=== PATIENT | male | born 1945 | race Caucasian/White ===

== ENCOUNTER 2024-04-25 15:46 | Inpatient (IN) ==
--- NOTE | 2024-04-25 16:31 | Emergency Department Note ---
Impression & Plan Acute dyspnea, Acute hypoxemic respiratory failure, Pulmonary edema, Supratherapeutic INR ED Provider Note HISTORY OF PRESENT ILLNESS: Patient is a 78-year-old male presenting with shortness of breath. Patient reports that he has been having progressively worsening shortness of breath over the last few days. He reports that he is from [place] and has not had any recent sick contact exposures that he is aware of. He does not wear any supplemental oxygen at baseline. Reports that today he was seen by an DIRECTOR OF STATE at [place] [facility] and they recommended he come to the emergency department. Patient reports shortness of breath is worse with exertion. Reports he is only able to take about 10 steps before he has to stop secondary to his shortness of breath. Denies any significant cough. Denies any chest pain. Denies any lightheadedness or dizziness with this shortness of breath. He is on Coumadin for history of A-fib. Denies any history of DVT or PE. Denies any history of cardiac stents. He denies any significant lower extremity edema. Patient reports he recently tested positive for C. difficile. He reports he finishes course of antibiotics 48 hours ago. Patient reports that he was told to hold his Coumadin because his INR levels were high today. ROS: as above PHYSICAL EXAM: Constitutional: Patient appears in no acute distress. HENT: Head: Normocephalic and atraumatic. Eyes: EOMI, PERRL Mouth/Throat: Mucous membranes moist. Neck: Trachea midline. Neck supple. Cardiovascular: Irregular rhythm. No murmurs, rubs or gallops. Intact distal pulses. Pulmonary/Chest: No respiratory distress. Decreased breath sounds throughout lung bean. Patient is conversationally dyspneic. Abdominal: Abdomen soft, no tenderness, rebound or guarding. Musculoskeletal: No edema, tenderness or deformity noted. Skin: Warm and dry. No rash, erythema, pallor or cyanosis Psychiatric: Appropriate mood and affect for situation. Neurological: Alert and keenly responsive. CN II-XII grossly intact, moving all extremities equally and fully. MDM: - Vitals signs showed hypoxic on room air. Patient placed on 6 L nasal cannula. - History obtained via patient. History as above. - Chronic conditions affecting care: HTN; Afib - Differential diagnoses include, but are not limited to: Congestive heart failure; acute coronary syndrome; COPD/asthma exacerbation; pulmonary edema; pulmonary embolism; pneumonia; pneumothorax; viral syndrome - Order placed for continuous cardiac monitoring. At this time, monitor showed rate of 79 bpm with normal sinus rhythm, per my interpretation. - External medical records reviewed. - EKG interpreted by myself showed atrial fibrillation. Rate 85 bpm. QT 460. No acute ischemic changes. - Laboratory workup interpreted by myself showed normal WBC; anemia (Hgb 9.4); elevated INR (9.2); stable electrolytes; normal troponin; elevated BNP (208) - Viral respiratory panel negative - CXR showed moderate pulmonary edema, per my interpretation. Radiology notes small bilateral pleural effusions and left greater than right perihilar airspace opacities. - UA negative for infection - Patient given 40 mg IV lasix for his pulmonary edema and increasing oxygen requirement. - Patient's oxygen requirement increased from 6 L nasal cannula to 9 L. He was attempted to be placed on BiPAP, but the patient did not tolerate. He was transition to high flow nasal cannula and is saturating 95% on room air. - Discussion was had with case assembler about patient's case and need for admission - Hospitalist consulted for admission - [facility]. I have personally spent 61 minutes of critical care time in the direct management of this patient. This includes bedside care, interpretation of diagnostic studies, and testing, discussion with consultants, patient, and family members, and other required patient management activities. This 61 minutes is in excess of all separately billable procedures. ASSESSMENT AND PLAN: Diagnosis: Acute dyspnea; acute hypoxic respiratory failure; pulmonary edema; supratherapeutic INR Plan: Admit Past Med/Surg History Problem List (Updated 04/25/24 @ 19:49 by Jill Brown PA-C) Supratherapeutic INR (Acute) Pulmonary edema (Acute) Acute hypoxemic respiratory failure (Acute) Acute dyspnea (Acute) Medical History (Updated 04/25/24 @ 19:49 by Jill Brown PA-C) Mild intermittent asthma PAF (paroxysmal atrial fibrillation) CAD (coronary artery disease) Squamous cell carcinoma of parotid Chronic CHF HTN (hypertension) HLD (hyperlipidemia) Surgical History (Updated 04/25/24 @ 19:50 by Jill Brown PA-C) Hx of fracture of hip Right s/p fixation Hx of tonsillectomy History of parotidectomy Left wide local excision, left parotidectomy, left neck dissection, submental island flap reconstruction, and STSG to the left ear canal on 04/27/23. - Final pathology [id number]. Tumor board recommendation for adjuvant radiation, compelted July 2023. - Reconstruction of left wound dehiscence with temporalis flap, postauricular cervicofacial advancement flap, and skin grafting on 12/12/23. Concurrent meatoplasty, canalplasty, and skin grafting with Dr. Garcia. Social History Smoking Status: Former smoker Feels Safe at Home: Yes Results & Data (ED) Vital Signs Vital Signs - 24 hr 04/25/24 16:04 04/25/24 16:36 04/25/24 16:48 Temperature 36.0 C L Temperature Source Temporal Artery Scan Pulse Rate 71 72 Pulse Rate [Apical] Pulse Rate from SpO2 Sensor 73 Respiratory Rate 24 35 H Respiratory Effort / Characteristics Non-Labored Spontaneous Respiratory Depth Normal Respiratory Pattern Regular Blood Pressure 120/64 145/73 H Blood Pressure Mean 82 122 Pulse Oximetry 93 84 L Oxygen Delivery Method Nasal Cannula Oxygen Flow Rate 6 Fraction of Inspired Oxygen Sepsis Recent Fever Within 48 Hours No Sepsis New/Unexplained Change in Mental Status No Sepsis Action Taken by Nursing No Action Required Oxygen Flow Rate - Titration Pulse Oximetry Post Tiitration 04/25/24 17:00 04/25/24 17:00 04/25/24 17:00 Temperature Temperature Source Pulse Rate 63 Pulse Rate [Apical] Pulse Rate from SpO2 Sensor 64 Respiratory Rate 24 Respiratory Effort / Characteristics Respiratory Depth Respiratory Pattern Blood Pressure 149/81 H 149/81 H Blood Pressure Mean 123 123 Pulse Oximetry 97 Oxygen Delivery Method Oxymask Oxygen Flow Rate 10 Fraction of Inspired Oxygen Sepsis Recent Fever Within 48 Hours Sepsis New/Unexplained Change in Mental Status Sepsis Action Taken by Nursing Oxygen Flow Rate - Titration Pulse Oximetry Post Tiitration 04/25/24 17:01 04/25/24 17:14 04/25/24 17:27 Temperature Temperature Source Pulse Rate 77 Pulse Rate [Apical] Pulse Rate from SpO2 Sensor 75 Respiratory Rate 22 Respiratory Effort / Characteristics Respiratory Depth Respiratory Pattern Blood Pressure Blood Pressure Mean Pulse Oximetry 76 L 93 92 Oxygen Delivery Method Oxymask Aerosol Mask Oxymask Oxygen Flow Rate 0 10 10 Fraction of Inspired Oxygen Sepsis Recent Fever Within 48 Hours Sepsis New/Unexplained Change in Mental Status Sepsis Action Taken by Nursing Oxygen Flow Rate - Titration 11 Pulse Oximetry Post Tiitration 90 04/25/24 17:31 04/25/24 17:34 04/25/24 17:36 Temperature Temperature Source Pulse Rate 79 Pulse Rate [Apical] 74 Pulse Rate from SpO2 Sensor 76 Respiratory Rate 22 14 Respiratory Effort / Characteristics Spontaneous Respiratory Depth Respiratory Pattern Blood Pressure 113/87 Blood Pressure Mean 89 Pulse Oximetry 95 Oxygen Delivery Method High Flow Nasal Cannula Oxygen Flow Rate 25 Fraction of Inspired Oxygen 70 Sepsis Recent Fever Within 48 Hours Sepsis New/Unexplained Change in Mental Status Sepsis Action Taken by Nursing Oxygen Flow Rate - Titration Pulse Oximetry Post Tiitration 04/25/24 18:00 04/25/24 18:01 04/25/24 18:31 Temperature Temperature Source Pulse Rate 66 Pulse Rate [Apical] Pulse Rate from SpO2 Sensor 65 Respiratory Rate 25 H Respiratory Effort / Characteristics Respiratory Depth Respiratory Pattern Blood Pressure 142/74 H 148/64 H Blood Pressure Mean 105 102 Pulse Oximetry 98 Oxygen Delivery Method Oxygen Flow Rate Fraction of Inspired Oxygen Sepsis Recent Fever Within 48 Hours Sepsis New/Unexplained Change in Mental Status Sepsis Action Taken by Nursing Oxygen Flow Rate - Titration Pulse Oximetry Post Tiitration 04/25/24 18:42 04/25/24 19:09 04/25/24 19:30 Temperature Temperature Source Pulse Rate 76 82 66 Pulse Rate [Apical] Pulse Rate from SpO2 Sensor 76 Respiratory Rate 23 23 Respiratory Effort / Characteristics Respiratory Depth Respiratory Pattern Blood Pressure Blood Pressure Mean Pulse Oximetry 98 97 Oxygen Delivery Method Oxygen Flow Rate Fraction of Inspired Oxygen Sepsis Recent Fever Within 48 Hours Sepsis New/Unexplained Change in Mental Status Sepsis Action Taken by Nursing Oxygen Flow Rate - Titration Pulse Oximetry Post Tiitration Laboratory Data 04/25/24 16:21 04/25/24 16:21 Lab Results 04/25/24 04/25/24 04/25/24 Range/Units 16:21 17:00 17:58 WBC 10.44 (4.8-10.8) K/ul RBC 3.46 L (4.70-6.10) M/uL Hgb 9.4 L (14.0-18.0) g/dl Hct 30.6 L (42.0-52.0) % MCV 88.4 (80.0-100.0) fL MCH 27.2 (25.0-34.0) pg MCHC 30.7 L (32.0-36.0) g/dL RDW Std Deviation 55.8 H (36.4-46.3) fL RDW Coeff of [place] 17.2 H (11.5-14.5) % Plt Count 262 (130-400) K/uL MPV 9.5 (9.4-12.4) fL Immature Gran % (Auto) 0.4 % Neut % (Auto) 76.2 % Lymph % (Auto) 6.2 % [place] % (Auto) 9.8 % Eos % (Auto) 6.8 % Baso % (Auto) 0.6 % Neut # (Auto) 7.96 H (1.40-6.50) K/uL Lymph # (Auto) 0.65 L (1.20-3.40) K/uL [place] # (Auto) 1.02 H (0.11-0.59) K/uL Eos # (Auto) 0.71 H (0.00-0.50) K/uL Baso # (Auto) 0.06 (0.00-0.20) K/uL Immature Gran # (Auto) 0.04 (0.01-0.20) K/uL PT 82.1 H (9.0-12.0) Seconds INR 9.2 H* (0.9-1.1) Sodium 140 (136-145) mmol/L Potassium 4.7 (3.5-5.1) mmol/L Chloride 106 (98-107) mmol/L Carbon Dioxide 25 (21-32) mmol/L Anion Gap 9 (3-11) BUN 32 H (6-23) mg/dl Creatinine 1.36 (0.6-1.4) mg/dl Est Cr Clr Drug Dosing Not Reportable Est GFR ( Amer) 57.8 ml/min Est GFR (Non-Af Amer) 49.8 ml/min BUN/Creatinine Ratio 23.5 H (10-20) Glucose 104 H (70-99(Fasting)) mg/dl Calcium 9.7 (8.6-10.3) mg/dl Magnesium 2.1 (1.7-2.4) mg/dl Total Bilirubin 0.6 (0.2-1.0) mg/dl AST 15 (13-39) U/L ALT 8 (7-52) U/L Alkaline Phosphatase 70 (34-104) U/L Troponin I High Sens 9.4 (0-20) pg/ml B-Natriuretic Peptide 208 H (0-100) pg/ml Total Protein 7.3 (6.0-8.3) gm/dl Albumin 3.8 (3.4-5.0) gm/dl Globulin 3.5 (2.5-4.0) gm/dl Albumin/Globulin Ratio 1.1 (0.9-2) Urine Color Yellow Urine Appearance Clear (Clear) Urine pH 5.0 (4.5-7.5) Ur Specific [place] 1.010 (1.000-1.030) Urine Protein Trace H (Negative) Urine Glucose (UA) Negative (Negative) Urine Ketones Negative (Negative) Urine Blood Negative (Negative) Urine Nitrite Negative (Negative) Urine Bilirubin Negative (Negative) Urine Urobilinogen Negative (Negative) Ur Leukocyte Esterase Negative (Negative) Urine WBC (Auto) 0-5 (0-5) /hpf Urine RBC (Auto) 0-2 (0-2) /hpf U Hyaline Cast (Auto) 0-2 (0-2) /lpf U Epithel Cells (Auto) 0-2 (0-2) /hpf Urine Bacteria (Auto) None Seen (None Seen) Adenovirus (PCR) Not Detected (NotDetected) B. pertussis DNA (PCR) Not Detected (NotDetected) B.parapertussis DNA PCR Not Detected (NotDetected) C. pneumoniae DNA (PCR) Not Detected (NotDetected) Coronavirus OC43 (PCR) Not Detected (NotDetected) Coronavirus HKU1 (PCR) Not Detected (NotDetected) Coronavirus 229E (PCR) Not Detected (NotDetected) SARS-CoV-2 (PCR) Not Detected (NotDetected) Coronavirus NL63 (PCR) Not Detected (NotDetected) Human Metapneumovir PCR Not Detected (NotDetected) Influenza Type A (PCR) Not Detected (NotDetected) Influenza Type B (PCR) Not Detected (NotDetected) M. pneumoniae (PCR) Not Detected (NotDetected) Parainfluenza 1 (PCR) Not Detected (NotDetected) Parainfluenza 2 (PCR) Not Detected (NotDetected) Parainfluenza 3 (PCR) Not Detected (NotDetected) Parainfluenza 4 (PCR) Not Detected (NotDetected) RSV (PCR) Not Detected (NotDetected) Entero/Rhino (PCR) Not Detected (NotDetected) Administered Medications Discontinued Medications Furosemide (Furosemide 40 Mg/4 Ml Vial) 40 mg IV ONE ONE Stop: 04/25/24 16:54 Last Admin: 04/25/24 17:05 Dose: 40 mg Documented By: BRUCE Imaging Data Radiologist's Impression: Chest X-Ray 04/25/24 16:15 XR chest 1V portable HISTORY: Dyspnea COMPARISON: None. FINDINGS: Rotated study. No pneumothorax. The heart is enlarged. There are low lung volumes. There is perihilar interstitial/vascular thickening consistent with pulmonary edema. There are small bilateral pleural effusions. No acute fractures identified. There are calcifications within the aortic knob. Left greater than right perihilar airspace opacities. IMPRESSION: 1. Cardiomegaly with moderate pulmonary edema and small bilateral pleural effusions. 2. Left greater than right perihilar airspace opacities. This likely represents asymmetric pulmonary edema. A superimposed pneumonia would be difficult to exclude. ACT 112: Negative or not required by law. Electronically signed by: Adal Aranda M.D. 04/25/2024 5:31 PM Discharge Plan Visit Data Chief Complaint: Shortness of Breath/Dyspnea Stated Complaint: SOB ED Provider: Ashlee Lau Discharge Problem: Acute dyspnea, Acute hypoxemic respiratory failure, Pulmonary edema, Supratherapeutic INR Forms Stand Alone Forms: [facility] Referrals Referrals: PCP,NO [Physician] -
[2024-04-25 16:47] LABS: Basophils # (auto) 0.06 K/uL (0.00-0.20); Basophils % (auto) 0.6 %; Eosinophils # (auto) 0.71 K/uL (0.00-0.50); Eosinophils % (auto) 6.8 %; Hematocrit (blood only) 30.6 % (42.0-52.0); Hemoglobin 9.4 g/dl (14.0-18.0); Immature Granulocytes # (auto) 0.04 K/uL (0.01-0.20); Immature Granulocytes % (auto) 0.4 %; Lymphocytes # (auto) 0.65 K/uL (1.20-3.40); Lymphocytes % (auto) 6.2 %; Mean Corpuscular Hemoglobin 27.2 pg (25.0-34.0); Mean Corpuscular Hgb Conc 30.7 g/dL (32.0-36.0); Mean Corpuscular Volume 88.4 fL (80.0-100.0); Mean Platelet Volume 9.5 fL (9.4-12.4); Monocytes # (auto) 1.02 K/uL (0.11-0.59); Monocytes % (auto) 9.8 %; Neutrophils # (auto) 7.96 K/uL (1.40-6.50); Neutrophils % (auto) 76.2 %; Platelet Count 262 K/uL (130-400); RDW Coefficient of Variation 17.2 % (11.5-14.5); RDW Standard Deviation 55.8 fL (36.4-46.3); Red Blood Count 3.46 M/uL (4.70-6.10); White Blood Count 10.44 K/ul (4.8-10.8)
[2024-04-25 16:51] LABS: Alanine Aminotransferase 8 U/L (7-52); Albumin Globulin Ratio 1.1 (0.9-2); Albumin Level 3.8 gm/dl (3.4-5.0); Alkaline Phosphatase 70 U/L (34-104); Anion Gap 9 (3-11); Aspartate Aminotransferase 15 U/L (13-39); BUN Creatinine Ratio 23.5 (10-20); Bilirubin,Total 0.6 mg/dl (0.2-1.0); Blood Urea Nitrogen 32 mg/dl (6-23); Calcium 9.7 mg/dl (8.6-10.3); Carbon Dioxide 25 mmol/L (21-32); Chloride 106 mmol/L (98-107); Est GFR (African American) 57.8 ml/min; Est GFR (Non-African American) 49.8 ml/min; Globulin 3.5 gm/dl (2.5-4.0); Glucose 104 mg/dl (70-99(Fasting)); Magnesium 2.1 mg/dl (1.7-2.4); Potassium 4.7 mmol/L (3.5-5.1); Sodium 140 mmol/L (136-145); Total Protein 7.3 gm/dl (6.0-8.3)
[2024-04-25 16:59] LABS: Troponin I High Sensitivity 9.4 pg/ml (0-20)
[2024-04-25 17:00] LABS: Prothrombin Time 82.1 Seconds (9.0-12.0)
[2024-04-25] MEDS: FUROSEMIDE 40 MG/4 ML VIAL IV ONE (17:05)
--- NOTE | 2024-04-25 17:33 | XRay Report ---
XR chest 1V portable HISTORY: Dyspnea COMPARISON: None. FINDINGS: Rotated study. No pneumothorax. The heart is enlarged. There are low lung volumes. There is perihilar interstitial/vascular thickening consistent with pulmonary edema. There are small bilatera l pleural effusions. No acute fractures identified. There are calcifications within the aortic knob. Left greater than right perihilar airspace opacities. IMPRESSION: 1. Cardiomegaly with moderate pulmonary edema and small bilateral pleural effusions. 2. Left greater than right perihilar airspace opacities. This likely represents asymmetric pulmonary edema. A superimposed pneumonia would be difficult to exclude. ACT 112: Negative or not required by law. Electronically signed by: Adal Aranda M.D. 04/25/2024 5:31 PM
[2024-04-25 17:38] LABS: INR 9.2 (0.9-1.1)
[2024-04-25 18:01] LABS: Adenovirus PCR Not Detected (NotDetected); Bordetella parapertussis PCR Not Detected (NotDetected); Bordetella pertussis PCR Not Detected (NotDetected); Chlamydia pneumoniae PCR Not Detected (NotDetected); Coronavirus 229E PCR Not Detected (NotDetected); Coronavirus CoV-2 (COVID19)PCR Not Detected (NotDetected); Coronavirus HKU1 PCR Not Detected (NotDetected); Coronavirus NL63 PCR Not Detected (NotDetected); Coronavirus OC43PCR Not Detected (NotDetected); Human Metapneumovirus PCR Not Detected (NotDetected); Influenza A PCR Not Detected (NotDetected); Influenza B PCR Not Detected (NotDetected); Mycoplasma pneumoniae PCR Not Detected (NotDetected); Parainfluenza Virus 1 PCR Not Detected (NotDetected); Parainfluenza Virus 2 PCR Not Detected (NotDetected); Parainfluenza Virus 3 PCR Not Detected (NotDetected); Parainfluenza Virus 4 PCR Not Detected (NotDetected); Respiratory Syncytial VirusPCR Not Detected (NotDetected); Rhinovirus/Enterovirus PCR Not Detected (NotDetected)
[2024-04-25 18:12] LABS: Appearance Urine Clear (Clear); Bacteria Urine Automated None Seen (None Seen); Bilirubin Urine Negative (Negative); Blood Urine Negative (Negative); Cast Urine Automated 0-2 /lpf (0-2); Color Urine Yellow; Epithelial Cell Urine Auto 0-2 /hpf (0-2); Glucose Urine UA Negative (Negative); Ketones Urine Negative (Negative); Leukocyte Esterase Urine Negative (Negative); Nitrite Urine Negative (Negative); Protein Urine Trace (Negative); RBC Urine Automated 0-2 /hpf (0-2); Urobilinogen Urine Negative (Negative); WBC Urine Automated 0-5 /hpf (0-5)
--- NOTE | 2024-04-25 19:50 | History & Physical Report ---
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 Garcia who presents to ED 2/2 worsening SOB over the last 3-4 days. Acute hypoxic respiratory failure Acute on chronic decompensated diastolic CHF Pulmonary Edema admit to PCU IV Lasix 40mg BID update echo, last in november with preserved EF, mod TR weights from [facility] show an increase in weight from 02/18 105kg --> 115kg, no weight on record here yet; clinically he is overloaded daily weights, I and O Pt refusing bipap, continue highflow for now, monitor vbg, consult cardiology pt previously on lasix 40mg daily; however at some point in the last 2 months this medication got discontinued; also reports 2 quarts of water a day Supratherapeutic INR PAF hold warfarin, give 2.5mg vit K, pt reports some blood in sputum continue metoprolol, tele monitoring HTN: chronic, stable - pt on amlodipine, lisinopril HLD: chronic, stable - continue statin Hx of SCC of L parotid s/p resection, radiation, wound dehiscence and eventual reconstruction, 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 DVT ppx: none in setting of supratherapeutic INR FULL CODE PCP: Mely Dispo: admit to pcu Pt was seen and examined in collaboration with Dr. Pineda, please see addendum A total of 76 min was spent coordinating, documenting, and providing care for this patient excluding time spent in the performance of separately billed services. This included personally viewing all current laboratories and imaging studies, medication reconciliation, outpatient chart review, and discussion with specialists. History of Present Illness Chief Complaint: SOB x 3 days. 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 Garcia who presents to ED 2/2 worsening SOB over the last 3-4 days. Of significance has had a recent course of hospitalizations including he was recently hospitalized at [facility] on 01/23-01/27/24 for wound dehiscence of left auricular wound and Left Mastoid OM. He required PICC Placement and IV antibiotic therapy. He grew multiple organisms including bacteroids fragilis, MRSA. He completed course of IV Vanco. He since had been following with wound care in [place]. He was hospitalized in [place] on 02/14-02/20 for stroke work up. At that time he was transitioned to IV meropenem and dapto per nephro recommendations due to CLAUDY. He was then discharged to [facility]. Since that time he did have an episode of Cdiff. Pt reports worsening SOB over the last few days. He has it with exertion and at rest. He complains of orthopnea. He reports he use to be on lasix 40mg, but at some point he was told to quit taking in over the last month after being in an out of hospital/rehabs. He denies any f/c/s, chest pain, n/v/d, abd pain, change in bowel or urinary habits. He does have a cough and complains of occasional blood tinge sputum over the last 6 days. He reports his INR was high as an outpt and he was told to hold warfarin for the next few days. He recently got out of rehab and moved back to his apartment in personal care. In ED pt was hypoxic on room air in the 70s. CXR concerning for pulmonary edema. Pt refusing bipap and thefore placed on high flow nasal canal with adequate oxygenation. Lab work reveals h/h 9.4 and 30.6, INR 9.2, cr 1.36, BNP 208, negative UA and negative biofire. He was given 40mg IV lasix in ED Home Medications Medication Instructions Recorded Confirmed Type amlodipine 10 mg tablet 10 mg PO DAILY 04/25/24 04/25/24 History atorvastatin 20 mg tablet 20 mg PO DAILY 04/25/24 04/25/24 History ergocalciferol (vitamin D2) 1,250 1,250 mcg PO MO 04/25/24 04/25/24 History mcg (50,000 unit) capsule (Vitamin D2) lisinopril 10 mg tablet 10 mg PO DAILY 04/25/24 04/25/24 History metoprolol succinate 25 mg 25 mg PO DAILY 04/25/24 04/25/24 History tablet,extended release 24 hr omeprazole 20 mg tablet,delayed 20 mg PO DAILY 04/25/24 04/25/24 History release warfarin 5 mg tablet 5 mg PO SUTUTHSA 04/25/24 04/25/24 History warfarin 5 mg tablet 7.5 mg PO MOWEFR 04/25/24 04/25/24 History Past Med/Surg History Problem List (Updated 04/25/24 @ 20:31 by Jill Brown PA-C) Acute on chronic diastolic CHF (congestive heart failure) Supratherapeutic INR (Acute) Pulmonary edema (Acute) Acute hypoxemic respiratory failure (Acute) Acute dyspnea (Acute) Medical History (Updated 04/25/24 @ 20:31 by Jill Brown PA-C) Mild intermittent asthma PAF (paroxysmal atrial fibrillation) CAD (coronary artery disease) Squamous cell carcinoma of parotid Chronic CHF HTN (hypertension) HLD (hyperlipidemia) Surgical History (Updated 04/25/24 @ 19:50 by Jill Brown PA-C) Hx of fracture of hip Right s/p fixation Hx of tonsillectomy History of parotidectomy Left wide local excision, left parotidectomy, left neck dissection, submental island flap reconstruction, and STSG to the left ear canal on 04/27/23. - Final pathology [id number]. Tumor board recommendation for adjuvant radiation, compelted July 2023. - Reconstruction of left wound dehiscence with temporalis flap, postauricular cervicofacial advancement flap, and skin grafting on 12/12/23. Concurrent meatoplasty, canalplasty, and skin grafting with Dr. Garcia. Social History (Updated 04/25/24 @ 20:29 by Jill Brown PA-C) Smoking Status: Former smoker Hx Alcohol Use: No Preferred Language: Malagasy Feels Safe at Home: Yes Review of Systems Review of Systems: All systems reviewed & are unremarkable except as noted in HPI & below Physical Exam Physical Exam: please refer to Dr. Pineda addendum for physical exam findings. Results & Data Results & Data Vital Signs (Past 12 Hours) Vital Signs Temp Pulse Pulse Resp BP Pulse Ox O2 Del Method 04/25/24 17:36 79 14 04/25/24 17:34 74 22 95 High Flow Nasal Cannula 04/25/24 17:31 113/87 04/25/24 17:27 77 22 92 Oxymask 04/25/24 17:14 93 Aerosol Mask 04/25/24 17:01 76 L Oxymask 04/25/24 17:00 63 24 97 Oxymask 04/25/24 17:00 149/81 H 04/25/24 17:00 149/81 H 04/25/24 16:48 145/73 H 04/25/24 16:36 72 35 H 84 L 04/25/24 16:04 36.0 C L 71 24 120/64 93 Nasal Cannula O2 Flow Rate FiO2 04/25/24 17:36 04/25/24 17:34 25 70 04/25/24 17:31 04/25/24 17:27 10 04/25/24 17:14 10 04/25/24 17:01 0 04/25/24 17:00 10 04/25/24 17:00 04/25/24 17:00 04/25/24 16:48 04/25/24 16:36 04/25/24 16:04 6 Laboratory Results I have independently reviewed and interpreted patient's admitting labs including CBC, CMP, BNP, Trop, UA and biofire Diagnostic Findings Chest X-Ray 04/25/24 16:15 XR chest 1V portable HISTORY: Dyspnea COMPARISON: None. FINDINGS: Rotated study. No pneumothorax. The heart is enlarged. There are low lung volumes. There is perihilar interstitial/vascular thickening consistent with pulmonary edema. There are small bilateral pleural effusions. No acute fractures identified. There are calcifications within the aortic knob. Left greater than right perihilar airspace opacities. IMPRESSION: 1. Cardiomegaly with moderate pulmonary edema and small bilateral pleural effusions. 2. Left greater than right perihilar airspace opacities. This likely represents asymmetric pulmonary edema. A superimposed pneumonia would be difficult to exclude. ACT 112: Negative or not required by law. Electronically signed by: Adal Aranda M.D. 04/25/2024 5:31 PM Medications Administered Medication List Discontinued Medications Furosemide (Furosemide 40 Mg/4 Ml Vial) 40 mg IV ONE ONE Stop: 04/25/24 16:54 Last Admin: 04/25/24 17:05 Dose: 40 mg Documented By: BRUCE ECG Additional Comments: I have independently reviewed and interpreted patient's admitting EKG which revealed: 85 atrial fib with pvc qtc 547, RBBB COVID-19 Results Results COVID-19 Adm Lab Results: RBC 3.46 M/uL (4.70-6.10) L 04/25/24 WBC 10.44 K/ul (4.8-10.8) 04/25/24 Hgb 9.4 g/dl (14.0-18.0) L 04/25/24 Hct 30.6 % (42.0-52.0) L 04/25/24 Plt Count 262 K/uL (130-400) 04/25/24 Neutrophils (%) (Auto) 76.2 % 04/25/24 Lymphocytes (%) (Auto) 6.2 % 04/25/24 Monocytes # (Auto) 1.02 K/uL (0.11-0.59) H 04/25/24 Eosinophils # (Auto) 0.71 K/uL (0.00-0.50) H 04/25/24 Immature Granulocyte % (Auto) 0.4 % 04/25/24 Neutrophils # (Auto) 7.96 K/uL (1.40-6.50) H 04/25/24 Lymphocytes # (Auto) 0.65 K/uL (1.20-3.40) L 04/25/24 Monocytes # (Auto) 1.02 K/uL (0.11-0.59) H 04/25/24 Eosinophils # (Auto) 0.71 K/uL (0.00-0.50) H 04/25/24 Basophils # (Auto) 0.06 K/uL (0.00-0.20) 04/25/24 Immature Granulocyte # (Auto) 0.04 K/uL (0.01-0.20) 4 Na 140 mmol/L (136-145) 04/25/24 K 4.7 mmol/L (3.5-5.1) 04/25/24 Cl 106 mmol/L (98-107) 04/25/24 CO2 25 mmol/L (21-32) 04/25/24 Anion Gap 9 (3-11) 04/25/24 BUN 32 mg/dl (6-23) H 04/25/24 Creatinine 1.36 mg/dl (0.6-1.4) 04/25/24 BUN/Creatinine Ratio 23.5 (10-20) H 04/25/24 Glucose Level 104 mg/dl (70-99(Fasting)) H 04/25/24 Ca 9.7 mg/dl (8.6-10.3) 04/25/24 Total Bilirubin 0.6 mg/dl (0.2-1.0) 04/25/24 AST/SGOT 15 U/L (13-39) 04/25/24 ALT/SGPT 8 U/L (7-52) 04/25/24 Alkaline Phosphatase 70 U/L (34-104) 04/25/24 Total Protein 7.3 gm/dl (6.0-8.3) 04/25/24 Albumin 3.8 gm/dl (3.4-5.0) 04/25/24 Globulin 3.5 gm/dl (2.5-4.0) 04/25/24 Albumin/Globulin Ratio 1.1 (0.9-2) 04/25/24 INR 9.2 (0.9-1.1) H* 04/25/24 Adenovirus (PCR) Not Detected (NotDetected) 04/25/24 B. parapertussis DNA (PCR) Not Detected (NotDetected) 01/11 B. pertussis DNA (PCR) Not Detected (NotDetected) 04/25/24 C. pneumoniae DNA (PCR) Not Detected (NotDetected) Coronavirus Type OC43 (PCR) Not Detected (NotDetected) 01/11 Coronavirus Type HKU1 (PCR) Not Detected (NotDetected) 01/11 Coronavirus Type 229E (PCR) Not Detected (NotDetected) 01/11 COVID-19 PCR Not Detected (NotDetected) 04/25/24 Coronavirus Type NL63 (PCR) Not Detected (NotDetected) 01/11 Human Metapneumovirus (PCR) Not Detected (NotDetected) 01/11 Influenza Virus Type A (PCR) Not Detected (NotDetected) Influenza Virus Type B (PCR) Not Detected (NotDetected) M. pneumoniae (PCR) Not Detected (NotDetected) 04/25/24 Parainfluenza Type 1 (PCR) Not Detected (NotDetected) 01/11 Parainfluenza Type 2 (PCR) Not Detected (NotDetected) 01/11 Parainfluenza Type 3 (PCR) Not Detected (NotDetected) 01/11 Parainfluenza Type 4 (PCR) Not Detected (NotDetected) 01/11 RSV (PCR) Not Detected (NotDetected) 04/25/24 Enterovirus/Rhinovirus (PCR) Not Detected (NotDetected) Chest X-Ray 04/25/24 Code Status & VTE Plan Code Status FULL CODE Supervising Physician Co-Signing Physician Notes Patient is a 78-year-old male with history of coronary artery disease, squamous cell carcinoma of the left parotid gland S/P surgery and radiation, paroxysmal A-fib on chronic anticoagulation with Coumadin, chronic diastolic heart failure and other medical problems presents with history of worsening shortness of breath for the last few days. He also admits to have orthopnea, cough with expectoration with minimal hemoptysis. He was previously on Lasix which was discontinued due to worsening renal function per patient. He follows with [facility] cardiology . He was noted to have supratherapeutic INR as outpatient today and was instructed to hold Coumadin. He denies any other bleeding issues currently. He was found to be hypoxic in 70s while in ED and was placed on high flow oxygen. Patient refused BiPAP due to claustrophobia. He denies any chest pain, nausea, vomiting, abdominal pain, diarrhea, and dizziness. Patient states that he has been drinking a lot of water postsurgery as instructed. Please review HPI for complete details of presentation. I personally reviewed blood work and imaging studies. His INR is supratherapeutic 9.2. BNP elevated 208. Chronic anemia hemoglobin 9.4. Chest x-ray suggestive moderate pulmonary edema, small bilateral pleural effusions, perihilar opacities . EKG showed A-fib with PVCs, right bundle branch block. Physical Exam: Vitals signs as noted above General Appearance: Chronically appearing, moderately built and nourished, mild respiratory distress, elderly Head: normocephalic, Atraumatic, + left parotid gland postsurgical findings Eyes: normal inspection, EOMI Neck: supple, Trachea midline Respiratory/Chest: Decreased breath sounds, basal crackles, No accessory muscle use Cardiovascular: Irregularly irregular, No murmur Abdomen/GI:Soft, Non tender, Bowel sounds present Extremities/Musculoskeletal:normal inspection, 2+ B/L LE edema, chronic venous stasis changes Neurologic/Psych:AAOX3, grossly no focal neurological deficits Skin: normal color, warm Acute respiratory failure with hypoxia Acute on chronic diastolic heart failure Supratherapeutic INR Chronic atrial fibrillation Chronic normocytic anemia Agree with IV Lasix, I's and O's, daily weight Continue metoprolol, lisinopril Update echo, cardiology consulted Continue high flow oxygen as patient refused BiPAP Patient also refused Garner catheter while in ED Will check procalcitonin, consider antibiotics if elevated Given a dose of vitamin K given minimal hemoptysis Monitor INR, hold Coumadin for now Anemia workup ordered Fluid restriction I personally interviewed and examined at bedside. Patient's care is coordinated with Jill Brown PA-C. I have reviewed the advanced practitioner's documentation, and I agree with plan of care. Please refer to the documentation above for details of patient's presentation and for discussion of other issues. I spent a total [id number] coordinating, documenting, and providing care for this patient excluding time spent in the performance of separately billed services.
[2024-04-25] MEDS ORDERED: ALBUT/IPRATROP 3MG/0.5MG NEB 3 ML VIAL NEB PRN (20:50)
[2024-04-25] MEDS: Patient's ALLERGY Info needs ENTERED SCH (21:05)
[2024-04-25] MEDS: Patient's HEIGHT &/or WEIGHT Needed SCH (21:09)
[2024-04-25] MEDS: PHYTONADIONE 2.5 MG in DEXTROSE 5% 50 ML IV ONE (21:09)
[2024-04-25] MEDS ORDERED: SODIUM CHLORIDE 0.9% 250 ML IV PRN (21:35)
[2024-04-25] MEDS: ACETAMINOPHEN 325 MG TAB PO PRN (21:51)
[2024-04-25] MEDS: FUROSEMIDE 40 MG/4 ML VIAL IV STA (22:40)
--- OUTSIDE RECORDS SUMMARY | 2024-04-25 23:44 | External Medical Summary ---
Author Name Unknown Address Unknown Organization [id number]:[facility] - [address] [place] [id number] Laboratory Report Ordering Provider Test Date Status CHERI CARTER 04/11/2024 06:05:00 Final Warfarin Therapy
INR: 2 .0-3.0 conventional anticoagulation
INR: 2.5- 3.5 high intensity anticoagulation Observation Date Value Abnormality Reference (Units ) Status PT 04/11/2024 06:05:00 29.2 Above high normal 11 .6-15.2 (seconds) Final INR 04/11/2024 06:05:00 2.7 Above high normal 0. 8-1.2 Final Performing Location [facility] - [address] [id number]
--- OUTSIDE RECORDS SUMMARY | 2024-04-25 23:44 | External Medical Summary | Summary of Care ---
Author Name Unknown Organization [facility] Address [address] [facility] [place] [address] Phone [phone] Care Team Providers Care Pre Sales Network Engineer Name Role Phone Jad Boone MD Primary Care Provider Reason for Visit * Reason Comments Dosage Adjustment Via Phone (anticoag Cl inic) Encounter Details Date Type Department Care Team (Late st Contact Info) Description 04/11/2024 6:15 PM EDT Anticoagulation [facility] Services, Sandra Gómez [address] [place] [address] [place] [address] [facility], [address] [place] [address] PAF (paroxysmal atrial fibrillation) ([facility])* Allergies Active Allergy Reactions Criticality Noted Date Comments Bee Venom Hives High 03/14/2017 documented as of this encounter (statuses as of 04/11/2024) Medications Medication Sig Dispensed Refills Start Date End Date Status Omeprazole 20 MG Oral Capsule Delayed Release (PriLOSEC) Take 1 Capsule by mouth in the morning. 90 Capsule 1 11/15/2022 Active Multivitamin Adult Oral Tablet Take by mouth every evening. Active Metoprolol Succinate ER 25 MG Oral Tablet Extended Release 24 Hour (Toprol XL)Indications:Chr onic diastolic CHF (congestive heart failure) ([facility]) Take 1 Tablet by mouth in the morning. 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 Active Magnesium Hydroxide 400 MG/5ML Oral Suspension (Milk of Magnesia) Take 30 mL by mouth daily as needed for Constipation. Active Sennosides-Docusat e Sodium 8.6-50 MG Oral Tablet (Senna S) Take 1 Tablet by mouth daily as needed for Constipation. Active Polyethylene Glycol 3350 17 GM/SCOOP Oral Powder (MiraLax) Take 17 g by mouth daily as needed for Constipation. Active Sodium Hypochlorite 0.25 % External Solution Apply topically to affected area every 12 hours. 473 mL 01/26/2024 Active Bisacodyl 10 MG Rectal Suppository (Bisacodyl Laxative) Insert 1 suppository rectally every 72 hours as needed for constipation if MoM is ineffective (bowel Protocol) 02/05/2024 Active EpiPen 2-Brian 0.3 MG/0.3ML Injection Solution Auto-injector Inject 1 dose intramuscularly as needed for anaphylaxis (H/O bee sting allergy) 02/05/2024 Active Fleet Enema Rectal Enema Insert 1 dose rectally every 72 hours as needed for constipation *if Dulcolax is ineffective* (bowel protocol) 02/05/2024 Active Acetaminophen 325 MG Oral Tablet (Tylenol) Take 2 Tablets by mouth every 4 hours as needed for Pain, Mild, Pain, Moderate or Fever >38C(100.5F). 30 Tablet 02/21/2024 Active Chlorhexidine Gluconate Cloth 2 % External Pad Apply to wound Do not start before February 22, 2024. 30 Pad 1 02/22/2024 Active Miconazole Nitrate 2 % External Powder (Remedy) Apply topically to affected area 2 times a day. Apply to affected area 71 g 02/21/2024 Active Vitamin D3 1.25 MG (45072 UT) Oral Capsule Take 1 Capsule by mouth once a week. Every Monday 12 Capsule 02/21/2024 Active oxyCODONE HCl 5 MG Oral Capsule (Oxy IR) Take 1 Capsule by mouth every 6 hours as needed for Pain, Moderate or Pain, Severe. 10 Tablet 02/21/2024 Active Probiotic Oral Tablet Delayed ReleaseIndications :Watery diarrhea Please dispense one generic probiotic tablet, to take three times a day, with food, for 14 days. 42 Tablet 04/05/2024 Active Vancomycin HCl 125 MG Oral Capsule (Vancocin) Take 2 Capsules by mouth every 6 hours for 7 days. For 7 days 56 Capsule 04/05/2024 Active Warfarin Sodium 5 MG Oral Tablet (Coumadin) Take 1 Tablet by mouth every evening. As per anti-coagulation clinic. 100 Tablet 1 04/08/2024 Active guaiFENesin 400 MG Oral Tablet Take 1 Tablet by mouth every 4 hours as needed. Active documented as of this encounter (statuses as of 04/11/2024) Active Problems Problem Noted Date Diagnosed Date PICC (peripherally inserted central catheter) in place 02/15/2024 Status post incision and drainage 01/28/2024 Delayed wound healing 01/25/2024 Primary squamous cell carcinoma of parotid gland 10/04/2023 Primary squamous cell carcinoma of head and neck 04/27/2023 Other specified anemias 03/29/2022 Chronic diastolic CHF (congestive heart failure) 03/16/2022 Essential hypertension with goal blood pressure less than 140/90 03/16/2022 Dyslipidemia, goal LDL below 70 03/16/2022 Atypical migraine 03/16/2022 Other specified peripheral vascular diseases Mild intermittent asthma without complication PAF (paroxysmal atrial fibrillation) 10/18/2018 Coronary artery disease invo lving [place] coronary artery without angina pectoris 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 0 05/01/2014 Overview: ICD-10 update of inactive term Heart failure, systolic, due to CAD 08/28/2012 Overview: ECHO 2011 - Segmental wall abnormality, severe hypokinesis of anterior septum, anterior wall, apex, distal inferior septum, distal inferior wall, and distal posterior wall EF 33% Mass of left parotid gland documented as of this encounter (statuses as of 04/11/2024) Resolved Problems Problem Noted Date Diagnosed Date Resolved Date CLAUDY (acute kidney injury) 02/15/2024 Encephalopathy acute 02/15/2024 024 Dysarthria 02/15/2024 04/08/2024 Expressive aphasia 02/15/2024 Surgical site infection 01/28/202403/21 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 ". Closed T10 spinal fracture 03/28/2023 1 10/17/2022 Heart failure, diastolic, wi th acute decompensation 03/28/2023 08/16/2023 Symptomatic anemia 04/02/2022 2 Acute blood loss anemia 04/02/202210/20 Hypoxia 03/31/2022 04/02/2022 Suspected sleep apnea 03/31/20222023 TILLEY (dyspnea on exertion) 03/29/2022 Adrenal hemorrhage 09/11/2020 3 Supratherapeutic INR 09/11/2020 022 Migraine without status migr ainosus, not intractable 05/01/2020 03/16/2022 Morbid obesity with body mas s index of 40.0-44.9 in adult 10/29/2019 09/16/2020 Body mass index (BMI) of 40. 0 to 44.9 in adult 02/25/2019 10/15/2019 Overview: Per Obesity protocol More specific code recommended. Prediabetes 11/26/2018 03/16/2022 Overview: Per Prediabetes protocol #1 Episodic cluster headache, not intractable 09/16/2016 03/16/2022 Cardiac LV ejection fraction 30-35% 01/07/2015 10/18/2018 HTN, goal below 140/90 01/07/201501/07 Secondary hypercoagulable state 05/01/2014 03/14/2017 Unspecified pleural effusion 05/01/2014 01/07/2015 Atrial fibrillation 08/28/2012 04/18/20 Cellulitis and abscess of leg, except foot 08/28/2012 01/07/2015 Facial mass 08/16/2023 documented as of this encounter (statuses as of 04/11/2024) Immunizations Name Administration Dates Next Due COVID-19 mRNA, LNP-s, No Pre serve, 2-Dose Series (Mobi-Moto) 11/26/2020,11/05/2020 Pneumococcal Conjugate Vacc, 13 Valent (Prevnar) 03/09/2016 Pneumococcal Polysaccharide PPV23 (Pneumovax) 08/23/2012 Season Influenza, Quad, PF, Adjuvanted, 65+ Yrs, IM (FLUAD) 05/01/2020 Seasonal Influenza, PF, 6 M & above, IM , (FluLaval or Fluzone) 04/30/2018 Seasonal Influenza, Quadriva lent Hd (Fluzone Hd) 05/30/2023,05/18/2022,06/17/2021 Seasonal Influenza, Quadriva lent, No Preserve, IM 05/02/2017,05/10/2016 Seasonal Influenza, Split, I IV3, With Preserve, Inj 05/01/2014 Seasonal Influenza, Trivalen t, Adjuvanted, 65+ yrs 04/29/2019 Seasonal Influenza, Trivalen t, High Dose, No Preserve, IM 04/28/2015 TDAP (age 10 and older)(Boostrix) 09/14/2016 Varicella Zoster Vaccine (Adult) 05/01/2014 documented as of this encounter Social History Tobacco Use Types Packs/Day Years Used Date Smoking Tobacco: Former Cigarettes Q uit: 2004 Passive Smoke Exposure: Past Smokeless Tobacco: Never Comments:smoked, and quit in 2003 Alcohol Use Standard Drinks/Week Comments No 0 (1 standard drink = 0.6 oz pur e alcohol) PHQ-2 Answer Date Recorded PHQ Adult Total Score 0 09/18/2023 Hunger Vital Sign Answer Date Recorded Within the past 12 months, y ou worried that your food would run out before you got the money to buy more. Never true 10/10/19 Within the past 12 months, t he food you bought just didn't last and you didn't have money to get more. Never true 10/10/2023 Childcare Answer Date Recorded Do you feel overwhelmed with taking care of a child, family member or friend? No 10/10/2023 Does your family need help f inding childcare? (Household - for ages 0-17 years) Not on file 10/10/2023 Clothing Answer Date Recorded Have you been unable to get clothing when it was really needed? No 10/10/2023 Is your family able to get c lothes or diapers when needed? (Household - for ages 0-17 years) Not on file 10/10/2023 Personal Safety Answer Date Recorded Do you feel unsafe or have concerns for your saf ety? No 12/13/2023 Do you have concerns for you r family's safety? (Household - for ages 0-17 years) Not on file 12/13/2023 Utilities Answer Date Recorded Do you have trouble paying y our heating, water, or electric bill? No 12/13/2023 Is your family able to pay t he heat, water, or electric bill? (Household - for ages 0-17 years) Not on file 12/13/2023 Does your family have access to good internet? (Household - for ages 0-17 years) Not on file 12/13/2023 Employment Status Answer Date Recorded Are you unemployed or without regular income? No 10/10/2023 Does the household have a re lar source of income? (Household - for ages 0-17 years) Not on file 10/10/2023 Social Connections Answer Date Recorded How often do you feel lonely or isolated from th ose around you? Never 10/10/2023 Financial Resource Strain Answer Date R ecorded Do you have any trouble payi ng for your medications, or do you think you might in the future? No 10/10/2023 Does your family have troubl e paying for medicine? (Household - for ages 0-17 years) Not on file 10/10/2023 Transportation Needs Answer Date Record ed READ ONLY Do you have troubl e getting a ride to medical visits or work? Never True 12/13/2023 Does your family have a hard time getting a ride to doctors visits? (Household - for ages 0-17 years) Not on file 12/13/2023 Has lack of transportation k ept you from medical appointments, meetings, work, or from getting things needed for daily living? Check all that apply. (Adult - for ages 18 years and over) Not on file 12/13/2023 Do you (or your family) have trouble finding or paying for a ride (transportation)? (Household - for ages 0-17 years) Not on file 12/13/2023 Housing Stability Answer Date Recorded Do you currently live in a s helter or have no steady place to sleep at night? No 12/13/2023 READ ONLY Do you think you a re at risk of becoming homeless? No 12/13/2023 Does your family worry about paying for your home or becoming homeless? (Household - for ages 0-17 years) Not on file 0 12/13/2023 Are you homeless or worried that you might be in the future? (Adult - for ages 18 years and over) Not on file Are you (or your family) evaristo eless or worried that you might be in the future? (Household - for ages 0-17 years) Not on file Food Insecurity Answer Date Recorded Do you need food for this week? No 12/13/2023 Are you able to get enough f ood for your family? (Household - for ages 0-17 years) Not on file 12/13/2023 Does your family need food t his week? (Household - for ages 0-17 years) Not on file 12/13/2023 Do you always have enough fo od for your family? (Household - for ages 0-17 years) Not on file 12/13/2023 Sex and Gender Information Value Date Recorded Sex Assigned at Male 10/29/2019 3:05 PM EDT Gender Identity Male 10/29/2019 3:05 PM EDT Sexual Orientation Straight 10/29/2019 3: 05 PM EDT Job Start Date Occupation Industry Not on file Not on file Not on file documented as of this encounter Functional Status Functional Status Response Date of Assess ment Are you deaf or do you have serious difficulty hearing? Yes-No hearing aids 01/24/2024 Are you blind or do you have serious difficulty seeing, even when wearing glasses? No 04/26/20 23 Do you have serious difficul ty walking or climbing stairs? (5 years old or older) Yes 01/24/2024 Do you have difficulty dress ing or bathing? (5 years old or older) No 01/24/2024 Because of a physical, menta l, or emotional condition, do you have difficulty doing errands alone such as visiting a doctor s office or shopping? (15 years old or older) Yes 01/24/20 24 Cognitive Status Response Date of Assessm ent Because of a physical, menta l, or emotional condition, do you have serious difficulty concentrating, remembering, or making decisions? (5 years old or older) No 01/24/2024 documented as of this encounter Progress Notes * Lamar Early CPhT - 04/11/2024 12:11 PM EDT Contacts Type Contact Phone/Fax 04/11/2024 12:09 PM EDT Phone (Outgoing) Stephen Varela (Self) [phone] (M) Spoke to Patient Subjective Patient Findings Negatives: Signs/symptoms of bleeding, Change in health, Change in activity, Upcoming invasive procedure, Missed doses, Extra doses, Change in medications, Change in diet/appetite, Bruising Advised patient to contact Anticoagulation Clinic if any unusual bruising or bleeding, recent illness, changes in medication, or questions/concerns. PT/INR results, Coumadin dose instructions, and next PT/INR date communicated as noted by Pharmacist: Yes LAMAR EARLY CPhT 04/11/2024, 12:11 PM * Alyson Salinas [facility] - 04/11/2024 10:55 AM EDT Coumadin Clinic (region specific) Objective Current Warfarin Dose As of 04/11/2024 Warfarin maintenance plan: 7.5 mg (1 mg x 7.5) every Mon, Wed, Fri; 5 mg (1 mg x 5) all other days INR Result As of 04/11/2024 INR goal: 2.0-3.0 INR used for dosin.7 (04/11/2024) Assessment & Plan Warfarin Plan As of 04/11/2024 Full warfarin instructions: 7.5 mg every Mon, Wed, Fri; 5 mg all other days No change documented: Alyson Salinas RPh Next INR check: 04/18/2024 Repeat PT/INR in 1 week(s) Weekly dose: not changed Additional Dosing Information: Description Call patient while at [facility] AND fax Facility at [phone] Cefepime and Vanco until 03/07/24 (getting weekly labs)- Changed to Dapto + Meropenem 02/15/24 pt started multivitamin around beginning october Tech to contact patient with dose instructions as noted. Alyson Salinas RPh 04/11/2024, 10:55 AM documented in this encounter Plan of Treatment Upcoming Encounters Date Type Department Care Team (Late st Contact Info) Description 05/02/2024 9:40 AM EDT Nurse Only Ancillary, [place] [id number] [place] [address] [place], Nurse, RN [facility] [place] [address] 05/06/2024 9:00 AM EDT [facility] [address] [facility] [address] Hermes Noble MD [address] [place] [address] 06/06/2024 9:30 AM EDT [address], [address] [address] Yas Mckinnon CRNP [address] [facility] [place] [address] 07/23/2024 9:30 AM EST Office Visit Radiation Oncology, [facility] [address] [place] [address] IovoliKo MD [address] [place] [address] 11/06/2024 12:20 PM EDT Office Visit [facility] [address] [place] [id number] Jad Boone MD [address] [facility] [address] [place] [address] Health Maintenance Due Date Last Done Comments Albumin/Creatinine Ratio 1963 Hepatitis C Screening 1963 Adult Wellness Visit 2012 Zoster Vaccines (2 of 3) 06/26/2014 05/01/2014 *SPIROMETRY ONCE FOR ASTHMA-ADULT 07/14/2022 COVID-19 Vaccine ( season) 2023 06/01/2023, 06/01/2023, 06/09/2022, Additional history exists Influenza Vaccine (FLU shot) (#1) 2024 05/30/2023, 05/30/2023, 05/18/2022, Additional history exists Depression Screening 09/18/2024 09/18/2023 GFR 04/03/2025 04/03/2024, 08/0 02/2024, 03/18/2024, Additional history exists DTaP,Tdap,and Td Vaccines (2 - Td or Tdap) 09/14/2026 09/14/2016 Pneumococcal Vaccine: 65+ Years Completed 04/17/2023, 03/09/2016, 08/23/2012 Colonoscopy Discontinued HPV (Gardasil) Vaccine Aged Out No lo nger eligible based on patient's age to complete this topic Hepatitis B Vaccine Aged Out No longe r eligible based on patient's age to complete this topic MENINGOCOCCAL (MENACTRA/MENVEO) Aged Out No longer eligible based on patient's age to complete this topic documented as of this encounter Medical Devices Implanted Type Area Laboratory Apparatus Glass Blower Device Identifier Shelf Expiration Date Model / Serial / Lot Connector Nerve 2mm 15mm - [id number] Implanted:Qty : 1 on 04/27/2023 by Dud[place] H[place]josa [place] [facility] [place] Face [employer] [id number] 12/24/2024 [id number] / / [id number] Alloderm 4x7 Thin 0.8-1.2 (28 Units) - [id number] - [id number] Implanted:Qty : 28 on 04/27/2023 by Dudley Hinojosa MD [place] [facility] [place]: Face ABBVIE 12/18/2024 [id number] / [id number] / [id number] Sheeting Monisha 2x3in X.020in - [id number] Implanted:Qty : 1 on 04/27/2023 by Dudley Hinojosa MD [place] [facility] [place]: Ear [employer] 09/25/2024700-20 / / [id number] Sheeting Monisha 2x3 In X.005in - [id number] Implanted:Qty : 1 on 12/12/2023 by Gurvinder Garcia MD [place] [facility]: Ear [employer] 04/05/2026700-05 / / [id number] Cath Pwr Picc Solo Inj 4f - [id number] Implanted:Qty : 1 on 01/26/2024 at [facility] CR BARD : [employer] [id number] 06/20/2025 [id number] / / [id number] documented as of this encounter Visit Diagnoses Diagnosis PAF (paroxysmal atrial fibrillation) (HCC)- Primary Atrial fibrillation documented in this encounter Additional Health Concerns Infection Onset Date Last Indicated Resolved Time C. 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 Question Answer Comments Discussion of Advance Directives occurred with: Patient * Full Code Date Activated Date Inactivated Comments 01/24/2024 3:08 PM 01/27/2024 6:56 PM This order ref lects the patients wishes and were consensually agreed upon. Question Answer Comments Discussion of Advance Directives occurred with: Patient * Full Code Date Activated Date Inactivated Comments 12/12/2023 9:52 PM 12/16/2023 3:10 PM This order r eflects the patients wishes and were consensually agreed upon. Question Answer Comments Discussion of Advance Direct jeff occurred with: Not Discussed due to patient's condition * Full Code Date Activated Date Inactivated Comments 04/26/2023 8:55 PM 05/01/2023 5:21 PM This order re flects the patients wishes and were consensually agreed upon. Question Answer Comments Discussion of Advance Direct jeff occurred with: Not Discussed due to patient's condition * Full Code Date Activated Date Inactivated Comments 03/27/2023 2:01 AM 04/03/2023 8:44 PM Question Answer Comments Discussion of Advance Direct jeff occurred with: Not Discussed due to patient's condition Healthcare Agents on File Name Relationship Healthcare Agent Relationshi p Communication [facility] Adult Child Power of [place] Operator Care Teams Pre Sales Network Engineer Relationship Specialty Start Date End Date Jad Boone MD [address] [facility] [place] [address] PCP - General Family Medicine 09/20/23 documented as of this encounter
--- OUTSIDE RECORDS SUMMARY | 2024-04-25 23:44 | External Medical Summary ---
Author Name Unknown Address Unknown Organization K1F:[facility] - [address] [place] [address] Laboratory Report Ordering Provider Test Date Status CHERI CARTER 04/25/2024 06:37:00 Final Warfarin Therapy
INR: 2 .0-3.0 conventional anticoagulation
INR: 2.5- 3.5 high intensity anticoagulation Observation Date Value Abnormality Reference (Units ) Status PT 04/25/2024 06:37:00 56.9 Above high normal 11 .6-15.2 (seconds) Final Results rechecked. INR 04/25/2024 06:37:00 6.3 Above upper panic li mits 0.8-1.2 Final Results rechecked. Performing Location [facility] - [address] [place] [address]
--- OUTSIDE RECORDS SUMMARY | 2024-04-25 23:44 | External Medical Summary ---
Author Name Unknown Address Unknown Organization K1F:[facility] - [address] [address] Laboratory Report Ordering Provider Test Date Status CHERI CARTER 04/18/2024 06:25:00 Final Warfarin Therapy
INR: 2 .0-3.0 conventional anticoagulation
INR: 2.5- 3.5 high intensity anticoagulation Observation Date Value Abnormality Reference (Units ) Status PT 04/18/2024 06:25:00 38.9 Above high normal 11 .6-15.2 (seconds) Final INR 04/18/2024 06:25:00 3.9 Above high normal 0. 8-1.2 Final Performing Location [facility] - [address] [address]
--- OUTSIDE RECORDS SUMMARY | 2024-04-25 23:44 | External Medical Summary | Summary of Care ---
Author Name Unknown Organization [facility] Address [address] [facility] [place] [address] Phone [phone] Care Team Providers Care Carpenter Assistant Name Role Phone Jad Boone MD Primary Care Provider Reason for Visit * Reason Comments Dosage Adjustment Via Phone (anticoag Cl inic) Encounter Details Date Type Department Care Team (Late st Contact Info) Description 04/25/2024 5:20 PM EDT Anticoagulation Centralized Clinical Pharmacy Services, Sandra Gómez [address] [place] [address] [place] [address] [facility], [address] [place] [address] PAF (paroxysmal atrial fibrillation) ([facility])* Allergies Active Allergy Reactions Criticality Noted Date Comments Bee Venom Hives High 03/14/2017 documented as of this encounter (statuses as of 04/25/2024) Medications Medication Sig Dispensed Refills Start Date End Date Status Omeprazole 20 MG Oral Capsule Delayed Release (PriLOSEC) Take 1 Capsule by mouth in the morning. 90 Capsule 1 11/15/2022 Active Multivitamin Adult Oral Tablet Take by mouth every evening. Active Metoprolol Succinate ER 25 MG Oral Tablet Extended Release 24 Hour (Toprol XL)Indications:Chr onic diastolic CHF (congestive heart failure) ([facility]) Take 1 Tablet by mouth [...] g 02/21/2024 Active Vitamin D3 1.25 MG (76646 UT) Oral Capsule Take 1 Capsule by [...] for 14 days. 42 Tablet 04/05/2024 Active Warfarin Sodium 5 MG Oral Tablet (Coumadin) Take 1 Tablet by mouth every evening. As per anti-coagulation clinic. 100 Tablet 1 04/08/2024 Active guaiFENesin 400 MG Oral Tablet Take 1 Tablet by mouth every 4 hours as needed. Active Vancomycin HCl 125 MG Oral Capsule (Vancocin) Take 2 Capsules by mouth every 6 hours. 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 0 05/01/2014 Overview: ICD-10 update of inactive term Heart failure, systolic, due to CAD 08/28/2012 Overview: ECHO 2011 - Segmental wall abnormality, severe hypokinesis of anterior septum, anterior wall, apex, distal inferior septum, distal inferior wall, and distal posterior wall EF 33% Mass of left parotid gland documented as of this encounter (statuses as of 04/25/2024) Resolved Problems Problem Noted Date Diagnosed Date Resolved Date CLAUDY (acute kidney injury) 02/15/2024 Encephalopathy acute 02/15/2024 024 Dysarthria 02/15/2024 04/08/2024 Expressive aphasia 02/15/2024 4 Surgical site infection 01/28/202403/21 Squamous cell carcinoma [...] as of this encounter (statuses as of 04/25/2024) Immunizations Name Administration Dates Next Due COVID-19 mRNA, LNP-s, No Pre serve, 2-Dose Series (Pfizer) 11/26/2020,11/05/2020 Pneumococcal Conjugate Vacc, 13 Valent (Prevnar) 03/09/2016 Pneumococcal Polysaccharide PPV23 (Pneumovax) 08/23/2012 Season Influenza, Quad, PF, Adjuvanted, 65+ Yrs, IM (FLUAD) 05/01/2020 Seasonal Influenza, High Dos e, Trivalent, PF, IM (Fluzone HD) 04/28/2015 Seasonal Influenza, PF, 6 M & above, IM , (FluLaval or Fluzone) 04/30/2018 Seasonal Influenza, Quadriva lent Hd (Fluzone Hd) 05/30/2023,05/18/2022,06/17/2021 Seasonal Influenza, Quadriva lent, No Preserve, IM 05/02/2017,05/10/2016 Seasonal Influenza, Trivalen t, (IIV3), with Preserv, (Fluzone) 05/01/2014 Seasonal Influenza, Trivalen t, Adjuvanted, 65+ YRS, PF, (Fluad) 04/29/2019 TDAP (age 10 and older)(Boostrix) 09/14/2016 Varicella Zoster Vaccine (Adult) 05/01/2014 documented as of this encounter Social History Tobacco Use Types Packs/Day Years Used Date Smoking Tobacco: Former Cigarettes Q uit: 2003 Passive Smoke Exposure: Past Smokeless Tobacco: Never [...] No 10/10/2023 Does the household have a [facility] source of income? (Household - for ages [...] as of this encounter Progress Notes * Alyson Salinas, [facility] - 04/25/2024 11:38 AM EDT Images from the original note were not included. Medication Therapy Disease Management - Anticoagulation Patient: Stephen Singh Avery | : 1945 Subjective Contacts Contact Date/Time Type Contact Phone/Fax 04/25/2024 11:39 AM EDT Phone (Outgoing) Avery Stephen Singh (Self) [phone] (M) Spoke to Patient Patient-Reported Symptoms: Patient Findings Negatives: Signs/symptoms of thrombosis, Signs/symptoms of bleeding, Change in health, Change in alcohol use, Change in activity, Upcoming invasive procedure, Missed doses, Extra doses, Change in medications, Change in diet/appetite, Bruising Comments: Recent C diff infection with course of Vancomycin, now complete. Pt states mucus has beenslightly blood tinged but no other signs of bleeding. Pt recently not eating as much as normal due to not feeling well. Advised to contact us sooner with any changes. Objective Current Warfarin Dose As of 04/25/2024 Warfarin maintenance plan: 7.5 mg (1 mg x 7.5) every Mon, Wed, Fri; 5 mg (1 mg x 5) all other days INR Result As of 04/25/2024 INR goal: 2.0-3.0 INR used for dosin.3 (04/25/2024) Assessment & Plan Warfarin Plan As of 04/25/2024 Full warfarin instructions: 04/25: Hold; 04/26: Hold; 04/27: Hold; Otherwise 7.5 mg every Mon, Wed, Fri; 5 mg all other days Next INR check: 04/30/2024 Repeat PT/INR in 5 day(s) Weekly dose: not changed Additional Dosing Information: Description Call patient while at [facility] AND fax Facility at [phone] Cefepime and Vanco until 03/07/24 (getting weekly labs)- Changed to Dapto + Meropenem 02/15/24 pt started multivitamin around beginning of October Alyson Salinas [facility] Clinical Pharmacist 04/25/2024, 11:39 AM documented in this encounter Plan of Treatment Upcoming Encounters Date Type Department Care Team (Late st Contact Info) Description 05/02/2024 9:40 AM EDT Nurse Only Ancillary, [place] [id number] [place] [address] [place], Nurse, RN [address] [place] [address] 05/06/2024 9:00 AM EDT Office Visit Wound Care, [facility] [address] [place] [address] Hermes Noble MD [address] [place] [address] [place] [address] 06/06/2024 9:30 AM EDT Office Visit Cardiology, [place] [address] [facility] [place], [place] [phone] Yas Mckinnon CRNP [address] [place] [address] 07/23/2024 9:30 AM EST Office Visit Radiation Oncology, [facility] [address] [facility] [address] IovolKo aleman MD [address] [place] [address] 11/06/2024 12:20 PM EDT Office Visit [facility] [address] [place] [id number] Jad Boone MD [address] [facility] [address] [place] [address] [phone] Health Maintenance Due Date Last Done Comments Albumin/Creatinine Ratio 1963 Hepatitis C Screening 1963 Adult Wellness Visit 2012 Zoster Vaccines (2 of 3) 06/26/2014 05/01/2014 *SPIROMETRY ONCE FOR ASTHMA-ADULT 07/14/2022 COVID-19 Vaccine ( season) 2024 06/01/2023, 06/01/2023, 06/09/2022, Additional history exists Influenza Vaccine (FLU shot) (#1) 2024 05/30/2023, 05/30/2023, 05/18/2022, Additional history exists Depression Screening 09/18/2024 09/18/2023 GFR 04/03/2025 04/03/2024, 08/0 02/2024, 03/18/2024, Additional history exists DTap/Tdap Vaccines (2 - Td or Tdap) 09/14/2026 [...] this encounter Medical Devices Implanted Type Area Bisque Ware Dipper Device Identifier Shelf Expiration Date Model / Serial / Lot Connector Nerve 2mm 15mm - [id number] Implanted:Qty : 1 on 04/27/2023 by Dudley Hinojosa MD at [facility] Left: Face [employer] [id number] 12/24/2024 [id number] / / [id number] Alloderm 4x7 Thin 0.8-1.2 (28 Units) - [id number] - [id number] Implanted:Qty : 28 on 04/27/2023 by Dudley Hinojosa MD at OR [facility] Left: Face ABBVIE 12/18/2024 [id number] / [id number] / [id number] Sheeting Monisha 2x3in X.020in - [id number] Implanted:Qty : 1 on 04/27/2023 by Dudley Hinojosa MD at OR [facility] Left: Ear [employer] 09/25/2024 / / [id number] Sheeting Monisha 2x3 In X.005in - [id number] Implanted:Qty : 1 on 12/12/2023 by Gurvinder Garcia MD at OR [facility] Left: Ear [employer] 04/05/2026 / / [id number] Cath Pwr Picc Solo Inj 4f - [id number] Implanted:Qty : 1 on 01/26/2024 at [facility] CR BARD : [employer]ESS SYSTEM[employer] [id number] 06/20/2025 [id number] / / [id number] documented as of this encounter Visit Diagnoses Diagnosis PAF (paroxysmal atrial fibrillation) (HCC)- Primary Atrial fibrillation documented in this encounter Additional Health Concerns Infection Onset Date Last Indicated Resolved Time C. difficile 03/18/2024 04/04/2024 documented as of this encounter Advance Directives Documents on File Type Date Recorded Patient Manager Licensing Expl anation POLST 02/16/2024 signed on 12/17 [place] ORDERS FOR LIFE-SUSTAINING TREATMENT POLST 04/26/2023 Signed [...] Agents on File Name Relationship Healthcare Agent [facility] Adult Child Power of Director Agency & Strategic Partnerships Care Teams Carpenter Assistant Relationship Specialty Start Date End Date Jad Boone MD [address] [facility] [address] [place] [address] PCP - General Family Medicine 09/20/23 documented as of this encounter
--- OUTSIDE RECORDS SUMMARY | 2024-04-25 23:44 | External Medical Summary | Summary of Care ---
Author Name Unknown Organization [facility] Address [address] [place] [address] Phone [phone] Care Team Providers Care Sheet Metal Welder Name Role Phone Jad Boone MD Primary Care Provider Reason for Visit * Reason Onset Date Comments Advice 04/15/2024 Encounter Details Date Type Department Care Team (Late st Contact Info) Description 04/15/[address] [place] [address] [phone] Jad Boone MD [facility] [address] [place] [address] Advice Allergies Active Allergy Reactions Criticality Noted Date Comments Bee Venom Hives High 03/14/2017 documented as of this encounter (statuses as of 04/16/2024) Medications Medication Sig Dispensed Refills Start Date End Date Status Omeprazole 20 MG Oral Capsule Delayed Release (PriLOSEC) Take 1 Capsule by mouth in the morning. 90 Capsule 1 3 Active Multivitamin Adult Oral Tablet Take by mouth every evening. Active Metoprolol Succinate ER 25 MG Oral Tablet Extended Release 24 Hour (Toprol XL)Indications:Ch ronic diastolic CHF (congestive heart failure) (HCC) Take 1 Tablet by mouth in the morning. 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 Active Magnesium Hydroxide 400 MG/5ML Oral Suspension (Milk of Magnesia) Take 30 mL by mouth daily as needed for Constipation. Active Sennosides-Docusa te Sodium 8.6-50 MG Oral Tablet (Senna S) Take 1 Tablet by mouth daily as needed for Constipation. Active Polyethylene Glycol 3350 17 GM/SCOOP Oral Powder (MiraLax) Take 17 g by mouth daily as needed for Constipation. Active Sodium Hypochlorite 0.25 % External Solution Apply topically to affected area every 12 hours. 473 mL 4 Active Bisacodyl 10 MG Rectal Suppository (Bisacodyl Laxative) Insert 1 suppository rectally every 72 hours as needed for constipation if MoM is ineffective (bowel Protocol) 4 Active EpiPen 2-Brian 0.3 MG/0.3ML Injection Solution Auto-injector Inject 1 dose intramuscularly as needed for anaphylaxis (H/O bee sting allergy) 4 Active Fleet Enema Rectal Enema Insert 1 dose rectally every 72 hours as needed for constipation *if Dulcolax is ineffective* (bowel protocol) 4 Active Acetaminophen 325 MG Oral Tablet (Tylenol) Take 2 Tablets by mouth every 4 hours as needed for Pain, Mild, Pain, Moderate or Fever >38C(100.5F). 30 Tablet 4 Active Chlorhexidine Gluconate Cloth 2 % External Pad Apply to wound Do not start before February 22, 2024. 30 Pad 1 4 Active Miconazole Nitrate 2 % External Powder (Remedy) Apply topically to affected area 2 times a day. Apply to affected area 71 g 4 Active Vitamin D3 1.25 MG (35474 UT) Oral Capsule Take 1 Capsule by mouth once a week. Every Monday 12 Capsule 4 05/15/20 24 Active oxyCODONE HCl 5 MG Oral Capsule (Oxy IR) Take 1 Capsule by mouth every 6 hours as needed for Pain, Moderate or Pain, Severe. 10 Tablet 4 Active Probiotic Oral Tablet Delayed ReleaseIndication s:Watery diarrhea Please dispense one generic probiotic tablet, to take three times a day, with food, for 14 days. 42 Tablet 4 Active Warfarin Sodium 5 MG Oral Tablet (Coumadin) Take 1 Tablet by mouth every evening. As per anti-coagulation clinic. 100 Tablet 1 4 Active guaiFENesin 400 MG Oral Tablet Take 1 Tablet by mouth every 4 hours as needed. Active Vancomycin HCl 125 MG Oral Capsule (Vancocin) Take 2 Capsules by mouth every 6 hours. For 7 days 56 Capsule 4 Active Vancomycin HCl 125 MG Oral Capsule (Vancocin) Take 2 Capsules by mouth every 6 hours for 7 days. 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 0 05/01/2014 Overview: ICD-10 update of inactive term Heart failure, systolic, due to CAD 08/28/2012 Overview: ECHO 2011 - Segmental wall abnormality, severe hypokinesis of anterior septum, anterior wall, apex, distal inferior septum, distal inferior wall, and distal posterior wall EF 33% Mass of left parotid gland documented as of this encounter (statuses as of 04/16/2024) Resolved Problems Problem Noted Date Diagnosed Date [...] effusion 05/01/2014 01/07/2015 Atrial fibrillation 08/28/2012 04/18/20 19 Cellulitis and abscess of leg, except foot 08/28/2012 01/07/2015 Facial mass 08/16/2023 documented as of this encounter (statuses as of 04/16/2024) Immunizations Name Administration Dates Next Due COVID-19 mRNA, LNP-s, No Pre serve, 2-Dose Series ([employer]) 11/26/2020,11/05/2020 Pneumococcal Conjugate Vacc, 13 Valent (Prevnar) [...] 10/10/2023 Does the household have a re gular source of income? (Household - for ages [...] No 01/24/2024 documented as of this encounter Miscellaneous Notes * Telephone Encounter - Verna Lai OSA - 04/16/2024 12:27 PM EDT Patient has been notified of the message. Patient has no further questions. Jonna at [facility] notified, no further questions * Telephone Encounter - Cynthia Roberts LPN - 04/16/2024 8:21 AM EDT T/C to JORGE Coyle at this time to call [phone]. Please relay below information from Dr. Boone * Telephone Encounter - Jad Boone MD - 04/15/2024 3:43 PM EDT We can continue the vanco for another week. Refill sent to [facility]. Jad Boone MD 04/15/2024 * Telephone Encounter - Lupe Sherwood LPN - 04/15/2024 11:29 AM EDT Jonna calling from [place]. Patient recently treated for c-diff. Took last dose of vancomycin on Monday. Taking a probiotic. He had 2 loose stools early this morning. His stools had been firming up until this morning. No abdominal pain, fever, nausea. Very weak. Asking for advice on what they should do? Recheck the stool? More vanco? documented in this encounter Plan of Treatment Upcoming Encounters Date Type Department Care Team (Late st Contact Info) Description 04/18/2024 5:20 PM EDT Anticoagulation Centralized Clinical Pharmacy Services, Sandra Gómez [address] [place] [address] [place] [address] [place] [address] 05/02/2024 9:40 AM EDT Nurse Only Ancillary, [place] [address] [place] [address] [place], Nurse, RN [address] [place] [address] 05/06/2024 9:00 AM EDT Office [address] W[address], [address] [place] [address] Hermes Noble MD [address] [place] [address] 06/06/2024 9:30 AM EDT Office [address]iology, [address] [place] [address] Yas Mckinnon CRNP [address] [facility] [place] [address] 07/23/2024 9:30 AM EST Office Visit Radiation Oncology, [facility] [address] [place] [address] IovolKo aleman MD [address] [facility] [place] [address] 11/06/2024 12:20 PM EDT Office Visit [facility] [address] [place] [id number] Jad Boone MD [address] [facility] [address] [place] [address] Health Maintenance Due Date Last Done Comments Albumin/Creatinine Ratio 1963 Hepatitis C Screening 1963 Adult Wellness Visit 2012 Zoster Vaccines (2 of 3) 06/26/2014 05/01/2014 *SPIROMETRY ONCE FOR ASTHMA-ADULT 07/14/2022 COVID-19 Vaccine ( season) 2023 06/01/2023, 06/01/2023, 06/09/2022, Additional history exists Influenza Vaccine (FLU shot) (#1) 2024 05/30/2023, 05/30/2023, 05/18/2022, Additional history exists Depression Screening 09/18/2024 09/18/2023 GFR 04/03/2025 04/03/2024, 08/02/2024, 03/18/2024, Additional history exists DTap/Tdap Vaccines (2 [...] this encounter Medical Devices Implanted Type Area Clerk Of Works Device Identifier Shelf Expiration Date Model / Serial / Lot Connector Nerve 2mm 15mm - [id number] Implanted:Qty : 1 on 04/27/2023 by Dudley Hinojosa MD at [place] [facility] Left: Face [employer] [id number] 12/24/2024 [id number] / / [id number] Alloderm 4x7 Thin 0.8-1.2 (28 Units) - [id number] - [id number] Implanted:Qty : 28 on 04/27/2023 by Dudley Hinojosa MD at [place] [facility] Left: Face ABBVIE 12/18/2024 [id number] / [id number] / [id number] Sheeting Monisha 2x3in X.020in - [id number] Implanted:Qty : 1 on 04/27/2023 by Dudley Hinojosa MD at [place] [facility] Left: Ear [employer] 09/25/2024700-20 / / [id number] Sheeting Monisha 2x3 In X.005in - [id number] Implanted:Qty : 1 on 12/12/2023 by Gurvinder Garcia MD at [place] [facility] Left: Ear [employer] 04/05/2026700-05 / / [id number] Cath Pwr Picc Solo Inj 4f - [id number] Implanted:Qty : 1 on 01/26/2024 at [facility] CR BARD : ACCESS SYSTEMS [id number] 06/20/2025 [id number] / / [id number] documented as of this encounter Additional Health Concerns Infection Onset Date Last Indicated Resolved Time C. 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
--- OUTSIDE RECORDS SUMMARY | 2024-04-25 23:44 | External Medical Summary | Summary of Care ---
Author Name Unknown Organization [facility] Address [address] [place] [address] Phone [phone] Care Team Providers Care Dinker Name Role Phone Jad Boone MD Primary Care Provider Encounter Details Date Type Department Care Team (Late st Contact Info) Description 04/15/2024 12:00 PM EDT Scheduled Telephone Care Coordination and Integration [address], [place] [phone] [facility] Dresser Tender [address], [place] [phone] Allergies Active Allergy Reactions Criticality Noted Date Comments Bee Venom Hives High 03/14/2017 documented as of this encounter (statuses as of 04/15/2024) Medications Medication Sig Dispensed Refills Start Date End Date Status Omeprazole 20 MG Oral Capsule Delayed Release (PriLOSEC) Take 1 Capsule by mouth in the morning. 90 Capsule 1 11/15/2022 Active Multivitamin Adult Oral Tablet Take by mouth every evening. Active Metoprolol Succinate ER 25 MG Oral Tablet Extended Release 24 Hour (Toprol XL)Indications:Chr onic diastolic CHF (congestive heart failure) (HCC) Take [...] g 02/21/2024 Active Vitamin D3 1.25 MG (33468 UT) Oral Capsule Take 1 Capsule by [...] as of this encounter (statuses as of 04/15/2024) Active Problems Problem Noted Date Diagnosed Date [...] fibrillation) 10/18/2018 Coronary artery disease invo lving [place] coronary artery without angina pectoris 01/07/2015 intermediate current use of anticoagulant therapy 0 05/01/2014 Overview: ICD-10 update of inactive term Heart failure, systolic, due to CAD 08/28/2012 Overview: ECHO 2011 - Segmental wall abnormality, severe hypokinesis of anterior septum, anterior wall, apex, distal inferior septum, distal inferior wall, and distal posterior wall EF 33% Mass of left parotid gland documented as of this encounter (statuses as of 04/15/2024) Resolved Problems Problem Noted Date Diagnosed Date [...] acute decompensation 03/28/2023 08/16/2023 Symptomatic anemia 04/02/2022 Acute blood loss anemia 04/02/2022 032 03/2023 Hypoxia 03/31/2022 04/02/2022 Suspected sleep apnea 03/31/20222023 [...] as of this encounter (statuses as of 04/15/2024) Immunizations Name Administration Dates Next Due COVID-19 [...] money to buy more. Never true 10/10/19 24 Within the past 12 months, t he [...] No 10/10/2023 Does the household have a [facility] source of income? (Household - for ages [...] seeing, even when wearing glasses? No 04/26/20 Do you have serious difficul ty walking [...] No 01/24/2024 documented as of this encounter Plan of Treatment Upcoming Encounters Date Type Department Care Team (Late st Contact Info) Description 04/18/2024 5:20 PM EDT Anticoagulation Centralized Clinical Pharmacy Services, Sandra Gómez [address] [place] [address] [place] [address] [facility], [address] [place] [address] 05/02/2024 9:40 AM EDT Nurse Only Ancillary, [place] [address] [place] [address] [place], Nurse, RN [address] [place] [address] 05/06/2024 9:00 AM EDT Office Visit Wound Care, [facility] [address] [place] [address] Hermes Noble MD [address] [place] [address] 06/06/2024 9:30 AM EDT Office Visit Cardiology, [place] 400 [facility] [place] [address] Yas Mckinnon CRNP [address] [place] [address] 07/23/2024 9:30 AM EST Office Visit Radiation Oncology, [facility] [address] [place] [address] Ko Grace MD [address] [place] [address] 11/06/2024 12:20 PM EDT Office Visit [facility] [address] [place] [address] Jad Boone MD 4752 [facility] [address] [place] [address] [phone] Health Maintenance Due Date Last Done Comments Albumin/Creatinine Ratio 1963 Hepatitis C Screening 1963 Adult Wellness Visit 2012 Zoster Vaccines (2 of 3) 06/26/2014 05/01/2014 *SPIROMETRY ONCE FOR ASTHMA-ADULT 07/14/2022 COVID-19 Vaccine ( season) 2023 06/01/2023, 06/01/2023, 06/09/2022, Additional history exists Influenza Vaccine (FLU shot) (#1) 2024 05/30/2023, 05/30/2023, 05/18/2022, Additional history exists Depression Screening 09/18/2024 09/18/2023 GFR 04/03/2025 04/03/2024, 0802/2024, 03/18/2024, Additional history exists DTaP,Tdap,and Td Vaccines [...] this encounter Medical Devices Implanted Type Area Systems Integrator Device Identifier Shelf Expiration Date Model / Serial / Lot Connector Nerve 2mm 15mm - [id number] Implanted:Qty : 1 on 04/27/2023 by Dudley Hinojosa [place] [facility] [place]: Face [employer] [id number] 12/24/2024 [id number] / / [id number] Alloderm 4x7 Thin 0.8-1.2 (28 Units) - [id number] - [id number] Implanted:Qty : 28 on 04/27/2023 by Dudley Hinojosa MD at [place] [facility] Left: Face ABBVIE 12/18/2024 [id number] / [id number] / [id number] Sheeting Monisha 2x3in X.020in - [id number] Implanted:Qty : 1 on 04/27/2023 by Dudley Hinojosa MD at [place] [facility] Left: Ear [employer]IED [employer] 09/25/2024 / / [id number] Sheeting Monisha 2x3 In X.005in - [id number] Implanted:Qty : 1 on 12/12/2023 by Gurvinder Garcia MD at [place] [facility] Left: Ear ALLIED BIOM[employer] 04/05/2026 / / [id number] Cath Pwr Picc Solo Inj 4f - [id number] Implanted:Qty : 1 on 01/26/2024 at [facility] CR BARD : ACCESS SYSTEMS [id number] 06/20/2025 [id number] / / [id number] documented as of this encounter Additional Health Concerns Infection Onset Date Last Indicated Resolved Time C. difficile 03/18/2024 04/04/2024 documented as of this encounter Advance Directives Documents on File Type Date Recorded Patient Network Management Specialist Expl anation POLST 02/16/2024 signed on 12/17 [place] ORDERS FOR LIFE-SUSTAINING TREATMENT POLST 04/26/2023 Signed [...] Agents on File Name Relationship Healthcare Agent [facility] p Communication [facility] Adult Child Power of Cementing Bulk Material Operator Care Teams Dinker Relationship Specialty Start Date End Date Jad Boone MD [address] [facility] [place] [address] PCP - General Family Medicine 09/20/23 documented as of this encounter
--- OUTSIDE RECORDS SUMMARY | 2024-04-25 23:44 | External Medical Summary | Summary of Care ---
Author Name Unknown Organization [facility] Address [address] [place] [address] Phone [phone] Care Team Providers Care Director Nursing Service Name Role Phone Jad Boone MD Primary Care Provider Reason for Visit * Reason Onset Date Comments Advice 04/15/2024 Encounter Details Date Type Department Care Team (Late st Contact Info) Description 04/15/[address] [place] [address] [phone] Jad Boone MD [facility]2 [facility] [address] [place] [address] Advice Allergies Active Allergy Reactions Criticality [...] g 4 Active Vitamin D3 1.25 MG (12992 UT) Oral Capsule Take 1 Capsule by [...] fibrillation) 10/18/2018 Coronary artery disease invo lving [place] coronary artery without angina pectoris 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 Please relay below information from Dr. Boone * Telephone Encounter - Jad Boone MD - 04/15/2024 3:43 PM EDT We can continue the vanco for another week. Refill sent to [facility]. Jad Boone MD 04/15/2024 * Telephone Encounter - Lupe Sherwood LPN - 04/15/2024 11:29 AM EDT Jonna calling from [place]. Patient recently treated for c-diff. Took last [...] Anticoagulation Centralized Clinical Pharmacy Services, Sandra Gómez [address] [place] [address] [place] [address] [facility], [address] [place] [address] 05/02/2024 9:40 AM EDT Nurse Only Ancillary, [place] [address] [place] [address] [place], Nurse, RN [address] [place] [address] 05/06/2024 9:00 AM EDT Office Visit Wound Care, [facility] 400 [place] [address] Hermes Noble MD [address] [place] [address] 06/06/2024 9:30 AM EDT Office Visit Cardiology, [place] [address] [place] [address] Yas Mckinnon CRNP [address] [place] [address] 07/23/2024 9:30 AM EST Office Visit Radiation Oncology, [facility] [address] [place] [address] Ko Grace MD [address] [place] [address] 11/06/2024 12:20 PM EDT Office Visit [facility], [place] [address] [place] [id number] Jad Boone MD [address] [facility] [address] [place] [address] Health Maintenance Due Date Last Done Comments Albumin/Creatinine Ratio 1963 Hepatitis C Screening 1963 Adult Wellness Visit 2012 Zoster Vaccines (2 of 3) 06/26/2014 05/01/2014 *SPIROMETRY ONCE FOR ASTHMA-ADULT 07/14/2022 COVID-19 Vaccine (2022- season) 2023 06/01/2023, 06/01/2023, 06/09/2022, Additional history [...] this encounter Medical Devices Implanted Type Area Jewel Setter Device Identifier Shelf Expiration Date Model / Serial / Lot Connector Nerve 2mm 15mm - [id number] Implanted:Qty : 1 on 04/27/2023 by Dudley Hinojosa MD [place] [facility] Left: Face [employer] [id number] 12/24/2024 [id number] / / [id number] Alloderm 4x7 Thin 0.8-1.2 (28 Units) - [id number] - [id number] Implanted:Qty : 28 on 04/27/2023 by Dudley Hinojosa MD [place] [facility] Left: Face ABBVIE 12/18/2024 [id number] / [id number] / [id number] Sheeting Monisha 2x3in X.020in - [id number] Implanted:Qty : 1 on 04/27/2023 by Dudley Hinojosa MD at [place] [facility] Left: Ear [employer] 09/25/2024- / / [id number] Sheeting Monisha 2x3 In X.005in - [id number] Implanted:Qty : 1 on 12/12/2023 by Gurvinder Garcia MD at [place] [facility] Left: Ear [employer] 04/05/2026- / / [id number] Cath Pwr Picc Solo Inj 4f - [id number] Implanted:Qty : 1 on 01/26/2024 at [facility] CR BARD : ACCESS SYSTEMS [id number] 06/20/2025 [id number] / / [id number] documented as of this encounter Additional Health Concerns Infection Onset Date Last Indicated Resolved Time C. difficile 03/18/2024 04/04/2024 documented as of this encounter Advance Directives Documents on File Type Date Recorded Patient Group Controller Expl anation POLST 02/16/2024 signed on 12/17 [place] ORDERS FOR LIFE-SUSTAINING TREATMENT POLST 04/26/2023 Signed [...] 9:52 PM 12/16/2023 3:10 PM This order reflects the patients wishes and were consensually agreed [...] Agents on File Name Relationship Healthcare [facility] Adult Child Power of Merchandising Execution Associate Care Teams Director Nursing Service Relationship Specialty Start Date End Date Jad Boone MD [address] [facility] [address] [facility] [place] [address] PCP - General Family Medicine 09/20/23 documented as of this encounter
--- OUTSIDE RECORDS SUMMARY | 2024-04-25 23:44 | External Medical Summary | Summary of Care ---
Author Name Unknown Organization [facility] Address [address] [place] [address] Phone [phone] Care Team Providers Care Furniture Salesperson Name Role Phone Jad Boone MD Primary Care Provider Encounter Details Date Type Department Care Team (Late st Contact Info) Description 04/09/2024 11:00 AM EDT Scheduled Telephone Care Coordination and Integration [address] [place], [place] [phone] [facility] Polymer Scientist [address] [place], [place] [phone] Allergies Active Allergy Reactions Criticality Noted Date Comments Bee Venom Hives High 03/14/2017 documented as of this encounter (statuses as of 04/09/2024) Medications Medication Sig Dispensed Refills Start Date [...] g 02/21/2024 Active Vitamin D3 1.25 MG (15182 UT) Oral Capsule Take 1 Capsule by [...] anti-coagulation clinic. 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 0 05/01/2014 Overview: ICD-10 update of inactive term Heart failure, systolic, due to CAD 08/28/2012 Overview: ECHO 2011 - Segmental wall abnormality, severe hypokinesis of anterior septum, anterior wall, apex, distal inferior septum, distal inferior wall, and distal posterior wall EF 33% Mass of left parotid gland documented as of this encounter (statuses as of 04/09/2024) Resolved Problems Problem Noted Date Diagnosed Date [...] anemia 04/02/2022 2 Acute blood loss anemia 04/02/2022 032 03/2023 [...] as of this encounter (statuses as of 04/09/2024) Immunizations Name Administration Dates Next Due COVID-19 [...] Anticoagulation Centralized Clinical Pharmacy Services, Sandra Gómez [address] [place] [address] [place] [address] [facility], [address] [place] [address] 05/02/2024 9:40 AM EDT Nurse Only Ancillary, [place] [address] [place] [address] [place], Nurse, RN [facility] [address] [place] [address] 05/06/2024 9:00 AM EDT Office Visit Wound Care, [facility] [address] [facility] [place] [address] Hermes Noble MD [address] [place] [address] 06/06/2024 9:30 AM EDT Office Visit Cardiology, [address] [place] [address] Yas Mckinnon CRNP 400 [facility] [place] [address] 07/23/2024 9:30 AM EST Office Visit Radiation Oncology, [facility] [address] [place] [address] IoKo rivera MD [address] [place] [address] 11/06/2024 12:20 PM EDT Office Visit [facility] [address] [place] [phone] Jad Boone MD [address] [facility] [address] [place] [address] Health Maintenance Due Date Last Done Comments [...] this encounter Medical Devices Implanted Type Area Gore Cutter Device Identifier Shelf Expiration Date Model / Serial / Lot Connector Nerve 2mm 15mm - [id number] Implanted:Qty : 1 on 04/27/2023 by Dudley Hinojosa [place] [facility] [place]: Face [employer] [id number] 12/24/2024 [id number] / / [id number] Alloderm 4x7 Thin 0.8-1.2 (28 Units) - [id number] - [id number] Implanted:Qty : 28 on 04/27/2023 by Dudley Hinojosa MD [place] [facility] Left: Face ABBVIE 12/18/2024 [id number] / [id number] / [id number] Sheeting Monisha 2x3in X.020in - [id number] Implanted:Qty : 1 on 04/27/2023 by Dudley Hinojosa MD [place] [facility] Left: Ear [employer]IED [employer] 09/25/2024700-20 / / [id number] Sheeting Monisha 2x3 In X.005in - [id number] Implanted:Qty : 1 on 12/12/2023 by Gurvinder Garcia MD [place] [facility] [place]: Ear ALLIED BIOM[employer] 04/05/2026700-05 / / [id number] Cath Pwr Picc Solo Inj 4f - [id number] Implanted:Qty : 1 on 01/26/2024 at [facility] CR BARD : ACCESS SYSTEMS [id number] 06/20/2025 [id number] / / [id number] documented as of this encounter Additional Health Concerns Infection Onset Date Last Indicated Resolved Time C. difficile 03/18/2024 04/04/2024 documented as of this encounter Advance Directives Documents on File Type Date Recorded Patient Activity Manager Expl anation POLST 02/16/2024 signed on [...] on File Name Relationship Healthcare Agent [facility] Communication [facility] Adult Child Power of Pharmacy Informatics Specialist Care Teams Furniture Salesperson Relationship Specialty Start Date End Date Jad Boone MD 475[address] [facility] [place] [address] PCP - General Family Medicine 09/20/23 documented as of this encounter
--- OUTSIDE RECORDS SUMMARY | 2024-04-25 23:44 | External Medical Summary | Summary of Care ---
Author Name Unknown Organization [facility] Address [address] [facility] [place] [address] Phone [phone] Care Team Providers Care Captain Room Service Name Role Phone Jad Boone MD Primary Care Provider Reason for Visit * Reason Comments Dosage Adjustment Via Phone (anticoag Cl inic) Encounter Details Date Type Department Care Team (Late st Contact Info) Description 04/18/2024 5:20 PM EDT Anticoagulation Centralized Clinical Pharmacy Services, Sandra Gómez [address] [place] [address] [place] [address] [facility], [address] [place] [address] PAF (paroxysmal atrial fibrillation) ([facility])* Allergies Active Allergy Reactions Criticality Noted Date Comments Bee Venom Hives High 03/14/2017 documented as of this encounter (statuses as of 04/18/2024) Medications Medication Sig Dispensed Refills Start Date End Date Status Omeprazole 20 MG Oral Capsule Delayed Release (PriLOSEC) Take 1 Capsule by mouth in the morning. 90 Capsule 1 11/15/2022 Active Multivitamin Adult Oral Tablet Take by mouth every evening. Active Metoprolol Succinate ER 25 MG Oral Tablet Extended Release 24 Hour (Toprol XL)Indications:Chr onic diastolic CHF (congestive heart failure) ([facility]) Take 1 Tablet by mouth in the [...] g 02/21/2024 Active Vitamin D3 1.25 MG (22645 UT) Oral Capsule Take 1 Capsule by [...] as of this encounter (statuses as of 04/18/2024) Active Problems Problem Noted Date Diagnosed Date [...] fibrillation) 10/18/2018 Coronary artery disease invo lving [place] coronary artery without angina pectoris 01/07/2015 assisted current use of anticoagulant therapy 0 05/01/2014 Overview: ICD-10 update of inactive term Heart failure, systolic, due to CAD 08/28/2012 Overview: ECHO 2011 - Segmental wall abnormality, severe hypokinesis of anterior septum, anterior wall, apex, distal inferior septum, distal inferior wall, and distal posterior wall EF 33% Mass of left parotid gland documented as of this encounter (statuses as of 04/18/2024) Resolved Problems Problem Noted Date Diagnosed Date [...] as of this encounter (statuses as of 04/18/2024) Immunizations Name Administration Dates Next Due COVID-19 [...] No 10/10/2023 Does the household have a [facility] source of income? (Household - for ages [...] Progress Notes * Lamar Early CPhT - 04/18/2024 1:16 PM EDT Contacts Contact Date/Time Type Contact Phone/Fax 04/18/2024 01:13 PM EDT Phone (Outgoing) Stephen Varela (Self) [phone] (M) Left Message - Left voicemail/ Outgoing voicemail identified the patient's name Subjective Advised patient to contact Anticoagulation Clinic if any unusual bruising or bleeding, recent illness, changes in medication, or questions/concerns. PT/INR results, Coumadin dose instructions, and next PT/INR date communicated as noted by Pharmacist: Yes LAMAR EARLY CPhT 04/18/2024, 1:16 PM * Alyson Salinas [facility] - 04/18/2024 12:36 PM EDT Images from the original note were not included. Coumadin Clinic (region specific) Objective Current Warfarin Dose As of 04/18/2024 Warfarin maintenance plan: 7.5 mg (1 mg x 7.5) every Mon, Wed, Fri; 5 mg (1 mg x 5) all other days INR Result As of 04/18/2024 INR goal: 2.0-3.0 INR used for dosin.9 (04/18/2024) Assessment & Plan Warfarin Plan As of 04/18/2024 Full warfarin instructions: 04/18: Hold; Otherwise 7.5 mg every Mon, Wed, Fri; 5 mg all other days Next INR check: 04/25/2024 Repeat PT/INR in 1 week(s) Weekly dose: not changed Additional Dosing Information: Description Call patient while at [facility] AND fax Facility at [phone] Cefepime and Vanco until 03/07/24 (getting weekly labs)- Changed to Dapto + Meropenem 02/15/24 pt started multivitamin around beginning october Tech to contact patient with dose instructions as noted. Alyson Salinas RPh 04/18/2024, 12:38 PM documented in this encounter Plan of Treatment Upcoming Encounters Date Type Department Care Team (Late st Contact Info) Description 05/02/2024 9:40 AM EDT Nurse Only Ancillary, [place] [address] [place] [address] [place], Nurse, RN [address] [place] [address] 05/06/2024 9:00 AM EDT Office Visit Wound Care, [facility] [address] [place] [address] Hermes Noble MD [address] [place] [address] 06/06/2024 9:30 AM EDT Office Visit Cardiology, [place] [address] [place] [address] Yas Mckinnon CRNP [address] [place] [address] 07/23/2024 9:30 AM EST Office Visit Radiation Oncology, [facility] [address] [place] [address] IovoliKo MD [address] [place] [address] 11/06/2024 12:20 PM EDT Office Visit [facility] [address] [place] [phone] Jad Boone MD [address] [facility] [address] [place] [address] Health Maintenance Due Date Last Done Comments [...] this encounter Medical Devices Implanted Type Area Investment Underwriter Device Identifier Shelf Expiration Date Model / Serial / Lot Connector Nerve 2mm 15mm - [id number] Implanted:Qty : 1 on 04/27/2023 by Dudley Hinojosa MD at [place] [facility] Left: Face [employer] [id number] 12/24/2024 [id number] / / [id number] Alloderm 4x7 Thin 0.8-1.2 (28 Units) - [id number] - [id number] Implanted:Qty : 28 on 04/27/2023 by Dudley Hinojosa MD at OR [facility] Left: Face ABBVIE 12/18/2024 [id number] / [id number] / [id number] Sheeting Monisha 2x3in X.020in - [id number] Implanted:Qty : 1 on 04/27/2023 by Dudley Hinojosa MD at OR [facility] Left: Ear ALLIED BIOM[employer] 09/25/2024 23-700-20 / / [id number] Sheeting Monisha 2x3 In X.005in - [id number] Implanted:Qty : 1 on 12/12/2023 by Gurvinder Garcia MD at OR [facility] Left: Ear ALLIED BIOMED[employer] 04/05/2026 23-700-05 / / [id number] Cath Pwr Picc Solo Inj 4f - [id number] Implanted:Qty : 1 on 01/26/2024 at [facility] CR BARD : ACCESS SYSTEMS [id number] 06/20/2025 [id number] / / [id number] documented as of this encounter Visit Diagnoses Diagnosis PAF (paroxysmal atrial fibrillation) (HCC)- Primary Atrial fibrillation documented in this encounter Additional Health Concerns Infection Onset Date Last Indicated Resolved Time C. difficile 03/18/2024 04/04/2024 documented as of this encounter Advance Directives Documents on File Type Date Recorded Patient Director Of Resource Development Expl anation POLST 02/16/2024 signed on 12/17 [place] ORDERS FOR LIFE-SUSTAINING TREATMENT POLST 04/26/2023 Signed [...] Agents on File Name Relationship Healthcare Agent [facility] Communication [facility] Adult Child Power of Car Shakeout Operator Care Teams Captain Room Service Relationship Specialty Start Date End Date Jad Boone MD [address] [facility] [address] [place] [address] PCP - General Family Medicine 09/20/23 documented as of this encounter
--- OUTSIDE RECORDS SUMMARY | 2024-04-25 23:45 | External Medical Summary | Summary of Care ---
Author Name Unknown Organization [facility] Address [address] [place] [address] Phone [phone] Care Team Providers Care Biscuit Factory Worker Name Role Phone Emma Alonzo MD Primary Care Provider Reason for Visit * Reason Onset Date Comments Advice 04/04/2024 Encounter Details Date Type Department Care Team (Late st Contact Info) Description 04/04/[address] [place] [address] [phone] Emma Alonoz MD [facility] [address] [place] [phone] Advice Allergies Active Allergy Reactions Criticality Noted Date Comments Bee Venom Hives High 03/14/2017 documented as of this encounter (statuses as of 04/08/2024) Medications Medication Sig Dispensed Refills Start Date End Date Status Omeprazole 20 MG Oral Capsule Delayed Release (PriLOSEC) Take 1 Capsule by mouth in the morning. 90 Capsule 1 11/16/19 23 Active Multivitamin Adult Oral Tablet Take by mouth every evening. Active Metoprolol Succinate ER 25 MG Oral Tablet Extended Release 24 Hour (Toprol XL)Indications:C hronic diastolic CHF (congestive heart failure) (HCC) Take 1 Tablet by mouth in the morning. 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 Active Magnesium Hydroxide 400 MG/5ML Oral Suspension (Milk of Magnesia) Take 30 mL by mouth daily as needed for Constipation. Active Sennosides-Docus ate Sodium 8.6-50 MG Oral Tablet (Senna S) Take 1 Tablet by mouth daily as needed for Constipation. Active Polyethylene Glycol 3350 17 GM/SCOOP Oral Powder (MiraLax) Take 17 g by mouth daily as needed for Constipation. Active Sodium Hypochlorite 0.25 % External Solution Apply topically to affected area every 12 hours. 473 mL 01/26/20 24 Active Bisacodyl 10 MG Rectal Suppository (Bisacodyl Laxative) Insert 1 suppository rectally every 72 hours as needed for constipation if MoM is ineffective (bowel Protocol) 02/05/20 24 Active EpiPen 2-Brian 0.3 MG/0.3ML Injection Solution Auto-injector Inject 1 dose intramuscularly as needed for anaphylaxis (H/O bee sting allergy) 02/05/20 24 Active Fleet Enema Rectal Enema Insert 1 dose rectally every 72 hours as needed for constipation *if Dulcolax is ineffective* (bowel protocol) 02/05/20 24 Active Acetaminophen 325 MG Oral Tablet (Tylenol) Take 2 Tablets by mouth every 4 hours as needed for Pain, Mild, Pain, Moderate or Fever >38C(100.5F). 30 Tablet 02/21/20 24 Active Chlorhexidine Gluconate Cloth 2 % External Pad Apply to wound Do not start before February 22, 2024. 30 Pad 1 02/22/20 24 Active Miconazole Nitrate 2 % External Powder (Remedy) Apply topically to affected area 2 times a day. Apply to affected area 71 g 02/21/20 24 Active Vitamin D3 1.25 MG (95290 UT) Oral Capsule Take 1 Capsule by mouth once a week. Every Monday 12 Capsule 02/21/20 24 024 Active oxyCODONE HCl 5 MG Oral Capsule (Oxy IR) Take 1 Capsule by mouth every 6 hours as needed for Pain, Moderate or Pain, Severe. 10 Tablet 02/21/20 24 Active Probiotic Oral Tablet Delayed ReleaseIndicatio ns:Watery diarrhea Please dispense one generic probiotic tablet, to take three times a day, with food, for 14 days. 42 Tablet 04/05/20 24 024 Discontinued(Re fill) Vancomycin HCl 250 MG Oral Capsule (Vancocin) Take 1 Capsule by mouth every 6 hours for 7 days. 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 04/27/2023 Suspected sleep apnea 03/31/2022 Other specified anemias 03/29/2022 Chronic diastolic CHF (congestive heart failure) 03/16/2022 Essential hypertension with goal blood pressure less than 140/90 03/16/2022 Dyslipidemia, goal LDL below 70 03/16/2022 Atypical migraine 03/16/2022 Other specified peripheral vascular diseases Mild intermittent asthma without complication PAF (paroxysmal atrial fibrillation) 10/18/2018 Coronary artery disease invo lving [place] coronary artery without angina pectoris 01/07/2015 MCFP current use of anticoagulant therapy 0 05/01/2014 Overview: ICD-10 update of inactive term Heart failure, systolic, due to CAD 08/28/2012 Overview: ECHO 2011 - Segmental wall abnormality, severe hypokinesis of anterior septum, anterior wall, apex, distal inferior septum, distal inferior wall, and distal posterior wall EF 33% Mass of left parotid gland documented as of this encounter (statuses as of 04/08/2024) Resolved Problems Problem Noted Date Diagnosed Date Resolved Date Encephalopathy acute 02/15/2024 024 Malignant neoplasm of head, face and neck 10/04/2023 02/27/2024 Overview: duplicate Ankylosing spondylitis of un specified sites in spine 08/16/2023 10/04/2023 Overview: CT 2022: "ossification of the supraspinous ligament consistent with ankylosing spondylitis. ". Closed T10 spinal fracture 03/28/2023 1 10/17/2022 Heart failure, diastolic, wi th acute decompensation 03/28/2023 08/16/2023 Symptomatic anemia 04/02/2022 Acute blood loss anemia 04/02/2022 03/2 03/2023 Hypoxia 03/31/2022 04/02/2022 TILLEY (dyspnea on exertion) 03/29/2022 Adrenal hemorrhage [...] as of this encounter (statuses as of 04/08/2024) Immunizations Name Administration Dates Next Due COVID-19 [...] No 10/10/2023 Does the household have a [facility] source of income? (Household - for ages [...] Telephone Encounter - Cynthia Roberts LPN - 04/08/2024 9:06 AM EDT patient aware * Telephone Encounter - Cynthia Roberts LPN - 04/05/2024 3:23 PM EDT T/C to Sarah at [facility] for her to return call please inform of script at the pharmacy thank you * Addendum Note - Emma Alonzo MD - 04/05/2024 1:53 PM EDTAddended by: EMMA ALONZO on: 04/05/2024 01:53 PM Modules accepted: Orders * Telephone Encounter - Emma Alonzo MD - 04/05/2024 1:53 PM EDT Vancomycin called to Pharmacy in [place]. Emma Alonzo MD 04/05/2024 * Telephone Encounter - Jemma Reyes LPN - 04/05/2024 1:32 PM EDT Aimee from [facility] calling to check on previous message. She is asking for this to be sent high priority. * Telephone Encounter - Ladan Cazares LPN - 04/05/2024 9:40 AM EDT Images from the original note were not included. Aimee calling from [facility] regarding stool labs that were completed. Asking for PCP to review, Please advise, Pharmacy selected. [facility] * Addendum Note - Emma Alonzo MD - 04/05/2024 8:59 AM EDTAddended by: EMMA ALONZO on: 04/05/2024 08:59 AM Modules accepted: Orders * Telephone Encounter - Cynthia Roberts LPN - 04/04/2024 2:35 PM EDT Please send probiotic order to [facility] thank you * Telephone Encounter - Cynthia Roberts LPN - 04/04/2024 2:30 PM EDT T/C to [facility] at this time. LVM to Sarah at this time to review below information, no answer LVM to call clinic back at [phone] * Telephone Encounter - Emma Alonzo MD - 04/04/2024 2:11 PM EDT C diff ordered. Taking a probiotic three times a day with meals for two weeks, may also help. Emma Alonzo MD 04/04/2024 * Telephone Encounter - Jes Mahmood LPN - 04/04/2024 8:23 AM EDT Sarah from [facility] is calling. Reports that the pt returned to the [facility] yesterday and had Cdiff while on the Rehab side and finished his vancomycin there. Since returning to the [facility], around 6 PM pt noted diarrhea started and has been having diarrhea since. Night nurse stated that the pt's diarrhea did not smell odorous like Cdiff but the pt struggles with preforming good hygiene. Is concerned that the Cdiff is not gone. Is asking if a stool sample should be completed and for recommendations. Please advise. documented in this encounter Plan of Treatment Upcoming Encounters Date Type Department Care Team (Late st Contact Info) Description 04/08/2024 10:40 AM EDT Office Visit [place] [address] [place] [address] Emma Alonzo MD [address] [place] [address] [place] [address] 04/11/2024 6:15 PM EDT Anticoagulation [facility] Clinical Pharmacy Services, [address] [place] [address] [place] [address] 05/06/2024 9:00 AM EDT Office Visit Wound Care, [facility] [address] [place] [address] Hermes Noble MD [address] [facility] [place] [address] 06/06/2024 9:30 AM EDT Office [facility] [place] [facility] [address] Yas Mckinnon CRNP [address] [place], [place] [phone] 07/23/2024 9:30 AM EST Office Visit Radiation Oncology, [facility] [address] [place] [address] IovoliKo MD [address] [place] [address] Scheduled Orders Name Type Priority Associated Diagnoses Orde r Schedule CLOSTRIDIUM DIFFICILE, PCR Lab Routine Watery diarrhea Expected: 04/04/2024 (Approximate), Expires: 04/04/2025 Health Maintenance Due Date Last Done Comments Albumin/Creatinine Ratio 1963 Hepatitis C Screening 1963 Adult Wellness Visit 2012 Zoster Vaccines (2 of 3) 06/26/2014 05/01/2014 *SPIROMETRY ONCE FOR ASTHMA-ADULT 07/14/2022 COVID-19 Vaccine ( season) 2023 06/01/2023, 11/26/2020, 11/05/2020 Influenza Vaccine (FLU shot) (#1) 2024 05/30/2023, 05/30/2023, 05/18/2022, Additional history exists Depression Screening 09/18/2024 09/18/2023 GFR 04/03/2025 04/03/2024, 08/0 02/2024, 03/18/2024, Additional history exists DTaP,Tdap,and Td Vaccines (2 - Td or Tdap) 09/14/2026 09/14/2016 Pneumococcal Vaccine: 65+ Years Completed 03/09/2016, 08/23/2012 Colonoscopy Discontinued HPV (Gardasil) Vaccine Aged Out No lo nger eligible based on patient's age to complete this topic Hepatitis B Vaccine Aged Out No longe r eligible based on patient's age to complete this topic MENINGOCOCCAL (MENACTRA/MENVEO) Aged Out No longer eligible based on patient's age to complete this topic documented as of this encounter Medical Devices Implanted Type Area Turpentiner Device Identifier Shelf Expiration Date Model / Serial / Lot Connector Nerve 2mm 15mm - [id number] Implanted:Qty : 1 on 04/27/2023 by Dudley Hinojosa MD at [place] [facility] Left: Face [employer] [id number] 12/24/2024 [id number] / / [id number] Alloderm 4x7 Thin 0.8-1.2 (28 Units) - [id number] - [id number] Implanted:Qty : 28 on 04/27/2023 by Dudley Hinojosa MD at [facility] Left: Face ABBVIE 12/18/2024 [id number] / [id number] / [id number] Sheeting Monisha 2x3in X.020in - [id number] Implanted:Qty : 1 on 04/27/2023 by Dudley Hinojosa MD at [facility] Left: Ear [employer] 09/25/2024700-20 / / [id number] Sheeting Monisha 2x3 In X.005in - [id number] Implanted:Qty : 1 on 12/12/2023 by Gurvinder Garcia MD at OR [facility] Left: Ear [employer] 04/05/2026700-05 / / [id number] Cath Pwr Picc Solo Inj 4f - [id number] Implanted:Qty : 1 on 01/26/2024 at [facility] CR BARD : ACCESS SYSTEMS [id number] 06/20/2025 [id number] / / [id number] documented as of this encounter Visit Diagnoses Diagnosis Watery diarrhea- Primary documented in this encounter Additional Health Concerns Infection Onset Date Last Indicated Resolved Time C. difficile 03/18/2024 04/04/2024 C. 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
--- OUTSIDE RECORDS SUMMARY | 2024-04-25 23:45 | External Medical Summary | Summary of Care ---
Author Name Unknown Organization [facility] Address [address] [place] [address] Phone [phone] Care Team Providers Care Architecture Department Chair Name Role Phone Jad Boone MD Primary Care Provider Encounter Details Date Type Department Care Team (Late st Contact Info) Description 04/08/2024 12:30 PM EDT Scheduled Telephone Care Coordination and Integration [address], [place] [phone] Alyson Murphy [facility] Coordinator [address], [place] [phone] Allergies Active Allergy Reactions Criticality Noted Date [...] 22, 2024. 30 Pad 1 02/22/2024 Active amLODIPine Besylate 10 MG Oral Tablet (Norvasc) Take 1 Tablet by mouth in the morning. 30 Tablet 02/22/2024 4 Active Miconazole Nitrate 2 % External Powder (Remedy) Apply topically to affected area 2 times a day. Apply to affected area 71 g 02/21/2024 Active Vitamin D3 1.25 MG (29277 UT) Oral Capsule Take 1 Capsule by mouth once a week. 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 0 [...] Expressive aphasia 02/15/2024 Surgical site infection 01/28/202403/21 Acute osteomyelitis of temporal bone 01/28/2024 04/08/2024 [...] mRNA, LNP-s, No Pre serve, 2-Dose Series (Blastbeat) 11/26/2020,11/05/2020 Pneumococcal Conjugate Vacc, 13 Valent (Prevnar) [...] as of this encounter Progress Notes * Gilma Overton RN - 04/08/2024 3:51 PM EDT noted * Alyson Murphy, [facility] Coordinator - 04/08/2024 2:06 PM EDT Telemedicine visit: No [facility] Coordinator (DANE) documentation: CHW placed 1st f/u call to patient per CM's request Patient answered phone and reported that he was still at [facility] but on the assisted living side. "He will be there until he dies" Patient reported he had someone there and he would like a call back tomorrow. CHW will give him a call tomorrow and patient ended call. Alyson Murphy- Community Health Worker 1 Support Services/[facility] Preferred [employer] Plan [email or web address] documented in this encounter Plan of Treatment Upcoming Encounters Date Type Department Care Team (Late st Contact Info) Description 04/09/2024 11:00 AM EDT Scheduled Telephone Care Coordination and Integration [address] [place] [address] Alyson Murphy [facility] Coordinator [address] [place] [address] 04/11/2024 6:15 PM EDT Anticoagulation Centralized Clinical Pharmacy Services, Sandra Gómez [address] [place] [address] [place] [address] [facility], [address] [place] [address] 05/02/2024 9:40 AM EDT Nurse Only Ancillary, [place] [address] [place] [address] [place], Nurse, RN [address] [place] [address] 05/06/2024 9:00 AM EDT Office Visit Wound Care, [facility] [address] [place] [address] Hermes Noble MD [address] [place] [address] 06/06/2024 9:30 AM EDT Office Visit Cardiology, [place] [address] [place] [address] Yas Mckinnon CRNP [address] [place] [address] 07/23/2024 9:30 AM EST Office Visit Radiation Oncology, [facility] [address] [place] [address] IovoliKo MD [address] [place] [address] 11/06/2024 12:20 PM EDT Office Visit [facility] [address] [place] [phone] aJd Boone MD [facility] [address] [place] [address] Health Maintenance Due Date Last Done Comments [...] this encounter Medical Devices Implanted Type Area Child And Family Therapist Device Identifier Shelf Expiration Date Model / Serial / Lot Connector Nerve 2mm 15mm - [id number] Implanted:Qty : 1 on 04/27/2023 by Dudley Hinojosa MD at OR [facility] Left: Face [employer] [id number] 12/24/2024 [id number] / / [id number] Alloderm 4x7 Thin 0.8-1.2 (28 Units) - [id number] - [id number] Implanted:Qty : 28 on 04/27/2023 by Dudley Hinojosa MD at OR [facility] Left: Face ABBVIE 12/18/2024 [id number] / [id number] / [id number] Sheeting Monisha 2x3in X.020in - [id number] Implanted:Qty : 1 on 04/27/2023 by Dudley Hinojosa MD at OR [facility] Left: Ear [employer] 09/25/2024 / / [id number] Sheeting Monisha 2x3 In X.005in - [id number] Implanted:Qty : 1 on 12/12/2023 by Gurvinder Garcia MD at OR [facility] Left: Ear [employer] 04/05/2026 / / [id number] Cath Pwr Picc Solo Inj 4f - [id number] Implanted:Qty : 1 on 01/26/2024 at [facility] CR BARD : ACCESS SYSTEMS [id number] 06/20/2025 [id number] / / [id number] documented as of this encounter Additional Health Concerns Infection Onset Date Last Indicated Resolved Time C. 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
--- OUTSIDE RECORDS SUMMARY | 2024-04-25 23:45 | External Medical Summary | Summary of Care ---
Author Name Unknown Organization [facility] Address [address] [place] [address] Phone [phone] Care Team Providers Care Traverse Rod Assembler Name Role Phone Emma Alonzo MD Primary Care Provider Reason for Visit * Reason Onset Date Comments Advice 04/04/2024 Encounter Details Date Type Department Care Team (Late st Contact Info) Description 04/04/[address] [place] [address] [phone] Emma Alonzo MD [facility] [address] [place] [address] Advice Allergies Active Allergy Reactions Criticality Noted Date Comments Bee Venom Hives High 03/14/2017 documented as of this encounter (statuses as of 04/05/2024) Medications Medication Sig Dispensed Refills Start Date [...] g 4 Active Vitamin D3 1.25 MG (81349 UT) Oral Capsule Take 1 Capsule by mouth once a week. Every Monday 12 Capsule 4 05/15/20 24 Active oxyCODONE HCl 5 MG Oral Capsule (Oxy IR) Take 1 Capsule by mouth every 6 hours as needed for Pain, Moderate or Pain, Severe. 10 Tablet 4 Active Vancomycin HCl 250 MG Oral Capsule (Vancocin) Take 1 Capsule by mouth every 6 hours for 7 days. 7 days 28 Capsule 4 04/12/20 24 Active Probiotic Oral Tablet Delayed ReleaseIndication s:Watery diarrhea Please dispense one generic probiotic tablet, to take three times a day, with food, for 14 days. 42 Tablet 4 04/05/20 24 Discontinu ed(Refill) documented as of this encounter (statuses as of 04/05/2024) Active Problems Problem Noted Date Diagnosed Date [...] fibrillation) 10/18/2018 Coronary artery disease invo lving [place] coronary artery without angina pectoris 01/07/2015 [facility] current use of anticoagulant therapy 0 05/01/2014 Overview: ICD-10 update of inactive term Heart failure, systolic, due to CAD 08/28/2012 Overview: ECHO 2011 - Segmental wall abnormality, severe hypokinesis of anterior septum, anterior wall, apex, distal inferior septum, distal inferior wall, and distal posterior wall EF 33% Mass of left parotid gland documented as of this encounter (statuses as of 04/05/2024) Resolved Problems Problem Noted Date Diagnosed Date [...] as of this encounter (statuses as of 04/05/2024) Immunizations Name Administration Dates Next Due COVID-19 [...] No 10/10/2023 Does the household have a [facility] source of income? (Household - for ages [...] as of this encounter Miscellaneous Notes * Addendum Note - Emma Alonzo MD - 04/05/2024 1:53 PM EDTAddended by: EMMA ALONZO on: 04/05/2024 01:53 PM Modules accepted: Orders * Telephone Encounter - Emma Alonzo MD - 04/05/2024 1:53 PM EDT Vancomycin called to Pharmacy in [place]. Emma Alonzo MD 04/05/2024 * Telephone Encounter - Jemma Reyes LPN - 04/05/2024 1:32 PM EDT Aimee from [place] calling to check on previous message. She is asking for this to be sent high priority. * Telephone Encounter - Ladan Cazares LPN - 04/05/2024 9:40 AM EDT Images from the original note were not included. Aimee calling from [place] regarding stool labs that were completed. Asking for PCP to review, Please advise, Pharmacy selected. [place] [facility] * Addendum Note - Emma Alonzo MD - 04/05/2024 8:59 AM EDTAddended by: EMMA ALONZO on: 04/05/2024 08:59 AM Modules accepted: Orders * Telephone Encounter - Cynthia Roberts LPN - 04/04/2024 2:35 PM EDT Please send probiotic order to [facility] thank you * Telephone Encounter - Cynthia Roberts LPN - 04/04/2024 2:30 PM EDT T/C to [facility] at this time. LVM to Sarah at this time to review below information, no answer LVM to call clinic back at [phone] * Telephone Encounter - Emma Alonzo MD - 04/04/2024 2:11 PM EDT C diff ordered. Taking a probiotic three times a day with meals for two weeks, may also help. Emma Alonzo MD 04/04/2024 * Telephone Encounter - Jes Mahmood LPN - 04/04/2024 8:23 AM EDT Sarah from [place] the [facility] is calling. Reports that the pt returned to the [facility] yesterday and had Cdiff while on the Rehab side and finished his vancomycin there. Since returning to the [facility], around 6 PM pt noted diarrhea started [...] Description 04/08/2024 10:40 AM EDT Office Visit [place] [address] [address] [place] [address] Emma Alonzo MD [facility] [address] [place] [address] 04/11/2024 6:15 PM EDT Anticoagulation Centralized Clinical Pharmacy Services, [facility] [address] [place] [address] [place] [address] [facility], [address] [place] [address] 05/06/2024 9:00 AM EDT Office Visit Wound Care, [facility] [address] [place] [address] Hermes Noble MD [address] [place], [place] [phone] 06/06/2024 9:30 AM EDT Office Visit Cardiology, [facility] [address] [place] [address] Yas Mckinnon CRNP [address] [place] [address] 07/23/2024 9:30 AM EST Office Visit Radiation Oncology, [facility] [address] [place], [place] [phone] Ko Grace MD [address] [place] [address] Scheduled Orders Name Type Priority Associated Diagnoses Orde r Schedule CLOSTRIDIUM DIFFICILE, PCR Lab Routine Watery diarrhea Expected: 04/04/2024 (Approximate), Expires: 04/04/2025 Health Maintenance Due Date Last Done Comments Albumin/Creatinine Ratio 1963 Hepatitis C Screening 1963 Adult Wellness Visit 2012 Zoster Vaccines (2 of 3) 06/26/2014 05/01/2014 *SPIROMETRY ONCE FOR ASTHMA-ADULT 07/14/2022 COVID-19 Vaccine ( - season) 2023 06/01/2023, 11/26/2020, 11/05/2020 Influenza Vaccine [...] this encounter Medical Devices Implanted Type Area Senior Environmental Engineer Device Identifier Shelf Expiration Date Model / Serial / Lot Connector Nerve 2mm 15mm - [id number] Implanted:Qty : 1 on 04/27/2023 by Dudley Hinojosa MD at OR [facility] [place] Left: Face [employer] [id number] 12/24/2024 [id number] / / [id number] Alloderm 4x7 Thin 0.8-1.2 (28 Units) - [id number] - [id number] Implanted:Qty : 28 on 04/27/2023 by Dudley Hinojosa MD at OR [facility] [place] Left: Face ABBVIE 12/18/2024 [id number] / [id number] / [id number] Sheeting Monisha 2x3in X.020in - [id number] Implanted:Qty : 1 on 04/27/2023 by Dudley Hinojosa MD at OR [facility] [place] Left: Ear [employer] 09/25/2024 / [id number] Sheeting Monisha 2x3 In X.005in - [id number] Implanted:Qty : 1 on 12/12/2023 by Gurvinder Garcia MD at OR [facility] [place] Left: Ear [employer] 04/05/2026 / [id number] Cath Pwr Picc Solo Inj 4f - [id number] Implanted:Qty : 1 on 01/26/2024 at [facility] CR BARD : ACCESS SYSTEMS [id number] 06/20/2025 [id number] / / [id number] documented as of this encounter Visit Diagnoses Diagnosis Watery diarrhea- Primary documented in this encounter Additional Health Concerns Infection Onset Date Last Indicated Resolved Time C. difficile 03/18/2024 04/04/2024 C. difficile Rule-Out 04/04/2024 04/04/20242023 8:13 AM EDT documented as of this encounter Advance Directives Documents on File Type Date Recorded Patient Party Plan Demonstrator Expl anation POLST 02/16/2024 signed on 12/17 [place] ORDERS FOR LIFE-SUSTAINING TREATMENT POLST 04/26/2023 Signed [...] Name Relationship Healthcare Agent Relationshi p Communication Brody Varela Adult Child Power of Web Marketing Specialist Care Teams Traverse Rod Assembler Relationship Specialty Start Date End Date Emma Alonzo MD [address] [facility] [address] [place] [address] PCP - General Family Medicine 09/20/23 documented as of this encounter
--- OUTSIDE RECORDS SUMMARY | 2024-04-25 23:45 | External Medical Summary | Summary of Care ---
Author Name Unknown Organization [facility] Address [address] [place] [address] Phone [phone] Care Team Providers Care Utility Aide Name Role Phone Jad Boone MD Primary Care Provider Reason for Visit * Reason Onset Date Comments Home Health 04/05/2024 Encounter Details Date Type Department Care Team (Late st Contact Info) Description 04/05/[address] [place] [address] [phone] Jad Boone MD [facility] [address] [place] [phone] Home Health Allergies Active Allergy Reactions Criticality Noted Date [...] g 02/21/2024 Active Vitamin D3 1.25 MG (60795 UT) Oral Capsule Take 1 Capsule by [...] for 14 days. 42 Tablet 04/05/2024 Active documented as of this encounter (statuses [...] fibrillation) 10/18/2018 Coronary artery disease invo lving [place] coronary artery without angina pectoris 01/07/2015 [facility] current use of anticoagulant therapy 0 05/01/2014 [...] Date Diagnosed Date Resolved Date Encephalopathy acute 02/15/202402/20/ 024 Malignant neoplasm of head, face and neck 10/04/2023 02/27/2024 Overview: duplicate Ankylosing spondylitis of un specified sites in spine 08/16/2023 10/04/2023 Overview: CT 2022: "ossification of the supraspinous ligament consistent with ankylosing spondylitis. ". Closed T10 spinal fracture 03/28/2023 1 10/17/2022 Heart failure, diastolic, wi th acute decompensation 03/28/2023 08/16/2023 Symptomatic anemia 04/02/2022 Acute blood loss anemia 04/02/202210/20 Hypoxia 03/31/2022 04/02/2022 TILLEY (dyspnea on exertion) [...] (15 years old or older) Yes 01/24/20 Cognitive Status Response Date of Assessm ent Because of a physical, menta l, or emotional condition, do you have serious difficulty concentrating, remembering, or making decisions? (5 years old or older) No 01/24/2024 documented as of this encounter Miscellaneous Notes * Telephone Encounter - Ladan Cazares LPN - 04/05/2024 10:00 AM EDT Admission/Start of Care Admission/Start of Care: Ashlee RN, Calling from: [facility] Referral ordered by: Antonio Landrum Referral received for: Mcc Planned start of care date:Yes, Date 04/05 Start of care completed on: YES Report/Concerns of:None Symptoms: none Vitals: T 98.6 P 74 RR 16 BP 140/64 SP O2 95% RA They will call with any updates or additional concerns from the upcoming HH visit. Last Office Visit: 01/02/2024 Has patient been scheduled or seen in the office for a follow up visit: Yes- on04/08 Advised that orders will be signed by Jad Boone MD and to fax to the office for signature. documented in this encounter Plan of Treatment Upcoming Encounters Date Type Department Care Team (Late st Contact Info) Description 04/08/2024 10:40 AM EDT Office Visit [address] [place] [phone] Jad Boone MD [address] [place] [address] [place] [address] 04/11/2024 6:15 PM EDT Anticoagulation Centralized Clinical Pharmacy Services, Sandra G[facility]mez [address] [place] [address] [place] [address] [facility], [address] [place] [address] 05/06/2024 9:00 AM EDT Office Visit Wound Care, [facility] [address] [facility] [place] [phone] Hermes Noble MD [address] [place] [address] 06/06/2024 9:30 AM EDT Office Visit Cardiology, [place] [address] [place] [address] [facility] [address] [facility] [address] 07/23/2024 9:30 AM EST Office Visit Radiation Oncology, [facility] [address] [facility] [address] IovoliKo MD [address] [place] [address] Health Maintenance Due Date Last Done Comments [...] this encounter Medical Devices Implanted Type Area Joint Finisher Device Identifier Shelf Expiration Date Model / Serial / Lot Connector Nerve 2mm 15mm - [id number] Implanted:Qty : 1 on 04/27/2023 by Dudley Hinojosa MD at OR [facility] Left: Face [employer] [id number] 12/24/2024 [id number] / / [id number] Alloderm 4x7 Thin 0.8-1.2 (28 Units) - [id number] - [id number] Implanted:Qty : 28 on 04/27/2023 by Dudley Hinojosa MD at OR [facility] Left: Face ABBVIE 12/18/2024 [id number] / [id number] / [id number] Sheeting Monisha 2x3in X.020in - [id number] Implanted:Qty : 1 on 04/27/2023 by Dudley Hinojosa MD at OR [facility] Left: Ear [employer] 09/25/2024 / / [id number] Sheeting Monisha 2x3 In X.005in - [id number] Implanted:Qty : 1 on 12/12/2023 by Gurvinder Garcia MD at OR [facility] Left: Ear [employer] 04/05/2026- / / [id number] Cath Pwr Picc Solo Inj 4f - [id number] Implanted:Qty : 1 on 01/26/2024 at [facility] CR BARD : ACCESS SYSTEMS [id number] 06/20/2025 [id number] / / [id number] documented as of this encounter Additional Health Concerns Infection Onset Date Last Indicated Resolved Time C. difficile 03/18/2024 04/04/2024 C. difficile Rule-Out 04/04/2024 04/04/20242023 8:13 AM EDT documented as of this encounter Advance Directives Documents on File Type Date Recorded Patient Weigher Alloy Expl anation POLST 02/16/2024 signed on 12/17 [place] ORDERS FOR LIFE-SUSTAINING TREATMENT POLST 04/26/2023 Signed [...] Agents on File Name Relationship Healthcare Agent [facility] Health[facility] p Communication Brody Avery Adult Child Power of Earthmoving Labourer Care Teams Utility Aide Relationship Specialty Start Date End Date Jad Boone MD [address] [place] [address] [place] [address] PCP - General Family Medicine 09/20/23 documented as of this encounter
--- OUTSIDE RECORDS SUMMARY | 2024-04-25 23:45 | External Medical Summary | Summary of Care ---
Author Name Unknown Organization [facility] Address [address] [place] [address] Phone [phone] Care Team Providers Care Suture Polisher Name Role Phone Emma Alonzo MD Primary Care Provider Reason for Visit * Reason Onset Date Comments Advice 04/04/2024 Encounter Details Date Type Department Care Team (Late st Contact Info) Description 04/04/[address] [place] [address] [phone] Emma Alon[address] [facility] [address] [place] [address] Advice Allergies Active Allergy Reactions Criticality [...] g 4 Active Vitamin D3 1.25 MG (51908 UT) Oral Capsule Take 1 Capsule by [...] fibrillation) 10/18/2018 Coronary artery disease invo lving [place] coronary artery without angina pectoris 01/07/2015 assisted [...] No 10/10/2023 Does the household have a [facility] source [facility] income? (Household - for [...] 3:23 PM EDT T/C to Sarah at [facility] for her to return call please inform of script at the pharmacy thank you * Addendum Note - Emma Alonzo MD - 04/05/2024 1:53 PM EDTAddended by: EMMA ALONZO on: 04/05/2024 01:53 PM Modules accepted: Orders * Telephone Encounter - Emma Alonzo MD - 04/05/2024 1:53 PM EDT Vancomycin called to Pharmacy in [place]. Emma Alonzo MD 04/05/2024 * Telephone Encounter - Jemma Reyes LPN - 04/05/2024 1:32 PM EDT Aimee from [place] calling to check on previous message. She is asking for this to be sent high priority. * Telephone Encounter - Ladan Cazares LPN - 04/05/2024 9:40 AM EDT Images from the original note were not included. Aimee calling from [place] regarding stool labs that were completed. Asking for PCP to review, Please advise, Pharmacy selected. [place] [facility] * Addendum Note - Emma Alonzo MD - 04/05/2024 8:59 AM EDTAddended by: EMMA ALONZO on: 04/05/2024 08:59 AM Modules accepted: Orders * Telephone Encounter - Cynthia Roberts LPN - 04/04/2024 2:35 PM EDT Please send probiotic order to [facility] thank you * Telephone Encounter - Cynthia Roberts LPN - 04/04/2024 2:30 PM EDT T/C to [facility] at this time. LVM to Sarah at this time to review below information, no answer LVM to call clinic back at [phone] * Telephone Encounter - Emma Alonzo MD - 04/04/2024 2:11 PM EDT C diff ordered. Taking a probiotic three times a day with meals for two weeks, may also help. Emma Alonzo MD 04/04/2024 * Telephone Encounter - Jes Mahmood LPN - 04/04/2024 8:23 AM EDT [facility]. Reports that the pt returned to the [facility] yesterday and had Cdiff while on the Rehab side and finished his vancomycin there. Since returning to the [facility], around 6 PM pt noted [...] Description 04/08/2024 10:40 AM EDT Office Visit [place] [address] [address] [place] [address] Emma Alonzo MD [address] [place] [address] [place] [address] 04/11/2024 6:15 PM EDT Anticoagulation [facility] Clinical Pharmacy Services, [facility] [address] [place] [address] [place] [address] [facility], [address] [place] [address] 05/06/2024 9:00 AM EDT Office Visit Wound Care, [address] [address] Hermes Noble MD [address] [place] [address] 06/06/2024 9:30 AM EDT Office Visit Cardiology, [address] [address] Yas Mckinnon CRNP [address] [place] [address] 07/23/2024 9:30 AM EST Office Visit Radiation Oncology, [facility] [address] [place], [place] [phone] IovoliKo MD [address] [place] [address] Scheduled Orders Name Type Priority [...] this encounter Medical Devices Implanted Type Area Mate Chief Device Identifier Shelf Expiration Date Model / Serial / Lot Connector Nerve 2mm 15mm - [id number] Implanted:Qty : 1 on 04/27/2023 by Dudley Hinojosa MD at [place] [facility] [place] Left: Face [employer] [id number] 12/24/2024 [id number] / / [id number] Alloderm 4x7 Thin 0.8-1.2 (28 Units) - [id number] - [id number] Implanted:Qty : 28 on 04/27/2023 by Dudley Hinojosa MD at OR [facility] [place] [facility] Left: Face ABBVIE 12/18/2024 [id number] / [id number] / [id number] Sheeting Monisha 2x3in X.020in - [id number] Implanted:Qty : 1 on 04/27/2023 by Dudley Hinojosa MD at OR [facility] [place] [place] Left: Ear ALLIED [employer] 09/25/2024-700-20 / / [id number] Sheeting Monisha 2x3 In X.005in - [id number] Implanted:Qty : 1 on 12/12/2023 by Gurvinder Garcia MD at OR [facility] Left: Ear ALLIED BI[employer] 04/05/2026-700-05 / / [id number] Cath Pwr Picc Solo Inj 4f - [id number] Implanted:Qty : 1 on 01/26/2024 at [facility] CR BARD : ACCESS SYSTEMS [id number] 06/20/2025 [id number] / / [id number] documented as of this encounter Visit Diagnoses Diagnosis Watery diarrhea- Primary documented in this encounter Additional Health Concerns Infection Onset Date Last Indicated Resolved Time C. difficile 03/18/2024 04/04/2024 C. difficile Rule-Out 04/04/2024 04/04/20242023 8:13 AM EDT documented as of this encounter Advance Directives Documents on File Type Date Recorded Patient Long Lines Operator Expl anation POLST 02/16/2024 signed on 12/17 [place] ORDERS FOR LIFE-SUSTAINING TREATMENT POLST 04/26/2023 Signed [...] Agents on File Name Relationship Healthcare Agent [facility] Communication [facility] Adult Child Power of Motor Vehicles Inspector Care Teams Suture Polisher Relationship Specialty Start Date End Date Emma Alonzo MD [facility]2 [place] [address] [place] [address] PCP - General Family Medicine 09/20/23 documented as of this encounter
--- OUTSIDE RECORDS SUMMARY | 2024-04-25 23:45 | External Medical Summary | Summary of Care ---
Author Name Unknown Organization [facility] Address [address] [place] [address] Phone [phone] Care Team Providers Care Client Manager Name Role Phone Emma Alonzo MD Primary Care Provider Reason for Visit * Reason Onset Date Comments Advice 04/04/2024 Encounter Details Date Type Department Care Team (Late st Contact Info) Description 04/04/[address] [place] [address] [phone] Emma Alonzo MD [facility]2 [facility] [address] [place] [address] Advice Allergies Active Allergy Reactions Criticality [...] g 02/21/2024 Active Vitamin D3 1.25 MG (05931 UT) Oral Capsule Take 1 Capsule by [...] fibrillation) 10/18/2018 Coronary artery disease invo lving [place] coronary artery without angina pectoris 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 ". Closed T10 spinal fracture 03/28/2023 1 10/17/2022 Heart failure, diastolic, wi th acute decompensation 03/28/2023 08/16/2023 Symptomatic anemia 04/02/2022 Acute blood loss anemia 04/02/2022 0303/2023 Hypoxia 03/31/2022 04/02/2022 TILLEY (dyspnea on exertion) [...] encounter Miscellaneous Notes * Telephone Encounter - Jemma Reyes LPN - 04/05/2024 1:32 PM EDT Aimee from [facility] calling to check on previous message. She is asking for this to be sent high priority. * Telephone Encounter - Ladan Cazares LPN - 04/05/2024 9:40 AM EDT Images from the original note were not included. Aimee calling from [facility] regarding stool labs that were completed. Asking for PCP to review, Please advise, Pharmacy selected. [facility] * Addendum Note - Emma Alonzo MD - 04/05/2024 8:59 AM EDTAddended by: EMMA ALONZO on: 04/05/2024 08:59 AM Modules accepted: Orders * Telephone Encounter - Cynthia Roberts LPN - 04/04/2024 2:35 PM EDT Please send probiotic order to [facility] thank you * Telephone Encounter - Cynthia Roberts LPN - 04/04/2024 2:30 PM EDT T/C to [facility] at this time. LVM to Sarah at this time to review below information, no answer LVM to call clinic back at [phone] * Telephone Encounter - Emma Alonzo MD - 04/04/2024 2:11 PM EDT C diff ordered. Taking a probiotic three times a day with meals for two weeks, may also help. Emma Alonzo MD 04/04/2024 * Telephone Encounter - Jes Mahmood LPN - 04/04/2024 8:23 AM EDT Sarah from [facility] is calling. Reports that the pt returned to the [facility] yesterday and had Cdiff while on the Rehab side and finished his vancomycin there. Since returning to the [facility], around 6 PM pt noted [...] Description 04/08/2024 10:40 AM EDT Office Visit [place] [address] [place] [address] Emma Alonzo MD [address] [place] [address] [place] [address] 04/11/2024 6:15 PM EDT Anticoagulation [facility] Clinical Pharmacy Services, Sandra Gómez [address] [place] [address] [place] [address] [place] [address] 05/06/2024 9:00 AM EDT Office Visit Wound Care, [facility] [address] [place] [address] Hermes Noble MD [address] [place] [address] 06/06/2024 9:30 AM EDT Office Visit Cardiology, [place] [address] [place] [address] Yas Mckinnon CRNP [address] [place] [address] 07/23/2024 9:30 AM EST Office Visit Radiation Oncology, [facility] [address] [place] [address] Ko Grace MD [address] [place] [address] Scheduled Orders Name Type Priority [...] this encounter Medical Devices Implanted Type Area Student Finance Advisor Device Identifier Shelf Expiration Date Model / Serial / Lot Connector Nerve 2mm 15mm - [id number] Implanted:Qty : 1 on 04/27/2023 [place] H[place] [facility] [place] Face [employer] [id number] 12/24/2024 [id number] / / [id number] Alloderm 4x7 Thin 0.8-1.2 (28 Units) - [id number] - [id number] Implanted:Qty : 28 on 04/27/2023 by Dudley Hinojosa [place] [facility] [place]: Face ABBVIE 12/18/2024 [id number] / [id number] / [id number] Sheeting Monisha 2x3in X.020in - [id number] Implanted:Qty : 1 on 04/27/2023 by Dudley Hinojosa MD [place] [facility] [place]: Ear [employer]IED [employer] 09/25/2024- / / [id number] Sheeting Monisha 2x3 In X.005in - [id number] Implanted:Qty : 1 on 12/12/2023 by Gurvinder Garcia MD [place] [facility] [place]: Ear [employer] 04/05/2026- / / [id number] Cath Pwr Picc Solo Inj 4f - [id number] Implanted:Qty : 1 on 01/26/2024 [place] [facility] CR BARD : ACCESS SYSTEMS [id number] 06/20/2025 [id number] / / [id number] documented as of this encounter Visit Diagnoses Diagnosis Watery diarrhea- Primary documented in this encounter Additional Health Concerns Infection Onset Date Last Indicated Resolved Time C. difficile 03/18/2024 04/04/2024 C. difficile Rule-Out 04/04/2024 04/04/20242023 8:13 AM EDT documented as of this encounter Advance Directives Documents on File Type Date Recorded Patient Weight Control Lecturer Mary Lou doll POLST 02/16/2024 signed on 12/17 [place] ORDERS FOR LIFE-SUSTAINING TREATMENT POLST 04/26/2023 Signed [...] Relationship Healthcare Agent Relationshi p Communication Brody Avery Adult Child Power of Director Business Development Care Teams Client Manager Relationship Specialty Start Date End Date Emma Alonzo MD [address] [facility] [address] [place] [address] PCP - General Family Medicine 09/20/23 documented as of this encounter
--- OUTSIDE RECORDS SUMMARY | 2024-04-25 23:45 | External Medical Summary | Summary of Care ---
Author Name Unknown Organization [facility] Address [address] [place] [address] Phone [phone] Care Team Providers Care Social Secretary Name Role Phone Jad Boone MD Primary Care Provider Encounter Details Date Type Department Care Team (Late st Contact Info) Description 04/08/2024 12:30 PM EDT Scheduled Telephone Care Coordination and Integration [address] [place], [place] [phone] Alyson Murphy Community Health Bag Cutter [address] [place], [place] [phone] Allergies Active Allergy Reactions Criticality Noted Date [...] g 02/21/2024 Active Vitamin D3 1.25 MG (63426 UT) Oral Capsule Take 1 Capsule by [...] fibrillation) 10/18/2018 Coronary artery disease invo lving [place] coronary artery without angina pectoris 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 "He will be there until he dies" Patient reported he had someone there and he would like a call back tomorrow. CHW will give him a call tomorrow and patient ended call. Alyson Murphy- Community Health Worker 1 Support Services/[facility] [email or web address] documented in this encounter Plan of Treatment Upcoming Encounters Date Type Department Care Team (Late st Contact Info) Description 04/09/2024 11:00 AM EDT Scheduled Telephone Care Coordination and Integration [address] [facility] [place] [address] Alyson Murphy, Community Health Bag Cutter [address] [facility] [place] [address] 04/11/2024 6:15 PM EDT Anticoagulation Centralized Clinical Pharmacy Services, Sandra G[facility]mez [address] [place] [address] [place] [address] Ccps, [address] [place] [address] 05/02/2024 9:40 AM EDT Nurse Only Ancillary, K[address] [place] [address] Kb, Nurse, RN [address] [place] [address] 05/06/2024 9:00 AM EDT Office Visit Wound Care, [facility] [address] [place] [address] Hermes Noble MD [address] [place] [address] 06/06/2024 9:30 AM EDT Office Visit Cardiology, [place] [address] [place] [address] Yas Mckinnon CRNP [address] [place] [address] 07/23/2024 9:30 AM EST Office Visit Radiation Oncology, [facility] [address] [place] [address] IovoliKo MD [address] [place] [address] 11/06/2024 12:20 PM EDT Office Visit [facility] [address] [place] [phone] Jad Boone MD [facility]2 [facility] [address] [place] [address] Health Maintenance Due Date Last Done Comments [...] this encounter Medical Devices Implanted Type Area Petal Shaper Hand Device Identifier Shelf Expiration Date Model / Serial / Lot Connector Nerve 2mm 15mm - [id number] Implanted:Qty : 1 on 04/27/2023 by [place] [facility] [place]: Face [employer] [id number] 12/24/2024 [id number] / / [id number] Alloderm 4x7 Thin 0.8-1.2 (28 Units) - [id number] - [id number] Implanted:Qty : 28 on 04/27/2023 by Dudley Hinojosa MD [place] [facility] [place]: Face ABBVIE 12/18/2024 [id number] / [id number] / [id number] Sheeting Monisha 2x3in X.020in - [id number] Implanted:Qty : 1 on 04/27/2023 by Dudley Hinojosa MD [place] [facility] [place]: Ear [employer] 09/25/2024 23-700-20 / / [id number] Sheeting Monisha 2x3 In X.005in - [id number] Implanted:Qty : 1 on 12/12/2023 by Gurvinder Garcia MD at [facility] Left: Ear [employer] 04/05/2026 23-700-05 / / [id number] Cath Pwr Picc Solo Inj 4f - [id number] Implanted:Qty : 1 on 01/26/2024 at [facility] CR BARD : ACCESS SYSTEMS [id number] 06/20/2025 [id number] / / [id number] documented as of this encounter Additional Health Concerns Infection Onset Date Last Indicated Resolved Time C. difficile 03/18/2024 04/04/2024 documented as of this encounter Advance Directives Documents on File Type Date Recorded Patient Donkey Engine Firer/Fireman Expl anation POLST 02/16/2024 signed on 12/17 [...] Communication Brody Varela Adult Child Power of Staple Shear Operator Care Teams Social Secretary Relationship Specialty Start Date End Date Jad Boone MD [address] [facility] [address] [facility] [place] [address] PCP - General Family Medicine 09/20/23 documented as of this encounter
--- OUTSIDE RECORDS SUMMARY | 2024-04-25 23:45 | External Medical Summary | Summary of Care ---
Author Name Unknown Organization [facility] Address [address] [place] [address] Phone [phone] Care Team Providers Care Coat Hanger Shaper Machine Operator Name Role Phone Emma Alonzo MD Primary Care Provider Reason for Visit * Reason Onset Date Comments Advice 04/04/2024 Encounter Details Date Type Department Care Team (Late st Contact Info) Description 04/04/[address] [place] [address] [phone] Emma Alonzo MD [facility]2 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 Aimee calling from [facility] regarding stool labs that were completed. Asking for PCP to review, Please advise, Pharmacy selected. [facility] * Addendum Note - Emma Alonzo MD - 04/05/2024 8:59 AM EDTAddended by: EMMA ALONZO on: 04/05/2024 08:59 AM Modules accepted: Orders * Telephone Encounter - Cynthia Roberts LPN - 04/04/2024 2:35 PM EDT Please send probiotic order to [facility] thank you * Telephone Encounter - Cynthia Roberts LPN - 04/04/2024 2:30 PM EDT T/C to OWEN Grimaldo at this time. LVM to Sarah at this time to review below information, no answer LVM to call clinic back at [phone] * Telephone Encounter - Emma Alonzo MD - 04/04/2024 2:11 PM EDT C diff ordered. Taking a probiotic three times a day with meals for two weeks, may also help. Emma Alonzo MD 04/04/2024 * Telephone Encounter - Jes Mahmood LPN - 04/04/2024 8:23 AM EDT Sarah from [facility] is calling. Reports that the pt returned to the [facility] yesterday and had Cdiff while on the Rehab side and finished his vancomycin there. Since returning to the [facility], around 6 PM pt [...] Description 04/08/2024 10:40 AM EDT Office Visit [place] [address] [address] [place] [address] Emma Alonzo MD [address] [place] [address] [place] [address] 04/11/2024 6:15 PM EDT Anticoagulation [facility] Clinical Pharmacy Services, Sandra Gómez [address] [place] [address] [place] [address] [facility], [address] [place] [address] 05/06/2024 9:00 AM EDT Office Visit Wound Care, [facility] 400 [facility] [place] [address] Hermes Noble MD 27 [facility] [place] [address] 06/06/2024 9:30 AM EDT Office Visit Cardiology, [facility] [address] [place] [address] Yas Mckinnon CRNP [address] [place], [place] 4418[address] 07/23/2024 9:30 AM EST Office Visit Radiation Oncology, [facility] [address] [place], [place] [phone] IovolKo aleman MD [address] [place] [address] Scheduled Orders Name Type Priority [...] this encounter Medical Devices Implanted Type Area Silver Steward Device Identifier Shelf Expiration Date Model / Serial / Lot Connector Nerve 2mm 15mm - [id number] Implanted:Qty : 1 on 04/27/2023 by [place] [facility] [place]: Face [employer] [id number] 12/24/2024 [id number] / / [id number] Alloderm 4x7 Thin 0.8-1.2 (28 Units) - [id number] - [id number] Implanted:Qty : 28 on 04/27/2023 by Dudley Hinojosa MD [place] [facility] [place]: Face ABBVIE 12/18/2024 [id number] / [id number] / [id number] Sheeting Monisha 2x3in X.020in - [id number] Implanted:Qty : 1 on 04/27/2023 by Dudley Hinojosa MD [place] [facility] [place]: Ear [employer] 09/25/2024 / / [id number] Sheeting Monisha 2x3 In X.005in - [id number] Implanted:Qty : 1 on 12/12/2023 by Gurvinder Garcia MD [place] [facility] [place]: Ear [employer] 04/05/2026- / / [id number] Cath Pwr Picc Solo Inj 4f - [id number] Implanted:Qty : 1 on 01/26/2024 at [facility] CR BARD : ACCESS SYSTEMS [id number] 06/20/2025 [id number] / / [id number] documented as of this encounter Visit Diagnoses Diagnosis Watery diarrhea- Primary documented in this encounter Additional Health Concerns Infection Onset Date Last Indicated Resolved Time C. difficile 03/18/2024 04/04/2024 C. difficile Rule-Out 04/04/2024 04/04/20242023 8:13 AM EDT documented as of this encounter Advance Directives Documents on File Type Date Recorded Patient Casing Splitter Expl anation POLST 02/16/2024 signed on 12/17 [place] ORDERS FOR LIFE-SUSTAINING TREATMENT POLST 04/26/2023 Signed [...] Agents on File Name Relationship Healthcare Agent [facility] Communication Brody Avery Adult Child Power of Work Measurement Engineer Care Teams Coat Hanger Shaper Machine Operator Relationship Specialty Start Date End Date Emam Alonzo MD [address] [facility] [address] [place] [address] PCP - General Family Medicine 09/20/23 documented as of this encounter
--- OUTSIDE RECORDS SUMMARY | 2024-04-25 23:45 | External Medical Summary | Summary of Care ---
Author Name Unknown Organization [facility] Address [address] [place] [address] Phone [phone] Care Team Providers Care Anchorer Name Role Phone Jad Boone MD Primary Care Provider Reason for Visit * Reason Onset Date Comments FYI 04/05/2024 Encounter Details Date Type Department Care Team (Late st Contact Info) Description 04/05/[address] [place] [address] [phone] Jad Boone MD [facility]2 [facility] [address] [place] [address] FYI Allergies Active Allergy Reactions Criticality Noted Date [...] g 4 Active Vitamin D3 1.25 MG (90414 UT) Oral Capsule Take 1 Capsule by [...] for 14 days. 42 Tablet 4 Active Probiotic Oral Tablet Delayed [...] fibrillation) 10/18/2018 Coronary artery disease invo lving [place] coronary artery without angina pectoris 01/07/2015 nursing home current use of anticoagulant therapy 0 05/01/2014 [...] anemia 04/02/2022 032 03/2023 Hypoxia 03/31/2022 04/02/2022 TILLEY (dyspnea on [...] mRNA, LNP-s, No Pre serve, 2-Dose Series ([employer]) 11/26/2020,11/05/2020 Pneumococcal Conjugate Vacc, 13 Valent (Prevnar) [...] EDT patient aware * Telephone Encounter - Jad Boone MD - 04/05/2024 1:37 PM EDT Changed to [place] Jad Boone MD 04/05/2024 * Telephone Encounter - Jemma Reyes LPN - 04/05/2024 1:31 PM EDT Aimee from [facility] calling to check on previous message. She is asking for this to be sent high priority. * Telephone Encounter - Lupe Sherwood LPN - 04/05/2024 11:12 AM EDT KAI Yu calling from [facility]. Need the order for probiotic sent to [facility] in [place]. Also, if any antibiotics ordered for the future, please send to [facility] in [place]. Called [facility] and cancelled order. Called [facility] in [place]. Given verbal order. It is not covered by insurance and will cost the patient $4.65 for the bottle. Called Aimee at [facility] and informed medication ordered at [facility] in [place]. It is not covered by insurance and will cost $4.65 for the bottle. Verbalized understanding. documented in this encounter Plan of Treatment Upcoming Encounters Date Type Department Care Team (Late st Contact Info) Description 04/08/2024 10:40 AM EDT Office Visit [place] [address] [address] [place] [address] Jad Boone MD [address] [place] [address] 04/11/2024 6:15 PM EDT Anticoagulation Centralized Clinical Pharmacy Services, [address] [place] [address] [place] [address] 05/06/2024 9:00 AM EDT Office Visit Wound Care, [facility] [address] [place] [address] Hermes Noble MD [address] [place] [address] 06/06/2024 9:30 AM EDT Office Visit Cardiology, [place] [address] [place] [address] Yas Mckinnon CRNP [address] [place] [address] 07/23/2024 9:30 AM EST Office Visit Radiation Oncology, [facility] [address] [place], [place] [phone] Ko Grace MD [address] [place] [address] Health Maintenance Due Date Last Done Comments [...] this encounter Medical Devices Implanted Type Area Assisted Living Associate Device Identifier Shelf Expiration Date Model / Serial / Lot Connector Nerve 2mm 15mm - [id number] Implanted:Qty : 1 on 04/27/2023 by Dudley Hinojosa MD [place] [facility] [place] Left: Face [employer] [id number] 12/24/2024 [id number] / / [id number] Alloderm 4x7 Thin 0.8-1.2 (28 Units) - [id number] - [id number] Implanted:Qty : 28 on 04/27/2023 by Dudley Hinojosa MD [place] [facility] [place] Left: Face ABBVIE 12/18/2024 [id number] / [id number] / [id number] Sheeting Monisha 2x3in X.020in - [id number] Implanted:Qty : 1 on 04/27/2023 by Dudley Hinojosa MD at [place] [facility] [place] Left: Ear [employer] 09/25/2024 23-700-20 / / [id number] Sheeting Monisha 2x3 In X.005in - [id number] Implanted:Qty : 1 on 12/12/2023 by Gurvinder Garcia MD at [facility] Left: Ear [employer]IED BI[employer] 04/05/2026 23-700-05 / / [id number] Cath Pwr Picc Solo Inj 4f - [id number] Implanted:Qty : 1 on 01/26/2024 at [facility] CR BARD : ACCESS SYSTEMS [id number] 06/20/2025 [id number] / / [id number] documented as of this encounter Visit Diagnoses Diagnosis Watery diarrhea documented in this encounter Additional Health Concerns Infection Onset Date Last Indicated Resolved Time C. difficile 03/18/2024 04/04/2024 C. difficile Rule-Out 04/04/2024 04/04/20242023 8:13 AM EDT documented as of this encounter Advance Directives Documents on File Type Date Recorded Patient Farmer Cash Grain Expl anation POLST 02/16/2024 signed on 12/17 [place] ORDERS FOR LIFE-SUSTAINING TREATMENT POLST 04/26/2023 Signed [...] Communication Brody Avery Adult Child Power of Plate Colorer Care Teams Anchorer Relationship Specialty Start Date End Date Jad Boone MD [address] [facility] [address] [place] [address] PCP - General Family Medicine 09/20/23 documented as of this encounter
--- OUTSIDE RECORDS SUMMARY | 2024-04-25 23:45 | External Medical Summary | Summary of Care ---
Author Name Unknown Organization [facility] Address [address] [place] [address] Phone [phone] Care Team Providers Care Freight Car Repairer Name Role Phone Jad Boone MD Primary Care Provider Reason for Visit * Reason Onset Date Comments FYI 04/05/2024 Encounter Details Date Type Department Care Team (Late st Contact Info) Description 04/05/[address] [place] [address] [phone] Jad Boone MD [facility] [address] [place] [phone] FYI Allergies Active Allergy Reactions Criticality [...] g 4 Active Vitamin D3 1.25 MG (69729 UT) Oral Capsule Take 1 Capsule by [...] fibrillation) 10/18/2018 Coronary artery disease invo lving [place] coronary artery without angina pectoris 01/07/2015 detention current use of anticoagulant therapy 0 05/01/2014 [...] mRNA, LNP-s, No Pre serve, 2-Dose Series (Character Booster) 11/26/2020,11/05/2020 Pneumococcal Conjugate Vacc, 13 Valent (Prevnar) [...] encounter Miscellaneous Notes * Telephone Encounter - Jad Boone MD - 04/05/2024 1:37 PM EDT Changed to [place] Jad Boone MD 04/05/2024 * Telephone Encounter - Jemma Reyes LPN - 04/05/2024 1:31 PM EDT Aimee from [facility] calling to check on previous message. She is asking for this to be sent high priority. * Telephone Encounter - Lupe Sherwood LPN - 04/05/2024 11:12 AM EDT KAI Yu calling from [facility]. Need the order for probiotic sent to [facility] in [place]. Also, if any antibiotics ordered for the future, please send to [facility] in [place]. Called [facility] and cancelled order. Called [facility] in [place]. Given verbal order. It is not covered by insurance and will cost the patient $4.65 for the bottle. Called Aimee at [facility] and informed medication ordered at [facility] in [place]. It is not covered by insurance and will cost $4.65 for the bottle. Verbalized understanding. documented in this encounter Plan of Treatment Upcoming Encounters Date Type Department Care Team (Late st Contact Info) Description 04/08/2024 10:40 AM EDT Office Visit [address] [place] [address] Jad Boone MD [address] [place] [address] 04/11/2024 6:15 PM EDT Anticoagulation [facility], [address] [place] [address] [facility], [address] [place] [address] 05/06/2024 9:00 AM EDT Office Visit Wound Care, [facility] [address] [place] [address] Hermes Noble MD [address] [place] [address] 06/06/2024 9:30 AM EDT Office Visit Cardiology, [place] [address] [place] [address] Yas Mckinnon CRNP [address] [place] [address] 07/23/2024 9:30 AM EST Office Visit Radiation Oncology, [facility] [address] [place] [address] IovolKo aleman MD [address] [place] [phone] Health Maintenance Due Date Last Done Comments [...] this encounter Medical Devices Implanted Type Area Lift Operator Device Identifier Shelf Expiration Date Model / Serial / Lot Connector Nerve 2mm 15mm - [id number] Implanted:Qty : 1 on 04/27/2023 [place] [facility] [place] Face [employer] [id number] 12/24/2024 [id number] / / [id number] Alloderm 4x7 Thin 0.8-1.2 (28 Units) - [id number] - [id number] Implanted:Qty : 28 on 04/27/2023 [place] H[place] [facility] [place] Face ABBVIE 12/18/2024 [id number] / [id number] / [id number] Sheeting Monisha 2x3in X.020in - [id number] Implanted:Qty : 1 on 04/27/2023 [place] H[place] [facility] [place] Ear [employer] 09/25/2024 / [id number] Sheeting Monisha 2x3 In X.005in - [id number] Implanted:Qty : 1 on 12/12/2023 by Gurvinder Garcia [place] [facility] [place] Ear [employer] 04/05/2026 / [id number] Cath Pwr Picc Solo Inj 4f - [id number] Implanted:Qty : 1 on 01/26/2024 at [facility] [place] : [employer] [id number] 06/20/2025 [id number] / / [id number] documented as of this encounter Visit Diagnoses Diagnosis Watery diarrhea documented in this encounter Additional Health Concerns Infection Onset Date Last Indicated Resolved Time C. difficile 03/18/2024 04/04/2024 C. difficile Rule-Out 04/04/2024 04/04/20242023 8:13 AM EDT documented as of this encounter Advance Directives Documents on File Type Date Recorded Patient Manager Insurance Expl anation POLST 02/16/2024 signed on 12/17 [place] ORDERS FOR LIFE-SUSTAINING TREATMENT POLST 04/26/2023 Signed [...] Relationship Healthcare Agent Relationshi p Communication Brody Thomasn Adult Child Power of Bowling Teacher Care Teams Freight Car Repairer Relationship Specialty Start Date End Date Jad Boone MD [address] [address] [place] [address] PCP - General Family Medicine 09/20/23 documented as of this encounter
--- OUTSIDE RECORDS SUMMARY | 2024-04-25 23:45 | External Medical Summary | Summary of Care ---
Author Name Unknown Organization [facility] Address [address] [place] [address] Phone [phone] Care Team Providers Care Optical Laboratory Technician Name Role Phone Jad Boone MD Primary Care Provider Reason for Visit * Reason Onset Date Comments Home Health 04/03/2024 Encounter Details Date Type Department Care Team (Late st Contact Info) Description 04/03/[address] [place] [address] [phone] Jad Boone MD [facility]2 [facility] [address] [place] [phone] Home Health Allergies Active Allergy Reactions [...] g 02/21/2024 Active Vitamin D3 1.25 MG (35060 UT) Oral Capsule Take 1 Capsule by mouth once a week. Every Monday 12 Capsule 02/21/2024 Active oxyCODONE HCl 5 MG Oral Capsule (Oxy IR) Take 1 Capsule by mouth every 6 hours as needed for Pain, Moderate or Pain, Severe. 10 Tablet 02/21/2024 Active Vancomycin HCl 125 MG Oral Capsule (Vancocin) Take 2 Capsules by mouth every 6 hours for 7 days. 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 0 05/01/2014 [...] Date Diagnosed Date Resolved Date Encephalopathy acute 02/15/202402/20/2 024 Malignant neoplasm of head, face and [...] encounter Miscellaneous Notes * Telephone Encounter - Lupe Sherwood LPN - 04/03/2024 12:24 PM EDT Admission/Start of Care Admission/Start of Care: Kaylee technical support manager, Calling from: [facility] [employer] Patient was Admitted to: [facility], for: staph, ca left ear, c-diff, chf from 01/26 to 04/03/24 Referral ordered by: Antonio Landrum Referral received for: Intermediate Planned start of care date:Yes, Date 04/05/24 Start of care completed on: to be done 04/05/24 Narrative: Kaylee calling from [facility]. technical support manager. Asking for orders to be signed. Informed to fax them to the office and Dr. Boone will sign orders. Next Nursing visit(s) on 04/05/24 They will call with any updates or additional concerns from the upcoming visit. Last Office Visit: 01/02/2024 Has patient been scheduled or seen in the office for a follow up visit: Yes- on04/08/24 Advised that orders will be signed by Dr. Boone and to fax to the office for signature. Call back Kaylee with advice or orders at [phone] Please fax orders to [phone] documented in this encounter Plan of Treatment Upcoming Encounters Date Type Department Care Team (Late st Contact Info) Description 04/08/2024 10:40 AM EDT Office Visit [place] [address] [address] [place] [address] [phone] [facility] [address] [place] [address] [place] [address] 04/11/2024 6:15 PM EDT Anticoagulation [facility] Services, Sandra Gómez [address] [place] [address] [place] [address] [facility], [address] [place] [address] 05/06/2024 9:00 AM EDT Office Visit Wound Care, [facility] [address] [place] [address] Hermes Noble MD [address] [place] [address] 06/06/2024 9:30 AM EDT Office Visit Cardiology, [place] [address] [place] [address] Yas Mckinnon CRNP [address] [place] [address] 07/23/2024 9:30 AM EST Office Visit Radiation Oncology, [facility] [address] [place] [address] IovoliKo MD [address] [place] [phone] Health Maintenance Due Date Last Done Comments [...] this encounter Medical Devices Implanted Type Area Organ Assembler Device Identifier Shelf Expiration Date Model / Serial / Lot Connector Nerve 2mm 15mm - [id number] Implanted:Qty : 1 on 04/27/2023 by Dudley Hinojosa MD at [place] [facility] [place] Left: Face [employer] [id number] 12/24/2024 [id number] / / [id number] Alloderm 4x7 Thin 0.8-1.2 (28 Units) - [id number] - [id number] Implanted:Qty : 28 on 04/27/2023 by Dudley Hinojosa MD at [place] [facility] [place] Left: Face [employer]BB[employer]IE 12/18/2024 [id number] / [id number] / [id number] Sheeting Monisha 2x3in X.020in - [id number] Implanted:Qty : 1 on 04/27/2023 by Dudley Hinojosa MD at [place] [facility] [place] Left: Ear [employer] 09/25/2024- / / [id number] Sheeting Monisha 2x3 In X.005in - [id number] Implanted:Qty : 1 on 12/12/2023 by Gurvinder Garcia MD at [place] [facility] [place] Left: Ear [employer] 04/05/2026- / / [id number] Cath Pwr Picc Solo Inj 4f - [id number] Implanted:Qty : 1 on 01/26/2024 at [facility] [place] CR BARD : ACCESS SYSTEM[employer] [id number] 06/20/2025 [id number] / / [id number] documented as of this encounter Additional Health Concerns Infection Onset Date Last Indicated Resolved Time C. difficile 03/18/2024 04/04/2024 C. difficile Rule-Out 04/04/2024 04/04/20242023 8:13 AM EDT documented as of this encounter Advance Directives Documents on File Type Date Recorded Patient Residential Treatment Staff Expl anation POLST 02/16/2024 signed on 12/17 [place] ORDERS FOR LIFE-SUSTAINING TREATMENT POLST 04/26/2023 Signed [...] Communication Brody Avery Adult Child Power of Golf Tournament Consultant Care Teams Optical Laboratory Technician Relationship Specialty Start Date End Date Jad Boone MD [address] [facility] [address] [facility] [place] [address] PCP - General Family Medicine 09/20/23 documented as of this encounter
--- OUTSIDE RECORDS SUMMARY | 2024-04-25 23:46 | External Medical Summary ---
Author Name Unknown Address Unknown Organization K1F:[facility] - [address] [place] [address] Laboratory Report Ordering Provider Test Date Status SENG GARCIA 04/03/2024 06:34:00 Final Observation Date Value Abnormality Reference (Units ) Status WBC, Total 04/03/2024 06:34:00 9.27 4.00-10.80 (K/uL) Final RBC 04/03/2024 06:34:00 3.42 4.50-5.25 (M/uL) Final Hemoglobin 04/03/2024 06:34:00 9.6 Below low normal 14.0-16.8 (g/dL) Final HCT 04/03/2024 06:34:00 31.1 Below low normal 40.0-48.4 (%) Final MCV 04/03/2024 06:34:00 90.9 82.0-99.5 (fL) Final MCH 04/03/2024 06:34:00 28.1 27.0-34.0 (pg) Final MCHC 04/03/2024 06:34:00 30.9 32.0-36.0 (g/dL) Final RDW 04/03/2024 06:34:00 18.6 11.5-15.5 (%) Final Platelets 04/03/2024 06:34:00 220 140-400 (K/uL) Final MPV 04/03/2024 06:34:00 9.9 6.6-11.1 (fL) Final Nucleated erythrocytes/100 leukocytes [Ratio] in Blood by Automated count 04/03/2024 06:34:00 0 <=0 (/100 WBCs) Final Performing Location [facility] - [address] [place] [address]
--- OUTSIDE RECORDS SUMMARY | 2024-04-25 23:46 | External Medical Summary | Summary of Care ---
Author Name Unknown Organization [facility] Address [address] [place] [address] Phone [phone] Care Team Providers Care Personal Financial Representative Name Role Phone Jad Boone MD Primary Care Provider Reason for Visit * Reason Comments Follow Up Hospital follow up Encounter Details Date Type Department Care Team (Latest Contact Info) Description 04/02/2024 9:40 AM EDT Office Visit Infectious Disease, [address] [address] Rio Chun, DO [address] [place] [address] MRSA (methicillin resistant Staphylococcus aureus) infection* Allergies Active Allergy Reactions Criticality Noted Date Comments Bee Venom Hives High 03/14/2017 documented as of this encounter (statuses as of 04/02/2024) Medications Medication Sig Dispensed Refills Start Date [...] or Fever >38C(100.5F). 30 Tablet 02/21/2024 Active Warfarin Sodium 7.5 MG Oral Tablet (Coumadin) Take 1 Tablet by mouth every evening. 30 Tablet 02/21/2024 Active Chlorhexidine Gluconate Cloth 2 % External Pad Apply to wound Do not start before February 22, 2024. 30 Pad 1 02/22/2024 Active amLODIPine Besylate 10 MG Oral Tablet (Norvasc) Take 1 Tablet by mouth in the morning. 30 Tablet 02/22/2024 Active Miconazole Nitrate 2 % External Powder (Remedy) Apply topically to affected area 2 times a day. Apply to affected area 71 g 02/21/2024 Active Vitamin D3 1.25 MG (62748 UT) Oral Capsule Take 1 Capsule by mouth once a week. Every Monday 12 Capsule 02/21/2024 Active oxyCODONE HCl 5 MG Oral Capsule (Oxy IR) Take 1 Capsule by mouth every 6 hours as needed for Pain, Moderate or Pain, Severe. 10 Tablet 02/21/2024 Active documented as of this encounter (statuses as of 04/02/2024) Active Problems Problem Noted Date Diagnosed Date [...] fibrillation) 10/18/2018 Coronary artery disease invo lving [place] coronary artery without angina pectoris 01/07/2015 residential current use of anticoagulant therapy 0 05/01/2014 Overview: ICD-10 update of inactive term Heart failure, systolic, due to CAD 08/28/2012 Overview: ECHO 2011 - Segmental wall abnormality, severe hypokinesis of anterior septum, anterior wall, apex, distal inferior septum, distal inferior wall, and distal posterior wall EF 33% Mass of left parotid gland documented as of this encounter (statuses as of 04/02/2024) Resolved Problems Problem Noted Date Diagnosed Date [...] as of this encounter (statuses as of 04/02/2024) Immunizations Name Administration Dates Next Due COVID-19 [...] Passive Smoke Exposure: Past Smokeless Tobacco: Never Tobacco Cessation:Counseling Given: Not Answered Comments:smoked, and quit in 2003 Alcohol Use [...] No 10/10/2023 Does the household have a [facility] source of income? (Household - for [...] on file documented as of this encounter Last Filed Vital Signs Vital Sign Reading Time Taken Comments Blood Pressure 128/62 04/02/2024 9:39 AM EDT Pulse - - Temperature - - Respiratory Rate - - Oxygen Saturation - - Inhaled Oxygen Concentration - - Weight 117.9 kg (260 lb) 04/02/2024 9:39 AM EDT Height - - Body Mass Index 36.26 02/15/2024 9:24 AM EDT documented in this encounter Functional Status Functional Status Response [...] No 01/24/2024 documented as of this encounter Patient Instructions * Patient Instructions* Rio Chun DO - 04/02/2024 9:41 AM EDT Images from the original note were not included. Please make sure to do these things: Keep all appointments with all of your healthcare providers Keep a current telephone number on file with us Complete all bloodwork, imaging or other testing on time Contact us before you run out of any medication that we prescribe or recommend Continue to contact us until you have your medication in-hand Use the patient portal to communicate with us (if possible) Contact us if any of these things occur: There is something that you do not understand You are expecting a medication or refill but have not received it You have any issues with medications that we prescribe You have a significant change in your health (including ) You have a significant change in your medications You need help with scheduling tests or appointments You do not have a confirmed follow up appointment Please be aware: Failure to request refills, complete labs/imaging or keep appointments could result in adverse health outcomes It may take time for us to respond to your calls/messages. If you do not get an immediate response,continue to contact us If you experience any new/worsening/concerning symptoms, seek immediate medical attention In an urgent or emergency situation, do not wait for a reply from us. Instead, go to the nearest Emergency Department immediately (call 911 if necessary) documented in this encounter Progress Notes * Rio Chun DO - 04/02/2024 9:37 AM EDT Images from the original note were not included. INFECTIOUS DISEASE, [facility]: Stephen Varela is a 78 year old male here for follow up. Background information The patient was seen by our group at the [facility] in January of 2024. The patient was diagnosed with mastoid OM. The recommendation was to treat the patient with vancomycin and cefepime (cefepime was eventually replaced with meropenem). End of therapy (EOT) date was 03/07. Patient's current status The patient reports feeling good. He had an episode of Cdiff but this has resolved. No new complaints today. CRP was 6 as of 02/14. Review of patient's allergies indicates: Allergen Reactions Bee Venom Hives Current Outpatient Medications Medication Sig Dispense Refill Omeprazole 20 MG Oral Capsule Delayed Release (PriLOSEC) Take 1 Capsule by mouth in the morning. 90Capsule 1 Multivitamin Adult Oral Tablet Take by mouth every evening. Metoprolol Succinate ER 25 MG Oral Tablet Extended Release 24 Hour (Toprol XL) Take 1 Tablet by mouth in the morning. 90 Tablet 3 Magnesium Hydroxide 400 MG/5ML Oral Suspension (Milk of Magnesia) Take 30 mL by mouth daily as needed for Constipation. Sennosides-Docusate Sodium 8.6-50 MG Oral Tablet (Senna S) Take 1 Tablet by mouth daily as needed for Constipation. Polyethylene Glycol 3350 17 GM/SCOOP Oral Powder (MiraLax) Take 17 g by mouth daily as needed for Constipation. Sodium Hypochlorite 0.25 % External Solution Apply topically to affected area every 12 hours. 473 mL 0 EpiPen 2-Brian 0.3 MG/0.3ML Injection Solution Auto-injector Inject 1 dose intramuscularly as needed for anaphylaxis (H/O bee sting allergy) Fleet Enema Rectal Enema Insert 1 dose rectally every 72 hours as needed for constipation *if Dulcolax is ineffective* (bowel protocol) Acetaminophen 325 MG Oral Tablet (Tylenol) Take 2 Tablets by mouth every 4 hours as needed for Pain, Mild, Pain, Moderate or Fever >38C(100.5F). 30 Tablet 0 Warfarin Sodium 7.5 MG Oral Tablet (Coumadin) Take 1 Tablet by mouth every evening. 30 Tablet 0 amLODIPine Besylate 10 MG Oral Tablet (Norvasc) Take 1 Tablet by mouth in the morning. 30 Tablet 0 Miconazole Nitrate 2 % External Powder (Remedy) Apply topically to affected area 2 times a day. Apply to affected area 71 g 0 Vitamin D3 1.25 MG (71698 UT) Oral Capsule Take 1 Capsule by mouth once a week. Every Monday 12 Capsule 0 oxyCODONE HCl 5 MG Oral Capsule (Oxy IR) Take 1 Capsule by mouth every 6 hours as needed for Pain, Moderate or Pain, Severe. 10 Tablet 0 Mujcvuqzd-Yrhdcltx-Wphddc Alc 2-14-10.5 % External Cream Apply to both lower extremities once a day56 g 2 Ventolin HFA 108 (90 Base) MCG/ACT Inhalation Aerosol Solution Inhale 2 Puffs by mouth every 4 hours as needed for Shortness of Breath. Bisacodyl 10 MG Rectal Suppository (Bisacodyl Laxative) Insert 1 suppository rectally every 72 hours as needed for constipation if MoM is ineffective (bowel Protocol) Chlorhexidine Gluconate Cloth 2 % External Pad Apply to wound Do not start before February 22, 2024. 30 Pad 1 No current facility-administered medications for this visit. 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 Coronary artery disease involving [place] coronary artery without angina pectoris PAF (paroxysmal atrial fibrillation) ([facility]) Mild intermittent asthma without complication Other specified peripheral vascular diseases ([facility]) Chronic diastolic CHF (congestive heart failure) ([facility]) Essential hypertension with goal blood pressure less than 140/90 Dyslipidemia, goal LDL below 70 Atypical migraine Other specified anemias Suspected sleep apnea Mass of left parotid gland 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) Bilateral hand numbness Delayed wound healing Surgical site infection Status post incision and drainage 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 Acute osteomyelitis of temporal bone ([facility]) CLAUDY (acute kidney injury) ([facility]) PICC (peripherally inserted central catheter) in place Dysarthria Expressive aphasia Review of Systems: As reviewed in HPI; a complete ROS was otherwise negative BP 128/62 | Wt 117.9 kg (260 lb) | BMI 36.26 kg/m | BSA 2.43 m PHYSICAL EXAM: Vitals: as above Gen/Constitution: appears at stated age, NAD, nontoxic, sitting up in chair Head: AT, NC, no supplemental oxygen in place Eyes: sclera anicteric, no conjunctival injection ENT: no purulent rhinorrhea, trachea midline Resp: not tachypneic, nml effort, symmetric chest rise, no accessory muscle use GI: abdomen soft, NT, no rigidity, no guarding Derm/skin: not diaphoretic, no jaundice MSK: affected ear without erythema/purulence Neuro: alert, oriented, speaking in full sentences, speech intelligible LABS: Labs reviewed as indicated below: Latest Reference Range & Units 03/27/24 06:35 Sodium 135 - 146 mmol/L 140 Potassium 3.5 - 5.1 mmol/L 4.9 Chloride 98 - 107 mmol/L 102 CO2 22 - 32 mmol/L 27 BUN 6 - 20 mg/dL 18 Creatinine 0.6 - 1.2 mg/dL 1.3 (H) Estimated Glomerular Filtration Rate >=60 mL/min 55 (L) Anion Gap 7 - 15 mmol/L 11 Glucose 70 - 120 mg/dL 77 Calcium 8.4 - 10.2 mg/dL 9.3 CBC Rpt ! WBC 4.00 - 10.80 K/uL 9.47 RBC 4.50 - 5.25 M/uL 3.27 HGB 14.0 - 16.8 g/dL 9.2 (L) HCT 40.0 - 48.4 % 29.6 (L) MCV 82.0 - 99.5 fL 90.5 MCH 27.0 - 34.0 pg 28.1 MCHC 32.0 - 36.0 g/dL 31.1 RDW 11.5 - 15.5 % 17.9 PLT 140 - 400 K/uL 220 MPV 6.6 - 11.1 fL 9.3 CBC WITH WBC DIFFERENTIAL Rpt ! Absolute Neutrophils 1.80 - 7.70 K/uL 6.95 Absolute Lymphocytes 1.00 - 4.80 K/ul 0.86 (L) Absolute Monocytes 0.00 - 1.10 K/uL 0.88 Absolute Eosinophils 0.00 - 0.70 K/uL 0.67 Absolute Basophils 0.00 - 0.20 K/uL 0.07 (H): Data is abnormally high (L): Data is abnormally low !: Data is abnormal Rpt: View report in Results Review for more information MICROBIOLOGY DATA: (Reviewed; most pertinent / recent below; see EMR for further info) IMAGING: (Reviewed; most pertinent / recent below; see EMR for further info) XR CHEST 1 VIEW Narrative: PROCEDURE INFORMATION: Exam: XR Chest Exam date and time: 02/15/2024 2:28 PM Age: 78 years old Clinical indication: Other: SOB; Additional info: Course breath sounds TECHNIQUE: Imaging protocol: Radiologic exam of the chest. Views: 1 view. COMPARISON: CT PULMONARY EMBOLUS W CONTRAST 03/26/2023 6:21 PM FINDINGS: Tubes, catheters and devices: Multiple monitoring leads projecting over the field of view. PICC line tip projecting over the expected location of the subclavian vein. Lungs: There is poor ventilation of the lungs, accounting for mild diffuse increase in pulmonary parenchymal density. Nonspecific coarsening of pulmonary parenchyma present. Increased bibasilar markings Pleural spaces: Small pleural effusions. Heart/Mediastinum: The heart is enlarged. Bones/joints: Unremarkable. Impression: IMPRESSION: 1. Very low lung volumes with atelectasis 2. Pulmonary edema not excluded 3. Bibasilar consolidation, right greater than left may represent atelectasis versus pneumonia 4. Small pleural effusions. THIS DOCUMENT HAS BEEN ELECTRONICALLY SIGNED BY AFSHIN SMITH MD CT HEAD/BRAIN WO CONTRAST Narrative: PROCEDURE INFORMATION: Exam: CT Head Without Contrast Exam date and time: 02/15/2024 12:11 PM Age: 78 years old Clinical indication: Other: AMS, on warfarin TECHNIQUE: Imaging protocol: Computed tomography of the head without contrast. Radiation optimization: All CT scans at this facility use at least one of these dose optimization techniques: automated exposure control; mA and/or kV adjustment per patient size (includes targeted exams where dose is matched to clinical indication); or iterative reconstruction. COMPARISON: CT HEAD/BRAIN WO CONTRAST 03/26/2023 6:21 PM FINDINGS: Brain: There is diffuse cerebral atrophy present, consistent with this patient's age. There is mild diffuse heterogeneity of the white matter attenuation, consistent with chronic white matter ischemic changes. Cerebral ventricles: Ventricular size stable compared to previous. Paranasal sinuses: Visualized sinuses are unremarkable. No fluid levels. Mastoid air cells: Visualized mastoid air cells are well aerated. Bones: Unremarkable. No acute fracture. Soft tissues: Unremarkable. Other findings: Motion artifact does moderately limit the sensitivity of this examination. Impression: IMPRESSION: Title of the somewhat limited study. Chronic changes.No gross acute intracerebral hemorrhage, mass effect or midline shift. THIS DOCUMENT HAS BEEN ELECTRONICALLY SIGNED BY AFSHIN SMITH MD Body mass index is 36.26 kg/m. Serum creatinine: 1.3 mg/dL (H) 03/27/24 0635 Estimated creatinine clearance: 62.1 mL/min (A) IMPRESSION OM CDI PLAN Monitor closely off of ABX I advised ENT follow up All health maintenance deferred to PCP Follow up with ID as needed COMMENT(S) We discussed (in layperson's terms) the reasons to seek immediate medical attention including (but not limited to) worsening diarrhea, fever, abdominal pain, drainage/erythema at the ear site, headache, vomiting, visual abormalities. REVENUE MANAGEMENT I spent a total of 35 minutes coordinating, documenting, and providing care for this patient excluding time spent in the performance of separately billed services. Rio Chun DO Infectious Disease, [address] [phone] documented in this encounter Nursing Notes * Shelly Tellez LPN - 04/02/2024 9:42 AM EDT Chief Complaint Patient presents with Follow Up Hospital follow up documented in this encounter Plan of Treatment Upcoming Encounters Date Type Department Care Team (Late st Contact Info) Description 04/08/2024 10:40 AM EDT Office Visit [place] [address] [place] [address] Jad Boone MD [address] [place] [address] [place] [address] 05/06/2024 9:00 AM EDT Office Visit Wound Care, [address] [place] [address] Hermes Noble MD [address] [place] [address] 06/06/2024 9:30 AM EDT Office Visit Cardiology, [place] [address] [facility] [place] [address] Yas Mckinnon CRNP [address] [facility] [place] [address] 07/23/2024 9:30 AM EST Office Visit Radiation Oncology, [facility] [address] [place] [address] IovoliKo MD [address] [place] [address] Health Maintenance Due Date Last Done Comments Albumin/Creatinine Ratio 1963 Hepatitis C Screening 1963 Adult Wellness Visit 2012 Zoster Vaccines (2 of 3) 06/26/2014 05/01/2014 *SPIROMETRY ONCE FOR ASTHMA-ADULT 07/14/2022 COVID-19 Vaccine ( season) 2023 06/01/2023, 11/26/2020, 11/05/2020 Influenza Vaccine (FLU shot) (#1) 2024 05/30/2023, 05/30/2023, 05/18/2022, Additional history exists Depression Screening 09/18/2024 09/18/2023 GFR 03/27/2025 03/27/2024, 02/19, 03/13/2024, Additional history exists DTaP,Tdap,and Td Vaccines (2 [...] this encounter Medical Devices Implanted Type Area Plant Technician Device Identifier Shelf Expiration Date Model / Serial / Lot Connector Nerve 2mm 15mm - [id number] Implanted:Qty : 1 on 04/27/2023 by Dudley Hinojosa [place] [facility]: Face [employer] [id number] 12/24/2024 [id number] / / [id number] Alloderm 4x7 Thin 0.8-1.2 (28 Units) - [id number] - [id number] Implanted:Qty : 28 on 04/27/2023 by Dudley Hinojosa MD [place] [facility] [place] Left: Face ABBVIE 12/18/2024 [id number] / [id number] / [id number] Sheeting Monisha 2x3in X.020in - [id number] Implanted:Qty : 1 on 04/27/2023 by Dudley Hinojosa MD [place] [facility] [place] Left: Ear [employer] 09/25/2024 / / [id number] Sheeting Monisha 2x3 In X.005in - [id number] Implanted:Qty : 1 on 12/12/2023 by Gurvinder Garcia MD at [place] [facility] [place] Left: Ear [employer]IED [employer] 04/05/2026- / / [id number] Cath Pwr Picc Solo Inj 4f - [id number] Implanted:Qty : 1 on 01/26/2024 at [facility] CR BARD : ACCESS SYSTEMS [id number] 06/20/2025 [id number] / / [id number] documented as of this encounter Visit Diagnoses Diagnosis MRSA (methicillin resistant Staphylococcus aureus) infection- Primary Methicillin resistant Staphylococcus aureus in conditions classified elsewhere and of unspecified site documented in this encounter Additional Health Concerns Infection Onset Date Last Indicated Resolved Time C. 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 02/16/2024 signed on 12/17 [place] ORDERS FOR LIFE-SUSTAINING TREATMENT POLST 04/26/2023 [place] OR DERS FOR LIFE-SUSTAINING TREATMENT * Full Code (Latest Code Status on [...] on File Name Relationship Healthcare Agent [facility]hi p Communication [facility] Power of Er Nurse Care Teams Personal Financial Representative Relationship Specialty Start Date End Date Jad Boone MD [address] [facility] [place] [address] PCP - General Family Medicine 09/20/23 documented as of this encounter
--- OUTSIDE RECORDS SUMMARY | 2024-04-25 23:46 | External Medical Summary | Summary of Care ---
Author Name Unknown Organization [facility] Address [address] [place] [address] Phone [phone] Care Team Providers Care Company Laborer Name Role Phone Jad Boone MD Primary Care Provider Reason for Visit * Reason Onset Date Comments Advice 04/04/2024 Encounter Details Date Type Department Care Team (Late st Contact Info) Description 04/04/[address] [place] [phone] Jad Boone MD [facility] [address] [place] [address] Advice Allergies Active Allergy Reactions Criticality Noted Date Comments Bee Venom Hives High 03/14/2017 documented as of this encounter (statuses as of 04/04/2024) Medications Medication Sig Dispensed Refills Start Date [...] g 02/21/2024 Active Vitamin D3 1.25 MG (07167 UT) Oral Capsule Take 1 Capsule by mouth once a week. Every Monday 12 Capsule 02/21/2024 Active oxyCODONE HCl 5 MG Oral Capsule (Oxy IR) Take 1 Capsule by mouth every 6 hours as needed for Pain, Moderate or Pain, Severe. 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 0 05/01/2014 Overview: ICD-10 update of inactive term Heart failure, systolic, due to CAD 08/28/2012 Overview: ECHO 2011 - Segmental wall abnormality, severe hypokinesis of anterior septum, anterior wall, apex, distal inferior septum, distal inferior wall, and distal posterior wall EF 33% Mass of left parotid gland documented as of this encounter (statuses as of 04/04/2024) Resolved Problems Problem Noted Date Diagnosed Date [...] (dyspnea on exertion) 03/29/2022 Adrenal hemorrhage 09/11/2020 Supratherapeutic INR 09/11/2020 022 Migraine without status [...] as of this encounter (statuses as of 04/04/2024) Immunizations Name Administration Dates Next Due COVID-19 [...] Please send probiotic order to [facility] thank you * Telephone Encounter - Cynthia Roberts LPN - 04/04/2024 2:30 PM EDT T/C to [facility] at this time. LVM to Sarah at this time to review below information, no answer LVM to call clinic back at [phone] * Telephone Encounter - Jad Boone MD - 04/04/2024 2:11 PM EDT C diff ordered. Taking a probiotic three times a day with meals for two weeks, may also help. Jad Boone MD 04/04/2024 * Telephone Encounter - Jes Mahmood LPN - 04/04/2024 8:23 AM EDT Sarah from [place] [facility] is calling. Reports that the pt returned to the [facility] yesterday and had Cdiff while on the Rehab side and finished his vancomycin there. Since returning to the [facility], around 6 PM pt noted diarrhea started [...] Team (Late st Contact Info) Description 04/04/2024 5:20 PM EDT Anticoagulation [facility], [place] [address] [place] [address] [facility], [address] [place] [address] PAF (paroxysmal atrial fibrillation) (HCC)* 04/08/2024 10:40 AM EDT Office Visit [place] [address] [address] [place] [address] Jad Boone MD [facility] [address] [place] [address] 05/06/2024 9:00 AM EDT Office Visit Wound Care, [facility] [address] [place] [address] Hermes Noble MD [address] [place] [address] 06/06/2024 9:30 AM EDT Office Visit Cardiology, [place] [address] [place] [address] Yas Mckinnon CRNP [address] [place], [place] [phone] 07/23/2024 9:30 AM EST Office Visit Radiation Oncology, [facility] [address] [place] [address] IovolKo aleman MD [address] [place] [phone] Scheduled Orders Name Type Priority Associated Diagnoses [...] this encounter Medical Devices Implanted Type Area Director Camp Device Identifier Shelf Expiration Date Model / Serial / Lot Connector Nerve 2mm 15mm - [id number] Implanted:Qty : 1 on 04/27/2023 by Dudley Hinojosa [place] [facility] [place]: Face [employer] [id number] 12/24/2024 [id number] / / [id number] Alloderm 4x7 Thin 0.8-1.2 (28 Units) - [id number] - [id number] Implanted:Qty : 28 on 04/27/2023 by Dudley Hinojosa MD [place] [facility] [place] Left: Face ABBVIE 12/18/2024 [id number] / [id number] / [id number] Sheeting Monisha 2x3in X.020in - [id number] Implanted:Qty : 1 on 04/27/2023 by Dudley Hinojosa MD [place] [facility] [place] Left: Ear [employer] 09/25/2024 23-700-20 / / [id number] Sheeting Monisha 2x3 In X.005in - [id number] Implanted:Qty : 1 on 12/12/2023 by Gurvinder Garcia MD [place] [facility] [place]: Ear [employer]IED [employer] 04/05/2026 23-700-05 / / [id number] Cath Pwr Picc Solo Inj 4f - [id number] Implanted:Qty : 1 on 01/26/2024 at [facility] CR BARD : ACCESS SYSTEMS [id number] 06/20/2025 [id number] / / [id number] documented as of this encounter Visit Diagnoses Diagnosis Watery diarrhea- Primary PAF (paroxysmal atrial fibrillation) (HCC)- Primary Atrial fibrillation documented in this encounter Additional Health Concerns Infection Onset Date Last Indicated Resolved Time C. 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
--- OUTSIDE RECORDS SUMMARY | 2024-04-25 23:46 | External Medical Summary | Summary of Care ---
Author Name Unknown Organization [facility] Address [address] [place] [address] Phone [phone] Care Team Providers Care Laminating Machine Feeder Name Role Phone Jad Boone MD Primary Care Provider Reason for Visit * Reason Onset Date Comments Advice 01/03/2024 Encounter Details Date Type Department Care Team (Late st Contact Info) Description 01/03/[address] [place] [address] [phone] Jad Boone MD [facility] [address] [place] [phone] Advice Allergies Active Allergy Reactions Criticality Noted Date Comments Bee Venom Hives High 03/14/2017 documented as of this encounter (statuses as of 04/03/2024) Medications Medication Sig Dispensed Refills Start Date [...] the morning. 90 Tablet 3 08/15/2023 Active Diphenhyd-Calami ne-Benzyl Alc 2-14-10.5 % External [...] as needed for Shortness of Breath. Active Vitamin D3 1.25 MG (36169 UT) Oral Capsule Take 1 Capsule by mouth once a week. 12 Capsule 3 01/30/2023 4 Discontinued Atorvastatin Calcium 20 MG Oral Tablet (Lipitor)Indicat ions:Coronary artery disease involving lime coronary artery of lime heart without angina pectoris TAKE 1 TABLET, BY MOUTH, IN THE MORNING. 90 Tablet 1 03/04/2023 4 Discontinued Acetaminophen 325 MG Oral Tablet (Tylenol) Take 2 Tablets by mouth every 6 hours as needed for Pain, Mild. 30 Tablet 04/03/2023 4 Discontinued Furosemide 20 MG Oral Tablet (Lasix)Indicatio ns:Chronic diastolic CHF (congestive heart failure) (HCC) Take 2 Tablets by mouth in the morning. 180 Tablet 1 08/15/2023 4 Discontinued Lisinopril 10 MG Oral Tablet (Prinivil)Indica tions:Chronic heart failure with preserved ejection fraction (HFpEF) (HCC) Take 1 Tablet by mouth in the morning. 90 Tablet 3 11/10/2023 4 Discontinued Bacitracin Zinc 500 UNIT/GM External Ointment Apply topically to affected area 2 times a day. Apply to left ear/neck suture/staple lines and bolsters twice per day. Please keep the bolsters moist. 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 103.317 mL 12/22/2023 4 Discontinued oxyCODONE HCl 5 MG Oral Capsule (Oxy IR) Take 1 Capsule by mouth every 6 hours as needed. 4 Discontinued Warfarin Sodium 5 MG Oral Tablet (Coumadin)Indica tions:PAF (paroxysmal atrial fibrillation) (HCC) Take 1 Tablet by mouth every evening. 09/28: 10 mg; Otherwise 5 mg every e, Wed, Mon; 7.5 mg all other days and as directed by [facility] 135 Tablet 1 01/02/2024 4 Discontinued Cephalexin 500 MG Oral Capsule Take 1 Capsule by mouth in the morning and 1 Capsule before bedtime. 14 Capsule 01/02/2024 4 Discontinued amLODIPine Besylate 2.5 MG Oral Tablet (Norvasc) Take 1 Tablet by mouth in the morning. 30 Tablet 01/03/2024 4 Discontinued documented as of this encounter (statuses as of 04/03/2024) Active Problems Problem Noted Date Diagnosed Date [...] fibrillation) 10/18/2018 Coronary artery disease invo lving lime coronary artery without angina pectoris 01/07/2015 dedicated [...] as of this encounter (statuses as of 04/03/2024) Resolved Problems Problem Noted Date Diagnosed Date [...] as of this encounter (statuses as of 04/03/2024) Immunizations Name Administration Dates Next Due COVID-19 [...] 10/10/2023 Does the household have a unm children's hospitallar source of income? (Household - for [...] deaf or do you have serious difficulty h earing? No 04/26/2023 Are you blind or do you have serious difficulty seeing, even when wearing glasses? No 04/26/2023 Do you have serious difficul ty walking or climbing stairs? (5 years old or older) Yes 05/01/2023 Do you have difficulty dress ing or bathing? (5 years old or older) No 04/26/2023 Because of a physical, menta l, or emotional condition, do you have difficulty doing errands alone such as visiting a doctor s office or shopping? (15 years old or older) No 04/26/20 23 Cognitive Status Response Date of Assessm ent Because of a physical, menta l, or emotional condition, do you have serious difficulty concentrating, remembering, or making decisions? (5 years old or older) No 04/26/2023 documented as of this encounter Miscellaneous Notes * Telephone Encounter - Jad Boone MD - 01/03/2024 4:45 PM EDT Will add temporary dosing of amlodipine while in recovery phase from surgery. 2.5 milligram tablet of amlodipine daily. Sent to local pharmacy. Jad Boone MD 01/03/2024 * Telephone Encounter - Jes Mahmood LPN - 01/03/2024 11:44 AM EDT KAI Yu from [facility] is calling. Reports that the pt's systolic BP is running in the 180's and has been for about 6 days. Will fax BP reading from the last month to [phone]. Denies the pt having any sx and states that all of the other vital signs are good. Pt is taking Furosemide, Lisinopril and Metoprolol as ordered. Please advise. documented in this encounter Plan of Treatment Upcoming Encounters Date Type Department Care Team (Late st Contact Info) Description 04/08/2024 10:40 AM EDT Office Visit [place] [address] [place] [address] Jad Boone MD [address] [place] [address] 05/06/2024 9:00 AM EDT Office Visit Wound Care, [facility] [address] [place] [address] Hermes Noble MD [address] [place] [address] 06/06/2024 9:30 AM EDT Office Visit Cardiology, [place] [address] [place] [address] Yas Mckinnon CRNP [address] [place] [address] 07/23/2024 9:30 AM EST Office Visit Radiation Oncology, [facility] [address] [place] [address] IovoliKo MD [address] [place] [address] Health Maintenance Due Date Last [...] this encounter Medical Devices Implanted Type Area Neckties Painter Device Identifier Shelf Expiration Date Model / Serial / Lot Connector Nerve 2mm 15mm - [id number] Implanted:Qty : 1 on 04/27/2023 by Dudley Hinojosa MD [place] [facility] [place]: Face [employer] [id number] 12/24/2024 [id number] / / [id number] Alloderm 4x7 Thin 0.8-1.2 (28 Units) - [id number] - [id number] Implanted:Qty : 28 on 04/27/2023 by Dudley Hinojosa MD [place] [facility] [place]: Face ABBVIE 12/18/2024 [id number] / [id number] / [id number] Sheeting Monisha 2x3in X.020in - [id number] Implanted:Qty : 1 on 04/27/2023 by Dudley Hinojosa MD [place] [facility] [place]: Ear ALLIED [employer] 09/25/2024- / / [id number] Sheeting Monisha 2x3 In X.005in - [id number] Implanted:Qty : 1 on 12/12/2023 by Gurvinder Garcia MD [place] [facility] [place]: Ear ALLIED BIOM[employer] 04/05/2026700-05 / / [id number] Cath Pwr Picc Solo Inj 4f - [id number] Implanted:Qty : 1 on 01/26/2024 at [facility] CR BARD : ACCESS SYSTEM[employer] [id number] 06/20/2025 [id number] / / [id number] documented as of this encounter Additional Health Concerns Infection Onset Date Last Indicated Resolved Time MRSA Comment:Per [place], infection is able to be resolved after 42 days from date of onset - [facility] approved 03/07/24 01/24/2024 01/24/2024 03/22/2024 1:31 PM E DT C. difficile 03/18/2024 03/18/2024 C. difficile Rule-Out 03/19/2024 03/18/20242023 9:05 AM EDT documented as of this encounter Advance Directives Documents on File Type Date Recorded Patient Tie Worker Expl anation POLST 02/16/2024 signed on 12/17 [place] ORDERS FOR LIFE-SUSTAINING TREATMENT POLST 04/26/2023 [place] [...] Communication Brody Avery Adult Child Power of Warehouse Traffic Supervisor Care Teams Laminating Machine Feeder Relationship Specialty Start Date End Date Jad Boone MD [address] [facility] [address] [place] [address] PCP - General Family Medicine 09/20/23 documented as of this encounter
--- OUTSIDE RECORDS SUMMARY | 2024-04-25 23:46 | External Medical Summary ---
Author Name Unknown Address Unknown Organization K1F:LABORATORY [facility] - [address] [facility]. [place] [address] Laboratory Report Ordering Provider Test Date Status SENG GARCIA 04/03/2024 06:34:00 Final Observation Date Value Abnormality Reference (Units ) Status SYNC LEUKOCYTES IN BLOOD BY AUTOMATED COUNT 04/03/2024 06:34:00 9.27 4.00-10.80 (K/uL) Final Segs 04/03/2024 06:34:00 72.2 40.0-75.0 (%) Final Lymphs % 04/03/2024 06:34:00 9.9 Below low normal 18.0-42.0 (%) Final Monos 04/03/2024 06:34:00 8.1 1.0-11.0 (%) Final Eosinophils 04/03/2024 06:34:00 8.7 Above high normal 0.0-6.0 (%) Final Basos 04/03/2024 06:34:00 0.9 0.0-2.0 (%) Final Immature Granulocyte, Percent 04/03/2024 06:34:00 0.2 0.0-2.0 (%) Final Absolute Segs 04/03/2024 06:34:00 6.69 1.80-7.70 (K/uL) Final Lymphs, absolute 04/03/2024 06:34:00 0.92 Below low normal 1.00-4.80 (K/ul) Final Monos, Abs 04/03/2024 06:34:00 0.75 0.00-1.10 (K/uL) Final Eos, Abs 04/03/2024 06:34:00 0.81 Above high normal 0.00-0.70 (K/uL) Final Basos, Abs 04/03/2024 06:34:00 0.08 0.00-0.20 (K/uL) Final Immature Granulocytes, Number 04/03/2024 06:34:00 0.02 0.00-0.20 (K/uL) Final Performing Location LAB[facility]ORY [facility] - [facility] [address] [place] [address]
--- OUTSIDE RECORDS SUMMARY | 2024-04-25 23:46 | External Medical Summary | Summary of Care ---
Author Name Unknown Organization [facility] Address [address] [place] [facility] [place] [facility] [place] [address] Phone [phone] Care Team Providers Care Director Of Strategic Alliances Name Role Phone Jad Boone MD Primary Care Provider Reason for Visit * Reason Comments Follow Up Follow UpL/earPatien t is accompanied by Bibiana from [facility] Encounter Details Date Type Department Care Team (Late st Contact Info) Description 03/26/2024 9:00 AM EDT Office Visit Wound Care, [facility] [address] [facility] [place] [phone] Hermes Noble MD [address] [place] [address] Open wound of auricle of left ear with complication, initial encounter* Allergies Active Allergy Reactions Criticality Noted Date Comments Bee Venom Hives High 03/14/2017 documented as of this encounter (statuses as of 03/26/2024) Medications Medication Sig Dispensed Refills Start Date [...] g 02/21/2024 Active Vitamin D3 1.25 MG (90132 UT) Oral Capsule Take 1 Capsule by mouth once a week. Every Monday 12 Capsule 02/21/2024 4 Active oxyCODONE HCl 5 MG Oral Capsule (Oxy IR) Take 1 Capsule by mouth every 6 hours as needed for Pain, Moderate or Pain, Severe. 10 Tablet 02/21/2024 Active documented as of this encounter (statuses as of 03/26/2024) Active Problems Problem Noted Date Diagnosed Date [...] fibrillation) 10/18/2018 Coronary artery disease invo lving [place] coronary artery without angina pectoris 01/07/2015 [facility] [...] as of this encounter (statuses as of 03/26/2024) Resolved Problems Problem Noted Date Diagnosed Date Resolved Date Encephalopathy acute 02/15/2024 07/ 024 Malignant neoplasm of head, face and [...] as of this encounter (statuses as of 03/26/2024) Immunizations Name Administration Dates Next Due COVID-19 mRNA, LNP-s, No Pre serve, 2-Dose Series (Simply [address]) 11/26/2020,11/05/2020 Pneumococcal Conjugate Vacc, 13 Valent (Prevnar) [...] as of this encounter Progress Notes * Hermes Noble MD - 03/26/2024 9:41 AM EDT Images from the original note were not included. WOUND OUTPATIENT FOLLOW-UP NOTE DOS: 03/26/2024 CC: Follow-up HPI: Stephen Varela returns for follow-up of left ear wound. Current dressing: See Wound Assessment Dressing change frequency: two times a day Subjective ROS: Pain: no Drainage: minimal Swelling: no Erythema: no Fever/Chills: no Malaise: no ROS was negative other than stated above. Tobacco History: Social History Tobacco Use Smoking Status Former Current packs/day: 0.00 Types: Cigarettes Quit date: 2003 Years since quittin.6 Passive exposure: Past Smokeless Tobacco Never Tobacco Comments smoked, and quit in 2003 Objective There were no vitals filed for this visit. WOUND ASSESSMENT: Alteration in Skin Integrity Incision Left Ear (Active) Clinical Image 03/26/24 0934 Wound Length (cm) 4.2 cm 03/26/24 0934 Wound Width (cm) 2.1 cm 03/26/24 0934 Wound Depth (cm) 0.1 cm 03/26/24 0934 Deep Supporting Structure Exposed Other - comment 03/26/24 0934 Drainage serous, moderate 03/26/24 0934 Odor (after cleansing wound) No 03/26/24 0934 Wound Surface Area (cm^2) 8.82 cm^2 03/26/24 0934 Wound Volume (cm^3) 0.882 cm^3 03/26/24 0934 Alteration in Skin Integrity Lateral;Left Forehead (Active) Clinical Image 03/26/24 0934 The wound dimensions continue to decrease. Assessment & Plan ASSESSMENT: ICD-10-CM 1. Open wound of auricle of left ear with complication, initial encounter S01.302A The wound is much smaller. PLAN: I think at this point we can have the patient perform his own dressings, consisting of vaseline, carolee changed at least twice daily and more often as needed to prevent dryness. We discussed him beingon the lookout for erythema or increased drainage, as these may be signs of infection of the wound or exposed bone. It is my opinion that he is able to do these dressings himself and thereby leave the rehab unit at [facility] to [facility], which is his wish. I recommended that he have compression on his bilateral lower legs. He states he will see Dr. Boone for this. He has no open wounds of the lower legs. Follow Up: Return in about 6 weeks (around 05/07/2024). I spent a total of 30-39 minutes (exact time 30 mins) on the date of service in preparation, delivery, and documentation of the care provided to Stephen Varela excluding any time spent in the performance of separately billed services or time spent by another provider/QHP. Audra Noble MD documented in this encounter Nursing Notes * Sharlene Corbin CMA - 03/26/2024 9:26 AM EDT Images from the original note were not included. Chief Complaint Patient presents with Follow Up Follow Up L/ear Patient is accompanied by Bibiana from [place] Patient was instructed to not get up on the exam table/exam chair until directed and assisted by their provider; patient is to remain seated in the chair/ wheelchair/ exam table/ exam chair for fall prevention and safety reasons. Patient is aware to have assistance to step down off exam table/exam chair with personnel. Patient voiced full comprehension of instructions. Wound, then ear and side of head washed with soap and water and towel dried. Patient tolerate well documented in this encounter Plan of Treatment Upcoming Encounters Date Type Department Care Team (Late st Contact Info) Description 04/02/2024 9:40 AM EDT Office Visit Infectious Disease, [address] [address] Rio Chun DO [address] [place] [address] 04/03/2024 1:30 PM EDT Office Visit Otolaryngology/Head & Neck/Facial Plastic Surgery [address] [place] [address] Gurvinder Garcia MD [address] [place] [address] 05/06/2024 9:00 AM EDT Office Visit Wound Care, [facility] [address] [place] [address] Hermes Noble MD [address] [place], [place] [phone] 06/06/2024 9:30 AM EDT Office Visit Cardiology, [place] [address] [place], [place] [phone] Yas Mckinnon CRNP [address] [place], [place] [phone] 07/23/2024 9:30 AM EST Office Visit Radiation Oncology, [facility] [address] [place], [place] [phone] IovoliKo MD [address] [place] [address] Health Maintenance Due Date Last Done Comments Albumin/Creatinine Ratio 1963 Hepatitis C Screening 1963 Adult Wellness Visit 2012 Zoster Vaccines (2 of 3) 06/26/2014 05/01/2014 *SPIROMETRY ONCE FOR ASTHMA-ADULT 07/14/2022 COVID-19 Vaccine (2022- season) 2023 06/01/2023, 11/26/2020, 11/05/2020 Influenza Vaccine (FLU shot) (#1) 2024 05/30/2023, 05/30/2023, 05/18/2022, Additional history exists Depression Screening 09/18/2024 09/18/2023 GFR 03/18/2025 03/18/2024, 02/19, 03/06/2024, Additional history exists DTaP,Tdap,and Td Vaccines (2 [...] this encounter Medical Devices Implanted Type Area Certified Medical Assistant Device Identifier Shelf Expiration Date Model / Serial / Lot Connector Nerve 2mm 15mm - [id number] Implanted:Qty : 1 on 04/27/2023 by Dudley Hinojosa MD at [place] [facility] [place] Left: Face [employer] [id number] 12/24/2024 [id number] / / [id number] Alloderm 4x7 Thin 0.8-1.2 (28 Units) - [id number] - [id number] Implanted:Qty : 28 on 04/27/2023 by Dudley Hinojosa MD at OR [facility] [place] Left: Face ABBVIE 12/18/2024 [id number] / [id number] / [id number] Sheeting Monisha 2x3in X.020in - [id number] Implanted:Qty : 1 on 04/27/2023 by Dudley Hinojosa MD at OR [facility] [place] Left: Ear ALLIED BIOM[employer] 09/25/2024700-20 / / [id number] Sheeting Monisha 2x3 In X.005in - [id number] Implanted:Qty : 1 on 12/12/2023 by Gurvinder Garcia MD at OR [facility] [place] Left: Ear ALLIED BIOM[employer] 04/05/2026-05 / / [id number] Cath Pwr Picc Solo Inj 4f - Implanted:Qty : 1 on 01/26/2024 at [facility] CR BARD : ACCESS SYSTEMS [id number] 06/20/2025 [id number] / / [id number] documented as of this encounter Visit Diagnoses Diagnosis Open wound of auricle of left ear with complication, initial encounter- Primary documented in this encounter Additional Health Concerns Infection Onset Date Last Indicated Resolved Time C. difficile 03/18/2024 03/18/2024 documented as of this encounter Advance Directives Documents on File Type Date Recorded Patient Radiology Services Manager Expl anation POLST 02/16/2024 signed on 12/17 [place] ORDERS FOR LIFE-SUSTAINING TREATMENT POLST 04/26/2023 [place] [...] Communication Brody Avery Adult Child Power of Manufacturing Quality Technician Care Teams Director Of Strategic Alliances Relationship Specialty Start Date End Date Jad Boone MD [address] [facility] [address] [place] [address] PCP - General Family Medicine 09/20/23 documented as of this encounter
--- OUTSIDE RECORDS SUMMARY | 2024-04-25 23:46 | External Medical Summary | Summary of Care ---
Author Name Unknown Organization [facility] Address [address] [place] [address] Phone [phone] Care Team Providers Care Can Capper Name Role Phone Emma Alonzo MD Primary Care Provider Reason for Visit * Reason Onset Date Comments Advice 04/04/2024 Encounter Details Date Type Department Care Team (Late st Contact Info) Description 04/04/[address] [place] [phone] Emma Alonzo MD [facility] [address] [place] [address] Advice Allergies Active Allergy Reactions Criticality [...] g 02/21/2024 Active Vitamin D3 1.25 MG (94514 UT) Oral Capsule Take 1 Capsule by [...] fibrillation) 10/18/2018 Coronary artery disease invo lving [place] coronary artery without angina pectoris 01/07/2015 solution maker current use of anticoagulant therapy 0 05/01/2014 [...] PM EDT Please send probiotic order to [facility] thank you * Telephone Encounter - Cynthia Roberts LPN - 04/04/2024 2:30 PM EDT T/C to [place] at this time. LVM to Sarah at this time to review below information, no answer LVM to call clinic back at [phone] * Telephone Encounter - Emma Alonzo MD - 04/04/2024 2:11 PM EDT C diff ordered. Taking a probiotic three times a day with meals for two weeks, may also help. Emma Alonzo MD 04/04/2024 * Telephone Encounter - Jes Mahmood LPN - 04/04/2024 8:23 AM EDT Sarah from [facility] is calling. Reports that the pt returned to the [facility] yesterday and had Cdiff while on the Rehab side and finished his vancomycin there. Since returning to the [facility], around 6 PM pt noted diarrhea [...] Description 04/08/2024 10:40 AM EDT Office Visit [place] [address] [place] [address] Emma Alonzo MD [address] [place] [address] [place] [address] 04/11/2024 6:15 PM EDT Anticoagulation [facility] Clinical Pharmacy Services, [address] [place] [address] [place] [address] 05/06/2024 9:00 AM EDT Office Visit Wound Care, [facility] [address] [place] [address] Hermes Noble MD [address] [place] [address] 06/06/2024 9:30 AM EDT Office Visit Cardiology, [place] [address] [place] [address] Yas Mckinnon CRNP [address] [place] [address] 07/23/2024 9:30 AM EST Office Visit Radiation Oncology, [facility] [address] [place] [address] Ko Grace MD [address] [place] [address] Scheduled Orders Name Type Priority [...] this encounter Medical Devices Implanted Type Area Commercial Litigation Paralegal Device Identifier Shelf Expiration Date Model / Serial / Lot Connector Nerve 2mm 15mm - [id number] Implanted:Qty : 1 on 04/27/2023 [place] [facility] [place] [employer] [id number] 12/24/2024 [id number] / / [id number] Alloderm 4x7 Thin 0.8-1.2 (28 Units) - [id number] - [id number] Implanted:Qty : 28 on 04/27/2023 by Dudley Hinojosa [place] [facility] Face ABBVIE 12/18/2024 [id number] / [id number] / [id number] Sheeting Monisha 2x3in X.020in - [id number] Implanted:Qty : 1 on 04/27/2023 by Dudley Hinojosa [place] [facility] [place] Ear [employer]IED [employer] 09/25/2024- / / [id number] Sheeting Monisha 2x3 In X.005in - [id number] Implanted:Qty : 1 on 12/12/2023 by Gurvinder Garcia MD [place] [facility] [place] Ear ALLIED BIOM[employer] 04/05/2026 / / [id number] Cath Pwr Picc Solo Inj 4f - [id number] Implanted:Qty : 1 on 01/26/2024 at [facility] CR BARD : ACCESS SYSTEMS [id number] 06/20/2025 [id number] / / [id number] documented as of this encounter Visit Diagnoses Diagnosis Watery diarrhea- Primary documented in this encounter Additional Health Concerns Infection Onset Date Last Indicated Resolved Time C. difficile 03/18/2024 04/04/2024 C. difficile Rule-Out 04/04/2024 04/04/20242023 8:13 AM EDT documented as of this encounter Advance Directives Documents on File Type Date Recorded Patient Dental Resident Expl anation POLST 02/16/2024 signed on 12/17 [place] ORDERS FOR LIFE-SUSTAINING TREATMENT POLST 04/26/2023 [...] Agents on File Name Relationship Healthcare Agent [facility] Communication Brody Varela Adult Child Power of Skein Washer Care Teams Can Capper Relationship Specialty Start Date End Date Emma Alonzo MD [address] [facility] [place] [address] PCP - General Family Medicine 09/20/23 documented as of this encounter
--- OUTSIDE RECORDS SUMMARY | 2024-04-25 23:46 | External Medical Summary ---
Author Name Unknown Address Unknown Organization K1F:LABORATORY [facility] - [address] [place] [address] Laboratory Report Ordering Provider Test Date Status SENG GARCIA 03/27/2024 06:35:00 Final Observation Date Value Abnormality Reference (Units ) Status WBC, Total 03/27/2024 06:35:00 9.47 4.00-10.80 (K/uL) Final RBC 03/27/2024 06:35:00 3.27 4.50-5.25 (M/uL) Final Hemoglobin 03/27/2024 06:35:00 9.2 Below low normal 14.0-16.8 (g/dL) Final HCT 03/27/2024 06:35:00 29.6 Below low normal 40.0-48.4 (%) Final MCV 03/27/2024 06:35:00 90.5 82.0-99.5 (fL) Final MCH 03/27/2024 06:35:00 28.1 27.0-34.0 (pg) Final MCHC 03/27/2024 06:35:00 31.1 32.0-36.0 (g/dL) Final RDW 03/27/2024 06:35:00 17.9 11.5-15.5 (%) Final Platelets 03/27/2024 06:35:00 220 140-400 (K/uL) Final MPV 03/27/2024 06:35:00 9.3 6.6-11.1 (fL) Final Nucleated erythrocytes/100 leukocytes [Ratio] in Blood by Automated count 03/27/2024 06:35:00 0 <=0 (/100 WBCs) Final Performing Location LABORATORY [facility] - [address] [place] [address]
--- OUTSIDE RECORDS SUMMARY | 2024-04-25 23:46 | External Medical Summary ---
Author Name Unknown Address Unknown Organization K1F:[facility] - [address] [address] Laboratory Report Ordering Provider Test Date Status SENG GARCIA 03/27/2024 06:35:00 Final Observation Date Value Abnormality Reference (Units ) Status BUN 03/27/2024 06:35:00 18 6-20 (mg/dL) Final Creatinine 03/27/2024 06:35:00 1.3 Above high normal 0.6-1.2 (mg/dL) Final Glomerular filtration rate/1.73 sq M.predicted [Volume Rate/Area] in Serum, Plasma or Blood by Creatinine-based formula (CKD-EPI) 03/27/2024 06:35:00 55 Below low normal >=60 (mL/min) Final eGFR is calculated based on the CKD-EPI 2020 equation. Sodium 03/27/2024 06:35:00 140 135-146 (m mol/L) Final Potassium 03/27/2024 06:35:00 4.9 3.5-5.1 (m mol/L) Final Cl 03/27/2024 06:35:00 102 98-107 (mm ol/L) Final CO2 03/27/2024 06:35:00 27 22-32 (mmo l/L) Final Anion gap 03/27/2024 06:35:00 11 7-15 (mmol /L) Final Glucose 03/27/2024 06:35:00 77 70-120 (mg /dL) Final Calcium 03/27/2024 06:35:00 9.3 8.4-10.2 ( mg/dL) Final Performing Location [facility] [address] [facility] [place] [address]
--- OUTSIDE RECORDS SUMMARY | 2024-04-25 23:46 | External Medical Summary ---
Author Name Unknown Address Unknown Organization K1F:[facility] - [address] [place] [address] Laboratory Report Ordering Provider Test Date Status BHAVANA CARTERFUS 04/04/2024 23:27:00 Final Observation Date Value Abnormality Reference (Units) Status Source 04/04/2024 23:27:00 Semi-liquid Final Clostridioides difficile toxin and BI-NAP1-027 strain DNA panel - Stool by TORREY with probe detection 04/04/2024 23:27:00 Positive for C. difficile toxin B gene DNA by PCR (Amplified Probe). Presumptive negative for C. difficile 027-NAP1-B1 strain by PCR (Amplified Probe). Abnormal Negative Final Performing Location [facility]ATORY [facility] - [address] [place] [address]
--- OUTSIDE RECORDS SUMMARY | 2024-04-25 23:46 | External Medical Summary | Summary of Care ---
Author Name Unknown Organization [facility] Address [address] [place] [address] Phone [phone] Care Team Providers Care Delivery Table Feeder Name Role Phone Jad Boone MD Primary Care Provider Reason for Visit * Reason Onset Date Comments Appointment 03/28/2024 Encounter Details Date Type Department Care Team (Late st Contact Info) Description 03/28/2024 Telephone Otolaryngology/Head & Neck/Facial Plastic Surgery [address] [place], [place] [phone] Gurvinder Garcia MD [address] [place] [address] Appointment Allergies Active Allergy Reactions Criticality Noted Date Comments Bee Venom Hives High 03/14/2017 documented as of this encounter (statuses as of 03/28/2024) Medications Medication Sig Dispensed Refills Start Date [...] g 02/21/2024 Active Vitamin D3 1.25 MG (06709 UT) Oral Capsule Take 1 Capsule by mouth once a week. Every Monday 12 Capsule 02/21/2024 Active oxyCODONE HCl 5 MG Oral Capsule (Oxy IR) Take 1 Capsule by mouth every 6 hours as needed for Pain, Moderate or Pain, Severe. 10 Tablet 02/21/2024 Active documented as of this encounter (statuses as of 03/28/2024) Active Problems Problem Noted Date Diagnosed Date [...] fibrillation) 10/18/2018 Coronary artery disease invo lving [place] coronary artery without angina pectoris 01/07/2015 senior living current use of anticoagulant therapy 0 05/01/2014 Overview: ICD-10 update of inactive term Heart failure, systolic, due to CAD 08/28/2012 Overview: ECHO 2011 - Segmental wall abnormality, severe hypokinesis of anterior septum, anterior wall, apex, distal inferior septum, distal inferior wall, and distal posterior wall EF 33% Mass of left parotid gland documented as of this encounter (statuses as of 03/28/2024) Resolved Problems Problem Noted Date Diagnosed Date [...] as of this encounter (statuses as of 03/28/2024) Immunizations Name Administration Dates Next Due COVID-19 [...] encounter Miscellaneous Notes * Telephone Encounter - Ashlee Leslie, MARICRUZ - 03/28/2024 9:22 AM EDT Received call from patient- patient stated that he is canceling his appointments coming up due to transportation and his thinks he is doing great and does not need to come to [place]. Made providersaware of updated pictures from Dr. Becerra appointment. documented in this encounter Plan of Treatment Upcoming Encounters Date Type Department Care Team (Late st Contact Info) Description 04/02/2024 9:40 AM EDT Office Visit Infectious Disease, [address] [phone] Rio Chun, DO [address] [place] [address] 05/06/2024 9:00 AM EDT Office Visit Wound Care, [address] [address] Hermes Noble MD [address] [place], [place] [phone] 06/06/2024 9:30 AM EDT Office Visit Cardiology, [address] [address] Yas Mckinnon CRNP [address] [place] [phone] 07/23/2024 9:30 AM EST Office Visit Radiation Oncology, [facility] [address] [place], [place] [phone] Ko Grace MD [address] [place] [address] Health Maintenance Due Date Last [...] this encounter Medical Devices Implanted Type Area Bench Precision Assembler Device Identifier Shelf Expiration Date Model / Serial / Lot Connector Nerve 2mm 15mm - [id number] Implanted:Qty : 1 on 04/27/2023 by Dud[place] H[place] [facility] [place] Face [employer] [id number] 12/24/2024 [id number] / / [id number] Alloderm 4x7 Thin 0.8-1.2 (28 Units) - [id number] - [id number] Implanted:Qty : 28 on 04/27/2023 by Dudley Hinoojsa MD [place] [facility] [place]: Face ABBVIE 12/18/2024 [id number] / [id number] / [id number] Sheeting Monisha 2x3in X.020in - [id number] Implanted:Qty : 1 on 04/27/2023 by Dudley Hinojosa MD [place] [facility] [place]: Ear [employer] 09/25/2024 23-700-20 / / [id number] Sheeting Monisha 2x3 In X.005in - [id number] Implanted:Qty : 1 on 12/12/2023 by Gurvinder Garcia MD at [facility] Left: Ear [employer]IED [employer] 04/05/2026-700-05 / / [id number] Cath Pwr Picc Solo Inj 4f - [id number] Implanted:Qty : 1 on 01/26/2024 at [facility] CR BARD : ACCESS SYSTEMS [id number] 06/20/2025 [id number] / / [id number] documented as of this encounter Additional Health Concerns Infection Onset Date Last Indicated Resolved Time C. difficile 03/18/2024 03/18/2024 documented as of this encounter Advance Directives Documents on File Type Date Recorded Patient Telecommunications Cable Jointer Expl anation POLST 02/16/2024 signed on 12/17 [place] ORDERS FOR LIFE-SUSTAINING TREATMENT POLST 04/26/2023 [place] OR DERS FOR LIFE-SUSTAINING TREATMENT * Full [...] Agents on File Name Relationship [facility] Brody Varela Adult Child Power of Transit Proof Machine Operator Care Teams Delivery Table Feeder Relationship Specialty Start Date End Date Jad Boone MD [address] [facility] [address] [facility] [place] [address] PCP - General Family Medicine 09/20/23 documented as of this encounter
--- OUTSIDE RECORDS SUMMARY | 2024-04-25 23:46 | External Medical Summary | Summary of Care ---
Author Name Unknown Organization [facility] Address [address] [place] [facility] [place] [address] Phone [phone] Care Team Providers Care Working Supervisor Name Role Phone Jad Boone MD Primary Care Provider Reason for Visit * Reason Comments Follow Up Follow UpL/earPatien t is accompanied by Bibiana from [place] Encounter Details Date Type Department Care Team (Late st Contact Info) Description 03/26/2024 9:00 AM EDT Office Visit Wound Care, [facility] [address] [facility] [address] [place] [phone] Hermes Noble MD [address] [place] [address] Open wound of auricle of left [...] g 02/21/2024 Active Vitamin D3 1.25 MG (28648 UT) Oral Capsule Take 1 Capsule by [...] fibrillation) 10/18/2018 Coronary artery disease invo lving [place] coronary artery without angina pectoris 01/07/2015 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 0 [...] mRNA, LNP-s, No Pre serve, 2-Dose Series ([employer]) 11/26/2020,11/05/2020 Pneumococcal Conjugate Vacc, 13 Valent (Prevnar) [...] and thereby leave the rehab unit at [place] to return to the [facility], which is his wish. I recommended that [...] documented in this encounter Nursing Notes * Eula Fortune LPN - 03/26/2024 12:08 PM EDT Post exam provided treatment of Vaseline -- skim coat to scabbed/ open sites. Stephen was offered Band aide if he wished for one. He did decline. Demonstrated what a skim coat was with Stephen voicing understanding. He is excited to return to let nursing know he is doing , [facility] is aware to call with any questions or concerns. * Sharlene Corbin CMA - 03/26/2024 9:26 AM EDT Images from the original note were not included. Chief Complaint Patient presents with Follow Up Follow Up L/ear Patient is accompanied by Bibiana from [place] Patient was instructed to not get up [...] 9:40 AM EDT Office Visit Infectious Disease, [address] [phone] Rio Chun DO [address] [place] [address] 04/03/2024 1:30 PM EDT Office Visit Otolaryngology/Head & Neck/Facial Plastic Surgery [address] [place] [address] Gurvinder Garcia MD [address] [place], [place] [phone] 05/06/2024 9:00 AM EDT Office Visit Wound Care, [address] [address] Hermes Noble MD [address] [place] [address] 06/06/2024 9:30 AM EDT Office Visit Cardiology, [address] [address] Yas Mckinnon CRNP [address] [place] [address] 07/23/2024 9:30 AM EST Office Visit Radiation Oncology, [facility] [address] [place] [address] IovoliKo MD [address] [place] [address] Health Maintenance Due Date Last [...] this encounter Medical Devices Implanted Type Area Warranty Manager Device Identifier Shelf Expiration Date Model / Serial / Lot Connector Nerve 2mm 15mm - [id number] Implanted:Qty : 1 on 04/27/2023 by [place] H[place] [facility] [place] Face [employer] [id number] 12/24/2024 [id number] / / [id number] Alloderm 4x7 Thin 0.8-1.2 (28 Units) - [id number] - [id number] Implanted:Qty : 28 on 04/27/2023 by Dudley Hinojosa MD [place] [facility] [place] Face ABBVIE 12/18/2024 [id number] / [id number] / [id number] Sheeting Monisha 2x3in X.020in - [id number] Implanted:Qty : 1 on 04/27/2023 by Dudley Hinojosa MD [place] [facility] [place] Ear [employer] 09/25/2024 23-700-20 / / [id number] Sheeting Monisha 2x3 In X.005in - [id number] Implanted:Qty : 1 on 12/12/2023 by Gurvinder Garcia MD at [facility] Left: Ear [employer] 04/05/2026 23-700-05 / / [id number] Cath Pwr Picc Solo Inj 4f - [id number] Implanted:Qty : 1 on 01/26/2024 at [facility] CR BARD : ACCESS SYSTEM[employer] [id number] 06/20/2025 [id number] / / [id number] documented as of this encounter Visit Diagnoses Diagnosis Open wound of auricle of left ear with complication, initial encounter- Primary documented in this encounter Additional Health Concerns Infection Onset Date Last Indicated Resolved Time C. difficile 03/18/2024 03/18/2024 documented as of this encounter Advance Directives Documents on File Type Date Recorded Patient Costume Seamstress Expl anation POLST 02/16/2024 signed on 12/17 [place] ORDERS FOR LIFE-SUSTAINING TREATMENT POLST 04/26/2023 [place] OR DERS FOR LIFE-SUSTAINING TREATMENT * Full [...] on File Name Relationship Healthcare Agent [facility] Communication Brody Varela Adult Child Power of Crop Insurance Claims Adjuster Care Teams Working Supervisor Relationship Specialty Start Date End Date Jad Boone MD [address] [facility] [address] [facility] [place] [address] PCP - General Family Medicine 09/20/23 documented as of this encounter
--- OUTSIDE RECORDS SUMMARY | 2024-04-25 23:46 | External Medical Summary | Summary of Care ---
Author Name Unknown Organization [facility] Address [address] [facility] [place] [address] Phone [phone] Care Team Providers Care Vinyl Flooring Installer Name Role Phone Jad Boone MD Primary Care Provider Reason for Visit * Reason Comments Dosage Adjustment Via Phone (anticoag Cl inic) Encounter Details Date Type Department Care Team (Late st Contact Info) Description 04/04/2024 5:20 PM EDT Anticoagulation Centralized Clinical Pharmacy Services, Sandra Gómez [address] [place] [address] [place] [address] [facility], [address] [place] [address] PAF (paroxysmal atrial fibrillation) (FORMERLY [facility])* Allergies Active Allergy Reactions Criticality Noted Date [...] XL)Indications:Chr onic diastolic CHF (congestive heart failure) (FORMERLY [facility]) Take 1 Tablet by mouth in the [...] g 02/21/2024 Active Vitamin D3 1.25 MG (82137 UT) Oral Capsule Take 1 Capsule by [...] fibrillation) 10/18/2018 Coronary artery disease invo lving [place] coronary artery without angina pectoris 01/07/2015 [facility] [...] mRNA, LNP-s, No Pre serve, 2-Dose Series ([employer]) 11/26/2020,11/05/2020 Pneumococcal Conjugate Vacc, 13 Valent (Prevnar) [...] 10/10/2023 Does the household have a unm cancer centerlar source of income? (Household - for [...] as of this encounter Progress Notes * Hare, ARMANDO Green - 04/04/2024 2:47 PM EDT Caller's name: Jonna Preferred call back number(OFFICE NUMBER FOR ): [phone] ext [phone] Reason for call: Pt at rehab was taking 5mg T,Th. Sat/Sun. And 7.5mg M W F. She also said she neverreceived the fax, please refax the orders. Thank you, Domonique Bonilla Workforce Planner Centralized Clinical Pharmacy Services 04/04/2024,2:47 PM * Ree Kenny [facility] - 04/04/2024 2:08 PM EDT Images from the original note were not included. Medication Therapy Disease Management - Anticoagulation Patient: Stephne Francisco Avery | : 1945 Subjective Prison/SNF Patient Anticoagulation Encounter Patient is a resident at: [facility] -- Fax sent to number listed above detailing plan of care below. Please notify clinic with any unusual brusing or bleeding, N/V/D, medication or diet changes or anymissed or extra doses of Coumadin. Contacts Type Contact Phone/Fax 04/04/2024 02:46 PM EDT Phone (Incoming) mammoth Lucita~Jonna (Other) [phone] 04/04/2024 03:26 PM EDT Phone (Outgoing) Stephen Varela (Self) [phone] () Patient-Reported Symptoms: Patient Findings Positives: Missed doses (Rehab staff reports 5 mg Tues,Thurs, Sat, Sun and 7.5 mg all other days) Negatives: Signs/symptoms of bleeding, Change in health, Change in activity, Upcoming invasive procedure, Extra doses, Change in medications, Change in diet/appetite, Bruising Objective Current Warfarin Dose As of 04/04/2024 Warfarin maintenance plan: 10 mg (1 mg x 10) every Mon, Wed; 7.5 mg (1 mg x 7.5) all other days INR Result As of 04/04/2024 INR goal: 2.0-3.0 INR used for dosin.7 (04/04/2024) Assessment & Plan Warfarin Plan As of 04/04/2024 Full warfarin instructions: 04/04: 10 mg; Otherwise 7.5 mg every Mon, Wed, Fri; 5 mg all other days Next INR check: 04/11/2024 Repeat PT/INR in 1 week(s) Weekly dose: not changed- based on what patient was taking in rehab Additional Dosing Information: Description Call patient while at [facility] AND fax Facility at [phone] Cefepime and Vanco until 03/07/24 (getting weekly labs)- Changed to Dapto + Meropenem 02/15/24 pt started multivitamin around beginning of October Ree Kenny RPh Clinical Pharmacist 04/04/2024, 2:09 PM documented in this encounter Plan of Treatment Upcoming Encounters Date Type Department Care Team (Late st Contact Info) Description 04/08/2024 10:40 AM EDT Office Visit [address] [place] [address] Jad Boone MD [address] [place] [address] [address] [place] [address] 04/11/2024 6:15 PM EDT Anticoagulation Centralized Clinical Pharmacy Services, Sandra Gómez [address] [place] [address] [place] [address] [place] [address] 05/06/2024 9:00 AM EDT Office Visit Wound Care, [facility] [address] [facility] [place] [address] Hermes Noble MD [address] [place] [address] 06/06/2024 9:30 AM EDT Office Visit Cardiology, [place] [address] [facility] [place] [address] Yas [facility]ckinnon CRNP [address] [facility] [address] 07/23/2024 9:30 AM EST Office Visit Radiation Oncology, [facility] [address] [place] [address] IovoliKo MD [address] [place] [phone] Health Maintenance Due Date Last Done Comments [...] this encounter Medical Devices Implanted Type Area Furnace Worker Device Identifier Shelf Expiration Date Model / Serial / Lot Connector Nerve 2mm 15mm - [id number] Implanted:Qty : 1 on 04/27/2023 [place] Dud[place] H[place]josa [place] [facility] [place] Face [employer] [id number] 12/24/2024 [id number] / / [id number] Alloderm 4x7 Thin 0.8-1.2 (28 Units) - [id number] - [id number] Implanted:Qty : 28 on 04/27/2023 by Dudley Hinojosa MD [place] [facility] [place]: Face ABBVIE 12/18/2024 [id number] / [id number] / [id number] Sheeting Monisha 2x3in X.020in - [id number] Implanted:Qty : 1 on 04/27/2023 by Dudley Hinojosa MD [place] [facility]: Ear [employer] 09/25/2024 23-700-20 / / [id number] Sheeting Monisha 2x3 In X.005in - [id number] Implanted:Qty : 1 on 12/12/2023 by Gurvinder Garcia MD [place] [facility]: Ear [employer] 04/05/2026 23-700-05 / / [id number] Cath Pwr Picc Solo Inj 4f - [id number] Implanted:Qty : 1 on 01/26/2024 at [facility] CR BARD : ACCESS SYSTEMS [id number] 06/20/2025 [id number] / / [id number] documented as of this encounter Visit Diagnoses Diagnosis PAF (paroxysmal atrial fibrillation) (HCC)- Primary Atrial fibrillation documented in this encounter Additional Health Concerns Infection Onset Date Last Indicated Resolved Time C. difficile 03/18/2024 03/18/2024 documented as of this encounter Advance Directives Documents on File Type Date Recorded Patient Icing Coater Expl anation POLST 02/16/2024 signed on 12/17 [place] ORDERS FOR LIFE-SUSTAINING TREATMENT POLST 04/26/2023 Signed [...] File Name Relationship Healthcare Agent [facility] Child Power of Pallet Assembler Care Teams Vinyl Flooring Installer Relationship Specialty Start Date End Date Jad Boone MD [address] [facility] [address] [place] [address] PCP - General Family Medicine 09/20/23 documented as of this encounter
--- OUTSIDE RECORDS SUMMARY | 2024-04-25 23:46 | External Medical Summary ---
Author Name Unknown Address Unknown Organization K1F:LABORATORY [facility] - [address] [address] Laboratory Report Ordering Provider Test Date Status null,[facility] Provider 03/29/2024 06:40:00 Final Warfarin Therapy
INR: 2 .0-3.0 conventional anticoagulation
INR: 2.5- 3.5 high intensity anticoagulation Observation Date Value Abnormality Reference (Units ) Status PT 03/29/2024 06:40:00 21.0 Above high normal 11 .6-15.2 (seconds) Final INR 03/29/2024 06:40:00 1.8 Above high normal 0. 8-1.2 Final Performing Location LABORATORY [facility] - [address] [place] [address]
--- OUTSIDE RECORDS SUMMARY | 2024-04-25 23:46 | External Medical Summary | Summary of Care ---
Author Name Unknown Organization [facility] Address [address] [place] [address] Phone [phone] Care Team Providers Care Air Twister Winder Name Role Phone Jad Boone MD Primary Care Provider Reason for Visit * Reason Onset Date Comments Advice 04/04/2024 Encounter Details Date Type Department Care Team (Late st Contact Info) Description 04/04/[address] [place] [address] [phone] Jad Boone MD [facility] [address] [place] [phone] Advice Allergies Active Allergy Reactions Criticality [...] g 02/21/2024 Active Vitamin D3 1.25 MG (22878 UT) Oral Capsule Take 1 Capsule by [...] fibrillation) 10/18/2018 Coronary artery disease invo lving in[place] coronary artery without angina pectoris 01/07/2015 long term care social 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 thank you * Telephone Encounter - Cynthia Roberts LPN - 04/04/2024 2:30 PM EDT T/C to [facility] at this time. LVM to Sarah at this time to review below information, no answer LVM to call clinic back at [phone] * Telephone Encounter - Jad Boone MD - 04/04/2024 2:11 PM EDT C diff ordered. Taking a probiotic three times a day with meals for two weeks, may also help. Jad Boone MD 04/04/2024 * Telephone Encounter - Jes Mahmood LPN - 04/04/2024 8:23 AM EDT Sarah from [place] [facility] is calling. Reports that the pt returned to the [facility] yesterday and had Cdiff while on the Rehab side and finished his vancomycin there. Since returning to the [facility], around 6 PM pt noted diarrhea started [...] PM EDT Anticoagulation Centralized Clinical Pharmacy Services, [place] [address] [employer] [place] [address] [facility], [address] [place] [address] PAF (paroxysmal atrial fibrillation) (HCC)* 04/08/2024 10:40 AM EDT Office Visit [place] [address] [address] [place] [address] Jad Boone MD [facility] [place] [address] 05/06/2024 9:00 AM EDT Office Visit Wound Care, [facility] [address] [place] [address] Hermes Noble MD [address] [place] [address] 06/06/2024 9:30 AM EDT Office Visit Cardiology, [place] [address] [place] [address] Yas Mckinnon CRNP [address] [place], [place] [phone] 07/23/2024 9:30 AM EST Office Visit Radiation Oncology, [facility] [address] [place] [address] IovolKo aleman MD [address] [place] [phone] Scheduled Orders Name Type Priority Associated Diagnoses [...] this encounter Medical Devices Implanted Type Area Production Quality Manager Device Identifier Shelf Expiration Date Model / Serial / Lot Connector Nerve 2mm 15mm - [id number] Implanted:Qty : 1 on 04/27/2023 by Dudley Hinojosa MD at [place] [facility] [place] Left: Face [employer] [id number] 12/24/2024 [id number] / / [id number] Alloderm 4x7 Thin 0.8-1.2 (28 Units) - [id number] - [id number] Implanted:Qty : 28 on 04/27/2023 by Dudley Hinojosa MD at [place] [facility] [place] Left: Face ABBVIE 12/18/2024 [id number] / [id number] / [id number] Sheeting Monisha 2x3in X.020in - [id number] Implanted:Qty : 1 on 04/27/2023 by Dudley Hinojosa MD at [place] [facility] [place] Left: Ear [employer]IED [employer] 09/25/2024 23-700-20 / / [id number] Sheeting Monisha 2x3 In X.005in - [id number] Implanted:Qty : 1 on 12/12/2023 by Gurvinder Garcia MD at OR [facility] [place] Left: Ear [employer] 04/05/2026 23-700-05 / / [id number] Cath Pwr Picc Solo Inj 4f - [id number] Implanted:Qty : 1 on 01/26/2024 at [facility] CR BARD : ACCESS SYSTEMS [id number] 06/20/2025 [id number] / / [id number] documented as of this encounter Visit Diagnoses Diagnosis Watery diarrhea- Primary PAF (paroxysmal atrial fibrillation) (HCC)- Primary Atrial fibrillation documented in this encounter Additional Health Concerns Infection Onset Date Last Indicated Resolved Time C. difficile 03/18/2024 03/18/2024 documented as of this encounter Advance Directives Documents on File Type Date Recorded Patient Granulator Machine Operator Expl anation POLST 02/16/2024 signed on 12/17 [place] ORDERS FOR LIFE-SUSTAINING TREATMENT POLST 04/26/2023 [place] OR DERS FOR LIFE-SUSTAINING TREATMENT * Full [...] Communication Brody Varela Adult Child Power of Cardiac Specialist Care Teams Air Twister Winder Relationship Specialty Start Date End Date Jad Boone MD [address] [facility] [address] [facility] [place] [address] PCP - General Family Medicine 09/20/23 documented as of this encounter
--- OUTSIDE RECORDS SUMMARY | 2024-04-25 23:46 | External Medical Summary ---
Author Name Unknown Address Unknown Organization K1F:LABORATORY [facility] - [address] [place] [address] Laboratory Report Ordering Provider Test Date Status CHERI CARTER 04/04/2024 06:06:00 Final Warfarin Therapy
INR: 2 .0-3.0 conventional anticoagulation
INR: 2.5- 3.5 high intensity anticoagulation Observation Date Value Abnormality Reference (Units ) Status PT 04/04/2024 06:06:00 20.5 Above high normal 11 .6-15.2 (seconds) Final INR 04/04/2024 06:06:00 1.7 Above high normal 0. 8-1.2 Final Performing Location LAB[facility]ORY [facility] - [address] [place] [address]
--- OUTSIDE RECORDS SUMMARY | 2024-04-25 23:46 | External Medical Summary ---
Author Name Unknown Address Unknown Organization K1F:[facility] - [address] [place] [address] Laboratory Report Ordering Provider Test Date Status SENG GARCIA 04/03/2024 06:34:00 Final Observation Date Value Abnormality Reference (Units ) Status BUN 04/03/2024 06:34:00 25 Above high normal 6-20 (mg/dL) Final Creatinine 04/03/2024 06:34:00 1.4 Above high normal 0.6-1.2 (mg/dL) Final Glomerular filtration rate/1.73 sq M.predicted [Volume Rate/Area] in Serum, Plasma or Blood by Creatinine-based formula (CKD-EPI) 04/03/2024 06:34:00 52 Below low normal >=60 (mL/min) Final eGFR is calculated based on the CKD-EPI 2020 equation. Sodium 04/03/2024 06:34:00 142 135-146 (m mol/L) Final Potassium 04/03/2024 06:34:00 4.6 3.5-5.1 (m mol/L) Final Cl 04/03/2024 06:34:00 102 98-107 (mm ol/L) Final CO2 04/03/2024 06:34:00 25 22-32 (mmo l/L) Final Anion gap 04/03/2024 06:34:00 15 7-15 (mmol /L) Final Glucose 04/03/2024 06:34:00 87 70-120 (mg /dL) Final Calcium 04/03/2024 06:34:00 9.5 8.4-10.2 ( mg/dL) Final Performing Location LAB[facility]ATORY [facility] - [address] [place] [address]
--- OUTSIDE RECORDS SUMMARY | 2024-04-25 23:46 | External Medical Summary | Summary of Care ---
Author Name Unknown Organization [facility] Address [address] [place] [address] Phone [phone] Care Team Providers Care Women'S Apparel Salesperson Name Role Phone Jad Boone MD Primary Care Provider Reason for Visit * Reason Onset Date Comments FYI 12/27/2023 Admitted to home health Encounter Details Date Type Department Care Team (Late st Contact Info) Description 12/27/2023 Telephone [place] [address] [place] [address] [phone] Jad Boone MD [facility]2 [facility] [address] [place] [address] [phone] FYI (Admitted to home health) Allergies Active Allergy Reactions Criticality Noted Date Comments Bee Venom Hives High 03/14/2017 documented as of this encounter (statuses as of 03/27/2024) Medications Medication Sig Dispensed Refills Start Date [...] as needed for Shortness of Breath. 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 therapy 0 05/01/2014 Overview: ICD-10 update of inactive term Heart failure, systolic, due to CAD 08/28/2012 Overview: ECHO 2011 - Segmental wall abnormality, severe hypokinesis of anterior septum, anterior wall, apex, distal inferior septum, distal inferior wall, and distal posterior wall EF 33% Mass of left parotid gland documented as of this encounter (statuses as of 03/27/2024) Resolved Problems Problem Noted Date Diagnosed Date [...] as of this encounter (statuses as of 03/27/2024) Immunizations Name Administration Dates Next Due COVID-19 [...] No 10/10/2023 Does the household have a [facility] source of income? (Household - for [...] (15 years old or older) No 04/26/20 Cognitive Status Response Date of Assessm ent Because of a physical, menta l, or emotional condition, do you have serious difficulty concentrating, remembering, or making decisions? (5 years old or older) No 04/26/2023 documented as of this encounter Miscellaneous Notes * Telephone Encounter - Tere Campa CMA - 12/27/2023 3:00 PM EDT fyi * Telephone Encounter - Evelia Soto OSA - 12/27/2023 2:41 PM EDT Ashlee calling from [facility] patient was admitted to home health services today12/27/23. documented in this encounter Plan of Treatment Upcoming Encounters Date Type Department Care Team (Late st Contact Info) Description 04/02/2024 9:40 AM EDT Office Visit Infectious Disease, [address] [phone] Rio Chun DO [address] [place] [address] 04/03/2024 1:30 PM EDT Office Visit Otolaryngology/Head & Neck/Facial Plastic Surgery [address] [place] [address] Gurvinder Garcia MD [address] [place] [address] 05/06/2024 9:00 AM EDT Office Visit Wound Care, [address] [address] [place] [address] 06/06/2024 9:30 AM EDT Office Visit Cardiology, [address] [address] [facility] CR[facility] [address] [facility] [place] [address] 07/23/2024 9:30 AM EST Office Visit Radiation Oncology, [facility] [address] [place] [address] IovoliKo MD [address] [place] [phone] Health Maintenance Due Date Last Done Comments [...] this encounter Medical Devices Implanted Type Area Medicinal Chemist Device Identifier Shelf Expiration Date Model / Serial / Lot Connector Nerve 2mm 15mm - [id number] Implanted:Qty : 1 on 04/27/2023 by Dudley Hinojosa [place] [facility] [place] Face [employer] [id number] 12/24/2024 [id number] / / [id number] Alloderm 4x7 Thin 0.8-1.2 (28 Units) - [id number] - [id number] Implanted:Qty : 28 on 04/27/2023 by Dudley Hinojosa MD [place] [facility] [place]: Face ABBVIE 12/18/2024 [id number] / [id number] / [id number] Sheeting Monisha 2x3in X.020in - [id number] Implanted:Qty : 1 on 04/27/2023 by Dudley Hinojosa MD [place] [facility] [place]: Ear [employer] 09/25/2024 / / [id number] Sheeting Monisha 2x3 In X.005in - [id number] Implanted:Qty : 1 on 12/12/2023 by Gurvinder Garcia MD [place] [facility] [place]: Ear [employer] 04/05/2026- / / [id number] Cath Pwr Picc Solo Inj 4f - [id number] Implanted:Qty : 1 on 01/26/2024 at [facility] CR BARD : ACCESS SYSTEMS [id number] 06/20/2025 [id number] / / [id number] documented as of this encounter Additional Health Concerns Infection Onset Date Last Indicated Resolved Time MRSA Comment:Per [place], infection is able to be resolved after 42 days from date of onset - ASHLEY liriano 03/07/24 01/24/2024 01/24/2024 03/22/2024 1:31 PM E DT C. difficile 03/18/2024 03/18/2024 C. 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
--- OUTSIDE RECORDS SUMMARY | 2024-04-25 23:46 | External Medical Summary ---
Author Name Unknown Address Unknown Organization K1F:LABORATORY [facility] - [address] [facility]. [place] [address] Laboratory Report Ordering Provider Test Date Status SENG GARCIA 03/27/2024 06:35:00 Final Observation Date Value Abnormality Reference (Units ) Status SYNC LEUKOCYTES IN BLOOD BY AUTOMATED COUNT 03/27/2024 06:35:00 9.47 4.00-10.80 (K/uL) Final Segs 03/27/2024 06:35:00 73.4 40.0-75.0 (%) Final Lymphs % 03/27/2024 06:35:00 9.1 Below low normal 18.0-42.0 (%) Final Monos 03/27/2024 06:35:00 9.3 1.0-11.0 (%) Final Eosinophils 03/27/2024 06:35:00 7.1 Above high normal 0.0-6.0 (%) Final Basos 03/27/2024 06:35:00 0.7 0.0-2.0 (%) Final Immature Granulocyte, Percent 03/27/2024 06:35:00 0.4 0.0-2.0 (%) Final Absolute Segs 03/27/2024 06:35:00 6.95 1.80-7.70 (K/uL) Final Lymphs, absolute 03/27/2024 06:35:00 0.86 Below low normal 1.00-4.80 (K/ul) Final Monos, Abs 03/27/2024 06:35:00 0.88 0.00-1.10 (K/uL) Final Eos, Abs 03/27/2024 06:35:00 0.67 0.00-0.70 (K/uL) Final Basos, Abs 03/27/2024 06:35:00 0.07 0.00-0.20 (K/uL) Final Immature Granulocytes, Number 03/27/2024 06:35:00 0.04 0.00-0.20 (K/uL) Final Performing Location LABORATORY [facility] - [address] [place], [place] [address] [place]. [place] [address]
--- OUTSIDE RECORDS SUMMARY | 2024-04-25 23:47 | External Medical Summary ---
Author Name Unknown Address Unknown Organization K1F:LABORATORY [facility] - [address] [facility]. [place] [address] Laboratory Report Ordering Provider Test Date Status SENG GARCIA 03/13/2024 06:12:00 Final Observation Date Value Abnormality Reference (Units ) Status SYNC LEUKOCYTES IN BLOOD BY AUTOMATED COUNT 03/13/2024 06:12:00 10.19 4.00-10.80 (K/uL) Final Segs 03/13/2024 06:12:00 82.4 Above high normal 40.0-75.0 (%) Final Lymphs % 03/13/2024 06:12:00 5.1 Below low normal 18.0-42.0 (%) Final Monos 03/13/2024 06:12:00 6.8 1.0-11.0 (%) Final Eosinophils 03/13/2024 06:12:00 5.0 0.0-6.0 (%) Final Basos 03/13/2024 06:12:00 0.5 0.0-2.0 (%) Final Immature Granulocyte, Percent 03/13/2024 06:12:00 0.2 0.0-2.0 (%) Final Absolute Segs 03/13/2024 06:12:00 8.40 Above high normal 1.80-7.70 (K/uL) Final Lymphs, absolute 03/13/2024 06:12:00 0.52 Below low normal 1.00-4.80 (K/ul) Final Monos, Abs 03/13/2024 06:12:00 0.69 0.00-1.10 (K/uL) Final Eos, Abs 03/13/2024 06:12:00 0.51 0.00-0.70 (K/uL) Final Basos, Abs 03/13/2024 06:12:00 0.05 0.00-0.20 (K/uL) Final Immature Granulocytes, Number 03/13/2024 06:12:00 0.02 0.00-0.20 (K/uL) Final Performing Location LABORATORY [facility] - [facility] [place] [place] [address]
--- OUTSIDE RECORDS SUMMARY | 2024-04-25 23:47 | External Medical Summary ---
Author Name Unknown Address Unknown Organization K1F:[facility] - [address] [place] [address] Laboratory Report Ordering Provider Test Date Status SENG GARCIA 03/06/2024 06:04:00 Final Observation Date Value Abnormality Reference (Units ) Status BUN 03/06/2024 06:04:00 50 Above high normal 6-20 (mg/dL) Final Creatinine 03/06/2024 06:04:00 2.1 Above high normal 0.6-1.2 (mg/dL) Final Glomerular filtration rate/1.73 sq M.predicted [Volume Rate/Area] in Serum, Plasma or Blood by Creatinine-based formula (CKD-EPI) 03/06/2024 06:04:00 33 Below low normal >=60 (mL/min) Final eGFR is calculated based on the CKD-EPI 2020 equation Sodium 03/06/2024 06:04:00 142 135-146 (m mol/L) Final Potassium 03/06/2024 06:04:00 4.6 3.5-5.1 (m mol/L) Final Cl 03/06/2024 06:04:00 104 98-107 (mm ol/L) Final CO2 03/06/2024 06:04:00 27 22-32 (mmo l/L) Final Anion gap 03/06/2024 06:04:00 11 7-15 (mmol /L) Final Glucose 03/06/2024 06:04:00 84 70-120 (mg /dL) Final Calcium 03/06/2024 06:04:00 9.2 8.4-10.2 ( mg/dL) Final Performing Location LABORATORY [facility] - [address] [place] [address]
--- OUTSIDE RECORDS SUMMARY | 2024-04-25 23:47 | External Medical Summary | Summary of Care ---
Author Name Unknown Organization [facility] Address [address] [facility] [place] [address] Phone [phone] Care Team Providers Care Painter Set Name Role Phone Jad Boone MD Primary Care Provider Reason for Visit * Reason Comments Dosage Adjustment Via Phone (anticoag Cl inic) Encounter Details Date Type Department Care Team (Late st Contact Info) Description 03/25/2024 5:20 PM EDT Anticoagulation Centralized Clinical Pharmacy Services, Sandra G[address]me[address] [place] [address] [place] [address] [facility], [address] [place] [address] PAF (paroxysmal atrial fibrillation) ([facility])* Allergies Active Allergy Reactions Criticality Noted Date Comments Bee Venom Hives High 03/14/2017 documented as of this encounter (statuses as of 03/25/2024) Medications Medication Sig Dispensed Refills Start Date End Date Status Omeprazole 20 MG Oral Capsule Delayed Release (PriLOSEC) Take 1 Capsule by mouth in the morning. 90 Capsule 1 11/15/2022 Active Multivitamin Adult Oral Tablet Take by mouth every evening. Active Metoprolol Succinate ER 25 MG Oral Tablet Extended Release 24 Hour (Toprol XL)Indications:Chr onic diastolic CHF (congestive heart failure) ([facility]) Take 1 Tablet by mouth in [...] g 02/21/2024 Active Vitamin D3 1.25 MG (74645 UT) Oral Capsule Take 1 Capsule by mouth once a week. Every Monday 12 Capsule 02/21/2024 Active oxyCODONE HCl 5 MG Oral Capsule (Oxy IR) Take 1 Capsule by mouth every 6 hours as needed for Pain, Moderate or Pain, Severe. 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 0 05/01/2014 Overview: ICD-10 update of inactive term Heart failure, systolic, due to CAD 08/28/2012 Overview: ECHO 2011 - Segmental wall abnormality, severe hypokinesis of anterior septum, anterior wall, apex, distal inferior septum, distal inferior wall, and distal posterior wall EF 33% Mass of left parotid gland documented as of this encounter (statuses as of 03/25/2024) Resolved Problems Problem Noted Date Diagnosed Date [...] as of this encounter (statuses as of 03/25/2024) Immunizations Name Administration Dates Next Due COVID-19 mRNA, LNP-s, No Pre serve, 2-Dose Series (ReferBright) 11/26/2020,11/05/2020 Pneumococcal Conjugate Vacc, 13 Valent (Prevnar) [...] No 10/10/2023 Does the household have a [facility] source of income? (Household - for ages [...] of this encounter Progress Notes * Lamar Early, fingernail sculptor - 03/25/2024 10:03 AM EDT Contacts Type Contact Phone/Fax 03/25/2024 10:00 AM EDT Phone (Outgoing) Stephen Varela (Self) [phone] (M) Left Message - Left voicemail/ Outgoing voicemail message was identified as the patient Subjective Advised patient to contact Anticoagulation Clinic if any unusual bruising or bleeding, recent illness, changes in medication, or questions/concerns. PT/INR results, Coumadin dose instructions, and next PT/INR date communicated as noted by Pharmacist: Yes LAMAR EARLY CPhT 03/25/2024, 10:03 AM * Alyson Salinas RPh - 03/25/2024 9:55 AM EDT Coumadin Clinic (region specific) Objective Current Warfarin Dose As of 03/25/2024 Warfarin maintenance plan: 10 mg (1 mg x 10) every Mon, Wed; 7.5 mg (1 mg x 7.5) all other days INR Result As of 03/25/2024 INR goal: 2.0-3.0 INR used for dosin.7 (03/22/2024) Assessment & Plan Warfarin Plan As of 03/25/2024 Full warfarin instructions: 10 mg every Mon, Wed; 7.5 mg all other days No change documented: Alyson Salinas RPh Next INR check: 04/01/2024 Repeat PT/INR in 1.5 week(s) Weekly dose: not changed Additional Dosing Information: Description Call patient while at [facility] AND fax Facility at [phone] Cefepime and Vanco until 03/07/24 (getting weekly labs)- Changed to Dapto + Meropenem 02/15/24 pt started multivitamin around beginning of October Tech to contact patient with dose instructions as noted. Alyson Salinas RPh 03/25/2024, 9:56 AM documented in this encounter Plan of Treatment Upcoming Encounters Date Type Department Care Team (Late st Contact Info) Description 03/26/2024 9:00 AM EDT Office Visit Wound Care, [address] [address] Hermes Noble MD [address] [place] [address] 04/02/2024 9:40 AM EDT Office Visit Infectious Disease, [facility] [address] [place] [phone] Rio Chun DO [address] [place] [address] 04/03/2024 1:30 PM EDT Office Visit Otolaryngology/Head & Neck/Facial Plastic Surgery [address] [place] [address] Gurvinder Garcia MD [address] [place] [address] 06/06/2024 9:30 AM EDT Office Visit Cardiology, [address] [address] Yas Mckinnon CRNP [address] [place] [address] 07/23/2024 9:30 AM EST Office Visit Radiation Oncology, [facility] [address] [place], [place] [phone] IovolKo aleman MD [address] [place] [address] Health Maintenance Due Date Last Done Comments Albumin/Creatinine Ratio 1963 Hepatitis C Screening 1963 Zoster Vaccines (2 of 3) 06/26/2014 05/01/2014 [...] this encounter Medical Devices Implanted Type Area Cake Knocker Device Identifier Shelf Expiration Date Model / Serial / Lot Connector Nerve 2mm 15mm - [id number] Implanted:Qty : 1 on 04/27/2023 by Dudley Hinojosa MD [place] [facility] [place] Face [employer] [id number] 12/24/2024 [id number] / / [id number] Alloderm 4x7 Thin 0.8-1.2 (28 Units) - [id number] - [id number] Implanted:Qty : 28 on 04/27/2023 by Dudley Hinojosa MD at [place] [facility] [place] Left: Face ABBVIE 12/18/2024 [id number] / [id number] / [id number] Sheeting Monisha 2x3in X.020in - [id number] Implanted:Qty : 1 on 04/27/2023 by Dudley Hinojosa MD at [place] [facility] [place] Left: Ear [employer] 09/25/2024 23-700-20 / / [id number] Sheeting Monisha 2x3 In X.005in - [id number] Implanted:Qty : 1 on 12/12/2023 by Gurvinder Garcia MD at [facility] Left: Ear [employer] 04/05/2026 23-700-05 / / [id number] Cath Pwr Picc Solo Inj 4f - [id number] Implanted:Qty : 1 on 01/26/2024 at [facility] CR BARD : ACCESS SYSTEMS [id number] 06/20/2025 [id number] / / [id number] documented as of this encounter Visit Diagnoses Diagnosis PAF (paroxysmal atrial fibrillation) (HCC)- Primary Atrial fibrillation documented in this encounter Additional Health Concerns Infection Onset Date Last Indicated Resolved Time C. 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
--- OUTSIDE RECORDS SUMMARY | 2024-04-25 23:47 | External Medical Summary ---
Author Name Unknown Address Unknown Organization K1F:LABORATORY [facility] - [address] [address] Laboratory Report Ordering Provider Test Date Status SENG GARCIA 03/06/2024 06:04:00 Final Observation Date Value Abnormality Reference (Units ) Status WBC, Total 03/06/2024 06:04:00 7.11 4.00-10.80 (K/uL) Final RBC 03/06/2024 06:04:00 3.50 4.50-5.25 (M/uL) Final Hemoglobin 03/06/2024 06:04:00 9.6 Below low normal 14.0-16.8 (g/dL) Final HCT 03/06/2024 06:04:00 30.6 Below low normal 40.0-48.4 (%) Final MCV 03/06/2024 06:04:00 87.4 82.0-99.5 (fL) Final MCH 03/06/2024 06:04:00 27.4 27.0-34.0 (pg) Final MCHC 03/06/2024 06:04:00 31.4 32.0-36.0 (g/dL) Final RDW 03/06/2024 06:04:00 17.3 11.5-15.5 (%) Final Platelets 03/06/2024 06:04:00 148 140-400 (K/uL) Final MPV 03/06/2024 06:04:00 10.6 6.6-11.1 (fL) Final Nucleated erythrocytes/100 leukocytes [Ratio] in Blood by Automated count 03/06/2024 06:04:00 0 <=0 (/100 WBCs) Final Performing Location LABORATORY [facility] - [address] [address]
--- OUTSIDE RECORDS SUMMARY | 2024-04-25 23:47 | External Medical Summary | Summary of Care ---
Author Name Unknown Organization [facility] Address [address] [facility] [place] [address] Phone [phone] Care Team Providers Care 1[employer] Name Role Phone Jad Boone MD Primary Care Provider Reason for Visit * Reason Comments Dosage Adjustment Via Phone (anticoag Cl inic) Encounter Details Date Type Department Care Team (Late st Contact Info) Description 03/11/2024 5:20 PM EDT Anticoagulation Centralized Clinical Pharmacy Services, Sandra Gómez [address] [place] [address] [place] [address] [facility], [address] [place] [address] PAF (paroxysmal atrial fibrillation) ([facility])* Allergies Active Allergy Reactions Criticality Noted Date Comments Bee Venom Hives High 03/14/2017 documented as of this encounter (statuses as of 03/11/2024) Medications Medication Sig Dispensed Refills Start Date End Date Status Omeprazole 20 MG Oral Capsule Delayed Release (PriLOSEC) Take 1 Capsule by mouth in the morning. 90 Capsule 1 11/15/2022 Active Multivitamin Adult Oral Tablet Take by mouth every evening. Active Metoprolol Succinate ER 25 MG Oral Tablet Extended Release 24 Hour (Toprol XL)Indications:Chr onic diastolic CHF (congestive heart failure) ([facility]) Take 1 Tablet by mouth [...] g 02/21/2024 Active Vitamin D3 1.25 MG (26555 UT) Oral Capsule Take 1 Capsule by mouth once a week. Every Monday 12 Capsule 02/21/2024 Active oxyCODONE HCl 5 MG Oral Capsule (Oxy IR) Take 1 Capsule by mouth every 6 hours as needed for Pain, Moderate or Pain, Severe. 10 Tablet 02/21/2024 Active documented as of this encounter (statuses as of 03/11/2024) Active Problems Problem Noted Date Diagnosed Date [...] fibrillation) 10/18/2018 Coronary artery disease invo lving [place] coronary artery without angina pectoris 01/07/2015 senior care current use of anticoagulant therapy 0 05/01/2014 Overview: ICD-10 update of inactive term Heart failure, systolic, due to CAD 08/28/2012 Overview: ECHO 2011 - Segmental wall abnormality, severe hypokinesis of anterior septum, anterior wall, apex, distal inferior septum, distal inferior wall, and distal posterior wall EF 33% Mass of left parotid gland documented as of this encounter (statuses as of 03/11/2024) Resolved Problems Problem Noted Date Diagnosed Date [...] as of this encounter (statuses as of 03/11/2024) Immunizations Name Administration Dates Next Due COVID-19 [...] No 10/10/2023 Does the household have a [facility] source of income? (Household - [...] as of this encounter Progress Notes * Samuel Joseph PHARM Tech - 03/11/2024 12:20 PM EDT Contacts Type Contact Phone/Fax 03/11/2024 12:03 PM EDT Phone (Outgoing) Stephen Varela Francisco (Self) [phone] (M) Left Message Subjective PT/INR results, Coumadin dose instructions, and next PT/INR date communicated as noted by Pharmacist: Yes ARMANDO Munguia 03/11/2024, 12:20 PM * Gretel Frazier RPh - 03/11/2024 11:06 AM EDT Stephen Varela (47) Coumadin Clinic (region specific) Objective Current Warfarin Dose As of 03/11/2024 Warfarin maintenance plan: 10 mg (1 mg x 10) every Mon, Wed; 7.5 mg (1 mg x 7.5) all other days INR Result As of 03/11/2024 INR goal: 2.0-3.0 INR used for dosin.6 (03/11/2024) Assessment & Plan Warfarin Plan As of 03/11/2024 Full warfarin instructions: 10 mg every Mon, Wed; 7.5 mg all other days No change documented: Gretel Frazier RPh Next INR check: 03/25/2024 Repeat PT/INR in 2 week(s) Weekly dose: not changed Additional Dosing Information: Description Call patient while at [facility] AND fax Facility at [phone] Cefepime and Vanco until 03/07/24 (getting weekly labs)- Changed to Dapto + Meropenem 02/15/24 pt started multivitamin around beginning of October Tech to contact patient with dose instructions as noted. Gretel Frazier RPh 03/11/2024, 11:07 AM documented in this encounter Plan of Treatment Upcoming Encounters Date Type Department Care Team (Late st Contact Info) Description 03/18/2024 9:40 AM EDT Office Visit Wound Care, [address] [address] Hermes Noble MD [address] [place] [address] 03/25/2024 5:20 PM EDT Anticoagulation Centralized Clinical Pharmacy Services, [address] [place] [address] [facility], [address] [place] [address] 04/02/2024 9:40 AM EDT Office Visit Infectious Disease, [address] [phone] Rio Chun DO [address] [place] [address] 04/03/2024 1:30 PM EDT Office Visit Otolaryngology/Head & Neck/Facial Plastic Surgery [address] [place] [address] Gurvinder Garcia MD [address] [place] [address] 06/06/2024 9:30 AM EDT Office Visit Cardiology, [address] [address] Yas Mckinnon CRNP [address] [place] [address] 07/23/2024 9:30 AM EST Office Visit Radiation Oncology, [facility] [address] [place] [address] Ko Grace MD [address] [place] [address] Health Maintenance Due Date Last Done Comments Albumin/Creatinine Ratio 1963 Hepatitis C Screening 1963 Zoster Vaccines (2 of 3) 06/26/2014 05/01/2014 *SPIROMETRY ONCE FOR ASTHMA-ADULT 07/14/2022 COVID-19 Vaccine (2022- season) 2023 06/01/2023, 06/01/2023, 06/09/2022, Additional history exists Influenza Vaccine (FLU shot) (#1) 2024 05/30/2023, 05/30/2023, 05/18/2022, Additional history exists Depression Screening 09/18/2024 09/18/2023 GFR 03/06/2025 03/06/2024, 02/18, 02/28/2024, Additional history exists DTaP,Tdap,and Td Vaccines (2 [...] this encounter Medical Devices Implanted Type Area Real Estate Loan Officer Device Identifier Shelf Expiration Date Model / Serial / Lot Connector Nerve 2mm 15mm - [id number] Implanted:Qty : 1 on 04/27/2023 by Dudley Hinojosa MD at OR [facility] Left: Face [employer] [id number] 12/24/2024 [id number] / / [id number] Alloderm 4x7 Thin 0.8-1.2 (28 Units) - [id number] - [id number] Implanted:Qty : 28 on 04/27/2023 by Dudley Hinojosa MD at OR [facility] Left: Face ABBVIE 12/18/2024 [id number] / [id number] / [id number] Sheeting Monisha 2x3in X.020in - [id number] Implanted:Qty : 1 on 04/27/2023 by Dudley Hinojosa MD at OR [facility] Left: Ear [employer]IED [employer] 09/25/2024700-20 / / [id number] Sheeting Monisha 2x3 In X.005in - [id number] Implanted:Qty : 1 on 12/12/2023 by Gurvinder Garcia MD at OR [facility] Left: Ear [employer] 04/05/2026- / / [id number] Cath Pwr Picc Solo Inj 4f - [id number] Implanted:Qty : 1 on 01/26/2024 at [facility] CR BARD : ACCESS SYSTEMS [id number] 06/20/2025 [id number] / / [id number] documented as of this encounter Visit Diagnoses Diagnosis PAF (paroxysmal atrial fibrillation) (HCC)- Primary Atrial fibrillation 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 documented as of this encounter Advance Directives Documents on File Type Date Recorded 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 Adult Child Power of Porcelain Waxer Care Teams 1[employer] Relationship Specialty Start Date End Date Jad Boone MD [address] [address] [place] [address] PCP - General Family Medicine 09/20/23 documented as of this encounter
--- OUTSIDE RECORDS SUMMARY | 2024-04-25 23:47 | External Medical Summary | Summary of Care ---
Author Name Unknown Organization [facility] Address [address] [place] [address] Phone [phone] Care Team Providers Care Brine Tank Separator Operator Name Role Phone Jad Boone MD Primary Care Provider Reason for Visit * Reason Comments Dosage Adjustment Via Phone (anticoag Cl inic) Encounter Details Date Type Department Care Team (Late st Contact Info) Description 02/14/2024 3:00 PM EDT Pharmacy Infectious Disease, [place] [address] [id number], Pharmacist Infectious Disease [address] [place] [address] Encounter for therapeutic drug level monitoring*; MRSA (methicillin resistant Staphylococcus aureus) infection Allergies Active Allergy Reactions Criticality Noted Date Comments Bee Venom Hives High 03/14/2017 documented as of this encounter (statuses as of 03/04/2024) Medications Medication Sig Dispensed Refills Start Date [...] the morning. 90 Tablet 3 3 Active Diphenhyd-Calami ne-Benzyl Alc 2-14-10.5 % External [...] Dulcolax is ineffective* (bowel protocol) 4 Active Vitamin D3 1.25 MG (69634 UT) Oral Capsule Take 1 Capsule by mouth once a week. 12 Capsule 3 3 024 Discontinued Atorvastatin Calcium 20 MG Oral Tablet (Lipitor)Indicat ions:Coronary artery disease involving [place] coronary artery of [place] heart without angina pectoris TAKE 1 TABLET, BY MOUTH, IN THE MORNING. 90 Tablet 1 3 024 Discontinued Acetaminophen 325 MG Oral Tablet (Tylenol) Take 2 Tablets by mouth every 6 hours as needed for Pain, Mild. 30 Tablet 3 024 Discontinued Lisinopril 10 MG Oral Tablet (Prinivil)Indica tions:Chronic heart failure with preserved ejection fraction (HFpEF) ([facility]) Take 1 Tablet by mouth in the morning. 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 103.317 mL 4 024 Discontinued oxyCODONE HCl 5 MG Oral Capsule (Oxy IR) Take 1 Capsule by mouth every 6 hours as needed. 024 Discontinued amLODIPine Besylate 2.5 MG Oral Tablet (Norvasc) Take 1 Tablet by mouth in the morning. 30 Tablet 4 024 Discontinued vancomycin IV IV (AMBULATORY) Administer 1,000 mg intravenously in the morning and 1,000 mg in the evening. 80 g 4 024 Discontinued cefepime IV IJ (AMBULATORY) Administer 2 g intravenously in the morning and 2 g at noon and 2 g before bedtime. 240 g 4 024 Discontinued Furosemide 40 MG Oral Tablet (Lasix) Take 1 Tablet by mouth in the morning. 4 024 Discontinued Warfarin Sodium 5 MG Oral Tablet (Coumadin)Indica tions:PAF (paroxysmal atrial fibrillation) ([facility]) Take 1 tablet by mouth on Monday and 1.5 tablet by mouth S,S,M,T,W,TH 4 024 Discontinued documented as of this encounter (statuses as of 03/04/2024) Active Problems Problem Noted Date Diagnosed Date [...] fibrillation) 10/18/2018 Coronary artery disease invo lving [place] coronary artery without angina pectoris 01/07/2015 [facility] current use of anticoagulant therapy 0 05/01/2014 Overview: ICD-10 update of inactive term Heart failure, systolic, due to CAD 08/28/2012 Overview: ECHO 2011 - Segmental wall abnormality, severe hypokinesis of anterior septum, anterior wall, apex, distal inferior septum, distal inferior wall, and distal posterior wall EF 33% Mass of left parotid gland documented as of this encounter (statuses as of 03/04/2024) Resolved Problems Problem Noted Date Diagnosed Date [...] as of this encounter (statuses as of 03/04/2024) Immunizations Name Administration Dates Next Due COVID-19 mRNA, LNP-s, No Pre serve, 2-Dose Series (SterraClimb) 11/26/2020,11/05/2020 Pneumococcal Conjugate Vacc, 13 Valent (Prevnar) [...] as of this encounter Progress Notes * Carla Gray, [facility] - 02/14/2024 8:19 AM EDT [facility] OUTPATIENT PHARMACOKINETIC CONSULT [address] [place] [address] Name: Stephen Singh Avery Date/Time: 02/14/2024 8:19 AM Patient on Outpatient Parenteral Antimicrobial Therapy with monitoring and management by [facility] Infectious Disease [facility] Pharmacist under Collaborative Practice Agreement with [facility] Infectious Disease physician Dr. Laura Arambula. Patient resides at [facility] Medication(s) being managed: Vancomycin IV - Goal AUC 400-600 mg/L.hr Current dose: Vancomycin 1000 mg q24h (at 600am) Source of infection: Osteo of Jaw Bacteria being treated: MRSA Anticipated End Date: 03/07/2024 Follow up with Infectious Disease Physician: Dr. Laura Arambula Imaging/Other Testing Needed: N/A Intravascular Access Device: Order in place from ID physician to remove intravascular access upon completion of IV antibiotic(s) LABORATORY MONITORING Ordered Weekly: CBC/diff, BMP, and Vancomycin level(s) for AUC monitoring Ordered Every 2 weeks: CRP Phone Numbers: [employer] - p) [phone] Lab information: Labs can be processed any day at [facility] Sent to [employer] to be processed Lab information: Lab Results Component Value Date/Time WBC 7.10 02/08/2024 04:27 AM WBC 7.40 02/05/2024 06:41 AM WBC 8.25 01/29/2024 06:23 AM WBC 7.30 01/27/2024 04:55 AM WBC 6.82 01/26/2024 05:04 AM WBC 10.09 09/13/2020 05:39 AM WBC 13.25 (H) 09/12/2020 05:34 AM WBC 8.24 09/11/2020 11:58 AM WBC 8.14 03/06/2017 09:17 AM WBC 6.70 12/24/2014 08:56 AM Lab Results Component Value Date/Time BUN 30 (H) 02/08/2024 04:27 AM BUN 31 (H) 02/05/2024 06:41 AM BUN 30 (H) 02/01/2024 06:35 AM BUN 23 (H) 01/29/2024 06:23 AM BUN 24 (H) 01/27/2024 04:55 AM BUN 17 09/16/2020 10:25 AM BUN 15 09/13/2020 05:39 AM BUN 17 09/12/2020 05:34 AM BUN 20 09/11/2020 11:58 AM BUN 26 (H) 05/11/2020 09:17 AM Lab Results Component Value Date/Time CREAT 1.2 02/08/2024 04:27 AM CREAT 1.2 02/05/2024 06:41 AM CREAT 1.1 02/01/2024 06:35 AM CREAT 0.9 01/29/2024 06:23 AM CREAT 1.0 01/27/2024 04:55 AM CREAT 1.0 09/16/2020 10:25 AM CREAT 0.9 09/13/2020 05:39 AM CREAT 0.8 09/12/2020 05:34 AM CREAT 0.9 09/11/2020 11:58 AM CREAT 1.0 05/11/2020 09:17 AM ANTIMICROBIALS GIVEN (last 28 hours) None Wt Readings from Last 1 Encounters: 01/27/24 107.7 kg (237 lb 6.4 oz) Levels to date: Lab Results Component Value Date/Time VANCORANDOM 24.1 02/12/2024 06:14 AM VANCORANDOM 18.7 02/08/2024 04:27 AM VANCORANDOM 21.9 02/01/2024 06:35 AM Assessment and Plan: Analysis of the most recent level(s) using RedeemiaRX gives the following patient-specific pharmacokinetic parameters: CL: 1.38 L/hr V: 70.4 L T1/2: 36.5 hours Using these values, the current regimen of Vancomycin 1000 mg IV every 24 hours is predicted to result in a steady-state trough of 24.3 mg/L and AUC24 of 715 mg/L.hr. 02/08/24 Reviewed labs from 02/12/24 -- AUC above goal and Scr increased Discussed plan of care with KATLYN Bailey maintenance service supervisor HOLD further vancomycin doses and recheck labs on Monday02/16/24 BMP, CBC w/diff, vancomycin random ID [facility] will review Monday02/16/24 afternoon after labs result Further vancomycin dosing dependant on repeat labs Contact info for questions/concerns: [facility] Infectious Disease [facility] Pharmacist at [phone] Carla Gray RPh [facility] Clinical Pharmacist [facility] 02/14/2024, 8:19 AM documented in this encounter Plan of Treatment Upcoming Encounters Date Type Department Care Team ([facility] st Contact Info) Description 03/04/2024 5:20 PM EDT Anticoagulation [facility] Clinical Pharmacy Services, Sandra Gómez [address] [place] [address] [place] [address] [facility] [place] [address] 03/18/2024 9:40 AM EDT Office Visit Wound Care, [address] [address] Hermes Noble MD [address] [place] [address] 04/02/2024 9:40 AM EDT Office Visit Infectious Disease, [address] [phone] Rio Chun DO [address] [place] [address] 04/03/2024 1:30 PM EDT Office Visit Otolaryngology/Head & Neck/Facial Plastic Surgery [address] [place] [address] Gurvinder Garcia MD [address] [place] [address] 06/06/2024 9:30 AM EDT Office Visit Cardiology, [address] [address] Yas Mckinnon CRNP [address] [place] [address] 07/23/2024 9:30 AM EST Office Visit Radiation Oncology, [facility] [address] [place] [address] Eros Faust MD [address] [place] [address] Scheduled Orders Name Type Priority Associated Diagnoses Orde r Schedule BASIC METABOLIC PANEL Lab STAT Encounter for therapeutic drug level monitoring MRSA (methicillin resistant Staphylococcus aureus) infection Ordered: 02/14/2024 Health Maintenance Due Date Last Done Comments Albumin/Creatinine Ratio 1963 Hepatitis C Screening 1963 Zoster Vaccines (2 of 3) 06/26/2014 05/01/2014 *SPIROMETRY ONCE FOR ASTHMA-ADULT 07/14/2022 COVID-19 Vaccine ( - 2022- season) 2023 06/01/2023, 06/01/2023, 06/09/2022, Additional history exists Influenza Vaccine (FLU shot) (#1) 2024 05/30/2023, 05/30/2023, 05/18/2022, Additional history exists Depression Screening 09/18/2024 09/18/2023 GFR 03/04/2025 03/04/2024, 02/18, 02/21/2024, Additional history exists DTaP,Tdap,and Td Vaccines (2 [...] this encounter Medical Devices Implanted Type Area Perioperative Nurse Device Identifier Shelf Expiration Date Model / Serial / Lot Connector Nerve 2mm 15mm - [id number] Implanted:Qty : 1 on 04/27/2023 by Dudley Hinojosa MD at [place] [facility] Left: Face [employer] [id number] 12/24/2024 [id number] / / [id number] Alloderm 4x7 Thin 0.8-1.2 (28 Units) - [id number] - [id number] Implanted:Qty : 28 on 04/27/2023 by Dudley Hinojosa MD at OR [facility] Left: Face ABBVIE 12/18/2024 [id number] / [id number] / [id number] Sheeting Monisha 2x3in X.020in - [id number] Implanted:Qty : 1 on 04/27/2023 by Dudley Hinojosa MD at [place] [facility] Left: Ear [employer]IED BIOM[employer] 09/25/2024- / / [id number] Sheeting Monisha 2x3 In X.005in - [id number] Implanted:Qty : 1 on 12/12/2023 by Gurvinder Garcia MD at OR [facility] Left: Ear [employer]IED BIOM[employer] 04/05/2026- / / [id number] Cath Pwr Picc Solo Inj 4f - [id number] Implanted:Qty : 1 on 01/26/2024 at [facility] CR BARD : ACCESS SYSTEMS [id number] 06/20/2025 [id number] / / [id number] documented as of this encounter Visit Diagnoses Diagnosis Encounter for therapeutic drug level monitoring- Primary Encounter for therapeutic drug monitoring MRSA (methicillin resistant Staphylococcus aureus) infection Methicillin resistant Staphylococcus aureus in conditions classified elsewhere and of unspecified site 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 documented as of this encounter Advance Directives Documents on File Type Date Recorded 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
--- OUTSIDE RECORDS SUMMARY | 2024-04-25 23:47 | External Medical Summary ---
Author Name Unknown Address Unknown Organization K1F:LABORATORY [facility] - [address] [address] Laboratory Report Ordering Provider Test Date Status SENG GARCIA 03/11/2024 06:52:00 Final Warfarin Therapy
INR: 2 .0-3.0 conventional anticoagulation
INR: 2.5- 3.5 high intensity anticoagulation Observation Date Value Abnormality Reference (Units ) Status PT 03/11/2024 06:52:00 27.9 Above high normal 11 .6-15.2 (seconds) Final INR 03/11/2024 06:52:00 2.6 Above high normal 0. 8-1.2 Final Performing Location LABORATORY [facility] - [address] [address]
--- OUTSIDE RECORDS SUMMARY | 2024-04-25 23:47 | External Medical Summary | Summary of Care ---
Author Name Unknown Organization [facility] Address [address] [place] [address] Phone [phone] Care Team Providers Care Slide Fastener Repairer Name Role Phone Jad Boone MD Primary Care Provider Reason for Visit * Reason Onset Date Comments Appointment 03/07/2024 Encounter Details Date Type Department Care Team (Late st Contact Info) Description 03/07/2024 Telephone Otolaryngology/Head & Neck/Facial Plastic Surgery [address] [place], [place] [phone] Gurvinder Garcia MD [address] [place] [address] Appointment Allergies Active Allergy Reactions Criticality Noted Date Comments Bee Venom Hives High 03/14/2017 documented as of this encounter (statuses as of 03/07/2024) Medications Medication Sig Dispensed Refills Start Date [...] g 02/21/2024 Active Vitamin D3 1.25 MG (20935 UT) Oral Capsule Take 1 Capsule by mouth once a week. Every Monday 12 Capsule 02/21/2024 Active DAPTOmycin IV IV (AMBULATORY) Administer 750 mg intravenously every other day for 15 days. 5.25 g 02/21/2024 4 Active meropenem IV IV (AMBULATORY) Administer 500 mg intravenously in the morning and 500 mg at noon and 500 mg before bedtime. Do all this for 15 days. 22.5 g 02/21/2024 4 Active oxyCODONE HCl 5 MG Oral Capsule (Oxy IR) Take 1 Capsule by mouth every 6 hours as needed for Pain, Moderate or Pain, Severe. 10 Tablet 02/21/2024 Active documented as of this encounter (statuses as of 03/07/2024) Active Problems Problem Noted Date Diagnosed Date [...] fibrillation) 10/18/2018 Coronary artery disease invo lving [place] coronary artery without angina pectoris 01/07/2015 intermediate [...] as of this encounter (statuses as of 03/07/2024) Resolved Problems Problem Noted Date Diagnosed Date [...] 04/02/2022 2 Acute blood loss anemia 04/02/2022 03/2 03/2023 [...] as of this encounter (statuses as of 03/07/2024) Immunizations Name Administration Dates Next Due COVID-19 [...] Miscellaneous Notes * Telephone Encounter - Ashlee Leslie OSA - 03/07/2024 8:34 AM EDT [facility] appointments- sujata did not want to travel back to [facility] anymore for appointment but after speaking with him he was agreeable to appointment but she will update us after his wound care appointment on the 03/18. documented in this encounter Plan of Treatment Upcoming Encounters Date Type Department Care Team (Late st Contact Info) Description 03/11/2024 5:20 PM EDT Anticoagulation Centralized Clinical Pharmacy Services, [facility] Dalia [address] [place] [address] [place] [address] [place] [address] 03/18/2024 9:40 AM EDT Office Visit Wound Care, [address] [facility] [address] Hermes Noble MD [address] [place] [phone] 04/02/2024 9:40 AM EDT Office Visit Infectious Disease, [address] [place] [phone] Rio Chun, DO [address] [place] [address] 04/03/2024 1:30 PM EDT Office Visit Otolaryngology/Head & Neck/Facial Plastic Surgery [address] [place] [address] Gurvinder Garcia MD [address] [place] [address] 06/06/2024 9:30 AM EDT Office Visit Cardiology, [place] [address] [place] [address] Yas Mckinnon CRNP [address] [place], [place] [phone] 07/23/2024 9:30 AM EST Office Visit Radiation Oncology, [facility] [address] [place], [place] [phone] IovoliKo MD [address] [place] [phone] Health Maintenance Due Date Last Done Comments [...] this encounter Medical Devices Implanted Type Area Girls Swimming Coach Device Identifier Shelf Expiration Date Model / Serial / Lot Connector Nerve 2mm 15mm - [id number] Implanted:Qty : 1 on 04/27/2023 by Dudley Hinojosa MD at [place] [facility] Left: Face [employer] [id number] 12/24/2024 [id number] / / [id number] Alloderm 4x7 Thin 0.8-1.2 (28 Units) - [id number] - [id number] Implanted:Qty : 28 on 04/27/2023 by Dudley Hinojosa MD at OR [facility] Left: Face ABBVIE 12/18/2024 [id number] / [id number] / [id number] Sheeting Monisha 2x3in X.020in - [id number] Implanted:Qty : 1 on 04/27/2023 by Dudley Hinojosa MD at OR [facility] Left: Ear [employer]IED [employer] 09/25/2024-20 / / [id number] Sheeting Monisha 2x3 In X.005in - [id number] Implanted:Qty : 1 on 12/12/2023 by Gurvinder Garcia MD at OR [facility] Left: Ear [employer]IED BI[employer] 04/05/2026-05 / / [id number] Cath Pwr Picc Solo Inj 4f - [id number] Implanted:Qty : 1 on 01/26/2024 at [facility] CR BARD : ACCESS SYSTEMS [id number] 06/20/2025 [id number] / / [id number] documented as of this encounter Additional Health Concerns Infection Onset Date Last Indicated 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 01/24/2024 documented as of this encounter Advance Directives Documents on File Type Date Recorded Patient Server Assistant Expl anation POLST 02/16/2024 signed on 12/17 [place] ORDERS FOR LIFE-SUSTAINING TREATMENT POLST 04/26/2023 [place] [...] Agents on File Name Relationship Healthcare Agent [facility] Communication [facility] Adult Child Power of Steam Hoist Operator Care Teams Slide Fastener Repairer Relationship Specialty Start Date End Date Jad Boone MD [facility] [place] [address] PCP - General Family Medicine 09/20/23 documented as of this encounter
--- OUTSIDE RECORDS SUMMARY | 2024-04-25 23:47 | External Medical Summary ---
Author Name Unknown Address Unknown Organization K1F:LABORATORY [facility] - [address] [place] [address] Laboratory Report Ordering Provider Test Date Status SENG GARCIA 03/13/2024 06:12:00 Final Observation Date Value Abnormality Reference (Units ) Status WBC, Total 03/13/2024 06:12:00 10.19 4.00-10.80 (K/uL) Final RBC 03/13/2024 06:12:00 3.34 4.50-5.25 (M/uL) Final Hemoglobin 03/13/2024 06:12:00 9.0 Below low normal 14.0-16.8 (g/dL) Final HCT 03/13/2024 06:12:00 30.1 Below low normal 40.0-48.4 (%) Final MCV 03/13/2024 06:12:00 90.1 82.0-99.5 (fL) Final MCH 03/13/2024 06:12:00 26.9 27.0-34.0 (pg) Final MCHC 03/13/2024 06:12:00 29.9 32.0-36.0 (g/dL) Final RDW 03/13/2024 06:12:00 17.4 11.5-15.5 (%) Final Platelets 03/13/2024 06:12:00 138 Below low normal 140-400 (K/uL) Final MPV 03/13/2024 06:12:00 11.5 6.6-11.1 (fL) Final Nucleated erythrocytes/100 leukocytes [Ratio] in Blood by Automated count 03/13/2024 06:12:00 0 <=0 (/100 WBCs) Final Performing Location LABORATORY [facility] - [address] [place] [address]
--- OUTSIDE RECORDS SUMMARY | 2024-04-25 23:47 | External Medical Summary ---
Author Name Unknown Address Unknown Organization K1F:LABORATORY [facility] - [address] [place] [address] Laboratory Report Ordering Provider Test Date Status SENG GARCIA 03/18/2024 06:18:00 Final Observation Date Value Abnormality Reference (Units ) Status BUN 03/18/2024 06:18:00 29 Above high normal 6-20 (mg/dL) Final Creatinine 03/18/2024 06:18:00 1.5 Above high normal 0.6-1.2 (mg/dL) Final Glomerular filtration rate/1.73 sq M.predicted [Volume Rate/Area] in Serum, Plasma or Blood by Creatinine-based formula (CKD-EPI) 03/18/2024 06:18:00 47 Below low normal >=60 (mL/min) Final eGFR is calculated based on the CKD-EPI 2020 equation. Sodium 03/18/2024 06:18:00 142 135-146 (m mol/L) Final Potassium 03/18/2024 06:18:00 4.2 3.5-5.1 (m mol/L) Final Cl 03/18/2024 06:18:00 105 98-107 (mm ol/L) Final CO2 03/18/2024 06:18:00 27 22-32 (mmo l/L) Final Anion gap 03/18/2024 06:18:00 10 7-15 (mmol /L) Final Glucose 03/18/2024 06:18:00 82 70-120 (mg /dL) Final Calcium 03/18/2024 06:18:00 8.9 8.4-10.2 ( mg/dL) Final Performing Location LABORATORY [facility] - [address] [place] [address]
--- OUTSIDE RECORDS SUMMARY | 2024-04-25 23:47 | External Medical Summary ---
Author Name Unknown Address Unknown Organization K1F:LABORATORY [facility] - [address] [place] [address] Laboratory Report Ordering Provider Test Date Status SENG GARCIA 03/22/2024 06:41:00 Final Warfarin Therapy
INR: 2 .0-3.0 conventional anticoagulation
INR: 2.5- 3.5 high intensity anticoagulation Observation Date Value Abnormality Reference (Units ) Status PT 03/22/2024 06:41:00 28.9 Above high normal 11 .6-15.2 (seconds) Final INR 03/22/2024 06:41:00 2.7 Above high normal 0. 8-1.2 Final Performing Location LABORATORY [facility] - [address] [place] [address]
--- OUTSIDE RECORDS SUMMARY | 2024-04-25 23:47 | External Medical Summary ---
Author Name Unknown Address Unknown Organization K1F:LABORATORY [facility] - [address] [place] [address] Laboratory Report Ordering Provider Test Date Status SENG GARCIA 03/13/2024 06:12:00 Final Observation Date Value Abnormality Reference (Units ) Status BUN 03/13/2024 06:12:00 33 Above high normal 6-20 (mg/dL) Final Creatinine 03/13/2024 06:12:00 1.7 Above high normal 0.6-1.2 (mg/dL) Final Glomerular filtration rate/1.73 sq M.predicted [Volume Rate/Area] in Serum, Plasma or Blood by Creatinine-based formula (CKD-EPI) 03/13/2024 06:12:00 42 Below low normal >=60 (mL/min) Final eGFR is calculated based on the CKD-EPI 2020 equation. Sodium 03/13/2024 06:12:00 142 135-146 (m mol/L) Final Potassium 03/13/2024 06:12:00 4.6 3.5-5.1 (m mol/L) Final Cl 03/13/2024 06:12:00 105 98-107 (mm ol/L) Final CO2 03/13/2024 06:12:00 25 22-32 (mmo l/L) Final Anion gap 03/13/2024 06:12:00 12 7-15 (mmol /L) Final Glucose 03/13/2024 06:12:00 83 70-120 (mg /dL) Final Calcium 03/13/2024 06:12:00 8.9 8.4-10.2 ( mg/dL) Final Performing Location LABORATORY [facility] - [address] [place] [address]
--- OUTSIDE RECORDS SUMMARY | 2024-04-25 23:47 | External Medical Summary ---
Author Name Unknown Address Unknown Organization K1F:LABORATORY [facility] - [address] [place] [address] Laboratory Report Ordering Provider Test Date Status SENG GARCIA 03/18/2024 06:18:00 Final Warfarin Therapy
INR: 2 .0-3.0 conventional anticoagulation
INR: 2.5- 3.5 high intensity anticoagulation Observation Date Value Abnormality Reference (Units ) Status PT 03/18/2024 06:18:00 26.1 Above high normal 11 .6-15.2 (seconds) Final INR 03/18/2024 06:18:00 2.4 Above high normal 0. 8-1.2 Final Performing Location LABORATORY [facility] - [address] [place] [address]
--- OUTSIDE RECORDS SUMMARY | 2024-04-25 23:47 | External Medical Summary | Summary of Care ---
Author Name Unknown Organization [facility] Address [address] [facility] [place] [address] Phone [phone] Care Team Providers Care Sales Operations Analyst Name Role Phone Jad Boone MD Primary Care Provider Reason for Visit * Reason Comments Dosage Adjustment Via Phone (anticoag Cl inic) Encounter Details Date Type Department Care Team (Late st Contact Info) Description 03/04/2024 5:20 PM EDT Anticoagulation Centralized Clinical Pharmacy Services, Sandra G[facility]mez [address] [place] [place] [address] [place] [address] [facility], [address] [place] [address] PAF (paroxysmal atrial fibrillation) ([facility])* Allergies Active Allergy Reactions Criticality [...] diastolic CHF (congestive heart failure) ([facility]) Take 1 Tablet by mouth [...] g 02/21/2024 Active Vitamin D3 1.25 MG (60745 UT) Oral Capsule Take 1 Capsule by [...] this for 15 days. 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 PT/INR results, Coumadin dose instructions, and next PT/INR date communicated as noted by Pharmacist: Yes LAMAR EARLY CPhT 03/04/2024, 11:10 AM * Alyson Salinas RPh - 03/04/2024 10:35 AM EDT Coumadin Clinic (region specific) Objective Current Warfarin Dose As of 03/04/2024 Warfarin maintenance plan: 10 mg (1 mg x 10) every Mon, Wed; 7.5 mg (1 mg x 7.5) all other days INR Result As of 03/04/2024 INR goal: 2.0-3.0 INR used for dosin.8 (03/04/2024) Assessment & Plan Warfarin Plan As of 03/04/2024 Full warfarin instructions: 10 mg every Mon, Wed; 7.5 mg all other days No change documented: Alyson Salinas [facility] Next INR check: 03/11/2024 Repeat PT/INR in 1 week(s) Weekly dose: not changed Additional Dosing Information: Description Call patient while at [facility] AND fax Facility at [phone] Cefepime and Vanco until 03/07/24 (getting weekly labs)- Changed to Dapto + Meropenem 02/15/24 pt started multivitamin around beginning october Tech to contact patient with dose instructions as noted. Alyson Salinas RPh 03/04/2024, 10:38 AM documented in this encounter Plan of Treatment Upcoming Encounters Date Type Department Care Team (Late st Contact Info) Description 03/18/2024 9:40 AM EDT Office Visit Wound Care, [address] [address] Hermes Noble MD [address] [place] [address] 04/02/2024 9:40 AM EDT Office Visit Infectious Disease, [address] [phone] Rio Chun DO [address] [place] [address] 04/03/2024 1:30 PM EDT Office Visit Otolaryngology/Head & Neck/Facial Plastic Surgery [address] [place] [address] Gurvinder Garcia MD [address] [place], [place] [phone] 06/06/2024 9:30 AM EDT Office Visit Cardiology, [address] [address] Yas Mckinnon CRNP [address] [place] [address] 07/23/2024 9:30 AM EST Office Visit Radiation Oncology, [facility] [address] [place] [address] Eros Faust MD [address] [place], [place] [phone] Health Maintenance Due Date Last Done Comments [...] this encounter Medical Devices Implanted Type Area [place] Nurse Device Identifier Shelf Expiration Date Model / Serial / Lot Connector Nerve 2mm 15mm - [id number] Implanted:Qty : 1 on 04/27/2023 by Dudley Hinojosa MD at [place] [facility] Left: Face [employer] [id number] 12/24/2024 [id number] / / [id number] Alloderm 4x7 Thin 0.8-1.2 (28 Units) - [id number] - [id number] Implanted:Qty : 28 on 04/27/2023 by Dudley Hinojosa MD at [place] [facility] Left: Face ABBVIE 12/18/2024 [id number] / [id number] / [id number] Sheeting Monisha 2x3in X.020in - [id number] Implanted:Qty : 1 on 04/27/2023 by Dudley Hinojosa MD at [place] [facility] Left: Ear [employer]IED [employer] 09/25/2024700-20 / / [id number] Sheeting Monisha 2x3 In X.005in - [id number] Implanted:Qty : 1 on 12/12/2023 by Gurvinder Garcia MD at [place] [facility] Left: Ear [employer] 04/05/2026700-05 / / [id number] Cath Pwr Picc Solo Inj 4f - [id number] Implanted:Qty : 1 on 01/26/2024 at [facility] CR BARD : [employer]ESS SYSTEM[employer] [id number] 06/20/2025 [id number] / / [id number] documented as of this encounter Visit Diagnoses Diagnosis PAF (paroxysmal atrial fibrillation) (HCC)- Primary Atrial fibrillation 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 documented as of this encounter Advance Directives Documents on File Type Date Recorded Patient Annual Giving Officer Expl anation POLST 02/16/2024 signed on 12/17 [place] ORDERS FOR LIFE-SUSTAINING TREATMENT POLST 04/26/2023 [place] DERS FOR LIFE-SUSTAINING TREATMENT * Full [...] Communication Brody Varela Adult Child Power of Syrup Blender Care Teams Sales Operations Analyst Relationship Specialty Start Date End Date Jad Boone MD [address] [facility] [place] [address] PCP - General Family Medicine 09/20/23 documented as of this encounter
--- OUTSIDE RECORDS SUMMARY | 2024-04-25 23:47 | External Medical Summary ---
Author Name Unknown Address Unknown Organization K1F:LABORATORY [facility] - [address] [place] [address] Laboratory Report Ordering Provider Test Date Status SENG GARCIA 03/04/2024 06:35:00 Final Warfarin Therapy
INR: 2 .0-3.0 conventional anticoagulation
INR: 2.5- 3.5 high intensity anticoagulation Observation Date Value Abnormality Reference (Units ) Status PT 03/04/2024 06:35:00 29.7 Above high normal 11 .6-15.2 (seconds) Final INR 03/04/2024 06:35:00 2.8 Above high normal 0. 8-1.2 Final Performing Location LABORATORY [facility] - [address] [place] [address]
--- OUTSIDE RECORDS SUMMARY | 2024-04-25 23:47 | External Medical Summary | Summary of Care ---
Author Name Unknown Organization [facility] Address [address] [place] [address] Phone [phone] Care Team Providers Care E Commerce Analyst Name Role Phone Jad Boone MD Primary Care Provider Reason for Visit * Reason Onset Date Comments Appointment 03/18/2024 Encounter Details Date Type Department Care Team (Late st Contact Info) Description 03/18/2024 Telephone Wound Care, [facility] [address] [place], [place] [phone] Services, Scheduling [address] [place] [address] Appointment Allergies Active Allergy Reactions Criticality Noted Date Comments Bee Venom Hives High 03/14/2017 documented as of this encounter (statuses as of 03/18/2024) Medications Medication Sig Dispensed Refills Start Date [...] by mouth every evening. 30 Tablet 02/21/2024 4 Active Chlorhexidine Gluconate Cloth 2 % [...] g 02/21/2024 Active Vitamin D3 1.25 MG (75238 UT) Oral Capsule Take 1 Capsule by mouth once a week. Every Monday 12 Capsule 02/21/2024 Active oxyCODONE HCl 5 MG Oral Capsule (Oxy IR) Take 1 Capsule by mouth every 6 hours as needed for Pain, Moderate or Pain, Severe. 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 0 05/01/2014 Overview: ICD-10 update of inactive term Heart failure, systolic, due to CAD 08/28/2012 Overview: ECHO 2011 - Segmental wall abnormality, severe hypokinesis of anterior septum, anterior wall, apex, distal inferior septum, distal inferior wall, and distal posterior wall EF 33% Mass of left parotid gland documented as of this encounter (statuses as of 03/18/2024) Resolved Problems Problem Noted Date Diagnosed Date [...] as of this encounter (statuses as of 03/18/2024) Immunizations Name Administration Dates Next Due COVID-19 [...] encounter Miscellaneous Notes * Telephone Encounter - Mariah Mcadams OSA - 03/18/2024 7:51 AM EDT Called [facility] and made them aware that the patients appointment for today needed to be rescheduled and I would have to CB with an appointment. documented in this encounter Plan of Treatment Upcoming Encounters Date Type Department Care Team (Late st Contact Info) Description 03/25/2024 5:20 PM EDT Anticoagulation Centralized Clinical Pharmacy Services, Sandra G[facility]mez [address] [place] [address] [place] [address] [facility], [address] [place] [address] 04/02/2024 9:40 AM EDT Office Visit Infectious Disease, [address] [phone] Rio Chun DO [address] [place] [address] 04/03/2024 1:30 PM EDT Office Visit Otolaryngology/Head & Neck/Facial Plastic Surgery [address] [place] [address] Gurvinder Garcia MD [address] [place] [address] 06/06/2024 9:30 AM EDT Office Visit Cardiology, [address] [phone] Yas Mckinnon CRNP [address] [place], [place] [address] 07/23/2024 9:30 AM EST Office Visit Radiation Oncology, [facility] [address] [place] [address] Ko Grace MD [address] [place] [address] Health Maintenance Due Date Last Done Comments Albumin/Creatinine Ratio 1963 Hepatitis C Screening 1963 Zoster Vaccines (2 of 3) 06/26/2014 05/01/2014 *SPIROMETRY ONCE FOR ASTHMA-ADULT 07/14/2022 COVID-19 Vaccine (2022- season) 2023 06/01/2023, 06/01/2023, 06/09/2022, Additional history exists Influenza Vaccine (FLU shot) (#1) 2024 05/30/2023, 05/30/2023, 05/18/2022, Additional history exists Depression Screening 09/18/2024 09/18/2023 GFR 03/13/2025 03/13/2024, 02/18, 03/04/2024, Additional history exists DTaP,Tdap,and Td Vaccines (2 [...] this encounter Medical Devices Implanted Type Area Military Professional Device Identifier Shelf Expiration Date Model / Serial / Lot Connector Nerve 2mm 15mm - [id number] Implanted:Qty : 1 on 04/27/2023 by Dudley Hinojosa MD at [place] [facility] Left: Face [employer] [id number] 12/24/2024 [id number] / / [id number] Alloderm 4x7 Thin 0.8-1.2 (28 Units) - [id number] - [id number] Implanted:Qty : 28 on 04/27/2023 by Dudley Hinojosa MD at OR [facility] Left: Face ABBVIE 12/18/2024 [id number] / [id number] / [id number] Sheeting Monisha 2x3in X.020in - [id number] Implanted:Qty : 1 on 04/27/2023 by Dudley Hinojosa MD at OR [facility] Left: Ear [employer]IED [employer] 09/25/2024- / / [id number] Sheeting Monisha 2x3 In X.005in - [id number] Implanted:Qty : 1 on 12/12/2023 by Gurvinder Garcia MD at OR [facility] Left: Ear [employer] 04/05/2026- / / [id number] Cath Pwr Picc Solo Inj 4f - [id number] Implanted:Qty : 1 on 01/26/2024 at [facility] CR BARD : [employer]ESS SYSTEM[employer] [id number] 06/20/2025 [id number] / / [id number] documented as of this encounter Additional Health Concerns Infection Onset Date Last Indicated 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 01/24/2024 documented as of this encounter Advance Directives Documents on File Type Date Recorded Patient Puppet Developer Expl anation POLST 02/16/2024 signed on [...] Communication Brody Avery Adult Child Power of Leases And Land Supervisor Care Teams E Commerce Analyst Relationship Specialty Start Date End Date Jad Boone MD [address] [facility] [address] [place] [address] PCP - General Family Medicine 09/20/23 documented as of this encounter
--- OUTSIDE RECORDS SUMMARY | 2024-04-25 23:47 | External Medical Summary ---
Author Name Unknown Address Unknown Organization K1F:LABORATORY [facility] - [address] [facility]. [place] [address] Laboratory Report Ordering Provider Test Date Status SENG GARCIA 03/18/2024 06:18:00 Final Observation Date Value Abnormality Reference (Units ) Status SYNC LEUKOCYTES IN BLOOD BY AUTOMATED COUNT 03/18/2024 06:18:00 8.18 4.00-10.80 (K/uL) Final Segs 03/18/2024 06:18:00 75.5 Above high normal 40.0-75.0 (%) Final Lymphs % 03/18/2024 06:18:00 8.4 Below low normal 18.0-42.0 (%) Final Monos 03/18/2024 06:18:00 9.8 1.0-11.0 (%) Final Eosinophils 03/18/2024 06:18:00 5.7 0.0-6.0 (%) Final Basos 03/18/2024 06:18:00 0.4 0.0-2.0 (%) Final Immature Granulocyte, Percent 03/18/2024 06:18:00 0.2 0.0-2.0 (%) Final Absolute Segs 03/18/2024 06:18:00 6.17 1.80-7.70 (K/uL) Final Lymphs, absolute 03/18/2024 06:18:00 0.69 Below low normal 1.00-4.80 (K/ul) Final Monos, Abs 03/18/2024 06:18:00 0.80 0.00-1.10 (K/uL) Final Eos, Abs 03/18/2024 06:18:00 0.47 0.00-0.70 (K/uL) Final Basos, Abs 03/18/2024 06:18:00 0.03 0.00-0.20 (K/uL) Final Immature Granulocytes, Number 03/18/2024 06:18:00 0.02 0.00-0.20 (K/uL) Final Performing Location LABORATORY [facility] - [address] [place], [place] [address]. [place] [address]
--- OUTSIDE RECORDS SUMMARY | 2024-04-25 23:47 | External Medical Summary | Summary of Care ---
Author Name Unknown Organization [facility] Address [address] [place] [address] Phone [phone] Care Team Providers Care Risk Assessment Analyst Name Role Phone Jad Boone MD Primary Care Provider Encounter Details Date Type Department Care Team (Late st Contact Info) Description 03/07/2024 Telephone Infectious Disease, [place] [address] [place] [address] Loreta Luna MD [address] [place] [address] Allergies Active Allergy Reactions Criticality Noted Date [...] g 02/21/2024 Active Vitamin D3 1.25 MG (26875 UT) Oral Capsule Take 1 Capsule by mouth once a week. Every Monday 12 Capsule 02/21/2024 Active DAPTOmycin IV IV (AMBULATORY) Administer 750 mg intravenously every other day for 15 days. 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 I verified EOT for IV abx, PICC d/c and stopping weeklylabs per OPAT note. Susan Palomino LPN Nurse Navigator ID' documented in this encounter Plan of Treatment Upcoming Encounters Date Type Department Care Team (Late st Contact Info) Description 03/11/2024 5:20 PM EDT Anticoagulation Centralized Clinical Pharmacy Services, [address] [place] [address] [place] [address] 03/18/2024 9:40 AM EDT Office Visit Wound Care, [address] [address] Hermes Noble MD [address] [place] [address] 04/02/2024 9:40 AM EDT Office Visit Infectious Disease, [address] [phone] Rio Chun, DO [address] [place] [address] 04/03/2024 1:30 PM EDT Office Visit Otolaryngology/Head & Neck/Facial Plastic Surgery [address] [place] [address] Gurvinder Garcia MD [address] [place] [address] 06/06/2024 9:30 AM EDT Office Visit Cardiology, [place] [address] [place] [address] Yas Mckinnon CRNP [address] [place], [place] [phone] 07/23/2024 9:30 AM EST Office Visit Radiation Oncology, [facility] [address] [place], [place] [phone] IovoliKo MD [address] [place] [address] Health Maintenance Due Date Last [...] this encounter Medical Devices Implanted Type Area Software Systems Analyst Device Identifier Shelf Expiration Date Model / Serial / Lot Connector Nerve 2mm 15mm - [id number] Implanted:Qty : 1 on 04/27/2023 by Dudley Hinojosa [place] [facility] [place]: Face [employer] [id number] 12/24/2024 [id number] / / [id number] Alloderm 4x7 Thin 0.8-1.2 (28 Units) - [id number] - [id number] Implanted:Qty : 28 on 04/27/2023 by Dudley Hinojosa MD [place] [facility] [place]: Face ABBVIE 12/18/2024 [id number] / [id number] / [id number] Sheeting Monisha 2x3in X.020in - [id number] Implanted:Qty : 1 on 04/27/2023 by Dudley Hinojosa MD [place] [facility] [place]: Ear ALLIED BIOM[employer] 09/25/2024 / / [id number] Sheeting Monisha 2x3 In X.005in - [id number] Implanted:Qty : 1 on 12/12/2023 by Gurvinder Garcia MD at [place] [facility] [place]: Ear ALLIED BIOM[employer] 04/05/2026- / / [id number] Cath Pwr Picc Solo Inj 4f - [id number] Implanted:Qty : 1 on 01/26/2024 at [facility] CR BARD : ACCESS SYSTEMS [id number] 06/20/2025 [id number] / / [id number] documented as of this encounter Additional Health Concerns Infection Onset Date Last Indicated 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 01/24/2024 documented as of this encounter Advance Directives Documents on File Type Date Recorded Patient Veterinary Practice Manager Expl anation POLST 02/16/2024 signed on 12/17 [place] ORDERS FOR LIFE-SUSTAINING TREATMENT POLST 04/26/2023 [place] OR [facility] FOR LIFE-SUSTAINING TREATMENT * Full Code (Latest [...] Agents on File Name Relationship Healthcare Agent [facility] p Communication [facility] Adult Child Power of Low Vision Therapist Care Teams Risk Assessment Analyst Relationship Specialty Start Date End Date Jad Boone MD [address] [facility] [address] [place] [address] PCP - General Family Medicine 09/20/23 documented as of this encounter
--- OUTSIDE RECORDS SUMMARY | 2024-04-25 23:47 | External Medical Summary ---
Author Name Unknown Address Unknown Organization K1F:[facility] - [address] [facility]. [place] [address] Laboratory Report Ordering Provider Test Date Status SENG GARCIA 03/06/2024 06:04:00 Final Observation Date Value Abnormality Reference (Units ) Status SYNC LEUKOCYTES IN BLOOD BY AUTOMATED COUNT 03/06/2024 06:04:00 7.11 4.00-10.80 (K/uL) Final Segs 03/06/2024 06:04:00 71.2 40.0-75.0 (%) Final Lymphs % 03/06/2024 06:04:00 9.4 Below low normal 18.0-42.0 (%) Final Monos 03/06/2024 06:04:00 10.3 1.0-11.0 (%) Final Eosinophils 03/06/2024 06:04:00 8.2 Above high normal 0.0-6.0 (%) Final Basos 03/06/2024 06:04:00 0.6 0.0-2.0 (%) Final Immature Granulocyte, Percent 03/06/2024 06:04:00 0.3 0.0-2.0 (%) Final Absolute Segs 03/06/2024 06:04:00 5.07 1.80-7.70 (K/uL) Final Lymphs, absolute 03/06/2024 06:04:00 0.67 Below low normal 1.00-4.80 (K/ul) Final Monos, Abs 03/06/2024 06:04:00 0.73 0.00-1.10 (K/uL) Final Eos, Abs 03/06/2024 06:04:00 0.58 0.00-0.70 (K/uL) Final Basos, Abs 03/06/2024 06:04:00 0.04 0.00-0.20 (K/uL) Final Immature Granulocytes, Number 03/06/2024 06:04:00 0.02 0.00-0.20 (K/uL) Final Performing Location [facility] - [address] [place], [place] [address]. [place] [address]
--- OUTSIDE RECORDS SUMMARY | 2024-04-25 23:47 | External Medical Summary | Summary of Care ---
Author Name Unknown Organization [facility] Address [address] [place] [address] Phone [phone] Care Team Providers Care Laminator Preforms Name Role Phone Jad Boone MD Primary Care Provider Reason for Visit * Reason Onset Date Comments Appointment Canceled 03/18/2024 Encounter Details Date Type Department Care Team (Late st Contact Info) Description 03/18/2024 Telephone [place] [address] [place] [phone] Jad Boone MD [facility] [address] [place] [phone] Appointment Canceled Allergies Active Allergy Reactions Criticality Noted Date [...] g 02/21/2024 Active Vitamin D3 1.25 MG (55443 UT) Oral Capsule Take 1 Capsule by [...] fibrillation) 10/18/2018 Coronary artery disease invo lving [place] coronary artery without angina pectoris 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 (Household - for [...] encounter Miscellaneous Notes * Telephone Encounter - Bruno Barron OSA - 03/18/2024 9:38 AM EDT Spoke with pt agreed to time and date for appt * Telephone Encounter - Sharlene Corbin CMA - 03/18/2024 8:54 AM EDT Patient is rescheduled with Dr. Noble for 03/26/2024 @ 9:00. Please call to confirm with patient documented in this encounter Plan of Treatment Upcoming Encounters Date Type Department Care Team (Late st Contact Info) Description 03/25/2024 5:20 PM EDT Anticoagulation Centralized Clinical Pharmacy Services, [address] [place] [address] [facility], [address] [place] [address] 03/26/2024 9:00 AM EDT Office Visit Wound Care, [address] [place] [address] Hermes Noble MD [address] [facility] [place] [address] 04/02/2024 9:40 AM EDT Office Visit [address]ious Disease, [address] [address] Rio Chun, DO [address] [place] [address] 04/03/2024 1:30 PM EDT Office Visit Otolaryngology/Head & Neck/Facial Plastic Surgery [address] [place] [address] Gurvinder Garcia MD [address] [place] [address] 06/06/2024 9:30 AM EDT Office Visit Cardiology, [place] [address] [place] [address] Yas Mckinnon CRNP [address] [place] [address] 07/23/2024 9:30 AM EST Office Visit Radiation Oncology, [facility] [address] [place] [address] IovoliKo MD [address] [place] [address] Health Maintenance Due Date Last [...] this encounter Medical Devices Implanted Type Area Union Carpenter Device Identifier Shelf Expiration Date Model / Serial / Lot Connector Nerve 2mm 15mm - [id number] Implanted:Qty : 1 on 04/27/2023 by Dudley Hinojosa MD at [place] [facility] [place] Left: Face [employer] [id number] 12/24/2024 [id number] / / [id number] Alloderm 4x7 Thin 0.8-1.2 (28 Units) - [id number] - [id number] Implanted:Qty : 28 on 04/27/2023 by Dudley Hinojosa MD at [place] [facility] [place] Left: Face ABBVIE 12/18/2024 [id number] / [id number] / [id number] Sheeting Monisha 2x3in X.020in - [id number] Implanted:Qty : 1 on 04/27/2023 by Dudley Hinojosa MD at [place] [facility] [place] Left: Ear [employer]IED [employer] 09/25/2024- / / [id number] Sheeting Monisha 2x3 In X.005in - [id number] Implanted:Qty : 1 on 12/12/2023 by Gurvinder Garcia MD at [place] [facility] [place] Left: Ear [employer]IED [employer] 04/05/2026- / / [id number] Cath Pwr Picc Solo Inj 4f - [id number] Implanted:Qty : 1 on 01/26/2024 at [facility] CR BARD : ACCESS SYSTEMS [id number] 06/20/2025 [id number] / / [id number] documented as of this encounter Additional Health Concerns Infection Onset Date Last Indicated 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 01/24/2024 documented as of this encounter Advance Directives Documents on File Type Date Recorded Patient Waiter/Waitress Second Class Expl anation POLST 02/16/2024 signed on 12/17 [place] ORDERS FOR LIFE-SUSTAINING TREATMENT POLST 04/26/2023 [place] OR DERS FOR LIFE-SUSTAINING TREATMENT * Full [...] Communication Brody Avery Adult Child Power of Patient Support Partner Care Teams Laminator Preforms Relationship Specialty Start Date End Date Jad Boone MD [address] [facility] [address] [place] [address] PCP - General Family Medicine 09/20/23 documented as of this encounter
--- OUTSIDE RECORDS SUMMARY | 2024-04-25 23:47 | External Medical Summary ---
Author Name Unknown Address Unknown Organization K1F:LABORATORY [facility] - [address] [place] [address] Laboratory Report Ordering Provider Test Date Status SENG GARCIA 03/18/2024 00:00:00 Final Observation Date Value Abnormality Reference (Units) Status Source 03/18/2024 00:00:00 Semi-formed Final Clostridioides difficile toxin and BI-NAP1-027 strain DNA panel - Stool by TORREY with probe detection 03/18/2024 00:00:00 Positive for C. difficile toxin B gene DNA by PCR (Amplified Probe). Presumptive negative for C. difficile 027-NAP1-B1 strain by PCR (Amplified Probe). Abnormal Negative Final Performing Location [facility] - [address] [place] [address]
--- OUTSIDE RECORDS SUMMARY | 2024-04-25 23:47 | External Medical Summary ---
Author Name Unknown Address Unknown Organization K1F:[facility] - [address] [place] [address] Laboratory Report Ordering Provider Test Date Status SENG GARCIA 03/04/2024 06:35:00 Final Observation Date Value Abnormality Reference (Units ) Status BUN 03/04/2024 06:35:00 55 Above high normal 6-20 (mg/dL) Final Creatinine 03/04/2024 06:35:00 2.4 Above high normal 0.6-1.2 (mg/dL) Final Glomerular filtration rate/1.73 sq M.predicted [Volume Rate/Area] in Serum, Plasma or Blood by Creatinine-based formula (CKD-EPI) 03/04/2024 06:35:00 27 Below low normal >=60 (mL/min) Final eGFR is calculated based on the CKD-EPI 2020 equation Sodium 03/04/2024 06:35:00 143 135-146 (m mol/L) Final Potassium 03/04/2024 06:35:00 5.1 3.5-5.1 (m mol/L) Final Cl 03/04/2024 06:35:00 105 98-107 (mm ol/L) Final CO2 03/04/2024 06:35:00 27 22-32 (mmo l/L) Final Anion gap 03/04/2024 06:35:00 11 7-15 (mmol /L) Final Glucose 03/04/2024 06:35:00 85 70-120 (mg /dL) Final Calcium 03/04/2024 06:35:00 9.1 8.4-10.2 ( mg/dL) Final Performing Location [facility] - [address] [place] [address]
--- OUTSIDE RECORDS SUMMARY | 2024-04-25 23:47 | External Medical Summary ---
Author Name Unknown Address Unknown Organization K1F:[facility] - [address] [place] [address] Laboratory Report Ordering Provider Test Date Status SENG GARCIA 03/18/2024 06:18:00 Final Observation Date Value Abnormality Reference (Units ) Status WBC, Total 03/18/2024 06:18:00 8.18 4.00-10.80 (K/uL) Final RBC 03/18/2024 06:18:00 3.16 4.50-5.25 (M/uL) Final Hemoglobin 03/18/2024 06:18:00 8.7 Below low normal 14.0-16.8 (g/dL) Final HCT 03/18/2024 06:18:00 28.3 Below low normal 40.0-48.4 (%) Final MCV 03/18/2024 06:18:00 89.6 82.0-99.5 (fL) Final MCH 03/18/2024 06:18:00 27.5 27.0-34.0 (pg) Final MCHC 03/18/2024 06:18:00 30.7 32.0-36.0 (g/dL) Final RDW 03/18/2024 06:18:00 17.5 11.5-15.5 (%) Final Platelets 03/18/2024 06:18:00 153 140-400 (K/uL) Final MPV 03/18/2024 06:18:00 9.5 6.6-11.1 (fL) Final Nucleated erythrocytes/100 leukocytes [Ratio] in Blood by Automated count 03/18/2024 06:18:00 0 <=0 (/100 WBCs) Final Performing Location [facility] - [address] [place] [address]
--- OUTSIDE RECORDS SUMMARY | 2024-04-25 23:48 | External Medical Summary | Summary of Care ---
Author Name Unknown Organization [facility] Address [address] [place] [address] Phone [phone] Care Team Providers Care Computer Aided Design Drafter Name Role Phone Jad Boone MD Primary Care Provider Encounter Details Date Type Department Care Team (Late st Contact Info) Description 02/23/2024 Population Health External Data Unspecified Department Allergies Active Allergy Reactions Criticality Noted Date Comments Bee Venom Hives High 03/14/2017 documented as of this encounter (statuses as of 02/23/2024) Medications Medication Sig Dispensed Refills Start Date [...] g 02/21/2024 Active Vitamin D3 1.25 MG (23620 UT) Oral Capsule Take 1 Capsule by mouth once a week. 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 01/28/2024 Acute osteomyelitis of temporal bone 01/28/2024 Delayed wound healing 01/25/2024 Bilateral hand numbness 12/14/2023 Malignant neoplasm of head, 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 [...] fibrillation) 10/18/2018 Coronary artery disease invo lving [place] coronary artery without angina pectoris 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 0 05/01/2014 Overview: ICD-10 update of inactive term Heart failure, systolic, due to CAD 08/28/2012 Overview: ECHO 2011 - Segmental wall abnormality, severe hypokinesis of anterior septum, anterior wall, apex, distal inferior septum, distal inferior wall, and distal posterior wall EF 33% Mass of left parotid gland documented as of this encounter (statuses as of 02/23/2024) Resolved Problems Problem Noted Date Diagnosed Date Resolved Date Encephalopathy acute 02/15/2024 024 Ankylosing spondylitis of un specified sites in [...] as of this encounter (statuses as of 02/23/2024) Immunizations Name Administration Dates Next Due COVID-19 [...] No 10/10/2023 Does the household have a [facility] source of income? (Household - for [...] 9:40 AM EDT Office Visit Wound Care, [address] [address] Hermes Noble MD [address] [place] [address] 04/02/2024 9:40 AM EDT Office Visit Infectious Disease, [address] [phone] Rio Chun, DO [address] [place] [address] 06/06/2024 9:30 AM EDT Office Visit Cardiology, [address] [address] Yas Mckinnon CRNP [address] [place] [address] 07/23/2024 9:30 AM EST Office Visit Radiation Oncology, [facility] [address] [place] [address] Eros Faust MD [address] [place] [address] Health Maintenance Due Date Last Done Comments Albumin/Creatinine Ratio 1963 Hepatitis C Screening 1963 Zoster Vaccines (2 of 3) 06/26/2014 05/01/2014 *SPIROMETRY ONCE FOR ASTHMA-ADULT 07/14/2022 *NEPHROLOGY REFERRAL DUE TO RESISTANT HTN 09/25/2023 COVID-19 Vaccine ( season) 2023 06/01/2023, 06/01/2023, 06/09/2022, Additional history exists Influenza Vaccine (FLU shot) (#1) 2024 05/30/2023, 05/30/2023, 05/18/2022, Additional history exists Depression Screening 09/18/2024 09/18/2023 GFR 02/20/2025 02/21/2024, 07/0 09/2023, 02/19/2024, Additional history exists DTaP,Tdap,and Td Vaccines (2 [...] this encounter Medical Devices Implanted Type Area Labor Relations Worker Device Identifier Shelf Expiration Date Model / Serial / Lot Connector Nerve 2mm 15mm - [id number] Implanted:Qty : 1 on 04/27/2023 by Dudley Hinojosa MD at [place] [facility] [place] Left: Face [employer] [id number] 12/24/2024 [id number] / / [id number] Alloderm 4x7 Thin 0.8-1.2 (28 Units) - [id number] - [id number] Implanted:Qty : 28 on 04/27/2023 by Dudley Hinojosa MD at [place] [facility] [place] Left: Face ABBVIE 12/18/2024 [id number] / [id number] / [id number] Sheeting Monisha 2x3in X.020in - [id number] Implanted:Qty : 1 on 04/27/2023 by Dudley Hinojosa MD at [place] [facility] [place] Left: Ear ALLIED BIOM[employer] 09/25/2024 23-700-20 / / [id number] Sheeting Monisha 2x3 In X.005in - [id number] Implanted:Qty : 1 on 12/12/2023 by Gurvinder Garcia MD at [place] [facility] [place] Left: Ear ALLIED BIOMEDICAL 04/05/2026 23-700-05 / / [id number] Cath Pwr Picc Solo Inj 4f - [id number] Implanted:Qty : 1 on 01/26/2024 at [facility] CR BARD : ACCESS SYSTEMS [id number] 06/20/2025 [id number] / / [id number] documented as of this encounter Additional Health Concerns Infection Onset Date Last Indicated 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 01/24/2024 documented as of this encounter Advance Directives Documents on File Type Date Recorded Patient Risk Tech Expl anation POLST 02/16/2024 signed on 12/17 [...] Agents on File Name Relationship Healthcare Agent [facility] p Communication Brody Varela Adult Child Power of Fence Builder Care Teams Computer Aided Design Drafter Relationship Specialty Start Date End Date Jad Boone MD [address] [place] [address] [place] [address] PCP - General Family Medicine 09/20/23 documented as of this encounter
--- OUTSIDE RECORDS SUMMARY | 2024-04-25 23:48 | External Medical Summary ---
Author Name Unknown Address Unknown Organization [facility] [address] [facility]. [place] [address] Laboratory Report Ordering Provider Test Date Status SENG GARCIA 02/28/2024 06:30:00 Final Observation Date Value Abnormality Reference (Units ) Status SYNC LEUKOCYTES IN BLOOD BY AUTOMATED COUNT 02/28/2024 06:30:00 9.43 4.00-10.80 (K/uL) Final Segs 02/28/2024 06:30:00 76.4 Above high normal 40.0-75.0 (%) Final Lymphs % 02/28/2024 06:30:00 7.4 Below low normal 18.0-42.0 (%) Final Monos 02/28/2024 06:30:00 9.0 1.0-11.0 (%) Final Eosinophils 02/28/2024 06:30:00 6.4 Above high normal 0.0-6.0 (%) Final Basos 02/28/2024 06:30:00 0.5 0.0-2.0 (%) Final Immature Granulocyte, Percent 02/28/2024 06:30:00 0.3 0.0-2.0 (%) Final Absolute Segs 02/28/2024 06:30:00 7.20 1.80-7.70 (K/uL) Final Lymphs, absolute 02/28/2024 06:30:00 0.70 Below low normal 1.00-4.80 (K/ul) Final Monos, Abs 02/28/2024 06:30:00 0.85 0.00-1.10 (K/uL) Final Eos, Abs 02/28/2024 06:30:00 0.60 0.00-0.70 (K/uL) Final Basos, Abs 02/28/2024 06:30:00 0.05 0.00-0.20 (K/uL) Final Immature Granulocytes, Number 02/28/2024 06:30:00 0.03 0.00-0.20 (K/uL) Final Performing Location [facility] - [facility] [address]. [place] [address]
--- OUTSIDE RECORDS SUMMARY | 2024-04-25 23:48 | External Medical Summary | Summary of Care ---
Author Name Unknown Organization [facility] Address [address] [place] [address] Phone [phone] Care Team Providers Care English Instructor Name Role Phone Emma Alonzo MD Primary Care Provider Reason for Visit * Reason Onset Date Comments Hospital Follow-Up 02/21/2024 Encounter Details Date Type Department Care Team (Late st Contact Info) Description 02/21/[address] [place] [phone] Emma Alonzo MD [facility] [address] [place] [address] Hospital Follow-Up Allergies Active Allergy Reactions Criticality Noted Date Comments Bee Venom Hives High 03/14/2017 documented as of this encounter (statuses as of 02/26/2024) Medications Medication Sig Dispensed Refills Start Date [...] g 02/21/2024 Active Vitamin D3 1.25 MG (82924 UT) Oral Capsule Take 1 Capsule by [...] as of this encounter (statuses as of 02/26/2024) Active Problems Problem Noted Date Diagnosed Date [...] fibrillation) 10/18/2018 Coronary artery disease invo lving [place] coronary artery without angina pectoris 01/07/2015 snf [...] as of this encounter (statuses as of 02/26/2024) Resolved Problems Problem Noted Date Diagnosed Date [...] as of this encounter (statuses as of 02/26/2024) Immunizations Name Administration Dates Next Due COVID-19 [...] encounter Miscellaneous Notes * Telephone Encounter - Madison Flood OSA - 02/23/2024 3:59 PM EDT Patient at , need to check to see if he is in [facility] section and needs an appt or await discharge from there. * Telephone Encounter - Amanda Duenas OSA - 02/21/2024 8:19 PM EDT Patient Name: ROLAND CORRIGAN([id number]) Sex: Male : 1945 PCP: EMMA ALONZO Center: [facility] Level of Service:06152 [place] EMERGENCY DEPT VISIT HIGH SEVERITY&THREAT FUNCJ Types of orders made on 02/21/2024: Communication, IP Discharge, IP Post Discharge , Lab, Medications Order Date:02/21/2024 Ordering User:JAYNA HU [[id number]] Attending Provider:Cooper Phoenix MD [[id number]] Authorizing Provider: Jayna Hu DO [[id number]] Department:5A IP [facility][[id number]] Order Specific Information Order: RETURN APPT [CUSTOM: [id number]] Order #: [id number]: 1 Priority: Routine Class: Nursing Unit Department (Sin gle Entry) -> Family Practice Released on: 02/21/2024 4:59 PM Priority: Routine Class: Nursing Unit Department (Single Entry) -> Family Practice Released on: 02/21/2024 4:59 PM documented in this encounter Plan of Treatment Upcoming Encounters Date Type Department Care Team (Late st Contact Info) Description 02/27/2024 11:20 AM EDT Office Visit [place] [address] [place] [address] Emma Alonzo MD [address] [place] [address] 03/01/2024 5:20 PM EDT Anticoagulation [facility], Sandra Gómez [address] [place] [address] [place] [address] [facility], [address] [place] [address] 03/18/2024 9:40 AM EDT Office Visit Wound Care, [address] [address] Hermes Noble MD [address] [place] [address] 04/02/2024 9:40 AM EDT Office Visit Infectious Disease, [address] [phone] Rio Chun, DO [address] [place] [address] 06/06/2024 9:30 AM EDT Office Visit Cardiology, [address] [address] Yas Mckinnon CRNP [address] [place] [address] 07/23/2024 9:30 AM EST Office Visit Radiation Oncology, [facility] [address] [place] [address] Eros Faust MD [address] [place] [address] [place] [address] Health Maintenance Due Date Last Done Comments [...] this encounter Medical Devices Implanted Type Area Manager Of Sustainability Device Identifier Shelf Expiration Date Model / Serial / Lot Connector Nerve 2mm 15mm - [id number] Implanted:Qty : 1 on 04/27/[place]23 [place] [facility] [place] Face [employer] [id number] 12/24/2024 [id number] / / [id number] Alloderm 4x7 Thin 0.8-1.2 (28 Units) - [id number] - [id number] Implanted:Qty : 28 on 04/27/2023 by [place]ley H[place] [facility] [place] Face ABBVIE 12/18/2024 [id number] / [id number] / [id number] Sheeting Monisha 2x3in X.020in - [id number] Implanted:Qty : 1 on 04/27/2023 by Dudley Hinojosa MD at [facility] Left: Ear [employer]IED [employer] 09/25/2024-700-20 / / [id number] Sheeting Monisha 2x3 In X.005in - [id number] Implanted:Qty : 1 on 12/12/2023 by Gurvinder Garcia [place] [facility] [place] Ear ALLIED BI[employer] 04/05/2026-700-05 / / [id number] Cath Pwr Picc Solo Inj 4f - [id number] Implanted:Qty : 1 on 01/26/2024 at [facility] CR BARD : ACCESS SYSTEMS [id number] 06/20/2025 [id number] / / [id number] documented as of this encounter Additional Health Concerns Infection Onset Date Last Indicated 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 01/24/2024 documented as of this encounter Advance Directives Documents on File Type Date Recorded Patient Med Admin Expl anation POLST 02/16/2024 signed on 12/17 [place] ORDERS FOR LIFE-SUSTAINING TREATMENT POLST 04/26/2023 [place] OR DERS FOR LIFE-SUSTAINING TREATMENT * Full [...] Agents on File Name Relationship Healthcare Agent [facility] Child Power of Hearing Therapist Care Teams English Instructor Relationship Specialty Start Date End Date Emma Alonzo MD [address] [place] [address] [place] [address] PCP - General Family Medicine 09/20/23 documented as of this encounter
--- OUTSIDE RECORDS SUMMARY | 2024-04-25 23:48 | External Medical Summary | Summary of Care ---
Author Name Unknown Organization [facility] Address [address] [place] [address] Phone [phone] Care Team Providers Care Cash Accounting Clerk Name Role Phone Jad Boone MD Primary Care Provider Encounter Details Date Type Department Care Team (Late st Contact Info) Description 02/29/2024 Population Health External Data Unspecified Department Allergies Active Allergy Reactions Criticality Noted Date Comments Bee Venom Hives High 03/14/2017 documented as of this encounter (statuses as of 02/29/2024) Medications Medication Sig Dispensed Refills Start Date [...] g 02/21/2024 Active Vitamin D3 1.25 MG (42925 UT) Oral Capsule Take 1 Capsule by [...] as of this encounter (statuses as of 02/29/2024) Active Problems Problem Noted Date Diagnosed Date [...] fibrillation) 10/18/2018 Coronary artery disease invo lving [place] coronary artery without angina pectoris 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 0 05/01/2014 Overview: ICD-10 update of inactive term Heart failure, systolic, due to CAD 08/28/2012 Overview: ECHO 2011 - Segmental wall abnormality, severe hypokinesis of anterior septum, anterior wall, apex, distal inferior septum, distal inferior wall, and distal posterior wall EF 33% Mass of left parotid gland documented as of this encounter (statuses as of 02/29/2024) Resolved Problems Problem Noted Date Diagnosed Date [...] as of this encounter (statuses as of 02/29/2024) Immunizations Name Administration Dates Next Due COVID-19 [...] No 10/10/2023 Does the household have a surgeons choice medical centerr source of income? (Household - for ages [...] Care Team (Late st Contact Info) Description 03/01/2024 5:20 PM EDT Anticoagulation [facility], Sandra Gómez [address] [place] [address] [place] [address] [facility], [address] [place] [address] 03/18/2024 9:40 AM EDT Office Visit Wound Care, [address] [address] Hermes Noble MD [address] [place] [address] 04/02/2024 9:40 AM EDT Office Visit Infectious Disease, [address] [phone] Rio Chun, DO [address] [place] [address] 06/06/2024 9:30 AM EDT Office Visit Cardiology, [address] [address] Yas Mckinnon CRNP [address] [place] [address] 07/23/2024 9:30 AM EST Office Visit Radiation Oncology, [facility] [address] [place] [address] Eros Faust MD [address] [place] [address] Health Maintenance Due Date Last Done Comments Albumin/Creatinine Ratio 1963 Hepatitis C Screening 1963 Zoster Vaccines (2 of 3) 06/26/2014 05/01/2014 *SPIROMETRY ONCE FOR ASTHMA-ADULT 07/14/2022 COVID-19 Vaccine ( - season) 2023 06/01/2023, 06/01/2023, 06/09/2022, Additional history exists Influenza Vaccine (FLU shot) (#1) 2024 05/30/2023, 05/30/2023, 05/18/2022, Additional history exists Depression Screening 09/18/2024 09/18/2023 GFR 02/27/2025 02/28/2024, 07/0 10/2023, 02/20/2024, Additional history exists DTaP,Tdap,and Td Vaccines (2 [...] this encounter Medical Devices Implanted Type Area Clothing Worker Device Identifier Shelf Expiration Date Model / Serial / Lot Connector Nerve 2mm 15mm - [id number] Implanted:Qty : 1 on 04/27/2023 by Dudley Hinojosa MD at [place] [facility] [place] Left: Face [employer] [id number] 12/24/2024 [id number] / / [id number] Alloderm 4x7 Thin 0.8-1.2 (28 Units) - [id number] - [id number] Implanted:Qty : 28 on 04/27/2023 by Dudley Hinojosa MD at [place] [facility] [place] Left: Face ABBVIE 12/18/2024 [id number] / [id number] / [id number] Sheeting Monisha 2x3in X.020in - [id number] Implanted:Qty : 1 on 04/27/2023 by Dudley Hinojosa MD at [place] [facility] [place] Left: Ear [employer] 09/25/2024700- / / [id number] Sheeting Monisha 2x3 In X.005in - [id number] Implanted:Qty : 1 on 12/12/2023 by Gurvinder Garcia MD at [place] [facility] [place] Left: Ear [employer] 04/05/2026- / / [id number] Cath Pwr Picc Solo Inj 4f - [id number] Implanted:Qty : 1 on 01/26/2024 at [facility] CR BARD : ACCESS SYSTEMS [id number] 06/20/2025 [id number] / / [id number] documented as of this encounter Additional Health Concerns Infection Onset Date Last Indicated 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 01/24/2024 documented as of this encounter Advance Directives Documents on File Type Date Recorded Patient Spud Sorter Expl anation POL 02/16/2024 signed on 12/17 [place] ORDERS FOR LIFE-SUSTAINING TREATMENT POLST 04/26/2023 [place] OR DERS FOR LIFE-SUSTAINING TREATMENT * Full [...] Brody Varela Adult Child Power of Skein Tier Care Teams Cash Accounting Clerk Relationship Specialty Start Date End Date Jad Boone MD [address] [facility] [place] [address] PCP - General Family Medicine 09/20/23 documented as of this encounter
--- OUTSIDE RECORDS SUMMARY | 2024-04-25 23:48 | External Medical Summary | Summary of Care ---
Author Name Unknown Organization [facility] Address [address] [place] [address] Phone [phone] Care Team Providers Care Clerk Entry Level Name Role Phone Jad Boone MD Primary Care Provider Reason for Visit * Reason Onset Date Comments Order Request 02/23/2024 Wound Care Encounter Details Date Type Department Care Team (Late st Contact Info) Description 02/23/2024 Telephone General Surgery Luis Ahn [address] [address] [place] [address] Hermes Noble MD [address] [place] [address] Order Request (Wound Care) Allergies Active Allergy Reactions Criticality Noted Date [...] g 02/21/2024 Active Vitamin D3 1.25 MG (18538 UT) Oral Capsule Take 1 Capsule by [...] fibrillation) 10/18/2018 Coronary artery disease invo lving [place] coronary artery without angina pectoris 01/07/2015 snf [...] encounter Miscellaneous Notes * Telephone Encounter - Sharlene Corbin CMA - 02/26/2024 9:37 AM EDT Images from the original note were not included. Hermes Noble MD You33 minutes ago (9:02 AM) [address] Dakins [facility] at [place] aware * Telephone Encounter - Sharlene Corbin CMA - 02/23/2024 12:14 PM EDT Karin calling from [place] [phone] EXT [phone] Patient was discharged from [facility] 02/21/2024 She is asking for clarification on wound care for patient's ear Prior to discharge they were doing Dakins irrigation BID and then applying Vaseline gauze to wound bed and Vaseline dana wound. She is stating that the discharge instructions given to them are askingto use Chlorhexidine to the L/ear wound She would like to know if this is in fact how you would like to have the wound taken care of or if you would like them to go back to 2 st Dakins irrigation, blot dry - Thin layer of vaseline over ulcerated area and scabs - Vaseline gauze over periauricular ulcer - 4x4 gauze buttress - ABD pad - Fishnet compressive head wrap Please advise Thanks documented in this encounter Plan of Treatment Upcoming Encounters Date Type Department Care Team (Late st Contact Info) Description 02/27/2024 11:20 AM EDT Office Visit [place] [address] [address] [place] [address] Jad Boone MD [address] [place] [address] 03/01/2024 5:20 PM EDT Anticoagulation Centralized Clinical [facility] Services, Sandra [address] [place] [address] [facility]ps, [address] [place] [address] 03/18/2024 9:40 AM EDT Office Visit Wound Care, [address] [address] Hermes Noble MD [address] [place] [address] 04/02/2024 9:40 AM EDT Office Visit Infectious Disease, [address] [phone] Rio Chun, DO [address] [place] [address] 06/06/2024 9:30 AM EDT Office Visit Cardiology, [address] [address] Yas Mckinnon CRNP [address] [place] [address] 07/23/2024 9:30 AM EST Office Visit Radiation Oncology, [facility] [address] [place] [address] Eros Faust MD [address] [place] [address] Health Maintenance Due Date Last Done Comments [...] this encounter Medical Devices Implanted Type Area Station Supervisor Device Identifier Shelf Expiration Date Model / Serial / Lot Connector Nerve 2mm 15mm - [id number] Implanted:Qty : 1 on 04/27/2023 by Dudley Hinojosa MD [place] [facility] [place]: Face [employer] [id number] 12/24/2024 [id number] / / [id number] Alloderm 4x7 Thin 0.8-1.2 (28 Units) - [id number] - [id number] Implanted:Qty : 28 on 04/27/2023 by Dudley Hinojosa MD [place] [facility] [place] Left: Face ABBVIE 12/18/2024 [id number] / [id number] / [id number] Sheeting Monisha 2x3in X.020in - [id number] Implanted:Qty : 1 on 04/27/2023 by Dudley Hinojosa MD at [place] [facility] [place] Left: Ear [employer]IED [employer] 09/25/2024700- / / [id number] Sheeting Monisha 2x3 In X.005in - [id number] Implanted:Qty : 1 on 12/12/2023 by Gurvinder Garcia MD at [place] [facility] [place] Left: Ear [employer]IED [employer] 04/05/2026- / / [id number] Cath Pwr Picc Solo Inj 4f - [id number] Implanted:Qty : 1 on 01/26/2024 at [facility] CR BARD : ACCESS SYSTEMS [id number] 06/20/2025 [id number] / / [id number] documented as of this encounter Additional Health Concerns Infection Onset Date Last Indicated 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
--- OUTSIDE RECORDS SUMMARY | 2024-04-25 23:48 | External Medical Summary | Summary of Care ---
Author Name Unknown Organization [facility] Address [address] [facility] [place] [address] Phone [phone] Care Team Providers Care Preschool Program Director Name Role Phone Jad Boone MD Primary Care Provider Reason for Visit * Reason Comments Dosage Adjustment Via Phone (anticoag Cl inic) Encounter Details Date Type Department Care Team (Late st Contact Info) Description 03/01/2024 5:20 PM EDT Anticoagulation Centralized Clinical Pharmacy Services, Sandra Gómez [address] [place] [address] [place] [address] [facility], [address] [place] [address] PAF (paroxysmal atrial fibrillation) ([facility])* Allergies Active Allergy Reactions Criticality Noted Date Comments Bee Venom Hives High 03/14/2017 documented as of this encounter (statuses as of 03/01/2024) Medications Medication Sig Dispensed Refills Start Date End Date Status Omeprazole 20 MG Oral Capsule Delayed Release (PriLOSEC) Take 1 Capsule by mouth in the morning. 90 Capsule 1 11/15/2022 Active Multivitamin Adult Oral Tablet Take by mouth every evening. 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 0 05/01/2014 Overview: ICD-10 update of inactive term Heart failure, systolic, due to CAD 08/28/2012 Overview: ECHO 2011 - Segmental wall abnormality, severe hypokinesis of anterior septum, anterior wall, apex, distal inferior septum, distal inferior wall, and distal posterior wall EF 33% Mass of left parotid gland documented as of this encounter (statuses as of 03/01/2024) Resolved Problems Problem Noted Date Diagnosed Date [...] as of this encounter (statuses as of 03/01/2024) Immunizations Name Administration Dates Next Due COVID-19 [...] of this encounter Progress Notes * Alyson Salinas RPh - 03/01/2024 2:32 PM EDT Noted, pt has weekly dose. Will follow up Monday with results/dosing Alyson Salinas Rph, Pharm.D. Clinical Pharmacist [facility] ([facility]) [phone] 03/01/2024,2:32 PM * Tamika Darden PHARM Tech - 03/01/2024 2:11 PM EDT Spoke to nurse @ [place]. Pts INR is being drawn on 03/04. F/U call scheduled for same day. Please advise. Thank you, Tamika Darden Metal Painter [facility] Pharm[facility] Services ([facility]) [phone] 03/01/2024,2:18 PM documented in this encounter Plan of Treatment Upcoming Encounters Date Type Department Care Team (Late st Contact Info) Description 03/04/2024 5:20 PM EDT Anticoagulation Centralized Clinical Pharmacy Services, Sandra Gómez [address] [place] [address] [place] [address] [facility], [address] [place] [address] 03/18/2024 9:40 AM EDT Office Visit Wound Care, [address] [address] Hermes Noble MD [address] [place] [address] 04/02/2024 9:40 AM EDT Office Visit Infectious Disease, [address] [phone] Rio Chun, DO [address] [place] [address] 06/06/2024 9:30 AM EDT Office Visit Cardiology, [address] [address] Yas Mckinnon CRNP [address] [place] [address] 07/23/2024 9:30 AM EST Office Visit Radiation Oncology, [address] [place] [address] Eros Faust MD [address] [place] [address] Health Maintenance Due Date Last Done Comments [...] this encounter Medical Devices Implanted Type Area Flame Annealing Machine Setter Device Identifier Shelf Expiration Date Model / Serial / Lot Connector Nerve 2mm 15mm - [id number] Implanted:Qty : 1 [place] 04/27/[place]23 [place] [facility] [place] Face [employer] [id number] 12/24/2024 [id number] / / [id number] Alloderm 4x7 Thin 0.8-1.2 (28 Units) - [id number] - [id number] Implanted:Qty : 28 on 04/27/2023 by [place]ley H[place] [facility] [place] Face ABBVIE 12/18/2024 [id number] / [id number] / [id number] Sheeting Monisha 2x3in X.020in - [id number] Implanted:Qty : 1 on 04/27/2023 by Dudley H[place] [facility] [place]: Ear [employer]IED BI[employer] 09/25/2024 / / [id number] Sheeting Monisha 2x3 In X.005in - [id number] Implanted:Qty : 1 on 12/12/2023 by Gurvinder Garcia [place] [facility] [place]: Ear [employer]IED BI[employer] 04/05/2026- / [id number] Cath Pwr Picc Solo Inj 4f - [id number] Implanted:Qty : 1 on 01/26/2024 at 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 documented as of this encounter Advance Directives Documents on File Type Date Recorded Patient Environmental Control Administrator Expl anation POLST 02/16/2024 signed on 12/17 [place] ORDERS FOR LIFE-SUSTAINING TREATMENT POLST 04/26/2023 [place] [...] Communication Brody Varela Adult Child Power of Supervisor Travel Information Center Care Teams Preschool Program Director Relationship Specialty Start Date End Date Jad Boone MD [address] [facility] [place] [address] PCP - General Family Medicine 09/20/23 documented as of this encounter
--- OUTSIDE RECORDS SUMMARY | 2024-04-25 23:48 | External Medical Summary | Summary of Care ---
Author Name Unknown Organization [facility] Address [address] [facility] [place] [address] Phone [phone] Care Team Providers Care Incendiaries Supervisor Name Role Phone Jad Boone MD Primary Care Provider Reason for Visit * Reason Comments Dosage Adjustment Via Phone (anticoag Cl inic) Encounter Details Date Type Department Care Team (Late st Contact Info) Description 02/23/2024 6:45 AM EDT Anticoagulation Centralized [facility], [place] [address] [place] [address] [place] [address] [facility], [address] [place] [address] PAF (paroxysmal atrial fibrillation) ([facility] [...] g 02/21/2024 Active Vitamin D3 1.25 MG (22350 UT) Oral Capsule Take 1 Capsule by [...] fibrillation) 10/18/2018 Coronary artery disease invo lving [place] coronary artery without angina pectoris 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 Medication Therapy Disease Management - Anticoagulation Patient: Stephen Varela | : 1945 Fdc/SNF Patient Anticoagulation Encounter Patient is a resident at: [facility] -- Fax sent to number listed above detailing plan of care below. Please notify clinic with any unusual brusing or bleeding, N/V/D, medication or diet changes or anymissed or extra doses of Coumadin. Subjective Contacts Type Contact Phone/Fax 02/23/2024 03:51 PM EDT Phone (Outgoing) Stephen Varela (Self) [phone] (M) Left Message Patient-Reported Symptoms: Patient Findings Positives: Hospital admission (Admitted to [facility] 02/14-02/20 for dysarthria and aphasia post surgery forosteomyelitis. Stroke workup unremarkable but pt had CLAUDY. IV antibiotics changed to Daptomycinn & Meropenem for CLAUDY.) Objective Current Warfarin Dose As of 02/23/2024 Warfarin maintenance plan: 10 mg (1 mg x 10) every Mon, Wed; 7.5 mg (1 mg x 7.5) all other days INR Result As of 02/23/2024 INR goal: 2.0-3.0 INR used for dosin.2 (02/23/2024) Assessment & Plan Warfarin Plan As of 02/23/2024 Full warfarin instructions: 02/22: Hold; Otherwise 10 mg every Mon, Wed; 7.5 mg all other days Next INR check: 03/01/2024 Repeat PT/INR in 1 week(s) Weekly dose: not changed Additional Dosing Information: Description Call patient while at [facility] AND fax Facility at [phone] Cefepime and Vanco until 03/07/24 (getting weekly labs)- Changed to Dapto + Meropenem 02/15/24 pt started multivitamin around beginning of October Carla Heaton RP Clinical Pharmacist 02/23/2024, 3:42 PM documented in this encounter Plan of Treatment Upcoming Encounters Date Type Department Care Team (Late st Contact Info) Description 02/27/2024 11:20 AM EDT Office Visit [place] [address] [place] [address] Jad Boone MD [address] [place] [address] [place] [address] 03/01/2024 5:20 PM EDT Anticoagulation Centralized Clinical Pharmacy Services, [address] [place] [address] [place] [address] 03/18/2024 9:40 AM EDT Office Visit Wound Care, [address] [place] [address] Hermes Noble MD [address] [facility] [place] [address] 04/02/2024 9:40 AM EDT Office Visit Infectious Disease, [address] [place] [id number] Rio Chun, DO [address] [place] [address] 06/06/2024 9:30 AM EDT Office Visit Cardiology, [place] [address] [place] [address] Yas Mckinnon CRNP [address] [place] [address] 07/23/2024 9:30 AM EST Office Visit Radiation Oncology, [facility] [address] [place] [address] Eros Faust MD 400 [place] [address] Health Maintenance Due Date Last Done Comments [...] this encounter Medical Devices Implanted Type Area Farm Contractor Buyer Device Identifier Shelf Expiration Date Model / Serial / Lot Connector Nerve 2mm 15mm - [id number] Implanted:Qty : 1 on 04/27/2023 by Dudley Hinojosa [place] [facility] [place] Face [employer] [id number] 12/24/2024 [id number] / / [id number] Alloderm 4x7 Thin 0.8-1.2 (28 Units) - [id number] - [id number] Implanted:Qty : 28 on 04/27/2023 by Dudley Hinojosa MD [place] [facility] [place]: Face ABBVIE 12/18/2024 [id number] / [id number] / [id number] Sheeting Monisha 2x3in X.020in - [id number] Implanted:Qty : 1 on 04/27/2023 by Dudley Hinojosa MD [place] [facility] [place]: Ear [employer] 09/25/2024700-20 / / [id number] Sheeting Monisha 2x3 In X.005in - [id number] Implanted:Qty : 1 on 12/12/2023 by Gurvinder Garcia MD [place] [facility] [place]: Ear [employer] 04/05/2026 [id number] / / [id number] Cath Pwr Picc Solo Inj 4f - [id number] Implanted:Qty : 1 on 01/26/2024 at [facility] CR BARD : ACCESS SYSTEMS [id number] 06/20/2025 [id number] / / [id number] documented as of this encounter Visit Diagnoses Diagnosis PAF (paroxysmal atrial fibrillation) (HCC)- Primary Atrial fibrillation 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 documented as of this encounter Advance Directives Documents on File Type Date Recorded Patient Measurement And Sensing Technician Expl anation POLST 02/16/2024 signed on 12/17 [place] ORDERS FOR LIFE-SUSTAINING TREATMENT POLST 04/26/2023 [place] OR DERS FOR LIFE-SUSTAINING TREATMENT * Full [...] [facility]ly [facility], [facility]1983hi p Communication [facility] Child Power of Medical Office Representative Care Teams Incendiaries Supervisor Relationship Specialty Start Date End Date Jad Boone MD [address] [facility] [address] [place] [address] PCP - General Family Medicine 09/20/23 documented as of this encounter
--- OUTSIDE RECORDS SUMMARY | 2024-04-25 23:48 | External Medical Summary | Summary of Care ---
Author Name Unknown Organization [facility] Address [address] [place] [address] Phone [phone] Care Team Providers Care Drill Operator Automatic Name Role Phone Jad Boone MD Primary Care Provider Encounter Details Date Type Department Care Team (Late st Contact Info) Description 02/21/2024 Telephone Infectious Disease Treatment, [place] [address] [place], [place] [phone] Loreta Luna MD [address] [place] [address] Allergies Active Allergy Reactions Criticality [...] g 02/21/2024 Active Vitamin D3 1.25 MG (33651 UT) Oral Capsule Take 1 Capsule by [...] fibrillation) 10/18/2018 Coronary artery disease invo lving [place] coronary artery without angina pectoris 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 0 05/01/2014 [...] 9:40 AM EDT Office Visit Wound Care, [address] [address] Hermes Noble MD 27 [place] [address] 04/02/2024 9:40 AM EDT Office Visit Infectious Disease, [address] [phone] Rio Chun, DO [address] [place] [address] 06/06/2024 9:30 AM EDT Office Visit Cardiology, [address] [address] Yas Mckinnon CRNP [address] [place] [address] 07/23/2024 9:30 AM EST Office Visit Radiation Oncology, [facility] [address] [place] [address] Eros Faust MD [address] [place] [address] Health Maintenance Due Date Last Done Comments [...] this encounter Medical Devices Implanted Type Area Human Factors Specialist Device Identifier Shelf Expiration Date Model / Serial / Lot Connector Nerve 2mm 15mm - [id number] Implanted:Qty : 1 on 04/27/2023 by Dudley Hinojosa MD at [place] [facility] [place] Left: Face [employer] [id number] 12/24/2024 [id number] / / [id number] Alloderm 4x7 Thin 0.8-1.2 (28 Units) - [id number] - [id number] Implanted:Qty : 28 on 04/27/2023 by Dudlye Hinojosa MD at [place] [facility] [place] Left: Face ABBVIE 12/18/2024 [id number] / [id number] / [id number] Sheeting Monisha 2x3in X.020in - [id number] Implanted:Qty : 1 on 04/27/2023 by Dudley Hinojosa MD at [place] [facility] [place] Left: Ear [employer] 09/25/202412/2024 / [id number] Sheeting Monisha 2x3 In X.005in - [id number] Implanted:Qty : 1 on 12/12/2023 by Gurvinder Garcia MD at [place] [facility] [place] Left: Ear [employer] 04/05/2026- / / [id number] Cath Pwr Picc Solo Inj 4f - [id number] Implanted:Qty : 1 on 01/26/2024 at [facility] CR BARD : ACCESS SYSTEMS [id number] 06/20/2025 [id number] / / [id number] documented as of this encounter Additional Health Concerns Infection Onset Date Last Indicated 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 01/24/2024 documented as of this encounter Advance Directives Documents on File Type Date Recorded Patient Health Insurance Sales Agent Expl anation POLST 02/16/2024 signed on 12/17 [place] ORDERS FOR LIFE-SUSTAINING TREATMENT POLST 04/26/2023 [place] OR DERS FOR LIFE-SUSTAINING TREATMENT * Full [...] Name Relationship Healthcare Agent Relationshi p Communication Broyd Varela Adult Child Power of Mobile Application Tester Care Teams Drill Operator Automatic Relationship Specialty Start Date End Date Jad Boone MD [address] [facility] [address] [facility] [place] [address] PCP - General Family Medicine 09/20/23 documented as of this encounter
--- OUTSIDE RECORDS SUMMARY | 2024-04-25 23:48 | External Medical Summary ---
Author Name Unknown Address Unknown Organization K1F:LABORATORY [facility] - [address] [place] [address] Laboratory Report Ordering Provider Test Date Status SENG GARCIA 02/26/2024 06:47:00 Final Warfarin Therapy
INR: 2 .0-3.0 conventional anticoagulation
INR: 2.5- 3.5 high intensity anticoagulation Observation Date Value Abnormality Reference (Units ) Status PT 02/26/2024 06:47:00 34.2 Above high normal 11 .6-15.2 (seconds) Final INR 02/26/2024 06:47:00 3.3 Above high normal 0. 8-1.2 Final Performing Location LABORATORY [facility] - [address] [place] [address]
--- OUTSIDE RECORDS SUMMARY | 2024-04-25 23:48 | External Medical Summary ---
Author Name Unknown Address Unknown Organization K1F:LABORATORY [facility] - [address] [place] [address] Laboratory Report Ordering Provider Test Date Status SENG GARCIA 02/23/2024 07:20:00 Final Warfarin Therapy
INR: 2 .0-3.0 conventional anticoagulation
INR: 2.5- 3.5 high intensity anticoagulation Observation Date Value Abnormality Reference (Units ) Status PT 02/23/2024 07:20:00 32.9 Above high normal 11 .6-15.2 (seconds) Final INR 02/23/2024 07:20:00 3.2 Above high normal 0. 8-1.2 Final Performing Location LABORATORY [facility] - [address] [place] [address]
--- OUTSIDE RECORDS SUMMARY | 2024-04-25 23:48 | External Medical Summary ---
Author Name Unknown Address Unknown Organization K1F:LABORATORY [facility] - [address] [place] [address] Laboratory Report Ordering Provider Test Date Status SENG GARCIA 02/28/2024 06:30:00 Final Observation Date Value Abnormality Reference (Units ) Status BUN 02/28/2024 06:30:00 58 Above high normal 6-20 (mg/dL) Final Creatinine 02/28/2024 06:30:00 2.7 Above high normal 0.6-1.2 (mg/dL) Final Glomerular filtration rate/1.73 sq M.predicted [Volume Rate/Area] in Serum, Plasma or Blood by Creatinine-based formula (CKD-EPI) 02/28/2024 06:30:00 24 Below low normal >=60 (mL/min) Final eGFR is calculated based on the CKD-EPI 2020 equation Sodium 02/28/2024 06:30:00 141 135-146 (m mol/L) Final Potassium 02/28/2024 06:30:00 5.3 Above high normal 3. 5-5.1 (mmol/L) Final Results rechecked Cl 02/28/2024 06:30:00 104 98-107 (mm ol/L) Final CO2 02/28/2024 06:30:00 21 Below low normal 22- 32 (mmol/L) Final Anion gap 02/28/2024 06:30:00 16 Above high normal 7- 15 (mmol/L) Final Glucose 02/28/2024 06:30:00 83 70-120 (mg /dL) Final Calcium 02/28/2024 06:30:00 9.1 8.4-10.2 ( mg/dL) Final Performing Location LABORATORY [facility] - [address] [place] [address]
--- OUTSIDE RECORDS SUMMARY | 2024-04-25 23:48 | External Medical Summary ---
Author Name Unknown Address Unknown Organization K1F:LABORATORY [facility] - [address] [place] [address] Laboratory Report Ordering Provider Test Date Status SENG GARCIA 02/28/2024 06:30:00 Final Observation Date Value Abnormality Reference (Units ) Status WBC, Total 02/28/2024 06:30:00 9.43 4.00-10.80 (K/uL) Final RBC 02/28/2024 06:30:00 3.66 4.50-5.25 (M/uL) Final Hemoglobin 02/28/2024 06:30:00 9.9 Below low normal 14.0-16.8 (g/dL) Final HCT 02/28/2024 06:30:00 32.1 Below low normal 40.0-48.4 (%) Final MCV 02/28/2024 06:30:00 87.7 82.0-99.5 (fL) Final MCH 02/28/2024 06:30:00 27.0 27.0-34.0 (pg) Final MCHC 02/28/2024 06:30:00 30.8 32.0-36.0 (g/dL) Final RDW 02/28/2024 06:30:00 17.6 11.5-15.5 (%) Final Platelets 02/28/2024 06:30:00 140 140-400 (K/uL) Final MPV 02/28/2024 06:30:00 10.2 6.6-11.1 (fL) Final Nucleated erythrocytes/100 leukocytes [Ratio] in Blood by Automated count 02/28/2024 06:30:00 0 <=0 (/100 WBCs) Final Performing Location LABORATORY [facility] - [address] [place] [address]
--- OUTSIDE RECORDS SUMMARY | 2024-04-25 23:49 | External Medical Summary ---
Author Name Unknown Address Unknown Organization K1F:LABORATORY [facility] - [address] [place] [address] Laboratory Report Ordering Provider Test Date Status FRITZ DORANTES 02/20/2024 04:15:00 Final Warfarin Therapy
INR: 2 .0-3.0 conventional anticoagulation
INR: 2.5- 3.5 high intensity anticoagulation Observation Date Value Abnormality Reference (Units ) Status PT 02/20/2024 04:15:00 27.2 Above high normal 11 .6-15.2 (seconds) Final INR 02/20/2024 04:15:00 2.5 Above high normal 0. 8-1.2 Final Performing Location LAB[facility]ATORY [facility] - [address] [place] [address]
--- OUTSIDE RECORDS SUMMARY | 2024-04-25 23:49 | External Medical Summary ---
Author Name Unknown Address Unknown Organization K1F:LABORATORY [facility] - [address] [place] [address] Laboratory Report Ordering Provider Test Date Status ARTURO ESQUIVEL 02/19/2024 08:23:00 Final Observation Date Value Abnormality Reference (Units ) Status BUN 02/19/2024 08:23:00 47 Above high normal 6-20 (mg/dL) Final Creatinine 02/19/2024 08:23:00 2.6 Above high normal 0.6-1.2 (mg/dL) Final Glomerular filtration rate/1.73 sq M.predicted [Volume Rate/Area] in Serum, Plasma or Blood by Creatinine-based formula (CKD-EPI) 02/19/2024 08:23:00 25 Below low normal >=60 (mL/min) Final eGFR is calculated based on the CKD-EPI 2020 equation Sodium 02/19/2024 08:23:00 142 135-146 (m mol/L) Final Potassium 02/19/2024 08:23:00 4.1 3.5-5.1 (m mol/L) Final Cl 02/19/2024 08:23:00 107 98-107 (mm ol/L) Final CO2 02/19/2024 08:23:00 22 22-32 (mmo l/L) Final Anion gap 02/19/2024 08:23:00 13 7-15 (mmol /L) Final Glucose 02/19/2024 08:23:00 96 70-120 (mg /dL) Final Calcium 02/19/2024 08:23:00 9.5 8.4-10.2 ( mg/dL) Final Performing Location LABORATORY [facility] - [address] [place] [address]
--- OUTSIDE RECORDS SUMMARY | 2024-04-25 23:49 | External Medical Summary ---
Author Name Unknown Address Unknown Organization K1F:LABORATORY [facility] - [address] [place] [address] Laboratory Report Ordering Provider Test Date Status FRITZ DORANTES 02/18/2024 04:51:00 Final Warfarin Therapy
INR: 2 .0-3.0 conventional anticoagulation
INR: 2.5- 3.5 high intensity anticoagulation Observation Date Value Abnormality Reference (Units ) Status PT 02/18/2024 04:51:00 25.3 Above high normal 11 .6-15.2 (seconds) Final INR 02/18/2024 04:51:00 2.3 Above high normal 0. 8-1.2 Final Performing Location LABORATORY [facility] - [address] [place] [address]
--- OUTSIDE RECORDS SUMMARY | 2024-04-25 23:49 | External Medical Summary ---
Author Name Unknown Address Unknown Organization K01:LABORATORY [facility] - [address] [facility] [address] Laboratory Report Ordering Provider Test Date Status MARJORIELEYDI 02/16/2024 05:26:00 Final Observation Date Value Abnormality Reference (Units ) Status HbA1C 02/16/2024 05:26:00 5.8 Above high normal 4. 0-5.6 (%) Final The use of HbA1c to monitor glycemic status is based on normal hemoglobin and HbA composition. This test should not be used in patients with abnormal hemoglobin that affects the half life of the red blood cell or the in vivo glycation rates. Glucose, estimated average 02/16/2024 05:26:00 120 <126 (mg/dL) Final Performing Location LABORATORY [facility] - [address] [facility] [address]
--- OUTSIDE RECORDS SUMMARY | 2024-04-25 23:49 | External Medical Summary ---
Author Name Unknown Address Unknown Organization K1F:LABORATORY [facility] - [address] [place] [address] Laboratory Report Ordering Provider Test Date Status SHAKIRAGODINEZ 02/18/2024 04:51:00 Final Observation Date Value Abnormality Reference (Units ) Status Vancomycin, level 02/18/2024 04:51:00 28.4 10 .0-40.0 (ug/mL) Final Performing Location LABORATORY [facility] - [address] [place] [address]
--- OUTSIDE RECORDS SUMMARY | 2024-04-25 23:49 | External Medical Summary ---
Author Name Unknown Address Unknown Organization K1F:LAB[facility]ORY [facility] - [address] [address] Laboratory Report Ordering Provider Test Date Status INNA [place] 02/17/2024 06:31:00 Final Observation Date Value Abnormality Reference (Units ) Status BUN 02/17/2024 06:31:00 49 Above high normal 6-20 (mg/dL) Final Creatinine 02/17/2024 06:31:00 2.4 Above high normal 0.6-1.2 (mg/dL) Final Glomerular filtration rate/1.73 sq M.predicted [Volume Rate/Area] in Serum, Plasma or Blood by Creatinine-based formula (CKD-EPI) 02/17/2024 06:31:00 27 Below low normal >=60 (mL/min) Final eGFR is calculated based on the CKD-EPI 2020 equation Sodium 02/17/2024 06:31:00 144 135-146 (m mol/L) Final Potassium 02/17/2024 06:31:00 3.7 3.5-5.1 (m mol/L) Final Cl 02/17/2024 06:31:00 108 Above high normal 98 -107 (mmol/L) Final CO2 02/17/2024 06:31:00 21 Below low normal 22- 32 (mmol/L) Final Anion gap 02/17/2024 06:31:00 15 7-15 (mmol /L) Final Glucose 02/17/2024 06:31:00 92 70-120 (mg /dL) Final Calcium 02/17/2024 06:31:00 9.7 8.4-10.2 ( mg/dL) Final Performing Location LABORATORY [facility] - [address] [address]
--- OUTSIDE RECORDS SUMMARY | 2024-04-25 23:49 | External Medical Summary ---
Author Name Unknown Address Unknown Organization K1F:LABORATORY [facility] - [address] [place] [address] Laboratory Report Ordering Provider Test Date Status ARTURO ESQUIVEL 02/20/2024 04:15:00 Final Observation Date Value Abnormality Reference (Units ) Status WBC, Total 02/20/2024 04:15:00 7.25 4.00-10.80 (K/uL) Final RBC 02/20/2024 04:15:00 3.60 4.50-5.25 (M/uL) Final Hemoglobin 02/20/2024 04:15:00 9.8 Below low normal 14.0-16.8 (g/dL) Final HCT 02/20/2024 04:15:00 31.1 Below low normal 40.0-48.4 (%) Final MCV 02/20/2024 04:15:00 86.4 82.0-99.5 (fL) Final MCH 02/20/2024 04:15:00 27.2 27.0-34.0 (pg) Final MCHC 02/20/2024 04:15:00 31.5 32.0-36.0 (g/dL) Final RDW 02/20/2024 04:15:00 17.3 11.5-15.5 (%) Final Platelets 02/20/2024 04:15:00 105 Below low normal 140-400 (K/uL) Final MPV 02/20/2024 04:15:00 10.3 6.6-11.1 (fL) Final Nucleated erythrocytes/100 leukocytes [Ratio] in Blood by Automated count 02/20/2024 04:15:00 0 <=0 (/100 WBCs) Final Performing Location LABORATORY [facility] - [address] [address]
--- OUTSIDE RECORDS SUMMARY | 2024-04-25 23:49 | External Medical Summary ---
Author Name Unknown Address Unknown Organization K1F:LABORATORY [facility] - [address] [place] [address] Laboratory Report Ordering Provider Test Date Status ARTURO ESQUIVEL 02/18/2024 04:51:00 Final Observation Date Value Abnormality Reference (Units ) Status WBC, Total 02/18/2024 04:51:00 7.37 4.00-10.80 (K/uL) Final RBC 02/18/2024 04:51:00 3.59 4.50-5.25 (M/uL) Final Hemoglobin 02/18/2024 04:51:00 9.7 Below low normal 14.0-16.8 (g/dL) Final HCT 02/18/2024 04:51:00 31.1 Below low normal 40.0-48.4 (%) Final MCV 02/18/2024 04:51:00 86.6 82.0-99.5 (fL) Final MCH 02/18/2024 04:51:00 27.0 27.0-34.0 (pg) Final MCHC 02/18/2024 04:51:00 31.2 32.0-36.0 (g/dL) Final RDW 02/18/2024 04:51:00 17.2 11.5-15.5 (%) Final Platelets 02/18/2024 04:51:00 93 Below low normal 140-400 (K/uL) Final MPV 02/18/2024 04:51:00 10.4 6.6-11.1 (fL) Final Nucleated erythrocytes/100 leukocytes [Ratio] in Blood by Automated count 02/18/2024 04:51:00 0 <=0 (/100 WBCs) Final Performing Location LABORATORY [facility] - [address] [address]
--- OUTSIDE RECORDS SUMMARY | 2024-04-25 23:49 | External Medical Summary ---
Author Name Unknown Address Unknown Organization K1F:LABORATORY [facility] - [address] [facility] [place] [address] Laboratory Report Ordering Provider Test Date Status ARTURO ESQUIVEL 02/19/2024 08:22:00 Final Observation Date Value Abnormality Reference (Units ) Status SYNC LEUKOCYTES IN BLOOD BY AUTOMATED COUNT 02/19/2024 08:22:00 8.24 4.00-10.80 (K/uL) Final Segs 02/19/2024 08:22:00 75.0 40.0-75.0 (%) Final Lymphs % 02/19/2024 08:22:00 9.2 Below low normal 18.0-42.0 (%) Final Monos 02/19/2024 08:22:00 8.6 1.0-11.0 (%) Final Eosinophils 02/19/2024 08:22:00 6.2 Above high normal 0.0-6.0 (%) Final Basos 02/19/2024 08:22:00 0.8 0.0-2.0 (%) Final Immature Granulocyte, Percent 02/19/2024 08:22:00 0.2 0.0-2.0 (%) Final Absolute Segs 02/19/2024 08:22:00 6.17 1.80-7.70 (K/uL) Final Lymphs, absolute 02/19/2024 08:22:00 0.76 Below low normal 1.00-4.80 (K/ul) Final Monos, Abs 02/19/2024 08:22:00 0.71 0.00-1.10 (K/uL) Final Eos, Abs 02/19/2024 08:22:00 0.51 0.00-0.70 (K/uL) Final Basos, Abs 02/19/2024 08:22:00 0.07 0.00-0.20 (K/uL) Final Immature Granulocytes, Number 02/19/2024 08:22:00 0.02 0.00-0.20 (K/uL) Final Performing Location LABORATORY [facility] - [address] [place] [address]
--- OUTSIDE RECORDS SUMMARY | 2024-04-25 23:49 | External Medical Summary | Summary of Care ---
Author Name Unknown Organization [facility] [address] [facility] [place] [address] Phone [phone] Care Team Providers Care Utility Teller Name Role Phone Jad Boone MD Primary Care Provider Reason for Visit * Reason Comments Dosage Adjustment Via Phone (anticoag Cl inic) Encounter Details Date Type Department Care Team (Late st Contact Info) Description 02/19/2024 5:20 PM EDT Anticoagulation [facility], Sandra G[facility]mez [address] [place] [address] [place] [address] [facility], [address] [place] [address] PAF (paroxysmal atrial fibrillation) ([facility])* Allergies Active Allergy Reactions Criticality Noted Date Comments Bee Venom Hives High 03/14/2017 documented as of this encounter (statuses as of 02/19/2024) Medications Medication Sig Dispensed Refills Start Date End Date Status Omeprazole 20 MG Oral Capsule Delayed Release (PriLOSEC) Take 1 Capsule by mouth in the morning. 90 Capsule 1 3 Suspended Additional Information Vitamin D3 1.25 MG (19364 UT) Oral Capsule Take 1 Capsule by mouth once a week. 12 Capsule 3 3 Suspended Additional Information Patient taking differently:50,000 Units Oral QWEEK,Every Monday, Reported on 01/18/2024 Atorvastatin Calcium 20 MG Oral Tablet (Lipitor)Indicati ons:Coronary artery disease involving white earth coronary artery of white earth heart without angina pectoris TAKE 1 TABLET, BY MOUTH, IN THE MORNING. 90 Tablet 1 3 Suspended Additional Information Acetaminophen 325 MG Oral Tablet (Tylenol) Take 2 Tablets by mouth every 6 hours as needed for Pain, Mild. 30 Tablet 3 Suspended Additional Information Multivitamin Adult Oral Tablet Take by mouth every evening. Suspended Metoprolol Succinate ER 25 MG Oral Tablet Extended Release 24 Hour (Toprol XL)Indications:Ch ronic diastolic CHF (congestive heart failure) ([facility]) Take 1 Tablet by mouth in the morning. 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 Suspend ed Lisinopril 10 MG Oral Tablet (Prinivil)Indicat ions:Chronic heart failure with preserved ejection fraction (HFpEF) ([facility]) Take 1 Tablet by mouth in the morning. 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 103.317 mL 4 Suspended Additional Information Patient not taking.Reported on 02/05/2024 oxyCODONE HCl 5 MG Oral Capsule (Oxy IR) Take 1 Capsule by mouth every 6 hours as needed. Suspended amLODIPine Besylate 2.5 MG Oral Tablet (Norvasc) Take 1 Tablet by mouth in the morning. 30 Tablet 4 Suspended Additional Information Magnesium Hydroxide 400 MG/5ML Oral Suspension (Milk of Magnesia) Take 30 mL by mouth daily as needed for Constipation. Suspended Sennosides-Docusa te Sodium 8.6-50 MG Oral Tablet (Senna S) Take 1 Tablet by mouth daily as needed for Constipation. Suspended Polyethylene Glycol 3350 17 GM/SCOOP Oral Powder (MiraLax) Take 17 g by mouth daily as needed for Constipation. Suspended Sodium Hypochlorite 0.25 % External Solution Apply topically to affected area every 12 hours. 473 mL 4 Suspended Additional Information vancomycin IV IV (AMBULATORY) Administer 1,000 mg intravenously in the morning and 1,000 mg in the evening. 80 g 4 03/07/20 24 Suspended Additional Information cefepime IV IJ (AMBULATORY) Administer 2 g intravenously in the morning and 2 g at noon and 2 g before bedtime. 240 g 4 03/07/20 24 Suspended Additional Information Bisacodyl 10 MG Rectal Suppository (Bisacodyl Laxative) Insert 1 suppository rectally every 72 hours as needed for constipation if MoM is ineffective (bowel Protocol) 4 Suspended EpiPen 2-Brian 0.3 MG/0.3ML Injection Solution Auto-injector Inject 1 dose intramuscularly as needed for anaphylaxis (H/O bee sting allergy) 4 Suspended Fleet Enema Rectal Enema Insert 1 dose rectally every 72 hours as needed for constipation *if Dulcolax is ineffective* (bowel protocol) 4 Suspended Furosemide 40 MG Oral Tablet (Lasix) Take 1 Tablet by mouth in the morning. 4 Suspended Warfarin Sodium 5 MG Oral Tablet (Coumadin)Indicat ions:PAF (paroxysmal atrial fibrillation) ([facility]) Take 1 tablet by mouth on Monday and 1.5 tablet by mouth S,S,M,T,W,TH 4 Suspended documented as of this encounter (statuses as of 02/19/2024) Active Problems Problem Noted Date Diagnosed Date CLAUDY (acute kidney injury) 02/15/2024 Encephalopathy acute 02/15/2024 PICC (peripherally inserted central catheter) in [...] fibrillation) 10/18/2018 Coronary artery disease invo lving white earth coronary artery without angina pectoris 01/07/2015 shelter current use of anticoagulant therapy 0 05/01/2014 Overview: ICD-10 update of inactive term Heart failure, systolic, due to CAD 08/28/2012 Overview: ECHO 2011 - Segmental wall abnormality, severe hypokinesis of anterior septum, anterior wall, apex, distal inferior septum, distal inferior wall, and distal posterior wall EF 33% Mass of left parotid gland documented as of this encounter (statuses as of 02/19/2024) Resolved Problems Problem Noted Date Diagnosed Date Resolved Date Ankylosing spondylitis of un specified sites in [...] as of this encounter (statuses as of 02/19/2024) Immunizations Name Administration Dates Next Due COVID-19 mRNA, LNP-s, No Pre serve, 2-Dose Series (HealthyOut) 11/26/2020,11/05/2020 Pneumococcal Conjugate Vacc, 13 Valent (Prevnar) [...] Smokeless Tobacco: Never Comments:smoked, and quit in 2004 Alcohol Use Standard Drinks/Week Comments No 0 [...] Progress Notes * Alyson Salinas RPh - 02/19/2024 11:05 AM EDT Pt remains admitted to [facility]. Per chart review, expected d/c 02/19. [facility] will follow up. Alyson Salinas Rph, Pharm.D. Clinical Pharmacist [facility] ([facility]) [phone] 02/19/2024,11:07 AM documented in this encounter Plan of Treatment Upcoming Encounters Date Type Department Care Team (Late st Contact Info) Description 02/20/2024 6:45 AM EDT Anticoagulation [facility] Services, Sandra G[facility]mez [address] [place] [address] [place] [address] [facility], [address] [place] [address] 03/18/2024 9:40 AM EDT Office Visit Wound Care, [facility] [address] [place] [address] Hermes Noble MD [address] [place] [address] 04/02/2024 9:40 AM EDT Office Visit Infectious Disease [facility] [address] [place] [id number] Rio Chun, DO [address] [place] [address] 06/06/2024 9:30 AM EDT Office Visit Cardiology, [place] [address] [place] [address] Yas Mckinnon CRNP [address] [place] [address] 07/23/2024 9:30 AM EST Office Visit Radiation Oncology, [facility] [address] [place] [address] Eros Faust MD [address] [place] [address] Health Maintenance Due Date Last Done Comments Albumin/Creatinine Ratio 1963 Hepatitis C Screening 1963 Zoster Vaccines (2 of 3) 06/26/2014 05/01/2014 *SPIROMETRY ONCE FOR ASTHMA-ADULT 07/14/2022 *NEPHROLOGY REFERRAL DUE TO RESISTANT HTN 09/25/2023 COVID-19 Vaccine ( season) 2023 06/01/2023, 06/01/2023, 06/09/2022, Additional history exists Influenza Vaccine (FLU shot) (#1) 2024 05/30/2023, 05/30/2023, 05/18/2022, Additional history exists Depression Screening 09/18/2024 09/18/2023 GFR 02/18/2025 02/19/2024, 01/21, 02/17/2024, Additional history exists DTaP,Tdap,and Td Vaccines (2 - Td or Tdap) 09/14/2026 09/14/2016 Pneumococcal Vaccine: 65+ Years Completed 04/17/2023, 03/09/2016, 08/23/2012 Colonoscopy Discontinued GARDASIL-HPV IMMUNIZATION SERIES Aged Out No longer eligible based on patient's age to complete this topic Hepatitis B Aged Out No longer eligi ble based on patient's age to complete this topic MENINGOCOCCAL (MENACTRA/MENVEO) Aged Out No longer eligible based on patient's age to complete this topic documented as of this encounter Medical Devices Implanted Type Area Rn Operating Room Device Identifier Shelf Expiration Date Model / Serial / Lot Connector Nerve 2mm 15mm - [id number] Implanted:Qty : 1 on 04/27/2023 by Dudley Hinojosa MD at OR [facility] Left: Face [employer] [id number] 12/24/2024 [id number] / / [id number] Alloderm 4x7 Thin 0.8-1.2 (28 Units) - [id number] - [id number] Implanted:Qty : 28 on 04/27/2023 by Dudley Hinojosa MD at OR [facility] Left: Face ABBVIE 12/18/2024 [id number] / [id number] / [id number] Sheeting Monisha 2x3in X.020in - [id number] Implanted:Qty : 1 on 04/27/2023 by Dudley Hinojosa MD at OR [facility] Left: Ear [employer] 09/25/2024 / [id number] Sheeting Monisha 2x3 In X.005in - [id number] Implanted:Qty : 1 on 12/12/2023 by Gurvinder Garcia MD at OR [facility] Left: Ear [employer] 04/05/2026- / [id number] Cath Pwr Picc Solo Inj 4f - [id number] Implanted:Qty : 1 on 01/26/2024 at [facility] BARD : [employer]ESS SYSTEM[employer] [id number] 06/20/2025 [id number] / / [id number] documented as of this encounter Visit Diagnoses Diagnosis PAF (paroxysmal atrial fibrillation) (HCC)- Primary Atrial fibrillation 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 documented as of this encounter Advance Directives Documents on File Type Date Recorded Patient Kiln Cleaner Expl anation POLST 02/16/2024 signed on 12/17 [place] ORDERS FOR LIFE-SUSTAINING TREATMENT POLST 04/26/2023 [place] OR DERS FOR LIFE-SUSTAINING TREATMENT * Full Code (Latest Code Status on File) Date Activated Date Inactivated Comments 02/15/2024 1:57 PM This order ref lects the patients [...] Agents on File Name Relationship Healthcare [facility] Brody Avery Adult Child Power of Radio Station Operator Care Teams Utility Teller Relationship Specialty Start Date End Date Jad Boone MD [address] [facility] [place] [address] PCP - General Family Medicine 09/20/23 documented as of this encounter
--- OUTSIDE RECORDS SUMMARY | 2024-04-25 23:49 | External Medical Summary ---
Author Name Unknown Address Unknown Organization [id number]:LABORATORY [facility] - [address] [place] [address] Laboratory Report Ordering Provider Test Date Status MARJORIEWHITE 02/16/2024 05:26:00 Final Observation Date Value Abnormality Reference (Units ) Status WBC, Total 02/16/2024 05:26:00 8.59 4.00-10.80 (K/uL) Final RBC 02/16/2024 05:26:00 3.41 4.50-5.25 (M/uL) Final Hemoglobin 02/16/2024 05:26:00 9.2 Below low normal 14.0-16.8 (g/dL) Final HCT 02/16/2024 05:26:00 29.6 Below low normal 40.0-48.4 (%) Final MCV 02/16/2024 05:26:00 86.8 82.0-99.5 (fL) Final MCH 02/16/2024 05:26:00 27.0 27.0-34.0 (pg) Final MCHC 02/16/2024 05:26:00 31.1 32.0-36.0 (g/dL) Final RDW 02/16/2024 05:26:00 17.2 11.5-15.5 (%) Final Platelets 02/16/2024 05:26:00 104 Below low normal 140-400 (K/uL) Final MPV 02/16/2024 05:26:00 10.7 6.6-11.1 (fL) Final Nucleated erythrocytes/100 leukocytes [Ratio] in Blood by Automated count 02/16/2024 05:26:00 0 <=0 (/100 WBCs) Final Performing Location [facility] - [address] [place] [address]
--- OUTSIDE RECORDS SUMMARY | 2024-04-25 23:49 | External Medical Summary ---
Author Name Unknown Address Unknown Organization [id number]:[facility]ORY [facility] - [address] [place] [address] Laboratory Report Ordering Provider Test Date Status ARTURO ESQUIVEL 02/21/2024 04:40:00 Final Observation Date Value Abnormality Reference (Units ) Status WBC, Total 02/21/2024 04:40:00 7.39 4.00-10.80 (K/uL) Final RBC 02/21/2024 04:40:00 3.63 4.50-5.25 (M/uL) Final Hemoglobin 02/21/2024 04:40:00 9.8 Below low normal 14.0-16.8 (g/dL) Final HCT 02/21/2024 04:40:00 31.3 Below low normal 40.0-48.4 (%) Final MCV 02/21/2024 04:40:00 86.2 82.0-99.5 (fL) Final MCH 02/21/2024 04:40:00 27.0 27.0-34.0 (pg) Final MCHC 02/21/2024 04:40:00 31.3 32.0-36.0 (g/dL) Final RDW 02/21/2024 04:40:00 17.2 11.5-15.5 (%) Final Platelets 02/21/2024 04:40:00 104 Below low normal 140-400 (K/uL) Final MPV 02/21/2024 04:40:00 9.9 6.6-11.1 (fL) Final Nucleated erythrocytes/100 leukocytes [Ratio] in Blood by Automated count 02/21/2024 04:40:00 0 <=0 (/100 WBCs) Final Performing Location [facility] - [address] [place] [address]
--- OUTSIDE RECORDS SUMMARY | 2024-04-25 23:49 | External Medical Summary | Summary of Care ---
Author Name Unknown Organization [facility] Address [address] [place] [address] Phone [phone] Care Team Providers Care Derrick Helper Name Role Phone Jad Boone MD Primary Care Provider Reason for Visit * Reason Comments Neuro Deficit/Stroke/TIA * Auth/Cert Specialty Diagnoses / Procedures Referred By Contnisha t Referred To Contact [facility] [address] [place] [address] Phone: [phone] Emergency Medicine [facility] [address] [place] [address] Referral ID Status Reason Start Date Expiration Date Visits Re quested Visits Authorized [id number] Encounter Details Date Type Department Care Team (Latest Contact Info) Description 02/15/2024 9:23 AM EDT - 02/21/2024 6:09 PM EDT Hospital Encounter 5A [facility], [facility] 5th Floor [address], [place] [id number] Cooper Phoenix MD [address], [place] [id number] Darian Haq DO 400 [facility] Hospitalist Services [place], [place] [id number] Parish Raymond DO 400 [facility] [place], [place] [id number] Henry Vanegas MD 400 [facility] [place] [address] Various: KRAVS,EKG Discharge Disposition: SNF Allergies Active Allergy Reactions Criticality Noted Date Comments Bee Venom Hives High 03/14/2017 documented as of this encounter (statuses as of 02/22/2024) Medications Medication Sig Dispensed Refills Start Date [...] or Fever >38C(100.5F). 30 Tablet 4 Active Warfarin Sodium 7.5 MG Oral Tablet (Coumadin) Take 1 Tablet by mouth every evening. 30 Tablet 4 024 Active Chlorhexidine Gluconate Cloth 2 % External Pad Apply to wound Do not start before February 22, 2024. 30 Pad 1 4 Active amLODIPine Besylate 10 MG Oral Tablet (Norvasc) Take 1 Tablet by mouth in the morning. 30 Tablet 4 024 Active Miconazole Nitrate 2 % External Powder (Remedy) Apply topically to affected area 2 times a day. Apply to affected area 71 g 4 Active Vitamin D3 1.25 MG (46769 UT) Oral Capsule Take 1 Capsule by mouth once a week. Every Monday 12 Capsule 4 Active DAPTOmycin IV IV (AMBULATORY) Administer 750 mg intravenously every other day for 15 days. 5.25 g 4 024 Active meropenem IV IV (AMBULATORY) Administer 500 mg intravenously in the morning and 500 mg at noon and 500 mg before bedtime. Do all this for 15 days. 22.5 g 4 024 Active oxyCODONE HCl 5 MG Oral Capsule (Oxy IR) Take 1 Capsule by mouth every 6 hours as needed for Pain, Moderate or Pain, Severe. 10 Tablet 4 Active Vitamin D3 1.25 MG (98659 UT) Oral Capsule Take 1 Capsule by mouth once a week. 12 Capsule 3 3 Discontinued Atorvastatin Calcium 20 MG Oral Tablet (Lipitor)Indicat ions:Coronary artery disease involving che[place]nak coronary artery of [place] heart without angina pectoris TAKE 1 TABLET, BY MOUTH, IN THE MORNING. 90 Tablet 1 3 024 Discontinued Acetaminophen 325 MG Oral Tablet (Tylenol) Take 2 Tablets by mouth every 6 hours as needed for Pain, Mild. 30 Tablet 3 024 Discontinued Lisinopril 10 MG Oral Tablet (Prinivil)Indica tions:Chronic heart failure with preserved ejection fraction (HFpEF) ([facility]) Take 1 Tablet by mouth in the morning. 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 103.317 mL 4 Discontinued oxyCODONE HCl 5 MG Oral Capsule (Oxy IR) Take 1 Capsule by mouth every 6 hours as needed. Discontinued amLODIPine Besylate 2.5 MG Oral Tablet (Norvasc) Take 1 Tablet by mouth in the morning. 30 Tablet 4 024 Discontinued vancomycin IV IV (AMBULATORY) Administer 1,000 mg intravenously in the morning and 1,000 mg in the evening. 80 g 4 Discontinued cefepime IV IJ (AMBULATORY) Administer 2 g intravenously in the morning and 2 g at noon and 2 g before bedtime. 240 g 4 Discontinued Furosemide 40 MG Oral Tablet (Lasix) Take 1 Tablet by mouth in the morning. 4 024 Discontinued Warfarin Sodium 5 MG Oral Tablet (Coumadin)Indica tions:PAF (paroxysmal atrial fibrillation) ([facility]) Take 1 tablet by mouth on Monday and 1.5 tablet by mouth S,S,M,T,W,TH 4 024 Discontinued documented as of this encounter (statuses as of 02/22/2024) Active Problems Problem Noted Date Diagnosed Date [...] fibrillation) 10/18/2018 Coronary artery disease invo lving che[place]nak coronary artery without angina pectoris 01/07/2015 half-way current use of anticoagulant therapy 0 05/01/2014 Overview: ICD-10 update of inactive term Heart failure, systolic, due to CAD 08/28/2012 Overview: ECHO 2011 - Segmental wall abnormality, severe hypokinesis of anterior septum, anterior wall, apex, distal inferior septum, distal inferior wall, and distal posterior wall EF 33% Mass of left parotid gland documented as of this encounter (statuses as of 02/22/2024) Resolved Problems Problem Noted Date Diagnosed Date [...] as of this encounter (statuses as of 02/22/2024) Immunizations Name Administration Dates Next Due COVID-19 [...] Sign Reading Time Taken Comments Blood Pressure 137/63 02/21/2024 3:36 PM EDT Pulse 60 02/21/2024 3:41 PM EDT Temperature 36.1 C (97 F) 02/21/2024 3:36 PM EDT Respiratory Rate 18 02/21/2024 3:36 PM EDT Oxygen Saturation 94% 02/21/2024 3:36 PM EDT Inhaled Oxygen Concentration - - Weight 105.6 kg (232 lb 12.8 oz) 02/21/2024 6:01 AM EDT Height 180.3 cm (5' 11") 02/15/2024 9:24 AM EDT Body Mass Index 32.47 02/15/2024 9:24 AM EDT documented in this [...] No 01/24/2024 documented as of this encounter Discharge Summaries * Darian Haq, - 02/21/2024 4:45 PM EDT [address] [address] Admission Date: 02/15/2024 Discharge Date: 02/21/2024 RECOMMENDED TO DO FOR NEXT PROVIDER(S): Weekly BMP while on antibiotics PT INR on Monday per usual process Hold statin until daptomycin completed Continue therapies May need additional titration of antihypertensive medications, avoid nephrotoxins REASON(S) FOR MEDICATION CHANGE(S): Antibiotics changed due to acute kidney injury DISPOSITION ON DISCHARGE: retirement: [place] Active Hospital Problems Diagnosis *Principal Diagnosis - CLAUDY (acute kidney injury) (HCC) PICC (peripherally inserted central catheter) in place Dysarthria Expressive aphasia 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 Patient presented to the emergency room with some dysarthria and expressive aphasia. Patient recently had extensive surgical intervention anddissection of the area behind his left ear in his being treated for osteomyelitis. [facility] being [facility] when they noticed these changes in his ability to speak. In the emergency roomstroke work was unremarkable however noted significant acute kidney injury. He was referred for further evaluation. HOSPITAL COURSE (focused): Patient was admitted to the hospital. He was continued on his antibiotics for his osteomyelitis. Hewas given IV hydration. Underwent additional stroke workup. Patient could not undergo MRI due to positioning issues. However his dysarthria and expressive aphasia seemed to improve spontaneously. He was INR was monitored and therapeutic through his hospitalization. Acute stroke ruled out. Nephrotoxi ns were held Nephrology consultation was obtained. He was concerned the patient may have acute kidney injury due to the vancomycin and cefepime. He was transitioned to meropenem and daptomycin. He tolerated this transitioned well. His renal dysfunction plateaued. Additional medication and dosage adjustments were made to his antihypertensive. Further a more in-depth review of the patient's historyseems like he has some type of chronic dysarthria. Suspect patient may have had exacerbation of this chronic issue with his acute medical issues. He was fully anticoagulated with warfarin for historyof paroxysmal atrial fibrillation. He will continue on this treatment. Coordinate returned to [facility] for his ongoing rehabilitation, Wound Care and IV antibiotics. Operations & Procedures: none Complications: none significant Significant Lab and Imaging Results: Creatinine 2.7, INR 2.7 Results Pending at Discharge: Lab Results Pending at Discharge: CK Routine BASIC METABOLIC PANEL Routine PT INR Routine MEDICATION UPDATES AT DISCHARGE CONTINUE taking these medications but follow up with your Primary Care Physician (PCP). INSTRUCTIONS Acetaminophen 325 MG Tablet Commonly known as: Tylenol Notes to patient: Used to ease pain and fever. Take 2 Tablets by mouth every 6 hours as needed for Pain, Mild. amLODIPine 2.5 MG Tablet Commonly known as: Norvasc Notes to patient: Used to treat high blood pressure and some types of chest pain Take 1 Tablet by mouth in the morning. atorvaSTATin 20 MG Tablet Commonly known as: Lipitor Notes to patient: Used to lower bad cholesterol, lower triglycerides, raise good cholesterol (HDL),and slow the progression of heart disease TAKE 1 TABLET, BY MOUTH, IN THE MORNING. Bisacodyl Laxative 10 MG suppository Generic drug: Bisacodyl Notes to patient: Used to treat constipation Insert 1 suppository rectally every 72 hours as needed for constipation if MoM is ineffective (bowel Protocol) cefepime IV (AMBULATORY) Commonly known as: Maxipime Notes to patient: Used to treat and prevent infections Administer 2 g intravenously in the morning and 2 g at noon and 2 g before bedtime. DAKINS 1/2 strength (0.25%) 0.25 % Soln Apply topically to affected area every 12 hours. Wnjfmtnss-Rmzeimko-Yatnux Alc 2-14-10.5 % Crea Apply to both lower extremities once a day EPINEPHrine (anaphylaxis) 0.3 MG/0.3ML Soaj injection Notes to patient: Used to treat a very bad allergic response Inject 1 dose intramuscularly as needed for anaphylaxis (H/O bee sting allergy) Fleet Enema Enem Notes to patient: Used to treat consitpation, clean out the GI (gastrointestinal) tract, and prevent low phosphate levels Insert 1 dose rectally every 72 hours as needed for constipation *if Dulcolax is ineffective* (bowel protocol) Lasix 40 MG Tablet Generic drug: Furosemide Notes to patient: Used to get rid of extra fluid and treat high blood pressure (Diuretic/water pill) Take 1 Tablet by mouth in the morning. Lisinopril 10 MG Tablet Commonly known as: Prinivil Notes to patient: Used to treat high blood pressure, heart failure (weak heart), and to help heart function after a heart attack Take 1 Tablet by mouth in the morning. metoprolol succinate XL 25 MG Tb24 Commonly known as: Toprol XL Notes to patient: Used to treat high blood pressure. Take 1 Tablet by mouth in the morning. milk of magnesia 400 MG/5ML suspension Notes to patient: Used to treat constipation, heartburn, and upset stomach Take 30 mL by mouth daily as needed for Constipation. MiraLax powder Generic drug: Polyethylene Glycol 3350 Notes to patient: Used to treat constipation Take 17 g by mouth daily as needed for Constipation. Multivitamin Adult Tabs Notes to patient: used to provide vitamins that are not taken in through the diet. Multivitamins are also used to treat vitamin deficiencies (lack of vitamins) caused by illness, , poor nutrition, digestive disorders, and many other conditions Take by mouth every evening. Ofloxacin 0.3 % otic solution Commonly known as: Floxin Notes to patient: Used to treat eye infections Administer 5 Drops into ears in the morning and 5 Drops before bedtime. omeprazole 20 MG Cpdr Commonly known as: PriLOSEC Notes to patient: Used to treat or prevent GI (gastrointestinal) ulcers, gastroesophageal reflux (GERD, acid reflux), and heartburn Take 1 Capsule by mouth in the morning. oxyCODONE 5 MG Capsule Commonly known as: Oxy IR Notes to patient: Used to ease pain Take 1 Capsule by mouth every 6 hours as needed. Senna S 8.6-50 MG per tablet Generic drug: senna-docusate Notes to patient: Used to treat constipation Take 1 Tablet by mouth daily as needed for Constipation. vancomycin IV (AMBULATORY) Commonly known as: Vancocin Notes to patient: Used to treat infections caused by bacteria Administer 1,000 mg intravenously in the morning and 1,000 mg in the evening. Ventolin HFA 108 (90 Base) MCG/ACT Aers Notes to patient: Used to open the airways in lung diseases where spasm may cause breathing problems and prevent breathing problems that happen with exercise Inhale 2 Puffs by mouth every 4 hours as needed for Shortness of Breath. Vitamin D3 1.25 MG (67767 UT) Capsule Notes to patient: Used to treat or prevent vitamin D deficiency Take 1 Capsule by mouth once a week. Warfarin Sodium 5 MG Tablet Commonly known as: Coumadin Notes to patient: Used to treat or prevent blood clots and lower the chance of heart attack, stroke, and Take as directed. If you are unsure how to take this medication, talk to your nurse or doctor. Original instructions: Take 1 tablet by mouth on Monday and 1.5 tablet by mouth S,S,M,T,W,TH SCHEDULED FOLLOW-UP: Future Appointments Appt Date/Time Provider Department 02/23/2024 6:45 AM [facility], [place] 03/18/2024 9:40 AM Hermes Noble MD Wound Care, [facility] 04/02/2024 9:40 AM Rio Chun DO Infectious Disease, [facility] 06/06/2024 9:30 AM [facility] 07/23/2024 9:30 AM Eros Faust MD Radiation Oncology, [facility] Other Information Indwelling Devices: LINES ALL Duration Power PICC Single Lumen Right;Upper Arm 25 days Vital Signs (last recorded): Most Recent Systolic BP: 137 mmHg (02/21/24 153) Most Recent Diastolic BP: 63 mmHg (02/21/24 153) Pulse: 65 (02/21/24 153) Resp: 18 (02/21/24 153) Most Recent Temperature: 36.11 C (02/21/24 153) Weight: 105.6 kg (232 lb 12.8 oz) (02/21/24 0601) SpO2: 94 % (02/21/24 153) Allergies: Bee venom Activity: as tolerated Diet: cardiac diet Code Status: Full Code Condition on Discharge: good Isolation status: None Cognition: normal HOSPITAL CONSULTS ORDERED: WOUND CONSULT IP ADULT PHYSICAL THERAPY CONSULT IP ADULT OCCUPATIONAL THERAPY CONSULT IP CARE MANAGEMENT CONSULT IP NEPHROLOGY CONSULT IP REFERRING PHYSICIAN: Ref: [id number]] NO STREET ADDRESS AVAILABLE None (office) None (fax) PRIMARY CARE PROVIDER: PCP: Jad Boone MD [address] / [place] [address] (office) [phone] (fax) Note: To contact a physician responsible for this patients hospital care, please call [employer] [phone]. I spent a total of 42 minutes coordinating, documenting, and providing care for this patient excluding time spent in the performance of separately billed services. documented in this encounter Discharge Instructions * Discharge Instr - AVS* Darian Haq DO - 02/21/2024 4:45 PM EDT Discharge Date: 02/21/2024 Brief summary of inpatient care: Stephen Varela was admitted to [facility] on 02/15/2024 with dysarthria and trouble speaking from [facility] . The primary diagnosis at discharge was suspect exacerbation of chronic speech issues possibly due to hypotension, acute kidney injury due to antibiotics. Stephen Varela is being discharged to [facility]. The Hospital Medicine physician(s) at the time of discharge included: Darian Haq DO To reach this Provider Monday through Monday (8:00 AM to 4:30 PM) for any questions or test results: Call [phone] For after-hours concerns: Call [phone] and have your provider paged, or the provider storage solutions architect for the Department of Hospital Medicine paged. Inpatient test results pending: none Operations & Procedures: none Code Status: Full Code Advance Directive Documentation: Advance Directive Does the Patient have an Advance Directive? No Diet: Heart healthy diet Activity: As tolerated Stephen should continue the following therapies: Physical Therapy, Occupational Therapy, and Speech Therapy PICC (Peripherally Inserted Catheter) Care: Prevent Infection. Use good hand hygiene by following the guidelines on this sheet. Don't touch thecatheter or dressing unless you need to. Always clean your hands before and after you come in contact with any part of the PICC. To wash your hands with soap and water: Wet your hands with warm water. (Avoid hot water, which can cause skin irritation when you wash your hands often) Apply enough soap to cover the entire surface of your hands, including your fingers. Rub your hands together briskly for at least 15 seconds. Make sure to rub the front and back of each hand up to the wrist, your fingers and fingernails, between the fingers, and each thumb. Rinse your hands with warm water. Dry your hands completely with a new, unused paper towel. Don't use a cloth towel or other reusabletowel. These can harbor germs. Use the paper towel to turn off the faucet, then throw it away. If you're in a bathroom, also use apaper towel to open the door instead of touching the handle. Keep the PICC dry. The catheter and dressing must stay dry. Don't go swimming, use a tub, or do other things that could get the PICC wet. When it comes to bathing, also avoid getting the catheter wet. You may use plastic wrap and tape to keep the catheter and dressing dry. You may also ask the homehealth nurse what products they may have to keep things dry. If the dressing does get wet, [facility] right away for help. Avoid activities or exercises that require major use of the arm. Additional Precautions: none Isolation Status: None Mentation at Discharge: normal Future Studies Required: BMP: date - weekly while on antibiotics Respiratory Support at Discharge: none PRIMARY CARE PROVIDER: PCP: Jad Boone MD [address] [facility] / [place] [phone] (office) [phone] (fax) Special Instructions: End date for medications including antibiotics and anticoagulants: Continue antibiotics through 03/07/2024 Please have the patient return to the Emergency Department for any of the following: chest pain, chest pressure, chest tightness, difficulty breathing, or fever, chills, severe confusion. The patient should not smoke or use tobacco products in any way! {Please sign prescriptions for all controlled substances that the patient may need to take while inthe inpatient facility. Once complete, this statement can be deleted.} * Pharmacy [facility] - [facility]S* Ines Mcgarry, [facility] - 02/16/2024 11:24 AM EDT Warfarin dosing instructions for after discharge: You should have a prescription for Warfarin 7.5 mg tablets. Please take the following doses of warfarin by mouth after Discharge: Date Dose using warfarin 7.5 mg Tablets 7/3 Take 1 tablets = 7.5 mg 7/4 Take 1 tablets = 7.5 mg 7/5 Take 1 tablets = 7.5 mg 7/6 Take 1 tablets = 7.5 mg 7/7 Take 1 tablets = 7.5 mg The anticoagulation clinic pharmacist will provide you with further dosing and appointment instructions. If you have any questions regarding your anticoagulation therapy, please Contact Anticoagulation Clinic at [phone] or . Please share the following information with your provider: You were continued on WARFARIN for Indication for Anticoagulation: Atrial fibrillation/flutter. This is an Existing diagnosis. Your Target INR: 2.0-3.0(Prevention of systemic embolism) . Your Anticipated Duration of Therapy: Lifetime . Because you have been placed on a blood thinner, your therapy will need to be monitored on a regular basis. You will have your Anticoagulation Managed By: Anticoagulation Clinic . While you were in the hospital, you medication doses received and your corresponding labs were: INR Date/Time Value Ref Range Status 02/21/2024 04:40 AM 2.7 (H) 0.8 - 1.2 Final 02/20/2024 04:15 AM 2.5 (H) 0.8 - 1.2 Final 02/19/2024 04:15 AM 2.4 (H) 0.8 - 1.2 Final HGB Date/Time Value Ref Range Status 02/21/2024 04:40 AM 9.8 (L) 14.0 - 16.8 g/dL Final HCT Date/Time Value Ref Range Status 02/21/2024 04:40 AM 31.3 (L) 40.0 - 48.4 % Final PLT Date/Time Value Ref Range Status 02/21/2024 04:40 AM 104 (L) 140 - 400 K/uL Final Warfarin Administrations (last 720 hours) Date/Time Action Medication Dose 02/20/242054 Given Warfarin Sodium (Coumadin) tab 7.5 mg 7.5 mg 02/19/242012 Given Warfarin Sodium (Coumadin) tab 10 mg 10 mg 02/18/242139 Given Warfarin Sodium (Coumadin) tab 7.5 mg 7.5 mg 02/17/242107 Given Warfarin Sodium (Coumadin) tab 7.5 mg 7.5 mg 02/16/242157 Given Warfarin Sodium (Coumadin) tab 7.5 mg 7.5 mg documented in this encounter Progress Notes * Ines Mcgarry RP - 02/21/2024 5:09 PM EDT PHARMACY DISCHARGE MEDICATION RECONCILIATION REVIEW [address] [address] Name: Stephen Varela Location: [facility] -5105/W Date: 02/21/2024 Time: 5:09 PM This discharge medication reconciliation was reviewed by a pharmacist and no corrections or interventions were required. * Darian Haq DO - 02/21/2024 4:30 PM EDT Images from the original note were not included. [facility] -5105/W INTERVAL HISTORY: Patient eager to be discharged. Concern that doing wound changes only once or twice a day. Objective Physical Exam Most Recent Vital Signs: BP: 137 mmHg/63 mmHg (02/21/24 1536) Pulse: 65 (02/21/24 1536) Resp: 18 (02/21/24 153) Temp: 36.11 C (02/21/24 153) Temp Summary: Temp Min: 36.1 C (97 F) Max: 36.7 C (98.1 F) SpO2: 94 % (02/21/24 153) O2 flow rate: Supplemental O2 Delivery: Room Air, None (02/21/24 1536) Constitutional: no acute distress HEENT: Dressing over left ear clean and dry CV: Normal S1-S2, regular Chest: normal respiratory effort, no wheezes Extremities: no edema Neuro: alert, oriented to person, place, and time Power PICC Single Lumen Right;Upper Arm (Active) Number of days: 26 STUDIES: Encounter Orders Labs and other studies reviewed with pertinent findings noted below: Creatinine 2.7, stable INR 2.7 CBC stable Assessment and Plan IMPRESSION : Principal Problem: CLAUDY (acute kidney injury) (HCC) Active Problems: Heart failure, systolic, due to CAD (HCC) PAF (paroxysmal atrial fibrillation) (HCC) Essential hypertension with goal blood pressure less than 140/90 Dyslipidemia, goal LDL below 70 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) PICC (peripherally inserted central catheter) in place Dysarthria Expressive aphasia Resolved Problems: Encephalopathy acute DIFFERENTIAL AND PLAN: Final recommendations for daptomycin and meropenem obtain from Infectious Disease [place] just increased, continue to monitor blood pressure Continue Wound Care Coordinating returned to [facility] for ongoing antibiotics and care PHARMACOLOGIC VTE PROPHYLAXIS: warfarin check daily dose (PHARMACIST MANAGED) Warfarin Sodium CODE STATUS: Full Code EXPECTED DISCHARGE DATE: 02/21/2024 * Noé Zelaya, [facility] - 02/21/2024 5:55 AM EDT PHARMACY ANTICOAGULATION WARFARIN (Coumadin) Assessment [address] [address] Name: Stephen Varela Location: [facility] 5A-5105/W Date: 02/21/2024 Time: 5:55 AM Stephen Varela is a 78 year old male admitted for CLAUDY (acute kidney injury) (HCC). Pharmacy was consulted for warfarin dosing and monitoring. Anticoagulation Therapy Goals Indication for Anticoagulation: Atrial fibrillation/flutter Anticipated Duration of Therapy: Lifetime Target INR: 2.0-3.0(Prevention of systemic embolism) Risk factors for anticoagulation therapy: Adherence concerns, Age>65, Cancer Prior to Admission Management Anticoagulation Managed By: Anticoagulation Clinic Tablet Size/Strength: 5 mg Anticoagulation Regimen: 10 mg Mon and Wed. 7.5 mg all other days Anticoagulation Episode Summary Current INR goal: 2.0-3.0 TTR: 42.0% (10.5 mo) Next INR check: 02/19/2024 INR from last check: 2.4 (02/19/2024) Most recent INR: 2.7 (02/21/2024) Weekly max warfarin dose: Target end date: Indefinite INR check location: Preferred lab: Send INR reminders to: Indications PAF (paroxysmal atrial fibrillation) (HCC) (Primary) [I48.0] Atrial fibrillation (HCC) (Resolved) [I48.91] Comments: Call patient and fax orders to [place] at [phone] Anticoagulation Care Providers Provider Role Specialty Phone number Jad Boone MD Referring Family Medicine [phone] Labs INR Date/Time Value Ref Range Status 02/21/2024 04:40 AM 2.7 (H) 0.8 - 1.2 Final 02/20/2024 04:15 AM 2.5 (H) 0.8 - 1.2 Final 02/19/2024 04:15 AM 2.4 (H) 0.8 - 1.2 Final HGB Date/Time Value Ref Range Status 02/21/2024 04:40 AM 9.8 (L) 14.0 - 16.8 g/dL Final HCT Date/Time Value Ref Range Status 02/21/2024 04:40 AM 31.3 (L) 40.0 - 48.4 % Final PLT Date/Time Value Ref Range Status 02/21/2024 04:40 AM 104 (L) 140 - 400 K/uL Final Objective Warfarin Administrations (last 720 hours) Date/Time Action Medication Dose 02/20/242054 Given Warfarin Sodium (Coumadin) tab 7.5 mg 7.5 mg 02/19/242012 Given Warfarin Sodium (Coumadin) tab 10 mg 10 mg 02/18/242139 Given Warfarin Sodium (Coumadin) tab 7.5 mg 7.5 mg 02/17/242107 Given Warfarin Sodium (Coumadin) tab 7.5 mg 7.5 mg 02/16/242157 Given Warfarin Sodium (Coumadin) tab 7.5 mg 7.5 mg Assessment & Plan Assessment Dietary Assessment: Minimal/decreased PO intake Today's INR : Therapeutic Does the patient have any medication interactions: No Are there bleeding concerns with the patient: No Does the patient have any upcoming procedures: No Plan Warfarin Plan: Give Warfarin Specify Warfarin Dose: 7.5 mg by mouth tonight. Is the patient receiving a Bridging Agent: No Warfarin Patient Education : Not needed Reason Education Not Needed: Followed by ACC Noé Zelaya RPh * Henry Vanegas MD - 02/20/2024 12:41 PM EDT Images from the original note were not included. [facility] 5A-5105/W INTERVAL HISTORY: 78 YO M with left preauricular squamous cell carcinoma, chronic HFpEF(55% 12/12), atrial fibrillation anticoagulated on warfarin, DLD, HTN, and obesity who was admitted with CLAUDY in setting of expressive aphasia and dysarthric speech. No changes this morning. Intake/Output Summary (Last 24 hours) at 02/20/2024 1241 Last data filed at 02/20/2024 0945 Gross per 24 hour Intake 509.17 ml Output 675 ml Net -165.83 ml Objective Physical Exam Most Recent Vital Signs: BP: 170 mmHg/82 mmHg (02/20/24706) Pulse: 74 (61 per tele strip) (02/20/24706) Resp: 18 (02/20/24706) Temp: 36.78 C (02/20/24706) Temp Summary: Temp Min: 36.2 C (97.2 F) Max: 36.8 C (98.2 F) SpO2: 96 % (02/20/24706) O2 flow rate: Supplemental O2 Delivery: Room Air, None (02/20/24844) Physical Exam Vitals reviewed. Constitutional: Appearance: He is not ill-appearing or toxic-appearing. Cardiovascular: Rate and Rhythm: Normal rate. Heart sounds: No friction rub. No gallop. Pulmonary: Effort: Pulmonary effort is normal. Breath sounds: No wheezing, rhonchi or rales. Abdominal: General: Abdomen is flat. Bowel sounds are normal. There is no distension. Tenderness: There is no abdominal tenderness. There is no guarding. Musculoskeletal: Right lower leg: No edema. Left lower leg: No edema. Skin: Comments: Dressing c/d/i Neurological: Mental Status: He is alert. Power PICC Single Lumen Right;Upper Arm (Active) Number of days: 25 STUDIES: Encounter Orders Labs and other studies reviewed with pertinent findings noted below: Lab results within last 7 days (see chart for full results) Units 02/20/24 0415 02/19/24 0822 02/18/24 0451 HGB g/dL 9.8* 10.4* 9.7* HCT % 31.1* 32.0* 31.1* WBC K/uL 7.25 8.24 7.37 PLT K/uL 105* 108* 93* Lab results within last 7 days (see chart for full results) Units 02/20/24 0415 02/19/24 0823 02/18/24 0451 Sodium mmol/L 142 142 141 Potassium mmol/L 4.0 4.1 3.7 Chloride mmol/L 108* 107 107 CO2 mmol/L 23 22 23 BUN mg/dL 47* 47* 48* Creatinine mg/dL 2.7* 2.6* 2.5* Lab results within last 7 days (see chart for full results) Units 02/16/24 0526 02/15/24 1103 Magnesium mg/dL 2.1 2.1 ] Lab results within last 7 days (see chart for full results) Units 02/16/24 0526 02/15/24 1103 02/15/24 0635 Protein g/dL 6.7 7.2 7.1 Bilirubin, Total mg/dL 0.3 0.3 0.3 Alkaline Phosphatase U/L 77 91 90 AST U/L 15 16 20 ALT U/L 11 12 13 Lab results within last 7 days (see chart for full results) Units 02/15/24 1103 Lactate mmol/L 0.9 Recent Cultures (2 Weeks) No lab values to display. 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 * DIFFERENTIAL AND PLAN: CLAUDY. Likely ATN suspected to be secondary vancomycin. Cr continues to uptrend. Appreciate ID input for alternative antibiotic regimen. Now on Dapto/Kaden. Will continue for today.Will need final ID recs prior to discharge once his renal function improves. His neurological symptoms seem to be resolved. Will continue to monitor. Monitor BP control. Amlodipine was increased. However SBP continues elevated. Will increase amlodipine. MRI is not possible due to patient's positioning restrictions. [employer] meds where appropriate Follow AM labs PHARMACOLOGIC VTE PROPHYLAXIS: warfarin check daily dose (PHARMACIST MANAGED) Warfarin Sodium CODE STATUS: Full Code EXPECTED DISCHARGE DATE: 02/23/2024 I spent a total of 35 minutes coordinating, documenting, and providing care for this patient excluding time spent in the performance of separately billed services. * Noé Zelaya, [facility] - 02/20/2024 6:05 AM EDT PHARMACY ANTICOAGULATION WARFARIN (Coumadin) Assessment [address] [address] Name: Stephen Varela Location: [facility] 5A-5105/W Date: 02/20/2024 Time: 6:05 AM Stephen Varela is a 78 year old male admitted for CLAUDY (acute kidney injury) (HCC). Pharmacy was consulted for warfarin dosing and monitoring. Anticoagulation Therapy Goals Indication for Anticoagulation: Atrial fibrillation/flutter Anticipated Duration of Therapy: Lifetime Target INR: 2.0-3.0(Prevention of systemic embolism) Risk factors for anticoagulation therapy: Adherence concerns, Cancer Prior to Admission Management Anticoagulation Managed By: Anticoagulation Clinic Tablet Size/Strength: 5 mg Anticoagulation Regimen: 10 mg Mon and Wed. 7.5 mg by mouth all other days. Anticoagulation Episode Summary Current INR goal: 2.0-3.0 TTR: 42.2% (10.5 mo) Next INR check: 02/19/2024 INR from last check: 2.4 (02/19/2024) Most recent INR: 2.5 (02/20/2024) Weekly max warfarin dose: Target end date: Indefinite INR check location: Preferred lab: Send INR reminders to: Indications PAF (paroxysmal atrial fibrillation) (HCC) (Primary) [I48.0] Atrial fibrillation (HCC) (Resolved) [I48.91] Comments: Call patient and fax orders to [place] [facility] at [phone] Anticoagulation Care Providers Provider Role Specialty Phone number Jad Boone MD Referring Family Medicine [phone] Labs INR Date/Time Value Ref Range Status 02/20/2024 04:15 AM 2.5 (H) 0.8 - 1.2 Final 02/19/2024 04:15 AM 2.4 (H) 0.8 - 1.2 Final 02/18/2024 04:51 AM 2.3 (H) 0.8 - 1.2 Final HGB Date/Time Value Ref Range Status 02/20/2024 04:15 AM 9.8 (L) 14.0 - 16.8 g/dL Final HCT Date/Time Value Ref Range Status 02/20/2024 04:15 AM 31.1 (L) 40.0 - 48.4 % Final PLT Date/Time Value Ref Range Status 02/20/2024 04:15 AM 105 (L) 140 - 400 K/uL Final Objective Warfarin Administrations (last 720 hours) Date/Time Action Medication Dose 02/19/242012 Given Warfarin Sodium (Coumadin) tab 10 mg 10 mg 02/18/242139 Given Warfarin Sodium (Coumadin) tab 7.5 mg 7.5 mg 02/17/242107 Given Warfarin Sodium (Coumadin) tab 7.5 mg 7.5 mg 02/16/242157 Given Warfarin Sodium (Coumadin) tab 7.5 mg 7.5 mg Assessment & Plan Assessment Dietary Assessment: Minimal/decreased PO intake Today's INR : Therapeutic Does the patient have any medication interactions: No Are there bleeding concerns with the patient: No Does the patient have any upcoming procedures: No Plan Warfarin Plan: Give Warfarin Specify Warfarin Dose: 7.5 mg by mouth tonight. Is the patient receiving a Bridging Agent: No Warfarin Patient Education : Not needed Reason Education Not Needed: Followed by ACC Noé Zelaya RPh * Henry Vanegas MD - 02/19/2024 10:33 AM EDT Images from the original note were not included. [facility] 5A-5105/W INTERVAL HISTORY: 78 YO M with left preauricular squamous cell carcinoma, chronic HFpEF(55% 12/12), atrial fibrillation anticoagulated on warfarin, DLD, HTN, and obesity who was admitted with CLAUDY in setting of expressive aphasia and dysarthric speech. No changes this morning. Intake/Output Summary (Last 24 hours) at 02/19/2024 1033 Last data filed at 02/19/2024 0920 Gross per 24 hour Intake 529.93 ml Output 1375 ml Net -845.07 ml Objective Physical Exam Most Recent Vital Signs: BP: 183 mmHg/84 mmHg (02/19/24 07) Pulse: 71 (02/19/24 0855) Resp: 16 (02/18/24 2249) Temp: 36.39 C (02/19/24714) Temp Summary: Temp Min: 36 C (96.8 F) Max: 36.9 C (98.4 F) SpO2: 92 % (02/19/24714) O2 flow rate: Supplemental O2 Delivery: Room Air, None (02/19/24814) Physical Exam Vitals reviewed. Constitutional: Appearance: He is not ill-appearing or toxic-appearing. Cardiovascular: Rate and Rhythm: Normal rate. Heart sounds: No friction rub. No gallop. Pulmonary: Effort: Pulmonary effort is normal. Breath sounds: No wheezing, rhonchi or rales. Abdominal: General: Abdomen is flat. Bowel sounds are normal. There is no distension. Tenderness: There is no abdominal tenderness. There is no guarding. Musculoskeletal: Right lower leg: No edema. Left lower leg: No edema. Skin: Comments: Dressing c/d/i Neurological: Mental Status: He is alert. Power PICC Single Lumen Right;Upper Arm (Active) Number of days: 24 STUDIES: Encounter Orders Labs and other studies reviewed with pertinent findings noted below: Lab results within last 7 days (see chart for full results) Units 02/19/24 0822 02/18/24 0451 02/17/24 0631 HGB g/dL 10.4* 9.7* 10.1* HCT % 32.0* 31.1* 32.4* WBC K/uL 8.24 7.37 8.95 PLT K/uL 108* 93* 100* Lab results within last 7 days (see chart for full results) Units 02/19/24 0823 02/18/24 0451 02/17/24 0631 Sodium mmol/L 142 141 144 Potassium mmol/L 4.1 3.7 3.7 Chloride mmol/L 107 107 108* CO2 mmol/L 22 23 21* BUN mg/dL 47* 48* 49* Creatinine mg/dL 2.6* 2.5* 2.4* Lab results within last 7 days (see chart for full results) Units 02/16/24 0526 02/15/24 1103 Magnesium mg/dL 2.1 2.1 ] Lab results within last 7 days (see chart for full results) Units 02/16/24 0526 02/15/24 1103 02/15/24 0635 Protein g/dL 6.7 7.2 7.1 Bilirubin, Total mg/dL 0.3 0.3 0.3 Alkaline Phosphatase U/L 77 91 90 AST U/L 15 16 20 ALT U/L 11 12 13 Lab results within last 7 days (see chart for full results) Units 02/15/24 1103 Lactate mmol/L 0.9 Recent Cultures (2 Weeks) No lab values to display. 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 * DIFFERENTIAL AND PLAN: CLAUDY. Likely ATN suspected to be secondary vancomycin. Cr continues to uptrend. Appreciate ID input for alternative antibiotic regimen. Now on Dapto/Kaden. Will continue His neurological symptoms seem to be resolved. Will continue to monitor. Monitor BP control. Yesterday amlodipine was increased. Might need further increase with SBP>160 MRI is not possible due to patient's positioning restrictions. [employer] meds where appropriate Follow AM labs PHARMACOLOGIC VTE PROPHYLAXIS: warfarin check daily dose (PHARMACIST MANAGED) Warfarin Sodium CODE STATUS: Full Code EXPECTED DISCHARGE DATE: 02/20/2024 I spent a total of 35 minutes coordinating, documenting, and providing care for this patient excluding time spent in the performance of separately billed services. * Nic Elder, [facility] - 02/19/2024 7:37 AM EDT Images from the original note were not included. PHARMACY ANTICOAGULATION WARFARIN (Coumadin) Assessment [address] [address] Name: Stephen Varela Location: [facility] 5A-5105/W Date: 02/19/2024 Time: 7:38 AM Stephen Varela is a 78 year old male admitted for CLAUDY (acute kidney injury) (HCC). Pharmacy was consulted for warfarin dosing and monitoring. Anticoagulation Therapy Goals Indication for Anticoagulation: Atrial fibrillation/flutter Anticipated Duration of Therapy: Lifetime Target INR: 2.0-3.0(Prevention of systemic embolism) Risk factors for anticoagulation therapy: Age>65, Cancer Prior to Admission Management Anticoagulation Managed By: Anticoagulation Clinic Tablet Size/Strength: 5 mg Anticoagulation Regimen: 10 mg Mon, Wed; 7.5 mg AOD Anticoagulation Episode Summary Current INR goal: 2.0-3.0 TTR: 42.4% (10.6 mo) Next INR check: 02/19/2024 INR from last check: 1.7 (02/08/2024) Most recent INR: 2.4 (02/19/2024) Weekly max warfarin dose: Target end date: Indefinite INR check location: Preferred lab: Send INR reminders to: Indications PAF (paroxysmal atrial fibrillation) (HCC) (Primary) [I48.0] Atrial fibrillation (HCC) (Resolved) [I48.91] Comments: Call patient and fax orders to Antonio Grimaldo at [phone] Anticoagulation Care Providers Provider Role Specialty Phone number Mely Jad Estrella MD Referring Family Medicine [phone] Labs INR Date/Time Value Ref Range Status 02/19/2024 04:15 AM 2.4 (H) 0.8 - 1.2 Final 02/18/2024 04:51 AM 2.3 (H) 0.8 - 1.2 Final 02/17/2024 06:31 AM 2.2 (H) 0.8 - 1.2 Final HGB Date/Time Value Ref Range Status 02/18/2024 04:51 AM 9.7 (L) 14.0 - 16.8 g/dL Final HCT Date/Time Value Ref Range Status 02/18/2024 04:51 AM 31.1 (L) 40.0 - 48.4 % Final PLT Date/Time Value Ref Range Status 02/18/2024 04:51 AM 93 (L) 140 - 400 K/uL Final Objective Warfarin Administrations (last 720 hours) Date/Time Action Medication Dose 02/18/24 2140 Given Warfarin Sodium (Coumadin) tab 7.5 mg 7.5 mg 02/17/24 2108 Given Warfarin Sodium (Coumadin) tab 7.5 mg 7.5 mg 02/16/24 2158 Given Warfarin Sodium (Coumadin) tab 7.5 mg 7.5 mg Assessment & Plan Assessment Dietary Assessment: Normal/expected PO intake Today's INR : Therapeutic Does the patient have any medication interactions: No Are there bleeding concerns with the patient: No Does the patient have any upcoming procedures: No Plan Warfarin Plan: Give Warfarin Specify Warfarin Dose: 10 mg Is the patient receiving a Bridging Agent: No Warfarin Patient Education : Not needed Reason Education Not Needed: ACC Nic Elder RPh * Henry Vanegas MD - 02/18/2024 11:19 AM EDT Images from the original note were not included. [facility] 5A-5105/W INTERVAL HISTORY: 78 YO M with left preauricular squamous cell carcinoma, chronic HFpEF(55% 12/12), atrial fibrillation anticoagulated on warfarin, DLD, HTN, and obesity who was admitted with CLAUDY in setting of expressive aphasia and dysarthric speech. This morning he continues to improve. However, concerned about his renal function. No other concerns. Intake/Output 02/17/24 0700 - 02/18/24 0659 02/18/24 0700 - 02/19/24 0659 [id number] 3817-8517 6311-0175 Total 9324-8366 8943-7129 7758-8634 Total Intake P.O. 300 220 120 640 0 -- -- 0 I.V. 229.6 49.9 50 329.4 49.9 -- -- 49.9 Volume (mL) (NSS infusion) 20.1 -- -- 20.1 -- -- -- -- Volume (mL) (isolyte-S pH 7.4 infusion) 159.6 -- -- 159.6 -- -- -- -- Volume (mL) (cefepime in dextrose (Maxipime) ivpb 1 g) 49.9 49.9 50 149.8 49.9 -- -- 49.9 Total Intake 529.6 269.9 170 969.4 49.9 -- -- 49.9 Output Urine 450 -- 660 1110 -- -- -- -- Total Output 450 -- 660 1110 -- -- -- -- Objective Physical Exam Most Recent Vital Signs: BP: 169 mmHg/59 mmHg (02/18/24643) Pulse: 71 (02/18/24 0850) Resp: 16 (02/18/24643) Temp: 36.39 C (02/18/24643) Temp Summary: Temp Min: 36.2 C (97.2 F) Max: 36.4 C (97.5 F) SpO2: 94 % (02/18/24643) O2 flow rate: Supplemental O2 Delivery: Room Air, None (02/18/24643) Physical Exam Vitals reviewed. Constitutional: Appearance: He is not ill-appearing or toxic-appearing. Cardiovascular: Rate and Rhythm: Normal rate. Heart sounds: No friction rub. No gallop. Pulmonary: Effort: Pulmonary effort is normal. Breath sounds: No wheezing, rhonchi or rales. Abdominal: General: Abdomen is flat. Bowel sounds are normal. There is no distension. Tenderness: There is no abdominal tenderness. There is no guarding. Musculoskeletal: Right lower leg: No edema. Left lower leg: No edema. Skin: Comments: Dressing c/d/i Neurological: Mental Status: He is alert. Power PICC Single Lumen Right;Upper Arm (Active) Number of days: 23 STUDIES: Encounter Orders Labs and other studies reviewed with pertinent findings noted below: Lab results within last 7 days (see chart for full results) Units 02/18/24 0451 02/17/24 0631 02/16/24 0526 HGB g/dL 9.7* 10.1* 9.2* HCT % 31.1* 32.4* 29.6* WBC K/uL 7.37 8.95 8.59 PLT K/uL 93* 100* 104* Lab results within last 7 days (see chart for full results) Units 02/18/24 0451 02/17/24 0631 02/16/24 0526 Sodium mmol/L 141 144 143 Potassium mmol/L 3.7 3.7 3.8 Chloride mmol/L 107 108* 108* CO2 mmol/L 23 21* 20* BUN mg/dL 48* 49* 48* Creatinine mg/dL 2.5* 2.4* 2.3* Lab results within last 7 days (see chart for full results) Units 02/16/24 0526 02/15/24 1103 Magnesium mg/dL 2.1 2.1 ] Lab results within last 7 days (see chart for full results) Units 02/16/24 0526 02/15/24 1103 02/15/24 0635 Protein g/dL 6.7 7.2 7.1 Bilirubin, Total mg/dL 0.3 0.3 0.3 Alkaline Phosphatase U/L 77 91 90 AST U/L 15 16 20 ALT U/L 11 12 13 Lab results within last 7 days (see chart for full results) Units 02/15/24 1103 Lactate mmol/L 0.9 Recent Cultures (2 Weeks) No lab values to display. XR CHEST 1 VIEW Result Date: 02/15/2024 IMPRESSION: 1. Very low lung volumes with atelectasis 2. Pulmonary edema not excluded 3. Bibasilar consolidation, right greater than left may represent atelectasis versus pneumonia 4. Small pleural effusions. THIS DOCUMENT HAS BEEN ELECTRONICALLY SIGNED BY AFSHIN SMITH MD CT HEAD/BRAIN WO CONTRAST Result Date: 02/15/2024 IMPRESSION: Title of the somewhat limited study. Chronic changes.No gross acute intracerebral hemorrhage, mass effect or midline shift. 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 * DIFFERENTIAL AND PLAN: CLAUDY. Appreciate nephro input. Likely ATN suspected to be secondary vancomycin. Cr continues to uptrend. Will consult ID for alternatives His neurological symptoms seem to be improved. Will continue to monitor. Monitor BP control. Will increase amlodipine. MRI is not possible due to patient's positioning restrictions. Continue Vanc/Cefepime for osteomyelitis for now. Await ID input [employer] meds where appropriate Follow AM labs Systolic BP on the high side. Will increase amlodipine dose. PHARMACOLOGIC VTE PROPHYLAXIS: warfarin check daily dose (PHARMACIST MANAGED) Warfarin Sodium CODE STATUS: Full Code EXPECTED DISCHARGE DATE: 02/18/2024 I spent a total of 50 minutes coordinating, documenting, and providing care for this patient excluding time spent in the performance of separately billed services. * Matt Gordillo, [facility] - 02/18/2024 6:19 AM EDT Images from the original note were not included. PHARMACY ANTICOAGULATION WARFARIN (Coumadin) Assessment [address] [address] Name: Stephen Varela Location: [facility] 5A-5105/W Date: 02/18/2024 Time: 6:19 AM Stephen Varela is a 78 year old male admitted for CLAUDY (acute kidney injury) (HCC). Pharmacy was consulted for warfarin dosing and monitoring. Anticoagulation Therapy Goals Indication for Anticoagulation: Atrial fibrillation/flutter Anticipated Duration of Therapy: Lifetime Target INR: 2.0-3.0(Prevention of systemic embolism) Risk factors for anticoagulation therapy: Age>65, Hypertension, Cancer Prior to Admission Management Anticoagulation Managed By: Anticoagulation Clinic Tablet Size/Strength: 5 mg Anticoagulation Regimen: 10 mg every Mon, Wed; 7.5 mg all other days Anticoagulation Episode Summary Current INR goal: 2.0-3.0 TTR: 42.5% (10.6 mo) Next INR check: 02/19/2024 INR from last check: 1.7 (02/08/2024) Most recent INR: 2.3 (02/18/2024) Weekly max warfarin dose: Target end date: Indefinite INR check location: Preferred lab: Send INR reminders to: Indications PAF (paroxysmal atrial fibrillation) (HCC) (Primary) [I48.0] Atrial fibrillation (HCC) (Resolved) [I48.91] Comments: Call patient and fax orders to [facility] at [phone] Anticoagulation Care Providers Provider Role Specialty Phone number Jad Boone MD Referring Family Medicine [phone] Labs INR Date/Time Value Ref Range Status 02/18/2024 04:51 AM 2.3 (H) 0.8 - 1.2 Final 02/17/2024 06:31 AM 2.2 (H) 0.8 - 1.2 Final 02/16/2024 05:26 AM 2.4 (H) 0.8 - 1.2 Final HGB Date/Time Value Ref Range Status 02/18/2024 04:51 AM 9.7 (L) 14.0 - 16.8 g/dL Final HCT Date/Time Value Ref Range Status 02/18/2024 04:51 AM 31.1 (L) 40.0 - 48.4 % Final PLT Date/Time Value Ref Range Status 02/18/2024 04:51 AM 93 (L) 140 - 400 K/uL Final Objective Warfarin Administrations (last 720 hours) Date/Time Action Medication Dose 06/29/24 2108 Given Warfarin Sodium (Coumadin) tab 7.5 mg 7.5 mg 02/16/248 Given Warfarin Sodium (Coumadin) tab 7.5 mg 7.5 mg Assessment & Plan Assessment Dietary Assessment: Normal/expected PO intake Today's INR : Therapeutic Does the patient have any medication interactions: No Are there bleeding concerns with the patient: No Does the patient have any upcoming procedures: No Plan Warfarin Plan: Give Warfarin Specify Warfarin Dose: 7.5 mg tonight Is the patient receiving a Bridging Agent: No Warfarin Patient Education : Not needed Reason Education Not Needed: ACC Matt Gordillo RPh * Matt Gordillo RPh - 02/18/2024 6:02 AM EDT PHARMACY PHARMACOKINETIC CONSULT [address] [address] Name: Stephen Varela Location: [facility] 5A-5105/W Date: 02/18/2024 Time: 6:02 AM Requesting Service: @[email or web address]@ 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 Lab information: Lab Results Component Value Date/Time WBC 7.37 02/18/2024 04:51 AM WBC 8.95 02/17/2024 06:31 AM WBC 8.59 02/16/2024 05:26 AM WBC 8.75 02/15/2024 06:35 AM WBC 7.10 02/08/2024 04:27 AM WBC 10.09 09/13/2020 05:39 AM WBC 13.25 (H) 09/12/2020 05:34 AM WBC 8.24 09/11/2020 11:58 AM WBC 8.14 03/06/2017 09:17 AM WBC 6.70 12/24/2014 08:56 AM Lab Results Component Value Date/Time BUN 48 (H) 02/18/2024 04:51 AM BUN 49 (H) 02/17/2024 06:31 AM BUN 48 (H) 02/16/2024 05:26 AM BUN 50 (H) 02/15/2024 11:03 AM BUN 49 (H) 02/15/2024 06:35 AM BUN 17 09/16/2020 10:25 AM BUN 15 09/13/2020 05:39 AM BUN 17 09/12/2020 05:34 AM BUN 20 09/11/2020 11:58 AM BUN 26 (H) 05/11/2020 09:17 AM Lab Results Component Value Date/Time CREAT 2.5 (H) 02/18/2024 04:51 AM CREAT 2.4 (H) 02/17/2024 06:31 AM CREAT 2.3 (H) 02/16/2024 05:26 AM CREAT 2.3 (H) 02/15/2024 11:03 AM CREAT 2.3 (H) 02/15/2024 06:35 AM CREAT 1.0 09/16/2020 10:25 AM CREAT 0.9 09/13/2020 05:39 AM CREAT 0.8 09/12/2020 05:34 AM CREAT 0.9 09/11/2020 11:58 AM CREAT 1.0 05/11/2020 09:17 AM ANTIMICROBIALS GIVEN (last 28 hours) Date/Time Action Medication Dose Rate 02/17/24 2321 New Bag cefepime in dextrose (Maxipime) ivpb 1 g 1 g 100 mL/hr 02/17/24 1632 New Bag cefepime in dextrose (Maxipime) ivpb 1 g 1 g 100 mL/hr 02/17/24 0826 New Bag cefepime in dextrose (Maxipime) ivpb 1 g 1 g 100 mL/hr Wt Readings from Last 1 Encounters: 02/17/24 105.7 kg (233 lb 1.6 oz) Dosing and levels to date: Lab Results Component Value Date/Time VANCORANDOM 28.4 02/18/2024 04:51 AM VANCORANDOM 31.9 02/17/2024 06:31 AM VANCORANDOM 38.2 02/16/2024 05:26 AM Date Dose Admin Time Level (mcg/mL) Collected Time Notes/Comment 02/16 HOLD 31.9 6:31 02/17 HOLD 28.4 4:51 Plan/Recommendations: Hold vancomycin due to supratherapeutic level and CLAUDY. Next random level scheduled for 02/18 w/ AM labs. * Henry Vanegas MD - 02/17/2024 10:36 AM EDT Images from the original note were not included. [facility] 5A-5105/W INTERVAL HISTORY: 78 YO M with left preauricular squamous cell carcinoma, chronic HFpEF(55% 12/12), atrial fibrillation anticoagulated on warfarin, DLD, HTN, and obesity who was admitted with CLAUDY in setting of expressive aphasia and dysarthric speech. This morning he states his speech is much better. No complaints. Intake/Output 02/16/24 0700 - 02/17/24 0659 02/17/24 0700 - 02/18/24 0659 [id number] 8520-0632 Total [id number] 3589-0696 7831-2091 Total Intake P.O. 120 0 -- 120 60 -- -- 60 I.V. -- -- 141.5 141.5 70 -- -- 70 Volume (mL) (NSS infusion) -- -- 41.8 41.8 20.1 -- -- 20.1 Volume (mL) (cefepime in dextrose (Maxipime) ivpb 1 g) -- -- 99.7 99.7 49.9 -- -- 49.9 Total Intake 120 0 141.5 261.5 130 -- -- 130 Output Urine -- 450 -- 450 -- -- -- -- Total Output -- 450 -- 450 -- -- -- -- Objective Physical Exam Most Recent Vital Signs: BP: 171 mmHg/86 mmHg (02/17/24707) Pulse: 64 (02/17/24707) Resp: 16 (02/17/24707) Temp: 36.28 C (02/17/24707) Temp Summary: Temp Min: 36.1 C (97 F) Max: 36.9 C (98.4 F) SpO2: 97 % (02/17/24 0708) O2 flow rate: Supplemental O2 Delivery: Room Air, None (02/17/24 0716) Physical Exam Vitals reviewed. Constitutional: Appearance: He is not ill-appearing or toxic-appearing. Cardiovascular: Rate and Rhythm: Normal rate. Heart sounds: No friction rub. No gallop. Pulmonary: Effort: Pulmonary effort is normal. Breath sounds: No wheezing, rhonchi or rales. Abdominal: General: Abdomen is flat. Bowel sounds are normal. There is no distension. Tenderness: There is no abdominal tenderness. There is no guarding. Musculoskeletal: Right lower leg: No edema. Left lower leg: No edema. Neurological: Mental Status: He is alert. Power PICC Single Lumen Right;Upper Arm (Active) Number of days: 22 STUDIES: Encounter Orders Labs and other studies reviewed with pertinent findings noted below: Lab results within last 7 days (see chart for full results) Units 02/17/24 0631 02/16/24 0526 02/15/24 0635 HGB g/dL 10.1* 9.2* 10.4* HCT % 32.4* 29.6* 33.7* WBC K/uL 8.95 8.59 8.75 PLT K/uL 100* 104* 123* Lab results within last 7 days (see chart for full results) Units 02/17/24 0631 02/16/24 0526 02/15/24 1103 Sodium mmol/L 144 143 142 Potassium mmol/L 3.7 3.8 4.5 Chloride mmol/L 108* 108* 106 CO2 mmol/L 21* 20* 22 BUN mg/dL 49* 48* 50* Creatinine mg/dL 2.4* 2.3* 2.3* Lab results within last 7 days (see chart for full results) Units 02/16/24 0526 02/15/24 1103 Magnesium mg/dL 2.1 2.1 ] Lab results within last 7 days (see chart for full results) Units 02/16/24 0526 02/15/24 1103 02/15/24 0635 Protein g/dL 6.7 7.2 7.1 Bilirubin, Total mg/dL 0.3 0.3 0.3 Alkaline Phosphatase U/L 77 91 90 AST U/L 15 16 20 ALT U/L 11 12 13 Lab results within last 7 days (see chart for full results) Units 02/15/24 1103 Lactate mmol/L 0.9 Recent Cultures (2 Weeks) No lab values to display. XR CHEST 1 VIEW Result Date: 02/15/2024 IMPRESSION: 1. Very low lung volumes with atelectasis 2. Pulmonary edema not excluded 3. Bibasilar consolidation, right greater than left may represent atelectasis versus pneumonia 4. Small pleural effusions. THIS DOCUMENT HAS BEEN ELECTRONICALLY SIGNED BY AFSHIN SMITH MD CT HEAD/BRAIN WO CONTRAST Result Date: 02/15/2024 IMPRESSION: Title of the somewhat limited study. Chronic changes.No gross acute intracerebral hemorrhage, mass effect or midline shift. 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 * DIFFERENTIAL AND PLAN: CLAUDY. Persistent up trend in cr. Will consult nephrology. His neurological symptoms seem to be improved today. Will continue to monitor. MRI is not possible due to patient's positioning restrictions. 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 Will increase amlodipine dose. PHARMACOLOGIC VTE PROPHYLAXIS: warfarin check daily dose (PHARMACIST MANAGED) Warfarin Sodium CODE STATUS: Full Code EXPECTED DISCHARGE DATE: 02/17/2024 I spent a total of 35 minutes coordinating, documenting, and providing care for this patient excluding time spent in the performance of separately billed services. * Kathrine Che, [facility] - 02/17/2024 8:44 AM EDT Images from the original note were not included. PHARMACY ANTICOAGULATION WARFARIN (Coumadin) Assessment [address] [address] Name: Stephen Varela Location: [facility] 5A-5105/W Date: 02/17/2024 Time: 8:44 AM Stephen Varela is a 78 year old male admitted for CLAUDY (acute kidney injury) (HCC). Pharmacy was consulted for warfarin dosing and monitoring. Anticoagulation Therapy Goals Indication for Anticoagulation: Atrial fibrillation/flutter Anticipated Duration of Therapy: Lifetime Target INR: 2.0-3.0(Prevention of systemic embolism) Risk factors for anticoagulation therapy: Age>65, Hypertension, Cancer Prior to Admission Management Anticoagulation Managed By: Anticoagulation Clinic Tablet Size/Strength: 5 mg Anticoagulation Regimen: 10 mg M/ and 7.5 mg all other days Anticoagulation Episode Summary Current INR goal: 2.0-3.0 TTR: 42.7% (10.6 mo) Next INR check: 02/19/2024 INR from last check: 1.7 (02/08/2024) Most recent INR: 2.2 (02/17/2024) Weekly max warfarin dose: Target end date: Indefinite INR check location: Preferred lab: Send INR reminders to: Indications PAF (paroxysmal atrial fibrillation) (HCC) (Primary) [I48.0] Atrial fibrillation (HCC) (Resolved) [I48.91] Comments: Call patient and fax orders to [facility] at [phone] Anticoagulation Care Providers Provider Role Specialty Phone number Jad Boone MD Referring Family Medicine [phone] Labs INR Date/Time Value Ref Range Status 02/17/2024 06:31 AM 2.2 (H) 0.8 - 1.2 Final 02/16/2024 05:26 AM 2.4 (H) 0.8 - 1.2 Final 02/15/2024 02:40 PM 2.4 (H) 0.8 - 1.2 Final HGB Date/Time Value Ref Range Status 02/17/2024 06:31 AM 10.1 (L) 14.0 - 16.8 g/dL Final HCT Date/Time Value Ref Range Status 02/17/2024 06:31 AM 32.4 (L) 40.0 - 48.4 % Final PLT Date/Time Value Ref Range Status 02/17/2024 06:31 AM 100 (L) 140 - 400 K/uL Final Objective Warfarin Administrations (last 720 hours) Date/Time Action Medication Dose 02/16/242157 Given Warfarin Sodium (Coumadin) tab 7.5 mg 7.5 mg Assessment & Plan Assessment Dietary Assessment: Normal/expected PO intake Today's INR : Therapeutic Does the patient have any medication interactions: No Are there bleeding concerns with the patient: No Does the patient have any upcoming procedures: No Plan Warfarin Plan: Give Warfarin Specify Warfarin Dose: 7.5 mg Is the patient receiving a Bridging Agent: No Warfarin Patient Education : Not needed Reason Education Not Needed: reyna Che RPh * Kathrine Che RPh - 02/17/2024 8:30 AM EDT PHARMACY PHARMACOKINETIC CONSULT [facility] [address] Name: Stephen Varela Location: [facility] 5A-5105/W Date: 02/17/2024 Time: 8:26 AM Requesting Service: @SERVICEIP@ 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 Lab information: Lab Results Component Value Date/Time WBC 8.95 02/17/2024 06:31 AM WBC 8.59 02/16/2024 05:26 AM WBC 8.75 02/15/2024 06:35 AM WBC 7.10 02/08/2024 04:27 AM WBC 7.40 02/05/2024 06:41 AM WBC 10.09 09/13/2020 05:39 AM WBC 13.25 (H) 09/12/2020 05:34 AM WBC 8.24 09/11/2020 11:58 AM WBC 8.14 03/06/2017 09:17 AM WBC 6.70 12/24/2014 08:56 AM Lab Results Component Value Date/Time BUN 49 (H) 02/17/2024 06:31 AM BUN 48 (H) 02/16/2024 05:26 AM BUN 50 (H) 02/15/2024 11:03 AM BUN 49 (H) 02/15/2024 06:35 AM BUN 30 (H) 02/08/2024 04:27 AM BUN 17 09/16/2020 10:25 AM BUN 15 09/13/2020 05:39 AM BUN 17 09/12/2020 05:34 AM BUN 20 09/11/2020 11:58 AM BUN 26 (H) 05/11/2020 09:17 AM Lab Results Component Value Date/Time CREAT 2.4 (H) 02/17/2024 06:31 AM CREAT 2.3 (H) 02/16/2024 05:26 AM CREAT 2.3 (H) 02/15/2024 11:03 AM CREAT 2.3 (H) 02/15/2024 06:35 AM CREAT 1.6 (H) 02/12/2024 06:14 AM CREAT 1.0 09/16/2020 10:25 AM CREAT 0.9 09/13/2020 05:39 AM CREAT 0.8 09/12/2020 05:34 AM CREAT 0.9 09/11/2020 11:58 AM CREAT 1.0 05/11/2020 09:17 AM ANTIMICROBIALS GIVEN (last 28 hours) Date/Time Action Medication Dose Rate 02/17/24 0826 New Bag cefepime in dextrose (Maxipime) ivpb 1 g 1 g 100 mL/hr 02/17/24 0042 New Bag cefepime in dextrose (Maxipime) ivpb 1 g 1 g 100 mL/hr 02/16/24 1517 New Bag cefepime in dextrose (Maxipime) ivpb 1 g 1 g 100 mL/hr 02/16/24 0842 New Bag cefepime in dextrose (Maxipime) ivpb 1 g 1 g 100 mL/hr Wt Readings from Last 1 Encounters: 02/17/24 105.7 kg (233 lb 1.6 oz) Dosing and levels to date: Lab Results Component Value Date/Time VANCORANDOM 31.9 02/17/2024 06:31 AM VANCORANDOM 38.2 02/16/2024 05:26 AM VANCORANDOM 24.1 02/12/2024 06:14 AM Day of Therapy Date Dose Admin Time Level (mcg/mL) Collected Time Notes/Comment 02/16 HOLD 31.9 Plan/Recommendations: Hold vancomycin due to supratherapeutic level and CLAUDY. Next random level scheduled for 02/17 w/ AM labs. * Parish Raymond, - 02/16/2024 2:48 PM EDT Images from the original note were not included. [facility] 5A-5105/W [facility] MEDICINE NOTE Summary Statement: Admission for expressive aphasia and dysarthric speech . Sent from SNF. ED W/U neg and inconsistent with CVA. Pt had evidence of CLAUDY. PMHX significant for left preauricular squamous cell carcinoma, chronic HFpEF(55% 12/12), atrial fibrillation anticoagulated on warfarin, DLD, HTN,and obesity. INTERVAL HISTORY: Chart, data and vital signs reviewed. Current medication list reviewed. 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 He is sitting at bedside eating breakfast. He still is having some expressive speech issues. He is frustrated by that. ROS: The patient denies CP, SOB, Orthopnea, Nausea, Emesis, Diarrhea, PATE or chills. No new voiding complaints. As per HPI and all other systems reviewed and are negative or noncontributory. cefepime in dextrose (Maxipime) ivpb 1 g Warfarin Sodium (Coumadin) tab 7.5 mg Acetaminophen (Tylenol) tab 650 mg amLODIPine (Norvasc) tab 2.5 mg atorvaSTATin (Lipitor) tab 20 mg Polyethylene Glycol 3350 (Miralax) oral powder 17 g AND [START ON 02/17/2024] senna-docusate (Senokot-S) 1 Tablet AND [START ON 02/18/2024] Bisacodyl (Dulcolax) tab 5 mg AND [START ON 02/18/2024] Bisacodyl (Dulcolax) supp 10 mg chlorhexidine gluconate cloth 2 % pad DAKINS 1/2 strength (0.25%) topical solution EUCERIN cream metoprolol succinate XL (toPROL XL) tab 25 mg multivitamin (Mvi) 1 Tablet NSS infusion omeprazole (PriLOSEC) cap 20 mg Oral Hygiene: Mouth Swab with dentifrice oxyCODONE (Oxy IR) tab 5 mg sodium chloride 0.9 % flush central line 10 mL sodium chloride 0.9 % flush/inj 3 mL vancomycin per pharmacy order warfarin check daily dose (PHARMACIST MANAGED) Objective Physical Exam Most Recent Vital Signs: BP: 168 mmHg/87 mmHg (02/16/24714) Pulse: 61 (02/16/24714) Resp: 18 (02/16/24714) Temp: 37.22 C (02/16/24714) Temp Summary: Temp Min: 36 C (96.8 F) Max: 37.2 C (99 F) SpO2: 96 % (02/16/24714) O2 flow rate: Supplemental O2 Delivery: Room Air, None (02/16/24 0800) Intake/Output Summary (Last 24 hours) at 02/16/2024 1459 Last data filed at 02/16/2024 1319 Gross per 24 hour Intake 1693.68 ml Output 550 ml Net 1143.68 ml General: alert, oriented x 3, dressing intact left ear area. Eyes: PERRLA, EOMI. Conjunctiva are pink and non-injected. Oropharynx: no exudate, no erythema; membranes are moist Neck: supple, no adenopathy, no JVD Lungs: lungs clear to auscultation. Heart: RRR. No gallops. Abdomen: abdomen soft, non-tender, normal active bowel sounds. Extremities: no c/c/e Neuro exam: No gross focal motor deficits, Seems to still have dysarthria and expressive aphasia Skin: warm, dry Power PICC Single Lumen Right;Upper Arm (Active) Number of days: 21 STUDIES: Results for orders placed or performed during the hospital encounter of 02/15/24 URINALYSIS WITH MICROSCOPIC EXAM Result Value Ref Range Color, Urine Yellow Light Yellow, Yellow, Dark Yellow Clarity, Urine Clear Clear Glucose, Urine Negative Negative mg/dL Bilirubin, Urine Negative Negative Ketone, Urine Negative Negative mg/dL Specific [place], Urine 1.012 1.003 - 1.030 Blood, Urine Small (A) Negative pH, Urine 5.5 5.0 - 7.5 Units Protein, Urine 30 (A) Negative mg/dL Urobilinogen, Urine 0.2 0.2, 1.0 mg/dL Nitrite, Urine Negative Negative Esterase, Urine Negative Negative RBC, Urine 3-5 (A) 0 - 2 /HPF WBC, Urine 3-5 (A) 0 - 2 /HPF Bacteria, Urine 0-25 0 - 25 /HPF Amorphous Crystals, Urine Many (A) None /HPF COMPREHENSIVE METABOLIC PANEL Result Value Ref Range BUN 50 (H) 6 - 20 mg/dL Creatinine 2.3 (H) 0.6 - 1.2 mg/dL Estimated Glomerular Filtration Rate 28 (L) >=60 mL/min Sodium 142 135 - 146 mmol/L Potassium 4.5 3.5 - 5.1 mmol/L Chloride 106 98 - 107 mmol/L CO2 22 22 - 32 mmol/L Anion Gap 14 7 - 15 mmol/L Glucose 97 70 - 120 mg/dL Albumin 4.0 3.8 - 5.0 g/dL AST 16 10 - 50 U/L Alkaline Phosphatase 91 35 - 130 U/L Bilirubin, Total 0.3 <=1.2 mg/dL Calcium 9.9 8.4 - 10.2 mg/dL Protein 7.2 6.0 - 8.3 g/dL ALT 12 10 - 50 U/L LACTATE Result Value Ref Range Lactate 0.9 0.4 - 2.0 mmol/L BLOOD GAS, VENOUS Result Value Ref Range Temperature 37.0 C pH, Venous 7.319 (L) 7.320 - 7.430 units pCO2, Venous 51.2 40.0 - 60.0 mmHg pO2, Venous 31.4 25.0 - 50.0 mmHg Base Excess, Venous -0.4 -2.0 - 2.0 mmol/L HGB 10.5 (L) 14.0 - 16.8 g/dL Oxyhemoglobin, Venous 44.7 40.0 - 85.0 % total Hgb Carboxyhemoglobin, Whole Blood 1.2 <=1.5 % total Hgb Methemoglobin, Whole Blood 0.5 <=1.5 % total Hgb Reduced Hemoglobin, Venous 53.6 % total Hgb O2 Content, Venous 6.6 (L) 7.0 - 18.0 %vol Bicarbonate, Whole Blood 25.6 23.0 - 31.0 mmol/L MAGNESIUM Result Value Ref Range Magnesium 2.1 1.5 - 2.6 mg/dL MRSA SCREEN, PCR Result Value Ref Range MRSA PCR Result Negative Negative PT INR Result Value Ref Range Prothrombin Time 26.6 (H) 11.6 - 15.2 seconds INR 2.4 (H) 0.8 - 1.2 COMPREHENSIVE METABOLIC PANEL Result Value Ref Range BUN 48 (H) 6 - 20 mg/dL Creatinine 2.3 (H) 0.6 - 1.2 mg/dL Estimated Glomerular Filtration Rate 29 (L) >=60 mL/min Sodium 143 135 - 146 mmol/L Potassium 3.8 3.5 - 5.1 mmol/L Chloride 108 (H) 98 - 107 mmol/L CO2 20 (L) 22 - 32 mmol/L Anion Gap 15 7 - 15 mmol/L Glucose 88 70 - 120 mg/dL Albumin 3.6 (L) 3.8 - 5.0 g/dL AST 15 10 - 50 U/L Alkaline Phosphatase 77 35 - 130 U/L Bilirubin, Total 0.3 <=1.2 mg/dL Calcium 9.6 8.4 - 10.2 mg/dL Protein 6.7 6.0 - 8.3 g/dL ALT 11 10 - 50 U/L CBC Result Value Ref Range WBC 8.59 4.00 - 10.80 K/uL RBC 3.41 4.50 - 5.25 M/uL HGB 9.2 (L) 14.0 - 16.8 g/dL HCT 29.6 (L) 40.0 - 48.4 % MCV 86.8 82.0 - 99.5 fL MCH 27.0 27.0 - 34.0 pg MCHC 31.1 32.0 - 36.0 g/dL RDW 17.2 11.5 - 15.5 % PLT 104 (L) 140 - 400 K/uL MPV 10.7 6.6 - 11.1 fL nRBCs 0 <=0 /100 WBCs MAGNESIUM Result Value Ref Range Magnesium 2.1 1.5 - 2.6 mg/dL PHOSPHORUS Result Value Ref Range Phosphorus 3.9 2.5 - 4.8 mg/dL CRP (INFLAMMATORY MARKER) Result Value Ref Range CRP (Inflammatory Marker) 6 (H) <=5 mg/L VANCOMYCIN RANDOM Result Value Ref Range Vancomycin Random 38.2 10.0 - 40.0 ug/mL LIPID PANEL WITH DIRECT LDL IF TG IS HIGH Result Value Ref Range Triglycerides 85 <=174 mg/dL Cholesterol 90 <200 mg/dL HDL Cholesterol 27 (L) >39 mg/dL Non-HDL Cholesterol 63 <=159 mg/dL LDL Cholesterol 46 <=129 mg/dL PT INR Result Value Ref Range Prothrombin Time 26.5 (H) 11.6 - 15.2 seconds INR 2.4 (H) 0.8 - 1.2 *Note: Due to a large number of results and/or encounters for the requested time period, some results have not been displayed. A complete set of results can be found in Results Review. XR CHEST 1 VIEW Final Result PROCEDURE INFORMATION: Exam: XR Chest Exam date [...] Heart/Mediastinum: The heart is enlarged. Bones/joints: Unremarkable. IMPRESSION IMPRESSION: 1. Very low lung volumes with atelectasis 2. Pulmonary edema not excluded 3. Bibasilar consolidation, right greater than left may represent atelectasis versus pneumonia 4. Small pleural effusions. THIS DOCUMENT HAS BEEN ELECTRONICALLY SIGNED BY AFSHIN SMITH MD CT HEAD/BRAIN WO CONTRAST Final Result PROCEDURE INFORMATION: Exam: CT Head Without Contrast [...] moderately limit the sensitivity of this examination. IMPRESSION IMPRESSION: Title of the somewhat limited study. Chronic changes.No gross acute intracerebral hemorrhage, mass effect or midline shift. THIS DOCUMENT HAS BEEN ELECTRONICALLY SIGNED BY AFSHIN SMITH MD Lab results within last 7 days (see chart for full results) Units 02/16/24 0526 02/15/24 1103 02/15/24 0635 Sodium mmol/L 143 142 143 Potassium mmol/L 3.8 4.5 4.3 Chloride mmol/L 108* 106 105 CO2 mmol/L 20* 22 21* BUN mg/dL 48* 50* 49* Creatinine mg/dL 2.3* 2.3* 2.3* Lab results within last 7 days (see chart for full results) Units 02/16/24 0526 02/15/24 0635 HGB g/dL 9.2* 10.4* HCT % 29.6* 33.7* WBC K/uL 8.59 8.75 PLT K/uL 104* 123* Assessment and Plan IMPRESSION : Principal Problem: CLAUDY (acute kidney injury) ([facility]) Active Problems: Heart failure, systolic, due to CAD (HCC) PAF (paroxysmal atrial fibrillation) ([facility]) Essential hypertension with goal blood pressure less than 140/90 Dyslipidemia, goal LDL below 70 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 * DIFFERENTIAL AND PLAN: Gentle IVF Hold lasix Continue IV antibiotics from before admit/Cefepime MRI pending but reported as no acute changes per admit team\\ May need Neuro consult Cultures are pending, NGTD Trend labs and renal fxn. Avoid nephrotoxins Maintain oxygen saturation above 90%. On RA. PT and OT consults CM Consult Continue outpatient medications Orders Placed This Encounter Procedures Easy to Chew Diet Note: To contact a physician responsible for this patients hospital care, please call [facility] [phone]. PHARMACOLOGIC VTE PROPHYLAXIS: warfarin check daily dose (PHARMACIST MANAGED) Warfarin Sodium CODE STATUS: Full Code EXPECTED DISCHARGE DATE: 02/17/2024 I spent a total of 55 minutes coordinating, documenting, and providing care for this patient excluding time spent in the performance of separately billed services. * Thomas Bill RP - 02/16/2024 7:11 AM EDT Images from the original note were not included. PHARMACY ANTICOAGULATION WARFARIN (Coumadin) Assessment [address] [address] Name: Stephen Varela Location: [facility] 5A-5105/W Date: 02/16/2024 Time: 7:11 AM Stephen Varela is a 78 year old male admitted for CLAUDY (acute kidney injury) (HCC). Pharmacy was consulted for warfarin dosing and monitoring. Anticoagulation Therapy Goals Indication for Anticoagulation: Atrial fibrillation/flutter Anticipated Duration of Therapy: Lifetime Target INR: 2.0-3.0 (Prophylaxis of venous thrombosis) Risk factors for anticoagulation therapy: Age>65, Hypertension Prior to Admission Management Anticoagulation Managed By: Anticoagulation Clinic Tablet Size/Strength: 5 mg Anticoagulation Regimen: 10mg mon, mon 7.5mg aod Anticoagulation Episode Summary Current INR goal: 2.0-3.0 TTR: 42.9% (10.7 mo) Next INR check: 02/19/2024 INR from last check: 1.7 (02/08/2024) Most recent INR: 2.4 (02/16/2024) Weekly max warfarin dose: Target end date: Indefinite INR check location: Preferred lab: Send INR reminders to: Indications PAF (paroxysmal atrial fibrillation) (HCC) (Primary) [I48.0] Atrial fibrillation (HCC) (Resolved) [I48.91] Comments: Call patient and fax orders to [facility] at [phone] Anticoagulation Care Providers Provider Role Specialty Phone number MelyJad olea MD Referring Family Medicine [phone] Labs INR Date/Time Value Ref Range Status 02/16/2024 05:26 AM 2.4 (H) 0.8 - 1.2 Final 02/15/2024 02:40 PM 2.4 (H) 0.8 - 1.2 Final HGB Date/Time Value Ref Range Status 02/16/2024 05:26 AM 9.2 (L) 14.0 - 16.8 g/dL Final HCT Date/Time Value Ref Range Status 02/16/2024 05:26 AM 29.6 (L) 40.0 - 48.4 % Final PLT Date/Time Value Ref Range Status 02/16/2024 05:26 AM 104 (L) 140 - 400 K/uL Final Objective Warfarin Administrations (last 720 hours) None Assessment & Plan Assessment Dietary Assessment: Normal/expected PO intake Today's INR : Therapeutic Does the patient have any medication interactions: No Are there bleeding concerns with the patient: No Does the patient have any upcoming procedures: No Plan Warfarin Plan: Give Warfarin Specify Warfarin Dose: give 7.5mg tonight Is the patient receiving a Bridging Agent: No Warfarin Patient Education : Not needed Reason Education Not Needed: acc Thomas Bill RPh * Thomas Bill RPh - 02/15/2024 2:51 PM EDT Images from the original note were not included. PHARMACY ANTICOAGULATION WARFARIN (Coumadin) Assessment [address] [address] Name: Stephen Varela Location: [facility] 5A-5105/W Date: 02/15/2024 Time: 2:51 PM Stephen Varela is a 78 year old male admitted for CLAUDY (acute kidney injury) (HCC). Pharmacy was consulted for warfarin dosing and monitoring. Anticoagulation Therapy Goals Indication for Anticoagulation: Atrial fibrillation/flutter Anticipated Duration of Therapy: Lifetime Target INR: 2.0-3.0 (Prophylaxis of venous thrombosis) Risk factors for anticoagulation therapy: Age>65, Hypertension Prior to Admission Management Anticoagulation Managed By: Anticoagulation Clinic Tablet Size/Strength: 5 mg Anticoagulation Regimen: 10mg mon, wed. 7.5mg all other days Anticoagulation Episode Summary Current INR goal: 2.0-3.0 TTR: 43.1% (10.7 mo) Next INR check: 02/19/2024 INR from last check: 1.7 (02/08/2024) Most recent INR: 2.2 (02/15/2024) Weekly max warfarin dose: Target end date: Indefinite INR check location: Preferred lab: Send INR reminders to: Indications PAF (paroxysmal atrial fibrillation) (HCC) (Primary) [I48.0] Atrial fibrillation (HCC) (Resolved) [I48.91] Comments: Call patient and fax orders to Antonio Grimaldo at [phone] Anticoagulation Care Providers Provider Role Specialty Phone number Jad Boone MD Referring Family Medicine [phone] Labs No results found for: "INR" No results found for: "HGB" No results found for: "HCT" No results found for: "PLT" Objective Warfarin Administrations (last 720 hours) None Assessment & Plan Assessment Dietary Assessment: Normal/expected PO intake Today's INR : Therapeutic Does the patient have any medication interactions: No Are there bleeding concerns with the patient: No Does the patient have any upcoming procedures: No Plan Warfarin Plan: Hold Warfarin (per med rec, patient took 7.5mg today at home) Is the patient receiving a Bridging Agent: No Warfarin Patient Education : Not needed Reason Education Not Needed: acc Thomas Bill RPh * Thomas Bill RPh - 02/15/2024 2:07 PM EDT Vancomycin random 02/16/2024 at 06:00 On Vancomycin 2000 mg IVPB x1 dose at 1500 on 02/14. Dose and consider scheduling if random is ok. documented in this encounter H&P Notes * Azeb Ledezma CRNP - 02/15/2024 1:04 PM EDT Images from the original note were not included. [facility] [id number] PRESENTING PROBLEM: expressive aphasia, dysarthria HPI: 78 year old male with PMH significant for [id number] left preauricular squamous cell carcinoma who underwent the following treatment: - Left wide local excision, left parotidectomy, left neck dissection, submental island flap reconstruction, and STSG to the left ear canal on 04/27/23. - Final pathology pT2N0. Tumor board recommendation for adjuvant radiation, compelted July 2023. - Reconstruction of left wound dehiscence with temporalis flap, postauricular cervicofacial advancement flap, and skin grafting on 12/12/23. Concurrent meatoplasty, canalplasty, and skin grafting withDr. Garcia. - January 2024 [facility] admission: admitted to the hospital on 01/24/24 for PICC line placement, IV antibiotic initiation, and wound care after experiencing significant dehiscence of left auricular wound. Patient insisted on leaving AMAon 01/25, but ultimately returned to the unit for PICC placement and IV antibiotic therapy. PICC placed 01/25 without issue. Wound debrided further on 01/26 prior to DC home 6/8 PM. Since his d/c from [facility] he has been at [facility] for IV antibiotic therapy. Other PMH includes chronic heart failure, atrial fibrillation anticoagulated on warfarin, DLD, HTN,and obesity. He was sent to [facility] ED 02/15/2024 from [place] for noted expressive aphasia and dysarthric speechsince Monday this week. In ED, VSS and work-up non-concerning for stroke but noted CLAUDY. Patient inconsistent on exam with one NIH score 7 and repeat at 4. CT of head negative. Case reviewed with Dr. Phoenix, ED attending, andagree upon telemetry admission for CLAUDY and further stroke consideration but patient is outside of the window for intervention at this time. Subjective Denies pain Denies fever or chills Denies chest pain or pressure Denies SOB or cough Denies n/v, abd pain, constipation, or diarrhea Denies dysuria, urgency, or frequency but does note that he had decreased urine output the past fewdays Ongoing bilat LE edema with left > right unchanged ROS otherwise negative Patient's past history, medications, and allergies were reviewed. Objective Physical Exam Most Recent Vital Signs: BP: 156 mmHg/81 mmHg (02/15/241356) Pulse: 67 (02/15/241356) Resp: 20 (02/15/241356) Temp: 35.89 C (02/15/241356) Temp Summary: Temp Min: 35.9 C (96.6 F) Max: 36.2 C (97.2 F) SpO2: 95 % (02/15/241356) O2 flow rate: Supplemental O2 Delivery: Room Air, None (02/15/241356) Wt Readings from Last 3 Encounters: 02/15/24 113.4 kg (250 lb) 01/27/24 107.7 kg (237 lb 6.4 oz) 12/16/23 91.2 kg (201 lb 1.6 oz) General: supine on liter in ED with HOB elevated, in no acute distress Psych: pleasant, cooperative, good eye contact Neuro: alert, oriented X 3, dysarthric speech with intermittent expressive aphasia -- worse with frustration/anxiety in word finding; moves all extremities without difficulty, follows simple commands; face symmetrical, + sensation intact MSK: generalized weakness Eye Exam: Conjunctiva are pink and non-injected, sclera clear, no xanthelasma; wears glasses; PERRLA 3 mm bilat, no nystagmus Ears: right external ear normal; [place]; left external ear with top portion surgically excised, vaseline dressing clean, dry, intact -- no noted erythema or drainage Oropharynx: mucous membranes moist Neck: supple Heart: irregularly irregular, no murmurs, and no gallops Lungs: course breath sounds bilat bases, no wheezing, no rales, no rhonchi, respirations even and unlabored, no use of accessory muscles, no retractions Abdomen: abdomen soft, non-tender, normal bowel sounds in all 4 quadrants, and no rebound or guarding Back: No CVA tenderness, no tenderness to palpation Extremities: +2-+3 bilat LE edema with left > right; bilat LE chronic venous stasis changes; no bilat calf tenderness, no clubbing, no cyanosis, capillary refill < 3 seconds Integumentary: [place], warm, dry STUDIES: Encounter Orders Labs and other studies reviewed with pertinent findings noted below: Results for orders placed or performed during the hospital encounter of 02/15/24 URINALYSIS WITH MICROSCOPIC EXAM Result Value Ref Range Color, Urine Yellow Light Yellow, Yellow, Dark Yellow Clarity, Urine Clear Clear Glucose, Urine Negative Negative mg/dL Bilirubin, Urine Negative Negative Ketone, Urine Negative Negative mg/dL Specific [place], Urine 1.012 1.003 - 1.030 Blood, Urine Small (A) Negative pH, Urine 5.5 5.0 - 7.5 Units Protein, Urine 30 (A) Negative mg/dL Urobilinogen, Urine 0.2 0.2, 1.0 mg/dL Nitrite, Urine Negative Negative Esterase, Urine Negative Negative RBC, Urine 3-5 (A) 0 - 2 /HPF WBC, Urine 3-5 (A) 0 - 2 /HPF Bacteria, Urine 0-25 0 - 25 /HPF Amorphous Crystals, Urine Many (A) None /HPF COMPREHENSIVE METABOLIC PANEL Result Value Ref Range BUN 50 (H) 6 - 20 mg/dL Creatinine 2.3 (H) 0.6 - 1.2 mg/dL Estimated Glomerular Filtration Rate 28 (L) >=60 mL/min Sodium 142 135 - 146 mmol/L Potassium 4.5 3.5 - 5.1 mmol/L Chloride 106 98 - 107 mmol/L CO2 22 22 - 32 mmol/L Anion Gap 14 7 - 15 mmol/L Glucose 97 70 - 120 mg/dL Albumin 4.0 3.8 - 5.0 g/dL AST 16 10 - 50 U/L Alkaline Phosphatase 91 35 - 130 U/L Bilirubin, Total 0.3 <=1.2 mg/dL Calcium 9.9 8.4 - 10.2 mg/dL Protein 7.2 6.0 - 8.3 g/dL ALT 12 10 - 50 U/L LACTATE Result Value Ref Range Lactate 0.9 0.4 - 2.0 mmol/L BLOOD GAS, VENOUS Result Value Ref Range Temperature 37.0 C pH, Venous 7.319 (L) 7.320 - 7.430 units pCO2, Venous 51.2 40.0 - 60.0 mmHg pO2, Venous 31.4 25.0 - 50.0 mmHg Base Excess, Venous -0.4 -2.0 - 2.0 mmol/L HGB 10.5 (L) 14.0 - 16.8 g/dL Oxyhemoglobin, Venous 44.7 40.0 - 85.0 % total Hgb Carboxyhemoglobin, Whole Blood 1.2 <=1.5 % total Hgb Methemoglobin, Whole Blood 0.5 <=1.5 % total Hgb Reduced Hemoglobin, Venous 53.6 % total Hgb O2 Content, Venous 6.6 (L) 7.0 - 18.0 %vol Bicarbonate, Whole Blood 25.6 23.0 - 31.0 mmol/L MAGNESIUM Result Value Ref Range Magnesium 2.1 1.5 - 2.6 mg/dL *Note: Due to a large number of results and/or encounters for the requested time period, some results have not been displayed. A complete set of results can be found in Results Review. Lipid Panel Results: Results for orders placed or performed during the hospital encounter of 03/27/23 LIPID PANEL WITH DIRECT LDL IF TG IS HIGH Result Value Ref Range Triglycerides 60 <=174 mg/dL Cholesterol 74 <200 mg/dL HDL Cholesterol 33 (L) >39 mg/dL Non-HDL Cholesterol 41 <=159 mg/dL LDL Cholesterol 29 <=129 mg/dL Hemoglobin AIC Results: Lab Results Component Value Date/Time HEMOGLOBIN A1C - [facility] 5.8 (H) 05/11/2020 09:17 AM HEMOGLOBIN A1C - [facility] 6.0 (H) 05/06/2019 09:13 AM HEMOGLOBIN A1C - [facility] 6.0 (H) 11/19/2018 09:[address] HEAD/BRAIN WO CONTRAST Result Date: 02/15/2024 IMPRESSION: Title of the somewhat limited study. Chronic changes.No gross acute intracerebral hemorrhage, mass effect or midline shift. THIS DOCUMENT HAS BEEN ELECTRONICALLY SIGNED BY AFSHIN SMITH MD ECHO 11/21/23: The qualitative LV ejection fraction is 55-59% (normal). The LV wall thickness is mildly increased (concentric). The right ventricular cavity is mildly dilated. The right ventricular systolic function is mildly reduced . Moderate to severe tricuspid regurgitation is present. Indeterminate IVC size and collapsability. Right atrial pressure estimated at 8 mmHg. The estimated pulmonary artery systolic pressure is 61mm Hg The estimated pulmonary artery systolic pressure is 55mm Hg. Nuclear Stress Test 11/21/23: Abnormal Nuclear stress test. There is a medium sized, severe intensity perfusion defect involving the distal anterior, lateral and septal mckeon extending into the true apex, that is fixed and most likely represents prior myocardial infarction. There is no significant myocardium at jeopardy. TID normal at 1.01 . Gating is inaccurate to record EF given the patient is in AF? would defer to echocardiogram for better EF assessment. Susceptibility data from last 90 days. Collected Specimen Info Organism Clindamycin Erythromycin Oxacillin Tetracycline Trimeth/Sulfamethoxazole Vancomycin 01/24/24 Drainage from Cheek, Left Staphylococcus aureus MRSA, This patient may require isolation. R R R S S S Bacteroides fragilis 12/12/23 Aspirate from Ear, Left Staphylococcus aureus S S S S S S Bacteroides fragilis 12/12/23 Aspirate from Ear, Left Staphylococcus aureus S S S S S S Peptoniphilus species Assessment and Plan IMPRESSION: Principal Problem: CLAUDY (acute kidney injury) ([facility]) Active Problems: Heart failure, systolic, due to CAD ([facility]) PAF (paroxysmal atrial fibrillation) ([facility]) Essential hypertension with goal blood pressure less than 140/90 Dyslipidemia, goal LDL below 70 Primary squamous cell carcinoma of parotid gland ([facility]) 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 * DIFFERENTIAL AND PLAN: CLAUDY (acute kidney injury) ([facility]) Telemetry admission Hold furosemide 40 mg daily upon admission Hold lisinopril 10 mg daily upon admission Avoid nephrotoxic medications Follow renal function NSS at 125 ml/hour X 1 liter then cap and maintain peripheral site Repeat labs in AM: CBC, CMP, PT/INR, CRP, check A1C, lipids, magnesium, and phosphorus Dysarthria Expressive aphasia Unclear etiology -- differentials include ischemic stroke, CLAUDY complication Encephalopathy acute Considerations include the CLAUDY, use of cefepime, and ischemic stroke MRI of brain -- CT of head negative in ED today Neuro checks every 4 hours X 24 hours Acute osteomyelitis of temporal bone ([facility]) Continue cefepime 2 grams every 8 hours -- one does need to consider that cefepime therapy may be causing encephalopathy, continue to monitor status Pharmacy consult for continued vancomycin management and monitoring Infectious disease consult -- update on patient's condition as they have been following him as out-patient to date Heart failure, systolic, due to CAD ([facility]) Holding furosemide on admission with CLAUDY Gentle hydration Daily weight monitoring I/O monitoring PAF (paroxysmal atrial fibrillation) (HCC) Continue metoprolol succinate XL 25 mg daily Anticoagulated on warfarin -- pharmacy consulted for ongoing warfarin management and monitoring Essential hypertension with goal blood pressure less than 140/90 Continue [employer] amlodipine 2.5 mg daily Dyslipidemia, goal LDL below 70 Continue [employer] atorvastatin 20 mg daily Check lipid panel in AM 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) 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 Azeb Ledezma, MURPHY, GRAIN PICKER, ANP-C, CNE Associated attestation - Darian Haq DO - 02/15/2024 3:02 PM EDT I have reviewed the advanced practitioner's documentation on the date of service referenced in note, and I agree with, and take responsibility for the plan of care. I spent a total of 19 minutes coordinating, documenting, and providing care for this patient excluding time spent in the performance of separately billed services or time spent by another provider/QHP. Patient was seen up on the medical floor. Sitting up on the edge of the bed does not appear to be any acute distress. Neuro: No definite facial droop, patient does seem to have some type of expressive aphasia. Difficulty with word finding, difficult to say certain words and sentences. Seems very frustrated that he can not get his words out the way he wants to say them. Plan of care as outlined below. Closely monitor for volume overload in the setting of holding diuretics and acute kidney injury requiring hydration documented in this encounter Procedure Notes * Beatriz Benson, - 02/15/2024 10:48 AM EDTAssociated Order(s): EKG REASON FOR STUDY: ELECTROLYTE ABNORMAL CONCLUSIONS: Atrial fibrillation with slow ventricular response Right bundle branch block Abnormal ECG When compared with ECG of 26-Jan-2024 13:13, No significant change was found Ventricular Rate: 58 Atrial Rate: 55 QRS Duration: 178 QT/QTc: 490/481 ms P-R-T [place]: 0 : 111 : -9 degrees documented in this encounter Consult Notes * Arturo Almanza MD - 02/17/2024 1:12 PM EDTAssociated Order(s): NEPHROLOGY CONSULT IP Reason for Consult: Acute kidney injury History of Present Illness: This is a 78-year-old male initially admitted with dysarthria but stroke workup was negative now being evaluated for acute kidney injury. Past medical history of CHF with EF of 33%, paroxysmal AFib, left Preauricular squamous cell carcinoma status post resection and radiation completed in 2012. He was admitted at [facility] on 01/24/2024 with infected postauricular wound. He was discharged for long-term antibiotics at [place]. Baseline creatinine is 1. Creatinine increased to 1.6 on 02/12/2024 and that day the vancomycin level was 24. On 02/16/2024 creatinine was 2.3 and vancomycin level of 38. Today creatinine is 2.4 and vancomycin level of 32. Patient is making urine. Hewas given some IV fluids. He denies any shortness of breath. Legs are slightly swollen. Review of Systems General ROS: negative for - chills or fever Psychological ROS: negative for - mood swings ENT ROS: negative for - nasal congestion or nasal discharge Endocrine ROS: negative Respiratory ROS: no cough, shortness of breath, or wheezing Cardiovascular ROS: no chest pain or dyspnea on exertion Gastrointestinal ROS: no abdominal pain, change in bowel habits, or black or bloody stools Genito-Urinary ROS: no dysuria, trouble voiding, or hematuria Musculoskeletal ROS: negative for - muscle pain Neurological ROS: no TIA or stroke symptoms Dermatological ROS: negative for rash Past Medical History Past Medical History: Diagnosis Date Atrial fibrillation (HCC) 2011 Heart failure, systolic, due to CAD (HCC) 08/28/2012 ECHO 2012 - Segmental wall abnormality, severe hypokinesis of anterior septum, anterior wall, apex,distal inferior septum, distal inferior wall, and distal posterior wall EF 33% Secondary hypercoagulable state (HCC) 05/01/2014 Past Surgical History Past Surgical History: Procedure Laterality Date FACE/SCALP DEEP TUMOR REMOVAL, 2 CM OR MORE Left 04/27/2023 EXCISION FACE/SCALP DEEP TUMOR, 2 CM OR MORE performed by Dudley Hinojosa MD at OR [facility] IR VENOUS ACCESS NON-MEDIPORT 01/26/2024 ISLAND PEDICLE FLAP N/A 04/27/2023 ISLAND PEDICLE FLAP performed by Dudlye Hinojosa MD at OR [facility] ISLAND PEDICLE FLAP N/A 12/12/2023 ISLAND PEDICLE FLAP performed by Gurvinder Garcia MD at OR [facility] REBUILD OUTER EAR CANAL Left 12/12/2023 RECONSTRUCTION EXTERNAL AUDITORY CANAL DUE TO INJURY performed by Gurvinder Garcia MD at OR [facility] REMOVAL OF NECK LYMPH NODES Left 04/27/2023 CERVICAL LYMPHADENECTOMY COMPLETE performed by Dudley Hinojosa MD at OR [facility] REMOVAL OF PAROTID GLAND/TUMOR N/A 04/27/2023 EXCISION PAROTID TOTAL WITH DISSECTION FACIAL NERVE performed by Dudley Hinojosa MD at OR [facility] REMOVAL OF TONSILS, AGE 12+ REPAIR HIP FRACTURE(S), W/FIXATION Right REPAIR SLIDING HERNIA REVISE MIDDLE EAR & MASTOID Left 12/12/2023 TYMPANOPLASTY MASTOIDECTOMY WITHOUT OSSICULAR RECONSTRUCTION performed by Gurvinder Garcia MDa OR [facility] SKIN SPLIT GRAFT, TRUNK/ARMS/LEGS N/A 12/12/2023 SPLIT GRAFT TRUNK ARM LEG LESS THAN 100SQ CM performed by Gurvinder Garcia MD at OR [facility] Current Medications Current Facility-Administered Medications Medication Dose Route Frequency Provider [START ON 02/18/2024] Drug Level Check - Vancomycin Random Does Not Apply Once Timed Lab 2hrs Kathrine Che RPh Warfarin Sodium (Coumadin) tab 7.5 mg 7.5 mg Oral QPM 2000 Kathrine Che RPh cefepime in dextrose (Maxipime) ivpb 1 g 1 g IV Piggyback Q8H Now Parish Raymond DO Acetaminophen (Tylenol) tab 650 mg 650 mg Oral Q6H PRN White, Azeb A, GRAIN PICKER amLODIPine (Norvasc) tab 2.5 mg 2.5 mg Oral Daily(AM) Azeb Ledezma GRAIN PICKER atorvaSTATin (Lipitor) tab 20 mg 20 mg Oral Q 1700 White, Azeb A, GRAIN PICKER Polyethylene Glycol 3350 (Miralax) oral powder 17 g 1 Packet Oral Daily PRN White, Azeb A, GRAIN PICKER And senna-docusate (Senokot-S) 1 Tablet 1 Tablet Oral BID PRN White, Azeb A GRAIN PICKER And [START ON 02/18/2024] Bisacodyl (Dulcolax) tab 5 mg 5 mg Oral Daily PRN [place] Azeb A GRAIN PICKER And [START ON 02/18/2024] Bisacodyl (Dulcolax) supp 10 mg 10 mg Rectal Daily PRN White Azeb A GRAIN PICKER chlorhexidine gluconate cloth 2 % pad External Daily 1000 WhiteAzeb GRAIN PICKER [place] 1/2 strength (0.25%) topical solution Topical Q12H Azeb Ledezma CRNP EUCERIN cream Topical BID(AM/PM) Azeb Ledezma GRAIN PICKER metoprolol succinate XL (toPROL XL) tab 25 mg 25 mg Oral Daily(AM) Azeb Ledezma CRNP multivitamin (Mvi) 1 Tablet 1 Tablet Oral Daily Noon Azeb Ledezma ANELIA omeprazole (PriLOSEC) cap 20 mg 20 mg Oral Daily(AM) WhiteAzeb A GRAIN PICKER oxyCODONE (Oxy IR) tab 5 mg 5 mg Oral Q6H PRN Azeb Ledezma GRAIN PICKER sodium chloride 0.9 % flush central line 10 mL 10 mL IV Push Q8H Azeb Ledezma A GRAIN PICKER sodium chloride 0.9 % flush/inj 3 mL 3 mL IV Push PRN Azeb Ledezma CRNP vancomycin per pharmacy order Does Not Apply Per Pharmacy Azeb Ledezma CRNP warfarin check daily dose (PHARMACIST MANAGED) Does Not Apply Daily 1500 Azeb Ledezma CRNP Allergies Review of patient's allergies indicates: Allergen Reactions Bee Venom Hives Family History No family history on file. Social Hisotry Social History Socioeconomic History Marital status: Spouse name: Not on file Number of children: Not on file Years of education: Not on file Highest education level: Not on file Occupational History Not on file Tobacco Use Smoking status: Former Current packs/day: 0.00 Types: Cigarettes Quit date: 2003 Years since quittin.5 Passive exposure: Past Smokeless tobacco: Never Tobacco comments: smoked, and quit in 2003 Vaping Use Vaping status: Never Used Substance and Sexual Activity Alcohol use: No Drug use: No Sexual activity: Not on file Other Topics Concern Not on file Social History Narrative - Lives with Spouse Home is Smoke Free Second marriage. Mr. Varela has three adult children ([place] [facility]) and seven grands, and his has two. Family History[facility]. Social Determinants of Health Financial Resource Strain: Low Risk (10/10/2023) Financial Resource Strain Do you have any trouble paying for your medications, or do you think you might in the future? (Adult - for ages 18 years and over): No Does your family have trouble paying for medicine? (Household - for ages 0-17 years): Not on file Food Insecurity: No Food Insecurity (12/13/2023) Food Insecurity Do you need food for this week? (Adult - for ages 18 years and over): No Are you able to get enough food for your family? (Household - for ages 0-17 years): Not on file Does your family need food this week? (Household - for ages 0-17 years): Not on file Do you always have enough food for your family? (Household - for ages 0-17 years): Not on file Transportation Needs: No Transportation Needs (12/13/2023) Transportation Needs Do you have trouble getting a ride to medical visits or work? (Adult - for ages 18 years and over):Never True Does your family have a hard time getting a ride to doctors visits? (Household - for ages 0-17 years): Not on file Has lack of transportation kept you from medical appointments, meetings, work, or from getting things needed for daily living? Check all that apply. (Adult - for ages 18 years and over): Not on file Do you (or your family) have trouble finding or paying for a ride (transportation)? (Household - for ages 0-17 years): Not on file Social Connections: Socially Integrated (10/10/2023) Social Connections How often do you feel lonely or isolated from those around you? (Adult - for ages 18 years and over): Never Housing Stability: Low Risk (12/13/2023) Housing Stability Do you currently live in a senior living or have no steady place to sleep at night? (Adult - for ages 18 years and over): No Do you think you are at risk of becoming homeless? (Adult - for ages 18 years and over): No Does your family worry about paying for your home or becoming homeless? (Household - for ages 0-17 years): Not on file Are you homeless or worried that you might be in the future? (Adult - for ages 18 years and over): Not on file Are you (or your family) homeless or worried that you might be in the future? (Household - for ages0-17 years): Not on file PHYSICAL EXAM BP: 171 mmHg/86 mmHg (02/17/24707) Pulse: 64 (02/17/24707) Resp: 16 (02/17/24707) Temp: 36.28 C (02/17/24707) Temp Summary: Temp Min: 36.1 C (97 F) Max: 36.9 C (98.4 F) SpO2: 97 % (02/17/24707) O2 flow rate: Supplemental O2 Delivery: Room Air, None (02/17/24715) GENERAL: Awake, alert, in no acute distress. EYES: PERRL, conjunctivae anicteric. ENT: Mucous membranes moist, oropharynx clear. NECK: Supple, no JVD. LYMPH: No cervical or supraclavicular lymphadenopathy. LUNGS: Clear to auscultation bilaterally, no respiratory distress. CARDIAC: Regular rate and rhythm, normal S1/S2, no murmurs, rubs, or gallops. ABDOMEN: Soft, non-tender, non-distended, bowel sounds present. EXT/MSK: No clubbing, cyanosis, 1+ edema. SKIN: No rash, no jaundice. NEURO: Oriented x3, no tremor, no asterixis. Intake/Output Summary (Last 24 hours) at 02/17/2024 1312 Last data filed at 02/17/2024 1200 Gross per 24 hour Intake 751.47 ml Output 800 ml Net -48.53 ml LABS/STUDIES: Lab Results Component Value Date/Time BUN - [facility] 49 (H) 02/17/2024 06:31 AM BUN - [facility] 48 (H) 02/16/2024 05:26 AM BUN - [facility] 50 (H) 02/15/2024 11:03 AM BUN - [facility] 49 (H) 02/15/2024 06:35 AM BUN - [facility] 30 (H) 02/08/2024 04:27 AM BUN - [facility] 17 09/16/2020 10:25 AM BUN - [facility] 15 09/13/2020 05:39 AM BUN - [facility] 17 09/12/2020 05:34 AM BUN - [facility] 20 09/11/2020 11:58 AM BUN - [facility] 26 (H) 05/11/2020 09:17 AM Lab Results Component Value Date/Time CREATININE - [facility] 2.4 (H) 02/17/2024 06:31 AM CREATININE - [facility] 2.3 (H) 02/16/2024 05:26 AM CREATININE - [facility] 2.3 (H) 02/15/2024 11:03 AM CREATININE - [facility] 2.3 (H) 02/15/2024 06:35 AM CREATININE - [facility] 1.6 (H) 02/12/2024 06:14 AM CREATININE - [facility] 1.0 09/16/2020 10:25 AM CREATININE - [facility] 0.9 09/13/2020 05:39 AM CREATININE - [facility] 0.8 09/12/2020 05:34 AM CREATININE - [facility] 0.9 09/11/2020 11:58 AM CREATININE - [facility] 1.0 05/11/2020 09:17 AM No components found for: "E GLOM FILT RATE" Lab Results Component Value Date/Time POTASSIUM - [facility] 3.7 02/17/2024 06:31 AM POTASSIUM - [facility] 3.8 02/16/2024 05:26 AM POTASSIUM - [facility] 4.5 02/15/2024 11:03 AM POTASSIUM - [facility] 3.8 09/16/2020 10:25 AM POTASSIUM - [facility] 3.3 (L) 09/13/2020 05:39 AM POTASSIUM - [facility] 3.9 09/12/2020 05:34 AM POTASSIUM, WHOLE BLOOD - [facility] 4.1 12/12/2023 02:41 PM POTASSIUM, WHOLE BLOOD - [facility] 4.3 04/27/2023 03:28 PM POTASSIUM, WHOLE BLOOD - [facility] 4.2 04/27/2023 01:31 PM Lab Results Component Value Date/Time HGB 10.1 (L) 02/17/2024 06:31 AM HGB 9.2 (L) 02/16/2024 05:26 AM HGB 10.5 (L) 02/15/2024 11:03 AM HGB 10.4 (L) 02/15/2024 06:35 AM HGB 10.4 (L) 02/08/2024 04:27 AM HGB 10.1 (L) 02/05/2024 06:41 AM HGB 8.9 (L) 12/12/2023 02:41 PM HGB 9.1 (L) 04/27/2023 03:28 PM HGB 8.8 (L) 04/27/2023 01:31 PM HGB 8.7 (L) 04/27/2023 11:27 AM HGB 13.3 (L) 09/13/2020 05:39 AM HGB 14.3 09/12/2020 05:34 AM HGB 14.4 09/11/2020 11:58 AM HGB 16.2 03/06/2017 09:17 AM HGB 15.1 12/24/2014 08:56 AM No results found for: "MICROALB" No components found for: "PROTCREATRAT" Lab Results Component Value Date/Time PTH - [facility] 28 03/29/2022 04:12 PM Lab Results Component Value Date/Time PHOSPHORUS - [facility] 3.9 02/16/2024 05:26 AM ASSESSMENT/PLAN: This is a 78-year-old male initially admitted with dysarthria but stroke workup was negative now being evaluated for acute kidney injury. 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 Plan: Acute kidney injury due to toxic ATN from vancomycin. His creatinine started to increase on 01/29/2024 and vancomycin level of 31 at that time. Electrolytes are stable. He has edema. -no need for IV fluids. Agree with the holding his Lasix. -we should stop vancomycin. Please discuss with ID about alternatives such as daptomycin. -daily BMP Arturo Almanza MD This note was generated with the help of voice recognition software. Please excuse for errors. * Lynn Estrada, PT - 02/16/2024 1:55 PM EDTAssociated Order(s): ADULT PHYSICAL THERAPY CONSULT IP GENERAL EVALUATION - Physical Therapy [address] [address] Name: Stephen Varela Location: [facility] [id number] Date: 02/16/2024 Time: 2:45 PM Stephen Varela is a/an 78 year old male. Patient Status: Inpatient Insurance: Payor: [employer] Plan: [employer] CLASSIC 1 PART D MC-LD Product Type: *No Product type* Patient Seen: at bedside, nursing cleared patient for therapy Patient Identified By: Name, ID Band and Date Patient presents with HPI of the following, per MD note, "PRESENTING PROBLEM: expressive aphasia, dysarthria. HPI: 78 year old male with PMH significant for [id number] left preauricular squamous cell carcinoma who underwent the following treatment: - Left wide local excision, left parotidectomy, left neck dissection, submental island flap reconstruction, and STSG to the left ear canal on 04/27/23. - Final pathology pT2N0. Tumor board recommendation for adjuvant radiation, compelted July 2023. - Reconstruction of left wound dehiscence with temporalis flap, postauricular cervicofacial advancement flap, and skin grafting on 12/12/23. Concurrent meatoplasty, canalplasty, and skin grafting withDrNiles Gadre. - January 2024 [facility] admission: admitted to the hospital on 01/24/24 for PICC line placement, IV antibiotic initiation, and wound care after experiencing significant dehiscence of left auricular wound. Patient insisted on leaving AMAon 01/25, but ultimately returned to the unit for PICC placement and IV antibiotic therapy. PICC placed 01/25 without issue. Wound debrided further on 01/26 prior to DC home 01/26 PM. Since his d/c from [facility] he has been at [facility] for IV antibiotic therapy. Other PMH includes chronic heart failure, atrial fibrillation anticoagulated on warfarin, DLD, HTN,and obesity. He was sent to [facility] ED 02/15/2024 from [place] for noted expressive aphasia and dysarthric speechsince Monday this week. In ED, VSS and work-up non-concerning for stroke but noted CLAUDY. Patient inconsistent on exam with one NIH score 7 and repeat at 4. CT of head negative. Case reviewed with Dr. Phoenix, ED attending, andagree upon telemetry admission for CLAUDY and further stroke consideration but patient is outside of the window for intervention at this time." Diagnosis: weakness, gait abnormality (02/16/24 1358) Status of treatment: OOB evaluation completed (02/16/24 1352) Orders: PT evaluation and treatment (02/16/24 1355) Weight Bearing Status: Weight bearing as tolerated (02/16/24 1355) Precautions: Safety;Falls;Isolation (02/16/24 1355) Total Treatment Time--free text: 54 (02/16/24 1359) Past Medical History: Past Medical History: Diagnosis Date Atrial fibrillation (HCC) 2011 Heart failure, systolic, due to CAD ([facility]) 08/28/2012 ECHO 2011 - Segmental wall abnormality, severe hypokinesis of anterior septum, anterior wall, apex,distal inferior septum, distal inferior wall, and distal posterior wall EF 33% Secondary hypercoagulable state ([facility]) 05/01/2014 Past Surgical History: Past Surgical History: Procedure Laterality Date FACE/SCALP DEEP TUMOR REMOVAL, 2 CM OR MORE Left 04/27/2023 EXCISION FACE/SCALP DEEP TUMOR, 2 CM OR MORE performed by Dudley Hinojosa MD at OR [facility] IR VENOUS ACCESS NON-MEDIPORT 01/26/2024 ISLAND PEDICLE FLAP N/A 04/27/2023 ISLAND PEDICLE FLAP performed by Dudley Hinojosa MD at OR [facility] ISLAND PEDICLE FLAP N/A 12/12/2023 ISLAND PEDICLE FLAP performed by Gurvinder Garcia MD at OR [facility] REBUILD OUTER EAR CANAL Left 12/12/2023 RECONSTRUCTION EXTERNAL AUDITORY CANAL DUE TO INJURY performed by Gurvinder Garcia MD at OR [facility] REMOVAL OF NECK LYMPH NODES Left 04/27/2023 CERVICAL LYMPHADENECTOMY COMPLETE performed by Dudley Hinojosa MD at OR [facility] REMOVAL OF PAROTID GLAND/TUMOR N/A 04/27/2023 EXCISION PAROTID TOTAL WITH DISSECTION FACIAL NERVE performed by Dudley Hinojosa MD at OR [facility] REMOVAL OF TONSILS, AGE 12+ REPAIR HIP FRACTURE(S), W/FIXATION Right REPAIR SLIDING HERNIA REVISE MIDDLE EAR & MASTOID Left 12/12/2023 TYMPANOPLASTY MASTOIDECTOMY WITHOUT OSSICULAR RECONSTRUCTION performed by Gurvinder Garcia MDa OR [facility] SKIN SPLIT GRAFT, TRUNK/ARMS/LEGS N/A 12/12/2023 SPLIT GRAFT TRUNK ARM LEG LESS THAN 100SQ CM performed by Gurvinder Garcia MD at OR [facility] Subjective: N/A Social History/Disposition Lives with: Caregiver / Attendant (02/16/24 [facility]) Assistance available: Yes (02/16/24 135) Dwelling type: Assisted living facility ([facility], however admitted from short term rehab) (02/16/24 135) Entry steps: None (02/16/241354) Inside steps: None (02/16/24 135) Bedroom location: 1st floor (02/16/24 135) Bath location: 1st floor full bath (02/16/24 135) Prior Level of Function Reported by: Patient (02/16/24 135) Ambulation: Ambulatory with device (02/16/24 1355) Ambulatory Device: Rolling walker (02/16/24 135) Devices at home: Grab bars;Rolling walker;Shower chair (02/16/24 1355) Observations Consciousness: Alert (02/16/24 135) Orientation: Oriented times 4 (02/16/24 135) Psychosocial: Patient can communicate basic needs;Patient can converse in a social setting (02/16/24 135) Other Findings: No (02/16/24 135) Sitting Posture: Rounded shoulders;Forward head;Kyphotic (02/16/24 1355) Standing Posture: Kyphotic;Forward head;Rounded shoulders (02/16/241354) Pain: No complaints of pain-- reports being more concerned with numbness in B hands Range of Motion Range of Motion: WFL (02/16/241354) P.T. Bed Mobility Supine-Sit: Supervision (02/16/241354) Sit-Supine: Supervision (02/16/241354) Transfers Sit-Stand: Supervision (02/16/241354) Stand-Sit: Supervision (02/16/241354) W/C-Bed/Mat: Supervision (02/16/241354) Ambulation: Distance ambulated (feet): 325 Assistive Device: Rolling walker Assist: Supervision Balance Sit (Static): Good (02/16/241354) Sit (Dynamic): Good (02/16/241354) Stand (Static): Fair (02/16/241354) Stand (Dynamic): Fair (02/16/241354) Patient and or Family Goal(s): to get well and to return home Patient Education Review of Precautions: Safety;Fall (call aguirre) (02/16/241354) Safety Awareness: Patient verbalizes insight of current deficits;Patient demonstrates carryover of insight during functional tasks;Patient can communicate basic needs (02/16/241354) Preferred learning method: Combination (02/16/241354) Barriers to learning: Medical Status (02/16/241354) Method of Education: Verbalized to patient (02/16/241354) Topic of Education: Safety with mobility, Goals/plan of care, Use of assistive device, Fall prevention, and d/c recommendations Method of Education: Written information provided to patient regarding HEP: verbalized understanding and or agreement of this information Verbal discussion and explanation provided to patient regarding topics mentioned above: verbalized understanding and or agreement of this information Extremity Exercise Sitting: Hip;Ankle;Isometrics;Knee (02/16/241354) Hip : Bilateral LE;Abduction;Flexion;1 set of 10 (02/16/241354) Knee : Bilateral LE;Extension;1 set of 10 (02/16/241354) Ankle: Plantar flexion;Bilateral LE;Dorsiflexion;1 set of 10 (02/16/241354) Isometrics: Glute sets;Quad sets;1 set of 10 (02/16/241354) Treatment Provided: Therapeutic Activities 10 minutes: bed mobility training transfer training Gait Training 15 minutes: gait training with rolling walker Therapeutic Exercises: 15 minutes Evaluation Moderate Complexity 14 minutes - 94330: Patient was cooperative, pleasant, motivated, and alert during treatment session. Moderate complexity evaluation performed and 1-2 personal factors or comorbidities were identified that will impact plan of care, including multiple orthopedic injuries, cardiac history, and weakness. Patient presents with limitations in strength, bed mobility, transfers, gait, balance, endurance, and safety, which will impact plan of care. These limitations will be addressed by the goals set for this patient. Alarm Status Patient positioned in: Chair (02/16/241354) With: Call aguirre in reach (02/16/241354) Treatment Status: Treatment at bedside (02/16/241354) Goals: Demonstrate Bed Mobility with: Supine to Sit: independent (pt does 100%) Sit to supine: independent (pt does 100%) Demonstrate Transfers with: Sit to stand: modified independent (with device or slow) Bed to chair: modified independent (with device or slow) Demonstrate ambulation 150 feet modified independent (with device or slow) with RW Increase Safety: with all mobility tasks to decrease fall risk Time Frame: 1-8 visits Assessment: Patient currently requires supervision for functional transfers and ambulation with useof RW. <25% verbal education required for safety/technique without any LOB or safety concerns noted. Patient denied having any onset of symptoms with mobility. Verbalizes appropriate level of insight into current functional deficits and demonstrates overall good safety awareness. PT AM PAC is 17, Would consider post-acute care services which may include home health, retirement, outpatienttherapy, or inpatient rehab. The level of care will be determined in collaboration with the patient, family/caregiver, and care team members. Will cont to provide skilled PT services while at [facility]. Deficits requiring P.T. treatment needs: Safety;Mobility;Balance;Lower extremity strength (355) Equipment Needs: Equipment needs: Rolling walker (02/16/241354) Treatment Plan: Bed mobility training, Transfer training, Gait training, ROM exercises: , Strengthening exercises: , Balance activities, and Educate on safety with all mobility tasks to decrease fallrisk Anticipated Frequency (on eval): 3 to 5 times per week (06/28/24 1355) AM PAC Score with Stairs: 17 * Consuelo Dunne, Sole Conditioner - 02/16/2024 11:24 AM EDTAssociated Order(s): CARE MANAGEMENT CONSULT IP See Ancillary Progress Note * Lara Crawley OT - 02/16/2024 10:08 AM EDTAssociated Order(s): ADULT OCCUPATIONAL THERAPY CONSULT IP GENERAL EVALUATION - Occupational Therapy [facility]-[address] [address] Name: Stephen Varela Location: [facility] [id number]-[id number]/W Date: 02/16/2024 Time: 1008 Stephen Varela is a 78 year old male. Per H&P "78 year old male with PMH significant for [id number] left preauricular squamous cell carcinoma who underwent the following treatment: - Left wide local excision, left parotidectomy, left neck dissection, submental island flap reconstruction, and STSG to the left ear canal on 04/27/23. - Final pathology pT2N0. Tumor board recommendation for adjuvant radiation, compelted July 2023. - Reconstruction of left wound dehiscence with temporalis flap, postauricular cervicofacial advancement flap, and skin grafting on 12/12/23. Concurrent meatoplasty, canalplasty, and skin grafting withDr. Garcia. - January 2024 [facility] admission: admitted to the hospital on 01/24/24 for PICC line placement, IV antibiotic initiation, and wound care after experiencing significant dehiscence of left auricular wound. Patient insisted on leaving AMAon 01/25, but ultimately returned to the unit for PICC placement and IV antibiotic therapy. PICC placed 01/25 without issue. Wound debrided further on 01/26 prior to DC home 6/8 PM. Since his d/c from [facility] he has been at [facility] for IV antibiotic therapy. Other PMH includes chronic heart failure, atrial fibrillation anticoagulated on warfarin, DLD, HTN,and obesity. He was sent to [facility] ED 02/15/2024 from [place] for noted expressive aphasia and dysarthric speechsince Monday this week. In ED, VSS and work-up non-concerning for stroke but noted CLAUDY. Patient inconsistent on exam with one NIH score 7 and repeat at 4. CT of head negative. Case reviewed with Dr. Phoenix, ED attending, andagree upon telemetry admission for CLAUDY and further stroke consideration but patient is outside of the window for intervention at this time. " Patient Status: Inpatient Insurance: Payor: [employer] Plan: [employer] CLASSIC 1 PART D MC-LD Product Type: *No Product type* Patient Seen: at bedside, nursing cleared patient for therapy Patient Identified By: Name, ID Band and Date Diagnosis: stroke like symptoms, L ear CA (02/16/24 1008) Status of treatment: Evaluation completed (02/16/24 1059) Orders: OT evaluation and treatment (02/16/24 1008) Weight Bearing Status: Weight bearing as tolerated (02/16/24 1008) Precautions: Alarms;Falls;Safety;Isolation (02/16/24 1008) Total Treatment Time: 51 (02/16/24 1059) Past Medical History: Past Medical History: Diagnosis Date Atrial fibrillation ([facility]) 2011 Heart failure, systolic, due to CAD ([facility]) 08/28/2012 ECHO 2011 - Segmental wall abnormality, severe hypokinesis of anterior septum, anterior wall, apex,distal inferior septum, distal inferior wall, and distal posterior wall EF 33% Secondary hypercoagulable state ([facility]) 05/01/2014 Past Surgical History: Past Surgical History: Procedure Laterality Date FACE/SCALP DEEP TUMOR REMOVAL, 2 CM OR MORE Left 04/27/2023 EXCISION FACE/SCALP DEEP TUMOR, 2 CM OR MORE performed by Dudley Hinojosa MD at OR [facility] IR VENOUS ACCESS NON-MEDIPORT 01/26/2024 ISLAND PEDICLE FLAP N/A 04/27/2023 ISLAND PEDICLE FLAP performed by Dudley Hinojosa MD at OR [facility] ISLAND PEDICLE FLAP N/A 12/12/2023 ISLAND PEDICLE FLAP performed by Gurvinder Garcia MD at OR [facility] REBUILD OUTER EAR CANAL Left 12/12/2023 RECONSTRUCTION EXTERNAL AUDITORY CANAL DUE TO INJURY performed by Gurvinder Garcia MD at OR [facility] REMOVAL OF NECK LYMPH NODES Left 04/27/2023 CERVICAL LYMPHADENECTOMY COMPLETE performed by Dudley Hinojosa MD at OR [facility] REMOVAL OF PAROTID GLAND/TUMOR N/A 04/27/2023 EXCISION PAROTID TOTAL WITH DISSECTION FACIAL NERVE performed by Dudley Hinojosa MD at OR [facility] REMOVAL OF TONSILS, AGE 12+ REPAIR HIP FRACTURE(S), W/FIXATION Right REPAIR SLIDING HERNIA REVISE MIDDLE EAR & MASTOID Left 12/12/2023 TYMPANOPLASTY MASTOIDECTOMY WITHOUT OSSICULAR RECONSTRUCTION performed by Gurvinder Garcia [facility] OR [facility] SKIN SPLIT GRAFT, TRUNK/ARMS/LEGS N/A 12/12/2023 SPLIT GRAFT TRUNK ARM LEG LESS THAN 100SQ CM performed by Gurvinder Garcia MD at OR [facility] Social History/Disposition Lives with: Caregiver / Attendant (02/16/241007) Assistance available: Yes (02/16/241007) Dwelling type: Assisted living facility (02/16/241007) Entry steps: None (02/16/241007) Inside steps: None (02/16/241007) Bedroom location: 1st floor (02/16/241007) Bath location: 1st floor full bath (02/16/241007) Prior Level of Function Reported by: Patient (02/16/24 100) Ambulation: Ambulatory without device (02/16/241007) Grooming: Independent (02/16/241007) Bathing: Independent (02/16/241007) Dressing: Independent (02/16/241007) Feeding: Independent (02/16/248) Toileting: Independent (02/16/248) Meal Prep: Independent (02/16/248) Homemaking: Independent (02/16/248) Shopping: Independent (02/16/241007) Medication Management: Assistance (02/16/241007) Money Management: Independent (02/16/241007) Driving: No (02/16/241007) Subjective: "These are the things that are wrong with me." Pt stated about word finding difficulty Pain: No complaints of pain Observations Consciousness: Alert (02/16/241007) Orientation: Oriented times 4 (02/16/241007) Cognitive Limitations: (none noted on OT eval) (02/16/241007) Psychosocial: Patient can communicate basic needs;Patient can converse in a social setting (word finding difficulty) (02/16/241007) Visual Deficits: (glasses) (02/16/241007) Sitting posture: Forward head;Rounded shoulders (02/16/241007) Other Findings Light touch sensation: LUE;RUE;Intact (02/16/241007) Coordination: LUE;RUE;Gross motor;Fine motor;Intact (02/16/241007) Current Functional Status: Bilateral Upper Extremity Hand Dominance: Right (02/16/241007) Range of Motion: WNL (02/16/241007) Strength Assessment: WNL (02/16/241007) Self Care Able to provide self care: No (02/16/241007) Feeding: Independent (02/16/241007) Grooming: Minimal Assistance (02/16/241007) Toileting: Moderate Assistance (02/16/241007) Dressing Upper Body: Minimal Assistance (02/16/241007) Lower Body: Moderate Assistance (02/16/241007) Bathing Upper Body: Minimal Assistance (02/16/241007) Lower Body: Moderate Assistance (02/16/241007) Functional Ambulation Assistive Device: Rolling walker (02/16/241007) Distance in feet:: 20 (02/16/241007) Level of Assistance: Contact Guard (02/16/241007) Bed Mobility Sit-Supine: Supervision (Please comment) (02/16/241007) OT Transfers Sit-Stand: Contact Guard (02/16/241007) Stand-Sit: Contact Guard (02/16/241007) Balance Sit (Static): Good (02/16/241007) Sit (Dynamic): Good (02/16/241007) Stand (Static): Fair (02/16/241007) Stand (Dynamic): Fair (02/16/241007) Alarm Status Patient positioned in: Bed (02/16/241007) With: Bed alarm intact and functioning and call aguirre in reach (02/16/241007) Patient and Family Goals: to get well and to return home Patient Education Education Topic: Role of OT;Plan of care goals (02/16/241007) Review of Precautions: Safety;Fall (02/16/241007) Method of Education: Verbalized to patient (02/16/241007) Education Provided to: Patient (02/16/241007) Response to Education: Receptive and agreeable to education (02/16/241007) Barriers to learning: Medical status (02/16/241007) Treatment Provided: Therapeutic Activity: 41 minutes Evaluation Moderate Complexity 10 minutes - 84974: Patient was cooperative and pleasant during treatment session. Moderate complexity evaluation performed and 3-5 activity limitations were identified, including ADL deficit, functional mobility deficit, decreased strength, decreased endurance, and impaired balance. Minimal or moderate modification of the functional task was necessary to complete the evaluation. Deficits Requiring O.T. Treatment: Deficits requiring O.T. treatment needs: ADL/self-care;Balance;Endurance;Fine motor coordination;Functional mobility;IADL;Safety;Upper extremity strength;Upper extremity range of motion;Weakness (02/16/241007) Goals: Bathing: Upper: modified independent (100% with device and additional time). Lower: modifiedindependent (100% with device and additional time) Dressing: Upper: modified independent (100% with device and additional time). Lower: modified independent (100% with device and additional time). Transfers with: Sit to Stand: modified independent (with device or slow) Toilet: modified independent (with device or slow) Bed to Chair/Wheelchair: modified independent (with device or slow). Demonstrates ability to tolerate 3/3 meals OOB for 2 consecutive days in a row. Demonstrates Grooming at modified independent (100% with device and additional time). Demonstrates toileting at modified independent (100% with device and additional time) Goal Time Frame: Within 1-10 treatment sessions Assessment: Pt tolerated OT session well. Pt was A&Ox4 and able to answer all prior functional level questions without assist. Pt's vision was screened for tracking, acuity, and saccades. Pt demonstrated all WFL. L eye minimally converges during assessment of convergence. While seated EOB, pt demonstrated B UE strength and ROM WFL. Pt with intact B UE sensation. Pt required bed height to be increased for sit > stand. Pt required CG to don underwear while seated and in stance. The patient was screened with the Short Blessed Test. Ths screening is designed to identify early cognitive impairment. Scores in the impaired range indicate a need for further assessment. Scores in the normal range suggest that a dementing disorder is unlikely, but a very early disease process cannot be ruled out. More advanced assessment may be warranted in cases where other objective evidence of impairment exists. Patients Score: 13. Unable to determine cognitive deficits vs word finding difficulty. Pt utilized Rolling walker and was able to ambulate 25' with Minimal Assistance. OT AM-PAC: 16 Pt requires assist with grooming, bathing, dressing , and toileting. As such, Would consider post-acute care services which may include home health, retirement, outpatient therapy,or inpatient rehab. The level of care will be determined in collaboration with the patient, family/caregiver, and care team members. Skilled OT services warranted here at [facility] to address deficits in ADLs and functional mobility. Treatment Plan: Energy Conservation, Safety, Homemaking Skills, Bed mobility training, Functional Ambulation, Transfer training, Coordination Tasks, ROM exercises, Upper extremity strengthening, Balance activities, ADL training, and Endurance Anticipated Frequency (on eval): 1 to 3 times per week (02/16/241007) AM-PAC Help From Another Person Eating Meals: None (02/16/241007) Help From Another Person Taking Care of Personal Grooming: A little (02/16/241007) Help From Another Person To Put On/Take Off Upper Body Clothing: A little (02/16/241007) Help From Another Person To Put On/Take Off Lower Body Clothing: A lot (02/16/241007) Help From Another Person Toileting: A lot (02/16/241007) Help From Another Person Bathing: A lot (02/16/241007) OT AM-PAC Score: 16 (02/16/241007) OT AM-PAC t-Scale Score: 35.96 (02/16/241007) HLM (Highest Level of Mobility) Goal: Level 4 move to chair/commode (02/16/24 0800) * Cynthia Roberts, UNIT LEADER - 02/16/2024 7:46 AM EDTAssociated Order(s): WOUND CONSULT IP Order: WOUND CONSULT IP [CUSTOM: [id number]] Order #: [id number]: [id number] Priority: Routine Class: Nursing Unit Reason for Con sult: -> left ear dressings and monitoring Consulting Provider: -> Kami Provider Released on: 02/15/2024 2:09 PM Priority: Routine Class: Nursing Unit Reason for Consult: -> left ear dressings and monitoring Consulting Provider: -> Kami Provider Released on: 02/15/2024 2:09 PM Wound Care consult done for Ear wounds. Pt had CA removed from his ear in March of 2023. Pt has been residing in [facility] over the last year wit hospital stays etc. Contacted [facility] spoke with Norma, wound nurse at the facility. She states they were cleansing with Dakins, applying Vaseline and Oil Emulsion with ABD and Netting to secure in place. POC to continue with same treatment as the facility at this time as it seems to be working measurements are smaller here verse [facility]. HPI; Information obt from chart, and patient: Stephen Varela is a 78 year old male who presents to the ED for evaluation of Neuro Deficit/Stroke/TIA. The patient was seen at 02/15/24 0958. Pt sent in from SNF due to confusion and abnormal speech. He also had some labs done this morning, showing CLAUDY. Currently on IV Abx at the home via PICC line. SNF reported what they believe to be dysarthria and aphasia. LKW reported 2 days ago on Monday. Upon arrival, pt denied headache, vision change, neck pain, chest pain, dyspnea, weakness/numbness/tingling in extremities; however, history of somewhat limited due to his mental status. Past medical history: Past Medical History: Diagnosis Date Atrial fibrillation (HCC) 2011 Heart failure, systolic, due to CAD ([facility]) 08/28/2012 ECHO 2011 - Segmental wall abnormality, severe hypokinesis of anterior septum, anterior wall, apex,distal inferior septum, distal inferior wall, and distal posterior wall EF 33% Secondary hypercoagulable state ([facility]) 05/01/2014 Social History Socioeconomic History Marital status: Spouse name: Not on file Number of children: Not on file Years of education: Not on file Highest education level: Not on file Occupational History Not on file Tobacco Use Smoking status: Former Current packs/day: 0.00 Types: Cigarettes Quit date: 2003 Years since quittin.5 Passive exposure: Past Smokeless tobacco: Never Tobacco comments: smoked, and quit in 2003 Vaping Use Vaping status: Never Used Substance and Sexual Activity Alcohol use: No Drug use: No Sexual activity: Not on file Other Topics Concern Not on file Social History Narrative - Lives with Spouse Home is Smoke Free Second marriage. Mr. Varela has three adult children ([place] [facility]) and seven grands, and his has two. Family History: [facility]. Social Determinants of Health Financial Resource Strain: Low Risk (10/10/2023) Financial Resource Strain Do you have any trouble paying for your medications, or do you think you might in the future? (Adult - for ages 18 years and over): No Does your family have trouble paying for medicine? (Household - for ages 0-17 years): Not on file Food Insecurity: No Food Insecurity (12/13/2023) Food Insecurity Do you need food for this week? (Adult - for ages 18 years and over): No Are you able to get enough food for your family? (Household - for ages 0-17 years): Not on file Does your family need food this week? (Household - for ages 0-17 years): Not on file Do you always have enough food for your family? (Household - for ages 0-17 years): Not on file Transportation Needs: No Transportation Needs (12/13/2023) Transportation Needs Do you have trouble getting a ride to medical visits or work? (Adult - for ages 18 years and over):Never True Does your family have a hard time getting a ride to doctors visits? (Household - for ages 0-17 years): Not on file Has lack of transportation kept you from medical appointments, meetings, work, or from getting things needed for daily living? Check all that apply. (Adult - for ages 18 years and over): Not on file Do you (or your family) have trouble finding or paying for a ride (transportation)? (Household - for ages 0-17 years): Not on file Social Connections: Socially Integrated (10/10/2023) Social Connections How often do you feel lonely or isolated from those around you? (Adult - for ages 18 years and over): Never Housing Stability: Low Risk (12/13/2023) Housing Stability Do you currently live in a senior living or have no steady place to sleep at night? (Adult - for ages 18 years and over): No Do you think you are at risk of becoming homeless? (Adult - for ages 18 years and over): No Does your family worry about paying for your home or becoming homeless? (Household - for ages 0-17 years): Not on file Are you homeless or worried that you might be in the future? (Adult - for ages 18 years and over): Not on file Are you (or your family) homeless or worried that you might be in the future? (Household - for ages0-17 years): Not on file No family history on file. Allergies: Review of patient's allergies indicates: Allergen Reactions Bee Venom Hives Code status: Code Status: Full Code Focused Wound Assessment: VS:BP 168/87 | Pulse 61 | Temp 37.2 C (99 F) (Temporal Artery) | Resp 18 | Ht 1.803 m (5' 11") | Wt 108.3 kg (238 lb 12.8 oz) | SpO2 96% | BMI 33.31 kg/m | BSA 2.33 m General:Pt was sitting on the edge of the bed in a dangle position upon entry. A/O/x4 wifty at times. Neuro: A/O/x4, makes odd non related remarks at times MS:Good, strong Vamsi:18 Fall score:65 Support surface: Standard Mattress Routine repositioning past 24 hrs:No Moisture management past 24 hrs:Moisture absorbant padding Nutritional support: Reg. Diet Review of Labs/Tests: Latest Reference Range & Units 02/16/24 05:26 Sodium 135 - 146 mmol/L 143 Potassium 3.5 - 5.1 mmol/L 3.8 Chloride 98 - 107 mmol/L 108 (H) CO2 22 - 32 mmol/L 20 (L) BUN 6 - 20 mg/dL 48 (H) Creatinine 0.6 - 1.2 mg/dL 2.3 (H) Estimated Glomerular Filtration Rate >=60 mL/min 29 (L) Anion Gap 7 - 15 mmol/L 15 Glucose 70 - 120 mg/dL 88 Calcium 8.4 - 10.2 mg/dL 9.6 Magnesium 1.5 - 2.6 mg/dL 2.1 Phosphorus 2.5 - 4.8 mg/dL 3.9 Protein 6.0 - 8.3 g/dL 6.7 INR 0.8 - 1.2 2.4 (H) Prothrombin Time 11.6 - 15.2 seconds 26.5 (H) CBC Rpt ! WBC 4.00 - 10.80 K/uL 8.59 RBC 4.50 - 5.25 M/uL 3.41 HGB 14.0 - 16.8 g/dL 9.2 (L) HCT 40.0 - 48.4 % 29.6 (L) MCV 82.0 - 99.5 fL 86.8 MCH 27.0 - 34.0 pg 27.0 MCHC 32.0 - 36.0 g/dL 31.1 RDW 11.5 - 15.5 % 17.2 PLT 140 - 400 K/uL 104 (L) MPV 6.6 - 11.1 fL 10.7 Albumin 3.8 - 5.0 g/dL 3.6 (L) AST 10 - 50 U/L 15 ALT 10 - 50 U/L 11 Alkaline Phosphatase 35 - 130 U/L 77 Bilirubin, Total <=1.2 mg/dL 0.3 Vancomycin Random 10.0 - 40.0 ug/mL 38.2 (H): Data is abnormally high (L): Data is abnormally low !: Data is abnormal Rpt: View report in Results Review for more information Interventions/treatments: Pt was seen and examined at bedside. Introduces self and role as wound care nurse. Pt verbalizes understanding at this time. Cleansed L ear with Dakins and pat dry, applied Vaseline with Oil Emulsioncovered with ABD and Netting around head. Recommendations: Cleansed L ear daily with Dakins solution, apply Vaseline with Oil Emulsion gauze to ear wound place ABD and large netting around pt's head to secure in place. Thank you for consult. Coordinated care w/ Dr. Raymond Call or TT w/ any questions or concerns. Linda Roberts Licensed Practical Nurse, Wound Care Wound Care Resource Nurse documented in this encounter Nursing Notes * Travis Frye LPN - 02/21/2024 4:43 AM EDT Pt pleasant and cooperative. Pt wd care done by this nurse; no s/sx of infection noted. Pt used urinal and was continent of urine. Pt denied pain and is able to make all needs known. Pt did request that light in room be left on and pt slept with sheet over head at times. * Lou Young RN - 02/19/2024 8:41 PM EDT 2031- Wound care completed at this time per wound care note instructions and MAR. Old dressings removed. Dakins 1/2 strength, vaseline applied. Covered with oil emulsion, dry gauze, and abd. * Dereck Parnell RN - 02/15/2024 2:57 PM EDT Dual Licensed Skin Assessment completed by Sagar Parnell RN and Marian Espinosa RN. The patient is/has a N/A Skin Breakdown (includes non blanchable erythema): No Sacrum & buttocks pink blanchable. * Halley Espinosa RN - 02/15/2024 2:55 PM EDT 1347 - Pt arrived to floor via wheelchair. Ambulated 2A with walker to the bed. VS obtained. Dual skin and admission assessments completed. Pt oriented to room and call aguirre. Bed alarm on. Call aguirre within reach. All needs met at this time. documented in this encounter ED Notes * Cooper Phoenix MD - 02/15/2024 10:04 AM EDT HISTORY OF PRESENT ILLNESS Stephen Varela is a 78 year old male who presents to the ED for evaluation of Neuro Deficit/Stroke/TIA. The patient was seen at 02/15/24 0958. Pt sent in from SNF due to confusion and abnormal speech. He also had some labs done this morning, showing CLAUDY. Currently on IV Abx at the home via PICC line. SNF reported what they believe to be dysarthria and aphasia. LKW reported 2 days ago on Monday. Upon arrival, pt denied headache, vision change, neck pain, chest pain, dyspnea, weakness/numbness/tingling in extremities; however, history of somewhat limited due to his mental status. All: Bee venom Review of Systems Neurological: Positive for speech difficulty. Psychiatric/Behavioral: Positive for confusion. The patient's allergies, past history, and medications were reviewed. PHYSICAL EXAM Initial Vitals (see all): BP 168/70 | Pulse 57 | Resp 20 | Temp 97.2 | O2 98 %, Room Air, None | Weight 113.4 kg | Height 180.3 cm | BMI 34.87 kg/m2 Initial Pain Assessment (see all): 0 (no pain)/10 ([facility] Adult Scale 0-10) Physical Exam Constitutional: General: He is not in acute distress. Appearance: He is not ill-appearing, toxic-appearing or diaphoretic. Eyes: Extraocular Movements: Extraocular movements intact. Pupils: Pupils are equal, round, and reactive to light. Cardiovascular: Rate and Rhythm: Regular rhythm. Bradycardia present. Pulmonary: Effort: Pulmonary effort is normal. Breath sounds: Normal breath sounds. Abdominal: General: There is no distension. Palpations: Abdomen is soft. Tenderness: There is no abdominal tenderness. Neurological: Mental Status: He is alert. He is disoriented and confused. GCS: GCS eye subscore is 4. GCS verbal subscore is 4. GCS motor subscore is 6. Cranial Nerves: Dysarthria present. Sensory: No sensory deficit. Motor: No weakness. Coordination: Coordination abnormal (difficulty with heel to frankel and finger to nose testing). PROCEDURES AND TREATMENTS ED Orders | ED Results MEDICAL DECISION MAKING Nursing notes and vital signs were reviewed. ED Course as of 02/15/24 1318 Deb Feb 15, 2024 1000 ED Triage Notes Pt brought to ED by EMS from [place] for confusion, and expressive aphasia/using inappropriate words since Monday. No unilateral weakness noted. Pt placed in [facility] for MRSA in L ear. 22G L hand. PICC in R arm. BSBS 123. [MM] 1001 ED Triage Notes Report from [facility]: Pt full code L ear CA. On IV abx for MRSA. PICC line RUE Typically AAOx4 and IND Staff reported Monday evening pt was "off" his baseline. Reported difficulty communicating. +expressive aphasia, word salad and R hand weakness Pt on coumadin. PT 24.9 and INR 2.2 BUN 30 last week, 49 today. Creatinine 1.2 last week, 2.3 today Receiving IV vanc once per day, received this today at 0600 Receives IV cefepime 3 times per day, did not receive this yet today [MM] 1001 BP: 168/70 [MM] 1001 Pulse: 57 [MM] 1001 Resp: 20 [MM] 1001 SpO2: 98 % [MM] 1001 Temp: 36.2 C (97.2 F) [MM] 1052 My interpretation of the EKG shows rate 58, atrial fibrillation with slow ventricular response, right bundle-branch block pattern noted, no acute ischemic changes noted. [MM] 1152 Creatinine(!): 2.3 CLAUDY [MM] 1253 IMPRESSION: Title of the somewhat limited study. Chronic changes.No gross acute intracerebral hemorrhage, mass effect or midline shift. [MM] 1253 Paged for admission [MM] ED Course User Index [MM] Cooper Phoenix MD Pt sent in for AMS for 2 days. Exam and vital signs as above. Labs show CLAUDY. CT head negative. Admitted to medicine for further eval and management . Amount and/or Complexity of Data Reviewed Labs: ordered. Decision-making details documented in ED Course. Radiology: ordered. ECG/medicine tests: ordered. Risk Decision regarding hospitalization. Clinical Impressions Electrolyte abnormality CLAUDY (acute kidney injury) (HCC) Disposition Admitted. I discussed the management of this patient with the admitting provider and I made a decision to admit the patient. Admission Order Ordered Status . 02/15/24 1303 Admit for Inpatient Services (incl ZPO) ONCE Acknowledged Cooper Phoenix * Crys Servin RN - 02/15/2024 9:27 AM EDT Pt brought to ED by EMS from [place] for confusion, and expressive aphasia/using inappropriate words since Monday. No unilateral weakness noted. Pt placed in [facility] for MRSA in L ear. 22G L hand. PICC in R arm. BSBS 123. * Consuelo Andrade RN - 02/15/2024 9:23 AM EDT Report from [facility]: Pt full code L ear CA. On IV abx for MRSA. PICC line RUE Typically AAOx4 and IND Staff reported Monday evening pt was "off" his baseline. Reported difficulty communicating. +expressive aphasia, word salad and R hand weakness Pt on coumadin. PT 24.9 and INR 2.2 BUN 30 last week, 49 today. Creatinine 1.2 last week, 2.3 today Receiving IV vanc once per day, received this today at 0600 Receives IV cefepime 3 times per day, did not receive this yet today documented in this encounter Miscellaneous Notes * Ancillary Progress Note - Consuelo Dunne Sole Conditioner - 02/21/2024 4:24 PM EDT Approved co-here auth. Authorization #[id number] Tracking #[id number] * Progress Notes - Non-Billable - Loreta Luna MD - 02/21/2024 3:43 PM EDT DISCHARGE PROGRESS NOTE - Infectious Disease [facility] [address] Name: Stephen Varela Location: [facility] 5A-5105/W Date: 02/21/2024 Time: 3:44 PM FINAL IMPRESSION AND RECOMMENDATIONS: Syndrome Osteomyelitis Left mastoiditis Microbiology N/A Hx of pseudomonas and other aerobic and anaerobic bacteria Antibiotic Meropenem 500 mg IV q 8 hrs (adjust for renal function) End Date 03/07/24 Syndrome Osteomyelitis left mastoiditis Microbiology Staphylococcus aureus (MRSA) Antibiotic Daptomycin 750 mg IV q 48 hrs (adjust for renal function) End Date 03/07/24 Vascular access: Remove intravascular access after completion of antibiotics Recommended followup imaging studies: Not applicable LABORATORY MONITORING: Lab Test Frequency End Date CBC with diff CMP CPK Q week 03/07/24 PROVIDERS: Following ID Physician ID clinic follow-up date [place] Patient has an appointment on 04/02/24 * Ancillary Progress Note - Lou John COTA - 02/21/2024 10:24 AM EDT PROGRESS NOTE - Occupational Therapy [address] [address] Name: Stephen Varela Location: [facility] 5A-5105/W Date: 02/21/2024 Time: 1024 Stephen Varela is a 78 year old male. Patient Status: Inpatient Insurance: Payor: [facility] [employer] [place] Plan: [facility] [employer] CLASSIC 1 PART D MC-LD Product Type: *No Product type* Patient Seen: at bedside, nursing cleared patient for therapy Patient Identified By: Name, ID Band and Date Diagnosis: stroke like symptoms, L ear CA (02/16/24 1008) Status of treatment: Treatment completed (02/21/24 1024) Orders: OT evaluation and treatment (02/21/24 1024) Weight Bearing Status: Weight bearing as tolerated (02/21/24 1024) Precautions: Alarms;Falls;Safety (02/21/24 1024) Total Treatment Time: 49 (02/21/24 1024) Subjective: "They said my surgery caused carpal tunnel. 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 Pain located in R hand. Pt reported with use. Observations Consciousness: Alert (02/21/24 1024) Orientation: Oriented times 4 (02/21/24 1024) Cognitive Limitations: Processing;Attention to task (02/21/24 1024) Psychosocial: Patient can communicate basic needs;Patient can converse in a social setting (02/21/24 1024) Visual Deficits: (glasses) (02/16/24 1008) Sitting posture: Forward head;Rounded shoulders (02/21/24 1024) Standing posture: Forward head;Rounded shoulders (02/21/24 1024) Safety awareness: The Patient verbalizes insight of current deficits.;The Patient demonstrates carryover of insight during functional tasks.;The Patient can communicate basic needs.;Needs cueing supervision. (02/21/241023) Other Findings Light touch sensation: LUE;RUE;Intact (02/16/24 100) Coordination: LUE;RUE;Gross motor;Fine motor;Intact (02/16/241007) Current Functional Status: Activities of Daily Living: Self Care Able to provide self care: No (02/16/24 1008) Feeding: Independent (02/16/24 1008) Grooming: Minimal Assistance (02/16/241007) Toileting: Moderate Assistance (02/16/241007) Dressing Upper Body: Minimal Assistance (02/16/24 100) Lower Body: Moderate Assistance (02/16/24 1008) Bathing Upper Body: Minimal Assistance (02/16/24 1008) Lower Body: Moderate Assistance (02/16/24 1008) Functional Ambulation Assistive Device: No device;Rolling walker (02/21/24 1024) Distance in feet:: 7 (2ft x1 (no device), 5ft x1 (RW)) (02/21/24 1024) Level of Assistance: Contact Guard (no device, supervision with RW) (02/21/24 1024) Bed Mobility Sit-Supine: Supervision (Please comment) (02/16/241007) OT Transfers Sit-Stand: Contact Guard (to supervision) (02/21/24 1024) Stand-Sit: Contact Guard (to supervision) (02/21/24 1024) Balance Sit (Static): Good (02/16/248) Sit (Dynamic): Good (02/16/241007) Stand (Static): Fair (02/16/241007) Stand (Dynamic): Fair (02/16/241007) Patient Education Education Topic: Role of OT;Plan of care goals (02/16/241007) Review of Precautions: Safety;Fall (02/16/241007) Method of Education: Verbalized to patient (02/16/241007) Education Provided to: Patient (02/16/241007) Response to Education: Receptive and agreeable to education (02/16/241007) Barriers to learning: Medical status (02/16/241007) Alarm Status Patient positioned in: (W/C propelling I in hallway) (02/21/24 1024) With: Bed alarm intact and functioning and call aguirre in reach (02/16/241007) Treatment Provided: Therapeutic Procedure: 49 minutes Upper Extremity exercise Demonstrate Exercises: RUE;Grasp;1 set of 10;2 sets of 10;Flexion;Extension;Abduction;Adduction (02/21/24 1024) Peformed in: Seated (02/21/24 1024) Deficits requiring O.T. treatment needs: ADL/self-care;Balance;Endurance;Fine motor coordination;Functional mobility;IADL;Safety;Upper extremity strength;Upper extremity range of motion;Weakness (02/16/241007) Assessment: Pt was agreeable to participating in treatment. OT AMPAC remained the same at 16. Pt propelling self I in hallway in W/C. Pt returned to room. He required CGA sit <> stand and to transfer from W/C to EOB with no device. Once sitting at EOB pt received HEP and pink (soft) and green(medium) theraputty. HEP reviewed with pt and pt completed tasks including: finger extension, resisted finger extension, resisted thumb extension/abduction, gross go go dancer strength, thumb radial adduction (lateral pinch), resisted finger flexion, thumb opposition, and resisted putty pinch and pull. Pt completed these with good tolerance. Exercises were completed to increase improvement with ADLs, functional mobility, ROM, and strength. Pt required supervision sit <> stand (from elevated EOB),and to transfer from EOB to W/C with RW. Pt was left in W/C propelling in hallway. Plan: Continue treatment as directed by the OT consult. Anticipated Frequency (on eval): 1 to 3 times per week (02/16/24 1008) Equipment Equipment used in Therapy: Hospital bed;Rolling walker;Wheelchair (02/21/24 1024) AM-PAC Help From Another Person Eating Meals: None (02/21/24 1024) Help From Another Person Taking Care of Personal Grooming: A little (02/21/24 1024) Help From Another Person To Put On/Take Off Upper Body Clothing: A little (02/21/24 1024) Help From Another Person To Put On/Take Off Lower Body Clothing: A lot (02/21/24 1024) Help From Another Person Toileting: A lot (02/21/24 1024) Help From Another Person Bathing: A lot (02/21/24 1024) OT AM-PAC Score: 16 (02/21/24 1024) OT AM-PAC t-Scale Score: 35.96 (02/21/24 1024) JH HLM (Highest Level of Mobility) Goal: Level 5 standing (1 or more minutes) (02/20/242158) * Care Plan - Domonique Mclain RN - 02/21/2024 5:24 AM EDT Clinical Goal(s): Pt will remain free of falls during shift (02/20/24 2314) Possible barriers to meeting goal(s)/advancing plan of care: unfamiliar environment Stability of the patient: Moderately stable - low risk of patient condition declining or worsening Summary regarding today's goal(s): Met: Pt had no falls during shift Recommendations: Continue to encourage ambulation as tolerated. * Care Plan - Anastasiia Chavez RN - 02/20/2024 5:48 PM EDT Clinical Goal(s): Pt will remain free of falls this shift (02/20/24 0861) Possible barriers to meeting goal(s)/advancing plan of care: Weakness Stability of the patient: Moderately stable - low risk of patient condition declining or worsening Summary regarding today's goal(s): Met: Patient remained free of falls this shift Recommendations: Continue fall precautions * Ancillary Progress Note - Ladan Robles PTA - 02/20/2024 3:05 PM EDT PROGRESS NOTE - Physical Therapy [facility]-[address] [address] Name: Stephen Varela Location: [facility] 5A-5105/W Date: 02/20/2024 Time: 3:05 PM Stephen Varela is a/an 78 year old male. Patient Status: Inpatient Insurance: Payor: [employer] Plan: [employer] CLASSIC 1 PART D MC-LD Product Type: *No Product type* Patient Seen: at bedside, nursing cleared patient for therapy Patient Identified By: Name, ID Band and Date Diagnosis: weakness, gait abnormality (02/20/24 1505) Status of treatment: Treatment completed (02/20/24 1505) Orders: PT evaluation and treatment (02/16/24 1355) Weight Bearing Status: Weight bearing as tolerated (02/20/24 1505) Precautions: Falls;Safety (02/20/24 1505) Total Treatment Time--free text: 38 minutes (02/20/24 1505) Subjective: Patient agreeable to participate in tx session Pain: No complaints of pain P.T. Bed Mobility Supine-Sit: Modified Independent (02/20/24 1505) Sit-Supine: Modified Independent (02/20/24 1505) Transfers Sit-Stand: Supervision (02/20/24 1505) Stand-Sit: Supervision (02/20/24 1505) W/C-Bed/Mat: Minimal Assistance (02/17/24 1155) Ambulation: Distance ambulated (feet): 300 ft x2 Assistive Device: Rolling walker Assist: Supervision Balance Sit (Static): Good (02/20/24 1505) Sit (Dynamic): Good (02/20/24 1505) Stand (Static): Fair (02/20/24 1505) Stand (Dynamic): Fair (02/20/24 1505) Patient and or Family Goal(s): to get well and to return home Topic of Education: Safety with mobility and Goals/plan of care Extremity Exercise Sitting: Hip;Knee;Ankle (02/20/24 1505) Hip : Bilateral LE;Flexion;2 sets of 10 (02/20/24 1505) Knee : Bilateral LE;Flexion;Extension;2 sets of 10 (02/20/24 1505) Ankle: Bilateral LE;Plantar flexion;Dorsiflexion;2 sets of 10 (02/20/24 1505) Isometrics: Glute sets;Quad sets;1 set of 10 (02/16/24 1355) Method of Education: Verbal discussion and explanation provided to pt: verbalized understanding andor agreement of this information Treatment Provided: Therapeutic Activities 10 minutes: bed mobility training transfer training Gait Training 14 minutes: gait training with rolling walker Therapeutic Exercises: 14 minutes Alarm Status Patient positioned in: Bed (02/20/24 150) With: Call aguirre in reach (02/20/24 150) Patient Education Review of Precautions: Safety;Fall (02/20/24 150) Review of Exercises: Pt Demonstrated Exercise;Verbal Exercises Provided (02/20/24 150) Safety Awareness: Patient verbalizes insight of current deficits;Patient demonstrates carryover of insight during functional tasks;Patient can communicate basic needs (02/17/24 1155) Preferred learning method: Combination (02/16/24 1355) Barriers to learning: Medical Status (02/16/24 135) Method of Education: Verbalized to patient (02/16/24 135) Assessment: Patient is agreeable to participate in BLE exercises. seated BLE exercises completed asmentioned above in flow sheet to increase strength and facilitate improvement with functional mobility. Patient requires min cues for proper technique, achieving full ROM, and exercise progression. Patient demonstrates ability to perform bed mobility with mod I, transfers with supervision, and ambulation with supervision and RW. Deficits requiring P.T. treatment needs: Safety;Mobility;Balance;Lower extremity strength (355) Equipment needs: Rolling walker (02/20/24 150) Plan: Continue with current treatment plan established on evaluation. AM PAC Score with Stairs: 17 * Care Plan - Lou Young RN - 02/20/2024 5:31 AM EDT Clinical Goal(s): Pt will remain free from falls this shift (02/19/242017) Possible barriers to meeting goal(s)/advancing plan of care: weakness Stability of the patient: Moderately stable - low risk of patient condition declining or worsening Summary regarding today's goal(s): Met: Pt had no falls this shift Recommendations: continue plan of care and fall precautions * Care Plan - Flower Loyola RN - 02/19/2024 6:07 PM EDT Clinical Goal(s): Pt will remain free from falls (02/19/24 0815) Possible barriers to meeting goal(s)/advancing plan of care: Weakness, IV infusions Stability of the patient: Moderately stable - low risk of patient condition declining or worsening Summary regarding today's goal(s): Met: Pt remained free from falls throughout this shift Recommendations: Continue fall precautions * Ancillary Progress Note - Ladan Robles PTA - 02/19/2024 1:20 PM EDT PROGRESS NOTE - Physical Therapy [facility]-[address] [address] Name: Stephen Varela Location: [facility] [id number]/W Date: 02/19/2024 Time: 1:20 PM Stephen Varela is a/an 78 year old male. Patient Status: Inpatient Insurance: Payor: [facility] [employer] [place] Plan: [facility] GOLD CLASSIC 1 PART D - Product Type: *No Product type* Patient Seen: at bedside, nursing cleared patient for therapy Patient Identified By: Name, ID Band and Date Diagnosis: weakness, gait abnormality (02/19/24 1320) Status of treatment: Treatment completed (02/19/24 1320) Orders: PT evaluation and treatment (02/16/24 135) Weight Bearing Status: Weight bearing as tolerated (02/19/241319) Precautions: Falls;Safety (02/19/241319) Total Treatment Time--free text: 28 minutes (02/19/241319) Subjective: Patient agreeable to participate in tx session Pain: No complaints of pain P.T. Bed Mobility Supine-Sit: Supervision (02/19/241319) Sit-Supine: Supervision (02/19/241319) Transfers Sit-Stand: Supervision (02/19/241319) Stand-Sit: Supervision (02/19/241319) W/C-Bed/Mat: Minimal Assistance (02/17/24 115) Ambulation: Distance ambulated (feet): 180 + 245 ft Assistive Device: Rolling walker Assist: Supervision Balance Sit (Static): Good (02/19/241319) Sit (Dynamic): Good (02/19/241319) Stand (Static): Fair (02/19/241319) Stand (Dynamic): Fair (02/19/241319) Patient and or Family Goal(s): to get well and to return home Topic of Education: Safety with mobility and Goals/plan of care Extremity Exercise Sitting: Hip;Ankle;Isometrics;Knee (02/16/24 135) Hip : Bilateral LE;Abduction;Flexion;1 set of 10 (02/16/24 135) Knee : Bilateral LE;Extension;1 set of 10 (02/16/24 135) Ankle: Plantar flexion;Bilateral LE;Dorsiflexion;1 set of 10 (02/16/24 135) Isometrics: Glute sets;Quad sets;1 set of 10 (02/16/24 135) Method of Education: Verbal discussion and explanation provided to pt: verbalized understanding andor agreement of this information Treatment Provided: Therapeutic Activities 12 minutes: bed mobility training transfer training Gait Training 16 minutes: gait training with rolling walker Alarm Status Patient positioned in: Chair (02/19/241319) With: (in WC on unit) (02/19/241319) Patient Education Review of Precautions: Safety;Fall (02/19/241319) Review of Exercises: Pt Demonstrated Exercise;Verbal Exercises Provided (02/17/24 1155) Safety Awareness: Patient verbalizes insight of current deficits;Patient demonstrates carryover of insight during functional tasks;Patient can communicate basic needs (02/17/24 1155) Preferred learning method: Combination (02/16/24 1355) Barriers to learning: Medical Status (02/16/24 1355) Method of Education: Verbalized to patient (02/16/24 1355) Assessment: patient continues with an AM-PAC score of 17 requiring supervision for all mobility. Patient requests to only transfer from elevated surfaces due to difficulty with lower surfaces such asrecliner. Patient ambulates with slow gait with increased forward trunk flexion and decreased stride length but gait is overall steady with no LOB noted. Deficits requiring P.T. treatment needs: Safety;Mobility;Balance;Lower extremity strength (355) Equipment needs: Rolling walker (02/19/24 4770) Plan: Continue with current treatment plan established on evaluation. AM PAC Score with Stairs: 17 * Care Plan - Miriam Ivy RN - 02/19/2024 5:59 AM EDT Clinical Goal(s): Pt will rate pain no higher than a "5" throughout the shift (02/18/241999) Possible barriers to meeting goal(s)/advancing plan of care: wound on left ear Stability of the patient: Moderately stable - low risk of patient condition declining or worsening Summary regarding today's goal(s): Met: Pt's pain was managed with prn apap Recommendations: Continue plan of care * Care Plan - Jemma Fortune RN - 02/18/2024 6:09 PM EDT Clinical Goal(s): Pt will ambulate in the beyer this shift. (02/18/24 0700) Possible barriers to meeting goal(s)/advancing plan of care: clinical diagnosis Stability of the patient: Moderately stable - low risk of patient condition declining or worsening Summary regarding today's goal(s): Met: Pt ambulated in the beyer this shift. Recommendations: Continue plan of care * Pt Handout (on AVS) - Jemma Fortune RN - 02/18/2024 1:26 PM EDT [id number] Heart Failure What is heart failure? The heart is a muscle that pumps oxygen-rich blood to all parts of the body. When you have heart failure, the heart can?t pump as well as it should. Or the heart muscle can?t relax and fill the pumping chamber with blood. Blood and fluid may back up into the lungs. This causes heart failure. And itcauses pulmonary edema. Some parts of the body also don?t get enough oxygen-rich blood. This means they can't work well. These problems lead to the symptoms of heart failure. What causes heart failure? Heart failure may result from: Heart valve disease High blood pressure Active infections of the heart valves or heart muscle, such as endocarditis A past heart attack Coronary artery disease Disease of the heart muscle (cardiomyopathy) Heart problems that are present at (congenital heart defects) Heart rhythm problems (arrhythmias) Long-term (chronic) lung disease and pulmonary embolism A reaction to medicines, such as those used for chemotherapy Anemia and too much blood loss Thyroid disorders Diabetes Alcohol and drug abuse Certain viral infections What are the symptoms of heart failure? The most common symptoms of heart failure are: Shortness of breath while resting, exercising, or lying flat Weight gain from water retention Visible swelling of the legs, ankles, and feet from fluid buildup. Sometimes the belly (abdomen)may swell. Severe tiredness (fatigue) and weakness Loss of appetite, nausea, and belly pain Cough that doesn?t go away. It can cause blood-tinged or frothy sputum. The severity of the condition and symptoms depends on how much of the heart's pumping ability has been affected. The first step in managing heart failure symptoms is knowing your baselines or what?s normal for you. How much do you weigh? Are you gaining weight but eating the same amount? How much can you do before you feel short of breath? Do your socks and shoes fit comfortably? Knowing what?s normal for you will help you see when symptoms are getting worse. Once you know your baselines, watchfor changes daily. The symptoms of heart failure may look like other health problems. Always see your healthcare provider for a diagnosis. How is heart failure diagnosed? Your healthcare provider will ask about your health history. They will give you a physical exam. You may need tests, such as: Chest X-ray. This test makes images of internal tissues, bones, and organs on film. This test shows the size and shape of your heart. Fluid in the lungs will also show up on X-ray. Echocardiogram. This test is also called an echo. It uses sound waves to assess the motion of the heart?s chambers and valves. The sound waves make an image on the screen as an ultrasound transducer is passed over the heart. This shows how well the heart pumps and relaxes. It also shows the thickness of the heart mckeon, and if the heart is enlarged. It can assess heart valve function and bloodflow as well. It is one of the most useful tests because it shows a lot of information about the heart?s function. And it can help guide treatment choices. Electrocardiogram. This test records the electrical activity of the heart. It shows abnormal rhythms. It can sometimes find heart muscle damage. BNP testing. B-type natriuretic peptide (BNP) is a hormone released from the ventricles that occurs with heart failure. BNP levels are useful in the quick assessment of heart failure. The higher the BNP levels, the worse the heart failure. BNP is measured from a blood sample. Cardiac MRI. This test uses a magnetic field to make images of the heart and its nearby tissues.It can assess how the heart muscle and valves are working. How is heart failure treated? The cause of heart failure will guide the treatment plan. If heart failure is caused by a valve problem or coronary heart disease, then you may need a procedure. This may be a percutaneous coronary intervention. Or it may be surgery. If heart failure is caused by a problem, such as anemia or an infe ction, you may need medicine to treat this problem. Some causes of heart failure are reversible or short-term, such as an acute infection. For many causes of heart failure there is no cure. But many forms of treatment can help with symptoms. They are listed below. Lifestyle changes These healthy habits may help with heart failure: Controlling blood pressure Controlling blood sugar if you have diabetes Quitting smoking Maintaining a healthy weight. Losing weight, if needed Regular exercise Limiting salt and fat in your diet Not drinking alcohol or using illicit drugs Getting enough rest Reducing stress Other important lifestyle habits include getting vaccines, such as for the flu and pneumococcal pneumonia. If you have sleep problems, getting a sleep study can help find out what?s causing them. You may need to wear a C-PAP mask while you sleep. This will make sure you get enough oxygen. Too little oxygen can put stress on your heart. Medicines Many types of medicines are available for heart failure. They include: Angiotensin converting enzyme (SPENCER) inhibitors. These lower the pressure inside the blood vessels. This reduces the pressure that the heart has to pump against. They can also help the heart have better pumping ability over time. Angiotensin receptor blockers (ARB). Some people get a cough and need to stop taking SPENCER inhibitors. If that happens, an ARB may work for you. These help relax blood vessels and reduce stress on the heart. Angiotensin receptor-neprilysin inhibitors (ARNIs). This medicine combines an ARB and a neprilysin inhibitor. This can help the heart as noted above. And it can promote salt and water loss. This medicine is preferred over SPENCER inhibitors and ARBs alone. Diuretics. These reduce the amount of fluid in the body. They are among the most important medicines in helping control fluid buildup in the body. Beta-blockers. These reduce the heart?s tendency to beat faster. They can also help the heart pump better over time. Aldosterone blockers. These block the effects of the hormone aldosterone. This hormone causes sodium and water retention. Vasodilators. These include hydralazine and nitroglycerin. These widen (dilate) the blood vessels. They reduce the workload on the heart. Statins or PCSK9 inhibitors. These lower the amount of bad cholesterol in your blood. They are not used to treat heart failure. But you may take one if you have high cholesterol. Or you may take one if you have had a past heart attack and are at risk for heart failure. People who have inherited forms of high cholesterol (familial hypercholesterolemia) may get help from PCSK9 inhibitors. These medicines lower cholesterol. Sodium-glucose cotransporter-2 (SGLT2) inhibitors. They block your kidneys from reabsorbing sugar from the blood. This helps your body get rid of extra salt and water and so lowers your blood pressure. Lowering your blood pressure eases the strain on your heart. Digitalis. This medicine helps the heart beat stronger. It may help with controlling heart rate if there is an abnormal heart rhythm. Antiarrhythmics. These help keep normal heart rhythm. Sinus node I-f channel darcy. This may be used to lower your heart rate. It may result in lessstress on your heart. This medicine is reserved for people who still have high resting heart rates despite use of beta blockers. Heart procedures These include opening blocked arteries in the heart. This brings back blood flow to the heart muscle. It helps the ventricles squeeze as they should. The procedure can be done in the cardiac catheterization lab. It uses balloons to push plaque and blood clots out of the artery. It also uses stents to keep the artery open. This can also be done by bypassing blockages during surgery (coronary artery bypass surgery). Heart valve repair or replacement In some cases, medicines can?t help heart failure caused by heart valves that are narrowed (stenosed) or leak (regurgitant). The heart valve can be repaired or replaced. This can be done as an open-heart procedure. Or it can be done by going through a small tube (catheter) that is put into an artery or vein. Pacemaker If your heart failure has also damaged your heart?s electrical wiring system, a pacemaker can be implanted. This is done to restore normal heart rate and regularity. A cardiac resynchronizing pacemaker is used when one of the natural heart wires is damaged. This is often the wire located in the left ventricle. These pacemakers use implanted left and right sided wires to restore normal timing of the heart contraction in order to improve heart function. ICD (implantable cardioverter defibrillator) When the heart muscle is damaged, dangerous heart circuits can form in the heart muscle. This leadsto heart rhythms that can cause . An ICD is implanted in the body to sense and treat these cardiac arrest rhythms. It does this by overdrive pacing the heart rhythm. Or it sends an energy shock to the heart. VAD (ventricular assist device) This device is put in the chest during a surgery. It connects to an outside motor. The motor helps pump blood from the heart to the rest of the body. VADs can allow people with advanced heart failureto improve their overall symptoms and to walk more. This can be used as a long-term treatment. Or it can be used while someone waits for a donor heart for a transplant. Heart transplant In some cases, the diseased heart must be replaced with a healthy one from a donor. Talk with your healthcare providers about the risks, benefits, and possible side effects of all treatments. What are possible complications of heart failure? Complications of heart failure include: Fluid buildup in the lungs (pulmonary edema) Kidney and liver failure Stroke Abnormal heart rhythms How daily issues affect your health Many things in your daily life impact your health. This can include transportation, money problems,housing, access to food, and child advocate. If you can?t get to medical appointments, you may not receive the care you need. When money is tight, it may be difficult to pay for medicines. And living farfrom a grocery store can make it hard to buy healthy food. If you have concerns in any of these or other areas, talk with your healthcare team. They may know of local resources to assist you. Or they may have a staff person who can help. Hamm points about heart failure When you have heart failure, the heart can?t pump as well as it should. Heart failure may result from health problems that affect the heart, such as high blood pressure, coronary artery disease, and heart attack. Some common symptoms are shortness of breath, weight gain, and visible swelling of the legs and ankles. A chest X-ray can help diagnose lung congestion. Treatment varies based on the cause of heart failure. Most people are advised to make certain lifestyle changes and to take certain medicines, often for life. Procedures, such as coronary intervention and surgery, may be needed. Next steps Tips to help you get the most from a visit to your healthcare provider: Know the reason for your visit and what you want to happen. Before your visit, write down questions you want answered. Bring someone with you to help you ask questions and remember what your provider tells you. At the visit, write down the name of a new diagnosis, and any new medicines, treatments, or tests. Also write down any new instructions your provider gives you. Know why a new medicine or treatment is prescribed, and how it will help you. Also know what theside effects are. Ask if your condition can be treated in other ways. Know why a test or procedure is recommended and what the results could mean. Know what to expect if you do not take the medicine or have the test or procedure. If you have a follow-up appointment, write down the date, time, and purpose for that visit. Know how you can contact your healthcare provider if you have questions, especially after officehours or on weekends. Last Reviewed Date: 02/18/202319999739-0284 [employer]. All rights reserved. This information is not intended as a substitute for professional medical care. Always follow your healthcare professional's instructions. 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 Orders placed by me. Final abx plans pending. Time spent: 20 minutes * Care Plan - Miriam Ivy RN - 02/18/2024 5:26 AM EDT Clinical Goal(s): Pt will be free of falls (02/17/24 1915) Possible barriers to meeting goal(s)/advancing plan of care: weakness Stability of the patient: Moderately stable - low risk of patient condition declining or worsening Summary regarding today's goal(s): Met: Pt without fall or injury this shift Recommendations: Continue plan of care * Care Plan - Domonique Mclain RN - 02/17/2024 4:54 PM EDT Clinical Goal(s): Pt will remain free of falls during shift (02/17/24 1500) Possible barriers to meeting goal(s)/advancing plan of care: hospital enviroment Stability of the patient: Moderately stable - low risk of patient condition declining or worsening Summary regarding today's goal(s): Met: Pt was free of falls during shift Recommendations: Pt was able to ambulate in halls in afternoon with supervision. Continue fall precautions, ambulate as tolerated. * Ancillary Progress Note - Regine Norwood RN - 02/17/2024 3:15 PM EDT Images from the original note were not included. Patient referral for auth submitted to [facility] [place] of IV antibiotics. * Ancillary Progress Note - Maury Jones PTA - 02/17/2024 11:55 AM EDT PROGRESS NOTE - Physical Therapy [address] [address] Name: Stephen Varela Location: [facility] 5A-5105/W Date: 02/17/2024 Time: 115 Stephen Varela is a/an 78 year old male. Patient Status: Inpatient Insurance: Payor: [facility] [employer] [place] Plan: [facility] [employer] [place] CLASSIC 1 PART D MC-LD Product Type: *No Product type* Patient Seen: at bedside, nursing cleared patient for therapy Patient Identified By: Name, ID Band and Date Diagnosis: weakness, gait abnormality (02/16/24 1355) Status of treatment: Treatment completed (02/17/24 115) Orders: PT evaluation and treatment (02/16/24 1355) Weight Bearing Status: Weight bearing as tolerated (02/17/24 115) Precautions: Safety;Falls;Isolation (02/17/24 115) Total Treatment Time--free text: 40 mins (02/17/24 115) Subjective: "Im want to go for a walk" Pain: No complaints of pain P.T. Bed Mobility Supine-Sit: Supervision (02/16/24 1355) Sit-Supine: Supervision (02/16/24 1355) Transfers Sit-Stand: Minimal Assistance (02/17/24 1155) Stand-Sit: Supervision (02/17/241154) W/C-Bed/Mat: Minimal Assistance (02/17/241154) Ambulation: Distance ambulated (feet): 300 Assistive Device: Rolling walker Assist: Supervision Balance Sit (Static): Good (02/16/241354) Sit (Dynamic): Good (02/16/241354) Stand (Static): Fair (02/16/241354) Stand (Dynamic): Fair (02/16/241354) Patient and or Family Goal(s): to get well and to return home Topic of Education: Safety with mobility, Use of assistive device, and Fall prevention Extremity Exercise Sitting: Hip;Ankle;Isometrics;Knee (02/16/241354) Hip : Bilateral LE;Abduction;Flexion;1 set of 10 (02/16/241354) Knee : Bilateral LE;Extension;1 set of 10 (02/16/241354) Ankle: Plantar flexion;Bilateral LE;Dorsiflexion;1 set of 10 (02/16/241354) Isometrics: Glute sets;Quad sets;1 set of 10 (02/16/241354) Method of Education: Demonstrated the above task to pt: verbalized understanding and or agreement of this information and demonstrated the exercise and or task Treatment Provided: Gait Training 15 minutes: gait training with rolling walker Therapeutic Exercises: 25 minutes Alarm Status Patient positioned in: Chair (02/17/241154) With: Call aguirre in reach (02/17/241154) Patient Education Review of Precautions: Safety;Fall (02/17/241154) Review of Exercises: Pt Demonstrated Exercise;Verbal Exercises Provided (02/17/241154) Safety Awareness: Patient verbalizes insight of current deficits;Patient demonstrates carryover of insight during functional tasks;Patient can communicate basic needs (02/17/241154) Preferred learning method: Combination (02/16/241354) Barriers to learning: Medical Status (02/16/241354) Method of Education: Verbalized to patient (02/16/241354) Assessment: Pt tolerated tx fair with no reported pain or SOB post tx session. Pt did report feeling fatigued post tx session. Pt was given Min A for STS and then SBA to ambulate with the RW. Pt is slow and displays a forward flexed trunk with decreased step length and speed. Pt fatigues easily with exertion. Pt had no LOB during GT bout. Pt performed seated exercises in the chair to increase strength and ROM to improve functional mobility. Pt left sitting up in the chair with feet on the floorand bedside table in front of pt. No needs post tx session. Pt instructed to not get up without assistance. Deficits requiring P.T. treatment needs: Safety;Mobility;Balance;Lower extremity strength (973863) Equipment needs: Rolling walker (02/16/24 1354) Plan: Continue with current treatment plan established on evaluation. AM PAC Score with Stairs: 17 * Care Plan - Gavi Pelayo RN - 02/16/2024 6:00 PM EDT Clinical Goal(s): Pt will remain free from injury during this shift (02/16/24 0800) Possible barriers to meeting goal(s)/advancing plan of care: admitting dx Stability of the patient: Moderately stable - low risk of patient condition declining or worsening Summary regarding today's goal(s): Met: Pt had no falls/injuries this shift Recommendations: monitor for risk of falls/injury, implement fall precautions, and continue plan ofcare * Pt Handout (on AVS) - Noé Zelaya RPh - 02/16/2024 11:27 AM EDT Images from the original note were not included. Warfarin - Video Let's take a minute to talk about your medication. This is warfarin, and you should take your dose as directed by your doctor. Warfarin prevents and treats blood clots. To view the video go to this web address: https://bit.[email or web address] Or, scan this QR code with your smart phone 2023 [employer] [place] / [employer]. All Rights Reserved. * Pt Handout (on AVS) - Noé Zelaya, [facility] - 02/16/2024 11:27 AM EDT Images from the original note were not included. [id number] Warfarin Oral Tablet Brands: Coumadin, Deliotoven Uses This medicine is used for the following purposes: prevent blood clots treatment of blood clots Instructions This medicine may be taken with or without food. This medicine will work best if you take it at about the same time every day. Keep the medicine at room temperature. Avoid heat and direct light. It is important that you keep taking each dose of this medicine on time even if you are feeling well. If you forget to take a dose on time, take it as soon as you remember. If you don't remember until the next day, please call your doctor for instructions. Never take a double dose or skip a dose unless your provider tells you to do so. Tell your doctor and pharmacist about all your medicines. Include prescription and lwbm-ssz-hhafllaydrpxziml, vitamins, and herbal medicines. Cautions Tell your doctor and pharmacist if you ever had an allergic reaction to a medicine. Do not use the medication any more than instructed. Contact your doctor if you notice a change in the amount or darkening of your urine. Tell the doctor or pharmacist if you are , planning to be , or . Women who are or in their childbearing years should not touch or handle this medicine. This medicine can be absorbed through the woman's skin and harm the unborn baby. Call your doctor right away if you notice any unusual bleeding or bruising. Do not share this medicine with anyone who has not been prescribed this medicine. Side Effects The following is a list of some common side effects from this medicine. Please speak with your doctor about what you should do if you experience these or other side effects. nausea red, burning, or itchy skin stomach upset or abdominal pain Call your doctor or get medical help right away if you notice any of these more serious side effects: loss of balance bleeding or bruising chest pain coughing up blood or vomit that looks like coffee grounds dizziness fainting severe or persistent headache sudden leg pain, swelling, warmth or redness signs of liver damage (such as yellowing of eye or skin, dark urine, or unusual tiredness) pale or blue skin, lips or fingernails bloody or dark, tarry stools light colored stool symptoms of stroke (such as one-sided weakness, slurred speech, confusion) blood in urine A few people may have an allergic reaction to this medicine. Symptoms can include difficulty breathing, skin rash, itching, swelling, or severe dizziness. If you notice any of these symptoms, seek medical help quickly. Extra Please speak with your doctor, nurse, or pharmacist if you have any questions about this medicine. [email or web address] IMPORTANT NOTE: This document tells you briefly how to take your medicine, but it does not tell youall there is to know about it. Your doctor or pharmacist may give you other documents about your medicine. Please talk to them if you have any questions. Always follow their advice. There is a more complete description of this medicine available in Nauruan. Scan this code on your smartphone or tablet or use the web address below. You can also ask your pharmacist for a printout. If you have any questions, please ask your pharmacist. The display and use of this drug information is subject to Terms of Use. Copyright(c) 2023 [employer]. 6934-6752 [employer]. All rights reserved. This information is not intended as a substitute for professional medical care. Always follow your healthcare professional's instructions. * Ancillary Progress Note - Consuelo Dunne, Sole Conditioner - 02/16/2024 11:20 AM EDT CARE MANAGEMENT - ADULT INITIAL SCREENING [facility] [address] Name: Stephen Varela Location: [facility] 5A-5105/W Date: 02/16/2024 Time: 11:21 AM Discussed patient with the interdisciplinary care team. This Whipped Topping Finisher performed a chart review and met with patient at bedside to complete admission screen and assessed needs for transition planning. The pet care assistant role and services were explained and emotional support was provided. Chief Complaint: Neuro Deficit/Stroke/TIA Prior Living Arrangements What was your living situation prior to admission/observation?: Alone (02/16/24 1120) Living Quarters: Assisted Living (02/16/24 112) Number of steps to enter living quarters:: 0 (02/16/241119) History of falling: No (02/16/24 08) Prior Level of Functioning Describe the patient's ability prior to admission/observation to perform ADLs: Performs independently (02/16/24 112) Requires assistance with: Dressing;Toileting (02/15/24 1404) Describe the patient's mobility status prior to admission: Patient ambulates independently (02/16/24 112) Patient uses assistive device: Yes (02/16/241119) If yes, choose:: Walker (02/16/241119) Caregiver Information Patient Contacts Name Relation Home Work Mobile Brody Varela Adult Child [phone] Dorothy Varela (DIL) Other - (no specific identity) [phone] Brody Varela is the patient's surrogate decision maker Risk Stratification/Psychosocial/Care Gaps Risk Stratification Psycho Social / Medical Concerns Identified: None Identified (02/16/241119) Accessed ImpactRx to connect patients to social care resources: No (02/16/241119) Readmission Risk Score: 31.3 (02/16/24 08) AM-PAC Score With Stairs : 12 (02/16/24 08) Prior to Admission Services Services Prior to Admission OPER[employer] S[employer] MANAGER Services (Services received within the last 30 days with exception, Psych within last two years): N/A (02/16/241119) [place] Dept. of Aging (PDA) Waiver Program: N/A (02/16/241119) [employer]GER Transportation (Services received within the last 30 days): Facility Transportation (02/16/241119) Outpatient Whipped Topping Finisher: Patient Care Team: Gilma Overton RN as Coal Wheeler (Registered Nurse) Patient/Family Expectations: to get well and return to [place] Pt states that [facility] but has been [facility] the rehab part. He is a bedhold per [facility] and plans to return their. O[employer] MANAGER pt completes ADL's independently and uses a walker to assist with ambulation. Pt is not on any oxygen. Pt states that he had HH before but is unsure if he still does. He could not remember agency. Pt plan [facility]. Pt states [facility] staff walk him to his appointments and he will need transport set up at discharge. For further screening information, please refer to the Care Management flow document. * Ancillary Progress Note - Lynn Bass, MARIBELN - 02/16/2024 10:48 AM EDT CLINICAL NUTRITION ADULT RISK ASSESSMENT [address] [address] Name: Stephen Varela Location: [facility] 5A-5105/W Date: 02/16/2024 Time: 10:48 AM How patient was identified (select 2): Wristband and Name Stephen Varela is a 78 year old male being assessed for clinical nutrition risk related to significant unintentional weight loss Primary diagnosis: CLAUDY Other pertinent information: Met with patient at bedside to assess nutritional status. Patient reported that his appetite was good. He stated that he thinks he is losing weight but was unsure how much. Patient has CHF and is on lasix. Patient has had non-significant weight loss x 3 months. Suspect weight loss is due to fluid shifts. Admission weight appears stated. No documented meal intakes to assess. Denied any issues chewing/swallowing. Called [facility] and spoke with Azalea who reported that patient is on a regular diet. Per nursing, he has a good appetite and is a good eater, however occasionally would c/o jaw pain due to recent ear surgery and skip a meal or eat a softer meal. Patient reported that his last weight on 02/14 was 235.4 lbs but that previously on the 03 of February he weighed 244 lbs. Will continue to monitor intakes and for the potential need for oral nutrition supplements. Anthropometrics Measurements Admission weight (for dietitians): 113.4 kg (admission weight appears stated) Height: 180.3 cm (5' 11") (02/15/24 09) Weight: 108.3 kg (238 lb 12.8 oz) (02/16/24 0600) BMI: 34.88 (02/15/24923) Usual Body Weight or EDW for Dialysis Patients: 101-110 kg per EHR Diet: Regular Previously followed diet: Regular Food Allergies/Intolerances: NKFA Oral Nutrition Supplement (ONS): None Pertinent medications/vitamins/minerals/supplements: NSS infusion, multivitamin, omeprazole RISK FACTORS: Adult Energy Intake: No significant decrease Interpretation of Weight Change: No recent/significant weight change weight down 5% in 3 months--non signficant Skin: Compromise without nutrition-related implications NUTRITION RISK CATEGORY: Nutrition Risk Category: Low/Moderate (0-1 factors) Clinical Nutrition Recommendations: Diet: Continue current nutrition plan NUTRITION INTERVENTION/PLAN: Orders: Change diet to Easy to chew Continue current care plan Will follow and adjust nutritional plan as medical condition requires. Please contact for change(s)in patient condition requiring earlier intervention. Lynn Bass MS, RDN Clinical Nutrition [facility] Available via Hawthorne Text [phone] * Care Plan - Halley Espinosa RN - 02/15/2024 5:42 PM EDT Clinical Goal(s): Pt will remain free of falls and/or injuries this shift (02/15/24 1500) Possible barriers to meeting goal(s)/advancing plan of care: hospital environment Stability of the patient: Moderately stable - low risk of patient condition declining or worsening Summary regarding today's goal(s): Met: pt free of falls and/or injuries this shift Recommendations: continue to implement fall precautions * Medical Necessity - Iza Denis RN - 02/15/2024 2:01 PM EDT AdmissionCare Guideline: Renal Failure (Acute) - INPT, Inpatient Based on the indications selected for the patient, the bed status of Inpatient was determined to beMET The following indications were selected as present at the time of evaluation of the patient: - Clinical Indications for Admission to Inpatient Care - Admission is indicated for 1 or more of the following: - Within past 7 days, rise in serum creatinine to 3 times its baseline value or higher Additional Information: From NH Confusion, and expressive aphasia/using inappropriate words since [place] Creatinine 2.3 EGF 28 AdmissionCare documentation entered by: Iza Denis [facility], 28th edition, Copyright 2023 [facility], [facility] All Rights Reserved. [id number]:01:15-04:00 Solely for purpose of utilization review and payment; not a diagnostic tool * ED Forensic Accountant Note - Crys Servin RN - 02/15/2024 1:42 PM EDT Report called to 5A * ED Forensic Accountant Note - Crys Srevin RN - 02/15/2024 10:34 AM EDT 1034: pt arrives to ED via EMS from [place] for confusion and expressive aphasia that started on Monday. Pt is in [facility] after having a recent surgery on his L ear. Pt alert to person, but pt havingtrouble verbalizing the time and place. Pt aware that he is having trouble speaking and get frustrated when he is unable to find and express his words. States "I am stupid." Pt denies any weakness orpain. Does report he takes a blood thinner. Pupils 3 PERRLA round and reactive. Pt following commands well. Heart sounds irregular, bradycardic on monitor. Respirations equal and unlabored. Abd soft,non-distended, non-tender. BLE dry and flakey with some clear/yellow discharge noted. +movement and sensation in all extremities. NIHHS 4. Pt unable to follow ataxia command, so scored a 1. Pt also having aphasia and dysarthria. NSS infusing per eMAR. Pt ready for imaging. Pt resting in stretcher with call aguirre in reach, denies any needs at this time. documented in this encounter Plan of Treatment Upcoming Encounters Date Type Department Care Team (Late st Contact Info) Description 02/23/2024 6:45 AM EDT Anticoagulation Centralized Clinical Pharmacy Services, Sandra Gómez [address] [place] [address] [place] [address] [facility], [address] [place] [address] 03/18/2024 9:40 AM EDT Office Visit Wound Care, [address] [address] Hermes Noble MD [address] [place] [address] 04/02/2024 9:40 AM EDT Office Visit Infectious Disease, [address] [id number] Rio Chun, DO [address] [place] [address] 06/06/2024 9:30 AM EDT Office Visit Cardiology, [address] [address] Yas Mckinnon CRNP [address] [place] [address] [phone] 07/23/2024 9:30 AM EST Office Visit Radiation Oncology, [facility] [address] [place] [address] Eros Faust MD [address] [place] [phone] Health Maintenance Due Date Last Done Comments Albumin/Creatinine Ratio 1963 Hepatitis C Screening 1963 Zoster Vaccines (2 of 3) 06/26/2014 05/01/2014 *SPIROMETRY ONCE FOR ASTHMA-ADULT 07/14/2022 *NEPHROLOGY REFERRAL DUE TO RESISTANT HTN 09/25/2023 COVID-19 Vaccine (2022- season) 2023 06/01/2023, 06/01/2023, [...] this encounter Medical Devices Implanted Type Area Broker Device Identifier Shelf Expiration Date Model / Serial / Lot Connector Nerve 2mm 15mm - [id number] Implanted:Qty : 1 on 04/27/2023 by Dudley Hinojosa MD at OR [facility] Left: Face [employer] [id number] 12/24/2024 [id number] / / [id number] Alloderm 4x7 Thin 0.8-1.2 (28 Units) - [id number] - [id number] Implanted:Qty : 28 on 04/27/2023 by Dudley Hinojosa MD at OR [facility] Left: Face ABBVIE 12/18/2024 [id number] / [id number] / [id number] Sheeting Monisha 2x3in X.020in - [id number] Implanted:Qty : 1 on 04/27/2023 by Dudley Hinojosa MD at OR [facility] Left: Ear ALLIED BIOM[employer] 09/25/2024 23-700-20 / / [id number] Sheeting Monisha 2x3 In X.005in - [id number] Implanted:Qty : 1 on 12/12/2023 by Gurvinder Garcia MD at [facility] Left: Ear ALLIED BIOMEDICAL 04/05/2026 23-700-05 / / [id number] Cath Pwr Picc Solo Inj 4f - [id number] Implanted:Qty : 1 on 01/26/2024 at [facility] CR BARD : ACCESS SYSTEMS [id number] 06/20/2025 [id number] / / [id number] documented as of this encounter Procedures Procedure Name Priority Date/Time Associated Diagnosis Comments BASIC METABOLIC PANEL Routine 02/21/2024 4:40 AM EDT PT INR Routine 02/21/2024 4:40 AM EDT CBC Routine 02/21/2024 4:40 AM EDT BASIC METABOLIC PANEL Routine 02/20/2024 4:15 AM EDT PT INR Routine 02/20/2024 4:15 AM EDT CBC Routine 02/20/2024 4:15 AM EDT BASIC METABOLIC PANEL Routine 02/19/2024 8:23 AM EDT DIFFERENTIAL, AUTOMATED STAT 02/19/2024 8:22 AM EDT CBC STAT 02/19/2024 8:22 AM EDT CBC STAT 02/19/2024 8:22 AM EDT EXTRA LAVENDER TOP Routine 02/19/2024 4: 35 AM EDT EXTRA TUBES Routine 02/19/2024 4:35 AM EDT CK Routine 02/19/2024 4:15 AM EDT PT INR Routine 02/19/2024 4:15 AM EDT VANCOMYCIN RANDOM Timed 02/18/2024 4:5 1 AM EDT BASIC METABOLIC PANEL Routine 02/18/2024 4:51 AM EDT PT INR Routine 02/18/2024 4:51 AM EDT CBC Routine 02/18/2024 4:51 AM EDT VANCOMYCIN RANDOM Routine 02/17/2024 6:3 1 AM EDT BASIC METABOLIC PANEL Routine 02/17/2024 6:31 AM EDT PT INR Routine 02/17/2024 6:31 AM EDT CBC Routine 02/17/2024 6:31 AM EDT LIPID PANEL WITH DIRECT LDL IF TG IS HIGH Routine 02/16/2024 5:26 AM EDT HEMOGLOBIN A1C Routine 02/16/2024 5:26 AM EDT VANCOMYCIN RANDOM Routine 02/16/2024 5:2 6 AM EDT COMPREHENSIVE METABOLIC PANEL Routine 02/16/2024 5:26 AM EDT PT INR Routine 02/16/2024 5:26 AM EDT PHOSPHORUS Routine 02/16/2024 5:26 AM EDT CBC Routine 02/16/2024 5:26 AM EDT MAGNESIUM Routine 02/16/2024 5:26 AM EDT MRSA SCREEN, PCR Routine 02/15/2024 3:1 4 PM EDT PT INR Routine 02/15/2024 2:40 PM EDT XR CHEST 1 VIEW Routine 02/15/2024 2:38 PM EDT Atelectasis Pleural effusion, not elsewhere classified Other specified symptoms and signs involving the circulatory and respiratory systems Other nonspecific abnormal finding of lung field URINALYSIS WITH MICROSCOPIC EXAM STAT 02/15/2024 12:[address] HEAD/BRAIN WO CONTRAST STAT 02/15/2024 12:16 PM EDT Altered mental status, unspecified BLOOD GAS, VENOUS STAT 02/15/2024 11: 03 AM EDT CRP (INFLAMMATORY MARKER) Add-on 02/15/2024 11:03 AM EDT COMPREHENSIVE METABOLIC PANEL STAT 02/15/2024 11:03 AM EDT LACTATE STAT 02/15/2024 11:03 AM EDT MAGNESIUM STAT 02/15/2024 11:03 AM EDT HC ECG TRACING ONLY STAT 02/15/2024 1 0:48 AM EDT Electrolyte abnormality documented in this encounter Results * (ABNORMAL) PT INR (02/21/2024 4:40 AM EDT) [facility] Prothrombin Time 29.2(H) 11.6 - 15.2 seconds 02/21/2024 5:10 AM EDT LABORATORY [facility] INR 2.7(H) 0.8 - 1.2 02/21/2024 5:10 AM EDT LABORATORY [facility] Blood Venous blood specimen / Unknown Venipuncture / Unknown 02/21/2024 4:40 AM EDT 02/21/2024 4:45 AM EDT Narrative LABORATORY GL - 02/21/2024 5:10 AM EDT Warfarin Therapy INR: 2.0-3.0 conventional anticoagulation INR: 2.5-3.5 high intensity anticoagulation Darian Haq DO LAB BLOOD ORDERAB LES LABORATORY [address] [address] * (ABNORMAL) BASIC METABOLIC PANEL (02/21/2024 4:40 AM EDT) BUN 46(H) 6 - 20 mg/dL 02/21/2024 5:08 AM EDT LABORATORY [facility] Creatinine 2.7(H) 0.6 - 1.2 mg/dL 02/21/2024 5:08 AM EDT LABORATORY [facility] Estimated Glomerular Filtration Rate 23(L) >=60 mL/min 02/21/2024 5:08 AM EDT LABORATORY [facility] Comment:eGFR is calculated b ased on the CKD-EPI 2020 equation Sodium 140 135 - 146 mmol/L 02/21/2024 5:08 AM EDT LABORATORY [facility] Potassium 4.0 3.5 - 5.1 mmol/L 02/21/2024 5:08 AM EDT LABORATORY [facility] Chloride 106 98 - 107 mmol/L 02/21/2024 5:08 AM EDT LABORATORY [facility] CO2 24 22 - 32 mmol/L 02/21/2024 5:08 AM EDT LABORATORY [facility] Anion Gap 10 7 - 15 mmol/L 02/21/2024 5:08 AM EDT LABORATORY [facility] Glucose 90 70 - 120 mg/dL 02/21/2024 5:08 AM EDT LABORATORY [facility] Calcium 9.1 8.4 - 10.2 mg/dL 02/21/2024 5:08 AM EDT LABORATORY [facility] Blood Venous blood specimen / Unknown Venipuncture / Unknown 02/21/2024 4:40 AM EDT 02/21/2024 4:45 AM EDT Henry Vanegas MD LAB BLOOD ORDERABLES LABORATORY [facility] [address] [place] [address] * (ABNORMAL) CBC (02/21/2024 4:40 AM EDT) WBC 7.39 4.00 - 10.80 K/uL 02/21/2024 4:49 AM EDT LABORATORY [facility] RBC 3.63 4.50 - 5.25 M/uL 02/21/2024 4:49 AM EDT LABORATORY [facility] HGB 9.8(L) 14.0 - 16.8 g/dL 02/21/2024 4:49 AM EDT LABORATORY [facility] HCT 31.3(L) 40.0 - 48.4 % 02/21/2024 4:49 AM EDT LABORATORY [facility] MCV 86.2 82.0 - 99.5 fL 02/21/2024 4:49 AM EDT LABORATORY [facility] MCH 27.0 27.0 - 34.0 pg 02/21/2024 4:49 AM EDT LABORATORY [facility] MCHC 31.3 32.0 - 36.0 g/dL 02/21/2024 4:49 AM EDT LABORATORY [facility] RDW 17.2 11.5 - 15.5 % 02/21/2024 4:49 AM EDT LABORATORY [facility] PLT 104(L) 140 - 400 K/uL 02/21/2024 4:49 AM EDT LABORATORY [facility] MPV 9.9 6.6 - 11.1 fL 02/21/2024 4:49 AM EDT LABORATORY [facility] nRBCs 0 <=0 /100 WBCs 02/21/2024 4:49 AM EDT LABORATORY [facility] Blood Venous blood specimen / Unknown Venipuncture / Unknown 02/21/2024 4:40 AM EDT 02/21/2024 4:45 AM EDT Henry Vanegas MD LAB BLOOD ORDERABLES Performing Organization Address City/State/[facility] Co de Phone Number LABORATORY [address] [address] * (ABNORMAL) PT INR (02/20/2024 4:15 AM EDT) [facility] Prothrombin Time 27.2(H) 11.6 - 15.2 seconds 02/20/2024 5:43 AM EDT LABORATORY [facility] INR 2.5(H) 0.8 - 1.2 02/20/2024 5:43 AM EDT LABORATORY [facility] Blood Venous blood specimen / Unknown Venipuncture / Unknown 02/20/2024 4:15 AM EDT 02/20/2024 4:48 AM EDT Narrative LABORATORY [facility] - 02/20/2024 5:43 AM EDT Warfarin Therapy INR: 2.0-3.0 conventional anticoagulation INR: 2.5-3.5 high intensity anticoagulation Darian Hqa DO LAB BLOOD ORDERAB LES LABORATORY [facility] [address] [place] [address] * (ABNORMAL) BASIC METABOLIC PANEL (02/20/2024 4:15 AM EDT) BUN 47(H) 6 - 20 mg/dL 02/20/2024 5:11 AM EDT LABORATORY [facility] Creatinine 2.7(H) 0.6 - 1.2 mg/dL 02/20/2024 5:11 AM EDT LABORATORY [facility] Estimated Glomerular Filtration Rate 24(L) >=60 mL/min 02/20/2024 5:11 AM EDT LABORATORY [facility] Comment:eGFR is calculated b ased on the CKD-EPI 2020 equation Sodium 142 135 - 146 mmol/L 02/20/2024 5:11 AM EDT LABORATORY [facility] Potassium 4.0 3.5 - 5.1 mmol/L 02/20/2024 5:11 AM EDT LABORATORY [facility] Chloride 108(H) 98 - 107 mmol/L 02/20/2024 5:11 AM EDT LABORATORY [facility] CO2 23 22 - 32 mmol/L 02/20/2024 5:11 AM EDT LABORATORY [facility] Anion Gap 11 7 - 15 mmol/L 02/20/2024 5:11 AM EDT LABORATORY [facility] Glucose 89 70 - 120 mg/dL 02/20/2024 5:11 AM EDT LABORATORY [facility] Calcium 9.3 8.4 - 10.2 mg/dL 02/20/2024 5:11 AM EDT LABORATORY [facility] Blood Venous blood specimen / Unknown Venipuncture / Unknown 02/20/2024 4:15 AM EDT 02/20/2024 4:48 AM EDT Henry Vanegas MD LAB BLOOD ORDERABLES LABORATORY [address] [address] * (ABNORMAL) CBC (02/20/2024 4:15 AM EDT) WBC 7.25 4.00 - 10.80 K/uL 02/20/2024 4:51 AM EDT LABORATORY [facility] RBC 3.60 4.50 - 5.25 M/uL 02/20/2024 4:51 AM EDT LABORATORY [facility] HGB 9.8(L) 14.0 - 16.8 g/dL 02/20/2024 4:51 AM EDT LABORATORY [facility] HCT 31.1(L) 40.0 - 48.4 % 02/20/2024 4:51 AM EDT LABORATORY [facility] MCV 86.4 82.0 - 99.5 fL 02/20/2024 4:51 AM EDT LABORATORY [facility] MCH 27.2 27.0 - 34.0 pg 02/20/2024 4:51 AM EDT LABORATORY [facility] MCHC 31.5 32.0 - 36.0 g/dL 02/20/2024 4:51 AM EDT LABORATORY [facility] RDW 17.3 11.5 - 15.5 % 02/20/2024 4:51 AM EDT LABORATORY [facility] PLT 105(L) 140 - 400 K/uL 02/20/2024 4:51 AM EDT LABORATORY [facility] MPV 10.3 6.6 - 11.1 fL 02/20/2024 4:51 AM EDT LABORATORY [facility] nRBCs 0 <=0 /100 WBCs 02/20/2024 4:51 AM EDT LABORATORY [facility] Blood Venous blood specimen / Unknown Venipuncture / Unknown 02/20/2024 4:15 AM EDT 02/20/2024 4:48 AM EDT Henry Vanegas MD LAB BLOOD ORDERABLES LABORATORY [address] [place] [address] * (ABNORMAL) BASIC METABOLIC PANEL (02/19/2024 8:23 AM EDT) BUN 47(H) 6 - 20 mg/dL 02/19/2024 8:50 AM EDT LAB[facility]ATORY [facility] Creatinine 2.6(H) 0.6 - 1.2 mg/dL 02/19/2024 8:50 AM EDT [facility] Estimated Glomerular Filtration Rate 25(L) >=60 mL/min 02/19/2024 8:50 AM EDT [facility] Comment:eGFR is calculated b ased on the CKD-EPI 2020 equation Sodium 142 135 - 146 mmol/L 02/19/2024 8:50 AM EDT [facility] Potassium 4.1 3.5 - 5.1 mmol/L 02/19/2024 8:50 AM EDT [facility] Chloride 107 98 - 107 mmol/L 02/19/2024 8:50 AM EDT [facility] CO2 22 22 - 32 mmol/L 02/19/2024 8:50 AM EDT [facility] Anion Gap 13 7 - 15 mmol/L 02/19/2024 8:50 AM EDT LAB[facility] Glucose 96 70 - 120 mg/dL 02/19/2024 8:50 AM EDT LAB[facility] Calcium 9.5 8.4 - 10.2 mg/dL 02/19/2024 8:50 AM EDT LABORATORY GL Blood Venous blood specimen / Unknown Venipuncture / Unknown 02/19/2024 8:23 AM EDT 02/19/2024 8:27 AM EDT Henry Vanegas MD LAB BLOOD ORDERABLES LABORATORY [address] [address] * (ABNORMAL) DIFFERENTIAL, AUTOMATED (02/19/2024 8:22 AM EDT) WBC 8.24 4.00 - 10.80 K/uL 02/19/2024 8:30 AM EDT LABORATORY GL Neutrophils % 75.0 40.0 - 75.0 % 02/19/2024 8:30 AM EDT LABORATORY GL Lymphocytes % 9.2(L) 18.0 - 42.0 % 02/19/2024 8:30 AM EDT LABORATORY GL Monocytes % 8.6 1.0 - 11.0 % 02/19/2024 8:30 AM EDT LABORATORY [facility] Eosinophils % 6.2(H) 0.0 - 6.0 % 02/19/2024 8:30 AM EDT LABORATORY GL Basophils % 0.8 0.0 - 2.0 % 02/19/2024 8:30 AM EDT LABORATORY [facility] Immature Granulocytes % 0.2 0.0 - 2.0 % 02/19/2024 8:30 AM EDT LABORATORY [facility] Absolute Neutrophils 6.17 1.80 - 7.70 K/uL 02/19/2024 8:30 AM EDT LABORATORY [facility] Absolute Lymphocytes 0.76(L) 1.00 - 4.80 K/ul 02/19/2024 8:30 AM EDT LABORATORY [facility] Absolute Monocytes 0.71 0.00 - 1.10 K/uL 02/19/2024 8:30 AM EDT LABORATORY [facility] Absolute Eosinophils 0.51 0.00 - 0.70 K/uL 02/19/2024 8:30 AM EDT LABORATORY [facility] Absolute Basophils 0.07 0.00 - 0.20 K/uL 02/19/2024 8:30 AM EDT LABORATORY [facility] Absolute Immature Granulocytes 0.02 0.00 - 0.20 K/uL 02/19/2024 8:30 AM EDT LABORATORY [facility] Blood Venous blood specimen / Unknown Venipuncture / Unknown 02/19/2024 8:22 AM EDT 02/19/2024 8:27 AM EDT Henry Vanegas MD LAB BLOOD ORDERABLES Performing Organization Address City/State/[facility] Co de Phone Number LABORATORY [address] [address] * (ABNORMAL) CBC (02/19/2024 8:22 AM EDT) [facility] WBC 8.24 4.00 - 10.80 K/uL 02/19/2024 8:30 AM EDT LABORATORY [facility] RBC 3.71 4.50 - 5.25 M/uL 02/19/2024 8:30 AM EDT LABORATORY [facility] HGB 10.4(L) 14.0 - 16.8 g/dL 02/19/2024 8:30 AM EDT LAB[facility]ATORY [facility] HCT 32.0(L) 40.0 - 48.4 % 02/19/2024 8:30 AM EDT LABORATORY [facility] MCV 86.3 82.0 - 99.5 fL 02/19/2024 8:30 AM EDT LABORATORY [facility] MCH 28.0 27.0 - 34.0 pg 02/19/2024 8:30 AM EDT LABORATORY [facility] MCHC 32.5 32.0 - 36.0 g/dL 02/19/2024 8:30 AM EDT LABORATORY [facility] RDW 17.2 11.5 - 15.5 % 02/19/2024 8:30 AM EDT LABORATORY [facility] PLT 108(L) 140 - 400 K/uL 02/19/2024 8:30 AM EDT LABORATORY [facility] MPV 10.0 6.6 - 11.1 fL 02/19/2024 8:30 AM EDT LABORATORY [facility] nRBCs 0 <=0 /100 WBCs 02/19/2024 8:30 AM EDT LABORATORY [facility] Blood Venous blood specimen / Unknown Venipuncture / Unknown 02/19/2024 8:22 AM EDT 02/19/2024 8:27 AM EDT Henry Vanegas MD LAB BLOOD ORDERABLES Performing Organization Address City/[facility] Co de Phone Number LABORATORY [address] [address] * EXTRA LAVENDER TOP (02/19/2024 4:35 AM EDT) Blood Venous blood specimen / Unknown 02/19/2024 4:35 AM EDT 02/19/2024 4:40 AM EDT Henry Vanegas MD LAB BLOOD ORDERABLES LABORATORY [address] [id number] * (ABNORMAL) PT INR (02/19/2024 4:15 AM EDT) Prothrombin Time 26.8(H) 11.6 - 15.2 seconds 02/19/2024 5:59 AM EDT LABORATORY [facility] INR 2.4(H) 0.8 - 1.2 02/19/2024 5:59 AM EDT LABORATORY [facility] Blood Venous blood specimen / Unknown Venipuncture / Unknown 02/19/2024 4:15 AM EDT 02/19/2024 4:40 AM EDT Narrative LABORATORY [facility] - 02/19/2024 5:59 AM EDT Warfarin Therapy INR: 2.0-3.0 conventional anticoagulation INR: 2.5-3.5 high intensity anticoagulation Darian Haq DO LAB BLOOD ORDERAB LES LABORATORY [address] [address] * (ABNORMAL) CK (02/19/2024 4:15 AM EDT) CK 28(L) 39 - 308 U/L 02/19/2024 5:17 AM EDT LABORATORY [facility] Blood Venous blood specimen / Unknown Venipuncture / Unknown 02/19/2024 4:15 AM EDT 02/19/2024 4:40 AM EDT Doug John MD LAB BLOOD ORDERABLES Performing Organization Address City/[facility]/ZIP Co de Phone Number LABORATORY [address] [address] * (ABNORMAL) PT INR (02/18/2024 4:51 AM EDT) Prothrombin Time 25.3(H) 11.6 - 15.2 seconds 02/18/2024 5:40 AM EDT LABORATORY [facility] INR 2.3(H) 0.8 - 1.2 02/18/2024 5:40 AM EDT LABORATORY [facility] Blood Venous blood specimen / Unknown Venipuncture / Unknown 02/18/2024 4:51 AM EDT 02/18/2024 5:22 AM EDT Narrative LABORATORY [facility] - 02/18/2024 5:40 AM EDT Warfarin Therapy INR: 2.0-3.0 conventional anticoagulation INR: 2.5-3.5 high intensity anticoagulation Darian Haq DO LAB BLOOD ORDERAB LES LABORATORY [address] [address] * (ABNORMAL) BASIC METABOLIC PANEL (02/18/2024 4:51 AM EDT) BUN 48(H) 6 - 20 mg/dL 02/18/2024 5:44 AM EDT LAB[facility]ATORY [facility] Creatinine 2.5(H) 0.6 - 1.2 mg/dL 02/18/2024 5:44 AM EDT LAB[facility]ATORY [facility] Estimated Glomerular Filtration Rate 26(L) >=60 mL/min 02/18/2024 5:44 AM EDT LAB[facility]ORY [facility] Comment:eGFR is calculated b ased on the CKD-EPI 2020 equation Sodium 141 135 - 146 mmol/L 02/18/2024 5:44 AM EDT LAB[facility]ATORY [facility] Potassium 3.7 3.5 - 5.1 mmol/L 02/18/2024 5:44 AM EDT LAB[facility]ATORY [facility] Chloride 107 98 - 107 mmol/L 02/18/2024 5:44 AM EDT LAB[facility]ORY [facility] CO2 23 22 - 32 mmol/L 02/18/2024 5:44 AM EDT LAB[facility]ATORY [facility] Anion Gap 11 7 - 15 mmol/L 02/18/2024 5:44 AM EDT LAB[facility]ORY [facility] Glucose 91 70 - 120 mg/dL 02/18/2024 5:44 AM EDT LAB[facility]ORY [facility] Calcium 9.3 8.4 - 10.2 mg/dL 02/18/2024 5:44 AM EDT LAB[facility] Blood Venous blood specimen / Unknown Venipuncture / Unknown 02/18/2024 4:51 AM EDT 02/18/2024 5:22 AM EDT Henry Vanegas MD LAB BLOOD ORDERABLES Performing Organization Address City/[facility]/ZIP Co de Phone Number LABORATORY [address] [address] * (ABNORMAL) CBC (02/18/2024 4:51 AM EDT) WBC 7.37 4.00 - 10.80 K/uL 02/18/2024 5:46 AM EDT LABORATORY [facility] RBC 3.59 4.50 - 5.25 M/uL 02/18/2024 5:46 AM EDT LABORATORY [facility] HGB 9.7(L) 14.0 - 16.8 g/dL 02/18/2024 5:46 AM EDT LABORATORY [facility] HCT 31.1(L) 40.0 - 48.4 % 02/18/2024 5:46 AM EDT LABORATORY [facility] MCV 86.6 82.0 - 99.5 fL 02/18/2024 5:46 AM EDT LABORATORY [facility] MCH 27.0 27.0 - 34.0 pg 02/18/2024 5:46 AM EDT LABORATORY [facility] MCHC 31.2 32.0 - 36.0 g/dL 02/18/2024 5:46 AM EDT LABORATORY [facility] RDW 17.2 11.5 - 15.5 % 02/18/2024 5:46 AM EDT LABORATORY [facility] PLT 93(L) 140 - 400 K/uL 02/18/2024 5:46 AM EDT LABORATORY [facility] MPV 10.4 6.6 - 11.1 fL 02/18/2024 5:46 AM EDT LABORATORY [facility] nRBCs 0 <=0 /100 WBCs 02/18/2024 5:46 AM EDT LABORATORY [facility] Blood Venous blood specimen / Unknown Venipuncture / Unknown 02/18/2024 4:51 AM EDT 02/18/2024 5:22 AM EDT Henry Vanegas MD LAB BLOOD ORDERABLES LABORATORY [address] [address] * VANCOMYCIN RANDOM (02/18/2024 4:51 AM EDT) Vancomycin Random 28.4 10.0 - 40.0 ug/mL 02/18/2024 5:44 AM EDT LABORATORY [facility] Blood Venous blood specimen / Unknown Venipuncture / Unknown 02/18/2024 4:51 AM EDT 02/18/2024 5:22 AM EDT Kathrine Che [facility] LAB BLOOD ORDERABLES Performing Organization Address [facility] [place]/[facility] de Phone Number LABORATORY [address] [phone] * (ABNORMAL) PT INR (02/17/2024 6:31 AM EDT) Prothrombin Time 25.0(H) 11.6 - 15.2 seconds 02/17/2024 6:56 AM EDT LABORATORY [facility] INR 2.2(H) 0.8 - 1.2 02/17/2024 6:56 AM EDT LABORATORY [facility] Blood Venous blood specimen / Unknown Venipuncture / Unknown 02/17/2024 6:31 AM EDT 02/17/2024 6:36 AM EDT Narrative LABORATORY [facility] - 02/17/2024 6:56 AM EDT Warfarin Therapy INR: 2.0-3.0 conventional anticoagulation INR: 2.5-3.5 high intensity anticoagulation Darian Osvaldo Haq DO LAB BLOOD ORDERAB LES Performing Organization Address [facility] [place] Co de Phone Number LABORATORY [address] [address] * (ABNORMAL) CBC (02/17/2024 6:31 AM EDT) WBC 8.95 4.00 - 10.80 K/uL 02/17/2024 6:41 AM EDT LABORATORY [facility] RBC 3.69 4.50 - 5.25 M/uL 02/17/2024 6:41 AM EDT LABORATORY [facility] HGB 10.1(L) 14.0 - 16.8 g/dL 02/17/2024 6:41 AM EDT LABORATORY [facility] HCT 32.4(L) 40.0 - 48.4 % 02/17/2024 6:41 AM EDT LABORATORY GL MCV 87.8 82.0 - 99.5 fL 02/17/2024 6:41 AM EDT LABORATORY GL MCH 27.4 27.0 - 34.0 pg 02/17/2024 6:41 AM EDT LABORATORY GL MCHC 31.2 32.0 - 36.0 g/dL 02/17/2024 6:41 AM EDT LABORATORY GL RDW 17.0 11.5 - 15.5 % 02/17/2024 6:41 AM EDT LABORATORY GL PLT 100(L) 140 - 400 K/uL 02/17/2024 6:41 AM EDT LABORATORY GL MPV 10.0 6.6 - 11.1 fL 02/17/2024 6:41 AM EDT LABORATORY GL nRBCs 0 <=0 /100 WBCs 02/17/2024 6:41 AM EDT LABORATORY GL Blood Venous blood specimen / Unknown Venipuncture / Unknown 02/17/2024 6:31 AM EDT 02/17/2024 6:36 AM EDT Parish Raymond DO LAB BLOOD ORDERABLES LABORATORY [address] [place] [address] * (ABNORMAL) BASIC METABOLIC PANEL (02/17/2024 6:31 AM EDT) BUN 49(H) 6 - 20 mg/dL 02/17/2024 7:07 AM EDT LABORATORY [facility] Creatinine 2.4(H) 0.6 - 1.2 mg/dL 02/17/2024 7:07 AM EDT LAB[facility]ATORY [facility] Estimated Glomerular Filtration Rate 27(L) >=60 mL/min 02/17/2024 7:07 AM EDT LAB[facility]ATORY [facility] Comment:eGFR is calculated b ased on the CKD-EPI 2020 equation Sodium 144 135 - 146 mmol/L 02/17/2024 7:07 AM EDT LAB[facility]ATORY [facility] Potassium 3.7 3.5 - 5.1 mmol/L 02/17/2024 7:07 AM EDT LAB[facility]ATORY [facility] Chloride 108(H) 98 - 107 mmol/L 02/17/2024 7:07 AM EDT LAB[facility]ATORY [facility] CO2 21(L) 22 - 32 mmol/L 02/17/2024 7:07 AM EDT LABORATORY GL Anion Gap 15 7 - 15 mmol/L 02/17/2024 7:07 AM EDT LABORATORY GL Glucose 92 70 - 120 mg/dL 02/17/2024 7:07 AM EDT LABORATORY GL Calcium 9.7 8.4 - 10.2 mg/dL 02/17/2024 7:07 AM EDT LABORATORY [facility] Blood Venous blood specimen / Unknown Venipuncture / Unknown 02/17/2024 6:31 AM EDT 02/17/2024 6:36 AM EDT [facility] LAB[facility] [address] [id number] * VANCOMYCIN RANDOM (02/17/2024 6:31 AM EDT) Vancomycin Random 31.9 10.0 - 40.0 ug/mL 02/17/2024 7:31 AM EDT LABORATORY [facility] Blood Venous blood specimen / Unknown Venipuncture / Unknown 02/17/2024 6:31 AM EDT 02/17/2024 6:36 AM EDT [facility] Performing Organization Address City/[facility]/ZIP Co de Phone Number LABORATORY [address] [phone] * (ABNORMAL) PT INR (02/16/2024 5:26 AM EDT) Prothrombin Time 26.5(H) 11.6 - 15.2 seconds 02/16/2024 6:32 AM EDT LABORATORY [facility] INR 2.4(H) 0.8 - 1.2 02/16/2024 6:32 AM EDT LABORATORY [facility] Blood Venous blood specimen / Unknown Venipuncture / Unknown 02/16/2024 5:26 AM EDT 02/16/2024 5:31 AM EDT Narrative LABORATORY [facility] - 02/16/2024 6:32 AM EDT Warfarin Therapy INR: 2.0-3.0 conventional anticoagulation INR: 2.5-3.5 high intensity anticoagulation Darain Haq DO LAB BLOOD ORDERAB LES LABORATORY [facility] [address] [place] [address] * (ABNORMAL) HEMOGLOBIN A1C (02/16/2024 5:26 AM EDT) Hemoglobin A1C 5.8(H) 4.0 - 5.6 % 02/16/2024 4:31 PM EDT LABORATORY [facility] Comment:The use of HbA1c to monitor glycemic status is based on normal hemoglobin and HbA composition. This test should not be used in patients with abnormal hemoglobin that affects the half life of the red blood cell or the in vivo glycation rates. Estimated Average Glucose 120 <126 mg/dL 02/16/2024 4:31 PM EDT LABORATORY [facility] Blood Venous blood specimen / Unknown Venipuncture / Unknown 02/16/2024 5:26 AM EDT 02/16/2024 5:31 AM EDT Azeb PICKENS LAB BLOOD ORDERABLES Performing Organization Address City/[facility]/ZIP Co de Phone Number LABORATORY [facility] [address] [place] [address] * (ABNORMAL) LIPID PANEL WITH DIRECT LDL IF TG IS HIGH (02/16/2024 5:26 AM EDT) Triglycerides 85 <=174 mg/dL 02/16/2024 2:23 PM EDT LABORATORY [facility] Comment: Triglyceride Reference Ranges (mg/dL): <150 Acceptable 150-174 Borderline high 175-499 High >=500 Very high Cholesterol 90 <200 mg/dL 02/16/2024 2:23 PM EDT LABORATORY [facility] Comment: Total Cholesterol Reference Ranges (mg/dL): <200 Desirable 200-239 Borderline high >=240 High HDL Cholesterol 27(L) >39 mg/dL 2:23 PM EDT LABORATORY [facility] Comment: HDL Cholesterol Reference Ranges (mg/dL): >=60 High (Desirable) <50 Low (Undesirable) For Females <40 Low (Undesirable) For Males Non-HDL Cholesterol 63 <=159 mg/dL 02/16/2024 2:23 PM EDT LABORATORY [facility] Comment: Non-HDL Cholesterol Reference Range (mg/dL): <100 Target level for high risk ASCVD patient <130 Optimal for general population 130-159 Near optimal for general population 160-189 Borderline High 190-219 High >=220 Very High LDL Cholesterol 46 <=129 mg/dL 02/16/2024 2:23 PM EDT LABORATORY [facility] Comment: LDL Cholesterol Reference Ranges (mg/dL): <70 Target level for high risk ASCVD patient <100 Optimal for general population 100-129 Near optimal for general population 130-159 Borderline high 160-189 High >=190 Very high Blood Venous blood specimen / Unknown Venipuncture / Unknown 02/16/2024 5:26 AM EDT 02/16/2024 5:31 AM EDT Azeb PICKENS LAB BLOOD ORDERABLES LABORATORY [facility] [address] [place] [address] * VANCOMYCIN RANDOM (02/16/2024 5:26 AM EDT) Vancomycin Random 38.2 10.0 - 40.0 ug/mL 02/16/2024 6:40 AM EDT LABORATORY [facility] Blood Venous blood specimen / Unknown Venipuncture / Unknown 02/16/2024 5:26 AM EDT 02/16/2024 5:31 AM EDT Thomas Bill [facility] LAB BLOOD ORDERABLE S LABORATORY [address] [address] * PHOSPHORUS (02/16/2024 5:26 AM EDT) Phosphorus 3.9 2.5 - 4.8 mg/dL 02/16/2024 6:11 AM EDT LABORATORY [facility] Blood Venous blood specimen / Unknown Venipuncture / Unknown 02/16/2024 5:26 AM EDT 02/16/2024 5:31 AM EDT Azeb Fitzgerald White [employer] LAB BLOOD ORDERABLES Performing Organization Address City/[facility]/ZIP Co de Phone Number LABORATORY [facility] [address] [place] [address] * MAGNESIUM (02/16/2024 5:26 AM EDT) Magnesium 2.1 1.5 - 2.6 mg/dL 02/16/2024 6:11 AM EDT LABORATORY [facility] Blood Venous blood specimen / Unknown Venipuncture / Unknown 02/16/2024 5:26 AM EDT 02/16/2024 5:31 AM EDT Azeb Fitzgerald White [employer] LAB BLOOD ORDERABLES Performing Organization Address [facility] [place] de Phone Number LABORATORY [address] [address] * (ABNORMAL) CBC (02/16/2024 5:26 AM EDT) WBC 8.59 4.00 - 10.80 K/uL 02/16/2024 5:39 AM EDT LABORATORY [facility] RBC 3.41 4.50 - 5.25 M/uL 02/16/2024 5:39 AM EDT LABORATORY [facility] HGB 9.2(L) 14.0 - 16.8 g/dL 02/16/2024 5:39 AM EDT LABORATORY [facility] HCT 29.6(L) 40.0 - 48.4 % 02/16/2024 5:39 AM EDT LABORATORY [facility] MCV 86.8 82.0 - 99.5 fL 02/16/2024 5:39 AM EDT LABORATORY [facility] MCH 27.0 27.0 - 34.0 pg 02/16/2024 5:39 AM EDT LABORATORY [facility] MCHC 31.1 32.0 - 36.0 g/dL 02/16/2024 5:39 AM EDT LABORATORY [facility] RDW 17.2 11.5 - 15.5 % 02/16/2024 5:39 AM EDT LABORATORY GL PLT 104(L) 140 - 400 K/uL 02/16/2024 5:39 AM EDT LABORATORY GL MPV 10.7 6.6 - 11.1 fL 02/16/2024 5:39 AM EDT LABORATORY GL nRBCs 0 <=0 /100 WBCs 02/16/2024 5:39 AM EDT LABORATORY GL Blood Venous blood specimen / Unknown Venipuncture / Unknown 02/16/2024 5:26 AM EDT 02/16/2024 5:31 AM EDT Azeb PICKENS LAB BLOOD ORDERABLES LABORATORY GL [address] [place] [address] * (ABNORMAL) COMPREHENSIVE METABOLIC PANEL (02/16/2024 5:26 AM EDT) BUN 48(H) 6 - 20 mg/dL 02/16/2024 6:11 AM EDT LABORATORY [facility] Creatinine 2.3(H) 0.6 - 1.2 mg/dL 02/16/2024 6:11 AM EDT LABORATORY [facility] Estimated Glomerular Filtration Rate 29(L) >=60 mL/min 02/16/2024 6:11 AM EDT LABORATORY [facility] Comment:eGFR is calculated b ased on the CKD-EPI 2020 equation Sodium 143 135 - 146 mmol/L 02/16/2024 6:11 AM EDT LABORATORY [facility] Potassium 3.8 3.5 - 5.1 mmol/L 02/16/2024 6:11 AM EDT LABORATORY [facility] Chloride 108(H) 98 - 107 mmol/L 02/16/2024 6:11 AM EDT LABORATORY [facility] CO2 20(L) 22 - 32 mmol/L 02/16/2024 6:11 AM EDT LABORATORY [facility] Anion Gap 15 7 - 15 mmol/L 02/16/2024 6:11 AM EDT LABORATORY [facility] Glucose 88 70 - 120 mg/dL 02/16/2024 6:11 AM EDT LABORATORY [facility] Albumin 3.6(L) 3.8 - 5.0 g/dL 02/16/2024 6:11 AM EDT LABORATORY GL AST 15 10 - 50 U/L 02/16/2024 6:11 AM EDT LABORATORY [facility] Alkaline Phosphatase 77 35 - 130 U/L 02/16/2024 6:11 AM EDT LABORATORY [facility] Bilirubin, Total 0.3 <=1.2 mg/dL 02/16/2024 6:11 AM EDT LABORATORY [facility] Calcium 9.6 8.4 - 10.2 mg/dL 02/16/2024 6:11 AM EDT LABORATORY [facility] Protein 6.7 6.0 - 8.3 g/dL 02/16/2024 6:11 AM EDT LABORATORY [facility] ALT 11 10 - 50 U/L 02/16/2024 6:11 AM EDT LAB[facility]ATORY [facility] Blood Venous blood specimen / Unknown Venipuncture / Unknown 02/16/2024 5:26 AM EDT 02/16/2024 5:31 AM EDT Azeb PICKENS LAB BLOOD ORDERABLES LABORATORY [address] [address] * MRSA SCREEN, PCR (02/15/2024 3:14 PM EDT) Pathologist [facility] MRSA PCR Result Negative Negative 8:29 PM EDT LABORATORY [facility] Comment:No Methicillin resis tant Staphylococcus aureus detected by PCR (amplified probe). Upper Respiratory Swab of internal nose / Unknown Non-blood Collection / Unknown 02/15/2024 3:14 PM EDT 02/15/2024 3:19 PM EDT Azeb NATARAJANNP LAB MICRO - GENERAL ORDERABLES LABORATORY [address] [address] * (ABNORMAL) PT INR (02/15/2024 2:40 PM EDT) Pathologist [facility] Prothrombin Time 26.6(H) 11.6 - 15.2 seconds 02/15/2024 3:09 PM EDT LABORATORY [facility] INR 2.4(H) 0.8 - 1.2 02/15/2024 3:09 PM EDT LABORATORY [facility] Blood Venous blood specimen / Unknown Venipuncture / Unknown 02/15/2024 2:40 PM EDT 02/15/2024 2:42 PM EDT Narrative LABORATORY [facility] - 02/15/2024 3:09 PM EDT Warfarin Therapy INR: 2.0-3.0 conventional anticoagulation INR: 2.5-3.5 high intensity anticoagulation Darian Haq DO LAB BLOOD ORDERAB LES LABORATORY [facility] [address] [place] [address] * XR CHEST 1 VIEW (02/15/2024 2:38 PM EDT) Anatomical Region Laterality Modality Chest Digital Radiogra phy 02/15/2024 2:28 PM EDT Impressions 02/15/2024 2:42 PM EDT IMPRESSION: 1. Very low lung volumes with atelectasis 2. Pulmonary edema not excluded 3. Bibasilar consolidation, right greater than left may represent atelectasis versus pneumonia 4. Small pleural effusions. THIS DOCUMENT HAS BEEN ELECTRONICALLY SIGNED BY AFSHIN SMITH MD Narrative 02/15/2024 2:42 PM EDT PROCEDURE INFORMATION: Exam: XR Chest Exam date [...] Heart/Mediastinum: The heart is enlarged. Bones/joints: Unremarkable. Procedure Note Afshin Smith MD - 02/15/2024 PROCEDURE INFORMATION: Exam: XR Chest Exam date and time: 02/15/2024 2:28 PM Age: 78 years old Clinical indication: Other: SOB; Additional info: Course breath sounds TECHNIQUE: Imaging protocol: Radiologic exam of the chest. Views: 1 view. COMPARISON: CT PULMONARY EMBOLUS W CONTRAST 03/26/2023 6:21 PM FINDINGS: Tubes, catheters and devices: Multiple monitoring leads projecting overthe field of view. PICC line tip projecting over the expected location of the subclavian vein. Lungs: There is poor ventilation of the lungs, accounting for mild diffuse increase in pulmonary parenchymal density. Nonspecific coarsening ofpulmonary parenchyma present. Increased bibasilar markings Pleural spaces: Small pleural effusions. Heart/Mediastinum: The heart is enlarged. Bones/joints: Unremarkable. IMPRESSION IMPRESSION: 1. Very low lung volumes with atelectasis 2. Pulmonary edema not excluded 3. Bibasilar consolidation, right greater than left may representatelectasis versus pneumonia 4. Small pleural effusions. THIS DOCUMENT HAS BEEN ELECTRONICALLY SIGNED BY AFSHIN SMITH MD Azeb PICKENS RADIOLOGY (RAD GENER AL) * (ABNORMAL) URINALYSIS WITH MICROSCOPIC EXAM (02/15/2024 12:39 PM EDT) Color, Urine Yellow Light Yellow, Yellow, Dark Yellow 02/15/2024 1:08 PM EDT LABORATORY [facility] Clarity, Urine Clear Clear 02/15/2024 1:08 PM EDT LABORATORY [facility] Glucose, Urine Negative Negative mg/dL 02/15/2024 1:08 PM EDT LABORATORY [facility] Bilirubin, Urine Negative Negative 02/15/2024 1:08 PM EDT LABORAT[facility] Ketone, Urine Negative Negative mg/dL 02/15/2024 1:08 PM EDT [facility] Specific [place], Urine 1.012 1.003 - 1.030 02/15/2024 1:08 PM EDT [facility] Blood, Urine Small(A) Negative 02/15/2024 1:08 PM EDT [facility] pH, Urine 5.5 5.0 - 7.5 Units 02/15/2024 1:08 PM EDT [facility] Protein, Urine 30(A) Negative mg/dL 02/15/2024 1:08 PM EDT [facility] Urobilinogen, Urine 0.2 0.2, 1.0 mg/dL 02/15/2024 1:08 PM EDT [facility] Nitrite, Urine Negative Negative 02/15/2024 1:08 PM EDT [facility] Esterase, Urine Negative Negative 02/15/2024 1:08 PM EDT [facility] RBC, Urine 3-5(A) 0 - 2 /HPF 02/15/2024 1:08 PM EDT [facility] WBC, Urine 3-5(A) 0 - 2 /HPF 02/15/2024 1:08 PM EDT [facility] Bacteria, Urine 0-25 0 - 25 /HPF 02/15/2024 1:08 PM EDT [facility] Amorphous Crystals, Urine Many(A) None /HPF 02/15/2024 1:08 PM EDT [facility] Urine Urine specimen obtained by clean catch procedure / Unknown Non-blood Collection / Unknown 02/15/2024 12:39 PM EDT 02/15/2024 12:52 PM EDT Cooper Phoenix MD LAB URINE ORDERABLES LABORATORY [address] [id number] * CT HEAD/BRAIN WO CONTRAST (02/15/2024 12:16 PM EDT) Anatomical Region Laterality Modality Head Computed Tomogra phy 02/15/2024 12:1 1 PM EDT Impressions 02/15/2024 12:46 PM EDT IMPRESSION: Title of the somewhat limited study. Chronic changes.No gross acute intracerebral hemorrhage, mass effect or midline shift. THIS DOCUMENT HAS BEEN ELECTRONICALLY SIGNED BY AFSHIN SMITH MD Narrative 02/15/2024 12:46 PM EDT PROCEDURE INFORMATION: Exam: CT Head Without Contrast [...] moderately limit the sensitivity of this examination. Procedure Note Afshin Smith MD - 02/15/2024 PROCEDURE INFORMATION: Exam: CT Head Without Contrast Exam date and time: 02/15/2024 12:11 PM Age: 78 years old Clinical indication: Other: AMS, on warfarin TECHNIQUE: Imaging protocol: Computed tomography of the head without contrast. Radiation optimization: All CT scans at this facility use at least one ofthese dose optimization techniques: automated exposure control; mA and/or kV adjustment per patient size (includes targeted exams where dose is matchedto clinical indication); or iterative reconstruction. COMPARISON: CT [...] Motion artifact does moderately limit the sensitivity ofthis examination. IMPRESSION IMPRESSION: Title of the somewhat limited study. Chronic changes.No gross acute intracerebral hemorrhage, mass effect or midline shift. THIS DOCUMENT HAS BEEN ELECTRONICALLY SIGNED BY AFSHIN SMITH MD Cooper Phoenix MD RAD CT * (ABNORMAL) CRP (INFLAMMATORY MARKER) (02/15/2024 11:03 AM EDT) CRP (Inflammatory Marker) 6(H) <=5 mg/L 02/16/2024 3:45 AM EDT LABORATORY [facility] Blood Venous blood specimen / Unknown Venipuncture / Unknown 02/15/2024 11:03 AM EDT 02/15/2024 11:14 AM EDT Azeb PICKENS LAB BLOOD ORDERABLES Performing Organization Address [facility] [place]/[facility] Co de Phone Number LABORATORY [address] [address] * MAGNESIUM (02/15/2024 11:03 AM EDT) Magnesium 2.1 1.5 - 2.6 mg/dL 02/15/2024 11:41 AM EDT LABORATORY GL Blood Venous blood specimen / Unknown Venipuncture / Unknown 02/15/2024 11:03 AM EDT 02/15/2024 11:14 AM EDT Cooper Phoenix MD LAB BLOOD ORDERABLES Performing Organization Address City/[facility]/ZIP Co de Phone Number LABORATORY [address] [address] * (ABNORMAL) BLOOD GAS, VENOUS (02/15/2024 11:03 AM EDT) Temperature 37.0 C 02/15/2024 11:13 AM EDT LABORATORY [facility] pH, Venous 7.319(L) 7.320 - 7.430 units 02/15/2024 11:13 AM EDT LABORATORY [facility] pCO2, Venous 51.2 40.0 - 60.0 mmHg 02/15/2024 11:13 AM EDT LABORATORY [facility] pO2, Venous 31.4 25.0 - 50.0 mmHg 02/15/2024 11:13 AM EDT LABORATORY [facility] Base Excess, Venous -0.4 -2.0 - 2.0 mmol/L 02/15/2024 11:13 AM EDT LABORATORY [facility] HGB 10.5(L) 14.0 - 16.8 g/dL 02/15/2024 11:13 AM EDT LABORATORY [facility] Oxyhemoglobin, Venous 44.7 40.0 - 85.0 % total Hgb 02/15/2024 11:13 AM EDT LABORATORY [facility] Carboxyhemoglobi n, Whole Blood 1.2 <=1.5 % total Hgb 02/15/2024 11:13 AM EDT LABORATORY [facility] Comment:Smokers: 0-9.0 % Methemoglobin, Whole Blood 0.5 <=1.5 % total Hgb 02/15/2024 11:13 AM EDT LABORATORY [facility] Reduced Hemoglobin, Venous 53.6 % total Hgb 02/15/2024 11:13 AM EDT LABORATORY GL[facility] O2 Content, Venous 6.6(L) 7.0 - 18.0 %vol 02/15/2024 11:13 AM EDT LABORATORY [facility] Bicarbonate, Whole Blood 25.6 23.0 - 31.0 mmol/L 02/15/2024 11:13 AM EDT LABORATORY [facility] Blood Venous blood specimen / Unknown Venipuncture / Unknown 02/15/2024 11:03 AM EDT 02/15/2024 11:09 AM EDT Cooper Phoenix MD LAB BLOOD ORDERABLES Performing Organization Address City/[facility] Co de Phone Number LABORATORY [facility] [address] [place] [address] * LACTATE (02/15/2024 11:03 AM EDT) Lactate 0.9 0.4 - 2.0 mmol/L 02/15/2024 11:37 AM EDT LABORATORY GL Blood Venous blood specimen / Unknown Venipuncture / Unknown 02/15/2024 11:03 AM EDT 02/15/2024 11:14 AM EDT Cooper Phoenix MD LAB BLOOD ORDERABLES Performing Organization Address City/[facility] Co de Phone Number LABORATORY [facility] [address], [place] [phone] * (ABNORMAL) COMPREHENSIVE METABOLIC PANEL (02/15/2024 11:03 AM EDT) BUN 50(H) 6 - 20 mg/dL 02/15/2024 11:41 AM EDT LABORATORY GL[facility] Creatinine 2.3(H) 0.6 - 1.2 mg/dL 02/15/2024 11:41 AM EDT LABORATORY [facility] Estimated Glomerular Filtration Rate 28(L) >=60 mL/min 02/15/2024 11:41 AM EDT LABORATORY GL[facility] Comment:eGFR is calculated b ased on the CKD-EPI 2020 equation Sodium 142 135 - 146 mmol/L 02/15/2024 11:41 AM EDT LABORATORY [facility] Potassium 4.5 3.5 - 5.1 mmol/L 02/15/2024 11:41 AM EDT LABORATORY [facility] Chloride 106 98 - 107 mmol/L 02/15/2024 11:41 AM EDT LABORATORY [facility] CO2 22 22 - 32 mmol/L 02/15/2024 11:41 AM EDT LABORATORY [facility] Anion Gap 14 7 - 15 mmol/L 02/15/2024 11:41 AM EDT LABORATORY [facility] Glucose 97 70 - 120 mg/dL 02/15/2024 11:41 AM EDT LABORATORY [facility] Albumin 4.0 3.8 - 5.0 g/dL 02/15/2024 11:41 AM EDT LABORATORY [facility] AST 16 10 - 50 U/L 02/15/2024 11:41 AM EDT LABORATORY [facility] Alkaline Phosphatase 91 35 - 130 U/L 02/15/2024 11:41 AM EDT LABORATORY [facility] Bilirubin, Total 0.3 <=1.2 mg/dL 02/15/2024 11:41 AM EDT LABORATORY [facility] Calcium 9.9 8.4 - 10.2 mg/dL 02/15/2024 11:41 AM EDT LABORATORY [facility] Protein 7.2 6.0 - 8.3 g/dL 02/15/2024 11:41 AM EDT LABORATORY [facility] ALT 12 10 - 50 U/L 02/15/2024 11:41 AM EDT LABORATORY [facility] Blood Venous blood specimen / Unknown Venipuncture / Unknown 02/15/2024 11:03 AM EDT 02/15/2024 11:14 AM EDT Cooper Phoenix MD LAB BLOOD ORDERABLES LABORATORY [facility] [address] [place] [address] * EKG (02/15/2024 10:48 AM EDT) 02/15/2024 10:4 8 AM EDT Narrative Procedure Note Beatriz Benson, DO - 02/15/2024 10:48 AM EDT REASON FOR STUDY: ELECTROLYTE ABNORMAL CONCLUSIONS: Atrial fibrillation with slow ventricular response Right bundle branch block Abnormal ECG When compared with ECG of 26-Jan-2024 13:13, No significant change was found Ventricular Rate: 58 Atrial Rate: 55 QRS Duration: 178 QT/QTc: 490/481 ms P-R-T [place]: 0 : 111 : -9 degrees Cooper Phoenix MD EKG [facility] documented in this encounter Visit Diagnoses Diagnosis CLADUY (acute kidney injury) ([facility])- Primary Acute kidney failure, unspecified Electrolyte abnormality Electrolyte and fluid disorders not elsewhere classified CLAUDY (acute kidney injury) (HCC) Acute kidney failure, unspecified Chest pain Chest pain, unspecified Altered mental status, unspecified Atelectasis Pulmonary collapse Pleural effusion, not elsewhere classified Other specified symptoms and signs involving the circulatory and respiratory systems Other nonspecific abnormal finding of lung field Encephalopathy acute Encephalopathy, unspecified PAF (paroxysmal atrial fibrillation) (HCC) Atrial fibrillation Acute osteomyelitis of temporal bone (HCC) Acute osteomyelitis, other specified site PICC (peripherally inserted central catheter) in place Fitting and adjustment of vascular catheter Dysarthria Expressive aphasia Aphasia 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) Malignant neoplasm of parotid gland Dyslipidemia, goal LDL below 70 Other and unspecified hyperlipidemia Heart failure, systolic, due to CAD (HCC) Unspecified systolic heart failure Essential hypertension with goal blood pressure less than 140/90 documented in this encounter Administered Medications Inactive Administered Medications - up to 3 most recent administrations Medication Order MAR Action Action Date Dose Rate Site Acetaminophen (Tylenol) tab 650 mg 650 mg, Oral, Q6H PRN Pain, Mild, Fever >38C(100.5F), Starting on Deb 02/15/24 at 1341, Until 02/21/24 at 2209, Maximum of 4 grams (4000 mg) per day. Given 02/21/2024 4:08 PM EDT 650 mg Given 02/20/2024 5:44 PM EDT 650 mg Given 02/20/2024 6:19 AM EDT 650 mg amLODIPine (Norvasc) tab 10 mg 10 mg, Oral, Daily(AM), First dose (after last modification) on Mon02/21/24 at 0900, Until Discontinued Given 02/21/2024 11:37 AM EDT 10 mg amLODIPine (Norvasc) tab 2.5 mg 2.5 mg, Oral, Daily(AM), First dose on Mon02/16/24 at 0900, Until Discontinued Given 02/18/2024 8:51 AM EDT 2.5 mg Given 02/17/2024 8:22 AM EDT 2.5 mg Given 02/16/2024 8:37 AM EDT 2.5 mg amLODIPine (Norvasc) tab 2.5 mg 2.5 mg, Oral, ONCE, On Mon02/18/24 at 1200, For 1 dose Given 02/18/2024 12:26 PM EDT 2.5 mg amLODIPine (Norvasc) tab 5 mg 5 mg, Oral, Daily(AM), First dose (after last modification) on Mon02/19/24 at 0900, Until Discontinued Given 02/20/2024 8:47 AM EDT 5 mg Given 02/19/2024 8:55 AM EDT 5 mg atorvaSTATin (Lipitor) tab 20 mg 20 mg, Oral, Q1700, First dose on Deb 02/15/24 at 1700, Until Discontinued, In the morning. Given 02/20/2024 5:44 PM EDT 20 mg Given 02/19/2024 5:21 PM EDT 20 mg Given 02/18/2024 5:53 PM EDT 20 mg Bisacodyl (Dulcolax) supp 10 mg 10 mg, Rectal, DAILY PRN Constipation, Starting on Mon02/18/24 at 1356, Until Mon02/21/24 at 2209, Administer if no bowel movement within past 72 hours and patient unable to take oral medications. Bisacodyl (Dulcolax) tab 5 mg 5 mg, Oral, DAILY PRN Constipation, Starting on Mon02/18/24 at 1356, Until Mon02/21/24 at 2209, Administer in addition to polyethylene glycol and senna-docusate if no bowel movement in past 72 hours. cefepime in dextrose (Maxipime) ivpb 1 g 1 g, IV Piggyback, Q12H, 10 doses, First dose on Mon02/15/24 at 2100, Last dose on Mon02/20/24 at 0900, Administer over 30 Minutes New Bag 02/16/2024 8:42 AM EDT 1 g 100 mL/hr 02/15/2024 9:17 PM EDT 1 g 100 mL/hr cefepime in dextrose (Maxipime) ivpb 1 g 1 g, IV Piggyback, Q8HNOW, 10 doses, First dose on Mon02/16/24 at 1600, Last dose on Mon02/19/24 at 1600, Administer over 30 Minutes New 02/18/2024 8:49 AM EDT 1 g 100 mL/hr New Bag 02/17/2024 11:21 PM EDT 1 g 100 mL/hr New 02/17/2024 4:32 PM EDT 1 g 100 mL/hr chlorhexidine gluconate cloth 2 % pad External, [id number], First dose on Mon02/16/24 at 1000, Until Discontinued, Applied to appropriate patients per skidder driver's recommendations FOLLOWING daily care. Given 02/21/2024 10:00 AM EDT Given 02/20/2024 8:51 AM EDT 1 Pad Given 02/19/2024 8:57 AM EDT 1 Pad DAKINS 1/2 strength (0.25%) topical solution Topical, Q12H, First dose (after last modification) on Mon02/15/24 at 2100, Until Discontinued, Apply to left ear At least once daily: - 1/2 st Dakins irrigation, blot dry - Thin layer of vaseline over ulcerated area and scabs - Vaseline gauze over periauricular ulcer - 4x4 gauze buttress - ABD pad - Fishnet compressive head wrap Given 02/21/2024 11:37 AM EDT Given 02/20/2024 9:00 PM EDT Given 02/20/2024 8:48 AM EDT DAPTOmycin (Cubicin) inj 750 mg IV Push, Administer over 2 Minutes, Q48H, 7 doses, First dose on Mon02/20/24 at 1000, Last dose on Mon03/03/24 at 1000 Given 02/20/2024 11:23 AM EDT 750 mg EUCERIN cream Topical, BID (.AM/PM), First dose on Mon02/15/24 at 2100, Until Discontinued, Apply to rudy LE Given 02/21/2024 11:37 AM EDT Given 02/20/2024 9:00 PM EDT Given 02/20/2024 8:49 AM EDT isolyte-S pH 7.4 infusion Intravenous, at 75 mL/hr, Plasma-LYTE 148, isolyte-S, and isolyte-S pH 7.4 are considered equivalent - including for MAR barcode scanning., CONTINUOUS, Starting on 02/17/24 at 1130, Until 02/17/24 at 1307 New Bag 02/17/2024 11:26 AM EDT 75 m L/hr LORazepam (Ativan) tab 1 mg 1 mg, Oral, ONCE, On Mon02/15/24 at 1730, For 1 dose, 30 minutes prior to MRI Given 02/15/2024 6:34 PM EDT 1 mg meropenem (Merrem) IVPB 1,000 mg 1,000 mg, IV Piggyback, ONCE, 1 dose, On Mon02/18/24 at 1215 New 02/18/2024 12:36 PM EDT 1,000 mg 1 00 mL/hr meropenem in NSS (Merrem) ivpb 500 mg 500 mg, IV Piggyback, Q8HNOW, 15 doses, First dose on Mon02/18/24 at 2030, Last dose on Mon02/23/24 at 1230 New 02/21/2024 1:06 PM EDT 500 mg 100 mL/hr Rate Verify 02/21/2024 3:56 AM EDT 1,000 mg/hr 100 mL/hr New Bag 02/21/2024 3:54 AM EDT 500 mg 100 mL/hr metoprolol succinate XL (toPROL XL) tab 25 mg 25 mg, Oral, Daily(AM), First dose on Mon02/16/24 at 0900, Until Discontinued, Hold for HR less than 60 or SBP below 100 and notify service if dose is held This med should NOT be Crushed or Chewed. Given 02/21/2024 11:38 AM EDT 25 mg Given 02/20/2024 8:47 AM EDT 25 mg Given 02/19/2024 8:55 AM EDT 25 mg Miconazole Nitrate (Remedy) powder Topical, BID (.AM/PM), First dose on Mon02/18/24 at 2100, Until Discontinued, Apply to affected area Given 02/21/2024 11:39 AM EDT Given 02/20/2024 9:00 PM EDT Given 02/20/2024 8:49 AM EDT multivitamin (Mvi) 1 Tablet 1 Tablet, Oral, DAILY NOON, First dose on Deb 02/15/24 at 1430, Until Discontinued Given 02/21/2024 1:05 PM EDT 1 Ta blet Given 02/20/2024 11:23 AM EDT 1 Tablet Given 02/19/2024 12:16 PM EDT 1 Tablet NSS 0.9% 1,000 mL bolus infusion Intravenous, at 1,000 mL/hr Administer over 60 Minutes, Administer entire volume within 60 minutes or less., ONCE, 1 dose, On Mon02/15/24 at 1045 Restarted 02/15/2024 11:07 AM EDT 1000 mL/hr New Bag 02/15/2024 10:33 AM EDT 1,000 mL 1000 mL/hr NSS infusion 1,000 mL, Intravenous, at 125 mL/hr, NSS at 125 ml/hour X 1 liter then cap and maintain peripheral site, CONTINUOUS, Starting on Deb 02/15/24 at 1430, Until 02/17/24 at 1046 KVO 02/17/2024 9:08 AM EDT 5 mL/hr Rate Change 02/17/2024 8:57 AM EDT 100 mL/hr KVO 02/17/2024 1:23 AM EDT 5 mL/hr omeprazole (PriLOSEC) cap 20 mg 20 mg, Oral, Daily(AM), First dose on Mon02/16/24 at 0900, Until Discontinued, This med should NOT be Crushed or Chewed Given 02/21/2024 11:37 AM EDT 20 mg Given 02/20/2024 8:47 AM EDT 20 mg Given 02/19/2024 8:55 AM EDT 20 mg Oral Hygiene: Mouth Swab with dentifrice Oral, PCHS, First dose on Deb 02/15/24 at 1415, Until Discontinued, To be used with 1.5% hydrogen peroxide solution or 0.05% cetylpyridium chloride oral rinse Given 02/16/2024 9:00 AM EDT Given 02/15/2024 10:00 PM EDT Given 02/15/2024 6:00 PM EDT Oral Hygiene: Mouth Swab with dentifrice Oral, PCHS, First dose on Mon02/19/24 at 0900, Until Discontinued, To be used with 1.5% hydrogen peroxide solution or 0.05% cetylpyridium chloride oral rinse Given 02/20/2024 9:00 PM EDT 1 Kit Given 02/20/2024 1:00 PM EDT Given 02/20/2024 9:00 AM EDT oxyCODONE (Oxy IR) tab 5 mg 5 mg, Oral, Q6H PRN Pain, Moderate, Pain, Severe, Starting on Deb 02/15/24 at 1341, Until Mon02/21/24 at 2209 Given 02/19/2024 5:21 PM EDT 5 mg Polyethylene Glycol 3350 (Miralax) oral powder 17 g 17 g (1 Packet), Oral, DAILY PRN Constipation, Starting on Deb 02/15/24 at 1356, Until Mon02/21/24 at 2209, Administer if no bowel movement within past 24 hours. senna-docusate (Senokot-S) 1 Tablet 1 Tablet, Oral, BID PRN Constipation, Starting on 02/17/24 at 1356, Until Mon02/21/24 at 2209, Administer in addition to polyethylene glycol if no bowel movement within past 48 hours. sodium chloride 0.9 % flush central line 10 mL 10 mL, IV Push, Q8H, First dose on Deb 02/15/24 at 1415, Until Discontinued, TO UNUSED PORTS Do not flush if lock, PICC, or central line not in place; IV infusing or unable to flush. Given 02/21/2024 2:0 0 PM EDT 10 mL Given 02/21/2024 6:00 AM EDT 10 mL Given 02/20/2024 10:00 PM EDT 10 mL sodium chloride 0.9 % flush/inj 3 mL 3 mL, IV Push, PRN Other, Line Patency, Starting on Deb 02/15/24 at 1351, Until Mon02/21/24 at 2209, Do not flush if lock, PICC, or central line not in place, IV infusing or unable to flush Vancomycin (Vancocin) 2000 mg in NSS 500 mL ivpb 2,000 mg, IV Piggyback, ONCE, 1 dose, On Deb 02/15/24 at 1500 Rate Verify 02/15/2024 5:41 PM EDT 1,000 mg/hr 285 mL/hr Restarted 02/15/2024 5:22 PM EDT 1,000 mg/hr 285 mL/hr Restarted 02/15/2024 5:20 PM EDT 1,000 mg/hr 285 mL/hr Warfarin Sodium (Coumadin) tab 10 mg 10 mg, Oral, QPM-1999, First dose on Mon02/19/24 at 1999, Last dose on Mon02/19/24 at 1999, For 1 day, WASTE INFO: Return packaging and waste medication in zip lock bag to pharmacy - [facility] container. Given 02/19/2024 8:13 PM EDT 10 mg Warfarin Sodium (Coumadin) tab 7.5 mg 7.5 mg, Oral, QPM-1999, First dose on Mon02/16/24 at 1999, Last dose on Mon02/16/24 at 1999, For 1 day, WASTE INFO: Return packaging and waste medication in zip lock bag to pharmacy - [facility] container. Given 02/16/2024 9:58 PM EDT 7.5 mg Warfarin Sodium (Coumadin) tab 7.5 mg 7.5 mg, Oral, QPM-1999, First dose on 02/17/24 at 1999, Last dose on Mon02/17/24 at 1999, For 1 day, WASTE INFO: Return packaging and waste medication in zip lock bag to pharmacy - [facility] container. Given 02/17/2024 9:08 PM EDT 7.5 mg Warfarin Sodium (Coumadin) tab 7.5 mg 7.5 mg, Oral, QPM-1999, First dose on 02/18/24 at 1999, Last dose on 02/18/24 at 1999, For 1 day, WASTE INFO: Return packaging and waste medication in zip lock bag to pharmacy - [facility] container. Given 02/18/2024 9:40 PM EDT 7.5 mg Warfarin Sodium (Coumadin) tab 7.5 mg 7.5 mg, Oral, QPM-1999, First dose on Mon02/20/24 at 1999, Last dose on Mon02/20/24 at 1999, For 1 day, WASTE INFO: Return packaging and waste medication in zip lock bag to pharmacy - [facility] container. Given 02/20/2024 8:55 PM EDT 7.5 mg Warfarin Sodium (Coumadin) tab 7.5 mg 7.5 mg, Oral, QPM-1999, First dose on Mon02/21/24 at 1999, Last dose on Mon02/21/24 at 1999, For 1 day, WASTE INFO: Return packaging and waste medication in zip lock bag to pharmacy - [facility] container. documented in this encounter Active and Recently Administered Medications Times are shown in EDT. Scheduled Medication Order 02/19/2024 02/20/2024 02/21/2024 amLODIPine (Norvasc) tab 10 mg 10 mg, Oral, Daily(AM), First dose (after last modification) on Mon02/21/24 at 0900, Until Discontinued 1137 (Given - Provider: Mally Ventura RN) amLODIPine (Norvasc) tab 5 mg (CANCELED) 5 mg, Oral, Daily(AM), First dose (after last modification) on Mon02/19/24 at 0900, Until Discontinued 0855 (Given - Provider: Anastasiia Chavez RN) 0847 (Given - Provider: Anastasiia Chavez RN) atorvaSTATin (Lipitor) tab 20 mg (CANCELED) 20 mg, Oral, Q1700, First dose on Mon02/15/24 at 1700, Until Discontinued, In the morning. 1721 (Given - Provider: Anastasiia Chavez RN) 1744 (Given - Provider: Anastasiia Chavez RN) chlorhexidine gluconate cloth 2 % pad External, [id number], First dose on Mon02/16/24 at 1000, Until Discontinued, Applied to appropriate patients per skidder driver's recommendations FOLLOWING daily care. 0857 (Given - Provider: Anastasiia Chavez RN) 0851 (Given - Provider: Anastasiia Chavez RN) 1000 (Given - Provider: Mally Ventura, KATLYN) DAKINS 1/2 strength (0.25%) topical solution Topical, Q12H, First dose (after last modification) on Mon02/15/24 at 2100, Until Discontinued, Apply to left ear At least once daily: - 1/2 st Dakins irrigation, blot dry - Thin layer of vaseline over ulcerated area and scabs - Vaseline gauze over periauricular ulcer - 4x4 gauze buttress - ABD pad - Fishnet compressive head wrap 0855 (Given - Provider: Anastasiia Chavez RN)2031 (Given - Provider: Lou Young RN) 0848 (Given - Provider: Anastasiia Chavez RN)2099 (Given - Provider: Travis Frye LPN) 1137 (Given - Provider: Mally Ventura RN) DAPTOmycin (Cubicin) inj 750 mg IV Push, Administer over 2 Minutes, Q48H, 7 doses, First dose on Mon02/20/24 at 1000, Last dose on Mon03/03/24 at 1000 1123 (Given - Provider: Anastasiia Chavez RN) EUCERIN cream Topical, BID (.AM/PM), First dose on Mon02/15/24 at 2100, Until Discontinued, Apply to bilat LE 0857 (Given - Provider: Anastasiia Chavez RN)2020 (Given - Provider: Lou Young RN) 0849 (Given - Provider: Anastasiia Chavez RN)2099 (Given - Provider: Travis Frye LPN) 113 (Given - Provider: Mally Ventura RN - Comment: given at 0900, late chartingPT/OT, bath) meropenem in NSS (Merrem) ivpb 500 mg 500 mg, IV Piggyback, Q8HNOW, 15 doses, First dose on Mon02/18/24 at 2030, Last dose on Mon02/23/24 at 1230 0545 (New Bag - Provider: Miriam Ivy RN)0615 (Stopped - Provider: Miriam Ivy RN)1224 (New Bag - Provider: Flower Loyola RN)1254 (Stopped - Provider: Flower Loyola RN)2017 (New Bag - Provider: Lou Young RN)2047 (Stopped - Provider: Ashlee Atkinson RN) 0405 (New Bag - Provider: Lou Young RN)0436 (Stopped - Provider: Lou Young RN)1135 (New Bag - Provider: Anastasiia Chavez RN)1205 (Stopped - Provider: Travis Frye LPN)2058 (New Bag - Provider: Travis Frye LPN)212 (Stopped - Provider: Travis Frye LPN) 0354 (New Bag - Provider: Travis Frye LPN)0356 (Rate Verify - Provider: Travis Frye LPN)0424 (Stopped - Provider: Travis Frye LPN)1306 (New Bag - Provider: Mally Ventura RN)2208 (Due: Stopped) metoprolol succinate XL (toPROL XL) tab 25 mg 25 mg, Oral, Daily(AM), First dose on Mon02/16/24 at 0900, Until Discontinued, Hold for HR less than 60 or SBP below 100 and notify service if dose is held This med should NOT be Crushed or Chewed. 0855 (Given - Provider: Anastasiia Chavez RN) 0847 (Given - Provider: Anastasiia Chavez RN) 1138 (Given - Provider: Mally Ventura RN - Comment: pt/ot/bath) Miconazole Nitrate (Remedy) powder Topical, BID (.AM/PM), First dose on Mon02/18/24 at 2100, Until Discontinued, Apply to affected area 0900 (Not Given - Provider: Anastasiia Chavez RN - Reason: Refused-Notify Provider)2020 (Given - Provider: Lou Young RN) 0849 (Given - Provider: Anastasiia Chavez RN)2100 (Given - Provider: Travis Frye LPN) 1139 (Given - Provider: Mally Ventura RN) multivitamin (Mvi) 1 Tablet 1 Tablet, Oral, DAILY NOON, First dose on Mon02/15/24 at 1430, Until Discontinued 1216 (Given - Provider: Flower Loyola RN) 1123 (Given - Provider: Anastasiia Chavez RN) 1305 (Given - Provider: Mally Ventura RN) omeprazole (PriLOSEC) cap 20 mg 20 mg, Oral, Daily(AM), First dose on Mon02/16/24 at 0900, Until Discontinued, This med should NOT be Crushed or Chewed 0855 (Given - Provider: Anastasiia Chavez RN) 0847 (Given - Provider: Anastasiia Chavez RN) 1137 (Given - Provider: Mally Ventura RN) Oral Hygiene: Mouth Swab with dentifrice Oral, PCHS, First dose on Mon02/19/24 at 0900, Until Discontinued, To be used with 1.5% hydrogen peroxide solution or 0.05% cetylpyridium chloride oral rinse 0900 (Given - Provider: Anastasiia Chavez RN)1300 (Given - Provider: Anastasiia Chavez RN)1800 (Given - Provider: Anastasiia Chavez RN)2200 (Given - Provider: Lou Young RN) 0900 (Given - Provider: Anastasiia Chavez RN)1300 (Given - Provider: Anastasiia Chavez RN)1800 (Not Given - Provider: Anastasiia Chavez RN - Reason: Refused-Notify Provider)2100 (Given - Provider: Travis Frye LPN) 0900 (Not Given - Provider: Mally Ventura RN - Reason: Refused-Notify Provider)1300 (Not Given - Provider: Mally Ventura RN - Reason: Refused-Notify Provider)1800 (Due) sodium chloride 0.9 % flush central line 10 mL 10 mL, IV Push, Q8H, First dose on Deb 02/15/24 at 1415, Until Discontinued, TO UNUSED PORTS Do not flush if lock, PICC, or central line not in place; IV infusing or unable to flush. 0600 (Given - Provider: Miriam Ivy, KATLYN)1456 (Given - Provider: Anastasiia Chavez, KATLYN)2200 (Given - Provider: Lou Young RN) 0600 (Given - Provider: Lou Young RN)1446 (Given - Provider: Anastasiia Chavez, KATLYN)2200 (Given - Provider: Travis Frye LPN) 0600 (Given - Provider: Travis Frye LPN)1400 (Given - Provider: Mally Ventura RN) warfarin check daily dose (PHARMACIST MANAGED) [id number], First dose on Deb 02/15/24 at 1500, Until Discontinued, Routine, Contact the pharmacy if there is not a warfarin dose entered by 1500 and document with whom it was discussed. 1500 (Order Check Addressed - Provider: Anastasiia Chavez RN) 1500 (Order Check Addressed - Provider: Anastasiia Chavez RN) 1500 (Due) Warfarin Sodium (Coumadin) tab 10 mg (COMPLETED) 10 mg, Oral, QPM-1999, First dose on Mon02/19/24 at 1999, Last dose on Mon02/19/24 at 1999, For 1 day, WASTE INFO: Return packaging and waste medication in zip lock bag to pharmacy - [facility] container. 2012 (Given - Provider: Lou Young RN) Warfarin Sodium (Coumadin) tab 7.5 mg (COMPLETED) 7.5 mg, Oral, QPM-1999, First dose on Mon02/20/24 at 1999, Last dose on Mon02/20/24 at 1999, For 1 day, WASTE INFO: Return packaging and waste medication in zip lock bag to pharmacy - [facility] container. 2054 (Given - Provider: Travis Frye LPN) Warfarin Sodium (Coumadin) tab 7.5 mg 7.5 mg, Oral, QPM-1999, First dose on Mon02/21/24 at 1999, Last dose on Mon02/21/24 at 1999, For 1 day, WASTE INFO: Return packaging and waste medication in zip lock bag to pharmacy - [facility] container. PRN Medication Order 02/19/2024 02/20/2024 02/21/2024 Acetaminophen (Tylenol) tab 650 mg 650 mg, Oral, Q6H PRN Pain, Mild, Fever >38C(100.5F), Starting on Deb 02/15/24 at 1341, Until 02/21/24 at 2209, Maximum of 4 grams (4000 mg) per day. 0043 (Given - Provider: Eun Reinoso LPN) 0619 (Given - Provider: Lou Young RN)1744 (Given - Provider: Anastasiia Chavez RN) 1608 (Given - Provider: Idalia Quintana RN - Comment: give per Dr. Haq) Bisacodyl (Dulcolax) supp 10 mg(Linked Group 1) 10 mg, Rectal, DAILY PRN Constipation, Starting on 02/18/24 at 1356, Until Mon02/21/24 at 2209, Administer if no bowel movement within past 72 hours and patient unable to take oral medications. Bisacodyl (Dulcolax) tab 5 mg(Linked Group 1) 5 mg, Oral, DAILY PRN Constipation, Starting on 02/18/24 at 1356, Until 02/21/24 at 2209, Administer in addition to polyethylene glycol and senna-docusate if no bowel movement in past 72 hours. oxyCODONE (Oxy IR) tab 5 mg 5 mg, Oral, Q6H PRN Pain, Moderate, Pain, Severe, Starting on Deb 02/15/24 at 1341, Until 02/21/24 at 2209 1721 (Given - Provider: Anastasiia Chavez RN) Polyethylene Glycol 3350 (Miralax) oral powder 17 g(Linked Group 1) 17 g (1 Packet), Oral, DAILY PRN Constipation, Starting on Deb 02/15/24 at 1356, Until 02/21/24 at 2209, Administer if no bowel movement within past 24 hours. senna-docusate (Senokot-S) 1 Tablet(Linked Group 1) 1 Tablet, Oral, BID PRN Constipation, Starting on 02/17/24 at 1356, Until 02/21/24 at 2209, Administer in addition to polyethylene glycol if no bowel movement within past 48 hours. sodium chloride 0.9 % flush/inj 3 mL 3 mL, IV Push, PRN Other, Line Patency, Starting on Deb 02/15/24 at 1351, Until 02/21/24 at 2209, Do not flush if lock, PICC, or central line not in place, IV infusing or unable to flush Linked Groups Order Group 1: Polyethylene Glycol 3350 (Miralax) oral powder 17 gJump to med 17 g (1 Packet), Oral, DAILY PRN Constipation, Starting on Deb 02/15/24 at 1356, Until 02/21/24 at 2209, Administer if no bowel movement within past 24 hours. And senna-docusate (Senokot-S) 1 TabletJump to med 1 Tablet, Oral, BID PRN Constipation, Starting on 02/17/24 at 1356, Until 02/21/24 at 2209, Administer in addition to polyethylene glycol if no bowel movement within past 48 hours. And Bisacodyl (Dulcolax) tab 5 mgJump to med 5 mg, Oral, DAILY PRN Constipation, Starting on 02/18/24 at 1356, Until 02/21/24 at 2209, Administer in addition to polyethylene glycol and senna-docusate if no bowel movement in past 72 hours. And Bisacodyl (Dulcolax) supp 10 mgJump to med 10 mg, Rectal, DAILY PRN Constipation, Starting on 02/18/24 at 1356, Until 02/21/24 at 2209, Administer if no bowel movement within past 72 hours and patient unable to take oral medications. 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 documented as of this encounter Advance Directives Documents on File Type Date Recorded Patient Nutrition Aide Expl anation POLST 02/16/2024 signed on 12/17 [place] ORDERS FOR LIFE-SUSTAINING TREATMENT POLST 04/26/2023 [place] OR DERS FOR LIFE-SUSTAINING TREATMENT * Full [...] Agents on File Name Relationship Healthcare [facility] Child Power of Lard Renderer Care Teams Derrick Helper Relationship Specialty Start Date End Date Jad Boone MD [address] [facility] [place] [address] PCP - General Family Medicine 09/20/23 documented as of this encounter
--- OUTSIDE RECORDS SUMMARY | 2024-04-25 23:49 | External Medical Summary ---
Author Name Unknown Address Unknown Organization K1F:LABORATORY [facility] - [address] [place] [address] Laboratory Report Ordering Provider Test Date Status ARTURO ESQUIVEL 02/19/2024 08:22:00 Final Observation Date Value Abnormality Reference (Units ) Status WBC, Total 02/19/2024 08:22:00 8.24 4.00-10.80 (K/uL) Final RBC 02/19/2024 08:22:00 3.71 4.50-5.25 (M/uL) Final Hemoglobin 02/19/2024 08:22:00 10.4 Below low normal 14.0-16.8 (g/dL) Final HCT 02/19/2024 08:22:00 32.0 Below low normal 40.0-48.4 (%) Final MCV 02/19/2024 08:22:00 86.3 82.0-99.5 (fL) Final MCH 02/19/2024 08:22:00 28.0 27.0-34.0 (pg) Final MCHC 02/19/2024 08:22:00 32.5 32.0-36.0 (g/dL) Final RDW 02/19/2024 08:22:00 17.2 11.5-15.5 (%) Final Platelets 02/19/2024 08:22:00 108 Below low normal 140-400 (K/uL) Final MPV 02/19/2024 08:22:00 10.0 6.6-11.1 (fL) Final Nucleated erythrocytes/100 leukocytes [Ratio] in Blood by Automated count 02/19/2024 08:22:00 0 <=0 (/100 WBCs) Final Performing Location LABORATORY [facility] - [address] [place] [address]
--- OUTSIDE RECORDS SUMMARY | 2024-04-25 23:49 | External Medical Summary ---
Author Name Unknown Address Unknown Organization K1F:LABORATORY [facility] - [address] [place] [address] Laboratory Report Ordering Provider Test Date Status FRITZ DORANTES 02/19/2024 04:15:00 Final Warfarin Therapy
INR: 2 .0-3.0 conventional anticoagulation
INR: 2.5- 3.5 high intensity anticoagulation Observation Date Value Abnormality Reference (Units ) Status PT 02/19/2024 04:15:00 26.8 Above high normal 11 .6-15.2 (seconds) Final INR 02/19/2024 04:15:00 2.4 Above high normal 0. 8-1.2 Final Performing Location LABORATORY [facility] - [address] [place] [address]
--- OUTSIDE RECORDS SUMMARY | 2024-04-25 23:49 | External Medical Summary ---
Author Name Unknown Address Unknown Organization K1F:LABORATORY [facility] - [address] [address] Laboratory Report Ordering Provider Test Date Status FRITZ DORANTES 02/21/2024 04:40:00 Final Warfarin Therapy
INR: 2 .0-3.0 conventional anticoagulation
INR: 2.5- 3.5 high intensity anticoagulation Observation Date Value Abnormality Reference (Units ) Status PT 02/21/2024 04:40:00 29.2 Above high normal 11 .6-15.2 (seconds) Final INR 02/21/2024 04:40:00 2.7 Above high normal 0. 8-1.2 Final Performing Location LABORATORY [facility] - [address] [place] [address]
--- OUTSIDE RECORDS SUMMARY | 2024-04-25 23:49 | External Medical Summary ---
Author Name Unknown Address Unknown Organization K1F:LABORATORY [facility] - [address] [place] [address] Laboratory Report Ordering Provider Test Date Status ARNAV YORKTOMASA 02/17/2024 06:31:00 Final Observation Date Value Abnormality Reference (Units ) Status WBC, Total 02/17/2024 06:31:00 8.95 4.00-10.80 (K/uL) Final RBC 02/17/2024 06:31:00 3.69 4.50-5.25 (M/uL) Final Hemoglobin 02/17/2024 06:31:00 10.1 Below low normal 14.0-16.8 (g/dL) Final HCT 02/17/2024 06:31:00 32.4 Below low normal 40.0-48.4 (%) Final MCV 02/17/2024 06:31:00 87.8 82.0-99.5 (fL) Final MCH 02/17/2024 06:31:00 27.4 27.0-34.0 (pg) Final MCHC 02/17/2024 06:31:00 31.2 32.0-36.0 (g/dL) Final RDW 02/17/2024 06:31:00 17.0 11.5-15.5 (%) Final Platelets 02/17/2024 06:31:00 100 Below low normal 140-400 (K/uL) Final MPV 02/17/2024 06:31:00 10.0 6.6-11.1 (fL) Final Nucleated erythrocytes/100 leukocytes [Ratio] in Blood by Automated count 02/17/2024 06:31:00 0 <=0 (/100 WBCs) Final Performing Location LABORATORY [facility] - [address] [place] [address]
--- OUTSIDE RECORDS SUMMARY | 2024-04-25 23:49 | External Medical Summary ---
Author Name Unknown Address Unknown Organization K1F:LABORATORY [facility] - [address] [place] [address] Laboratory Report Ordering Provider Test Date Status ARTURO ESQUIVEL 02/21/2024 04:40:00 Final Observation Date Value Abnormality Reference (Units ) Status BUN 02/21/2024 04:40:00 46 Above high normal 6-20 (mg/dL) Final Creatinine 02/21/2024 04:40:00 2.7 Above high normal 0.6-1.2 (mg/dL) Final Glomerular filtration rate/1.73 sq M.predicted [Volume Rate/Area] in Serum, Plasma or Blood by Creatinine-based formula (CKD-EPI) 02/21/2024 04:40:00 23 Below low normal >=60 (mL/min) Final eGFR is calculated based on the CKD-EPI 2020 equation Sodium 02/21/2024 04:40:00 140 135-146 (m mol/L) Final Potassium 02/21/2024 04:40:00 4.0 3.5-5.1 (m mol/L) Final Cl 02/21/2024 04:40:00 106 98-107 (mm ol/L) Final CO2 02/21/2024 04:40:00 24 22-32 (mmo l/L) Final Anion gap 02/21/2024 04:40:00 10 7-15 (mmol /L) Final Glucose 02/21/2024 04:40:00 90 70-120 (mg /dL) Final Calcium 02/21/2024 04:40:00 9.1 8.4-10.2 ( mg/dL) Final Performing Location LABORATORY [facility] - [address] [place] [address]
--- OUTSIDE RECORDS SUMMARY | 2024-04-25 23:49 | External Medical Summary | Summary of Care ---
Author Name Unknown Organization [facility] Address [address] [place] [address] Phone [phone] Care Team Providers Care Fire Alarm Repairer Name Role Phone Jad Boone MD Primary Care Provider Encounter Details Date Type Department Care Team (Late st Contact Info) Description 02/16/2024 Population Health External Data Unspecified Department Allergies Active Allergy Reactions Criticality Noted Date Comments Bee Venom Hives High 03/14/2017 documented as of this encounter (statuses as of 02/16/2024) Medications Medication Sig Dispensed Refills Start Date End Date Status Omeprazole 20 MG Oral Capsule Delayed Release (PriLOSEC) Take 1 Capsule by mouth in the morning. 90 Capsule 1 3 Suspended Additional Information Vitamin D3 1.25 MG (17255 UT) Oral Capsule Take 1 Capsule by mouth once a week. 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) ([facility]) Take 1 Tablet by mouth in [...] failure with preserved ejection fraction (HFpEF) ([facility]) Take 1 Tablet by mouth in [...] Oral Tablet (Coumadin)Indicat ions:PAF (paroxysmal atrial fibrillation) (HCC) Take 1 tablet by mouth on Monday and 1.5 tablet by mouth S,S,M,T,W,TH 4 Suspended documented as of this encounter (statuses as of 02/16/2024) Active Problems Problem Noted Date Diagnosed Date [...] fibrillation) 10/18/2018 Coronary artery disease invo lving cheesh-na coronary artery without angina pectoris 01/07/2015 [facility] current use of anticoagulant therapy 0 05/01/2014 Overview: ICD-10 update of inactive term Heart failure, systolic, due to CAD 08/28/2012 Overview: ECHO 2011 - Segmental wall abnormality, severe hypokinesis of anterior septum, anterior wall, apex, distal inferior septum, distal inferior wall, and distal posterior wall EF 33% Mass of left parotid gland documented as of this encounter (statuses as of 02/16/2024) Resolved Problems Problem Noted Date Diagnosed Date [...] as of this encounter (statuses as of 02/16/2024) Immunizations Name Administration Dates Next Due COVID-19 mRNA, LNP-s, No Pre serve, 2-Dose Series (Skinny Mom) 11/26/2020,11/05/2020 Pneumococcal Conjugate Vacc, 13 Valent (Prevnar) [...] EDT Anticoagulation Centralized Clinical Pharmacy Services, [facility] Dalia [address] [place] [address] [place] [address] [place] [address] 03/18/2024 9:40 AM EDT Office Visit Wound Care, [address] [address] Hermes Noble MD [address] [place] [address] 04/02/2024 9:40 AM EDT Office Visit Infectious Disease [facility] [address] [place] [phone] Rio Chun, DO [address] [place] [address] 06/06/2024 9:30 AM EDT Office Visit Cardiology, [address] [address] Yas Mckinnon CRNP [address] [place], [place] [id number] 07/23/2024 9:30 AM EST Office Visit Radiation Oncology, [facility] [address] [place] [address] Eros Faust MD [address] [place] [address] Health Maintenance Due Date Last Done Comments Albumin/Creatinine Ratio 1963 Hepatitis C Screening 1963 Zoster Vaccines (2 of 3) 06/26/2014 05/01/2014 *SPIROMETRY ONCE FOR ASTHMA-ADULT 07/14/2022 *NEPHROLOGY REFERRAL DUE TO RESISTANT HTN 09/25/2023 COVID-19 Vaccine ( season) 2023 06/01/2023, 06/01/2023, 06/09/2022, Additional history exists Depression Screening 09/18/2024 09/18/2023 GFR 02/15/2025 02/16/2024, 01/20, 02/15/2024, Additional history exists DTaP,Tdap,and Td Vaccines (2 - Td or Tdap) 09/14/2026 09/14/2016 Pneumococcal Vaccine: 65+ Years Completed 04/17/2023, 03/09/2016, 08/23/2012 Influenza Vaccine (FLU shot) Completed 05/30/2023, 05/30/2023, 05/18/2022, Additional history exists Colonoscopy Discontinued GARDASIL-HPV IMMUNIZATION SERIES Aged Out No longer eligible based on patient's age to complete this topic Hepatitis B Aged Out No longer eligi ble based on patient's age to complete this topic MENINGOCOCCAL (MENACTRA/MENVEO) Aged Out No longer eligible based on patient's age to complete this topic documented as of this encounter Medical Devices Implanted Type Area Lay Out Former Device Identifier Shelf Expiration Date Model / Serial / Lot Connector Nerve 2mm 15mm - [id number] Implanted:Qty : 1 on 04/27/2023 by Dudley Hinojosa MD at OR [facility] Left: Face [employer] [id number] 12/24/2024 [id number] / / [id number] Alloderm 4x7 Thin 0.8-1.2 (28 Units) - [id number] - [id number] Implanted:Qty : 28 on 04/27/2023 by Dudley Hinojosa MD at OR [facility] Left: Face ABBVIE 12/18/2024 [id number] / [id number] / [id number] Sheeting Monisha 2x3in X.020in - [id number] Implanted:Qty : 1 on 04/27/2023 by Dudley Hinojosa MD at OR [facility] Left: Ear [employer] 09/25/2024-700-20 / / [id number] Sheeting Monisha 2x3 In X.005in - [id number] Implanted:Qty : 1 on 12/12/2023 by Gurvinder Garcia MD at OR [facility] Left: Ear [employer] 04/05/2026-700-05 / / [id number] Cath Pwr Picc Solo Inj 4f - [id number] Implanted:Qty : 1 on 01/26/2024 at [facility] CR BARD : [employer] [id number] 06/20/2025 [id number] / / [id number] documented as of this encounter Additional Health Concerns Infection Onset Date Last Indicated 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 01/24/2024 documented as of this encounter Advance Directives Documents on File Type Date Recorded 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
--- OUTSIDE RECORDS SUMMARY | 2024-04-25 23:49 | External Medical Summary ---
Author Name Unknown Address Unknown Organization K1F:LABORATORY [facility] - [address] [place] [address] Laboratory Report Ordering Provider Test Date Status ARTURO ESQUIVEL 02/18/2024 04:51:00 Final Observation Date Value Abnormality Reference (Units ) Status BUN 02/18/2024 04:51:00 48 Above high normal 6-20 (mg/dL) Final Creatinine 02/18/2024 04:51:00 2.5 Above high normal 0.6-1.2 (mg/dL) Final Glomerular filtration rate/1.73 sq M.predicted [Volume Rate/Area] in Serum, Plasma or Blood by Creatinine-based formula (CKD-EPI) 02/18/2024 04:51:00 26 Below low normal >=60 (mL/min) Final eGFR is calculated based on the CKD-EPI 2020 equation Sodium 02/18/2024 04:51:00 141 135-146 (m mol/L) Final Potassium 02/18/2024 04:51:00 3.7 3.5-5.1 (m mol/L) Final Cl 02/18/2024 04:51:00 107 98-107 (mm ol/L) Final CO2 02/18/2024 04:51:00 23 22-32 (mmo l/L) Final Anion gap 02/18/2024 04:51:00 11 7-15 (mmol /L) Final Glucose 02/18/2024 04:51:00 91 70-120 (mg /dL) Final Calcium 02/18/2024 04:51:00 9.3 8.4-10.2 ( mg/dL) Final Performing Location LABORATORY [facility] - [address] [place] [address]
--- OUTSIDE RECORDS SUMMARY | 2024-04-25 23:49 | External Medical Summary ---
Author Name Unknown Address Unknown Organization K1F:LABORATORY [facility] - [address] [place] [address] Laboratory Report Ordering Provider Test Date Status INNA YORK 02/17/2024 06:31:00 Final Observation Date Value Abnormality Reference (Units ) Status Vancomycin, level 02/17/2024 06:31:00 31.9 10 .0-40.0 (ug/mL) Final Performing Location LABORATORY [facility] - [address] [place] [address]
--- OUTSIDE RECORDS SUMMARY | 2024-04-25 23:49 | External Medical Summary ---
Author Name Unknown Address Unknown Organization K1F:LABORATORY [facility] - [address] [place] [address] Laboratory Report Ordering Provider Test Date Status FRITZ DORANTES 02/17/2024 06:31:00 Final Warfarin Therapy
INR: 2 .0-3.0 conventional anticoagulation
INR: 2.5- 3.5 high intensity anticoagulation Observation Date Value Abnormality Reference (Units ) Status PT 02/17/2024 06:31:00 25.0 Above high normal 11 .6-15.2 (seconds) Final INR 02/17/2024 06:31:00 2.2 Above high normal 0. 8-1.2 Final Performing Location LABORATORY [facility] - [address] [place] [address]
--- OUTSIDE RECORDS SUMMARY | 2024-04-25 23:49 | External Medical Summary ---
Author Name Unknown Address Unknown Organization K1F:LABORATORY [facility] - [address] [place] [address] Laboratory Report Ordering Provider Test Date Status LEYDI AMADOR 02/16/2024 05:26:00 Final Observation Date Value Abnormality Reference (Units ) Status Phosphate 02/16/2024 05:26:00 3.9 2.5-4.8 (m g/dL) Final Performing Location LABORATORY [facility] - [address] [address]
--- OUTSIDE RECORDS SUMMARY | 2024-04-25 23:49 | External Medical Summary ---
Author Name Unknown Address Unknown Organization K1F:LABORATORY [facility] - [address] [address] Laboratory Report Ordering Provider Test Date Status NASIR RAMSEY 02/19/2024 04:15:00 Final Complete with AM labs Observation Date Value Abnormality Reference (Units ) Status CK 02/19/2024 04:15:00 28 Below low normal 39- 308 (U/L) Final Performing Location LABORATORY [facility] - [address] [address]
--- OUTSIDE RECORDS SUMMARY | 2024-04-25 23:49 | External Medical Summary ---
Author Name Unknown Address Unknown Organization K1F:LABORATORY [facility] - [address] [address] Laboratory Report Ordering Provider Test Date Status ARTURO ESQUIVEL 02/20/2024 04:15:00 Final Observation Date Value Abnormality Reference (Units ) Status BUN 02/20/2024 04:15:00 47 Above high normal 6-20 (mg/dL) Final Creatinine 02/20/2024 04:15:00 2.7 Above high normal 0.6-1.2 (mg/dL) Final Glomerular filtration rate/1.73 sq M.predicted [Volume Rate/Area] in Serum, Plasma or Blood by Creatinine-based formula (CKD-EPI) 02/20/2024 04:15:00 24 Below low normal >=60 (mL/min) Final eGFR is calculated based on the CKD-EPI 2020 equation Sodium 02/20/2024 04:15:00 142 135-146 (m mol/L) Final Potassium 02/20/2024 04:15:00 4.0 3.5-5.1 (m mol/L) Final Cl 02/20/2024 04:15:00 108 Above high normal 98 -107 (mmol/L) Final CO2 02/20/2024 04:15:00 23 22-32 (mmo l/L) Final Anion gap 02/20/2024 04:15:00 11 7-15 (mmol /L) Final Glucose 02/20/2024 04:15:00 89 70-120 (mg /dL) Final Calcium 02/20/2024 04:15:00 9.3 8.4-10.2 ( mg/dL) Final Performing Location LABORATORY [facility] - [address] [address]
--- OUTSIDE RECORDS SUMMARY | 2024-04-25 23:50 | External Medical Summary ---
Author Name Unknown Address Unknown Organization K1F:LABORATORY [facility] - [address] [place] [address] Laboratory Report Ordering Provider Test Date Status LEYDI AMADOR 02/16/2024 05:26:00 Final Observation Date Value Abnormality Reference (Units ) Status Magnesium 02/16/2024 05:26:00 2.1 1.5-2.6 (m g/dL) Final Performing Location LABORATORY [facility] - [address] [place] [address]
--- OUTSIDE RECORDS SUMMARY | 2024-04-25 23:50 | External Medical Summary ---
Author Name Unknown Address Unknown Organization K1F:LABORATORY [facility] - [address] [facility]. [place] [address] Laboratory Report Ordering Provider Test Date Status LEYDI AMADOR 02/16/2024 05:26:00 Final Observation Date Value Abnormality Reference (Units ) Status BUN 02/16/2024 05:26:00 48 Above high normal 6-20 (mg/dL) Final Creatinine 02/16/2024 05:26:00 2.3 Above high normal 0.6-1.2 (mg/dL) Final Glomerular filtration rate/1.73 sq M.predicted [Volume Rate/Area] in Serum, Plasma or Blood by Creatinine-based formula (CKD-EPI) 02/16/2024 05:26:00 29 Below low normal >=60 (mL/min) Final eGFR is calculated based on the CKD-EPI 2020 equation Sodium 02/16/2024 05:26:00 143 135-146 (m mol/L) Final Potassium 02/16/2024 05:26:00 3.8 3.5-5.1 (m mol/L) Final Cl 02/16/2024 05:26:00 108 Above high normal 98 -107 (mmol/L) Final CO2 02/16/2024 05:26:00 20 Below low normal 22- 32 (mmol/L) Final Anion gap 02/16/2024 05:26:00 15 7-15 (mmol /L) Final Glucose 02/16/2024 05:26:00 88 70-120 (mg /dL) Final Albumin 02/16/2024 05:26:00 3.6 Below low normal 3.8 -5.0 (g/dL) Final AST (Aspartate aminotransferase) 02/16/2024 05:26:00 15 10-50 (U/L) Fin al Alk Phos 02/16/2024 05:26:00 77 35-130 (U/ L) Final Bilirubin, Total 02/16/2024 05:26:00 0.3 <=1 .2 (mg/dL) Final Calcium 02/16/2024 05:26:00 9.6 8.4-10.2 ( mg/dL) Final Protein 02/16/2024 05:26:00 6.7 6.0-8.3 (g /dL) Final ALT (Alanine aminotransferase) 02/16/2024 05:26:00 11 10-50 (U/L) Fausto lentz Performing Location LABORATORY [address] [place] [address]
--- OUTSIDE RECORDS SUMMARY | 2024-04-25 23:50 | External Medical Summary ---
Author Name Unknown Address Unknown Organization K1F:LABORATORY [facility] - [address] [address] Laboratory Report Ordering Provider Test Date Status FRITZ DORANTES 02/15/2024 14:40:00 Final Warfarin Therapy
INR: 2 .0-3.0 conventional anticoagulation
INR: 2.5- 3.5 high intensity anticoagulation Observation Date Value Abnormality Reference (Units ) Status PT 02/15/2024 14:40:00 26.6 Above high normal 11 .6-15.2 (seconds) Final INR 02/15/2024 14:40:00 2.4 Above high normal 0. 8-1.2 Final Performing Location LABORATORY [facility] - [address] [address]
--- OUTSIDE RECORDS SUMMARY | 2024-04-25 23:50 | External Medical Summary ---
Author Name Unknown Address Unknown Organization K1F:LABORATORY [facility] - [address] [address] Laboratory Report Ordering Provider Test Date Status SENG GARCIA 02/15/2024 06:35:00 Final Warfarin Therapy
INR: 2 .0-3.0 conventional anticoagulation
INR: 2.5- 3.5 high intensity anticoagulation Observation Date Value Abnormality Reference (Units ) Status PT 02/15/2024 06:35:00 24.9 Above high normal 11 .6-15.2 (seconds) Final INR 02/15/2024 06:35:00 2.2 Above high normal 0. 8-1.2 Final Performing Location LABORATORY [facility] - [address] [address]
--- OUTSIDE RECORDS SUMMARY | 2024-04-25 23:50 | External Medical Summary ---
Author Name Unknown Address Unknown Organization K1F:LABORATORY [facility] - [address] [address] Laboratory Report Ordering Provider Test Date Status MARQUITA CAMPOS 02/16/2024 05:26:00 Final Observation Date Value Abnormality Reference (Units ) Status Vancomycin, level 02/16/2024 05:26:00 38.2 10 .0-40.0 (ug/mL) Final Performing Location LABORATORY [facility] - [address] [address]
--- OUTSIDE RECORDS SUMMARY | 2024-04-25 23:50 | External Medical Summary | Summary of Care ---
Author Name Unknown Organization [facility] Address [address] [place] [address] Phone [phone] Care Team Providers Care Photoengraving Printer Name Role Phone Jad Boone MD Primary Care Provider Reason for Visit * Reason Comments Dosage Adjustment Via Phone (anticoag Cl inic) Encounter Details Date Type Department Care Team (Late st Contact Info) Description 02/14/2024 3:00 PM EDT Pharmacy Infectious Disease, [place] [address] [id number] Agc5, Pharmacist Infectious Disease [address] [place] [address] Encounter for therapeutic drug level monitoring*; MRSA (methicillin resistant Staphylococcus aureus) infection Allergies Active Allergy Reactions Criticality Noted Date Comments Bee Venom Hives High 03/14/2017 documented as of this encounter (statuses as of 02/14/2024) Medications Medication Sig Dispensed Refills Start Date End Date Status Omeprazole 20 MG Oral Capsule Delayed Release (PriLOSEC) Take 1 Capsule by mouth in the morning. 90 Capsule 1 11/15/2022 Active Vitamin D3 1.25 MG (58740 UT) Oral Capsule Take 1 Capsule by mouth once a week. 12 Capsule 3 01/30/2023 Active Additional Information Patient taking differently:50,000 Units Oral QWEEK,Every Monday, Reported on 01/18/2024 Atorvastatin Calcium 20 MG Oral Tablet (Lipitor)Indicatio ns:Coronary artery disease involving white earth coronary artery of [place] heart without angina pectoris TAKE 1 TABLET, BY MOUTH, IN THE MORNING. 90 Tablet 1 03/04/2023 Active Acetaminophen 325 MG Oral Tablet (Tylenol) Take 2 Tablets by mouth every 6 hours as needed for Pain, Mild. 30 Tablet 04/03/2023 Active Multivitamin Adult Oral Tablet Take by [...] as needed for Shortness of Breath. Active Lisinopril 10 MG Oral Tablet (Prinivil)Indicati ons:Chronic heart failure with preserved ejection fraction (HFpEF) ([facility]) Take 1 Tablet by mouth in the morning. 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 103.317 mL 12/22/2023 Active Additional Information Patient not taking.Reported on 02/05/2024 oxyCODONE HCl 5 MG Oral Capsule (Oxy IR) Take 1 Capsule by mouth every 6 hours as needed. Active amLODIPine Besylate 2.5 MG Oral Tablet (Norvasc) Take 1 Tablet by mouth in the morning. 30 Tablet 01/03/2024 Active Magnesium Hydroxide 400 MG/5ML Oral Suspension [...] every 12 hours. 473 mL 01/26/2024 Active vancomycin IV IV (AMBULATORY) Administer 1,000 mg intravenously in the morning and 1,000 mg in the evening. 80 g 01/27/2024 Active cefepime IV IJ (AMBULATORY) Administer 2 g intravenously in the morning and 2 g at noon and 2 g before bedtime. 240 g 01/27/2024 Active Bisacodyl 10 MG Rectal Suppository (Bisacodyl [...] Dulcolax is ineffective* (bowel protocol) 02/05/2024 Active Furosemide 40 MG Oral Tablet (Lasix) Take 1 Tablet by mouth in the morning. 02/05/2024 Active Warfarin Sodium 5 MG Oral Tablet (Coumadin)Indicati ons:PAF (paroxysmal atrial fibrillation) ([facility]) Take 1 tablet by mouth on Monday and 1.5 tablet by mouth S,S,M,T,W,TH 02/05/2024 Active documented as of this encounter (statuses as of 02/14/2024) Active Problems Problem Noted Date Diagnosed Date Surgical site infection 01/28/2024 Status post incision [...] earth coronary artery without angina pectoris 01/07/2015 emt intermediate current use of anticoagulant therapy 0 05/01/2014 Overview: ICD-10 update of inactive term Heart failure, systolic, due to CAD 08/28/2012 Overview: ECHO 2011 - Segmental wall abnormality, severe hypokinesis of anterior septum, anterior wall, apex, distal inferior septum, distal inferior wall, and distal posterior wall EF 33% Mass of left parotid gland documented as of this encounter (statuses as of 02/14/2024) Resolved Problems Problem Noted Date Diagnosed Date [...] as of this encounter (statuses as of 02/14/2024) Immunizations Name Administration Dates Next Due COVID-19 mRNA, LNP-s, No Pre serve, 2-Dose Series (Five Below) 11/26/2020,11/05/2020 Pneumococcal Conjugate Vacc, 13 Valent (Prevnar) [...] No 10/10/2023 Does the household have a [facility] source of income? (Household - [...] this encounter Progress Notes * Carla Gray, [facility] - 02/14/2024 8:19 AM EDT [facility] OUTPATIENT PHARMACOKINETIC CONSULT [address] [place] [address] Name: Stephen Varela Date/Time: 02/14/2024 8:19 AM Patient on Outpatient Parenteral Antimicrobial Therapy with [facility] Pharmacist under Collaborative Practice Agreement with [facility] Infectious Disease physician Dr. Laura Arambula. Patient resides at [facility] Medication(s) being managed: Vancomycin IV - [...] Ordered Every 2 weeks: CRP Phone Numbers: [facility] - p) [phone] Lab information: Labs can be processed any day at [facility] Sent to [facility] to be processed Lab information: Lab Results [...] Analysis of the most recent level(s) using [employer] gives the following patient-specific pharmacokinetic parameters: CL: [...] Discussed plan of care with KATLYN Bailey mail delivery supervisor HOLD further vancomycin doses and recheck labs on Monday02/16/24 BMP, CBC w/diff, vancomycin random ID [facility] will review Monday02/16/24 afternoon after labs result Further vancomycin dosing dependant on repeat labs Contact info for questions/concerns: [facility] Infectious Disease [facility] Pharmacist at [phone] Carla Gray duncan [facility] Clinical Pharmacist [facility] Infectious Disease [facility] 02/14/2024, 8:19 AM documented in this encounter Plan of Treatment Upcoming Encounters Date Type Department Care Team (Late st Contact Info) Description 02/16/2024 10:00 AM EDT [facility] [address] [place] [address] Agc5, Pharmacist Infectious Disease [address] [place] [address] 02/16/2024 10:45 AM EDT Office Visit Otolaryngology/Head & Neck/Facial Plastic Surgery [address] [facility] [place] [address] Gurvinder Garcia MD [address] [place] [address] 02/19/2024 5:20 PM EDT Anticoagulation Centralized Clinical Pharmacy Services, Sandra Gómez [address] [place] [address] [place] [address] [facility] 58 60 [facility] [place] [address] 03/18/2024 9:40 AM EDT Office Visit Wound Care, [facility] [address] [place] [address] Hermes Noble MD [address] [place] [address] 04/02/2024 9:40 AM EDT Office Visit Infectious Disease [facility] [address] [place] [phone] Rio Chun, DO [address] [place] [address] 06/06/2024 9:30 AM EDT Office Visit Cardiology[address] [address] Yas Mckinnon CRNP [address] [place] [address] 07/23/2024 9:30 AM EST Office Visit Radiation Oncology, [facility] [address] [place] [address] Eros Faust MD [address] [place] [address] Scheduled Orders Name Type Priority Associated Diagnoses [...] DUE TO RESISTANT HTN 09/25/2023 COVID-19 Vaccine (4 - 2022- season) 2023 06/01/2023, 11/26/2020, 11/05/2020 Depression Screening 09/18/2024 09/18/2023 GFR 02/11/2025 02/12/2024, 01/20, 02/05/2024, Additional history exists DTaP,Tdap,and Td Vaccines (2 - Td or Tdap) 09/14/2026 09/14/2016 Pneumococcal Vaccine: 65+ Years Completed 03/09/2016, 08/23/2012 Influenza Vaccine (FLU shot) Completed [...] this encounter Medical Devices Implanted Type Area Wan Support Specialist Device Identifier Shelf Expiration Date Model / Serial / Lot Connector Nerve 2mm 15mm - [id number] Implanted:Qty : 1 on 04/27/2023 by Dudley Hinojosa MD at OR [facility] Left: Face [employer] [id number] 12/24/2024 [id number] / / [id number] Alloderm 4x7 Thin 0.8-1.2 (28 Units) - [id number] - [id number] Implanted:Qty : 28 on 04/27/2023 by Dudley Hinojosa MD at OR [facility] Left: Face ABBVIE 12/18/2024 [id number] / [id number] / [id number] Sheeting Monisha 2x3in X.020in - [id number] Implanted:Qty : 1 on 04/27/2023 by Dudley Hinojosa MD at OR [facility] Left: Ear [employer] 09/25/2024700- / / [id number] Sheeting Monisha 2x3 In X.005in - [id number] Implanted:Qty : 1 on 12/12/2023 by Gurvinder Garcia MD at [facility] Left: Ear [employer] 04/05/2026-700- / / [id number] Cath Pwr Picc Solo Inj 4f - [id number] Implanted:Qty : 1 on 01/26/2024 at [facility] CR BARD : [employer]ESS SYSTEM[employer] [id number] 06/20/2025 [id number] / / [id number] documented as of this encounter Visit Diagnoses [...] Documents on File Type Date Recorded Patient Superintendent Pier Expl anation POLST 04/26/2023 [place] [facility] FOR LIFE-SUSTAINING TREATMENT * Full Code (Latest Code Status on File) Date Activated Date Inactivated Comments 01/24/2024 3:08 [...] Full Code Date Activated Date Inactivated Comments 03/26/2023 8:39 PM 03/27/2023 12:22 AM This order re flects the patients wishes and were consensually agreed upon. Question Answer Comments Discussion of Advance Directives occurred with: Patient Healthcare Agents on File Name Relationship Healthcare Agent [facility] Communication Brody Avery Adult Child Power of Taping Machine Operator Care Teams Photoengraving Printer Relationship Specialty Start Date End Date Jad Boone MD [address] [address] [place] [address] PCP - General Family Medicine 09/20/23 documented as of this encounter
--- OUTSIDE RECORDS SUMMARY | 2024-04-25 23:50 | External Medical Summary ---
Author Name Unknown Address Unknown Organization K1F:LABORATORY [facility] - [address] [facility]. [place] [address] Laboratory Report Ordering Provider Test Date Status SENG GARCIA 02/15/2024 06:35:00 Final Observation Date Value Abnormality Reference (Units ) Status SYNC LEUKOCYTES IN BLOOD BY AUTOMATED COUNT 02/15/2024 06:35:00 8.75 4.00-10.80 (K/uL) Final Segs 02/15/2024 06:35:00 71.1 40.0-75.0 (%) Final Lymphs % 02/15/2024 06:35:00 9.0 Below low normal 18.0-42.0 (%) Final Monos 02/15/2024 06:35:00 10.1 1.0-11.0 (%) Final Eosinophils 02/15/2024 06:35:00 8.8 Above high normal 0.0-6.0 (%) Final Basos 02/15/2024 06:35:00 0.7 0.0-2.0 (%) Final Immature Granulocyte, Percent 02/15/2024 06:35:00 0.3 0.0-2.0 (%) Final Absolute Segs 02/15/2024 06:35:00 6.22 1.80-7.70 (K/uL) Final Lymphs, absolute 02/15/2024 06:35:00 0.79 Below low normal 1.00-4.80 (K/ul) Final Monos, Abs 02/15/2024 06:35:00 0.88 0.00-1.10 (K/uL) Final Eos, Abs 02/15/2024 06:35:00 0.77 Above high normal 0.00-0.70 (K/uL) Final Basos, Abs 02/15/2024 06:35:00 0.06 0.00-0.20 (K/uL) Final Immature Granulocytes, Number 02/15/2024 06:35:00 0.03 0.00-0.20 (K/uL) Final Performing Location LABORATORY [facility] - [facility] [address] [place] [address]
--- OUTSIDE RECORDS SUMMARY | 2024-04-25 23:50 | External Medical Summary ---
Author Name Unknown Address Unknown Organization K01:LABORATORY [facility] - [address] [facility] [address] [place] [address] Laboratory Report Ordering Provider Test Date Status LEYDI AMADOR 02/15/2024 15:14:37 Final Observation Date Value Abnormality Reference (Units ) Status Methicillin resistant Staphylococcus aureus (MRSA) DNA [Presence] in Nose by TORREY with probe detection 02/15/2024 15:14:37 Negative Negative Final No Methicillin resistant Sta phylococcus aureus detected by PCR (amplified probe). Performing Location LABORATORY [facility] - [address] [place] [id number]
--- OUTSIDE RECORDS SUMMARY | 2024-04-25 23:50 | External Medical Summary | Summary of Care ---
Author Name Unknown Organization [facility] Address [address] [place] [address] Phone [phone] Care Team Providers Care Filler Sifter Machine Name Role Phone Jad Boone MD Primary Care Provider Encounter Details Date Type Department Care Team (Late st Contact Info) Description 02/15/2024 Documentation Radiology, [address] [address] Ryland Mcmahan, RT Allergies Active Allergy Reactions Criticality Noted Date Comments Bee Venom Hives High 03/14/2017 documented as of this encounter (statuses as of 02/15/2024) Medications Medication Sig Dispensed Refills Start Date End Date Status Omeprazole 20 MG Oral Capsule Delayed Release (PriLOSEC) Take 1 Capsule by mouth in the morning. 90 Capsule 1 3 Suspended Additional Information Vitamin D3 1.25 MG (57901 UT) Oral Capsule Take 1 Capsule by mouth once a week. 12 Capsule 3 3 Suspended Additional Information Patient taking differently:50,000 Units Oral QWEEK,Every Monday, Reported on 01/18/2024 Atorvastatin Calcium 20 MG Oral Tablet (Lipitor)Indicati ons:Coronary artery disease involving [place] coronary artery of [place] heart without angina pectoris TAKE 1 TABLET, [...] XL)Indications:Ch ronic diastolic CHF (congestive heart failure) ([facility]) Take 1 Tablet by mouth in the [...] heart failure with preserved ejection fraction (HFpEF) ([facility]) Take 1 Tablet by mouth in the [...] as of this encounter (statuses as of 02/15/2024) Active Problems Problem Noted Date Diagnosed Date [...] fibrillation) 10/18/2018 Coronary artery disease invo lving [place] coronary artery without angina pectoris 01/07/2015 prison current use of anticoagulant therapy 0 05/01/2014 Overview: ICD-10 update of inactive term Heart failure, systolic, due to CAD 08/28/2012 Overview: ECHO 2011 - Segmental wall abnormality, severe hypokinesis of anterior septum, anterior wall, apex, distal inferior septum, distal inferior wall, and distal posterior wall EF 33% Mass of left parotid gland documented as of this encounter (statuses as of 02/15/2024) Resolved Problems Problem Noted Date Diagnosed Date [...] as of this encounter (statuses as of 02/15/2024) Immunizations Name Administration Dates Next Due COVID-19 mRNA, LNP-s, No Pre serve, 2-Dose Series ([employer]) 11/26/2020,11/05/2020 Pneumococcal Conjugate Vacc, 13 Valent (Prevnar) [...] as of this encounter Progress Notes * Ryland Mcmahan RT - 02/15/2024 7:39 PM EDT MRI brain attempted but unable to position head back into head coil. Floor notified and to let provider know documented in this encounter Plan of Treatment Upcoming Encounters Date Type Department Care Team (Late st Contact Info) Description 02/19/2024 5:20 PM EDT Anticoagulation Centralized Clinical Pharmacy Services, Sandra [address] [place] [address] [facility] 58 60 [facility] [place] [address] 03/18/2024 9:40 AM EDT Office Visit Wound Care, [facility] [address] [place] [phone] Hermes Noble MD [address] [place] [address] 04/02/2024 9:40 AM EDT Office Visit Infectious Disease [facility] [address] [address] Rio Chun, DO [address] [place] [address] 06/06/2024 9:30 AM EDT Office Visit Cardiology, [place] [address] [place] [address] Yas Mckinnon CRNP [address] [place], [place] [phone] 07/23/2024 9:30 AM EST Office Visit Radiation Oncology, [facility] [address] [place] [address] Eros Faust MD [address] [place] [address] Health Maintenance Due Date Last Done Comments Albumin/Creatinine Ratio 1963 Hepatitis C Screening 1963 Zoster Vaccines (2 of 3) 06/26/2014 05/01/2014 *SPIROMETRY ONCE FOR ASTHMA-ADULT 07/14/2022 *NEPHROLOGY REFERRAL DUE TO RESISTANT HTN 09/25/2023 COVID-19 Vaccine (2022- season) 2023 06/01/2023, 06/01/2023, 06/09/2022, Additional history exists Depression Screening 09/18/2024 09/18/2023 GFR 02/14/2025 02/15/2024, 01/20, 02/12/2024, Additional history exists DTaP,Tdap,and Td Vaccines (2 [...] this encounter Medical Devices Implanted Type Area Property Worker Device Identifier Shelf Expiration Date Model / Serial / Lot Connector Nerve 2mm 15mm - [id number] Implanted:Qty : 1 on 04/27/2023 by Dudley Hinojosa MD at OR [facility] Left: Face [employer] [id number] 12/24/2024 [id number] / / [id number] Alloderm 4x7 Thin 0.8-1.2 (28 Units) - [id number] - [id number] Implanted:Qty : 28 on 04/27/2023 by Dudley Hinojosa MD at OR [facility] Left: Face ABBVIE 12/18/2024 [id number] / [id number] / [id number] Sheeting Monisha 2x3in X.020in - [id number] Implanted:Qty : 1 on 04/27/2023 by Dudley Hinojosa MD at OR [facility] Left: Ear [employer]IED [employer] 09/25/2024 23-700-20 / / [id number] Sheeting Monisha 2x3 In X.005in - [id number] Implanted:Qty : 1 on 12/12/2023 by Gurvinder Garcia MD at OR [facility] Left: Ear [employer]IED BI[employer] 04/05/2026 23-700-05 / / [id number] Cath Pwr Picc Solo Inj 4f - [id number] Implanted:Qty : 1 on 01/26/2024 at [facility] CR BARD : ACCESS SYSTEMS [id number] 06/20/2025 [id number] / / [id number] documented as of this encounter Additional Health Concerns Infection Onset Date Last Indicated 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 01/24/2024 documented as of this encounter Advance Directives Documents on File Type Date Recorded 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
--- OUTSIDE RECORDS SUMMARY | 2024-04-25 23:50 | External Medical Summary ---
Author Name Unknown Address Unknown Organization K1F:LABORATORY [facility] - [address] [place] [address] Laboratory Report Ordering Provider Test Date Status SENG GARCIA 02/12/2024 06:14:00 Final Observation Date Value Abnormality Reference (Units ) Status CRP, low-sensitivity 02/12/2024 06:14:00 4 <=5 (mg/L) Final Performing Location LABORATORY [facility] - [address] [place] [address]
--- OUTSIDE RECORDS SUMMARY | 2024-04-25 23:50 | External Medical Summary ---
Author Name Unknown Address Unknown Organization K1F:LABORATORY [facility] - [address] [place] [address] Laboratory Report Ordering Provider Test Date Status SENG GARCIA 02/12/2024 06:14:00 Final Observation Date Value Abnormality Reference (Units ) Status Creatinine 02/12/2024 06:14:00 1.6 Above high normal 0.6-1.2 (mg/dL) Final Glomerular filtration rate/1.73 sq M.predicted [Volume Rate/Area] in Serum, Plasma or Blood by Creatinine-based formula (CKD-EPI) 02/12/2024 06:14:00 43 Below low normal >=60 (mL/min) Final eGFR is calculated based on the CKD-EPI 2020 equation Performing Location LABORATORY [facility] - [address] [place] [address]
--- OUTSIDE RECORDS SUMMARY | 2024-04-25 23:50 | External Medical Summary ---
Author Name Unknown Address Unknown Organization K1F:LABORATORY [facility] - [address] [facility]. [place] [address] Laboratory Report Ordering Provider Test Date Status SENG GARCIA 02/15/2024 06:35:00 Final Observation Date Value Abnormality Reference (Units ) Status BUN 02/15/2024 06:35:00 49 Above high normal 6-20 (mg/dL) Final Creatinine 02/15/2024 06:35:00 2.3 Above high normal 0.6-1.2 (mg/dL) Final Glomerular filtration rate/1.73 sq M.predicted [Volume Rate/Area] in Serum, Plasma or Blood by Creatinine-based formula (CKD-EPI) 02/15/2024 06:35:00 28 Below low normal >=60 (mL/min) Final eGFR is calculated based on the CKD-EPI 2020 equation Sodium 02/15/2024 06:35:00 143 135-146 (m mol/L) Final Potassium 02/15/2024 06:35:00 4.3 3.5-5.1 (m mol/L) Final Cl 02/15/2024 06:35:00 105 98-107 (mm ol/L) Final CO2 02/15/2024 06:35:00 21 Below low normal 22- 32 (mmol/L) Final Anion gap 02/15/2024 06:35:00 17 Above high normal 7- 15 (mmol/L) Final Glucose 02/15/2024 06:35:00 93 70-120 (mg /dL) Final Albumin 02/15/2024 06:35:00 4.1 3.8-5.0 (g /dL) Final AST (Aspartate aminotransferase) 02/15/2024 06:35:00 20 10-50 (U/L) Fin al Alk Phos 02/15/2024 06:35:00 90 35-130 (U/ L) Final Bilirubin, Total 02/15/2024 06:35:00 0.3 <=1 .2 (mg/dL) Final Calcium 02/15/2024 06:35:00 9.9 8.4-10.2 ( mg/dL) Final Protein 02/15/2024 06:35:00 7.1 6.0-8.3 (g /dL) Final ALT (Alanine aminotransferase) 02/15/2024 06:35:00 13 10-50 (U/L) Fausto lentz Performing Location LABORATORY [address] [place] [address]
--- OUTSIDE RECORDS SUMMARY | 2024-04-25 23:50 | External Medical Summary ---
Author Name Unknown Address Unknown Organization K01:LABORATORY [facility] - [address] [facility] [address] Laboratory Report Ordering Provider Test Date Status MARJORIEWHITE 02/16/2024 05:26:00 Final Observation Date Value Abnormality Reference (Units ) Status Triglyceride 02/16/2024 05:26:00 85 <=174 ( mg/dL) Final Triglyceride Reference Range s (mg/dL):
<150 Acceptable
150-174 Borderline high
175-499 High
>=500 Very high Cholesterol 02/16/2024 05:26:00 90 <200 (mg /dL) Final Total Cholesterol Reference Ranges (mg/dL):
<200 Desirable
200-239 Borderline high
>=240 High HDL 02/16/2024 05:26:00 27 Below low normal >39 (mg/dL) Final HDL Cholesterol Reference Ra nges (mg/dL):
>=60 High (Desirable)
<50 Low (Undesirable) For Females
<40 Low (Undesirable) For Males NON-HDL CHOLESTEROL 02/16/2024 05:26:00 63 <=159 (mg/dL) Final Non-HDL Cholesterol Referenc e Range (mg/dL):
<100 Target level for high risk ASCVD patient
<130 Optimal for general population
130-159 Near optimal for general population
160-189 Borderline High
190-219 High
>=220 Very High LDL, (calculated) 02/16/2024 05:26:00 46 <= 129 (mg/dL) Final LDL Cholesterol Reference Ra nges (mg/dL):
<70 Target level for high risk ASCVD patient
<100 Optimal for general population
100-129 Near optimal for general population
130-159 Borderline high
160-189 High
>=190 Very high Performing Location LABORATORY [facility] - [address] [facility] [address]
--- OUTSIDE RECORDS SUMMARY | 2024-04-25 23:50 | External Medical Summary ---
Author Name Unknown Address Unknown Organization K1F:LABORATORY [facility] - [address] [place] [address] Laboratory Report Ordering Provider Test Date Status SENG GARCIA 02/12/2024 06:14:00 Final Observation Date Value Abnormality Reference (Units ) Status Vancomycin, level 02/12/2024 06:14:00 24.1 10 .0-40.0 (ug/mL) Final Performing Location LABORATORY [facility] - [address] [place] [address]
--- OUTSIDE RECORDS SUMMARY | 2024-04-25 23:50 | External Medical Summary ---
Author Name Unknown Address Unknown Organization K1F:LABORATORY [facility] - [address] [place] [address] Laboratory Report Ordering Provider Test Date Status RADHAKEZIALUISANA 02/15/2024 06:35:00 Final Observation Date Value Abnormality Reference (Units ) Status CRP, low-sensitivity 02/15/2024 06:35:00 7 Above high normal <=5 (mg/L) Final Performing Location LABORATORY [facility] - [address] [place] [address]
--- OUTSIDE RECORDS SUMMARY | 2024-04-25 23:50 | External Medical Summary ---
Author Name Unknown Address Unknown Organization K1F:LABORATORY [facility] - [address] [place] [address] Laboratory Report Ordering Provider Test Date Status FRITZ DORANTES 02/16/2024 05:26:00 Final Warfarin Therapy
INR: 2 .0-3.0 conventional anticoagulation
INR: 2.5- 3.5 high intensity anticoagulation Observation Date Value Abnormality Reference (Units ) Status PT 02/16/2024 05:26:00 26.5 Above high normal 11 .6-15.2 (seconds) Final INR 02/16/2024 05:26:00 2.4 Above high normal 0. 8-1.2 Final Performing Location LABORATORY [facility] - [address] [place] [address]
--- OUTSIDE RECORDS SUMMARY | 2024-04-25 23:50 | External Medical Summary ---
Author Name Unknown Address Unknown Organization K1F:LABORATORY [facility] - [address] [address] Laboratory Report Ordering Provider Test Date Status LEYDI AMADOR 02/15/2024 11:03:00 Final Observation Date Value Abnormality Reference (Units ) Status CRP, low-sensitivity 02/15/2024 11:03:00 6 Above high normal <=5 (mg/L) Final Performing Location LABORATORY [facility] - [address] [address]
--- OUTSIDE RECORDS SUMMARY | 2024-04-25 23:50 | External Medical Summary | Summary of Care ---
Author Name Unknown Organization [facility] Address [address] [place] [facility] [place] [address] Phone [phone] Care Team Providers Care Bus Washer Name Role Phone Jad Boone MD Primary Care Provider Reason for Visit * Reason Comments Dosage Adjustment Via Phone (anticoag Cl inic) Encounter Details Date Type Department Care Team (Latest Contact Info) Description 02/12/2024 5:20 PM EDT Anticoagulation Centralized Clinical Pharmacy Services, Sandra [address] [place] [address] [facility] 58 60 [facility] [place] [address] PAF (paroxysmal atrial fibrillation) ([facility])* Allergies Active Allergy Reactions Criticality Noted Date Comments Bee Venom Hives High 03/14/2017 documented as of this encounter (statuses as of 02/12/2024) Medications Medication Sig Dispensed Refills Start Date End Date Status Omeprazole 20 MG Oral Capsule Delayed Release (PriLOSEC) Take 1 Capsule by mouth in the morning. 90 Capsule 1 11/15/2022 Active Vitamin D3 1.25 MG (43033 UT) Oral Capsule Take 1 Capsule by mouth once a week. 12 Capsule 3 01/30/2023 Active Additional Information Patient taking differently:50,000 Units Oral QWEEK,Every Monday, Reported on 01/18/2024 Atorvastatin Calcium 20 MG Oral Tablet (Lipitor)Indicatio ns:Coronary artery disease involving [place] coronary artery of [place] heart without angina pectoris TAKE 1 TABLET, [...] onic diastolic CHF (congestive heart failure) ([facility]) Take 1 Tablet by mouth in the [...] failure with preserved ejection fraction (HFpEF) ([facility]) Take 1 Tablet by mouth in the [...] Oral Tablet (Coumadin)Indicati ons:PAF (paroxysmal atrial fibrillation) ([facility]) Take 1 tablet by mouth on Monday and 1.5 tablet by mouth S,S,M,T,W,TH 02/05/2024 Active documented as of this encounter (statuses as of 02/12/2024) Active Problems Problem Noted Date Diagnosed Date [...] fibrillation) 10/18/2018 Coronary artery disease invo lving [place] coronary artery without angina pectoris 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 0 05/01/2014 Overview: ICD-10 update of inactive term Heart failure, systolic, due to CAD 08/28/2012 Overview: ECHO 2011 - Segmental wall abnormality, severe hypokinesis of anterior septum, anterior wall, apex, distal inferior septum, distal inferior wall, and distal posterior wall EF 33% Mass of left parotid gland documented as of this encounter (statuses as of 02/12/2024) Resolved Problems Problem Noted Date Diagnosed Date [...] as of this encounter (statuses as of 02/12/2024) Immunizations Name Administration Dates Next Due COVID-19 mRNA, LNP-s, No Pre serve, 2-Dose Series (Anyone Home) 11/26/2020,11/05/2020 Pneumococcal Conjugate Vacc, 13 Valent (Prevnar) [...] money to get more. Never true 10/10/2023 Sex and Gender Information Value Date Recorded [...] as of this encounter Progress Notes * Geena Andrade, shingle inspector - 02/12/2024 4:07 PM EDT Contacts Type Contact Phone/Fax 02/12/2024 04:03 PM EDT Phone (Outgoing) Stephen Varela (Self) [phone] (M) Subjective Patient Findings Negatives: Signs/symptoms of thrombosis, Signs/symptoms [...] communicated as noted by Pharmacist: Yes ARMANDO CASTILLO 02/12/2024, 4:07 PM * Carla Heaton RPh - 02/12/2024 12:28 PM EDT Images from the original note were not included. Coumadin Clinic (region specific) Objective Current Warfarin Dose As of 02/12/2024 Warfarin maintenance plan: 10 mg (1 mg x 10) every Mon; 7.5 mg (1 mg x 7.5) all other days INR Result As of 02/12/2024 INR goal: 2.0-3.0 INR used for dosin.7 (02/08/2024) Assessment & Plan Warfarin Plan As of 02/12/2024 Full warfarin instructions: 10 mg every Mon, Wed; 7.5 mg all other days Next INR check: 02/19/2024 Repeat PT/INR in 1 week(s) Weekly dose: increased Additional Dosing Information: Description Call patient while at [facility] AND fax Facility at [phone] Cefepime and Vanco until 03/07/24 (getting weekly labs) pt started multivitamin around beginning of October Tech to contact patient with dose instructions as noted. Carla Heaton RPh 02/12/2024, 12:30 PM documented in this encounter Plan of Treatment Upcoming Encounters Date Type Department Care Team (Late st Contact Info) Description 02/16/2024 10:45 AM EDT Office Visit Otolaryngology/Head & Neck/Facial Plastic Surgery [address] [place] [address] Gurvinder Garcia MD [address] [place] [address] 02/19/2024 5:20 PM EDT Anticoagulation Centralized Clinical Pharmacy Services, [place] [address] [address] [place] [address] [facility] 58 60 [facility] [place] [address] 03/18/2024 9:40 AM EDT Office Visit Wound Care, [facility] [address] [place] [address] Hermes Noble MD 27 [facility] [address] [place] [address] 04/02/2024 9:40 AM EDT Office Visit Infectious Disease [facility] [address] [place] [id number] Rio Chun, DO [address] [place] [address] 06/06/2024 9:30 AM EDT Office Visit Cardiology, [address] [address] Yas Mckinnon CRNP [address] [place], [place] [id number] 07/23/2024 9:30 AM EST Office Visit Radiation Oncology, [facility] [address] [place] [address] Eros Faust MD [address] [place] [address] Health Maintenance Due Date Last Done Comments Albumin/Creatinine Ratio 1963 Hepatitis C Screening 1963 Zoster Vaccines (2 of 3) 06/26/2014 05/01/2014 *SPIROMETRY ONCE FOR ASTHMA-ADULT 07/14/2022 *NEPHROLOGY REFERRAL DUE TO RESISTANT HTN 09/25/2023 COVID-19 Vaccine ( season) 2023 06/01/2023, 11/26/2020, 11/05/2020 Depression Screening 09/18/2024 09/18/2023 GFR 02/07/2025 02/08/2024, 01/19, 02/01/2024, Additional history exists DTaP,Tdap,and Td Vaccines (2 [...] this encounter Medical Devices Implanted Type Area Technician Biological Health Device Identifier Shelf Expiration Date Model / Serial / Lot Connector Nerve 2mm 15mm - [id number] Implanted:Qty : 1 on 04/27/2023 by Dudley Hinojosa MD at OR [facility] [place] Left: Face [employer] [id number] 12/24/2024 [id number] / / [id number] Alloderm 4x7 Thin 0.8-1.2 (28 Units) - [id number] - [id number] Implanted:Qty : 28 on 04/27/2023 by Dudley Hinojosa MD at OR [facility] [place] Left: Face ABBVIE 12/18/2024 [id number] / [id number] / [id number] Sheeting Monisha 2x3in X.020in - [id number] Implanted:Qty : 1 on 04/27/2023 by Dudley Hinojosa MD at OR [facility] [place] Left: Ear [employer] 09/25/2024 / [id number] Sheeting Monisha 2x3 In X.005in - [id number] Implanted:Qty : 1 on 12/12/2023 by Gurvinder Garcia MD at OR [facility] [place] Left: Ear [employer] 04/05/2026 / [id number] Cath Pwr Picc Solo Inj 4f - [id number] Implanted:Qty : 1 on 01/26/2024 at [facility] CR BARD : ACCESS SYSTEM[employer] [id number] 06/20/2025 [id number] / / [id number] documented as of this encounter Visit Diagnoses Diagnosis PAF (paroxysmal atrial fibrillation) (HCC)- Primary Atrial fibrillation 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 [address] [place] [address] PCP - General Family Medicine 09/20/23 documented as of this encounter
--- OUTSIDE RECORDS SUMMARY | 2024-04-25 23:50 | External Medical Summary | Summary of Care ---
Author Name Unknown Organization [facility] Address [address] [place] [facility] [place] [address] Phone [phone] Care Team Providers Care Wood Cabinet Finisher Name Role Phone Jad Boone MD Primary Care Provider Reason for Visit * Reason Comments Dosage Adjustment Via Phone (anticoag Cl inic) Encounter Details Date Type Department Care Team (Latest Contact Info) Description 02/12/2024 5:20 PM EDT Anticoagulation Centralized Clinical Pharmacy Services, Sandra [address] [place] [address] [facility] 58 60 [facility] [place] [address] PAF (paroxysmal atrial fibrillation) ([facility] [...] 1 11/15/2022 Active Vitamin D3 1.25 MG (70609 UT) Oral Capsule Take 1 Capsule by mouth once a week. 12 Capsule 3 01/30/2023 Active Additional Information Patient taking differently:50,000 Units Oral QWEEK,Every Monday, Reported on 01/18/2024 Atorvastatin Calcium 20 MG Oral Tablet (Lipitor)Indicatio ns:Coronary artery disease involving [place] coronary artery of [place] heart without angina pectoris TAKE 1 TABLET, [...] heart failure with preserved ejection fraction (HFpEF) ([facility]) Take 1 [...] Oral Tablet (Coumadin)Indicati ons:PAF (paroxysmal atrial fibrillation) ([facility]) Take 1 tablet by mouth [...] fibrillation) 10/18/2018 Coronary artery disease invo lving [place] coronary artery without angina pectoris 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 (Household - for [...] of this encounter Progress Notes * Geena Andrade PHARM Tech - 02/12/2024 4:07 PM EDT Contacts Type Contact Phone/Fax 02/12/2024 04:03 PM EDT Phone (Outgoing) Stephen Varela (Self) [phone] (M) Subjective Patient Findings Negatives: Signs/symptoms of [...] CASTILLO 02/12/2024, 4:07 PM * Carla Heaton [facility] - 02/12/2024 12:28 PM EDT Images from [...] Dosing Information: Description Call patient while at [facility] AND fax Facility at [phone] Cefepime and Vanco until 03/07/24 (getting weekly labs) pt started multivitamin around beginning october Tech to contact patient with dose instructions as noted. Carla Heaton RPh 02/12/2024, 12:30 PM documented in this encounter Plan of Treatment Upcoming Encounters Date Type Department Care Team (Late st Contact Info) Description 02/16/2024 10:45 AM EDT Office Visit Otolaryngology/Head & Neck/Facial Plastic Surgery [address] [facility] [place] [address] Gurvinder Garcia MD [address] [facility] [place] [address] 02/19/2024 5:20 PM EDT Anticoagulation Centralized Clinical Pharmacy Services, Sandra [address] [place] [address] [facility] 58 60 [facility] [place] [address] 03/18/2024 9:40 AM EDT Office Visit Wound Care, [facility] [address] [address] Hermes Noble MD 27 [facility] [address] [place] [address] 04/02/2024 9:40 AM EDT Office Visit Infectious Disease [facility] [address] [place] [phone] Rio Chun, DO [address] [place] [address] 06/06/2024 9:30 AM EDT Office Visit Cardiology, [place] [address] [place] [address] Yas Mckinnon CRNP [address] [place] [address] 07/23/2024 9:30 AM EST Office Visit Radiation Oncology, [facility] [address] [place] [address] Eros Faust MD [address] [place] [address] Health Maintenance Due Date Last Done Comments [...] this encounter Medical Devices Implanted Type Area Bulk Plant Operator Device Identifier Shelf Expiration Date Model / Serial / Lot Connector Nerve 2mm 15mm - [id number] Implanted:Qty : 1 on 04/27/2023 by Dudley Hinojosa MD at OR [facility] Left: Face [employer] [id number] 12/24/2024 [id number] / / [id number] Alloderm 4x7 Thin 0.8-1.2 (28 Units) - [id number] - [id number] Implanted:Qty : 28 on 04/27/2023 by Dudley Hinojosa MD at OR [facility] Left: Face ABBVIE 12/18/2024 [id number] / [id number] / [id number] Sheeting Monisha 2x3in X.020in - [id number] Implanted:Qty : 1 on 04/27/2023 by Dudley Hinojosa MD at OR [facility] Left: Ear [employer] 09/25/2024 23-700-20 / / [id number] Sheeting Monisha 2x3 In X.005in - [id number] Implanted:Qty : 1 on 12/12/2023 by Gurvinder Garcia MD at OR [facility] Left: Ear [employer] 04/05/2026 23-700-05 / / [id number] Cath Pwr Picc Solo Inj 4f - [id number] Implanted:Qty : 1 on 01/26/2024 at [facility] CR BARD : [employer]ESS [employer] [id number] 06/20/2025 [id number] / / [id number] documented as of this encounter Visit Diagnoses Diagnosis PAF (paroxysmal atrial fibrillation) (HCC)- Primary Atrial fibrillation 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 documented as of this encounter Advance Directives Documents on File Type Date Recorded Patient Fur Blower Operator Expl anation POLST 04/26/2023 [place] OR [facility] FOR LIFE-SUSTAINING TREATMENT * Full [...] on File Name Relationship Healthcare [facility] p Communication Brody Avery Adult Child Power of Partnership Manager Care Teams Wood Cabinet Finisher Relationship Specialty Start Date End Date Jad Boone MD [address] [place] [address] [place] [address] PCP - General Family Medicine 09/20/23 documented as of this encounter
--- OUTSIDE RECORDS SUMMARY | 2024-04-25 23:50 | External Medical Summary ---
Author Name Unknown Address Unknown Organization K1F:LABORATORY [facility] - [address] [address] Laboratory Report Ordering Provider Test Date Status MELYSSA NARVAEZ 02/15/2024 11:03:00 Final Observation Date Value Abnormality Reference (Units ) Status Lactic Acid 02/15/2024 11:03:00 0.9 0.4-2.0 (mmol/L) Final Performing Location LABORATORY [facility] - [address] [address]
--- OUTSIDE RECORDS SUMMARY | 2024-04-25 23:50 | External Medical Summary ---
Author Name Unknown Address Unknown Organization K1F:LABORATORY [facility] - [address] [facility]. [address] [place] [address] Laboratory Report Ordering Provider Test Date Status MELYSSA NARVAEZ 02/15/2024 11:03:00 Final Observation Date Value Abnormality Reference (Units ) Status Body temperature 02/15/2024 11:03:00 37.0 (C) Final pH of Venous blood 02/15/2024 11:03:00 7.319 Below low normal 7.320-7.430 (units) Final Carbon dioxide [Partial pressure] in Venous blood 02/15/2024 11:03:00 51.2 40.0-60.0 (mmHg) Final Oxygen [Partial pressure] in Venous blood 02/15/2024 11:03:00 31.4 25.0-50.0 (mmHg) Final Base excess, Capillary 02/15/2024 11:03:00 -0.4 -2.0-2.0 (mmol/L) Final Hemoglobin [Mass/volume] in Blood by Oximetry 02/15/2024 11:03:00 10.5 Below low normal 14.0-16.8 (g/dL) Final Oxyhemoglobin, Venous (FO2HB) 02/15/2024 11:03:00 44.7 40.0-85.0 (% total Hgb) Final Carboxyhemoglobin 02/15/2024 11:03:00 1.2 <=1.5 (% total Hgb) Final Smokers: 0-9.0 % Methemoglobin 02/15/2024 11:03:00 0.5 <= 1.5 (% total Hgb) Final Deoxyhemoglobin/Hemoglo bin.total in Venous blood 02/15/2024 11:03:00 53.6 (% total Hgb) Final Oxygen content in Venous blood 02/15/2024 11:03:00 6.6 Below low normal 7.0-18.0 (%vol) F inal Bicarbonate, Venous, POC (i-STAT) 02/15/2024 11:03:00 25.6 23.0-31.0 (mmol/L) Final Performing Location LABORATORY [facility] - [address] [place] [address]
--- OUTSIDE RECORDS SUMMARY | 2024-04-25 23:50 | External Medical Summary ---
Author Name Unknown Address Unknown Organization K1F:LABORATORY [facility] - [address] [facility]. [place] [address] Laboratory Report Ordering Provider Test Date Status MELYSSA NARVAEZ 02/15/2024 11:03:00 Final Observation Date Value Abnormality Reference (Units ) Status BUN 02/15/2024 11:03:00 50 Above high normal 6-20 (mg/dL) Final Creatinine 02/15/2024 11:03:00 2.3 Above high normal 0.6-1.2 (mg/dL) Final Glomerular filtration rate/1.73 sq M.predicted [Volume Rate/Area] in Serum, Plasma or Blood by Creatinine-based formula (CKD-EPI) 02/15/2024 11:03:00 28 Below low normal >=60 (mL/min) Final eGFR is calculated based on the CKD-EPI 2020 equation Sodium 02/15/2024 11:03:00 142 135-146 (m mol/L) Final Potassium 02/15/2024 11:03:00 4.5 3.5-5.1 (m mol/L) Final Cl 02/15/2024 11:03:00 106 98-107 (mm ol/L) Final CO2 02/15/2024 11:03:00 22 22-32 (mmo l/L) Final Anion gap 02/15/2024 11:03:00 14 7-15 (mmol /L) Final Glucose 02/15/2024 11:03:00 97 70-120 (mg /dL) Final Albumin 02/15/2024 11:03:00 4.0 3.8-5.0 (g /dL) Final AST (Aspartate aminotransferase) 02/15/2024 11:03:00 16 10-50 (U/L) Final Alk Phos 02/15/2024 11:03:00 91 35-130 (U/ L) Final Bilirubin, Total 02/15/2024 11:03:00 0.3 <=1 .2 (mg/dL) Final Calcium 02/15/2024 11:03:00 9.9 8.4-10.2 ( mg/dL) Final Protein 02/15/2024 11:03:00 7.2 6.0-8.3 (g /dL) Final ALT (Alanine aminotransferase) 02/15/2024 11:03:00 12 10-50 (U/L) Final Performing Location LABORATORY [facility] - [facility] [address] [place] [address]
--- OUTSIDE RECORDS SUMMARY | 2024-04-25 23:50 | External Medical Summary ---
Author Name Unknown Address Unknown Organization K1F:LABORATORY [facility] - [address] [facility]. [place] [address] Laboratory Report Ordering Provider Test Date Status MELYSSA NARVAEZ 02/15/2024 12:39:55 Final Observation Date Value Abnormality Reference (Units ) Status Color of Urine by Auto 02/15/2024 12:39:55 Yellow Light Yellow, Yellow, Dark Yellow Final Clarity, Urine 02/15/2024 12:39:55 Clear Clear Final Glucose [Mass/volume] in Urine by Automated test strip 02/15/2024 12:39:55 Negative Negative (mg/dL) Final Bilirubin.total [Presence] in Urine by Automated test strip 02/15/2024 12:39:55 Negative Negative Final Ketones [Mass/volume] in Urine by Automated test strip 02/15/2024 12:39:55 Negative Negative (mg/dL) Final Specific gravity, Urine 02/15/2024 12:39:55 1.012 1.003-1.030 Final Hemoglobin [Presence] in Urine by Automated test strip 02/15/2024 12:39:55 Small Abnormal Negative Final pH, Urine 02/15/2024 12:39:55 5.5 5.0-7.5 (Units) Final Protein [Mass/volume] in Urine by Automated test strip 02/15/2024 12:39:55 30 Abnormal Negative (mg/dL) Final Urobilinogen [Mass/volume] in Urine by Automated test strip 02/15/2024 12:39:55 0.2 0.2, 1.0 (mg/dL) Final Nitrite [Presence] in Urine by Automated test strip 02/15/2024 12:39:55 Negative Negative Final Leukocyte esterase [Presence] in Urine by Automated test strip 02/15/2024 12:39:55 Negative Negative Final RBC, Urine 02/15/2024 12:39:55 3-5 Abnormal 0-2 (/HPF) Final WBC, Urine 02/15/2024 12:39:55 3-5 Abnormal 0-2 (/HPF) Final Bacteria [#/area] in Urine sediment by Microscopy high power field 02/15/2024 12:39:55 0-25 0-25 (/HPF) Final Crystals.amorphous [#/area] in Urine sediment by Microscopy high power field 02/15/2024 12:39:55 Many Abnormal None (/HPF) Final Performing Location LABORATORY [place] [address] [address] [place] [address]
--- OUTSIDE RECORDS SUMMARY | 2024-04-25 23:50 | External Medical Summary ---
Author Name Unknown Address Unknown Organization K1F:LABORATORY [facility] - [address] [address] Laboratory Report Ordering Provider Test Date Status MELYSSA NARVAEZ 02/15/2024 11:03:00 Final Observation Date Value Abnormality Reference (Units ) Status Magnesium 02/15/2024 11:03:00 2.1 1.5-2.6 (m g/dL) Final Performing Location LABORATORY [facility] - [address] [address]
--- OUTSIDE RECORDS SUMMARY | 2024-04-25 23:50 | External Medical Summary ---
Author Name Unknown Address Unknown Organization K1F:LABORATORY [facility] - [address] [place] [address] Laboratory Report Ordering Provider Test Date Status SENG GARCIA 02/15/2024 06:35:00 Final Observation Date Value Abnormality Reference (Units ) Status WBC, Total 02/15/2024 06:35:00 8.75 4.00-10.80 (K/uL) Final RBC 02/15/2024 06:35:00 3.79 4.50-5.25 (M/uL) Final Hemoglobin 02/15/2024 06:35:00 10.4 Below low normal 14.0-16.8 (g/dL) Final HCT 02/15/2024 06:35:00 33.7 Below low normal 40.0-48.4 (%) Final MCV 02/15/2024 06:35:00 88.9 82.0-99.5 (fL) Final MCH 02/15/2024 06:35:00 27.4 27.0-34.0 (pg) Final MCHC 02/15/2024 06:35:00 30.9 32.0-36.0 (g/dL) Final RDW 02/15/2024 06:35:00 17.3 11.5-15.5 (%) Final Platelets 02/15/2024 06:35:00 123 Below low normal 140-400 (K/uL) Final MPV 02/15/2024 06:35:00 10.8 6.6-11.1 (fL) Final Nucleated erythrocytes/100 leukocytes [Ratio] in Blood by Automated count 02/15/2024 06:35:00 0 <=0 (/100 WBCs) Final Performing Location LABORATORY [facility] - [address] [address]
--- OUTSIDE RECORDS SUMMARY | 2024-04-25 23:51 | External Medical Summary | Summary of Care ---
Author Name Unknown Organization [facility] Address [address] [place] [address] Phone [phone] Care Team Providers Care Tube Blower Name Role Phone Jad Boone MD Primary Care Provider Reason for Visit * Reason Comments NEW PATIENT Skin cancer head, re moved in [place] Encounter Details Date Type Department Care Team (Late st Contact Info) Description 02/05/2024 10:00 AM EDT Office Visit [facility] [address], [place] [phone] Hermes Noble MD 27 [facility] [address], [place] [phone] Open wound of auricle of left ear with complication, initial encounter*; PAF (paroxysmal atrial fibrillation) (HCC) Allergies Active Allergy Reactions Criticality Noted Date Comments Bee Venom Hives High 03/14/2017 documented as of this encounter (statuses as of 02/05/2024) Medications Medication Sig Dispensed Refills Start Date End Date Status Omeprazole 20 MG Oral Capsule Delayed Release (PriLOSEC) Take 1 Capsule by mouth in the morning. 90 Capsule 1 3 Active Vitamin D3 1.25 MG (64844 UT) Oral Capsule Take 1 Capsule by mouth once a week. 12 Capsule 3 3 Active Additional Information Patient taking differently:50,000 Units Oral QWEEK,Every Monday, Reported on 01/18/2024 Atorvastatin Calcium 20 MG Oral Tablet (Lipitor)Indicat ions:Coronary artery disease involving port lions coronary artery of port lions heart without angina pectoris TAKE 1 TABLET, BY MOUTH, IN THE MORNING. 90 Tablet 1 3 Active Acetaminophen 325 MG Oral Tablet (Tylenol) Take 2 Tablets by mouth every 6 hours as needed for Pain, Mild. 30 Tablet 3 Active Multivitamin Adult Oral Tablet Take by mouth every evening. Active Metoprolol Succinate ER 25 MG Oral Tablet Extended Release 24 Hour (Toprol XL)Indications:C hronic diastolic CHF (congestive heart failure) ([facility] [...] Breath. Active Lisinopril 10 MG Oral Tablet (Prinivil)Indica tions:Chronic heart failure with preserved ejection fraction (HFpEF) ([facility]) Take 1 Tablet by mouth in the morning. 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 103.317 mL 4 Active Additional Information Patient not taking.Reported on 02/05/2024 oxyCODONE HCl 5 MG Oral Capsule (Oxy IR) Take 1 Capsule by mouth every 6 hours as needed. Active amLODIPine Besylate 2.5 MG Oral Tablet (Norvasc) Take 1 Tablet by mouth in the morning. 30 Tablet 4 Active Magnesium Hydroxide 400 MG/5ML Oral Suspension [...] every 12 hours. 473 mL 4 Active vancomycin IV IV (AMBULATORY) Administer 1,000 mg intravenously in the morning and 1,000 mg in the evening. 80 g 4 024 Active cefepime IV IJ (AMBULATORY) Administer 2 g intravenously in the morning and 2 g at noon and 2 g before bedtime. 240 g 4 024 Active Bisacodyl 10 MG Rectal Suppository (Bisacodyl [...] Dulcolax is ineffective* (bowel protocol) 4 Active Furosemide 40 MG Oral Tablet (Lasix) Take 1 Tablet by mouth in the morning. 4 Active Warfarin Sodium 5 MG Oral Tablet (Coumadin)Indica tions:PAF (paroxysmal atrial fibrillation) ([facility]) Take 1 tablet by mouth on Monday and 1.5 tablet by mouth S,S,M,T,W,TH 4 Active Furosemide 20 MG Oral Tablet (Lasix)Indicatio ns:Chronic diastolic CHF (congestive heart failure) (HCC) Take 2 Tablets by mouth in the morning. 180 Tablet 1 3 024 Discontinued Warfarin Sodium 5 MG Oral Tablet (Coumadin)Indica tions:PAF (paroxysmal atrial fibrillation) (HCC) Take 1 Tablet by mouth every evening. 2/8: 10 mg; Otherwise 5 mg every Mon, Wed, Mon; 7.5 mg all other days and as directed by [facility] 135 Tablet 1 4 024 Discontinued documented as of this encounter (statuses as of 02/05/2024) Active Problems Problem Noted Date Diagnosed Date [...] fibrillation) 10/18/2018 Coronary artery disease invo lving port lions coronary artery without angina pectoris 01/07/2015 group home current use of anticoagulant therapy 0 05/01/2014 Overview: ICD-10 update of inactive term Heart failure, systolic, due to CAD 08/28/2012 Overview: ECHO 2011 - Segmental wall abnormality, severe hypokinesis of anterior septum, anterior wall, apex, distal inferior septum, distal inferior wall, and distal posterior wall EF 33% Mass of left parotid gland documented as of this encounter (statuses as of 02/05/2024) Resolved Problems Problem Noted Date Diagnosed Date [...] as of this encounter (statuses as of 02/05/2024) Immunizations Name Administration Dates Next Due COVID-19 mRNA, LNP-s, No Pre serve, 2-Dose Series (TellmeGen) 11/26/2020,11/05/2020 Pneumococcal Conjugate Vacc, 13 Valent (Prevnar) [...] Progress Notes * Hermes Noble MD - 02/05/2024 10:54 AM EDT Images from the original note were not included. WOUND CARE OUTPATIENT CONSULT DOS: 02/05/2024 Ref: Patient is seen at the request of Jad Boone MD. CC: Left ear wound HPI: Location of wound (s): See Wound Assessment Patient had prior SCC from left preauricular area removed along with complex reconstruction of the area and developed a dehiscence of the skin flap. Current treatment comprises 1/2 st Dakins and a dry dressing. The patient notes pain over the raw ulcerated area of the ear canal and posterior auricle. Patient is on antibiotics via PICC managed by Infectious Disease. Subjective ROS: CONST: no weight loss, no fever, no fatigue SKIN: non-healing wound left periauricular skin and reconstructed flap ROS was negative other than stated above. PMH: Patient Active Problem List Diagnosis Heart failure, systolic, due to CAD ([facility]) meterman current use of anticoagulant therapy Coronary artery disease involving port lions coronary artery without angina pectoris PAF (paroxysmal atrial fibrillation) ([facility]) Mild intermittent asthma without complication Other specified peripheral vascular diseases ([facility]) Chronic diastolic CHF (congestive heart failure) ([facility]) Essential hypertension with goal blood pressure less than 140/90 Dyslipidemia, goal LDL below 70 Atypical migraine Other specified anemias Suspected sleep apnea Mass of left parotid gland 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) Malignant neoplasm of head, face and neck (HCC) 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) Bilateral hand numbness Delayed wound healing Surgical site infection Status post incision and drainage 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 Bisacodyl 10 MG Rectal Suppository (Bisacodyl Laxative) Insert 1 suppository rectally every 72 hours as needed for constipation if MoM is ineffective (bowel Protocol) EpiPen 2-Brian 0.3 MG/0.3ML Injection Solution Auto-injector Inject 1 dose intramuscularly as needed for anaphylaxis (H/O bee sting allergy) Fleet Enema Rectal Enema Insert 1 dose rectally every 72 hours as needed for constipation *if Dulcolax is ineffective* (bowel protocol) Furosemide 40 MG Oral Tablet (Lasix) Take 1 Tablet by mouth in the morning. cefepime IV IJ (AMBULATORY) Administer 2 g intravenously in the morning and 2 g at noon and 2 g before bedtime. vancomycin IV IV (AMBULATORY) Administer 1,000 mg intravenously in the morning and 1,000 mg in the evening. Sodium Hypochlorite 0.25 % External Solution Apply topically to affected area every 12 hours. Magnesium Hydroxide 400 MG/5ML Oral Suspension (Milk of Magnesia) Take 30 mL by mouth daily as needed for Constipation. Polyethylene Glycol 3350 17 GM/SCOOP Oral Powder (MiraLax) Take 17 g by mouth daily as needed for Constipation. Sennosides-Docusate Sodium 8.6-50 MG Oral Tablet (Senna S) Take 1 Tablet by mouth daily as needed for Constipation. amLODIPine Besylate 2.5 MG Oral Tablet (Norvasc) Take 1 Tablet by mouth in the morning. oxyCODONE HCl 5 MG Oral Capsule (Oxy IR) Take 1 Capsule by mouth every 6 hours as needed. Lisinopril 10 MG Oral Tablet (Prinivil) Take 1 Tablet by mouth in the morning. Ventolin HFA 108 (90 Base) MCG/ACT Inhalation Aerosol Solution Inhale 2 Puffs by mouth every 4 hours as needed for Shortness of Breath. Metoprolol Succinate ER 25 MG Oral Tablet Extended Release 24 Hour (Toprol XL) Take 1 Tablet by mouth in the morning. Multivitamin Adult Oral Tablet Take by mouth every evening. Acetaminophen 325 MG Oral Tablet (Tylenol) Take 2 Tablets by mouth every 6 hours as needed for Pain, Mild. Atorvastatin Calcium 20 MG Oral Tablet (Lipitor) TAKE 1 TABLET, BY MOUTH, IN THE MORNING. Vitamin D3 1.25 MG (50075 UT) Oral Capsule Take 1 Capsule by mouth once a week. Patient taking differently: Take 1 Capsule by mouth once a week. Every Monday Warfarin Sodium 5 MG Oral Tablet (Coumadin) Take 1 Tablet by mouth every evening. 2/8: 10 mg; Otherwise 5 mg every e, Wed, Mon; 7.5 mg all other days and as directed by [facility] Ofloxacin 0.3 % Otic Solution (Floxin) Administer 5 Drops into ears in the morning and 5 Drops before bedtime. Patient not taking: Reported on 02/05/2024 Not Taking Ztdfnfqlv-Encipjhm-Chmand Alc 2-14-10.5 % External Cream Apply to both lower extremities once a day Omeprazole 20 MG Oral Capsule Delayed Release (PriLOSEC) Take 1 Capsule by mouth in the morning. Review of patient's allergies indicates: Allergen Reactions Bee Venom Hives Past Surgical History: Procedure Laterality Date FACE/SCALP DEEP TUMOR REMOVAL, 2 CM OR MORE Left 04/27/2023 EXCISION FACE/SCALP DEEP TUMOR, 2 CM OR MORE performed by Dudley Hinojosa MD at OR [facility] IR VENOUS ACCESS NON-MEDIPORT 01/26/2024 ISLAND PEDICLE FLAP N/A 04/27/2023 ISLAND PEDICLE FLAP performed by Dudley Hinojosa MD at OR [facility] ISLAND PEDICLE FLAP N/A 12/12/2023 ISLAND PEDICLE FLAP performed by Gurvinder Garcia MD at OR [facility] REBUILD OUTER EAR CANAL Left 12/12/2023 RECONSTRUCTION EXTERNAL AUDITORY CANAL DUE TO INJURY performed by Gurvinder Garcia MD at OR [facility] REMOVAL OF NECK LYMPH NODES Left 04/27/2023 CERVICAL LYMPHADENECTOMY COMPLETE performed by Dudley Hinojosa MD at OR [facility] REMOVAL OF PAROTID GLAND/TUMOR N/A 04/27/2023 EXCISION PAROTID TOTAL WITH DISSECTION FACIAL NERVE performed by Dudley Hinojosa MD at OR [facility] REMOVAL OF TONSILS, AGE 12+ REPAIR HIP FRACTURE(S), W/FIXATION Right REPAIR SLIDING HERNIA REVISE MIDDLE EAR & MASTOID Left 12/12/2023 TYMPANOPLASTY MASTOIDECTOMY WITHOUT OSSICULAR RECONSTRUCTION performed by Gurvinder Garcia MDat OR [facility] SKIN SPLIT GRAFT, TRUNK/ARMS/LEGS N/A 12/12/2023 SPLIT GRAFT TRUNK ARM LEG LESS THAN 100SQ CM performed by Gurvinder Garcia MD at OR [facility] Social History: Social History Tobacco Use Smoking status: Former Current packs/day: 0.00 Types: Cigarettes Quit date: 2003 Years since quittin.4 Passive exposure: Past Smokeless tobacco: Never Tobacco comments: smoked, and quit in 2003 Vaping Use Vaping status: Never Used Substance Use Topics Alcohol use: No Drug use: No Family History: No family history on file. Objective EXAM: There were no vitals taken for this visit. GENERAL: alert, no apparent distress HEAD: normocephalic EYES: sclera clear EARS: left ear partially removed with only inferior pinna remaining, ulcerated area from reconstruction NOSE: no mucosal erythema MOUTH: mucous membranes are moist SKIN: see wound assessment below WOUND ASSESSMENT: Alteration in Skin Integrity Incision Left Ear (Active) Clinical Image 02/05/24 1024 Wound Length (cm) 4 cm 02/05/24 1024 Wound Width (cm) 2.5 cm 02/05/24 1024 Wound Depth (cm) 0.2 cm 02/05/24 1024 Yellow Fibrinous Slough (%) 76-99% 02/05/24 1024 Drainage serosanguinous, mild 02/05/24 1024 Odor (after cleansing wound) No 02/05/24 1024 Azul-Wound (Surrounding Skin) Callus 02/05/24 1024 Evidence of Infection No 02/05/24 1024 Wound Surface Area (cm^2) 10 cm^2 02/05/24 1024 Wound Volume (cm^3) 2 cm^3 02/05/24 1024 Alteration in Skin Integrity Lateral;Left Forehead (Active) Clinical Image 02/05/24 1029 Wound Length (cm) 6.5 cm 02/05/24 1029 Wound Width (cm) 1 cm 02/05/24 1029 Wound Depth (cm) 0.1 cm 02/05/24 1029 Wound Surface Area (cm^2) 6.5 cm^2 02/05/24 1029 Wound Volume (cm^3) 0.65 cm^3 02/05/24 1029 Granulation tissue developing over ulcerated area. Small area of exposed bone. Assessment & Plan ASSESSMENT: ICD-10-CM 1. Open wound of auricle of left ear with complication, initial encounter S01.302A PLAN: At least once daily: - 1/2 st Dakins irrigation, blot dry - Thin layer of vaseline over ulcerated area and scabs - Vaseline gauze over periauricular ulcer - 4x4 gauze buttress - ABD pad - Fishnet compressive head wrap Patient has follow-up with Infectious Disease 02/08/2024 Patient has follow-up with ENT 02/16/2024 Follow Up: Return in about 6 weeks (around 03/18/2024). Audra Noble MD documented in this encounter Nursing Notes * Abby Matos RN - 02/05/2024 3:43 PM EDT Irrigated left ear wound with half strength Dakins. Dressing applied to left ear area, vaseline, vaseline gauze and dry 4x4's applied to ear wound, covered with ABD pad and secured with surgilast netting size 7. Tolerated dressing well. * Abby Matos RN - 02/05/2024 10:34 AM EDT 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 He refused to go back to [place] for wound care so was scheduled here in [place]. He is staying at [facility], They are doing Dakins Irrigation and DSD BID. documented in this encounter Plan of Treatment Upcoming Encounters Date Type Department Care Team (Late st Contact Info) Description 02/05/2024 5:20 PM EDT Anticoagulation Centralized Clinical Pharmacy Services, Sandra [address] [place] [id number] [facility] 58 [address] [facility] [place] [id number] PAF (paroxysmal atrial fibrillation) ([facility])* 02/08/2024 4:00 PM EDT Pharmacy Infectious Disease, [address] [address] Agc5, Pharmacist Infectious Disease [address] [place] [address] 02/12/2024 5:20 PM EDT Anticoagulation Centralized Clinical Pharmacy Services, Sandra Gómez [address] [place] [address] [place] [address] [facility], [facility] 58 [address] [facility] [place] [id number] 02/13/2024 9:20 AM EDT Office Visit [place] [address] [place] [address] Jad Boone MD [address] [facility] [address] [place] [address] 02/16/2024 10:45 AM EDT Office Visit Otolaryngology/Head & Neck/Facial Plastic Surgery [address], [place] [phone] Gurvinder Garcia MD [address], [place] [phone] 03/18/2024 9:40 AM EDT Office Visit W[facility], [facility] [address] [place] [address] Hermes Noble MD [address] [address] 04/02/2024 9:40 AM EDT Office Visit Infectious Disease [facility] [address] [place] [id number] Rio Chun DO [address] [place] [address] 06/06/2024 9:30 AM EDT Office Visit Cardiology, [address] [address] Yas Mckinnon CRNP [address] [place], [place] [phone] 07/23/2024 9:30 AM EST Office Visit Radiation Oncology, [facility] [address] [place] [phone] Eros Faust MD [address] [place] [address] [place] [address] Health Maintenance Due Date Last Done Comments Albumin/Creatinine Ratio 1963 Hepatitis C Screening 1963 Zoster Vaccines (2 of 3) 06/26/2014 05/01/2014 *SPIROMETRY ONCE FOR ASTHMA-ADULT 07/14/2022 *NEPHROLOGY REFERRAL DUE TO RESISTANT HTN 09/25/2023 COVID-19 Vaccine ( - 2022- season) 2023 06/01/2023, 11/26/2020, 11/05/2020 Depression Screening 09/18/2024 09/18/2023 GFR 02/04/2025 02/05/2024, 01/19, 01/29/2024, Additional history exists DTaP,Tdap,and Td Vaccines (2 [...] this encounter Medical Devices Implanted Type Area Master Welder Device Identifier Shelf Expiration Date Model / Serial / Lot Connector Nerve 2mm 15mm - [id number] Implanted:Qty : 1 on 04/27/2023 by Dudley Hinojosa MD at OR [facility] Left: Face [employer] [id number] 12/24/2024 [id number] / / [id number] Alloderm 4x7 Thin 0.8-1.2 (28 Units) - [id number] - [id number] Implanted:Qty : 28 on 04/27/2023 by Dudley Hinojosa MD at OR [facility] Left: Face ABBVIE 12/18/2024 [id number] / [id number] / [id number] Sheeting Monisha 2x3in X.020in - [id number] Implanted:Qty : 1 on 04/27/2023 by Dudley Hinojosa MD at OR [facility] Left: Ear [employer] 09/25/2024 / / [id number] Sheeting Monisha 2x3 In X.005in - [id number] Implanted:Qty : 1 on 12/12/2023 by Gurvinder Garcia MD at OR [facility] Left: Ear [employer] 04/05/2026 / / [id number] Cath Pwr Picc Solo Inj 4f - [id number] Implanted:Qty : 1 on 01/26/2024 at [facility] CR BARD : [employer] SYSTEM[employer] [id number] 06/20/2025 [id number] / / [id number] documented as of this encounter Visit Diagnoses Diagnosis PAF (paroxysmal atrial fibrillation) (HCC)- Primary Atrial fibrillation Open wound of auricle of left ear with complication, initial encounter- Primary PAF (paroxysmal atrial fibrillation) (HCC) Atrial fibrillation 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 documented as of this encounter Advance Directives Documents on File Type Date Recorded Patient Segmental Paver Installer Expl anation POLST 04/26/2023 [place] [facility] FOR LIFE-SUSTAINING TREATMENT * Full Code (Latest [...] Agents on File Name Relationship Healthcare Agent [facility] Communication [facility] Adult Child Power of Electronic Device Repairer Care Teams Tube Blower Relationship Specialty Start Date End Date Jad Boone MD [address] [address] [place] [address] PCP - General Family Medicine 09/20/23 documented as of this encounter
--- OUTSIDE RECORDS SUMMARY | 2024-04-25 23:51 | External Medical Summary ---
Author Name Unknown Address Unknown Organization [id number]:[facility] - [address] [facility]. [place] [id number] Laboratory Report Ordering Provider Test Date Status SENG GARCIA 02/05/2024 06:41:00 Final Observation Date Value Abnormality Reference (Units ) Status SYNC LEUKOCYTES IN BLOOD BY AUTOMATED COUNT 02/05/2024 06:41:00 7.40 4.00-10.80 (K/uL) Final Segs 02/05/2024 06:41:00 69.2 40.0-75.0 (%) Final Lymphs % 02/05/2024 06:41:00 9.6 Below low normal 18.0-42.0 (%) Final Monos 02/05/2024 06:41:00 9.5 1.0-11.0 (%) Final Eosinophils 02/05/2024 06:41:00 10.7 Above high normal 0.0-6.0 (%) Final Basos 02/05/2024 06:41:00 0.7 0.0-2.0 (%) Final Immature Granulocyte, Percent 02/05/2024 06:41:00 0.3 0.0-2.0 (%) Final Absolute Segs 02/05/2024 06:41:00 5.13 1.80-7.70 (K/uL) Final Lymphs, absolute 02/05/2024 06:41:00 0.71 Below low normal 1.00-4.80 (K/ul) Final Monos, Abs 02/05/2024 06:41:00 0.70 0.00-1.10 (K/uL) Final Eos, Abs 02/05/2024 06:41:00 0.79 Above high normal 0.00-0.70 (K/uL) Final Basos, Abs 02/05/2024 06:41:00 0.05 0.00-0.20 (K/uL) Final Immature Granulocytes, Number 02/05/2024 06:41:00 0.02 0.00-0.20 (K/uL) Final Performing Location [facility] - [address] [place] [address]
--- OUTSIDE RECORDS SUMMARY | 2024-04-25 23:51 | External Medical Summary | Summary of Care ---
Author Name Unknown Organization [facility] Address [address] [place] [address] Phone [phone] Care Team Providers Care Technical Trainer Name Role Phone Jad Boone MD Primary Care Provider Reason for Visit * Reason Comments Dosage Adjustment Via Phone (anticoag Cl inic) Encounter Details Date Type Department Care Team (Late st Contact Info) Description 02/08/2024 4:00 PM EDT Pharmacy Infectious Disease, [place] [address] [id number] Agc5, Pharmacist Infectious Disease [address] [place] [address] Encounter for therapeutic drug level monitoring*; MRSA (methicillin resistant Staphylococcus aureus) infection Allergies Active Allergy Reactions Criticality Noted Date Comments Bee Venom Hives High 03/14/2017 documented as of this encounter (statuses as of 02/08/2024) Medications Medication Sig Dispensed Refills Start Date End Date Status Omeprazole 20 MG Oral Capsule Delayed Release (PriLOSEC) Take 1 Capsule by mouth in the morning. 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 0 05/01/2014 Overview: ICD-10 update of inactive term Heart failure, systolic, due to CAD 08/28/2012 Overview: ECHO 2011 - Segmental wall abnormality, severe hypokinesis of anterior septum, anterior wall, apex, distal inferior septum, distal inferior wall, and distal posterior wall EF 33% Mass of left parotid gland documented as of this encounter (statuses as of 02/08/2024) Resolved Problems Problem Noted Date Diagnosed Date [...] as of this encounter (statuses as of 02/08/2024) Immunizations Name Administration Dates Next Due COVID-19 mRNA, LNP-s, No Pre serve, 2-Dose Series ([employer]) 11/26/2020,11/05/2020 Pneumococcal Conjugate Vacc, 13 Valent (Prevnar) [...] this encounter Progress Notes * Carla Gray, LTAC, located within [facility] - 02/08/2024 2:04 PM EDT [facility] OUTPATIENT PHARMACOKINETIC CONSULT [address] [facility] [address] Name: Stephen Singh Avery Date/Time: 02/08/2024 2:04 PM Patient on Outpatient Parenteral Antimicrobial Therapy with monitoring and management by [facility] Infectious Disease [facility] Pharmacist under Collaborative Practice Agreement with [facility] Infectious Disease physician Dr. Laura Arambula. Patient resides at [facility] Medication(s) being managed: Vancomycin IV - Goal [...] Ordered Every 2 weeks: CRP Phone Numbers: [facility] - (p) [phone] Lab information: Labs can be processed any day at [facility] Sent to [facility] to be processed Lab information: Lab Results [...] date: Lab Results Component Value Date/Time VANCORANDOM 18.7 02/08/2024 04:27 AM VANCORANDOM 21.9 02/01/2024 06:35 AM VANCORANDOM 31.8 01/29/2024 06:23 AM Assessment and Plan: Analysis of the most recent level(s) using Level 5 [employer] gives the following patient-specific pharmacokinetic parameters: CL: 2 L/hr V: 71.4 L T1/2: 25.9 hours Using these values, the current regimen of Vancomycin 1000 mg IV every 24 hours is predicted to result in a steady-state trough of 15.6 mg/L and AUC24 of 499 mg/L.hr. At this time we recommend a regimen of 1000 mg IV every 24 hours, which is predicted to result in a steady-state trough of 15.6 mg/Land AUC24 of 499 mg/L.hr. 02/08/24 Reviewed labs from 02/07/24 Discussed plan of care with KATLYN Frazier supervisor marble Continue Vancomycin 1000 mg q24h Labs will be drawn on 02/12/24 ID [facility] will review again on 02/12/24 in the afternoon Contact info for questions/concerns: [facility] Infectious Disease [facility] Pharmacist at [phone] [facility] Infectious Disease [facility] 02/08/2024, 2:04 PM documented in this encounter Plan of Treatment Upcoming Encounters Date Type Department Care Team (Late st Contact Info) Description 02/12/2024 5:20 PM EDT Anticoagulation Centralized Clinical Pharmacy Services, [place] [address] [place] [address] [facility], [facility] 58 60 [facility] [place] [address] 02/16/2024 10:45 AM EDT Office Visit Otolaryngology/Head & Neck/Facial Plastic Surgery [address] [place] [address] Gurvinder Garcia MD [address] [place] [address] 03/18/2024 9:40 AM EDT Office Visit Wound Care, [facility] [address] [place] [address] Hermes Noble MD [address] [address] 04/02/2024 9:40 AM EDT Office Visit Infectious Disease [facility] [address] [place] [phone] Rio Chun DO [address] [place] [address] 06/06/2024 9:30 AM EDT Office Visit Cardiology, [place] [address] [place] [address] Yas Mckinnon CRNP [address] [place] [address] 07/23/2024 9:30 AM EST Office Visit Radiation Oncology, [facility] [address] [place] [address] Eros Faust MD [address] [place] [address] [place] [address] Health Maintenance Due Date Last Done Comments Albumin/Creatinine Ratio 1963 Hepatitis C Screening 1963 Zoster Vaccines (2 of 3) 06/26/2014 05/01/2014 *SPIROMETRY ONCE FOR ASTHMA-ADULT 07/14/2022 *NEPHROLOGY REFERRAL DUE TO RESISTANT HTN 09/25/2023 COVID-19 Vaccine (4 - season) 2023 06/01/2023, 11/26/2020, 11/05/2020 Depression Screening [...] this encounter Medical Devices Implanted Type Area Freight Elevator Operator Device Identifier Shelf Expiration Date Model / Serial / Lot Connector Nerve 2mm 15mm - [id number] Implanted:Qty : 1 on 04/27/2023 by Dudley Hinojosa MD at [place] [facility] Left: Face [employer] [id number] 12/24/2024 [id number] / / [id number] Alloderm 4x7 Thin 0.8-1.2 (28 Units) - [id number] - [id number] Implanted:Qty : 28 on 04/27/2023 by Dudley Hinojosa MD at [place] [facility] Left: Face ABBVIE 12/18/2024 [id number] / [id number] / [id number] Sheeting Monisha 2x3in X.020in - [id number] Implanted:Qty : 1 on 04/27/2023 by Dudley Hinojosa MD at [place] [facility] Left: Ear [employer]IED [employer] 09/25/2024700-20 / / [id number] Sheeting Monisha 2x3 In X.005in - [id number] Implanted:Qty : 1 on 12/12/2023 by Gurvinder Garcia MD at [place] [facility] Left: Ear ALLIED BIOM[employer] 04/05/2026-700-05 / / [id number] Cath Pwr Picc Solo Inj 4f - [id number] Implanted:Qty : 1 on 01/26/2024 at [facility] CR BARD : ACCESS SYSTEMS [id number] 06/20/2025 [id number] / / [id number] documented as of this encounter Visit Diagnoses [...] Documents on File Type Date Recorded 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
--- OUTSIDE RECORDS SUMMARY | 2024-04-25 23:51 | External Medical Summary ---
Author Name Unknown Address Unknown Organization K1F:LABORATORY [facility] - [address] [address] Laboratory Report Ordering Provider Test Date Status SENG GARCIA 02/05/2024 06:41:00 Final Warfarin Therapy
INR: 2 .0-3.0 conventional anticoagulation
INR: 2.5- 3.5 high intensity anticoagulation Observation Date Value Abnormality Reference (Units ) Status PT 02/05/2024 06:41:00 21.1 Above high normal 11 .6-15.2 (seconds) Final INR 02/05/2024 06:41:00 1.8 Above high normal 0. 8-1.2 Final Performing Location LABORATORY [facility] - [address] [address]
--- OUTSIDE RECORDS SUMMARY | 2024-04-25 23:51 | External Medical Summary ---
Author Name Unknown Address Unknown Organization K1F:LABORATORY [facility] - [address] [address] Laboratory Report Ordering Provider Test Date Status SENG GARCIA 02/01/2024 06:35:00 Final Warfarin Therapy
INR: 2 .0-3.0 conventional anticoagulation
INR: 2.5- 3.5 high intensity anticoagulation Observation Date Value Abnormality Reference (Units ) Status PT 02/01/2024 06:35:00 26.3 Above high normal 11 .6-15.2 (seconds) Final INR 02/01/2024 06:35:00 2.4 Above high normal 0. 8-1.2 Final Performing Location [facility] - [address] [address]
--- OUTSIDE RECORDS SUMMARY | 2024-04-25 23:51 | External Medical Summary ---
Author Name Unknown Address Unknown Organization K1F:[facility]ATORY [facility] - [address] [address] Laboratory Report Ordering Provider Test Date Status SENG GARCIA 02/01/2024 06:35:00 Final Observation Date Value Abnormality Reference (Units ) Status BUN 02/01/2024 06:35:00 30 Above high normal 6-20 (mg/dL) Final Creatinine 02/01/2024 06:35:00 1.1 0.6-1.2 (mg/dL) Final Glomerular filtration rate/1.73 sq M.predicted [Volume Rate/Area] in Serum, Plasma or Blood by Creatinine-based formula (CKD-EPI) 02/01/2024 06:35:00 72 >=60 (mL/min) Final eGFR is calculated based on the CKD-EPI 2020 equation Sodium 02/01/2024 06:35:00 142 135-146 (m mol/L) Final Potassium 02/01/2024 06:35:00 4.1 3.5-5.1 (m mol/L) Final Cl 02/01/2024 06:35:00 104 98-107 (mm ol/L) Final CO2 02/01/2024 06:35:00 26 22-32 (mmo l/L) Final Anion gap 02/01/2024 06:35:00 12 7-15 (mmol /L) Final Glucose 02/01/2024 06:35:00 96 70-120 (mg /dL) Final Calcium 02/01/2024 06:35:00 9.5 8.4-10.2 ( mg/dL) Final Performing Location LAB[facility] - [address] [address]
--- OUTSIDE RECORDS SUMMARY | 2024-04-25 23:51 | External Medical Summary | Summary of Care ---
Author Name Unknown Organization [facility] Address [address] [place] [facility] [place] [address] Phone [phone] Care Team Providers Care Telehealth Director Name Role Phone Jad Boone MD Primary Care Provider Reason for Visit * Reason Comments Dosage Adjustment Via Phone (anticoag Cl inic) Encounter Details Date Type Department Care Team (Latest Contact Info) Description 01/29/2024 5:20 PM EDT Anticoagulation Centralized Clinical Pharmacy Services, [place] [address] [place] [address] [facility] 58 60 [facility] [place] [address] PAF (paroxysmal atrial fibrillation) ([facility])* Allergies Active Allergy Reactions Criticality Noted Date Comments Bee Venom Hives High 03/14/2017 documented as of this encounter (statuses as of 01/29/2024) Medications Medication Sig Dispensed Refills Start Date End Date Status Omeprazole 20 MG Oral Capsule Delayed Release (PriLOSEC) Take 1 Capsule by mouth in the morning. 90 Capsule 1 11/15/2022 Active Vitamin D3 1.25 MG (59276 UT) Oral Capsule Take 1 Capsule by mouth once a week. 12 Capsule 3 01/30/2023 Active Additional Information Patient taking differently:50,000 Units Oral QWEEK,Every Monday, Reported on 01/18/2024 Atorvastatin Calcium 20 MG Oral Tablet (Lipitor)Indicatio ns:Coronary artery disease involving shoalwater coronary artery of shoalwater heart without angina pectoris TAKE 1 TABLET, BY MOUTH, IN THE MORNING. 90 Tablet 1 03/04/2023 Active Acetaminophen 325 MG Oral Tablet (Tylenol) Take 2 Tablets by mouth every 6 hours as needed for Pain, Mild. 30 Tablet 04/03/2023 Active Multivitamin Adult Oral Tablet Take by mouth every evening. Active Furosemide 20 MG Oral Tablet (Lasix)Indications :Chronic diastolic CHF (congestive heart failure) ([facility]) Take 2 Tablets by mouth in the morning. 180 Tablet 1 08/15/2023 Active Metoprolol Succinate ER 25 MG Oral Tablet Extended Release 24 Hour (Toprol XL)Indications:Chr onic diastolic CHF (congestive heart failure) ([facility]) Take 1 Tablet by mouth in the [...] heart failure with preserved ejection fraction (HFpEF) ([facility]) Take 1 Tablet by mouth in the morning. 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 103.317 mL 12/22/2023 Active oxyCODONE HCl 5 MG Oral Capsule (Oxy IR) Take 1 Capsule by mouth every 6 hours as needed. Active Warfarin Sodium 5 MG Oral Tablet (Coumadin)Indicati ons:PAF (paroxysmal atrial fibrillation) ([facility]) Take 1 Tablet by mouth every evening. 2/8: 10 mg; Otherwise 5 mg every Tue, Wed, Fri; 7.5 mg all other days and as directed by [facility] 135 Tablet 1 01/02/2024 Active amLODIPine Besylate 2.5 MG Oral Tablet [...] g before bedtime. 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 0 05/01/2014 Overview: ICD-10 update of inactive term Heart failure, systolic, due to CAD 08/28/2012 Overview: ECHO 2011 - Segmental wall abnormality, severe hypokinesis of anterior septum, anterior wall, apex, distal inferior septum, distal inferior wall, and distal posterior wall EF 33% Mass of left parotid gland documented as of this encounter (statuses as of 01/29/2024) Resolved Problems Problem Noted Date Diagnosed Date [...] as of this encounter (statuses as of 01/29/2024) Immunizations Name Administration Dates Next Due COVID-19 [...] as of this encounter Progress Notes * Rosie Kline, [facility] - 01/29/2024 9:36 AM EDT Images from the original note were not included. Medication Therapy Disease Management - Anticoagulation Patient: Stephen Varela | : 1945 Subjective [facility] Patient Anticoagulation Encounter Patient is a resident at: [facility] -- Fax sent to number listed above detailing plan of care below. Please notify clinic with any unusual brusing or bleeding, N/V/D, medication or diet changes or anymissed or extra doses of Coumadin. Patient-Reported Symptoms: Patient Findings Positives: Change in medications (Discharged on Cefepime and Vanco until 03/07/24), Hospital admission Negatives: Signs/symptoms of thrombosis, Signs/symptoms of bleeding, Change in health, Change in alcohol use, Change in activity, Upcoming invasive procedure, Missed doses, Extra doses, Change in diet/appetite, Bruising Comments: Pt admitted to hospital 01/23-01/26 for PICC line placement, IV antibiotic initiation, and wound care after experiencing significant dehiscence of most recent left ear/face/ear canal reconstruction. Patient insisted on leaving AMA on 01/25, but ultimately returned to the unit for PICC placementand IV antibiotic therapy. PICC placed 01/25 without issue. Wound debrided further on 01/26 prior to discharge. Patient to complete 6 weeks of Abx total Objective Current Warfarin Dose As of 01/29/2024 Warfarin maintenance plan: 5 mg (1 mg x 5) every Fri; 7.5 mg (1 mg x 7.5) all other days INR Result As of 01/29/2024 INR goal: 2.0-3.0 INR used for dosin.6 (01/29/2024) Assessment & Plan Warfarin Plan As of 01/29/2024 Full warfarin instructions: 01/28: 12.5 mg; Otherwise 5 mg every Fri; 7.5 mg all other days Next INR check: 02/05/2024 Repeat PT/INR in 1 week(s) Weekly dose: not changed Additional Dosing Information: Description Call patient while at [facility] AND fax Facility at [phone] Cefepime and Vanco until 03/07/24 (getting weekly labs) pt started multivitamin around beginning of October Rosie Kline RPh Clinical Pharmacist 01/29/2024, 9:36 AM documented in this encounter Plan of Treatment Upcoming Encounters Date Type Department Care Team (Late st Contact Info) Description 02/05/2024 5:20 PM EDT Anticoagulation Centralized Clinical Pharmacy Services, Sandra Gómez [address] [place] [address] [place] [address] [facility] 58 60 [facility] [place] [address] 02/13/2024 9:20 AM EDT Office Visit [place] [address] [address] [place] [address] Jad Boone MD [address] [address] 02/16/2024 10:45 AM EDT Office Visit Otolaryngology/Head & Neck/Facial Plastic Surgery [address] [place] [address] Gurvinder Garcia MD [address] [place] [address] 04/02/2024 10:40 AM EDT Office Visit Infectious Disease, [place] [address] [place] [address] Laura Arambula MD [address] [place] [phone] 06/06/2024 9:30 AM EDT Office Visit Cardiology, [place] [address] [place] [address] Yas Mckinnon CRNP [address] [place] [address] 07/23/2024 9:30 AM EST Office Visit Radiation Oncology, [facility] [address] [place] [address] Eros Faust MD [address] [place], [place] [phone] Health Maintenance Due Date Last Done Comments Albumin/Creatinine Ratio 1963 Hepatitis C Screening 1963 Zoster Vaccines (2 of 3) 06/26/2014 05/01/2014 *SPIROMETRY ONCE FOR ASTHMA-ADULT 07/14/2022 *NEPHROLOGY REFERRAL DUE TO RESISTANT HTN 09/25/2023 COVID-19 Vaccine (2022- season) 2023 06/01/2023, 06/01/2023, 06/09/2022, Additional history exists Depression Screening 09/18/2024 09/18/2023 GFR 01/28/2025 01/29/2024, 06/0 03/2024, 01/26/2024, Additional history exists DTaP,Tdap,and Td Vaccines (2 [...] this encounter Medical Devices Implanted Type Area Traffic Monitor Specialist Device Identifier Shelf Expiration Date Model / Serial / Lot Connector Nerve 2mm 15mm - [id number] Implanted:Qty : 1 on 04/27/2023 by Dudley Hinojosa MD at [place] [facility] Left: Face [employer] [id number] 12/24/2024 [id number] / / [id number] Alloderm 4x7 Thin 0.8-1.2 (28 Units) - [id number] - [id number] Implanted:Qty : 28 on 04/27/2023 by Dudley Hinojosa MD at OR [facility] Left: Face ABBVIE 12/18/2024 [id number] / [id number] / [id number] Sheeting Monisha 2x3in X.020in - [id number] Implanted:Qty : 1 on 04/27/2023 by Dudley Hinojosa MD at OR [facility] Left: Ear [employer]IED [employer] 09/25/2024 / [id number] Sheeting Monisha 2x3 In X.005in - [id number] Implanted:Qty : 1 on 12/12/2023 by Gurvinder Garcia MD at OR [facility] Left: Ear ALLIED BIOM[employer] 04/05/2026 / [id number] Cath Pwr Picc Solo Inj 4f - [id number] Implanted:Qty : 1 on 01/26/2024 at [facility] CR BARD : ACCESS SYSTEMS [id number] 06/20/2025 [id number] / / [id number] documented as of this encounter Visit Diagnoses Diagnosis PAF (paroxysmal atrial fibrillation) (HCC)- Primary Atrial fibrillation 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 documented as of this encounter Advance Directives Documents on File Type Date Recorded 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
--- OUTSIDE RECORDS SUMMARY | 2024-04-25 23:51 | External Medical Summary | Summary of Care ---
Author Name Unknown Organization [facility] Address [address] [place] [address] Phone [phone] Care Team Providers Care Aquatic Scientist Name Role Phone Jad Boone MD Primary Care Provider Reason for Visit * Reason Comments NEW PATIENT Skin cancer head, re moved in [place] Encounter Details Date Type Department Care Team (Late st Contact Info) Description 02/05/2024 10:00 AM EDT [facility] [address] [place], [place] [phone] Hermes Noble MD 27 [facility] [address] [place], [place] [phone] Open wound of auricle of left ear [...] 1 3 Active Vitamin D3 1.25 MG (61607 UT) Oral Capsule Take 1 Capsule by mouth once a week. 12 Capsule 3 3 Active Additional Information Patient taking differently:50,000 Units Oral QWEEK,Every Monday, Reported on 01/18/2024 Atorvastatin Calcium 20 MG Oral Tablet (Lipitor)Indicat ions:Coronary artery disease involving sun'aq coronary artery of sun'aq heart without angina pectoris TAKE 1 TABLET, [...] XL)Indications:C hronic diastolic CHF (congestive heart failure) ([facility]) Take 1 Tablet by mouth [...] failure with preserved ejection fraction (HFpEF) ([facility]) Take 1 Tablet by mouth [...] Tablet (Coumadin)Indica tions:PAF (paroxysmal atrial fibrillation) ([facility]) Take 1 tablet by mouth [...] all other days and as directed by [facility] 135 Tablet 1 4 024 [...] fibrillation) 10/18/2018 Coronary artery disease invo lving sun'aq coronary artery without angina pectoris 01/07/2015 [facility] current use of anticoagulant therapy 0 05/01/2014 [...] mRNA, LNP-s, No Pre serve, 2-Dose Series (Fliqz) 11/26/2020,11/05/2020 Pneumococcal Conjugate Vacc, 13 Valent (Prevnar) [...] Diagnosis Heart failure, systolic, due to CAD ([facility]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 Coronary artery disease involving sun'aq coronary artery without angina pectoris PAF (paroxysmal atrial fibrillation) ([facility]) Mild intermittent asthma without complication Other specified peripheral vascular diseases ([facility]) Chronic diastolic CHF (congestive heart failure) ([facility]) Essential hypertension with goal blood [...] earlobe Acute osteomyelitis of temporal bone ([facility]) Past Medical History: Diagnosis Date Atrial fibrillation ([facility]) 2011 Heart failure, systolic, due to CAD ([facility]) 08/28/2012 ECHO 2011 - Segmental wall abnormality, severe hypokinesis of anterior septum, anterior wall, apex,distal inferior septum, distal inferior wall, and distal posterior wall EF 33% Secondary hypercoagulable state ([facility]) 05/01/2014 Current Medications - Prior to This [...] IN THE MORNING. Vitamin D3 1.25 MG (97665 UT) Oral Capsule Take 1 Capsule by mouth once a week. Patient taking differently: Take 1 Capsule by mouth once a week. Every Monday Warfarin Sodium 5 MG Oral Tablet (Coumadin) Take 1 Tablet by mouth every evening. 2/8: 10 mg; Otherwise 5 mg every e, Wed, Mon; 7.5 mg all other days and as directed by [facility] Ofloxacin 0.3 % Otic Solution (Floxin) Administer 5 Drops into ears in the morning and 5 Drops before bedtime. Patient not taking: Reported on 02/05/2024 Not Taking Rrbsbkgke-Pursggwc-Mvdjzv Alc 2-14-10.5 % External Cream Apply to [...] performed by Dudley Hinojosa MD at [facility] IR VENOUS ACCESS NON-MEDIPORT 01/26/2024 ISLAND PEDICLE FLAP N/A 04/27/2023 ISLAND PEDICLE FLAP performed by Dudley Hinojosa MD at [facility] ISLAND PEDICLE FLAP N/A 12/12/2023 ISLAND PEDICLE FLAP performed by Gurvinder Garcia MD at [facility] REBUILD OUTER EAR CANAL Left 12/12/2023 RECONSTRUCTION EXTERNAL AUDITORY CANAL DUE TO INJURY performed by Gurvinder Garcia MD at [facility] REMOVAL OF NECK LYMPH NODES Left 04/27/2023 CERVICAL LYMPHADENECTOMY COMPLETE performed by Dudley Hinojosa MD at [facility] REMOVAL OF PAROTID GLAND/TUMOR N/A 04/27/2023 EXCISION PAROTID TOTAL WITH DISSECTION FACIAL NERVE performed by Dudley Hinojosa MD at [facility] REMOVAL OF TONSILS, AGE 12+ REPAIR HIP FRACTURE(S), W/FIXATION Right REPAIR SLIDING HERNIA REVISE MIDDLE EAR & MASTOID Left 12/12/2023 TYMPANOPLASTY MASTOIDECTOMY WITHOUT OSSICULAR RECONSTRUCTION performed by Gurvinder Garcia MDat [facility] SKIN SPLIT GRAFT, TRUNK/ARMS/LEGS N/A 12/12/2023 SPLIT GRAFT TRUNK ARM LEG LESS THAN 100SQ CM performed by Gurvinder Garcia MD at [facility] Social History: Social History Tobacco Use Smoking [...] Notes * Abby Matos RN - 02/05/2024 10:34 AM EDT 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 He refused to go back to [place] for wound care so was scheduled here in [place]. He is staying at [facility], They are doing Dakins Irrigation and DSDBID. documented in this encounter Plan of Treatment Upcoming Encounters Date Type Department Care Team (Late st Contact Info) Description 02/05/2024 5:20 PM EDT Anticoagulation Centralized Clinical Pharmacy Services, [address] [place] [address] [place] [address] [address] [facility] [place] [place] [address] PAF (paroxysmal atrial fibrillation) ([facility])* 02/08/2024 4:00 PM EDT Pharmacy Infectious Disease, [place] [address] [place] [address] Agc5, Pharmacist Infectious Disease [address] [place] [address] 02/12/2024 5:20 PM EDT Anticoagulation Centralized Clinical Pharmacy Services, [address] [place] [address] [facility] 58 60 [facility] [place] [address] 02/13/2024 9:20 AM EDT Office Visit [address] [place], [place] [phone] Jad Boone MD 4752 [facility] [address] [place] [address] 02/16/2024 10:45 AM EDT Office Visit Otolaryngology/Head & Neck/Facial Plastic Surgery [address] [place] [address] Gurvinder Garcia MD [address] [place] [address] 03/18/2024 9:40 AM EDT Office Visit [facility] [address] [place] [address] Hermes Noble MD [address] [address] 04/02/2024 9:40 AM EDT Office Visit Infectious Disease [facility] [address] [place] [phone] Rio Chun DO [address] [place] [address] 06/06/2024 9:30 AM EDT Office Visit Cardiology, [address] [address] Yas Mckinnon CRNP [address] [place] [address] 07/23/2024 9:30 AM EST Office Visit Radiation Oncology[facility] [address] [place], [place] [phone] Eros Faust MD [address] [place] [address] Health Maintenance Due Date Last Done Comments Albumin/Creatinine Ratio 1963 Hepatitis C Screening 1963 Zoster Vaccines (2 of 3) 06/26/2014 05/01/2014 *SPIROMETRY ONCE FOR ASTHMA-ADULT 07/14/2022 *NEPHROLOGY REFERRAL DUE TO RESISTANT HTN 09/25/2023 COVID-19 Vaccine ( - season) 2023 06/01/2023, 11/26/2020, 11/05/2020 Depression [...] this encounter Medical Devices Implanted Type Area Twine Reeling Machine Operator Device Identifier Shelf Expiration Date Model / Serial / Lot Connector Nerve 2mm 15mm - [id number] Implanted:Qty : 1 on 04/27/2023 by Dudley Hinojosa MD at [facility] Left: Face [employer] [id number] 12/24/2024 [id number] / / [id number] Alloderm 4x7 Thin 0.8-1.2 (28 Units) - [id number] - [id number] Implanted:Qty : 28 on 04/27/2023 by Dudley Hinojosa MD at [facility] Left: Face ABBVIE 12/18/2024 [id number] / [id number] / [id number] Sheeting Monisha 2x3in X.020in - [id number] Implanted:Qty : 1 on 04/27/2023 by Dudley Hinojosa MD at [facility] Left: Ear [employer] 09/25/2024 23-700-20 / / [id number] Sheeting Monisha 2x3 In X.005in - [id number] Implanted:Qty : 1 on 12/12/2023 by Gurvinder Garcia MD at [facility] Left: Ear [employer] 04/05/2026 23-700-05 / / [id number] Cath Pwr Picc Solo Inj 4f - [id number] Implanted:Qty : 1 on 01/26/2024 at [facility] CR BARD : ACCESS SYSTEMS [id number] 06/20/2025 [id number] / / [id number] documented as of this encounter Visit Diagnoses [...] Documents on File Type Date 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
--- OUTSIDE RECORDS SUMMARY | 2024-04-25 23:51 | External Medical Summary ---
Author Name Unknown Address Unknown Organization K1F:LABORATORY [facility] - [address] [place] [address] Laboratory Report Ordering Provider Test Date Status SENG GARCIA 02/08/2024 04:27:00 Final Observation Date Value Abnormality Reference (Units ) Status CRP, low-sensitivity 02/08/2024 04:27:00 4 <=5 (mg/L) Final Performing Location [facility]ATORY [facility] - [address] [place] [address]
--- OUTSIDE RECORDS SUMMARY | 2024-04-25 23:51 | External Medical Summary | Summary of Care ---
Author Name Unknown Organization [facility] Address [address] [place] [address] Phone [phone] Care Team Providers Care Television Service Engineer Name Role Phone Jad Boone MD Primary Care Provider Reason for Visit * Reason Comments Dosage Adjustment Via Phone (anticoag Cl inic) Encounter Details Date Type Department Care Team (Late st Contact Info) Description 01/29/2024 5:00 PM EDT Pharmacy Infectious Disease, [place] [address] [place] [id number] Agc5, Pharmacist Infectious Disease [address] [place] [address] Encounter for therapeutic drug level monitoring*; MRSA [...] 1 11/15/2022 Active Vitamin D3 1.25 MG (12241 UT) Oral Capsule Take 1 Capsule by mouth once a week. 12 Capsule 3 01/30/2023 Active Additional Information Patient taking differently:50,000 Units Oral QWEEK,Every Monday, Reported on 01/18/2024 Atorvastatin Calcium 20 MG Oral Tablet (Lipitor)Indicatio ns:Coronary artery disease involving angoon coronary artery of angoon heart without angina pectoris TAKE 1 TABLET, BY MOUTH, IN THE MORNING. 90 Tablet 1 03/04/2023 Active Acetaminophen 325 MG Oral Tablet (Tylenol) Take 2 Tablets by mouth every 6 hours as needed for Pain, Mild. 30 Tablet 04/03/2023 Active Multivitamin Adult Oral Tablet Take by mouth every evening. Active Furosemide 20 MG Oral Tablet (Lasix)Indications :Chronic diastolic CHF (congestive heart failure) ([facility]) Take 2 Tablets by mouth in the morning. 180 Tablet 1 08/15/2023 Active Metoprolol Succinate ER 25 MG Oral Tablet Extended Release 24 Hour (Toprol XL)Indications:Chr onic diastolic CHF (congestive heart failure) ([facility]) Take 1 Tablet by mouth [...] failure with preserved ejection fraction (HFpEF) ([facility]) Take 1 Tablet by mouth [...] Tablet (Coumadin)Indicati ons:PAF (paroxysmal atrial fibrillation) ([facility]) Take 1 Tablet by mouth every evening. 2/8: 10 mg; Otherwise 5 mg every Tue, Wed, Fri; 7.5 mg all other days and as directed by [facility] 135 Tablet 1 01/02/2024 Active amLODIPine [...] fibrillation) 10/18/2018 Coronary artery disease invo lving angoon coronary artery without angina pectoris 01/07/2015 [facility] [...] pleural effusion 05/01/2014 01/07/2015 Atrial fibrillation 08/28/2012 08/29/20 19 Cellulitis and abscess of leg, except [...] as of this encounter Progress Notes * Kim King, [facility] - 01/29/2024 5:21 PM EDT [facility] OUT[facility]ARMACOKINETIC CONSULT [address] [place] [address] Name: Stephen Varela Date/Time: 01/29/2024 5:21 PM Patient on Outpatient Parenteral Antimicrobial Therapy with monitoring and management by [facility] Pharmacist under Collaborative Practice Agreement with [facility] physician Dr. Laura Arambula. 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 At this time we recommend a regimen of 1500 mg IV every 24 hours, which is predicted to result in a steady-state trough of 14.8 mg/Land AUC24 of 546 mg/L.hr. 01/29/2024 Discussed discharge orders and plan of care with Lucille Confirmed dosing from hospital and standing labs Patient already had labs this morning that I was able to review Hold 01/29/2024 evening vancomycin Start 01/30/2024 with a decrease to Vancomycin 1500 mg q24h They will change dose to be given between 7am and 8am now Labs will be drawn on 02/01/2024 ID [facility] will review again on 02/01/2024 in the afternoon Contact info for questions/concerns: [facility] Pharmacist at [phone] Kim King PharmD, [facility] Coordinator, Acute Pharmacy Services [facility] 01/29/2024, 5:21 PM documented in this encounter Plan of Treatment Upcoming Encounters Date Type Department Care Team (Late st Contact Info) Description 02/01/2024 4:00 PM EDT Pharmacy Infectious Disease, [place] [address] [place] [address] Agc5, Pharmacist Infectious Disease [facility] [place] [address] 02/05/2024 5:20 PM EDT Anticoagulation Centralized Clinical Pharmacy Services, [place] [address] [place] [address] [facility] 58 60 [facility] [place] [address] 02/13/2024 9:20 AM EDT Office Visit [place] [address] [address] [place] [address] Jad Boone MD 4752 [facility] [address] [place] [address] 02/16/2024 10:45 AM EDT Office Visit Otolaryngology/Head & Neck/Facial Plastic Surgery [address] [place] [address] Gurvinder Garcia MD [address] [place] [address] 04/02/2024 10:40 AM EDT Office Visit Infectious Disease, [place] [address] [place] [address] Laura Arambula MD [address] [place] [phone] 06/06/2024 9:30 AM EDT Office Visit Cardiology, [place] [address] [place] [address] Yas Mckinnon CRNP [address] [place] [address] 07/23/2024 9:30 AM EST Office Visit Radiation Oncology, [facility] [address] [place] [address] Eros Faust MD [address] [place] [address] Health Maintenance Due Date Last Done Comments Albumin/Creatinine Ratio 1963 Hepatitis C Screening 1963 Zoster Vaccines (2 of 3) 06/26/2014 05/01/2014 *SPIROMETRY ONCE FOR ASTHMA-ADULT 07/14/2022 *NEPHROLOGY REFERRAL DUE TO RESISTANT HTN 09/25/2023 COVID-19 Vaccine ( season) 2023 06/01/2023, 06/01/2023, 06/09/2022, Additional history exists Depression Screening 09/18/2024 09/18/2023 GFR 01/28/2025 01/29/2024, 03/2024, 01/26/2024, Additional history exists DTaP,Tdap,and Td [...] this encounter Medical Devices Implanted Type Area Supervisor Blood Donor Recruiters Device Identifier Shelf Expiration Date Model / Serial / Lot Connector Nerve 2mm 15mm - [id number] Implanted:Qty : 1 on 04/27/2023 by Dudley Hinojosa MD at [facility] Left: Face [employer] [id number] 12/24/2024 [id number] / / [id number] Alloderm 4x7 Thin 0.8-1.2 (28 Units) - [id number] - [id number] Implanted:Qty : 28 on 04/27/2023 by Dudley Hinojosa MD at [facility] Left: Face ABBVIE 12/18/2024 [id number] / [id number] / [id number] Sheeting Monisha 2x3in X.020in - [id number] Implanted:Qty : 1 on 04/27/2023 by Dudley Hinojosa MD at [facility] Left: Ear [employer]IED [employer] 09/25/2024 / / [id number] Sheeting Monisha 2x3 In X.005in - [id number] Implanted:Qty : 1 on 12/12/2023 by Gurvinder Garcia MD at [facility] Left: Ear [employer]IED BI[employer] 04/05/2026 / [id number] Cath Pwr Picc Solo Inj 4f - [id number] Implanted:Qty : 1 on 01/26/[address] 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
--- OUTSIDE RECORDS SUMMARY | 2024-04-25 23:51 | External Medical Summary ---
Author Name Unknown Address Unknown Organization K1F:LABORATORY [facility] - [address] [place] [address] Laboratory Report Ordering Provider Test Date Status SENG GARCIA 02/05/2024 06:41:00 Final Observation Date Value Abnormality Reference (Units ) Status WBC, Total 02/05/2024 06:41:00 7.40 4.00-10.80 (K/uL) Final RBC 02/05/2024 06:41:00 3.81 4.50-5.25 (M/uL) Final Hemoglobin 02/05/2024 06:41:00 10.1 Below low normal 14.0-16.8 (g/dL) Final HCT 02/05/2024 06:41:00 33.7 Below low normal 40.0-48.4 (%) Final MCV 02/05/2024 06:41:00 88.5 82.0-99.5 (fL) Final MCH 02/05/2024 06:41:00 26.5 27.0-34.0 (pg) Final MCHC 02/05/2024 06:41:00 30.0 32.0-36.0 (g/dL) Final RDW 02/05/2024 06:41:00 17.4 11.5-15.5 (%) Final Platelets 02/05/2024 06:41:00 143 140-400 (K/uL) Final MPV 02/05/2024 06:41:00 10.7 6.6-11.1 (fL) Final Nucleated erythrocytes/100 leukocytes [Ratio] in Blood by Automated count 02/05/2024 06:41:00 0 <=0 (/100 WBCs) Final Performing Location LAB[facility]ATORY [facility] - [address] [place] [address]
--- OUTSIDE RECORDS SUMMARY | 2024-04-25 23:51 | External Medical Summary ---
Author Name Unknown Address Unknown Organization K1F:LABORATORY [facility] - [address] [place] [address] Laboratory Report Ordering Provider Test Date Status SENG GARCIA 02/08/2024 04:27:00 Final Observation Date Value Abnormality Reference (Units ) Status Vancomycin, level 02/08/2024 04:27:00 18.7 10 .0-40.0 (ug/mL) Final Performing Location LAB[facility]ATORY [facility] - [address] [place] [address]
--- OUTSIDE RECORDS SUMMARY | 2024-04-25 23:51 | External Medical Summary | Summary of Care ---
Author Name Unknown Organization [facility] Address [address] [place] [place] [address] Phone [phone] Care Team Providers Care Cleaner Housekeeping Name Role Phone Jad Boone MD Primary Care Provider Reason for Visit * Reason Comments Dosage Adjustment Via Phone (anticoag Cl inic) Encounter Details Date Type Department Care Team (Latest Contact Info) Description 01/29/2024 5:20 PM EDT Anticoagulation Centralized Clinical Pharmacy Services, Sandra [address] [place] [address] [facility] 58 60 [facility] [place] [address] PAF (paroxysmal atrial fibrillation) ([facility])* Allergies Active Allergy Reactions Criticality Noted Date Comments Bee Venom Hives High 03/14/2017 documented as of this encounter (statuses as of 01/29/2024) Medications Medication Sig Dispensed Refills Start Date End Date Status Omeprazole 20 MG Oral Capsule Delayed Release (PriLOSEC) Take 1 Capsule by mouth in the morning. 90 Capsule 1 11/15/2022 Active Vitamin D3 1.25 MG (58462 UT) Oral Capsule Take 1 Capsule by mouth once a week. 12 Capsule 3 01/30/2023 Active Additional Information Patient taking differently:50,000 Units Oral QWEEK,Every Monday, Reported on 01/18/2024 Atorvastatin Calcium 20 MG Oral Tablet (Lipitor)Indicatio ns:Coronary artery disease involving skag[place] coronary artery of [place] heart without angina pectoris TAKE 1 TABLET, BY MOUTH, IN THE MORNING. 90 Tablet 1 03/04/2023 Active Acetaminophen 325 MG Oral Tablet (Tylenol) Take 2 Tablets by mouth every 6 hours as needed for Pain, Mild. 30 Tablet 04/03/2023 Active Multivitamin Adult Oral Tablet Take by mouth every evening. Active Furosemide 20 MG Oral Tablet (Lasix)Indications :Chronic diastolic CHF (congestive heart failure) ([facility]) Take 2 Tablets by mouth in the morning. 180 Tablet 1 08/15/2023 Active Metoprolol Succinate ER 25 MG Oral Tablet Extended Release 24 Hour (Toprol XL)Indications:Chr onic diastolic CHF (congestive heart failure) ([facility]) Take 1 Tablet by mouth in [...] with preserved ejection fraction (HFpEF) ([facility]) Take 1 Tablet by mouth in [...] Oral Tablet (Coumadin)Indicati ons:PAF (paroxysmal atrial fibrillation) ([facility]) Take 1 Tablet by mouth every evening. 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 Medication Therapy Disease Management - Anticoagulation Patient: Stephen Varela | : 1945 Subjective Alf/SNF Patient Anticoagulation Encounter Patient is a resident at: [facility] ([place], [place]) -- Fax sent to number listed above [...] Dosing Information: Description Call patient while at [facility] ([place], [place]) AND fax Facility at [phone] Cefepime and Vanco until 03/07/24 (getting weekly labs) pt started multivitamin around beginning of October Rosie Kline RPh Clinical Pharmacist 01/29/2024, 9:36 AM documented in this encounter Plan of Treatment Upcoming Encounters Date Type Department Care Team (Late st Contact Info) Description 02/05/2024 5:20 PM EDT Anticoagulation Centralized Clinical Pharmacy Services, Sandra Gómez [address] [place] [address] [place] [address] [facility] 58 60 [facility] [place] [address] 02/13/2024 9:20 AM EDT Office Visit [place] [address] [facility] [address] Jad Boone MD [address] [place] [address] 02/16/2024 10:45 AM EDT Office Visit Otolaryngology/Head & Neck/Facial Plastic Surgery [address] [place] [address] Gurvinder Garcia MD [address] [place] [address] 04/02/2024 10:40 AM EDT Office Visit Infectious Disease, [place] [address] [place] [address] Laura Arambula MD [address] [place] [id number] 06/06/2024 9:30 AM EDT Office Visit Cardiology, [place] [address] [place] [address] Yas Mckinnon CRNP [address] [place] [address] 07/23/2024 9:30 AM EST Office Visit Radiation Oncology, [facility] [address] [place] [address] Eros Faust MD [address] [place], [place] [phone] Health Maintenance Due Date Last Done Comments [...] this encounter Medical Devices Implanted Type Area Model And Mold Maker Device Identifier Shelf Expiration Date Model / Serial / Lot Connector Nerve 2mm 15mm - [id number] Implanted:Qty : 1 on 04/27/2023 by Dudley Hinojosa MD [place] [facility] [place] Left: Face [employer] [id number] 12/24/2024 [id number] / / [id number] Alloderm 4x7 Thin 0.8-1.2 (28 Units) - [id number] - [id number] Implanted:Qty : 28 on 04/27/2023 by Dudley Hinojosa MD at [place] [facility] [place] Left: Face ABBVIE 12/18/2024 [id number] / [id number] / [id number] Sheeting Monisha 2x3in X.020in - [id number] Implanted:Qty : 1 on 04/27/2023 by Dudley Hinojosa MD at [place] [facility] [place] Left: Ear [employer] 09/25/2024 / [id number] Sheeting Monisha 2x3 In X.005in - [id number] Implanted:Qty : 1 on 12/12/2023 by Gurvinder Garcia MD at [place] [facility] [place] Left: Ear [employer] 04/05/2026 / [id number] Cath Pwr Picc Solo Inj 4f - [id number] Implanted:Qty : 1 on 01/26/2024 at [facility] CR BARD : ACCESS SYSTEM[employer] [id number] 06/20/2025 [id number] / / [id number] documented as of this encounter Visit Diagnoses Diagnosis PAF (paroxysmal atrial fibrillation) (HCC)- Primary Atrial fibrillation 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 documented as of this encounter Advance Directives Documents on File Type Date Recorded 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
--- OUTSIDE RECORDS SUMMARY | 2024-04-25 23:51 | External Medical Summary ---
Author Name Unknown Address Unknown Organization K1F:[facility] - [address] [place] [address] Laboratory Report Ordering Provider Test Date Status SENG GARCIA 02/05/2024 06:41:00 Final Observation Date Value Abnormality Reference (Units ) Status BUN 02/05/2024 06:41:00 31 Above high normal 6-20 (mg/dL) Final Creatinine 02/05/2024 06:41:00 1.2 0.6-1.2 (mg/dL) Final Glomerular filtration rate/1.73 sq M.predicted [Volume Rate/Area] in Serum, Plasma or Blood by Creatinine-based formula (CKD-EPI) 02/05/2024 06:41:00 66 >=60 (mL/min) Final eGFR is calculated based on the CKD-EPI 2020 equation Sodium 02/05/2024 06:41:00 141 135-146 (m mol/L) Final Potassium 02/05/2024 06:41:00 4.7 3.5-5.1 (m mol/L) Final Cl 02/05/2024 06:41:00 104 98-107 (mm ol/L) Final CO2 02/05/2024 06:41:00 25 22-32 (mmo l/L) Final Anion gap 02/05/2024 06:41:00 12 7-15 (mmol /L) Final Glucose 02/05/2024 06:41:00 97 70-120 (mg /dL) Final Calcium 02/05/2024 06:41:00 9.8 8.4-10.2 ( mg/dL) Final Performing Location [facility] - [address] [place] [address]
--- OUTSIDE RECORDS SUMMARY | 2024-04-25 23:51 | External Medical Summary ---
Author Name Unknown Address Unknown Organization K1F:LABORATORY [facility] - [address] [place] [address] Laboratory Report Ordering Provider Test Date Status SENG GARCIA 02/08/2024 04:27:00 Final Observation Date Value Abnormality Reference (Units ) Status WBC, Total 02/08/2024 04:27:00 7.10 4.00-10.80 (K/uL) Final RBC 02/08/2024 04:27:00 3.80 4.50-5.25 (M/uL) Final Hemoglobin 02/08/2024 04:27:00 10.4 Below low normal 14.0-16.8 (g/dL) Final HCT 02/08/2024 04:27:00 33.8 Below low normal 40.0-48.4 (%) Final MCV 02/08/2024 04:27:00 88.9 82.0-99.5 (fL) Final MCH 02/08/2024 04:27:00 27.4 27.0-34.0 (pg) Final MCHC 02/08/2024 04:27:00 30.8 32.0-36.0 (g/dL) Final RDW 02/08/2024 04:27:00 17.3 11.5-15.5 (%) Final Platelets 02/08/2024 04:27:00 136 Below low normal 140-400 (K/uL) Final MPV 02/08/2024 04:27:00 10.4 6.6-11.1 (fL) Final Nucleated erythrocytes/100 leukocytes [Ratio] in Blood by Automated count 02/08/2024 04:27:00 0 <=0 (/100 WBCs) Final Performing Location LABORATORY [facility] - [address] [place] [address]
--- OUTSIDE RECORDS SUMMARY | 2024-04-25 23:51 | External Medical Summary | Summary of Care ---
Author Name Unknown Organization [facility] Address [address] [facility] [address] Phone [phone] Care Team Providers Care Wood Miller Name Role Phone Jad Boone MD Primary Care Provider Reason for Visit * Reason Comments Dosage Adjustment Via Phone (anticoag Cl inic) Encounter Details Date Type Department Care Team (Latest Contact Info) Description 01/29/2024 5:20 PM EDT Anticoagulation Centralized Clinical Pharmacy Services, Sandra [address] [place] [address] [facility] 58 60 [facility] [place] [address] PAF (paroxysmal atrial fibrillation) ([facility])* Allergies Active Allergy Reactions Criticality Noted Date Comments Bee Venom Hives High 03/14/2017 documented as of this encounter (statuses as of 01/29/2024) Medications Medication Sig Dispensed Refills Start Date End Date Status Omeprazole 20 MG Oral Capsule Delayed Release (PriLOSEC) Take 1 Capsule by mouth in the morning. 90 Capsule 1 11/15/2022 Active Vitamin D3 1.25 MG (37321 UT) Oral Capsule Take 1 Capsule by mouth once a week. 12 Capsule 3 01/30/2023 Active Additional Information Patient taking differently:50,000 Units Oral QWEEK,Every Monday, Reported on 01/18/2024 Atorvastatin Calcium 20 MG Oral Tablet (Lipitor)Indicatio ns:Coronary artery disease involving ely shoshone coronary artery of ely sh[place]one heart without angina pectoris TAKE 1 TABLET, BY MOUTH, IN THE MORNING. 90 Tablet 1 03/04/2023 Active Acetaminophen 325 MG Oral Tablet (Tylenol) Take 2 Tablets by mouth every 6 hours as needed for Pain, Mild. 30 Tablet 04/03/2023 Active Multivitamin Adult Oral Tablet Take by mouth every evening. Active Furosemide 20 MG Oral Tablet (Lasix)Indications :Chronic diastolic CHF (congestive heart failure) ([facility]) Take 2 Tablets by mouth in the morning. 180 Tablet 1 08/15/2023 Active Metoprolol Succinate ER 25 MG Oral Tablet Extended Release 24 Hour (Toprol XL)Indications:Chr onic diastolic CHF (congestive heart failure) ([facility]) Take 1 Tablet by mouth [...] heart failure with preserved ejection fraction (HFpEF) ([facility]) Take 1 Tablet by mouth [...] Oral Tablet (Coumadin)Indicati ons:PAF (paroxysmal atrial fibrillation) ([facility]) Take 1 Tablet by mouth every evening. 2/8: 10 mg; Otherwise 5 mg every Tue, Wed, Fri; 7.5 mg all other days and as directed by [facility] 135 Tablet 1 01/02/2024 Active [...] fibrillation) 10/18/2018 Coronary artery disease invo lving ely shoshone coronary artery without angina pectoris 01/07/2015 terminal [...] of this encounter Progress Notes * Alyson Mustafa CPhT - 01/29/2024 10:26 AM EDT Contacts Type Contact Phone/Fax 01/29/2024 10:24 AM EDT Phone (Outgoing) Stephen Varela (Self) [phone] (M) Left Message Subjective Patient Findings Positives: Change in medications (Discharged [...] to complete 6 weeks of Abx total Advised patient to contact Anticoagulation Clinic if any unusual bruising or bleeding, recent illness, changes in medication, or questions/concerns. PT/INR results, Coumadin dose instructions, and next PT/INR date communicated as noted by Pharmacist: Yes Alyson Mustafa CPhT 01/29/2024, 10:26 AM * Rosie Kline [facility] - 01/29/2024 9:36 AM EDT Images from the original note were not included. Medication Therapy Disease Management - Anticoagulation Patient: Stephen Varela | : 1945 Subjective Snf/SNF Patient Anticoagulation Encounter Patient is a resident at: [facility] -- Fax sent to number listed above [...] Dosing Information: Description Call patient while at [facility] AND fax Facility at [phone] Cefepime and Vanco until 03/07/24 (getting weekly labs) pt started multivitamin around beginning of October Rosie Kline [facility] Clinical Pharmacist 01/29/2024, 9:36 AM documented in this encounter Plan of Treatment Upcoming Encounters Date Type Department Care Team (Late st Contact Info) Description 02/05/2024 5:20 PM EDT Anticoagulation Centralized Clinical Pharmacy Services, Sandra [address] [place] [address] [facility] 58 60 [facility] [place] [address] 02/13/2024 9:20 AM EDT Office Visit [place] [address] [place] [address] Jad Boone MD [facility]2 [facility] [address] [place] [address] 02/16/2024 10:45 AM EDT Office Visit Otolaryngology/Head & Neck/Facial Plastic Surgery [address] [place] [address] Gurvinder Garcia MD [address] [place] [address] 04/02/2024 10:40 AM EDT Office Visit Infectious Disease, [place] [address], [place] [phone] Laura Arambula MD [address] [place] [address] 06/06/2024 9:30 AM EDT Office Visit Cardiology, [place] [address] [place] [address] Yas Mckinnon CRNP [address] [place] [address] 07/23/2024 9:30 AM EST Office Visit Radiation Oncology, [facility] [address] [place] [address] Eros Faust MD [address] [place] [address] Health Maintenance Due Date Last Done Comments [...] this encounter Medical Devices Implanted Type Area Managing Broker Device Identifier Shelf Expiration Date Model / Serial / Lot Connector Nerve 2mm 15mm - [id number] Implanted:Qty : 1 on 04/27/2023 [place] [facility] [place] Face [employer] [id number] 12/24/2024 [id number] / / [id number] Alloderm 4x7 Thin 0.8-1.2 (28 Units) - [id number] - [id number] Implanted:Qty : 28 on 04/27/2023 by Dudley Hinojosa MD [place] [facility] [place] Face ABBVIE 12/18/2024 [id number] / [id number] / [id number] Sheeting Monisha 2x3in X.020in - [id number] Implanted:Qty : 1 on 04/27/2023 by Dudley Hinojosa MD [place] [facility] [place]: Ear [employer] 09/25/2024 / / [id number] Sheeting Monisha 2x3 In X.005in - [id number] Implanted:Qty : 1 on 12/12/2023 by Gurvinder Garcia MD [place] [facility] [place] Ear [employer] 04/05/2026- / / [id number] Cath Pwr Picc Solo Inj 4f - [id number] Implanted:Qty : 1 on 01/26/2024 at [facility] CR BARD : ACCESS SYSTEMS [id number] 06/20/2025 [id number] / / [id number] documented as of this encounter Visit Diagnoses Diagnosis PAF (paroxysmal atrial fibrillation) (HCC)- Primary Atrial fibrillation 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
--- OUTSIDE RECORDS SUMMARY | 2024-04-25 23:51 | External Medical Summary ---
Author Name Unknown Address Unknown Organization K1F:LAB[facility]ATORY [facility] - [address] [address] Laboratory Report Ordering Provider Test Date Status RADHAKEZIALUISANA 02/05/2024 06:41:00 Final Observation Date Value Abnormality Reference (Units ) Status CRP, low-sensitivity 02/05/2024 06:41:00 5 <=5 (mg/L) Final Performing Location [facility] - [address] [address]
--- OUTSIDE RECORDS SUMMARY | 2024-04-25 23:51 | External Medical Summary ---
Author Name Unknown Address Unknown Organization K1F:LABORATORY [facility] - [address] [address] Laboratory Report Ordering Provider Test Date Status RADHAKEZIALUISANA 02/01/2024 06:35:00 Final Observation Date Value Abnormality Reference (Units ) Status CRP, low-sensitivity 02/01/2024 06:35:00 13 Above high normal <=5 (mg/L) Final Performing Location [facility] - [address] [place] [address]
--- OUTSIDE RECORDS SUMMARY | 2024-04-25 23:51 | External Medical Summary | Summary of Care ---
Author Name Unknown Organization [facility] Address [address] [place] [address] Phone [phone] Care Team Providers Care Ingredient Scaler Name Role Phone Jad Boone MD Primary Care Provider Reason for Visit * Reason Comments Dosage Adjustment Via Phone (anticoag Cl inic) Encounter Details Date Type Department Care Team (Latest Contact Info) Description 02/05/2024 5:20 PM EDT Anticoagulation Centralized Clinical Pharmacy Services, Sandra Gómez [address] [place] [address] [place] [address] [facility] 58 60 [facility] [place] [address] PAF (paroxysmal atrial fibrillation) ([facility])* Allergies Active Allergy Reactions Criticality Noted Date Comments Bee Venom Hives High 03/14/2017 documented as of this encounter (statuses as of 02/05/2024) Medications Medication Sig Dispensed Refills Start Date End Date Status Omeprazole 20 MG Oral Capsule Delayed Release (PriLOSEC) Take 1 Capsule by mouth in the morning. 90 Capsule 1 3 Active Vitamin D3 1.25 MG (63255 UT) Oral Capsule Take 1 Capsule by mouth once a week. 12 Capsule 3 3 Active Additional Information Patient taking differently:50,000 Units Oral QWEEK,Every Monday, Reported on 01/18/2024 Atorvastatin Calcium 20 MG Oral Tablet (Lipitor)Indicat ions:Coronary artery disease involving [place] coronary artery of [place] heart without angina pectoris TAKE 1 TABLET, [...] Drops before bedtime. 103.317 mL 4 Active oxyCODONE HCl 5 MG Oral [...] 09/28: 10 mg; Otherwise 5 mg every Mon, Mon, Mon; 7.5 mg all other days and as directed by [facility] 135 Tablet 1 4 Discontinued documented as of this encounter [...] fibrillation) 10/18/2018 Coronary artery disease invo lving [place] coronary artery without angina pectoris 01/07/2015 senior [...] mRNA, LNP-s, No Pre serve, 2-Dose Series (Subtextual) 11/26/2020,11/05/2020 Pneumococcal Conjugate Vacc, 13 Valent (Prevnar) [...] as of this encounter Progress Notes * Tamika Darden PHARM Tech - 02/05/2024 10:50 AM EDT Contacts Type Contact Phone/Fax 02/05/2024 10:49 AM EDT Phone (Outgoing) Stephen Varela (Self) [phone] (M) Left Message Subjective Advised patient to contact Anticoagulation Clinic if any unusual bruising or bleeding, recent illness, changes in medication, or questions/concerns. PT/INR results, Coumadin dose instructions, and next PT/INR date communicated as noted by Pharmacist: Yes ARMANDO GOMEZ 02/05/2024, 10:51 AM * Alyson Salinas RPh - 02/05/2024 10:32 AM EDT Images from the original note were not included. Coumadin Clinic (region specific) Objective Current Warfarin Dose As of 02/05/2024 Warfarin maintenance plan: 5 mg (1 mg x 5) every Fri; 7.5 mg (1 mg x 7.5) all other days INR Result As of 02/05/2024 INR goal: 2.0-3.0 INR used for dosin.8 (02/05/2024) Assessment & Plan Warfarin Plan As of 02/05/2024 Full warfarin instructions: 02/04: 10 mg; Otherwise 7.5 mg every day Next INR check: 02/12/2024 Repeat PT/INR in 1 week(s) Weekly dose: increased Additional Dosing Information: Description Call patient while at [facility] AND fax Facility at [phone] Cefepime and Vanco until 03/07/24 (getting weekly labs) pt started multivitamin around beginning of October Tech to contact patient with dose instructions as noted. Alyson Salinas RPh 02/05/2024, 10:32 AM documented in this encounter Plan of Treatment Upcoming Encounters Date Type Department Care Team (Late st Contact Info) Description 02/08/2024 4:00 PM EDT Pharmacy Infectious Disease, [place] [address] [place] [address] Agc5, Pharmacist Infectious Disease [address] [place] [address] 02/12/2024 5:20 PM EDT Anticoagulation Centralized Clinical Pharmacy Services, Sandra Gómez [address] [place] [address] [place] [address] [facility] 58 60 [facility] [place] [address] 02/13/2024 9:20 AM EDT Office Visit [facility] [address] [place] [address] Jad Boone MD [address] [facility] [address] [place] [address] 02/16/2024 10:45 AM EDT Office Visit Otolaryngology/Head & Neck/Facial Plastic Surgery [address] [place] [address] Gurvinder Garcia MD [address] [place] [address] 03/18/2024 9:40 AM EDT Office Visit Wound Care, [facility] [address] [place] [address] Hermes Noble MD [address] [address] 04/02/2024 9:40 AM EDT Office Visit Infectious Disease [facility] [address] [place] [phone] Rio Chun DO [address] [place] [address] 06/06/2024 9:30 AM EDT Office Visit Cardiology, [place] [address] [place] [address] Yas Mckinnon CRNP [address] [place] [address] 07/23/2024 9:30 AM EST Office Visit Radiation Oncology, [facility] [address] [place] [address] Eros Faust MD [address] [place], [place] [phone] Health Maintenance Due Date Last Done Comments [...] this encounter Medical Devices Implanted Type Area Welder Production Line Combination Device Identifier Shelf Expiration Date Model / Serial / Lot Connector Nerve 2mm 15mm - [id number] Implanted:Qty : 1 on 04/27/2023 by Dudley Hinojosa MD at OR [facility] Left: Face [employer] [id number] 12/24/2024 [id number] / / [id number] Alloderm 4x7 Thin 0.8-1.2 (28 Units) - [id number] - [id number] Implanted:Qty : 28 on 04/27/2023 by Dudley Hinojosa MD at OR [facility] Left: Face ABBVIE 12/18/2024 [id number] / [id number] / [id number] Sheeting Monisha 2x3in X.020in - [id number] Implanted:Qty : 1 on 04/27/2023 by Dudley Hinojosa MD at OR [facility] Left: Ear [employer] 09/25/2024 / [id number] Sheeting Monisha 2x3 In X.005in - [id number] Implanted:Qty : 1 on 12/12/2023 by Gurvinder Garcia MD at OR [facility] Left: Ear [employer] 04/05/2026 / [id number] Cath Pwr Picc Solo Inj 4f - [id number] Implanted:Qty : 1 on 01/26/2024 at [facility] CR BARD : ACCESS SYSTEMS [id number] 06/20/2025 [id number] / / [id number] documented as of this encounter Visit Diagnoses Diagnosis PAF (paroxysmal atrial fibrillation) (HCC)- Primary Atrial fibrillation 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 documented as of this encounter Advance Directives Documents on File Type Date 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
--- OUTSIDE RECORDS SUMMARY | 2024-04-25 23:51 | External Medical Summary ---
Author Name Unknown Address Unknown Organization K1F:LABORATORY [facility] - [address] [address] Laboratory Report Ordering Provider Test Date Status SENG GARCIA 02/08/2024 04:27:00 Final Warfarin Therapy
INR: 2 .0-3.0 conventional anticoagulation
INR: 2.5- 3.5 high intensity anticoagulation Observation Date Value Abnormality Reference (Units ) Status PT 02/08/2024 04:27:00 19.7 Above high normal 11 .6-15.2 (seconds) Final INR 02/08/2024 04:27:00 1.7 Above high normal 0. 8-1.2 Final Performing Location LABORATORY [facility] - [address] [address]
--- OUTSIDE RECORDS SUMMARY | 2024-04-25 23:51 | External Medical Summary ---
Author Name Unknown Address Unknown Organization K1F:LABORATORY [facility] - [address] [facility]. [place] [address] Laboratory Report Ordering Provider Test Date Status SENG GARCIA 02/08/2024 04:27:00 Final Observation Date Value Abnormality Reference (Units ) Status SYNC LEUKOCYTES IN BLOOD BY AUTOMATED COUNT 02/08/2024 04:27:00 7.10 4.00-10.80 (K/uL) Final Segs 02/08/2024 04:27:00 70.4 40.0-75.0 (%) Final Lymphs % 02/08/2024 04:27:00 9.6 Below low normal 18.0-42.0 (%) Final Monos 02/08/2024 04:27:00 9.0 1.0-11.0 (%) Final Eosinophils 02/08/2024 04:27:00 9.6 Above high normal 0.0-6.0 (%) Final Basos 02/08/2024 04:27:00 1.1 0.0-2.0 (%) Final Immature Granulocyte, Percent 02/08/2024 04:27:00 0.3 0.0-2.0 (%) Final Absolute Segs 02/08/2024 04:27:00 5.00 1.80-7.70 (K/uL) Final Lymphs, absolute 02/08/2024 04:27:00 0.68 Below low normal 1.00-4.80 (K/ul) Final Monos, Abs 02/08/2024 04:27:00 0.64 0.00-1.10 (K/uL) Final Eos, Abs 02/08/2024 04:27:00 0.68 0.00-0.70 (K/uL) Final Basos, Abs 02/08/2024 04:27:00 0.08 0.00-0.20 (K/uL) Final Immature Granulocytes, Number 02/08/2024 04:27:00 0.02 0.00-0.20 (K/uL) Final Performing Location LABORATORY [facility] - [address] [place], [place] [address]. [place] [id number]
--- OUTSIDE RECORDS SUMMARY | 2024-04-25 23:51 | External Medical Summary ---
Author Name Unknown Address Unknown Organization K1F:LABORATORY [facility] - [address] [facility]. [place] [address] Laboratory Report Ordering Provider Test Date Status SENG GARCIA 02/08/2024 04:27:00 Final Observation Date Value Abnormality Reference (Units ) Status BUN 02/08/2024 04:27:00 30 Above high normal 6-20 (mg/dL) Final Creatinine 02/08/2024 04:27:00 1.2 0.6-1.2 (mg/dL) Final Glomerular filtration rate/1.73 sq M.predicted [Volume Rate/Area] in Serum, Plasma or Blood by Creatinine-based formula (CKD-EPI) 02/08/2024 04:27:00 61 >=60 (mL/min) Final eGFR is calculated based on the CKD-EPI 2020 equation Sodium 02/08/2024 04:27:00 140 135-146 (m mol/L) Final Potassium 02/08/2024 04:27:00 4.3 3.5-5.1 (m mol/L) Final Cl 02/08/2024 04:27:00 103 98-107 (mm ol/L) Final CO2 02/08/2024 04:27:00 27 22-32 (mmo l/L) Final Anion gap 02/08/2024 04:27:00 10 7-15 (mmol /L) Final Glucose 02/08/2024 04:27:00 90 70-120 (mg /dL) Final Albumin 02/08/2024 04:27:00 3.9 3.8-5.0 (g /dL) Final AST (Aspartate aminotransferase) 02/08/2024 04:27:00 16 10-50 (U/L) Final Alk Phos 02/08/2024 04:27:00 94 35-130 (U/ L) Final Bilirubin, Total 02/08/2024 04:27:00 0.3 <=1 .2 (mg/dL) Final Calcium 02/08/2024 04:27:00 9.8 8.4-10.2 ( mg/dL) Final Protein 02/08/2024 04:27:00 6.7 6.0-8.3 (g /dL) Final ALT (Alanine aminotransferase) 02/08/2024 04:27:00 13 10-50 (U/L) Final Performing Location LABORATORY [facility] - [facility] [place] [place] [address]
--- OUTSIDE RECORDS SUMMARY | 2024-04-25 23:51 | External Medical Summary | Summary of Care ---
Author Name Unknown Organization [facility] Address [address] [place] [address] Phone [phone] Care Team Providers Care It Auditor Name Role Phone Jad Boone MD Primary Care Provider Reason for Visit * Reason Onset Date Comments Fax 02/05/2024 [place] Encounter Details Date Type Department Care Team (Late st Contact Info) Description 02/05/2024 Telephone Wound Care, [facility] [address] [place] [address] Hermes Noble MD [address] [facility] [address] [place] [address] Fax ([place]) Allergies Active Allergy Reactions Criticality Noted Date Comments Bee Venom Hives High 03/14/2017 documented as of this encounter (statuses as of 02/05/2024) Medications Medication Sig Dispensed Refills Start Date End Date Status Omeprazole 20 MG Oral Capsule Delayed Release (PriLOSEC) Take 1 Capsule by mouth in the morning. 90 Capsule 1 11/15/2022 Active Vitamin D3 1.25 MG (32443 UT) Oral Capsule Take 1 Capsule by mouth once a week. 12 Capsule 3 01/30/2023 Active Additional Information Patient taking differently:50,000 Units Oral QWEEK,Every Monday, Reported on 01/18/2024 Atorvastatin Calcium 20 MG Oral Tablet (Lipitor)Indicatio ns:Coronary artery disease involving [place] coronary artery of [place] heart without angina pectoris TAKE 1 TABLET, [...] onic diastolic CHF (congestive heart failure) (FORMERLY MEDICAL [...] Tablet (Coumadin)Indicati ons:PAF (paroxysmal atrial fibrillation) ([facility]) Take 1 tablet by mouth on [...] fibrillation) 10/18/2018 Coronary artery disease invo lving [place] coronary artery without angina pectoris 01/07/2015 USP current use of anticoagulant therapy 0 05/01/2014 [...] mRNA, LNP-s, No Pre serve, 2-Dose Series (SalesPredict) 11/26/2020,11/05/2020 Pneumococcal Conjugate Vacc, 13 Valent (Prevnar) [...] encounter Miscellaneous Notes * Telephone Encounter - Marielle Trent OSA - 02/05/2024 1:12 PM EDT Office note from today's wound visit was faxed to [place] #[phone]. documented in this encounter Plan of Treatment Upcoming Encounters Date Type Department Care Team (Late st Contact Info) Description 02/05/2024 5:20 PM EDT Anticoagulation Centralized Clinical Pharmacy Services, Sandra Gómez [address] [place] [address] [place] [address] [facility] 58 60 [place] [address] PAF (paroxysmal atrial fibrillation) (HCC)* 02/08/2024 4:00 PM EDT [facility] [address] [place] [address] Agc5, Pharmacist Infectious Disease [address] [place] [address] 02/12/2024 5:20 PM EDT Anticoagulation Centralized Clinical Pharmacy Services, [address] [place] [address] [facility] 58 60 [place] [address] 02/13/2024 9:20 AM EDT Office Visit [place] [address] [place] [address] Jad Boone MD [address] [place], [place] [address] [address] [place] [address] 02/16/2024 10:45 AM EDT Office Visit Otolaryngology/Head & Neck/Facial Plastic Surgery [address] [place] [address] Gurvinder Garcia MD [address] [place] [address] 03/18/2024 9:40 AM EDT Office Visit Wound Care, [facility] 400 [facility] [place] [id number] Hermes Noble MD [address] [place] [address] [place], [place] [phone] 04/02/2024 9:40 AM EDT Office Visit Infectious Disease [address] [place] [address] Rio Chun, DO [address] [place] [address] 06/06/2024 9:30 AM EDT Office Visit Cardiology, [place] [address] [place] [address] Yas Mckinnon CRNP [address] [place], [place] [phone] 07/23/2024 9:30 AM EST Office Visit Radiation Oncology, [facility] [address] [place] [address] Eros Faust MD [address] [place], [place] [phone] Health Maintenance Due Date Last Done Comments [...] this encounter Medical Devices Implanted Type Area Rubber Compounder Formulator Device Identifier Shelf Expiration Date Model / Serial / Lot Connector Nerve 2mm 15mm - [id number] Implanted:Qty : 1 on 04/27/2023 by Dudley Hinojosa MD [place] [facility] Left: Face [employer] [id number] 12/24/2024 [id number] / / [id number] Alloderm 4x7 Thin 0.8-1.2 (28 Units) - [id number] - [id number] Implanted:Qty : 28 on 04/27/2023 by Dudley Hinojosa MD at [place] [facility] Left: Face ABBVIE 12/18/2024 [id number] / [id number] / [id number] Sheeting Monisha 2x3in X.020in - [id number] Implanted:Qty : 1 on 04/27/2023 by Dudley Hinojosa MD at [place] [facility] Left: Ear [employer] 09/25/2024- / / [id number] Sheeting Monisha 2x3 In X.005in - [id number] Implanted:Qty : 1 on 12/12/2023 by Gurvinder Garcia MD at [place] [facility] Left: Ear [employer] 04/05/2026- / / [id number] Cath Pwr Picc Solo Inj 4f - [id number] Implanted:Qty : 1 on 01/26/2024 at [facility] CR BARD : ACCESS SYSTEMS [id number] 06/20/2025 [id number] / / [id number] documented as of this encounter Additional Health Concerns Infection Onset Date Last Indicated 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 01/24/2024 documented as of this encounter Advance Directives Documents on File Type Date Recorded Patient Meter Calibrator Expl marlynion POL 04/26/2023 [place] OR [facility] FOR LIFE-SUSTAINING TREATMENT * Full Code (Latest [...] Agents on File Name Relationship Healthcare [facility] Adult Child Power of Disabilities Services Officer Care Teams It Auditor Relationship Specialty Start Date End Date Jad Boone MD [address] [place] [address] [place] [address] PCP - General Family Medicine 09/20/23 documented as of this encounter
--- OUTSIDE RECORDS SUMMARY | 2024-04-25 23:52 | External Medical Summary ---
Author Name Unknown Address Unknown Organization [facility] [address] [address] Laboratory Report Ordering Provider Test Date Status SENG GARCIA 01/29/2024 06:23:00 Final Observation Date Value Abnormality Reference (Units ) Status Vancomycin, level 01/29/2024 06:23:00 31.8 10 .0-40.0 (ug/mL) Final Performing Location LABORATORY [facility] - [address] [address]
--- OUTSIDE RECORDS SUMMARY | 2024-04-25 23:52 | External Medical Summary | Summary of Care ---
Author Name Unknown Organization [facility] Address [address] [place] [address] Phone [phone] Care Team Providers Care Computer Information Systems Professor Name Role Phone Jad Boone MD Primary Care Provider Encounter Details Date Type Department Care Team (Late st Contact Info) Description 01/25/2024 Population Health External Data Unspecified Department Allergies Active Allergy Reactions Criticality Noted Date Comments Bee Venom Hives High 03/14/2017 documented as of this encounter (statuses as of 01/25/2024) Medications Medication Sig Dispensed Refills Start Date End Date Status Omeprazole 20 MG Oral Capsule Delayed Release (PriLOSEC) Take 1 Capsule by mouth in the morning. 90 Capsule 1 11/15/2022 Suspended Additional Information Vitamin D3 1.25 MG (55165 UT) Oral Capsule Take 1 Capsule by mouth once a week. 12 Capsule 3 01/30/2023 Suspended Additional Information Patient taking differently:50,000 Units Oral QWEEK,Every Monday, Reported on 01/18/2024 Atorvastatin Calcium 20 MG Oral Tablet (Lipitor)Indicati ons:Coronary artery disease involving [place] coronary artery of [place] heart without angina pectoris TAKE 1 TABLET, BY MOUTH, IN THE MORNING. 90 Tablet 1 03/04/2023 Suspended Additional Information Acetaminophen 325 MG Oral Tablet (Tylenol) Take 2 Tablets by mouth every 6 hours as needed for Pain, Mild. 30 Tablet 04/03/2023 Suspended Additional Information Multivitamin Adult Oral Tablet Take by mouth every evening. Suspended Furosemide 20 MG Oral Tablet (Lasix)Indication s:Chronic diastolic CHF (congestive heart failure) ([facility]) Take 2 Tablets by mouth in the morning. 180 Tablet 1 08/15/2023 Suspended Additional Information Metoprolol Succinate ER 25 MG Oral Tablet Extended Release 24 Hour (Toprol XL)Indications:Ch ronic diastolic CHF (congestive heart failure) ([facility]) Take 1 Tablet by mouth in the morning. 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 Suspended Lisinopril 10 MG Oral Tablet (Prinivil)Indicat ions:Chronic heart failure with preserved ejection fraction (HFpEF) ([facility]) Take 1 Tablet by mouth in the morning. 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 103.317 mL 12/22/2023 Suspended Additional Information oxyCODONE HCl 5 MG Oral Capsule (Oxy IR) Take 1 Capsule by mouth every 6 hours as needed. Suspended Warfarin Sodium 5 MG Oral Tablet (Coumadin)Indicat ions:PAF (paroxysmal atrial fibrillation) ([facility]) Take 1 Tablet by mouth every evening. 8: 10 mg; Otherwise 5 mg every Tue, Wed, Mon; 7.5 mg all other days and as directed by [facility] 135 Tablet 1 01/02/2024 Suspended Additional Information amLODIPine Besylate 2.5 MG Oral Tablet (Norvasc) Take 1 Tablet by mouth in the morning. 30 Tablet 01/03/2024 Suspended Additional Information Magnesium Hydroxide 400 MG/5ML Oral Suspension (Milk of Magnesia) Take 30 mL by mouth daily as needed for Constipation. Suspended Sennosides-Docusa te Sodium 8.6-50 MG Oral Tablet (Senna S) Take 1 Tablet by mouth daily as needed for Constipation. Suspended Polyethylene Glycol 3350 17 GM/SCOOP Oral Powder (MiraLax) Take 17 g by mouth daily as needed for Constipation. Suspended documented as of this encounter (statuses as of 01/25/2024) Active Problems Problem Noted Date Diagnosed Date Bilateral hand numbness 12/14/2023 Malignant neoplasm of [...] fibrillation) 10/18/2018 Coronary artery disease invo lving [place] coronary artery without angina pectoris 01/07/2015 residential [...] as of this encounter (statuses as of 01/25/2024) Resolved Problems Problem Noted Date Diagnosed Date [...] as of this encounter (statuses as of 01/25/2024) Immunizations Name Administration Dates Next Due COVID-19 mRNA, LNP-s, No Pre serve, 2-Dose Series ([employer]) 11/26/2020,11/05/2020 Pneumococcal Conjugate Vacc, 13 Valent (Prevnar) [...] Team (Late st Contact Info) Description 01/29/2024 5:45 PM EDT Anticoagulation Centralized Clinical Pharmacy Services, Sandra Gómez [address] [place] [address] [place] [address] [facility], [facility] [address] [facility] [place] [id number] 02/13/2024 9:20 AM EDT Office Visit [place] [address] [place] [address] Jad Boone MD [address] [facility] [address] [place] [address] 02/16/2024 10:45 AM EDT Office Visit Otolaryngology/Head & Neck/Facial Plastic Surgery [address] [place] [address] Gurvinder Garcai MD [address] [place] [address] 06/06/2024 9:30 AM EDT Office Visit [facility] [place] [address] [facility] [address] Yas Mckinnon CRNP [address] [place] [address] 07/23/2024 9:30 AM EST Office Visit Radiation Oncology, [facility] [address] [place] [address] Eros Faust MD [address] [place] [address] Health Maintenance Due Date Last Done Comments Albumin/Creatinine Ratio 1963 Hepatitis C Screening 1963 Zoster Vaccines (2 of 3) 06/26/2014 05/01/2014 *SPIROMETRY ONCE FOR ASTHMA-ADULT 07/14/2022 COVID-19 Vaccine ( season) 2023 11/26/2020, 11/05/2020 *NEPHROLOGY REFERRAL DUE TO RESISTANT HTN 09/25/2023 Depression Screening 09/18/2024 09/18/2023 GFR 12/21/2024 12/22/2023, 11/19, 11/17/2023, Additional history exists DTaP,Tdap,and Td Vaccines (2 - Td or Tdap) 09/14/2026 09/14/2016 Pneumococcal Vaccine: 65+ Years Completed 03/09/2016, 08/23/2012 Influenza Vaccine (FLU shot) Completed 05/30/2023, 05/18/2022, 06/17/2021, Additional history exists Colonoscopy Discontinued GARDASIL-HPV IMMUNIZATION SERIES Aged Out No longer eligible based on patient's age to complete this topic Hepatitis B Aged Out No longer eligi ble based on patient's age to complete this topic MENINGOCOCCAL (MENACTRA/MENVEO) Aged Out No longer eligible based on patient's age to complete this topic documented as of this encounter Medical Devices Implanted Type Area Senior Talent Management Consultant Device Identifier Shelf Expiration Date Model / Serial / Lot Connector Nerve 2mm 15mm - [id number] Implanted:Qty: 1 on 04/27/2023 [place] [facility] [place] [employer] [id number] 12/24/2024 [id number] / / [id number] Alloderm 4x7 Thin 0.8-1.2 (28 Units) - [id number] - [id number] Implanted:Qty: 28 on 04/27/2023 by Dudley Hinojosa MD [place] [facility] [place] Face [employer] 12/18/2024 [id number] / [id number] / [id number] Sheeting Monisha 2x3in X.020in - [id number] Implanted:Qty: 1 on 04/27/2023 by Dudley Hinojosa MD [place] [facility] [place] Ear [employer] 09/25/2024 23-700-20 / / [id number] Sheeting Monisha 2x3 In X.005in - [id number] Implanted:Qty: 1 on 12/12/2023 by Gurvinder Garcia MD [place] [facility] [place] Ear [employer] 04/05/2026 23-700-05 / / [id number] documented as of this encounter Advance Directives Documents on File Type Date Recorded Patient Cardiopulmonary Technician Mary Lou LYONS 04/26/2023 [place] [facility] FOR LIFE-SUSTAINING TREATMENT * Full Code (Latest Code Status on File) Date Activated Date Inactivated Comments 01/24/2024 3:08 PM This order refl ects the patients wishes and were consensually agreed [...] Communication Brody Avery Adult Child Power of Science Education Professor Care Teams Computer Information Systems Professor Relationship Specialty Start Date End Date Jad Boone MD [address] [place] [address] [place] [id number] PCP - General Family Medicine 09/20/23 documented as of this encounter
--- OUTSIDE RECORDS SUMMARY | 2024-04-25 23:52 | External Medical Summary | Summary of Care ---
Author Name Unknown Organization [facility] Address [address] [place] [address] Phone [phone] Care Team Providers Care Drama Teacher Name Role Phone Jad Boone MD Primary Care Provider Encounter Details Date Type Department Care Team (Late st Contact Info) Description 01/29/2024 Population Health External Data Unspecified Department Allergies Active Allergy Reactions Criticality Noted Date Comments Bee Venom Hives High 03/14/2017 documented as of this encounter (statuses as of 01/29/2024) Medications Medication Sig Dispensed Refills Start Date End Date Status Omeprazole 20 MG Oral Capsule Delayed Release (PriLOSEC) Take 1 Capsule by mouth in the morning. 90 Capsule 1 11/15/2022 Active Vitamin D3 1.25 MG (63493 UT) Oral Capsule Take 1 Capsule by mouth once a week. 12 Capsule 3 01/30/2023 Active Additional Information Patient taking differently:50,000 Units Oral QWEEK,Every Monday, Reported on 01/18/2024 Atorvastatin Calcium 20 MG Oral Tablet (Lipitor)Indicatio ns:Coronary artery disease involving nome coronary artery of nome heart without angina pectoris TAKE 1 TABLET, BY MOUTH, IN THE MORNING. 90 Tablet 1 03/04/2023 Active Acetaminophen 325 MG Oral Tablet (Tylenol) Take 2 Tablets by mouth every 6 hours as needed for Pain, Mild. 30 Tablet 04/03/2023 Active Multivitamin Adult Oral Tablet Take by mouth every evening. Active Furosemide 20 MG Oral Tablet (Lasix)Indications :Chronic diastolic CHF (congestive heart failure) ([facility]) Take 2 Tablets by mouth in the morning. 180 Tablet 1 08/15/2023 Active Metoprolol Succinate ER 25 MG Oral Tablet Extended Release 24 Hour (Toprol XL)Indications:Chr onic diastolic CHF (congestive heart failure) ([facility]) Take 1 Tablet by mouth in the [...] with preserved ejection fraction (HFpEF) ([facility]) Take 1 Tablet by mouth in the [...] (Coumadin)Indicati ons:PAF (paroxysmal atrial fibrillation) ([facility]) Take 1 Tablet by mouth every evening. 09/28: 10 mg; Otherwise 5 mg every e, Wed, Mon; 7.5 mg all other days and as directed by [facility] 135 Tablet 1 01/02/2024 Active [...] 2 g before bedtime. 240 g 01/27/2024 4 Active documented as of this encounter (statuses [...] fibrillation) 10/18/2018 Coronary artery disease invo lving nome coronary artery without angina pectoris 01/07/2015 half-way [...] mRNA, LNP-s, No Pre serve, 2-Dose Series ([employer]) 11/26/2020,11/05/2020 Pneumococcal Conjugate Vacc, 13 Valent (Prevnar) [...] Team (Late st Contact Info) Description 01/29/2024 5:20 PM EDT Anticoagulation Centralized Clinical Pharmacy Services, [place] [address] [place] [address] [facility] 58 60 [facility] [place] [id number] 02/13/2024 9:20 AM EDT Office Visit [place] [address] [address] [place] [address] Jad Boone MD [address] [place] [address] [place] [address] 02/16/2024 10:45 AM EDT Office Visit Otolaryngology/Head & Neck/Facial Plastic Surgery [address] [place] [address] Gurvinder Garcia MD [address] [place] [address] 04/02/2024 10:40 AM EDT Office Visit Infectious Disease, [place] [address] [place] [address] Laura Arambula MD [address] [place] [id number] 06/06/2024 9:30 AM EDT Office Visit Cardiology, [place] [address] [place] [address] Yas Mckinnon CRNP [address] [facility] [place] [address] 07/23/2024 9:30 AM EST Office Visit Radiation Oncology, [facility] [address] [facility] [address] Eros Faust MD [address] [facility] [place] [address] Health Maintenance Due Date Last Done Comments [...] this encounter Medical Devices Implanted Type Area Patient Services Clerk Device Identifier Shelf Expiration Date Model / Serial / Lot Connector Nerve 2mm 15mm - [id number] Implanted:Qty : 1 on 04/27/2023 [place] [facility] [place] Face [employer] [id number] 12/24/2024 [id number] / / [id number] Alloderm 4x7 Thin 0.8-1.2 (28 Units) - [id number] - [id number] Implanted:Qty : 28 on 04/27/2023 by Dudley Hino[place]osa [place] [facility] [place] Face [employer] 12/18/2024 [id number] / [id number] / [id number] Sheeting Monisha 2x3in X.020in - [id number] Implanted:Qty : 1 on 04/27/2023 by Dudley Hinojosa [place] [facility] [place]: Ear [employer] 09/25/2024 23-700-20 / / [id number] Sheeting Monisha 2x3 In X.005in - [id number] Implanted:Qty : 1 on 12/12/2023 by Gurvinder Garcia [place] [facility] [place]: Ear [employer] 04/05/2026 23-700-05 / / [id number] Cath Pwr Picc Solo Inj 4f - [id number] Implanted:Qty : 1 on 01/26/2024 [place] [facility] [place] BARD : [employer] [id number] 06/20/2025 [id number] / / [id number] documented as of this encounter Additional Health Concerns Infection Onset Date Last Indicated 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 01/24/2024 documented as of this encounter Advance Directives Documents on File Type Date Recorded Patient Buffet Server Expl anation POLST 04/26/2023 [place] OR [facility] FOR LIFE-SUSTAINING TREATMENT * Full Code [...] Agents on File Name Relationship Healthcare Agent Replaced By [facility] Communication [facility] Adult Child Power of Garnett Fixer Care Teams Drama Teacher Relationship Specialty Start Date End Date Jad Boone MD [address] [facility] [place] [address] PCP - General Family Medicine 09/20/23 documented as of this encounter
--- OUTSIDE RECORDS SUMMARY | 2024-04-25 23:52 | External Medical Summary | Summary of Care ---
Author Name Unknown Organization [facility] Address [address] [place] [address] Phone [phone] Care Team Providers Care Photovoltaic Panel Installer Name Role Phone Jad Boone MD Primary Care Provider Reason for Visit * Reason Comments Follow Up Encounter Details Date Type Department Care Team (Late st Contact Info) Description 01/24/2024 10:00 AM EDT Office Visit Otolaryngology/Head & Neck/Facial Plastic Surgery [address], [place] [id number] Monik Edge CRNP [address] [place] [address] History of squamous cell carcinoma*; S/P flap graft; Infection of left external ear Allergies Active Allergy Reactions Criticality Noted Date Comments Bee Venom Hives High 03/14/2017 documented as of this encounter (statuses as of 01/24/2024) Medications Medication Sig Dispensed Refills Start Date End Date Status Omeprazole 20 MG Oral Capsule Delayed Release (PriLOSEC) Take 1 Capsule by mouth in the morning. 90 Capsule 1 11/15/2022 Suspended Additional Information Vitamin D3 1.25 MG (87102 UT) Oral Capsule Take 1 Capsule by mouth once a week. 12 Capsule 3 01/30/2023 Suspended Additional Information Patient taking differently:50,000 Units Oral QWEEK,Every Monday, Reported on 01/18/2024 Atorvastatin Calcium 20 MG Oral Tablet (Lipitor)Indicati ons:Coronary artery disease involving [place] coronary artery of [place] heart without angina pectoris TAKE 1 TABLET, [...] (Lasix)Indication s:Chronic diastolic CHF (congestive heart failure) ([facility]) Take 2 Tablets by mouth in the morning. 180 Tablet 1 08/15/2023 Suspended Additional Information Metoprolol Succinate ER 25 MG Oral Tablet Extended Release 24 Hour (Toprol XL)Indications:Ch ronic diastolic CHF (congestive heart failure) ([facility] [...] 56 g 2 09/29/2023 Suspended Additional Information Patient not taking.Reported on 01/18/2024 Ventolin HFA 108 (90 Base) MCG/ACT Inhalation Aerosol Solution Inhale 2 Puffs by mouth every 4 hours as needed for Shortness of Breath. Suspended Lisinopril 10 MG Oral Tablet (Prinivil)Indicat ions:Chronic heart failure with preserved ejection fraction (HFpEF) ([facility]) Take 1 Tablet by mouth in the morning. 90 Tablet 3 11/10/2023 Suspended Additional Information Bacitracin Zinc 500 UNIT/GM External Ointment Apply topically to affected area 2 times a day. Apply to left ear/neck suture/staple lines and bolsters twice per day. Please keep the bolsters moist. 113.6 g 12/12/2023 Suspended Additional Information Bacitracin 500 UNIT/GM External Ointment 12/16/2023 Suspended Ofloxacin 0.3 % Otic Solution (Floxin)Indicatio ns:Acquired [...] ions:PAF (paroxysmal atrial fibrillation) (HCC) Take 1 Tablet by mouth every evening. 2/8: 10 mg; Otherwise 5 mg every Tue, Wed, Fri; 7.5 mg all other days and as directed by [facility] 135 Tablet 1 01/02/2024 Suspended Additional Information Cephalexin 500 MG Oral Capsule Take 1 Capsule by mouth in the morning and 1 Capsule before bedtime. 14 Capsule 01/02/2024 Suspended Additional Information Patient not taking.Reported on 01/18/2024 amLODIPine Besylate 2.5 MG Oral Tablet (Norvasc) [...] mouth daily as needed for Constipation. Suspended guaiFENesin 400 MG Oral Tablet Take 1 Tablet by mouth every 4 hours as needed for Congestion. Suspended documented as of this encounter (statuses as of 01/24/2024) Active Problems Problem Noted Date Diagnosed Date [...] fibrillation) 10/18/2018 Coronary artery disease invo lving [place] coronary artery without angina pectoris 01/07/2015 manager terminal current use of anticoagulant therapy 0 05/01/2014 Overview: ICD-10 update of inactive term Heart failure, systolic, due to CAD 08/28/2012 Overview: ECHO 2011 - Segmental wall abnormality, severe hypokinesis of anterior septum, anterior wall, apex, distal inferior septum, distal inferior wall, and distal posterior wall EF 33% Mass of left parotid gland documented as of this encounter (statuses as of 01/24/2024) Resolved Problems Problem Noted Date Diagnosed Date [...] as of this encounter (statuses as of 01/24/2024) Immunizations Name Administration Dates Next Due COVID-19 mRNA, LNP-s, No Pre serve, 2-Dose Series (Causecast) 11/26/2020,11/05/2020 Pneumococcal Conjugate Vacc, 13 Valent (Prevnar) [...] Sign Reading Time Taken Comments Blood Pressure 170/95 01/24/2024 1:11 PM EDT Pulse 58 01/24/2024 1:11 PM EDT Temperature - - Respiratory Rate - - Oxygen Saturation 97% 01/24/2024 1:11 PM EDT Inhaled Oxygen Concentration - - Weight - - Height - - Body Mass Index - - documented in this encounter Functional Status Functional [...] No 04/26/2023 documented as of this encounter Progress Notes * Monik Edge CRNP - 01/24/2024 10:00 AM EDT Images from the original note were not included. Otolaryngology - Head & Neck Surgery Visit Date: 01/23/2024 Chief Complaint: Left preauricular SCC, stage pT2 pN0 M0 Treatment History: - Left wide local excision, left parotidectomy, left neck dissection, submental island flap reconstruction, and STSG to the left ear canal on 04/27/23. - Final pathology pT2N0. Tumor board recommendation for adjuvant radiation, compelted July 2023. - Reconstruction of left wound dehiscence with temporalis flap, postauricular cervicofacial advancement flap, and skin grafting on 12/12/23. Concurrent meatoplasty, canalplasty, and skin grafting withDr. Garcia. Interval: Patient presents today for routine visit. He is currently residing in an assisted living with home health care but he is independent. His left ear wound has purulent foul smelling drainage with woundbreakdown and dehiscence. Dr. Hinojosa debrided wound today in clinic. Dr. Garcia also evaluated patient today. Initial HPI: Stephen Varela is a 77 year old male who presents for evaluation of the above. He was initially evaluated while inpatient for a mechanical fall. He feels the mass has been present for at least one month, possible longer. He has a history of left facial skin cancer treated by local excision 3 years ago in [place]. Denies facial weakness. 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 Patient was reviewed at multidisciplinary H&N tumor board with recommendation for surgical resection. Past Medical History: Reviewed. Past Surgical History: Reviewed. Family History: Reviewed. Medications and Allergies: Reviewed. Patient Active Problem List Diagnosis Heart failure, systolic, due to CAD (HCC) manager terminal current use of anticoagulant therapy Coronary artery disease involving [place] coronary artery without angina pectoris PAF (paroxysmal atrial fibrillation) (HCC) Mild intermittent asthma without complication Other specified peripheral vascular diseases (HCC) Chronic diastolic CHF (congestive heart failure) (HCC) Essential hypertension with goal blood pressure less than 140/90 Dyslipidemia, goal LDL below 70 Atypical migraine Other specified anemias Suspected sleep apnea Mass of left parotid gland 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 There were no vitals taken for this visit. Physical Examination: General: Alert, no acute distress. Well developed. Normal mood and affect. Head: Normocephalic, atraumatic. No scalp lesions or masses. Face: Left preauricular reconstruction with submental island flap. Partial auriculectomy. S/p reconstruction of temporal scalp with skin grafted temporalis and postauricular cervicofacial advancementflap. Carol and sutures removed. Healing appropriately. Forehead weakness. The remaining branchesof the facial nerve are intact, including full eye closure. Eyes: EOMI. Pupils equal. Normal conjunctivae and lids. Ear: Left ear canal s/p meatoplasty/canalplasty and skin grafting. Purulent foul drainage with boneexposure of mastoid and ear canal. Cartilage with dried crusted purulence that was debrided and cultured today. Larynx: Normal voice, no hoarseness. Neck: Well healed surgical incisions. Respiratory: Normal work of breathing on room air. Labs: Surgical Pathology (04/27/23): A. Left facial mass, radical excision: Invasive squamous cell carcinoma, well differentiated, measuring 5.0 cm in lateral extent and 2.5 cm in depth. Perineural invasion is present. Surgical resection margins are negative for carcinoma and dysplasia. See synoptic report. B. Left Parotid Gland, total parotidectomy: Salivary gland tissue with no specific pathologic change. Three lymph nodes, negative for carcinoma; (0/3). C. Neck, Level 1-4, regional dissection: Salivary gland tissue with no specific pathologic change. Twelve lymph nodes, negative for carcinoma; (0/12). D. Neck, Level 2b, regional dissection: Three lymph nodes, negative for carcinoma; (0/3). Biopsy 04/03/23: A. Face, fresh for frozen, excision: Very small focus of invasive squamous cell carcinoma (see comment) Comment: Present within only one of the frozen section levels and none of the subsequently processed permanent section levels of specimen A is a small collection of a dozen pleomorphic cells. It is only in comparison with the cells of specimen B that it can be determined that that this represents invasive squamous cell carcinoma. B. Face, permanent, punch: Invasive well-differentiated squamous cell carcinoma Imaging: CT neck w contrast 03/29/23: Large fungating left preauricular mass concerning for cutaneous malignancy. Recommend tissue sampling. Encasement of right superficial temporal artery. Loss of fat plane between the mass and the tragus cartilage. No evidence of metastatic disease in the neck. CT CAP 03/26/23: 1. On sagittal images 87-107, series 11 / coronal images 108-118, series 9, non-displaced hairline fracture of the T10 vertebral body. No encroachment on the adjacent thoracic spinal canal. 2. Bilateral moderate to large pleural fluid collections. 3. No pneumothorax. 4. Normal caliber thoracic aorta without dissection or aneurysm. 5. No evidence of acute pulmonary embolism. PET-CT (11/08/23): 1. Mild metabolic activity of the left ear likely secondary to post treatment changes. No PET-CT evidence of metastatic disease. 2. Slightly increased moderate right and small left pleural effusions with associated compressive atelectasis. 3. Interval worsening of compression deformities of T9, T10, and T11 with severe wedge deformity ofT10 resulting in new grade 2 anterolisthesis of T10 on T11. Assessment and Plan: Stephen Varela is a 77 year old male with history of HF, Afib on warfarin, DLD, HTN, obesity; newdiagnosis of a locally advanced left preauricular SCC. - Left wide local excision, left parotidectomy, left neck dissection, submental island flap reconstruction, and STSG to the left ear canal on 04/27/23. - Final pathology pT2N0. Tumor board recommendation for adjuvant radiation, compelted July 2023. - Reconstruction of left wound dehiscence with temporalis flap, postauricular cervicofacial advancement flap, and skin grafting on 12/12/23. Concurrent meatoplasty, canalplasty, and skin grafting withDr. Garcia. - Admit to Dr. Hinojosa Med surg - Follow up culture sent in clinic - PICC - ID consult for IV antibiotics with cartilage coverage for pseudomonas - Wound care by ENT while inpatient Patient was seen and examined with Dr. Hinojosa. NELIA Rhoades 01/24/2024 documented in this encounter Nursing Notes * Hiwot Butler V, MED ASSIST - 01/24/2024 10:17 AM EDT Patient was instructed to not get up on the exam table/exam chair until directed and assisted by their provider; patient is to remain seated in the chair/ wheelchair/ exam table/ exam chair for fall prevention and safety reasons. Patient is aware to have assistance to step down off exam table/exam chair with personnel. Patient voiced full comprehension of instructions. CATALINO Tan 01/24/2024 10:17 AM documented in this encounter Plan of Treatment Upcoming Encounters Date Type Department Care Team (Late st Contact Info) Description 01/29/2024 5:45 PM EDT Anticoagulation [facility], Sandra Gómez [address] [place] [address] [place] [address] [facility] [address] [facility] [place] [id number] 02/13/2024 9:20 AM EDT Office Visit [place] [address] [address] [place] [address] Jad Boone MD [facility] [address] [place] [address] 02/16/2024 10:45 AM EDT Office Visit Otolaryngology/Head & Neck/Facial Plastic Surgery [address] [place] [address] Gurvinder Garcia MD [address] [place] [address] 06/06/2024 9:30 AM EDT [facility] [place] [facility] [address] Yas Mckinnon CRNP [address] [facility] [place] [address] 07/23/2024 9:30 AM EST Office Visit Radiation Oncology, [facility] [address] [facility] [address] Eros Faust MD [address] [place] [address] [place] [address] Scheduled Orders Name Type Priority Associated Diagnoses Orde r Schedule CULTURE, WOUND, DEEP, AEROBIC AND ANAEROBIC Lab Routine History of squamous cell carcinoma S/P flap graft Infection of left external ear Expected: 01/24/2024, Expires: 01/23/2025 Health Maintenance Due Date Last Done Comments Albumin/Creatinine Ratio 1963 Hepatitis C Screening 1963 Zoster Vaccines (2 of 3) 06/26/2014 05/01/2014 *SPIROMETRY ONCE FOR ASTHMA-ADULT 07/14/2022 COVID-19 Vaccine (3 - 2022- season) 2023 11/26/2020, 11/05/2020 *NEPHROLOGY REFERRAL DUE [...] this encounter Medical Devices Implanted Type Area Art Coordinator Device Identifier Shelf Expiration Date Model / Serial / Lot Connector Nerve 2mm 15mm - [id number] Implanted:Qty: 1 on 04/27/2023 by Dudley Hinojosa MD at [facility] Left: Face [employer] [id number] 12/24/2024 [id number] / / [id number] Alloderm 4x7 Thin 0.8-1.2 (28 Units) - [id number] - [id number] Implanted:Qty: 28 on 04/27/2023 by Dudley Hinojosa MD at [facility] Left: Face ABBVIE 12/18/2024 [id number] / [id number] / [id number] Sheeting Monisha 2x3in X.020in - [id number] Implanted:Qty: 1 on 04/27/2023 by Dudley Hinojosa MD at [facility] Left: Ear [employer]IED [employer] 09/25/2024- / / [id number] Sheeting Monisha 2x3 In X.005in - [id number] Implanted:Qty: 1 on 12/12/2023 by Gurvinder Garcia MD at [facility] Left: Ear [employer]IED [employer] 04/05/2026- / [id number] documented as of this encounter Visit Diagnoses Diagnosis History of squamous cell carcinoma- Primary Personal history of malignant neoplasm of other site S/P flap graft Other postprocedural status Infection of left external ear Infective otitis externa, unspecified documented in this encounter Advance Directives Documents on File Type Date Recorded 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 Question Answer Comments Discussion of Advance Directives occurred with: Patient Healthcare Agents on File Name Relationship Healthcare Agent [facility] Child Power of Flood Control Engineer Care Teams Photovoltaic Panel Installer Relationship Specialty Start Date End Date Jad Boone MD [address] [place] [address] PCP - General Family Medicine 09/20/23 documented as of this encounter
--- OUTSIDE RECORDS SUMMARY | 2024-04-25 23:52 | External Medical Summary | Summary of Care ---
Author Name Unknown Organization [facility] Address [address] [place] [address] Phone [phone] Worker Name Role Phone Jad Boone MD Primary Care Provider Reason for Visit * Auth/Cert Specialty Diagnoses / Procedures Referred By Contac t Referred To Contact Diagnoses Open wound of left ear, unspecified open wound type, initial encounter Deep wound infection left ear Dudley Hinojosa MD [address] [facility] [place] [address] Admissions [facility] [address] [place] [address] Referral ID Status Reason Start Date Expiration Date Visits Re quested Visits Authorized [id number] Encounter Details Date Type Department Care Team (Latest Contact Info) Description 01/24/2024 1:03 PM EDT - 01/27/2024 2:56 PM EDT [facility] [address], [place] [id number] Dudley Hinojosa MD [address] [facility] [place] [id number] Ale Purdy MD [address] [place] [address], [place] [id number] Discharge Disposition: Home - Self Care Allergies Active Allergy Reactions Criticality Noted Date Comments Bee Venom Hives High 03/14/2017 documented as of this encounter (statuses as of 01/28/2024) Medications Medication Sig Dispensed Refills Start Date End Date Status Omeprazole 20 MG Oral Capsule Delayed Release (PriLOSEC) Take 1 Capsule by mouth in the morning. 90 Capsule 1 3 Active Vitamin D3 1.25 MG (32331 UT) Oral Capsule Take 1 Capsule by mouth once a week. 12 Capsule 3 3 Active Additional Information Patient taking differently:50,000 Units Oral QWEEK,Every Monday, Reported on 01/18/2024 Atorvastatin Calcium 20 MG Oral Tablet (Lipitor)Indicati ons:Coronary artery disease involving [place] coronary artery of [place] heart without angina pectoris TAKE 1 TABLET, BY MOUTH, IN THE MORNING. 90 Tablet 1 3 Active Acetaminophen 325 MG Oral Tablet (Tylenol) Take 2 Tablets by mouth every 6 hours as needed for Pain, Mild. 30 Tablet 3 Active Multivitamin Adult Oral Tablet Take by mouth every evening. Active Furosemide 20 MG Oral Tablet (Lasix)Indication s:Chronic diastolic CHF (congestive heart failure) ([facility]) Take 2 Tablets by mouth in the morning. 180 Tablet 1 3 Active Metoprolol Succinate ER 25 MG Oral Tablet Extended Release 24 Hour (Toprol XL)Indications:Ch ronic diastolic CHF (congestive heart failure) ([facility]) Take 1 Tablet by mouth in [...] Breath. Active Lisinopril 10 MG Oral Tablet (Prinivil)Indicat ions:Chronic heart failure with preserved ejection fraction (HFpEF) (HCC) Take 1 Tablet by mouth in the morning. 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 103.317 mL 4 Active oxyCODONE HCl 5 MG Oral Capsule (Oxy IR) Take 1 Capsule by mouth every 6 hours as needed. Active Warfarin Sodium 5 MG Oral Tablet (Coumadin)Indicat ions:PAF (paroxysmal atrial fibrillation) (HCC) Take 1 Tablet by mouth every evening. 2/8: 10 mg; Otherwise 5 mg every Tue, Wed, Fri; 7.5 mg all other days and as directed by [facility] 135 Tablet 1 4 Active amLODIPine Besylate 2.5 MG Oral Tablet [...] the evening. 80 g 4 03/07/20 24 Active cefepime IV IJ (AMBULATORY) Administer 2 g intravenously in the morning and 2 g at noon and 2 g before bedtime. 240 g 4 03/07/20 24 Active Bacitracin Zinc 500 UNIT/GM External Ointment Apply topically to affected area 2 times a day. Apply to left ear/neck suture/staple lines and bolsters twice per day. Please keep the bolsters moist. 113.6 g 4 01/24/20 24 Discontinued Bacitracin 500 UNIT/GM External Ointment 4 01/24/20 24 Discontinued Cephalexin 500 MG Oral Capsule Take 1 Capsule by mouth in the morning and 1 Capsule before bedtime. 14 Capsule 4 01/24/20 24 Discontinued guaiFENesin 400 MG Oral Tablet Take 1 Tablet by mouth every 4 hours as needed for Congestion. 01/24/20 24 Discontinued Doxycycline Hyclate 100 MG Oral Capsule Take 1 Capsule by mouth in the morning and 1 Capsule before bedtime. 84 Capsule 4 01/26/20 24 Discontinued Ciprofloxacin HCl 500 MG Oral Tablet (Cipro) Take 1 Tablet by mouth in the morning and 1 Tablet before bedtime. 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 [...] as of this encounter (statuses as of 01/28/2024) Resolved Problems Problem Noted Date Diagnosed Date [...] as of this encounter (statuses as of 01/28/2024) Immunizations Name Administration Dates Next Due COVID-19 [...] Sign Reading Time Taken Comments Blood Pressure 146/66 01/27/2024 11:00 AM EDT Pulse 68 01/27/2024 11:00 AM EDT Temperature 36.4 C (97.5 F) 01/27/2024 1 1:00 AM EDT Respiratory Rate 18 01/27/2024 11:0 0 AM EDT Oxygen Saturation 95% 01/27/2024 11: 00 AM EDT Inhaled Oxygen Concentration - - Weight 107.7 kg (237 lb 6.4 oz) 01/27/2024 5:36 AM EDT Height 193 cm (6' 4") 01/24/2024 1:18 PM EDT Body Mass Index 28.9 01/24/2024 1:18 PM EDT documented in this encounter Functional Status [...] 01/24/2024 documented as of this encounter Discharge Instructions * Discharge Instr - AVS* Anahy Lion MD - 01/27/2024 12:13 PM EDT Discharge Date: 01/27/[address] Hinojosa of the department of ENT at [phone] during business hours for any questions or test results. For after-hours emergencies call [phone] and have your doctor paged. The information below provides you with the instructions and the list of medications you need to betaking following discharge from the hospital. If you have any questions, please ask before leaving.Please carry this letter with you when you see your doctor in the clinic. If you have questions, you can reach us at the numbers above. Diet: Unrestricted diet as tolerated Activity: Avoid heavy or strenuous physical activity while your left ear continues to heal. Follow up in one week with Dr. Hinojosa. Special Instructions: You will be discharge with the following medications per the Infectious Disease team: Syndrome OM Left mastoid Microbiology MRSA, (Previous Pseudomonas) Antibiotic Cefepime IV 2g Q8 hrs, can adjust based on future renal function End Date 03/07/24 Syndrome OM left mastoid Microbiology MRSA, (Previous Pseudomonas) Antibiotic Vancomycin Dose per Pharmacy for Goal AUC 400-600 mg/L/hr End Date 03/07/24 You will need the following lab tests ordered as instructed by the Infectious Disease Team: LABORATORY MONITORING: Lab Test Frequency End Date CBC with diff CMP Vancomycin level(s) for AUC monitoring Q week 03/07/24 Lab Test Frequency End Date CRP Q twice weekly 03/07/24 Left ear wound care instructions: Remove and reapply wet half strength Dakin's soaked gauze to the left ear wound covered by dry gauze. Use the net-type covering to keep the dressing in place. You will do these dressing changes twicedaily for one week. Call [phone] and ask for ENT on-call for drainage from the ears, worsening pain not controlledby medications, inability to take oral nutrition, or persistent fever. documented in this encounter Progress Notes * Isaura Broderick RN - 01/27/2024 2:56 PM EDT Report called to receiving facility, nurse Frazier received report. * Isaura Broderick RN - 01/26/2024 3:50 PM EDT Hand-Off - Nurse Communication Note Name: Stephen Varela Location: [place] [address]/ Date: 01/26/2024 Time: 3:50 PM Nurse giving report: Isaura Treviño RN Nurse receiving report: IR Reason for SBAR handoff: Procedure/Diagnostic/Treatment Immediate Concerns: na SITUATION: Admission date: 01/24/2024 Chief Complaint: No chief complaint on file. 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 Patient Service: Otolaryngology [[id number]] Level of Care: Med Surg [3] Attending Provider: Dudley Hinojosa MD Coming From:[place] BACKGROUND: Primary Care Physician: Jad Boone MD Past Medical History: Diagnosis Date Atrial fibrillation ([facility]) 2011 Heart failure, systolic, due to CAD ([facility]) 08/28/2012 ECHO 2012 - Segmental wall abnormality, severe hypokinesis of anterior septum, anterior wall, apex,distal inferior septum, distal inferior wall, and distal posterior wall EF 33% Secondary hypercoagulable state ([facility]) 05/01/2014 Patient Compliant: No, Code Status: Full Code Allergies: Bee venom Problem list: Active Problems: Delayed wound healing Resolved Problems: * No resolved hospital problems. * Activity: OOB to chair Fall Risk or Safety Concerns: Fall Risk Isolation: None Isolation flowsheet: ASSESSMENT: Vital Signs: BP: 130/53 (01/26/24 144) Temp: 36.7 C (98.1 F) (01/26/24 144) Pulse: 74 (01/26/24 144) Resp: 18 (01/26/24 144) SpO2: 99 % (01/26/241445) Weight: 108.7 kg (239 lb 9.6 oz) (01/26/24 0400) Height: 193 cm (6' 4") (01/24/24 1318) Pain Assessment Flowsheet Row Most Recent Value Pain Assessment Scale [facility] Adult Scale 0-10 Pain Score 0 (no pain) Fall Scale: Fall Score: 60 (01/26/24899) Fall Interventions: Bed at low level;Bed alarm on;Yellow armband applied/intact and on patient (01/26/24899) Neurological: Neuro WNL: X - Exceptions to WNL as documented below (01/26/24947) [place] Coma Scale Eyes Open: Spontaneous (01/26/24947) Best Verbal Response: Verbally appropriate for age (01/26/24947) Best Motor Response: Obeys commands appropriate for age (01/26/24947) Coma Score: 15 (01/26/24947) Additional Neurological Information: AOX4 Respiratory: Respiratory WNL: WNL- within normal limits (01/26/24947) Cough: None (01/25/241946) Depth/Rhythm: Regular (01/25/241946) Dyspnea Occurance: None (01/25/241946) Effort: Unlabored (01/25/241946) Additional Respiratory Information: Diminished, clear Cardiac: Cardiovascular WNL: X - Exceptions to WNL as documented below (01/26/24947) Heart Sounds: S1;S2 (01/26/24947) Rhythm: Regular (01/25/241946) Extremities: +Sensation;Right;Left (01/26/24947) Pulses Right: Dorsalis Pedis + (01/26/24947) Pulses Left: Dorsalis Pedis + (01/26/24947) Edema Location: Lower extremities;Both (01/26/24947) Edema Assessment: +2 - Description (01/26/24947) Capillary Refill: 3 sec (01/25/241946) Additional Cardiac Information: NA GI/: GI WNL: WNL - within normal limits (01/26/24947) Abdomen: Soft;Non-distended;Non-tender;Rounded;Bowel sounds present all quadrants;Flatus positive (01/25/241946) WNL: WNL - within normal limits (01/26/24947) Urine Description: Concentrated;Yellow (01/26/24 0405) Additional GI/ Information: Urinal Integumentary: Integumentary WNL: X - Exceptions to WNL as documented below (01/26/24947) Skin Description: Dry (01/26/24947) Skin Color: Flesh Tone (01/26/24947) Skin Lesion: Other - Describe (see below) (01/25/241946) Vamsi Score (auto-calculation): 18 (01/26/24 0900) Skin Breakdown (including Red, Non-Blanchable Areas) Present on Admission?: Yes (01/24/24 1405) Additional Integumentary Information: Left lower legs, left ear Restraints: No orders of the defined types were placed in this encounter. Medications: ABX Lines: Peripheral Line Right;Lower;Anterior Arm 22 Gauge (Active) Status Positive blood return;Alcohol disinfectant cap;Flushes easily;Capped/Locked 01/26/24 1500 Tubing Changed N/A 01/26/24 1500 Phlebitis Scale 0 01/26/24 1500 Infiltration Scale 0 01/26/24 1500 Site Description (Other) Without redness, swelling or drainage 01/26/24 1500 Site Intervention Flushed 01/26/24 1500 Dressing Assessment Dressing clean, dry, and intact;Transparent dressing 01/26/24 1500 Dressing Intervention Applied 01/26/24 1500 Number of days: 0 Treatment: Left ear Labs: Labs This Encounter PT INR - Abnormal; Notable for the following components: Result Value Ref Range Prothrombin Time 33.3 11.6 - 15.2 seconds INR 3.2 0.8 - 1.2 All other components within normal limits Narrative: Warfarin Therapy INR: 2.0-3.0 conventional anticoagulation INR: 2.5-3.5 high intensity anticoagulation PT INR - Abnormal; Notable for the following components: Prothrombin Time 31.4 11.6 - 15.2 seconds INR 3.0 0.8 - 1.2 All other components within normal limits Narrative: Warfarin Therapy INR: 2.0-3.0 conventional anticoagulation INR: 2.5-3.5 high intensity anticoagulation CBC - Abnormal; Notable for the following components: HGB 10.5 14.0 - 16.8 g/dL HCT 35.4 40.0 - 48.4 % All other components within normal limits BASIC METABOLIC PANEL - Abnormal; Notable for the following components: BUN 23 6 - 20 mg/dL All other components within normal limits PT INR - Abnormal; Notable for the following components: Prothrombin Time 26.1 11.6 - 15.2 seconds INR 2.4 0.8 - 1.2 All other components within normal limits Narrative: Warfarin Therapy INR: 2.0-3.0 conventional anticoagulation INR: 2.5-3.5 high intensity anticoagulation Diet: Orders Placed This Encounter Procedures Regular Diet Additional Diet Information: diet Intake and Output: Intake/Output Summary (Last 24 hours) at 01/26/2024 1550 Last data filed at 01/26/2024 1300 Gross per 24 hour Intake 654.49 ml Output 1625 ml Net -970.51 ml Patient Belongings and Home Medications Patient Belongings at Bedside Belongings at Bedside: Vision;Other valuables;Clothing;Other (comment) (life alert necklace) (01/24/24 133) Vision - Corrective Lenses: Glasses (01/24/24 1331) Clothing: Shirt;Footwear;Underpants;Pants (belt) (01/24/24 133) Other Valuables: Money (comment);Wallet ($62) (01/24/241330) Patient Belongings Sent Home (Does not apply to Ambulatory areas) Belongings Sent Home: None (01/24/241330) Patient Belongings Sent to Safe/Locker Belongings Sent to Safe: None (01/24/241330) Patient Medications Medications Brought by Patient?: Yes (01/24/241330) Disposition of Medications: Stored on unit (01/24/241330) Medications: Tylenol (01/24/241330) RECOMMENDATIONS: Consults not completed: na Anticipated tests/studies/procedures: na Medication Reconcilliation completed for this Transfer? No * Isaura Broderick RN - 01/26/2024 10:37 AM EDT Patient leaving AMA, AMA form completed, MD aware. * Anahy Lion MD - 01/26/2024 7:25 AM EDT Images from the original note were not included. PROGRESS NOTE - Otolaryngology Head and Neck Surgery [facility] [address] Name: Stephen Varela Location: [facility] G201/A Date: 01/26/2024 Time: 7:27 AM SUBJECTIVE: No acute events overnight Still insists on leaving AMA today at 10 AM Insists that he can do Dakins wet to dry dressing changes at home OBJECTIVE: Most Recent Vital Signs: BP: 148 mmHg/64 mmHg (01/26/24219) Pulse: 67 (01/26/24219) Temp: 36.28 C (01/26/24219) Temp Summary: Temp Min: 36 C (96.8 F) Max: 37 C (98.6 F) SpO2: 99 % (01/26/24219) O2 flow rate: Supplemental O2 Delivery: Room Air, None (01/26/24219) Vital Signs Last 24 Hours: Systolic BP: Most Recent Systolic BP Av.8 mmHg Min: 139 mmHg Max: 172 mmHg Temperature: Most Recent Temperature Av.5 C Min: 36 C Max: 37 C Pulse: Pulse Av.8 Min: 56 Max: 78 Respirations: Resp Av.2 Min: 16 Max: 18 SpO2: SpO2 Av.4 % Min: 95 % Max: 99 % PHYSICAL EXAMINATION: Resting comfortably in the chair No acute distress Mucous membranes moist Left pinna with significant breakdown superiorly with exposed bone and cartilage, 1/2 strength dakins soaked wet to dry dressing kept in place with Spandage Normal work of breathing on RA Well-perfused LABS: INR 2.4 (3.0) CHEMISTRY: BUN, Creatinine, GFR Estimated, Sodium, Potassium, Chloride, Carbon Dioxide, Glucose, Calcium (see below for most recent value): Lab Results Component Value Date/Time BUN 23 (H) 01/26/2024 05:04 AM BUN 17 09/16/2020 10:25 AM CREAT 1.0 01/26/2024 05:04 AM CREAT 1.0 09/16/2020 10:25 AM GFRESTIMATED >60.0 09/16/2020 10:25 AM NA 139 01/26/2024 05:04 AM NA 142 09/16/2020 10:25 AM POTASSIUM 4.0 01/26/2024 05:04 AM POTASSIUM 3.8 09/16/2020 10:25 AM CL 105 01/26/2024 05:04 AM CL 104 09/16/2020 10:25 AM CO2 24 01/26/2024 05:04 AM CO2 27 09/16/2020 10:25 AM CA 9.3 01/26/2024 05:04 AM CA 9.1 09/16/2020 10:25 AM BLOOD COUNT: WBC, Hgb, Platelets (see below for most recent value): Lab Results Component Value Date/Time WBC 6.82 01/26/2024 05:04 AM WBC 10.09 09/13/2020 05:39 AM HGB 10.5 (L) 01/26/2024 05:04 AM HGB 13.3 (L) 09/13/2020 05:39 AM PLT 141 01/26/2024 05:04 AM PLT 184 09/13/2020 05:39 AM Recent Cultures (2 Weeks) 01/24/2024 12:46 PM STAIN DESCRIPTION No squamous epithelial cells seen Moderate Polymorphonuclear leukocytes Moderate Gram positive cocci CULTURE GROWTH Moderate Staphylococcus aureus IMPRESSION and PLAN: Stephen Varela is a 78 year old male with a 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 Additional comorbid conditions include HF, Afib on warfarin, DLD, HTN, and obesity. Has undergone wide local excision of the tumor, left parotidectomy, left selective neck dissection, submental island flap reconstruction and split thickness skin graft to left external auditory canal, adjuvant radiation, and most recently, a complex reconstruction of wound dehiscence and left external auditory canal. Now, admitted for with significant wound dehiscence of most recent left ear/face/ear canal reconstruction, that will require IV abx and additional wound care prior to considering any additional operative intervention. The wound was debrided in clinic on 01/[address] Hinojosa. Insisting on leaving AMA despite significant wound breakdown that is infected. - Our recommendation remains to remain inpatient for IV antibiotics, PICC placement, and dressing changes - Will discuss plans and clinical situation with son when he arrives - ID to assist in antibiotic regimens for when he leaves AMA, and they highly advise against leaving AMA as well - Will follow AC recs per medicine Anahy Lion MD PGY-2 Otolaryngology Resident 01/26/2024 7:29 AM Attending: Dudley Hinojosa MD Associated attestation - Dudley Hinojosa MD - 01/26/2024 5:15 PM EDT I did not see the patient, but I have reviewed the resident/fellow physician documentation and was not readily available on date of service. * Anahy Lion MD - 01/25/2024 7:13 AM EDT Images from the original note were not included. PROGRESS NOTE - Otolaryngology Head and Neck Surgery [facility] [place] [address] Name: Stephen Varela [address] Date: 01/25/2024 Time: 7:13 AM SUBJECTIVE: No acute events overnight Nursing team would like to get a second IV to give abx efficiently Reports minimal ear pain, the pain he does have is behind his ear OBJECTIVE: Most Recent Vital Signs: BP: 145 mmHg/64 mmHg (01/25/24248) Pulse: 62 (01/25/24248) Temp: 36.89 C (01/25/24248) Temp Summary: Temp Min: 36.5 C (97.7 F) Max: 36.9 C (98.4 F) Invasive Temp Min: 36 C (96.8 F) Max: 36.2 C (97.2 F) SpO2: 98 % (01/25/24248) O2 flow rate: Supplemental O2 Delivery: Room Air, None (01/25/24248) Vital Signs Last 24 Hours: Systolic BP: Most Recent Systolic BP Av mmHg Min: 145 mmHg Max: 170 mmHg Temperature: Most Recent Temperature Av.4 C Min: 36 C Max: 36.89 C Pulse: Pulse Av.3 Min: 54 Max: 62 Respirations: Resp Av Min: 16 Max: 18 SpO2: SpO2 Av.5 % Min: 95 % Max: 98 % PHYSICAL EXAMINATION: Resting comfortably in the chair No acute distress Mucous membranes moist Left pinna with significant breakdown superiorly with exposed bone and cartilage, mild purulent drainge cleaned and crusting cleaned with sterile saline and dressed with xeroform and gauze Normal work of breathing on RA Well-perfused LABS: 01/25/2024 INR 3.0 (3.2) Recent Cultures (2 Weeks) 01/24/2024 12:46 PM STAIN DESCRIPTION No squamous epithelial cells seen Moderate Polymorphonuclear leukocytes Moderate Gram positive cocci IMPRESSION and PLAN: Stephen Varela is a 78 year old male with a 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 Additional comorbid conditions include HF, Afib on warfarin, DLD, HTN, and obesity. Has undergone wide local excision of the tumor, left parotidectomy, left selective neck dissection, submental island flap reconstruction and split thickness skin graft to left external auditory canal, adjuvant radiation, and most recently, a complex reconstruction of wound dehiscence and left external auditory canal. Now, admitted for with significant wound dehiscence of most recent left ear/face/ear canal reconstruction, that will require IV abx and additional wound care prior to considering any additional operative intervention. The wound was debrided in clinic on 01/[address] Hinojosa. Internal - Continue hospital admission - PICC line consult, requests ID recommendation prior to placing line - ID consult for IV antibiotic recommendations, will require cartilage coverage - Will follow up wound culture obtained in clinic, no speciation yet - Will follow AC recs per medicine Anahy Lion MD PGY-2 Otolaryngology Resident 01/25/2024 7:19 AM Attending: Dudley Hinojosa MD Associated attestation - Dudley Hinojosa MD - 01/25/2024 3:09 PM EDT I did not see the patient, but I have reviewed the resident/fellow physician documentation and was readily available on date of service. * Qian Masterson, Ari Gamboa [facility] - 01/24/2024 6:07 PM EDT PHARMACY PHARMACOKINETIC CONSULT [facility] [place] [address] Name: Stephen Varela Location: [facility] [place] G201/A Date: 01/24/2024 Time: 6:05 PM Requesting Service: Otolaryngology Bacteria being treated: GPC Source of infection: Ear Medication(s) being managed: Vancomycin Pharmacokinetic calculations will be performed utilizing [employer] software. Lab information: Lab Results Component Value Date/Time WBC 6.41 12/22/2023 06:38 AM WBC 6.71 08/15/2023 09:41 AM WBC 6.61 07/24/2023 06:24 AM WBC 6.26 07/17/2023 06:34 AM WBC 7.33 07/10/2023 06:45 AM WBC 10.09 09/13/2020 05:39 AM WBC 13.25 (H) 09/12/2020 05:34 AM WBC 8.24 09/11/2020 11:58 AM WBC 8.14 03/06/2017 09:17 AM WBC 6.70 12/24/2014 08:56 AM Lab Results Component Value Date/Time BUN 21 (H) 12/22/2023 06:38 AM BUN 27 (H) 12/05/2023 09:10 AM BUN 26 (H) 11/17/2023 06:33 AM BUN 21 (H) 07/24/2023 06:24 AM BUN 29 (H) 07/17/2023 06:34 AM BUN 17 09/16/2020 10:25 AM BUN 15 09/13/2020 05:39 AM BUN 17 09/12/2020 05:34 AM BUN 20 09/11/2020 11:58 AM BUN 26 (H) 05/11/2020 09:17 AM Lab Results Component Value Date/Time CREAT 1.0 12/22/2023 06:38 AM CREAT 1.2 12/05/2023 09:10 AM CREAT 1.0 11/17/2023 06:33 AM CREAT 1.0 07/24/2023 06:24 AM CREAT 1.0 07/17/2023 06:34 AM CREAT 1.0 09/16/2020 10:25 AM CREAT 0.9 09/13/2020 05:39 AM CREAT 0.8 09/12/2020 05:34 AM CREAT 0.9 09/11/2020 11:58 AM CREAT 1.0 05/11/2020 09:17 AM ANTIMICROBIALS GIVEN (last 28 hours) None Wt Readings from Last 1 Encounters: 01/24/24 110 kg (242 lb 9.6 oz) Levels to date: No results found for: "VANCO", "VANCOPEAK", "VANCORANDOM", "VANCOTROUGH", "GENTPEAK", "GENTRANDOM","GENTTROUGH", "TOBRAPEAK", "TOBRARANDOM", "TOBRATROUGH", "AMIKAPEAK", "AMIKARANDOM", "AMIKATROUGH" Impression: Stephen Varela is a/an 78 year old male receiving vancomycin therapy. The pharmacokinetic target for therapy is AUC24,SS (range) 400-600mg/L.hr Assessment and Plan: [facility] Drug: Vancomycin Pharmacokinetic target: AUC24 (range) 400-600 mg/L.hr Stephen Varela is a(n) 78 years old male initiating Vancomycin for [PLEASE ADD INDICATION] Recent measured serum creatinine values: 01/24/2024 18:01 1 mg/dL Assessment: Analysis using [employer] gives the following patient-specific pharmacokinetic parameters: CL: 3.8 L/hr V: 74.2 L T1/2: 14.5 hours At this time we recommend a loading dose of 2500 mg at 19:00 01/24/2024, followed by a regimen of 1000 mg IV every 12 hours, which is predicted to result in a steady-state trough of 15.2 mg/L and AUC24 of 488 mg/L.hr. Recommendations: - Vancomycin 1000 mg IV every 12 hours - Continue to monitor serum creatinine Ari Laughlin Obtain next vancomycin level 48 hours . Pharmacy will continue to follow and dose as appropriate by renal function, culture results, infectious disease input, and overall clinical status. Contact the Pharmacy at extension [phone] if there are any questions. [facility] Laughlin [facility] documented in this encounter H&P Notes * Anahy Lion MD - 01/24/2024 3:36 PM EDT Images from the original note were not included. HISTORY & PHYSICAL - Otolaryngology - Head & Neck Surgery Service [address] [address] Name: Stephen Varela [place] [facility] [place] [facility] Date: 01/24/2024 Time: 3:36 PM CHIEF COMPLAINT: Left ear wound dehiscence in pt with history of Left preauricular SCC, stage pT2 pN0 M0 HISTORY OF PRESENT ILLNESS: Treatment History: - Left wide local excision, [...] meatoplasty, canalplasty, and skin grafting withDr. Garcia. 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 He was evaluated in ENT today and was found to have significant wound dehiscence. He is currently residing in an assisted living with home health care but he is independent. His left ear wound has purulent foul smelling drainage with wound breakdown and dehiscence. Dr. Hinojosa debrided wound today in clinic. Dr. Garcia also evaluated patient today. Does not report significant left ear pain at baseline apart from pain on palpation. Does not reportany other discomfort or symptoms associated with his current presentation. 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] 10/04/2023 Primary squamous cell carcinoma of head and neck ([facility]) [C76.0] 04/27/2023 Mass of left parotid gland [K11.8] Suspected sleep apnea [R29.818] 03/31/2022 Other specified anemias [D64.89] 03/29/2022 Chronic diastolic CHF (congestive heart failure) ([facility]) [I50.32] 03/16/2022 Essential hypertension with goal blood pressure less than 140/90 [I10] 03/16/2022 Dyslipidemia, goal LDL below 70 [E78.5] 03/16/2022 Atypical migraine [G43.009] 03/16/2022 Other specified peripheral vascular diseases ([facility]) [I73.89] 06/17/2021 Mild intermittent asthma without complication [J45.20] 10/29/2019 PAF (paroxysmal atrial fibrillation) ([facility]) [I48.0] 10/18/2018 Coronary artery disease involving [place] coronary artery without angina pectoris [I25.10] 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 [Z79.01] 05/01/2014 ICD-10 update of inactive term Heart failure, systolic, due to CAD ([facility]) [I50.20, I25.10] 08/28/2012 ECHO 2011 - Segmental wall abnormality, severe hypokinesis of anterior septum, anterior wall, apex,distal inferior septum, distal inferior wall, and distal posterior wall EF 33% MEDICAL HISTORY: Patient Active Problem List Diagnosis Heart failure, systolic, due to CAD (HCC) custodial current use of anticoagulant therapy Coronary artery disease involving [place] coronary artery without angina pectoris PAF (paroxysmal [...] of parotid gland (HCC) Bilateral hand numbness Past Medical History: Diagnosis Date Atrial fibrillation ([facility]) 2011 Heart failure, systolic, due to CAD ([facility]) 08/28/2012 ECHO 2011 - Segmental wall abnormality, severe hypokinesis of anterior septum, anterior wall, apex,distal inferior septum, distal inferior wall, and distal posterior wall EF 33% Secondary hypercoagulable state (HCC) 05/01/2014 Past Surgical History: Procedure Laterality Date FACE/SCALP DEEP TUMOR REMOVAL, 2 CM OR MORE Left 04/27/2023 EXCISION FACE/SCALP DEEP TUMOR, 2 CM OR MORE performed by Dudley Hinojosa MD at [place] [facility] [place] PEDICLE FLAP N/A 04/27/2023 ISLAND PEDICLE FLAP performed by Dudley Hinojosa MD at [place] [facility] [place] PEDICLE FLAP N/A 12/12/2023 ISLAND PEDICLE FLAP performed by Gurvinder Garcia MD at [place] [facility] [place] REBUILD OUTER EAR CANAL Left 12/12/2023 RECONSTRUCTION EXTERNAL AUDITORY CANAL DUE TO INJURY performed by Gurvinder Garcia MD at [place] [facility] [place] REMOVAL OF NECK LYMPH NODES Left 04/27/2023 CERVICAL LYMPHADENECTOMY COMPLETE performed by Dudley Hinojosa MD at [place] [facility] [place] REMOVAL OF PAROTID GLAND/TUMOR N/A 04/27/2023 EXCISION PAROTID TOTAL WITH DISSECTION FACIAL NERVE performed by Dudley Hinojosa MD at [place] [facility] [place] REMOVAL OF TONSILS, AGE 12+ REPAIR HIP FRACTURE(S), W/FIXATION Right REPAIR SLIDING HERNIA REVISE MIDDLE EAR & MASTOID Left 12/12/2023 TYMPANOPLASTY MASTOIDECTOMY WITHOUT OSSICULAR RECONSTRUCTION performed by Gurvinder Garcia [facility] [place] [facility] [place] SKIN SPLIT GRAFT, TRUNK/ARMS/LEGS N/A 12/12/2023 SPLIT GRAFT TRUNK ARM LEG LESS THAN 100SQ CM performed by Gurvinder Garcia MD at [place] [facility] [place] Review of patient's allergies indicates: Allergen Reactions Bee Venom Hives Social History Tobacco Use Smoking status: Former Current packs/day: 0.00 Types: Cigarettes Quit date: 2003 Years since quittin.4 Passive exposure: Past Smokeless tobacco: Never Tobacco comments: smoked, and quit in 2003 Substance Use Topics Alcohol use: No Vaping/E-Cigarette Use Vaping/E-Cigarette Use Never User Passive Exposure No Counseling Given? No Vaping/E-Cigarette Substances Nicotine No Other No Flavoring No THC No Cannabidiol (CBD) No Vaping/E-Cigarette Devices Disposable No Pre-filled or Refillable Cartridge No Refillable Tank No Pre-filled Pod No No family history on file. REVIEW OF SYSTEMS: Negative for constitutional, eyes, cardiac, pulmonary, hepatic, renal, digestive, hematologic, epileptic, syncopal, musculo-skeletal, mental health, integumentary, hypertensive, lipid, arthritic, diabetic, thyroid or neurologic disorders (except as listed in the PMH and Problem List). PHYSICAL EXAM: Vital Signs: BP: 170 mmHg/85 mmHg (01/24/24 1318) Pulse: 58 (01/24/24 1318) Temp: 36.5 C (01/24/24 1318) Temp Summary: Temp Min: 36.5 C (97.7 F) Max: 36.5 C (97.7 F) SpO2: 97 % (01/24/24 1318) O2 flow rate: Supplemental O2 Delivery: General: Alert, no acute distress. Well developed. Normal mood and affect. Head: Normocephalic, atraumatic. No scalp lesions or masses. Face: Left preauricular reconstruction with submental island flap. S/p reconstruction of temporal scalp with skin grafted temporalis and postauricular cervicofacial advancement flap. Forehead weakness. The remaining branches of the facial nerve are intact, including full [...] Normal work of breathing on room air. 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 Additional comorbid conditions include HF, Afib on warfarin, DLD, HTN, and obesity. Has undergone wide local excision of the tumor, left parotidectomy, left selective neck dissection, submental island flap reconstruction and split thickness skin graft to left external auditory canal, adjuvant radiation, and most recently, a complex reconstruction of wound dehiscence and left external auditory canal. Now, admitted for with significant wound dehiscence of most recent left ear/face/ear canal reconstruction, that will require IV abx and additional wound care prior to considering any additional operative intervention. The wound was debrided in clinic on 01/[address] Hinojosa. - Hospital admission on Med Surg floor under Dr. Hinojosa's service - PICC line consult - ID consult for IV antibiotic recommendations, will require cartilage coverage - Will follow up wound culture obtained in clinic today - Will continue to discuss wound care recommendations with Dr. Hinojosa and Dr. Jose Lion MD PGY-2 Otolaryngology Resident 01/24/2024 3:36 PM Attending: Dudley Hinojosa MD Update 01/24/2024 at 1850: ID recommends IV cefepime, flagyl, vanco until cultures come back, agree with broad spectrum coverage that also covers cartilage exposure PICC may be able to be placed on 01/24 Holding Coumadin for now per medicine recs (curbside discussion), plan for AC is: Check INR, If 2-3, no AC for now If 2 or below 2, will start heparin infusion documented in this encounter Procedure Notes * Sesar Rajput RN - 01/26/2024 5:45 PM EDTAssociated Order(s): Central Line PROCEDURE NOTE [address] [address] Name: Stephen Varela Location: RADIOLOGY WAITING ROOM/IR Date: 01/26/2024 Time: 5:45 PM Central Line General Information and Staff: Performed by: Ramo Corona MD Supervised by: Supa Plascencia MD Procedure Date/Time: 01/26/2024 5:45 PM Patient Location: IR 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: 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 vascular access Other: Antibiotics Patient identity confirmed: Verbally with patient and arm band (see official TimeOut for additionalinformation) Time out: Immediately prior to the procedure a time out was completed Anticoagulation therapy: Yes Medication: Warfarin (Coumadin) Procedure Detail: Sterility Preparation: mask worn, sterile gloves worn, cap worn, sterile sheet used, sterile gown worn and full body drape Provider Hand Hygiene: antimicrobial soap and water Placement conditions: Elective Patient Position: Supine Prep: Chlorhexidine Local Anesthetic Used: Yes Catheter Type: Power PICC PICC Laterality: Right and Upper PICC Site: Arm PICC Vessel: Basilic Catheter size: 4 Fr Catheter Total Length (cm): 45 Catheter Internal Length (cm): 45 Catheter External Length (cm): 0 Lot Number: [id number] Number of Lumens: Single lumen Oximetric Catheter?: No Number of Needle Passes: 1 Placement: target vein identified, needle advanced into vein and blood aspirated and guidewire advanced into vein Radiologic Support with Sterile Technique: surface landmarks Identified, ultrasound guidance used and live fluoroscopy Sterile gel and probe cover used for ultrasound?: Yes Intravenous Verification: live fluoroscopy Outcomes/Complications: patient tolerated procedure well with no complications Estimated blood loss (mL): Minimal PA Catheter Placed?: No Post Insertion: Post Insertion Details: all ports aspirated, all ports flushed easily, guidewire was removed, examined and appears intact, line was sutured in place and dressing was applied Site cleansed: Chlorhexidine Line secured with: Adhesive Securement Device and Tissue Adhesive Dressing applied: Gel Chlorhexidine Gluconate, Transparent and Occlusive Tip Confirmation: Radiologic Tip Location: Cavoatrial [place]unction and Line Ok to use documented in this encounter Consult Notes * Elizabeth Miller RN - 01/25/2024 9:19 AM EDTAssociated Order(s): WOUND/OSTOMY CONSULT IP Wound / Ostomy Nurse Consult Note Wound ostomy consulted for wound care to bilateral LE's Recommendations: Vaseline to bilateral LE's daily Non adherent vaseline gauze/ABD/Kerlix to LLE daily and prn drainage Keep LE's elevated whenever possible to minimize edema Waffle cushion on chair when OOB with frequent position changes Wound Ostomy asked to see this 78 year old patient admitted from home via ED for Left ear wound dehiscence in pt with history of Left preauricular SCC, stage pT2 pN0 M0 Wound history/prehospital care: Vaseline to LE's Current Skin Wound Care: static pressure redistribution mattress, waffle cushion, and turn and reposition Wound Assessment: Seen on Gp2 awake, alert, OOB in chair. Sleeps in a chair at home and does not plan to get in a hospital bed while here. Bilateral LE's with venous stasis skin changes. L medial LE seeping serous drainage. Do not appear infected or cellulitic. Does not wear compression stockings and declined erasmo wraps to LE's. Non adherent vaseline gauze/ABD/kerlix applied to LLE. Instructed to keep LE's elevated whenever possible. Educated patient on importance of frequent repositioning and offloading of bony prominences, including elbows, heels, sacrum/buttocks, hips, in order to prevent pressure related skin injury. documented in this encounter Nursing Notes * Sesar Rajput RN - 01/26/2024 5:54 PM EDT SBAR FOR POST INTERVENTIONAL RADIOLOGY PROCEDURE Patient Name: Stephen Varela Age:[age] year old Sending to: [facility] [place] [facility] Procedure: PICC insertion Medications Administered: no - lidocaine only Special Instructions: PICC verified and authorized for use Concerns: no Report from: [place] Phone extension: [phone] Patient sent via: Bed Reason for SBAR handoff: Transfer Patient meets discharge criteria for Interventional Radiology. Vital signs stable. Dressing clean, dry, and intact. Patient awake and oriented to pre procedure baseline. Patient with no nausea/vomiting. All belongings sent with patient. Vital Signs: BP: 176/81 (01/26/241749) Temp: 36.5 C (97.7 F) (01/26/24 171) Pulse: 64 (01/26/241749) Resp: 20 (01/26/241749) SpO2: 92 % (01/26/241749) Weight: 108.7 kg (239 lb 9.6 oz) (01/26/24399) Height: 193 cm (6' 4") (01/24/24 1318) Neurological: Smith Coma Scale Eyes Open: Spontaneous (01/26/241722) Best Verbal Response: Verbally appropriate for age (01/26/241722) Best Motor Response: Obeys commands appropriate for age (01/26/241722) Coma Score: 15 (01/26/241722) Activity: Four Extremities LOC: Fully Awake or Pre-Anesthetic Level of Consciousness BP: Less than (+/-) 20% Resp: Deep Breathe and Cough Freely (01/25 1753) Respiratory: Pain Assessment Flowsheet Row Most Recent Value Pain Assessment Scale [facility] Scale 0-10 Pain Score 0 (no pain) Lines: Peripheral Line Right;Lower;Anterior Arm 22 Gauge (Active) Status Positive blood return;Alcohol disinfectant cap;Flushes easily;Capped/Locked 01/26/24 1500 Tubing Changed N/A 01/26/24 1500 Phlebitis Scale 0 01/26/24 1500 Infiltration Scale 0 01/26/24 1500 Site Description (Other) Without redness, swelling or drainage 01/26/24 1500 Site Intervention Flushed 01/26/24 1500 Dressing Assessment Dressing clean, dry, and intact;Transparent dressing 01/26/24 1500 Dressing Intervention Applied 01/26/24 1500 Number of days: 0 Power PICC Single Lumen Right;Upper Arm (Active) Status Positive blood return;Flushes easily;Capped/Locked;Alcohol disinfectant cap 01/26/241747 Tubing Changed N/A 01/26/241747 Site Description Without redness, swelling or drainage 01/26/241747 Site Intervention None required 01/26/241747 Dressing Assessment Dressing clean, dry, and intact;Transparent dressing 01/26/241747 Catheter Securement Device Applied 01/26/241747 Dressing Intervention Applied 01/26/241747 Number of days: 0 * Sesar Rajput RN - 01/26/2024 5:48 PM EDT stock crane operator note Name: Stephen Varela Date: 01/26/2024 Time: 5:23 PM Procedure: Peripherally Inserted Central Catheter Insertion Patient ID band checked using two identifiers. Patient placed on procedure table, supine position, with comfort measures intact and safety strap in place. Hemodynamic monitoring placed and initiated.Patient denies any current complaints at current time. RT staff prepares and preps for procedure. Procedure by physician. 5:38 PM Timeout performed by Dr. Supa Plascencia . Correct catheter/tube size verbalized and verified during timeout. 5:39 PM Procedure started by Dr. Supa Plascencia and Dr. Ramo Corona, and scrubbed RT Itzel Rush Ultrasound utilized for anatomical analysis of patient and access needle guidance. 1% buffered lidocaine given by doctor at right upper arm site. 5:40 PM Access obtained. Guidewire inserted. Images obtained. 5:45 PM PICC placed, see PICC line note. Images obtained. Lumens flushed and have positive blood return. Procedure ends. 5:48 PM Area cleaned. Secure Port IV applied to site. Stat Lock and IV chlorhexidine Tegaderm applied. Alcohol disinfectant cap applied. Patient tolerated procedure well without complications. All wires, catheters, sheaths and other devices have been inspected prior to the procedure for damage. This has been confirmed by the scrubbed RT and the operating physician. All items not intended to remain in the patient have been inspected, accounted for and have been removed from the patient atthe end of the procedure. This has been confirmed by the scrubbed RT and the operating physician. Pt did not receive conscious sedation for their procedure. Total medications given 1% buffered lidocaine: 3 mL Please see doctor's operative note for additional details. * Jeanette Rosales RN - 01/26/2024 2:43 PM EDT VAT: Able to access right basilic vein, but unable to thread the wire. Bedside PICC placement unsuccessful. Service made aware. * Jelena Duran RN - 01/26/2024 6:21 AM EDT Patient only IV site infiltrated and needed to be removed. Patient is refusing to have further IV access put in. Andrea Graham of ENT made aware. * Jelena Duran RN - 01/26/2024 6:19 AM EDT Throughout the night, patient refused to get out of chair and into bed to turn/repo. Patient educated on the importance of turn/repo to prevent skin breakdown and pressure injuries. After education, still refused. * Gardenia Albrecht RN - 01/25/2024 7:02 PM EDT Patient currently refusing PICC insertion. Service was in his room this afternoon encouraging him to allow placement. PICC Team will continue to follow recommendations when patient is willing to havePICC placed. * Jelena Duran RN - 01/25/2024 6:25 AM EDT Throughout the night, patient refused to get out of chair and into bed in order to turn/repo the patient. He stated "I am comfortable in the chair and I want to stay here all night." Patient was emphasized on the importance of turn/repo to prevent skin breakdown and pressure injuries. After education, still refused. * Franklin Briscoe RN - 01/24/2024 4:05 PM EDT PICC consult noted. Will await ID recommendations prior to line placement. Will continue to follow Any questions, please [employer] [facility] [place] PICC Team * Manpreet Nicholson RN - 01/24/2024 1:43 PM EDT VIRTUAL RN [facility] [place] [address] Name: Stephen Varela Location: [facility] [place] [facility] Date: 01/24/2024 Time: 1:43 PM I completed the Admission Navigator. The patient was in the hospital. I was in a private office space at a [facility] location. After connecting through [employer], the patient was identified by name and date of and / or wristband checked. Patient (or authorized legal representative government relations) was then in formed that this was a Virtual Nurse visit and was being conducted confidentially over secure lines. I used a headset and other methods to ensure confidentiality for the patient. Patient acknowledgedconsent and understanding of privacy and security of the Virtual Nurse visit. I presented the opportunity for the patient or authorized legal representative government relations to ask any questions regarding the visit today. The patient or authorized legal representative government relations agreed to participate. Stephen Varela Is a 78 y.o.m. admitted with an open left ear wound. He is A&Ox4, NASCIMENTO, able to answer all admission questions. Patient knows all his meds, their use and dosing schedule. States he did take his morning meds prior to going to the ENT Clinic today. Patient's call aguirre is within reach. Asked patient to ring for assistance if he should need to get out of the bedside chair. He voiced understanding, and stated he would comply. * Niurka Grullon, KATLYN - 01/24/2024 1:29 PM EDT Dual Licensed Skin Assessment completed by Niurka Fonseca And Ale Wilcox. The patient is/has a N/A Skin Breakdown (includes non blanchable erythema): No Noted previous skin graft on left outer thigh with scabs, scabs on right forearm, surgical wound onleft ear (wound from cancer), legs no openings but weeping. documented in this encounter Miscellaneous Notes * Ancillary Progress Note - Almita No MSW - 01/27/2024 9:15 AM EDT CARE MANAGEMENT - ADULT DISCHARGE NOTE [facility] [place] [address] Name: Stephen Varela Location: [facility] [place]/A Date: 01/27/2024 Time: 9:15 AM The following coordination of care and discharge plan has been coordinated with the care team, patient, family and/or caregiver according to the patients needs and preferences. Discharge Discharge Second Notice Important Message from Medicare delivered: No (01/27/24915) Discharge Transportation: Family/Friends drive (01/27/24915) Date of scheduled discharge transportation: 01/27/24 (01/27/24915) Patient declined post-hospital transition of care recommendation: N/A (01/27/24915) Final Discharge Plan (Complete only at time of Discharge): SNF (01/27/24915) Destination - Admitted Since 01/24/2024 Service Provider Selected Services Address Phone Fax Patient Preferred Last Updated [facility], [facility] [address] [place] [phone] -- Almita No MSW 01/27/2024 0915 Destination - Episodes Includes Destination providers with selected services from the active episodes listed below Level 2 Complex Case Management Episode start date: 07/12/2023 There are no active outsourced providers for this episode. Narrative: Per service, patient is medically ready for discharge today. Patient's son to provide transport to SNF. SW called [facility] and updated Rosalinda in admissions. SW emailed IV abx scripts to Rosalinda at [facility]: email "[email or web address]". Service, bedside nurse, [facility], and patient aware of discharge plan. Contact CM if discharge plan changes. * Care Plan - Lauren Loyola RN - 01/27/2024 12:34 AM EDT Clinical Goal(s): Pt will remain free from falls this shift. (01/26/24 1900) Possible barriers to meeting goal(s)/advancing plan of care: weakness Stability of the patient: Moderately stable - low risk of patient condition declining or worsening Summary regarding today's goal(s): Met: Pt remained free from falls this shift. Recommendations: Continue rounding, non skid socks, bed alarm, chair alarm * Communication - Ramo Corona MD - 01/26/2024 6:08 PM EDT PROCEDURE NOTE - Interventional Radiology [facility] [address] Name: Stephen Varela Location: [facility] G201/A Date/Time: 01/26/2024 6:08 PM PROCEDURE: RUE PICC placement. LAB ANIMAL TECHNOLOGIST : Dr. Ramo Corona. WOODEN FENCE ERECTOR : Dr. Supa Plascencia ANESTHESIA: local COMPLICATIONS: none SPECIMEN: none ESTIMATED BLOOD LOSS: negligible FINDINGS: RUE PICC placement. 45 cm, tip at SVC/RA junction, excellent return. PLAN : - Pt to return to floor under care of primary service. - PICC line is available for immediate use. Thank you for allowing us to participate in the ongoing care of this patient. Please don't hesitateto call or page with any additional concerns. Ramo Corona MD, FACP PGY 6 - Fellow Vascular and Interventional Radiology * Ancillary Progress Note - Faiza Villa RN - 01/26/2024 1:18 PM EDT CARE MANAGEMENT - ADULT TRANSITION NOTE [facility] [address] Name: Stephen Varela Location: [facility]201/A Date: 01/26/2024 Time: 1:18 PM Risk Stratification Risk Stratification Psycho Social / Medical Concerns Identified: Adjustment to illness/injury (01/25/24 1213) Readmission Risk Score: 23.53 (01/26/24 1200) AM-PAC Score With Stairs : 18 (01/26/24 0800) Caregiver Information Patient Contacts Name Relation Home Work Mobile AveryBrody Adult Child [phone] AveryDorothy (DIL) Other - (no specific identity) [phone] Brody Varela is the patient's surrogate decision maker Transition of Care Checklist Narrative: Patient discussed in AM Boost Rounds and chart reviewed. Patient has agreed to stay inpatient at this time final ID Recommendations are in Submitted for [facility] auth. Son will transport tomorrow. Patient needs PICC Line. [id number] NRD 01/29. CM will continue to follow for evolving needs. Anticipated Transportation at Discharge: Family Patient/Family Expectations: SNF Transition Planning Additional Considerations: N/A Care Management will continue to monitor and assist with discharge planning needs * Communication - Anahy Lion MD - 01/26/2024 12:20 PM EDT Notified that the patient returned to the unit. Was called by CM to notify him that his prison would not accept him if he is discharged AMA. I have reached out to the patient's nurse and PICC team to facilitate obtaining vascular access forIV abx (cefepime and vancomycin) per ID. Anahy Lion MD 01/26/2024 12:22 PM * Care Plan - Jelena Duran RN - 01/26/2024 2:56 AM EDT Clinical Goal(s): Patient will remain safe and free from falls during the shift (01/25/24 2300) Possible barriers to meeting goal(s)/advancing plan of care: clinical condition Stability of the patient: Moderately stable - low risk of patient condition declining or worsening Summary regarding today's goal(s): Met: patient remained safe and free from falls during the shift Recommendations: continue standard fall precautions, pt in chair with chair alarm in place, call aguirre on and within reach, pt AO x4 and assist x1 w/ walker, hourly rounding * Communication - Anahy Lion MD - 01/25/2024 6:03 PM EDT At around 5 or 6 PM, I saw and examined Mr. Varela with Dr. Garcia, ENT attending who performed left external auditory canal reconstruction, alongside Dr. Hinojosa who performed left auricle/facial wound dehiscence repair. Patient is eager for discharge home tomorrow. He does not want IV antibiotics, PICC line, or any further inpatient care. We discussed that he has a significant wound dehiscence with exposed bone and cartilage. Dr. Garcia emphasized that exposed bone and cartilage can be dangerous, as antibiotics have a harder time penetrating those tissues. We also discussed that the ear can dehisce even further or cause significant mortality if the underlying infection is not addressed. The patient vehemently expressed that he wants to go home tomorrow at 11 AM so that he can be present for a family event. He is tired of treatments/trips here in the hospital. Also emphasized that the PICC line will be done here and that IV therapies can be given at home. In essence, we told him that he will not necessarily require a long hospitalization at this time as long as he gets a PICC line and IV abx delivered to his him. He still expressed that he wishes to go home against medical advice. After discussing with Sulema Garcia and Micaela, I also personally spoke to the patient again later on in the evening around 7 PM to perform a dressing change consisting of 1/2 strength Dakins solution covered by dry gauze and held together with a Spandage dressing. At this time, I told the patient that if he wishes to leave, this would be against medical advice. I told him that he could possibly diefrom an uncontrolled infection. I also told him that he may have issues with his insurance coveringhis hospital stay if he does not follow medical recommendations. He expressed clear understanding, was grateful for our concern, and still wishes to leave on 01/25 in the AM. Reached out to ID team to inform them that the patient wishes to leave without IV abx and to inquire about any oral medication recommendations for his current infection (cx showing staph auerus). They stated that there are no reasonable IV antibiotics for this infection. The best oral medications, which will not be curative, would be linezolid (can only give 14 day course) and Augmentin. ID team will try again to discuss with patient on 01/25 in the AM. Anahy Lion MD PGY-2 Otolaryngology Resident 01/25/2024 7:47 PM Attending: Dudley Hinojosa MD * Ancillary Progress Note - Marielle Gonzalez MSW - 01/25/2024 12:15 PM EDT CARE MANAGEMENT - ADULT INITIAL SCREENING [facility] [place] [id number] Name: Stephen Varela Location: [place] [address]/A Date: 01/25/2024 Time: 12:15 PM Discussed patient with the interdisciplinary care team. This Interior Painter performed a chart review to complete admission screen and assessed needs for transition planning. The managed care manager role and services were explained and emotional support was provided. Chief Complaint: No chief complaint on file. Prior Living Arrangements What was your living situation prior to admission/observation?: Independently;At an Assisted LivingCenter (01/25/241212) Living Quarters: Assisted Living (01/25/241212) Do you have serious difficulty walking or climbing stairs? (5 years old or older): Yes (01/24/241328) History of falling: No (01/25/24840) Prior Level of Functioning Describe the patient's ability prior to admission/observation to perform ADLs: Requires assistance (01/24/241328) Requires assistance with: Dressing;Bathing;Grooming;Eating (01/24/241328) Describe the patient's mobility status prior to admission: Patient ambulates independently (01/25/241212) Patient uses assistive device: Yes (01/25/241212) If yes, choose:: Walker (01/25/241212) Caregiver Information Patient Contacts Name Relation Home Work Mobile Brody Varela Adult Child [phone] Dorothy Varela (DIL) Other - (no specific identity) [phone] Brody Varela is the patient's surrogate decision maker Risk Stratification/Psychosocial/Care Gaps Risk Stratification Psycho Social / Medical Concerns Identified: Adjustment to illness/injury (01/25/241212) Readmission Risk Score: 14.74 (01/25/24 1201) AM-PAC Score With Stairs : 18 (01/25/24 0800) Prior to Admission Services Services Prior to Admission [place] [employer]ER FINISHER Services (Services received within the last 30 days with exception, Psych within last two years): N/A (01/25/241212) [place] Dept[place] of Aging (PDA) Waiver Program: N/A (01/25/241212) [place] [employer] Transportation (Services received within the last 30 days): Facility Transportation (01/25/241212) Outpatient Interior Painter: No care team leader to display Comments: Pt resides at [facility] and ambulates with RW. CM to follow along for dispo needs and planning. Patient/Family Expectations: Return to [facility] vs SNF For further screening information, please refer to the Care Management flow document. * Care Plan - Jelena Duran RN - 01/25/2024 6:20 AM EDT Clinical Goal(s): Patient will remain safe and free from falls during the shift (01/24/24 2300) Possible barriers to meeting goal(s)/advancing plan of care: clinical condition Stability of the patient: Moderately stable - low risk of patient condition declining or worsening Summary regarding today's goal(s): Met: patient will remain safe and free from falls during the shift Recommendations: continue standard fall precautions, bed at low level and alarm on, call aguirre on and within reach, pt AO x4 and assist x1-2 w/ walker, hourly rounding * Communication - Essie Galarza DO - 01/24/2024 9:18 PM EDT Contacted by ENT regarding recommendations for his anticoagulation. As per ENT, he is a pT2 SCC patient and underwent primary resection followed by adjuvant RT. He dehisced after surgery and requiredanother surgery to reconstruct dehiscence. He dehisced again and is being admitted for active infection for IV abx and PICC placement. There is no plan for immediate surgical intervention, however, it is possible the patient may need intervention sooner rather than later. Patient is on warfarin forhis atrial fibrillation. Patient was not seen by me and formal consult was not placed, however, recommendations were given via TT and phone. INR checked on admission and is therapeutic at 3.2. His [id number] is also noted to be 5 so based on the bridge trial he is right on the cusp of needing bridge therapy. I informed the ENT team that as long as his INR is between 2-3 he remains therapeutic. Given that his INR is 3.2 today, would HOLDwarfarin at this time in case procedure is needed, however, would also not reverse at this time. Follow INR daily. If INR falls below 2, it is reasonable to start the patient on heparin infusion while admitted if procedure is likely needed. If procedure is felt likely not to be needed this admission, then would re-start patient on his [place] ICER FINISHER Warfarin (pharmacy to manage). If INR is not therapeutic (between 2-3) at time of discharge, then would highly consider sending the patient out on therapeuticLovenox with bridge to Warfarin which can be followed in the OP setting by anticoagulation clinic. documented in this encounter Plan of Treatment Upcoming Encounters Date Type Department Care Team (Late st Contact Info) Description 01/29/2024 5:45 PM EDT Anticoagulation Centralized Clinical Pharmacy Services, Sandra Gómez [address] [place] [address] [place] [address] [facility] [address] [facility] [place] [address] 02/13/2024 9:20 AM EDT Office Visit [place] [address] [address] [place] [address] Jad Boone MD [address] [facility] [address] [place] [address] 02/16/2024 10:45 AM EDT Office Visit Otolaryngology/Head & Neck/Facial Plastic Surgery [address] [place] [address] Gurvinder Garcia MD [address] [place] [address] 04/02/2024 10:40 AM EDT Office Visit Infectious Disease, [place] [address] [facility] [place] [address] Laura Arambula MD [address] [place] [id number] 06/06/2024 9:30 AM EDT Office Visit Cardiology, [address] [place] [address] Yas Mckinnon CRNP [address] [place] [address] 07/23/2024 9:30 AM EST Office Visit Rad[facility], [facility] [address] [facility] [address] Eros Faust MD [address] [place] [address] Scheduled Orders Name Type Priority Associated Diagnoses Orde r Schedule EKG EKG STAT Electrolyte abnormality One Time for 1 Occurrences starting 01/26/2024 until 01/26/2024 CBC WITH WBC DIFFERENTIAL Lab Timed Delayed wound healing Other chronic osteomyelitis, unspecified site (HCC) Every Week for 6 Occurrences starting 01/27/2024 until 02/25/2025 COMPREHENSIVE METABOLIC PANEL Lab Routine Delayed wound healing Other chronic osteomyelitis, unspecified site (HCC) Every Week for 6 Occurrences starting 01/27/2024 until 01/26/2025 VANCOMYCIN TROUGH Lab Routine Delayed wound healing Other chronic osteomyelitis, unspecified site (HCC) Every Week for 6 Occurrences starting 01/27/2024 until 01/26/2025 CRP (INFLAMMATORY MARKER) Lab Routine Delayed wound healing Other chronic osteomyelitis, unspecified site (HCC) Every Mon, Thurs for 12 Occurrences starting 01/27/2024 until 01/26/2025 Health Maintenance Due Date Last Done Comments Albumin/Creatinine Ratio 1963 Hepatitis C Screening 1963 Zoster Vaccines (2 of 3) 06/26/2014 05/01/2014 *SPIROMETRY ONCE FOR ASTHMA-ADULT 07/14/2022 *NEPHROLOGY REFERRAL DUE TO RESISTANT HTN 09/25/2023 COVID-19 Vaccine ( season) 2023 06/01/2023, 06/01/2023, 06/09/2022, Additional history exists Depression Screening 09/18/2024 09/18/2023 GFR 01/26/2025 01/27/2024, 06/0 02/2024, 12/22/2023, Additional history exists DTaP,Tdap,and Td Vaccines (2 [...] this encounter Medical Devices Implanted Type Area Blood Tester Fowl Device Identifier Shelf Expiration Date Model / Serial / Lot Connector Nerve 2mm 15mm - [id number] Implanted:Qty : 1 on 04/27/2023 by Dudley Hinojosa MD [place] [facility] [place] Left: Face [employer] [id number] 12/24/2024 [id number] / / [id number] Alloderm 4x7 Thin 0.8-1.2 (28 Units) - [id number] - [id number] Implanted:Qty : 28 on 04/27/2023 by Dudley Hinojosa MD at [place] [facility] [place] Left: Face ABBVIE 12/18/2024 [id number] / [id number] / [id number] Sheeting Monisha 2x3in X.020in - [id number] Implanted:Qty : 1 on 04/27/2023 by Dudley Hinojosa MD at [place] [facility] [place] Left: Ear [employer] 09/25/2024 / / [id number] Sheeting Monisha 2x3 In X.005in - [id number] Implanted:Qty : 1 on 12/12/2023 by Gurvinder Garcia MD at [place] [facility] [place] Left: Ear [employer] 04/05/2026- / [id number] Cath Pwr Picc Solo Inj 4f - [id number] Implanted:Qty : 1 on 01/26/2024 at [facility] [place] : ACCESS SYSTEMS [id number] 06/20/2025 [id number] / / [id number] documented as of this encounter Procedures Procedure Name Priority Date/Time Associated Diagnosis Comments PT INR Routine 01/27/2024 10:44 AM EDT BASIC METABOLIC PANEL Routine 01/27/2024 4:55 AM EDT CBC Routine 01/27/2024 4:55 AM EDT IR VENOUS ACCESS NON-MEDIPORT Routine 01/26/2024 5:48 PM EDT ANE [facility] CENTRAL LINE Routine 01/26/2024 5:45 PM EDT PT INR Routine 01/26/2024 6:12 AM EDT BASIC METABOLIC PANEL Routine 01/26/2024 5:04 AM EDT CBC Routine 01/26/2024 5:04 AM EDT PT INR Routine 01/25/2024 4:05 AM EDT PT INR Routine 01/24/2024 7:28 PM EDT documented in this encounter Results * (ABNORMAL) PT INR (01/27/2024 10:44 AM EDT) [facility] Prothrombin Time 19.8(H) 11.6 - 15.2 seconds 01/27/2024 11:34 AM EDT LABORATORY [facility] INR 1.7(H) 0.8 - 1.2 01/27/2024 11:34 AM EDT LABORATORY [facility] Blood Venous blood specimen / Unknown Venipuncture / Unknown 01/27/2024 10:44 AM EDT 01/27/2024 11:13 AM EDT Narrative LABORATORY [facility] - 01/27/2024 11:34 AM EDT Warfarin Therapy INR: 2.0-3.0 conventional anticoagulation INR: 2.5-3.5 high intensity anticoagulation Anahy Lion MD LAB BLOOD ORDERABLES LABORATORY [facility] [place] [address] [place] [address] * (ABNORMAL) BASIC METABOLIC PANEL (01/27/2024 4:55 AM EDT) BUN 24(H) 6 - 20 mg/dL 01/27/2024 5:47 AM EDT LABORATORY [facility] Creatinine 1.0 0.6 - 1.2 mg/dL 01/27/2024 5:47 AM EDT LABORATORY [facility] Estimated Glomerular Filtration Rate 79 >=60 mL/min 01/27/2024 5:47 AM EDT LABORATORY [facility] Comment:eGFR is calculated b ased on the CKD-EPI 2020 equation Sodium 142 135 - 146 mmol/L 01/27/2024 5:47 AM EDT LABORATORY [facility] Potassium 3.8 3.5 - 5.1 mmol/L 01/27/2024 5:47 AM EDT LABORATORY [facility] Chloride 106 98 - 107 mmol/L 01/27/2024 5:47 AM EDT LABORATORY [facility] CO2 26 22 - 32 mmol/L 01/27/2024 5:47 AM EDT LABORATORY [facility] Anion Gap 10 7 - 15 mmol/L 01/27/2024 5:47 AM EDT LABORATORY [facility] Glucose 102 70 - 120 mg/dL 01/27/2024 5:47 AM EDT LABORATORY [facility] Calcium 9.5 8.4 - 10.2 mg/dL 01/27/2024 5:47 AM EDT LABORATORY [facility] Blood Venous blood specimen / Unknown Venipuncture / Unknown 01/27/2024 4:55 AM EDT 01/27/2024 5:14 AM EDT Anahy Lion MD LAB BLOOD ORDERABLES LABORATORY [facility] [place] [address] [place] [address] * (ABNORMAL) CBC (01/27/2024 4:55 AM EDT) WBC 7.30 4.00 - 10.80 K/uL 01/27/2024 5:29 AM EDT LABORATORY [facility] RBC 3.88 4.50 - 5.25 M/uL 01/27/2024 5:29 AM EDT LABORATORY [facility] HGB 10.3(L) 14.0 - 16.8 g/dL 01/27/2024 5:29 AM EDT LABORATORY [facility] HCT 34.7(L) 40.0 - 48.4 % 01/27/2024 5:29 AM EDT LABORATORY [facility] MCV 89.4 82.0 - 99.5 fL 01/27/2024 5:29 AM EDT LABORATORY [facility] MCH 26.5 27.0 - 34.0 pg 01/27/2024 5:29 AM EDT LABORATORY [facility] MCHC 29.7 32.0 - 36.0 g/dL 01/27/2024 5:29 AM EDT LABORATORY [facility] RDW 16.9 11.5 - 15.5 % 01/27/2024 5:29 AM EDT LABORATORY [facility] PLT 152 140 - 400 K/uL 01/27/2024 5:29 AM EDT LABORATORY [facility] MPV 9.0 6.6 - 11.1 fL 01/27/2024 5:29 AM EDT LABORATORY [facility] nRBCs 0 <=0 /100 WBCs 01/27/2024 5:29 AM EDT LABORATORY [facility] Blood Venous blood specimen / Unknown Venipuncture / Unknown 01/27/2024 4:55 AM EDT 01/27/2024 5:14 AM EDT Anahy Lion MD LAB BLOOD ORDERABLES LABORATORY [facility] [place] [address] [place] [address] * IR VENOUS ACCESS NON-MEDIPORT (01/26/2024 5:48 PM EDT) Anatomical Region Laterality Modality Any X-Ray Angiograph y 01/27/2024 12:1 3 PM EDT Impressions 01/27/2024 2:54 PM EDT IMPRESSION: Successful placement of a right arm single lumen power-injectable PICC line. PLAN: The catheter may be used immediately. I have personally reviewed this examination and agree with the resident/fellow physician's interpretation. 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 He is s/p wide local excision of the tumor, left parotidectomy, left selective neck dissection, submental island flap reconstruction and split thickness skin graft to left external auditory canal, adjuvant radiation, and most recently, a complex reconstruction of wound dehiscence and left external auditory canal. SUPERVISING PHYSICIAN: Supa Plascencia MD., CAT[place]. OPERATING PHYSICIAN: Rmao Corona MD. SUPPORTING PROVIDER (AIRCRAFT ELECTRICIAN): RT Nisha. CONSENT: After a detailed discussion of the procedure, risks, benefits and alternative treatment options, informed consent was obtained. TIME OUT: A time out procedure was performed. The patient's identification was verified. Informed consent with agreement of procedure, site and position was obtained. All necessary equipment was available prior to procedure. CONTRAST: No contrast was administered. COMPLICATIONS: None. ANESTHESIA: Local lidocaine SEDATION TIME: N/A MEDICATIONS: See MAR PROCEDURE DESCRIPTION: Ultrasound demonstrated a patent right basilic vein. The right upper arm was prepped and draped in the usual sterile fashion. Using real- time ultrasound guidance, the vein was punctured utilizing a micropuncture needle. Ultrasound images showed tip of the micropuncture needle in the vein. Digital ultrasound images were acquired and digitally archived. A 4 Fr 45 cm single lumen power injectable PICC was placed under fluoroscopic guidance. Fluoroscopic images were digitally archived. The catheter was flushed with saline, secured, and an occlusive dressing was applied. The procedure was performed under the personal supervision of Dr. Plascencia who was present for the steve and critical portions of the procedure and immediately available for the entire procedure. FINDINGS: Ultrasound shows a compressible and anechoic right basilic vein. The catheter tip is in the superior cavoatrial junction. Procedure Note Supa Plascencia MD - 01/27/2024 PROCEDURE: Right Peripherally Inserted Central Catheter (PICC) Placement INDICATION: 78 year old male with a history of pT2 pN0 M0 leftpreauricular squamous cell carcinoma. He is s/p wide local excision of thetumor, left parotidectomy, left selective neck dissection, submentalisland flap reconstruction and split thickness skin graft to left externalauditory canal, adjuvant radiation, and most recently, a complexreconstruction of wound dehiscence and left external auditory canal. SUPERVISING PHYSICIAN: Supa Plascencia MD., [place]. OPERATING PHYSICIAN: Ramo Corona MD. SUPPORTING PROVIDER (AIRCRAFT ELECTRICIAN): RT Nisha. CONSENT: After a detailed discussion of the procedure, risks, benefits andalternative treatment options, informed consent was obtained. TIME OUT: A time out procedure was performed. The patient's identificationwas verified. Informed consent with agreement of procedure, site andposition was obtained. All necessary equipment was available prior toprocedure. CONTRAST: No contrast was administered. COMPLICATIONS: None. ANESTHESIA: Local lidocaine SEDATION TIME: N/A MEDICATIONS: See MAR PROCEDURE DESCRIPTION: Ultrasound demonstrated a patent right basilicvein. The right upper arm was prepped and draped in the usual sterilefashion. Using real-time ultrasound guidance, the vein was puncturedutilizing a micropuncture needle. Ultrasound images showed tip of themicropuncture needle in the vein. Digital ultrasound images were acquiredand digitally archived. A 4 Fr 45 cm single lumen power injectable PICCwas placed under fluoroscopic guidance. Fluoroscopic images were digitallyarchived. The catheter was flushed with saline, secured, and an occlusivedressing was applied. The procedure was performed under the personal supervision of who was present for the steve and critical portions of theprocedure and immediately available for the entire procedure. FINDINGS: Ultrasound shows a compressible and anechoic right basilic vein. Thecatheter tip is in the superior cavoatrial junction. IMPRESSION IMPRESSION: Successful placement of a right arm single lumen power-injectable PICCline. PLAN: The catheter may be used immediately. I have personally reviewed this examination and agree with the resident/fellow physician's interpretation. Anahy Lion MD RAD SPECIAL PROCEDUR ES * Central Line (01/26/2024 5:45 PM EDT) Narrative Supa Plascencia MD - 01/26/2024 5:45 PM EDT Sesar Rajput RN 01/26/2024 5:45 PM Central Line General Information and Staff: Performed by: Ramo Corona MD Supervised by: Supa Plascencia MD Procedure Date/Time: 01/26/2024 5:45 PM Patient Location: IR Indication: custodial vascular access Other: Antibiotics Patient identity confirmed: Verbally with patient and arm band (see official TimeOut for additional information) Time out: Immediately prior to the procedure a time out was completed Anticoagulation therapy: Yes Medication: Warfarin (Coumadin) Procedure Detail: Sterility Preparation: mask worn, sterile gloves worn, cap worn, sterile sheet used, sterile gown worn and full body drape Provider Hand Hygiene: antimicrobial soap and water Placement conditions: Elective Patient Position: Supine Prep: Chlorhexidine Local Anesthetic Used: Yes Catheter Type: Power PICC PICC Laterality: Right and Upper PICC Site: Arm PICC Vessel: Basilic Catheter size: 4 Fr Catheter Total Length (cm): 45 Catheter Internal Length (cm): 45 Catheter External Length (cm): 0 Lot Number: [id number] Number of Lumens: Single lumen Oximetric Catheter?: No Number of Needle Passes: 1 Placement: target vein identified, needle advanced into vein and blood aspirated and guidewire advanced into vein Radiologic Support with Sterile Technique: surface landmarks Identified, ultrasound guidance used and live fluoroscopy Sterile gel and probe cover used for ultrasound?: Yes Intravenous Verification: live fluoroscopy Outcomes/Complications: patient tolerated procedure well with no complications Estimated blood loss (mL): Minimal PA Catheter Placed?: No Post Insertion: Post Insertion Details: all ports aspirated, all ports flushed easily, guidewire was removed, examined and appears intact, line was sutured in place and dressing was applied Site cleansed: Chlorhexidine Line secured with: Adhesive Securement Device and Tissue Adhesive Dressing applied: Gel Chlorhexidine Gluconate, Transparent and Occlusive Tip Confirmation: Radiologic Tip Location: Cavoatrial Junction and Line Ok to use Supa Plascencia MD ANESTHESIA * (ABNORMAL) PT INR (01/26/2024 6:12 AM EDT) Prothrombin Time 26.1(H) 11.6 - 15.2 seconds 01/26/2024 6:45 AM EDT LABORATORY [facility] INR 2.4(H) 0.8 - 1.2 01/26/2024 6:45 AM EDT LABORATORY [facility] Blood Venous blood specimen / Unknown Venipuncture / Unknown 01/26/2024 6:12 AM EDT 01/26/2024 6:18 AM EDT Narrative LABORATORY [facility] - 01/26/2024 6:45 AM EDT Warfarin Therapy INR: 2.0-3.0 conventional anticoagulation INR: 2.5-3.5 high intensity anticoagulation Anahy Lion MD LAB BLOOD ORDERABLES LABORATORY [facility] [address] [place] [address] * (ABNORMAL) BASIC METABOLIC PANEL (01/26/2024 5:04 AM EDT) BUN 23(H) 6 - 20 mg/dL 01/26/2024 6:18 AM EDT LABORATORY C Creatinine 1.0 0.6 - 1.2 mg/dL 01/26/2024 6:18 AM EDT LABORATORY [facility] Estimated Glomerular Filtration Rate 78 >=60 mL/min 01/26/2024 6:18 AM EDT LABORATORY C Comment:eGFR is calculated b ased on the CKD-EPI 2020 equation Sodium 139 135 - 146 mmol/L 01/26/2024 6:18 AM EDT LABORATORY C Potassium 4.0 3.5 - 5.1 mmol/L 01/26/2024 6:18 AM EDT LABORATORY [facility] Chloride 105 98 - 107 mmol/L 01/26/2024 6:18 AM EDT LABORATORY C CO2 24 22 - 32 mmol/L 01/26/2024 6:18 AM EDT LABORATORY C Anion Gap 10 7 - 15 mmol/L 01/26/2024 6:18 AM EDT LABORATORY [facility] Glucose 95 70 - 120 mg/dL 01/26/2024 6:18 AM EDT LABORATORY [facility] Calcium 9.3 8.4 - 10.2 mg/dL 01/26/2024 6:18 AM EDT LABORATORY [facility] Blood Venous blood specimen / Unknown Venipuncture / Unknown 01/26/2024 5:04 AM EDT 01/26/2024 5:46 AM EDT Anahy Lion MD LAB BLOOD ORDERABLES Performing Organization Address City/[facility]/ZIP Co de Phone Number LABORATORY [facility] [address] [place] [address] * (ABNORMAL) CBC (01/26/2024 5:04 AM EDT) [facility] Signature WBC 6.82 4.00 - 10.80 K/uL 01/26/2024 6:01 AM EDT LABORATORY [facility] RBC 3.99 4.50 - 5.25 M/uL 01/26/2024 6:01 AM EDT LABORATORY [facility] HGB 10.5(L) 14.0 - 16.8 g/dL 01/26/2024 6:01 AM EDT LABORATORY [facility] HCT 35.4(L) 40.0 - 48.4 % 01/26/2024 6:01 AM EDT LAB[facility]ATORY [facility] MCV 88.7 82.0 - 99.5 fL 01/26/2024 6:01 AM EDT LABORATORY [facility] MCH 26.3 27.0 - 34.0 pg 01/26/2024 6:01 AM EDT LABORATORY [facility] MCHC 29.7 32.0 - 36.0 g/dL 01/26/2024 6:01 AM EDT LABORATORY [facility] RDW 16.7 11.5 - 15.5 % 01/26/2024 6:01 AM EDT LABORATORY [facility] PLT 141 140 - 400 K/uL 01/26/2024 6:01 AM EDT LABORATORY [facility] MPV 9.5 6.6 - 11.1 fL 01/26/2024 6:01 AM EDT LABORATORY [facility] nRBCs 0 <=0 /100 WBCs 01/26/2024 6:01 AM EDT LABORATORY [facility] Blood Venous blood specimen / Unknown Venipuncture / Unknown 01/26/2024 5:04 AM EDT 01/26/2024 5:46 AM EDT Anahy Lino MD LAB BLOOD ORDERABLES LAB[facility]ATORY [facility] [address] [place] [address] * (ABNORMAL) PT INR (01/25/2024 4:05 AM EDT) Prothrombin Time 31.4(H) 11.6 - 15.2 seconds 01/25/2024 4:51 AM EDT LAB[facility]ATORY [facility] INR 3.0(H) 0.8 - 1.2 01/25/2024 4:51 AM EDT LAB[facility]ATORY [facility] Blood Venous blood specimen / Unknown Venipuncture / Unknown 01/25/2024 4:05 AM EDT 01/25/2024 4:36 AM EDT Narrative LABORATORY [facility] - 01/25/2024 4:51 AM EDT Warfarin Therapy INR: 2.0-3.0 conventional anticoagulation INR: 2.5-3.5 high intensity anticoagulation Anahy Lion MD LAB BLOOD ORDERABLES Performing Organization Address City/State/[facility] de Phone Number LABORATORY [address] [address] * (ABNORMAL) PT INR (01/24/2024 7:28 PM EDT) Prothrombin Time 33.3(H) 11.6 - 15.2 seconds 01/24/2024 7:53 PM EDT LABORATORY [facility] INR 3.2(H) 0.8 - 1.2 01/24/2024 7:53 PM EDT LAB[facility]ATORY [facility] Blood Venous blood specimen / Unknown Venipuncture / Unknown 01/24/2024 7:28 PM EDT 01/24/2024 7:40 PM EDT Narrative LAB[facility]ATORY [facility] - 01/24/2024 7:53 PM EDT Warfarin Therapy INR: 2.0-3.0 conventional anticoagulation INR: 2.5-3.5 high intensity anticoagulation Anahy Lion MD LAB BLOOD ORDERABLES LABORATORY [address] [address] documented in this encounter Visit Diagnoses Diagnosis Delayed wound healing- Primary Open wound(s) (multiple) of unspecified site(s), complicated 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 Given 01/26/2024 8:23 PM EDT 650 mg Given 01/25/2024 7:52 PM EDT 650 mg Given 01/25/2024 12:16 AM EDT 650 mg Alteplase (Cathflo Activase) inj 2 mg 2 mg, IV Push, PRN line occlusion , Starting on Mon01/26/24 at 1207, Until 01/27/24 at 1856, For 15 doses, For use in Catheter occlusion to be administered by IV Therapy nurses only at [facility]. At [facility]: IV Therapy PICC RN, Nursing Coremaking Supervisor, MSICU RN's and Emergency Department RN's *Obtain Alteplase (CathFlo Activase) *Reconstitute Alteplase (CathFlo Activase) 2mg in 2.2ml sterile water *Instill Alteplase (CathFlo Activase) into occluded lumen(s) *After 30 minutes dwell time in catheter, assess catheter patency by attempting to aspirate blood. If catheter is patent withdraw 4-5 ml of blood to remove Alteplase (CathFlo Activase) and residual clot. Flush lumen with 10ml 0.9% normal saline *If catheter function is not restored allow for further dwell up to 120 minutes. *If catheter function is not restored, a second dose of Alteplase (CathFlo Activase) may be administered. *if catheter is stll not restored call a physician amLODIPine (Norvasc) tab 2.5 mg 2.5 mg, Oral, Daily(AM), First dose on Deb 01/25/24 at 0900, Until Discontinued Given 01/27/2024 8:14 AM EDT 2.5 mg Given 01/26/2024 7:49 AM EDT 2.5 mg Given 01/25/2024 8:31 AM EDT 2.5 mg atorvaSTATin (Lipitor) tab 20 mg 20 mg, Oral, Daily(AM), First dose on Mon01/25/24 at 0900, Until Discontinued, In the morning. Given 01/27/2024 8:14 AM EDT 20 mg Given 01/26/2024 7:49 AM EDT 20 mg Given 01/25/2024 8:31 AM EDT 20 mg buffered lidocaine 1 % inj Intradermal, ONCE PRN INTRA PROCEDURE, Starting on Mon01/26/24 at 1739, Until Mon01/26/24 at 1739, Intra-Op Given 01/26/2024 5:39 PM EDT 3 mL Arm Right Upper cefepime in D5W (Maxipime) ivpb (THREE hour infusion) 1 g 1 g, IV Piggyback, Q6HNOW, 20 doses, First dose on Mon01/24/24 at 2230, Last dose on Mon01/29/24 at 1630, THREE HOUR INFUSION New Bag 01/26/2024 4:04 AM EDT 1 g 16.67 mL/hr New Bag 01/25/2024 10:54 PM EDT 1 g 16.67 mL/hr Rate Change 01/25/2024 6:08 PM EDT 2.096 g/hr 104.8 mL/hr cefepime in D5W (Maxipime) ivpb (THREE hour infusion) 2 g 2 g, IV Piggyback, Q8H, 14 doses, First dose (after last modification) on Mon01/26/24 at 0630, Last dose on Mon01/30/24 at 1800, THREE HOUR INFUSION New Bag 01/27/2024 9:45 AM EDT 2 g 16.67 mL/hr New Bag 01/27/2024 2:42 AM EDT 2 g 16.67 mL/hr New Bag 01/26/2024 6:08 PM EDT 2 g 16.67 mL/hr cefepime in dextrose premix ivpb 2 g 2 g, IV Piggyback, ONCE, 1 dose, On Mon01/24/24 at 1800, Administer over 30 Minutes Rate Verify 01/24/2024 6:59 PM EDT 4 g/hr 100 mL/hr New Bag 01/24/2024 6:45 PM EDT 2 g 100 mL/hr chlorhexidine gluconate cloth 2 % pad External, [id number], First dose on Mon01/26/24 at 1245, Until Discontinued, Applied to appropriate patients per director of community education's recommendations following daily care. May use more than one Pad (cloth/wipe) as needed to complete care. DAKINS 1/2 strength (0.25%) topical solution Topical, BID PRN wound dehiscence, Starting on Mon01/25/24 at 1750, Until Mon01/27/24 at 1856, ENT to apply twice daily to left ear, ENT to use ONLY Drug Level Check - Vancomycin Random ONCE - TIMED LAB, 1 dose, First dose on Mon01/28/24 at 0600, STAT, Lalo as Order Check Addressed once lab level is drawn. If antibiotic time changes, please contact the Pharmacy to adjust Lab and Drug Level Check times. Furosemide (Lasix) tab 40 mg 40 mg, Oral, Daily(AM), First dose on Mon01/25/24 at 0900, Until Discontinued Given 01/27/2024 8:13 AM EDT 40 mg Given 01/26/2024 7:49 AM EDT 40 mg hEParin 100 UNIT/ML Lock Flush inj 300 Units 300 Units (3 mL), IV Push, PRN Other, PICC Line, Starting on Mon01/26/24 at 1207, Until 01/27/24 at 1856, For 1 dose, Prior to discharge, to each lumen Lidocaine 1 % (PF) inj 1 mL 1 mL, Intradermal, PRN Other, Line Insertion, Starting on Mon01/26/24 at 1207, Until Mon01/26/24 at 1418, For 1 dose Given By 01/26/2024 2:18 PM EDT 1 mL Lisinopril (Prinivil) tab 10 mg 10 mg, Oral, Daily(AM), First dose on Mon01/25/24 at 0900, Until Discontinued Given 01/27/2024 8:13 AM EDT 10 mg Given 01/26/2024 7:49 AM EDT 10 mg Given 01/25/2024 8:31 AM EDT 10 mg metoprolol succinate XL (toPROL XL) tab 25 mg 25 mg, Oral, Daily(AM), First dose on Mon01/25/24 at 0900, Until Discontinued, Hold for HR less than 60 or SBP below 100 and notify service if dose is held This med should NOT be Crushed or Chewed. Given 01/27/2024 8:13 AM EDT 25 mg Given 01/26/2024 7:49 AM EDT 25 mg Given 01/25/2024 8:31 AM EDT 25 mg metroNIDAZOLE (Flagyl) tab 500 mg 500 mg, Oral, TID(AM/NOON/HS), First dose on Mon01/25/24 at 1200, Until Discontinued Given 01/26/2024 5:01 AM EDT 500 m g Given 01/25/2024 9:12 PM EDT 500 mg Given 01/25/2024 11:03 AM EDT 500 mg metroNIDAZOLE in NSS (Flagyl) ivpb 500 mg 500 mg, IV Piggyback, Q8H, First dose on Mon01/24/24 at 2200, Until Discontinued Rate Verify 01/25/2024 5:30 AM EDT 500 mg/hr 100 mL/hr Restarted 01/25/2024 5:15 AM EDT 500 mg/hr 100 mL/hr New Bag 01/25/2024 5:09 AM EDT 500 mg 100 mL/hr multivitamin (Mvi) 1 Tablet 1 Tablet, Oral, DAILY(1900), First dose on Mon01/24/24 at 1900, Until Discontinued Given 01/26/2024 8:23 PM EDT 1 Tab let Given 01/25/2024 6:08 PM EDT 1 Tablet Given 01/24/2024 6:50 PM EDT 1 Tablet omeprazole (PriLOSEC) cap 20 mg 20 mg, Oral, Daily(AM), First dose on Mon01/25/24 at 0900, Until Discontinued, This med should NOT be Crushed or Chewed Given 01/27/2024 8:13 AM EDT 20 mg Given 01/26/2024 7:49 AM EDT 20 mg Given 01/25/2024 8:31 AM EDT 20 mg Oral Hygiene: Mouth Swab with dentifrice Oral, PCHS, First dose on Mon01/27/24 at 1300, Until Discontinued, To be used with 1.5% hydrogen peroxide solution or 0.05% cetylpyridium chloride oral rinse oxyCODONE (Oxy IR) tab 10 mg 10 mg, Oral, Q6H PRN Pain, Severe, Starting on Mon01/24/24 at 2300, Until 01/27/24 at 1856 oxyCODONE (Oxy IR) tab 5 mg 5 mg, Oral, Q6H PRN Pain, Moderate, Starting on Mon01/24/24 at 2259, Until Mon01/27/24 at 1856 Polyethylene Glycol 3350 (Miralax) oral powder 17 g 17 g (1 Packet), Oral, Daily(AM), First dose on Mon01/25/24 at 0900, Until Discontinued, Mix in 8 oz of water, juice, soda, coffee, or tea. Given 01/27/2024 8: 13 AM EDT 17 g sodium chloride 0.9 % flush central line 10 mL 10 mL, IV Push, Q8H, First dose on Mon01/27/24 at 1400, Until Discontinued, TO UNUSED PORTS Do not flush if lock, PICC, or central line not in place; IV infusing or unable to flush. Given 01/27/2024 2:0 0 PM EDT 10 mL sodium chloride 0.9 % flush/inj 10 mL 10 mL, IV Push, Q8H, First dose on Mon01/26/24 at 1400, Until Discontinued, To each lumen if no medications are ordered. And before and after drawing labs from PICC catheter. Given 01/27/2024 2:00 PM EDT 10 mL Given 01/27/2024 5:44 AM EDT 10 mL Given 01/26/2024 11:14 PM EDT 10 mL Vancomycin (Vancocin) 1000 mg in NSS 250 mL ivpb LOCKED DOSE 1,000 mg, IV Piggyback, [id number], First dose on Mon01/25/24 at 0700, Until Discontinued New Bag 01/25/2024 6:20 PM EDT 1,000 mg 255 mL/hr New Bag 01/25/2024 8:35 AM EDT 1,000 mg 255 mL/hr Vancomycin (Vancocin) 1000 mg in NSS 250 mL ivpb LOCKED DOSE 1,000 mg, IV Piggyback, [id number], First dose on Mon01/26/24 at 1230, Until Discontinued New Bag 01/27/2024 12:50 PM EDT 1,000 mg 255 mL/hr New Bag 01/27/2024 12:55 AM EDT 1,000 mg 255 mL/hr New Bag 01/26/2024 3:33 PM EDT 1,000 mg 255 mL/hr vancomycin (Vancocin) 2,500 mg in NSS 500 mL ivpb 2,500 mg, IV Piggyback, ONCE, 1 dose, On Mon01/24/24 at 1900 Restarted 01/24/2024 10:08 PM EDT 1,000 mg/hr 214 mL/hr New Bag 01/24/2024 8:18 PM EDT 2,500 mg 214 mL/hr documented in this encounter Active and Recently Administered Medications Times are shown in EDT. Scheduled Medication Order 01/25/2024 01/26/2024 01/27/2024 amLODIPine (Norvasc) tab 2.5 mg 2.5 mg, Oral, Daily(AM), First dose on Deb 01/25/24 at 0900, Until Discontinued 0831 (Given - Provider: Shelly Colon RN) 0749 (Given - Provider: Isaura Broderick RN) 0814 (Given - Provider: Isaura Broderick, KATLYN) atorvaSTATin (Lipitor) tab 20 mg 20 mg, Oral, Daily(AM), First dose on Mon01/25/24 at 0900, Until Discontinued, In the morning. 0831 (Given - Provider: Shelly Colon RN) 0749 (Given - Provider: Isaura Broderick RN) 0814 (Given - Provider: Isaura Broderick, KATLYN) cefepime in D5W (Maxipime) ivpb (THREE hour infusion) 1 g (CANCELED) 1 g, IV Piggyback, Q6HNOW, 20 doses, First dose on Mon01/24/24 at 2230, Last dose on Mon01/29/24 at 1630, THREE HOUR INFUSION 0138 (Stopped - Provider: Jelena Duran RN)0424 (New Bag - Provider: Jelena Duran RN)0458 (Paused - Provider: Jelena Duran RN)0506 (Rate Change - Provider: Jelena Duran RN)0507 (Paused - Provider: Jelena Duran RN)0509 (Restarted - Provider: Jelena Duran RN)0512 (Paused - Provider: Jelena Duran RN)0515 (Rate Change - Provider: Jelena Duran RN)0530 (Rate Verify - Provider: Jelena Duran RN)1005 (New Bag - Provider: Shelly Colon RN)1459 (New Bag - Provider: Shelly Colon RN)1808 (Rate Verify - Provider: Jelena Duran RN)1808 (Paused - Provider: Jelena Duran RN)1808 (Rate Change - Provider: Jelena Duran RN)1814 (Stopped - Provider: Jelena Duran RN)2254 (New Bag - Provider: Jelena Duran RN) 0154 (Stopped - Provider: Jelena Duran RN)0404 (New Bag - Provider: Jelena Duran RN)0552 (Stopped - Provider: Jelena Duran RN) cefepime in D5W (Maxipime) ivpb (THREE hour infusion) 2 g 2 g, IV Piggyback, Q8H, 14 doses, First dose (after last modification) on Mon01/26/24 at 0630, Last dose on Mon01/30/24 at 1800, THREE HOUR INFUSION 0630 (Not Given - Provider: Isaura Broderick RN - Reason: Refused-Notify Provider)1808 (New Bag - Provider: Isaura Broderick RN)2108 (Stopped - Provider: Lauren Loyola RN) 0242 (New Bag - Provider: Lauren Loyola RN)0542 (Stopped - Provider: Lauren Loyola RN)0945 (New Bag - Provider: Isaura Broderick RN)1856 (Due: Stopped) chlorhexidine gluconate cloth 2 % pad External, [id number], First dose on Mon01/26/24 at 1245, Until Discontinued, Applied to appropriate patients per director of community education's recommendations following daily care. May use more than one Pad (cloth/wipe) as needed to complete care. 1245 (Not Given - Provider: Isaura Broderick RN - Reason: Refused-Notify Provider) 1000 (Not Given - Provider: Isaura Broderick RN - Reason: Refused-Notify Provider) Drug Level Check - Vancomycin Random ONCE - TIMED LAB, 1 dose, First dose on Mon01/28/24 at 0600, STAT, Lalo as Order Check Addressed once lab level is drawn. If antibiotic time changes, please contact the Pharmacy to adjust Lab and Drug Level Check times. Furosemide (Lasix) tab 40 mg 40 mg, Oral, Daily(AM), First dose on Mon01/25/24 at 0900, Until Discontinued 0900 (Not Given - Provider: Shelly Colon RN - Reason: Refused-Notify Provider - Comment: Dr. Anahy Lion, otolaryngology made aware) 0749 (Given - Provider: Isaura Broderick, KATLYN) 08 (Given - Provider: Isaura Broderick RN) Lisinopril (Prinivil) tab 10 mg 10 mg, Oral, Daily(AM), First dose on Mon01/25/24 at 0900, Until Discontinued 0831 (Given - Provider: Shelly Colon RN) 0749 (Given - Provider: Isaura Broderick RN) 08 (Given - Provider: Isaura Broderick RN) metoprolol succinate XL (toPROL XL) tab 25 mg 25 mg, Oral, Daily(AM), First dose on Mon01/25/24 at 0900, Until Discontinued, Hold for HR less than 60 or SBP below 100 and notify service if dose is held This med should NOT be Crushed or Chewed. 0831 (Given - Provider: Shelly Colon RN) 0749 (Given - Provider: Isaura Broderick RN) 08 (Given - Provider: Isaura Broderick RN) metroNIDAZOLE (Flagyl) tab 500 mg (CANCELED) 500 mg, Oral, TID(AM/NOON/HS), First dose on Mon01/25/24 at 1200, Until Discontinued 1103 (Given - Provider: Shelly Colon RN)2111 (Given - Provider: Jelena Duran RN) 500 (Given - Provider: Jelena Duran RN) metroNIDAZOLE in NSS (Flagyl) ivpb 500 mg (CANCELED) 500 mg, IV Piggyback, Q8H, First dose on Mon01/24/24 at 2200, Until Discontinued 0509 (New Bag - Provider: Jelena Duran RN)0511 (Paused - Provider: Jelena Duran RN)0515 (Restarted - Provider: Jelena Duran RN)0530 (Rate Verify - Provider: Jelena Duran RN)0614 (Stopped - Provider: Jelena Duran RN) multivitamin (Mvi) 1 Tablet 1 Tablet, Oral, DAILY(1900), First dose on Mon01/24/24 at 1900, Until Discontinued 1807 (Given - Provider: Shelly Colon RN) 2022 (Given - Provider: Lauren Loyola RN) omeprazole (PriLOSEC) cap 20 mg 20 mg, Oral, Daily(AM), First dose on Mon01/25/24 at 0900, Until Discontinued, This med should NOT be Crushed or Chewed 0831 (Given - Provider: Shelly Colon RN) 0749 (Given - Provider: Isaura Broderick, KATLYN) 0813 (Given - Provider: Isaura Broderick RN) Oral Hygiene: Mouth Swab with dentifrice Oral, PCHS, First dose on Mon01/27/24 at 1300, Until Discontinued, To be used with 1.5% hydrogen peroxide solution or 0.05% cetylpyridium chloride oral rinse 1300 (Not Given - Provider: Isaura Broderick RN - Reason: Refused-Notify Provider) Polyethylene Glycol 3350 (Miralax) oral powder 17 g 17 g (1 Packet), Oral, Daily(AM), First dose on Mon01/25/24 at 0900, Until Discontinued, Mix in 8 oz of water, juice, soda, coffee, or tea. 0900 (Not Given - Provider: Shelly Colon RN - Reason: Refused-Notify Provider - Comment: Dr. Anahy Lion, otolaryngology made aware) 0749 (Not Given - Provider: Isaura Broderick RN - Reason: Refused-Notify Provider) 0813 (Given - Provider: Isaura Broderick RN) sodium chloride 0.9 % flush central line 10 mL 10 mL, IV Push, Q8H, First dose on Mon01/27/24 at 1400, Until Discontinued, TO UNUSED PORTS Do not flush if lock, PICC, or central line not in place; IV infusing or unable to flush. 1400 (Given - Provider: Isaura Broderick, KATLYN) sodium chloride 0.9 % flush/inj 10 mL 10 mL, IV Push, Q8H, First dose on Mon01/26/24 at 1400, Until Discontinued, To each lumen if no medications are ordered. And before and after drawing labs from PICC catheter. 1400 (Given - Provider: Isaura Broderick RN)2314 (Given - Provider: Gladis John RN) 0544 (Given - Provider: Lauren Loyola RN)1400 (Given - Provider: Isaura Broderick, KATLYN) Vancomycin (Vancocin) 1000 mg in NSS 250 mL ivpb LOCKED DOSE (CANCELED) 1,000 mg, IV Piggyback, [id number], First dose on Mon01/25/24 at 0700, Until Discontinued 0835 (New Bag - Provider: Shelly Colon RN)1820 (New Bag - Provider: Shelly Colon RN)1919 (Stopped - Provider: Jelena Duran RN) Vancomycin (Vancocin) 1000 mg in NSS 250 mL ivpb LOCKED DOSE 1,000 mg, IV Piggyback, [id number], First dose on Mon01/26/24 at 1230, Until Discontinued 1533 (New Bag - Provider: Isaura Broderick RN) 0055 (New Bag - Provider: Lauren Loyola RN)0155 (Stopped - Provider: Lauren Loyola RN)1250 (New Bag - Provider: Isaura Broderick RN)1856 (Due: Stopped) PRN Medication Order 01/25/2024 01/26/2024 01/27/2024 Acetaminophen (Tylenol) tab 650 mg 650 mg, Oral, Q6H PRN Pain, Mild, Starting on Deb 01/25/24 at 0001, Until 01/27/24 at 1856, Maximum of 4 grams (4000 mg) per day. 0016 (Given - Provider: Jelena Duran RN)1951 (Given - Provider: Jelena Duran RN) 2022 (Given - Provider: Lauren Loyola RN) albuterol (VENTOLIN HFA/PROVENTIL HFA) inhaler 2 Puff, Inhalation, Q4H PRN Dyspnea, Starting on Mon01/24/24 at 1534, Until 01/27/24 at 1856, SEND INHALER WITH PATIENT! WASTE INFO ( IF NOT SENT HOME WITH PATIENT) : Return unused medication to pharmacy in zip lock bag for disposal into black container labeled SP. Alteplase (Cathflo Activase) inj 2 mg 2 mg, IV Push, PRN line occlusion , Starting on Mon01/26/24 at 1207, Until 01/27/24 at 1856, For 15 doses, For use in Catheter occlusion to be administered by IV Therapy nurses only at [facility]. At [facility]: IV Therapy PICC RN, Nursing Coremaking Supervisor, MSICU RN's and Emergency Department RN's *Obtain Alteplase (CathFlo Activase) *Reconstitute Alteplase (CathFlo Activase) 2mg in 2.2ml sterile water *Instill Alteplase (CathFlo Activase) into occluded lumen(s) *After 30 minutes dwell time in catheter, assess catheter patency by attempting to aspirate blood. If catheter is patent withdraw 4-5 ml of blood to remove Alteplase (CathFlo Activase) and residual clot. Flush lumen with 10ml 0.9% normal saline *If catheter function is not restored allow for further dwell up to 120 minutes. *If catheter function is not restored, a second dose of Alteplase (CathFlo Activase) may be administered. *if catheter is stll not restored call a physician buffered lidocaine 1 % inj (COMPLETED) Intradermal, ONCE PRN INTRA PROCEDURE, Starting on Mon01/26/24 at 1739, Until Mon01/26/24 at 1739, Intra-Op 1739 (Given - Provider: Ramo Corona MD) DAKINS 1/2 strength (0.25%) topical solution Topical, BID PRN wound dehiscence, Starting on Deb 01/25/24 at 1750, Until 01/27/24 at 1856, ENT to apply twice daily to left ear, ENT to use ONLY hEParin 100 UNIT/ML Lock Flush inj 300 Units 300 Units (3 mL), IV Push, PRN Other, PICC Line, Starting on Mon01/26/24 at 1207, Until 01/27/24 at 1856, For 1 dose, Prior to discharge, to each lumen Lidocaine 1 % (PF) inj 1 mL (COMPLETED) 1 mL, Intradermal, PRN Other, Line Insertion, Starting on Mon01/26/24 at 1207, Until Mon01/26/24 at 1418, For 1 dose 1418 (Given By - Provider: Michael Davis RN - Comment: by Jeanette Rosales RN) milk of magnesia (Mom) oral susp 30 mL 30 mL, Oral, DAILY PRN Constipation, Starting on Mon01/24/24 at 1535, Until 01/27/24 at 1856 oxyCODONE (Oxy IR) tab 10 mg 10 mg, Oral, Q6H PRN Pain, Severe, Starting on Mon01/24/24 at 2300, Until 01/27/24 at 1856 oxyCODONE (Oxy IR) tab 5 mg 5 mg, Oral, Q6H PRN Pain, Moderate, Starting on Mon01/24/24 at 2259, Until 01/27/24 at 1856 Polyethylene Glycol 3350 (Miralax) oral powder 17 g 17 g, Oral, DAILY PRN Other, constipation, Starting on Mon01/24/24 at 1535, Until 01/27/24 at 1856, Mix entire contents of 238 grams of Miralax bottle with 64 oz of clear or light colored Gatorade or water. Stir/shake until entire contents are completely dissolved. Have the patient drink 8 oz (240 mL) of solution every 15 minutes until solution is gone. Drink the solution slowly to prevent nausea and stomach upset. You may drink it directly or use a straw. 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
--- OUTSIDE RECORDS SUMMARY | 2024-04-25 23:52 | External Medical Summary | Summary of Care ---
Author Name Unknown Organization [facility] Address [address] [place] [address] Phone [phone] Care Team Providers Care Cheesemaker Helper Name Role Phone Jad Boone MD Primary Care Provider Reason for Visit * Reason Comments Follow Up Encounter Details Date Type Department Care Team (Late st Contact Info) Description 01/24/2024 10:00 AM EDT Office Visit Otolaryngology/Head & Neck/Facial Plastic Surgery [address], [place] [phone] Monik Edge CRNP [address] [place] [address] History of squamous cell carcinoma*; [...] Suspended Additional Information Vitamin D3 1.25 MG (54161 UT) Oral Capsule Take 1 Capsule by mouth once a week. 12 Capsule 3 01/30/2023 Suspended Additional Information Patient taking differently:50,000 Units Oral QWEEK,Every Monday, Reported on 01/18/2024 Atorvastatin Calcium 20 MG Oral Tablet (Lipitor)Indicati ons:Coronary artery disease involving [place] coronary artery of [place] heart without angina pectoris TAKE 1 TABLET, [...] (Lasix)Indication s:Chronic diastolic CHF (congestive heart failure) ([facility]) Take 2 Tablets by mouth in the morning. 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 Denies facial weakness. 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 Patient was reviewed at multidisciplinary H&N tumor board with recommendation for surgical resection. Past Medical History: Reviewed. Past Surgical History: Reviewed. Family History: Reviewed. Medications and Allergies: Reviewed. 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 current use of anticoagulant therapy Coronary artery disease involving [place] coronary artery without angina pectoris PAF (paroxysmal [...] Anticoagulation Centralized Clinical Pharmacy Services, Sandra Gómez [address] [place] [address] [place] [address] [facility] 58 60 [facility] [place] [address] 02/13/2024 9:20 AM EDT Office Visit [place] [address] [place] [address] Jad Boone MD [facility]2 [facility] [address] [place] [address] 02/16/2024 10:45 AM EDT Office Visit Otolaryngology/Head & Neck/Facial Plastic Surgery [address] [place] [address] Gurvinder Garcia MD [address] [place] [address] 06/06/2024 9:30 AM EDT [facility] [place] [facility] [address] Yas Mckinnon CRNP 400 [facility] [place] [address] 07/23/2024 9:30 AM EST Office Visit Radiation Oncology, [facility] [address] [facility] [address] Eros Faust MD [address] [place] [address] [place] [address] Scheduled Orders Name Type Priority Associated Diagnoses [...] this encounter Medical Devices Implanted Type Area Water Plant Operator Device Identifier Shelf Expiration Date Model / Serial / Lot Connector Nerve 2mm 15mm - [id number] Implanted:Qty: 1 on 04/27/2023 by Dudley Hinojosa MD at [facility] Left: Face [employer] [id number] 12/24/2024 [id number] / / [id number] Alloderm 4x7 Thin 0.8-1.2 (28 Units) - [id number] - [id number] Implanted:Qty: 28 on 04/27/2023 by Dudley Hinojosa MD [place] [facility] [place]: Face ABBVIE 12/18/2024 [id number] / [id number] 0 / [id number] Sheeting Monisha 2x3in X.020in - [id number] Implanted:Qty: 1 on 04/27/2023 by Dudley Hinojosa MD [place] [facility] Left: Ear [employer] 09/25/2024- / / [id number] Sheeting Monisha 2x3 In X.005in - [id number] Implanted:Qty: 1 on 12/12/2023 by Gurvinder Garcia MD [place] [facility] Left: Ear [employer] 04/05/2026- / [id number] documented as of this encounter Visit Diagnoses Diagnosis History of squamous cell carcinoma- Primary Personal history of malignant neoplasm of other site S/P flap graft Other postprocedural status Infection of left external ear Infective otitis externa, unspecified documented in this encounter Advance Directives Documents on File Type Date Recorded Patient Parts Facilitator Expl anation POLST 04/26/2023 [place] [facility] FOR LIFE-SUSTAINING TREATMENT * Full Code (Latest [...] Agents on File Name Relationship Healthcare [facility] Adult Child Power of Mixer Operator Hot Metal Care Teams Cheesemaker Helper Relationship Specialty Start Date End Date Jad Boone MD [address] [place] [address] PCP - General Family Medicine 09/20/23 documented as of this encounter
--- OUTSIDE RECORDS SUMMARY | 2024-04-25 23:52 | External Medical Summary | Summary of Care ---
Author Name Unknown Organization [facility] Address [address] [place] [address] Phone [phone] Care Team Providers Care Metrologist Name Role Phone Jad Boone MD Primary Care Provider Reason for Visit * Reason Comments Follow Up Encounter Details Date Type Department Care Team (Late st Contact Info) Description 01/24/2024 10:00 AM EDT Office Visit Otolaryngology/Head & Neck/Facial Plastic Surgery [address], [place] [phone] Monik Edge CRNP [address] [place] [address] History of squamous cell carcinoma*; [...] 1 11/15/2022 Active Vitamin D3 1.25 MG (04940 UT) Oral Capsule Take 1 Capsule by mouth once a week. 12 Capsule 3 01/30/2023 Active Additional Information Patient taking differently:50,000 Units Oral QWEEK,Every Monday, Reported on 01/18/2024 Atorvastatin Calcium 20 MG Oral Tablet (Lipitor)Indicatio ns:Coronary artery disease involving [place] coronary artery of [place] heart without angina pectoris TAKE 1 TABLET, [...] a day 56 g 2 09/29/2023 Active Additional Information Patient not taking.Reported on 01/18/2024 Ventolin HFA 108 (90 Base) MCG/ACT Inhalation Aerosol Solution Inhale 2 Puffs by mouth every 4 hours as needed for Shortness of Breath. Active Lisinopril 10 MG Oral Tablet (Prinivil)Indicati ons:Chronic heart failure with preserved ejection fraction (HFpEF) ([facility]) Take 1 Tablet by mouth in the morning. 90 Tablet 3 11/10/2023 Active Bacitracin Zinc 500 UNIT/GM External Ointment Apply topically to affected area 2 times a day. Apply to left ear/neck suture/staple lines and bolsters twice per day. Please keep the bolsters moist. 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 103.317 mL 12/22/2023 Active oxyCODONE HCl 5 MG Oral Capsule (Oxy IR) Take 1 Capsule by mouth every 6 hours as needed. Active Warfarin Sodium 5 MG Oral Tablet (Coumadin)Indicati ons:PAF (paroxysmal atrial fibrillation) (HCC) Take 1 Tablet by mouth every evening. 8: 10 mg; Otherwise 5 mg every e, Wed, Mon; 7.5 mg all other days and as directed by [facility] 135 Tablet 1 01/02/2024 Active Cephalexin 500 MG Oral Capsule Take 1 Capsule by mouth in the morning and 1 Capsule before bedtime. 14 Capsule 01/02/2024 Active Additional Information Patient not taking.Reported on 01/18/2024 [...] mouth daily as needed for Constipation. Active guaiFENesin 400 MG Oral Tablet Take 1 Tablet by mouth every 4 hours as needed for Congestion. 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 Denies facial weakness. 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 Patient was reviewed at multidisciplinary H&N tumor board with recommendation for surgical resection. Past Medical History: Reviewed. Past Surgical History: Reviewed. Family History: Reviewed. Medications and Allergies: Reviewed. Patient Active Problem List Diagnosis Heart failure, systolic, due to CAD (HCC) [facility] current use of anticoagulant therapy Coronary artery disease involving [place] coronary artery without angina pectoris PAF (paroxysmal [...] this encounter Nursing Notes * Hiwot Butler V MED NICHO - 01/24/2024 10:17 AM EDT Patient was [...] personnel. Patient voiced full comprehension of instructions. Hiwot Butler MED ASSIST 01/24/2024 10:17 AM documented in this encounter Plan of Treatment Upcoming Encounters Date Type Department Care Team (Late st Contact Info) Description 01/29/2024 5:45 PM EDT Anticoagulation Centralized Clinical Pharmacy Services, Sandra Gómez [address] [place] [address] [place] [address] [facility] 58 60 [facility] [place] [address] 02/13/2024 9:20 AM EDT Office Visit [facility] [address] [place] [address] Jad Boone MD [address] [place] [address] 02/16/2024 10:45 AM EDT Office Visit Otolaryngology/Head & Neck/Facial Plastic Surgery [address] [place] [address] Gurvinder Garcia MD [address] [place] [address] 06/06/2024 9:30 AM EDT Office Visit Cardiology, [place] [address] [place] [address] Yas Mckinnon CRNP [address] [place] [address] 07/23/2024 9:30 AM EST Office Visit Radiation Oncology, [facility] [address] [place] [address] Eros Faust MD [address] [place] [address] Scheduled Orders Name Type Priority Associated Diagnoses [...] this encounter Medical Devices Implanted Type Area Refrigerating Machine Operator Device Identifier Shelf Expiration Date Model / Serial / Lot Connector Nerve 2mm 15mm - [id number] Implanted:Qty: 1 on 04/27/2023 by Dudley Hinojosa [place] [facility] [place] Face [employer] [id number] 12/24/2024 [id number] / / [id number] Alloderm 4x7 Thin 0.8-1.2 (28 Units) - [id number] - [id number] Implanted:Qty: 28 on 04/27/2023 by Dudley Hinojosa MD [place] [facility] [place]: Face ABBVIE 12/18/2024 [id number] / [id number] 0 / [id number] Sheeting Monisha 2x3in X.020in - [id number] Implanted:Qty: 1 on 04/27/2023 by Dudley Hinojosa MD [place] [facility]: Ear [employer] 09/25/2024 [id number] Sheeting Monisha 2x3 In X.005in - [id number] Implanted:Qty: 1 on 12/12/2023 by Gurvinder Garcia MD [place] [facility]: Ear [employer] 04/05/2026 [id number] documented as of this encounter Visit Diagnoses Diagnosis History of squamous cell carcinoma- Primary Personal history of malignant neoplasm of other site S/P flap graft Other postprocedural status Infection of left external ear Infective otitis externa, unspecified documented in this encounter Advance Directives Documents on File Type Date Recorded Patient Paper Rewinder Expl anation POLST 04/26/2023 [place] OR [facility] FOR LIFE-SUSTAINING TREATMENT * Full Code [...] Communication Brody Avery Adult Child Power of Cnp Care Teams Metrologist Relationship Specialty Start Date End Date Mely, Jad Estrella, [place] [address] [facility] [address] [facility] [place] [address] PCP - General Family Medicine 09/20/23 documented as of this encounter
--- OUTSIDE RECORDS SUMMARY | 2024-04-25 23:52 | External Medical Summary ---
Author Name Unknown Address Unknown Organization [id number]:LABORATORY [facility] [place] - [address] [facility] [address] Laboratory Report Ordering Provider Test Date Status ABELINO MILLER 01/26/2024 05:04:00 Final Observation Date Value Abnormality Reference (Units ) Status WBC, Total 01/26/2024 05:04:00 6.82 4.00-10.80 (K/uL) Final RBC 01/26/2024 05:04:00 3.99 4.50-5.25 (M/uL) Final Hemoglobin 01/26/2024 05:04:00 10.5 Below low normal 14.0-16.8 (g/dL) Final HCT 01/26/2024 05:04:00 35.4 Below low normal 40.0-48.4 (%) Final MCV 01/26/2024 05:04:00 88.7 82.0-99.5 (fL) Final MCH 01/26/2024 05:04:00 26.3 27.0-34.0 (pg) Final MCHC 01/26/2024 05:04:00 29.7 32.0-36.0 (g/dL) Final RDW 01/26/2024 05:04:00 16.7 11.5-15.5 (%) Final Platelets 01/26/2024 05:04:00 141 140-400 (K/uL) Final MPV 01/26/2024 05:04:00 9.5 6.6-11.1 (fL) Final Nucleated erythrocytes/100 leukocytes [Ratio] in Blood by Automated count 01/26/2024 05:04:00 0 <=0 (/100 WBCs) Final Performing Location LABORATORY [facility] [place] - [address] [place] [address]
--- OUTSIDE RECORDS SUMMARY | 2024-04-25 23:52 | External Medical Summary ---
Author Name Unknown Address Unknown Organization [id number]:LABORATORY [facility] [place] - [address] [place] [address] Laboratory Report Ordering Provider Test Date Status ABELINO MILLER 01/26/2024 05:04:00 Final Observation Date Value Abnormality Reference (Units ) Status BUN 01/26/2024 05:04:00 23 Above high normal 6-20 (mg/dL) Final Creatinine 01/26/2024 05:04:00 1.0 0.6-1.2 (mg/dL) Final Glomerular filtration rate/1.73 sq M.predicted [Volume Rate/Area] in Serum, Plasma or Blood by Creatinine-based formula (CKD-EPI) 01/26/2024 05:04:00 78 >=60 (mL/min) Final eGFR is calculated based on the CKD-EPI 2020 equation Sodium 01/26/2024 05:04:00 139 135-146 (m mol/L) Final Potassium 01/26/2024 05:04:00 4.0 3.5-5.1 (m mol/L) Final Cl 01/26/2024 05:04:00 105 98-107 (mm ol/L) Final CO2 01/26/2024 05:04:00 24 22-32 (mmo l/L) Final Anion gap 01/26/2024 05:04:00 10 7-15 (mmol /L) Final Glucose 01/26/2024 05:04:00 95 70-120 (mg /dL) Final Calcium 01/26/2024 05:04:00 9.3 8.4-10.2 ( mg/dL) Final Performing Location LABORATORY [facility] [place] - [address] [place] [address]
--- OUTSIDE RECORDS SUMMARY | 2024-04-25 23:52 | External Medical Summary ---
Author Name Unknown Address Unknown Organization K01:[facility]ORY [facility] [place] [address] [place] [address] Laboratory Report Ordering Provider Test Date Status ABELINO MILLER 01/26/2024 06:12:00 Final Warfarin Therapy
INR: 2 .0-3.0 conventional anticoagulation
INR: 2.5- 3.5 high intensity anticoagulation Observation Date Value Abnormality Reference (Units ) Status PT 01/26/2024 06:12:00 26.1 Above high normal 11 .6-15.2 (seconds) Final INR 01/26/2024 06:12:00 2.4 Above high normal 0. 8-1.2 Final Performing Location LAB[facility]ORY [facility] [place] [address] [place] [address]
--- OUTSIDE RECORDS SUMMARY | 2024-04-25 23:52 | External Medical Summary ---
Author Name Unknown Address Unknown Organization [id number]:LABORATORY [facility] - [address] [place] [address] Laboratory Report Ordering Provider Test Date Status SENG GARCIA 01/29/2024 06:23:00 Final Warfarin Therapy
INR: 2 .0-3.0 conventional anticoagulation
INR: 2.5- 3.5 high intensity anticoagulation Observation Date Value Abnormality Reference (Units ) Status PT 01/29/2024 06:23:00 19.4 Above high normal 11 .6-15.2 (seconds) Final INR 01/29/2024 06:23:00 1.6 Above high normal 0. 8-1.2 Final Performing Location LABORATORY [facility] - [address] [place] [address]
--- OUTSIDE RECORDS SUMMARY | 2024-04-25 23:52 | External Medical Summary ---
Author Name Unknown Address Unknown Organization K1F:LABORATORY [facility] - [address] [place] [address] Laboratory Report Ordering Provider Test Date Status SENG GARCIA 01/29/2024 06:23:00 Final Observation Date Value Abnormality Reference (Units ) Status WBC, Total 01/29/2024 06:23:00 8.25 4.00-10.80 (K/uL) Final RBC 01/29/2024 06:23:00 4.13 4.50-5.25 (M/uL) Final Hemoglobin 01/29/2024 06:23:00 11.0 Below low normal 14.0-16.8 (g/dL) Final HCT 01/29/2024 06:23:00 36.6 Below low normal 40.0-48.4 (%) Final MCV 01/29/2024 06:23:00 88.6 82.0-99.5 (fL) Final MCH 01/29/2024 06:23:00 26.6 27.0-34.0 (pg) Final MCHC 01/29/2024 06:23:00 30.1 32.0-36.0 (g/dL) Final RDW 01/29/2024 06:23:00 17.2 11.5-15.5 (%) Final Platelets 01/29/2024 06:23:00 186 140-400 (K/uL) Final MPV 01/29/2024 06:23:00 10.3 6.6-11.1 (fL) Final Nucleated erythrocytes/100 leukocytes [Ratio] in Blood by Automated count 01/29/2024 06:23:00 0 <=0 (/100 WBCs) Final Performing Location LABORATORY [facility] - [address] [place] [address]
--- OUTSIDE RECORDS SUMMARY | 2024-04-25 23:52 | External Medical Summary ---
Author Name Unknown Address Unknown Organization K01[place] [address] [place] [address] Laboratory Report Ordering Provider Test Date Status ABELINO MILLER 01/27/2024 04:55:00 Final Observation Date Value Abnormality Reference (Units ) Status BUN 01/27/2024 04:55:00 24 Above high normal 6-20 (mg/dL) Final Creatinine 01/27/2024 04:55:00 1.0 0.6-1.2 (mg/dL) Final Glomerular filtration rate/1.73 sq M.predicted [Volume Rate/Area] in Serum, Plasma or Blood by Creatinine-based formula (CKD-EPI) 01/27/2024 04:55:00 79 >=60 (mL/min) Final eGFR is calculated based on the CKD-EPI 2020 equation Sodium 01/27/2024 04:55:00 142 135-146 (m mol/L) Final Potassium 01/27/2024 04:55:00 3.8 3.5-5.1 (m mol/L) Final Cl 01/27/2024 04:55:00 106 98-107 (mm ol/L) Final CO2 01/27/2024 04:55:00 26 22-32 (mmo l/L) Final Anion gap 01/27/2024 04:55:00 10 7-15 (mmol /L) Final Glucose 01/27/2024 04:55:00 102 70-120 (mg /dL) Final Calcium 01/27/2024 04:55:00 9.5 8.4-10.2 ( mg/dL) Final Performing Location [facility] [place] [address] [place] [address]
--- OUTSIDE RECORDS SUMMARY | 2024-04-25 23:52 | External Medical Summary ---
Author Name Unknown Address Unknown Organization K01:LABORATORY [facility] [place] - [address] [place] [address] Laboratory Report Ordering Provider Test Date Status ABELINO MILLER 01/25/2024 04:05:00 Final Warfarin Therapy
INR: 2 .0-3.0 conventional anticoagulation
INR: 2.5- 3.5 high intensity anticoagulation Observation Date Value Abnormality Reference (Units ) Status PT 01/25/2024 04:05:00 31.4 Above high normal 11 .6-15.2 (seconds) Final INR 01/25/2024 04:05:00 3.0 Above high normal 0. 8-1.2 Final Performing Location LABORATORY [facility] [place] - [address] [place] [address]
--- OUTSIDE RECORDS SUMMARY | 2024-04-25 23:52 | External Medical Summary ---
Author Name Unknown Address Unknown Organization K01:LABORATORY [facility] [place] - [address] [place] [address] Laboratory Report Ordering Provider Test Date Status ABELINO MILLER 01/24/2024 19:28:00 Final Warfarin Therapy
INR: 2 .0-3.0 conventional anticoagulation
INR: 2.5- 3.5 high intensity anticoagulation Observation Date Value Abnormality Reference (Units ) Status PT 01/24/2024 19:28:00 33.3 Above high normal 11 .6-15.2 (seconds) Final INR 01/24/2024 19:28:00 3.2 Above high normal 0. 8-1.2 Final Performing Location LABORATORY [facility] [place] - [address] [place] [address]
--- OUTSIDE RECORDS SUMMARY | 2024-04-25 23:52 | External Medical Summary | Summary of Care ---
Author Name Unknown Organization [facility] Address [address] [place] [address] Phone [phone] Care Team Providers Care Box Inspector Name Role Phone Jad Boone MD Primary Care Provider Reason for Visit * Reason Comments Follow Up Encounter Details Date Type Department Care Team (Late st Contact Info) Description 01/24/2024 10:00 AM EDT Office Visit Otolaryngology/Head & Neck/Facial Plastic Surgery [address], [place] [phone] Monik Edge CRNP [address] [place] [address] History of squamous cell carcinoma*; [...] 1 11/15/2022 Active Vitamin D3 1.25 MG (56182 UT) Oral Capsule Take 1 Capsule by mouth once a week. 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 Denies facial weakness. 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 Patient was reviewed at multidisciplinary H&N tumor board with recommendation for surgical resection. Past Medical History: Reviewed. Past Surgical History: Reviewed. Family History: Reviewed. Medications and Allergies: Reviewed. Patient Active Problem List Diagnosis Heart failure, systolic, due to CAD (HCC) assisted current use of anticoagulant therapy Coronary artery disease involving [place] coronary artery without angina pectoris PAF (paroxysmal [...] Anticoagulation Centralized Clinical Pharmacy Services, Sandra Gómez [address] [place] [address] IV[place] [address] [facility] 58 60 [facility] [place] Max [address] 02/13/2024 9:20 AM EDT Office Visit [facility] [address] [place] [address] Jad Boone MD [address] [place] [address] 02/16/2024 10:45 AM EDT Office Visit Otolaryngology/Head & Neck/Facial Plastic Surgery [address] [place] [address] Gurvinder Garcia MD [address] [place] [address] 06/06/2024 9:30 AM EDT Office Visit Cardiology, [place] [address] [place] [address] Yas Mckinnon CRNP [address] [place] [address] 07/23/2024 9:30 AM EST Office Visit Radiation Oncology, [facility] [address] [place] [address] Eros Faust MD [address] [place] [address] Scheduled Orders Name Type Priority Associated Diagnoses [...] this encounter Medical Devices Implanted Type Area Spare Hand Device Identifier Shelf Expiration Date Model / Serial / Lot Connector Nerve 2mm 15mm - [id number] Implanted:Qty: 1 on 04/27/2023 by Dudley Hinojosa MD [place] [facility] [place]: Face [employer] [id number] 12/24/2024 [id number] / / [id number] Alloderm 4x7 Thin 0.8-1.2 (28 Units) - [id number] - [id number] Implanted:Qty: 28 on 04/27/2023 by Dudley Hinojosa MD at [place] [facility] Left: Face ABBVIE 12/18/2024 [id number] / [id number] / [id number] Sheeting Monisha 2x3in X.020in - [id number] Implanted:Qty: 1 on 04/27/2023 by Dudley Hinojosa MD at [place] [facility] Left: Ear [employer] 09/25/2024 [id number] Sheeting Monisha 2x3 In X.005in - [id number] Implanted:Qty: 1 on 12/12/2023 by Gurvinder Garcia MD at [place] [facility] Left: Ear [employer]IED [employer] 04/05/2026 [id number] documented as of this encounter Visit Diagnoses Diagnosis History of squamous cell carcinoma- Primary Personal history of malignant neoplasm of other site S/P flap graft Other postprocedural status Infection of left external ear Infective otitis externa, unspecified documented in this encounter Advance Directives Documents on File Type Date Recorded Patient Record Clerk Expl anation POLST 04/26/2023 [place] OR [facility] [...] Communication Brody Avery Adult Child Power of Theatrical Scenic Designer Care Teams Box Inspector Relationship Specialty Start Date End Date Mely, Jad Estrella, MD [address] [facility] [address] [facility] [place] [address] PCP - General Family Medicine 09/20/23 documented as of this encounter
--- OUTSIDE RECORDS SUMMARY | 2024-04-25 23:52 | External Medical Summary ---
Author Name Unknown Address Unknown Organization K1F:LABORATORY [facility] - [address] [facility]. [place] [address] Laboratory Report Ordering Provider Test Date Status SENG GARCIA 01/29/2024 06:23:00 Final Observation Date Value Abnormality Reference (Units ) Status SYNC LEUKOCYTES IN BLOOD BY AUTOMATED COUNT 01/29/2024 06:23:00 8.25 4.00-10.80 (K/uL) Final Segs 01/29/2024 06:23:00 65.7 40.0-75.0 (%) Final Lymphs % 01/29/2024 06:23:00 11.8 Below low normal 18.0-42.0 (%) Final Monos 01/29/2024 06:23:00 9.2 1.0-11.0 (%) Final Eosinophils 01/29/2024 06:23:00 12.1 Above high normal 0.0-6.0 (%) Final Basos 01/29/2024 06:23:00 0.8 0.0-2.0 (%) Final Immature Granulocyte, Percent 01/29/2024 06:23:00 0.4 0.0-2.0 (%) Final Absolute Segs 01/29/2024 06:23:00 5.42 1.80-7.70 (K/uL) Final Lymphs, absolute 01/29/2024 06:23:00 0.97 Below low normal 1.00-4.80 (K/ul) Final Monos, Abs 01/29/2024 06:23:00 0.76 0.00-1.10 (K/uL) Final Eos, Abs 01/29/2024 06:23:00 1.00 Above high normal 0.00-0.70 (K/uL) Final Basos, Abs 01/29/2024 06:23:00 0.07 0.00-0.20 (K/uL) Final Immature Granulocytes, Number 01/29/2024 06:23:00 0.03 0.00-0.20 (K/uL) Final Performing Location LABORATORY [facility] - [facility] [address] [place] [address]
--- OUTSIDE RECORDS SUMMARY | 2024-04-25 23:52 | External Medical Summary ---
Author Name Unknown Address Unknown Organization K01:LABORATORY [facility] - [address] [facility] [address] [facility] [address] Laboratory Report Ordering Provider Test Date Status ABELINO MILLER 01/27/2024 04:55:00 Final Observation Date Value Abnormality Reference (Units ) Status WBC, Total 01/27/2024 04:55:00 7.30 4.00-10.80 (K/uL) Final RBC 01/27/2024 04:55:00 3.88 4.50-5.25 (M/uL) Final Hemoglobin 01/27/2024 04:55:00 10.3 Below low normal 14.0-16.8 (g/dL) Final HCT 01/27/2024 04:55:00 34.7 Below low normal 40.0-48.4 (%) Final MCV 01/27/2024 04:55:00 89.4 82.0-99.5 (fL) Final MCH 01/27/2024 04:55:00 26.5 27.0-34.0 (pg) Final MCHC 01/27/2024 04:55:00 29.7 32.0-36.0 (g/dL) Final RDW 01/27/2024 04:55:00 16.9 11.5-15.5 (%) Final Platelets 01/27/2024 04:55:00 152 140-400 (K/uL) Final MPV 01/27/2024 04:55:00 9.0 6.6-11.1 (fL) Final Nucleated erythrocytes/100 leukocytes [Ratio] in Blood by Automated count 01/27/2024 04:55:00 0 <=0 (/100 WBCs) Final Performing Location LAB[facility]ORY [facility] - [address] [place] [address]
--- OUTSIDE RECORDS SUMMARY | 2024-04-25 23:52 | External Medical Summary | Summary of Care ---
Author Name Unknown Organization [facility] Address [address] [place] [address] Phone [phone] Care Team Providers Care Records Clerk Name Role Phone Jad Boone MD Primary Care Provider Reason for Visit * Reason Comments Follow Up Encounter Details Date Type Department Care Team (Late st Contact Info) Description 01/24/2024 10:00 AM EDT Office Visit Otolaryngology/Head & Neck/Facial Plastic Surgery [address], [place] [phone] Monik Edge CRNP [address] [place] [address] History of squamous cell carcinoma*; [...] Suspended Additional Information Vitamin D3 1.25 MG (74389 UT) Oral Capsule Take 1 Capsule by mouth once a week. 12 Capsule 3 01/30/2023 Suspended Additional Information Patient taking differently:50,000 Units Oral QWEEK,Every Monday, Reported on 01/18/2024 Atorvastatin Calcium 20 MG Oral Tablet (Lipitor)Indicat ions:Coronary artery disease involving [place] co[place] coronary artery of [place] co[place] heart without angina pectoris TAKE 1 TABLET, BY MOUTH, IN THE MORNING. 90 Tablet 1 03/04/2023 Suspended Additional Information Acetaminophen 325 MG Oral Tablet (Tylenol) Take 2 Tablets by mouth every 6 hours as needed for Pain, Mild. 30 Tablet 04/03/2023 Suspended Additional Information Multivitamin Adult Oral Tablet Take by mouth every evening. Suspended Furosemide 20 MG Oral Tablet (Lasix)Indicatio ns:Chronic diastolic CHF (congestive heart failure) ([facility]) Take 2 Tablets by mouth in the morning. 180 Tablet 1 08/15/2023 Suspended Additional Information Metoprolol Succinate ER 25 MG Oral Tablet Extended Release 24 Hour (Toprol XL)Indications:C hronic diastolic CHF (congestive heart failure) ([facility]) Take 1 Tablet by mouth in the morning. 90 Tablet 3 08/15/2023 Suspended Additional Information Diphenhyd-Calami ne-Benzyl Alc 2-14-10.5 % External CreamIndications [...] Breath. Suspended Lisinopril 10 MG Oral Tablet (Prinivil)Indica tions:Chronic heart failure with preserved ejection fraction (HFpEF) ([facility]) Take 1 Tablet by mouth in [...] Suspended Warfarin Sodium 5 MG Oral Tablet (Coumadin)Indica tions:PAF (paroxysmal atrial fibrillation) (HCC) Take 1 Tablet by mouth every evening. 2/8: 10 mg; Otherwise 5 mg every Tue, Wed, Fri; 7.5 mg all other days and as directed by [facility] 135 Tablet 1 01/02/2024 Suspended [...] mouth daily as needed for Constipation. Suspended Sennosides-Docus ate Sodium 8.6-50 MG Oral Tablet (Senna S) Take 1 Tablet by mouth daily as needed for Constipation. Suspended Polyethylene Glycol 3350 17 GM/SCOOP Oral Powder (MiraLax) Take 17 g by mouth daily as needed for Constipation. Suspended guaiFENesin 400 MG Oral Tablet Take 1 Tablet by mouth every 4 hours as needed for Congestion. 4 Discontinued documented as of this encounter [...] fibrillation) 10/18/2018 Coronary artery disease invo lving [place] co[place] coronary artery without angina pectoris 01/07/2015 longterm current use of anticoagulant therapy 0 05/01/2014 [...] Blood Pressure 170/95 01/24/2024 1:11 PM EDT asy mptomatic. Pt anxious as did not anticipate admission Pulse 58 01/24/2024 1:11 PM EDT Temperature [...] by local excision 3 years ago in [place]. Denies facial weakness. 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 Patient was reviewed at multidisciplinary H&N tumor board with recommendation for surgical resection. Past Medical History: Reviewed. Past Surgical History: Reviewed. Family History: Reviewed. Medications and Allergies: Reviewed. 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 Report called to Rosie Dhillon RN according to SBAR protocol. Patient escorted to unit via wheelchair by conventional mortgage underwriter and Rodrigo Bocanegra Clincal coop student. Report called to unit by Estuardo PICKENS * Hiwot Butler V, MED ASSIST - [...] Centralized Clinical Pharmacy Services, Sandra Gómez [address] [place] [address] IV[place] [address] [facility] 58 60 [facility] [place] Max [address] 02/13/2024 9:20 AM EDT Office Visit [place] [address] [place] [address] Jad Boone MD [facility] [address] [place] [address] 02/16/2024 10:45 AM EDT Office Visit Otolaryngology/Head & Neck/Facial Plastic Surgery [address] [place] [address] Gurvinder Garcia MD [address] [place] [address] 06/06/2024 9:30 AM EDT Office Visit Cardiology, [place] [address] [place] [address] Yas Mckinnon CRNP [address] [place] [address] 07/23/2024 9:30 AM EST Office Visit Radiation Oncology, [facility] [address] [place] [address] Eros Faust MD [address] [place] [address] Pending Results Name Type Priority Associated Diagnoses Date /Time CULTURE, WOUND, DEEP, AEROBIC AND ANAEROBIC Lab Routine History of squamous cell carcinoma S/P flap graft Infection of left external ear 01/24/2024 12:46 PM EDT Health Maintenance Due Date Last Done Comments [...] this encounter Medical Devices Implanted Type Area Outdoor Studies Professor Device Identifier Shelf Expiration Date Model / Serial / Lot Connector Nerve 2mm 15mm - [id number] Implanted:Qty: 1 on 04/27/2023 by Dudley Hinojosa MD [place] [facility] [place] Face [employer] [id number] 12/24/2024 [id number] / / [id number] Alloderm 4x7 Thin 0.8-1.2 (28 Units) - [id number] - [id number] Implanted:Qty: 28 on 04/27/2023 by Dudley Hinojosa MD [place] [facility] [place]: Face ABBVIE 12/18/2024 [id number] / [id number] / [id number] Sheeting Monisha 2x3in X.020in - [id number] Implanted:Qty: 1 on 04/27/2023 by Dudley Hinojosa MD [place] [facility] [place]: Ear [employer]IED [employer] 09/25/2024-700- / / [id number] Sheeting Monisha 2x3 In X.005in - [id number] Implanted:Qty: 1 on 12/12/2023 by Gurvinder Garcia MD [place] [facility] Left: Ear [employer]IED [employer] 04/05/2026-700- / / [id number] documented as of this encounter Procedures Procedure Name Priority Date/Time Associated Diagnosis Comments CULTURE, WOUND, DEEP, AEROBIC AND ANAEROBIC Routine 01/24/2024 12:46 PM EDT History of squamous cell carcinoma S/P flap graft Infection of left external ear documented in this encounter Visit Diagnoses Diagnosis History of squamous cell carcinoma- Primary Personal history of malignant neoplasm of other site S/P flap graft Other postprocedural status Infection of left external ear Infective otitis externa, unspecified documented in this encounter Advance Directives Documents on File Type Date Recorded 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
--- OUTSIDE RECORDS SUMMARY | 2024-04-25 23:53 | External Medical Summary ---
Author Name Unknown Address Unknown Organization K1F:LABORATORY [facility] - [address] [place] [address] Laboratory Report Ordering Provider Test Date Status CHERI CARTER 01/17/2024 05:50:00 Final Warfarin Therapy
INR: 2 .0-3.0 conventional anticoagulation
INR: 2.5- 3.5 high intensity anticoagulation Observation Date Value Abnormality Reference (Units ) Status PT 01/17/2024 05:50:00 36.6 Above high normal 11 .6-15.2 (seconds) Final INR 01/17/2024 05:50:00 3.6 Above high normal 0. 8-1.2 Final Performing Location LABORATORY [facility] - [address] [place] [address]
--- OUTSIDE RECORDS SUMMARY | 2024-04-25 23:53 | External Medical Summary | Summary of Care ---
Author Name Unknown Organization [facility] Address [address] [place] [address] Phone [phone] Care Team Providers Care Online Media Director Name Role Phone Jad Boone MD Primary Care Provider Reason for Visit * Reason Comments Dosage Adjustment Via Phone (anticoag Cl inic) Encounter Details Date Type Department Care Team (Latest Contact Info) Description 01/17/2024 5:45 PM EDT Anticoagulation Pharmacy Call Center [phone] [place] [address] [facility] [address] [place] [address] PAF (paroxysmal atrial fibrillation) ([facility])* Allergies Active Allergy Reactions Criticality Noted Date Comments Bee Venom Hives High 03/14/2017 documented as of this encounter (statuses as of 01/17/2024) Medications Medication Sig Dispensed Refills Start Date End Date Status Omeprazole 20 MG Oral Capsule Delayed Release (PriLOSEC) Take 1 Capsule by mouth in the morning. 90 Capsule 1 11/15/2022 Active Vitamin D3 1.25 MG (98935 UT) Oral Capsule Take 1 Capsule by mouth once a week. 12 Capsule 3 01/30/2023 Active Additional Information Patient taking differently:50,000 Units Oral QWEEK,Every Monday, Reported on 05/18/2023 Atorvastatin Calcium 20 MG Oral Tablet (Lipitor)Indicatio ns:Coronary artery disease involving [place] coronary artery of [place] heart without angina pectoris TAKE 1 TABLET, BY MOUTH, IN THE MORNING. 90 Tablet 1 03/04/2023 Active Acetaminophen 325 MG Oral Tablet (Tylenol) Take 2 Tablets by mouth every 6 hours as needed for Pain, Mild. 30 Tablet 04/03/2023 Active Multivitamin Adult Oral Tablet Take by mouth every evening. Active Furosemide 20 MG Oral Tablet (Lasix)Indications :Chronic diastolic CHF (congestive heart failure) ([facility]) Take 2 Tablets by mouth in the morning. 180 Tablet 1 08/15/2023 Active Metoprolol Succinate ER 25 MG Oral Tablet Extended Release 24 Hour (Toprol XL)Indications:Chr onic diastolic CHF (congestive heart failure) ([facility]) Take 1 Tablet by mouth in [...] heart failure with preserved ejection fraction (HFpEF) ([facility]) Take 1 Tablet by mouth in [...] Oral Tablet (Coumadin)Indicati ons:PAF (paroxysmal atrial fibrillation) ([facility]) Take 1 Tablet by mouth every evening. 2/8: 10 mg; Otherwise 5 mg every e, Wed, Fri; 7.5 mg all other days and as directed by [facility] 135 Tablet 1 01/02/2024 Active Cephalexin 500 MG Oral Capsule Take 1 Capsule by mouth in the morning and 1 Capsule before bedtime. 14 Capsule 01/02/2024 Active amLODIPine Besylate 2.5 MG Oral Tablet (Norvasc) Take 1 Tablet by mouth in the morning. 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 0 05/01/2014 Overview: ICD-10 update of inactive term Heart failure, systolic, due to CAD 08/28/2012 Overview: ECHO 2011 - Segmental wall abnormality, severe hypokinesis of anterior septum, anterior wall, apex, distal inferior septum, distal inferior wall, and distal posterior wall EF 33% Mass of left parotid gland documented as of this encounter (statuses as of 01/17/2024) Resolved Problems Problem Noted Date Diagnosed Date [...] as of this encounter (statuses as of 01/17/2024) Immunizations Name Administration Dates Next Due COVID-19 [...] as of this encounter Progress Notes * Domonique Bonilla PHARM Tech - 01/17/2024 3:00 PM EDT Contacts Type Contact Phone/Fax 01/17/2024 02:55 PM EDT Phone (Outgoing) Stephen Varela (Self) [phone] (M) Left Message Subjective Patient Findings Negatives: Signs/symptoms of bleeding, Change in health, Change in activity, Upcoming invasive procedure, Missed doses, Extra doses, Change in medications, Change in diet/appetite, Bruising Advised patient to contact Anticoagulation Clinic if any unusual bruising or bleeding, recent illness, changes in medication, or questions/concerns. PT/INR results, Coumadin dose instructions, and next PT/INR date communicated as noted by Pharmacist: Yes ARMANDO Rascon 01/17/2024, 3:00 PM * Lamar Early CPhT - 01/17/2024 2:58 PM EDT Contacts Type Contact Phone/Fax 01/17/2024 02:55 PM EDT Phone (Outgoing) Stephen Varela (Self) [phone] (M) Left Message Subjective Advised patient to contact Anticoagulation Clinic if any unusual bruising or bleeding, recent illness, changes in medication, or questions/concerns. PT/INR results, Coumadin dose instructions, and next PT/INR date communicated as noted by Pharmacist: Yes LAMAR EARLY CPhT 01/17/2024, 2:58 PM * Carla Heaton [facility] - 01/17/2024 2:41 PM EDT Images from the original note were not included. Coumadin Clinic (region specific) Objective Current Warfarin Dose As of 01/17/2024 Warfarin maintenance plan: 5 mg (1 mg x 5) every Fri; 7.5 mg (1 mg x 7.5) all other days INR Result As of 01/17/2024 INR goal: 2.0-3.0 INR used for dosin.6 (01/17/2024) Assessment & Plan Warfarin Plan As of 01/17/2024 Full warfarin instructions: 01/16: Hold; Otherwise 5 mg every Fri; 7.5 mg all other days Next INR check: 01/29/2024 Repeat PT/INR in 1.5 week(s) Weekly dose: not changed Additional Dosing Information: Description Call patient while at [facility] AND fax Facility at [phone] pt started multivitamin around beginning october Tech to contact patient with dose instructions as noted. Carla Heaton RPh 01/17/2024, 2:42 PM documented in this encounter Plan of Treatment Upcoming Encounters Date Type Department Care Team (Late st Contact Info) Description 01/18/2024 1:30 PM EDT Office Visit Radiation Oncology, [facility] [address] [place] [address] Shelly Rashid MD [address] [place] [address] 01/24/2024 9:00 AM EDT Office Visit Otolaryngology/Head & Neck/Facial Plastic Surgery [address] [place] [address] Monik Edge CRNP [address] [place] [address] 02/13/2024 9:20 AM EDT Office Visit [place] [address] [place] [address] Jad Boone MD [address] [facility] [address] [place] [address] 02/16/2024 10:45 AM EDT Office Visit Otolaryngology/Head & Neck/Facial Plastic Surgery [address] [place] [address] Gurvinder Garcia MD [address] [place] [address] 06/06/2024 9:30 AM EDT Office Visit Cardiology, [place] [address] [place] [address] Yas Mckinnon CRNP [address] [place] [address] Health Maintenance Due Date Last Done Comments Albumin/Creatinine Ratio 1963 Hepatitis C Screening 1963 Zoster Vaccines (2 of 3) 06/26/2014 05/01/2014 *SPIROMETRY ONCE FOR ASTHMA-ADULT 07/14/2022 *NEPHROLOGY REFERRAL DUE TO RESISTANT HTN 09/25/2023 COVID-19 Vaccine ( season) 2023 06/01/2023, 06/09/2022, 12/31/2021, Additional history exists Depression Screening 09/18/2024 09/18/2023 GFR 12/21/2024 12/22/2023, 0401/2024, 11/17/2023, Additional history exists DTaP,Tdap,and Td Vaccines [...] this encounter Medical Devices Implanted Type Area Compliance Monitor Device Identifier Shelf Expiration Date Model / Serial / Lot Connector Nerve 2mm 15mm - [id number] Implanted:Qty: 1 on 04/27/2023 by Dudley Hinojosa [place] [facility] [place]: Face [employer] [id number] 12/24/2024 [id number] / / [id number] Alloderm 4x7 Thin 0.8-1.2 (28 Units) - [id number] - [id number] Implanted:Qty: 28 on 04/27/2023 by Dudley Hinojosa MD [place] [facility] [place]: Face ABBVIE 12/18/2024 [id number] / [id number] / [id number] Sheeting Monisha 2x3in X.020in - [id number] Implanted:Qty: 1 on 04/27/2023 by Dudley Hinojosa MD [place] [facility] [place]: Ear [employer] 09/25/2024-700-20 / / [id number] Sheeting Monisha 2x3 In X.005in - [id number] Implanted:Qty: 1 on 12/12/2023 by Gurvinder Garcia MD [place] [facility] [place]: Ear [employer] 04/05/2026 23-700-05 / / [id number] documented as of this encounter Visit Diagnoses Diagnosis PAF (paroxysmal atrial fibrillation) (HCC)- Primary Atrial fibrillation documented in this encounter Advance Directives Documents on File Type Date Recorded Patient Rn Endoscopy Expl anation POLST 04/26/2023 [place] OR [facility] [[email or web address] FOR LIFE-SUSTAINING TREATMENT * Full Code (Latest [...] Agents on File Name Relationship Healthcare Agent [facility] Communication [facility] Adult Child Power of Smoke Chaser Care Teams Online Media Director Relationship Specialty Start Date End Date Jad Boone MD [address] [facility] [place] [address] PCP - General Family Medicine 09/20/23 documented as of this encounter
--- OUTSIDE RECORDS SUMMARY | 2024-04-25 23:53 | External Medical Summary | Summary of Care ---
Author Name Unknown Organization [facility] Address [address] [place] [address] Phone [phone] Care Team Providers Care Steam Drier Operator Name Role Phone Jad Boone MD Primary Care Provider Encounter Details Date Type Department Care Team (Late st Contact Info) Description 01/22/2024 Telephone Otolaryngology/Head & Neck/Facial Plastic Surgery [address] [place], [place] [phone] Monik Edge CRNP [address] [place] [address] Allergies Active Allergy Reactions Criticality Noted Date Comments Bee Venom Hives High 03/14/2017 documented as of this encounter (statuses as of 01/22/2024) Medications Medication Sig Dispensed Refills Start Date End Date Status Omeprazole 20 MG Oral Capsule Delayed Release (PriLOSEC) Take 1 Capsule by mouth in the morning. 90 Capsule 1 11/15/2022 Active Vitamin D3 1.25 MG (93413 UT) Oral Capsule Take 1 Capsule by mouth once a week. 12 Capsule 3 01/30/2023 Active Additional Information Patient taking differently:50,000 Units Oral QWEEK,Every Monday, Reported on 01/18/2024 Atorvastatin Calcium 20 MG Oral Tablet (Lipitor)Indicatio ns:Coronary artery disease involving [place] coronary artery of [place] heart without angina pectoris TAKE 1 TABLET, BY MOUTH, IN THE MORNING. 90 Tablet 1 03/04/2023 Active Acetaminophen 325 MG Oral Tablet (Tylenol) Take 2 Tablets by mouth every 6 hours as needed for Pain, Mild. 30 Tablet 04/03/2023 Active Multivitamin Adult Oral Tablet Take by mouth every evening. Active Furosemide 20 MG Oral Tablet (Lasix)Indications :Chronic diastolic CHF (congestive heart failure) ([facility]) Take 2 Tablets by mouth in the morning. 180 Tablet 1 08/15/2023 Active Metoprolol Succinate ER 25 MG Oral Tablet Extended Release 24 Hour (Toprol XL)Indications:Chr onic diastolic CHF (congestive heart failure) ([facility]) Take 1 Tablet by mouth in [...] with preserved ejection fraction (HFpEF) ([facility]) Take 1 Tablet by mouth in [...] Oral Tablet (Coumadin)Indicati ons:PAF (paroxysmal atrial fibrillation) ([facility]) Take 1 Tablet by mouth every evening. 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 0 05/01/2014 Overview: ICD-10 update of inactive term Heart failure, systolic, due to CAD 08/28/2012 Overview: ECHO 2011 - Segmental wall abnormality, severe hypokinesis of anterior septum, anterior wall, apex, distal inferior septum, distal inferior wall, and distal posterior wall EF 33% Mass of left parotid gland documented as of this encounter (statuses as of 01/22/2024) Resolved Problems Problem Noted Date Diagnosed Date [...] as of this encounter (statuses as of 01/22/2024) Immunizations Name Administration Dates Next Due COVID-19 [...] Telephone Encounter - Ashlee [place] OSA - 01/22/2024 3:20 PM EDT Spoke with Stephen, he accpeted appointment 10am 01/23 with Rochelle Rodriguez * Telephone Encounter - Ashlee [place] OSA - 01/22/2024 2:25 PM EDT LVM for patient- appointment for 01/24/24 needs to be rescheduled due to provider schedule change Patient would not have to follow up if not needed could f/u with Dr. Garcia on 02/16/24 or we could see him 01/23 at 10a documented in this encounter Plan of Treatment Upcoming Encounters Date Type Department Care Team (Late st Contact Info) Description 01/24/2024 9:00 AM EDT Office Visit Otolaryngology/Head & Neck/Facial Plastic Surgery [address] [facility] [place] [phone] Monik Edge CRNP [address] [place] [address] 01/29/2024 5:45 PM EDT Anticoagulation Pharmacy Call Center [address] [facility] [place] [address] [facility], [facility] [address] [facility] [place] [address] 02/13/2024 9:20 AM EDT Office Visit [place] [address] [place] [address] Jad Boone MD [facility] [address] [place] [address] 02/16/2024 10:45 AM EDT Office Visit Otolaryngology/Head & Neck/Facial Plastic Surgery [address] [place] [address] Gurvinder Garcia MD [address] [place] [address] 06/06/2024 9:30 AM EDT Office Visit Cardiology, [place] [address] [place] [address] Yas Mckinnon CRNP [address] [place] [address] 07/23/2024 9:30 AM EST Office Visit Radiation Oncology, [facility] [address] [place] [address] Eros Faust MD [address] [place] [address] Health Maintenance Due Date Last Done Comments Albumin/Creatinine Ratio 1963 Hepatitis C Screening 1963 Zoster Vaccines (2 of 3) 06/26/2014 05/01/2014 *SPIROMETRY ONCE FOR ASTHMA-ADULT 07/14/2022 *NEPHROLOGY REFERRAL DUE TO RESISTANT HTN 09/25/2023 COVID-19 Vaccine ( season) 2023 06/01/2023, 06/09/2022, 12/31/2021, Additional history exists Depression Screening 09/18/2024 09/18/2023 GFR 12/21/2024 12/22/2023, 04/01/2024, 11/17/2023, Additional history exists DTaP,Tdap,and Td Vaccines [...] this encounter Medical Devices Implanted Type Area Vice President Of Software Development Device Identifier Shelf Expiration Date Model / Serial / Lot Connector Nerve 2mm 15mm - [id number] Implanted:Qty: 1 on 04/27/2023 by Dudley Hinojosa MD at [place] [facility] [place] Left: Face [employer] [id number] 12/24/2024 [id number] / / [id number] Alloderm 4x7 Thin 0.8-1.2 (28 Units) - [id number] - [id number] Implanted:Qty: 28 on 04/27/2023 by Dudley Hinojosa MD at OR [facility] [place] Left: Face ABBVIE 12/18/2024 [id number] / [id number] / [id number] Sheeting Monisha 2x3in X.020in - [id number] Implanted:Qty: 1 on 04/27/2023 by Dudley Hinojosa MD at OR [facility] [place] Left: Ear [employer] 09/25/2024 23-700-20 / / [id number] Sheeting Monisha 2x3 In X.005in - [id number] Implanted:Qty: 1 on 12/12/2023 by Gurvinder Garcia MD at OR [facility] [place] Left: Ear [employer] 04/05/2026 23-700-05 [id number] documented as of this encounter Advance Directives Documents on File Type Date Recorded 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
--- OUTSIDE RECORDS SUMMARY | 2024-04-25 23:53 | External Medical Summary ---
Author Name Unknown Address Unknown Organization [id number]:[facility] [place] - [address] [facility] [address] Laboratory Report Ordering Provider Test Date Status JYOTSNA PLASCENCIA 01/24/2024 12:46:09 Final Left ear

Multiple o ther species of aerobic and/or anaerobic bacteria.
No further workup routinely performed Observation Date Value Abnormality Reference (Units ) Status Bacteria identified in Specimen by Culture 01/24/2024 12:46:09 [id number]^STAPHY LOCOCCUS AUREUS MRSA Abnormal Final Moderate Staphylococcus keri us MRSA, This patient may require isolation. Bacteria identified in Specimen by Culture 01/24/2024 12:46:09 [id number]^BACTEROIDES FRAGILIS Abnormal Final Moderate Bacteroides fragili s Gram Stain 01/24/2024 12:46:09 No squamous epithelial cells seen Abnormal Final Gram Stain 01/24/2024 12:46:09 Moderate Polymorphonuclear le ukocytes Abnormal Final Gram Stain 01/24/2024 12:46:09 Moderate Gram positive cocci Abnormal Final Performing Location [facility] [place] - [address] [place] [address] [address] Ordering Provider Test Date Status JYOTSNA PLASCENCIA 01/24/2024 12:46:09 Final Observation Date Value Abnormality Reference (Units ) Status Clindamycin 01/24/2024 12:46:09 >=8 Resistant Final Erythromycin susceptibility 01/24/2024 12:46:09 >=8 Resistant Final Oxacillinsusceptibility 01/24/2024 12:46:09 >=4 Resistant Final Oxacillin/Methicillin resist ant Staphylococci are considered clinically resistant to all Beta-lactam (Penicillin and Cephalosporin) antibiotics. Quinolone antibiotics should also not be used for Staphylococci that are Oxacillin resistant. Tetracyclinesusceptibility 01/24/2024 12:46:09 <=1 Yanira ceptible Final TMP-SMZ susceptibility 01/24/2024 12:46:09 <=10 Suscept ible Final Vancomycinsusceptibility 01/24/2024 12:46:09 <=0.5 Susce ptible Final Test: Culture, Wound, Deep, Aerobic and Anaerobic
Specimen Source: Cheek, Left
Specimen Type: Drainage
Specimen Date: 01/24/2024 1246
Result Date: 01/28/2024 1503
Result Status: Final result
Abnormal: Yes
Resulting Lab: [facility]
[address]
[place] [address]

CULTURE

Moderate Staphylococcus aureus MRSA, This patient may require isolation.
(Abnormal)

Moderate Bacteroides fragilis (Abnormal)

Multiple other species of aerobic and/or anaerobic bacteria.No further
workup routinely performed

STAIN

No squamous epithelial cells seen

Moderate Polymorphonuclear leukocytes

Moderate Gram positive cocci

SUSCEPTIBILITY

Staphylococcus
aureus MRSA, This
patient may
require isolation.
METHOD MICROBROTH
DILUTIONS

CLINDAMYCIN >=8 Resistant
ERYTHROMYCIN >=8 Resistant
OXACILLIN >=4 Resistant
[1]
TETRACYCLINE <=1 Susceptible
TRIMETH/SULFAMETHOXAZOLE <=10 Susceptible
VANCOMYCIN <=0.5 Susceptible

[1] Oxacillin/Methicillin resistant Staphylococci are considered clinically
resistant to all Beta-lactam (Penicillin and Cephalosporin) antibiotics.
Quinolone antibiotics should also not be used for Staphylococci that are
Oxacillin resistant.

null Performing Location [facility] [place] - [address] [facility] [address]
--- OUTSIDE RECORDS SUMMARY | 2024-04-25 23:53 | External Medical Summary | Summary of Care ---
Author Name Unknown Organization [facility] Address [address] [place] [address] Phone [phone] Care Team Providers Care Kicking Machine Operator Name Role Phone Jad Boone MD Primary Care Provider Reason for Visit * Reason Comments Dosage Adjustment Via Phone (anticoag Cl inic) Encounter Details Date Type Department Care Team (Latest Contact Info) Description 01/17/2024 5:45 PM EDT Anticoagulation Pharmacy Call Center [phone] [place] [address] [facility] [address] [place] [address] PAF (paroxysmal atrial fibrillation) ([facility])* Allergies Active Allergy Reactions Criticality Noted Date Comments Bee Venom Hives High 03/14/2017 documented as of this encounter (statuses as of 01/17/2024) Medications Medication Sig Dispensed Refills Start Date End Date Status Omeprazole 20 MG Oral Capsule Delayed Release (PriLOSEC) Take 1 Capsule by mouth in the morning. 90 Capsule 1 11/15/2022 Active Vitamin D3 1.25 MG (06666 UT) Oral Capsule Take 1 Capsule by mouth once a week. 12 Capsule 3 01/30/2023 Active Additional Information Patient taking differently:50,000 Units Oral QWEEK,Every Monday, Reported on 05/18/2023 Atorvastatin Calcium 20 MG Oral Tablet (Lipitor)Indicatio ns:Coronary artery disease involving [place] coronary artery of [place] heart without angina pectoris TAKE 1 TABLET, [...] CHF (congestive heart failure) ([facility]) Take 2 Tablets by mouth in the morning. 180 Tablet 1 08/15/2023 Active Metoprolol Succinate ER 25 MG Oral Tablet Extended Release 24 Hour (Toprol XL)Indications:Chr onic diastolic CHF (congestive heart failure) ([facility]) Take 1 Tablet by mouth in [...] preserved ejection fraction (HFpEF) ([facility]) Take 1 Tablet by mouth in [...] (Coumadin)Indicati ons:PAF (paroxysmal atrial fibrillation) ([facility]) Take 1 Tablet by mouth every evening. 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 PT/INR results, Coumadin dose instructions, and next PT/INR date communicated as noted by Pharmacist: Yes LAMAR EARLY CPhT 01/17/2024, 2:58 PM * Carla Heaton [facility] - 01/17/2024 2:41 PM EDT Images from [...] Dosing Information: Description Call patient while at [facility] AND fax Facility at [phone] pt started multivitamin around beginning october Tech to contact patient with dose instructions as noted. Carla Heaton RPh 01/17/2024, 2:42 PM documented in this encounter Plan of Treatment Upcoming Encounters Date Type Department Care Team (Late st Contact Info) Description 01/18/2024 1:30 PM EDT Office Visit Radiation Oncology, [facility] [address] [place] [address] Shelly Rashid MD [address] [place] [address] 01/24/2024 9:00 AM EDT Office Visit Otolaryngology/Head & Neck/Facial Plastic Surgery [address] [place] [address] Monik Edge CRNP [address] [place] [address] 02/13/2024 9:20 AM EDT Office Visit [place] [address] [place] [address] Jad Boone MD [address] [facility] [address] [place] [address] 02/16/2024 10:45 AM EDT Office Visit Otolaryngology/Head & Neck/Facial Plastic Surgery [address] [place] [address] Gurvinder Garcia MD [address] [place] [address] 06/06/2024 9:30 AM EDT Office Visit Cardiology, [place] [address] [place] [address] Yas Mckinnon CRNP [address] [place] [address] Health Maintenance Due Date Last Done Comments [...] this encounter Medical Devices Implanted Type Area Soliciting Freight Agent Device Identifier Shelf Expiration Date Model / Serial / Lot Connector Nerve 2mm 15mm - [id number] Implanted:Qty: 1 on 04/27/2023 by Dudley Hinojosa MD at [facility] [place] [place] Left: Face [employer] [id number] 12/24/2024 [id number] / / [id number] Alloderm 4x7 Thin 0.8-1.2 (28 Units) - [id number] - [id number] Implanted:Qty: 28 on 04/27/2023 by Dudley Hinojosa MD at OR [facility] [place] [place] Left: Face [employer]BB[employer]IE 12/18/2024 [id number] / [id number] / [id number] Sheeting Monisha 2x3in X.020in - [id number] Implanted:Qty: 1 on 04/27/2023 by Dudley Hinojosa MD at OR [facility] [place] [place] Left: Ear [employer] 09/25/2024-700-20 / / [id number] Sheeting Monisha 2x3 In X.005in - [id number] Implanted:Qty: 1 on 12/12/2023 by Gurvinder Garcia MD at OR [facility] [place] [place] Left: Ear [employer] 04/05/2026 23-700-05 / / [id number] documented as of this encounter Visit Diagnoses Diagnosis PAF (paroxysmal atrial fibrillation) (HCC)- Primary Atrial fibrillation documented in this encounter Advance Directives Documents on File Type Date Recorded Patient Wheel 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
--- OUTSIDE RECORDS SUMMARY | 2024-04-25 23:53 | External Medical Summary | Summary of Care ---
Author Name Unknown Organization [facility] Address [address] [place] [address] Phone [phone] Care Team Providers Care Fractionation Supervisor Name Role Phone Jad Boone MD Primary Care Provider Reason for Visit * Reason Comments Follow Up L preauricular/facia l Encounter Details Date Type Department Care Team (Late st Contact Info) Description 01/18/2024 1:30 PM EDT Office Visit Radiation Oncology, [facility] [address] [place] [address] Carson Victoria MD [address] [place] [address] Squamous cell carcinoma of skin*; Squamous cell carcinoma of preauricular region Allergies Active Allergy Reactions Criticality Noted Date Comments Bee Venom Hives High 03/14/2017 documented as of this encounter (statuses as of 01/18/2024) Medications Medication Sig Dispensed Refills Start Date End Date Status Omeprazole 20 MG Oral Capsule Delayed Release (PriLOSEC) Take 1 Capsule by mouth in the morning. 90 Capsule 1 11/15/2022 Active Vitamin D3 1.25 MG (26425 UT) Oral Capsule Take 1 Capsule by mouth once a week. 12 Capsule 3 01/30/2023 Active Additional Information Patient taking differently:50,000 Units Oral QWEEK,Every Monday, Reported on 01/18/2024 Atorvastatin Calcium 20 MG Oral Tablet (Lipitor)Indicatio ns:Coronary artery disease involving [place] coronary artery of [place] heart without angina pectoris TAKE 1 TABLET, BY MOUTH, IN THE MORNING. 90 Tablet 1 03/04/2023 Active Acetaminophen 325 MG Oral Tablet (Tylenol) Take 2 Tablets by mouth every 6 hours as needed for Pain, Mild. 30 Tablet 04/03/2023 Active Multivitamin Adult Oral Tablet Take by mouth every evening. Active Furosemide 20 MG Oral Tablet (Lasix)Indications :Chronic diastolic CHF (congestive heart failure) ([facility]) Take 2 Tablets by mouth in the morning. 180 Tablet 1 08/15/2023 Active Metoprolol Succinate ER 25 MG Oral Tablet Extended Release 24 Hour (Toprol XL)Indications:Chr onic diastolic CHF (congestive heart failure) ([facility]) Take 1 Tablet by mouth [...] heart failure with preserved ejection fraction (HFpEF) ([facility]) Take 1 Tablet by mouth [...] all other days and as directed by [facility] 135 Tablet [...] as of this encounter (statuses as of 01/18/2024) Active Problems Problem Noted Date Diagnosed Date [...] fibrillation) 10/18/2018 Coronary artery disease invo lving [place] coronary artery without angina pectoris 01/07/2015 custodial current use of anticoagulant therapy 0 05/01/2014 Overview: ICD-10 update of inactive term Heart failure, systolic, due to CAD 08/28/2012 Overview: ECHO 2011 - Segmental wall abnormality, severe hypokinesis of anterior septum, anterior wall, apex, distal inferior septum, distal inferior wall, and distal posterior wall EF 33% Mass of left parotid gland documented as of this encounter (statuses as of 01/18/2024) Resolved Problems Problem Noted Date Diagnosed Date [...] as of this encounter (statuses as of 01/18/2024) Immunizations Name Administration Dates Next Due COVID-19 [...] Sign Reading Time Taken Comments Blood Pressure 162/77 01/18/2024 1:47 PM EDT Pulse 56 01/18/2024 1:47 PM EDT Temperature 36.4 C (97.5 F) 01/18/2024 1 :47 PM EDT Respiratory Rate 18 01/18/2024 1:47 PM EDT Oxygen Saturation 99% 01/18/2024 1:4 7 PM EDT room air, at rest Inhaled Oxygen Concentration - - Weight - [...] as of this encounter Progress Notes * Carson Victoria MD - 01/18/2024 4:42 PM EDT RADIATION ONCOLOGY FOLLOW-UP NOTE [facility] Stephen Varela [id number] 78 year old Stephen Varela was seen in follow-up in Radiation Oncology at [facility] on 01/18/2024. REFERRING PHYSICIAN: Dr. Greg Monroy SITE OF MALIGNANCY: Left preauricular/facial HISTOPATHOLOGY: Cutaneous SCC STAGE: Cancer Staging No matching staging information was found for the patient. Stage III, pT3, pN0, M0 (tumor diameter 5.0 cm, +ve perineural invastion). CURRENT THERAPY: S/p WLE of left facial mass including left parotidectomy, left level 1-4 neck dissection and submental artery island reconstruction on 04/27/2023 Postop adjuvant radiation therapy pending. Now completed today 07/24/2023, see radiation summary below for details. PRIOR THERAPY: Nil DIAGNOSTIC HISTORY: 03/29/2023 CT neck with contrast: IMPRESSION Large fungating left preauricular mass concerning for cutaneous malignancy. Recommend tissue sampling. Encasement of right superficial temporal artery. Loss of fat plane between the mass and the tragus cartilage. No evidence of metastatic disease in the neck. 03/26/2023 CT abdomen/pelvis with IV contrast without oral contrast: CT pulmonary embolus with contrast: IMPRESSION: 1. On sagittal images 110-128, series 21 / coronal images 105-114, series 23, non-displaced hairline fracture of the T10 vertebral body. No encroachment on the adjacent thoracic spinal canal. 2. No acute intra-abdominal or pelvic findings. 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 Patient was [facility] ER in early March with cervical spine fracture after a fall injury. Duringthis time it was noted that he had a parotid mass and subsequently he underwent workup for this. Patient reports that this started as a small pimple in the left facial/preauricular skin area that he points to. He states that it grew fairly rapidly over this next several weeks until was several cm when he underwent excision. He would a biopsy of this area on 04/03/23 and pathology revealed invasive squamous cell carcinoma. Head and neck tumor Board recommended wide local excision, local or regional flap reconstruction, left parotidectomy and neck dissection. He underwent definitive surgery on 04/27/2023 consisting ofWLE of left facial mass including left parotidectomy, left level 1-4 neck dissection and submental artery island reconstruction Pathology: Final Diagnosis A. Left facial mass, radical excision: Invasive [...] Three lymph nodes, negative for carcinoma; (0/3). at 1307 Final Diagnosis Comment Microscopic evaluation shows invasive well-differentiated squamous cell carcinoma, measuring 5.0 cmin lateral extent and 2.5 cm in depth. Perineural invasion is present. The surgical resection margins are negative for carcinoma and dysplasia. The closest surgical resection margin is the posterior and deep margin, present 0.4 cm from tumor. Synoptic Report CUTANEOUS SQUAMOUS CELL CARCINOMA OF THE HEAD AND NECK 8th Edition - Protocol posted: 05/11/2022UTANEOUS SQUAMOUS CELL CARCINOMA OF THE HEAD AND NECK - All Specimens SPECIMEN Procedure Excision, wide TUMOR Tumor Focality Unifocal Multiple Primary Sites Not applicable Tumor Site Left facial skin and right anterior ear Tumor Laterality Left Tumor Size Greatest dimension (Centimeters): 5.0 cm Additional Dimensions (Centimeters) 3.6 cm 2.5 cm Histologic Type Squamous cell carcinoma, not otherwise specified Histologic Grade G1 Tumor Depth of Invasion (DOI) Depth in Millimeters: 25 mm Lymphovascular Invasion Not identified Perineural Invasion Present Greater than or equal to 0.1 mm in caliber MARGINS Margin Status for Invasive Tumor All margins negative for invasive tumor Distance from Invasive Tumor to Closest Margin 4 mm Closest Margin(s) to Invasive Tumor posterior and deep margin Margin Status for Noninvasive Tumor All margins negative for in situ disease REGIONAL LYMPH NODES Regional Lymph Node Status All regional lymph nodes negative for tumor Number of Lymph Nodes Examined 18 PATHOLOGIC STAGE CLASSIFICATION (pTNM, AJCC 8th Edition) Reporting of pT, pN, and (when applicable) pM categories is based on information available to the pathologist at the time the report is issued. As per the AJCC (Chapter 1, 8th Ed.) it is the managingphysician's responsibility to establish the final pathologic stage based upon all pertinent information, including but potentially not limited to this pathology report. pT Category pT3 pN Category pN0 [facility] ([facility]) Tumor Classification System High-risk Factors Tumor diameter greater than or equal to 2 cm Perineural invasion greater than or equal to 0.1 mm in caliber [facility] Tumor Classification T2b . (As per nursing Patient today reports there is an opening in surgical field again. 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 INTERVAL HISTORY: Patient is approximately 6 months post completion of radiation therapy on an adjuvant basis. He returns for follow-up today. He is doing okay denies any pain no discomfort good appetite Medications were reviewed and updated. ZUBROD PERFORMANCE SCALE: 2 ambulatory and capable of all self-care but unable to carry out any work activities, up and aboutmore than 50% of waking hours PHYSICAL EXAMINATION: Blood Pressure 162/77 (BP Site: Left Arm, BP Position: Sitting, BP Cuff Size: Regular) | Pulse 56 |Temperature 36.4 C (97.5 F) (Infrared ) | Respiration 18 | Oxygen Saturation 99% Comment: room air, at rest Wt Readings from Last 4 Encounters: 12/16/23 91.2 kg (201 lb 1.6 oz) 11/10/23 113.9 kg (251 lb) 10/04/23 110.7 kg (244 lb) 09/29/23 111 kg (244 lb 11.2 oz) On examination of the left heel he has had partial surgical resection of the year and reconstruction of the external auditory canal the partial reconstructed superior border is healing it has not completely healed there are some scabs and blood but no evidence of recurrent residual disease. No lymphadenopathy ipsilaterally on the left side. Or contralaterally on the right side. RECENT LABS: Results for orders placed or performed in visit on 12/22/23 CBC Result Value Ref Range WBC 6.41 4.00 - 10.80 K/uL RBC 3.74 4.50 - 5.25 M/uL HGB 10.3 (L) 14.0 - 16.8 g/dL HCT 33.9 (L) 40.0 - 48.4 % MCV 90.6 82.0 - 99.5 fL MCH 27.5 27.0 - 34.0 pg MCHC 30.4 32.0 - 36.0 g/dL RDW 17.9 11.5 - 15.5 % PLT 165 140 - 400 K/uL MPV 9.5 6.6 - 11.1 fL nRBCs 0 <=0 /100 WBCs Results for orders placed or performed in visit on 12/22/23 DIFFERENTIAL, AUTOMATED Result Value Ref Range WBC 6.41 4.00 - 10.80 K/uL Neutrophils % 68.4 40.0 - 75.0 % Lymphocytes % 10.9 (L) 18.0 - 42.0 % Monocytes % 10.6 1.0 - 11.0 % Eosinophils % 9.2 (H) 0.0 - 6.0 % Basophils % 0.6 0.0 - 2.0 % Immature Granulocytes % 0.3 0.0 - 2.0 % Absolute Neutrophils 4.38 1.80 - 7.70 K/uL Absolute Lymphocytes 0.70 (L) 1.00 - 4.80 K/ul Absolute Monocytes 0.68 0.00 - 1.10 K/uL Absolute Eosinophils 0.59 0.00 - 0.70 K/uL Absolute Basophils 0.04 0.00 - 0.20 K/uL Absolute Immature Granulocytes 0.02 0.00 - 0.20 K/uL CBC Result Value Ref Range WBC 6.41 4.00 - 10.80 K/uL RBC 3.74 4.50 - 5.25 M/uL HGB 10.3 (L) 14.0 - 16.8 g/dL HCT 33.9 (L) 40.0 - 48.4 % MCV 90.6 82.0 - 99.5 fL MCH 27.5 27.0 - 34.0 pg MCHC 30.4 32.0 - 36.0 g/dL RDW 17.9 11.5 - 15.5 % PLT 165 140 - 400 K/uL MPV 9.5 6.6 - 11.1 fL nRBCs 0 <=0 /100 WBCs Results for orders placed or performed during the hospital encounter of 09/11/20 CBC WITH WBC DIFFERENTIAL Result Value Ref Range WBC 8.24 4.00 - 10.80 K/uL RBC 4.69 4.50 - 5.25 M/uL HGB 14.4 14.0 - 16.8 g/dL HCT 43.5 40.0 - 48.4 % MCV 92.8 82.0 - 99.5 fL MCH 30.7 27.0 - 34.0 pg MCHC 33.1 32.0 - 36.0 g/dL RDW 15.6 (H) 11.5 - 15.5 % PLT 216 140 - 400 K/uL MPV 9.5 6.6 - 11.1 fL NRBC'S 0 0 /100 WBCs Neutrophils % 80.9 (H) 40 - 75 % Lymphocytes % 10.3 (L) 18 - 42 % Monocytes % 7.2 1 - 11 % Eosinophils % 1.0 0 - 6 % Basophils % 0.4 0 - 2 % IMMATURE GRANULOCYTE 0.2 0 - 2 % Absolute Neutrophils 6.67 1.8 - 7.7 K/uL Absolute Lymphocytes 0.85 (L) 1.0 - 4.8 K/uL Absolute Monocytes 0.59 0.0 - 1.1 K/uL Absolute Eosinophils 0.08 0.0 - 0.7 K/uL Absolute Basophils 0.03 0.0 - 0.2 K/uL Absolute Immature Granulocytes 0.02 0.0 - 0.2 K/uL Results for orders placed or performed during the hospital encounter of 03/27/23 COMPREHENSIVE METABOLIC PANEL Result Value Ref Range BUN 21 (H) 6 - 20 mg/dL Creatinine 1.2 0.6 - 1.2 mg/dL Estimated Glomerular Filtration Rate 65 >=60 mL/min Sodium 144 135 - 146 mmol/L Potassium 4.3 3.5 - 5.1 mmol/L Chloride 107 98 - 107 mmol/L CO2 25 22 - 32 mmol/L Anion Gap 12 7 - 15 mmol/L Glucose 106 70 - 120 mg/dL Albumin 3.5 (L) 3.8 - 5.0 g/dL AST 16 10 - 50 U/L Alkaline Phosphatase 87 35 - 130 U/L Bilirubin, Total 0.8 <=1.2 mg/dL Calcium 9.3 8.4 - 10.2 mg/dL Protein 6.1 6.0 - 8.3 g/dL ALT 16 10 - 50 U/L RECENT RADIOGRAPHIC IMAGING: Head / Neck: Mild scattered mucosal thickening in the paranasal sinuses. Chest: Coronary and aortic arch atherosclerosis. Slightly increased moderate right and small left small pleural effusions with associated compressive atelectasis. Stable scattered lung bulla predominantly in the right greater than left upper lobes. Abdomen/Pelvis: Severe atherosclerosis of the aorta and its branches. Stable 2.2 x 2.9 cm mixed density left adrenal nodule from 04/01/2022, corresponding with a resolving hematoma that has decreasedin size from 09/11/2020. Left renal cyst, unchanged. Musculoskeletal / Other: Interval progression of compression deformities of T9, T10, and T11 since prior thoracic spine CT from 06/12/2023 leading to worsened kyphotic deformity. Severe wedge deformity of T10 with new grade 2 anterolisthesis of T10 on T11. Stable chronic compression deformity of L5. Right proximal femur fixation hardware. IMPRESSION IMPRESSION 1. Mild metabolic activity of the left ear likely secondary to post treatment changes. No PET-CT evidence of metastatic disease. 2. Slightly increased moderate right and small left pleural effusions with associated compressive atelectasis. 3. Interval worsening of compression deformities of T9, T10, and T11 with severe wedge deformity ofT10 resulting in new grade 2 anterolisthesis of T10 on T11. ASSESSMENT: Patient is clinically stable. We would like to see him for follow-up in 6 months. He does follow closely with his other physicians. Thank you for the opportunity of participating in care of this patient. PLAN: The patient will follow-up in Radiation Oncology in 6 months.. Follow-up with other physicians is as already scheduled. The patient will contact us in the meantime with questions or concerns. Thank you for having asked us to take part in this patient's care. I spent 20 Minutes on this patients care on the date of service. Carson Victoria MD 01/18/2024 documented in this encounter Nursing Notes * Latoya Frey, [facility] - 01/18/2024 1:53 PM EDT Chief Complaint Patient presents with Follow Up L preauricular/facial Patient presents alone in exam room for 4 month return today. He completed 25 fractions to the leftpreauricular/facial area on 07/24/23. Patient denies any pain currently. He was seen by Dr. Garcia and Dr. Hinojosa on 09.29.23 and plan at that time was for a PET in October andto schedule surgery after. He had a CT temporal bones on 11/02/23 which revealed the following: " 1. Exposed bone along the lateral aspect of the left mastoid air cells. New 2. New complete opacification of the left mastoid air cells and near complete opacification of the left middle ear. 3. There is suggestion of a few new small areas of dehiscence/erosions in the left tegmen mastoideum and tegmen tympani as detailed above. Focal dehiscence in the superolateral mastoid segment of theleft temporal bone at its junction with the squamosal temporal bone as detailed above. 4. The findings are in impressions 2 and 3 nonspecific and may represent postradiation changes, otomastoiditis, incidental fluid in the middle ear and mastoid, infection or a combination. Correlate clinically and also consider short-term follow-up with cross-sectional imaging. 5. Postsurgical changes of flap placement in the left pre-auricular region. 6. Normal right temporal bone." PET completed on 11/08/23 demonstrated: "1. Mild metabolic activity of the left ear likely secondaryto post treatment changes. No PET-CT evidence of metastatic disease. 2. Slightly increased moderate right and small left pleural effusions with associated compressive atelectasis. 3. Interval worsening of compression deformities of T9, T10, and T11 with severe wedge deformity ofT10 resulting in new grade 2 anterolisthesis of T10 on T11." Patient underwent reconstruction of external auditory canal with Dr. Hinojosa on 12/12/23 and continues to follow with him post op. Dr. Victoria was in to see patient. documented in this encounter Miscellaneous Notes * Addendum Note - Carson Victoria MD - 01/18/2024 4:56 PM EDTAddended by: CARSON VICTORIA on: 01/18/2024 04:56 PM Modules accepted: Level of Service documented in this encounter Plan of Treatment Upcoming Encounters Date Type Department Care Team (Late st Contact Info) Description 01/24/2024 9:00 AM EDT Office Visit Otolaryngology/Head & Neck/Facial Plastic Surgery [address] [place] [address] Monik Edge CRNP [address] [place] [address] 01/29/2024 5:45 PM EDT Anticoagulation Pharmacy Call Center [address] [facility] [place] [address] [facility], [facility] [address] [facility] [place] [address] 02/13/2024 9:20 AM EDT Office Visit [facility] [address] [place] [address] Jad Boone MD [facility] [address] [place] [address] 02/16/2024 10:45 AM EDT Office Visit Otolaryngology/Head & Neck/Facial Plastic Surgery [address] [place] [address] Gurvinder Garcia MD [address] [place] [address] 06/06/2024 9:30 AM EDT Office Visit Cardiology, [place] [address] [place] [address] Yas Mckinnon CRNP [address] [place] [address] 07/23/2024 9:30 AM EST Office Visit Radiation Oncology, [facility] [address] [place] [address] Eros Faust MD [address] [place] [address] Health Maintenance Due Date Last Done Comments [...] this encounter Medical Devices Implanted Type Area Instrumentation Tech Device Identifier Shelf Expiration Date Model / Serial / Lot Connector Nerve 2mm 15mm - [id number] Implanted:Qty: 1 on 04/27/2023 by Dudley Hinojosa MD at OR [facility] Left: Face [employer] [id number] 12/24/2024 [id number] / / [id number] Alloderm 4x7 Thin 0.8-1.2 (28 Units) - [id number] - [id number] Implanted:Qty: 28 on 04/27/2023 by Dudley Hinojosa MD at OR [facility] Left: Face ABBVIE 12/18/2024 [id number] / [id number] / [id number] Sheeting Monisha 2x3in X.020in - [id number] Implanted:Qty: 1 on 04/27/2023 by Dudley Hinojosa MD at OR [facility] Left: Ear [employer] 09/25/2024 23-700-20 / / [id number] Sheeting Monisha 2x3 In X.005in - [id number] Implanted:Qty: 1 on 12/12/2023 by Gurvinder Garcia MD at OR [facility] Left: Ear [employer] 04/05/2026 23-700-05 / [id number] documented as of this encounter Visit Diagnoses Diagnosis Squamous cell carcinoma of skin- Primary Squamous cell carcinoma of skin, site unspecified Squamous cell carcinoma of preauricular region Squamous cell carcinoma of skin, site unspecified documented in this encounter Advance Directives Documents on File Type Date Recorded Patient Parimutuel Clerk Expl anation POLST 04/26/2023 [place] [facility] FOR [facility]-SUSTAINING TREATMENT * Full [...] Agents on File Name Relationship Healthcare Agent [facility] p Communication Brody Avery Adult Child Power of Rope 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
--- OUTSIDE RECORDS SUMMARY | 2024-04-25 23:53 | External Medical Summary | Summary of Care ---
Author Name Unknown Organization [facility] Address [address] [place] [address] Phone [phone] Care Team Providers Care Black Mill Operator Name Role Phone Jad Boone MD Primary Care Provider Reason for Referral * Evaluate & Treat - Unlimited Visits (Within 10 days (routine)) - Authorized Specialty Diagnoses / Procedures Referred By Maximino madrid Referred To Contact Occupational Medicine / Occupational Therapy Diagnoses Generalized weakness Jad Boone MD [address] [facility] [address] [place] [phone] Referral ID Status Reason Start Date Expiration Date Visits Requested Visits Authorized [id number] Authorized Specialty Services Required 01/12/[phone] Question Answer Referral Priority Within 10 days (routine) Where should this appointment be scheduled? External Reason for Visit * Reason Onset Date Comments Advice 01/10/2024 Encounter Details Date Type Department Care Team (Late st Contact Info) Description 01/10/2024 Telephone [facility], [place] [address] [place] [address] [phone] Jad Boone MD [facility]0 [facility] [address] [place] [address] [id number] Advice Allergies Active Allergy Reactions Criticality Noted Date Comments Bee Venom Hives High 03/14/2017 documented as of this encounter (statuses as of 01/12/2024) Medications Medication Sig Dispensed Refills Start Date End Date Status Omeprazole 20 MG Oral Capsule Delayed Release (PriLOSEC) Take 1 Capsule by mouth in the morning. 90 Capsule 1 11/15/2022 Active Vitamin D3 1.25 MG (15651 UT) Oral Capsule Take 1 Capsule by mouth once a week. 12 Capsule 3 01/30/2023 Active Additional Information Patient taking differently:50,000 Units Oral QWEEK,Every Monday, Reported on 05/18/2023 Atorvastatin Calcium 20 MG Oral Tablet (Lipitor)Indicatio ns:Coronary artery disease involving sioux coronary artery of sioux heart without angina pectoris TAKE 1 TABLET, [...] days and as directed by [facility] Pharmacy 135 Tablet 1 01/02/2024 Active Cephalexin 500 MG Oral Capsule Take 1 Capsule by mouth in the morning and 1 Capsule before bedtime. 14 Capsule 01/02/2024 Active amLODIPine Besylate 2.5 MG Oral Tablet (Norvasc) Take 1 Tablet by mouth in the morning. 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 0 05/01/2014 Overview: ICD-10 update of inactive term Heart failure, systolic, due to CAD 08/28/2012 Overview: ECHO 2011 - Segmental wall abnormality, severe hypokinesis of anterior septum, anterior wall, apex, distal inferior septum, distal inferior wall, and distal posterior wall EF 33% Mass of left parotid gland documented as of this encounter (statuses as of 01/12/2024) Resolved Problems Problem Noted Date Diagnosed Date [...] as of this encounter (statuses as of 01/12/2024) Immunizations Name Administration Dates Next Due COVID-19 mRNA, LNP-s, No Pre serve, 2-Dose Series (Caterna) 11/26/2020,11/05/2020 Pneumococcal Conjugate Vacc, 13 Valent (Prevnar) [...] encounter Miscellaneous Notes * Telephone Encounter - Malinda Palma OSA - 01/12/2024 10:06 AM EDT Faxed over to the [facility]. * Telephone Encounter - Jemma Reyes LPN - 01/10/2024 1:49 PM EDT Aimee from [facility] calling Physical therapy is work with pt due to weakness, PT is requesting an order for OT be placed so they can work with pt also with pt. OT will work on w/c transfers. Referral pending if agreeable documented in this encounter Plan of Treatment Upcoming Encounters Date Type Department Care Team (Late st Contact Info) Description 01/17/2024 5:45 PM EDT Anticoagulation Pharmacy Call Center WB [address] [facility] [place] [address] [facility] [address] [place] [address] 01/18/2024 1:30 PM EDT Office Visit Radiation Oncology, [facility] [address] [place] [address] Shelly Rashid MD [address] [place] [address] 01/24/2024 9:00 AM EDT Office Visit Otolaryngology/Head & Neck/Facial Plastic Surgery [address] [place] [address] Monik Edge CRNP [address] [place] [address] 02/13/2024 9:20 AM EDT Office Visit [place] [phone] [place] [address] Jad Boone MD [facility]2 [facility] [address] [place] [address] 02/16/2024 10:45 AM EDT Office Visit Otolaryngology/Head & Neck/Facial Plastic Surgery [address] [place] [address] Gurvinder Garcia MD [address] [place] [address] 06/06/2024 9:30 AM EDT Office Visit Cardiology, [place] [address] [place] [address] Yas Mckinnon CRNP [address] [place] [address] Scheduled Referrals Name Type Priority Associated Diagnoses Order Schedule OCCUPATIONAL THERAPY REFERRAL OP Referral Within 10 days (routine) Generalized weakness Ordered: 01/12/2024 Health Maintenance Due Date Last Done Comments [...] this encounter Medical Devices Implanted Type Area Crystal Slicer Device Identifier Shelf Expiration Date Model / Serial / Lot Connector Nerve 2mm 15mm - [id number] Implanted:Qty: 1 on 04/27/2023 by Dudley Hinojosa MD at OR [facility] Left: Face [employer] [id number] 12/24/2024 [id number] / / [id number] Alloderm 4x7 Thin 0.8-1.2 (28 Units) - [id number] - [id number] Implanted:Qty: 28 on 04/27/2023 by Dudley Hinojosa MD at OR [facility] Left: Face ABBVIE 12/18/2024 [id number] / [id number] / [id number] Sheeting Monisha 2x3in X.020in - [id number] Implanted:Qty: 1 on 04/27/2023 by Dudley Hinojosa MD at OR [facility] Left: Ear ALLIED [employer] 09/25/2024- / [id number] Sheeting Monisha 2x3 In X.005in - [id number] Implanted:Qty: 1 on 12/12/2023 by Gurvinder Garcia MD at OR [facility] Left: Ear [employer]IED [employer] 04/05/2026 / [id number] documented as of this encounter Visit Diagnoses Diagnosis Generalized weakness- Primary Other malaise and fatigue documented in this encounter Advance Directives Documents on File Type Date Recorded 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
--- OUTSIDE RECORDS SUMMARY | 2024-04-25 23:53 | External Medical Summary | Summary of Care ---
Author Name Unknown Organization [facility] Address [address] [place] [address] Phone [phone] Care Team Providers Care Talent Development Analyst Name Role Phone Jad Boone MD Primary Care Provider Reason for Visit * Reason Comments Follow Up L preauricular/facia l Encounter Details Date Type Department Care Team (Late st Contact Info) Description 01/18/2024 1:30 PM EDT Office Visit Radiation Oncology, [facility] [address] [place] [address] Carson Victoria MD [address] [place] [address] Squamous cell carcinoma of skin*; Squamous cell [...] 1 11/15/2022 Active Vitamin D3 1.25 MG (79989 UT) Oral Capsule Take 1 Capsule by mouth once a week. 12 Capsule 3 01/30/2023 Active Additional Information Patient taking differently:50,000 Units Oral QWEEK,Every Monday, Reported on 01/18/2024 Atorvastatin Calcium 20 MG Oral Tablet (Lipitor)Indicatio ns:Coronary artery disease involving iroquois coronary artery of iroquois heart without angina pectoris TAKE 1 TABLET, BY MOUTH, IN THE MORNING. 90 Tablet 1 03/04/2023 Active Acetaminophen 325 MG Oral Tablet (Tylenol) Take 2 Tablets by mouth every 6 hours as needed for Pain, Mild. 30 Tablet 04/03/2023 Active Multivitamin Adult Oral Tablet Take by mouth every evening. Active Furosemide 20 MG Oral Tablet (Lasix)Indications :Chronic diastolic CHF (congestive heart failure) ([facility] Take 2 Tablets by mouth in the morning. 180 Tablet 1 08/15/2023 Active Metoprolol Succinate ER 25 MG Oral Tablet Extended Release 24 Hour (Toprol XL)Indications:Chr onic diastolic CHF (congestive heart failure) ([facility]) Take 1 Tablet by [...] failure with preserved ejection fraction (HFpEF) ([facility]) Take 1 Tablet by [...] all other days and as directed by [facility] Pharmacy 135 Tablet 1 01/02/2024 Active Cephalexin [...] fibrillation) 10/18/2018 Coronary artery disease invo lving iroquois coronary artery without angina pectoris 01/07/2015 USP [...] 4:42 PM EDT RADIATION ONCOLOGY FOLLOW-UP NOTE [facility] Stephen Varela [id number] 78 year old Stephen Varela was seen in follow-up in Radiation Oncology at [facility] on 01/18/2024. REFERRING PHYSICIAN: Dr. Greg Monroy [...] Radiation Oncology consultation. Patient was seen in [facility] ER in early March with cervical spine [...] pT3 pN Category pN0 [facility] ([facility]) Tumor Classification System High-risk Factors Tumor diameter greater than or equal to 2 cm Perineural invasion greater than or equal to 0.1 mm in caliber [facility] Tumor Classification T2b . (As per nursing Patient today reports there is an opening in surgical field again. Patient and field aide are requesting photos be sent via [place] Text to Jarred Perez, a resident with ENT at [facility]). INTERVAL HISTORY: Patient is approximately 6 months [...] this encounter Nursing Notes * Latoya Frey, [facility] - 01/18/2024 1:53 PM EDT Chief Complaint [...] Otolaryngology/Head & Neck/Facial Plastic Surgery [address] [place] [address] Monik Edge CRNP [address] [place] [address] 01/29/2024 5:45 PM EDT Anticoagulation Pharmacy Call Center WB [address] [facility] [place] [place] [address] [facility], [facility] [address] [facility] [place] [address] 02/13/2024 9:20 AM EDT Office Visit [facility] [address] [place] [address] Jad Boone MD [facility] [address] [place] [address] 02/16/2024 10:45 AM EDT Office Visit Otolaryngology/Head & Neck/Facial Plastic Surgery [address] [place] [address] Gurvinder Garcia MD [address] [place] [address] 06/06/2024 9:30 AM EDT Office Visit Cardiology, [place] [address] [place] [address] Yas Mckinnon CRNP [address] [place] [address] 07/23/2024 9:30 AM EST Office Visit Radiation Oncology, [facility] [address] [place] [address] Eros Faust MD [address] [place] [address] Health Maintenance Due Date Last Done Comments [...] this encounter Medical Devices Implanted Type Area Slag Dumper Device Identifier Shelf Expiration Date Model / Serial / Lot Connector Nerve 2mm 15mm - [id number] Implanted:Qty: 1 on 04/27/2023 by Dudley Hinojosa MD at OR [facility] Left: Face [employer] [id number] 12/24/2024 [id number] / / [id number] Alloderm 4x7 Thin 0.8-1.2 (28 Units) - [id number] - [id number] Implanted:Qty: 28 on 04/27/2023 by Dudley Hinojosa MD at OR [facility] Left: Face ABBVIE 12/18/2024 [id number] / [id number] / [id number] Sheeting Monisha 2x3in X.020in - [id number] Implanted:Qty: 1 on 04/27/2023 by Dudley Hinojosa MD at OR [facility] Left: Ear [employer]IED [employer] 09/25/2024 23-700-20 / / [id number] Sheeting Monisha 2x3 In X.005in - [id number] Implanted:Qty: 1 on 12/12/2023 by Gurvinder Garcia MD at OR 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
--- OUTSIDE RECORDS SUMMARY | 2024-04-25 23:53 | External Medical Summary | Summary of Care ---
Author Name Unknown Organization [facility] Address [address] [place] [address] Phone [phone] Care Team Providers Care Recruiter Coordinator Name Role Phone Jad Boone MD Primary Care Provider Encounter Details Date Type Department Care Team (Late st Contact Info) Description 01/09/2024 Documentation Otolaryngology/Head & Neck/Facial Plastic Surgery [address] [place], [place] [phone] Dudley Hinojosa MD [address] [place] [address] Allergies Active Allergy Reactions Criticality Noted Date Comments Bee Venom Hives High 03/14/2017 documented as of this encounter (statuses as of 01/09/2024) Medications Medication Sig Dispensed Refills Start Date End Date Status Omeprazole 20 MG Oral Capsule Delayed Release (PriLOSEC) Take 1 Capsule by mouth in the morning. 90 Capsule 1 11/15/2022 Active Vitamin D3 1.25 MG (53402 UT) Oral Capsule Take 1 Capsule by mouth once a week. 12 Capsule 3 01/30/2023 Active Additional Information Patient taking differently:50,000 Units Oral QWEEK,Every Monday, Reported on 05/18/2023 Atorvastatin Calcium 20 MG Oral Tablet (Lipitor)Indicatio ns:Coronary artery disease involving keweenaw coronary artery of keweenaw heart without angina pectoris TAKE 1 TABLET, [...] diastolic CHF (congestive heart failure) ([facility]) Take 2 Tablets by mouth in the morning. 180 Tablet 1 08/15/2023 Active Metoprolol Succinate ER 25 MG Oral Tablet Extended Release 24 Hour (Toprol XL)Indications:Chr onic diastolic CHF (congestive heart failure) ([facility]) Take 1 Tablet by mouth [...] with preserved ejection fraction (HFpEF) ([facility]) Take 1 Tablet by mouth [...] (Coumadin)Indicati ons:PAF (paroxysmal atrial fibrillation) ([facility]) Take 1 Tablet by mouth every evening. 2/8: 10 mg; Otherwise 5 mg every Tue, Wed, Fri; 7.5 mg all other days and as directed by [facility] Pharmacy 135 Tablet 1 01/02/2024 Active Cephalexin 500 MG Oral Capsule Take 1 Capsule by mouth in the morning and 1 Capsule before bedtime. 14 Capsule 01/02/2024 Active amLODIPine Besylate 2.5 MG Oral Tablet (Norvasc) Take 1 Tablet by mouth in the morning. 30 Tablet 01/03/2024 Active documented as of this encounter (statuses as of 01/09/2024) Active Problems Problem Noted Date Diagnosed Date [...] fibrillation) 10/18/2018 Coronary artery disease invo lving keweenaw coronary artery without angina pectoris 01/07/2015 [place] [...] as of this encounter (statuses as of 01/09/2024) Resolved Problems Problem Noted Date Diagnosed Date [...] as of this encounter (statuses as of 01/09/2024) Immunizations Name Administration Dates Next Due COVID-19 [...] as of this encounter Progress Notes * Jessica Peters RN - 01/09/2024 10:13 AM EDT Cleanse wounds with 1/2 strength hydrogen peroxide as needed and apply Aquaphor to all suture linesand over the skin graft site daily. Dudley Hinojosa MD Department of Otolaryngology-Head and Neck Surgery Head and Neck Surgical Oncology Microvascular Reconstructive Surgery Transoral Robotic Surgery Jessica Peters PhD RN md do resident urgent care Otolaryngology documented in this encounter Plan of Treatment Upcoming Encounters Date Type Department Care Team (Late st Contact Info) Description 01/17/2024 5:45 PM EDT Anticoagulation Pharmacy Call Center [address] [place] [address] [facility] [address] [place] [address] 01/18/2024 1:30 PM EDT Office Visit Radiation Oncology, [place] [address] [place] [address] Shelly Rashid MD [address] [place] [address] 01/24/2024 9:00 AM EDT Office Visit Otolaryngology/Head & Neck/Facial Plastic Surgery [address] [place] [address] Monik Edge CRNP [address] [place] [address] 02/13/2024 9:20 AM EDT Office Visit [address] [place] [address] Jad Boone MD [address] [place] [address] 02/16/2024 10:45 AM EDT Office Visit Otolaryngology/Head & Neck/Facial Plastic Surgery [address] [place] [address] Gurvinder Garcia MD [address] [place] [address] 06/06/2024 9:30 AM EDT Office Visit Cardiology, [place] [address] [place] [address] Yas Mckinnon CRNP [address] [place], [place] [address] Health Maintenance Due Date Last Done Comments [...] this encounter Medical Devices Implanted Type Area Dynamic Balancer Set Up Worker Device Identifier Shelf Expiration Date Model / Serial / Lot Connector Nerve 2mm 15mm - [id number] Implanted:Qty: 1 on 04/27/2023 by Dudley Hinojosa MD at [place] [facility] Left: Face [employer] [id number] 12/24/2024 [id number] / / [id number] Alloderm 4x7 Thin 0.8-1.2 (28 Units) - [id number] - [id number] Implanted:Qty: 28 on 04/27/2023 by Dudley Hinojosa MD at OR [facility] Left: Face ABBVIE 12/18/2024 [id number] / [id number] / [id number] Sheeting Monisha 2x3in X.020in - [id number] Implanted:Qty: 1 on 04/27/2023 by Dudley Hinojosa MD at OR [facility] Left: Ear ALLIED [employer] 09/25/2024700- / / [id number] Sheeting Monisha 2x3 In X.005in - [id number] Implanted:Qty: 1 on 12/12/2023 by Gurvinder Garcia MD at OR [facility] Left: Ear ALLIED BIOM[employer] 04/05/2026- / / [id number] documented as of this encounter Advance Directives Documents on File Type Date Recorded Patient Human Resources Hr Representative Expl anation POLST 04/26/2023 [place] OR [facility] FOR LIFE-SUSTAINING TREATMENT * Full Code [...] on File Name Relationship Healthcare [facility] Child Power of Desktop Publishing Specialist Care Teams Recruiter Coordinator Relationship Specialty Start Date End Date Jad Boone MD [address] [facility] [address] [place] [address] PCP - General Family Medicine 09/20/23 documented as of this encounter
--- OUTSIDE RECORDS SUMMARY | 2024-04-25 23:53 | External Medical Summary | Summary of Care ---
Author Name Unknown Organization [facility] Address [address] [place] [address] Phone [phone] Care Team Providers Care Fork Operator Name Role Phone Jad Boone MD Primary Care Provider Encounter Details Date Type Department Care Team (Late st Contact Info) Description 01/22/2024 Telephone Otolaryngology/Head & Neck/Facial Plastic Surgery [address] [place], [place] [phone] Monik Edge CRNP [address] [place] [address] Allergies Active Allergy Reactions Criticality Noted Date Comments Bee Venom Hives High 03/14/2017 documented as of this encounter (statuses as of 01/22/2024) Medications Medication Sig Dispensed Refills Start Date End Date Status Omeprazole 20 MG Oral Capsule Delayed Release (PriLOSEC) Take 1 Capsule by mouth in the morning. 90 Capsule 1 11/15/2022 Active Vitamin D3 1.25 MG (06721 UT) Oral Capsule Take 1 Capsule by mouth once a week. 12 Capsule 3 01/30/2023 Active Additional Information Patient taking differently:50,000 Units Oral QWEEK,Every Monday, Reported on 01/18/2024 Atorvastatin Calcium 20 MG Oral Tablet (Lipitor)Indicatio ns:Coronary artery disease involving caddo coronary artery of caddo heart without angina pectoris TAKE 1 TABLET, BY MOUTH, IN THE MORNING. 90 Tablet 1 03/04/2023 Active Acetaminophen 325 MG Oral Tablet (Tylenol) Take 2 Tablets by mouth every 6 hours as needed for Pain, Mild. 30 Tablet 04/03/2023 Active Multivitamin Adult Oral Tablet Take by mouth every evening. Active Furosemide 20 MG Oral Tablet (Lasix)Indications :Chronic diastolic CHF (congestive heart failure) ([facility]) Take 2 Tablets by mouth in the morning. 180 Tablet 1 08/15/2023 Active Metoprolol Succinate ER 25 MG Oral Tablet Extended Release 24 Hour (Toprol XL)Indications:Chr onic diastolic CHF (congestive heart failure) ([facility]) Take 1 Tablet by mouth [...] with preserved ejection fraction (HFpEF) ([facility]) Take 1 Tablet by mouth [...] (Coumadin)Indicati ons:PAF (paroxysmal atrial fibrillation) ([facility]) Take 1 Tablet by mouth every evening. 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 0 [...] Otolaryngology/Head & Neck/Facial Plastic Surgery [address] [facility] [place] [address] Monik Edge CRNP [address] [place] [address] 01/29/2024 5:45 PM EDT Anticoagulation Pharmacy Call Center [address] [place] [address] [facility] [address] [facility] [place] [address] 02/13/2024 9:20 AM EDT Office Visit [place] [address] [place] [address] Jad Boone MD [address] [place] [address] 02/16/2024 10:45 AM EDT Office Visit Otolaryngology/Head & Neck/Facial Plastic Surgery [address] [place] [address] Gurvinder Garcia MD [address] [place] [address] 06/06/2024 9:30 AM EDT Office Visit Cardiology, [place] [address] [place] [address] Yas Mckinnon CRNP [address] [place] [address] 07/23/2024 9:30 AM EST Office Visit Radiation Oncology, [facility] [address] [place] [address] Eros Faust MD [address] [place] [address] Health Maintenance Due Date Last Done Comments [...] this encounter Medical Devices Implanted Type Area Workplace Relations Adviser Device Identifier Shelf Expiration Date Model / Serial / Lot Connector Nerve 2mm 15mm - [id number] Implanted:Qty: 1 on 04/27/2023 by Dudley Hinojosa MD at [place] [facility] Left: Face [employer] [id number] 12/24/2024 [id number] / / [id number] Alloderm 4x7 Thin 0.8-1.2 (28 Units) - [id number] - [id number] Implanted:Qty: 28 on 04/27/2023 by Dudley Hinojosa MD at OR [facility] Left: Face ABBVIE 12/18/2024 [id number] / [id number] / [id number] Sheeting Monisha 2x3in X.020in - [id number] Implanted:Qty: 1 on 04/27/2023 by Dudley Hinojosa MD at OR [facility] Left: Ear ALLIED [employer] 09/25/2024- / [id number] Sheeting Monisha 2x3 In X.005in - [id number] Implanted:Qty: 1 on 12/12/2023 by Gurvinder Garcia MD at OR [facility] Left: Ear ALLIED [employer] 04/05/2026- / [id number] documented as of this encounter Advance Directives Documents on File Type Date Recorded Patient Deck Molder Expl anation POLST 04/26/2023 [place] OR [facility] FOR LIFE-SUSTAINING [...] Healthcare Agent [facility] p Communication [facility] Adult Child Power of Aviation Ordnance Officer Care Teams Fork Operator Relationship Specialty Start Date End Date Jad Boone MD [address] [facility] [address] [place] [address] PCP - General Family Medicine 09/20/23 documented as of this encounter
--- OUTSIDE RECORDS SUMMARY | 2024-04-25 23:53 | External Medical Summary | Summary of Care ---
Author Name Unknown Organization [facility] Address [address] [place] [address] Phone [phone] Care Team Providers Care Desulfurizer Operator Name Role Phone Jad Boone MD Primary Care Provider Reason for Referral * Evaluate & Treat - Unlimited Visits (Within 10 days (routine)) - Authorized Specialty Diagnoses / Procedures Referred By Maximino madrid Referred To Contact Physical Therapy / Physical Medicine And Rehab Diagnoses Generalized weakness Jad Boone MD [address] [facility] [address] [place] [address] Referral ID Status Reason Start Date Expiration Date Visits Requested Visits Authorized [id number] Authorized Specialty Services Required 01/09/[phone] Question Answer Referral Priority Within 10 days (routine) Where should this appointment be scheduled? [facility] Comments Post hospital weakness Reason for Visit * Reason Onset Date Comments Referral 01/08/2024 Encounter Details Date Type Department Care Team (Late st Contact Info) Description 01/08/2024 Telephone [facility], [address] [place] [address] [phone] Jad Boone MD [facility]5 [facility] [address] [place] [address] [phone] Referral Allergies Active Allergy Reactions Criticality Noted Date Comments Bee Venom Hives High 03/14/2017 documented as of this encounter (statuses as of 01/10/2024) Medications Medication Sig Dispensed Refills Start Date End Date Status Omeprazole 20 MG Oral Capsule Delayed Release (PriLOSEC) Take 1 Capsule by mouth in the morning. 90 Capsule 1 11/15/2022 Active Vitamin D3 1.25 MG (02626 UT) Oral Capsule Take 1 Capsule by mouth once a week. 12 Capsule 3 01/30/2023 Active Additional Information Patient taking differently:50,000 Units Oral QWEEK,Every Monday, Reported on 05/18/2023 Atorvastatin Calcium 20 MG Oral Tablet (Lipitor)Indicatio ns:Coronary artery disease involving [place] coronary artery of [place] heart without angina pectoris TAKE 1 TABLET, [...] all other days and as directed by [facility] 135 Tablet 1 01/02/2024 Active Cephalexin 500 MG Oral Capsule Take 1 Capsule by mouth in the morning and 1 Capsule before bedtime. 14 Capsule 01/02/2024 Active amLODIPine Besylate 2.5 MG Oral Tablet (Norvasc) Take 1 Tablet by mouth in the morning. 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 current use of anticoagulant therapy 0 05/01/2014 Overview: ICD-10 update of inactive term Heart failure, systolic, due to CAD 08/28/2012 Overview: ECHO 2011 - Segmental wall abnormality, severe hypokinesis of anterior septum, anterior wall, apex, distal inferior septum, distal inferior wall, and distal posterior wall EF 33% Mass of left parotid gland documented as of this encounter (statuses as of 01/10/2024) Resolved Problems Problem Noted Date Diagnosed Date [...] as of this encounter (statuses as of 01/10/2024) Immunizations Name Administration Dates Next Due COVID-19 [...] Telephone Encounter - Malinda Palma OSA - 01/10/2024 7:11 AM EDT Faxed referral to [facility]. * Telephone Encounter - Ladan Cazares LPN - 01/08/2024 11:34 AM EDT Aimee calling from [place]. She is requesting a PT Evaluation for hand, arm and leg strength Please fax order: documented in this encounter Plan of Treatment Upcoming Encounters Date Type Department Care Team (Late st Contact Info) Description 01/17/2024 5:45 PM EDT Anticoagulation Pharmacy Call Center [phone] [place] [address] [facility] [address] [facility] [place] [address] 01/18/2024 1:30 PM EDT Office Visit Radiation Oncology, [facility] [address] [place] [address] Shelly Rashid MD [address] [place] [address] 01/24/2024 9:00 AM EDT Office Visit Otolaryngology/Head & Neck/Facial Plastic Surgery [address] [place] [address] Monik Edge CRNP [address] [place] [address] 02/13/2024 9:20 AM EDT Office Visit [place] [address] [place] [address] Jad Boone MD [facility]2 [facility] [address] [place] [address] 02/16/2024 10:45 AM EDT Office Visit Otolaryngology/Head & Neck/Facial Plastic Surgery [address] [place] [address] Gurvinder Garcia MD [address] [place] [address] 06/06/2024 9:30 AM EDT Office Visit Cardiology, [place] [address] [place] [address] Yas Mckinnon CRNP [address] [place] [address] Scheduled Referrals Name Type Priority Associated Diagnoses Orde r Schedule PHYSICAL THERAPY REFERRAL OP Referral Within 10 days (routine) Generalized weakness Ordered: 01/09/2024 Health Maintenance Due Date Last Done Comments Albumin/Creatinine Ratio 1963 Hepatitis C Screening 1963 Zoster Vaccines (2 of 3) 06/26/2014 05/01/2014 *SPIROMETRY ONCE FOR ASTHMA-ADULT 07/14/2022 *NEPHROLOGY REFERRAL DUE TO RESISTANT HTN 09/25/2023 COVID-19 Vaccine ( - 2022- season) 2023 06/01/2023, 06/09/2022, 12/31/2021, Additional history [...] this encounter Medical Devices Implanted Type Area Pedigree Researcher Device Identifier Shelf Expiration Date Model / Serial / Lot Connector Nerve 2mm 15mm - [id number] Implanted:Qty: 1 on 04/27/2023 by Dudley Hinojosa MD at [place] [facility] [place] [place] Left: Face [employer] [id number] 12/24/2024 [id number] / / [id number] Alloderm 4x7 Thin 0.8-1.2 (28 Units) - [id number] - [id number] Implanted:Qty: 28 on 04/27/2023 by Dudley Hinojosa MD at OR [facility] [place] [place] Left: Face ABBVIE 12/18/2024 [id number] / [id number] / [id number] Sheeting Monisha 2x3in X.020in - [id number] Implanted:Qty: 1 on 04/27/2023 by Dudley Hinojosa MD at OR [facility] [place] [place] Left: Ear [employer] 09/25/2024700- / / [id number] Sheeting Monisha 2x3 In X.005in - [id number] Implanted:Qty: 1 on 12/12/2023 by Gurvinder Garcia MD at OR [facility] [place] [place] Left: Ear [employer] 04/05/2026- / / [id number] documented as of this encounter Visit Diagnoses Diagnosis Generalized weakness- Primary Other malaise and fatigue documented in this encounter Advance Directives Documents on File Type Date Recorded 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
--- OUTSIDE RECORDS SUMMARY | 2024-04-25 23:53 | External Medical Summary | Summary of Care ---
Author Name Unknown Organization [facility] Address [address] [place] [address] Phone [phone] Care Team Providers Care Audiology Assistant Name Role Phone Jad Boone MD Primary Care Provider Reason for Visit * Reason Onset Date Comments Advice 01/05/2024 Encounter Details Date Type Department Care Team (Late st Contact Info) Description 01/05/2024 Telephone Otolaryngology/Head & Neck/Facial Plastic Surgery [address] [place], [place] [phone] Dudley Hinojosa MD [address] [place] [phone] Advice Allergies Active Allergy Reactions Criticality Noted Date Comments Bee Venom Hives High 03/14/2017 documented as of this encounter (statuses as of 01/09/2024) Medications Medication Sig Dispensed Refills Start Date End Date Status Omeprazole 20 MG Oral Capsule Delayed Release (PriLOSEC) Take 1 Capsule by mouth in the morning. 90 Capsule 1 11/15/2022 Active Vitamin D3 1.25 MG (58845 UT) Oral Capsule Take 1 Capsule by mouth once a week. 12 Capsule 3 01/30/2023 Active Additional Information Patient taking differently:50,000 Units Oral QWEEK,Every Monday, Reported on 05/18/2023 Atorvastatin Calcium 20 MG Oral Tablet (Lipitor)Indicatio ns:Coronary artery disease involving [place] coronary artery of [place] heart without angina pectoris TAKE 1 TABLET, BY MOUTH, IN THE MORNING. 90 Tablet 1 03/04/2023 Active Acetaminophen 325 MG Oral Tablet (Tylenol) Take 2 Tablets by mouth every 6 hours as needed for Pain, Mild. 30 Tablet 04/03/2023 Active Multivitamin Adult Oral Tablet Take by mouth every evening. Active Furosemide 20 MG Oral Tablet (Lasix)Indications :Chronic diastolic CHF (congestive heart failure) ([facility]) Take 2 Tablets by mouth in the morning. 180 Tablet 1 08/15/2023 Active Metoprolol Succinate ER 25 MG Oral Tablet Extended Release 24 Hour (Toprol XL)Indications:Chr onic diastolic CHF (congestive heart failure) ([facility]) Take 1 Tablet by mouth [...] heart failure with preserved ejection fraction (HFpEF) ([facility]) Take 1 Tablet by mouth [...] Oral Tablet (Coumadin)Indicati ons:PAF (paroxysmal atrial fibrillation) ([facility]) Take 1 Tablet by mouth every evening. 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 Jessica Peters PhD RN back up machine operator Otolaryngology * Telephone Encounter - Jessica Peters RN - 01/05/2024 11:07 AM EDT VM received from Aimee MUSEUM INFORMATICS SPECIALIST regarding patient's wound care. Return call to [facility]. Per Aimee, patientis requesting is wounds be cleaned by nursing. No current order for cleansing wounds. Patient isapplying Aquaphor to incision lines. Patient also stating that over the last two days his hearing has been muted. Jessica Peters PhD RN back up machine operator Otolaryngology documented in this encounter Plan of Treatment Upcoming Encounters Date Type Department Care Team (Late st Contact Info) Description 01/17/2024 5:45 PM EDT Anticoagulation Pharmacy Call Center [phone] [facility] [place] [address] [facility] [address] [facility] [address] 01/18/2024 1:30 PM EDT Office Visit Radiation Oncology, [facility] [address] [place], [place] [phone] [facility] [address] [facility] [address] 01/24/2024 9:00 AM EDT Office Visit Otolaryngology/Head & Neck/Facial Plastic Surgery [address] [place] [address] Monik Edge CRNP [address] [place] [address] 02/13/2024 9:20 AM EDT Office Visit [facility] [address] [place] [address] Jad Boone MD [facility]2 [facility] [address] [place] [address] 02/16/2024 10:45 AM EDT Office Visit Otolaryngology/Head & Neck/Facial Plastic Surgery [address] [place] [address] Gurvinder Garcia MD [address] [place] [address] 06/06/2024 9:30 AM EDT Office Visit Cardiology, [place] [address] [place] [address] Yas Mckinnon CRNP [address] [place] [address] Health Maintenance Due Date Last Done Comments [...] this encounter Medical Devices Implanted Type Area Printed Circuit Board Reworker Device Identifier Shelf Expiration Date Model / Serial / Lot Connector Nerve 2mm 15mm - [id number] Implanted:Qty: 1 on 04/27/2023 [place] H[place] [facility] [facility] [place] Face [employer] [id number] 12/24/2024 [id number] / / [id number] Alloderm 4x7 Thin 0.8-1.2 (28 Units) - [id number] - [id number] Implanted:Qty: 28 on 04/27/2023 by Dudley Hinoj[place] [facility] [place] [facility] [place]: Face ABBVIE 12/18/2024 [id number] / [id number] / [id number] Sheeting Monisha 2x3in X.020in - [id number] Implanted:Qty: 1 on 04/27/2023 by Dudley Hinojosa [place] [facility] [place]: Ear [employer] 09/25/2024- / / [id number] Sheeting Monisha 2x3 In X.005in - [id number] Implanted:Qty: 1 on 12/12/2023 by Gurvinder Garcia [place] [facility] [place] [facility] [place] Ear [employer] 04/05/2026- / / [id number] documented as of this encounter Advance Directives Documents on File Type Date Recorded 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
--- OUTSIDE RECORDS SUMMARY | 2024-04-25 23:53 | External Medical Summary | Summary of Care ---
Author Name Unknown Organization [facility] Address [address] [place] [address] Phone [phone] Care Team Providers Care Delivery Agent Name Role Phone Jad Boone MD Primary Care Provider Reason for Visit * Reason Comments Follow Up Encounter Details Date Type Department Care Team (Late st Contact Info) Description 01/24/2024 10:00 AM EDT Office Visit Otolaryngology/Head & Neck/Facial Plastic Surgery [address] [place], [place] [phone] Monik Edge CRNP [address] [place] [address] History of squamous cell carcinoma*; [...] 1 11/15/2022 Active Vitamin D3 1.25 MG (55195 UT) Oral Capsule Take 1 Capsule by mouth once a week. 12 Capsule 3 01/30/2023 Active Additional Information Patient taking differently:50,000 Units Oral QWEEK,Every Monday, Reported on 01/18/2024 Atorvastatin Calcium 20 MG Oral Tablet (Lipitor)Indicatio ns:Coronary artery disease involving [place] coronary artery of [place] heart without angina pectoris TAKE 1 [...] all other days and as directed by [facility] 135 Tablet 1 01/02/2024 Active [...] fibrillation) 10/18/2018 Coronary artery disease invo lving [place] coronary artery without angina pectoris 01/07/2015 long [...] mRNA, LNP-s, No Pre serve, 2-Dose Series ([employer]) 11/26/2020,11/05/2020 Pneumococcal Conjugate Vacc, 13 Valent (Prevnar) [...] by local excision 3 years ago in [place]. Denies facial weakness. 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 Patient was reviewed at multidisciplinary H&N tumor board with recommendation for surgical resection. Past Medical History: Reviewed. Past Surgical History: Reviewed. Family History: Reviewed. Medications and Allergies: Reviewed. Patient Active Problem List Diagnosis Heart failure, systolic, due to CAD (HCC) retirement current use of anticoagulant therapy Coronary artery disease involving [place] coronary artery without angina pectoris PAF [...] Anticoagulation [facility], [place] [address] [place] [address] [place] [address] [facility] 58 60 [facility] [place] [address] 02/13/2024 9:20 AM EDT Office Visit [facility] [address] [place] [address] Jad Boone MD [address] [place] [address] 02/16/2024 10:45 AM EDT Office Visit Otolaryngology/Head & Neck/Facial Plastic Surgery [address] [place] [address] Gurvinder Garcia MD [address] [place] [address] 06/06/2024 9:30 AM EDT Office Visit Cardiology, [place] [address] [place] [address] Yas Mckinnon CRNP [address] [place] [address] 07/23/2024 9:30 AM EST Office Visit Radiation Oncology, [facility] [address] [place] [address] Eros Faust MD [address] [place] [address] Scheduled Orders Name Type Priority Associated Diagnoses [...] this encounter Medical Devices Implanted Type Area Bioinformatics Team Member Device Identifier Shelf Expiration Date Model / Serial / Lot Connector Nerve 2mm 15mm - [id number] Implanted:Qty: 1 on 04/27/2023 by Dudley Hinojosa MD [place] [facility] [place]: Face [employer] [id number] 12/24/2024 [id number] / / [id number] Alloderm 4x7 Thin 0.8-1.2 (28 Units) - [id number] - [id number] Implanted:Qty: 28 on 04/27/2023 by Dudley Hinojosa MD [place] [facility] [place]: Face ABBVIE 12/18/2024 [id number] / [id number] / [id number] Sheeting Monisha 2x3in X.020in - [id number] Implanted:Qty: 1 on 04/27/2023 by Dudley Hinojosa MD at [place] [facility] [place]: Ear [employer] 09/25/2024 [id number] Sheeting Monisha 2x3 In X.005in - [id number] Implanted:Qty: 1 on 12/12/2023 by Gurvinder Garcia MD at [place] [facility] [place]: Ear [employer] 04/05/2026 [id number] documented as of this encounter Visit Diagnoses Diagnosis History of squamous cell carcinoma- Primary Personal history of malignant neoplasm of other site S/P flap graft Other postprocedural status Infection of left external ear Infective otitis externa, unspecified documented in this encounter Advance Directives Documents on File Type Date Recorded 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 [place] [address] PCP - General Family Medicine 09/20/23 documented as of this encounter
--- OUTSIDE RECORDS SUMMARY | 2024-04-25 23:54 | External Medical Summary | Summary of Care ---
Author Name Unknown Organization [facility] Address [address] [place] [address] Phone [phone] Care Team Providers Care Government Minister Name Role Phone Jad Boone MD Primary Care Provider Reason for Visit * Reason Onset Date Comments Status Check [place] Foll ow up Hospital Follow-Up 01/03/2024 Encounter Details Date Type Department Care Team (Late st Contact Info) Description 01/02/2024 10:40 AM EDT Office Visit [place] [address] [place] [address] [phone] Jad Boone MD [address] [place] [address] [place] [address] [phone] Hospital discharge follow-up*; PAF (paroxysmal atrial fibrillation) (HCC); Coronary artery disease involving [place] coronary artery without angina pectoris, unspecified whether [place] or transplanted heart; Mild intermittent asthma without complication Allergies Active Allergy Reactions Criticality Noted Date Comments Bee Venom Hives High 03/14/2017 documented as of this encounter (statuses as of 01/03/2024) Medications Medication Sig Dispensed Refills Start Date End Date Status Omeprazole 20 MG Oral Capsule Delayed Release (PriLOSEC) Take 1 Capsule by mouth in the morning. 90 Capsule 1 3 Active Vitamin D3 1.25 MG (26375 UT) Oral Capsule Take 1 Capsule by mouth once a week. 12 Capsule 3 3 Active Additional Information Patient taking differently:50,000 Units Oral QWEEK,Every Monday, Reported on 05/18/2023 Atorvastatin Calcium 20 MG Oral Tablet (Lipitor)Indica tions:Coronary artery disease involving [place] coronary artery of [place] heart without angina pectoris TAKE 1 TABLET, BY MOUTH, IN THE MORNING. 90 Tablet 1 3 Active Acetaminophen 325 MG Oral Tablet (Tylenol) Take 2 Tablets by mouth every 6 hours as needed for Pain, Mild. 30 Tablet 0 3 Active Multivitamin Adult Oral Tablet Take by mouth every evening. 0 Active Furosemide 20 MG Oral Tablet (Lasix)Indicati ons:Chronic diastolic CHF (congestive heart failure) ([facility]) Take 2 Tablets by mouth in the morning. 180 Tablet 1 3 Active Metoprolol Succinate ER 25 MG Oral Tablet Extended Release 24 Hour (Toprol XL)Indications: Chronic diastolic CHF (congestive heart failure) ([facility]) Take 1 Tablet by mouth in the morning. 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 0 Active Lisinopril 10 MG Oral Tablet (Prinivil)Indic ations:Chronic heart failure with preserved ejection fraction (HFpEF) ([facility]) Take 1 Tablet by mouth in the morning. 90 Tablet 3 4 Active Bacitracin Zinc 500 UNIT/GM External Ointment Apply topically to affected area 2 times a day. Apply to left ear/neck suture/staple lines and bolsters twice per day. Please keep the bolsters moist. 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 103.317 mL 0 4 Active oxyCODONE HCl 5 MG Oral Capsule (Oxy IR) Take 1 Capsule by mouth every 6 hours as needed. 0 Active Warfarin Sodium 5 MG Oral Tablet (Coumadin)Indic ations:PAF (paroxysmal atrial fibrillation) (HCC) Take 1 Tablet by mouth every evening. 2/8: 10 mg; Otherwise 5 mg every Tue, Wed, Fri; 7.5 mg all other days and as directed by [facility] 135 Tablet 1 4 Active Cephalexin 500 MG Oral Capsule Take 1 Capsule by mouth in the morning and 1 Capsule before bedtime. 14 Capsule 0 4 Active Warfarin Sodium 5 MG Oral Tablet (Coumadin)Indic ations:PAF (paroxysmal atrial fibrillation) (HCC) Take 1 Tablet by mouth every evening. 2/8: 10 mg; Otherwise 5 mg every Tue, Wed, Mon; 7.5 mg all other days and as directed by [facility] 100 Tablet 1 4 01/02/20 24 Discontinued(Ref ill) Ciprofloxacin HCl 500 MG Oral Tablet (Cipro) Take 1 Tablet by mouth in the morning and 1 Tablet before bedtime. Do all this for 10 days. Do not start before December 14, 2023. 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 103.317 mL 0 4 01/02/20 24 Discontinued(Med ication List Clean Up) Cephalexin 500 MG Oral Capsule Take 1 Capsule by mouth in the morning and 1 Capsule before bedtime. Do all this for 7 days. 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 0 05/01/2014 Overview: ICD-10 update of inactive term Heart failure, systolic, due to CAD 08/28/2012 Overview: ECHO 2011 - Segmental wall abnormality, severe hypokinesis of anterior septum, anterior wall, apex, distal inferior septum, distal inferior wall, and distal posterior wall EF 33% Mass of left parotid gland documented as of this encounter (statuses as of 01/03/2024) Resolved Problems Problem Noted Date Diagnosed Date [...] as of this encounter (statuses as of 01/03/2024) Immunizations Name Administration Dates Next Due COVID-19 mRNA, LNP-s, No Pre serve, 2-Dose Series ([place]) 11/26/2020,11/05/2020 Pneumococcal Conjugate Vacc, 13 Valent (Prevnar) [...] Sign Reading Time Taken Comments Blood Pressure 148/68 01/02/2024 10:40 AM EDT Pulse 56 01/02/2024 10:40 AM EDT Temperature 36.4 C (97.6 F) 01/02/2024 10:40 AM E DT Respiratory Rate - - Oxygen Saturation 96% 01/02/2024 10:40 AM EDT Inhaled Oxygen Concentration - - [...] as of this encounter Progress Notes * Jad Boone MD - 01/03/2024 10:51 PM EDT SUBJECTIVE: Stephen Varela is a 78 year old male. Chief Complaint Patient presents with Status Check [place] Follow up Hospital Follow-Up Recent Admission: Patient was recently admitted to Hospital and then Rehab. The date of discharge was 12/25/23. Discharge report received and reviewed. HPI: Pleasant 78-year-old gentleman who was admitted to hospital for surgical procedure on his leftpinna and areas there about Then went to rehab and returned to his apartment and proximally 8 days ago He reports he can hear better but otherwise is not real sure how he is doing he does have follow-up Requests refills and these are arranged He is right-hand dominant notes bilateral upper extremity weakness and numbness He sleeping well and getting around his apartment without untoward difficulty Patient Active Problem List Diagnosis Code Heart failure, systolic, due to CAD ([facility]) I50.20, I25.10 nursing home current use of anticoagulant therapy Z79.01 Coronary artery disease involving [place] coronary artery without angina pectoris I25.10 PAF (paroxysmal atrial fibrillation) ([facility]) I48.0 Mild intermittent asthma without complication J45.20 Other specified peripheral vascular diseases ([facility]) I73.89 Chronic diastolic CHF (congestive heart failure) ([facility]) I50.32 Essential hypertension with goal blood pressure less than 140/90 I10 Dyslipidemia, goal LDL below 70 E78.5 Atypical migraine G43.009 Other specified anemias D64.89 Suspected sleep apnea R29.818 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 90Capsule 1 Vitamin D3 1.25 MG (08991 UT) Oral Capsule Take 1 Capsule by mouth once a week. (Patient taking differently: Take 1 Capsule by mouth once a week. Every Monday) 12 Capsule 3 Atorvastatin Calcium 20 MG Oral Tablet (Lipitor) TAKE 1 TABLET, BY MOUTH, IN THE MORNING. 90 Tablet1 Acetaminophen 325 MG Oral Tablet (Tylenol) Take 2 Tablets by mouth every 6 hours as needed for Pain, Mild. 30 Tablet 0 Multivitamin Adult Oral Tablet Take by mouth every evening. Furosemide 20 MG Oral Tablet (Lasix) Take 2 Tablets by mouth in the morning. 180 Tablet 1 Metoprolol Succinate ER 25 MG Oral Tablet Extended Release 24 Hour (Toprol XL) Take 1 Tablet by mouth in the morning. 90 Tablet 3 Ventolin HFA 108 (90 Base) MCG/ACT Inhalation Aerosol Solution Inhale 2 Puffs by mouth every 4 hours as needed for Shortness of Breath. Lisinopril 10 MG Oral Tablet (Prinivil) Take 1 Tablet by mouth in the morning. 90 Tablet 3 Ofloxacin 0.3 % Otic Solution (Floxin) Administer 5 Drops into ears in the morning and 5 Drops before bedtime. 103.317 mL 0 oxyCODONE HCl 5 MG Oral Capsule (Oxy IR) Take 1 Capsule by mouth every 6 hours as needed. Warfarin Sodium 5 MG Oral Tablet (Coumadin) Take 1 Tablet by mouth every evening. 09/28: 10 mg; Otherwise 5 mg every Mon, Mon, Mon; 7.5 mg all other days and as directed by [facility] 135 Tablet 1 Cephalexin 500 MG Oral Capsule Take 1 Capsule by mouth in the morning and 1 Capsule before bedtime.14 Capsule 0 Qtlwfigks-Sizaacxx-Lglscl Alc 2-14-10.5 % External Cream Apply to both lower extremities once a day56 g 2 Bacitracin Zinc 500 UNIT/GM External Ointment Apply topically to affected area 2 times a day. Applyto left ear/neck suture/staple lines and bolsters twice per day. Please keep the bolsters moist. 113.6 g 0 Bacitracin 500 UNIT/GM External Ointment amLODIPine Besylate 2.5 MG Oral Tablet (Norvasc) Take 1 Tablet by mouth in the morning. 30 Tablet 0 No current facility-administered medications for this visit. Current and discharge medications have been reconciled. Review of patient's allergies indicates: Allergen Reactions Bee Venom Hives OBJECTIVE: BP 148/68 | Pulse 56 | Temp 36.4 C (97.6 F) (Tympanic) | SpO2 96% Review Of Systems: Since returning home, patient denies Skin. Patient denies new or different rashes or skin breakdown. Eyes. Denies visual changes eye redness or eye discharge. Ear nose and throat. Denies sinus pain or teeth pain. Respiratory. Denies cough or hemoptysis. Cardiovascular. Denies paroxysmal nocturnal dyspnea dyspnea exertion. Gastrointestinal. Denies vomiting or melanotic stool. Genitourinary. Denies hematuria or dysuria. Constitutional. Denies fevers or weight loss PHYSICAL EXAM: BP 148/68 | Pulse 56 | Temp 36.4 C (97.6 F) (Tympanic) | SpO2 96% General: alert and no distress Head: Normocephalic, No masses, lesions, tenderness or abnormalities Eye Exam: PERRLA, extraocular movements intact, conjunctiva are pink and non- injected, sclera clear Right tympanic membrane unremarkable and did not view left tympanic membrane. Oropharynx: no exudate, no erythema, lips, buccal mucosa, and tongue normal, and mucous membranes are moist Neck: supple, no adenopathy, no JVD Lymph: no palpable lymphadenopathy Heart: regular rate & rhythm Lungs: lungs clear to auscultation ASSESSMENT: Hospital discharge follow-up (Primary) - DISCH MED RECON CUR MED LIS PAF (paroxysmal atrial fibrillation) ([facility]) - Warfarin Sodium 5 MG Oral Tablet (Coumadin); Take 1 Tablet by mouth every evening. 8: 10 mg; Otherwise 5 mg every e, Mon, Mon; 7.5 mg all other days and as directed by [facility] Coronary artery disease involving [place] coronary artery without angina pectoris, unspecified whether [place] or transplanted heart Mild intermittent asthma without complication Other orders - Cephalexin 500 MG Oral Capsule; Take 1 Capsule by mouth in the morning and 1 Capsule before bedtime. PLAN: Continue present medication(s): Follow up per [facility]. I spent a total of 40-54 minutes (exact time 44 mins) minutes on the date of service in preparation, delivery, and documentation of the care provided to Stephen Varela excluding any time spent in performance of separately billed services. Jad Boone MD documented in this encounter Nursing Notes * Shanna Hidalgo LPN - 01/02/2024 10:40 AM EDT Chief Complaint Patient presents with Status Check [place] Follow up documented in this encounter Plan of Treatment Upcoming Encounters Date Type Department Care Team (Late st Contact Info) Description 01/08/2024 5:45 PM EDT Anticoagulation Pharmacy Call Center [phone] [place] [address] [facility], [facility] [address] [facility] [place] [place] [address] 01/18/2024 1:30 PM EDT Office Visit Radiation Oncology, [facility] [address] [place] [address] Shelly Rashid MD [address] [place] [address] 01/24/2024 9:00 AM EDT Office Visit Otolaryngology/Head & Neck/Facial Plastic Surgery [address] [place] [address] Monik Edge CRNP [address] [place] [address] 02/13/2024 9:20 AM EDT Office Visit [place] [address] [place] [phone] Jad Boone MD [facility] [address] [place] [address] 02/16/2024 10:45 AM EDT Office Visit Otolaryngology/Head & Neck/Facial Plastic Surgery [address] [facility] [place] [address] Gurvinder Garcia MD [address] [place] [address] 06/06/2024 9:30 AM EDT Office Visit Cardiology, [address] [address] Yas Mckinnon CRNP [address] [place] [address] Health Maintenance Due Date Last Done Comments Albumin/Creatinine Ratio 1963 Hepatitis C Screening 1963 Zoster Vaccines (2 of 3) 06/26/2014 05/01/2014 *SPIROMETRY ONCE FOR ASTHMA-ADULT 07/14/2022 COVID-19 Vaccine ( season) 2023 06/01/2023, 06/09/2022, 12/31/2021, Additional history exists *NEPHROLOGY REFERRAL DUE TO RESISTANT HTN 09/25/2023 [...] this encounter Medical Devices Implanted Type Area Operations Mgr Device Identifier Shelf Expiration Date Model / Serial / Lot Connector Nerve 2mm 15mm - [id number] Implanted:Qty: 1 on 04/27/2023 by Dudley Hinojosa MD at [facility] Left: Face [employer] [id number] 12/24/2024 [id number] / / [id number] Alloderm 4x7 Thin 0.8-1.2 (28 Units) - [id number] - [id number] Implanted:Qty: 28 on 04/27/2023 by Dudley Hinojosa MD at [facility] Left: Face ABBVIE 12/18/2024 [id number] / [id number] / [id number] Sheeting Monisha 2x3in X.020in - [id number] Implanted:Qty: 1 on 04/27/2023 by Dudley Hinojosa MD at [facility] Left: Ear [employer] 09/25/2024-700-20 / / [id number] Sheeting Monisha 2x3 In X.005in - [id number] Implanted:Qty: 1 on 12/12/2023 by Gurvinder Garcia MD at [facility] Left: Ear [employer] 04/05/2026- / / [id number] documented as of this encounter Visit Diagnoses Diagnosis Hospital discharge follow-up- Primary Other follow-up examination PAF (paroxysmal atrial fibrillation) (HCC) Atrial fibrillation Coronary artery disease involving [place] coronary artery without angina pectoris, unspecified whether [place] or transplanted heart Mild intermittent asthma without complication Unspecified asthma documented in this encounter Advance Directives Documents on File Type Date Recorded Patient 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 Question Answer Comments Discussion of Advance Directives occurred with: Not Discussed due to patient's condition Code Status History Code Status Date Activated Date Inactivated Comments Full Code 04/26/2023 8:55 PM 05/01/2023 5:21 PM This o rder reflects the patients wishes and were consensually agreed upon. Question Answer Comments Discussion of Advance Directives occurred with: Not Discussed due to patient's condition Full Code 03/27/2023 2:01 AM 04/03/2023 8:44 PM Question Answer Comments Discussion of Advance Directives occurred with: Not Discussed due to patient's condition Full Code 03/26/2023 8:39 PM 03/27/2023 12:22 AM This o rder reflects the patients wishes and were consensually agreed upon. Question Answer Comments Discussion of Advance Directives occurred with: Patient Full Code 03/29/2022 1:46 PM 04/02/2022 7:51 PM This o rder reflects the patients wishes and were consensually agreed upon. Question Answer Comments Discussion of Advance Directives occurred with: Patient Healthcare Agents on File Name Relationship [facility] Brody Thomasn Adult Child Power of Ship Engineer Care Teams Government Minister Relationship Specialty Start Date End Date Jad Boone MD [address] [address] [place] [id number] PCP - General Family Medicine 09/20/23 documented as of this encounter
--- OUTSIDE RECORDS SUMMARY | 2024-04-25 23:54 | External Medical Summary | Summary of Care ---
Author Name Unknown Organization [facility] Address [address] [place] [address] Phone [phone] Care Team Providers Care Salicylic Acid Blender Name Role Phone Jad Boone MD Primary Care Provider Reason for Visit * Reason Comments Dosage Adjustment Via Phone (anticoag Cl inic) Encounter Details Date Type Department Care Team (Latest Contact Info) Description 01/01/2024 5:45 PM EDT Anticoagulation Pharmacy Call Center [address] [place] [address] [facility] [address] [place] [address] PAF (paroxysmal atrial fibrillation) ([facility])* Allergies Active Allergy Reactions Criticality Noted Date Comments Bee Venom Hives High 03/14/2017 documented as of this encounter (statuses as of 01/01/2024) Medications Medication Sig Dispensed Refills Start Date End Date Status Omeprazole 20 MG Oral Capsule Delayed Release (PriLOSEC) Take 1 Capsule by mouth in the morning. 90 Capsule 1 11/15/2022 Active Vitamin D3 1.25 MG (92507 UT) Oral Capsule Take 1 Capsule by mouth once a week. 12 Capsule 3 01/30/2023 Active Additional Information Patient taking differently:50,000 Units Oral QWEEK,Every Monday, Reported on 05/18/2023 Atorvastatin Calcium 20 MG Oral Tablet (Lipitor)Indicatio ns:Coronary artery disease involving [place] coronary artery of [place] heart without angina pectoris TAKE 1 TABLET, BY MOUTH, IN THE MORNING. 90 Tablet 1 03/04/2023 Active Acetaminophen 325 MG Oral Tablet (Tylenol) Take 2 Tablets by mouth every 6 hours as needed for Pain, Mild. 30 Tablet 0 04/03/2023 Active Multivitamin Adult Oral Tablet Take by mouth every evening. 0 Active Furosemide 20 MG Oral Tablet (Lasix)Indications :Chronic diastolic CHF (congestive heart failure) ([facility]) Take 2 Tablets by mouth in the morning. 180 Tablet 1 08/15/2023 Active Metoprolol Succinate ER 25 MG Oral Tablet Extended Release 24 Hour (Toprol XL)Indications:Chr onic diastolic CHF (congestive heart failure) ([facility]) Take 1 Tablet by mouth in the morning. 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 09/28: 10 mg; Otherwise 5 mg every Mon, Wed, Mon; 7.5 mg all other days and as directed by [facility] Pharmacy 100 Tablet 1 10/04/2023 Active Ventolin HFA 108 (90 Base) MCG/ACT Inhalation Aerosol Solution Inhale 2 Puffs by mouth every 4 hours as needed for Shortness of Breath. 0 Active Lisinopril 10 MG Oral Tablet (Prinivil)Indicati ons:Chronic heart failure with preserved ejection fraction (HFpEF) ([facility]) Take 1 Tablet by mouth in the morning. 90 Tablet 3 11/10/2023 Active Bacitracin Zinc 500 UNIT/GM External Ointment Apply topically to affected area 2 times a day. Apply to left ear/neck suture/staple lines and bolsters twice per day. Please keep the bolsters moist. 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 anticoagulant therapy 0 05/01/2014 Overview: ICD-10 update of inactive term Heart failure, systolic, due to CAD 08/28/2012 Overview: ECHO 2011 - Segmental wall abnormality, severe hypokinesis of anterior septum, anterior wall, apex, distal inferior septum, distal inferior wall, and distal posterior wall EF 33% Mass of left parotid gland documented as of this encounter (statuses as of 01/01/2024) Resolved Problems Problem Noted Date Diagnosed Date Resolved Date Ankylosing spondylitis of un specified sites in spine 08/16/2023 10/04/2023 Overview: CT 2022: "ossification of the supraspinous ligament consistent with ankylosing spondylitis. ". Closed T10 spinal fracture 03/28/2023 1 10/17/2022 Heart failure, diastolic, wi th acute decompensation 03/28/2023 08/16/2023 Symptomatic anemia 04/02/2022 08/13/202 2 Acute blood loss anemia 04/02/2022 0303/2023 Hypoxia [...] as of this encounter (statuses as of 01/01/2024) Immunizations Name Administration Dates Next Due COVID-19 [...] Notes * Geena Andrade PHARM Tech - 01/01/2024 11:01 AM EDT Contacts Type Contact Phone/Fax 01/01/2024 10:59 AM EDT Phone (Outgoing) Stephen Varela (Self) [phone] (M) Left Message Subjective Advised patient to contact Anticoagulation Clinic if any unusual bruising or bleeding, recent illness, changes in medication, or questions/concerns. PT/INR results, Coumadin dose instructions, and next PT/INR date communicated as noted by Pharmacist: Yes ARMANDO CASTILLO 01/01/2024, 11:01 AM * Alyson Salinas RPh - 01/01/2024 9:28 AM EDT Coumadin Clinic (region specific) Objective Current Warfarin Dose As of 01/01/2024 Warfarin maintenance plan: 5 mg (1 mg x 5) every Fri; 7.5 mg (1 mg x 7.5) all other days INR Result As of 01/01/2024 INR goal: 2.0-3.0 INR used for dosin.4 (01/01/2024) Assessment & Plan Warfarin Plan As of 01/01/2024 Full warfarin instructions: 12/31: Hold; Otherwise 5 mg every Fri; 7.5 mg all other days Next INR check: 01/08/2024 Repeat PT/INR in 1 week(s) Weekly dose: not changed Additional Dosing Information: Description Call patient while at [facility] AND fax Facility at [phone] pt started multivitamin around beginning of October Tech to contact patient with dose instructions as noted. Alyson Salinas RPh 01/01/2024, 9:28 AM documented in this encounter Plan of Treatment Upcoming Encounters Date Type Department Care Team (Late st Contact Info) Description 01/02/2024 10:40 AM EDT Office Visit [facility] [address] [place] [address] Jad Boone MD [address] [place] [address] 01/08/2024 5:45 PM EDT Anticoagulation Pharmacy Call Center [address] [place] [address] Ccps, [facility] [address] 60 [place] [address] 01/18/2024 1:30 PM EDT Office Visit Radiation Oncology, [facility] [address] [place] [address] Shelly Rashid MD [address] [place] [address] 02/13/2024 9:20 AM EDT Office Visit [place] [address] [place] [address] Jad Boone MD [address] [facility] [address] [place] [address] 02/16/2024 10:45 AM EDT Office Visit Otolaryngology/Head & Neck/Facial Plastic Surgery [address] [place] [address] Gurvinder Garcia MD [address] [place] [address] 06/06/2024 9:30 AM EDT Office Visit Cardiology, [place] [address] [place] [address] Yas Mckinnon CRNP [address] [place] [address] Health Maintenance Due Date Last Done Comments [...] this encounter Medical Devices Implanted Type Area Solar Thermal Installer Device Identifier Shelf Expiration Date Model / Serial / Lot Connector Nerve 2mm 15mm - [id number] Implanted:Qty: 1 on 04/27/2023 by Dudley Hinojosa MD at OR [facility] Left: Face [employer] [id number] 12/24/2024 [id number] / / [id number] Alloderm 4x7 Thin 0.8-1.2 (28 Units) - [id number] - [id number] Implanted:Qty: 28 on 04/27/2023 by Dudley Hinojosa MD at OR [facility] Left: Face ABBVIE 12/18/2024 [id number] / [id number] / [id number] Sheeting Monisha 2x3in X.020in - [id number] Implanted:Qty: 1 on 04/27/2023 by Dudley Hinojosa MD at OR [facility] Left: Ear [employer] 09/25/2024700- / / [id number] Sheeting Monisha 2x3 In X.005in - [id number] Implanted:Qty: 1 on 12/12/2023 by Gurvinder Garcia MD at OR [facility] Left: Ear [employer] 04/05/2026- / [id number] documented as of this encounter Visit Diagnoses Diagnosis PAF (paroxysmal atrial fibrillation) (HCC)- Primary Atrial fibrillation documented in this encounter Advance Directives Documents on File Type Date Recorded Patient Director Talent Management Expl anation POLST 04/26/2023 [place] OR [facility] FOR LIFE-SUSTAINING TREATMENT Latest Code Status on [...] 1:46 PM 04/02/2022 7:51 PM This order reflects the patients wishes and were consensually agreed upon. Question Answer Comments Discussion of Advance Directives occurred with: Patient Healthcare Agents on File Name Relationship Healthcare Agent Relationshi p Communication Brody Avery Adult Child Power of Elevator Constructor Supervisor Care Teams Salicylic Acid Blender Relationship Specialty Start Date End Date Jad Boone MD [address] [place] [address] [place] [address] PCP - General Family Medicine 09/20/23 documented as of this encounter
--- OUTSIDE RECORDS SUMMARY | 2024-04-25 23:54 | External Medical Summary | Summary of Care ---
Author Name Unknown Organization [facility] Address [address] [place] [address] Phone [phone] Care Team Providers Care Lugger Name Role Phone Jad Boone MD Primary Care Provider Reason for Visit * Reason Comments Dosage Adjustment Via Phone (anticoag Cl inic) Encounter Details Date Type Department Care Team (Latest Contact Info) Description 01/08/2024 5:45 PM EDT Anticoagulation Pharmacy Call Center [address] [place] [address] [facility] [address] [place] [address] PAF (paroxysmal atrial fibrillation) ([facility])* Allergies Active Allergy Reactions Criticality Noted Date Comments Bee Venom Hives High 03/14/2017 documented as of this encounter (statuses as of 01/08/2024) Medications Medication Sig Dispensed Refills Start Date End Date Status Omeprazole 20 MG Oral Capsule Delayed Release (PriLOSEC) Take 1 Capsule by mouth in the morning. 90 Capsule 1 11/15/2022 Active Vitamin D3 1.25 MG (19820 UT) Oral Capsule Take 1 Capsule by mouth once a week. 12 Capsule 3 01/30/2023 Active Additional Information Patient taking differently:50,000 Units Oral QWEEK,Every Monday, Reported on 05/18/2023 Atorvastatin Calcium 20 MG Oral Tablet (Lipitor)Indicatio ns:Coronary artery disease involving [place] coronary artery of [place] heart without angina pectoris TAKE 1 TABLET, [...] all other days and as directed by [facility] Pharmacy 135 Tablet 1 01/02/2024 Active Cephalexin 500 MG Oral Capsule Take 1 Capsule by mouth in the morning and 1 Capsule before bedtime. 14 Capsule 01/02/2024 Active amLODIPine Besylate 2.5 MG Oral Tablet (Norvasc) Take 1 Tablet by mouth in the morning. 30 Tablet 01/03/2024 Active documented as of this encounter (statuses as of 01/08/2024) Active Problems Problem Noted Date Diagnosed Date [...] fibrillation) 10/18/2018 Coronary artery disease invo lving [place] coronary artery without angina pectoris 01/07/2015 terminal [...] as of this encounter (statuses as of 01/08/2024) Resolved Problems Problem Noted Date Diagnosed Date [...] as of this encounter (statuses as of 01/08/2024) Immunizations Name Administration Dates Next Due COVID-19 [...] Notes * Samuel Joseph PHARM Tech - 01/08/2024 1:18 PM EDT Contacts Type Contact Phone/Fax 01/08/2024 01:16 PM EDT Phone (Outgoing) Stephen Varela (Self) [phone] (M) Left Message Subjective PT/INR results, Coumadin dose instructions, and next PT/INR date communicated as noted by Pharmacist: Yes ARMANDO Munguia 01/08/2024, 1:18 PM * Alyson Salinas RPh - 01/08/2024 12:39 PM EDT Coumadin Clinic (region specific) Objective Current Warfarin Dose As of 01/08/2024 Warfarin maintenance plan: 5 mg (1 mg x 5) every Fri; 7.5 mg (1 mg x 7.5) all other days INR Result As of 01/08/2024 INR goal: 2.0-3.0 INR used for dosin.4 (01/08/2024) Assessment & Plan Warfarin Plan As of 01/08/2024 Full warfarin instructions: 5 mg every Fri; 7.5 mg all other days No change documented: Alyson Salinas RPh Next INR check: 01/17/2024 Repeat PT/INR in 1.5 week(s) Weekly dose: not changed Additional Dosing Information: Description Call patient while at [facility] AND fax Facility at [phone] pt started multivitamin around beginning october Tech to contact patient with dose instructions as noted. Alyson Salinas RPh 01/08/2024, 12:39 PM documented in this encounter Plan of Treatment Upcoming Encounters Date Type Department Care Team (Late st Contact Info) Description 01/17/2024 5:45 PM EDT Anticoagulation Pharmacy Call Center [address] [facility] [place] [address] [facility] [address] [facility] [place] [address] 01/18/2024 1:30 PM EDT Office Visit Radiation Oncology, [facility] [address] [place] [address] Shelly Rashid MD [address] [place] [address] 01/24/2024 9:00 AM EDT Office Visit Otolaryngology/Head & Neck/Facial Plastic Surgery [address] [place] [address] Monik Edge CRNP [address] [place] [address] 02/13/2024 9:20 AM EDT Office Visit [place] [address] [place] [address] Jad Boone MD [facility] [address] [place] [address] 02/16/2024 10:45 AM EDT Office Visit Otolaryngology/Head & Neck/Facial Plastic Surgery [address] [place] [address] Gurvinder Garcia MD [address] [place] [address] 06/06/2024 9:30 AM EDT Office [address] [address] Yas Mckinnon CRNP [address] [place] [address] Health Maintenance Due Date Last Done Comments [...] this encounter Medical Devices Implanted Type Area Service Worker Helper Device Identifier Shelf Expiration Date Model / Serial / Lot Connector Nerve 2mm 15mm - [id number] Implanted:Qty: 1 on 04/27/2023 by Dudley Hinojosa MD at [facility] Left: Face [employer] [id number] 12/24/2024 [id number] / / [id number] Alloderm 4x7 Thin 0.8-1.2 (28 Units) - [id number] - [id number] Implanted:Qty: 28 on 04/27/2023 by Dudley Hinojosa MD [place] [facility] [place]: Face ABBVIE 12/18/2024 [id number] / [id number] / [id number] Sheeting Monisha 2x3in X.020in - [id number] Implanted:Qty: 1 on 04/27/2023 by Dudley Hinojosa MD [place] [facility] Left: Ear [employer] 09/25/2024- / / [id number] Sheeting Monisha 2x3 In X.005in - [id number] Implanted:Qty: 1 on 12/12/2023 by Gurvinder Garcia MD [place] [facility] Left: Ear [employer] 04/05/2026- / [id number] documented as of this encounter Visit Diagnoses Diagnosis PAF (paroxysmal atrial fibrillation) (HCC)- Primary Atrial fibrillation documented in this encounter Advance Directives Documents on File Type Date Recorded Patient Billing Rep Expl anation POLST 04/26/2023 [place] OR [facility] FOR LIFE-SUSTAINING TREATMENT * Full [...] Healthcare Agent [facility] Hospital[facility] Communication Brody Thomasn Adult Child Power of Hide Inspector Care Teams Lugger Relationship Specialty Start Date End Date Jad Boone MD [address] [place] [address] [place] [address] PCP - General Family Medicine 09/20/23 documented as of this encounter
--- OUTSIDE RECORDS SUMMARY | 2024-04-25 23:54 | External Medical Summary ---
Author Name Unknown Address Unknown Organization K1F:[facility] - [address] [place] [address] Laboratory Report Ordering Provider Test Date Status CHERI CARTER 01/01/2024 04:28:00 Final Warfarin Therapy
INR: 2 .0-3.0 conventional anticoagulation
INR: 2.5- 3.5 high intensity anticoagulation Observation Date Value Abnormality Reference (Units ) Status PT 01/01/2024 04:28:00 34.6 Above high normal 11 .6-15.2 (seconds) Final INR 01/01/2024 04:28:00 3.4 Above high normal 0. 8-1.2 Final Performing Location [facility] [address] [place] [address]
--- OUTSIDE RECORDS SUMMARY | 2024-04-25 23:54 | External Medical Summary | Summary of Care ---
Author Name Unknown Organization [facility] Address [address] [place] [address] Phone [phone] Care Team Providers Care Manager Bank Name Role Phone Jad Boone MD Primary Care Provider Encounter Details Date Type Department Care Team (Late st Contact Info) Description 01/03/[address] [place] [address] [phone] Jad Boone MD [facility]2 [facility] [address] [place] [address] Allergies Active Allergy Reactions Criticality Noted Date Comments Bee Venom Hives High 03/14/2017 documented as of this encounter (statuses as of 01/03/2024) Medications Medication Sig Dispensed Refills Start Date End Date Status Omeprazole 20 MG Oral Capsule Delayed Release (PriLOSEC) Take 1 Capsule by mouth in the morning. 90 Capsule 1 11/15/2022 Active Vitamin D3 1.25 MG (10842 UT) Oral Capsule Take 1 Capsule by mouth once a week. 12 Capsule 3 01/30/2023 Active Additional Information Patient taking differently:50,000 Units Oral QWEEK,Every Monday, Reported on 05/18/2023 Atorvastatin Calcium 20 MG Oral Tablet (Lipitor)Indicatio ns:Coronary artery disease involving [place] coronary artery of [place] heart without angina pectoris TAKE 1 TABLET, [...] failure) ([facility]) Take 2 Tablets by mouth [...] before bedtime. 103.317 mL 0 12/22/2023 Active oxyCODONE HCl 5 MG Oral [...] all other days and as directed by [facility] Pharm[facility] 135 Tablet 1 01/02/2024 Active Cephalexin 500 MG Oral Capsule Take 1 Capsule by mouth in the morning and 1 Capsule before bedtime. 14 Capsule 0 01/02/2024 Active amLODIPine Besylate 2.5 MG Oral Tablet (Norvasc) Take 1 Tablet by mouth in the morning. 30 Tablet 0 01/03/2024 Active documented as of this encounter [...] fibrillation) 10/18/2018 Coronary artery disease invo lving [place] coronary artery without angina pectoris 01/07/2015 penitentiary current use of anticoagulant therapy 0 05/01/2014 [...] mRNA, LNP-s, No Pre serve, 2-Dose Series ([facility]) 11/26/2020,11/05/2020 Pneumococcal Conjugate Vacc, 13 Valent (Prevnar) [...] No 04/26/2023 documented as of this encounter Plan of Treatment Upcoming Encounters Date Type Department Care Team (Late st Contact Info) Description 01/08/2024 5:45 PM EDT Anticoagulation Pharmacy Call Center [address] [place] [address] Ccps, [facility] [address] [place] [address] 01/18/2024 1:30 PM EDT Office Visit Radiation Oncology, [facility] [address] [place] [address] Shelly Rashid MD [address] [place] [address] 01/24/2024 9:00 AM EDT Office Visit Otolaryngology/Head & Neck/Facial Plastic Surgery [address] [place] [address] Monik Edge CRNP [address] [place] [address] 02/13/2024 9:20 AM EDT Office Visit [place] [address] [place] [address] Jad Boone MD [facility]2 [facility] [address] [place] [address] 02/16/2024 10:45 AM EDT Office Visit Otolaryngology/Head & Neck/Facial Plastic Surgery [address] [place] [address] Gurvinder Garcia MD [address] [place] [address] 06/06/2024 9:30 AM EDT Office Visit Cardiology, [place] [address] [place] [address] Yas Mckinnon CRNP [address] [place] [address] Scheduled Orders Name Type Priority Associated Diagnoses Orde r Schedule TSH Lab Routine Abnormal TSH Expected: 01/03/2024 (Approximate), Expires: 01/02/2025 T4, FREE Lab Routine Abnormal TSH Expected: 01/03/2024 (Approximate), Expires: 01/02/2025 Health Maintenance Due Date Last Done Comments [...] this encounter Medical Devices Implanted Type Area Boarder Steam Device Identifier Shelf Expiration Date Model / Serial / Lot Connector Nerve 2mm 15mm - [id number] Implanted:Qty: 1 on 04/27/2023 by Dudley Hinojosa MD [place] [facility] Left: Face [employer] [id number] 12/24/2024 [id number] / / [id number] Alloderm 4x7 Thin 0.8-1.2 (28 Units) - [id number] - [id number] Implanted:Qty: 28 on 04/27/2023 by Dudley Hinojosa MD at [place] [facility] Left: Face ABBVIE 12/18/2024 [id number] / [id number] / [id number] Sheeting Monisha 2x3in X.020in - [id number] Implanted:Qty: 1 on 04/27/2023 by Dudley Hinojosa MD at [place] [facility] Left: Ear [employer] 09/25/2024 23-700-20 / / [id number] Sheeting Monisha 2x3 In X.005in - [id number] Implanted:Qty: 1 on 12/12/2023 by Gurvinder Garcia MD at [place] [facility] Left: Ear [employer]IED [employer] 04/05/2026-700-05 / / [id number] documented as of this encounter Visit Diagnoses Diagnosis Abnormal TSH- Primary Other abnormal clinical finding documented in this encounter Advance Directives Documents on File Type Date Recorded Patient Chimney Sweeper Expl anatmaynor POL 04/26/2023 [place] OR [facility] FOR LIFE-SUSTAINING TREATMENT Latest Code Status [...] Agents on File Name Relationship Healthcare Agent [facility] Communication [facility] Adult Child Power of City [place] Care Teams Manager Bank Relationship Specialty Start Date End Date Jad Boone MD [address] [place] [address] [place] [address] PCP - General Family Medicine 09/20/23 documented as of this encounter
--- OUTSIDE RECORDS SUMMARY | 2024-04-25 23:54 | External Medical Summary | Summary of Care ---
Author Name Unknown Organization [facility] Address [address] [place] [address] Phone [phone] Care Team Providers Care Sales Consultant Name Role Phone Jad Boone MD Primary Care Provider Reason for Visit * Reason Comments Dosage Adjustment Via Phone (anticoag Cl inic) Encounter Details Date Type Department Care Team (Latest Contact Info) Description 01/08/2024 5:45 PM EDT Anticoagulation Pharmacy Call Center [address] [place] [address] [facility] [address] [place] [address] PAF (paroxysmal atrial fibrillation) ([facility])* Allergies Active Allergy Reactions Criticality Noted Date Comments Bee Venom Hives High 03/14/2017 documented as of this encounter (statuses as of 01/08/2024) Medications Medication Sig Dispensed Refills Start Date End Date Status Omeprazole 20 MG Oral Capsule Delayed Release (PriLOSEC) Take 1 Capsule by mouth in the morning. 90 Capsule 1 11/15/2022 Active Vitamin D3 1.25 MG (60383 UT) Oral Capsule Take 1 Capsule by mouth once a week. 12 Capsule 3 01/30/2023 Active Additional Information Patient taking differently:50,000 Units Oral QWEEK,Every Monday, Reported on 05/18/2023 Atorvastatin Calcium 20 MG Oral Tablet (Lipitor)Indicatio ns:Coronary artery disease involving wrangell coronary artery of wrangell heart without angina pectoris TAKE 1 TABLET, BY MOUTH, IN THE MORNING. 90 Tablet 1 03/04/2023 Active Acetaminophen 325 MG Oral Tablet (Tylenol) Take 2 Tablets by mouth every 6 hours as needed for Pain, Mild. 30 Tablet 04/03/2023 Active Multivitamin Adult Oral Tablet Take by mouth every evening. Active Furosemide 20 MG Oral Tablet (Lasix)Indications :Chronic diastolic CHF (congestive heart failure) ([facility]) Take 2 Tablets by mouth in the morning. 180 Tablet 1 08/15/2023 Active Metoprolol Succinate ER 25 MG Oral Tablet Extended Release 24 Hour (Toprol XL)Indications:Chr onic diastolic CHF (congestive heart failure) ([facility]) Take 1 Tablet by mouth [...] heart failure with preserved ejection fraction (HFpEF) ([facility]) Take 1 Tablet by mouth [...] Oral Tablet (Coumadin)Indicati ons:PAF (paroxysmal atrial fibrillation) ([facility]) Take 1 Tablet by mouth every evening. 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 of anticoagulant therapy 0 [...] this encounter Progress Notes * Domonique Bonilla manager cardiac cath - 01/08/2024 3:56 PM EDT Contacts Type Contact Phone/Fax 01/08/2024 01:16 PM EDT Phone (Outgoing) Stephen Varela (Self) [phone] (M) Left Message Subjective Patient Findings Negatives: [...] as noted by Pharmacist: Yes ARMANDO Rascon Tech 01/08/2024, 3:56 PM * Samuel Joseph manager cardiac cath - 01/08/2024 1:18 PM EDT Contacts Type Contact Phone/Fax 01/08/2024 01:16 PM EDT Phone (Outgoing) Stephen Varela (Self) [phone] (M) Left Message Subjective PT/INR results, Coumadin dose instructions, and next PT/INR date communicated as noted by Pharmacist: Yes Samuel Joseph manager cardiac cath 01/08/2024, 1:18 PM * Alyson Salinas [facility] - 01/08/2024 12:39 PM EDT Coumadin Clinic [...] Dosing Information: Description Call patient while at [facility] AND fax Facility at [phone] pt started multivitamin around beginning october Tech to contact patient with dose instructions as noted. Alyson Salinas RPh 01/08/2024, 12:39 PM documented in this encounter Plan of Treatment Upcoming Encounters Date Type Department Care Team (Late st Contact Info) Description 01/17/2024 5:45 PM EDT Anticoagulation Pharmacy Call Center [address] [place] [address] [facility] [address] [place] [address] 01/18/2024 1:30 PM EDT Office Visit Radiation Oncology, [facility] [address] [place], [place] [phone] [facility] [address] [facility] [address] 01/24/2024 9:00 AM EDT Office Visit Otolaryngology/Head & Neck/Facial Plastic Surgery [address] [place], [place] [phone] Monik Edge CRNP [address] [place] [address] 02/13/2024 9:20 AM EDT Office Visit [facility] [place] [address] [place] [address] Jad Boone MD [address] [place] [address] 02/16/2024 10:45 AM EDT Office Visit Otolaryngology/Head & Neck/Facial Plastic Surgery [address] [place] [address] Gurvinder Garcia MD [address] [place] [address] 06/06/2024 9:30 AM EDT Office Visit Cardiology, [place] [address] [place] [address] Yas Mckinonn CRNP [address] [place] [address] Health Maintenance Due Date Last Done Comments [...] this encounter Medical Devices Implanted Type Area Powderman Device Identifier Shelf Expiration Date Model / Serial / Lot Connector Nerve 2mm 15mm - [id number] Implanted:Qty: 1 on 04/27/2023 by Dudley Hinojosa MD [place] [facility] [place] Left: Face [employer] [id number] 12/24/2024 [id number] / / [id number] Alloderm 4x7 Thin 0.8-1.2 (28 Units) - [id number] - [id number] Implanted:Qty: 28 on 04/27/2023 by Dudley Hinojosa MD at [place] [facility] [place] Left: Face ABBVIE 12/18/2024 [id number] / [id number] / [id number] Sheeting Monisha 2x3in X.020in - [id number] Implanted:Qty: 1 on 04/27/2023 by Dudley Hinojosa MD at [place] [facility] [place] Left: Ear [employer] 09/25/2024- / / [id number] Sheeting Monisha 2x3 In X.005in - [id number] Implanted:Qty: 1 on 12/12/2023 by Gurvinder Garcia MD at [place] [facility] [place]: Ear [employer] 04/05/2026- / / [id number] documented as of this encounter Visit Diagnoses Diagnosis PAF (paroxysmal atrial fibrillation) (HCC)- Primary Atrial fibrillation documented in this encounter Advance Directives Documents on File Type Date Recorded Patient Manager Discovery Expl anation POLST 04/26/2023 [place] [facility] FOR LIFE-SUSTAINING TREATMENT * [...] Agents on File Name Relationship Healthcare Agent [facility] Communication [facility] Adult Child Power of Project Management Professor Care Teams Sales Consultant Relationship Specialty Start Date End Date Jad Boone MD [address] [facility] [address] [place] [address] PCP - General Family Medicine 09/20/23 documented as of this encounter
--- OUTSIDE RECORDS SUMMARY | 2024-04-25 23:54 | External Medical Summary ---
Author Name Unknown Address Unknown Organization K1F:[facility]ATORY [facility] - [address] [place] [address] Laboratory Report Ordering Provider Test Date Status CHERI CARTER 01/08/2024 06:55:00 Final Warfarin Therapy
INR: 2 .0-3.0 conventional anticoagulation
INR: 2.5- 3.5 high intensity anticoagulation Observation Date Value Abnormality Reference (Units ) Status PT 01/08/2024 06:55:00 26.0 Above high normal 11 .6-15.2 (seconds) Final INR 01/08/2024 06:55:00 2.4 Above high normal 0. 8-1.2 Final Performing Location [facility] - [address] [address]
--- OUTSIDE RECORDS SUMMARY | 2024-04-25 23:54 | External Medical Summary ---
Author Name Unknown Address Unknown Organization K1F:[facility] - [address] [address] Laboratory Report Ordering Provider Test Date Status CHERI CARTER 12/27/2023 04:38:00 Final Warfarin Therapy
INR: 2 .0-3.0 conventional anticoagulation
INR: 2.5- 3.5 high intensity anticoagulation Observation Date Value Abnormality Reference (Units ) Status PT 12/27/2023 04:38:00 30.0 Above high normal 11 .6-15.2 (seconds) Final INR 12/27/2023 04:38:00 2.8 Above high normal 0. 8-1.2 Final Performing Location LABORATORY [facility] - [address] [address]
--- OUTSIDE RECORDS SUMMARY | 2024-04-25 23:54 | External Medical Summary | Summary of Care ---
Author Name Unknown Organization [facility] Address [address] [place] [address] Phone [phone] Care Team Providers Care Corn Shucker Name Role Phone Jad Boone MD Primary Care Provider Reason for Visit * Reason Comments Follow Up Encounter Details Date Type Department Care Team (Late st Contact Info) Description 01/01/2024 11:00 AM EDT Office Visit Otolaryngology/Head & Neck/Facial Plastic Surgery [address] [place], [place] [id number] Dudley Hinojosa MD [address] [place] [address] History of squamous cell carcinoma* Allergies Active Allergy Reactions Criticality Noted Date Comments Bee Venom Hives High 03/14/2017 documented as of this encounter (statuses as of 01/01/2024) Medications Medication Sig Dispensed Refills Start Date End Date Status Omeprazole 20 MG Oral Capsule Delayed Release (PriLOSEC) Take 1 Capsule by mouth in the morning. 90 Capsule 1 11/15/2022 Active Vitamin D3 1.25 MG (98619 UT) Oral Capsule Take 1 Capsule by mouth once a week. 12 Capsule 3 01/30/2023 Active Additional Information Patient taking differently:50,000 Units Oral QWEEK,Every Monday, Reported on 05/18/2023 Atorvastatin Calcium 20 MG Oral Tablet (Lipitor)Indicati ons:Coronary artery disease involving otoe-missouria coronary artery of otoe-[place]ou[place] heart without angina pectoris TAKE 1 TABLET, BY MOUTH, IN THE MORNING. 90 Tablet 1 03/04/2023 Active Acetaminophen 325 MG Oral Tablet (Tylenol) Take 2 Tablets by mouth every 6 hours as needed for Pain, Mild. 30 Tablet 0 04/03/2023 Active Multivitamin Adult Oral Tablet Take by mouth every evening. 0 Active Furosemide 20 MG Oral Tablet (Lasix)Indication s:Chronic diastolic CHF (congestive heart failure) ([facility]) Take 2 Tablets by mouth in the morning. 180 Tablet 1 08/15/2023 Active Metoprolol Succinate ER 25 MG Oral Tablet Extended Release 24 Hour (Toprol XL)Indications:Ch ronic diastolic CHF (congestive heart failure) ([facility]) Take 1 Tablet by mouth in the morning. 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 09/28: 10 mg; Otherwise 5 mg every Mon, Wed, Mon; 7.5 mg all other days and as directed by [facility] Pharmacy 100 Tablet 1 10/04/2023 Active Ventolin HFA 108 (90 Base) MCG/ACT Inhalation Aerosol Solution Inhale 2 Puffs by mouth every 4 hours as needed for Shortness of Breath. 0 Active Lisinopril 10 MG Oral Tablet (Prinivil)Indicat ions:Chronic heart failure with preserved ejection fraction (HFpEF) ([facility]) Take 1 Tablet by mouth in the morning. 90 Tablet 3 11/10/2023 Active Bacitracin Zinc 500 UNIT/GM External Ointment Apply topically to affected area 2 times a day. Apply to left ear/neck suture/staple lines and bolsters twice per day. Please keep the bolsters moist. 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 103.317 mL 0 12/22/2023 Active Cephalexin 500 MG Oral Capsule Take 1 Capsule by mouth in the morning and 1 Capsule before bedtime. Do all this for 7 days. 14 Capsule 0 01/01/2024 01/08/2024 Active documented as of this encounter (statuses [...] fibrillation) 10/18/2018 Coronary artery disease invo lving otoe-missouria coronary artery without angina pectoris 01/07/2015 intermediate [...] mRNA, LNP-s, No Pre serve, 2-Dose Series ([employer]) 11/26/2020,11/05/2020 Pneumococcal Conjugate Vacc, 13 Valent (Prevnar) [...] Sign Reading Time Taken Comments Blood Pressure - - Pulse - - Temperature 35.8 C (96.4 F) 01/01/2024 12:01 PM E DT Respiratory Rate - - Oxygen Saturation - - Inhaled Oxygen Concentration - - Weight - [...] as of this encounter Progress Notes * Dudley Hinojosa MD - 01/01/2024 1:16 PM EDT Images from the original note were not included. Otolaryngology - Head & Neck Surgery Visit Date: 01/01/24 Chief Complaint: Left preauricular SCC, stage pT2 [...] withDr. Garcia. Interval: Patient presents today for follow up. Recently underwent reconstruction as described above. He is doing well overall. No immediate concerns. Initial HPI: Stephen Varela is a 77 year old male who presents for evaluation of the above. He was initially evaluated while inpatient for a mechanical fall. He feels the mass has been present for at least one month, possible longer. He has a history of left facial skin cancer treated by local excision 3 years ago in [place]. Denies facial weakness. 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 Patient was reviewed at multidisciplinary H&N tumor board with recommendation for surgical resection. Past Medical History: Reviewed. Past Surgical History: Reviewed. Family History: Reviewed. Medications and Allergies: Reviewed. Patient Active Problem List Diagnosis Code Heart failure, systolic, due to CAD ([facility]) I50.20, I25.10 custodial current use of anticoagulant therapy Z79.01 Coronary artery disease involving otoe-missouria coronary artery without angina pectoris I25.10 PAF (paroxysmal atrial fibrillation) ([facility]) I48.0 Mild intermittent asthma without complication J45.20 Other specified peripheral vascular diseases ([facility]) I73.89 Chronic diastolic CHF (congestive heart failure) ([facility]) I50.32 Essential hypertension with goal blood pressure less than 140/90 I10 Dyslipidemia, goal LDL below 70 E78.5 Atypical migraine G43.009 Other specified anemias D64.89 Suspected sleep apnea R29.818 Mass of left parotid gland K11.8 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 Temp 35.8 C (96.4 F) (Infrared ) Physical Examination: General: Alert, no acute distress. Well developed. Normal mood and affect. Head: Normocephalic, atraumatic. No scalp lesions or masses. Face: Left preauricular reconstruction with submental island flap. Partial auriculectomy. S/p reconstruction of temporal scalp with skin grafted temporalis and postauricular cervicofacial advancementflap. [place] and sutures removed. Healing appropriately. Forehead weakness. The remaining branchesof the facial nerve are intact, including full eye closure. Eyes: EOMI. Pupils equal. Normal conjunctivae and lids. Ear: Left ear canal s/p meatoplasty/canalplasty nd skin grafting. Healing appropriately. Larynx: Normal voice, no hoarseness. Neck: Well [...] canalplasty, and skin grafting withDr. Garcia. - No evidence of disease on exam today. - Healing appropriately s/p recent reconstruction. - Keflex prophylaxis x 1 week. Aquaphor to incision lines. - Continue otologic drops for 2 weeks, follow up as scheduled with Dr. Garcia. - Follow up 1 month for assessment of surgical healing. - Annual TSH and chest imaging. - Supportive care for expected treatment toxicities. - Continue follow up with radiation oncology. - Asked patient to call back with any red flag signs or symptoms including hemoptysis, neck mass, new or worsening pain, difficulty breathing, weight loss, or other constitutional symptoms. All questions were answered. Patient is requesting we work with Bibiana Robles to arrange appointments. [place] - [phone], Ext [phone] Dudley Hinojosa MD Department of Otolaryngology-Head and Neck Surgery Head and Neck Surgical Oncology Microvascular Reconstructive Surgery Transoral Robotic Surgery documented in this encounter Plan of Treatment Upcoming Encounters Date Type Department Care Team (Late st Contact Info) Description 01/01/2024 5:45 PM EDT Anticoagulation Pharmacy Call Center [address] [facility] [place] [address] [facility] [address] [facility] [place] [address] PAF (paroxysmal atrial fibrillation) ([facility])* 01/02/2024 10:40 AM EDT Office Visit [place] [address] [place] [address] Jad Boone MD [facility] [address] [place] [address] 01/08/2024 5:45 PM EDT Anticoagulation Pharmacy Call Center [address] [place] [address] [facility] [address] [place] [address] 01/18/2024 1:30 PM EDT Office Visit Radiation Oncology, [facility] [address] [place] [address] Shelly Rashid MD [address] [place] [address] 02/13/2024 9:20 AM EDT Office Visit [place] [address] [place] [address] Jad Boone MD [facility] [address] [place] [address] 02/16/2024 10:45 AM EDT Office Visit Otolaryngology/Head & Neck/Facial Plastic Surgery [address] [place] [address] Gurvinder Garcia MD [address] [place] [address] 06/06/2024 9:30 AM EDT Office Visit Cardiology, [place] [address] [place] [address] Yas Mckinnon CRNP [address] [place] [address] Health Maintenance Due Date Last Done Comments Albumin/Creatinine Ratio 1963 Hepatitis C Screening 1963 Zoster Vaccines (2 of 3) 06/26/2014 05/01/2014 *SPIROMETRY ONCE FOR ASTHMA-ADULT 07/14/2022 COVID-19 Vaccine (2022- season) 2023 06/01/2023, 06/09/2022, 12/31/2021, Additional history [...] this encounter Medical Devices Implanted Type Area Blow Mold Machine Operator Device Identifier Shelf Expiration Date Model / Serial / Lot Connector Nerve 2mm 15mm - [id number] Implanted:Qty: 1 on 04/27/2023 by Dudley Hinojosa MD at OR [facility] [place] Left: Face [employer] [id number] 12/24/2024 [id number] / / [id number] Alloderm 4x7 Thin 0.8-1.2 (28 Units) - [id number] - [id number] Implanted:Qty: 28 on 04/27/2023 by Dudley Hinojosa MD at OR [facility] [place] Left: Face ABBVIE 12/18/2024 [id number] / [id number] / [id number] Sheeting Monisha 2x3in X.020in - [id number] Implanted:Qty: 1 on 04/27/2023 by Dudley Hinojosa MD at OR [facility] [place] Left: Ear [employer] 09/25/2024- / [id number] Sheeting Monisha 2x3 In X.005in - [id number] Implanted:Qty: 1 on 12/12/2023 by Gurvinder Garcia MD at OR [facility] [place] Left: Ear [employer] 04/05/2026- / [id number] documented as of this encounter Visit Diagnoses Diagnosis History of squamous cell carcinoma- Primary Personal history of malignant neoplasm of other site PAF (paroxysmal atrial fibrillation) (HCC)- Primary Atrial fibrillation documented in this encounter Advance Directives Documents on File Type Date Recorded Patient Feeder Loader Expl anation POLST 04/26/2023 [place] [facility] FOR LIFE-SUSTAINING TREATMENT Latest Code Status on [...] Communication Brody Avery Adult Child Power of Emergency Worker Care Teams Corn Shucker Relationship Specialty Start Date End Date Jad Boone MD [address] [place] [address] [place] [address] PCP - General Family Medicine 09/20/23 documented as of this encounter
--- OUTSIDE RECORDS SUMMARY | 2024-04-25 23:54 | External Medical Summary | Summary of Care ---
Author Name Unknown Organization [facility] Address [address] [place] [address] Phone [phone] Care Team Providers Care Case Management Assistant Name Role Phone Jad Boone MD Primary Care Provider Reason for Visit * Reason Onset Date Comments Information 01/08/2024 Encounter Details Date Type Department Care Team (Late st Contact Info) Description 01/08/[address] [place] [address] [phone] Jad Boone MD [facility]2 [facility] [address] [place] [address] Information Allergies Active Allergy Reactions Criticality Noted Date Comments Bee Venom Hives High 03/14/2017 documented as of this encounter (statuses as of 01/08/2024) Medications Medication Sig Dispensed Refills Start Date End Date Status Omeprazole 20 MG Oral Capsule Delayed Release (PriLOSEC) Take 1 Capsule by mouth in the morning. 90 Capsule 1 11/15/2022 Active Vitamin D3 1.25 MG (00992 UT) Oral Capsule Take 1 Capsule by mouth once a week. 12 Capsule 3 01/30/2023 Active Additional Information Patient taking differently:50,000 Units Oral QWEEK,Every Monday, Reported on 05/18/2023 Atorvastatin Calcium 20 MG Oral Tablet (Lipitor)Indicatio ns:Coronary artery disease involving [place] coronary artery of [place] heart without angina pectoris TAKE 1 TABLET, [...] diastolic CHF (congestive heart failure) ([facility]) Take 2 Tablets by mouth in the morning. 180 Tablet 1 08/15/2023 Active Metoprolol Succinate ER 25 MG Oral Tablet Extended Release 24 Hour (Toprol XL)Indications:Chr onic diastolic CHF (congestive heart failure) ([facility]) Take 1 Tablet by mouth in [...] with preserved ejection fraction (HFpEF) ([facility]) Take 1 Tablet by mouth in [...] (Coumadin)Indicati ons:PAF (paroxysmal atrial fibrillation) ([facility]) Take 1 Tablet by mouth every evening. 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 Thank you, Mira Welsh CPhT Producer II [facility] ([facility]) (Formerly Telepharmacy) 01/08/2024,1:51 PM documented in this encounter Plan of Treatment Upcoming Encounters Date Type Department Care Team (Late st Contact Info) Description 01/08/2024 5:45 PM EDT Anticoagulation Pharmacy Call Center [address] [address] [facility] [address] [place] [address] PAF (paroxysmal atrial fibrillation) ([facility])* 01/17/2024 5:45 PM EDT Anticoagulation Pharmacy Call Center [address] [address] [facility] [address] [place] [address] 01/18/2024 1:30 PM EDT Office Visit Radiation Oncology, [facility] [address] [place] [address] [facility] [address] 01/24/2024 9:00 AM EDT Office Visit Otolaryngology/Head & Neck/Facial Plastic Surgery [address] [place] [address] Monik Edge CRNP [address] [place] [address] 02/13/2024 9:20 AM EDT Office Visit [facility] [address] [place] [address] Jad Boone MD [facility] [place] [address] 02/16/2024 10:45 AM EDT Office Visit Otolaryngology/Head & Neck/Facial Plastic Surgery [address] [place] [address] Gurvinder Garcia MD [address] [place] [address] 06/06/2024 9:30 AM EDT Office Visit Cardiology, [place] [address] [place] [address] Yas Mckinnon CRNP [address] [place] [address] Health Maintenance Due Date Last Done Comments [...] this encounter Medical Devices Implanted Type Area Family Coach Device Identifier Shelf Expiration Date Model / Serial / Lot Connector Nerve 2mm 15mm - [id number] Implanted:Qty: 1 on 04/27/2023 by Dudley Hinojosa MD at OR [facility] Left: Face [employer] [id number] 12/24/2024 [id number] / / [id number] Alloderm 4x7 Thin 0.8-1.2 (28 Units) - [id number] - [id number] Implanted:Qty: 28 on 04/27/2023 by Dudley Hinojosa MD at OR [facility] Left: Face ABBVIE 12/18/2024 [id number] / [id number] / [id number] Sheeting Monisha 2x3in X.020in - [id number] Implanted:Qty: 1 on 04/27/2023 by Dudley Hinojosa MD at OR [facility] Left: Ear [employer]IED [employer] 09/25/2024- / [id number] Sheeting Monisha 2x3 In X.005in - [id number] Implanted:Qty: 1 on 12/12/2023 by Gurvinder Garcia MD at OR [facility] Left: Ear [employer]IED [employer] 04/05/2026 / [id number] documented as of this encounter Advance Directives Documents on File Type Date Recorded Patient Audio Visual Director Expl anation POLST 04/26/2023 [place] [facility] FOR [facility]-SUSTAINING TREATMENT [...] 1:46 PM 04/02/2022 7:51 PM This order r eflects the patients wishes and were consensually agreed upon. Question Answer Comments Discussion of Advance Directives occurred with: Patient Healthcare Agents on File Name Relationship Healthcare Agent [facility] Adult Child Power of Internal Sales Engineer Care Teams Case Management Assistant Relationship Specialty Start Date End Date Jad Boone MD [address] [address] [place] [address] PCP - General Family Medicine 09/20/23 documented as of this encounter
--- OUTSIDE RECORDS SUMMARY | 2024-04-25 23:55 | External Medical Summary | Summary of Care ---
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 90 Capsule 1 11/15/2022 Active Vitamin D3 1.25 MG (94247 UT) Oral Capsule Take 1 Capsule by mouth once a week. 12 Capsule 3 01/30/2023 Active Additional Information Patient taking differently:50,000 Units Oral QWEEK,Every Monday, Reported on 05/18/2023 Atorvastatin Calcium 20 MG Oral Tablet (Lipitor)Indicat ions:Coronary artery disease involving [place] coronary artery of [place] heart without angina pectoris TAKE 1 TABLET, BY MOUTH, IN THE MORNING. 90 Tablet 1 03/04/2023 Active Acetaminophen 325 MG Oral Tablet (Tylenol) Take 2 Tablets by mouth every 6 hours as needed for Pain, Mild. 30 Tablet 0 04/03/2023 Active Multivitamin Adult Oral Tablet Take by mouth every evening. 0 Active Furosemide 20 MG Oral Tablet (Lasix)Indicatio ns:Chronic diastolic CHF (congestive heart failure) ([facility]) Take 2 Tablets by mouth in the morning. 180 Tablet 1 08/15/2023 Active Metoprolol Succinate ER 25 MG Oral Tablet Extended Release 24 Hour (Toprol XL)Indications:C hronic diastolic CHF (congestive heart failure) ([facility]) Take 1 Tablet by mouth in [...] Oral Tablet (Coumadin)Indica tions:PAF (paroxysmal atrial fibrillation) ([facility]) Take 1 Tablet by mouth every evening. 09/28: 10 mg; Otherwise 5 mg every Mon, Mon, Mon; 7.5 mg all other days and as directed by [facility] 100 Tablet 1 10/04/2023 Active guaiFENesin 400 MG Oral TabletIndication s:Sinus congestion Take 1 Tablet by mouth every 4 hours as needed (cough or sinus drainage). 100 Tablet 0 10/04/2023 Active Additional Information Patient not taking.Reported on 12/22/2023 Ventolin HFA 108 (90 Base) MCG/ACT Inhalation Aerosol Solution Inhale 2 Puffs by mouth every 4 hours as needed for Shortness of Breath. 0 Active Lisinopril 10 MG Oral Tablet (Prinivil)Indica tions:Chronic heart failure with preserved ejection fraction (HFpEF) ([facility]) Take 1 Tablet by mouth in the morning. 90 Tablet 3 11/10/2023 Active Bacitracin Zinc 500 UNIT/GM External Ointment Apply topically to affected area 2 times a day. Apply to left ear/neck suture/staple lines and bolsters twice per day. Please keep the bolsters moist. 113.6 g 0 12/12/2023 Active Ciprofloxacin HCl 500 MG Oral Tablet (Cipro) Take 1 Tablet by mouth in the morning and 1 Tablet before bedtime. Do all this for 10 days. Do not start before December 14, 2023. 20 Tablet 0 12/14/2023 Active oxyCODONE HCl 5 MG Oral Tablet (Oxy IR) Take 1 Tablet by mouth every 8 hours as needed for Pain, Severe or Pain, Moderate. 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 Do all this for 20 days. 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 0 05/01/2014 Overview: ICD-10 update of inactive term Heart failure, systolic, due to CAD 08/28/2012 Overview: ECHO 2011 - Segmental wall abnormality, severe hypokinesis of anterior septum, anterior wall, apex, distal inferior septum, distal inferior wall, and distal posterior wall EF 33% Mass of left parotid gland documented as of this encounter (statuses as of 12/22/2023) Resolved Problems Problem Noted Date Diagnosed Date [...] as of this encounter (statuses as of 12/22/2023) Immunizations Name Administration Dates Next Due COVID-19 [...] Pressure - - Pulse - - Temperature 36.5 C (97.7 F) 12/22/2023 11:03 AM E DT Respiratory Rate - - [...] as of this encounter Progress Notes * Jovany Garcia MD - 12/22/2023 11:56 AM EDT Post Op[ Patient is doing really well Gelfoam from the left ear canal was removed Ear canal is wide open He has minimal gelfoam stuck to the eac I will start him of ofloxacin ear drops documented in this encounter Miscellaneous Notes * Addendum Note - Jovany Garcia MD - 12/22/2023 12:15 PM EDTAddended by: JOVANY GARCIA on: 12/22/2023 12:15 PM Modules accepted: Orders * Addendum Note - Jovany Garcia MD - 12/22/2023 12:12 PM EDTAddended by: JOVANY GARCIA on: 12/22/2023 12:12 PM Modules accepted: Orders documented in this encounter Plan of Treatment Upcoming Encounters Date Type Department Care Team (Late st Contact Info) Description 12/28/2023 7:00 AM EDT [facility] Call Center [address] [facility] [place] [address] [facility] 58 60 [facility] [place] [address] 01/01/2024 11:00 AM EDT Office Visit Otolaryngology/Head & Neck/Facial Plastic Surgery [address] [place] [address] Dudley Hinojosa MD [address] [facility] [place] [address] 01/18/2024 1:30 PM EDT Office Visit Radiation Oncology, [facility] [address] [place] [address] Shelly Rashid MD [address] [facility] [address] 02/13/2024 9:20 AM EDT Office Visit [place] [address] [place] [address] Jad Boone MD [address] [facility] [address] [place] [address] 06/06/2024 9:30 AM EDT Office Visit Cardiology, [place] [address] [place] [address] Yas Mckinnon CRNP [address] [place] [address] Health Maintenance Due Date Last Done Comments Albumin/Creatinine Ratio 1963 Hepatitis C Screening 1963 Zoster Vaccines (2 of 3) 06/26/2014 05/01/2014 *SPIROMETRY ONCE FOR ASTHMA-ADULT 07/14/2022 COVID-19 Vaccine (3 - season) 2023 11/26/2020, 11/05/2020 *NEPHROLOGY REFERRAL DUE [...] encounter Medical Devices Implanted Type Area Manager Community Relations Device Identifier Shelf Expiration Date Model / Serial / Lot Connector Nerve 2mm 15mm - [id number] Implanted:Qty: 1 on 04/27/2023 by Dudley Hinojosa MD at [place] [facility] Left: Face [employer] [id number] 12/24/2024 [id number] / / [id number] Alloderm 4x7 Thin 0.8-1.2 (28 Units) - [id number] - [id number] Implanted:Qty: 28 on 04/27/2023 by Dudley Hinojosa MD at OR [facility] Left: Face ABBVIE 12/18/2024 [id number] / [id number] / [id number] Sheeting Monisha 2x3in X.020in - [id number] Implanted:Qty: 1 on 04/27/2023 by Dudley Hinojosa MD at OR [facility] Left: Ear [employer]IED [employer] 09/25/2024-700- / / [id number] Sheeting Monisha 2x3 In X.005in - [id number] Implanted:Qty: 1 on 12/12/2023 by Jovany Garcia MD at OR [facility] Left: Ear [employer] 04/05/2026- / / [id number] documented as of this encounter Visit Diagnoses Diagnosis 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
--- OUTSIDE RECORDS SUMMARY | 2024-04-25 23:55 | External Medical Summary ---
Author Name Unknown Address Unknown Organization K1F:LABORATORY [facility] - [address] [place] [address] Laboratory Report Ordering Provider Test Date Status SENG GARCIA 12/20/2023 06:38:00 Final Warfarin Therapy
INR: 2 .0-3.0 conventional anticoagulation
INR: 2.5- 3.5 high intensity anticoagulation Observation Date Value Abnormality Reference (Units ) Status PT 12/20/2023 06:38:00 15.3 Above high normal 11 .6-15.2 (seconds) Final INR 12/20/2023 06:38:00 1.2 0.8-1.2 Final Performing Location LABORATORY [facility] - [address] [place] [address]
--- OUTSIDE RECORDS SUMMARY | 2024-04-25 23:55 | External Medical Summary | Summary of Care ---
Author Name Unknown Organization [facility] Address [address] [place] [address] Phone [phone] Care Team Providers Care Retail Client Solutions Analyst Name Role Phone Jad Boone MD Primary Care Provider Reason for Visit * Reason Onset Date Comments Home Health 12/26/2023 Encounter Details Date Type Department Care Team (Late st Contact Info) Description 12/26/[address] [place] [address] [phone] Jad Boone MD [facility] [address] [place] [address] Home Health Allergies Active Allergy Reactions Criticality Noted Date Comments Bee Venom Hives High 03/14/2017 documented as of this encounter (statuses as of 12/26/2023) Medications Medication Sig Dispensed Refills Start Date End Date Status Omeprazole 20 MG Oral Capsule Delayed Release (PriLOSEC) Take 1 Capsule by mouth in the morning. 90 Capsule 1 11/15/2022 Active Vitamin D3 1.25 MG (54528 UT) Oral Capsule Take 1 Capsule by mouth once a week. 12 Capsule 3 01/30/2023 Active Additional Information Patient taking differently:50,000 Units Oral QWEEK,Every Monday, Reported on 05/18/2023 Atorvastatin Calcium 20 MG Oral Tablet (Lipitor)Indicatio ns:Coronary artery disease involving [place] coronary artery of [place] heart without angina pectoris TAKE 1 TABLET, [...] diastolic CHF (congestive heart failure) ([facility]) Take 2 Tablets by mouth in the morning. 180 Tablet 1 08/15/2023 Active Metoprolol Succinate ER 25 MG Oral Tablet Extended Release 24 Hour (Toprol XL)Indications:Chr onic diastolic CHF (congestive heart failure) ([facility]) Take 1 Tablet by mouth in the [...] (Coumadin)Indicati ons:PAF (paroxysmal atrial fibrillation) ([facility]) Take 1 Tablet by mouth every evening. 28: 10 mg; Otherwise 5 mg every Mon, Wed, Mon; 7.5 mg all other days and as directed by [facility] 100 Tablet 1 10/04/2023 Active guaiFENesin 400 MG Oral TabletIndications: Sinus congestion Take 1 Tablet by mouth every [...] with preserved ejection fraction (HFpEF) ([facility]) Take 1 Tablet by mouth in the morning. 90 Tablet 3 11/10/2023 Active Bacitracin Zinc 500 UNIT/GM External Ointment Apply topically to affected area 2 times a day. Apply to left ear/neck suture/staple lines and bolsters twice per day. Please keep the bolsters moist. 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 to: [place], for: Rehabilitation. Time of stay unknown. Referral ordered by: Chucking Lathe Operator. Referral received for: Retirement Planned start of care date: Last Office Visit: 10/04/2023 Has patient been scheduled or seen in the office for a follow up visit: Yes- on 01/02/24 Advised that orders will be signed by Jad Boone MD and to fax to the office for signature. documented in this encounter Plan of Treatment Upcoming Encounters Date Type Department Care Team (Late st Contact Info) Description 12/26/2023 5:45 PM EDT Anticoagulation Pharmacy Call Center [place] [address] [facility] [place] [address] [facility] [address] [facility] [place] [address] PAF (paroxysmal atrial fibrillation) ([facility])* 12/28/2023 7:00 AM EDT Anticoagulation Pharmacy Call Center [place] [address] [facility] [place] [address] [facility] [address] [facility] [place] [address] 01/01/2024 11:00 AM EDT Office Visit Otolaryngology/Head & Neck/Facial Plastic Surgery [address] [place] [address] Dudley Hinojosa MD [facility] [place] [address] 01/02/2024 10:40 AM EDT Office Visit [place] [address] [place] [address] Jad Boone MD [facility] [address] [place] [address] 01/18/2024 1:30 PM EDT Office Visit Radiation Oncology, [facility] [address] [place] [address] Shelly Rashid MD [address] [place] [address] 02/13/2024 9:20 AM EDT Office Visit [address] [address] Jad Boone MD [address] [facility] [address] [place] [address] 02/16/2024 10:45 AM EDT Office Visit Otolaryngology/Head & Neck/Facial Plastic Surgery [address] [place] [address] Gurvinder Garcia MD [address] [place] [address] 06/06/2024 9:30 AM EDT [facility] [address] [place] [address] Yas Mckinnon CRNP 400 [place] [address] Health Maintenance Due Date Last Done Comments [...] this encounter Medical Devices Implanted Type Area Check Airman Device Identifier Shelf Expiration Date Model / Serial / Lot Connector Nerve 2mm 15mm - [id number] Implanted:Qty: 1 on 04/27/2023 by Dudley Hinojosa MD at [place] [facility] Left: Face [employer] [id number] 12/24/2024 [id number] / / [id number] Alloderm 4x7 Thin 0.8-1.2 (28 Units) - [id number] - [id number] Implanted:Qty: 28 on 04/27/2023 by Dudley Hinojosa MD at OR [facility] Left: Face ABBVIE 12/18/2024 [id number] / [id number] / [id number] Sheeting Monisha 2x3in X.020in - [id number] Implanted:Qty: 1 on 04/27/2023 by Dudley Hinojosa MD at OR [facility] Left: Ear [employer]IED [employer] 09/25/2024 / [id number] Sheeting Monisha 2x3 In X.005in - [id number] Implanted:Qty: 1 on 12/12/2023 by Gurvinder Garcia MD at OR [facility] Left: Ear [employer] 04/05/2026 [id number] documented as of this encounter Advance Directives Documents on File Type Date Recorded Patient 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
--- OUTSIDE RECORDS SUMMARY | 2024-04-25 23:55 | External Medical Summary | Summary of Care ---
Author Name Unknown Organization [facility] Address [address] [place] [address] Phone [phone] Care Team Providers Care Carbide Die Maker Name Role Phone Jad Boone MD Primary Care Provider Reason for Visit * Reason Comments Post-Op Encounter Details Date Type Department Care Team (Late st Contact Info) Description 12/22/2023 11:00 AM EDT Office Visit Otolaryngology/Head & Neck/Facial Plastic Surgery [address], [place] [id number] Jovany Garcia MD [address] [place] [address] Acquired stenosis of left external [...] 1 11/15/2022 Active Vitamin D3 1.25 MG (26469 UT) Oral Capsule Take 1 Capsule by mouth once a week. 12 Capsule 3 01/30/2023 Active Additional Information Patient taking differently:50,000 Units Oral QWEEK,Every Monday, Reported on 05/18/2023 Atorvastatin Calcium 20 MG Oral Tablet (Lipitor)Indicat ions:Coronary artery disease involving pechanga coronary artery of pechanga heart without angina pectoris TAKE 1 TABLET, [...] (Lasix)Indicatio ns:Chronic diastolic CHF (congestive heart failure) ([facility]) Take 2 Tablets by mouth in the morning. 180 Tablet 1 08/15/2023 Active Metoprolol Succinate ER 25 MG Oral Tablet Extended Release 24 Hour (Toprol XL)Indications:C hronic diastolic CHF (congestive heart failure) ([facility]) Take 1 Tablet by mouth [...] Oral Tablet (Coumadin)Indica tions:PAF (paroxysmal atrial fibrillation) ([facility]) Take 1 Tablet by mouth every evening. 09/28: 10 mg; Otherwise 5 mg every Mon, Mon, Mon; 7.5 mg all other days and as directed by [facility] 100 Tablet 1 10/04/2023 Active [...] with preserved ejection fraction (HFpEF) ([facility]) Take 1 Tablet by mouth [...] fibrillation) 10/18/2018 Coronary artery disease invo lving pechanga coronary artery without angina pectoris 01/07/2015 parts [...] encounter Miscellaneous Notes * Addendum Note - oJvany Garcia MD - 12/22/2023 12:15 PM EDTAddended by: JOVANY GARCIA on: 12/22/2023 12:15 PM Modules accepted: Orders * Addendum Note - Jovany Garcia MD - 12/22/2023 12:12 PM EDTAddended by: JOVANY GARCIA on: 12/22/2023 12:12 PM Modules accepted: Orders documented in this encounter Plan of Treatment Upcoming Encounters Date Type Department Care Team (Late st Contact Info) Description 12/28/2023 7:00 AM EDT [facility] Call Center [address] [facility] [place] [address] [facility] 58 60 [facility] [place] [address] 01/01/2024 11:00 AM EDT Office Visit Otolaryngology/Head & Neck/Facial Plastic Surgery [address] [place] [address] Dudley Hinojosa MD [address] [facility] [place] [address] 01/18/2024 1:30 PM EDT Office Visit Radiation Oncology, [facility] [address] [place] [address] Shelly [facility]id [facility] [address] [facility] [address] 02/13/2024 9:20 AM EDT Office Visit [place] [address] [place] [address] Jad Boone MD [address] [facility] [address] [place] [address] 06/06/2024 9:30 AM EDT Office Visit Cardiology, [place] [address] [place] [address] Yas Mckinnon CRNP [address] [place] [address] Health Maintenance Due Date Last Done Comments [...] this encounter Medical Devices Implanted Type Area Forest And Conservation Worker Device Identifier Shelf Expiration Date Model / Serial / Lot Connector Nerve 2mm 15mm - [id number] Implanted:Qty: 1 on 04/27/2023 by Dudley Hinojosa MD [place] [facility] [place]: Face [employer] [id number] 12/24/2024 [id number] / / [id number] Alloderm 4x7 Thin 0.8-1.2 (28 Units) - [id number] - [id number] Implanted:Qty: 28 on 04/27/2023 by Dudley Hinojosa MD [place] [facility] [place] Left: Face ABBVIE 12/18/2024 [id number] / [id number] / [id number] Sheeting Monisha 2x3in X.020in - [id number] Implanted:Qty: 1 on 04/27/2023 by Dudley Hinojosa MD at [place] [facility] [place] Left: Ear [employer] 09/25/2024-700- / / [id number] Sheeting Monisha 2x3 In X.005in - [id number] Implanted:Qty: 1 on 12/12/2023 by Jovany Garcia MD at [place] [facility] [place] Left: Ear [employer] 04/05/2026- / / [id number] documented as of this encounter Visit Diagnoses Diagnosis 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- Primary Acquired stenosis of external ear canal unspecified as to cause documented in this encounter Advance Directives Documents on File Type Date Recorded Patient Handbell Choir Director Expl anation POLST 04/26/2023 [place] [facility] DER FOR LIFE-SUSTAINING TREATMENT Latest Code [...] Communication Brody Avery Adult Child Power of Assembled Wood Products Repairer Care Teams Carbide Die Maker Relationship Specialty Start Date End Date Jad Boone MD [address] [facility] [address] [place] [address] PCP - General Family Medicine 09/20/23 documented as of this encounter
--- OUTSIDE RECORDS SUMMARY | 2024-04-25 23:55 | External Medical Summary ---
Author Name Unknown Address Unknown Organization K1F:LABORATORY [facility] - [address] [place] [address] Laboratory Report Ordering Provider Test Date Status SENG GARCIA 12/22/2023 06:38:00 Final Warfarin Therapy
INR: 2 .0-3.0 conventional anticoagulation
INR: 2.5- 3.5 high intensity anticoagulation Observation Date Value Abnormality Reference (Units ) Status PT 12/22/2023 06:38:00 17.1 Above high normal 11 .6-15.2 (seconds) Final INR 12/22/2023 06:38:00 1.4 Above high normal 0. 8-1.2 Final Performing Location LABORATORY [facility] - [address] [address]
--- OUTSIDE RECORDS SUMMARY | 2024-04-25 23:55 | External Medical Summary ---
Author Name Unknown Address Unknown Organization K1F:LABORATORY [facility] - [address] [address] Laboratory Report Ordering Provider Test Date Status SENG GARCIA 12/25/2023 05:49:00 Final Warfarin Therapy
INR: 2 .0-3.0 conventional anticoagulation
INR: 2.5- 3.5 high intensity anticoagulation Observation Date Value Abnormality Reference (Units ) Status PT 12/25/2023 05:49:00 21.3 Above high normal 11 .6-15.2 (seconds) Final INR 12/25/2023 05:49:00 1.8 Above high normal 0. 8-1.2 Final Performing Location LABORATORY [facility] - [address] [address]
--- OUTSIDE RECORDS SUMMARY | 2024-04-25 23:55 | External Medical Summary | Summary of Care ---
Author Name Unknown Organization [facility] Address [address] [place] [facility] [place] [place] [address] Phone [phone] Care Team Providers Care Marine Biologist Name Role Phone Jad Boone MD Primary Care Provider Reason for Visit * Reason Comments Dosage Adjustment Via Phone (anticoag Cl inic) Encounter Details Date Type Department Care Team (Latest Contact Info) Description 12/26/2023 5:45 PM EDT Anticoagulation Pharmacy Call Center [phone] [place] [address] [facility] [address] [place] [address] PAF (paroxysmal atrial fibrillation) ([facility])* Allergies Active Allergy Reactions Criticality Noted Date Comments Bee Venom Hives High 03/14/2017 documented as of this encounter (statuses as of 12/26/2023) Medications Medication Sig Dispensed Refills Start Date End Date Status Omeprazole 20 MG Oral Capsule Delayed Release (PriLOSEC) Take 1 Capsule by mouth in the morning. 90 Capsule 1 11/15/2022 Active Vitamin D3 1.25 MG (02316 UT) Oral Capsule Take 1 Capsule by mouth once a week. 12 Capsule 3 01/30/2023 Active Additional Information Patient taking differently:50,000 Units Oral QWEEK,Every Monday, Reported on 05/18/2023 Atorvastatin Calcium 20 MG Oral Tablet (Lipitor)Indicatio ns:Coronary artery disease involving qagan tayagungin coronary artery of qagan tayagungin heart without angina pectoris TAKE 1 TABLET, [...] (Lasix)Indications :Chronic diastolic CHF (congestive heart failure) ([facility]) Take 2 Tablets by mouth in the morning. 180 Tablet 1 08/15/2023 Active Metoprolol Succinate ER 25 MG Oral Tablet Extended Release 24 Hour (Toprol XL)Indications:Chr onic diastolic CHF (congestive heart failure) ([facility]) Take 1 Tablet by mouth in [...] Oral Tablet (Coumadin)Indicati ons:PAF (paroxysmal atrial fibrillation) ([facility]) Take 1 Tablet by mouth every evening. 09/28: 10 mg; Otherwise 5 mg every e, Wed, Mon; 7.5 mg all other days and as directed by [facility] 100 Tablet 1 10/04/2023 Active guaiFENesin [...] heart failure with preserved ejection fraction (HFpEF) (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 [...] mRNA, LNP-s, No Pre serve, 2-Dose Series ([employer]) 11/26/2020,11/05/2020 Pneumococcal Conjugate Vacc, 13 Valent [...] Progress Notes * Lamar Early CPhT - 12/26/2023 2:50 PM EDT Contacts Type Contact Phone/Fax 12/26/2023 07:25 AM EDT Fax (Incoming) 12/26/2023 02:45 PM EDT Phone (Outgoing) Stephen Varela (Self) [phone] (M) Left Message Subjective Patient Findings Positives: Other complaints Comments: PT returned from rehab to [facility] Advised patient to contact Anticoagulation Clinic if any unusual bruising or bleeding, recent illness, changes in medication, or questions/concerns. PT/INR results, Coumadin dose instructions, and next PT/INR date communicated as noted by Pharmacist: Yes LAMAR EARLY CPhT 12/26/2023, 2:50 PM * Alyson Salinas [facility] - 12/26/2023 12:38 PM EDT Images from the original note were not included. Coumadin Clinic (region specific) Objective Current Warfarin Dose As of 12/26/2023 Warfarin maintenance plan: 5 mg (1 mg x 5) every Fri; 7.5 mg (1 mg x 7.5) all other days INR Result As of 12/26/2023 INR goal: 2.0-3.0 INR used for dosin.8 (12/25/2023) Assessment & Plan Warfarin Plan As of 12/26/2023 Full warfarin instructions: 12/25: 12 mg; Otherwise 5 mg every Fri; 7.5 mg all other days Next INR check: 01/01/2024 Repeat PT/INR in 1 week(s) Weekly dose: not changed Additional Dosing Information: Description Call patient while at [facility] AND fax [place] pt started multivitamin around beginning october Tech to contact patient with dose instructions as noted. Alyson Salinas RPh 12/26/2023, 12:38 PM * Lamar Early CPhT - 12/26/2023 7:25 AM EDT Patient Phone Numbers Received fax from [facility] for today's results of PT= 21.3 INR= 1.8 Thank you, Lamar Early CPhT Telecommunications Administrator II [facility] ([facility]) 12/26/2023,7:26 AM documented in this encounter Plan of Treatment Upcoming Encounters Date Type Department Care Team (Late st Contact Info) Description 01/01/2024 11:00 AM EDT Office Visit Otolaryngology/Head & Neck/Facial Plastic Surgery [address] [place] [address] Dudley Hinojosa MD [facility] [place] [address] 01/01/2024 5:45 PM EDT Anticoagulation Pharmacy Call Center [place] [phone] [place] [address] [facility] 58 60 [facility] [place] [address] 01/02/2024 10:40 AM EDT Office Visit [place] [address] [place] [address] Jad Boone MD [address] [facility] [address] [place] [address] 01/18/2024 1:30 PM EDT Office Visit Radiation Oncology, [facility] [address] [place] [address] Shelly Rashid MD [address] [place] [address] 02/13/2024 9:20 AM EDT Office Visit [address] [address] Jad Boone MD [address] [facility] [address] [place] [address] 02/16/2024 10:45 AM EDT Office Visit Otolaryngology/Head & Neck/Facial Plastic Surgery [address] [place] [address] Gurvinder Garcia MD [address] [place] [address] 06/06/2024 9:30 AM EDT Office Visit Cardiology, [place] [address] [place] [address] Yas Mckinnon CRNP [address] [place] [address] Health Maintenance Due Date Last Done Comments [...] this encounter Medical Devices Implanted Type Area Physical Therapy Asst Device Identifier Shelf Expiration Date Model / Serial / Lot Connector Nerve 2mm 15mm - [id number] Implanted:Qty: 1 on 04/27/2023 by Dudley Hinojosa [place] [facility]: Face [employer] [id number] 12/24/2024 [id number] / / [id number] Alloderm 4x7 Thin 0.8-1.2 (28 Units) - [id number] - [id number] Implanted:Qty: 28 on 04/27/2023 by Dudley Hinojosa MD [place] [facility] [place]: Face ABBVIE 12/18/2024 [id number] / [id number] / [id number] Sheeting Monisha 2x3in X.020in - [id number] Implanted:Qty: 1 on 04/27/2023 by Dudley Hinojosa MD [place] [facility] [place]: Ear [employer] 09/25/2024- / [id number] Sheeting Monisha 2x3 In X.005in - [id number] Implanted:Qty: 1 on 12/12/2023 by Gurvinder Garcia MD [place] [facility] [place]: Ear [employer] 04/05/2026- / [id number] documented as of this encounter Procedures Procedure Name Priority Date/Time Associated Diagnosis Comments OUTSIDE LAB-PT/INR Routine 12/25/2023 documented in this encounter Results * OUTSIDE LAB-PT/INR (12/25/2023) INR-OUTSIDE LAB 1.8 12/25/2023 History Per Patient LABORATORY documented in this encounter Visit Diagnoses Diagnosis PAF (paroxysmal atrial fibrillation) (HCC)- Primary Atrial fibrillation documented in this encounter Advance Directives Documents on File Type Date Recorded Patient Rn On Site Expl anation POLST 04/26/2023 [place] OR DERS FOR LIFE-SUSTAINING TREATMENT Latest Code [...] Agents on File Name Relationship [facility] Communication Brody Avery Adult Child Power of Back Strip Machine Operator Care Teams Marine Biologist Relationship Specialty Start Date End Date Jad Boone MD [address] [facility] [address] [place] [address] PCP - General Family Medicine 09/20/23 documented as of this encounter
--- OUTSIDE RECORDS SUMMARY | 2024-04-25 23:55 | External Medical Summary | Summary of Care ---
Author Name Unknown Organization [facility] Address [address] [facility] [address] Phone [phone] Care Team Providers Care Fitter And Turner Name Role Phone Jad Boone MD Primary Care Provider Reason for Visit * Reason Comments Dosage Adjustment Via Phone (anticoag Cl inic) Encounter Details Date Type Department Care Team (Latest Contact Info) Description 12/18/2023 6:45 AM EDT Anticoagulation Pharmacy Call Center [address] [place] [address] [facility] 58 60 [place] [address] PAF (paroxysmal atrial fibrillation) ([facility])* Allergies Active Allergy Reactions Criticality Noted Date Comments Bee Venom Hives High 03/14/2017 documented as of this encounter (statuses as of 12/18/2023) Medications Medication Sig Dispensed Refills Start Date End Date Status Omeprazole 20 MG Oral Capsule Delayed Release (PriLOSEC) Take 1 Capsule by mouth in the morning. 90 Capsule 1 11/15/2022 Active Vitamin D3 1.25 MG (20971 UT) Oral Capsule Take 1 Capsule by mouth once a week. 12 Capsule 3 01/30/2023 Active Additional Information Patient taking differently:50,000 Units Oral QWEEK,Every Monday, Reported on 05/18/2023 Atorvastatin Calcium 20 MG Oral Tablet (Lipitor)Indicati ons:Coronary artery disease involving osage coronary artery of osage heart without angina pectoris TAKE 1 TABLET, [...] (Lasix)Indication s:Chronic diastolic CHF (congestive heart failure) ([facility]) Take 2 Tablets by mouth in the morning. 180 Tablet 1 08/15/2023 Active Metoprolol Succinate ER 25 MG Oral Tablet Extended Release 24 Hour (Toprol XL)Indications:Ch ronic diastolic CHF (congestive heart failure) ([facility] [...] Oral Tablet (Coumadin)Indicat ions:PAF (paroxysmal atrial fibrillation) ([facility]) Take 1 Tablet by mouth every evening. 2: 10 mg; Otherwise 5 mg every e, Wed, Mon; 7.5 mg all other days and as directed by [facility] 100 Tablet 1 10/04/2023 Active guaiFENesin 400 MG Oral TabletIndications :Sinus congestion Take 1 Tablet by mouth every 4 hours as needed (cough or sinus drainage). 100 Tablet 0 10/04/2023 Active Ventolin HFA 108 (90 Base) MCG/ACT Inhalation Aerosol Solution Inhale 2 Puffs by mouth every 4 hours as needed for Shortness of Breath. 0 Active Lisinopril 10 MG Oral Tablet (Prinivil)Indicat ions:Chronic heart failure with preserved ejection fraction (HFpEF) ([facility]) Take 1 Tablet by [...] December 14, 2023. 20 Tablet 0 12/14/2023 12/24/2023 Active oxyCODONE HCl 5 MG Oral Tablet (Oxy IR) Take 1 Tablet by mouth every 8 hours as needed for Pain, Severe or Pain, Moderate. 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 0 05/01/2014 Overview: ICD-10 update of inactive term Heart failure, systolic, due to CAD 08/28/2012 Overview: ECHO 2011 - Segmental wall abnormality, severe hypokinesis of anterior septum, anterior wall, apex, distal inferior septum, distal inferior wall, and distal posterior wall EF 33% Mass of left parotid gland documented as of this encounter (statuses as of 12/18/2023) Resolved Problems Problem Noted Date Diagnosed Date [...] as of this encounter (statuses as of 12/18/2023) Immunizations Name Administration Dates Next Due COVID-19 [...] Progress Notes * Alyson Salinas RPh - 12/18/2023 2:29 PM EDT Pt discharged from [facility] to [facility]. Warfarin managed in house. [facility] will follow up for discharge plan. Alyson Salinas Rp, Pharm.D. Clinical Pharmacist [facility] Services ([facility]) (formerly Telepharmacy) [phone] 12/18/2023,2:32 PM documented in this encounter Plan of Treatment Upcoming Encounters Date Type Department Care Team (Late st Contact Info) Description 12/22/2023 11:00 AM EDT Office Visit Otolaryngology/Head & Neck/Facial Plastic Surgery [address] [place] [address] Gurvinder Garcia MD [address] [place] [address] 01/18/2024 1:30 PM EDT Office Visit Radiation Oncology, [facility] [address] [place] [address] Shelly Rashid MD [address] [place] [address] 02/13/2024 9:20 AM EDT Office Visit [place] [address] [place] [address] Jad Boone MD [facility] [address] [place] [address] 06/06/2024 9:30 AM EDT Office Visit Cardiology, [place] [address] [place] [address] Yas Mckinnon CRNP [address] [place] [address] Health Maintenance Due Date Last Done Comments Albumin/Creatinine Ratio 1963 Hepatitis C Screening 1963 Zoster Vaccines (2 of 3) 06/26/2014 05/01/2014 *SPIROMETRY ONCE FOR ASTHMA-ADULT 07/14/2022 COVID-19 Vaccine (2022- season) 2023 06/01/2023, 06/09/2022, 12/31/2021, Additional history exists *NEPHROLOGY REFERRAL DUE TO RESISTANT HTN 09/25/2023 Depression Screening 09/18/2024 09/18/2023 GFR 12/04/2024 12/05/2023, 10/20, 07/24/2023, Additional history exists DTaP,Tdap,and Td Vaccines (2 [...] this encounter Medical Devices Implanted Type Area Rating Officer Device Identifier Shelf Expiration Date Model / Serial / Lot Connector Nerve 2mm 15mm - [id number] Implanted:Qty: 1 on 04/27/2023 by Dudley Hinojosa MD at [facility] Left: Face [employer] [id number] 12/24/2024 [id number] / / [id number] Alloderm 4x7 Thin 0.8-1.2 (28 Units) - [id number] - [id number] Implanted:Qty: 28 on 04/27/2023 by Dudley Hinojosa MD at [place] [facility] Left: Face ABBVIE 12/18/2024 [id number] / [id number] / [id number] Sheeting Monisha 2x3in X.020in - [id number] Implanted:Qty: 1 on 04/27/2023 by Dudley Hinojosa MD at OR [facility] Left: Ear [employer] 09/25/2024- / / [id number] Sheeting Monisha 2x3 In X.005in - [id number] Implanted:Qty: 1 on 12/12/2023 by Gurvinder Garcia MD at OR [facility] Left: Ear [employer] 04/05/2026- / [id number] documented as of this encounter Visit Diagnoses Diagnosis PAF (paroxysmal atrial fibrillation) (HCC)- Primary Atrial fibrillation documented in this encounter Advance Directives Documents on File Type Date Recorded Patient Ham Passer Expl anation POLST 04/26/2023 [place] OR [facility] FOR LIFE-SUSTAINING TREATMENT Latest Code Status on [...] Communication Brody Varela Adult Child Power of Data Base Administrator Care Teams Fitter And Turner Relationship Specialty Start Date End Date Jad Boone MD [address] [facility] [place] [address] PCP - General Family Medicine 09/20/23 documented as of this encounter
--- OUTSIDE RECORDS SUMMARY | 2024-04-25 23:55 | External Medical Summary | Summary of Care ---
Author Name Unknown Organization [facility] Address [address] [place] [address] Phone [phone] Care Team Providers Care Varitype Operator Name Role Phone Jad Boone MD Primary Care Provider Reason for Visit * Reason Comments Post-Op Encounter Details Date Type Department Care Team (Late st Contact Info) Description 12/22/2023 11:00 AM EDT Office Visit Otolaryngology/Head & Neck/Facial Plastic Surgery [address] [place], [place] [id number] Jovany Garcia MD [address] [place] [address] Acquired stenosis of left external [...] 1 11/15/2022 Active Vitamin D3 1.25 MG (46341 UT) Oral Capsule Take 1 Capsule by mouth once a week. 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 [address] [place] [address] Shelly Rashid MD [address] [facility] [address] 02/13/2024 9:20 AM EDT Office Visit [place] [address] [place] [address] Jad Boone MD [address] [facility] [address] [place] [address] 02/16/2024 10:45 AM EDT Office Visit Otolaryngology/Head & Neck/Facial Plastic Surgery [address] [place] [address] Jovany Garcia MD [address] [place] [address] 06/06/2024 9:30 AM EDT Office Visit Cardiology, [place] [address] [place] [address] Yas Mckinnon CRNP [address] [place] [address] Health Maintenance Due Date Last Done Comments [...] this encounter Medical Devices Implanted Type Area Clinical Data Assistant Device Identifier Shelf Expiration Date Model / Serial / Lot Connector Nerve 2mm 15mm - [id number] Implanted:Qty: 1 on 04/27/2023 by [place] H[place] [facility] [place] [employer] [id number] 12/24/2024 [id number] / / [id number] Alloderm 4x7 Thin 0.8-1.2 (28 Units) - [id number] - [id number] Implanted:Qty: 28 on 04/27/2023 by Dudley H[place]osa [place] [facility] [place] Face ABBVIE 12/18/2024 [id number] / [id number] / [id number] Sheeting Monisha 2x3in X.020in - [id number] Implanted:Qty: 1 on 04/27/2023 by Dudley H[place]osa [place] [facility] [place] Ear [employer] 09/25/2024- / [id number] Sheeting Monisha 2x3 In X.005in - [id number] Implanted:Qty: 1 on 12/12/2023 by Jovany Garcia MD [place] [facility] [place] Ear [employer]IED [employer] 04/05/2026 / [id number] documented as of this encounter Visit Diagnoses Diagnosis 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 Child Power of Cleaning Manager Care Teams Varitype Operator Relationship Specialty Start Date End Date Jad Boone MD [address] [place] [address] [place] [address] PCP - General Family Medicine 09/20/23 documented as of this encounter
--- OUTSIDE RECORDS SUMMARY | 2024-04-25 23:55 | External Medical Summary ---
Author Name Unknown Address Unknown Organization K1F:LABORATORY [facility] - [address] [place] [address] Laboratory Report Ordering Provider Test Date Status SENG GARCIA 12/22/2023 06:38:00 Final Observation Date Value Abnormality Reference (Units ) Status WBC, Total 12/22/2023 06:38:00 6.41 4.00-10.80 (K/uL) Final RBC 12/22/2023 06:38:00 3.74 4.50-5.25 (M/uL) Final Hemoglobin 12/22/2023 06:38:00 10.3 Below low normal 14.0-16.8 (g/dL) Final HCT 12/22/2023 06:38:00 33.9 Below low normal 40.0-48.4 (%) Final MCV 12/22/2023 06:38:00 90.6 82.0-99.5 (fL) Final MCH 12/22/2023 06:38:00 27.5 27.0-34.0 (pg) Final MCHC 12/22/2023 06:38:00 30.4 32.0-36.0 (g/dL) Final RDW 12/22/2023 06:38:00 17.9 11.5-15.5 (%) Final Platelets 12/22/2023 06:38:00 165 140-400 (K/uL) Final MPV 12/22/2023 06:38:00 9.5 6.6-11.1 (fL) Final Nucleated erythrocytes/100 leukocytes [Ratio] in Blood by Automated count 12/22/2023 06:38:00 0 <=0 (/100 WBCs) Final Performing Location LABORATORY [facility] - [address] [address]
--- OUTSIDE RECORDS SUMMARY | 2024-04-25 23:55 | External Medical Summary | Summary of Care ---
Author Name Unknown Organization [facility] Address [address] [place] [address] Phone [phone] Care Team Providers Care Project Specialist Name Role Phone Jad Boone MD Primary Care Provider Encounter Details Date Type Department Care Team (Late st Contact Info) Description 12/25/2023 Result Scan Unspecified Department Alyson Salinas, [facility] [address] [place] [address] <No scans attached> Allergies Active Allergy Reactions Criticality Noted Date Comments Bee Venom Hives High 03/14/2017 documented as of this encounter (statuses as of 12/26/2023) Medications Medication Sig Dispensed Refills Start Date End Date Status Omeprazole 20 MG Oral Capsule Delayed Release (PriLOSEC) Take 1 Capsule by mouth in the morning. 90 Capsule 1 11/15/2022 Active Vitamin D3 1.25 MG (21215 UT) Oral Capsule Take 1 Capsule by mouth once a week. 12 Capsule 3 01/30/2023 Active Additional Information Patient taking differently:50,000 Units Oral QWEEK,Every Monday, Reported on 05/18/2023 Atorvastatin Calcium 20 MG Oral Tablet (Lipitor)Indicatio ns:Coronary artery disease involving [place] coronary artery of [place] heart without angina pectoris TAKE 1 TABLET, [...] (Coumadin)Indicati ons:PAF (paroxysmal atrial fibrillation) ([facility]) Take 1 Tablet by mouth every evening. 09/28: 10 mg; Otherwise 5 mg every Mon, Wed, Mon; 7.5 mg all other days and as directed by [facility] 100 Tablet 1 10/04/2023 Active guaiFENesin [...] fibrillation) 10/18/2018 Coronary artery disease invo lving [place] coronary artery without angina pectoris 01/07/2015 prison [...] 5:45 PM EDT Anticoagulation Pharmacy Call Center [address] [place] [address] [facility] [address] [facility] [place] [address] PAF (paroxysmal atrial fibrillation) (HCC)* 12/28/2023 7:00 AM EDT Anticoagulation Pharmacy Call Center [address] [place] [address] [facility] 58 60 [place] [address] 01/01/2024 11:00 AM EDT Office Visit Otolaryngology/Head & Neck/Facial Plastic Surgery [address] [place] [address] Dudley Hinojosa MD [facility] [place] [address] 01/02/2024 10:40 AM EDT Office Visit [place] [address] [address] [place] [address] Jad Boone MD [facility]2 [facility] [address] [place] [address] [place] [address] 01/18/2024 1:30 PM EDT Office Visit Radiation Oncology, [facility] [address] [place], [place] [address] Shelly Rashid MD [address] [place] [address] 02/13/2024 9:20 AM EDT Office Visit [facility] [address] [place] [address] Jad Boone MD [address] [facility] [address] [place] [address] 02/16/2024 10:45 AM EDT Office Visit Otolaryngology/Head & Neck/Facial Plastic Surgery [address] [place] [address] Gurvinder Garcia MD [address] [place] [address] 06/06/2024 9:30 AM EDT Office Visit Cardiology, [place] [address] [place] [address] Yas Mckinnon CRNP [address] [place], [place] [address] Health Maintenance Due Date Last Done Comments [...] this encounter Medical Devices Implanted Type Area Florist Supplies Salesperson Device Identifier Shelf Expiration Date Model / Serial / Lot Connector Nerve 2mm 15mm - [id number] Implanted:Qty: 1 on 04/27/2023 by Dudley Hinojosa MD [place] [facility] [place]: Face [employer] [id number] 12/24/2024 [id number] / / [id number] Alloderm 4x7 Thin 0.8-1.2 (28 Units) - [id number] - [id number] Implanted:Qty: 28 on 04/27/2023 by Dudley Hinojosa MD [place] [facility] [place] Left: Face ABBVIE 12/18/2024 [id number] / [id number] / [id number] Sheeting Monisha 2x3in X.020in - [id number] Implanted:Qty: 1 on 04/27/2023 by Dudley Hinojosa MD [place] [facility] [place] Left: Ear [employer] 09/25/2024-700- / / [id number] Sheeting Monisha 2x3 In X.005in - [id number] Implanted:Qty: 1 on 12/12/2023 by Gurvinder Garcia MD at [place] [facility] [place] Left: Ear [employer] 04/05/2026-700-05 / / [id number] documented as of this encounter Procedures Procedure Name Priority Date/Time Associated Diagnosis Comments OUTSIDE LAB RESULTS 12/25/2023 documented in this encounter Results * OUTSIDE LAB RESULTS (12/25/2023) 12/25/2023 Alyson Salinas [facility] LABORATORY documented in this encounter Advance Directives Documents on File Type Date Recorded Patient Terminal Computer Operator Expl anation POLST 04/26/2023 [place] OR [facility] FOR LIFE-SUSTAINING TREATMENT Latest Code [...] Name Relationship Healthcare Agent [facility] Child Power of Food Service Ambassador Care Teams Project Specialist Relationship Specialty Start Date End Date Jad Boone MD [address] [place] [address] [place] [address] PCP - General Family Medicine 09/20/23 documented as of this encounter
--- OUTSIDE RECORDS SUMMARY | 2024-04-25 23:55 | External Medical Summary ---
Author Name Unknown Address Unknown Organization K1F:LABORATORY [facility] - [address] [facility]. [place] [address] Laboratory Report Ordering Provider Test Date Status SENG GARCIA 12/22/2023 06:38:00 Final Observation Date Value Abnormality Reference (Units ) Status SYNC LEUKOCYTES IN BLOOD BY AUTOMATED COUNT 12/22/2023 06:38:00 6.41 4.00-10.80 (K/uL) Final Segs 12/22/2023 06:38:00 68.4 40.0-75.0 (%) Final Lymphs % 12/22/2023 06:38:00 10.9 Below low normal 18.0-42.0 (%) Final Monos 12/22/2023 06:38:00 10.6 1.0-11.0 (%) Final Eosinophils 12/22/2023 06:38:00 9.2 Above high normal 0.0-6.0 (%) Final Basos 12/22/2023 06:38:00 0.6 0.0-2.0 (%) Final Immature Granulocyte, Percent 12/22/2023 06:38:00 0.3 0.0-2.0 (%) Final Absolute Segs 12/22/2023 06:38:00 4.38 1.80-7.70 (K/uL) Final Lymphs, absolute 12/22/2023 06:38:00 0.70 Below low normal 1.00-4.80 (K/ul) Final Monos, Abs 12/22/2023 06:38:00 0.68 0.00-1.10 (K/uL) Final Eos, Abs 12/22/2023 06:38:00 0.59 0.00-0.70 (K/uL) Final Basos, Abs 12/22/2023 06:38:00 0.04 0.00-0.20 (K/uL) Final Immature Granulocytes, Number 12/22/2023 06:38:00 0.02 0.00-0.20 (K/uL) Final Performing Location LABORATORY [facility] - [address] [place], [place] [address] [address]. [place] [address]
--- OUTSIDE RECORDS SUMMARY | 2024-04-25 23:55 | External Medical Summary | Summary of Care ---
Author Name Unknown Organization [facility] Address [address] [facility] [address] Phone [phone] Care Team Providers Care Loading Checker Name Role Phone Jad Boone MD Primary Care Provider Reason for Visit * Reason Comments Status Check Encounter Details Date Type Department Care Team (Latest Contact Info) Description 12/21/2023 7:00 AM EDT Anticoagulation Pharmacy Call Center 58[address] [facility] [place] [address] [facility] 58 60 [place] [address] PAF (paroxysmal atrial fibrillation) ([facility])* Allergies Active Allergy Reactions Criticality Noted Date Comments Bee Venom Hives High 03/14/2017 documented as of this encounter (statuses as of 12/21/2023) Medications Medication Sig Dispensed Refills Start Date End Date Status Omeprazole 20 MG Oral Capsule Delayed Release (PriLOSEC) Take 1 Capsule by mouth in the morning. 90 Capsule 1 11/15/2022 Active Vitamin D3 1.25 MG (78095 UT) Oral Capsule Take 1 Capsule by mouth once a week. 12 Capsule 3 01/30/2023 Active Additional Information Patient taking differently:50,000 Units Oral QWEEK,Every Monday, Reported on 05/18/2023 Atorvastatin Calcium 20 MG Oral Tablet (Lipitor)Indicati ons:Coronary artery disease involving [place] coronary artery of [place] heart without angina pectoris TAKE 1 TABLET, [...] (Lasix)Indication s:Chronic diastolic CHF (congestive heart failure) ([facility]) Take 2 Tablets by mouth in the morning. 180 Tablet 1 08/15/2023 Active Metoprolol Succinate ER 25 MG Oral Tablet Extended Release 24 Hour (Toprol XL)Indications:Ch ronic diastolic CHF (congestive heart failure) ([facility]) Take 1 Tablet by mouth [...] Oral Tablet (Coumadin)Indicat ions:PAF (paroxysmal atrial fibrillation) ([facility]) Take 1 Tablet by mouth every evening. 28: 10 mg; Otherwise 5 mg every e, Wed, Mon; 7.5 mg all other days and as directed by [facility] 100 Tablet 1 10/04/2023 [...] heart failure with preserved ejection fraction (HFpEF) (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 0 05/01/2014 Overview: ICD-10 update of inactive term Heart failure, systolic, due to CAD 08/28/2012 Overview: ECHO 2011 - Segmental wall abnormality, severe hypokinesis of anterior septum, anterior wall, apex, distal inferior septum, distal inferior wall, and distal posterior wall EF 33% Mass of left parotid gland documented as of this encounter (statuses as of 12/21/2023) Resolved Problems Problem Noted Date Diagnosed Date [...] as of this encounter (statuses as of 12/21/2023) Immunizations Name Administration Dates Next Due COVID-19 [...] as of this encounter Progress Notes * Ruby Michaud PHARM Tech - 12/21/2023 10:46 AM EDT Telepharm AntiCoag [facility] Longterm Follow Up Stephen Echevarria [phone] Called Facility spoke to Other Assembler Corncob Pipes Casie . Confirmed patient remains admitted to facility at this time, coumadin is managed in house by facility provider. No Discharge plans in place at this time, [facility] will continue to follow up for discharge. Follow up scheduled in 1 week.. Additional Information Provided by facility: Thank you, Ruby Michaud Front Office Representative [facility] 12/21/2023, 10:46 AM documented in this encounter Plan of Treatment Upcoming Encounters Date Type Department Care Team (Late st Contact Info) Description 12/22/2023 11:00 AM EDT Office Visit Otolaryngology/Head & Neck/Facial Plastic Surgery [address] [place] [address] Gurvinder Garcia MD [address] [place] [address] 12/28/2023 7:00 AM EDT [facility] [address] [facility] [address] [facility] 58 60 [facility] [place] [address] 01/18/2024 1:30 PM EDT Office Visit Rad[facility] [address] [place] [address] Shelly Rashid MD [address] [place] [address] 02/13/2024 9:20 AM EDT Office Visit Family [facility], [place] [address] [address] [place] [address] Jad Boone MD [address] [place] [address] 06/06/2024 9:30 AM EDT Office Visit Cardiology, [place] 400 [facility] [place] [address] Yas Mckinnon CRNP 400 [facility] [address] Health Maintenance Due Date Last Done Comments [...] this encounter Medical Devices Implanted Type Area Artificial Snow Making Machine Operator Device Identifier Shelf Expiration Date Model / Serial / Lot Connector Nerve 2mm 15mm - [id number] Implanted:Qty: 1 on 04/27/2023 [place] [facility] [place] [employer] [id number] 12/24/2024 [id number] / / [id number] Alloderm 4x7 Thin 0.8-1.2 (28 Units) - [id number] - [id number] Implanted:Qty: 28 on 04/27/2023 by Dud[place] H[place] [facility] [place] Face ABBVIE 12/18/2024 [id number] / [id number] / [id number] Sheeting Monisha 2x3in X.020in - [id number] Implanted:Qty: 1 on 04/27/2023 by Dudley H[place] [facility] [place] Ear [employer] 09/25/2024 23-700-20 / / [id number] Sheeting Monisha 2x3 In X.005in - [id number] Implanted:Qty: 1 on 12/12/2023 by Gurvinder Garcia [place] [facility] [place] Ear [employer]IED BIOM[employer] 04/05/2026 23-700-05 / / [id number] documented as of this encounter Visit Diagnoses Diagnosis PAF (paroxysmal atrial fibrillation) (HCC)- Primary Atrial fibrillation documented in this encounter Advance Directives Documents on File Type Date Recorded Patient Complaint Investigations Officer Expl anation POLST 04/26/2023 [place] OR [facility] FOR LIFE-SUSTAINING TREATMENT Latest Code Status on [...] Agents on File Name Relationship Healthcare Agent [facility] Communication [facility] Adult Child Power of Grain Operations Manager Care Teams Loading Checker Relationship Specialty Start Date End Date Jad Boone MD [address] [place] [address] [place] [address] PCP - General Family Medicine 09/20/23 documented as of this encounter
--- OUTSIDE RECORDS SUMMARY | 2024-04-25 23:55 | External Medical Summary ---
Author Name Unknown Address Unknown Organization K1F:LABORATORY [facility] - [address] [place] [address] Laboratory Report Ordering Provider Test Date Status SENG GARCIA 12/22/2023 06:38:00 Final Observation Date Value Abnormality Reference (Units ) Status BUN 12/22/2023 06:38:00 21 Above high normal 6-20 (mg/dL) Final Creatinine 12/22/2023 06:38:00 1.0 0.6-1.2 (mg/dL) Final Glomerular filtration rate/1.73 sq M.predicted [Volume Rate/Area] in Serum, Plasma or Blood by Creatinine-based formula (CKD-EPI) 12/22/2023 06:38:00 74 >=60 (mL/min) Final eGFR is calculated based on the CKD-EPI 2020 equation Sodium 12/22/2023 06:38:00 141 135-146 (m mol/L) Final Potassium 12/22/2023 06:38:00 4.2 3.5-5.1 (m mol/L) Final Cl 12/22/2023 06:38:00 103 98-107 (mm ol/L) Final CO2 12/22/2023 06:38:00 26 22-32 (mmo l/L) Final Anion gap 12/22/2023 06:38:00 12 7-15 (mmol /L) Final Glucose 12/22/2023 06:38:00 79 70-120 (mg /dL) Final Calcium 12/22/2023 06:38:00 9.2 8.4-10.2 ( mg/dL) Final Performing Location LABORATORY [facility] - [address] [place] [address]
--- OUTSIDE RECORDS SUMMARY | 2024-04-25 23:55 | External Medical Summary | Summary of Care ---
Author Name Unknown Organization [facility] Address [address] [place] [address] Phone [phone] Care Team Providers Care Director Of Corporate Real Estate Name Role Phone Jad Boone MD Primary Care Provider Reason for Visit * Reason Comments Post-Op Encounter Details Date Type Department Care Team (Late st Contact Info) Description 12/22/2023 11:00 AM EDT Office Visit Otolaryngology/Head & Neck/Facial Plastic Surgery [address] [place], [place] [id number] Jovany Garcia MD [address] [place] [address] Acquired stenosis of left external [...] 1 11/15/2022 Active Vitamin D3 1.25 MG (55692 UT) Oral Capsule Take 1 Capsule by mouth once a week. 12 Capsule 3 01/30/2023 Active Additional Information Patient taking differently:50,000 Units Oral QWEEK,Every Monday, Reported on 05/18/2023 Atorvastatin Calcium 20 MG Oral Tablet (Lipitor)Indicat ions:Coronary artery disease involving [place] coronary artery of [place]re[place] heart without angina pectoris TAKE 1 TABLET, [...] (Lasix)Indicatio ns:Chronic diastolic CHF (congestive heart failure) ([facility]) Take 2 Tablets by mouth in the morning. 180 Tablet 1 08/15/2023 Active Metoprolol Succinate ER 25 MG Oral Tablet Extended Release 24 Hour (Toprol XL)Indications:C hronic diastolic CHF (congestive heart failure) ([facility] [...] Oral Tablet (Coumadin)Indica tions:PAF (paroxysmal atrial fibrillation) ([facility]) Take 1 Tablet by mouth every evening. 09/28: 10 mg; Otherwise 5 mg every Mon, Mon, Mon; 7.5 mg all other days and as directed by [facility] 100 Tablet 1 10/04/2023 [...] December 14, 2023. 20 Tablet 0 12/14/2023 4 Active oxyCODONE HCl 5 MG Oral Tablet [...] Drops before bedtime. 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 Do all this for 20 days. 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 0 05/01/2014 [...] Contact Info) Description 12/28/2023 7:00 AM EDT Anticoagulation Pharmacy Call Center WB [address] [facility] [place] [address] [facility], [facility] 58 60 [facility] [place] [address] 01/01/2024 11:00 AM EDT Office Visit Otolaryngology/Head & Neck/Facial Plastic Surgery [address] [place] [address] Dudley Hinojosa MD [address] [facility] [place] [address] 01/18/2024 1:30 PM EDT Office Visit Radiation Oncology, [facility] [address] [place] [address] Shelly Rashid MD [address] [place] [address] 02/13/2024 9:20 AM EDT Office Visit Family [place] [address] [place] [address] Jad Boone MD [address] [facility] [address] [place] [address] 06/06/2024 9:30 AM EDT Office Visit Cardiology, [place] [address] [facility] [place] [address] Yas Mckinnon CRNP [address] [place], [place] [phone] Health Maintenance Due Date Last Done Comments Albumin/Creatinine Ratio 1963 Hepatitis C Screening 1963 Zoster Vaccines (2 of 3) 06/26/2014 05/01/2014 *SPIROMETRY ONCE FOR ASTHMA-ADULT 07/14/2022 COVID-19 Vaccine ( - season) 2023 11/26/2020, 11/05/2020 *NEPHROLOGY REFERRAL [...] this encounter Medical Devices Implanted Type Area Salicylic Acid Blender Device Identifier Shelf Expiration Date Model / Serial / Lot Connector Nerve 2mm 15mm - [id number] Implanted:Qty: 1 on 04/27/2023 by Dudley Hinojosa MD at OR [facility] Left: Face [employer] [id number] 12/24/2024 [id number] / / [id number] Alloderm 4x7 Thin 0.8-1.2 (28 Units) - [id number] - [id number] Implanted:Qty: 28 on 04/27/2023 by Dudley Hinojosa MD at OR [facility] Left: Face ABBVIE 12/18/2024 [id number] / [id number] / [id number] Sheeting Monisha 2x3in X.020in - [id number] Implanted:Qty: 1 on 04/27/2023 by Dudley Hinojosa MD at OR [facility] Left: Ear ALLIED BIOM[employer] 09/25/2024 23-700-20 / / [id number] Sheeting Monisha 2x3 In X.005in - [id number] Implanted:Qty: 1 on 12/12/2023 by Jovany Garcia MD at OR [facility] Left: Ear [employer]IED BI[employer] 04/05/2026 23-700-05 / / [id number] documented as of this encounter Visit Diagnoses Diagnosis 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- Primary Acquired stenosis of external ear canal unspecified as to cause documented in this encounter Advance Directives Documents on File Type Date Recorded Patient Storage Manager Expl anation POLST 04/26/2023 [place] OR DERS FOR LIFE-SUSTAINING TREATMENT Latest Code [...] Communication Brody Avery Adult Child Power of Tool Room Machinist Care Teams Director Of Corporate Real Estate Relationship Specialty Start Date End Date Jad Boone MD [address] [facility] [address] [facility] [place] [address] PCP - General Family Medicine 09/20/23 documented as of this encounter
--- OUTSIDE RECORDS SUMMARY | 2024-04-25 23:55 | External Medical Summary | Summary of Care ---
Author Name Unknown Organization [facility] Address [address] [place] [facility] [place] [address] Phone [phone] Care Team Providers Care Newspaper Delivery Driver Name Role Phone Jad Boone MD Primary Care Provider Reason for Visit * Reason Comments Dosage Adjustment Via Phone (anticoag Cl inic) Encounter Details Date Type Department Care Team (Latest Contact Info) Description 12/26/2023 5:45 PM EDT Anticoagulation Pharmacy Call Center [address] [place] [address] [facility] [address] [place] [address] PAF (paroxysmal atrial fibrillation) ([facility])* [...] 1 11/15/2022 Active Vitamin D3 1.25 MG (80423 UT) Oral Capsule Take 1 Capsule by mouth once a week. 12 Capsule 3 01/30/2023 Active Additional Information Patient taking differently:50,000 Units Oral QWEEK,Every Monday, Reported on 05/18/2023 Atorvastatin Calcium 20 MG Oral Tablet (Lipitor)Indicatio ns:Coronary artery disease involving [place] coronary artery of [place] heart without angina pectoris TAKE 1 TABLET, [...] (Lasix)Indications :Chronic diastolic CHF (congestive heart failure) ([facility]) Take 2 Tablets by mouth [...] atrial fibrillation) ([facility]) Take 1 Tablet by mouth every evening. 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 PT/INR results, Coumadin dose instructions, and next PT/INR date communicated as noted by Pharmacist: Yes LAMAR EARLY CPhT 12/26/2023, 2:50 PM * Alyson Salinas [facility] - 12/26/2023 12:38 PM EDT Images from [...] while at [facility] AND fax [place] pt started multivitamin around beginning october Tech to contact patient with dose instructions as noted. Alyson Salinas RPh 12/26/2023, 12:38 PM * Lamar Early CPhT - 12/26/2023 7:25 AM EDT Patient Phone Numbers Received fax from [facility] for today's results of PT= 21.3 INR= 1.8 Thank you, Lamar Early CPhT [facility] 12/26/2023,7:26 AM documented in this encounter Plan of Treatment Upcoming Encounters Date Type Department Care Team (Late st Contact Info) Description 01/01/2024 11:00 AM EDT Office Visit Otolaryngology/Head & Neck/Facial Plastic Surgery [address] [place] [address] Dudley Hinojosa MD [facility] [place] [id number] 01/02/2024 10:40 AM EDT Office Visit [place] [address] [place] [address] Jad Boone MD [facility] [address] [place] [address] 01/18/2024 1:30 PM EDT Office Visit Radiation Oncology, [facility] [address] [place] [address] Shelly Rashid MD [address] [facility] [address] 02/13/2024 9:20 AM EDT Office Visit [facility] [address] [place] [address] Jad Boone MD [address] [place] [address] 02/16/2024 10:45 AM EDT Office Visit Otolaryngology/Head & Neck/Facial Plastic Surgery [address] [place] [address] Gurvinder Garcia MD [address] [place] [address] 06/06/2024 9:30 AM EDT [facility] [address] [place] [address] Yas Mckinnon CRNP [address] [place] [address] Health Maintenance Due Date Last Done Comments [...] this encounter Medical Devices Implanted Type Area Jewelry Racker Device Identifier Shelf Expiration Date Model / Serial / Lot Connector Nerve 2mm 15mm - [id number] Implanted:Qty: 1 on 04/27/2023 by Dudley Hinojosa MD at OR [facility] Left: Face [employer] [id number] 12/24/2024 [id number] / / [id number] Alloderm 4x7 Thin 0.8-1.2 (28 Units) - [id number] - [id number] Implanted:Qty: 28 on 04/27/2023 by Dudley Hinojosa MD at OR [facility] Left: Face ABBVIE 12/18/2024 [id number] / [id number] / [id number] Sheeting Monisha 2x3in X.020in - [id number] Implanted:Qty: 1 on 04/27/2023 by Dudley Hinojosa MD at OR [facility] Left: Ear [employer]IED [employer] 09/25/2024- / / [id number] Sheeting Monisha 2x3 In X.005in - [id number] Implanted:Qty: 1 on 12/12/2023 by Gurvinder Garcia MD at OR [facility] Left: Ear ALLIED BIOM[employer] 04/05/2026- / / [id number] documented as of this encounter Procedures Procedure Name Priority Date/Time Associated Diagnosis Comments OUTSIDE LAB-PT/INR Routine 12/25/2023 documented in this encounter Results * OUTSIDE LAB-PT/INR (12/25/2023) INR-OUTSIDE LAB 1.8 12/25/2023 History Per Patient LABORATORY documented in this encounter Visit Diagnoses Diagnosis PAF (paroxysmal atrial fibrillation) (HCC)- Primary Atrial fibrillation documented in this encounter Advance Directives Documents on File Type Date Recorded Patient Social Services Specialist Expl anation POLST 04/26/2023 [place] OR DERS FOR LIFE-SUSTAINING TREATMENT Latest Code [...] on File Name Relationship Healthcare Agent [facility] Communication Brody Avery Adult Child Power of Project Manager Process Development Care Teams Newspaper Delivery Driver Relationship Specialty Start Date End Date Jad Boone MD [address] [place] [address] [place] [address] PCP - General Family Medicine 09/20/23 documented as of this encounter
--- OUTSIDE RECORDS SUMMARY | 2024-04-25 23:56 | External Medical Summary ---
Author Name Unknown Address Unknown Organization [id number]:LABORATORY [facility] - [address] [place] [address] Laboratory Report Ordering Provider Test Date Status SENG GARCIA 12/18/2023 06:35:00 Final Warfarin Therapy
INR: 2 .0-3.0 conventional anticoagulation
INR: 2.5- 3.5 high intensity anticoagulation Observation Date Value Abnormality Reference (Units ) Status PT 12/18/2023 06:35:00 15.1 11.6-15.2 (seconds) Final INR 12/18/2023 06:35:00 1.2 0.8-1.2 Final Performing Location LABORATORY [facility] - [address] [place] [address]
--- OUTSIDE RECORDS SUMMARY | 2024-04-25 23:56 | External Medical Summary ---
Author Name Unknown Address Unknown Organization K01:[facility] [place] [address] [place] [address] Laboratory Report Ordering Provider Test Date Status TRE YUNG 12/12/2023 14:41:51 Final Warfarin Therapy
INR: 2 .0-3.0 conventional anticoagulation
INR: 2.5- 3.5 high intensity anticoagulation Observation Date Value Abnormality Reference (Units ) Status PT 12/12/2023 14:41:51 16.0 Above high normal 11 .6-15.2 (seconds) Final INR 12/12/2023 14:41:51 1.3 Above high normal 0. 8-1.2 Final Performing Location [facility] [place] [address] [place] [address]
--- OUTSIDE RECORDS SUMMARY | 2024-04-25 23:56 | External Medical Summary | Summary of Care ---
Author Name Unknown Organization [facility] Address [address] [place] [address] Phone [phone] Care Team Providers Care Infrastructure Director Name Role Phone Jad Boone MD Primary Care Provider Reason for Visit * Reason Comments Wound Recheck Encounter Details Date Type Department Care Team (Late st Contact Info) Description 12/07/2023 9:40 AM EDT Nurse Only Ancillary, [facility] [address] [place], [place] [phone] [place], Nurse, RN [address] [place] [address] Wound Recheck Allergies Active Allergy Reactions Criticality Noted Date Comments Bee Venom Hives High 03/14/2017 documented as of this encounter (statuses as of 12/07/2023) Medications Medication Sig Dispensed Refills Start Date End Date Status Omeprazole 20 MG Oral Capsule Delayed Release (PriLOSEC) Take 1 Capsule by mouth in the morning. 90 Capsule 1 11/15/2022 Active Vitamin D3 1.25 MG (94515 UT) Oral Capsule Take 1 Capsule by mouth once a week. 12 Capsule 3 01/30/2023 Active Additional Information Patient taking differently:50,000 Units Oral QWEEK,Every Monday, Reported on 05/18/2023 Atorvastatin Calcium 20 MG Oral Tablet (Lipitor)Indicatio ns:Coronary artery disease involving [place] coronary artery of [place] heart without angina pectoris TAKE 1 TABLET, [...] (Lasix)Indications :Chronic diastolic CHF (congestive heart failure) ([facility]) Take 2 Tablets by mouth in the morning. 180 Tablet 1 08/15/2023 Active Metoprolol Succinate ER 25 MG Oral Tablet Extended Release 24 Hour (Toprol XL)Indications:Chr onic diastolic CHF (congestive heart failure) ([facility]) Take 1 Tablet by mouth [...] Oral Tablet (Coumadin)Indicati ons:PAF (paroxysmal atrial fibrillation) ([facility]) Take 1 Tablet by mouth every evening. 09/28: 10 mg; Otherwise 5 mg every Mon, Mon, Mon; 7.5 mg all other days and as directed by [facility] Pharm[facility] 100 Tablet 1 10/04/2023 [...] heart failure with preserved ejection fraction (HFpEF) ([facility]) Take 1 Tablet by mouth in the morning. 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 0 05/01/2014 Overview: ICD-10 update of inactive term Heart failure, systolic, due to CAD 08/28/2012 Overview: ECHO 2011 - Segmental wall abnormality, severe hypokinesis of anterior septum, anterior wall, apex, distal inferior septum, distal inferior wall, and distal posterior wall EF 33% Mass of left parotid gland documented as of this encounter (statuses as of 12/07/2023) Resolved Problems Problem Noted Date Diagnosed Date [...] as of this encounter (statuses as of 12/07/2023) Immunizations Name Administration Dates Next Due COVID-19 [...] No 04/26/2023 documented as of this encounter Nursing Notes * Tere Campa CMA - 12/07/2023 10:19 AM EDT Patient came in for unna boot removal. I removed the coban, rolled gauze and unna boot. There is some seepage down near the bottom of the boot. I had dr boone come in and look at his legs. He would like to put them on again. Pt states he will come back tomorrow to have them put back on. Pt would like to go home and shower, however doesn't have a way back over. Plan is to put on tomorrow and then pt come in for removal on Monday, in time for his surgery on Monday. documented in this encounter Plan of Treatment Upcoming Encounters Date Type Department Care Team (Latest Contact Info) Description 12/12/2023 12:37 PM EDT Hospital Encounter OR [facility], OPERATING ROOM [facility], [facility] [address] [place] [address] Gurvinder Garcia MD [address] [place] [address] 12/12/2023 12:37 PM EDT - 12/12/2023 5:43 PM EDT Surgery OR [facility], OPERATING ROOM [facility], [facility] [address] [place] [address] Gurvinder Garcia MD [address] [place] [address] RECONSTRUCTION EXTERNAL AUDITORY CANAL DUE TO INJURY 12/13/2023 6:45 AM EDT Anticoagulation Pharmacy Call Center [address] [place] [address] [facility] [address] [facility] [address] 01/18/2024 1:30 PM EDT Office Visit Radiation Oncology, [facility] [address] [facility] [id number] Eros Faust MD [address] [place], [place] [address] [id number] 02/13/2024 9:20 AM EDT Office Visit [address] [place] [address] Jad Boone MD [address] [place] [address] 06/06/2024 9:30 AM EDT Office Visit Cardiology, [place] [address] [place] [address] Yas Mckinnon CRNP [address] [place] [address] Scheduled Procedures Name Priority Associated Diagnoses Date/Ti me RECONSTRUCTION EXTERNAL AUDITORY CANAL DUE TO INJURY Squamous cell carcinoma of face 12/12/2023 12:37 PM EDT SPLIT GRAFT TRUNK ARM LEG LESS THAN 100SQ CM Squamous cell carcinoma of face 12/12/2023 12:37 PM EDT TYMPANOPLASTY MASTOIDECTOMY WITHOUT OSSICULAR RECONSTRUCTION Squamous cell carcinoma of face 12/12/2023 12:37 PM EDT Health Maintenance Due Date Last Done Comments Albumin/Creatinine Ratio 1963 Hepatitis C Screening 1963 Zoster Vaccines (2 of 3) 06/26/2014 05/01/2014 *SPIROMETRY ONCE FOR ASTHMA-ADULT 07/14/2022 COVID-19 Vaccine ( season) 2023 06/01/2023, 06/09/2022, 12/31/2021, Additional history exists *NEPHROLOGY REFERRAL DUE TO RESISTANT HTN 09/25/2023 Depression Screening 09/18/2024 09/18/2023 GFR 12/04/2024 12/05/2023, 0304/2024, 07/24/2023, Additional history exists DTaP,Tdap,and Td Vaccines (2 - Td or Tdap) 09/14/2026 09/14/2016 Pneumococcal Vaccine: 65+ Years Completed 04/17/2023, 03/09/2016, 08/23/2012 Influenza Vaccine (FLU shot) Completed 05/2023, 05/18/2022, 06/17/2021, Additional history exists GARDASIL-HPV IMMUNIZATION SERIES Aged Out No longer eligible based on patient's age to complete this topic Hepatitis B Aged Out No longer eligi ble based on patient's age to complete this topic MENINGOCOCCAL (MENACTRA/MENVEO) Aged Out No longer eligible based on patient's age to complete this topic documented as of this encounter Medical Devices Implanted Type Area Semiconductors Wafer Breaker Device Identifier Shelf Expiration Date Model / Serial / Lot Connector Nerve 2mm 15mm - [id number] Implanted:Qty: 1 on 04/27/2023 by Dudley Hinojosa MD at OR [facility] Left: Face [employer] [id number] 12/24/2024 [id number] / / [id number] Alloderm 4x7 Thin 0.8-1.2 (28 Units) - [id number] - [id number] Implanted:Qty: 28 on 04/27/2023 by Dudley Hinojosa MD at OR [facility] Left: Face ABBVIE 12/18/2024 [id number] / [id number] / [id number] Sheeting Monisha 2x3in X.020in - [id number] Implanted:Qty: 1 on 04/27/2023 by Dudley Hinojosa MD at OR [facility] Left: Ear ALLIED BIOMEDICAL 09/25/2024 23-700-20 / / [id number] documented as of this encounter Advance Directives Documents on File Type Date Recorded Patient Group Home Paraprofessional Expl anation POLST 04/26/2023 [place] OR [facility] FOR LIFE-SUSTAINING TREATMENT Latest Code [...] Date Activated Date Inactivated Comments Full Code 03/27/2023 2:01 AM 04/03/2023 8:44 [...] Advance Directives occurred with: Patient Full Code 09/11/2020 4:01 PM 09/13/2020 2:54 PM This order reflects the patients wishes and were consensually agreed upon. Question Answer Comments Discussion of Advance Directives occurred with: Patient Healthcare Agents on File Name Relationship [facility] Adult Child Power of Harness Tier Care Teams Infrastructure Director Relationship Specialty Start Date End Date Jad Boone MD [address] [facility] [place] [address] PCP - General Family Medicine 09/20/23 documented as of this encounter
--- OUTSIDE RECORDS SUMMARY | 2024-04-25 23:56 | External Medical Summary | Summary of Care ---
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 [address] [place] [address] Referral ID Status Reason Start Date Expiration Date Visits Re quested Visits Authorized [id number] Encounter Details Date Type Department Care Team (Latest Contact Info) Description 12/12/2023 10:39 AM EDT - 12/16/2023 11:10 AM EDT Hospital Encounter GP2, Kami Kwong [address] [place] [address] Gurvinder Garcia MD [address], [place] [id number] Dudley Hinojosa MD [facility] Pt Handout (on AVS) Discharge Disposition: SNF Allergies Active Allergy Reactions Criticality Noted Date Comments Bee Venom Hives High 03/14/2017 documented as of this encounter (statuses as of 12/16/2023) Medications Medication Sig Dispensed Refills Start Date End Date Status Omeprazole 20 MG Oral Capsule Delayed Release (PriLOSEC) Take 1 Capsule by mouth in the morning. 90 Capsule 1 11/15/2022 Active Vitamin D3 1.25 MG (63588 UT) Oral Capsule Take 1 Capsule by mouth once a week. 12 Capsule 3 01/30/2023 Active Additional Information Patient taking differently:50,000 Units Oral QWEEK,Every Monday, Reported on 05/18/2023 Atorvastatin Calcium 20 MG Oral Tablet (Lipitor)Indicat ions:Coronary artery disease involving sleetmute coronary artery of sleetmute heart without angina pectoris TAKE 1 TABLET, [...] (Lasix)Indicatio ns:Chronic diastolic CHF (congestive heart failure) ([facility]) Take 2 Tablets by mouth in the morning. 180 Tablet 1 08/15/2023 Active Metoprolol Succinate ER 25 MG Oral Tablet Extended Release 24 Hour (Toprol XL)Indications:C hronic diastolic CHF (congestive heart failure) ([facility]) Take 1 Tablet by mouth in the [...] Oral Tablet (Coumadin)Indica tions:PAF (paroxysmal atrial fibrillation) ([facility]) Take 1 Tablet by mouth every evening. 09/28: 10 mg; Otherwise 5 mg every Mon, Mon, Mon; 7.5 mg all other days and as directed by [facility] 100 Tablet 1 10/04/2023 Active [...] heart failure with preserved ejection fraction (HFpEF) ([facility]) Take 1 Tablet by mouth in the [...] Pain, Moderate. 11 Tablet 0 12/16/2023 Active oxyCODONE HCl 5 MG Oral Tablet (Oxy IR) Take 1 Tablet by mouth every 8 hours as needed for moderate or severe pain for up to 5 days. 11 Tablet 0 12/12/2023 4 Discontinued oxyCODONE HCl 5 MG Oral Tablet (Oxy IR) Take 1 Tablet by mouth every 8 hours as needed for Pain, Severe or Pain, Moderate. 11 Tablet 0 12/16/2023 4 Discontinued documented as of this encounter (statuses as of 12/16/2023) Active Problems Problem Noted Date Diagnosed Date [...] fibrillation) 10/18/2018 Coronary artery disease invo lving sleetmute coronary artery without angina pectoris 01/07/2015 [facility] [...] as of this encounter (statuses as of 12/16/2023) Resolved Problems Problem Noted Date Diagnosed Date [...] as of this encounter (statuses as of 12/16/2023) Immunizations Name Administration Dates Next Due COVID-19 mRNA, LNP-s, No Pre serve, 2-Dose Series ([employer]) 11/26/2020,11/05/2020 Pneumococcal Conjugate Vacc, 13 Valent (Prevnar) [...] Sign Reading Time Taken Comments Blood Pressure 160/80 12/16/2023 7:45 AM EDT Pulse 65 12/16/2023 7:45 AM EDT Temperature 36.3 C (97.3 F) 12/16/2023 7:45 AM ED T Respiratory Rate 18 12/16/2023 7:45 AM EDT Oxygen Saturation 95% 12/16/2023 7:45 AM EDT Inhaled Oxygen Concentration - - Weight 91.2 kg (201 lb 1.6 oz) 12/16/2023 5:50 A M EDT Height 193 cm (6' 4") 12/12/2023 10:43 AM EDT Body Mass Index 24.48 12/12/2023 10:43 AM EDT documented in this encounter Functional [...] No 04/26/2023 documented as of this encounter Discharge Summaries * Jana Muñiz MD - 12/16/2023 11:10 AM EDT [address] [address] Admission Date: 12/12/2023 Discharge Date: 12/16/2023 DISCHARGE DIAGNOSES: 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 Other Significant Diagnoses: none CONDITION ON DISCHARGE: stable Cognition: normal DISPOSITION ON DISCHARGE: SNF FOLLOW-UP: Future Appointments Appt Date/Time Provider Department 12/18/2023 6:45 AM [facility] Call Center 12/22/2023 11:00 AM Gurvinder Garcia MD Otolaryngology/Head & Neck/Facial Plastic Surgery 01/18/2024 1:30 PM Shelly Rashid MD Radiation Oncology, [facility] 02/13/2024 9:20 AM Emma Alonzo MD [facility] 06/06/2024 9:30 AM [facility] already scheduled: none Outpatient testing that needs to be arranged: none Inpatient test results pending: surgical pathology MEDICATIONS ON DISCHARGE: MEDICATION UPDATES AT DISCHARGE START taking these medications INSTRUCTIONS bacitracin zinc 500 UNIT/GM ointment Notes to patient: Used on cuts and other skin wounds to help prevent infection Apply topically to affected area 2 times a day. Apply to left ear/neck suture/staple lines and bolsters twice per day. Please keep the bolsters moist. ciprofloxacin 500 MG Tablet Commonly known as: Cipro Notes to patient: Used to treat infections Take 1 Tablet by mouth in the morning and 1 Tablet before bedtime. Do all this for 10 days. Do not start before December 14, 2023. oxyCODONE 5 MG immediate release tablet Commonly known as: Oxy IR Take 1 Tablet by mouth every 8 hours as needed for Pain, Severe or Pain, Moderate. CONTINUE taking these medications INSTRUCTIONS Acetaminophen 325 MG Tablet Commonly known as: Tylenol Notes to patient: Used to ease pain and fever Take 2 Tablets by mouth every 6 hours as needed for Pain, Mild. atorvaSTATin 20 MG Tablet Commonly known as: Lipitor Notes to patient: Used to lower bad cholesterol, lower triglycerides, raise good cholesterol (HDL),and slow the progression of heart disease TAKE 1 TABLET, BY MOUTH, IN THE MORNING. Vuwkegxwy-Hajgmszh-Zzibde Alc 2-14-10.5 % Crea Notes to patient: Used to ease allergy signs, motion sickness, and sleep problems Apply to both lower extremities once a day Furosemide 20 MG Tablet Commonly known as: Lasix Notes to patient: Used to get rid of extra fluid and treat high blood pressure (Diuretic/water pill) Take 2 Tablets by mouth in the morning. guaiFENesin 400 MG Tabs Notes to patient: Used to thin mucus so it can be taken from the body by coughing Take 1 Tablet by mouth every 4 hours as needed (cough or sinus drainage). Lisinopril 10 MG Tablet Commonly known as: [...] by mouth in the morning. Multivitamin Adult Tabs Notes to patient: used to provide vitamins that are not taken in through the diet. Multivitamins are also used to treat vitamin deficiencies (lack of vitamins) caused by illness, , poor nutrition, digestive disorders, and many other conditions Take by mouth every evening. omeprazole 20 MG Cpdr Commonly known as: PriLOSEC Notes to patient: Used to treat or prevent GI (gastrointestinal) ulcers, gastroesophageal reflux disease (GERD; acid reflux), heartburn, syndromes caused by lots of stomach acid, and ulcers of the esophagus Take 1 Capsule by mouth in the morning. Ventolin HFA 108 (90 Base) MCG/ACT Aers Notes to patient: Used to open the airways in lung diseases where spasm may cause breathing problems and prevent breathing problems that happen with exercise Inhale 2 Puffs by mouth every 4 hours as needed for Shortness of Breath. Vitamin D3 1.25 MG (59300 UT) Capsule Notes to patient: Used to [...] nurse or doctor. Original instructions: Take 1 Tablet by mouth every evening. 09/28: 10 mg; Otherwise 5 mg every Mon, Mon, Mon; 7.5 mg all other days and as directed by [facility] ALLERGIES: Bee venom INSTRUCTIONS: Activity: As tolerated Diet: normal diet Code Status: Full Code Indwelling devices: none ADMISSION HISTORY & PHYSICAL EXAM (focused): HISTORY & PHYSICAL - Otolaryngology - Head & Neck Surgery Service [address] [address] Name: Stephen Varela [place] [facility] Date: 12/12/2023 Time: 12:15 PM CHIEF COMPLAINT: Left ear reconstruction HISTORY OF PRESENT ILLNESS: The patient presents today for scheduled surgery. Denies any changes to health since last clinic visit. Denies recent illness, or use of ASA, NSAID's, or any other Anticoagulants. Symptoms remain consistent with what we saw in clinic and the patient is eager to proceed with scheduled surgery. PAST MEDICAL HISTORY: Problem List Patient Active Problem List Diagnosis Code Heart failure, systolic, due to CAD (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) I48.0 Mild intermittent asthma without complication J45.20 Other specified peripheral vascular diseases ([facility]) I73.89 Chronic diastolic CHF (congestive heart failure) (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) 2011 Heart failure, systolic, due to CAD ([facility]) 08/28/2012 ECHO 2012 - Segmental wall abnormality, severe hypokinesis of anterior septum, anterior wall, apex,distal inferior septum, distal inferior wall, and distal posterior wall EF 33% Secondary hypercoagulable state ([facility]) 05/01/2014 PAST SURGICAL HISTORY: Past Surgical History Past Surgical History: Procedure Laterality Date FACE/SCALP DEEP TUMOR REMOVAL, 2 CM OR MORE Left 04/27/2023 EXCISION FACE/SCALP DEEP TUMOR, 2 CM OR MORE performed by Dudley Hinojosa MD [place] [facility] [place] P[place]IC[place] N/A 04/27/2023 ISLAND PEDICLE FLAP performed by Dudley Hinojosa MD at [facility] REMOVAL OF NECK LYMPH NODES Left 04/27/2023 CERVICAL LYMPHADENECTOMY COMPLETE performed by Dudley Hinojosa MD at [facility] REMOVAL OF PAROTID GLAND/TUMOR N/A 04/27/2023 EXCISION PAROTID TOTAL WITH DISSECTION FACIAL NERVE performed by Dudley Hinojosa MD at [facility] REMOVAL OF TONSILS, AGE 12+ REPAIR HIP FRACTURE(S), W/FIXATION Right REPAIR SLIDING HERNIA FAMILY HISTORY: No family history on file. SOCIAL HISTORY: Social History Social History Tobacco Use Smoking status: Former Current packs/day: 0.00 Types: Cigarettes Quit date: 2003 Years since quittin.3 Passive exposure: Past Smokeless tobacco: Never Tobacco comments: smoked, and quit in 2003 Vaping Use Vaping Use: Never used Substance Use Topics Alcohol use: No Drug use: No ALLERGIES: Allergies Bee venom REVIEW OF SYSTEMS: Negative for constitutional, eyes, cardiac, pulmonary, hepatic, renal, digestive, hematologic, epileptic, syncopal, musculo-skeletal, mental health, integumentary, hypertensive, lipid, arthritic, diabetic, thyroid or neurologic disorders (except as listed in the PMH and Problem List). PHYSICAL EXAMINATION: BP: 170 mmHg/76 mmHg (12/12/23 1145) Pulse: 121 (12/12/23 1145) Temp: 36.28 C (12/12/23 1130) Temp Summary: Temp Min: 36.3 C (97.3 F) Max: 36.3 C (97.3 F) SpO2: 99 % (12/12/23 1145) O2 flow rate: Supplemental O2 Delivery: Room Air, None (12/12/23 1146) General: Awake and alert. Ears: Left ear with supra-auricular exposed bone, floppy superior pinna. Lungs: The lungs were auscultated and breath sounds were clear bilaterally. Heart: Ausculation of the heart revealed a regular rate and rhythm without murmur. IMPRESSION: Stephen Varela is a 78 year old male who presents today for scheduled surgery. PLAN: Proceed with left ear reconstruction. Patient to be discussed with Dr. Garcia. Juan Mora MD 12/12/2023 12:15 PM HOSPITAL COURSE (focused): Patient did well during his hospitalization. His YELENA drain had adequately low serosanguineous outputand it was removed on 12/14. Discharge placement was coordinated with care management, and patient was deemed fit for discharge to SNF on 12/15. Patient was discharged with a course of ciprofloxacin and pain medications. He was instructed to follow-up with Dr. Garcia as scheduled. Operations & Procedures: PROCEDURE 12/12/2023: Left auriculoplasty including debridement of left conchal bowl (2 cm x 2 cm), canalplasty, and meatoplasty and ear canal reconstruction Debridement of left EAC cholesteatoma (2 cm x 1 cm) Split thickness skin graft (5 cm x 5 cm) Preparation of recipient site (left external auditory canal) for grafting, excision of canal stenosis, skin, and burring of canal bone (3 cm x 1 cm) Musculoperiosteal flap based on the mastoid tip (post auricular artery, 2 cm x 3 cm) Facial nerve monitoring Debulking of the prior flap which was occluding ear canal Complications: none significant SIGNIFICANT RESULTS: Vital Signs (last recorded): Most Recent Systolic BP: 160 mmHg (12/16/23744) Most Recent Diastolic BP: 80 mmHg (12/16/23744) Pulse: 65 (12/16/23744) Resp: 18 (12/16/23744) Most Recent Temperature: 36.28 C (12/16/23744) Weight: 91.2 kg (201 lb 1.6 oz) (12/16/23 0550) SpO2: 95 % (12/16/23744) O2 flow rate: 1 L/MIN (12/14/23 08) Labs: CHEMISTRY: BUN, Creatinine, GFR Estimated, Sodium, Potassium, Chloride, Carbon Dioxide, Glucose, Calcium (see below for most recent value): Lab Results Component Value Date/Time BUN 27 (H) 12/05/2023 09:10 AM BUN 17 09/16/2020 10:25 AM CREAT 1.2 12/05/2023 09:10 AM CREAT 1.0 09/16/2020 10:25 AM GFRESTIMATED >60.0 09/16/2020 10:25 AM NA 141 12/05/2023 09:10 AM NA 142 09/16/2020 10:25 AM POTASSIUM 4.7 12/05/2023 09:10 AM POTASSIUM 3.8 09/16/2020 10:25 AM CL 104 12/05/2023 09:10 AM CL 104 09/16/2020 10:25 AM CO2 25 12/05/2023 09:10 AM CO2 27 09/16/2020 10:25 AM CA 9.2 12/05/2023 09:10 AM CA 9.1 09/16/2020 10:25 AM BLOOD COUNT: WBC, Hgb, Platelets (see below for most recent value): Lab Results Component Value Date/Time WBC 6.71 08/15/2023 09:41 AM WBC 10.09 09/13/2020 05:39 AM HGB 10.7 (L) 08/15/2023 09:41 AM HGB 13.3 (L) 09/13/2020 05:39 AM PLT 172 08/15/2023 09:41 AM PLT 184 09/13/2020 05:39 AM HEMOGLOBIN: Hgb (see below for last three most recent values): Lab Results Component Value Date/Time HGB 10.7 (L) 08/15/2023 09:41 AM HGB 10.0 (L) 07/24/2023 06:24 AM HGB 10.4 (L) 07/17/2023 06:34 AM HGB 13.3 (L) 09/13/2020 05:39 AM HGB 14.3 09/12/2020 05:34 AM HGB 14.4 09/11/2020 11:58 AM Imaging (focused): none CONSULTS ORDERED: WOUND/OSTOMY CONSULT IP NEUROLOGY CONSULT IP ADULT PHYSICAL THERAPY CONSULT IP ADULT OCCUPATIONAL THERAPY CONSULT IP REFERRING PHYSICIAN: Ref: EMMA ALONZO[[id number]] [facility] [address] [id number] (office) [phone] (fax) PRIMARY CARE PROVIDER: PCP: Emma Alonzo MD [id number] [id number] (office) [phone] (fax) Note: To contact a physician responsible for this patients hospital care, please call [facility] [phone]. documented in this encounter Discharge Instructions * Discharge Instr - AVS* Jana Muñiz MD - 12/12/2023 10:06 PM EDT You may call Dr. Hinojosa of the department of ENT at [phone] during business hours for any questions or test results. For after-hours emergencies call [phone] and have your doctor paged. The information below provides you with the instructions and the list of medications you need to betaking following discharge from the hospital. If you have any questions, please ask before leaving.Please carry this letter with you when you see your doctor in the clinic. If you have questions, you can reach us at the numbers above. Diet: Start with clear liquids (jello, tea, apple juice), avoid dairy products (milk, cheese, pudding, ice cream) and fried, greasy foods. Advance to unrestricted diet as tolerated. If nausea should occur, have clear liquids only until soft foods can be tolerated. Activity: A responsible adult must be with the patient for 24 hours after surgery. Rest today and tomorrow, and then increase activity as tolerated. No strenuous activity for 2 weeks. Driving: n/a. Date you may return to work or school: One week Follow up in [address] Garcia. Special Instructions: Antibiotics (Ciprofloxacin) for 10 days. Pain meds (Oxycodone) as needed for moderate/severe pain. Ointment (Bacitracin) to the incisions and bolsters around your ear twice daily. Please keep the bolsters moist. You do not need to remove the sutures, horace or bolsters, they will be removed at an upcoming appointment. Please try to avoid manipulating the left ear, try to sleep on your right side. documented in this encounter Progress Notes * Jayna Yeh RN - 12/12/2023 11:40 PM EDT Dual Licensed Skin Assessment completed by Jayna Hinkle and Rio Mello RN. The patient is/has a N/A Skin Breakdown (includes non blanchable erythema): Yes. Wound Type: Skin tear, location Left forearm x2, L posterior thigh, R frankel, Right forearm, Blanchable redness bilateral heels and sacrum Wound Ostomy Nurse Notified: Yes - notified via wound care protocol Nursing interventions: T &R q2hr Offload heels Moisture barrier cream documented in this encounter H&P Notes * Kulwant Mora MD - 12/12/2023 12:15 PM EDT HISTORY & PHYSICAL - Otolaryngology - Head & Neck Surgery Service [address] [address] Name: Stephen Varela [place] [facility] [place]: 12/12/2023 Time: 12:15 PM CHIEF COMPLAINT: Left ear reconstruction HISTORY OF PRESENT ILLNESS: The patient presents today for scheduled surgery. Denies any changes to health since last clinic visit. Denies recent illness, or use of ASA, NSAID's, or any other Anticoagulants. Symptoms remain consistent with what we saw in clinic and the patient is eager to proceed with scheduled surgery. PAST MEDICAL HISTORY: Patient Active Problem List Diagnosis Code Heart failure, systolic, due to CAD ([facility]) I50.20, I25.10 [facility] current use of anticoagulant therapy Z79.01 Coronary artery disease involving sleetmute coronary artery without angina pectoris I25.10 PAF (paroxysmal atrial fibrillation) ([facility]) I48.0 Mild intermittent asthma without complication J45.20 Other specified peripheral vascular diseases ([facility]) I73.89 Chronic diastolic CHF (congestive heart failure) ([facility]) I50.32 Essential hypertension with goal blood pressure less than 140/90 I10 Dyslipidemia, goal LDL below 70 E78.5 Atypical migraine G43.009 Other specified anemias D64.89 Suspected sleep apnea R29.818 Mass of left parotid gland K11.8 Primary squamous cell carcinoma of head and neck ([facility]) C76.0 Malignant neoplasm of head, face and neck ([facility]) C76.0 Primary squamous cell carcinoma of parotid gland ([facility]) C07 Past Medical History: Diagnosis Date Atrial fibrillation ([facility]) 2011 Heart failure, systolic, due to CAD ([facility]) 08/28/2012 ECHO 2012 - Segmental wall abnormality, severe hypokinesis of anterior septum, anterior wall, apex,distal inferior septum, distal inferior wall, and distal posterior wall EF 33% Secondary hypercoagulable state ([facility]) 05/01/2014 PAST SURGICAL HISTORY: Past Surgical History: Procedure Laterality Date FACE/SCALP DEEP TUMOR REMOVAL, 2 CM OR MORE Left 04/27/2023 EXCISION FACE/SCALP DEEP TUMOR, 2 CM OR MORE performed by Dudley Hinojosa MD [place] [facility] [place] N/A 04/27/2023 ISLAND PEDICLE FLAP performed by Dudley Hino[place]osa [place] [facility] REMOVAL OF NECK LYMPH NODES Left 04/27/2023 CERVICAL LYMPHADENECTOMY COMPLETE performed by Dudley Hinojosa MD [place] [facility] REMOVAL OF PAROTID GLAND/TUMOR N/A 04/27/2023 EXCISION PAROTID TOTAL WITH DISSECTION FACIAL NERVE performed by Dudley Hinojosa MD [place] [facility] REMOVAL OF TONSILS, AGE 12+ REPAIR HIP FRACTURE(S), W/FIXATION Right REPAIR SLIDING HERNIA FAMILY HISTORY: No family history on file. SOCIAL HISTORY: Social History Tobacco Use Smoking status: Former Current packs/day: 0.00 Types: Cigarettes Quit date: 2003 Years since quittin.3 Passive exposure: Past Smokeless tobacco: Never Tobacco comments: smoked, and quit in 2003 Vaping Use Vaping Use: Never used Substance Use Topics Alcohol use: No Drug use: No ALLERGIES: Bee venom REVIEW OF SYSTEMS: Negative for constitutional, eyes, cardiac, pulmonary, hepatic, renal, digestive, hematologic, epileptic, syncopal, musculo-skeletal, mental health, integumentary, hypertensive, lipid, arthritic, diabetic, thyroid or neurologic disorders (except as listed in the PMH and Problem List). PHYSICAL EXAMINATION: BP: 170 mmHg/76 mmHg (12/12/23 1145) Pulse: 121 (12/12/23 1145) Temp: 36.28 C (12/12/23 1130) Temp Summary: Temp Min: 36.3 C (97.3 F) Max: 36.3 C (97.3 F) SpO2: 99 % (12/12/23 1145) O2 flow rate: Supplemental O2 Delivery: Room Air, None (12/12/23 1146) General: Awake and alert. Ears: Left ear with supra-auricular exposed bone, floppy superior pinna. Lungs: The lungs were auscultated and breath sounds were clear bilaterally. Heart: Ausculation of the heart revealed a regular rate and rhythm without murmur. IMPRESSION: Stephen Varela is a 78 year old male who presents today for scheduled surgery. PLAN: Proceed with left ear reconstruction. Patient to be discussed with Dr. Garcia. Juan Mora MD 12/12/2023 12:15 PM documented in this encounter Consult Notes * Rhianna Saleem, PT - 12/15/2023 12:32 PM EDTAssociated Order(s): ADULT PHYSICAL THERAPY CONSULT IP GENERAL EVALUATION - Physical Therapy [address] [address] Name: Stephen Varela Location: [address] Date: 12/15/2023 Time: 1232 PM Per Chart Review: Stephen Varela is a/an 78 year old male w/ SCC of left temporal scalp involvingpinna s/p excision, left parotidectomy, left neck dissection, and radiation, CAD, HFpEF, severe pulmonary hypertension, paroxysmal AFib, HTN, PVD, DLD. Patient Status: Inpatient Insurance: Payor: [employer] Plan: [employer] CLASSIC 1 PART D MC-LD Product Type: *No Product type* Patient Seen: at bedside Patient Identified By: Name, ID Band and Date Diagnosis: SCC of L neck (12/15/23 1232) Status of treatment: Evaluation completed (12/15/23 1232) Orders: PT evaluation and treatment;OOB (12/15/23 1232) Weight Bearing Status: Weight bearing as tolerated (12/15/23 1232) Precautions: Alarms;Falls;Safety (12/15/23 1232) Total Treatment Time--free text: 24 (12/15/23 1232) Subjective: Consulted with RN prior to entering room. Patient received seated in recliner at bedside. Patient agreeable to working with PT. Past Medical History: Past Medical History: Diagnosis Date Atrial fibrillation (HCC) 2011 Heart failure, systolic, due to CAD ([facility]) 08/28/2012 ECHO 2011 - Segmental wall abnormality, severe hypokinesis of anterior septum, anterior wall, apex,distal inferior septum, distal inferior wall, and distal posterior wall EF 33% Secondary hypercoagulable state (HCC) 05/01/2014 Past Surgical History: Past Surgical History: Procedure Laterality Date FACE/SCALP DEEP TUMOR REMOVAL, 2 CM OR MORE Left 04/27/2023 EXCISION FACE/SCALP DEEP TUMOR, 2 CM OR MORE performed by Dudley Hinojosa MD [place] [facility] [place] N/A 04/27/2023 ISLAND PEDICLE FLAP performed by Dudley Hinojosa MD at [place] [facility] [place] N/A 12/12/2023 ISLAND PEDICLE FLAP performed by Gurvinder Garcia MD [place] [facility] REBUILD OUTER EAR CANAL Left 12/12/2023 RECONSTRUCTION EXTERNAL AUDITORY CANAL DUE TO INJURY performed by Gurvinder Garcia MD [place] [facility] REMOVAL OF NECK LYMPH NODES Left 04/27/2023 CERVICAL LYMPHADENECTOMY COMPLETE performed by Dudley Hinojosa MD [place] [facility] REMOVAL OF PAROTID GLAND/TUMOR N/A 04/27/2023 EXCISION PAROTID TOTAL WITH DISSECTION FACIAL NERVE performed by Dudley Hinojosa MD at [place] [facility] REMOVAL OF TONSILS, AGE 12+ REPAIR HIP FRACTURE(S), W/FIXATION Right REPAIR SLIDING HERNIA REVISE MIDDLE EAR & MASTOID Left 12/12/2023 TYMPANOPLASTY MASTOIDECTOMY WITHOUT OSSICULAR RECONSTRUCTION performed by Gurvinder Garcia [facility] [place] [facility] SK[place] SPLIT GRAFT, TRUNK/ARMS/LEGS N/A 12/12/2023 SPLIT GRAFT TRUNK ARM LEG LESS THAN 100SQ CM performed by Gurvinder Garcia MD [place] [facility] Social History/Disposition Lives with: Caregiver / Attendant (12/15/23 123) Assistance available: Yes (12/15/23 123) Dwelling type: Assisted living facility (12/15/23 123) Entry steps: None (12/15/23 123) Inside steps: None (12/15/23 123) Bedroom location: 1st floor (12/15/23 1232) Bath location: 1st floor full bath (12/15/23 123) Prior Level of Function Reported by: Patient (12/15/23 1232) Ambulation: Ambulatory with device (12/15/23 1232) Ambulatory Device: Rolling walker (12/15/23 123) Devices at home: Rolling walker;Wheelchair (manual) (12/15/23 1232) Observations Consciousness: Alert (12/15/23 123) Orientation: Oriented times 4 (12/15/23 123) Psychosocial: Patient can communicate basic needs;Patient can converse in a social setting (12/15/23 1232) Other Findings: No (12/15/23 123) Sitting Posture: Forward head;Rounded shoulders (12/15/23 1232) Standing Posture: Kyphotic;Forward head;Rounded shoulders (12/15/23 1232) Pain: No complaints of pain Range of Motion Range of Motion: WFL (12/15/23 123) Strength Assessment Strength Assessment: (B LE grossly 4/5) (12/15/23 1232) Transfers Sit-Stand: Contact Guard (12/15/23 1232) Stand-Sit: Contact Guard (12/15/231231) Ambulation: Distance ambulated (feet): 15', then 100' Assistive Device: Rolling walker Assist: Contact Guard Balance Sit (Static): Fair (12/15/231231) Sit (Dynamic): Fair (12/15/231231) Stand (Static): Fair (-) (12/15/231231) Stand (Dynamic): Fair (-) (12/15/231231) Patient and or Family Goal(s): to get well Patient Education Review of Precautions: Safety;Fall (role of PT) (12/15/231231) Safety Awareness: Patient verbalizes insight of current deficits (12/15/231231) Preferred learning method: Combination (12/15/231231) Barriers to learning: Medical Status (12/15/231231) Method of Education: Verbalized to patient (12/15/231231) Topic of Education: Safety with mobility, Goals/plan of care, and Fall prevention Method of Education: Verbal discussion and explanation provided to pt: verbalized understanding andor agreement of this information Treatment Provided: Gait Training 10 minutes: gait training with rolling walker Evaluation Moderate Complexity 14 minutes - [id number]: Patient was cooperative, pleasant, and motivatedduring treatment session. Moderate complexity evaluation performed and 1-2 personal factors or comorbidities were identified that will impact plan of care, including cardiac history and cancer history, current level of function. Patient presents with limitations in strength, bed mobility, transfers, gait, balance, endurance, and safety, which will impact plan of care. These limitations will be addressed by the goals set for this patient. Alarm Status Patient positioned in: Chair (12/15/231231) With: Pressure pad alarm intact and functioning and call aguirre in reach (12/15/231231) Following session patient seated OOB in chair with chair alarm activated and cord plugged into callbell system. Treatment Status: Treatment at bedside (12/15/231231) Time Frame: 10 visits Assessment: Stephen Varela is a/an 78 year old male [place] [facility] [place] dx of SCC of left temporal scalp now s/p excision, left parotidectomy, left neck dissection, and radiation. At baseline, pt lives in an [facility], ambulates household distances with a rolling walker and utilizes a manual wheelchair (self propels) for community mobility. Today, patient engaged in sit to stands and 2 bouts of ambulation with a rolling walker and contact guard assist. Patient provided with verbal cues during gait training in order to address tendency to push rolling walker too far anterior, decreased step length and lesly. Patient demonstrates mild unsteadiness when turning and/or changing directions but verbalizes a good awareness of safety measures, Patient's mobility is limited by decreased B LE strength, decreased balance, overall medical status, and decreased activity tolerance. Patient presents at a regression from functional baseline and will benefit from skilled therapy while in-house in order to address decreased functional mobility, activity tolerance and optimize function. Current medica tion list reviewed. Deficits requiring P.T. treatment needs: Mobility;Balance;Safety;Weakness;Endurance;Lower extremitystrength (12/15/23 1232) Goals: Demonstrate Bed Mobility with: Sit to supine: supervision Supine to sit:supervision Demonstrate transfers with: Sit to stand: supervision Stand to sit: supervision Bed to chair: supervision with least restrictive device Chair to bed: supervision with least restrictive device Demonstrate ambulation: distance: 250 feet with assistive device: least restrictive device and level of assistance: supervision Increase Strength: to 5/5 BLE Increase Balance: Fair + sitting / Fair + standing Increase safety: with all functional mobility Treatment Plan: Bed mobility training, Transfer training, Gait training, Strengthening exercises: BLE, Balance activities, and Educate on safety with mobility Anticipated Frequency (on eval): 1 to 3 times per week (12/15/23 1232) AM PAC Score with Stairs: 18 A portion of this AM-PAC assessment not scored based on functional assessment; rather clinical decision making utilized based on current findings and/or prior level of function. Please refer to future AM-PAC calculations of functional ability as they become available. Rhianna Saleem PT, DPT * Anna Marie Cardona OTR/Kimberly - 12/15/2023 12:13 PM EDTAssociated Order(s): ADULT OCCUPATIONAL THERAPY CONSULT IP GENERAL EVALUATION - Occupational Therapy [address] [id number] Name: Stephen Varela Location: [address] Date: 12/15/2023 Time: 12:13 PM Stephen Varela is a 78 year old male. Patient Status: Inpatient Insurance: Payor: [facility] [employer] Plan: [facility] [employer] CLASSIC 1 PART D MC-LD Product Type: *No Product type* Patient Seen: at bedside, nursing cleared patient for therapy Patient Identified By: Name, ID Band and Date Diagnosis: primary squamous cell carcinoma of head and neck (12/15/231212) Status of treatment: Evaluation completed (12/15/231212) Orders: OT evaluation and treatment;OT OOB (12/15/231212) Weight Bearing Status: Weight bearing as tolerated (12/15/231212) Precautions: Alarms;Falls;Safety;Skin (YELENA drain) (12/15/231212) Total Treatment Time: 23 (12/15/231212) Per Epic: "CHIEF COMPLAINT: Left ear reconstruction HISTORY OF PRESENT ILLNESS: The patient presents today for scheduled surgery. Denies any changes to health since last clinic visit. Denies recent illness, or use of ASA, NSAID's, or any other Anticoagulants. Symptoms remain consistent with what we saw in clinic and the patient is eager to proceed with scheduled surgery. 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), auricular chondritis, external auditory canal stenosis POST-OP DIAGNOSIS: Same PROCEDURE: Left auriculoplasty including debridement of left conchal bowl (2 cm x 2 cm), canalplasty, and meatoplasty and ear canal reconstruction Debridement of left EAC cholesteatoma (2 cm x 1 cm) Split thickness skin graft (5 cm x 5 cm) Preparation of recipient site (left external auditory canal) for grafting, excision of canal stenosis, skin, and burring of canal bone (3 cm x 1 cm) Musculoperiosteal flap based on the mastoid tip (post auricular artery, 2 cm x 3 cm) Facial nerve monitoring Debulking of the prior flap which was occluding ear canal Modifier 22 for increased procedural services. This case required greater than usual effort relatedto the following factors: increased time, increased technical difficulty of procedure, severity of patient's condition, increased physical and mental effort required. Extensive scarring in previouslyoperated field, history of head and neck radiation severely compromising tissue planes and increased risk of wound healing issues. SURGEON: Gurvinder Garcia MD" Past Medical History: Past Medical History: Diagnosis Date Atrial fibrillation ([facility]) 2011 Heart failure, systolic, due to CAD ([facility]) 08/28/2012 ECHO 2011 - Segmental wall abnormality, severe hypokinesis of anterior septum, anterior wall, apex,distal inferior septum, distal inferior wall, and distal posterior wall EF 33% Secondary hypercoagulable state ([facility]) 05/01/2014 Past Surgical History: Past Surgical History: Procedure Laterality Date FACE/SCALP DEEP TUMOR REMOVAL, 2 CM OR MORE Left 04/27/2023 EXCISION FACE/SCALP DEEP TUMOR, 2 CM OR MORE performed by Dudley Hinojosa MD [place] [facility] [place] N/A 04/27/2023 ISLAND PEDICLE FLAP performed by Dudley Hinojosa MD at [place] [facility] [place] N/A 12/12/2023 ISLAND PEDICLE FLAP performed by Gurvinder Garcia MD at [place] [facility] REBUILD OUTER EAR CANAL Left 12/12/2023 RECONSTRUCTION EXTERNAL AUDITORY CANAL DUE TO INJURY performed by Gurvinder Garcia MD at [place] [facility] REMOVAL OF NECK LYMPH NODES Left 04/27/2023 CERVICAL LYMPHADENECTOMY COMPLETE performed by Dudley Hinojosa MD at [place] [facility] REMOVAL OF PAROTID GLAND/TUMOR N/A 04/27/2023 EXCISION PAROTID TOTAL WITH DISSECTION FACIAL NERVE performed by Dudley Hinojosa MD at [place] [facility] REMOVAL OF TONSILS, AGE 12+ REPAIR HIP FRACTURE(S), W/FIXATION Right REPAIR SLIDING HERNIA REVISE MIDDLE EAR & MASTOID Left 12/12/2023 TYMPANOPLASTY MASTOIDECTOMY WITHOUT OSSICULAR RECONSTRUCTION performed by Gurvinder Garcia [place]at [place] [facility] SKIN SPLIT GRAFT, TRUNK/ARMS/LEGS N/A 12/12/2023 SPLIT GRAFT TRUNK ARM LEG LESS THAN 100SQ CM performed by Gurvinder Garcia MD [place] [facility] Social History/Disposition Lives with: Caregiver / Attendant (12/15/23 1213) Assistance available: Yes (12/15/23 1213) Dwelling type: Assisted living facility (12/15/23 1213) Entry steps: None (12/15/231212) Inside steps: None (12/15/231212) Bedroom location: 1st floor (12/15/231212) Bath location: 1st floor full bath (12/15/231212) Prior Level of Function Reported by: Patient (12/15/231212) Ambulation: Ambulatory with device (12/15/231212) Ambulatory Device: Rolling walker (12/15/231212) Grooming: Independent (12/15/231212) Bathing: Independent (12/15/231212) Dressing: Independent (12/15/231212) Feeding: Independent (12/15/231212) Toileting: Independent (12/15/231212) Subjective: Pt was noted to be seated OOB in chair upon arrival and agreeable to therapy services. Pain: No complaints of pain Observations Consciousness: Alert (12/15/231212) Orientation: Oriented times 4 (12/15/231212) Psychosocial: Patient can communicate basic needs;Patient can converse in a social setting (12/15/231212) Sitting posture: Forward head;Rounded shoulders (12/15/231212) Standing posture: Forward head;Rounded shoulders;Kyphotic (12/15/231212) Safety awareness: The Patient verbalizes insight of current deficits.;Needs cueing supervision. (12/15/231212) Other Findings Endurance: Fair (12/15/231212) Light touch sensation: RUE;Impaired;LUE;Intact (Notes new numbness/tingling in first 3 digits (mostly in thumbs) s/p surgery) (12/15/231212) Coordination: LUE;RUE;Gross motor;Intact;Fine motor;Impaired (12/15/231212) Current Functional Status: Bilateral Upper Extremity Hand Dominance: Right (12/15/231212) Range of Motion: WFL (12/15/231212) Strength Assessment: (at least 3+/5 throughout) (12/15/231212) Dressing Upper Body: Supervision (Please comment) (to sahil gown like robe) (12/15/231212) Lower Body: Supervision (Please comment) (to sahil slip on shoes (pt states he typically does not wear socks, but has sock aid if needed)) (12/15/231212) Functional Ambulation Assistive Device: Rolling walker (12/15/231212) Distance in feet:: 100 (+15) (12/15/231212) Level of Assistance: Contact Guard (12/15/231212) OT Transfers Sit-Stand: Contact Guard (from chair) (12/15/231212) Stand-Sit: Contact Guard (to chair) (12/15/231212) Balance Sit (Static): Fair (12/15/231212) Sit (Dynamic): Fair (12/15/231212) Stand (Static): Fair (-) (12/15/231212) Stand (Dynamic): Fair (-) (12/15/231212) Alarm Status Patient positioned in: Chair (12/15/231212) With: Pressure pad alarm intact and functioning and call aguirre in reach (12/15/231212) Following session patient seated OOB in chair with chair alarm activated and cord plugged into callbell system. Patient and Family Goals: to get well Patient Education Education Topic: Role of OT;Plan of care goals (12/15/231212) Review of Precautions: Safety;Fall;Skin (12/15/231212) Method of Education: Verbalized to patient (12/15/231212) Education Provided to: Patient (12/15/231212) Response to Education: Receptive and agreeable to education (12/15/231212) Barriers to learning: Medical status (12/15/231212) Preferred learning method: Combination (12/15/231212) Treatment Provided: Therapeutic Activity: 8 minutes (transfer training, ambulation, balance, endurance, nerve glide education) Evaluation Moderate Complexity 15 minutes - 51849: Patient was cooperative and pleasant during treatment session. Moderate complexity evaluation performed and 3-5 activity limitations were identified, including ADL deficit, functional mobility deficit, decreased strength, decreased endurance, and impaired balance. Minimal or moderate modification of the functional task was necessary to complete the evaluation. Deficits Requiring O.T. Treatment: Deficits requiring O.T. treatment needs: ADL/self-care;Balance;Endurance;Functional mobility;Safety;Upper extremity strength;Weakness (04/26/24 1213) Goals: Demonstrates Self-care at: Feeding: Modified Independent Grooming: Modified Independent Toileting: Modified Independent UE dressing: Modified Independent UE bathing: Modified Independent LE dressing: Modified Independent via AE PRN LE bathing: Modified Independent via AE PRN Demonstrates Bed Mobility at: Supine-Sit: Modified Independent Sit-Supine: Modified Independent Demonstrates transfers at: Sit-Stand: Modified Independent Stand-Sit: Modified Independent Bed-Chair: Modified Independent Toilet: Modified Independent Shower/Tub: Modified Independent Demonstrates functional ambulation at: Assistive device: appropriate device as needed Level of Assistance: Modified Independent Balance: Static Sitting: Fair+ Dynamic Sitting: Fair+ Static Standing: Fair+ Dynamic Standing: Fair+ Strength/ROM: Increase BUE strength 1/2 muscle grade Endurance: Increase endurance to 30/30 minutes in order to improve participation in ADL tasks and general mobility Safety awareness/Cognition: Increase safety awareness during functional mobility Goal Time Frame: 8 visits Assessment: Pt was admitted [place] [facility] [place] the above dx. Pt was pleasant and cooperative during his OT evaluation this date. Upon arrival, pt was seated OOB in chair and agreeable to therapy services. Prior to admission, pt reports that he lives in an [facility] where he completed ADL tasks and mobility independently with use of a rolling walker. Pt states he would utilize a wheelchair for longer distances and was able to manually propel it on his own. Upon exam, pt performed UE/LE dressing task with supervision (as stated above). Sit<>stand transfer and ambulation were completed with contact guard assist for safety. Pt's standing posture noted to be kyphotic at baseline. Pt ambulated 100 ft + 15 ft in room/hallway with use of a rolling walker. Ambulation currently limited due to decreased endurance/fatigue. Following session, pt was noted to return to seated position in chair with call bellin reach. All needs met. Pt reports new numbness/tingling in RUE hand, specifically in first 3 digits (thumb the most). Pt educated on /demonstrated nerve glide techniques this date, with fair return understanding/demonstration noted. Currently, pt presents with difficulty in ADL completion and general mobility secondary to decreased strength, balance, endurance, safety awareness, and overall current medical status. Pt would benefit from acute OT services to increase his independence with ADL tasks and general mobility. In regard to discharge, please consider post-acute care services which may include home health, half-way, outpatient therapy or inpatient rehabilitation. The level ofcare will be determined in collaboration with patient, family/caregiver and care team members. Treatment Plan: Energy Conservation, Safety, Bed mobility training, Functional Ambulation, Transfertraining, Upper extremity strengthening, Balance activities, ADL training, Endurance, and Educate on safety with ADLs and mobility. Anticipated Frequency (on eval): 1 to 3 times per week (12/15/231212) AM-PAC Help From Another Person Eating Meals: A little (12/15/231212) Help From Another Person Taking Care of Personal Grooming: A little (12/15/231212) Help From Another Person To Put On/Take Off Upper Body Clothing: A little (12/15/231212) Help From Another Person To Put On/Take Off Lower Body Clothing: A little (12/15/231212) Help From Another Person Toileting: A little (12/15/231212) Help From Another Person Bathing: A little (12/15/231212) OT AM-PAC Score: 18 (12/15/231212) OT AM-PAC t-Scale Score: 38.66 (12/15/231212) HLM (Highest Level of Mobility) Goal: Level 4 move to chair/commode (12/15/23 0800) A portion of this AM-PAC assessment not scored based on functional assessment; rather clinical decision making utilized based on current findings and/or prior level of function. Please refer to future AM-PAC calculations of functional ability as they become available. * Jace Hardy MD - 12/14/2023 8:15 AM EDTAssociated Order(s): NEUROLOGY CONSULT IP CONSULT - Neurology [facility] [id number] Name: Stephen Varela [place] [facility] G208[place]A Date: 12/14/2023 Time: 8:15 AM Date and Time Neurology Team Notified of Consult: 12/14/2023 at 0702 REQUESTING SERVICE: ENT REASON FOR CONSULT: right extremity weakness following surgery Person Providing History: patient HPI: 78 year old male w/ SCC of left temporal scalp involving pinna s/p excision, left parotidectomy, left neck dissection, and radiation, CAD, HFpEF, severe pulmonary hypertension, paroxysmal AFib, HTN, PVD, DLD. Patient has chronic nonhealing left temporal scalp wound, auricular chondritis, and external auditory canal stenosis. He was admitted to ENT service for surgery. On 12/11, he underwent left auriculoplasty, canalplasty, and meatoplasty, debridement of left EAC cholestatic [place], left temporal scalp skin graft, and temporalis muscle flap placement. When patient awoke from surgery, he noticed bilateral numbness and weakness of first through molder hand digits. Symptoms are worse on left side. He denies paraesthesias. He also reports 4th and 5th digit numbness immediately after surgery that was present briefly but then resolved. He denies any other symptoms. Patient is on warfarin for AFib. Warfarin held perioperatively. He has no known history of CVA. At baseline he can ambulate with a walker but also uses a wheelchair. PAST MEDICAL HISTORY: Past Medical History: Diagnosis Date Atrial fibrillation (HCC) 2011 Heart failure, systolic, due to CAD (HCC) 08/28/2012 ECHO 2012 - Segmental wall abnormality, severe hypokinesis of anterior septum, anterior wall, apex,distal inferior septum, distal inferior wall, and distal posterior wall EF 33% Secondary hypercoagulable state (HCC) 05/01/2014 PAST SURGICAL HISTORY: Past Surgical History: Procedure Laterality Date FACE/SCALP DEEP TUMOR REMOVAL, 2 CM OR MORE Left 04/27/2023 EXCISION FACE/SCALP DEEP TUMOR, 2 CM OR MORE performed by Dudley Hinojosa MD at [place] [facility] [place] N/A 04/27/2023 ISLAND PEDICLE FLAP performed by Dudley Hinojosa MD at [place] [facility] [place] [facility] [place] N/A 12/12/2023 ISLAND PEDICLE FLAP performed by Gurvinder Garcia MD at [place] [facility] REBUILD OUTER EAR CANAL Left 12/12/2023 RECONSTRUCTION EXTERNAL AUDITORY CANAL DUE TO INJURY performed by Gurvinder Garcia MD at [place] [facility] REMOVAL OF NECK LYMPH NODES Left 04/27/2023 CERVICAL LYMPHADENECTOMY COMPLETE performed by Dudley Hinojosa MD at [place] [facility] REMOVAL OF PAROTID GLAND/TUMOR N/A 04/27/2023 EXCISION PAROTID TOTAL WITH DISSECTION FACIAL NERVE performed by Dudley Hinojosa MD at [place] [facility] REMOVAL OF TONSILS, AGE 12+ REPAIR HIP FRACTURE(S), W/FIXATION Right REPAIR SLIDING HERNIA REVISE MIDDLE EAR & MASTOID Left 12/12/2023 TYMPANOPLASTY MASTOIDECTOMY WITHOUT OSSICULAR RECONSTRUCTION performed by Gurvinder Garcia MDa [place] [facility] SKIN SPLIT GRAFT, TRUNK/ARMS/LEGS N/A 12/12/2023 SPLIT GRAFT TRUNK ARM LEG LESS THAN 100SQ CM performed by Gurvinder Garcia MD at [place] [facility] FAMILY HISTORY: No family history on file. SOCIAL HISTORY: Social History Tobacco Use Smoking status: Former Current packs/day: 0.00 Types: Cigarettes Quit date: 2003 Years since quittin.3 Passive exposure: Past Smokeless tobacco: Never Tobacco comments: smoked, and quit in 2003 Vaping Use Vaping Use: Never used Substance Use Topics Alcohol use: No Drug use: No ALLERGIES: Bee venom CURRENT MEDICATIONS: Note that completed medications (per the MAR) continue to display for 24 hours. Ordered medicationsto be given in the future also display. Current Facility-Administered Medications Medication Dose Route Frequency Provider Acetaminophen (Tylenol) tab 650 mg 650 mg Oral Q4H Kulwant Mora MD bacitracin zinc ointment Topical BID(AM/PM) Kulwant Mora MD ciprofloxacin (Cipro) tab 500 mg 500 mg Oral BID(AM/PM) Kulwant Mora MD Enoxaparin (Lovenox) inj 40 mg 40 mg Subcutaneous Daily(AM) Kulwant Mora MD Furosemide (Lasix) tab 40 mg 40 mg Oral Daily(AM) Kulwant Mora MD isolyte-S pH 7.4 infusion Intravenous Continuous Kulwant Mora MD Lisinopril (Prinivil) tab 10 mg 10 mg Oral Daily(AM) Kulwant Mora MD metoprolol succinate XL (toPROL XL) tab 25 mg 25 mg Oral Daily(AM) Kulwant Mora MD omeprazole (PriLOSEC) cap 20 mg 20 mg Oral Daily(AM) Kulwant Mora MD oxyCODONE (Oxy IR) tab 10 mg 10 mg Oral Q4H PRN Kulwant Mora MD oxyCODONE (Oxy IR) tab 5 mg 5 mg Oral Q4H PRN Kulwant Mora MD ROS: Full ROS negative other than stated above. PHYSICAL EXAMINATION: Most Recent Vital Signs: BP: 135 mmHg/70 mmHg (12/14/23233) Pulse: 62 (12/14/23233) Temp: 36.5 C (12/14/23233) Temp Summary: Temp Min: 36.2 C (97.2 F) Max: 36.9 C (98.4 F) SpO2: 94 % (12/14/23233) O2 flow rate: 1 L/MIN (12/14/23233) Supplemental O2 Delivery: Nasal Cannula (12/14/23233) Weight: 121.7 kg (268 lb 3.2 oz) (12/14/23233) Height: 193 cm (6' 4") (12/12/23 1043) Body mass index is 32.65 kg/m. Vital Signs Last 24 Hours: Systolic BP: Most Recent Systolic BP Av.6 mmHg Min: 135 mmHg Max: 173 mmHg Temperature: Most Recent Temperature Av.6 C Min: 36.22 C Max: 36.89 C Pulse: Pulse Av.8 Min: 53 Max: 63 Respirations: Resp Av.6 Min: 16 Max: 20 SpO2: SpO2 Av.4 % Min: 94 % Max: 99 % General Examination: General: In no acute distress. HEENT: Left cranioplasty. Neck: Supple. CV: Regular rate and rhythm. Chest: No accessory muscle use. Abd: Non-distended. Neurologic Examination: Ophthalmoscopic: deferred Mental Status and Orientation: awake, alert, oriented x 3 Memory: intact to recent and remote recall Attention: normal Knowledge:normal Language: no aphasia Speech: no dysarthria Cranial Nerves: CN 2 - no visual defect on confrontation and pupils round, equal, reactive to light CN 3, 4, 6 - extra-ocular movements intact and no nystagmus CN 5 - sensation intact in lower face CN 7 - left forehead palsy, symmetric lower face CN 8 - intact hearing CN 9, 10 - palate symmetric, uvula midline, no deviation CN 11 - shoulder shrug full strength CN 12 - tongue protrudes midline Sensory: Loss of light touch at R thumb, thenar eminence, first and second digits of right hand. Decreased light touch sensation at L R thumb, thenar eminence, first and second digits of right hand. Intact to pinprick throughout. Coordination: intact with finger to nose testing No tremor Gait: deferred due to fall risk Muscle Tone: normal Muscle exam: Hypothenar atrophy b/l. 5/5 strength on shoulder shrug, shoulder abduction, elbow flexion, elbow extension, wrist flexion, and wrist extension. 4/5 strength in R abductor pollicis brevis, 4+/5 in L abductor pollicis brevis, 5/5 strength on thumb flexion, MTP flexion and extension, 4/5 strength in L 2nd digit abduction Reflexes: Brachioradialis Biceps Triceps Patellar Achilles Plantars Flaca's Right 2+ 2+ 2+ 2+ 2+ Not performed Not performed Left 2+ 2+ 2+ 2+ 2+ Not performed Not performed STUDIES: Labs: Lab results within last 7 days (see chart for full results) Units 12/12/23 1441 HGB g/dL 8.9* Hemoglobin AIC Results: Lab Results Component Value Date/Time HEMOGLOBIN A1C - [facility] 5.8 (H) 05/11/2020 09:17 AM HEMOGLOBIN A1C - [facility] 6.0 (H) 05/06/2019 09:13 AM HEMOGLOBIN A1C - [facility] 6.0 (H) 11/19/2018 09:21 AM 08/12 Vit B12 505 IMPRESSION: 78 year old male w/ 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 This is likely a long-standing neuropathy given the presence of thenar atrophy which is now increasingly symptomatic due to positioning/compression in the OR. Recommend workup for secondary causes such as hypothyroidism and light chain disease. Other etiologies on differential diagnosis include perioperative stroke, cervical radiculopathy, and metabolic neuropathy. Stroke and radiculopathy inconsistent with exam given proximal preservation of affected dermatomes/myotomes. No obvious cause of metabolic neuropathy. RECOMMENDATIONS / PLAN: Bilateral wrist splints HS EMG outpatient to assess for b/l carpal tunnel syndrome and polyneuropathy F/u w/ neurology in 3 months after EMG TSH SPEP, Serum free light chains, serum immunofixation Neurology signing off. Please reach out if any questions. The patient was examined with Dr. Ross. Jace aHrdy MD-[facility] Internal Medicine-Pediatrics PGY3 Associated attestation - Hans Abreu MD - 12/14/2023 8:03 PM EDT Attending attestation: I saw and evaluated the patient today. I have reviewed the trainee note and agree. Additional history was obtained from: None. I personally reviewed the following prior external note(s): None. I personally reviewed and analyzed the following tests: -Tests listed in resident's note. We ordered the following tests: None. I personally viewed the following tests: None. Management and/or test interpretation was discussed with: None. Neurology consulted for RUE weakness. The patient has mostly sensory symptoms in the territory of the median nerves R > L. On my exam there is mild atrophy of the dorsal interossei and thenar eminences, which indicates chronicity, and weakness of the FDI and APB bilaterally. 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 He probably has an underlying PN. It is possible that hand symptomswere triggered by positioning during surgery and/or the post-operative period. Please order an outpatient EMG to evaluate for bilateral CTS and underlying PN. Please screen for hypothyroidism and AL as detailed in the resident's note, which are associated with bilateral CTS. 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 The combination ofambulatory dysfunction, bilateral CTS, HFpEF and AFib raise suspicion for hATTR. Genetic testing may be considered in the future. Neurology will sign off. He should follow up with Neurology after DC. Please place a return appointment order. Óscar Ross MD Neurology, Neuromuscular Medicine and Clinical Neurophysiology Nature of the Presenting Problem Undiagnosed problem with uncertain prognosis: Moderate Amount and/or Complexity of Data to be Reviewed and Analyzed Test & Documents (T&D) Total T&D Category points Review of prior external note(s) from each unique source 0 x1 = 0 3 Review of the result(s) of each unique test 3 x1 = 3 Ordering of each unique test 0 x1 = 0 Assessment requiring an independent historian(s) (IHx) IHx Total Category points An individual (parent, guardian, surrogate, spouse, witness) who provides a history in addition to the patient 0 or 1 max = 0 0 Independent interpretation of tests (Intpr) Intpr Total Category points Independent interpretation of a test performed by another physician or other qualified health customer care specialist (not separately reported) 0 or 1 max = 0 0 Discussion of management or test Interpretation (DISC) DISC Total Category points Discussion of management or test interpretation with external physician or other qualified health customer care specialist (not separately reported) 0 or 1 max = 0 0 3 or more T&D: Moderate Risk of Complications and/or Morbidity or Mortality of Patient Management Elastic bandages: Minimal Medical Decision Making: Moderate * Elizabeth Miller RN - 12/13/2023 9:14 AM EDTAssociated Order(s): WOUND/OSTOMY CONSULT IP Wound / Ostomy Nurse Consult Note Wound ostomy consulted to assess skin injuries noted on admission Recommendations: Turn and reposition Q2hrs Keep heels elevated off the bed Allevyn foam dressings to UE skin tears, avoid tape on skin Wound Ostomy asked to see this 78 year old patient admitted from home for planned surgery with ENT PMH significant for Past Medical History: Diagnosis Date Atrial fibrillation ([facility]) 2011 Heart failure, systolic, due to CAD ([facility]) 08/28/2012 ECHO 2011 - Segmental wall abnormality, severe hypokinesis of anterior septum, anterior wall, apex,distal inferior septum, distal inferior wall, and distal posterior wall EF 33% Secondary hypercoagulable state ([facility]) 05/01/2014 Wound history/prehospital care: none Current Skin Wound Care: static pressure redistribution mattress, heel elevation, and turn and reposition Wound Assessment:Seen on GP2 awake, alert, lying in bed. Nursing staff at the bedside. Several skintears to bilateral UE's. Rolls on side for sacral skin assessment. Sacrum/buttocks intact w/o erythema. Heels elevated on pillows, intact Educated patient on importance of frequent repositioning and offloading of bony prominences, including elbows, heels, sacrum/buttocks, hips, in order to prevent pressure related skin injury. documented in this encounter Nursing Notes * Domonique Whipple RN - 12/14/2023 8:40 AM EDT Pt refused am lasix. Stated reason beacause he may be going home today and does not want have to toilet frequently en route home. Also, pt stated takes coumadin at home and questioned why he is not receiving coumadin here. Darci morfin made aware via TT. * Regine Vela RN - 12/12/2023 11:27 PM EDT Post Anesthesia Care Unit Transport Note [address] [address] Dept[address] Stephen Varela Transported from PeriOp to : [id number] Time: 2325 Care of patient transferred to: Jayna Yeh RN Transported via: Bed Belongings with Patient: YES Pulse : 66 Temp : 36.1 BP : 159/82 Respirations : 20 Pulse Ox : 95% O2 : 40% face tent SCDS: On but not activated/no machine * Araceli Santoyo RN - 12/12/2023 11:00 PM EDT PERIOP TO IP HANDOFF COMMUNICATION NOTE [address] [address] Name: Stephen Varela AGE: [id number] year old [place] [facility] [place]: 12/12/2023 Attention to: CRISTO Paredes2 Report from: Araceli Santoyo RN Patient arriving via: Bed Time of call: 11:01 PM Phone Ext: [phone] Reason for SBAR (Situation, Background, Assessment, Recommendation) handoff: Transfer Sending to: GP208 Emotional/Personal Events & Special Needs: 78 year old man had 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 Today he had reconstruction of the L ear with pedicle flap andskin graft from the L lateral thigh to the L ear. He has a single YELENA drain with scant drainage. He was straight cathed aat the end of the procedure and is due to void at 0330. His complaint has been t ingling in both hands. ENT is aware. Prescriptions in chart: No Code Status: Full Code Safety Concerns: Post Anesthesia Allergies: Bee venom PMH: Past Medical History: Diagnosis Date Atrial fibrillation ([facility]) 2011 Heart failure, systolic, due to CAD ([facility]) 08/28/2012 ECHO 2011 - Segmental wall abnormality, severe hypokinesis of anterior septum, anterior wall, apex,distal inferior septum, distal inferior wall, and distal posterior wall EF 33% Secondary hypercoagulable state ([facility]) 05/01/2014 PSH: Past Surgical History: Procedure Laterality Date FACE/SCALP DEEP TUMOR REMOVAL, 2 CM OR MORE Left 04/27/2023 EXCISION FACE/SCALP DEEP TUMOR, 2 CM OR MORE performed by Dudley Hinojosa MD [place] [facility] [place] PEDICLE FLAP N/A 04/27/2023 ISLAND PEDICLE FLAP performed by Dudley Hinojosa [place] [facility] [place]OVAL OF NECK LYMPH NODES Left 04/27/2023 CERVICAL LYMPHADENECTOMY COMPLETE performed by Dudley Hinojosa MD at [facility] REMOVAL OF PAROTID GLAND/TUMOR N/A 04/27/2023 EXCISION PAROTID TOTAL WITH DISSECTION FACIAL NERVE performed by Dudley Hinojosa [place] [facility] [place] REMOVAL OF TONSILS, AGE 12+ REPAIR HIP FRACTURE(S), W/FIXATION Right REPAIR SLIDING HERNIA Isolation: Isolation: Procedure: Muscle flap and skin graft to L ear, Debridement. Type of Anesthesia: General Block: NA IV intake: 2000 mL EBL: OR: 50 mL PACU: 0 mL Urine output: OR 700 mL PACU 0 mL IUBC (Garner): Incision location: L ear, L thigh Dressing location: same Time of last skin assessment: 2199 Pressure injuries or areas of concern: NA Lines: Peripheral Line Anterior;Right Hand 18 Gauge (Active) Status Fluids infusing 12/12/232210 Phlebitis Scale 0 12/12/232210 Infiltration Scale 0 12/12/232210 Site Description (Other) Without redness, swelling or drainage 12/12/232210 Site Intervention None required 12/12/232210 Dressing Assessment Dressing clean, dry, and intact 12/12/232210 Dressing Intervention None required 12/12/231217 Number of days: 0 Peripheral Line Left Arm 20 Gauge (Active) Status Capped/Locked 12/12/232210 Phlebitis Scale 0 12/12/232210 Infiltration Scale 0 12/12/232210 Site Description (Other) Without redness, swelling or drainage 12/12/232210 Site Intervention None required 12/12/232210 Dressing Assessment Dressing clean, dry, and intact 12/12/232210 Number of days: 0 Drain (Active) Number of days: Drain Ricardo Alcala Left;Lower;Posterior Head (Active) Number of days: 0 Arterial Line Left Radial (Active) Status Alcohol disinfectant cap;Good Wave Form 12/12/232210 Site Description Without redness, swelling or drainage 12/12/232210 Site Intervention None required 12/12/232210 Dressing Assessment Dressing clean, dry, and intact 12/12/232210 Number of days: 0 Vital Signs: BP: 166/61 (12/12/232199) Temp: 36.8 C (98.2 F) (12/12/232121) Pulse: 58 (12/12/232214) Resp: 16 (12/12/232214) SpO2: 93 % (12/12/232214) O2 flow rate: 4 L/MIN (12/12/232214) Time of last pain medication: 2155 Med: Dilaudid Time of last antibiotic: 1734 Med: Ancef Time of last antiemetic: 2005 Med: Zofran [employer]EDGE [employer] ENGINEER: no Drips: no Neurological: Speech: Slurred (12/12/232244) Level of Consciousness: Alert (12/12/232244) RUE Motor Strength: 5-Active movement with full resistance (12/12/232244) RLE Motor Strength: 5-Active movement with full resistance (12/12/232244) LUE Motor Strength: 5-Active movement with full resistance (12/12/232244) LLE Motor Strength: 5-Active movement with full resistance (12/12/232244) Coma Score: 15 (12/12/232244) Respiratory: Respiratory WNL: X - Exceptions to WNL as documented below (12/12/232244) Cough: None (12/12/232244) Depth/Rhythm: Regular (12/12/232244) Dyspnea Occurance: None (12/12/232244) Effort: Unlabored (12/12/232244) Oxygen therapy/ Mechanical vent Supplemental O2 Delivery: Face Tent (12/12/232244) O2 %: 40 % (12/12/232244) O2 flow rate: 4 L/MIN (12/12/232214) Cardiac: Cardiovascular WNL: X - Exceptions to WNL as documented below (12/12/232244) Rhythm: AFib (12/12/232244) Extremities: +Sensation;Right;Left;Upper;Lower;Other-Describe (Tingling both hands) (12/12/232244) Pulses Right: Dorsalis Pedis +;Radial + (12/12/232244) Pulses Left: Dorsalis Pedis +;Radial + (12/12/232244) Edema Location: Lower extremities;Both (12/12/231145) Edema Assessment: +4 - Description (12/12/231145) Capillary Refill: 3 sec (12/12/232244) GI: GI WNL: WNL - within normal limits (12/12/232244) : WNL: WNL - within normal limits (12/12/232244) Due to Void: 0330 Integumentary:Integumentary WNL: X - Exceptions to WNL as documented below (12/12/232244) Skin Description: Warm;Dry (12/12/232244) Skin Color: Pale (12/12/232244) Skin Lesion: Ecchymosis (12/12/232244) Family updated on transfer: yes Additional Assessment Information: Transporing via bed * Lonnie Pope RN - 12/12/2023 12:02 PM EDT Dual Licensed Skin Assessment completed by Sagar Pope RN and Dilcia Hollis RN The patient is/has a N/A Skin Breakdown (includes non blanchable erythema): Yes. Wound Type: Other, location scattered ecchymosis, edema to BLE Wound Ostomy Nurse Notified: No - care per ordered treatment Nursing interventions: continue to monitor. * Cam Robbins RN - 12/11/2023 10:08 AM EDT NO ANESTHESIA EVAL REQUESTED PER CASE DOCUMENTATION. PREOP PATIENT INFORMATION AND EDUCATION: MEDICATION INSTRUCTIONS: The day of surgery/procedure, you may TAKE the following medications with a sip of water up to 2 hours prior to your arrival time: Furosemide Metoprolol Tylenol if needed Atorvastatin Omeprazole Ventolin inhaler as directed if needed-bring this the day of surgery AVOID/ DO NOT TAKE any medications the morning of surgery/procedure that are not listed above. AVOID / DO NOT TAKE the following medications the morning of surgery/procedure: Lisinopril STOP taking the following medications the noted number of days prior to surgery/procedure unless otherwise specified by your surgeon: Please follow surgeon's instructions regarding use of Aspirin, Coumadin, Plavix, Eliquis, and any other blood thinner including NSAIDs (non-steroidal anti- inflammatory drugs, eg, Advil, Ibuprofen, Motrin, Aleve, Naproxen); if you have any questions regarding your anticoagulation therapy please contact your surgeon's clinic. Please verify any proposed stoppage of your anticoagulation therapy with the agent's prescribing provider. 10 days prior to surgery/procedure Stop all Herbal supplements, Green Tea, Turmeric, Melatonin, CBD, THC, etc. Stop all Vitamins (including Vitamin E) 24 hours prior to surgery/procedure DO NOT consume any alcohol. DO NOT use medical marijuana. DO NOT smoke or use tobacco products of any kind after midnight prior to surgery. *Using any of these products may increase your risks of procedural complications. IF IT IS LESS THAN RECOMMENDED STOPPAGE TIME PLEASE STOP AT TIME OF NOTIFICATION. FASTING RECOMMENDATIONS: To reduce risk, it is important for all elective surgery patients to follow the specific fasting guidelines listed below. If you have received more stringent guidelines, please follow the MOST RESTRICTIVE guidelines that you have been provided. DO NOT EAT after midnight on the night prior to your surgery date. You are allowed to drink clear liquids up to two hours prior to arrival time to the hospital or surgery center. Examples of clear liquids include water, clear fruit juice without pulp, clear carbonated beverages, clear tea, and black coffee. Any drinks given by your surgical service take as directed. /pediatric patients who currently drink breast milk, formula, and non-human milk must not eat after midnight. These patients are allowed to drink only the liquids listed below up to two hours prior to arrival time to the hospital or surgery center: Ingested Material Minimum Fasting Time Clear liquid After midnight up to 2 hours prior to arrival time Breast milk Up to 4 hours prior to arrival time Infant formula Up to 6 hours prior to arrival time Non-human milk Up to 6 hours prior to arrival time THE DAY BEFORE YOUR SURGERY: -Drink plenty of fluid the day before your surgery. Contact your surgeon's office if you develop any of the following within 2 weeks of surgery: A cold Infection Fever Shingles Chicken pox or exposure to chicken pox Open areas such as scrapes, cuts, billings or other skin conditions Rashes GENERAL INSTRUCTIONS FOR PREPARING FOR SURGERY: BATHING INSTRUCTIONS: Bathe the evening prior to and the morning of surgery/procedure. Cleanse your body using ONLY anti-bacterial soap (eg, Dial, Safeguard) or any specific soap/cleansers and instructions provided by your surgeon (eg, Chlorhexidine). -You should brush your teeth the morning of surgery. Do NOT apply any lotions, powders, sprays, creams, oils, make-up, or deodorants after bathing. No hairspray, or nail tajik on fingers or toes. Day of surgery/procedure do not use tampons. If you wear contacts wear your eyeglasses if available otherwise bring your contact supplies with you to remove them prior to your surgery/procedure. If you wear glasses or dentures, please bring cases in which you can store them during your surgery. Please remove all piercings and jewelry and leave them at home. Wear comfortable and loose clothing. -Please leave all valuables at home. -If you use a CPAP and are staying overnight, please bring your mask and tubing with you to the hospital. -If you use an assistive mobility device (walker, cane, etc), please label it with your name and bring to hospital. -An escort team truck driver is required if you are being discharged the same day of the surgery. You should have a responsible adult over the age of 18 [address] you home. This person should be present with youin the hospital at the time of discharge and for the first 24 hours after the surgery to support your needs. If you are taking a taxi home, you must have your responsible libertarian accompany you in the taxi ride home at the time of discharge. OR times subject to change. Please check voiceNeedlil messages the day/evening before your surgery forany updates. PRE-OP: You will be taken to the pre-op area where your vital signs (blood pressure, pulse and temperature)will be taken. Any preparations that need to be done will be done there. When it is time for your surgery, you will be taken to the operating room. PARENTS OF PEDIATRIC PATIENTS WILL BE ALLOWED TO STAY WITH THEIR CHILDREN UNTIL THEY ARE ESCORTED TO THE OPERATING ROOM OUTPATIENT SURGERY PATIENTS: After your surgery you will be taken to the Same Day Surgery Unit when you are awake and will go home from there. You will get instructions about your home care before you leave. Arrange to have someone drive you home from the hospital. You may not drive for 24 hours after anesthesia. You must havean adult stay with you at home for 24 hours after your operation. This is very important. If you are not able to comply with these guidelines, your Short Stay surgery cannot be done. ADMISSION PATIENTS: After your stay in the recovery area, you will be taken to your room. Your family may visit you in your room based on current visitation policy. If a next day discharge is expected, it is important to make arrangements for a team truck driver to take you home. Please be aware our visitation policies are subject to change Professionals, attendants, caregivers or family members are allowable visitors for patients with intellectual, developmental or cognitive disabilities, communication barriers or behavioral concerns. Because patients' and families' needs vary, they will be taken into account when applying visitation restrictions. [facility]: Contact # [phone] Directions to Surgical Suite in from the Twyla Entrance The Surgical Waiting Room can be found in the Lobby of [facility]. Enter through Main Lobby Entrance and the Waiting Room is directly in front of you. Proceed to check in and give them your name. Directions to Surgical Suite from the East Entrance Enter the East entrance and follow the hallway to the J elevator. Take the J elevator up to Level 1. Continue down the long hallway to the main [place]yla Lobby. The Surgical Waiting Room will be on your Right. Proceed to check in and give them your Name. Directions to Surgical Suite from the Parking Garage Enter the AM lobby and proceed down the beyer to the left. At the end of the beyer, turn right. Continue down the long hallway to the main [place]yla Lobby. The Surgical Waiting Room will be on your Right. Proceed to check in and give them your Name. THANK YOU FOR CHOOSING [facility]! Pre-operative chart review completed-instructions provided based on current medication list in [facility] Presurgery instructions sent to patient via Trilliant message. 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 This case required greater than usual effort relatedto the following factors: increased time, increased technical difficulty of procedure, severity of patient's condition, increased physical and mental effort required. Extensive scarring in previouslyoperated field, history of head and neck radiation severely compromising tissue planes and increased risk of wound healing issues. EAC meatoplasty/canalplasty and additional skin grafting procedure performed separately by Dr. Garcia. Surgeon: Dudley Hinojosa MD Assistants: Kin Mora MD Anesthesia: General endotracheal anesthesia Operative Findings: 3x3cm left temporal scalp/helical root defect with exposed calvarium. 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 Combined layered reconstruction of defect temporalis muscle transposition, postauricular cervicofacial advancement flap, and split thickness skin grafting. Indications and History: Stephen Varela is a 77 year old male with history of HF, Afib on warfarin, DLD, HTN, obesity; and locally advanced left preauricular SCC. He is s/p left wide local excision, left parotidectomy, left neck dissection, submental island flap reconstruction, and STSG to the left ear canal on 04/27/23. He exhibited delayed wound healing and chronic wound dehiscence during adjuvant radiation treatment. He ultimately had a good treatment response and currently shows no evidenceof disease. Dehiscence superior to the helical root is stable with exposed bone. He also has significant narrowing of the external auditory canal. He presents today for a combined reconstructive surgery to address the chronic wound/exposed bone, as well as narrowing of the external canal. He recently developed an auricular chondritis that shows evidence of auricular cartilaginous destruction thatwill require debridement for source control and to promote healing and re-establish structure. The indications, risks, and benefits of surgery were discussed. Specifically discussed risks including bleeding, infection, scar, damage to surrounding structures, need for additional procedures, wound dehiscence or other chronic wound healing issues, re-stenosis of the external canal, pain, numbness, facial nerve or other cranial nerve injury. Reviewed expected postoperative course and restrictions. The patient is at increased risk of wound healing complications due to history of head and neck radiation. The patient wished to proceed. Description of Operation: The patient was brought to the operating room and general endotracheal anesthesia was induced. The patient was placed in the supine position and the bed was turned 180 degrees. Lower extremity sequential compression devices were in place. The planned incision was marked in injected with 1% lidocaine with epinephrine 1:100,000. The patient was prepped and draped in usual sterile fashion. A surgical timeout was performed confirming correct patient and surgical site. The temporal scalp defect was 3x3cm and to the depth of th calvarium over that entire area. A combined reconstructive plan was formulated after assessing the relative viability and mobility of the adjacent tissues. This included combined layered reconstruction of defect temporalis muscle transposition, postauricular cervicofacial advancement flap, and split thickness skin grafting. Prior to the reconstruction, the left auricular chondritis and cartilaginous destruction was addressed for source control and to promote healing. Excisional debridement was carried out over an area of 1x4cm and nearly full thickness of the auricle, sparing the postauricular skin. There was already skin breakdown along the superior helix along the antihelix. This was extended via sharp incision tothe anti-tragus inferiorly. Nonviable skin, subcutaneous tissue and cartilage was debrided to healthy bleeding tissue. The ear was irrigated copiously and hemostasis was ensured. The ear was later repaired at the conclusion of the case to re-establish structural integrity. The temporal scalp wound bed was prepared for grafting. The edges of the defect were sharply excised with narrow margin due to re-epithelialization along the borders (in the setting of delayed reconstruction). The wound edges appeared healthy and viable. The exposed calvarium cortical bone was burred in patial thickness to promote healthy bleeding, taking care not to enter the mastoid airy cells.The size of the defect was 3.0x3.0cm. An incision was made extending posteriorly and then inferiorly along the postauricular scalp and neck skin. This was raised in a plane just above the periosteum before transitioning to a suprafascialmuscular plane at the SCM and occipital muscle attachments. A postauricular incision was also made to gain access for the meatoplasty/canalplasty portion of the procedure. The flap was raised over anarea of [id number]. With the afforded mobility, the flap could be advanced to cover at least half of the area of the exposed bone defect. This decreased the size of the defect substantially for the combined muscle transposition flap and skin grafting anteriorly. Given prior radiation and wound dehiscence, and concern for tissue mobility and wound healing, this combined reconstructive approach was favored over making a much larger inferior extension of the posterior cervicofacial flap, which would drastically increase the size of the surgical field, length of the suture line, and tension on at least part of the suture line. The flap was advanced and tension sutures were placed along the proximal flap near the base to allow minimal tension closure distally. The cervicofacial and postauricular suture lines were closed with deep 3-0 vicryl suture. The cervicofacial flap was closed with suturesfor skin closure inferiorly, and 3-0 prolene running and interrupted simple skin closure at the distal aspect. The postauricular and neck incision was closed with 3-0 prolene running and interrupted skin closure. A 7 fr round drain was placed in the surgical bed under the cervicofacial flap and secured with 3-0 nylon suture. The anterior root and superior fanned out portion of the temporalis muscle were intact following the prior operation, and were noted to have a healthy appearance with the current exposure. The underlying periosteum and overlying temporoparietal fascia were also intact on each side of the muscle. The superior scalp skin was elevated off of the temporalis fascia above its insertion point to the calvarium. The flap was then raised with periosteum off of the calvarium, and the superior/posterior margin of the muscle was released from the calvarium attachments. A broad anterior and inferior pedicle was maintained to preserve blood supply to the muscle. The anteriorly and inferiorly based muscle flap was elevated over 6x3cm and transposed inferiorly to cover the remaining region of exposed bone. The flap was secured to the surrounding subcutaneous tissue with 3-0 vicryl suture. A 3x3cm split-thickness skin graft was harvested from the left thigh using a dermatome set at 0.014inch thickness. The graft was transferred to the left temporal scalp and temporalis flap recipient site, trimmed to fit the defect, and secured into place with interrupted and running 4-0 chromic suture. Small pie crusting incisions were made for drainage. A few 5-0 fast gut tacking sutures were placed to secure the central aspect of the graft to the wound bed. A xeroform bolster was secured using a running 3-0 prolene circumferential stitch. Note a separate skin graft was harvested and inset by Dr. Garcia for reconstruction of the ear canal. Complex closure of the left auricular defect was required to re-establish structural integrity and close the open wound. The helical rim cartilage was secured to the conchal bowl cartilage with 4-0 PDS suture in interrupted mattress pattern. The anterior auricular skin was then closed with running and interrupted 4-0 chromic sutures. This concluded the procedure. There were no complications. The patient was returned to our anesthesia colleagues, awakened, and transported to PACU in stable condition. Drains: 7 fr round drain, left postauricular Estimated Blood Loss: 30 mL Fluids: per anesthesia record Urine Output: per anesthesia record. Specimens: None Disposition: The patient was transferred to the Post-Anesthesia Care Unit. Complications: None Patient Condition: Stable Attestation: I performed the procedure I was present and scrubbed for the entire procedure cc: Professional Reimbursement and Compliance documented in this encounter Miscellaneous Notes * Ancillary Progress Note - Marielle Gonzalez MSW - 12/16/2023 9:34 AM EDT CARE MANAGEMENT - ADULT [place] [facility] [place] [address] Name: Stephen Varela [place] [facility] [place] Date: 12/16/2023 Time: 9:34 AM The following coordination of care and discharge plan has been coordinated with the care team, patient, family and/or caregiver according to the patients needs and preferences. Discharge Final Discharge Plan (Complete only at time of Discharge): SNF (12/16/23 0934) Destination - Admitted Since 12/12/2023 Service Provider Selected Services Address Phone Fax Patient Preferred Last Updated [facility] [address] [place] [phone] -- Marielle Gonzalez MSW 12/16/2023 0933 Destination - Episodes Includes Destination providers with selected services from the active episodes listed below Level 2 Complex Case Management Episode start date: 07/12/2023 There are no active outsourced providers for this episode. Narrative: Per primary nurse BRENDA, pt's [facility] auth was denied SNF level of care. LAILA made pt aware at bedside of above. Pt then initially stated he would like to return to [facility], and adamantly stated he wasleaving today. LAILA spoke with Yas at [facility] at bedside with pt, who reported they would review with admissions team to confirm pt's return. SW then received a call from Yas who stated pt requested to go to [facility] self pay and is accepted at SNF level of care. Pt's w/c antoinette claimed for 1130. Reviewed IMM with pt and informed that patient is medically stable for discharge, however, may have 4 hours to consider whether they want to appeal discharge. Pt waived waiting those 4 hours and wishes for discharge to occur prior to that time. Discharge destination time-out called during BOOST rounds, all parties agreeable with transition plan of care. 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 Intakes have ranged from 0-60% since admission, but reports no changes to intake prior to admission. Voices eating more prior to admission. Ptreports taking supplements prior to admission - he is hopeful to be discharged today, but is open to supplements to help with wound healing while admitted. Denies N/V, diarrhea. Reports constipation - last bowel movement noted on 12/11. Denies chewing issues. Relays some issues swallowing on his left side, but voices no coughing or choking on food or liquids. Denies weight loss. Weight gain noted since admission - may be related to fluid changes given shifts in edema status. Anthropometrics Measurements Admission weight (for dietitians): 114.3 kg Height: 193 cm (6' 4") (12/12/23 1043) Weight: 120.9 kg (266 lb 10.1 oz) (12/15/23 0320) BMI: 31.21 (12/12/23 1043) Usual Body Weight or EDW for Dialysis Patients: 114 kg per pt, 99-110 kg per EHR Diet: Regular Previously followed diet: Regular Food Allergies/Intolerances: No known Oral Nutrition Supplement (ONS): None Pertinent medications/vitamins/minerals/supplements: isolyte-s infusion, cipro, furosemide, omeprazole RISK FACTORS: Adult Energy Intake: No significant decrease Interpretation of Weight Change: Change likely secondary to fluid Skin: Compromise with nutrition-related implications Left ear reconstruction, flap NUTRITION RISK CATEGORY: Nutrition Risk Category: Low/Moderate (0-1 factors) Clinical Nutrition Recommendations: Diet: Continue current nutrition plan NUTRITION INTERVENTION/PLAN: Orders: Oral nutrition supplement added Boost (1 cup provides 240 calories, 10 grams protein, 37 grams carbohydrate) BID Will follow and adjust nutritional plan as medical condition requires. Please contact for change(s)in patient condition requiring earlier intervention. Hiwot Harding RDN, LDN Clinical Dietitian Extension: [phone] [employer] * Care Plan - Jelena Duran RN - 12/15/2023 5:50 AM EDT Clinical Goal(s): Patient will maintain adequate pain control during the shift (12/14/230) Possible barriers to meeting goal(s)/advancing plan of care: s/p cervicofacial advance flap with skin grafting Stability of the patient: Moderately stable - low risk of patient condition declining or worsening Summary regarding today's goal(s): Met: patient reported adequate pain control during the shift w/ use of scheduled tylenol Recommendations: continue current pain management techniques * Ancillary Progress Note - Ciarra Morin RN - 12/14/2023 10:47 AM EDT CARE MANAGEMENT - ADULT INITIAL [place]CRE[place]ING [facility] [place] [address] Name: Stephen Varela [place] [facility] [place] Date: 12/14/2023 Time: 10:48 AM Discussed patient with the interdisciplinary care team. This Ballpoint Pen Assembly Machine Operator performed a chart review and met with Pt at bedside to complete admission screen and assessed needs for transition planning. The director career role and services were explained and emotional support was provided. Chief Complaint: No chief complaint on file. Prior Living Arrangements What was your living situation prior to admission/observation?: At an Assisted Living Center (12/14/231038) Living Quarters: Assisted Living (12/14/231038) History of falling: No (12/14/23799) Prior Level of Functioning Describe the patient's ability prior to admission/observation to perform ADLs: Requires assistance (12/14/231038) Requires assistance with: Bathing (12/13/23 0114) Describe the patient's mobility status prior to admission: Patient requires assistance with ambulation (12/13/23 0114) Patient uses assistive device: Yes (12/14/231038) If yes, choose:: Walker;Wheelchair (12/14/231038) Caregiver Information Patient Contacts Name Relation Home Work Mobile Brody Varela Adult Child [phone] Dorothy Varela (DIL) Other - (no specific identity) [phone] Brody Varela is the patient's surrogate decision maker Risk Stratification/Psychosocial/Care Gaps Readmission Risk Score: 13.52 (12/14/23 0800) AM-PAC Score With Stairs : 12 (12/14/23799) Prior to Admission Services Outpatient Ballpoint Pen Assembly Machine Operator: No care team truck driver to display Patient/Family Expectations: Discussed at IDT . Not medically ready for D/C. Needs SNF. Does live at [facility]. Pt would like to go to next level of care SNF. Pt lived at the assisted [facility], Referral sent to [facility]. For further screening information, please refer to the Care Management flow document. * Progress Notes - Post-Op [place]ola - Darci Morfin PA-C - 12/14/2023 6:57 AM EDT PROGRESS NOTE - POST OP - Otol[place]ology [facility] [place] [place] [address] Name: Stephen Varela [place] [facility] [place] Date: 12/14/2023 Time: 6:57 AM SUBJECTIVE: Patient resting comfortably overnight He feels right hand is numb/weak on right index and third finger which started yesterday. 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) POA = Present On Admission OBJECTIVE: Most Recent Vital Signs: BP: 135 mmHg/70 mmHg (12/14/23233) Pulse: 62 (12/14/23233) Temp: 36.5 C (12/14/23233) Temp Summary: Temp Min: 36.2 C (97.2 F) Max: 36.9 C (98.4 F) SpO2: 94 % (12/14/23233) O2 flow rate: 1 L/MIN (12/14/23233) Supplemental O2 Delivery: Nasal Cannula (12/14/23233) Vital Signs Last 24 Hours: Systolic BP: Most Recent Systolic BP Av.7 mmHg Min: 135 mmHg Max: 173 mmHg Temperature: Most Recent Temperature Av.6 C Min: 36.22 C Max: 36.89 C Pulse: Pulse Av.5 Min: 53 Max: 63 Respirations: Resp Av.3 Min: 16 Max: 20 SpO2: SpO2 Av.3 % Min: 94 % Max: 99 % PHYSICAL EXAMINATION: General: NAD, drowsy after surgery Head: Left scalp YELENA secured with nylon sutures with sanguinous output Face: Facial movement intact and symmetric bilaterally after the case Ears: Left ear canal and post-auricular bolsters in place and moist, suture lines clean and intact Neck: left neck staple line with no edema, erythema, or drainage LLE: Skin graft site clean and without drainage around the Tegaderm Bilateral Upper extremities: numbness to volar and dorsal index and middle finger of right hand, intact in the left hand, good ROM to flexion and extension of bilateral upper extremities, subassembly assembler strength is symmetric. 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 Doing well post-operatively. Yesterday evening, he developed numbness and weakness of right hand (index and middle finger). - 10 days of ciprofloxacin - Pain control - Record drain output - Bacitracin to suture/staple lines and bolsters to moisten BID - Regular diet - mIVF, saline Bety when good PO intake - TIRE MOUNTER meds - consult neurology for right hand paresthesias. Patient discussed with Dr. Hinojosa. Darci Morfin PA-C 12/14/2023 6:57 AM * Care Plan - Sangita Hobson RN - 12/14/2023 6:06 AM EDT Clinical Goal(s): Patient will have adequate pain control this shift (12/13/23 2300) Possible barriers to meeting goal(s)/advancing plan of care: patient's pain from recent surgical procedure. Stability of the patient: Moderately stable - low risk of patient condition declining or worsening Summary regarding today's goal(s): Met: Patient has had adequate pain control refusing last scheduled dose of Tylenol at 0400 reporting no pain. Recommendations: Continue plan of care. Provide pain medication as ordered and PRN. * Pt Handout (on AVS) - Azeb Servin RN - 12/13/2023 9:46 PM EDT Images from the original note were not included. [id number] Oxycodone Oral Tablet Brands: Roxicodone Uses For pain. Instructions This medicine may be taken with or without food. Swallow with a full glass (8 oz) of water unless your doctor gives you different instructions. Store at room temperature away from heat, light, and moisture. Do not keep in the bathroom. Please ask your doctor, nurse, or pharmacist how to discard unused medicines safely. To reduce constipation, eat high fiber foods, drink plenty of water and exercise. Avoid grapefruit and grapefruit juice while on this medicine. Drug interactions can change how medicines work or increase risk for side effects. Tell your healthcare providers about all medicines taken. Include prescription and [id number] medicines, vitamins, and herbal medicines. Speak with your doctor or pharmacist before starting or stopping any medicine. Tell your doctor if symptoms do not get better or if they get worse. Cautions This medicine has an opioid. Opioids help many people but may cause addiction, especially if used for a long time. The addiction risk is higher if you have a substance use disorder (overuse of or addiction to drugs or alcohol). Ask your doctor about the benefits and risks. Ask your doctor or pharmacist if you should have naloxone on hand to treat opioid overdose. Teach your family or household members about the signs of an opioid overdose and how to treat it. If you stop this medicine suddenly after using it for a long time, you may have withdrawal. Your doctor may slowly lower your dose before stopping it. Tell your doctor right away if you have symptoms, such as unusual sweating, watering eyes, runny nose, chills, diarrhea, yawning, muscle aches, restlessness, anxiety, trouble sleeping, or thoughts of suicide. Tell your doctor and pharmacist if you ever had an allergic reaction to a medicine. Do not use the medication any more than instructed. If possible, avoid using with alcohol, marijuana, or other medicines that can cause dizziness or drowsiness. These include allergy/cold products, muscle relaxers, sleep aids, and pain relievers. Your ability to stay alert or to react quickly may be impaired by this medicine. Do not drive or operate machinery until you know how this medicine will affect you. This medicine passes into breast milk. Ask your doctor before . This medicine can hurt a new baby in the womb. If you become while on this medicine, tell your doctor immediately. Your doctor may switch you to a different medicine. This medicine should be used with caution in patients with breathing difficulties. Call your doctor right away if you notice slow or shallow breathing. Do not share this medicine with anyone who has not been prescribed this medicine. Some patients have serious side effects from this medicine. Ask your pharmacist to show you the information from the Food and Drug Administration (FDA) and discuss it with you. Side Effects The following is a list of some common side effects from this medicine. Please speak with your doctor about what you should do if you experience these or other side effects. decreased appetite constipation dizziness or drowsiness lightheadedness nausea and vomiting If you have any of the following side effects, you may be getting too much medicine. Please contactyour doctor to let them know about these side effects. confusion fainting unusual or unexplained tiredness or weakness difficulty or discomfort urinating Call your doctor or get medical help right away if you notice any of these more serious side effects: agitated feeling or trouble sleeping decreased awareness or responsiveness breathing interruption during sleep shallow, irregular breathing changes in memory, mood, or thinking hallucinations (unusual thoughts, seeing or hearing things that are not real) seizures severe stomach or bowel pain weight loss A few people may have an allergic reaction to this medicine. Symptoms can include difficulty breathing, skin rash, itching, swelling, or severe dizziness. If you notice any of these symptoms, seek medical help quickly. Extra Please speak with your doctor, nurse, or pharmacist if you have any questions about this medicine. [email or web address] [email or web address] [email or web address] IMPORTANT NOTE: This document tells you briefly how to take your medicine, but it does not tell youall there is to know about it. Your doctor or pharmacist may give you other documents about your medicine. Please talk to them if you have any questions. Always follow their advice. There is a more complete description of this medicine available in Eritrean. Scan this code on your smartphone or tablet or use the web address below. You can also ask your pharmacist for a printout. If you have any questions, please ask your pharmacist. The display and use of this drug information is subject to Terms of Use. Copyright(c) 2023 [employer]. [employer] All rights reserved. This information is not intended as a substitute for professional medical care. Always follow your healthcare professional's instructions. * Pt Handout (on AVS) - Azeb Servin RN - 12/13/2023 9:46 PM EDT Images from the original note were not included. [id number] Ciprofloxacin Oral Tablet Brands: Cipro Uses This medicine is used for the following purposes: infections caused by bacteria urinary tract infections Instructions Swallow the medicine without crushing or chewing it. This medicine may be taken with or without food. Keep the medicine at room temperature. Avoid heat and direct light. Drink extra water while on this medicine. Adults should try to drink 6-8 cups (48 to 64 oz.) of water every day. Avoid drinks with caffeine while on this medicine. Do not take this medicine with milk or milk products (such as yogurt). Do not take any antacids or vitamins with magnesium, calcium, aluminum, iron, or zinc for 6 hours before or 2 hours after taking this medicine. This medicine can make you sensitive to the sun. Use sunscreen or protective clothing when in sun. If you forget to take a dose on time, take it as soon as you remember. If it is less than 6 hours to the next dose, do not take the missed dose. Return to your normal dosing schedule. Do not take 2 doses of this medicine at one time. Drug interactions can change how medicines work or increase risk for side effects. Tell your healthcare providers about all medicines taken. Include prescription and lojn-xey-ipjawgi medicines, vitamins, and herbal medicines. Speak with your doctor or pharmacist before starting or stopping any medicine. Tell your doctor if symptoms do not get better or if they get worse. Keep using this medicine for the full number of days that it is prescribed. Do not stop the medicine even if you start to feel better. This medicine may affect your blood sugar levels. If you have diabetes, talk to your doctor before changing the dose of your diabetes medicine. Keep all appointments for medical exams and tests while on this medicine. Cautions Tell your doctor and pharmacist if you ever had an allergic reaction to a medicine. Few patients may experience tendon problems. This is more common in patients older than 60. If you notice pain, swelling, or difficulty moving your joints, tell your doctor. This can happen even after stopping the medicine for a few months. Do not use the medication any more than instructed. Your ability to stay alert or to react quickly may be impaired by this medicine. Do not drive or operate machinery until you know how this medicine will affect you. Please check with your doctor before drinking alcohol while on this medicine. Speak with your health care provider before receiving any vaccinations. Please tell your doctor if you have moderate to severe diarrhea while on this medicine. Do not treat the diarrhea with tefz-rck-ljmjaly diarrhea medicine. This medicine passes into breast milk. Ask your doctor before . During , this medicine should be used only when clearly needed. Talk to your doctor about the risks and benefits. Do not share this medicine with anyone who has not been prescribed this medicine. Some patients have serious side effects from this medicine. Ask your pharmacist to show you the information from the Food and Drug Administration (FDA) and discuss it with you. Side Effects The following is a list of some common side effects from this medicine. Please speak with your doctor about what you should do if you experience these or other side effects. agitated feeling or trouble sleeping diarrhea dizziness nausea and vomiting stomach upset or abdominal pain yeast infection of mouth vaginal itching or yeast infection Call your doctor or get medical help right away if you notice any of these more serious side effects: bleeding or bruising chest pain severe, watery or bloody diarrhea fainting numbness or tingling in hands and feet severe or persistent headache fast or irregular heart beats pain in the joints signs of liver damage (such as yellowing of eye or skin, dark urine, or unusual tiredness) mood changes muscle trembling or weakness seizures shortness of breath red, peeling or blistering skin light colored stool urinating less often difficulty or discomfort urinating blood in urine severe or persistent vomiting A few people may have an allergic reaction to this medicine. Symptoms can include difficulty breathing, skin rash, itching, swelling, or severe dizziness. If you notice any of these symptoms, seek medical help quickly. Extra Please speak with your doctor, nurse, or pharmacist if you have any questions about this medicine. https://api.[email or web address]/93 IMPORTANT NOTE: This document tells you briefly how to take your medicine, but it does not tell youall there is to know about it. Your doctor or pharmacist may give you other documents about your medicine. Please talk to them if you have any questions. Always follow their advice. There is a more complete description of this medicine available in Eritrean. Scan this code on your smartphone or tablet or use the web address below. You can also ask your pharmacist for a printout. If you have any questions, please ask your pharmacist. The display and use of this drug information is subject to Terms of Use. Copyright(c) 2023 [employer]. The [employer] All rights reserved. This information is not intended as a substitute for professional medical care. Always follow your healthcare professional's instructions. * Pt Handout (on AVS) - Azeb Servin RN - 12/13/2023 9:44 PM EDT Images from the original note were not included. [id number] Bacitracin Topical Ointment Uses For skin infection. Instructions DO NOT take this medicine by mouth. Apply the medicine to the affected area. Wash the area first before applying medicine. Apply a bandage over the area after applying the medicine. Keep the medicine at room temperature. Avoid heat and direct light. This medicine should only be used on the skin. Avoid getting the medicine in the eyes, nose, or mouth. Wash the medicine off your fingers after applying it. Gently rub the medicine into area until evenly spread. Wash your hands before and after handling this medicine. Wash your hands after using this medicine unless your hands are part of the area being treated. If medicine gets in your eyes, rinse well with cool water. Drug interactions can change how medicines work or increase risk for side effects. Tell your healthcare providers about all medicines taken. Include prescription and xtmq-mya-yrbcepb medicines, vitamins, and herbal medicines. Speak with your doctor or pharmacist before starting or stopping any medicine. Keep using this medicine for the full number of days that it is prescribed. Do not stop the medicine even if you start to feel better. This medicine is available zalb-wye-fknugsr and does not require a prescription. Cautions Tell your doctor and pharmacist if you ever had an allergic reaction to a medicine. Do not use the medication any more than instructed. It is unknown if this medicine passes into breast milk. Ask your doctor before . During , this medicine should be used only when clearly needed. Talk to your doctor about the risks and benefits. It is important that you keep taking each dose of this medicine on time even if you are feeling well. If you forget to take a dose on time, take it as soon as you remember. If it is almost time for thenext dose, do not take the missed dose. Return to your normal schedule. Do not take 2 doses at one time. Seek medical attention if you see any signs of a serious infection. These signs include pain, increasing redness or pus where this medicine is being used. Side Effects The following is a list of some common side effects from this medicine. Please speak with your doctor about what you should do if you experience these or other side effects. skin irritation where medicine is applied Call your doctor or get medical help right away if you notice any of these more serious side effects: blistering or peeling of the skin A few people may have an allergic reaction to this medicine. Symptoms can include difficulty breathing, skin rash, itching, swelling, or severe dizziness. If you notice any of these symptoms, seek medical help quickly. Extra Please speak with your doctor, nurse, or pharmacist if you have any questions about this medicine. [email or web address]://[email or web address].eCozy/[email or web address]/fdbpem/9125 IMPORTANT NOTE: This document tells you briefly how to take your medicine, but it does not tell youall there is to know about it. Your doctor or pharmacist may give you other documents about your medicine. Please talk to them if you have any questions. Always follow their advice. There is a more complete description of this medicine available in Eritrean. Scan this code on your smartphone or tablet or use the web address below. You can also ask your pharmacist for a printout. If you have any questions, please ask your pharmacist. The display and use of this drug information is subject to Terms of Use. Copyright(c) 2023 [employer]. The [employer] All rights reserved. This information is not intended as a substitute for professional medical care. Always follow your healthcare professional's instructions. * Care Plan - Jayna Yeh RN - 12/13/2023 3:09 AM EDT Clinical Goal(s): Patient will have adequate pain control (12/12/23 2335) Possible barriers to meeting goal(s)/advancing plan of care: postop Stability of the patient: Moderately unstable - medium risk of patient condition declining or worsening Summary regarding today's goal(s): Met: Recommendations: Hourly Rounding Scheduled and prn pain medication * Progress Notes - Post-Op Global - Kulwant Mora MD - 12/12/2023 9:38 PM EDT PROGRESS NOTE - POST OP - [place] [facility] [address] Name: Stephen Varela [place] [facility] Date: 12/12/2023 Time: 10:02 PM SUBJECTIVE: Patient delivered to PACU and signout given to PACU staff Principal Problem: 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) (POA: Yes) Active Problems: Heart failure, systolic, due to CAD (HCC) (POA: Yes) Overview: ECHO 2011 - Segmental wall abnormality, severe hypokinesis of anterior septum, anterior wall, apex, distal inferior septum, distal inferior wall, and distal posterior wall EF 33% PAF (paroxysmal atrial fibrillation) (HCC) (POA: Yes) Chronic diastolic CHF (congestive heart failure) (HCC) (POA: Yes) Malignant neoplasm of head, face and neck (HCC) (POA: Yes) 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) POA = Present On Admission OBJECTIVE: Most Recent Vital Signs: BP: 170 mmHg/76 mmHg (12/12/23 1145) Pulse: 121 (12/12/23 1145) Temp: 36.28 C (12/12/23 1130) Temp Summary: Temp Min: 36.3 C (97.3 F) Max: 36.3 C (97.3 F) SpO2: 99 % (12/12/23 1145) O2 flow rate: Supplemental O2 Delivery: Room Air, None (12/12/23 1146) Vital Signs Last 24 Hours: Systolic BP: Most Recent Systolic BP Av.5 mmHg Min: 170 mmHg Max: 189 mmHg Temperature: Most Recent Temperature Av.28 C Min: 36.28 C Max: 36.28 C Pulse: Pulse Av Min: 121 Max: 121 Respirations: Resp Av.5 Min: 19 Max: 22 SpO2: SpO2 Av.5 % Min: 96 % Max: 99 % PHYSICAL EXAMINATION: General: NAD, drowsy after surgery Head: Left scalp YELENA secured with nylon sutures with sanguinous output Face: Facial movement intact and symmetric bilaterally after the case Ears: Left ear canal and post-auricular bolsters in place and moist, suture lines clean and intact Neck: left neck staple line with no edema, erythema, or drainage LLE: Skin graft site clean and without drainage around the tegaderm IMPRESSION and PLAN: Stephen is a 78 year old male with a 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 Doing well post-operatively. - 10 days of ciprofloxacin - Pain control - Record drain output - Bacitracin to suture/staple lines and bolsters to moisten BID - Regular diet - mIVF, saline Bety when good PO intake - TIRE MOUNTER meds - Anticipate d/c tomorrow morning if no issues overnight and blood pressure stable Patient discussed with Dr. Hinojosa. Juan Mora MD Otolaryngology - Head & Neck Surgery Resident 12/12/2023 9:38 PM documented in this encounter Plan of Treatment Upcoming Encounters Date Type Department Care Team (Late st Contact Info) Description 12/18/2023 6:45 AM EDT Anticoagulation Pharmacy Call Center WB [address] [place] [address] [facility] [address] [facility] [place] [address] 12/22/2023 11:00 AM EDT Office Visit Otolaryngology/Head & Neck/Facial Plastic Surgery [address] [place] [address] Gurvinder Garcia MD [address] [place] [address] 01/18/2024 1:30 PM EDT Office Visit Radiation Oncology, [facility] [address] [place] [address] Shelly Rashid MD [address] [place] [address] 02/13/2024 9:20 AM EDT Office Visit [place] [address] [place] [address] Emma Alonzo MD [address] [facility] [address] [place] [address] 06/06/2024 9:30 AM EDT [facility] [address] [place] [address] Yas Mckinnon CRNP [address] [place] [address] Pending Results Name Type Priority Associated Diagnoses Date /Time CULTURE, EAR, AEROBIC AND ANAEROBIC Lab Routine 12/12/2023 4:42 PM EDT Scheduled Orders Name Type Priority Associated Diagnoses Orde r Schedule INR FINGERSTICK, POINT OF CARE (COMMUNICATION ORDER) Point of Care Testing STAT Perform Now for 1 Occurrences starting 12/12/2023 until 12/12/2023 Health Maintenance Due Date Last Done Comments Albumin/Creatinine Ratio 1963 Hepatitis C Screening 1963 Zoster Vaccines (2 of 3) 06/26/2014 05/01/2014 *SPIROMETRY ONCE FOR ASTHMA-ADULT 07/14/2022 COVID-19 Vaccine ( - season) 2023 06/01/2023, 06/09/2022, 12/31/2021, Additional history exists *NEPHROLOGY REFERRAL DUE TO RESISTANT HTN 09/25/2023 Depression Screening 09/18/2024 09/18/2023 GFR 12/04/2024 12/05/2023, /04/2024, 07/24/2023, Additional history exists DTaP,Tdap,and Td Vaccines [...] this encounter Medical Devices Implanted Type Area Private Mortgage Banker Safe Device Identifier Shelf Expiration Date Model / Serial / Lot Connector Nerve 2mm 15mm - [id number] Implanted:Qty: 1 on 04/27/2023 by Dudley Hinojosa [place] [facility] [place]: Face [employer] [id number] 12/24/2024 [id number] / / [id number] Alloderm 4x7 Thin 0.8-1.2 (28 Units) - [id number] - [id number] Implanted:Qty: 28 on 04/27/2023 by Dudley Hinojosa MD [place] [facility] [place]: Face ABBVIE 12/18/2024 [id number] / [id number] / [id number] Sheeting Monisha 2x3in X.020in - [id number] Implanted:Qty: 1 on 04/27/2023 by Dudley Hinojosa MD [place] [facility] [place]: Ear [employer] 09/25/2024 [id number] Sheeting Monisha 2x3 In X.005in - [id number] Implanted:Qty: 1 on 12/12/2023 by Gurvinder Garcia MD [place] [facility] [place]: Ear [employer] 04/05/2026 [id number] documented as of this encounter Procedures Procedure Name Priority Date/Time Associated Diagnosis Comments SERUM PROTEIN ELECTROPHORESIS REFLEX PROFILE Routine 12/14/2023 12:53 PM EDT SERUM IMMUNOFIXATION Routine 12/14/2023 12:53 PM EDT SERUM FREE LIGHT CHAINS Routine 12/14/19 12:53 PM EDT TSH Routine 12/14/2023 12:53 PM EDT T4, FREE Routine 12/14/2023 12:53 PM EDT SARS-COV-2 (COVID-19), NAAT STAT 12/12/2023 10:28 PM EDT SURGICAL PATHOLOGY Routine 12/12/2023 5: 56 PM EDT Squamous cell carcinoma of face CULTURE, EAR, AEROBIC AND ANAEROBIC Routine 12/12/2023 4:42 PM EDT CULTURE, EAR, AEROBIC AND ANAEROBIC Routine 12/12/2023 4:42 PM EDT GLUCOSE METER, POINT OF CARE BERNADETTE 12/12/2023 4:29 PM EDT WHOLE BLOOD PROFILE, ARTERIAL STAT 12/12/2023 2:41 PM EDT PT INR STAT 12/12/2023 2:41 PM EDT INR FINGERSTICK, POINT OF CARE BERNADETTE 12/12/2023 12:24 PM EDT ISLAND PEDICLE FLAP 12/12/2023 1 1:47 AM EDT Squamous cell carcinoma of face REVISE MIDDLE EAR & MASTOID 12/12/2023 11:47 AM EDT Squamous cell carcinoma of face SKIN SPLIT GRAFT, TRUNK/ARMS/LEGS 12/12/2023 11:47 AM EDT Squamous cell carcinoma of face REBUILD OUTER EAR CANAL 12/12/19 11:47 AM EDT Squamous cell carcinoma of face documented in this encounter Results * T4, FREE (12/14/2023 12:53 PM EDT) T4, Free 1.1 0.9 - 1.7 ng/dL 12/15/2023 10:52 AM EDT LABORATORY [facility] Blood Venous blood specimen / Unknown Venipuncture / Unknown 12/14/2023 12:53 PM EDT 12/14/2023 1:21 PM EDT Govind Kearney MD LAB BLOOD ORDERABLES LABORATORY [facility] [address] [place] [address] * (ABNORMAL) SERUM FREE LIGHT CHAINS (12/14/2023 12:53 PM EDT) Gilmer Free Light Chains, Serum 40.28(H) 3.30 - 19.40 mg/L 12/15/2023 9:46 AM EDT LABORATORY [facility] Lambda Free Light Chains, Serum 22.16 5.71 - 26.30 mg/L 12/15/2023 9:46 AM EDT LABORATORY [facility] Gilmer Lambda Free Light Chains Ratio 1.82(H) 0.26 - 1.65 12/15/2023 9:46 AM EDT LABORATORY [facility] Blood Venous blood specimen / Unknown Venipuncture / Unknown 12/14/2023 12:53 PM EDT 12/14/2023 1:21 PM EDT Darci Morfin PA-C LAB BLOOD ORDERA BLES LABORATORY [facility] [address] [place] [address] * SERUM PROTEIN ELECTROPHORESIS REFLEX PROFILE (12/14/2023 12:53 PM EDT) Normal/Abnormal Normal Normal 3:59 PM EDT LABORATORY [facility] Protein 6.5 6.0 - 8.3 g/dL 12/15/2023 3:59 PM EDT LABORATORY [facility] Albumin 3.30 3.30 - 4.40 g/dL 12/15/2023 3:59 PM EDT LABORATORY [facility] Alpha-1 Globulin 0.24 0.10 - 0.30 g/dL 12/15/2023 3:59 PM EDT LABORATORY [facility] Alpha-2 Globulin 0.89 0.60 - 1.00 g/dL 12/15/2023 3:59 PM EDT LABORATORY [facility] Beta-Globulin 0.80 0.80 - 1.30 g/dL 12/15/2023 3:59 PM EDT LABORATORY [facility] Gamma-Globulin 1.27 0.70 - 1.70 g/dL 12/15/2023 3:59 PM EDT LABORATORY [facility] Electrophoresis Interpretation Normal serum protein electrophoretic pattern. 12/15/2023 3:59 PM EDT LABORATORY [facility] Blood Venous blood specimen / Unknown Venipuncture / Unknown 12/14/2023 12:53 PM EDT 12/14/2023 1:21 PM EDT Darci Morfin PA-C LAB BLOOD ORDERA BLES Performing Organization Address [facility] de Phone Number LABORATORY [facility] [address] [place] [address] * (ABNORMAL) TSH (12/14/2023 12:53 PM EDT) Pathologist [facility] TSH 11.10(H) 0.27 - 4.20 uIU/mL 12/14/2023 2:16 PM EDT LABORATORY [facility] Blood Venous blood specimen / Unknown Venipuncture / Unknown 12/14/2023 12:53 PM EDT 12/14/2023 1:21 PM EDT Darci Morfin PA-C LAB BLOOD ORDERA BLES Performing Organization Address City/[facility]/ZIP Co de Phone Number LABORATORY [address] [address] * SERUM IMMUNOFIXATION (12/14/2023 12:53 PM EDT) Normal/Abnormal Normal Normal 3:59 PM EDT LABORATORY [facility] Immunofixation Interpretation No monoclonal gammopathy detected. 12/15/2023 3:59 PM EDT LABORATORY [facility] Blood Venous blood specimen / Unknown Venipuncture / Unknown 12/14/2023 12:53 PM EDT 12/14/2023 1:21 PM EDT Darci DODSON-Riaz LAB BLOOD ORDERA BLES Performing Organization Address [facility] Co de Phone Number LABORATORY [address] [address] * SARS-COV-2 (COVID-19), NAAT (12/12/2023 10:28 PM EDT) Pathologist [facility] SARS-CoV-2 (COVID-19) Result Negative Negative 12/12/2023 11:49 PM EDT LABORATORY [facility] Comment: 2019 Novel Coronavirus not detected. This express test was developed and its performance characteristics determined by [facility]. It has not been cleared or approved by the U.S. Food and Drug Administration (FDA). FDA does not require this test to go thru premarket FDA review. This test is used for clinical purposes. It should not be regarded as investigational or for research. This laboratory is certified under the Clinical Laboratory Improvement Amendments (CLIA) as qualified to perform high complexity clinical laboratory testing. This test is a nucleic acid amplification test (NAAT), a reverse transcriptase polymerase chain reaction (RT-PCR) test, or a Centers for Disease Control- acceptable equivalent. The test is performed in a high complexity Clinical Laboratory Improvement Amendments-(CLIA) certified laboratory. The test is acceptable for SARS-CoV-2 diagnosis, surveillance, and travel within the [place] and to most countries. Please check with local testing authorities about requirements before travel. The validation of bronchial specimens, tracheal aspirates, and sputum for this assay was developed and performance characteristics determined by [facility] [employer]. The validation of alternate specimen types has not been cleared or approved by the U.S. Food and Drug Administration (FDA). It has been determined that such clearance is not necessary. Upper Respiratory Mid-turbinate nasal swab / Unknown Non-blood Collection / Unknown 12/12/2023 10:28 PM EDT 12/12/2023 10:57 PM EDT Kulwant Mora MD LAB MICRO - G ENERAL [place] [address] * SURGICAL PATHOLOGY (12/12/2023 5:56 PM EDT) Final Diagnosis A. Ear, Left, Cholesteatoma, excision: - Superficial keratinous debris only, see comment 12/14/2023 1:12 PM EDT LABORATORY [facility] Final Diagnosis Comment Biopsy is very superficial and it does not include any epithelium/ epithelial lining. Clinical correlation is recommended. 12/14/2023 1:12 PM EDT LABORATORY [facility] Gross Description A. Ear, Left. Received fresh with a container labeled with "Stephen Varela", "[id number]", "1945" and " EAC cholesteatoma". Received is a michele-white shiny soft fragment of tissue measuring 0.4 x 0.3 cm. The specimen is wrapped in lens paper and submitted intact in cassette A1. Gross By: MR 12/14/2023 1:12 PM EDT LABORATORY [facility] Sign Out Location Pathologist sign out performed at [facility] ([facility] [place] [address]. 12/14/2023 1:12 PM EDT LABORATORY [facility] Photographic images and diagrams represent steve findings in this case; they are not intended to replace a complete review of the final diagnostic report. The following statement applies to Flow Cytometry, Histology, In situ Hybridization Assays and Molecular Genetics. This test was developed and performed at [facility] and its performance characteristics determined by [facility]. It has not been cleared or approved by the U.S. Food and Drug Administration. The FDA has determined that such clearance or approval is not necessary. This test is used for clinical purposes. It should not be regarded as investigational or for research. Special stains, including histochemical stains, and studies using immunologic and LEANDRA methodology (where applicable) are performed with appropriate positive and negative control reactions. 12/14/2023 1:12 PM EDT [facility] Tissue Left ear structure / Unknown 12/12/2023 5:56 PM EDT 12/12/2023 7:28 PM EDT Gurvinder Garcia MD LAB PATHOLOGY OR DERABLES [facility] [address] [place] [address] * (ABNORMAL) CULTURE, EAR, AEROBIC AND ANAEROBIC (12/12/2023 4:42 PM EDT) Culture Growth Few Staphylococcus aureus(A) MICROBROTH DILUTIONS 12/15/2023 2:46 PM EDT LABORATORY GM Culture Growth One colony Bacteroides fragilis(A) MICROBROTH DILUTIONS 12/15/2023 2:46 PM EDT LAB[facility]ATORY [facility] Stain Description Occasional Polymorphonuclear leukocytes(A) 12/15/2023 2:46 PM EDT LABORATORY [facility] Stain Description Many Gram positive cocci(A) 12/15/2023 2:46 PM EDT LABORATORY [facility] Stain Description Many Gram negative bacilli(A) 12/15/2023 2:46 PM EDT LAB[facility]ATORY [facility] Stain Description Moderate Gram positive bacilli(A) 12/15/2023 2:46 PM EDT [facility] Aspirate Left ear structure / Unknown Non-blood Collection / Unknown 12/12/2023 4:42 PM EDT 12/12/2023 7:20 PM EDT Narrative LABORATORY [facility] - 12/15/2023 2:46 PM EDT Multiple other species of aerobic and/or anaerobic bacteria. Moderate growth normal shlomo No further workup routinely performed Organism Antibiotic Method Susceptibility Staphylococcus aureus Clindamycin MICROBROTH DILUTIONS <=0.25: Susceptible Staphylococcus aureus Erythromycin MICROBROTH DILUTIONS <=0.25: Susceptible Staphylococcus aureus Oxacillin MICROBROTH DILUTIONS 0.5: Susceptible Staphylococcus aureus Tetracycline MICROBROTH DILUTIONS <=1: Susceptible Staphylococcus aureus Trimeth/Sulfametho xazo le MICROBROTH DILUTIONS <=10: Susceptible Staphylococcus aureus Vancomycin MICROBROTH DILUTIONS 1: Susceptible Gurvinder Garcia MD LAB MICRO - GENE RAL ORDERABLES [facility] [address] [place] [address] * GLUCOSE METER, POINT OF CARE (12/12/2023 4:29 PM EDT) [facility] Glucose Meter 98 70 - 120 mg/dL 12/13/2023 8:59 AM EDT [facility] Blood Whole blood specimen / Unknown 12/12/2023 4:29 PM EDT 12/13/2023 8:59 AM EDT Dudley Hinojosa MD LAB POINT OF CARE TEST DOCKED DEVICE UNSOLICITED RESULTS Performing Organization Address [facility] Co de Phone Number [facility] [address] [place] [address] * (ABNORMAL) WHOLE BLOOD PROFILE, ARTERIAL (12/12/2023 2:41 PM EDT) Temperature 37.0 C 12/12/2023 2:56 PM EDT LAB[facility]ATORY [facility] pH, Arterial 7.370 7.350 - 7.450 units 12/12/2023 2:56 PM EDT LAB[facility]ATORY [facility] pCO2, Arterial 45.2(H) 35.0 - 45.0 mmHg 12/12/2023 2:56 PM EDT LAB[facility]ATORY [facility] pO2, Arterial 142.0(H) 75.0 - 100.0 mmHg 12/12/2023 2:56 PM EDT LAB[facility]ATORY [facility] Base Excess, Arterial 0.6 -2.0 - 2.0 mmol/L 12/12/2023 2:56 PM EDT LAB[facility]ATORY [facility] HGB 8.9(L) 14.0 - 16.8 g/dL 12/12/2023 2:56 PM EDT LAB[facility]ATORY [facility] Hematocrit, Whole Blood 27.6(L) 40.0 - 48.4 % 12/12/2023 2:56 PM EDT LAB[facility]ATORY [facility] Comment: The Hematocrit reference interval is based on adult population. This method is intended for trending and screening purposes only. A "Complete Blood Count" is more accurate and should be ordered if clinically indicated. Oxyhemoglobin, Arterial 96.1 94.0 - 99.0 % total Hgb 12/12/2023 2:56 PM EDT LABORATORY [facility] Carboxyhemoglob in, Whole Blood 1.9(H) <=1.5 % total Hgb 12/12/2023 2:56 PM EDT LABORATORY C Comment:Smokers: 0-9.0 % Methemoglobin, Whole Blood 1.0 <=1.5 % total Hgb 12/12/2023 2:56 PM EDT LAB[facility]ATORY [facility] Reduced Hemoglobin, Arterial 1.0 0.0 - 5.0 % total Hgb 12/12/2023 2:56 PM EDT LAB[facility]ATORY [facility] O2 Content, Arterial 12.3(L) 15.0 - 24.0 %vol 12/12/2023 2:56 PM EDT LAB[facility]ATORY [facility] Potassium, Whole Blood 4.1 3.5 - 5.1 mmol/L 12/12/2023 2:56 PM EDT LAB[facility]ATORY [facility] Sodium, Whole Blood 141 135 - 146 mmol/L 12/12/2023 2:56 PM EDT LAB[facility]ATORY [facility] Chloride, Whole Blood 106 98 - 107 mmol/L 12/12/2023 2:56 PM EDT LAB[facility]ATORY [facility] Calcium, Ionized, Whole Blood 1.21 1.13 - 1.32 mmol/L 12/12/2023 2:56 PM EDT LAB[facility]ATORY [facility] Anion Gap, Whole Blood 9.3 7.0 - 15.0 mmol/L 12/12/2023 2:56 PM EDT LAB[facility]ATORY [facility] Glucose, Whole Blood 92 70 - 120 mg/dL 12/12/2023 2:56 PM EDT LAB[facility]ATORY [facility] FiO2 Not Provided % 12/12/2023 2:56 PM EDT LAB[facility]ATORY [facility] O2 Flow, Arterial Not Provided L/min 12/12/2023 2:56 PM EDT [facility] Bicarbonate, Whole Blood 25.5 23.0 - 31.0 mmol/L 12/12/2023 2:56 PM EDT LAB[facility] Blood Arterial blood specimen / Unknown 12/12/2023 2:41 PM EDT 12/12/2023 2:51 PM EDT Jonathan Cabello MD LAB BLOO D ORDERABLES Performing Organization Address City/[facility] Co de Phone Number [facility] [address] [place] [address] * (ABNORMAL) PT INR (12/12/2023 2:41 PM EDT) Prothrombin Time 16.0(H) 11.6 - 15.2 seconds 12/12/2023 3:19 PM EDT LAB[facility] INR 1.3(H) 0.8 - 1.2 12/12/2023 3:19 PM EDT LAB[facility]ORY [facility] Blood Arterial blood specimen / Unknown 12/12/2023 2:41 PM EDT 12/12/2023 2:51 PM EDT Narrative LAB[facility]AT[facility] - 12/12/2023 3:19 PM EDT Warfarin Therapy INR: 2.0-3.0 conventional anticoagulation INR: 2.5-3.5 high intensity anticoagulation Jonathan Cabello MD LAB BLOO D ORDERABLES Performing Organization Address [facility] Co de Phone Number LABORATORY [place] [address] [place] [address] * INR FINGERSTICK, POINT OF CARE (12/12/2023 12:24 PM EDT) Fingerstick INR 1.2 INR 10:19 AM EDT [facility] Blood 12/12/2023 12:2 4 PM EDT 12/14/2023 10:19 AM EDT Narrative [facility] - 12/14/2023 10:19 AM EDT Therapeutic ranges for non-operative patients: Prophylaxsis/treatment of DVT: (Range:2.0-3.0) Treatment of pulmonary embolism:(Range:2.0-3.0) Prevention of systemic embolism from: -tissue heart valves -acute myocardial infarction -valvular heart disease -atrial fibrillation (Range: 2.0-3.0) Mechanical prosthetic valves: (Range: 2.5-3.5) Dudley Hinojosa MD LAB POINT OF CARE TEST DOCKED DEVICE UNSOLICITED RESULTS [facility] [address] [place] [address] documented in this encounter Visit Diagnoses Diagnosis 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)- Primary Malignant neoplasm of head, face, and neck 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 Heart failure, systolic, due to CAD (HCC) Unspecified systolic heart failure PAF (paroxysmal atrial fibrillation) (HCC) Atrial fibrillation Chronic diastolic CHF (congestive heart failure) (HCC) Chronic diastolic heart failure Malignant neoplasm of head, face and neck (HCC) Malignant neoplasm of head, face, and neck 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 Given 12/16/2023 7:54 AM EDT 650 mg Given 12/16/2023 12:50 AM EDT 650 mg Given 12/15/2023 8:51 PM EDT 650 mg bacitracin zinc ointment Topical, BID (.AM/PM), First dose on Mon12/12/23 at 2230, Until Discontinued, Apply to: left ear/neck suture/staple lines and bolsters Given 12/16/2023 9:00 AM EDT Given 12/15/2023 8:52 PM EDT Given 12/15/2023 8:11 AM EDT ciprofloxacin (Cipro) tab 500 mg 500 mg, Oral, BID (.AM/PM), First dose on Mon12/13/23 at 0900, Last dose on Mon12/22/23 at 2100, For 10 days, Hold antacids and iron for 3-4 hours before and after administration. Given 12/16/2023 7:54 AM EDT 5 00 mg Given 12/15/2023 8:51 PM EDT 500 mg Given 12/15/2023 8:07 AM EDT 500 mg Enoxaparin (Lovenox) inj 40 mg 40 mg, Subcutaneous, Daily(AM), First dose on Mon12/13/23 at 0900, Until Discontinued, If patient is on warfarin, inform provider if daily INR value is 2 or greater! Given 12/16/2023 7:54 AM EDT 40 mg Abdom en Left Lower Given 12/15/2023 8:07 AM EDT 40 mg Ab domen Right Lower Given 12/14/2023 8:21 AM EDT 40 mg Ab domen Left Lower Furosemide (Lasix) tab 40 mg 40 mg, Oral, Daily(AM), First dose on Mon12/13/23 at 0900, Until Discontinued Given 12/15/2023 3:20 PM EDT 40 mg Given 12/13/2023 8:48 AM EDT 40 mg HYDROmorphone (Dilaudid) inj 0.2 mg 0.2 mg, IV Push, Q15 MIN PRN Pain, Severe, Starting on Mon12/12/23 at 1418, Until Mon12/12/23 at 2320, For 4 doses, Administer only postop in PACU. Hold for respiratory rate less than 12. Administer up to a total of 0.8mg., PACU Given 12/12/2023 9:56 PM EDT 0.2 mg Given 12/12/2023 9:40 PM EDT 0.2 mg isolyte-S pH 7.4 infusion Intravenous, at 25 mL/hr, All Patients EXCEPT Dialysis patients Plasma-LYTE 148, isolyte-S, and isolyte-S pH 7.4 are considered equivalent - including for MAR barcode scanning., CONTINUOUS, Starting on Mon12/12/23 at 1245, Until Mon12/12/23 at 2152, Pre-Op New Bag 12/12/2023 12:29 PM EDT 25 mL/hr 25 mL/hr isolyte-S pH 7.4 infusion Intravenous, at 50 mL/hr, Plasma-LYTE 148, isolyte-S, and isolyte-S pH 7.4 are considered equivalent - including for MAR barcode scanning., CONTINUOUS, Starting on Mon12/12/23 at 2230, Until Mon12/16/23 at 1510 Rate Verify 12/14/2023 11:03 PM EDT 50 mL/hr Rate Verify 12/14/2023 6:52 PM EDT 50 mL/hr New Bag 12/14/2023 4:30 PM EDT 50 mL/hr Lisinopril (Prinivil) tab 10 mg 10 mg, Oral, Daily(AM), First dose on Mon12/13/23 at 0900, Until Discontinued Given 12/16/2023 7:54 AM EDT 10 mg Given 12/15/2023 8:07 AM EDT 10 mg Given 12/14/2023 8:22 AM EDT 10 mg metoprolol succinate XL (toPROL XL) tab 25 mg 25 mg, Oral, Daily(AM), First dose on Mon12/13/23 at 0900, Until Discontinued, Hold for HR less than 60 or SBP below 100 and notify service if dose is held This med should NOT be Crushed or Chewed. Given 12/16/2023 7:54 AM EDT 25 mg Given 12/15/2023 8:07 AM EDT 25 mg Given 12/14/2023 8:22 AM EDT 25 mg omeprazole (PriLOSEC) cap 20 mg 20 mg, Oral, Daily(AM), First dose on Mon12/13/23 at 0900, Until Discontinued, This med should NOT be Crushed or Chewed Given 12/16/2023 7:54 AM EDT 20 mg Given 12/15/2023 8:07 AM EDT 20 mg Given 12/14/2023 8:22 AM EDT 20 mg oxyCODONE (Oxy IR) tab 10 mg 10 mg, Oral, Q4H PRN Pain, Severe, Starting on Mon12/12/23 at 2150, Until Mon12/16/23 at 1510 oxyCODONE (Oxy IR) tab 5 mg 5 mg, Oral, Q4H PRN Pain, Moderate, Starting on Mon12/12/23 at 2150, Until 12/16/23 at 1510 Given 12/13/2023 4:02 AM EDT 5 mg oxygen GAS Inhalation, OXYGEN, First dose on Mon12/12/23 at 1600, Until Discontinued, Device/Managed by: Low Flow Device, Goal SPO2 (%): Other, Lower-limit SPO2 (%): 88, Upper-limit SPO2 (%): 92, Starting Device: Nasal Cannula, Initial Flow Rate (LPM): 6 LPM for NC; 10 LPM for NRB mask, Lowest Support: Nasal Cannula: Flow 0-6 LPM. Titrate up/down by 1 LPM., Higher Support: Non-Rebreather (NRB) Mask: Minimum of 10 LPM. Titrate to maintain bag inflation., Titration Interval: Q2 minutes and as needed., Notify Provider: Other, Notify Provider [other]: If SpO2 less than 88%, notify provider immediately, If patient is on Room Air in the PACU and SpO2 is greater than 88% but less than 92% place patient on Nasal Cannula If patient is on Room Air in the PACU and SpO2 is less than 88% place patient on NRB Mask Oxygen On 12/12/2023 4:00 PM EDT documented in this encounter Active and Recently Administered Medications Times are shown in EDT. Scheduled Medication Order 12/14/2023 12/15/2023 12/16/2023 Acetaminophen (Tylenol) tab 650 mg 650 mg, Oral, Q4H, First dose on Mon12/12/23 at 2230, Until Discontinued, Maximum of 4 grams (4000 mg) per day. 0005 (Given - Provider: Sangita Hobson RN - Comment: scheduled dose)0400 (Not Given - Provider: Sangita Hobson RN - Reason: Refused-Notify Provider)0736 (Given - Provider: Sangita Hobson RN - Comment: scheduled dose)1305 (Given - Provider: Domonique Whipple RN)1633 (Given - Provider: Domonique Whipple RN)1949 (Given - Provider: Jelena Duran RN)2357 (Given - Provider: Jelena Duran RN) 0307 (Given - Provider: Jelena Duran RN)0807 (Given - Provider: Casey Coffey RN)1200 (Entry Error - Provider: Casey Coffey RN)151 (Given - Provider: Casey Coffey RN)2050 (Given - Provider: Jose Ewing RN) 005 (Given - Provider: Jose Ewing RN)043 (Not Given - Provider: Jose Ewing RN - Reason: Refused-Notify Provider - Comment: Pt states he wants to wait until 8am to take tylenol.)075 (Given - Provider: Fay Kingsley LPN) bacitracin zinc ointment Topical, BID (.AM/PM), First dose on Mon12/12/23 at 2230, Until Discontinued, Apply to: left ear/neck suture/staple lines and bolsters 0824 (Given - Provider: Domonique Whipple RN)1950 (Given - Provider: Jelena Duran RN) 810 (Given - Provider: Casey Coffey RN)2051 (Given - Provider: Jose Ewing RN) 899 (Given - Provider: Fay Kingsley LPN) ciprofloxacin (Cipro) tab 500 mg 500 mg, Oral, BID (.AM/PM), First dose on Mon12/13/23 at 0900, Last dose on Mon12/22/23 at 2100, For 10 days, Hold antacids and iron for 3-4 hours before and after administration. 0822 (Given - Provider: Domonique Whipple RN)1948 (Given - Provider: Jelena Duran RN) 08 (Given - Provider: Casey Coffey RN)2050 (Given - Provider: Jose Ewing RN) 075 (Given - Provider: Fay Kingsley LPN) Enoxaparin (Lovenox) inj 40 mg 40 mg, Subcutaneous, Daily(AM), First dose on Mon12/13/23 at 0900, Until Discontinued, If patient is on warfarin, inform provider if daily INR value is 2 or greater! 0821 (Given - Provider: Domonique Whipple RN) 08 (Given - Provider: Casey Coffey RN) 075 (Given - Provider: Fay Kingsley LPN) Furosemide (Lasix) tab 40 mg 40 mg, Oral, Daily(AM), First dose on Mon12/13/23 at 0900, Until Discontinued 0900 (Not Given - Provider: Domonique Whipple RN - Reason: Refused-Notify Provider) 1520 (Given - Provider: Casey Coffey RN) 0900 (Not Given - Provider: Fay Kingsley LPN - Reason: Refused-Notify Provider - Comment: [place]) Lisinopril (Prinivil) tab 10 mg 10 mg, Oral, Daily(AM), First dose on Mon12/13/23 at 0900, Until Discontinued 0822 (Given - Provider: Domonique Whipple RN) 08 (Given - Provider: Casey Coffey RN) 0754 (Given - Provider: Fay Kingsley LPN) metoprolol succinate XL (toPROL XL) tab 25 mg 25 mg, Oral, Daily(AM), First dose on Mon12/13/23 at 0900, Until Discontinued, Hold for HR less than 60 or SBP below 100 and notify service if dose is held This med should NOT be Crushed or Chewed. 0822 (Given - Provider: Domonique Whipple RN) 0807 (Given - Provider: Casey Coffey RN) 0754 (Given - Provider: Fay Kingsley LPN) omeprazole (PriLOSEC) cap 20 mg 20 mg, Oral, Daily(AM), First dose on Mon12/13/23 at 0900, Until Discontinued, This med should NOT be Crushed or Chewed 0822 (Given - Provider: Domonique Whipple RN) 08 (Given - Provider: Casey Coffey RN) 0754 (Given - Provider: Fay Kingsley LPN) Continuous Medication Order 12/14/2023 12/15/2023 12/16/2023 isolyte-S pH 7.4 infusion Intravenous, at 50 mL/hr, Plasma-LYTE 148, isolyte-S, and isolyte-S pH 7.4 are considered equivalent - including for MAR barcode scanning., CONTINUOUS, Starting on Mon12/12/23 at 2230, Until 12/16/23 at 1510 0057 (Rate Verify - Provider: Sangita Hobson RN)0400 (Rate Verify - Provider: Sangita Hobson RN)1016 (Rate Verify - Provider: Domonique Whipple RN)1139 (Paused - Provider: Domonique Whipple RN)1202 (Restarted - Provider: Domonique Whipple RN)1446 (Rate Verify - Provider: Domonique Whipple RN)1521 (Rate Change - Provider: Domonique Whipple RN)1536 (Stopped - Provider: Domonique Whipple RN)1630 (New Bag - Provider: Domonique Whipple RN)1852 (Rate Verify - Provider: Domonique Whipple RN)2303 (Rate Verify - Provider: Jelena Duran RN) 0318 (Stopped - Provider: Jelena Duran RN)0323 (Stopped - Provider: Jelena Duran RN - Comment: paused due to patient having adequate oral intake; okay to pause per ENT note) PRN Medication Order 12/14/2023 12/15/2023 12/16/2023 oxyCODONE (Oxy IR) tab 10 mg 10 mg, Oral, Q4H PRN Pain, Severe, Starting on 12/12/23 at 2150, Until 12/16/23 at 1510 oxyCODONE (Oxy IR) tab 5 mg 5 mg, Oral, Q4H PRN Pain, Moderate, Starting on 12/12/23 at 2150, Until 12/16/23 at 1510 documented in this encounter Advance Directives Documents on File Type Date Recorded 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
--- OUTSIDE RECORDS SUMMARY | 2024-04-25 23:56 | External Medical Summary | Summary of Care ---
Author Name Unknown Organization [facility] Address [address] [place] [address] Phone [phone] Care Team Providers Care Rose Grower Name Role Phone Jad Boone MD Primary Care Provider Reason for Visit * Reason Comments Wound Care Encounter Details Date Type Department Care Team (Late st Contact Info) Description 12/11/2023 9:40 AM EDT Nurse Only Ancillary, [facility] [address] [place] [address] [id number] Girard, Nurse, RN [address] [place] [id number] Wound Care Allergies Active Allergy Reactions Criticality Noted Date Comments Bee Venom Hives High 03/14/2017 documented as of this encounter (statuses as of 12/11/2023) Medications Medication Sig Dispensed Refills Start Date End Date Status Omeprazole 20 MG Oral Capsule Delayed Release (PriLOSEC) Take 1 Capsule by mouth in the morning. 90 Capsule 1 11/15/2022 Active Vitamin D3 1.25 MG (74080 UT) Oral Capsule Take 1 Capsule by mouth once a week. 12 Capsule 3 01/30/2023 Active Additional Information Patient taking differently:50,000 Units Oral QWEEK,Every Monday, Reported on 05/18/2023 Atorvastatin Calcium 20 MG Oral Tablet (Lipitor)Indicatio ns:Coronary artery disease involving wainwright coronary artery of wainwright heart without angina pectoris TAKE 1 TABLET, [...] (Coumadin)Indicati ons:PAF (paroxysmal atrial fibrillation) ([facility]) Take 1 Tablet by mouth every evening. 09/28: 10 mg; Otherwise 5 mg every Mon, Mon, Mon; 7.5 mg all other days and as directed by [facility] 100 Tablet 1 10/04/2023 [...] with preserved ejection fraction (HFpEF) ([facility]) Take 1 Tablet by mouth in the morning. 90 Tablet 3 11/10/2023 Active documented as of this encounter (statuses as of 12/11/2023) Active Problems Problem Noted Date Diagnosed Date [...] fibrillation) 10/18/2018 Coronary artery disease invo lving wainwright coronary artery without angina pectoris 01/07/2015 group [...] as of this encounter (statuses as of 12/11/2023) Resolved Problems Problem Noted Date Diagnosed Date [...] as of this encounter (statuses as of 12/11/2023) Immunizations Name Administration Dates Next Due COVID-19 [...] Nursing Notes * Tere Campa CMA - 12/11/2023 11:16 AM EDT Brought patient into a room. I removed coban, rolled gauze and unna boot off of BLE. Both legs lookto be improved. Pt tolerated well. Dr. Boone came in just to look at pts BLE. Pt is scheduled for surgery tomorrow. documented in this encounter Plan of Treatment Upcoming Encounters Date Type Department Care Team (Latest Contact Info) Description 12/12/2023 12:37 PM EDT Hospital Encounter [place] [facility] [facility] [facility] [address] [place] [address] Gurvinder Garcia MD [address], [place] [id number] 12/12/2023 12:37 PM EDT - 12/12/2023 5:43 PM EDT Surgery [place] [facility] [facility] [address] [place] [address] Gurvinder Garcia MD [address], [place] [id number] RECONSTRUCTION EXTERNAL AUDITORY CANAL DUE TO INJURY 12/13/2023 6:45 AM EDT Anticoagulation Pharmacy Call Center [address] [place] [address] [facility], [facility] [address] [place] [address] 01/18/2024 1:30 PM EDT [facility] [address] [place] [address] Eros Faust MD [address] [place] [address] 02/13/2024 9:20 AM EDT Office Visit [place] [address] [place] [address] Jad Boone MD [address] [place] [address] [place] [address] 06/06/2024 9:30 AM EDT Office Visit Cardiology, [address] [place] [address] Yas Mckinnon CRNP [address] [place] [address] Scheduled Procedures Name Priority Associated Diagnoses Date/Ti [...] this encounter Medical Devices Implanted Type Area Piano And Organ Refinisher Device Identifier Shelf Expiration Date Model / Serial / Lot Connector Nerve 2mm 15mm - [id number] Implanted:Qty: 1 on 04/27/2023 by Dudley Hinojosa MD at [place] [facility] Left: Face [employer] [id number] 12/24/2024 [id number] / / [id number] Alloderm 4x7 Thin 0.8-1.2 (28 Units) - [id number] - [id number] Implanted:Qty: 28 on 04/27/2023 by Dudley Hinojosa MD at [place] [facility] Left: Face ABB[employer]IE 12/18/2024 [id number] / [id number] / [id number] Sheeting Monisha 2x3in X.020in - [id number] Implanted:Qty: 1 on 04/27/2023 by Dudley Hinojoas MD at [place] [facility] Left: Ear [employer] 09/25/2024 [id number] / / [id number] documented as of this encounter Advance Directives Documents on File Type Date 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
--- OUTSIDE RECORDS SUMMARY | 2024-04-25 23:56 | External Medical Summary ---
Author Name Unknown Address Unknown Organization K01:[facility] [place] [facility] [address] [facility] [address] Laboratory Report Ordering Provider Test Date Status JANI MANZO 12/12/2023 16:42:00 Final Left near pus

Multi ple other species of aerobic and/or anaerobic bacteria.
Light growth normal shlomo
No further workup routinely performed Observation Date Value Abnormality Reference (Units ) Status Bacteria identified in Specimen by Culture 12/12/2023 16:42:00 [id number]^STAPHY LOCOCCUS AUREUS Abnormal Final Three colonies Staphylococcu s aureus Bacteria identified in Specimen by Culture 12/12/2023 16:42:00 [id number]^PEPTONIPHILUS SPECIES Abnormal Final Moderate Peptoniphilus speci es Gram Stain 12/12/2023 16:42:00 Occasional P olymorphonuclear leukocytes Abnormal Final Gram Stain 12/12/2023 16:42:00 Many Gram positive cocci Abno rmal Final Performing Location [facility] [place] [facility] [address] [place] [address] Ordering Provider Test Date Status JANI MANZO 12/12/2023 16:42:00 Final Observation Date Value Abnormality Reference (Units ) Status Clindamycin 12/12/2023 16:42:00 <=0.25 Susceptible Final Erythromycin susceptibility 12/12/2023 16:42:00 <=0.25 Susceptible Final Oxacillinsusceptibility 12/12/2023 16:42:00 0.5 Susceptible Final Tetracyclinesusceptibility 12/12/2023 16:42:00 <=1 Susceptible Final TMP-SMZ susceptibility 12/12/2023 16:42:00 <=10 Susceptible Final Vancomycinsusceptibility 12/12/2023 16:42:00 <=0.5 Susceptible Final Test: Culture, Ear, Aerobic and Anaerobic
Specimen Source: Ear, Left
Specimen Type: Aspirate
Specimen Date: 12/12/2023 4:42 PM
Result Date: 12/20/2023 2:13 PM
Result Status: Final result
Abnormal: Yes
Resulting Lab: [facility] [place]
[address] [facility] [address]
[facility] [address]

CULTURE

Three colonies Staphylococcus aureus (Abnormal)

Moderate Peptoniphilus species (Abnormal)

Multiple other species of aerobic and/or anaerobic bacteria.Light growth
normal floraNo further workup routinely performed

STAIN

Occasional Polymorphonuclear leukocytes

Many Gram positive cocci

SUSCEPTIBILITY

Staphylococcus
aureus
METHOD MICROBROTH
DILUTIONS

CLINDAMYCIN <=0.25 Susceptible
ERYTHROMYCIN <=0.25 Susceptible
OXACILLIN 0.5 Susceptible
TETRACYCLINE <=1 Susceptible
TRIMETH/SULFAMETHOXAZOLE <=10 Susceptible
VANCOMYCIN <=0.5 Susceptible

null Performing Location LAB[facility]ORY [facility] [place] - [address] [facility] [address]
--- OUTSIDE RECORDS SUMMARY | 2024-04-25 23:56 | External Medical Summary ---
Author Name Unknown Address Unknown Organization K01:[facility] - [address] [facility] [address] Laboratory Report Ordering Provider Test Date Status KETANBENYJOELLEN 12/14/2023 12:53:00 Final Observation Date Value Abnormality Reference (Units ) Status T4, Free 12/14/2023 12:53:00 1.1 0.9-1.7 (n g/dL) Final Performing Location [facility] - [address] [facility] [address]
--- OUTSIDE RECORDS SUMMARY | 2024-04-25 23:56 | External Medical Summary ---
Author Name Unknown Address Unknown Organization K01:LABORATORY [facility] [place] - [address] [place] [address] Laboratory Report Ordering Provider Test Date Status JANI MANZO 12/12/2023 16:42:00 Final EAC cholesteatoma

M ultiple other species of aerobic and/or anaerobic bacteria.
Moderate growth normal shlomo
No further workup routinely performed Observation Date Value Abnormality Reference (Units ) Status Bacteria identified in Specimen by Culture 12/12/2023 16:42:00 [id number]^STAPHY LOCOCCUS AUREUS Abnormal Final Few Staphylococcus aureus Bacteria identified in Specimen by Culture 12/12/2023 16:42:00 [id number]^BACTEROIDES FRAGILIS Abnormal Final One colony Bacteroides fragi lis Gram Stain 12/12/2023 16:42:00 Occasional P olymorphonuclear leukocytes Abnormal Final Gram Stain 12/12/2023 16:42:00 Many Gram positive cocci Abno rmal Final Gram Stain 12/12/2023 16:42:00 Many Gram negative bacilli Ab normal Final Gram Stain 12/12/2023 16:42:00 Moderate Gram positive bacill i Abnormal Final Performing Location LABORATORY [facility] [place] - [address] [place] [address] Ordering Provider Test Date Status JANI MANZO 12/12/2023 16:42:00 Final Observation Date Value Abnormality Reference (Units ) Status Clindamycin 12/12/2023 16:42:00 <=0.25 Susceptible Final Erythromycin susceptibility 12/12/2023 16:42:00 <=0.25 Susceptible Final Oxacillinsusceptibility 12/12/2023 16:42:00 0.5 Susceptible Final Tetracyclinesusceptibility 12/12/2023 16:42:00 <=1 Susceptible Final TMP-SMZ susceptibility 12/12/2023 16:42:00 <=10 Susceptible Final Vancomycinsusceptibility 12/12/2023 16:42:00 1 Susceptible Final Test: Culture, Ear, Aerobic and Anaerobic
Specimen Source: Ear, Left
Specimen Type: Aspirate
Specimen Date: 12/12/2023 4:42 PM
Result Date: 12/15/2023 2:46 PM
Result Status: Final result
Abnormal: Yes
Resulting Lab: LABORATORY [facility] [place]
[address]
[place] [address]

CULTURE

Few Staphylococcus aureus (Abnormal)

One colony Bacteroides fragilis (Abnormal)

Multiple other species of aerobic and/or anaerobic bacteria.Moderate growth
normal floraNo further workup routinely performed

STAIN

Occasional Polymorphonuclear leukocytes

Many Gram positive cocci

Many Gram negative bacilli

Moderate Gram positive bacilli

SUSCEPTIBILITY

Staphylococcus
aureus
METHOD MICROBROTH
DILUTIONS

CLINDAMYCIN <=0.25 Susceptible
ERYTHROMYCIN <=0.25 Susceptible
OXACILLIN 0.5 Susceptible
TETRACYCLINE <=1 Susceptible
TRIMETH/SULFAMETHOXAZOLE <=10 Susceptible
VANCOMYCIN 1 Susceptible

null Performing Location LABORATORY [facility] [place] - [address] [facility] [address]
--- OUTSIDE RECORDS SUMMARY | 2024-04-25 23:56 | External Medical Summary ---
Author Name Unknown Address Unknown Organization K01:LABORATORY [place] [address] [facility] [address] Laboratory Report Ordering Provider Test Date Status NAVEEN POWELL 12/14/2023 12:53:00 Final Observation Date Value Abnormality Reference (Units ) Status [place] light chains, Free, Serum 12/14/2023 12:53:00 40.28 Above high normal 3.30-19.40 (mg/L) Final [place] light chains, free, Serum 12/14/2023 12:53:00 22.16 5.71-26.30 (mg/L) Final KAPPA LAMBDA F[facility] RATIO 12/14/2023 12:53:00 1.82 Above high normal 0.26-1.65 Final Performing Location LABORATORY [facility] [place] - [facility] [place] [address]
--- OUTSIDE RECORDS SUMMARY | 2024-04-25 23:56 | External Medical Summary | Summary of Care ---
Author Name Unknown Organization [facility] Address [address] [place] [address] Phone [phone] Care Team Providers Care Peoplesoft Hr Developer Name Role Phone Jad Boone MD Primary Care Provider Encounter Details Date Type Department Care Team (Late st Contact Info) Description 12/15/2023 Population Health External Data Unspecified Department Allergies Active Allergy Reactions Criticality Noted Date Comments Bee Venom Hives High 03/14/2017 documented as of this encounter (statuses as of 12/15/2023) Medications Medication Sig Dispensed Refills Start Date End Date Status Bacitracin Zinc 500 UNIT/GM External Ointment Apply [...] to 5 days. 11 Tablet 0 12/12/2023 12/17/2023 Active Omeprazole 20 MG Oral Capsule Delayed Release (PriLOSEC) Take 1 Capsule by mouth in the morning. 90 Capsule 1 11/15/2022 Suspended Additional Information Vitamin D3 1.25 MG (77434 UT) Oral Capsule Take 1 Capsule by mouth once a week. 12 Capsule 3 01/30/2023 Suspended Additional Information Patient taking differently:50,000 Units Oral QWEEK,Every Monday, Reported on 05/18/2023 Atorvastatin Calcium 20 MG Oral Tablet (Lipitor)Indicat ions:Coronary artery disease involving nondalton coronary artery of nondalton heart without angina pectoris TAKE 1 TABLET, BY MOUTH, IN THE MORNING. 90 Tablet 1 03/04/2023 Suspended Additional Information Acetaminophen 325 MG Oral Tablet (Tylenol) Take 2 Tablets by mouth every 6 hours as needed for Pain, Mild. 30 Tablet 0 04/03/2023 Suspended Additional Information Multivitamin Adult Oral Tablet Take by mouth every evening. 0 Suspended Furosemide 20 MG Oral Tablet (Lasix)Indicatio [...] 56 g 2 09/29/2023 Suspended Additional Information Warfarin Sodium 5 MG Oral Tablet (Coumadin)Indica tions:PAF (paroxysmal atrial fibrillation) ([facility]) Take 1 Tablet by mouth every evening. 2/8: 10 mg; Otherwise 5 mg every Mon, Mon, Mon; 7.5 mg all other days and as directed by [facility] 100 Tablet 1 10/04/2023 Suspended Additional Information guaiFENesin 400 MG Oral TabletIndication s:Sinus congestion Take 1 Tablet by mouth every 4 hours as needed (cough or sinus drainage). 100 Tablet 0 10/04/2023 Suspended Additional Information Ventolin HFA 108 (90 Base) MCG/ACT Inhalation Aerosol Solution Inhale 2 Puffs by mouth every 4 hours as needed for Shortness of Breath. 0 Suspended Lisinopril 10 MG Oral Tablet (Prinivil)Indica tions:Chronic heart failure with preserved ejection fraction (HFpEF) ([facility]) Take 1 Tablet by mouth in the morning. 90 Tablet 3 11/10/2023 Suspended Additional Information documented as of this encounter (statuses as of 12/15/2023) Active Problems Problem Noted Date Diagnosed Date [...] fibrillation) 10/18/2018 Coronary artery disease invo lving nondalton coronary artery without angina pectoris 01/07/2015 intermediate [...] as of this encounter (statuses as of 12/15/2023) Resolved Problems Problem Noted Date Diagnosed Date [...] as of this encounter (statuses as of 12/15/2023) Immunizations Name Administration Dates Next Due COVID-19 [...] Otolaryngology/Head & Neck/Facial Plastic Surgery [address] [place] [address] Gurvinder Garcia MD [address] [place] [address] 01/18/2024 1:30 PM EDT Office Visit Radiation Oncology, [facility] [address] [place], [place] [phone] Shelly Rashid MD [address] [place] [address] 02/13/2024 9:20 AM EDT Office Visit Family [place] [address] [place] [address] Jad Boone MD [facility] [address] [place] [address] 06/06/2024 9:30 AM EDT [facility] [address] [place], [place] [phone] Yas Mckinnon CRNP [address] [place], [place] [phone] Health Maintenance Due Date Last Done Comments Albumin/Creatinine Ratio 1963 Hepatitis C Screening 1963 Zoster Vaccines (2 of 3) 06/26/2014 05/01/2014 *SPIROMETRY ONCE FOR ASTHMA-ADULT 07/14/2022 COVID-19 Vaccine ( season) 2023 06/01/2023, 06/09/2022, 12/31/2021, Additional history exists *NEPHROLOGY REFERRAL DUE TO RESISTANT HTN 09/25/2023 Depression Screening 09/18/2024 09/18/2023 GFR 12/04/2024 12/05/2023, 03/04/2024, 07/24/2023, Additional history exists DTaP,Tdap,and Td Vaccines [...] this encounter Medical Devices Implanted Type Area Lead Caster Helper Device Identifier Shelf Expiration Date Model / Serial / Lot Connector Nerve 2mm 15mm - [id number] Implanted:Qty: 1 on 04/27/2023 by Dudley Hinojosa MD at OR [facility] Left: Face [employer] [id number] 12/24/2024 [id number] / / [id number] Alloderm 4x7 Thin 0.8-1.2 (28 Units) - [id number] - [id number] Implanted:Qty: 28 on 04/27/2023 by Dudley Hinojosa MD at OR [facility] Left: Face ABBVIE 12/18/2024 [id number] / [id number] / [id number] Sheeting Monisha 2x3in X.020in - [id number] Implanted:Qty: 1 on 04/27/2023 by Dudley Hinojosa MD at OR [facility] Left: Ear [employer]IED [employer] 09/25/2024- / [id number] Sheeting Monisha 2x3 In X.005in - [id number] Implanted:Qty: 1 on 12/12/2023 by Gurvinder Garcia MD at OR [facility] Left: Ear [employer]IED [employer] 04/05/2026- / [id number] documented as of this encounter Advance Directives Documents on File Type Date Recorded Patient Coroner Technician Expl anation ELOY 04/26/2023 [place] DERS FOR LIFE-SUSTAINING TREATMENT Latest Code Status on File Code Status Date Activated Date Inactivated Comments Full Code 12/12/2023 9:52 PM This orde r reflects the patients wishes and were consensually [...] Relationship Healthcare Agent [facility] Child Power of Floater Operator Care Teams Peoplesoft Hr Developer Relationship Specialty Start Date End Date Jad Boone MD [address] [place] [address] [place] [address] PCP - General Family Medicine 09/20/23 documented as of this encounter
--- OUTSIDE RECORDS SUMMARY | 2024-04-25 23:56 | External Medical Summary | Summary of Care ---
Author Name Unknown Organization [facility] Address [address] [place] [address] Phone [phone] Care Team Providers Care Odd Job Worker Name Role Phone Jad Boone MD Primary Care Provider Reason for Visit * Reason Onset Date Comments Surgery 12/01/2023 Encounter Details Date Type Department Care Team (Late st Contact Info) Description 12/01/2023 Telephone Otolaryngology/Head & Neck/Facial Plastic Surgery [address] [place], [place] [phone] Dudley Hinojosa MD [address] [place] [address] [place] [address] Surgery Allergies Active Allergy Reactions Criticality Noted Date Comments Bee Venom Hives High 03/14/2017 documented as of this encounter (statuses as of 12/08/2023) Medications Medication Sig Dispensed Refills Start Date End Date Status Omeprazole 20 MG Oral Capsule Delayed Release (PriLOSEC) Take 1 Capsule by mouth in the morning. 90 Capsule 1 11/15/2022 Active Vitamin D3 1.25 MG (89436 UT) Oral Capsule Take 1 Capsule by mouth once a week. 12 Capsule 3 01/30/2023 Active Additional Information Patient taking differently:50,000 Units Oral QWEEK,Every Monday, Reported on 05/18/2023 Atorvastatin Calcium 20 MG Oral Tablet (Lipitor)Indicatio ns:Coronary artery disease involving tyonek coronary artery of tyonek heart without angina pectoris TAKE 1 TABLET, [...] diastolic CHF (congestive heart failure) ([facility]) Take 1 Tablet by mouth in [...] (Coumadin)Indicati ons:PAF (paroxysmal atrial fibrillation) ([facility]) Take 1 Tablet by mouth every evening. 09/28: 10 mg; Otherwise 5 mg every Mon, Mon, Mon; 7.5 mg all other days and as directed by [facility] 100 Tablet 1 10/04/2023 [...] with preserved ejection fraction (HFpEF) ([facility]) Take 1 Tablet by mouth in the morning. 90 Tablet 3 11/10/2023 Active documented as of this encounter (statuses as of 12/08/2023) Active Problems Problem Noted Date Diagnosed Date [...] tyonek coronary artery without angina pectoris 01/07/2015 manager [...] as of this encounter (statuses as of 12/08/2023) Resolved Problems Problem Noted Date Diagnosed Date [...] as of this encounter (statuses as of 12/08/2023) Immunizations Name Administration Dates Next Due COVID-19 [...] Telephone Encounter - Jessica Peters RN - 12/01/2023 8:52 AM EDT Call received from patient. Offered surgery date of 12/12/23. Patient and son Brody agreeable to same. Patient requesting Brody be called with surgery arrival time. Message forwarded to anticoagulation clinic for management of Coumadin preop. Jessica Peters PhD RN project finance analyst Otolaryngology documented in this encounter Plan of Treatment Upcoming Encounters Date Type Department Care Team (Latest Contact Info) Description 12/11/2023 9:40 AM EDT Nurse Only Ancillary, [address] [place] [address] Story, Nurse, RN [address] [place] [address] 12/12/2023 12:37 PM EDT Hospital Encounter OR GM, OPERATING ROOM [facility], [place] [address] [place] [phone] Gurvinder Garcia MD [address] [place] [address] 12/12/2023 12:37 PM EDT - 12/12/2023 5:43 PM EDT Surgery OR C, OPERATING ROOM [facility], [place] [address] [place] [address] Gurvinder Gracia MD [address] [place] [address] RECONSTRUCTION EXTERNAL AUDITORY CANAL DUE TO INJURY 12/13/2023 6:45 AM EDT Anticoagulation Pharmacy Call Center [address] [place] [address] [facility], [facility] [address] [facility] [place] [address] 01/18/2024 1:30 PM EDT Office Visit Radiation Oncology, [facility] [address] [place] [address] Eros Faust MD [address] [place] [id number] 02/13/2024 9:20 AM EDT Office Visit Family [facility], [place] [address] [place] [address] Jad Boone MD [address] [place] [address] 06/06/2024 9:30 AM EDT Office Visit Cardiology, [place] [address] [facility] [place] [address] Yas Mckinnon CRNP [address] [facility] [place], [place] [phone] Scheduled Procedures Name Priority Associated Diagnoses Date/Ti [...] this encounter Medical Devices Implanted Type Area Brake Drum Lathe Operator Device Identifier Shelf Expiration Date Model / Serial / Lot Connector Nerve 2mm 15mm - [id number] Implanted:Qty: 1 on 04/27/2023 by Dudley Hinojosa MD at OR [facility] Left: Face [employer] [id number] 12/24/2024 [id number] / / [id number] Alloderm 4x7 Thin 0.8-1.2 (28 Units) - [id number] - [id number] Implanted:Qty: 28 on 04/27/2023 by Dudley Hinojosa MD at OR [facility] Left: Face ABBVIE 12/18/2024 [id number] / [id number] / [id number] Sheeting Monisha 2x3in X.020in - [id number] Implanted:Qty: 1 on 04/27/2023 by Dudley Hinojosa MD at OR [facility] Left: Ear ALLIED [employer] 09/25/2024 [id number] / / [id number] documented as of this encounter Advance Directives Documents on File Type Date Recorded Patient Report Manager Expl anation POLST 04/26/2023 [place] OR [facility] FOR LIFE-SUSTAINING TREATMENT Latest Code [...] Name Relationship Healthcare Agent Relationshi p Communication [facility] Child Power of Recorder Helper Gravity Prospecting Care Teams Odd Job Worker Relationship Specialty Start Date End Date Jad Boone MD [address] [facility] [address] [place] [address] PCP - General Family Medicine 09/20/23 documented as of this encounter
--- OUTSIDE RECORDS SUMMARY | 2024-04-25 23:56 | External Medical Summary ---
Author Name Unknown Address Unknown Organization K01:[place] [facility] [place] [facility] [address] [facility] [address] Laboratory Report Ordering Provider Test Date Status NAVEEN POWELL 12/14/2023 12:53:00 Final Observation Date Value Abnormality Reference (Units) Status PARAPROTEIN NORMAL/ABNORMAL 12/14/2023 12:53:00 Normal Normal Final Protein 12/14/2023 12:53:00 6.5 6.0-8.3 (g/dL) Final Albumin/Protein.total [Pure mass fraction] in Serum or Plasma by Electrophoresis 12/14/2023 12:53:00 3.30 3.30-4.40 (g/dL) Final Alpha 1 globulin/Protein.tota l [Pure mass fraction] in Serum or Plasma by Electrophoresis 12/14/2023 12:53:00 0.24 0.10-0.30 (g/dL) Final Alpha 2 globulin/Protein.tota l [Pure mass fraction] in Serum or Plasma by Electrophoresis 12/14/2023 12:53:00 0.89 0.60-1.00 (g/dL) Final Beta globulin/Protein.tota l [Pure mass fraction] in Serum or Plasma by Electrophoresis 12/14/2023 12:53:00 0.80 0.80-1.30 (g/dL) Final Gamma globulin/Protein.tota l [Pure mass fraction] in Serum or Plasma by Electrophoresis 12/14/2023 12:53:00 1.27 0.70-1.70 (g/dL) Final Protein Fractions [Interpretation] in Serum or Plasma by Electrophoresis Narrative 12/14/2023 12:53:00 Normal serum protein electrophoretic pattern. Final Performing Location [facility] [place] [address] [facility] [address]
--- OUTSIDE RECORDS SUMMARY | 2024-04-25 23:56 | External Medical Summary ---
Author Name Unknown Address Unknown Organization K01:LABORATORY [facility] [place] - [address] [place] [address] Laboratory Report Ordering Provider Test Date Status NAVEEN POWELL 12/14/2023 12:53:00 Final Observation Date Value Abnormality Reference (Units ) Status TSH 12/14/2023 12:53:00 11.10 Above high normal 0. 27-4.20 (uIU/mL) Final Performing Location LABORATORY C - [address] [place] [address]
--- OUTSIDE RECORDS SUMMARY | 2024-04-25 23:56 | External Medical Summary ---
Author Name Unknown Address Unknown Organization K01:[place] [facility] [place] [address] [place] [address] Laboratory Report Ordering Provider Test Date Status NAVEEN POWELL 12/14/2023 12:53:00 Final Observation Date Value Abnormality Reference (Units) Status PARAPROTEIN NORMAL/ABNORMAL 12/14/2023 12:53:00 Normal Normal Final Immunofixation for Serum or Plasma 12/14/2023 12:53:00 No monoclonal gammopathy detected. Final Performing Location [place] [facility] [place] [address] [place] [address]
--- OUTSIDE RECORDS SUMMARY | 2024-04-25 23:56 | External Medical Summary ---
Author Name Unknown Address Unknown Organization : Laboratory Report Ordering Provider Test Date Status JENNYFER CARO 12/12/2023 16:29:31 Final Observation Date Value Abnormality Reference (Units ) Status Glucose Point of Care 12/12/2023 16:29:31 98 70-120 (mg/dL) Final Performing Location
--- OUTSIDE RECORDS SUMMARY | 2024-04-25 23:56 | External Medical Summary | Summary of Care ---
Author Name Unknown Organization [facility] Address [address] [place] [address] Phone [phone] Care Team Providers Care Brake Operator Helper Name Role Phone Emma Alonzo MD Primary Care Provider Reason for Visit * Reason Onset Date Comments Hospital Follow-Up 12/13/2023 2wk hd/fu ayesha t requested thanks Iza Encounter Details Date Type Department Care Team (Late st Contact Info) Description 12/13/2023 Telephone Otolaryngology/Head & Neck/Facial Plastic Surgery [address] [place] [address] Gordo Hinojosa MD [address] [place] [id number] Hospital Follow-Up (2wk hd/fu appt request... Allergies Active Allergy Reactions Criticality Noted Date Comments Bee Venom Hives High 03/14/2017 documented as of this encounter (statuses as of 12/13/2023) Medications Medication Sig Dispensed Refills Start Date End Date Status Bacitracin Zinc 500 UNIT/GM External Ointment Apply topically to affected area 2 times a day. Apply to left ear/neck suture/staple lines and bolsters twice per day. Please keep the bolsters moist. 120 g 0 12/12/2023 Active Ciprofloxacin HCl 500 [...] as needed for Pain, Severe or Pain, Moderate for up to 5 days. 11 Tablet 0 12/12/2023 12/17/2023 Active Omeprazole 20 MG Oral Capsule Delayed Release (PriLOSEC) Take 1 Capsule by mouth in the morning. 90 Capsule 1 11/15/2022 Suspended Additional Information Vitamin D3 1.25 MG (36042 UT) Oral Capsule Take 1 Capsule by mouth once a week. 12 Capsule 3 01/30/2023 Suspended Additional Information Patient taking differently:50,000 Units Oral QWEEK,Every Monday, Reported on 05/18/2023 Atorvastatin Calcium 20 MG Oral Tablet (Lipitor)Indicat ions:Coronary artery disease involving tribal coronary artery of tribal heart without angina pectoris TAKE 1 TABLET, [...] (Lasix)Indicatio ns:Chronic diastolic CHF (congestive heart failure) ([facility]) Take 2 Tablets by mouth in the morning. 180 Tablet 1 08/15/2023 Suspended Additional Information Metoprolol Succinate ER 25 MG Oral Tablet Extended Release 24 Hour (Toprol XL)Indications:C hronic diastolic CHF (congestive heart failure) ([facility]) Take 1 Tablet by [...] Oral Tablet (Coumadin)Indica tions:PAF (paroxysmal atrial fibrillation) ([facility]) Take 1 Tablet by mouth every evening. 09/28: 10 mg; Otherwise 5 mg every Tue, Wed, Mon; 7.5 mg all other days and as directed by [facility] 100 Tablet 1 10/04/2023 Suspended Additional [...] as of this encounter (statuses as of 12/13/2023) Active Problems Problem Noted Date Diagnosed Date [...] fibrillation) 10/18/2018 Coronary artery disease invo lving tribal coronary artery without angina pectoris 01/07/2015 senior [...] as of this encounter (statuses as of 12/13/2023) Resolved Problems Problem Noted Date Diagnosed Date [...] as of this encounter (statuses as of 12/13/2023) Immunizations Name Administration Dates Next Due COVID-19 [...] encounter Miscellaneous Notes * Telephone Encounter - Iza Keys OSA - 12/13/2023 6:13 AM EDT Order RETURN APPT [IP355] (Order [id number]) Roland Corrigan 12/12/2023 10:39 AM Admission Description: 78 year old male Department: GP2 IP [facility] Message Patient Name: ROLAND CORRIGAN([id number]) Sex: Male : 1945 PCP: EMMA ALONZO Center: [facility] Types of orders made on 12/12/2023: Code Status, Communication, Diet, IP Admission, IP Post Discharge , Lab, Medica tions, Nursing, Pathology, Point of Care Testing, Respiratory Order Date:12/12/2023 Ordering User:KULWANT CASTORENA [[id number]] Attending Provider:Gurvinder Garcia MD [[id number]] Authorizing Provider: Kulwant Castorena MD [[id number]] Department:[place] [facility][[id number]] Order Specific Information Order: RETURN APPT [CUSTOM: IP355] Order #: [id number]: 1 Priority: Routine Class: Nursing Unit Department (Single Entry) -> Otolaryngology Appt Needed Within: (Specify # of Days, Weeks, Months) -> 2 Wks Provider -> GORDO HINOJOSA Released on: 12/12/2023 10:07 PM Priority: Routine Class: Nursing Unit Department (Single Entry) -> Otolaryngology Appt Needed Within: (Specify # of Days, Weeks, Months) -> 2 Wks Pr ovider -> GORDO HINOJOSA Released on: 12/12/2023 10:07 PM Order Information Date and Time Department Released By/Authorizing 12/12/2023 10:07 PM Gp2 documented in this encounter Plan of Treatment Upcoming Encounters Date Type Department Care Team (Late st Contact Info) Description 01/18/2024 1:30 PM EDT Office Visit Radiation Oncology, [facility] [address] [place] [address] Eros Faust MD [address] [place] [address] 02/13/2024 9:20 AM EDT Office Visit [place] [address] [place] [address] Emma Alonzo MD [address] [facility] [address] [place] [address] 06/06/2024 9:30 AM EDT [facility] [address], [place] [phone] Yas Mckinnon CRNP [address], [place] [phone] Health Maintenance Due Date Last Done Comments [...] this encounter Medical Devices Implanted Type Area Parcel Post Order Clerk Device Identifier Shelf Expiration Date Model / Serial / Lot Connector Nerve 2mm 15mm - [id number] Implanted:Qty: 1 on 04/27/2023 by Gordo Hinojosa MD at [place] [facility] Left: Face [employer] [id number] 12/24/2024 [id number] / / [id number] Alloderm 4x7 Thin 0.8-1.2 (28 Units) - [id number] - [id number] Implanted:Qty: 28 on 04/27/2023 by Gordo Hinojosa MD at [place] [facility] Left: Face ABBVIE 12/18/2024 [id number] / [id number] / [id number] Sheeting Monisha 2x3in X.020in - [id number] Implanted:Qty: 1 on 04/27/2023 by Gordo Hinojosa MD at [place] [facility] Left: Ear [employer] 09/25/2024- / [id number] Sheeting Monisha 2x3 In X.005in - [id number] Implanted:Qty: 1 on 12/12/2023 by Gurvinder Garcia MD at [place] [facility] Left: Ear [employer] 04/05/2026- / [id number] documented as of this encounter Advance Directives Documents on File Type Date Recorded Patient Eyeglass Frames Inspector Expl anation POLST 04/26/2023 [place] DERS FOR LIFE-SUSTAINING TREATMENT Latest Code Status on File Code Status Date Activated Date Inactivated Comments Full Code 12/12/2023 9:52 PM This order reflects the patients wishes [...] Name Relationship Healthcare Agent Relationshi p Communication [facility] Adult Child Power of Crating And Moving Estimator Care Teams Brake Operator Helper Relationship Specialty Start Date End Date Emma Alonzo MD [address] [place] [address] [place] [address] PCP - General Family Medicine 09/20/23 documented as of this encounter
--- OUTSIDE RECORDS SUMMARY | 2024-04-25 23:56 | External Medical Summary ---
Author Name Unknown Address Unknown Organization K01:[facility] [place] [address] [facility] [address] Laboratory Report Ordering Provider Test Date Status TRE YUNG 12/12/2023 14:41:51 Final Observation Date Value Abnormality Reference (Units ) Status Body temperature 12/12/2023 14:41:51 37.0 (C) Final pH of Arterial blood 12/12/2023 14:41:51 7.370 7.350-7.450 (units) Final Carbon dioxide [Partial pressure] in Arterial blood 12/12/2023 14:41:51 45.2 Above high normal 35.0-45.0 (mmHg) Final Oxygen [Partial pressure] in Arterial blood 12/12/2023 14:41:51 142.0 Above high normal 75.0-100.0 (mmHg) Final Base excess, Arterial 12/12/2023 14:41:51 0.6 -2.0-2.0 (mmol/L) Final Hemoglobin [Mass/volume] in Blood by Oximetry 12/12/2023 14:41:51 8.9 Below low normal 14.0-16.8 (g/dL) Final HCT, calc. 12/12/2023 14:41:51 27.6 Below low normal 40.0-48.4 (%) Final The Hematocrit reference int erval is based on adult population.
This method is intended for trending and screening purposes only.
A "Complete Blood Count" is more accurate and should be ordered if clinically indicated. Oxyhemoglobin, Arterial (FO2HB) 12/12/2023 14:41:51 96.1 94.0-99.0 (% total Hgb) Final Carboxyhemoglobin 12/12/2023 14:41:51 1.9 Above high normal <=1.5 (% total Hgb) Final Smokers: 0-9.0 % Methemoglobin 12/12/2023 14:41:51 1.0 <=1.5 (% total Hgb) Final Deoxyhemoglobin/Hemog lobin.total in Arterial blood 12/12/2023 14:41:51 1.0 0.0-5.0 (% total Hgb) Final Oxygen content in Arterial blood 12/12/2023 14:41:51 12.3 Below low normal 15.0-24.0 (%vol) Final Potassium, Whole Blood 12/12/2023 14:41:51 4.1 3.5-5.1 (mmol/L) Final Sodium, Whole Blood 12/12/2023 14:41:51 141 135-146 (mmol/L) Final Chloride, Whole Blood 12/12/2023 14:41:51 106 98-107 (mmol/L) Final Calcium.ionized [Moles/volume] in Blood by Ion-selective membrane electrode (ISE) 12/12/2023 14:41:51 1.21 1.13-1.32 (mmol/L) Final Anion gap, Whole Blood 12/12/2023 14:41:51 9.3 7.0-15.0 (mmol/L) Final Glucose, whole blood 12/12/2023 14:41:51 92 70-120 (mg/dL) Final Oxygen/Total gas setting [Volume Fraction] Ventilator 12/12/2023 14:41:51 Not Provided (%) Final O2 FLOW, ARTERIAL - [facility] 12/12/2023 14:41:51 Not Provided (L/min) Final Bicarbonate, Venous, POC (i-STAT) 12/12/2023 14:41:51 25.5 23.0-31.0 (mmol/L) Final Performing Location [facility] [address] [facility] [address]
--- OUTSIDE RECORDS SUMMARY | 2024-04-25 23:56 | External Medical Summary | Summary of Care ---
Author Name Unknown Organization [facility] Address [address] [place] [address] Phone [phone] Care Team Providers Care Real Estate Investment Analyst Name Role Phone Jad Boone MD Primary Care Provider Reason for Visit * Reason Comments Wound Recheck Encounter Details Date Type Department Care Team (Late st Contact Info) Description 12/08/2023 2:40 PM EDT Nurse Only Ancillary, [facility] [address] [place], [place] [phone] Massey, Nurse, RN [address] [place] [id number] Wound Recheck Allergies Active Allergy Reactions Criticality Noted Date Comments Bee Venom Hives High 03/14/2017 documented as of this encounter (statuses as of 12/08/2023) Medications Medication Sig Dispensed Refills Start Date End Date Status Omeprazole 20 MG Oral Capsule Delayed Release (PriLOSEC) Take 1 Capsule by mouth in the morning. 90 Capsule 1 11/15/2022 Active Vitamin D3 1.25 MG (30662 UT) Oral Capsule Take 1 Capsule by mouth once a week. 12 Capsule 3 01/30/2023 Active Additional Information Patient taking differently:50,000 Units Oral QWEEK,Every Monday, Reported on 05/18/2023 Atorvastatin Calcium 20 MG Oral Tablet (Lipitor)Indicatio ns:Coronary artery disease involving [place]uiqs[place] coronary artery of [place] heart without angina pectoris TAKE 1 TABLET, [...] (Lasix)Indications :Chronic diastolic CHF (congestive heart failure) ([facility]) Take 2 Tablets by mouth in the morning. 180 Tablet 1 08/15/2023 Active Metoprolol Succinate ER 25 MG Oral Tablet Extended Release 24 Hour (Toprol XL)Indications:Chr onic diastolic CHF (congestive heart failure) ([facility]) Take 1 Tablet by mouth in the [...] Oral Tablet (Coumadin)Indicati ons:PAF (paroxysmal atrial fibrillation) ([facility]) Take 1 Tablet by mouth every evening. 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 Pt had used calamine lotion last night. I used warm water and soap and washed the lotion off of his legs. Dried with a towel. Then I applied unna boot, rolled gauze and coban to BLE. Pt tolerated well and will return Monday around 10am to have unna boot removed.Per Dr. Boone orders last nurse visit. documented in this encounter Plan of Treatment Upcoming Encounters Date Type Department Care Team (Latest Contact Info) Description 12/11/2023 9:40 AM EDT Nurse Only Ancillary, [place] [place] [phone] Massey, Nurse, RN [address] [place] [phone] 12/12/2023 12:37 PM EDT Hospital Encounter [facility], OPERATING ROOM [facility], [facility] [address] [place] [address] Gurvinder Garcia MD [address] [place] [address] 12/12/2023 12:37 PM EDT - 12/12/2023 5:43 PM EDT Surgery OR [facility], OPERATING ROOM [facility], [facility] [address] [place] [address] Gurvinder Garcia MD [address] [place] [address] RECONSTRUCTION EXTERNAL AUDITORY CANAL DUE TO INJURY 12/13/2023 6:45 AM EDT Anticoagulation Pharmacy Call Center [phone] [facility] [place] [phone] [facility], [facility] [address] [facility] [place] [address] 01/18/2024 1:30 PM EDT Office Visit Radiation Oncology, [address] [address] Eros Faust MD [address] [place] [address] 02/13/2024 9:20 AM EDT Office Visit Family [facility], [place] [address] [address] [place] [address] Jad Boone MD [address] [place] [address] 06/06/2024 9:30 AM EDT Office Visit Cardiology, [facility] [place] [address] [place] [address] Yas Mckinnon CRNP [address] [place] [address] Scheduled Procedures Name Priority Associated Diagnoses Date/Ti [...] this encounter Medical Devices Implanted Type Area [place] Pilot Device Identifier Shelf Expiration Date Model / Serial / Lot Connector Nerve 2mm 15mm - [id number] Implanted:Qty: 1 on 04/27/2023 by Dudley Hinojosa MD at OR [facility] Left: Face [employer] [id number] 12/24/2024 [id number] / / [id number] Alloderm 4x7 Thin 0.8-1.2 (28 Units) - [id number] - [id number] Implanted:Qty: 28 on 04/27/2023 by Dudley Hinojosa MD at OR [facility] Left: Face ABBVIE 12/18/2024 [id number] / [id number] / [id number] Sheeting Monisha 2x3in X.020in - [id number] Implanted:Qty: 1 on 04/27/2023 by Dudley Hinojosa MD at OR [facility] Left: Ear [employer] 09/25/2024 [id number] / / [id number] documented as of this encounter Advance Directives Documents on File Type Date Recorded Patient Eastern Philosophy Professor Expl anation POL 04/26/2023 [place] OR RUST FOR LIFE-SUSTAINING TREATMENT Latest Code [...] Name Relationship Healthcare Agent [facility] Communication [facility] Adult Child Power of Commissioner Of Conciliation Care Teams Real Estate Investment Analyst Relationship Specialty Start Date End Date Jad Boone MD [address] [place] [address] [place] [address] PCP - General Family Medicine 09/20/23 documented as of this encounter
--- OUTSIDE RECORDS SUMMARY | 2024-04-25 23:56 | External Medical Summary ---
Author Name Unknown Address Unknown Organization : Laboratory Report Ordering Provider Test Date Status JENNYFER CARO 12/12/2023 12:24:09 Final Therapeutic ranges for non-o perative patients:
Prophylaxsis/treatment of DVT: (Range:2.0-3.0)
Treatment of pulmonary embolism:(Range:2.0-3.0)
Prevention of systemic embolism from:
-tissue heart valves
-acute myocardial infarction
-valvular heart disease
-atrial fibrillation
(Range: 2.0-3.0)
Mechanical prosthetic valves: (Range: 2.5-3.5) Observation Date Value Abnormality Reference (Units ) Status INR in Capillary blood by Coagulation assay 12/12/2023 12:24:09 1.2 (INR) Final Performing Location
--- OUTSIDE RECORDS SUMMARY | 2024-04-25 23:56 | External Medical Summary | Summary of Care ---
Author Name Unknown Organization [facility] Address [address] [place] [address] Phone [phone] Care Team Providers Care Seasonal Clerk Name Role Phone Jad Boone MD Primary Care Provider Reason for Visit * Reason Comments Consultation Squamous Cell Carcin whitney of face * Evaluate & Treat - Unlimited Visits (Within 3 days (urgent)) - Authorized Specialty Diagnoses / Procedures Referred By Maximino madrid Referred To Contact Radiation Oncology Diagnoses Squamous cell carcinoma of face Anahy Lion MD [address] [place] [address] Referral ID Status Reason Start Date Expiration Date Visits Requested Visits Authorized [id number] Authorized Specialty Services Required 05/10/2023 [id number] Encounter Details Date Type Department Care Team (Late st Contact Info) Description 05/18/2023 10:00 AM EDT Office Visit Radiation Oncology, [facility] [address] [place] [address] Eros Faust MD [address], [place] [id number] Squamous cell carcinoma of preauricular region* Allergies Active Allergy Reactions Criticality Noted Date Comments Bee Venom Hives High 03/14/2017 documented as of this encounter (statuses as of 12/18/2023) Medications Medication Sig Dispensed Refills Start Date End Date Status Omeprazole 20 MG Oral Capsule Delayed Release (PriLOSEC) Take 1 Capsule by mouth in the morning. 90 Capsule 1 11/16/19 Active Vitamin D3 1.25 MG (93535 UT) Oral Capsule Take 1 Capsule by mouth once a week. 12 Capsule 3 01/31/20 Active Additional Information Patient taking differently:50,000 Units Oral QWEEK,Every Monday, Reported on 05/18/2023 Atorvastatin Calcium 20 MG Oral Tablet (Lipitor)Indicati ons:Coronary artery disease involving quileute coronary artery of quileute heart without angina pectoris TAKE 1 TABLET, BY MOUTH, IN THE MORNING. 90 Tablet 1 03/04/20 Active Acetaminophen 325 MG Oral Tablet (Tylenol) Take 2 Tablets by mouth every 6 hours as needed for Pain, Mild. 30 Tablet 0 04/03/20 23 Active Albuterol Sulfate HFA 108 (90 Base) MCG/ACT Inhalation Aerosol SolutionIndicatio ns:Mild intermittent asthma without complication Inhale 2 Puffs by mouth every 4 hours as needed for Wheezing. 18 g 5 06/17/20 21 023 Discontinued Warfarin Sodium 4 MG Oral Tablet (Coumadin)Indicat ions: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,Atrial fibrillation (HCC) Take by mouth 1.5-2 Tablets in the morning. As directed by anticoagulation clinic. 180 Tablet 3 05/02/20 22 024 Discontinued Metoprolol Succinate ER 25 MG Oral Tablet Extended Release 24 Hour (Toprol XL) Take 1 Tablet by mouth in the morning. 90 Tablet 3 10/18/19 23 023 Discontinued(Re fill) oxyCODONE HCl 5 MG Oral Tablet (Oxy IR) Take 1 Tablet by mouth every 6 hours as needed for Pain, Severe. 20 Tablet 0 04/03/20 23 023 Discontinued Artificial Tears 83-15 % Ophthalmic Ointment Instill into the left eye every night at bedtime. 3.5 g 0 05/01/20 23 023 Discontinued Polyvinyl Alcohol-Povidone PF 1.4-0.6 % Ophthalmic Solution (Refresh) Instill 1 Drop into the left eye every 4 hours while awake. 30 Each 1 05/01/20 23 023 Discontinued PEG 3350 17 GM/SCOOP Oral Powder 0 04/03/20 23 023 Discontinued Antifungal Clotrimazole 1 % External Cream 0 05/01/20 23 024 Discontinued(Al dication List Clean Up) Cephalexin 500 MG Oral CapsuleIndication s:Squamous cell carcinoma of face Take 1 Capsule by mouth in the morning and 1 Capsule at noon and 1 Capsule before bedtime. 40 Capsule 0 05/10/20 23 023 Discontinued Furosemide 20 MG Oral Tablet (Lasix) Take 2 Tablets by mouth in the morning. 30 Tablet 5 05/11/20 23 023 Discontinued(Re fill) Bisacodyl 10 MG Rectal Suppository Administer 1 Suppository into the rectum in the morning. Insert 1 suppository rectally every 72 hours as needed for constipation if MOM ineffective . 0 023 Discontinued Sennosides-Docusa te Sodium 8.6-50 MG Oral Tablet Take 1 Tablet by mouth in the morning. As needed for constipation . 0 023 Discontinued documented as of this encounter (statuses [...] quileute coronary artery without angina pectoris 01/07/2015 care [...] Smoking Tobacco: Former Cigarettes Q uit: 2004 Smokeless Tobacco: Never Tobacco Cessation:Counseling Given: No Comments:smoked, and quit in 2003 Alcohol Use [...] Sign Reading Time Taken Comments Blood Pressure 153/80 05/18/2023 10:42 AM EDT Pulse 55 05/18/2023 10:42 AM EDT Temperature 36.7 C (98.1 F) 05/18/2023 1 0:42 AM EDT Respiratory Rate 18 05/18/2023 10:4 2 AM EDT Oxygen Saturation 96% 05/18/2023 10: 42 AM EDT room air, at rest Inhaled Oxygen Concentration - - Weight 101.2 kg (223 lb) 05/18/2023 10: 42 AM EDT Height 193 cm (6' 4") 05/18/2023 10:42 AM EDT Body Mass Index 27.14 05/18/2023 10:42 AM EDT documented in this encounter Functional [...] as of this encounter Progress Notes * Eros Faust MD - 05/19/2023 3:24 PM EDT RAD[facility], [facility] LOCATION: Radiation Oncology Clinic Stephen Varela [phone] 77 year old Stephen Varela was seen in consultation by Radiation Oncology on 05/18/2023. REFERRING PHYSICIAN: Dr. Greg Monroy SITE OF MALIGNANCY: Left preauricular/facial HISTOPATHOLOGY: Cutaneous SCC STAGE: Cancer Staging No matching staging information was found for the patient. Stage III, pPT3, pN0, M0 CURRENT THERAPY: S/p WLE of left facial mass including left parotidectomy, left level 1-4 neck dissection and submental artery island reconstruction on 04/27/2023 Postop adjuvant radiation therapy pending PRIOR THERAPY: Nil DIAGNOSTIC HISTORY: 03/29/2023 CT [...] 2. No acute intra-abdominal or pelvic findings. 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 Patient was seen in [facility] ER in early March with cervical spine [...] AND NECK 8th Edition - Protocol posted: 2CUTANEOUS SQUAMOUS CELL CARCINOMA OF THE HEAD AND [...] pT3 pN Category pN0 [facility] ([facility]) Tumor Classification System High-risk Factors Tumor diameter greater than or equal to 2 cm Perineural invasion greater than or equal to 0.1 mm in caliber [facility] Tumor Classification T2b . (As per nursing Patient today reports there is an opening in surgical field again. Patient and bus transportation manager are requesting photos be sent via [employer] Text to Jarred Perez, a resident with ENT at [facility]). 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 of anticoagulant therapy Z79.01 Coronary artery disease involving quileute coronary artery without angina pectoris I25.10 PAF (paroxysmal atrial fibrillation) ([facility]) I48.0 Mild intermittent asthma without complication J45.20 Other specified peripheral vascular diseases ([facility]) I73.89 Chronic diastolic CHF (congestive heart failure) ([facility]) I50.32 Essential hypertension with goal blood pressure less than 140/90 I10 Dyslipidemia, goal LDL below 70 E78.5 Atypical migraine G43.009 Other specified anemias D64.89 Suspected sleep apnea R29.818 Facial mass R22.0 Closed T10 fracture ([facility]) S22.079A Heart failure, diastolic, with acute decompensation ([facility]) I50.33 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 Past Surgical History: Procedure Laterality Date FACE/SCALP DEEP TUMOR REMOVAL, 2 CM OR MORE Left 04/27/2023 EXCISION FACE/SCALP DEEP TUMOR, 2 CM OR MORE performed by Dudley Hinojosa MD at OR [facility] ISLAND PEDICLE FLAP N/A 04/27/2023 ISLAND PEDICLE FLAP performed by Dudley Hinojosa MD at OR [facility] REMOVAL OF NECK LYMPH NODES Left 04/27/2023 CERVICAL LYMPHADENECTOMY COMPLETE performed by Dudley Hinojosa MD at OR [facility] REMOVAL OF PAROTID GLAND/TUMOR N/A 04/27/2023 EXCISION PAROTID TOTAL WITH DISSECTION FACIAL NERVE performed by Dudley Hinojosa MD at OR [facility] REMOVAL OF TONSILS, AGE 12+ REPAIR HIP FRACTURE(S), W/FIXATION Right REPAIR SLIDING HERNIA Current Outpatient Medications Medication Sig Dispense Refill Albuterol Sulfate HFA 108 (90 Base) MCG/ACT Inhalation Aerosol Solution Inhale 2 Puffs by mouth every 4 hours as needed for Wheezing. 18 g 5 Warfarin Sodium 4 MG Oral Tablet (Coumadin) Take by mouth 1.5-2 Tablets in the morning. As directedby anticoagulation clinic. 180 Tablet 3 Metoprolol Succinate ER 25 MG Oral Tablet Extended Release 24 Hour (Toprol XL) Take 1 Tablet by mouth in the morning. 90 Tablet 3 Omeprazole 20 MG Oral Capsule Delayed Release (PriLOSEC) Take 1 Capsule by mouth in the morning. 90Capsule 1 Vitamin D3 1.25 MG (67446 UT) Oral Capsule Take 1 Capsule by [...] needed for Pain, Mild. 30 Tablet 0 oxyCODONE HCl 5 MG Oral Tablet (Oxy IR) Take 1 Tablet by mouth every 6 hours as needed for Pain, Severe. 20 Tablet 0 Artificial Tears 83-15 % Ophthalmic Ointment Instill into the left eye every night at bedtime. 3.5 g 0 Polyvinyl Alcohol-Povidone PF 1.4-0.6 % Ophthalmic Solution (Refresh) Instill 1 Drop into the left eye every 4 hours while awake. 30 Each 1 Cephalexin 500 MG Oral Capsule Take 1 Capsule by mouth in the morning and 1 Capsule at noon and 1 Capsule before bedtime. 40 Capsule 0 Furosemide 20 MG Oral Tablet (Lasix) Take 2 Tablets by mouth in the morning. 30 Tablet 5 Bisacodyl 10 MG Rectal Suppository (Dulcolax) Administer 1 Suppository into the rectum in the morning. Insert 1 suppository rectally every 72 hours as needed for constipation if MOM ineffective . Sennosides-Docusate Sodium 8.6-50 MG Oral Tablet (Senna S) Take 1 Tablet by mouth in the morning. As needed for constipation . PEG 3350 17 GM/SCOOP Oral Powder Antifungal Clotrimazole 1 % External Cream No current facility-administered medications for this visit. Review of patient's allergies indicates: Allergen Reactions Bee Venom Hives Social History Socioeconomic History Marital status: Spouse name: Not on file Number of children: Not on file Years of education: Not on file Highest education level: Not on file Occupational History Not on file Tobacco Use Smoking status: Former Types: Cigarettes Quit date: 2003 Years since quittin.7 Smokeless tobacco: Never Tobacco comments: smoked, and quit in 2003 Vaping Use Vaping Use: Never used Substance and Sexual Activity Alcohol use: No Drug use: No Sexual activity: Not on file Other Topics Concern Not on file Social History Narrative - Lives with Spouse Home is Smoke Free Second marriage. Mr. Varela has three adult children ([place] [facility]) and seven grands, and his has two. Family History: [facility]. Social Determinants of Health Financial Resource Strain: Not on file Food Insecurity: Not on file Transportation Needs: Not on file Physical Activity: Not on file Stress: Not on file Social Connections: Not on file Intimate Partner Violence: Not on file Housing Stability: Not on file No family history on file. REVIEW OF SYSTEMS: Please see history of present illness above. The patient denies headaches, nausea, emesis, changes in bowel movements, changes in urination, or loss of appetite. Positive for pain or bony pain related to his recent fracture, not from the head and neck area The patient denies altered cognition, speech, swallow, sensation, or vision. Positive for gait or strength The patient denies chest pain, shortness of breath, fever, chills, cough, or hemoptysis. Positive for N/A The patient denies any other new complaints including cardiovascular, respiratory, gastrointestinal, genitourinary, or neurologic. The remainder of review of systems is otherwise unremarkable. PHYSICAL EXAMINATION: BP 153/80 (BP Site: Left Arm, BP Position: Sitting, BP Cuff Size: Regular) | Pulse 55 | Temp 36.7 C (98.1 F) (Infrared ) | Resp 18 | Ht 1.93 m (6' 4") | Wt 101.2 kg (223 lb) | SpO2 96% Comment: room air, at rest | BMI 27.14 kg/m | BSA 2.33 m Wt Readings from Last 4 Encounters: 05/18/23 101.2 kg (223 lb) 05/11/23 101.6 kg (224 lb) 04/26/23 103.9 kg (229 lb) 04/19/23 99.8 kg (220 lb) Weight: weight recently stable General: alert and oriented, no apparent distress, cognition normal, speech normal, and swallow normal Back: no tenderness to spinal palpation and percussion Eyes: sclera non-icteric bilaterally, pupils react equally to light, and extra- ocular movements intact bilaterally Head and face: face asymmetrical, healing wound on left facial area/preauricular/left ear Ears, nose, and throat: oral cavity and oropharynx clear and without mucosal lesions or thrush Lymphatics: no pre-auricular or post-auricular adenopathy, no cervical adenopathy, no supraclavicular adenopathy, no infravicular adenopathy, no axillary adenopathy, and no inguinal adenopathy Lungs: air entry good, no clubbing, trachea central, clear to percussion, auscultation, and no adventitial breath sounds Cardiovascular: regular rate and rhythm Abdomen: soft non-tender and non-distended, positive bowel sounds, and no hepatosplenomegaly Lower extremities: Mildly edematous bilaterally. Apparently patient had significant fluid drained recently Neurologic: Grossly no focal deficits, mild numbness around the postop site Wounds: wounds healing well and without evidence of wound infection or breakdown. Mild drainage noted. Clinically no evidence of infection ZUBROD PERFORMANCE SCALE: 3 capable of only limited self-care, confined to bed or chair more than 50% of waking hours PAIN: Site: Denies Severity: N/a RECENT LABS: Results for orders placed or performed in visit on 05/15/23 CBC Result Value Ref Range WBC 7.46 4.00 - 10.80 K/uL RBC 3.72 4.50 - 5.25 M/uL HGB 10.0 (L) 14.0 - 16.8 g/dL HCT 33.3 (L) 40.0 - 48.4 % MCV 89.5 82.0 - 99.5 fL MCH 26.9 27.0 - 34.0 pg MCHC 30.0 32.0 - 36.0 g/dL RDW 21.0 11.5 - 15.5 % PLT 202 140 - 400 K/uL MPV 9.7 6.6 - 11.1 fL nRBCs 0 <=0 /100 WBCs Results for orders placed or performed in visit on 05/15/23 DIFFERENTIAL, AUTOMATED Result Value Ref Range WBC 7.46 4.00 - 10.80 K/uL Neutrophils % 75.8 (H) 40.0 - 75.0 % Lymphocytes % 6.4 (L) 18.0 - 42.0 % Monocytes % 11.7 (H) 1.0 - 11.0 % Eosinophils % 5.0 0.0 - 6.0 % Basophils % 0.7 0.0 - 2.0 % Immature Granulocytes % 0.4 0.0 - 2.0 % Absolute Neutrophils 5.66 1.80 - 7.70 K/uL Absolute Lymphocytes 0.48 (L) 1.00 - 4.80 K/ul Absolute Monocytes 0.87 0.00 - 1.10 K/uL Absolute Eosinophils 0.37 0.00 - 0.70 K/uL Absolute Basophils 0.05 0.00 - 0.20 K/uL Absolute Immature Granulocytes 0.03 0.00 - 0.20 K/uL CBC Result Value Ref Range WBC 7.46 4.00 - 10.80 K/uL RBC 3.72 4.50 - 5.25 M/uL HGB 10.0 (L) 14.0 - 16.8 g/dL HCT 33.3 (L) 40.0 - 48.4 % MCV 89.5 82.0 - 99.5 fL MCH 26.9 27.0 - 34.0 pg MCHC 30.0 32.0 - 36.0 g/dL RDW 21.0 11.5 - 15.5 % PLT 202 140 - 400 K/uL MPV 9.7 6.6 - 11.1 fL nRBCs 0 <=0 [...] g/dL ALT 16 10 - 50 U/L PATHOLOGY: # Please see HPI above RADIOGRAPHIC IMAGING: # Please see HPI above OTHER DIAGNOSTIC STUDIES OR PROCEDURES: # Please see HPI above ASSESSMENT: 77-year-old male with recent diagnosis of 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 Perineural invasion is present. The surgical resection margins are negative for carcinoma and dysplasia, cosest surgical resection margin is the posterior and deep margin, present 0.4 cm from tumor. Postop adjuvant radiation therapy pending, as recommended by Head and neck tumor board Now seen today in Radiation Oncology consultation. He is currently in rehab at [facility]. for his spine fracture, then will be transitioned to assisted living in [place]. He is a candidate for postop adjuvant radiation therapy to the left facial, auricular, left neck region including to base of skull area, planned total dose 6000 cGy/30 fractions. The treatment rationale, side effects, benefits, and alternatives of the above radiation therapy was discussed with the patient and he appeared to understand have agreed to proceed. Consent was signed. Simulation to be arranged PLAN: Concurrent Chemotherapy: no The patient voiced understanding of all of the above. All questions and concerns were addressed in an apparently satisfactory manner. Thank you very much for having asked us to evaluate this patient. I spent a total of Greater than 55 mins (exact time 65 mins) on the date of service in preparation,delivery, and documentation of the care provided to Stephen Varela excluding any time spent in the performance of separately billed services. Eros Faust MD 05/18/2023 documented in this encounter Nursing Notes * Shante Latoya M, AGRICULTURAL SERVICE TECHNICIAN - 05/18/2023 10:46 AM EDT Chief Complaint Patient presents with Consultation Squamous Cell Carcinoma of face Patient presents with bus transportation manager from [place] for consultation. Patient presents to [facility] ER on 03/26/23 with complaints of a fall. He had a CT scan of his head completed on 03/26/23 which revealed the following: The studies are significantly motion degraded without gross evidence of an acute intracranial abnormality or acute cervical spine fracture. 2. Large exophytic mass in the region of the left parotid gland, likely on account of neoplasm rather than hematoma, although please correlate with direct visualization. Assuming there is no evidenceof hematoma in this region, ENT evaluation is recommended on a nonemergent outpatient basis to exclude underlying malignancy. 3. Partially visualized pulmonary emphysema and bilateral pleural effusions. He was then transferred to [facility] and admitted from 03/27/23-04/03/23. Patient had a biopsy performed on 04/03/23 and pathology from that revealed invasive squamous cell carcinoma. Patient was presented at the Head/Neck Tumor Board on 04/12/23 and recommendations were as follows: After multidisciplinary discussion, the official tumor board recommendation was for wide local excision, local or regional flap reconstruction, left parotidectomy and neck dissection. He then followed up with Dr. Hinojosa on 04/19/23 and they planned for surgical resection. Patient was then admitted to [facility] again 04/26/23-05/01/23. He underwent surgery on 04/27/23. At follow up visit with Dr. Hinojosa on 05/10/23 there was an area of dehiscence and he expected radiation to take place in approximately 2 weeks. Patient today reports there is an opening in surgical field again. Patient and bus transportation manager are requesting photos be sent via [employer] Text to Jarred Perez, a resident with ENT at [facility]. Dr. Faust was in to examine patient. He advised patient that he will be receiving approximately 6 weeks of treatment that will be given everyday Monday through Monday. He advised patient that he will be wearing a mask everyday for treatment. Patient informed side effects can include a skin reaction, irritation to the mouth/throat on that side, and hair loss. Patient also advised that he will not beimmune compromised, radioactive, or stomach sick. Informed consent obtained at today's visit. Patient is scheduled for simulation on 05/31/23 at 10AM. Appointment card given to patient's bus transportation manager along with screenshot of TT from ENT resident instructing them they can close the area if patient chooses or leave it to heal on its own. Dr. Faust recommended that patient just clean gently daily. Azeb, bus transportation manager, is requesting we fax OV note to Antonio Cheney when complete. documented in this encounter Plan of Treatment Upcoming Encounters Date Type Department Care Team (Late st Contact Info) Description 12/22/2023 11:00 AM EDT Office Visit Otolaryngology/Head & Neck/Facial Plastic Surgery [address] [place] [address] Gurvinder Garcia MD [address] [place] [address] 01/18/2024 1:30 PM EDT Office Visit Radiation Oncology, [facility] [address] [place] [address] Shelly Rashid MD [address] [place] [address] 02/13/2024 9:20 AM EDT Office Visit Family [facility] [place] [address] [place] [address] Jad Boone MD [address] [facility] [address] [place] [id number] 06/06/2024 9:30 AM EDT Office Visit Cardiology, [place] [address] [place] [address] Yas Mckinnon CRNP [address], [place] [id number] Health Maintenance Due Date Last Done Comments [...] this encounter Medical Devices Implanted Type Area Ribbon Lapper Tender Device Identifier Shelf Expiration Date Model / Serial / Lot Connector Nerve 2mm 15mm - [id number] Implanted:Qty: 1 on 04/27/2023 by Dudley Hinojosa MD at OR [facility] Left: Face [employer] [id number] 12/24/2024 [id number] / / [id number] Alloderm 4x7 Thin 0.8-1.2 (28 Units) - [id number] - [id number] Implanted:Qty: 28 on 04/27/2023 by Dudley Hinojosa MD at OR [facility] Left: Face [employer] 12/18/2024 [id number] / [id number] / [id number] Sheeting Monisha 2x3in X.020in - [id number] Implanted:Qty: 1 on 04/27/2023 by Dudley Hinojosa MD at OR [facility] Left: Ear [employer] 09/25/2024-700- / / [id number] Sheeting Monisha 2x3 In X.005in - [id number] Implanted:Qty: 1 on 12/12/2023 by Gurvinder Garcia MD at OR [facility] Left: Ear [employer] 04/05/2026700-05 / / [id number] documented as of this encounter Visit Diagnoses Diagnosis Squamous cell carcinoma of preauricular region- Primary Squamous cell carcinoma of skin, site unspecified documented in this encounter Advance Directives Documents on File Type Date Recorded 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
--- OUTSIDE RECORDS SUMMARY | 2024-04-25 23:56 | External Medical Summary ---
Author Name Unknown Address Unknown Organization [id number]:[facility] [place] [address] [facility] [address] Laboratory Report Ordering Provider Test Date Status KELL JEAN 12/12/2023 22:28:57 Final SCREENING Observation Date Value Abnormality Reference (Units ) Status SARS Coronavirus 2 12/12/2023 22:28:57 Negative N egative Final 2019 Novel Coronavirus not d etected.

This express test was developed and its performance characteristics determined by [facility]. It has not been cleared or approved [...] (RT-PCR) test, or a Centers for Disease Control-acceptable equivalent. The test is performed in a high complexity Clinical Laboratory Improvement Amendments-(CLIA) certified laboratory. The test is acceptable for SARS-CoV-2 diagnosis, surveillance, and travel within the [place] and to most countries. Please check with local testing authorities about requirements before travel.

The validation of bronchial specimens, tracheal aspirates, and sputum for this assay was developed and performance characteristics determined by [facility]. The validation of alternate specimen types has not been cleared or approved by the U.S. Food and Drug Administration (FDA). It has been determined that such clearance is not necessary. Performing Location [facility] [place] [facility] [address] [facility] [address]
--- OUTSIDE RECORDS SUMMARY | 2024-04-25 23:57 | External Medical Summary ---
Author Name Unknown Address Unknown Organization [id number]:[facility]ORY [facility] - [address] [address] Laboratory Report Ordering Provider Test Date Status CHERI CARTER 11/21/2023 06:29:00 Final Warfarin Therapy
INR: 2 .0-3.0 conventional anticoagulation
INR: 2.5- 3.5 high intensity anticoagulation Observation Date Value Abnormality Reference (Units ) Status PT 11/21/2023 06:29:00 20.4 Above high normal 11 .6-15.2 (seconds) Final INR 11/21/2023 06:29:00 1.7 Above high normal 0. 8-1.2 Final Performing Location LABORATORY [facility] - [address] [address]
--- OUTSIDE RECORDS SUMMARY | 2024-04-25 23:57 | External Medical Summary | Summary of Care ---
Author Name Unknown Organization [facility] Address [address] [place] [address] Phone [phone] Care Team Providers Care Cover Stripper Name Role Phone Jad Boone MD Primary Care Provider Reason for Visit * Precert (Within 10 days (routine)) - Authorized Specialty Diagnoses / Procedures Referred By Maximino t Referred To Contact Cardiac Studies Diagnoses Chronic diastolic CHF (congestive heart failure) (HCC) Paroxysmal atrial fibrillation (HCC) Procedures ECHO, COMPLETE (2D), TRANS-THORACIC Liss Herrera PA-C [address] [facility] [place] [address] Referral ID Status Reason Start Date Expiration Date V isits Requested Visits Authorized [id number] Authorized Precert 11/10/[id number] Encounter Details Date Type Department Care Team (Latest Contact Info) Description 11/21/2023 8:11 AM EDT - 11/21/2023 11:59 PM EDT Hospital Encounter Cardiac Studies, [facility] [address] [place] [address] Discharge Disposition: Home - Self Care Allergies Active Allergy Reactions Criticality Noted Date Comments Bee Venom Hives High 03/14/2017 documented as of this encounter (statuses as of 11/22/2023) Medications Medication Sig Dispensed Refills Start Date End Date Status Omeprazole 20 MG Oral Capsule Delayed Release (PriLOSEC) Take 1 Capsule by mouth in the morning. 90 Capsule 1 11/15/2022 Active Vitamin D3 1.25 MG (66419 UT) Oral Capsule Take 1 Capsule by mouth once a week. 12 Capsule 3 01/30/2023 Active Additional Information Patient taking differently:50,000 Units Oral QWEEK,Every Monday, Reported on 05/18/2023 Atorvastatin Calcium 20 MG Oral Tablet (Lipitor)Indicatio ns:Coronary artery disease involving ramona coronary artery of ramona heart without angina pectoris TAKE 1 TABLET, [...] (Lasix)Indications :Chronic diastolic CHF (congestive heart failure) ([facility]) Take 2 Tablets by mouth in the [...] all other days and as directed by [facility] Pharm[facility] 100 Tablet 1 10/04/2023 Active [...] as of this encounter (statuses as of 11/22/2023) Active Problems Problem Noted Date Diagnosed Date [...] fibrillation) 10/18/2018 Coronary artery disease invo lving ramona coronary artery without angina pectoris 01/07/2015 [facility] current use of anticoagulant therapy 0 05/01/2014 Overview: ICD-10 update of inactive term Heart failure, systolic, due to CAD 08/28/2012 Overview: ECHO 2011 - Segmental wall abnormality, severe hypokinesis of anterior septum, anterior wall, apex, distal inferior septum, distal inferior wall, and distal posterior wall EF 33% Mass of left parotid gland documented as of this encounter (statuses as of 11/22/2023) Resolved Problems Problem Noted Date Diagnosed Date [...] as of this encounter (statuses as of 11/22/2023) Immunizations Name Administration Dates Next Due COVID-19 [...] as of this encounter Miscellaneous Notes * Result Encounter Note - Liss Herrera PA-C - 11/21/2023 10:45 AM EDT Echo reviewed. Normal heart pumping function, moderate to severe tricuspid regurgitation. Will await nuclear stress test results. documented in this encounter Plan of Treatment Upcoming Encounters Date Type Department Care Team (Late st Contact Info) Description 11/28/2023 3:00 PM EDT Nurse Only Ancillary, [place] [address] [place] [address] [phone] [place], Nurse, RN [facility] [place] [address] 12/05/2023 5:20 PM EDT Anticoagulation Pharmacy Call Center [address] [facility] [place] [address] [facility], [facility] [address] [facility] [place] [address] 01/18/2024 1:30 PM EDT Office Visit Radiation Oncology, [facility] [address] [place] [address] Eros Faust MD 400 [place] [address] 02/13/2024 9:20 AM EDT Office Visit Family [place] [address] [place] [address] Jad Boone MD [facility] [address] [place] [address] [place] [address] 06/06/2024 9:30 AM EDT Office Visit Cardiology, [place] [address] [facility] [place] [address] Yas Mckinnon CRNP [address] [place] [address] Health Maintenance Due Date Last Done Comments Albumin/Creatinine Ratio 1963 Hepatitis C Screening 1963 Zoster Vaccines (2 of 3) 06/26/2014 05/01/2014 *SPIROMETRY ONCE FOR ASTHMA-ADULT 07/14/2022 COVID-19 Vaccine ( season) 2023 06/01/2023, 06/09/2022, 12/31/2021, Additional history exists *NEPHROLOGY REFERRAL DUE TO RESISTANT HTN 09/25/2023 Depression Screening 09/18/2024 09/18/2023 GFR 11/16/2024 11/17/2023, 12/11/2022, 07/17/2023, Additional history exists DTaP,Tdap,and Td Vaccines (2 [...] this encounter Medical Devices Implanted Type Area Weeder Device Identifier Shelf Expiration Date Model / Serial / Lot Connector Nerve 2mm 15mm - [id number] Implanted:Qty: 1 on 04/27/2023 by Dudley Hinojosa MD [place] [facility] Left: Face [employer] [id number] 12/24/2024 [id number] / / [id number] Alloderm 4x7 Thin 0.8-1.2 (28 Units) - [id number] - [id number] Implanted:Qty: 28 on 04/27/2023 by Dudley Hinojosa MD at [place] [facility] Left: Face ABBVIE 12/18/2024 [id number] / [id number] / [id number] Sheeting Monisha 2x3in X.020in - [id number] Implanted:Qty: 1 on 04/27/2023 by Dudley Hinojosa MD at [place] [facility] Left: Ear [employer] 09/25/2024 23-700-20 / / [id number] documented as of this encounter Procedures Procedure Name Priority Date/Time Associated Diagnosis Comments ECHO, COMPLETE (2D), TRANS-THORACIC Routine 11/21/2023 11:00 AM EDT Chronic heart failure with preserved ejection fraction (HFpEF) (HCC) Paroxysmal atrial fibrillation (HCC) documented in this encounter Results * ECHO, COMPLETE (2D), TRANS-THORACIC (11/21/2023 11:00 AM EDT) LEFT VENTRICULAR EJECTION FRACTION 55 % [facility] CARDIOLOG[facility] 11/21/2023 10:1 3 AM EDT Liss Herrera PA-C [facility] documented in this encounter Visit Diagnoses Diagnosis Chronic heart failure with preserved ejection fraction (HFpEF) (HCC) Paroxysmal atrial fibrillation (HCC) Atrial fibrillation documented in this encounter Advance Directives Documents on File Type Date Recorded Patient Search Planner Expl anation POLST 04/26/2023 [place] OR [facility] FOR LIFE-SUSTAINING TREATMENT Latest Code Status on [...] Agents on File Name Relationship Healthcare Agent [facility] Communication [facility] Adult Child Power of Marine Insulator Care Teams Cover Stripper Relationship Specialty Start Date End Date Jad Boone MD [address] [address] [place] [address] PCP - General Family Medicine 09/20/23 documented as of this encounter
--- OUTSIDE RECORDS SUMMARY | 2024-04-25 23:57 | External Medical Summary | Summary of Care ---
Author Name Unknown Organization [facility] Address [address] [place] [address] Phone [phone] Care Team Providers Care Retail Route Supervisor Name Role Phone Jad Boone MD Primary Care Provider Reason for Visit * Reason Onset Date Comments Order Request 12/05/2023 Encounter Details Date Type Department Care Team (Late st Contact Info) Description 12/05/2023 Telephone Pharmacy Call Center [address] [place] [address] [facility] [address] [place] [address] Order Request Allergies Active Allergy Reactions Criticality Noted Date Comments Bee Venom Hives High 03/14/2017 documented as of this encounter (statuses as of 12/05/2023) Medications Medication Sig Dispensed Refills Start Date End Date Status Omeprazole 20 MG Oral Capsule Delayed Release (PriLOSEC) Take 1 Capsule by mouth in the morning. 90 Capsule 1 11/15/2022 Active Vitamin D3 1.25 MG (24529 UT) Oral Capsule Take 1 Capsule by mouth once a week. 12 Capsule 3 01/30/2023 Active Additional Information Patient taking differently:50,000 Units Oral QWEEK,Every Monday, Reported on 05/18/2023 Atorvastatin Calcium 20 MG Oral Tablet (Lipitor)Indicatio ns:Coronary artery disease involving [place] coronary artery of [place] heart without angina pectoris TAKE 1 TABLET, [...] all other days and as directed by [facility] Pharmacy 100 Tablet 1 10/04/2023 Active [...] as of this encounter (statuses as of 12/05/2023) Active Problems Problem Noted Date Diagnosed Date [...] fibrillation) 10/18/2018 Coronary artery disease invo lving [place] coronary artery without angina pectoris 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 0 05/01/2014 Overview: ICD-10 update of inactive term Heart failure, systolic, due to CAD 08/28/2012 Overview: ECHO 2011 - Segmental wall abnormality, severe hypokinesis of anterior septum, anterior wall, apex, distal inferior septum, distal inferior wall, and distal posterior wall EF 33% Mass of left parotid gland documented as of this encounter (statuses as of 12/05/2023) Resolved Problems Problem Noted Date Diagnosed Date [...] as of this encounter (statuses as of 12/05/2023) Immunizations Name Administration Dates Next Due COVID-19 [...] encounter Miscellaneous Notes * Telephone Encounter - Liat Ruelas CPhT - 12/05/2023 9:16 AM EDT Pt currently at the lab and needs a new standing order for his PT/INR. Please place a new order. Liat Ruelas CPhT Doctor Of Naturopathic Medicine II [facility] ([facility]PS) (Formerly Telepharmacy) [phone] 12/05/2023 9:16 AM documented in this encounter Plan of Treatment Upcoming Encounters Date Type Department Care Team (Latest Contact Info) Description 12/05/2023 5:20 PM EDT Anticoagulation Pharmacy Call Center [address] [place] [address] [facility], [facility] [address] [place] [address] 12/07/2023 9:40 AM EDT Nurse Only Ancillary, [place] [address] [place] [address] [place], Nurse, RN [address] [place] [address] 12/12/2023 12:57 PM EDT Hospital Encounter [place] [facility], OPERATING ROOM [facility], [facility] [address] [place] [id number] Gurvinder Garcia MD [address] [place] [address] 12/12/2023 12:57 PM EDT - 12/12/2023 6:03 PM EDT Surgery OR [facility], OPERATING ROOM [facility] [address] [place] [address] Gurvinder Garcia MD [facility] [address] RECONSTRUCTION EXTERNAL AUDITORY CANAL DUE TO INJURY 01/18/2024 1:30 PM EDT Office Visit Radiation Oncology, [address] [address] Eros Faust MD [address] [place] [address] 02/13/2024 9:20 AM EDT Office Visit [facility] [address] [facility] [address] Jad Boone MD [address] [place] [address] 06/06/2024 9:30 AM EDT Office Visit Cardiology, [place] [address] [place] [address] Yas Mckinnon CRNP 400 [facility] [place] [address] Pending Results Name Type Priority Associated Diagnoses Date /Time PT INR Lab Routine PAF (paroxysmal atrial fibrillation) (HCC) 12/05/2023 9:19 AM EDT Scheduled Orders Name Type Priority Associated Diagnoses Orde r Schedule PT INR Lab Routine PAF (paroxysmal atrial fibrillation) (HCC) Other, Please specify in Comments field for 26 Occurrences starting 12/05/2023 until 12/04/2024 Scheduled Procedures Name Priority Associated Diagnoses Date/Ti me RECONSTRUCTION EXTERNAL AUDITORY CANAL DUE TO INJURY Squamous cell carcinoma of face 12/12/2023 12:57 PM EDT SPLIT GRAFT TRUNK ARM LEG LESS THAN 100SQ CM Squamous cell carcinoma of face 12/12/2023 12:57 PM EDT TYMPANOPLASTY MASTOIDECTOMY WITHOUT OSSICULAR RECONSTRUCTION Squamous cell carcinoma of face 12/12/2023 12:57 PM EDT Health Maintenance Due Date Last Done Comments Albumin/Creatinine Ratio 1963 Hepatitis C Screening 1963 Zoster Vaccines (2 of 3) 06/26/2014 05/01/2014 *SPIROMETRY ONCE FOR ASTHMA-ADULT 07/14/2022 COVID-19 Vaccine ( season) 2023 06/01/2023, 06/09/2022, 12/31/2021, Additional history exists *NEPHROLOGY REFERRAL DUE TO RESISTANT HTN 09/25/2023 Depression Screening 09/18/2024 09/18/2023 GFR 11/16/2024 11/17/2023, 12/0 11/2022, 07/17/2023, Additional history exists DTaP,Tdap,and Td Vaccines [...] this encounter Medical Devices Implanted Type Area Counter Person Device Identifier Shelf Expiration Date Model / Serial / Lot Connector Nerve 2mm 15mm - [id number] Implanted:Qty: 1 on 04/27/2023 by Dudley Hinojosa MD at OR [facility] Left: Face [employer] [id number] 12/24/2024 [id number] / / [id number] Alloderm 4x7 Thin 0.8-1.2 (28 Units) - [id number] - [id number] Implanted:Qty: 28 on 04/27/2023 by Dudley Hinojosa MD at OR [facility] Left: Face ABBVIE 12/18/2024 [id number] / [id number] / [id number] Sheeting Monisha 2x3in X.020in - [id number] Implanted:Qty: 1 on 04/27/2023 by Dudley Hinojosa MD at OR [facility] Left: Ear [employer] 09/25/2024 23-700-20 / / [id number] documented as of this encounter Visit Diagnoses Diagnosis PAF (paroxysmal atrial fibrillation) (HCC)- Primary Atrial fibrillation 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 documented in this encounter Advance Directives Documents on File Type Date Recorded Patient Press Puller Expl anation POLST 04/26/2023 [place] [facility] Latest Code Status on [...] Agents on File Name Relationship Healthcare Agent [facility] Communication [facility] Adult Child Power of Pest Technician Care Teams Retail Route Supervisor Relationship Specialty Start Date End Date Jad Boone MD [address] [place] [address] [place] [address] PCP - General Family Medicine 09/20/23 documented as of this encounter
--- OUTSIDE RECORDS SUMMARY | 2024-04-25 23:57 | External Medical Summary | Summary of Care ---
Author Name Unknown Organization [facility] Address [address] [place] [address] Phone [phone] Care Team Providers Care [employer] Assistant Football Coach Name Role Phone Jad Boone MD Primary Care Provider Reason for Visit * Reason Comments Outpatient Testing Encounter Details Date Type Department Care Team (Late st Contact Info) Description 12/05/2023 9:10 AM EDT Laboratory Laboratory Patient Service [address] [address] [address] Chronic heart failure with preserved ejection fraction (HFpEF) (HCC); Paroxysmal atrial fibrillation (HCC); HTN, goal below 140/90; PAF (paroxysmal atrial fibrillation) ([facility]) Allergies Active Allergy Reactions Criticality Noted Date Comments Bee Venom Hives High 03/14/2017 documented as of this encounter (statuses as of 12/05/2023) Medications Medication Sig Dispensed Refills Start Date End Date Status Omeprazole 20 MG Oral Capsule Delayed Release (PriLOSEC) Take 1 Capsule by mouth in the morning. 90 Capsule 1 11/15/2022 Active Vitamin D3 1.25 MG (89232 UT) Oral Capsule Take 1 Capsule by mouth once a week. 12 Capsule 3 01/30/2023 Active Additional Information Patient taking differently:50,000 Units Oral QWEEK,Every Monday, Reported on 05/18/2023 Atorvastatin Calcium 20 MG Oral Tablet (Lipitor)Indicatio ns:Coronary artery disease involving yocha dehe coronary artery of yocha dehe heart without angina pectoris TAKE 1 TABLET, [...] (Lasix)Indications :Chronic diastolic CHF (congestive heart failure) ([facility]) Take 2 Tablets by mouth in the morning. 180 Tablet 1 08/15/2023 Active Metoprolol Succinate ER 25 MG Oral Tablet Extended Release 24 Hour (Toprol XL)Indications:Chr onic diastolic CHF (congestive heart failure) ([facility] [...] Oral Tablet (Coumadin)Indicati ons:PAF (paroxysmal atrial fibrillation) ([facility]) Take 1 Tablet by mouth every evening. 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 0 [...] anemia 04/02/2022 Acute blood loss anemia 04/02/2022 03/03/2023 Hypoxia 03/31/2022 04/02/2022 TILLEY (dyspnea on exertion) [...] mRNA, LNP-s, No Pre serve, 2-Dose Series ([employer]) 11/26/2020,11/05/2020 Pneumococcal Conjugate Vacc, 13 Valent [...] PM EDT Anticoagulation Pharmacy Call Center [address] [facility] [place] [address] [facility] [address] [place] [address] 12/07/2023 9:40 AM EDT Nurse Only Ancillary, [place] [address] [place] [address] [place], Nurse, RN [address] [place] [phone] 12/12/2023 12:57 PM EDT Hospital Encounter OR [facility] [place], OPERATING ROOM [facility] [place], [facility] [address] [place] [address] Gurvinder Garcia MD [address] [place] [address] 12/12/2023 12:57 PM EDT - 12/12/2023 6:03 PM EDT Surgery OR [facility] [place], OPERATING ROOM [facility] [place], [facility] [address] [place] [address] Gurvinder Garcia MD [address] [place], [place] [phone] RECONSTRUCTION EXTERNAL AUDITORY CANAL DUE TO INJURY 01/18/2024 1:30 PM EDT Office Visit Radiation Oncology, [facility] [address] [place] [address] Eros Faust MD [address] [place] [address] 02/13/2024 9:20 AM EDT Office Visit Family Practice, [place] [address] [place] [address] Jad Boone MD [address] [place] [address] [place] [address] 06/06/2024 9:30 AM EDT Office Visit Cardiology, [place] [address] [place] [address] Yas Mckinnon CRNP [address] [place] [place] [address] Pending Results Name Type Priority Associated Diagnoses Date /Time BASIC METABOLIC PANEL Lab Routine Chronic heart failure with preserved ejection fraction (HFpEF) (HCC) Paroxysmal atrial fibrillation (HCC) HTN, goal below 140/90 12/05/2023 9:10 AM EDT PT INR Lab Routine PAF (paroxysmal atrial fibrillation) (HCC) 12/05/2023 9:19 AM EDT Scheduled Procedures Name Priority Associated Diagnoses Date/Ti [...] encounter Medical Devices Implanted Type Area Farm Marketer Device Identifier Shelf Expiration Date Model / Serial / Lot Connector Nerve 2mm 15mm - [id number] Implanted:Qty: 1 on 04/27/2023 by Dudley Hinojosa MD at OR [facility] [place] [place] Left: Face [employer] [id number] 12/24/2024 [id number] / / [id number] Alloderm 4x7 Thin 0.8-1.2 (28 Units) - [id number] - [id number] Implanted:Qty: 28 on 04/27/2023 by Dudley Hinojosa MD at OR [facility] [place] [place] Left: Face ABBVIE 12/18/2024 [id number] / [id number] / [id number] Sheeting Monisha 2x3in X.020in - [id number] Implanted:Qty: 1 on 04/27/2023 by Dudley Hinojosa MD at OR [facility] [place] [place] Left: Ear [employer] 09/25/2024 23-700-20 / / [id number] documented as of this encounter Visit Diagnoses Diagnosis Chronic heart failure with preserved ejection fraction (HFpEF) (HCC) Paroxysmal atrial fibrillation (HCC) Atrial fibrillation HTN, goal below 140/90 Unspecified essential hypertension PAF (paroxysmal atrial fibrillation) (HCC) Atrial fibrillation 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 documented in this encounter Advance Directives Documents on File Type Date Recorded Patient Data Conversion Developer Expl anation POLST 04/26/2023 [place] OR [facility] FOR LIFE-SUSTAINING TREATMENT [...] File Name Relationship Healthcare Agent [facility] Communication [facility] Adult Child Power of Medication Manager Care Teams [employer] Assistant Football Coach Relationship Specialty Start Date End Date Jad Boone MD [address] [facility] [address] [facility] [place] [address] PCP - General Family Medicine 09/20/23 documented as of this encounter
--- OUTSIDE RECORDS SUMMARY | 2024-04-25 23:57 | External Medical Summary | Summary of Care ---
Author Name Unknown Organization [facility] Address [address] [place] [address] Phone [phone] Care Team Providers Care Purchasing Engineer Name Role Phone Jad Boone MD Primary Care Provider Reason for Visit * Reason Onset Date Comments Test Results 11/27/2023 Encounter Details Date Type Department Care Team (Late st Contact Info) Description 11/27/2023 Telephone Cardiology, [facility] [address] [facility] [place] [address] Liss Herrera PA-C [address] [facility] [place] [address] Test Results Allergies Active Allergy Reactions Criticality Noted Date Comments Bee Venom Hives High 03/14/2017 documented as of this encounter (statuses as of 11/27/2023) Medications Medication Sig Dispensed Refills Start Date End Date Status Omeprazole 20 MG Oral Capsule Delayed Release (PriLOSEC) Take 1 Capsule by mouth in the morning. 90 Capsule 1 11/15/2022 Active Vitamin D3 1.25 MG (87785 UT) Oral Capsule Take 1 Capsule by mouth once a week. 12 Capsule 3 01/30/2023 Active Additional Information Patient taking differently:50,000 Units Oral QWEEK,Every Monday, Reported on 05/18/2023 Atorvastatin Calcium 20 MG Oral Tablet (Lipitor)Indicatio ns:Coronary artery disease involving anvik coronary artery of anvik heart without angina pectoris TAKE 1 TABLET, [...] :Chronic diastolic CHF (congestive heart failure) ([facility]) Take 2 Tablets by mouth in [...] atrial fibrillation) ([facility]) Take 1 Tablet by mouth every evening. 2/8: 10 mg; Otherwise 5 mg every Mon, Mon, Mon; 7.5 mg all other days and as directed by [facility] 100 Tablet 1 10/04/2023 Active guaiFENesin [...] as of this encounter (statuses as of 11/27/2023) Active Problems Problem Noted Date Diagnosed Date [...] fibrillation) 10/18/2018 Coronary artery disease invo lving anvik coronary artery without angina pectoris 01/07/2015 [facility] [...] as of this encounter (statuses as of 11/27/2023) Resolved Problems Problem Noted Date Diagnosed Date [...] as of this encounter (statuses as of 11/27/2023) Immunizations Name Administration Dates Next Due COVID-19 [...] encounter Miscellaneous Notes * Telephone Encounter - Liss Herrera PA-C - 11/27/2023 1:15 PM EDT I spoke with patient over phone and reviewed echo and nuclear stress test results. Echo with normalEF, moderate to severe tricuspid regurgitation. Nuclear stress test with a medium sized, severe intensity perfusion defect involving the distal anterior, lateral and septal mckeon extending into the true apex, that is fixed and most likely represents prior myocardial infarction. There is no significantmyocardium at jeopardy. Discussed with patient that he is high risk for perioperative complications. No further cardiac testing indicated at this time. He voices understanding of risk, states he would like to proceed with surgery, he is worried his ear is worsening. He is going to try to take a picture of his ear and sendto surgery team. All questions answered at this time. documented in this encounter Plan of Treatment Upcoming Encounters Date Type Department Care Team (Late st Contact Info) Description 11/28/2023 3:00 PM EDT Nurse Only Ancillary, [place] [address] [place] [address] [phone] [place], Nurse, RN [facility] [address] [place] [address] [phone] 12/05/2023 5:20 PM EDT Anticoagulation Pharmacy Call Center [address] [place] [address] [facility] [address] [place] [address] 01/18/2024 1:30 PM EDT Office Visit Radiation Oncology, [facility] [address] [place] [address] Eros Faust MD [address] [place] [address] 02/13/2024 9:20 AM EDT Office Visit Family [place] [address] [place] [address] Jad Boone MD [address] [place], [place] [address] [place] [address] 06/06/2024 9:30 AM EDT Office Visit Cardiology, [address] [place] [address] Yas Mckinnon CRNP [address] [place] [address] Health Maintenance Due Date Last Done Comments [...] this encounter Medical Devices Implanted Type Area Appliquer Zigzag Device Identifier Shelf Expiration Date Model / Serial / Lot Connector Nerve 2mm 15mm - [id number] Implanted:Qty: 1 on 04/27/2023 by Dudley Hinojosa MD at [place] [facility] Left: Face [employer] [id number] 12/24/2024 [id number] / / [id number] Alloderm 4x7 Thin 0.8-1.2 (28 Units) - [id number] - [id number] Implanted:Qty: 28 on 04/27/2023 by Dudley Hinojosa MD at OR [facility] Left: Face ABBVIE 12/18/2024 [id number] / [id number] / [id number] Sheeting Monisha 2x3in X.020in - [id number] Implanted:Qty: 1 on 04/27/2023 by Dudley Hinojosa MD at OR [facility] Left: Ear [employer] 09/25/2024 23-700-20 / / [id number] documented as of this encounter Advance Directives Documents on File Type Date Recorded 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
--- OUTSIDE RECORDS SUMMARY | 2024-04-25 23:57 | External Medical Summary ---
Author Name Unknown Address Unknown Organization [id number]:LAB[facility]ATORY [facility] - [address] [place] [address] Laboratory Report Ordering Provider Test Date Status SOCORRO MATRIN 12/05/2023 09:19:30 Final Standing order for pt/inr. < br/>Please draw pt/inr every 1 to 4 weeks as requested
Results to [facility]tico[facility]

Warfarin Therapy
INR: 2.0-3.0 conventional anticoagulation
INR: 2.5-3.5 high intensity anticoagulation Observation Date Value Abnormality Reference (Units ) Status PT 12/05/2023 09:19:30 20.3 Above high normal 11 .6-15.2 (seconds) Final INR 12/05/2023 09:19:30 1.7 Above high normal 0. 8-1.2 Final Performing Location LABORATORY [facility] - [address] [place] [address]
--- OUTSIDE RECORDS SUMMARY | 2024-04-25 23:57 | External Medical Summary | Summary of Care ---
Author Name Unknown Organization [facility] Address [address] [place] [address] Phone [phone] Care Team Providers Care Court Bailiff Or Sheriff Name Role Phone Jad Boone MD Primary Care Provider Encounter Details Date Type Department Care Team (Late st Contact Info) Description 11/21/2023 Orders Only Unspecified Department Liss Herrera PA-C [address] [facility] [place] [address] Allergies Active Allergy Reactions Criticality Noted Date Comments Bee Venom Hives High 03/14/2017 documented as of this encounter (statuses as of 11/26/2023) Medications Medication Sig Dispensed Refills Start Date End Date Status Omeprazole 20 MG Oral Capsule Delayed Release (PriLOSEC) Take 1 Capsule by mouth in the morning. 90 Capsule 1 11/15/2022 Active Vitamin D3 1.25 MG (58447 UT) Oral Capsule Take 1 Capsule by mouth once a week. 12 Capsule 3 01/30/2023 Active Additional Information Patient taking differently:50,000 Units Oral QWEEK,Every Monday, Reported on 05/18/2023 Atorvastatin Calcium 20 MG Oral Tablet (Lipitor)Indicatio ns:Coronary artery disease involving sleetmute coronary artery of [...] ons:PAF (paroxysmal atrial fibrillation) ([facility]) Take 1 Tablet by mouth every evening. 2/8: 10 mg; Otherwise 5 mg every e, Wed, Mon; 7.5 mg all other days and as directed by [facility] 100 Tablet 1 10/04/2023 Active [...] as of this encounter (statuses as of 11/26/2023) Active Problems Problem Noted Date Diagnosed Date [...] sleetmute coronary artery without angina pectoris 01/07/2015 terminal [...] as of this encounter (statuses as of 11/26/2023) Resolved Problems Problem Noted Date Diagnosed Date [...] as of this encounter (statuses as of 11/26/2023) Immunizations Name Administration Dates Next Due COVID-19 [...] 11/28/2023 3:00 PM EDT Nurse Only Ancillary, [place] [address] [facility] [address] Kb, Nurse, RN [address] [place] [address] 12/05/2023 5:20 PM EDT [facility] Pharm[facility] Call Center [address] [facility] [place] [address] [facility] 58 60 [facility] [place] [address] 01/18/2024 1:30 PM EDT Office Visit Radiation Oncology, [facility] [address] [place] [address] Eros Faust MD [address] [place] [address] 02/13/2024 9:20 AM EDT Office Visit Family Practice, [place] [address] [place] [address] Jad Boone MD [address] [place] [address] 06/06/2024 9:30 AM EDT Office Visit Cardiology, [place] 400 [place] [address] Yas Mckinnon CRNP [address] [place] [address] Health Maintenance Due Date Last Done Comments [...] this encounter Medical Devices Implanted Type Area Nail Professional Device Identifier Shelf Expiration Date Model / Serial / Lot Connector Nerve 2mm 15mm - [id number] Implanted:Qty: 1 on 04/27/2023 by Dudley Hinojosa MD at [place] [facility] [facility] Left: Face [employer] [id number] 12/24/2024 [id number] / / [id number] Alloderm 4x7 Thin 0.8-1.2 (28 Units) - [id number] - [id number] Implanted:Qty: 28 on 04/27/2023 by Dudley Hinojosa MD at OR [facility] [place] Left: Face ABBVIE 12/18/2024 [id number] / [id number] / [id number] Sheeting Monisha 2x3in X.020in - [id number] Implanted:Qty: 1 on 04/27/2023 by Dudley Hinojosa MD at OR [facility] [place] Left: Ear [employer] 09/25/2024 23-700-20 / / [id number] documented as of this encounter Procedures Procedure Name Priority Date/Time Associated Diagnosis Comments NM MYOCARDIAL PERFUSION IMAGING SPECT MULTIPLE STUDIES WITH PHARMACOLOGIC INTERVENTION Routine 11/21/2023 9:17 AM EDT documented in this encounter Results * NM MYOCARDIAL PERFUSION IMAGING SPECT MULTIPLE STUDIES WITH PHARMACOLOGIC INTERVENTION (11/21/2023 9:17 AM EDT) 11/21/2023 9:17 AM EDT Liss Herrera PA-C RAD NUCLEAR MED [facility] CARDIOLOGY documented in this encounter Advance Directives Documents on File Type Date Recorded 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
--- OUTSIDE RECORDS SUMMARY | 2024-04-25 23:57 | External Medical Summary ---
Author Name Unknown Address Unknown Organization K01:[facility] - [address] [facility] [address] Laboratory Report Ordering Provider Test Date Status FRANCIE ESCOBEDO 12/05/2023 09:10:54 Final Observation Date Value Abnormality Reference (Units ) Status BUN 12/05/2023 09:10:54 27 Above high normal 6-20 (mg/dL) Final Creatinine 12/05/2023 09:10:54 1.2 0.6-1.2 (mg/dL) Final Glomerular filtration rate/1.73 sq M.predicted [Volume Rate/Area] in Serum, Plasma or Blood by Creatinine-based formula (CKD-EPI) 12/05/2023 09:10:54 62 >=60 (mL/min) Final eGFR is calculated based on the CKD-EPI 2020 equation Sodium 12/05/2023 09:10:54 141 135-146 (m mol/L) Final Potassium 12/05/2023 09:10:54 4.7 3.5-5.1 (m mol/L) Final Cl 12/05/2023 09:10:54 104 98-107 (mm ol/L) Final CO2 12/05/2023 09:10:54 25 22-32 (mmo l/L) Final Anion gap 12/05/2023 09:10:54 12 7-15 (mmol /L) Final Glucose 12/05/2023 09:10:54 95 70-120 (mg /dL) Final Calcium 12/05/2023 09:10:54 9.2 8.4-10.2 ( mg/dL) Final Performing Location [facility] [address] [facility] [address] [facility] [address]
--- OUTSIDE RECORDS SUMMARY | 2024-04-25 23:57 | External Medical Summary | Summary of Care ---
Author Name Unknown Organization [facility] Address [address] [place] [address] Phone [phone] Care Team Providers Care Cardiology Associate Name Role Phone Jad Boone MD Primary Care Provider Reason for Referral * Precert (Within 10 days (routine)) - Pending Review Specialty Diagnoses / Procedures Referred By Contac t Referred To Contact Radiology Diagnoses Chronic diastolic CHF (congestive heart failure) (HCC) Paroxysmal atrial fibrillation (HCC) Procedures NM MYOCARD PERF IMG SPECT MULT STUDIES WITH PHARM Liss Mercado PA-C [address] [place] [address] Referral ID Status Reason Start Date Expiration Date Visits Requested Visits Authorized [id number] Pending Review Precert 11/11/[phone] Reason for Visit * Precert (Within 10 days (routine)) - Pending Review Specialty Diagnoses / Procedures Referred By Contac t Referred To Contact Radiology Diagnoses Chronic diastolic CHF (congestive heart failure) (HCC) Paroxysmal atrial fibrillation (HCC) Procedures NM MYOCARD PERF IMG SPECT MULT STUDIES WITH PHARM Liss Mercado PA-C [address] [place] [address] Referral ID Status Reason Start Date Expiration Date Visits Requested Visits Authorized [id number] Pending Review Precert 11/11/[phone] Encounter Details Date Type Department Care Team (Latest Contact Info) Description 11/21/2023 8:11 AM EDT - 11/21/2023 11:59 PM EDT Hospital Encounter Radiology, [facility] [address] [place] [id number] Discharge Disposition: Home - Self Care Allergies Active Allergy Reactions Criticality Noted Date Comments Bee Venom Hives High 03/14/2017 documented as of this encounter (statuses as of 11/22/2023) Medications Medication Sig Dispensed Refills Start Date End Date Status Omeprazole 20 MG Oral Capsule Delayed Release (PriLOSEC) Take 1 Capsule by mouth in the morning. 90 Capsule 1 11/15/2022 Active Vitamin D3 1.25 MG (30610 UT) Oral Capsule Take 1 Capsule by mouth once a week. 12 Capsule 3 01/30/2023 Active Additional Information Patient taking differently:50,000 Units Oral QWEEK,Every Monday, Reported on 05/18/2023 Atorvastatin Calcium 20 MG Oral Tablet (Lipitor)Indicatio ns:Coronary artery disease involving paimiut coronary artery of paimiut heart without angina pectoris TAKE 1 TABLET, [...] other days and as directed by [facility] 100 Tablet 1 10/04/2023 Active [...] the morning. 90 Tablet 3 11/10/2023 Active Hospital, Clinic, or Other Facility Administered Medication Ordered Dose Route Frequency Start Date End Date Status Regadenoson (Lexiscan) inj 0.4 mgIndications:Paroxysmal atrial fibrillation (HCC) 0.4 mg IV PUSH ONCE 11/21/2023 11/21/2023 Ended sodium chloride 0.9 % flush/inj 10 mLIndications:Paroxysmal atrial fibrillation (HCC) 10 mL IV PUSH ONCE PRN 11/21/2023 11/21/2023 Ended documented as of this encounter (statuses as [...] fibrillation) 10/18/2018 Coronary artery disease invo lving paimiut coronary artery without angina pectoris 01/07/2015 roasterman current use of anticoagulant therapy 0 05/01/2014 [...] Sign Reading Time Taken Comments Blood Pressure 186/90 11/21/2023 9:00 AM EDT Pulse 53 11/21/2023 9:00 AM EDT Temperature - - Respiratory Rate - [...] as of this encounter Miscellaneous Notes * Ancillary Progress Note - Ludivina Wilson RN - 11/21/2023 8:15 AM EDT Nuclear stress test completed. documented in this encounter Plan of Treatment Upcoming Encounters Date Type Department Care Team (Late st Contact Info) Description 11/28/2023 3:00 PM EDT Nurse Only Ancillary, [place] [address] [place] [address] Kb, Nurse, RN [address] [place] [address] 12/05/2023 5:20 PM EDT Anticoagulation Pharmacy Call Center [address] [facility] [place] [address] [facility] [address] 60 [facility] [place] [address] 01/18/2024 1:30 PM EDT Office Visit Radiation Oncology, [facility] [address] [place] [address] Eros Faust MD [address] [place] [address] 02/13/2024 9:20 AM EDT Office Visit Family [place] [address] [place] [address] [address] [facility] [address] [place] [address] 06/06/2024 9:30 AM EDT Office Visit Cardiology, [place] 400 [place] [address] Yas Mckinnon CRNP [address] [place] [address] Health Maintenance Due Date Last Done Comments [...] this encounter Medical Devices Implanted Type Area Lozenge Maker Helper Device Identifier Shelf Expiration Date Model / Serial / Lot Connector Nerve 2mm 15mm - [id number] Implanted:Qty: 1 on 04/27/2023 by Dudley Hinojosa [place] [facility] [place]: Face [employer] [id number] 12/24/2024 [id number] / / [id number] Alloderm 4x7 Thin 0.8-1.2 (28 Units) - [id number] - [id number] Implanted:Qty: 28 on 04/27/2023 by Dudley Hinojosa MD [place] [facility] [place]: Face ABBVIE 12/18/2024 [id number] / [id number] / [id number] Sheeting Monisha 2x3in X.020in - [id number] Implanted:Qty: 1 on 04/27/2023 by Dudley Hinojosa MD [place] [facility] Left: Ear [employer] 09/25/2024 23-700-20 / / [id number] documented as of this encounter Procedures Procedure Name Priority Date/Time Associated Diagnosis Comments NM MYOCARDIAL PERFUSION IMAGING SPECT MULTIPLE STUDIES WITH PHARMACOLOGIC INTERVENTION Routine 11/21/2023 12:48 PM EDT Chronic heart failure with preserved ejection fraction (HFpEF) (HCC) Paroxysmal atrial fibrillation (HCC) documented in this encounter Results * NM MYOCARD PERF IMG SPECT MULT STUDIES WITH PHARM INTERV (11/21/2023 12:48 PM EDT) Narrative Scheduling, Silent - 11/21/2023 12:48 PM EDT Results can be viewed in the patient's cardiology tab of Chart Review for this date of service. Liss Herrera PA-C RAD NUCLEAR MED documented in this encounter Visit Diagnoses Diagnosis Paroxysmal atrial fibrillation (HCC)- Primary Atrial fibrillation Chronic heart failure with preserved ejection fraction (HFpEF) (HCC) documented in this encounter Administered Medications Inactive Administered Medications - up to 3 most recent administrations Medication Order MAR Action Action Date Dose Rate Site Regadenoson (Lexiscan) inj 0.4 mg 0.4 mg, IV Push, ONCE, On 11/21/23 at 0823, For 1 dose, Inject over 10 seconds with 5-10 ml saline flush immediately after, Cardiac Studies_HODHOV Given 11/21/2023 9:47 AM EDT 0.4 mg sodium chloride 0.9 % flush/inj 10 mL 10 mL, IV Push, ONCE PRN Other, For Nuclear Stress Only - To follow Lexiscan Administration, Starting on e 11/21/23 at 0821, Until 11/21/23 at 1020, For 2 hours, 5-10 ml Saline Flush to Immediately Follow Lexiscan Injection, Cardiac Studies_HODHOV Given 11/21/2023 9:47 AM EDT 10 mL Technetium Tc 99m Sestamibi (Sestamibi) inj 28 millicurie 28 millicurie, Intravenous, ONCE, On 11/21/23 at 0921, For 1 dose, Radiology Medication Routing (Non-IR) Given 11/21/2023 9:21 AM EDT 28 millicuries Technetium Tc 99m Sestamibi (Sestamibi) inj 8 millicurie 8 millicurie, Intravenous, ONCE, On 11/21/23 at 0921, For 1 dose, Radiology Medication Routing (Non-IR) Given 11/21/2023 9:21 AM EDT 8 millicuries documented in this encounter Advance Directives Documents on File Type Date Recorded 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
--- OUTSIDE RECORDS SUMMARY | 2024-04-25 23:57 | External Medical Summary | Summary of Care ---
Author Name Unknown Organization [facility] Address [address] [place] [address] Phone [phone] Care Team Providers Care Second Crusher Name Role Phone Jad Boone MD Primary Care Provider Reason for Visit * Reason Comments Wound Recheck Unna boot BLE Encounter Details Date Type Department Care Team (Late st Contact Info) Description 12/04/2023 10:40 AM EDT Nurse Only Ancillary, Kb [facility] [place] [address] [phone] H[place], Nurse, RN [address] [place] [address] Wound Recheck (Unna boot BLE) Allergies Active Allergy Reactions Criticality Noted Date Comments Bee Venom Hives High 03/14/2017 documented as of this encounter (statuses as of 12/04/2023) Medications Medication Sig Dispensed Refills Start Date End Date Status Omeprazole 20 MG Oral Capsule Delayed Release (PriLOSEC) Take 1 Capsule by mouth in the morning. 90 Capsule 1 11/15/2022 Active Vitamin D3 1.25 MG (65757 UT) Oral Capsule Take 1 Capsule by mouth once a week. 12 Capsule 3 01/30/2023 Active Additional Information Patient taking differently:50,000 Units Oral QWEEK,Every Monday, Reported on 05/18/2023 Atorvastatin Calcium 20 MG Oral Tablet (Lipitor)Indicatio ns:Coronary artery disease involving flandreau coronary artery of flandreau heart without angina pectoris TAKE 1 TABLET, [...] all other days and as directed by [facility] 100 Tablet 1 10/04/2023 Active [...] as of this encounter (statuses as of 12/04/2023) Active Problems Problem Noted Date Diagnosed Date [...] fibrillation) 10/18/2018 Coronary artery disease invo lving flandreau coronary artery without angina pectoris 01/07/2015 custodial [...] as of this encounter (statuses as of 12/04/2023) Resolved Problems Problem Noted Date Diagnosed Date [...] as of this encounter (statuses as of 12/04/2023) Immunizations Name Administration Dates Next Due COVID-19 mRNA, LNP-s, No Pre serve, 2-Dose Series ([place] [employer]) 11/26/2020,11/05/2020 Pneumococcal Conjugate Vacc, 13 Valent (Prevnar) [...] Nursing Notes * Tere Campa CMA - 12/04/2023 11:49 AM EDT Pt came in for eval of BLE. Pt is scheduled for surgery on 12/11 for his L ear. They are wanting hislegs to be in good shape for the surgery. I had dr. Boone come in and evaluate this BLE. Dr. Boone suggested a week. Pt declined a week. They Dr. Boone offered coming back in 12/06 to have them removed and then put back on to be taken off 12/10. Pt at first agreed. After applying unna boot, rolled gauze and coban on BLE he said he will wait until Monday but then may decline getting them back on. Pt tolerated unna boot application well. documented in this encounter Plan of Treatment Upcoming Encounters Date Type Department Care Team (Late st Contact Info) Description 12/05/2023 5:20 PM EDT Anticoagulation Pharmacy Call Center [address] [place] [address] [facility] [address] [place] [address] 12/07/2023 9:40 AM EDT Nurse Only Ancillary, [place] [address] [address] Hoven, Nurse, RN [facility] [address] [address] 12/12/2023 Hospital Encounter OR [facility], OPERATING ROOM [facility], [facility] [address] [place] [address] Gurvinder Garcia MD [address] [place] [address] 01/18/2024 1:30 PM EDT Office Visit Radiation Oncology, [facility] [address] [place], [place] [phone] Eros Faust MD [address] [place] [address] [phone] 02/13/2024 9:20 AM EDT [facility] [address] [address] [place] [address] Jad Boone MD [address] [facility] [address] [place] [address] 06/06/2024 9:30 AM EDT Office Visit Cardiology, [place] [address] [place] [address] Yas Mckinnon CRNP [address] [facility] [place] [address] Scheduled Procedures Name Priority Associated Diagnoses Date/Ti me RECONSTRUCTION EXTERNAL DELMIS TORY CANAL DUE TO INJURY Squamous cell carcinoma of face SPLIT GRAFT TRUNK ARM LEG LE SS THAN 100SQ CM Squamous cell carcinoma of face TYMPANOPLASTY MASTOIDECTOMY WITHOUT OSSICULAR RECONSTRUCTION Squamous cell carcinoma of face Health Maintenance Due Date Last Done Comments [...] this encounter Medical Devices Implanted Type Area Math And Science Division Chair Device Identifier Shelf Expiration Date Model / Serial / Lot Connector Nerve 2mm 15mm - [id number] Implanted:Qty: 1 on 04/27/2023 by Dudley Hinojosa MD at OR [facility] Left: Face [employer] [id number] 12/24/2024 [id number] / / [id number] Alloderm 4x7 Thin 0.8-1.2 (28 Units) - [id number] - [id number] Implanted:Qty: 28 on 04/27/2023 by Dudley Hinojosa MD at OR [facility] Left: Face ABBVIE 12/18/2024 [id number] / [id number] / [id number] Sheeting Monisha 2x3in X.020in - [id number] Implanted:Qty: 1 on 04/27/2023 by Dudley Hinojosa MD at OR [facility] Left: Ear [employer] 09/25/2024 23-700-20 / / [id number] documented as of this encounter Advance Directives Documents on File Type Date Recorded Patient Solutions Consultant Expl anation POLST 04/26/2023 [place] [facility] FOR LIFE-SUSTAINING TREATMENT Latest Code [...] Communication Brody Varela Adult Child Power of Customer Support Manager Care Teams Second Crusher Relationship Specialty Start Date End Date Jad oBone MD [address] [facility] [address] [place] [address] PCP - General Family Medicine 09/20/23 documented as of this encounter
--- OUTSIDE RECORDS SUMMARY | 2024-04-25 23:57 | External Medical Summary | Summary of Care ---
Author Name Unknown Organization [facility] Address [address] [place] [address] Phone [phone] Care Team Providers Care Signal Tower Operator Name Role Phone Jad Boone MD Primary Care Provider Reason for Visit * Reason Comments Dosage Adjustment Via Phone (anticoag Cl inic) Encounter Details Date Type Department Care Team (Latest Contact Info) Description 11/21/2023 5:20 PM EDT Anticoagulation Pharmacy Call Center [address] [place] [address] [facility] [address] [place] [address] PAF (paroxysmal atrial fibrillation) ([facility])* Allergies Active Allergy Reactions Criticality Noted Date Comments Bee Venom Hives High 03/14/2017 documented as of this encounter (statuses as of 11/21/2023) Medications Medication Sig Dispensed Refills Start Date End Date Status Omeprazole 20 MG Oral Capsule Delayed Release (PriLOSEC) Take 1 Capsule by mouth in the morning. 90 Capsule 1 11/15/2022 Active Vitamin D3 1.25 MG (87760 UT) Oral Capsule Take 1 Capsule by mouth once a week. 12 Capsule 3 01/30/2023 Active Additional Information Patient taking differently:50,000 Units Oral QWEEK,Every Monday, Reported on 05/18/2023 Atorvastatin Calcium 20 MG Oral Tablet (Lipitor)Indicatio ns:Coronary artery disease involving augustine coronary artery of augustine heart without angina pectoris TAKE 1 TABLET, [...] as directed by [facility] 100 Tablet 1 10/04/2023 [...] as of this encounter (statuses as of 11/21/2023) Active Problems Problem Noted Date Diagnosed Date [...] fibrillation) 10/18/2018 Coronary artery disease invo lving augustine coronary artery without angina pectoris 01/07/2015 remote [...] as of this encounter (statuses as of 11/21/2023) Resolved Problems Problem Noted Date Diagnosed Date [...] as of this encounter (statuses as of 11/21/2023) Immunizations Name Administration Dates Next Due COVID-19 [...] as of this encounter Progress Notes * Gissell Munoz, cattle brander - 11/21/2023 12:32 PM EDT Contacts Type Contact Phone/Fax 11/21/2023 12:30 PM EDT Phone (Outgoing) Stephen Varela (Self) [phone] (M) Subjective Patient Findings Negatives: Signs/symptoms of [...] communicated as noted by Pharmacist: Yes ARMANDO ANAND 11/21/2023, 12:32 PM * Alyson Salinas RPh - 11/21/2023 11:56 AM EDT Images from the original note were not included. Expand All Collapse All Medication Therapy Disease Management - Anticoagulation Patient: Stephen Varela | : 1945 Subjective Call Contacts Half-Way/SNF Patient Anticoagulation Encounter Patient is a resident at: [facility] -- Fax sent to number listed above detailing plan of care below. Objective Current Warfarin Dose As of 11/21/2023 Warfarin maintenance plan: 5 mg (1 mg x 5) every Tue, Wed, Fri; 7.5 mg (1 mg x 7.5) all other days INR Result As of 11/21/2023 INR goal: 2.0-3.0 INR used for dosin.7 (11/21/2023) Assessment & Plan Warfarin Plan As of 11/21/2023 Full warfarin instructions: 11/20: 10 mg; Otherwise 5 mg every Tue, Wed, Fri; 7.5 mg all other days Next INR check: 12/05/2023 Repeat PT/INR in 2 week(s) Weekly dose: not changed Additional Dosing Information: Description 11/20/23 - call patient while at [facility] AND nigel Quiles pt started multivitamin around beginning of October Tech to contact patient with dose instructions as noted. Alyson Salinas RPh 11/21/2023, 11:56 AM documented in this encounter Plan of Treatment Upcoming Encounters Date Type Department Care Team (Late st Contact Info) Description 11/21/2023 2:00 PM EDT Nurse Only Ancillary, [place] [address] [address] [place] [address] [place], Nurse, RN [address] [place] [address] 01/18/2024 1:30 PM EDT Office Visit Radiation Oncology, [facility] [address] [place] [address] Eros Faust MD [address] [place], [place] [phone] 02/13/2024 9:20 AM EDT Office Visit Family Practice, [address] [place] [address] Jad Boone MD [address] [place] [address] 06/06/2024 9:30 AM EDT Office Visit Cardiology, [place] [address] [place] [address] Yas Mckinnon CRNP [address] [place] [address] Health Maintenance Due Date Last Done Comments [...] this encounter Medical Devices Implanted Type Area Loan Services Professional Device Identifier Shelf Expiration Date Model / Serial / Lot Connector Nerve 2mm 15mm - [id number] Implanted:Qty: 1 on 04/27/2023 by Dudley Hinojosa MD at OR [facility] Left: Face [employer] [id number] 12/24/2024 [id number] / / [id number] Alloderm 4x7 Thin 0.8-1.2 (28 Units) - [id number] - [id number] Implanted:Qty: 28 on 04/27/2023 by Dudley Hinojosa MD at OR [facility] Left: Face ABBVIE 12/18/2024 [id number] / [id number] / [id number] Sheeting Monisha 2x3in X.020in - [id number] Implanted:Qty: 1 on 04/27/2023 by Dudley Hinojosa MD at OR [facility] Left: Ear [employer] 09/25/2024 23-700-20 / / [id number] documented as of this encounter Visit Diagnoses Diagnosis PAF (paroxysmal atrial fibrillation) (HCC)- Primary Atrial fibrillation documented in this encounter Advance Directives Documents on File Type Date Recorded Patient Carbon Coater Machine Operator Expl anation POLST 04/26/2023 [place] OR DERS FOR LIFE-SUSTAINING TREATMENT Latest Code [...] Agent [facility] Communication [facility] Adult Child Power of Projector Operator Care Teams Signal Tower Operator Relationship Specialty Start Date End Date Jad Boone MD [address] [place] [address] [place] [address] PCP - General Family Medicine 09/20/23 documented as of this encounter
--- OUTSIDE RECORDS SUMMARY | 2024-04-25 23:57 | External Medical Summary | Summary of Care ---
Author Name Unknown Organization [facility] Address [address] [place] [address] Phone [phone] Care Team Providers Care Rn Mental Health Name Role Phone Jad Boone MD Primary Care Provider Reason for Referral * Evaluate & Treat - Unlimited Visits (Within 10 days (routine)) - Authorized Specialty Diagnoses / Procedures Referred By Maximino madrid Referred To Contact Podiatry Diagnoses PAD (peripheral artery disease) ([facility]) Jad Boone MD [address] [facility] [address] [place] [address] Referral ID Status Reason Start Date Expiration Date Visits Requested Visits Authorized [id number] Authorized Specialty Services Required 11/28/2023 999 999 Question Answer Referral Priority Within 10 days (routine) Where should this appointment be scheduled? [facility] Which condition are you referring this patient for? Routine Foot Care Medicare Patient? No Comments 1) Can Patient perform routine footcare without assistance? No. 2) Does patient have a chronic condition? Yes 3) Has patient been seen in the past 6 months? Yes[address] Dr[address] Jad Boone on 10/04/23. Reason for Visit * Reason Comments Status Check Pt has had his unna boots off x 1 week, returning for evaluation, per provider unna boots are not needed at this time. Encounter Details Date Type Department Care Team (Late st Contact Info) Description 11/28/2023 3:00 PM EDT Nurse Only Ancillary, [place] [address] [place] [address] [place], Nurse, RN [address] [place], [place] [phone] Status Check (Pt has had his unna boots of... Allergies Active Allergy Reactions Criticality Noted Date Comments Bee Venom Hives High 03/14/2017 documented as of this encounter (statuses as of 11/28/2023) Medications Medication Sig Dispensed Refills Start Date End Date Status Omeprazole 20 MG Oral Capsule Delayed Release (PriLOSEC) Take 1 Capsule by mouth in the morning. 90 Capsule 1 11/15/2022 Active Vitamin D3 1.25 MG (89217 UT) Oral Capsule Take 1 Capsule by mouth once a week. 12 Capsule 3 01/30/2023 Active Additional Information Patient taking differently:50,000 Units Oral QWEEK,Every Monday, Reported on 05/18/2023 Atorvastatin Calcium 20 MG Oral Tablet (Lipitor)Indicatio ns:Coronary artery disease involving [place] coronary artery of [place] heart without angina pectoris TAKE 1 TABLET, [...] all other days and as directed by [facility] Pharm[facility] 100 Tablet 1 10/04/2023 Active [...] as of this encounter (statuses as of 11/28/2023) Active Problems Problem Noted Date Diagnosed Date [...] fibrillation) 10/18/2018 Coronary artery disease invo lving [place] coronary artery without angina pectoris 01/07/2015 retirement current use of anticoagulant therapy 0 05/01/2014 Overview: ICD-10 update of inactive term Heart failure, systolic, due to CAD 08/28/2012 Overview: ECHO 2011 - Segmental wall abnormality, severe hypokinesis of anterior septum, anterior wall, apex, distal inferior septum, distal inferior wall, and distal posterior wall EF 33% Mass of left parotid gland documented as of this encounter (statuses as of 11/28/2023) Resolved Problems Problem Noted Date Diagnosed Date [...] as of this encounter (statuses as of 11/28/2023) Immunizations Name Administration Dates Next Due COVID-19 [...] PM EDT Anticoagulation Pharmacy Call Center [address] [place] [address] [facility] [address] [facility] [place] [address] 01/18/2024 1:30 PM EDT Office Visit Radiation Oncology, [facility] [address] [place] [address] Eros Faust MD [address] [place] [address] 02/13/2024 9:20 AM EDT Office Visit [place] [address] [address] [place] [address] Jad Boone MD [facility]2 [facility] [address] [place] [address] 06/06/2024 9:30 AM EDT Office Visit Cardiology, [place] [address] [facility] [place] [address] Yas Mckinnon CRNP [address] [place] [address] Scheduled Referrals Name Type Priority Associated Diagnoses Orde r Schedule PODIATRY REFERRAL OP Referral Within 10 days (routine) PAD (peripheral artery disease) (HCC) Ordered: 11/28/2023 Health Maintenance Due Date Last Done Comments [...] this encounter Medical Devices Implanted Type Area Store Team Leader Device Identifier Shelf Expiration Date Model / Serial / Lot Connector Nerve 2mm 15mm - [id number] Implanted:Qty: 1 on 04/27/2023 by Dudley Hinojosa MD at [facility] Left: Face [employer] [id number] 12/24/2024 [id number] / / [id number] Alloderm 4x7 Thin 0.8-1.2 (28 Units) - [id number] - [id number] Implanted:Qty: 28 on 04/27/2023 by Dudley Hinojosa MD [place] [facility] [place]: Face ABBVIE 12/18/2024 [id number] / [id number] / [id number] Sheeting Monisha 2x3in X.020in - [id number] Implanted:Qty: 1 on 04/27/2023 by Dudley Hinojosa MD [place] [facility] Left: Ear [employer] 09/25/2024 23-700-20 / / [id number] documented as of this encounter Visit Diagnoses Diagnosis PAD (peripheral artery disease) (HCC)- Primary Peripheral vascular disease, unspecified documented in this encounter Advance Directives Documents on File Type Date Recorded Patient Support Services Tech Expl anation POLST 04/26/2023 [place] OR DERS FOR LIFE-SUSTAINING TREATMENT Latest Code [...] File Name Relationship Healthcare Agent [facility] [place] [facility] Communication Brody Avery Adult Child Power of Relationship Counselor Care Teams Rn Mental Health Relationship Specialty Start Date End Date Jad Boone MD [address] [place] [address] [place] [address] PCP - General Family Medicine 09/20/23 documented as of this encounter
--- OUTSIDE RECORDS SUMMARY | 2024-04-25 23:57 | External Medical Summary | Summary of Care ---
Author Name Unknown Organization [facility] Address [address] [place] [address] Phone [phone] Care Team Providers Care Licsw Name Role Phone Jad Boone MD Primary Care Provider Reason for Visit * Reason Comments Dosage Adjustment Via Phone (anticoag Cl inic) Encounter Details Date Type Department Care Team (Latest Contact Info) Description 12/05/2023 5:20 PM EDT Anticoagulation Pharmacy Call Center [address] [place] [address] [facility] [address] [place] [address] PAF (paroxysmal atrial fibrillation) ([facility])* Allergies Active Allergy Reactions Criticality Noted Date Comments Bee Venom Hives High 03/14/2017 documented as of this encounter (statuses as of 12/05/2023) Medications Medication Sig Dispensed Refills Start Date End Date Status Omeprazole 20 MG Oral Capsule Delayed Release (PriLOSEC) Take 1 Capsule by mouth in the morning. 90 Capsule 1 11/15/2022 Active Vitamin D3 1.25 MG (41308 UT) Oral Capsule Take 1 Capsule by mouth once a week. 12 Capsule 3 01/30/2023 Active Additional Information Patient taking differently:50,000 Units Oral QWEEK,Every Monday, Reported on 05/18/2023 Atorvastatin Calcium 20 MG Oral Tablet (Lipitor)Indicatio ns:Coronary artery disease involving [place] coronary artery of [place] heart without angina pectoris TAKE 1 TABLET, [...] (Lasix)Indications :Chronic diastolic CHF (congestive heart failure) ([facility]) Take 2 Tablets by mouth in the morning. 180 Tablet 1 08/15/2023 Active Metoprolol Succinate ER 25 MG Oral Tablet Extended Release 24 Hour (Toprol XL)Indications:Chr onic diastolic CHF (congestive heart failure) ([facility]) Take 1 Tablet by mouth [...] Oral Tablet (Coumadin)Indicati ons:PAF (paroxysmal atrial fibrillation) ([facility]) Take 1 Tablet by mouth every evening. 2/8: 10 mg; Otherwise 5 mg every e, Wed, Mon; 7.5 mg all other days and as directed by [facility] 100 Tablet 1 10/04/2023 Active guaiFENesin [...] heart failure with preserved ejection fraction (HFpEF) ([facility]) Take 1 Tablet by mouth [...] fibrillation) 10/18/2018 Coronary artery disease invo lving shag[place] coronary artery without angina pectoris 01/07/2015 retirement [...] this encounter Progress Notes * Carla Heaton, [facility] - 12/05/2023 3:45 PM EDT Images from the original note were not included. Medication Therapy Disease Management - Anticoagulation Patient: Stephen Thomasn | : 1945 Detention/SNF Patient Anticoagulation Encounter Patient is a resident at: [facility] [place]- Fax sent to number listed above detailing plan of care below. Please notify clinic with any unusual brusing or bleeding, N/V/D, medication or diet changes or anymissed or extra doses of Coumadin. Subjective Contacts Type Contact Phone/Fax 12/05/2023 03:52 PM EDT Phone (Outgoing) Stephen Varela (Self) [phone] (M) Patient-Reported Symptoms: Patient Findings Positives: Upcoming invasive procedure (Surgery on Ear 12/11) Negatives: Signs/symptoms of thrombosis, Signs/symptoms of bleeding, Change in health, Change in alcohol use, Change in activity, Missed doses, Extra doses, Change in medications, Change in diet/appetite, Bruising Comments: Patient is anticoagulated for afib with [id number] = 4 (age, CHF, HTN). No apparent hx of stroke/TIA or DVT/PE. Lovenox bridge is not indicated at this time. Patient will be admitted post procedure- ACC will follow up to check for discharge. Objective Current Warfarin Dose As of 12/05/2023 Warfarin maintenance plan: 5 mg (1 mg x 5) every Mon,Mon; 7.5 mg (1 mg x 7.5) all other days INR Result As of 12/05/2023 INR goal: 2.0-3.0 INR used for dosin.7 (12/05/2023) Assessment & Plan Warfarin Plan As of 12/05/2023 Full warfarin instructions: 18: Hold; 12/07: Hold; 20: Hold; 12/09: Hold; 12/10: Hold; Otherwise 5mg every Fri; 7.5 mg all other days Next INR check: 12/26/2023 Repeat PT/INR TBD pending discharge Weekly dose: increased Additional Dosing Information: Description 12/12/23 - procedure 11/20/23 - call patient while at [facility] AND nigel Quiles pt started multivitamin around beginning of October Carla Heaton RPh Clinical Pharmacist 12/05/2023, 3:47 PM documented in this encounter Plan of Treatment Upcoming Encounters Date Type Department Care Team (Latest Contact Info) Description 12/07/2023 9:40 AM EDT Nurse Only Ancillary, [place] [address] [place] [address] [id number] [place], Nurse, RN [address] [place] [address] 12/12/2023 12:57 PM EDT Hospital Encounter [place] [facility] [facility] [facility] [address] [place] [phone] Gurvinder Garcia MD [address], [place] [phone] 12/12/2023 12:57 PM EDT - 12/12/2023 6:03 PM EDT Surgery [place] [facility] [place] [facility] [address] [place] [address] Gurvinder Garcia MD [address] [place] [address] RECONSTRUCTION EXTERNAL AUDITORY CANAL DUE TO INJURY 12/13/2023 6:45 AM EDT [facility] Call Center [address] [place] [address] [facility], [facility] [address] [place] [address] 01/18/2024 1:30 PM EDT Office Visit Radiation Oncology, [facility] [address] [place], [place] [phone] Eros Faust MD [address] [place] [address] [phone] 02/13/2024 9:20 AM EDT Office Visit Family Practice, [place] [address] [place] [address] Jad Boone MD [address] [place] [address] [address] [place] [address] 06/06/2024 9:30 AM EDT Office Visit Cardiology, [place] [address] [place] [address] Yas Mckinnon CRNP [address] [place] [address] Scheduled Procedures Name Priority Associated Diagnoses Date/Ti [...] this encounter Medical Devices Implanted Type Area Seasoner Hand Device Identifier Shelf Expiration Date Model / Serial / Lot Connector Nerve 2mm 15mm - [id number] Implanted:Qty: 1 on 04/27/2023 by Dudley Hinojosa [place] [facility]: Face [employer] [id number] 12/24/2024 [id number] / / [id number] Alloderm 4x7 Thin 0.8-1.2 (28 Units) - [id number] - [id number] Implanted:Qty: 28 on 04/27/2023 by Dudley Hinojosa [place] [facility]: Face ABBVIE 12/18/2024 [id number] / [id number] / [id number] Sheeting Monisha 2x3in X.020in - [id number] Implanted:Qty: 1 on 04/27/2023 by Dudley Hinojosa [place] [facility] [place]: Ear [employer] 09/25/2024 23-700-20 / / [id number] documented as of this encounter Visit Diagnoses Diagnosis PAF (paroxysmal atrial fibrillation) (HCC)- Primary Atrial fibrillation 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 documented in this encounter Advance Directives Documents on File Type Date Recorded Patient Flight Test Data Acquisition Technician Expl anation POLST 04/26/2023 [place] OR [facility]-SUSTAINING TREATMENT Latest Code Status [...] Agent [facility] Communication [facility] Adult Child Power of Truck Packer Care Teams Licsw Relationship Specialty Start Date End Date Jad Boone MD [address] [place] [address] [place] [address] PCP - General Family Medicine 09/20/23 documented as of this encounter
--- OUTSIDE RECORDS SUMMARY | 2024-04-25 23:57 | External Medical Summary | Summary of Care ---
Author Name Unknown Organization [facility] Address [address] [place] [address] Phone [phone] Care Team Providers Care Intake Clinician Name Role Phone Jad Boone MD Primary Care Provider Reason for Visit * Reason Onset Date Comments Protime Testing 11/20/2023 Encounter Details Date Type Department Care Team (Late st Contact Info) Description 11/20/2023 Telephone Pharmacy Call Center [address] [place] [address] [facility] [address] [place] [address] Protime Testing Allergies Active Allergy Reactions Criticality Noted Date Comments Bee Venom Hives High 03/14/2017 documented as of this encounter (statuses as of 11/20/2023) Medications Medication Sig Dispensed Refills Start Date End Date Status Omeprazole 20 MG Oral Capsule Delayed Release (PriLOSEC) Take 1 Capsule by mouth in the morning. 90 Capsule 1 11/15/2022 Active Vitamin D3 1.25 MG (81346 UT) Oral Capsule Take 1 Capsule by [...] Oral Tablet (Coumadin)Indicati ons:PAF (paroxysmal atrial fibrillation) ([facility]) Take 1 Tablet by mouth every evening. 09/28: 10 mg; Otherwise 5 mg every Mon, Wed, Mon; 7.5 mg all other days and as directed by [facility] Pharm[facility] 100 Tablet 1 10/04/2023 [...] heart failure with preserved ejection fraction (HFpEF) ([facility]) Take 1 Tablet by mouth in the morning. 90 Tablet 3 11/10/2023 Active documented as of this encounter (statuses as of 11/20/2023) Active Problems Problem Noted Date Diagnosed Date [...] nome coronary artery without angina pectoris 01/07/2015 care [...] as of this encounter (statuses as of 11/20/2023) Resolved Problems Problem Noted Date Diagnosed Date [...] as of this encounter (statuses as of 11/20/2023) Immunizations Name Administration Dates Next Due COVID-19 [...] encounter Miscellaneous Notes * Telephone Encounter - Gretel Frazier, [facility] - 11/20/2023 2:51 PM EDT Spoke with patient - advised order was sent to [place] to have INR drawn tomorrow as it was missed today. ACC to follow-up tomorrow. Pt requesting INR to be called in to himself as well as faxed to facility. Previously noted in Anticoag episode; also made note in ACC tracker. Thanks, Gretel Frazier PharmD Clinical Pharmacist [facility] (Former[facility]) [phone] 11/20/2023 2:53 PM * Telephone Encounter - Cori Moya PHARM Tech - 11/20/2023 11:23 AM EDT Caller's name: Stephen Preferred call back number(OFFICE NUMBER FOR ): [phone] Reason for call: PT/INR Pt stating no one stopped by this morning to take his blood. Pt is concerned he was missed. Pt wants someone to call the lab and see if they can stop by tomorrow, if they cannot come back today. Pls let pt know what he should expect. Cori Moya Tractor Operator Helper [facility] ([facility] (Former[facility] Tele[facility]) 11/20/2023, 11:24 AM documented in this encounter Plan of Treatment Upcoming Encounters Date Type Department Care Team (Latest Contact Info) Description 11/20/2023 5:20 PM EDT Anticoagulation Pharmacy Call Center [address] [place] [address] [facility], [facility] [address] [place] [address] PAF (paroxysmal atrial fibrillation) (HCC)* 11/21/2023 8:15 AM EDT Hospital En[address], [address] [address] 11/21/2023 10:45 AM EDT Appointment Cardiac Studies, [facility] [address] [facility] [address] 11/21/2023 2:00 PM EDT Nurse Only Ancillary, Kb [facility] [address] [place] [address] Kb, Nurse, RN [address] [place] [address] 01/18/2024 1:30 PM EDT Office Visit Radiation Oncology, [facility] [address] [place] [address] Eros Faust MD [address] [place] [address] 02/13/2024 9:20 AM EDT Office Visit Family Practice, [place] [address] [place] [address] Jda Boone MD [address] [facility] [address] [place] [address] 06/06/2024 9:30 AM EDT Office Visit Cardiology, [place] [address] [place] [address] Yas Mckinnon CRNP [address] [place] [address] Health Maintenance Due Date Last Done Comments Albumin/Creatinine Ratio 1963 Hepatitis C Screening 1963 Zoster Vaccines (2 of 3) 06/26/2014 05/01/2014 *SPIROMETRY ONCE FOR ASTHMA-ADULT 07/14/2022 COVID-19 Vaccine (2022- season) 2023 06/01/2023, 06/09/2022, 12/31/2021, Additional history exists *NEPHROLOGY REFERRAL DUE TO RESISTANT HTN 09/25/2023 Depression Screening 09/18/2024 09/18/2023 GFR 11/16/2024 11/17/2023, 1211/2022, 07/17/2023, Additional history exists DTaP,Tdap,and Td Vaccines [...] this encounter Medical Devices Implanted Type Area Roller Staker Device Identifier Shelf Expiration Date Model / Serial / Lot Connector Nerve 2mm 15mm - [id number] Implanted:Qty: 1 on 04/27/2023 by Dudley Hinojosa MD at OR [facility] Left: Face [employer] [id number] 12/24/2024 [id number] / / [id number] Alloderm 4x7 Thin 0.8-1.2 (28 Units) - [id number] - [id number] Implanted:Qty: 28 on 04/27/2023 by Dudley Hinojosa MD at OR [facility] Left: Face ABBVIE 12/18/2024 [id number] / [id number] / [id number] Sheeting Monisha 2x3in X.020in - [id number] Implanted:Qty: 1 on 04/27/2023 by Dudley Hinojosa MD at OR [facility] Left: Ear [employer] 09/25/2024 23-700-20 / / [id number] documented as of this encounter Visit Diagnoses Diagnosis PAF (paroxysmal atrial fibrillation) (HCC)- Primary Atrial fibrillation PAF (paroxysmal atrial fibrillation) (HCC)- Primary Atrial fibrillation documented in this encounter Advance Directives Documents on File Type Date Recorded Patient Director Of Outside Sales Expl anation POLST 04/26/2023 [place] OR [facility] FOR [facility]-SUSTAINING TREATMENT [...] Communication Brody Varela Adult Child Power of Aircraft Armament Mechanic Care Teams Intake Clinician Relationship Specialty Start Date End Date Jad Boone MD [address] [facility] [address] [place] [address] PCP - General Family Medicine 09/20/23 documented as of this encounter
--- OUTSIDE RECORDS SUMMARY | 2024-04-25 23:57 | External Medical Summary | Summary of Care ---
Author Name Unknown Organization [facility] Address [address] [facility] [place] [address] Phone [phone] Care Team Providers Care Industrial Energy Engineer Name Role Phone Jad Boone MD Primary Care Provider Reason for Visit * Reason Comments Dosage Adjustment Via Phone (anticoag Cl inic) Procedure Encounter Details Date Type Department Care Team (Latest Contact Info) Description 12/04/2023 6:45 AM EDT Anticoagulation Pharmacy Call Center [address] [place] [address] [facility] [address] [place] [address] PAF (paroxysmal atrial fibrillation) ([facility])* Allergies Active Allergy Reactions Criticality Noted Date Comments Bee Venom Hives High 03/14/2017 documented as of this encounter (statuses as of 12/04/2023) Medications Medication Sig Dispensed Refills Start Date End Date Status Omeprazole 20 MG Oral Capsule Delayed Release (PriLOSEC) Take 1 Capsule by mouth in the morning. 90 Capsule 1 11/15/2022 Active Vitamin D3 1.25 MG (23457 UT) Oral Capsule Take 1 Capsule by mouth once a week. 12 Capsule 3 01/30/2023 Active Additional Information Patient taking differently:50,000 Units Oral QWEEK,Every Monday, Reported on 05/18/2023 Atorvastatin Calcium 20 MG Oral Tablet (Lipitor)Indicatio ns:Coronary artery disease involving tan[place] coronary artery of tanana heart without angina pectoris TAKE 1 TABLET, [...] diastolic CHF (congestive heart failure) ([facility]) Take 2 Tablets by mouth in [...] (Coumadin)Indicati ons:PAF (paroxysmal atrial fibrillation) ([facility]) Take 1 Tablet by mouth every evening. 2/8: 10 mg; Otherwise 5 mg every e, Wed, Mon; 7.5 mg all other days and as directed by [facility] Pharm[facility] 100 Tablet 1 10/04/2023 Active [...] with preserved ejection fraction (HFpEF) ([facility]) Take 1 Tablet by mouth in [...] fibrillation) 10/18/2018 Coronary artery disease invo lving tanana coronary artery without angina pectoris 01/07/2015 [facility] current use of anticoagulant therapy 0 05/01/2014 [...] as of this encounter Progress Notes * Gretel Frazier, [facility] - 12/04/2023 3:02 PM EDT Medication Therapy Disease Management - Anticoagulation Patient: Stephen Varela | : 1945 Fdc/SNF Patient Anticoagulation Encounter Patient is a resident at: [facility] [place] -- Subjective Patient-Reported Symptoms: Patient Findings Positives: Upcoming invasive procedure (Reconstruction of external auditory canal procedure 12/12/23) Comments: Pt has upcoming procedure 12/12/23 and surgical team requested ACC assistance with coumadin pre- and post-op instructions. Patient is anticoagulated for afib with [id number] = 4 (age, CHF,HTN). No apparent hx of stroke/TIA or DVT/PE. Lovenox bridge is not indicated at this time. Pt is due for INR check tomorrow 12/05/23. With the results from this, procedure instructions can be provided to patient & [place] team. Objective Current Warfarin Dose As of 12/04/2023 Warfarin maintenance plan: 5 mg (1 mg x 5) every Tue, Wed, Fri; 7.5 mg (1 mg x 7.5) all other days INR Result As of 12/04/2023 INR goal: 2.0-3.0 INR used for dosing: No new INR was available at the time of this encounter. Assessment & Plan Warfarin Plan As of 12/04/2023 Full warfarin instructions: 5 mg every Tue, Wed, Fri; 7.5 mg all other days Next INR check: 12/05/2023 Repeat PT/INR in 1 day(s) - as previously scheduled Weekly dose: not changed Additional Dosing Information: Description 11/20/23 - call patient while at [facility] [place] AND favianney HeathAlsey pt started multivitamin around beginning of October Gretel Frazier RP Clinical Pharmacist 12/04/2023, 3:02 PM documented in this encounter Plan of Treatment Upcoming Encounters Date Type Department Care Team (Latest Contact Info) Description 12/05/2023 5:20 PM EDT Anticoagulation Pharmacy Call Center [place] [address] [place] [address] [facility] [address] [place] [address] 12/07/2023 9:40 AM EDT Nurse Only Ancillary, [place] [facility] [address] [place] [address] [place], Nurse, RN [address] [place] [address] 12/12/2023 12:57 PM EDT Hospital Encounter [place] [facility] [place] [facility] [address] [place] [phone] Gurvinder Garcia MD [address] [place] [address] 12/12/2023 12:57 PM EDT - 12/12/2023 6:03 PM EDT Surgery OR [facility] [address] [place] [address] Gurvinder Garcia MD [address] [place] [address] RECONSTRUCTION EXTERNAL AUDITORY CANAL DUE TO INJURY 01/18/2024 1:30 PM EDT Office Visit Radiation Oncology, [facility] [address] [place] [address] Eros Faust MD [address] [place] [address] 02/13/2024 9:20 AM EDT Office Visit Family [place] [address] [place] [address] Jad Boone MD [facility] [address] [place] [address] 06/06/2024 9:30 AM EDT Office Visit Cardiology, [place] [address] [place] [address] Yas Mckinnon CRNP [address] [place] [address] Scheduled Procedures Name Priority Associated Diagnoses Date/Ti [...] this encounter Medical Devices Implanted Type Area Spray Machine Operator Device Identifier Shelf Expiration Date Model / Serial / Lot Connector Nerve 2mm 15mm - [id number] Implanted:Qty: 1 on 04/27/2023 by Dudley Hinojosa MD at [facility] Left: Face [employer] [id number] 12/24/2024 [id number] / / [id number] Alloderm 4x7 Thin 0.8-1.2 (28 Units) - [id number] - [id number] Implanted:Qty: 28 on 04/27/2023 by Dudley Hinojosa MD at [place] [facility] Left: Face ABBVIE 12/18/2024 [id number] / [id number] / [id number] Sheeting Monisha 2x3in X.020in - [id number] Implanted:Qty: 1 on 04/27/2023 by Dudley Hinojosa MD at [place] [facility] Left: Ear [employer] 09/25/2024 23-700-20 / / [id number] documented as of this encounter Visit Diagnoses Diagnosis PAF (paroxysmal atrial fibrillation) (HCC)- Primary Atrial fibrillation 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 documented in this encounter Advance Directives Documents on File Type Date Recorded 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
--- OUTSIDE RECORDS SUMMARY | 2024-04-25 23:57 | External Medical Summary | Summary of Care ---
Author Name Unknown Organization [facility] Address [address] [place] [address] Phone [phone] Care Team Providers Care Clinical Resource Coordinator Name Role Phone Jad Boone MD Primary Care Provider Encounter Details Date Type Department Care Team (Late st Contact Info) Description 11/21/2023 2:00 PM EDT Nurse Only Ancillary, [facility] [place] [address] [phone] Kb, Nurse, RN [address] [place] [address] Arrived Allergies Active Allergy Reactions Criticality Noted Date Comments Bee Venom Hives High 03/14/2017 documented as of this encounter (statuses as of 11/21/2023) Medications Medication Sig Dispensed Refills Start Date End Date Status Omeprazole 20 MG Oral Capsule Delayed Release (PriLOSEC) Take 1 Capsule by mouth in the morning. 90 Capsule 1 11/15/2022 Active Vitamin D3 1.25 MG (55709 UT) Oral Capsule Take 1 Capsule by mouth once a week. 12 Capsule 3 01/30/2023 Active Additional Information Patient taking differently:50,000 Units Oral QWEEK,Every Monday, Reported on 05/18/2023 Atorvastatin Calcium 20 MG Oral Tablet (Lipitor)Indicatio ns:Coronary artery disease involving [place] coronary artery of [place] heart without angina pectoris TAKE 1 TABLET, [...] (Lasix)Indications :Chronic diastolic CHF (congestive heart failure) ([facility]) Take 2 Tablets by mouth in the morning. 180 Tablet 1 08/15/2023 Active Metoprolol Succinate ER 25 MG Oral Tablet Extended Release 24 Hour (Toprol XL)Indications:Chr onic diastolic CHF (congestive heart failure) ([facility]) Take 1 Tablet by mouth [...] Oral Tablet (Coumadin)Indicati ons:PAF (paroxysmal atrial fibrillation) ([facility]) Take 1 Tablet by mouth every evening. 28: 10 mg; Otherwise 5 mg every e, Wed, Mon; 7.5 mg all other days and as directed by [facility] Pharmacy 100 Tablet 1 [...] heart failure with preserved ejection fraction (HFpEF) ([facility]) Take 1 Tablet by mouth [...] fibrillation) 10/18/2018 Coronary artery disease invo lving [place] coronary artery without angina pectoris 01/07/2015 [facility] [...] mRNA, LNP-s, No Pre serve, 2-Dose Series (MomentCam) 11/26/2020,11/05/2020 Pneumococcal Conjugate Vacc, 13 Valent (Prevnar) [...] of this encounter Nursing Notes * Tere aCmpa CMA - 11/21/2023 2:36 PM EDT Patient came in for unna boot removal. Patient had them on since 11/15. I removed coban, rolled gauze and unna boot. Pt stated not to clean them he was going home and showering. came in and assessed patients legs. Stated we will keep them off for a week and re-evaluate. documented in this encounter Plan of Treatment Upcoming Encounters Date Type Department Care Team (Late st Contact Info) Description 11/21/2023 5:20 PM EDT Anticoagulation Pharmacy Call Center [address] [place] [address] C[address], [facility] [address] [place] [address] PAF (paroxysmal atrial fibrillation) (HCC)* 11/28/2023 3:00 PM EDT Nurse Only Ancillary, [address] [place] [address] [place], Nurse, RN [facility] [address] [place] [address] 01/18/2024 1:30 PM EDT Office Visit Radiation Oncology, [facility] [address] [place], [place] [phone] Eros Faust MD [address] [place], [place] [phone] 02/13/2024 9:20 AM EDT Office Visit [facility], [address] [place] [address] Jad Boone MD [facility] [address] [place] [address] 06/06/2024 9:30 AM EDT Office Visit Cardiology, [place] [address] [place], [place] [phone] Yas Mckinnon CRNP [address] [place], [place] [phone] Health Maintenance Due Date Last Done Comments [...] this encounter Medical Devices Implanted Type Area Map Editor Device Identifier Shelf Expiration Date Model / Serial / Lot Connector Nerve 2mm 15mm - [id number] Implanted:Qty: 1 on 04/27/2023 by Dudley Hinojosa MD at [place] [facility] [place] Left: Face [employer] [id number] 12/24/2024 [id number] / / [id number] Alloderm 4x7 Thin 0.8-1.2 (28 Units) - [id number] - [id number] Implanted:Qty: 28 on 04/27/2023 by Dudley Hinojosa MD at OR [facility] [place] Left: Face ABBVIE 12/18/2024 [id number] / [id number] / [id number] Sheeting Monisha 2x3in X.020in - [id number] Implanted:Qty: 1 on 04/27/2023 by Dudley Hinojosa MD at OR [facility] [place] Left: Ear [employer] 09/25/2024 23-700-20 / / [id number] documented as of this encounter Advance Directives Documents on File Type Date Recorded Patient Monitoring Tech Expl sharmila POLST 04/26/2023 [place] OR DERS FOR LIFE-SUSTAINING TREATMENT Latest Code [...] Agent [facility] p Communication Brody Avery Adult Child Power of Construction Services Technician Care Teams Clinical Resource Coordinator Relationship Specialty Start Date End Date Jad Boone MD [address] [address] [place] [address] PCP - General Family Medicine 09/20/23 documented as of this encounter
--- OUTSIDE RECORDS SUMMARY | 2024-04-25 23:58 | External Medical Summary | Summary of Care ---
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 ising Reason for Referral Head/Neck/Cancer Conditions Specific Condition: Head/Neck Comments Follow up parotic cancer Encounter Details Date Type Department Care Team (Late st Contact Info) Description 11/08/[address] [place] [address] [phone] Jad Boone MD [address] [facility] [address] [place] [address] [phone] Allergies Active Allergy Reactions Criticality Noted Date Comments Bee Venom Hives High 03/14/2017 documented as of this encounter (statuses as of 11/09/2023) Medications Medication Sig Dispensed Refills Start Date End Date Status Omeprazole 20 MG Oral Capsule Delayed Release (PriLOSEC) Take 1 Capsule by mouth in the morning. 90 Capsule 1 11/15/2022 Active Vitamin D3 1.25 MG (26207 UT) Oral Capsule Take 1 Capsule by mouth once a week. 12 Capsule 3 01/30/2023 Active Additional Information Patient taking differently:50,000 Units Oral QWEEK,Every Monday, Reported on 05/18/2023 Atorvastatin Calcium 20 MG Oral Tablet (Lipitor)Indication s:Coronary artery disease involving [place] coronary artery of [place] heart without angina pectoris TAKE 1 TABLET, BY MOUTH, IN THE MORNING. 90 Tablet 1 03/04/2023 Active Acetaminophen 325 MG Oral Tablet (Tylenol) Take 2 Tablets by mouth every 6 hours as needed for Pain, Mild. 30 Tablet 0 04/03/2023 Active Antifungal Clotrimazole 1 % External Cream 0 05/01/2023 Active Multivitamin Adult Oral Tablet Take by mouth every evening. 0 Active Therems-M Oral Tablet 0 07/31/2023 Active Furosemide 20 MG Oral Tablet (Lasix)Indications: Chronic diastolic CHF (congestive heart failure) (HCC) Take 2 Tablets by mouth in the morning. 180 Tablet 1 08/15/2023 Active Lisinopril 5 MG Oral Tablet (Prinivil)Indicatio ns:Chronic diastolic CHF (congestive heart failure) (HCC) Take 1 Tablet by mouth in the morning. 90 Tablet 1 08/15/2023 Active Metoprolol Succinate ER 25 MG Oral Tablet Extended Release 24 Hour (Toprol XL)Indications:Coding Team Lead ino diastolic CHF (congestive heart failure) (HCC) Take 1 Tablet by mouth in the morning. 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 10 Capsule 0 10/04/2023 Active Warfarin Sodium 5 MG Oral Tablet (Coumadin)Indicatio ns:PAF (paroxysmal atrial fibrillation) (HCC) Take 1 Tablet by mouth every evening. 2/8: 10 mg; Otherwise 5 mg every Tue, Wed, Fri; 7.5 mg all other days and as directed by [facility] Pharmacy 100 Tablet 1 10/04/2023 Active guaiFENesin 400 MG Oral TabletIndications:S inus congestion Take 1 Tablet by mouth every 4 hours as needed (cough or sinus drainage). 100 Tablet 0 10/04/2023 Active documented as of this encounter (statuses as of 11/09/2023) Active Problems Problem Noted Date Diagnosed Date [...] fibrillation) 10/18/2018 Coronary artery disease invo lving [place] coronary artery without angina pectoris 01/07/2015 regional [...] as of this encounter (statuses as of 11/09/2023) Resolved Problems Problem Noted Date Diagnosed Date [...] as of this encounter (statuses as of 11/09/2023) Immunizations Name Administration Dates Next Due COVID-19 [...] Telephone Encounter - Ashlee Leslie OSA - 11/09/2023 4:23 PM EDT Pt is having no pain currently When touching ear- light touch, and he is in pain. Sad when wind blows against it it hurts. Patient expressed that he doesn't want to drive to [place] as it cost him A LOT of money for transportation, he is open to a video visit if able. Reviewed with Dr. Garcia he does not want patient traveling the distance and will review via telephonic on 11/13/23. Will notify patient with update * Telephone Encounter - Madison Flood OSA - 11/09/2023 10:10 AM EDT expanded duty dental assistant at Nursing reports more swelling and ear flapping over. Contacted ENT in the area and was told to follow up with surgeon. PCP placed STAT ENT referral. Patient is agreeable to video visit. * Telephone Encounter - Jad Boone MD - 11/08/2023 1:31 PM EDT Heavy Equipment Plumbing Supervisor reports worsening ear symptoms. Will request ENT review again. Jad Boone MD 11/08/2023 documented in this encounter Plan of Treatment Upcoming Encounters Date Type Department Care Team (Late st Contact Info) Description 11/10/2023 1:30 PM EDT Office Visit [facility] [address] [place] [address] Liss Herrera PA-C [address] [place] [address] 11/20/2023 5:20 PM EDT Anticoagulation Pharmacy Call Center [address] [facility] [place] [address] [address], [facility] [address] 60 [facility] [place] [address] 01/18/2024 1:30 PM EDT Office Visit Radiation Oncology, [facility] [address] [facility] [place] [address] Eros Faust MD [address] [place] [address] 02/13/2024 9:20 AM EDT Office Visit [place] [address] [address] [place] [address] Jad Boone MD [facility] [address] [place] [address] 06/06/2024 9:30 AM EDT Office Visit Luis Castillo [address] [place] [address] Yas Mckinnon CRNP [address] [place] [address] Scheduled Referrals Name Type Priority Associated Diagnoses Order Schedule ADULT/PEDS OTOLARYNGOLOGY REFERRAL OP Referral Within 3 days (urgent) 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) Ordered: 11/08/2023 Health Maintenance Due Date Last Done Comments Albumin/Creatinine Ratio 1963 Hepatitis C Screening 1963 Zoster Vaccines (2 of 3) 06/26/2014 05/01/2014 *SPIROMETRY ONCE FOR ASTHMA-ADULT 07/14/2022 COVID-19 Vaccine (2022- season) 2023 06/01/2023, 06/09/2022, 12/31/2021, Additional history exists *NEPHROLOGY REFERRAL DUE TO RESISTANT HTN 09/25/2023 GFR 07/24/2024 07/24/2023, 06/22, 07/10/2023, Additional history exists Depression Screening 09/18/2024 09/18/2023 DTaP,Tdap,and Td Vaccines (2 - Td or [...] this encounter Medical Devices Implanted Type Area Launch Commander [employer] Device Identifier Shelf Expiration Date Model / Serial / Lot Connector Nerve 2mm 15mm - [id number] Implanted:Qty: 1 on 04/27/2023 by Dudley Hinojosa MD at [place] [facility] [place] Left: Face [employer] [id number] 12/24/2024 [id number] / / [id number] Alloderm 4x7 Thin 0.8-1.2 (28 Units) - [id number] - [id number] Implanted:Qty: 28 on 04/27/2023 by Dudley Hinojosa MD at [place] [facility] [place] Left: Face ABBVIE 12/18/2024 [id number] / [id number] / [id number] Sheeting Monisha 2x3in X.020in - [id number] Implanted:Qty: 1 on 04/27/2023 by Dudley Hinojosa MD at [place] [facility] [place] Left: Ear [employer] 09/25/2024 23-700-20 / / [id number] documented as of this encounter Visit Diagnoses Diagnosis 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 Malignant neoplasm of parotid gland documented in this encounter Advance Directives Documents on File Type Date Recorded 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
--- OUTSIDE RECORDS SUMMARY | 2024-04-25 23:58 | External Medical Summary | Summary of Care ---
Author Name Unknown Organization [facility] Address [address] [place] [address] Phone [phone] Care Team Providers Care Billboard Erector Name Role Phone Jad Boone MD Primary Care Provider Encounter Details Date Type Department Care Team (Late st Contact Info) Description 09/29/2023 11:00 AM EST Office Visit Audiology, [place] [address] [place], [place] [phone] Regine Chan Au.D. [address] [place] [address] No-show for appointment* Allergies Active Allergy Reactions Criticality Noted Date Comments Bee Venom Hives High 03/14/2017 documented as of this encounter (statuses as of 11/10/2023) Medications Medication Sig Dispensed Refills Start Date End Date Status Omeprazole 20 MG Oral Capsule Delayed Release (PriLOSEC) Take 1 Capsule by mouth in the morning. 90 Capsule 1 11/15/2022 Active Vitamin D3 1.25 MG (98106 UT) Oral Capsule Take 1 Capsule by mouth once a week. 12 Capsule 3 01/30/2023 Active Additional Information Patient taking differently:50,000 Units Oral QWEEK,Every Monday, Reported on 05/18/2023 Atorvastatin Calcium 20 MG Oral Tablet (Lipitor)Indication s:Coronary artery disease involving [place] coronary artery of [place] heart without angina pectoris TAKE 1 TABLET, [...] Oral Tablet Extended Release 24 Hour (Toprol XL)Indications:Automobile Club Information Clerk ino diastolic CHF (congestive heart failure) (HCC) Take 1 Tablet by mouth in the morning. 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,Lesion of lower extremity Apply to both lower extremities once a day 56 g 2 09/29/2023 Active documented as of this encounter (statuses as of 11/10/2023) Active Problems Problem Noted Date Diagnosed Date [...] fibrillation) 10/18/2018 Coronary artery disease invo lving [place] coronary artery without angina pectoris 01/07/2015 skilled [...] as of this encounter (statuses as of 11/10/2023) Resolved Problems Problem Noted Date Diagnosed Date [...] as of this encounter (statuses as of 11/10/2023) Immunizations Name Administration Dates Next Due COVID-19 [...] as of this encounter Progress Notes * Regine Chan Au.D. - 11/10/2023 8:09 AM EDT Encounter created in error documented in this encounter Plan of Treatment Upcoming Encounters Date Type Department Care Team (Late st Contact Info) Description 11/10/2023 1:30 PM EDT Office Visit CardiologyLuis [address] [place] [address] Liss Herrera PA-C [address] [place] [address] 11/20/2023 5:20 PM EDT Anticoagulation Pharmacy Call Center [address] [place] [address] [facility] 58 60 [facility] [place] [address] 01/18/2024 1:30 PM EDT Office Visit Radiation Oncology, [facility] [address] [place] [address] Eros Faust MD [address] [place] [address] 02/13/2024 9:20 AM EDT Office Visit Family [facility] [place] [address] [place] [address] Jad Boone MD [address] [place] [address] 06/06/2024 9:30 AM EDT Office Visit Cardiology, [place] [address] [place] [address] Yas Mckinnon CRNP [address] [place] [address] Health Maintenance Due Date Last Done Comments [...] this encounter Medical Devices Implanted Type Area Tip Length Checker Device Identifier Shelf Expiration Date Model / Serial / Lot Connector Nerve 2mm 15mm - [id number] Implanted:Qty: 1 on 04/27/2023 by Dudley Hinojosa MD at OR [facility] [place] Left: Face [employer] [id number] 12/24/2024 [id number] / / [id number] Alloderm 4x7 Thin 0.8-1.2 (28 Units) - [id number] - [id number] Implanted:Qty: 28 on 04/27/2023 by Dudley Hinojosa MD at OR [facility] Left: Face ABBVIE 12/18/2024 [id number] / [id number] / [id number] Sheeting Monisha 2x3in X.020in - [id number] Implanted:Qty: 1 on 04/27/2023 by Dudley Hinojosa MD at OR [facility] Left: Ear [employer] 09/25/2024 23-700-20 / / [id number] documented as of this encounter Procedures Procedure Name Priority Date/Time Associated Diagnosis Comments AUDIOMETRIC RESULT 09/29/2023 documented in this encounter Results * AUDIOMETRIC RESULT (09/29/2023) 09/29/2023 Regine Gary HEARING SERVICES documented in this encounter Visit Diagnoses Diagnosis No-show for appointment- Primary documented in this encounter Advance Directives Documents on File Type Date Recorded 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
--- OUTSIDE RECORDS SUMMARY | 2024-04-25 23:58 | External Medical Summary | Summary of Care ---
Author Name Unknown Organization [facility] Address [address] [place] [address] Phone [phone] Care Team Providers Care Web Art Director Name Role Phone Jad Boone MD Primary Care Provider Reason for Visit * Reason Onset Date Comments Follow Up 11/16/2023 Encounter Details Date Type Department Care Team (Late st Contact Info) Description 11/16/2023 Telephone Otolaryngology/Head & Neck/Facial Plastic Surgery [address] [place] [address] Gurvinder Garcia MD [address] [place] [address] Follow Up Allergies Active Allergy Reactions Criticality Noted Date Comments Bee Venom Hives High 03/14/2017 documented as of this encounter (statuses as of 11/16/2023) Medications Medication Sig Dispensed Refills Start Date End Date Status Omeprazole 20 MG Oral Capsule Delayed Release (PriLOSEC) Take 1 Capsule by mouth in the morning. 90 Capsule 1 11/15/2022 Active Vitamin D3 1.25 MG (56859 UT) Oral Capsule Take 1 Capsule by mouth once a week. 12 Capsule 3 01/30/2023 Active Additional Information Patient taking differently:50,000 Units Oral QWEEK,Every Monday, Reported on 05/18/2023 Atorvastatin Calcium 20 MG Oral Tablet (Lipitor)Indicatio ns:Coronary artery disease involving [place] coronary artery of [place] heart without angina pectoris TAKE 1 TABLET, [...] all other days and as directed by [facility] Pharm[facility] 100 Tablet 1 10/04/2023 Active [...] as of this encounter (statuses as of 11/16/2023) Active Problems Problem Noted Date Diagnosed Date [...] 10/18/2018 Coronary artery disease invo lving [place] coronary artery without angina pectoris 01/07/2015 [facility] [...] as of this encounter (statuses as of 11/16/2023) Resolved Problems Problem Noted Date Diagnosed Date [...] as of this encounter (statuses as of 11/16/2023) Immunizations Name Administration Dates Next Due COVID-19 [...] encounter Miscellaneous Notes * Telephone Encounter - Gurvinder Garcia MD - 11/16/2023 4:58 PM EDT I have called and left a message for the patient that the purpose of a stress test is to make sure that surgery safe for him. I would certainly recommend that he have this done. Gurvinder Garcia MD 11/16/2023 5:00 PM documented in this encounter Plan of Treatment Upcoming Encounters Date Type Department Care Team (Late st Contact Info) Description 11/20/2023 5:20 PM EDT Anticoagulation Pharmacy Call Center [address] [facility] [place] [address] [facility], [facility] 58 60 [facility] [place] [address] 11/21/2023 8:15 AM EDT Appointment Radiology, [address] [address] 11/21/2023 10:45 AM EDT Appointment Cardiac Studies, [address] [address] 11/21/2023 2:00 PM EDT Nurse Only Ancillary, [place] [address] [address] [place] [address] [place], Nurse, RN [address] [place] [address] 01/18/2024 1:30 PM EDT Office Visit Radiation Oncology, [facility] [address] [place] [address] Eros Faust MD [address] [place] [address] 02/13/2024 9:20 AM EDT Office Visit Family Practice, [place] [address] [address] [place] [address] Jad Boone MD [address] [facility] [address] [place] [address] 06/06/2024 9:30 AM EDT Office Visit Cardiology, [address] [address] Yas Mckinnon CRNP [address] [place] [address] Health Maintenance Due Date Last Done Comments [...] this encounter Medical Devices Implanted Type Area Women'S Health Care Nurse Practitioner Device Identifier Shelf Expiration Date Model / Serial / Lot Connector Nerve 2mm 15mm - [id number] Implanted:Qty: 1 on 04/27/2023 by Dudley Hinojosa MD at [facility] Left: Face [employer] [id number] 12/24/2024 [id number] / / [id number] Alloderm 4x7 Thin 0.8-1.2 (28 Units) - [id number] - [id number] Implanted:Qty: 28 on 04/27/2023 by Dudley Hinojosa MD at OR [facility] [place] Left: Face ABBVIE 12/18/2024 [id number] / [id number] / [id number] Sheeting Monisha 2x3in X.020in - [id number] Implanted:Qty: 1 on 04/27/2023 by Dudley Hinojosa MD at OR [facility] [place] Left: Ear [employer] 09/25/2024 23-700-20 / / [id number] documented as of this encounter Advance Directives Documents on File Type Date Recorded 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
--- OUTSIDE RECORDS SUMMARY | 2024-04-25 23:58 | External Medical Summary | Summary of Care ---
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 ising Reason for Referral Head/Neck/Cancer Conditions Specific Condition: Head/Neck Comments Follow up parotic cancer Encounter Details Date Type Department Care Team (Late st Contact Info) Description 11/08/[address] [place] [address] [id number] Jad Boone MD [address] [facility] [address] [place] [address] [phone] Allergies Active Allergy Reactions Criticality Noted Date Comments Bee Venom Hives High 03/14/2017 documented as of this encounter (statuses as of 11/09/2023) Medications Medication Sig Dispensed Refills Start Date End Date Status Omeprazole 20 MG Oral Capsule Delayed Release (PriLOSEC) Take 1 Capsule by mouth in the morning. 90 Capsule 1 11/15/2022 Active Vitamin D3 1.25 MG (70932 UT) Oral Capsule Take 1 Capsule by mouth once a week. 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 Contacted ENT in the area and was told to follow up with surgeon. PCP placed STAT ENT referral. Patient is agreeable to video visit. * Telephone Encounter - Jad Boone MD - 11/08/2023 1:31 PM EDT Department Sales Manager reports worsening ear symptoms. Will request ENT review again. Jad Boone MD 11/08/2023 documented in this encounter Plan of Treatment Upcoming Encounters Date Type Department Care Team (Late st Contact Info) Description 11/10/2023 1:30 PM EDT Office Visit CardiologyLuis [address] [place] [address] Liss Herrera PA-C [address] [place] [address] 11/20/2023 5:20 PM EDT Anticoagulation Pharmacy Call Center [address] [place] [address] [facility] 58 60 [facility] [place] [address] 01/18/2024 1:30 PM EDT Office Visit Radiation Oncology, [facility] [address] [place] [address] Eros Faust MD [address] [place] [address] 02/13/2024 9:20 AM EDT Office Visit Family [place] [id number] [place] [address] Jad Boone MD [address] [facility] [address] [place] [address] 06/06/2024 9:30 AM EDT Office Visit Cardiology, [place] [address] [place] [address] Yas Mckinnon CRNP [address] [place] [address] Scheduled Referrals Name Type Priority Associated Diagnoses [...] this encounter Medical Devices Implanted Type Area Hazmat Cdl A Driver Device Identifier Shelf Expiration Date Model / Serial / Lot Connector Nerve 2mm 15mm - [id number] Implanted:Qty: 1 on 04/27/2023 by Dudley Hinojosa MD [place] [facility] [place]: Face [employer] [id number] 12/24/2024 [id number] / / [id number] Alloderm 4x7 Thin 0.8-1.2 (28 Units) - [id number] - [id number] Implanted:Qty: 28 on 04/27/2023 by Dudley Hinojosa MD at [place] [facility] [place] Left: Face ABBVIE 12/18/2024 [id number] / [id number] / [id number] Sheeting Monisha 2x3in X.020in - [id number] Implanted:Qty: 1 on 04/27/2023 by Dudley Hinojosa MD at [place] [facility] [place] Left: Ear [employer] 09/25/2024 23-700-20 / / [id number] documented as of this encounter Visit Diagnoses Diagnosis 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 Malignant neoplasm of parotid gland documented in this encounter Advance Directives Documents on File Type Date Recorded 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
--- OUTSIDE RECORDS SUMMARY | 2024-04-25 23:58 | External Medical Summary | Summary of Care ---
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 ising Reason for Referral Head/Neck/Cancer Conditions Specific Condition: Head/Neck Comments Follow up parotic cancer Encounter Details Date Type Department Care Team (Late st Contact Info) Description 11/08/[address] [place] [address] [phone] Jad Boone MD [address] [facility] [address] [place] [address] [phone] Allergies Active Allergy Reactions Criticality Noted Date Comments Bee Venom Hives High 03/14/2017 documented as of this encounter (statuses as of 11/09/2023) Medications Medication Sig Dispensed Refills Start Date End Date Status Omeprazole 20 MG Oral Capsule Delayed Release (PriLOSEC) Take 1 Capsule by mouth in the morning. 90 Capsule 1 11/15/2022 Active Vitamin D3 1.25 MG (12050 UT) Oral Capsule Take 1 Capsule by mouth once a week. 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 Contacted ENT in the area and was told to follow up with surgeon. PCP placed STAT ENT referral. Patient is agreeable to video visit. * Telephone Encounter - Jad Boone MD - 11/08/2023 1:31 PM EDT Truck And Transport Mechanic reports worsening ear symptoms. Will request ENT review again. Jad Boone MD 11/08/2023 documented in this encounter Plan of Treatment Upcoming Encounters Date Type Department Care Team (Late st Contact Info) Description 11/10/2023 1:30 PM EDT Office Visit CardiologyLuis [address] [place] [address] Liss Herrera PA-C [address] [place] [address] 11/20/2023 5:20 PM EDT Anticoagulation Pharmacy Call Center [address] [place] [address] [facility] 58 60 [facility] [place] [address] 01/18/2024 1:30 PM EDT Office Visit Radiation Oncology, [facility] [address] [place] [address] Eros Faust MD [address] [place] [address] 02/13/2024 9:20 AM EDT Office Visit Family [place] [address] [place] [address] Jad Boone MD [address] [facility] [address] [place] [address] 06/06/2024 9:30 AM EDT Office Visit Cardiology, [place] [address] [place] [address] Yas Mckinnon CRNP [address] [place] [address] Scheduled Referrals Name Type Priority Associated Diagnoses [...] this encounter Medical Devices Implanted Type Area Theater Set Production Designer Device Identifier Shelf Expiration Date Model / Serial / Lot Connector Nerve 2mm 15mm - [id number] Implanted:Qty: 1 on 04/27/2023 [place] H[place] [facility] [place] Face [employer] [id number] 12/24/2024 [id number] / / [id number] Alloderm 4x7 Thin 0.8-1.2 (28 Units) - [id number] - [id number] Implanted:Qty: 28 on 04/27/2023 by Dudley Hinojosa MD [place] [facility] [place]: Face ABBVIE 12/18/2024 [id number] / [id number] / [id number] Sheeting Monisha 2x3in X.020in - [id number] Implanted:Qty: 1 on 04/27/2023 by Dudley Hinojosa MD [place] [facility] [place]: Ear [employer] 09/25/2024 23-700-20 / / [id number] documented as of this encounter Visit Diagnoses Diagnosis 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 Malignant neoplasm of parotid gland documented in this encounter Advance Directives Documents on File Type Date Recorded Patient Dixonac Operator Expl anation POLST 04/26/2023 [place] [facility] FOR LIFE-SUSTAINING TREATMENT Latest Code Status on [...] Agents on File Name Relationship Healthcare Agent [facility] Communication [facility] Adult Child Power of Telegrapher Agent Care Teams Service Developer Relationship Specialty Start Date End Date Jad Boone MD [address] [facility] [place] [address] PCP - General Family Medicine 09/20/23 documented as of this encounter
--- OUTSIDE RECORDS SUMMARY | 2024-04-25 23:58 | External Medical Summary | Summary of Care ---
Author Name Unknown Organization [facility] Address [address] [place] [address] Phone [phone] Care Team Providers Care Cluster Bore Operator Name Role Phone Jad Boone MD Primary Care Provider Encounter Details Date Type Department Care Team (Late st Contact Info) Description 11/16/2023 9:40 AM EDT Nurse Only Ancillary, [facility] [address] [place] [address] [phone] Kb, Nurse, RN [address] [place] [address] Allergies Active Allergy Reactions Criticality Noted Date Comments Bee Venom Hives High 03/14/2017 documented as of this encounter (statuses as of 11/16/2023) Medications Medication Sig Dispensed Refills Start Date End Date Status Omeprazole 20 MG Oral Capsule Delayed Release (PriLOSEC) Take 1 Capsule by mouth in the morning. 90 Capsule 1 11/15/2022 Active Vitamin D3 1.25 MG (95412 UT) Oral Capsule Take 1 Capsule by mouth once a week. 12 Capsule 3 01/30/2023 Active Additional Information Patient taking differently:50,000 Units Oral QWEEK,Every Monday, Reported on 05/18/2023 Atorvastatin Calcium 20 MG Oral Tablet (Lipitor)Indicatio ns:Coronary artery disease involving [place] coronary artery of [place] heart without angina pectoris TAKE 1 TABLET, [...] (Lasix)Indications :Chronic diastolic CHF (congestive heart failure) ([facility]) Take 2 Tablets by mouth in the morning. 180 Tablet 1 08/15/2023 Active Metoprolol Succinate ER 25 MG Oral Tablet Extended Release 24 Hour (Toprol XL)Indications:Chr onic diastolic CHF (congestive heart failure) ([facility]) Take 1 Tablet by mouth in the [...] Oral Tablet (Coumadin)Indicati ons:PAF (paroxysmal atrial fibrillation) ([facility]) Take 1 Tablet by mouth every evening. 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 I cleaned up both his legs with warm water and soap. Then dried. Halley stated she wanted him to have them put back on. Pt asked to go home and shower first. Pt went and showered and returned to the clinic. I applied charlene boot, rolled gauze and coban. Pt states that it is not too tight and feels fine. Pt was instructed to have them on for a week. Pt refusedand will be back Monday for removal and reassessment. documented in this encounter Plan of Treatment Upcoming Encounters Date Type Department Care Team (Late st Contact Info) Description 11/20/2023 5:20 PM EDT Anticoagulation Pharmacy Call Center 58-60 [facility] [place] [address] Cc[facility], [facility] 58 60 [facility] [address] 11/21/2023 8:15 AM EDT Appointment Radiology, [address] [address] 11/21/2023 10:45 AM EDT Appointment Cardiac Studies, [address] [address] 11/21/2023 2:00 PM EDT Nurse Only Ancillary, [place] [address] [place] [address] [place], Nurse, RN [facility] [address] [place] [address] 01/18/2024 1:30 PM EDT Office Visit Radiation Oncology, [facility] [address] [place] [address] Eros Faust MD [address] [place] [address] 02/13/2024 9:20 AM EDT Office Visit Family Practice, [place] [address] [place] [address] Jad Boone MD [address] [facility] [address] [place] [address] 06/06/2024 9:30 AM EDT Office Visit Cardiology, [place] [address] [place] [address] Yas Mckinnon CRNP [address] [place] [address] Health Maintenance Due Date Last Done Comments [...] this encounter Medical Devices Implanted Type Area Form Setter Metal Road Forms Device Identifier Shelf Expiration Date Model / Serial / Lot Connector Nerve 2mm 15mm - [id number] Implanted:Qty: 1 on 04/27/2023 by Dudley Hinojosa MD at OR [facility] [place] Left: Face [employer] [id number] 12/24/2024 [id number] / / [id number] Alloderm 4x7 Thin 0.8-1.2 (28 Units) - [id number] - [id number] Implanted:Qty: 28 on 04/27/2023 by Dudley Hinojosa MD at OR [facility] [place] Left: Face ABBVIE 12/18/2024 [id number] / [id number] / [id number] Sheeting Monisha 2x3in X.020in - [id number] Implanted:Qty: 1 on 04/27/2023 by Dudley Hinojosa MD at OR 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
--- OUTSIDE RECORDS SUMMARY | 2024-04-25 23:58 | External Medical Summary | Summary of Care ---
Author Name Unknown Organization [facility] Address [address] [place] [address] Phone [phone] Care Team Providers Care Range Manager Name Role Phone Jad Boone MD Primary Care Provider Reason for Visit * Reason Comments Dosage Adjustment Via Phone (anticoag Cl inic) Encounter Details Date Type Department Care Team (Latest Contact Info) Description 11/20/2023 5:20 PM EDT Anticoagulation Pharmacy Call Center [address] [place] [address] [facility] 58 60 [place] [address] PAF (paroxysmal atrial fibrillation) ([facility])* [...] 1 11/15/2022 Active Vitamin D3 1.25 MG (11518 UT) Oral Capsule Take 1 Capsule by mouth once a week. 12 Capsule 3 01/30/2023 Active Additional Information Patient taking differently:50,000 Units Oral QWEEK,Every Monday, Reported on 05/18/2023 Atorvastatin Calcium 20 MG Oral Tablet (Lipitor)Indicatio ns:Coronary artery disease involving [place] coronary artery of [...] other days and as directed by [facility] 100 Tablet 1 10/04/2023 Active [...] [place] coronary artery without angina pectoris 01/07/2015 parts [...] this encounter Progress Notes * Alyson Salinas, [facility] - 11/20/2023 1:34 PM EDT Medication Therapy Disease Management - Anticoagulation Patient: Stephen Varela | : 1945 Subjective Intermediate/SNF Patient Anticoagulation Encounter Patient is a resident at: [facility] -- Fax sent to number listed above detailing plan of care below. INR not drawn today as planned- Please have drawn tomorrow. Please notify clinic with any unusual brusing or bleeding, N/V/D, medication or diet changes or anymissed or extra doses of Coumadin. Patient-Reported Symptoms: Objective Current Warfarin Dose As of 11/20/2023 Warfarin maintenance plan: 5 mg (1 mg x 5) every Tue, Wed, Fri; 7.5 mg (1 mg x 7.5) all other days INR Result As of 11/20/2023 INR goal: 2.0-3.0 INR used for dosing: No new INR was available at the time of this encounter. 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 No INR result available from today. Asked for call back advising if labs were drawn, or when future labs were scheduled if not drawn today for some reason. After leaving message, I saw a TE from today from patient directly calling in stating his INR was not drawn today. Please advise. Thank you, Ludivina Fortune Vault Custodian [facility] 11/20/2023,1:32 PM documented in this encounter Plan of Treatment Upcoming Encounters Date Type Department Care Team (Late st Contact Info) Description 11/21/2023 8:15 AM EDT Hospital Encounter Radiology, [address] [place] [address] 11/21/2023 10:45 AM EDT Appointment Cardiac Studies, [facility] [address] [place] [address] 11/21/2023 2:00 PM EDT Nurse Only Ancillary, [place] [address] [place] [address] [place], Nurse, RN [address] [place] [address] 01/18/2024 1:30 PM EDT Office Visit Radiation Oncology, [facility] [address] [place] [address] Eros Faust MD [address] [place] [address] 02/13/2024 9:20 AM EDT Office Visit Family Practice, [place] [address] [place] [address] Jad Boone MD [address] [place] [address] [place] [address] 06/06/2024 9:30 AM EDT Office Visit Cardiology, [address] [place] [address] Yas Mckinnon CRNP [address] [place] [address] Health Maintenance Due Date Last Done Comments [...] this encounter Medical Devices Implanted Type Area Cone Machine Operator Device Identifier Shelf Expiration Date Model / Serial / Lot Connector Nerve 2mm 15mm - [id number] Implanted:Qty: 1 on 04/27/2023 by Dudley Hinojosa MD at OR [facility] Left: Face [employer] [id number] 12/24/2024 [id number] / / [id number] Alloderm 4x7 Thin 0.8-1.2 (28 Units) - [id number] - [id number] Implanted:Qty: 28 on 04/27/2023 by Dudley Hinojosa MD at OR [facility] Left: Face ABBVIE 12/18/2024 [id number] / [id number] / [id number] Sheeting Monisha 2x3in X.020in - [id number] Implanted:Qty: 1 on 04/27/2023 by Dudley Hinojosa MD at OR [facility] Left: Ear [employer] 09/25/2024 23-700-20 / / [id number] documented as of this encounter Visit Diagnoses Diagnosis PAF (paroxysmal atrial fibrillation) (HCC)- Primary Atrial fibrillation documented in this encounter Advance Directives Documents on File Type Date Recorded Patient Student Services Rep Expl anation POLST 04/26/2023 [place] [facility] FOR [...] Agents on File Name Relationship Healthcare Agent [facility] p Communication Brody Avery Adult Child Power of Associate Chief Nurse Care Teams Range Manager Relationship Specialty Start Date End Date Jad Boone MD [address] [place] [address] [place] [address] PCP - General Family Medicine 09/20/23 documented as of this encounter
--- OUTSIDE RECORDS SUMMARY | 2024-04-25 23:58 | External Medical Summary | Summary of Care ---
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) Jad Boone MD [address] [address] Referral ID Status Reason Start Date Expiration Date Visits Requested Visits Authorized [id number] Authorized Specialty Services Required 11/08/2023 [id number] Encounter Details Date Type Department Care Team (Late st Contact Info) Description 11/13/2023 3:00 PM EDT Telemedicine Otolaryngology/Head & Neck/Facial Plastic Surgery [address] [place] [address] Gurvinder Garcia MD [address] [place] [address] Squamous cell carcinoma of face*; Mass of left parotid gland; 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 90 Capsule 1 11/15/2022 Active Vitamin D3 1.25 MG (95374 UT) Oral Capsule Take 1 Capsule by mouth once a week. 12 Capsule 3 01/30/2023 Active Additional Information Patient taking differently:50,000 Units Oral QWEEK,Every Monday, Reported on 05/18/2023 Atorvastatin Calcium 20 MG Oral Tablet (Lipitor)Indicatio ns:Coronary artery disease involving minto coronary artery of minto heart without angina pectoris TAKE 1 TABLET, [...] all other days and as directed by [facility] 100 Tablet 1 10/04/2023 Active guaiFENesin [...] as of this encounter (statuses as of 11/13/2023) Active Problems Problem Noted Date Diagnosed Date [...] fibrillation) 10/18/2018 Coronary artery disease invo lving minto coronary artery without angina pectoris 01/07/2015 care [...] as of this encounter (statuses as of 11/13/2023) Resolved Problems Problem Noted Date Diagnosed Date Resolved Date Ankylosing spondylitis of un specified sites in spine 08/16/2023 10/04/2023 Overview: CT 2022: "ossification of the supraspinous ligament consistent with ankylosing spondylitis. ". Closed T10 spinal fracture 03/28/2023 1 10/17/2022 Heart failure, diastolic, wi th acute decompensation 03/28/2023 08/16/2023 Symptomatic anemia 04/02/2022 08/13/202 2 Acute blood loss anemia 04/02/202210/20 Hypoxia [...] as of this encounter (statuses as of 11/13/2023) Immunizations Name Administration Dates Next Due COVID-19 [...] as of this encounter Progress Notes * Gurvinder Garcia MD - 11/13/2023 4:03 PM EDT Images from the original note were not included. Department of Otolaryngology - Head and Neck Surgery Facial Plastic Surgery [address] [address] 09/29/2023 9:13 AM CC: The patient was a 77-year-old gentleman who is referred to me by Dr. Dudley Purdy. 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 This was excised. - Left wide local excision, left parotidectomy, left neck dissection, submental island flap reconstruction, and STSG to the left ear canal on 04/27/23. - Final pathology [id number]. Tumor board recommendation for adjuvant radiation. The patient has had completed his radiation. There is bone exposed in the region of the left temporal. Also his left ear canal is rather stenotic with him having problems listening out of the left ear. History of Present Illness: No Deafness, No Tinnitus, No Vertigo, No Ear drainage, No Otalgia, No Taste disturbance, No Facial nerve palsy Stephen Varela is a 77 year old male seen at the request of Jad Boone MD for the initial evaluation of left ear stenosis. 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 Z79.01 Coronary artery disease involving minto coronary artery without angina pectoris I25.10 PAF (paroxysmal atrial fibrillation) ([facility]) I48.0 Mild intermittent asthma without complication J45.20 Other specified peripheral vascular diseases ([facility]) I73.89 Chronic diastolic CHF (congestive heart failure) ([facility]) I50.32 Essential hypertension with goal blood pressure [...] of parotid gland (HCC) C07 Past Medical History: Diagnosis Date Atrial fibrillation (HCC) 2011 Heart failure, systolic, due to CAD (HCC) 08/28/2012 ECHO 2011 - Segmental wall abnormality, severe hypokinesis of anterior septum, anterior wall, apex,distal inferior septum, distal inferior wall, and distal posterior wall EF 33% Secondary hypercoagulable state (HCC) 05/01/2014 Past Surgical History: Procedure Laterality Date FACE/SCALP DEEP TUMOR REMOVAL, 2 CM OR MORE Left 04/27/2023 EXCISION FACE/SCALP DEEP TUMOR, 2 CM OR MORE performed by Dudley Hinojosa MD at [place] [facility] [place] P[facility]ICLE FLAP N/A 04/27/2023 ISLAND PEDICLE FLAP performed by Dudley Hinojosa MD at [place] [facility] REMOVAL OF NECK LYMPH NODES Left 04/27/2023 CERVICAL LYMPHADENECTOMY COMPLETE performed by Dudley Hinojosa MD at OR [facility] REMOVAL OF PAROTID GLAND/TUMOR N/A 04/27/2023 EXCISION PAROTID TOTAL WITH DISSECTION FACIAL NERVE performed by Dudley Hinojosa MD at OR [facility] REMOVAL OF TONSILS, AGE 12+ REPAIR HIP FRACTURE(S), W/FIXATION Right REPAIR SLIDING HERNIA Medications Current Outpatient Medications Medication Sig Dispense Refill Omeprazole 20 MG Oral Capsule Delayed Release (PriLOSEC) Take 1 Capsule by mouth in the morning. 90Capsule 1 Vitamin D3 1.25 MG (53490 UT) Oral Capsule Take 1 Capsule by [...] mouth in the morning. 90 Tablet 3 Vzlutksxv-Alsnuwyu-Ngqiqo Alc -14-10.5 % External Cream Apply to both lower extremities once a day56 g 2 Warfarin Sodium 5 MG Oral Tablet (Coumadin) Take 1 Tablet by mouth every evening. 09/28: 10 mg; Otherwise 5 mg every e, Wed, Fri; 7.5 mg all other days and as directed by [facility] 100 Tablet 1 guaiFENesin 400 MG Oral Tablet Take 1 Tablet by mouth every 4 hours as needed (cough or sinus drainage). 100 Tablet 0 Ventolin HFA 108 (90 Base) MCG/ACT Inhalation Aerosol Solution Inhale 2 Puffs by mouth every 4 hours as needed for Shortness of Breath. Lisinopril 10 MG Oral Tablet (Prinivil) Take 1 Tablet by mouth in the morning. 90 Tablet 3 No current facility-administered medications for this visit. Allergies Review of patient's allergies indicates: Allergen Reactions Bee Venom Hives Family History No family history on file. Social History Social History Tobacco Use Smoking status: Former Current packs/day: 0.00 Types: Cigarettes Quit date: 2003 Years since quittin.2 Passive exposure: Past Smokeless tobacco: Never Tobacco comments: smoked, and quit in 2003 Substance Use Topics Alcohol use: No Vaping/E-Cigarette Use Vaping/E-Cigarette Use Never User Passive Exposure No Counseling Given? No Vaping/E-Cigarette Substances Nicotine No Other No Flavoring No THC No Cannabidiol (CBD) No Vaping/E-Cigarette Devices Disposable No Pre-filled or Refillable Cartridge No Refillable Tank No Pre-filled Pod No Review of Systems Negative for constitutional, eyes, cardiac, pulmonary, hepatic, renal, digestive, hematologic, epileptic, syncopal, musculo-skeletal, mental health, integumentary, hypertensive, lipid, arthritic, diabetic, thyroid, or neurologic disorders (except as listed in the PMH and Problem List). Physical Examination: There were no vitals taken for this visit. Vital Signs: There were no vitals filed for this visit. General: this is a healthy appearing male who appears his stated age, comfortable, and appropriately verbally conversant without hoarseness. Face: no cutaneous masses or lesions. Facial movement was symmetric without weakness. There was no sinus tenderness elicited. The parotid and submandibular glands were normal to palpation. Eyes: EOMI, pupils equal and reactive. No nystagmus. Cranial Nerves: Cranial nerves II, III, IV, and were noted to be intact via extra-ocular muscle movement testing. Cranial nerve VII noted to be intact and symmetric by facial movement. Cranial nerve VIII was tested with tuning fork examination and revealed symmetric hearing. Cranial nerves IX and X noted to be intact by gag reflex and palatal movement. Cranial nerve XII noted to be intact by active and symmetric tongue movement. Nose: Examination of the nose revealed septum is non-obstructing. The turbinates are normal in appearance. No lesions, masses, polyps, or mucopurulence. Oral cavity: Examination of the oral cavity revealed no mass lesions or infection. The palate was noted to be intact without evidence of clefting. The tongue exhibited normal mobility.edebntulous Oropharynx: Mucosa was moist without lesion or inflammation. Uvula midline. Tonsils removed Ears: Examination of the ears revealed that the auricles were normally formed with no lesions. The external auditory canals were cleaned of any obstructing cerumen. Right Ear: Tympanic membrane intact and freely mobile to pneumatoscopy. No evidence of perforations, effusions, infection, or retraction pockets.patient has some cerumen which is non occlusive Left Ear: Tympanic membrane cannot be visualized due to the ear4 canal being stenotic Tuning fork examination with the 512 [address]z tuning fork revealed symmetric hearing with air > bone on the right side left side air and bone is not heard but on quintanilla test he feels vibrations in theleft ear . Quintanilla non-lateralizing.? Left ear Neck: Visualization and palpation of the neck revealed no masses, thyromegaly or thyroid masses. Lymphatics (cervical):There were no palpable lymph nodes in the posterior triangle, submandibular triangle, jugulodigastric region, or central neck. Lungs: The lungs were auscultated and breath sounds were clear bilaterally. Heart: Ausculation of the heart revealed a regular rate and rhythm without murmur. 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 He will most likely require a an external ear canal reconstruction with a possible skin graft to the left ear along with burring down of the bone in the temporal fossa along with skin grafting there as well. Most of the surgery will have to be taken will take place posteriorly rather than anteriorly for fear of getting into the temporomandibular joint. It may be necessary to turned down the temporalis muscle flap to close the defect. The possibility of using a temporoparietal fascia graft was also discussed. I will 1st obtain an audiogram on him today. I will see him back after the audiogram is completed. Dr. Purdy plans to do the surgery sometime in October. This will be done after he has his PET scan. It was imperative that the patient see a ream cutter for the lesions on his lower extremities. Before seeing them I would suggest that he apply calamine lotion with Benadryl to his lower extremities. I have reviewed the patient's audiogram. He has a high-frequency sensorineural hearing loss which is yuzp-lg-bvqigifk in the right ear. He has a similar pattern of hearing loss on his bone lines on the left side air conduction was not performed. Word understand an understanding is 96% at 92% in theright left ears respectively. Consent I have discussed the surgery with the patient. We have consented him for ear canal reconstruction using local flaps and split-thickness skin graft mae meatoplasty burring down of exposed bone with Integra grafting possible temporoparietal fascia flap versus a temporalis muscle flap. The possibility of a mastoidectomy was also discussed. Complications were discussed include but not limited to bleeding infection scarring numbness failure of the procedure need for further operations inability to cure the condition, 7th nerve paralysis causing disfigurement of of facial expression which could be temporary or permanent taste disturbance complete hearing loss and dizziness. The patient understands and consents to undergo the procedure. I will order a Ct scan of the temporal bones Gurvinder Garcia MD Otolaryngology Attending 09/29/23 9:13 AM 11/13/2023 4:17 PM {choose for phone only After connecting to the patient via telephone, the patient was identified by name and date of . Patient was then informed that this was a telephone call only visit. The patient agreed to participate. Visit Disposition: Routine follow-up Total call duration was 5 minutes. HISTORY OF PRESENT ILLNESS This 78 year old male is called during the COVID-19 pandemic. 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 Z79.01 Coronary artery disease involving minto coronary artery without angina pectoris I25.10 PAF (paroxysmal atrial fibrillation) (HCC) I48.0 Mild intermittent asthma without complication J45.20 Other specified peripheral vascular diseases (HCC) I73.89 Chronic diastolic CHF (congestive heart failure) (HCC) I50.32 Essential hypertension with goal blood pressure less than 140/90 I10 Dyslipidemia, goal LDL below 70 E78.5 Atypical migraine G43.009 Other specified anemias D64.89 Suspected sleep apnea R29.818 Mass of left parotid gland K11.8 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) C76.0 Malignant neoplasm of head, face and neck (HCC) C76.0 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) C07 Problem List Patient Active Problem List Diagnosis Code Heart failure, systolic, due to CAD (HCC) I50.20, I25.10 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 Z79.01 Coronary artery disease involving minto coronary artery without angina pectoris I25.10 PAF (paroxysmal atrial fibrillation) ([facility]) I48.0 Mild intermittent asthma without complication J45.20 Other specified peripheral vascular diseases (HCC) I73.89 Chronic diastolic CHF (congestive heart failure) (HCC) I50.32 Essential hypertension with goal blood pressure [...] of parotid gland (HCC) C07 Past Medical History: Diagnosis Date Atrial [...] performed by Dudley Hinojosa MD at [place] [facility] [place] [facility] [place] N/A 04/27/2023 ISLAND PEDICLE FLAP performed by Dudley Hinojosa MD at [place] [facility] REMOVAL OF NECK LYMPH NODES Left 04/27/2023 CERVICAL LYMPHADENECTOMY COMPLETE performed by Dudley Hinojosa MD at [place] [facility] REMOVAL OF PAROTID GLAND/TUMOR N/A 04/27/2023 EXCISION PAROTID TOTAL WITH DISSECTION FACIAL NERVE performed by Dudley Hinojosa MD at OR [facility] REMOVAL OF TONSILS, AGE 12+ REPAIR HIP FRACTURE(S), W/FIXATION Right REPAIR SLIDING HERNIA Medications Current Outpatient Medications Medication Sig Dispense Refill Omeprazole 20 MG Oral Capsule Delayed Release (PriLOSEC) Take 1 Capsule by mouth in the morning. 90Capsule 1 Vitamin D3 1.25 MG (84740 UT) Oral Capsule Take 1 Capsule by [...] mouth in the morning. 90 Tablet 3 Mhkzlygnr-Peajklyw-Xejglw Alc 2-14-10.5 % External Cream Apply to both lower extremities once a day56 g 2 Warfarin Sodium 5 MG Oral Tablet (Coumadin) Take 1 Tablet by mouth every evening. 2/8: 10 mg; Otherwise 5 mg every e, Wed, Mon; 7.5 mg all other days and as directed by [facility] 100 Tablet 1 guaiFENesin 400 MG Oral Tablet Take 1 Tablet by mouth every 4 hours as needed (cough or sinus drainage). 100 Tablet 0 Ventolin HFA 108 (90 Base) MCG/ACT Inhalation Aerosol Solution Inhale 2 Puffs by mouth every 4 hours as needed for Shortness of Breath. Lisinopril 10 MG Oral Tablet (Prinivil) Take 1 Tablet by mouth in the morning. 90 Tablet 3 No current facility-administered medications for this visit. Allergies Review of patient's allergies indicates: Allergen Reactions Bee Venom Hives Family History No family history on file. Social History Social History Tobacco Use Smoking status: Former Current packs/day: 0.00 Types: Cigarettes Quit date: 2003 Years since quittin.2 Passive exposure: Past Smokeless tobacco: Never Tobacco comments: smoked, and quit in 2003 Substance Use Topics Alcohol use: No Vaping/E-Cigarette Use Vaping/E-Cigarette Use Never User Passive Exposure No Counseling Given? No Vaping/E-Cigarette Substances Nicotine No Other No Flavoring No THC No Cannabidiol (CBD) No Vaping/E-Cigarette Devices Disposable No Pre-filled or Refillable Cartridge No Refillable Tank No Pre-filled Pod No Occupational History Work: Review of Systems Negative for constitutional, eyes, cardiac, pulmonary, hepatic, renal, digestive, hematologic, epileptic, syncopal, musculo-skeletal, mental health, integumentary, hypertensive, lipid, arthritic, diabetic, thyroid, or neurologic disorders (except as listed in the PMH and Problem List). Physical Examination: There were no vitals taken for this visit. I have reviewed the patient's CT scan. He will need a left-sided mastoidectomy intact canal wall facial recess approach along with a canal plasty. We may also have to convert the mastoidectomy into acanal wall-down procedure. I attempted to call the patient but he did not answer his phone. I have left a message that I have looked at his PET scans and at his CT scans. I will wait to hear from Dr. Purdy about further management and timing of management. Visit Disposition: Routine follow-up Total call duration was 5 minutes . The patient called me back. 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 He would like to have his surgery at the end of November. He asked me if I was going to be out of town and explained to him that I will be out of town in December. I have informed him that I will inform April Peters and Ashlee bullate his care. This visit was conducted via Telemedicine during the [address] At this time onlyurgent conditions are permitted to have live in- person provider visits. This visit consisted of a scheduled appointment in [facility], direct physician/provider interaction consisting of chief complaint, HPI, past medical and surgical history, medications, social history, pertinent review of systems, a physical examination either through camera interaction or through surrogate exam, review of imaging or labs, medical decision-making, impression and plan, electronically prescribing medication or ordering imaging or labs, communication with referring and other providers, updating the patient problem l ist, or determining appropriate follow up. Gurvinder Garcia MD 11/13/2023 4:17 PM documented in this encounter Plan of Treatment Upcoming Encounters Date Type Department Care Team (Late st Contact Info) Description 11/16/2023 9:40 AM EDT Nurse Only Ancillary, [facility] [address] [place] [id number] [place], Nurse, RN [facility] [place] [address] 11/20/2023 5:20 PM EDT Anticoagulation Pharmacy Call Center [address] [place] [address] [facility], [facility] [address] [place] [address] 11/21/2023 8:15 AM EDT [address] [address] 11/21/2023 10:45 AM EDT Appointment [address], [address] [place] [address] 01/18/2024 1:30 PM EDT Office Visit Radiation Oncology, [facility] [address] [place] [address] Eros Faust MD [address] [place] [address], [place] [address] 02/13/2024 9:20 AM EDT Office Visit Family [facility], [place] [id number] [place] [address] Jad Boone MD [address] [place] [address] 06/06/2024 9:30 AM EDT Office Visit Cardiology, [place] [address] [place] [address] Yas Mckinnon CRNP [address] [facility] [place] [address] Scheduled Referrals Name Type Priority Associated Diagnoses [...] this encounter Medical Devices Implanted Type Area Dispensing Operator Device Identifier Shelf Expiration Date Model / Serial / Lot Connector Nerve 2mm 15mm - [id number] Implanted:Qty: 1 on 04/27/2023 by Dudley Hinojosa MD [place] [facility] Left: Face [employer] [id number] 12/24/2024 [id number] / / [id number] Alloderm 4x7 Thin 0.8-1.2 (28 Units) - [id number] - [id number] Implanted:Qty: 28 on 04/27/2023 by Dudley Hinojosa MD at [place] [facility] Left: Face ABBVIE 12/18/2024 [id number] / [id number] / [id number] Sheeting Monisha 2x3in X.020in - [id number] Implanted:Qty: 1 on 04/27/2023 by Dudley Hinojosa MD at [place] [facility] Left: Ear [employer] 09/25/2024 23-700-20 / / [id number] documented as of this encounter Visit Diagnoses Diagnosis Squamous cell carcinoma of face- Primary Squamous cell carcinoma of skin of other and unspecified parts of face Mass of left parotid gland 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 Acquired stenosis of external ear canal unspecified as to cause documented in this encounter Advance Directives Documents on File Type Date Recorded 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
--- OUTSIDE RECORDS SUMMARY | 2024-04-25 23:58 | External Medical Summary | Summary of Care ---
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 ising Reason for Referral Head/Neck/Cancer Conditions Specific Condition: Head/Neck Comments Follow up parotic cancer Encounter Details Date Type Department Care Team (Late st Contact Info) Description 11/08/[address] [place] [address] [phone] Jad Boone MD [address] [facility] [address] [place] [address] [phone] Allergies Active Allergy Reactions Criticality Noted Date Comments Bee Venom Hives High 03/14/2017 documented as of this encounter (statuses as of 11/09/2023) Medications Medication Sig Dispensed Refills Start Date End Date Status Omeprazole 20 MG Oral Capsule Delayed Release (PriLOSEC) Take 1 Capsule by mouth in the morning. 90 Capsule 1 11/15/2022 Active Vitamin D3 1.25 MG (44923 UT) Oral Capsule Take 1 Capsule by mouth once a week. 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 Contacted ENT in the area and was told to follow up with surgeon. PCP placed STAT ENT referral. Patient is agreeable to video visit. * Telephone Encounter - Jad Boone MD - 11/08/2023 1:31 PM EDT Cutter Helper reports worsening ear symptoms. Will request ENT review again. Jad Boone MD 11/08/2023 documented in this encounter Plan of Treatment Upcoming Encounters Date Type Department Care Team (Late st Contact Info) Description 11/10/2023 1:30 PM EDT Office Visit CardiologyLu[facility] [address] [place] [address] Liss Herrera PA-C [address] [place] [address] 11/20/2023 5:20 PM EDT Anticoagulation Pharmacy Call Center [phone] [place] [address] [facility] [address] [facility] [place] [address] 01/18/2024 1:30 PM EDT Office Visit Radiation Oncology, [facility] [address] [place] [address] Eros Faust MD [address] [place] [address] 02/13/2024 9:20 AM EDT Office Visit Family [place] [id number] [place] [address] Jad Boone MD [address] [facility] [address] [place] [address] 06/06/2024 9:30 AM EDT Office Visit Cardiology, [place] [address] [place] [address] Yas Mckinnon CRNP [address] [place] [address] Scheduled Referrals Name Type Priority Associated Diagnoses [...] this encounter Medical Devices Implanted Type Area C[employer] President Device Identifier Shelf Expiration Date Model / Serial / Lot Connector Nerve 2mm 15mm - [id number] Implanted:Qty: 1 on 04/27/2023 by Dudley Hinojosa MD [place] [facility] [place]: Face [employer] [id number] 12/24/2024 [id number] / / [id number] Alloderm 4x7 Thin 0.8-1.2 (28 Units) - [id number] - [id number] Implanted:Qty: 28 on 04/27/2023 by Dudley Hinojosa MD at [place] [facility] [place] Left: Face ABB[employer]IE 12/18/2024 [id number] / [id number] / [id number] Sheeting Monisha 2x3in X.020in - [id number] Implanted:Qty: 1 on 04/27/2023 by Dudley Hinojosa MD at [place] [facility] [place] Left: Ear [employer] 09/25/2024 23-700-20 / / [id number] documented as of this encounter Visit Diagnoses Diagnosis 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 Malignant neoplasm of parotid gland documented in this encounter Advance Directives Documents on File Type Date Recorded 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
--- OUTSIDE RECORDS SUMMARY | 2024-04-25 23:58 | External Medical Summary | Summary of Care ---
Author Name Unknown Organization [facility] Address [address] [place] [address] Phone [phone] Care Team Providers Care Mammography Supervisor Name Role Phone Jad Boone MD Primary Care Provider Reason for Visit * Reason Onset Date Comments TRIAGE 11/08/2023 Encounter Details Date Type Department Care Team (Late st Contact Info) Description 11/08/2023 Telephone Otolaryngology [facility] [address] [place] [address] Services, Scheduling [address] [place] [address] TRIAGE Allergies Active Allergy Reactions Criticality Noted Date Comments Bee Venom Hives High 03/14/2017 documented as of this encounter (statuses as of 11/10/2023) Medications Medication Sig Dispensed Refills Start Date End Date Status Omeprazole 20 MG Oral Capsule Delayed Release (PriLOSEC) Take 1 Capsule by mouth in the morning. 90 Capsule 1 11/15/2022 Active Vitamin D3 1.25 MG (57146 UT) Oral Capsule Take 1 Capsule by mouth once a week. 12 Capsule 3 01/30/2023 Active Additional Information Patient taking differently:50,000 Units Oral QWEEK,Every Monday, Reported on 05/18/2023 Atorvastatin Calcium 20 MG Oral Tablet (Lipitor)Indication s:Coronary artery disease involving [place] coronary artery of [place] heart without angina pectoris TAKE 1 TABLET, [...] (Lasix)Indications: Chronic diastolic CHF (congestive heart failure) ([facility]) Take 2 Tablets by mouth in the morning. 180 Tablet 1 08/15/2023 Active Lisinopril 5 MG Oral Tablet (Prinivil)Indicatio ns:Chronic diastolic CHF (congestive heart failure) ([facility]) Take 1 Tablet by mouth in the morning. 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 8: 10 mg; Otherwise 5 mg every Tue, Wed, Fri; 7.5 mg all other days and as directed by [facility] Pharm[facility] 100 Tablet 1 10/04/2023 Active guaiFENesin [...] fibrillation) 10/18/2018 Coronary artery disease invo lving [place] coronary artery without angina pectoris 01/07/2015 intermediate [...] encounter Miscellaneous Notes * Telephone Encounter - Bella Rome LPN - 11/10/2023 12:26 PM EDT VM left for Pt. Called to check on ear pain & swelling & if he is wants a appt with . has agreed to do a telephonic visit on 11/13/23 if he need it. * Telephone Encounter - Carla Norris LPN - 11/08/2023 2:20 PM EDT Patient was seen by Dr. Garcia and Dr. Hinojosa 09/29/2023. Please see below. * Telephone Encounter - Yas Fernandez OSA - 11/08/2023 1:49 PM EDT Pt has a 3 day urgent referral for Primary squamous cell carcinoma of parotid gland Please triage, advise date and time. documented in this encounter Plan of Treatment Upcoming Encounters Date Type Department Care Team (Late st Contact Info) Description 11/10/2023 1:30 PM EDT Office Visit [facility], [place] [address] [facility] [place] [address] Liss Herrera PA-C [address] [facility] [place] [address] 11/20/2023 5:20 PM EDT Anticoagulation Pharmacy Call Center [phone] [facility] [place] [address] [facility] [address] [facility] [place] [address] 01/18/2024 1:30 PM EDT Office Visit Radiation Oncology, [facility] [address] [place] [address] Eros Faust MD [address] [place] [address] 02/13/2024 9:20 AM EDT Office Visit Family [facility], [place] [address] [address] [facility] [place] [address] Jad Boone MD [address] [place] [address] 06/06/2024 9:30 AM EDT Office Visit [facility], [place] [address] [facility] [place] [address] Yas Mckinnon CRNP [address] [facility] [place] [address] Health Maintenance Due Date Last Done Comments [...] this encounter Medical Devices Implanted Type Area Customer Contact Representative Device Identifier Shelf Expiration Date Model / Serial / Lot Connector Nerve 2mm 15mm - [id number] Implanted:Qty: 1 on 04/27/2023 by Dudley H[place]josa [place] [facility] [place] Face [employer] [id number] 12/24/2024 [id number] / / [id number] Alloderm 4x7 Thin 0.8-1.2 (28 Units) - [id number] - [id number] Implanted:Qty: 28 on 04/27/2023 by Dudley Hinojosa MD [place] [facility] [place]: Face [employer] 12/18/2024 [id number] / [id number] / [id number] Sheeting Monisha 2x3in X.020in - [id number] Implanted:Qty: 1 on 04/27/2023 by Dudley Hinojosa MD [place] [facility] [place]: Ear [employer] 09/25/2024 23-700-20 / / [id number] documented as of this encounter Advance Directives Documents on File Type Date Recorded Patient Residential Child Care Counselor Expl anation POLST 04/26/2023 [place] [facility]SU[facility]AIN[facility] TREATMENT Latest Code [...] Communication Brody Avery Adult Child Power of Telephoto Installer Care Teams Mammography Supervisor Relationship Specialty Start Date End Date Jad Boone MD [address] [place] [address] [place] [address] PCP - General Family Medicine 09/20/23 documented as of this encounter
--- OUTSIDE RECORDS SUMMARY | 2024-04-25 23:58 | External Medical Summary | Summary of Care ---
Author Name Unknown Organization [facility] Address [address] [place] [address] Phone [phone] Care Team Providers Care Load Out Worker Name Role Phone Jad Boone MD Primary Care Provider Reason for Referral * Precert (Within 10 days (routine)) - Authorized Specialty Diagnoses / Procedures Referred By Contac t Referred To Contact Cardiac Studies Diagnoses Chronic diastolic CHF (congestive heart failure) (HCC) Paroxysmal atrial fibrillation (HCC) Procedures ECHO, COMPLETE (2D), TRANS-THORACIC Liss Herrera PA-C [address] [place] [address] Referral ID Status Reason Start Date Expiration Date V isits Requested Visits Authorized [id number] Authorized Precert 11/10/2023 999 999 * Precert (Within 10 days (routine)) - Pending Review Specialty Diagnoses / Procedures Referred By Contac t Referred To Contact Radiology Diagnoses Chronic diastolic CHF (congestive heart failure) (HCC) Paroxysmal atrial fibrillation (HCC) Procedures NM MYOCARD PERF IMG SPECT MULT STUDIES WITH PHARM INTERV Liss Herrera PA-C [address] [place] [address] Referral ID Status Reason Start Date Expiration Date Visits Requested Visits Authorized [id number] Pending Review Precert 11/11/2023 999 999 Reason for Visit * Reason Comments Pre-op Clearance Encounter Details Date Type Department Care Team (Late st Contact Info) Description 11/10/2023 1:30 PM EDT Office Visit Cardiology, [address] [place] [address] Liss Herrera PA-C [address] [place] [address] Chronic heart failure with preserved ejection fraction (HFpEF) ([facility])*; Paroxysmal atrial fibrillation ([facility]); HTN, goal below 140/90; Preoperative cardiovascular examination Allergies Active Allergy Reactions Criticality Noted Date Comments Bee Venom Hives High 03/14/2017 documented as of this encounter (statuses as of 11/10/2023) Medications Medication Sig Dispensed Refills Start Date End Date Status Omeprazole 20 MG Oral Capsule Delayed Release (PriLOSEC) Take 1 Capsule by mouth in the morning. 90 Capsule 1 3 Active Vitamin D3 1.25 MG (39502 UT) Oral Capsule Take 1 Capsule by mouth once a week. 12 Capsule 3 3 Active Additional Information Patient taking differently:50,000 Units Oral QWEEK,Every Monday, Reported on 05/18/2023 Atorvastatin Calcium 20 MG Oral Tablet (Lipitor)Indicat ions:Coronary artery disease involving [place] coronary artery of [place] heart without angina pectoris TAKE 1 TABLET, [...] (Lasix)Indicatio ns:Chronic diastolic CHF (congestive heart failure) ([facility]) Take 2 Tablets by mouth in the morning. 180 Tablet 1 3 Active Metoprolol Succinate ER 25 MG Oral Tablet Extended Release 24 Hour (Toprol XL)Indications:C hronic diastolic CHF (congestive heart failure) ([facility]) Take 1 Tablet by mouth in the morning. 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 09/28: 10 mg; Otherwise 5 mg every Mon, Mon, Mon; 7.5 mg all other days and as directed by [facility] 100 Tablet 1 4 Active guaiFENesin 400 MG Oral TabletIndication s:Sinus congestion Take 1 Tablet by mouth every 4 hours as needed (cough or sinus drainage). 100 Tablet 0 4 Active Ventolin HFA 108 (90 Base) MCG/ACT Inhalation Aerosol Solution Inhale 2 Puffs by mouth every 4 hours as needed for Shortness of Breath. 0 Active Lisinopril 10 MG Oral Tablet (Prinivil)Indica tions:Chronic heart failure with preserved ejection fraction (HFpEF) ([facility]) Take 1 Tablet by mouth in the morning. 90 Tablet 3 4 Active Antifungal Clotrimazole 1 % External Cream 0 3 11/10/19 24 Discontinued(Med ication List Clean Up) Therems-M Oral Tablet 0 3 11/10/19 24 Discontinued(Med ication List Clean Up) Lisinopril 5 MG Oral Tablet (Prinivil)Indica tions:Chronic diastolic CHF (congestive heart failure) ([facility]) Take 1 Tablet by mouth in the morning. 90 Tablet 1 3 11/10/19 24 Discontinued Cefdinir 300 MG Oral Capsule (Omnicef)Indicat ions:Acute cystitis without hematuria Take 1 Capsule by mouth in the morning and 1 Capsule before bedtime. 10 Capsule 0 4 11/10/19 24 Discontinued(Med ication List Clean Up) documented as of this encounter (statuses as [...] fibrillation) 10/18/2018 Coronary artery disease invo lving lovelock coronary artery without angina pectoris 01/07/2015 group [...] Sign Reading Time Taken Comments Blood Pressure 158/66 11/10/2023 1:24 PM EDT Pulse 56 11/10/2023 1:24 PM EDT Temperature - - Respiratory Rate - - Oxygen Saturation - - Inhaled Oxygen Concentration - - Weight 113.9 kg (251 lb) 11/10/2023 1:24 PM EDT Height 194.3 cm (6' 4.5") 11/10/2023 1:24 PM EDT Body Mass Index 30.15 11/10/2023 1:24 PM EDT documented in this encounter Functional [...] as of this encounter Progress Notes * Liss Herrera PA-C - 11/10/2023 1:30 PM EDT 11/10/2023 Cardiology Follow Up Primary Construction Plumber: Dr. 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 No surgery date scheduled. He is planning to have reconstruction of left ear. Presents today overall feeling well from cardiac standpoint. Has chronic shortness of breath with exertion, thinks stable. Notes leg swelling and weight gain, has been snacking on cookies at night. Denies chest pain, palpitations, PND, orthopnea, lightheadedness, syncope. Compliant with all medications. REVIEW OF SYSTEMS: See HPI for pertinent positives. All others negative other than those noted in the HPI. CONSTITUTIONAL: No change in weight, No weakness, No fatigue and No fevers, No sweats or chills. PULMONARY: No cough, sputum, or hemoptysis, No wheezing, No shortness of breath and No recent change in breathing. CARDIOVASCULAR: No chest pain, + dyspnea on exertion, +edema, No palpitations and No syncope. GASTROINTESTINAL: No abdominal pain, No change in bowel habits, No significant heartburn, No nausea, No vomiting, No diarrhea, No constipation, No blood in stools or black tarry stools. No dysphagia. HEMATOLOGIC: No abnormal bleeding and No bruising. NEUROLOGICAL: Normal balance, No headaches and No weakness. Review of patient's allergies indicates: Allergen Reactions Bee Venom Hives Current Outpatient Medications Medication Sig Dispense Refill Omeprazole 20 MG Oral Capsule Delayed Release (PriLOSEC) Take 1 Capsule by mouth in the morning. 90Capsule 1 Vitamin D3 1.25 MG (87214 UT) Oral Capsule Take 1 Capsule by [...] mouth in the morning. 90 Tablet 3 Warfarin Sodium 5 MG Oral Tablet (Coumadin) Take 1 Tablet by mouth every evening. 09/28: 10 mg; Otherwise 5 mg every Mon, Mon, Mon; 7.5 mg all other days and as directed by [facility] Pharm[facility] 100 Tablet 1 guaiFENesin 400 MG [...] mouth in the morning. 90 Tablet 3 Fawablxsb-Qajghbno-Ksqzrb Alc 2-14-10.5 % External Cream Apply to both lower extremities once a day56 g 2 No current facility-administered medications for this visit. Past Medical History: Diagnosis Date Atrial fibrillation ([facility]) 2012 Heart failure, systolic, due to CAD ([facility]) 08/28/2012 ECHO 2012 - Segmental wall abnormality, severe hypokinesis of anterior septum, anterior wall, apex,distal inferior septum, distal inferior wall, and distal posterior wall EF 33% Secondary hypercoagulable state ([facility]) 05/01/2014 No family history on file. Social History Socioeconomic History Marital status: Tobacco Use Smoking status: Former Current packs/day: 0.00 Types: Cigarettes Quit date: 2003 Years since quittin.2 Passive exposure: Past Smokeless tobacco: Never Tobacco comments: smoked, and quit in 2003 Vaping Use Vaping Use: Never used Substance and Sexual Activity Alcohol use: No Drug use: No Social History Narrative - Lives with Spouse Home is Smoke Free Second marriage. Mr. Varela has three adult children ([place] [facility]) and seven grands, and his has two. Family History: [place]. Social Determinants of Health Food Insecurity: No Food Insecurity (10/10/2023) Hunger Vital Sign Worried About Running Out of Food in the Last Year: Never true Ran Out of Food in the Last Year: Never true OBJECTIVE/PHYSICAL EXAMINATION: BP 158/66 | Pulse 56 | Ht 1.943 m (6' 4.5") | Wt 113.9 kg (251 lb) | BMI 30.15 kg/m | BSA 2.48 m Wt Readings from Last 3 Encounters: 11/10/23 113.9 kg (251 lb) 10/04/23 110.7 kg (244 lb) 09/29/23 111 kg (244 lb 11.2 oz) General: No acute distress. A+Ox3. HEENT: Normocephalic. Atraumatic. PERRL. EOMI. Conjunctiva and sclera clear. Left periauricular wound with greenish yellow drainage NECK: No carotid bruits. No JVD. Carotid upstrokes are brisk. Heart: Irregular, bradycardic. S1 and S2 noted. No murmur. No rubs or gallops. PMI non displaced. Lungs: Clear to auscultation. No wheezes. No rhonchi. No rales. Abdomen: Normal bowel sounds. Soft. Nontender. No masses or organomegaly. No abdominal bruits. Extremities: 1+ bilateral LE edema. No clubbing or cyanosis. Pulses: radial=2/4, posterior tibial=2/4, dorsalis pedis = 2/4. NEURO: No focal deficits. PSYCH: Appropriate affect and insight. DATA Labs & Imaging Reviewed Below: Echo 03/27/23 The examination is limited quality but adequate for evaluation of the referral indication. The qualitative LV ejection fraction is 50-54% (normal). The septal motion is abnormal consistent with intrventricular conduction delay. The right ventricle is inadequately visualized. The right ventricular systolic function is mildly reduced A small posterior loculated pericardial effusion is present. Cardiac tamponade is absent. A large left pleural effusion is present. Dilated IVC with reduced collapsability with sniff indicates an elevated right atrial pressure of 15mmHg. Severe pulmonary hypertension is present. Zio Patch: 10/19/2020: CONCLUSIONS: Final Interpretation 1. 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 The average heart rate was 60bpm. Slowest HR was 23bpm at 8 am consistent with marked 1st degree AVblock and probably Mobitz Type I. The fastest HR was 179bpm at 2:57pm consistent with ventricular couplet. The patient had 2 episodes of complete heart block probably during sleeping hours (10:15pm and 3:31am). 2. Rare APC; no runs of SVT, PAT or AF. 3. Rare VPC with 2 runs of brief NSVT. 4. No symptoms triggered ECGs: 04/19/23 A Fib RBBB 66 bpm QTc 496 ms 03/27/23 A Fib RBBB 66 bpm QTc 492 ms 03/29/22 A Fib RBBB 69 bpm QTc 467 ms 09/11/2020: SB 49bpm 1st degree AV block RBBB ST abnormality in anterior leads ASSESSMENT/PLAN: 78 year old male 1. Chronic heart failure with preserved ejection fraction (HFpEF) (HCC) - mild hypervolemia on exam, weight up, edema present - discussed fluid and sodium restriction, recommend to cut back on the cookies - continue furosemide 20 mg daily 2. Paroxysmal atrial fibrillation (HCC) - rate controlled - continue metoprolol succinate 25 mg daily - continue warfarin for stroke prophylaxis 3. HTN, goal below 140/90 - above goal - increase lisinopril to 10 mg daily, repeat BMP in 1 week 4. Preoperative cardiovascular examination - due to cardiac history and low exercise tolerance, recommend further workup including echo and nuclear stress test prior to surgery DISPOSITION: Follow up as scheduled or sooner if symptoms worsen/fail to improve. All questions were answered to the patients satisfaction. Patient advised to report to ED with any and all emergencies. The patient agrees to the above plan and will call with additional questions or concerns. Liss Herrera PA-C Cardiology, [address] [place] [address] I spent a total of 40 minutes on the date of service in preparation, delivery, and documentation ofthe care provided to Stephen Varela excluding any time spent in the performance of separately billed services. This chart was completed in part utilizing [email or web address] Speech Voice Recognition Software. Grammatical errors, random word insertions, pronoun errors, and incomplete sentences are an occasional consequence of this system due to software limitations, ambient noise, and hardware issues. Any formal questions or concerns about the content, text, or information contained within the body of this dictation should be directly addressed to the provider for clarification. documented in this encounter Nursing Notes * Elinor Araujo RN - 11/10/2023 1:30 PM EDT Patient was identified by name and date of . Name: Stephen Varela Date of : (1945). Examination Room: 2 Reason for Visit: Chief Complaint Patient presents with Pre-op Clearance Interim Hospitalization(s): NO Interim Emergency room visit(s): NO Chest Pain: No SOB: No Problems/Concerns: No Medications reviewed and are up to date via: Assisted Living Facility list Would you like to sign up for [facility]? ALREADY ACTIVE Patient was instructed to not get up on the exam table/exam chair until directed and assisted by their provider; patient is to remain seated in the chair/ wheelchair/ exam table/ exam chair for fall prevention and safety reasons. Patient is aware to have assistance to step down off exam table/exam chair with personnel. Patient voiced full comprehension of instructions. Elinor Araujo RN 1:30 PM 11/10/2023 documented in this encounter Plan of Treatment Upcoming Encounters Date Type Department Care Team (Late st Contact Info) Description 11/13/2023 10:20 AM EDT Nurse Only Ancillary, Kb [address] [place] [phone] Kb, Nurse, RN [address] [place] [address] [place] [id number] 11/13/2023 3:00 PM EDT Telemedicine Otolaryngology/Head & Neck/Facial Plastic Surgery [address] [place] [facility] [place] [address] Gurvinder Garcia MD [address] [place] [facility] [place] [address] 11/20/2023 5:20 PM EDT Anticoagulation Pharmacy Call Center [address] [place] [address] Ccps, [facility] [address] [place] [address] 11/21/2023 8:15 AM EDT Appointment Radiology, [address] [address] 11/21/2023 10:45 AM EDT Appointment Cardiac Studies, [address] [address] 01/18/2024 1:30 PM EDT Office Visit Radiation Oncology, [facility] [address] [place] [address] Eros Faust MD [address] [place] [address] 02/13/2024 9:20 AM EDT Office Visit [place] [address] [place] [address] Jad Boone MD [facility] [address] [place] [address] 06/06/2024 9:30 AM EDT Office Visit Cardiology, [address] [address] Yas Mckinnon CRNP [address] [place] [address] Scheduled Orders Name Type Priority Associated Diagnoses Orde r Schedule NM MYOCARD PERF IMG SPECT MULT STUDIES WITH PHARM INTERV Cardiology Routine Chronic heart failure with preserved ejection fraction (HFpEF) (HCC) Paroxysmal atrial fibrillation (HCC) Expected: 11/11/2023, Expires: 12/10/2024 ECHO, COMPLETE (2D), TRANS-THORACIC Echocardiology Routine Chronic heart failure with preserved ejection fraction (HFpEF) (HCC) Paroxysmal atrial fibrillation (HCC) Expected: 11/10/2023, Expires: 12/10/2025 BASIC METABOLIC PANEL Lab Routine Chronic heart failure with preserved ejection fraction (HFpEF) (HCC) Paroxysmal atrial fibrillation (HCC) HTN, goal below 140/90 Expected: 11/17/2023, Expires: 11/09/2024 Health Maintenance Due Date Last Done Comments [...] this encounter Medical Devices Implanted Type Area Electric Arc Welder Device Identifier Shelf Expiration Date Model / Serial / Lot Connector Nerve 2mm 15mm - [id number] Implanted:Qty: 1 on 04/27/2023 by Dudley Hinojosa MD at [place] [facility] [place] Left: Face [employer] [id number] 12/24/2024 [id number] / / [id number] Alloderm 4x7 Thin 0.8-1.2 (28 Units) - [id number] - [id number] Implanted:Qty: 28 on 04/27/2023 by Dudley Hinojosa MD at [place] [facility] Left: Face ABBVIE 12/18/2024 [id number] / [id number] / [id number] Sheeting Monisha 2x3in X.020in - [id number] Implanted:Qty: 1 on 04/27/2023 by Dudley Hinojosa MD at [place] [facility] [place] Left: Ear [employer] 09/25/2024 23-700-20 / / [id number] documented as of this encounter Visit Diagnoses Diagnosis Chronic heart failure with preserved ejection fraction (HFpEF) (HCC)- Primary Paroxysmal atrial fibrillation (HCC) Atrial fibrillation HTN, goal below 140/90 Unspecified essential hypertension Preoperative cardiovascular examination Pre-operative cardiovascular examination documented in this encounter Advance Directives Documents on File Type Date Recorded 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
--- OUTSIDE RECORDS SUMMARY | 2024-04-25 23:58 | External Medical Summary | Summary of Care ---
Author Name Unknown Organization [facility] Address [address] [place] [facility] [place] [address] Phone [phone] Care Team Providers Care Goods Layer Name Role Phone Jad Boone MD Primary Care Provider Reason for Visit * Reason Comments Wound Care Encounter Details Date Type Department Care Team (Late st Contact Info) Description 11/08/2023 3:20 PM EDT Nurse Only Ancillary, Kb [facility] [address] [place] [address] [place] [phone] Kb, Nurse, RN [address] [place] [phone] Wound Care Allergies Active Allergy Reactions Criticality Noted Date Comments Bee Venom Hives High 03/14/2017 documented as of this encounter (statuses as of 11/08/2023) Medications Medication Sig Dispensed Refills Start Date End Date Status Omeprazole 20 MG Oral Capsule Delayed Release (PriLOSEC) Take 1 Capsule by mouth in the morning. 90 Capsule 1 11/15/2022 Active Vitamin D3 1.25 MG (00291 UT) Oral Capsule Take 1 Capsule by mouth once a week. 12 Capsule 3 01/30/2023 Active Additional Information Patient taking differently:50,000 Units Oral QWEEK,Every Monday, Reported on 05/18/2023 Atorvastatin Calcium 20 MG Oral Tablet (Lipitor)Indication s:Coronary artery disease involving [place] coronary artery of [place] heart without angina pectoris TAKE 1 TABLET, [...] (Lasix)Indications: Chronic diastolic CHF (congestive heart failure) ([facility]) Take 2 Tablets by mouth in the morning. 180 Tablet 1 08/15/2023 Active Lisinopril 5 MG Oral Tablet (Prinivil)Indicatio ns:Chronic diastolic CHF (congestive heart failure) ([facility]) Take 1 Tablet by mouth in the morning. 90 Tablet 1 08/15/2023 Active Metoprolol Succinate ER 25 MG Oral Tablet Extended Release 24 Hour (Toprol XL)Indications:Cushion Sewer ino diastolic CHF (congestive heart failure) ([facility]) Take 1 Tablet by mouth [...] Oral Tablet (Coumadin)Indicatio ns:PAF (paroxysmal atrial fibrillation) ([facility]) Take 1 Tablet by mouth [...] as of this encounter (statuses as of 11/08/2023) Active Problems Problem Noted Date Diagnosed Date [...] fibrillation) 10/18/2018 Coronary artery disease invo lving [place] coronary artery without angina pectoris 01/07/2015 [facility] [...] as of this encounter (statuses as of 11/08/2023) Resolved Problems Problem Noted Date Diagnosed Date [...] as of this encounter (statuses as of 11/08/2023) Immunizations Name Administration Dates Next Due COVID-19 mRNA, LNP-s, No Pre serve, 2-Dose Series ([employer]) 11/26/2020,11/05/2020 Pneumococcal Conjugate Vacc, 13 Valent (Prevnar) [...] Nursing Notes * Tere Campa CMA - 11/08/2023 4:36 PM EDT Patient presents with bilateral seeping legs along with some swelling. I had Halley Sandoval PA-C take a look. Instructed to apply charlene boot to both lower legs. Pt was instructed to come back on Mondayfor a reassessment. Applied charlene, gauze roll and erasmo bandage to both legs. documented in this encounter Plan of Treatment Upcoming Encounters Date Type Department Care Team (Late st Contact Info) Description 11/10/2023 1:30 PM EDT Office Visit Cardiology, [address] [place] [address] Liss Herrera PA-C [address] [place] [address] 11/20/2023 5:20 PM EDT Anticoagulation Pharmacy Call Center [address] [place] [address] [facility] [address] [facility] [place] [address] 01/18/2024 1:30 PM EDT Office Visit Radiation Oncology, [facility] [address] [place] [address] Eros Faust MD [address] [facility] [place] [address] 02/13/2024 9:20 AM EDT Office Visit [place] [address] [place] [address] Jad Boone MD [facility] [address] [place] [address] 06/06/2024 9:30 AM EDT Office Visit Cardiology [address] [place] [address] Yas Mckinnon CRNP [address] [facility] [place] [address] Health Maintenance Due Date Last Done Comments [...] this encounter Medical Devices Implanted Type Area Steam Fitter Supervisor Device Identifier Shelf Expiration Date Model / Serial / Lot Connector Nerve 2mm 15mm - [id number] Implanted:Qty: 1 on 04/27/2023 [place] [facility] Face [employer] [id number] 12/24/2024 [id number] / / [id number] Alloderm 4x7 Thin 0.8-1.2 (28 Units) - [id number] - [id number] Implanted:Qty: 28 on 04/27/2023 by Dudley Hinojosa [place] [facility]: Face ABBVIE 12/18/2024 [id number] / [id number] / [id number] Sheeting Monisha 2x3in X.020in - [id number] Implanted:Qty: 1 on 04/27/2023 by Dudley Hinojosa [place] [facility] [place]: Ear [employer] 09/25/2024 23-700-20 / / [id number] documented as of this encounter Advance Directives Documents on File Type Date Recorded 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
--- OUTSIDE RECORDS SUMMARY | 2024-04-25 23:58 | External Medical Summary ---
Author Name Unknown Address Unknown Organization [facility] - [address] [place] [address] Laboratory Report Ordering Provider Test Date Status FRANCIE ESCOBEDO 11/17/2023 06:33:00 Final Observation Date Value Abnormality Reference (Units ) Status BUN 11/17/2023 06:33:00 26 Above high normal 6-20 (mg/dL) Final Creatinine 11/17/2023 06:33:00 1.0 0.6-1.2 (mg/dL) Final Glomerular filtration rate/1.73 sq M.predicted [Volume Rate/Area] in Serum, Plasma or Blood by Creatinine-based formula (CKD-EPI) 11/17/2023 06:33:00 79 >=60 (mL/min) Final eGFR is calculated based on the CKD-EPI 2020 equation Sodium 11/17/2023 06:33:00 139 135-146 (m mol/L) Final Potassium 11/17/2023 06:33:00 4.4 3.5-5.1 (m mol/L) Final Cl 11/17/2023 06:33:00 102 98-107 (mm ol/L) Final CO2 11/17/2023 06:33:00 27 22-32 (mmo l/L) Final Anion gap 11/17/2023 06:33:00 10 7-15 (mmol /L) Final Glucose 11/17/2023 06:33:00 93 70-120 (mg /dL) Final Calcium 11/17/2023 06:33:00 9.3 8.4-10.2 ( mg/dL) Final Performing Location [facility] - [address] [place] [address]
--- OUTSIDE RECORDS SUMMARY | 2024-04-25 23:58 | External Medical Summary | Summary of Care ---
Author Name Unknown Organization [facility] Address [address] [place] [address] Phone [phone] Care Team Providers Care Nail Machine Operator Name Role Phone Jad Boone MD Primary Care Provider Reason for Visit * Reason Comments Wound Recheck Encounter Details Date Type Department Care Team (Late st Contact Info) Description 11/13/2023 10:20 AM EDT Nurse Only Ancillary, [facility] [address] [place] [address] [phone] [place], Nurse, RN [address] [place] [address] Wound Recheck Allergies Active Allergy Reactions Criticality Noted Date Comments Bee Venom Hives High 03/14/2017 documented as of this encounter (statuses as of 11/13/2023) Medications Medication Sig Dispensed Refills Start Date End Date Status Omeprazole 20 MG Oral Capsule Delayed Release (PriLOSEC) Take 1 Capsule by mouth in the morning. 90 Capsule 1 11/15/2022 Active Vitamin D3 1.25 MG (08491 UT) Oral Capsule Take 1 Capsule by mouth once a week. 12 Capsule 3 01/30/2023 Active Additional Information Patient taking differently:50,000 Units Oral QWEEK,Every Monday, Reported on 05/18/2023 Atorvastatin Calcium 20 MG Oral Tablet (Lipitor)Indicatio ns:Coronary artery disease involving redding coronary artery of redding heart without angina pectoris TAKE 1 TABLET, [...] diastolic CHF (congestive heart failure) ([facility]) Take 2 Tablets by mouth in the morning. 180 Tablet 1 08/15/2023 Active Metoprolol Succinate ER 25 MG Oral Tablet Extended Release 24 Hour (Toprol XL)Indications:Chr onic diastolic CHF (congestive heart failure) ([facility]) Take 1 Tablet by mouth [...] (Coumadin)Indicati ons:PAF (paroxysmal atrial fibrillation) ([facility]) Take 1 Tablet by mouth every evening. 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 Wrapped with rolled gauze and coban. Pt tolerated well. Confirmed wraps were not too tight or constricting. PCP advised f/u for removal/eval on . Pt aware. documented in this encounter Nursing Notes * Kylie Resendiz CMA - 11/13/2023 10:34 AM EDT Chief Complaint Patient presents with Wound Recheck Pt presented to clinic today for recheck and BL unna boot removal. Both wraps were loose and starting to fall down. Wraps removed and revealed increased amts of drainage. There is an area on both LE that have increased redness and drainage. Evaluated by Dr. Boone who advised reapplication of BLunna boots. Pt went home to take a shower and will be back today at 130 pm. documented in this encounter Plan of Treatment Upcoming Encounters Date Type Department Care Team (Late st Contact Info) Description 11/13/2023 3:00 PM EDT Telemedicine Otolaryngology/Head & Neck/Facial Plastic Surgery [address] [place] [address] Gurvinder Garcia MD [address] [place] [address] Arrived 11/16/2023 9:40 AM EDT Nurse Only Ancillary, [place]b [address] [place] [address] Kb, Nurse, RN [address] [place] [address] 11/20/2023 5:20 PM EDT Anticoagulation Pharmacy Call Center [phone] [place] [address] Ccps, [facility] [address] [facility] [place] [address] 11/21/2023 8:15 AM EDT [address] [address] 11/21/2023 10:45 AM EDT Appointment [facility] [address] [facility] [address] 01/18/2024 1:30 PM EDT Office Visit Radiation Oncology, [facility] [address] [place], [place] [address] Eros Faust MD [address] [place] [address] 02/13/2024 9:20 AM EDT Office Visit [place] [address] [place] [address] Jad Boone MD [address] [facility] [address] [place] [address] 06/06/2024 9:30 AM EDT Office Visit Cardiology, [place] [address] [facility] [place] [address] Yas Mckinnon CRNP 400 [facility] [place] [address] Health Maintenance Due Date Last Done Comments [...] this encounter Medical Devices Implanted Type Area Public Safety Officer Device Identifier Shelf Expiration Date Model / Serial / Lot Connector Nerve 2mm 15mm - [id number] Implanted:Qty: 1 on 04/27/2023 by Dudley Hinojosa MD at [place] [facility] Left: Face [employer] [id number] 12/24/2024 [id number] / / [id number] Alloderm 4x7 Thin 0.8-1.2 (28 Units) - [id number] - [id number] Implanted:Qty: 28 on 04/27/2023 by Dudley Hinojosa MD at [place] [facility] Left: Face ABBVIE 12/18/2024 [id number] / [id number] / [id number] Sheeting Monisha 2x3in X.020in - [id number] Implanted:Qty: 1 on 04/27/2023 by Dudley Hinojosa MD at [place] [facility] Left: Ear [employer] 09/25/2024 23-700-20 / / [id number] documented as of this encounter Visit Diagnoses Diagnosis Other specified peripheral vascular diseases (HCC)- Primary documented in this encounter Advance Directives Documents on File Type Date Recorded 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 Communication Brody Varela Adult Child Power of Director [facility] Care Teams Nail Machine Operator Relationship Specialty Start Date End Date Jad Boone MD [address] [place] [address] [place] [address] PCP - General Family Medicine 09/20/23 documented as of this encounter
--- OUTSIDE RECORDS SUMMARY | 2024-04-25 23:59 | External Medical Summary | Summary of Care ---
Author Name Unknown Organization [facility] Address [address] [facility] [place] [address] Phone [phone] Care Team Providers Care Traffic Supervisor Name Role Phone Jad Boone MD Primary Care Provider Reason for Visit * Reason Comments Dosage Adjustment Via Phone (anticoag Cl inic) Encounter Details Date Type Department Care Team (Latest Contact Info) Description 11/06/2023 5:20 PM EDT Anticoagulation Pharmacy Call Center [phone] [place] [address] [facility] [address] [place] [address] PAF (paroxysmal atrial fibrillation) ([facility])* Allergies Active Allergy Reactions Criticality Noted Date Comments Bee Venom Hives High 03/14/2017 documented as of this encounter (statuses as of 11/06/2023) Medications Medication Sig Dispensed Refills Start Date End Date Status Omeprazole 20 MG Oral Capsule Delayed Release (PriLOSEC) Take 1 Capsule by mouth in the morning. 90 Capsule 1 11/15/2022 Active Vitamin D3 1.25 MG (48020 UT) Oral Capsule Take 1 Capsule by mouth once a week. 12 Capsule 3 01/30/2023 Active Additional Information Patient taking differently:50,000 Units Oral QWEEK,Every Monday, Reported on 05/18/2023 Atorvastatin Calcium 20 MG Oral Tablet (Lipitor)Indication s:Coronary artery disease involving nooksack coronary artery of nooksack heart without angina pectoris TAKE 1 TABLET, [...] ns:Chronic diastolic CHF (congestive heart failure) ([facility]) Take 1 Tablet by mouth in the morning. 90 Tablet 1 08/15/2023 Active Metoprolol Succinate ER 25 MG Oral Tablet Extended Release 24 Hour (Toprol XL)Indications:Hose Sprayer ino diastolic CHF (congestive heart failure) ([facility]) Take 1 Tablet by mouth in the [...] Tablet (Coumadin)Indicatio ns:PAF (paroxysmal atrial fibrillation) ([facility]) Take 1 Tablet by mouth every evening. 8: 10 mg; Otherwise 5 mg every Tue, Wed, Fri; 7.5 mg all other days and as directed by [facility] Pharmacy 100 Tablet 1 10/04/2023 Active guaiFENesin 400 MG Oral TabletIndications:S inus congestion Take 1 Tablet by mouth every 4 hours as needed (cough or sinus drainage). 100 Tablet 0 10/04/2023 Active documented as of this encounter (statuses as of 11/06/2023) Active Problems Problem Noted Date Diagnosed Date [...] fibrillation) 10/18/2018 Coronary artery disease invo lving nooksack coronary artery without angina pectoris 01/07/2015 snf [...] as of this encounter (statuses as of 11/06/2023) Resolved Problems Problem Noted Date Diagnosed Date [...] as of this encounter (statuses as of 11/06/2023) Immunizations Name Administration Dates Next Due COVID-19 mRNA, LNP-s, No Pre serve, 2-Dose Series ([employer]) 11/26/2020,11/05/2020 Pneumococcal Conjugate Vacc, 13 Valent (Prevnar) [...] of this encounter Progress Notes * Domonique Bonilla, specialty sales consultant - 11/06/2023 10:34 AM EDT Contacts Type Contact Phone/Fax 11/06/2023 10:27 AM EDT Phone (Outgoing) Stephen Varela (Self) [phone] (H) Left Message Subjective Patient Findings Negatives: Signs/symptoms [...] as noted by Pharmacist: Yes ARMANDO Rascon 11/06/2023, 10:34 AM * Jose Munoz PHARM Tech - 11/06/2023 10:32 AM EDT Contacts Type Contact Phone/Fax 11/06/2023 10:27 AM EDT Phone (Outgoing) Avery Stephen Singh (Self) [phone] (H) Left Message Subjective Advised patient to contact Anticoagulation Clinic if any unusual bruising or bleeding, recent illness, changes in medication, or questions/concerns. PT/INR results, Coumadin dose instructions, and next PT/INR date communicated as noted by Pharmacist: Yes JOSE MUNOZ specialty sales consultant 11/06/2023, 10:32 AM * Alyson Salinas [facility] - 11/06/2023 10:11 AM EDT Coumadin Clinic (region specific) Objective Current Warfarin Dose As of 11/06/2023 Warfarin maintenance plan: 5 mg (1 mg x 5) every Tue, Wed, Fri; 7.5 mg (1 mg x 7.5) all other days INR Result As of 11/06/2023 INR goal: 2.0-3.0 INR used for dosin.1 (11/06/2023) Assessment & Plan Warfarin Plan As of 11/06/2023 Full warfarin instructions: 5 mg every Tue, Wed, Fri; 7.5 mg all other days No change documented: Alyson Salinas RPh Next INR check: 11/20/2023 Repeat PT/INR in 2 week(s) Weekly dose: not changed Additional Dosing Information: Description Addy pt started multivitamin around beginning october Tech to contact patient with dose instructions as noted. Alyson Salinas RPh 11/06/2023, 10:11 AM documented in this encounter Plan of Treatment Upcoming Encounters Date Type Department Care Team (Late st Contact Info) Description 11/08/2023 1:45 PM EDT Imaging Radiology, [address] [place] [address] 01/18/2024 1:30 PM EDT Office Visit Radiation Oncology, [facility] [address] [place] [address] Eros Faust MD 400 [place] [place] [address] 02/13/2024 9:20 AM EDT Office Visit [place] [address] [address] [place] [address] Jad Boone MD [facility] [address] [place] [address] 06/06/2024 9:30 AM EDT [facility] [address] [facility] [place] [address] Yas Mckinnon CRNP 400 [place] [address] Health Maintenance Due Date Last Done Comments [...] this encounter Medical Devices Implanted Type Area Associate Professor Of Musicology Device Identifier Shelf Expiration Date Model / Serial / Lot Connector Nerve 2mm 15mm - [id number] Implanted:Qty: 1 on 04/27/2023 by Dudley Hinojosa MD at [place] [facility] Left: Face [employer] [id number] 12/24/2024 [id number] / / [id number] Alloderm 4x7 Thin 0.8-1.2 (28 Units) - [id number] - [id number] Implanted:Qty: 28 on 04/27/2023 by Dudley Hinojosa MD at [place] [facility] Left: Face ABBVIE 12/18/2024 [id number] / [id number] / [id number] Sheeting Monisha 2x3in X.020in - [id number] Implanted:Qty: 1 on 04/27/2023 by Dudley Hinojosa MD at [place] [facility] Left: Ear [employer] 09/25/2024 23-700-20 / / [id number] documented as of this encounter Visit Diagnoses Diagnosis PAF (paroxysmal atrial fibrillation) (HCC)- Primary Atrial fibrillation documented in this encounter Advance Directives Documents on File Type Date Recorded 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
--- OUTSIDE RECORDS SUMMARY | 2024-04-25 23:59 | External Medical Summary | Summary of Care ---
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 Lesion of lower extremity Procedures CT TEMPORAL BONES WO CONTRAST Gurvinder Garcia MD [address] [place] [address] Referral ID Status Reason Start Date Expiration Date V isits Requested Visits Authorized [id number] Pending Review 09/29/[phone] Encounter Details Date Type Department Care Team (Latest Contact Info) Description 11/02/2023 9:36 AM EDT - 11/02/2023 11:59 PM EDT Hospital Encounter Radiology, [address] [id number] Arrived Discharge Disposition: Home - Self Care Allergies Active Allergy Reactions Criticality Noted Date Comments Bee Venom Hives High 03/14/2017 documented as of this encounter (statuses as of 11/03/2023) Medications Medication Sig Dispensed Refills Start Date End Date Status Omeprazole 20 MG Oral Capsule Delayed Release (PriLOSEC) Take 1 Capsule by mouth in the morning. 90 Capsule 1 11/15/2022 Active Vitamin D3 1.25 MG (89807 UT) Oral Capsule Take 1 Capsule by mouth once a week. 12 Capsule 3 01/30/2023 Active Additional Information Patient taking differently:50,000 Units Oral QWEEK,Every Monday, Reported on 05/18/2023 Atorvastatin Calcium 20 MG Oral Tablet (Lipitor)Indication s:Coronary artery disease involving eagle coronary artery of eagle heart without angina pectoris TAKE 1 TABLET, [...] Oral Tablet Extended Release 24 Hour (Toprol XL)Indications:Public Affairs Director ino diastolic CHF (congestive heart failure) (HCC) [...] all other days and as directed by [facility] Pharmacy 100 Tablet 1 10/04/2023 Active guaiFENesin 400 MG Oral TabletIndications:S inus congestion Take 1 Tablet by mouth every 4 hours as needed (cough or sinus drainage). 100 Tablet 0 10/04/2023 Active documented as of this encounter (statuses as of 11/03/2023) Active Problems Problem Noted Date Diagnosed Date [...] fibrillation) 10/18/2018 Coronary artery disease invo lving eagle coronary artery without angina pectoris 01/07/2015 [facility] [...] as of this encounter (statuses as of 11/03/2023) Resolved Problems Problem Noted Date Diagnosed Date [...] as of this encounter (statuses as of 11/03/2023) Immunizations Name Administration Dates Next Due COVID-19 [...] Care Team (Late st Contact Info) Description 11/06/2023 5:20 PM EDT Anticoagulation Pharmacy Call Center WB [phone] [facility] [place] [address] [facility] [address] [facility] [place] [address] 11/08/2023 1:45 PM EDT Imaging Radiology, [address] [place] [address] 01/18/2024 1:30 PM EDT Office Visit Radiation Oncology, [facility] [address] [facility] [address] Eros Faust MD [address] [facility] [place] [address] 02/13/2024 9:20 AM EDT Office Visit [place] [address] [address] [place] [address] Jad Boone MD [address] [facility] [address] [place] [address] 06/06/2024 9:30 AM EDT [facility] [address] [place] [address] Yas Mckinnon CRNP [address] [facility] [place] [address] Pending Results Name Type Priority Associated Diagnoses Date /Time CT TEMPORAL BONES WO CONTRAST Medical Imaging Routine Squamous cell carcinoma of face Mass of left parotid gland S/P flap graft 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 [place]: Face [employer] [id number] 12/24/2024 [id number] / / [id number] Alloderm 4x7 Thin 0.8-1.2 (28 Units) - [id number] - [id number] Implanted:Qty: 28 on 04/27/2023 by Dudley Hinojosa MD [place] [facility] Left: Face ABBVIE 12/18/2024 [id number] / [id number] / [id number] Sheeting Monisha 2x3in X.020in - [id number] Implanted:Qty: 1 on 04/27/2023 by Dudley Hinojosa MD [place] 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 Acquired stenosis of external ear canal unspecified as to cause Lesion of lower extremity Unspecified disorder of skin and subcutaneous tissue documented in this encounter Advance Directives Documents on File Type Date Recorded 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
--- OUTSIDE RECORDS SUMMARY | 2024-04-25 23:59 | External Medical Summary | Summary of Care ---
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 [address] [place] [address] Referral ID Status Reason Start Date Expiration Date Visits Requested Visits Authorized [id number] Authorized Specialty Services Required 11/08/2023 999 999 Question Answer Referral Priority Within 3 days (urgent) Where should this appointment be scheduled? ising Reason for Referral Head/Neck/Cancer Conditions Specific Condition: Head/Neck Comments Follow up parotic cancer Encounter Details Date Type Department Care Team (Late st Contact Info) Description 11/08/2023 Telephone [facility], [address] [place] [address] [phone] Jad Boone MD [address] [facility] [address] [place] [address] [phone] Allergies Active Allergy Reactions Criticality Noted Date Comments Bee Venom Hives High 03/14/2017 documented as of this encounter (statuses as of 11/08/2023) Medications Medication Sig Dispensed Refills Start Date End Date Status Omeprazole 20 MG Oral Capsule Delayed Release (PriLOSEC) Take 1 Capsule by mouth in the morning. 90 Capsule 1 11/15/2022 Active Vitamin D3 1.25 MG (55914 UT) Oral Capsule Take 1 Capsule by mouth once a week. 12 Capsule 3 01/30/2023 Active Additional Information Patient taking differently:50,000 Units Oral QWEEK,Every Monday, Reported on 05/18/2023 Atorvastatin Calcium 20 MG Oral Tablet (Lipitor)Indication s:Coronary artery disease involving [place] coronary artery of [place] heart without angina pectoris TAKE 1 TABLET, [...] Oral Tablet Extended Release 24 Hour (Toprol XL)Indications:Trial Court Judge ino diastolic CHF (congestive heart failure) (HCC) [...] other days and as directed by [facility] 100 Tablet 1 10/04/2023 [...] fibrillation) 10/18/2018 Coronary artery disease invo lving [place] coronary artery without angina pectoris 01/07/2015 intermodal [...] Boone MD - 11/08/2023 1:31 PM EDT Raw Stock Dyeing Machine Tender reports worsening ear symptoms. Will request ENT review again. Jad Boone MD 11/08/2023 documented in this encounter Plan of Treatment Upcoming Encounters Date Type Department Care Team (Late st Contact Info) Description 11/08/2023 3:20 PM EDT Nurse Only Ancillary, [place] [place] [address] [place], Nurse, RN [address] [place] [address] 11/10/2023 1:30 PM EDT Office Visit [facility] [address] [place] [address] Liss Herrera PA-C [address] [place] [address] 11/20/2023 5:20 PM EDT Anticoagulation Pharmacy Call Center [place] [address]60 [facility] [place] [address] [facility] 58 60 [facility] [place] [address] 01/18/2024 1:30 PM EDT Office Visit Radiation Oncology, [facility] [address] [place] [address] Eros Faust MD [address] [place] [address] 02/13/2024 9:20 AM EDT Office Visit Family [facility], [place] [address] [place] [address] Jad Boone MD [address] [place] [address] 06/06/2024 9:30 AM EDT Office Visit Cardiology, [place] 400 [facility] [place] [address] Yas Mckinnon CRNP [address] [place] [address] Scheduled Referrals Name Type Priority Associated Diagnoses [...] this encounter Medical Devices Implanted Type Area Pocketbook Maker Device Identifier Shelf Expiration Date Model / Serial / Lot Connector Nerve 2mm 15mm - [id number] Implanted:Qty: 1 on 04/27/2023 by Dudley Hinojosa [place] [facility] [place]: Face [employer] [id number] 12/24/2024 [id number] / / [id number] Alloderm 4x7 Thin 0.8-1.2 (28 Units) - [id number] - [id number] Implanted:Qty: 28 on 04/27/2023 by Dudley Hinojosa MD [place] [facility] [place]: Face ABBVIE 12/18/2024 [id number] / [id number] / [id number] Sheeting Monisha 2x3in X.020in - [id number] Implanted:Qty: 1 on 04/27/2023 by Dudley Hinojosa MD [place] 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
--- OUTSIDE RECORDS SUMMARY | 2024-04-25 23:59 | External Medical Summary | Summary of Care ---
Author Name Unknown Organization [facility] Address [address] [facility] [place] [address] Phone [phone] Care Team Providers Care Insurance Office Supervisor Name Role Phone Jad Boone MD Primary Care Provider Reason for Visit * Reason Onset Date Comments Update 08/07/2023 Encounter Created in Error 08/07/2023 Encounter Details Date Type Department Care Team (Late st Contact Info) Description 08/07/2023 Telephone Pharmacy Call Center [address] [place] [address] [facility] 58 [address] [place] [address] Update; Encounter Created in Error Allergies Active Allergy Reactions Criticality Noted Date Comments Bee Venom Hives High 03/14/2017 documented as of this encounter (statuses as of 11/06/2023) Medications Medication Sig Dispensed Refills Start Date End Date Status Omeprazole 20 MG Oral Capsule Delayed Release (PriLOSEC) Take 1 Capsule by mouth in the morning. 90 Capsule 1 11/15/2022 Active Vitamin D3 1.25 MG (14794 UT) Oral Capsule Take 1 Capsule by mouth once a week. 12 Capsule 3 01/30/2023 Active Additional Information Patient taking differently:50,000 Units Oral QWEEK,Every Monday, Reported on 05/18/2023 Atorvastatin Calcium 20 MG Oral Tablet (Lipitor)Indication s:Coronary artery disease involving enterprise coronary artery of enterprise heart without angina pectoris TAKE 1 TABLET, BY MOUTH, IN THE MORNING. 90 Tablet 1 03/04/2023 Active Acetaminophen 325 MG Oral Tablet (Tylenol) Take 2 Tablets by mouth every 6 hours as needed for Pain, Mild. 30 Tablet 0 04/03/2023 Active Antifungal Clotrimazole 1 % External Cream 0 05/01/2023 Active Multivitamin Adult Oral Tablet Take by mouth every evening. 0 Active documented as of this encounter (statuses [...] fibrillation) 10/18/2018 Coronary artery disease invo lving enterprise coronary artery without angina pectoris 01/07/2015 intermediate [...] encounter Miscellaneous Notes * Telephone Encounter - Cori Moya, aeronautical test engineer - 08/07/2023 3:33 PM EST Created in error documented in this encounter Plan of Treatment Upcoming Encounters Date Type Department Care Team (Late st Contact Info) Description 11/08/2023 1:45 PM EDT Imaging Radiology, [place] [address] [place] [address] 11/20/2023 5:20 PM EDT Anticoagulation Pharmacy Call Center 58[address]60 [facility] [place] [address] [facility] [address] [facility] [address] 01/18/2024 1:30 PM EDT Office Visit Radiation Oncology, [facility] [address] [place] [address] Eros Faust MD [address] [place] [address] 02/13/2024 9:20 AM EDT Office Visit Family [place] [address] [place] [address] Jad Boone MD [facility] [address] [address] 06/06/2024 9:30 AM EDT Office Visit Cardiology, [place] [address] [place] [address] Yas Mckinnon CRNP [address] [place] [address] Health Maintenance Due Date Last Done Comments [...] this encounter Medical Devices Implanted Type Area Patcher Device Identifier Shelf Expiration Date Model / Serial / Lot Connector Nerve 2mm 15mm - [id number] Implanted:Qty: 1 on 04/27/2023 by Dudley Hinojosa MD [place] [facility] [place] Left: Face [employer] [id number] 12/24/2024 [id number] / / [id number] Alloderm 4x7 Thin 0.8-1.2 (28 Units) - [id number] - [id number] Implanted:Qty: 28 on 04/27/2023 by Dudley Hinojosa MD at [place] [facility] [place] Left: Face ABBVIE 12/18/2024 [id number] / [id number] / [id number] Sheeting Monisha 2x3in X.020in - [id number] Implanted:Qty: 1 on 04/27/2023 by Dudley Hinojosa MD at [place] [facility] [place] Left: Ear [employer] 09/25/2024 23-700-20 / / [id number] documented as of this encounter Advance Directives Documents on File Type Date Recorded Patient Table Maker Expl anation POLST 04/26/2023 [place] OR [facility] FOR LIFE-SUSTAINING TREATMENT Latest Code Status on [...] Communication Brody Avery Adult Child Power of Access Service Representative Care Teams Insurance Office Supervisor Relationship Specialty Start Date End Date Jad Boone MD [address] [facility] [address] [place] [address] PCP - General Family Medicine 09/20/23 documented as of this encounter
--- OUTSIDE RECORDS SUMMARY | 2024-04-25 23:59 | External Medical Summary | Summary of Care ---
Author Name Unknown Organization [facility] Address [address] [place] [address] Phone [phone] Care Team Providers Care Drafter Electromechanical Name Role Phone Jad Boone MD Primary Care Provider Reason for Visit * Reason Onset Date Comments Test Results 11/07/2023 Unexpected or In determinate Result Encounter Details Date Type Department Care Team (Late st Contact Info) Description 11/07/2023 Telephone Laboratory, [place] [address] [place] [address] Gurvinder Garcia MD [address] [place] [address] Test Results (Unexpected or Indeterminate ... Allergies Active Allergy Reactions Criticality Noted Date Comments Bee Venom Hives High 03/14/2017 documented as of this encounter (statuses as of 11/07/2023) Medications Medication Sig Dispensed Refills Start Date End Date Status Omeprazole 20 MG Oral Capsule Delayed Release (PriLOSEC) Take 1 Capsule by mouth in the morning. 90 Capsule 1 11/15/2022 Active Vitamin D3 1.25 MG (02525 UT) Oral Capsule Take 1 Capsule by mouth once a week. 12 Capsule 3 01/30/2023 Active Additional Information Patient taking differently:50,000 Units Oral QWEEK,Every Monday, Reported on 05/18/2023 Atorvastatin Calcium 20 MG Oral Tablet (Lipitor)Indication s:Coronary artery disease involving [place] coronary artery [...] (Lasix)Indications: Chronic diastolic CHF (congestive heart failure) ([facility]) Take 2 Tablets by mouth in the morning. 180 Tablet 1 08/15/2023 Active Lisinopril 5 MG Oral Tablet (Prinivil)Indicatio ns:Chronic diastolic CHF (congestive heart failure) ([facility]) Take 1 Tablet by mouth in the morning. 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 8: 10 mg; Otherwise 5 mg every e, Wed, Mon; 7.5 mg all other days and as directed by [facility] 100 Tablet 1 10/04/2023 Active guaiFENesin 400 MG Oral TabletIndications:S inus congestion Take 1 Tablet by mouth every 4 hours as needed (cough or sinus drainage). 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 0 05/01/2014 Overview: ICD-10 update of inactive term Heart failure, systolic, due to CAD 08/28/2012 Overview: ECHO 2011 - Segmental wall abnormality, severe hypokinesis of anterior septum, anterior wall, apex, distal inferior septum, distal inferior wall, and distal posterior wall EF 33% Mass of left parotid gland documented as of this encounter (statuses as of 11/07/2023) Resolved Problems Problem Noted Date Diagnosed Date [...] as of this encounter (statuses as of 11/07/2023) Immunizations Name Administration Dates Next Due COVID-19 [...] encounter Miscellaneous Notes * Telephone Encounter - Colleen Chacko PBT - 11/07/2023 12:25 PM EDT Hello- The radiologist discovered an unexpected or indeterminate finding on Stephen Varela ([id number]) andasks that you review the following report. Study Type: CT TEMPORAL BONES WO CONTRAST Date of Study: 11/02/2023 IMPRESSION 1. Exposed bone along the lateral aspect [...] left pre-auricular region. 6. Normal right temporal bone. Please respond to this encounter to acknowledge receipt of this message and take responsibility to ensure this report is reviewed. Thank you, NATHANIEL Lee Client Service [facility] documented in this encounter Plan of Treatment Upcoming Encounters Date Type Department Care Team (Late st Contact Info) Description 11/08/2023 1:45 PM EDT Imaging Radiology, [place] [address] [place] [place] [id number] 11/10/2023 1:30 PM EDT Office Visit Cardiology, [place] [address] [place] [address] Liss Herrera PA-C [address] [place] [address] 11/20/2023 5:20 PM EDT Anticoagulation Pharmacy Call Center [address]60 [facility] [place] [address] [facility] 58 60 [facility] [place] [address] 01/18/2024 1:30 PM EDT Office Visit Radiation Oncology, [facility] [address] [place] [address] Eros Faust MD [address] [place] [address] 02/13/2024 9:20 AM EDT Office Visit Family [facility] [address] [place] [address] Jad Boone MD [address] [place] [address] 06/06/2024 9:30 AM EDT Office Visit Cardiology, [place] [address] [place] [address] Yas Mckinnon CRNP [address] [place] [address] Health Maintenance Due Date Last Done Comments [...] this encounter Medical Devices Implanted Type Area Microwave Technician Device Identifier Shelf Expiration Date Model / Serial / Lot Connector Nerve 2mm 15mm - [id number] Implanted:Qty: 1 on 04/27/2023 by Dudley Hinojosa MD [place] [facility] [place] Left: Face [employer] [id number] 12/24/2024 [id number] / / [id number] Alloderm 4x7 Thin 0.8-1.2 (28 Units) - [id number] - [id number] Implanted:Qty: 28 on 04/27/2023 by Dudley Hinojosa MD at [place] [facility] [place] Left: Face ABBVIE 12/18/2024 [id number] / [id number] / [id number] Sheeting Monisha 2x3in X.020in - [id number] Implanted:Qty: 1 on 04/27/2023 by Dudley Hinojosa MD at [place] [facility] [place] Left: Ear [employer] 09/25/2024 23-700-20 / / [id number] documented as of this encounter Advance Directives Documents on File Type Date Recorded Patient Radiological Equipment Specialist Expl anation POLST 04/26/2023 [place] OR [facility]-SUSTAINING TREATMENT Latest Code [...] Agent [facility] Communication [facility] Adult Child Power of Supervisor Machine Setter Care Teams Drafter Electromechanical Relationship Specialty Start Date End Date Jad Boone MD [address] [place] [address] [place] [address] PCP - General Family Medicine 09/20/23 documented as of this encounter
--- OUTSIDE RECORDS SUMMARY | 2024-04-25 23:59 | External Medical Summary ---
Author Name Unknown Address Unknown Organization K1F:[facility] - [address] [place] [address] Laboratory Report Ordering Provider Test Date Status CHERI CARTER 11/06/2023 06:02:00 Final Warfarin Therapy
INR: 2 .0-3.0 conventional anticoagulation
INR: 2.5- 3.5 high intensity anticoagulation Observation Date Value Abnormality Reference (Units ) Status PT 11/06/2023 06:02:00 23.8 Above high normal 11 .6-15.2 (seconds) Final INR 11/06/2023 06:02:00 2.1 Above high normal 0. 8-1.2 Final Performing Location [facility] - [address] [place] [address]
--- OUTSIDE RECORDS SUMMARY | 2024-04-25 23:59 | External Medical Summary | Summary of Care ---
Author Name Unknown Organization [facility] Address [address] [facility] [place] [address] Phone [phone] Care Team Providers Care Drywall Carrier Name Role Phone Jad Boone MD Primary Care Provider Reason for Visit * Reason Comments Dosage Adjustment Via Phone (anticoag Cl inic) Encounter Details Date Type Department Care Team (Latest Contact Info) Description 11/06/2023 5:20 PM EDT Anticoagulation Pharmacy Call Center [address] [place] [address] [facility] [address] [place] [address] PAF (paroxysmal atrial fibrillation) ([facility])* Allergies Active Allergy Reactions Criticality Noted Date Comments Bee Venom Hives High 03/14/2017 documented as of this encounter (statuses as of 11/06/2023) Medications Medication Sig Dispensed Refills Start Date End Date Status Omeprazole 20 MG Oral Capsule Delayed Release (PriLOSEC) Take 1 Capsule by mouth in the morning. 90 Capsule 1 11/15/2022 Active Vitamin D3 1.25 MG (36647 UT) Oral Capsule Take 1 Capsule by mouth once a week. 12 Capsule 3 01/30/2023 Active Additional Information Patient taking differently:50,000 Units Oral QWEEK,Every Monday, Reported on 05/18/2023 Atorvastatin Calcium 20 MG Oral Tablet (Lipitor)Indication s:Coronary artery disease involving douglas coronary artery of douglas heart without angina pectoris TAKE 1 TABLET, [...] (Prinivil)Indicatio ns:Chronic diastolic CHF (congestive heart failure) ([facility]) Take 1 Tablet by mouth in the morning. 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 8: 10 mg; Otherwise 5 mg every Tue, Wed, Fri; 7.5 mg all other days and as directed by [facility] Pharm[facility] 100 Tablet [...] fibrillation) 10/18/2018 Coronary artery disease invo lving douglas coronary artery without angina pectoris 01/07/2015 [facility] [...] mRNA, LNP-s, No Pre serve, 2-Dose Series (NASOFORM) 11/26/2020,11/05/2020 Pneumococcal Conjugate Vacc, 13 Valent (Prevnar) [...] this encounter Progress Notes * Domonique Bonilla, typesetters printer - 11/06/2023 10:34 AM EDT Contacts Type Contact Phone/Fax 11/06/2023 10:27 AM EDT Phone (Outgoing) Stephen Varela (Self) [phone] (H) Left Message Subjective Patient Findings Negatives: [...] EDT Phone (Outgoing) [place] Stephen Singh (Self) [phone] (H) Left Message Subjective Advised patient to contact Anticoagulation Clinic if any unusual bruising or bleeding, recent illness, changes in medication, or questions/concerns. PT/INR results, Coumadin dose instructions, and next PT/INR date communicated as noted by Pharmacist: Yes JOSE MUNOZ typesetters printer 11/06/2023, 10:32 AM * Alyson Salinas [facility] - 11/06/2023 10:11 AM EDT Coumadin [...] dose: not changed Additional Dosing Information: Description [place] pt started multivitamin around beginning october Tech to contact patient with dose instructions as noted. Alyson Salinas RPh 11/06/2023, 10:11 AM documented in this encounter Plan of Treatment Upcoming Encounters Date Type Department Care Team (Late st Contact Info) Description 11/08/2023 1:45 PM EDT Imaging Radiology, [address] [place] [address] 01/18/2024 1:30 PM EDT Office Visit Radiation Oncology, [facility] [address] [place] [address] Eros Faust MD 400 [facility] [place] [address] 02/13/2024 9:20 AM EDT Office Visit [place] [address] [address] [place] [address] Jad Boone MD [facility] [address] [place] [address] 06/06/2024 9:30 AM EDT [facility] 400 [facility] [place] [address] Yas Mckinnon CRNP 400 [facility] [address] Health Maintenance Due Date Last Done Comments [...] this encounter Medical Devices Implanted Type Area Dairy Inspector Device Identifier Shelf Expiration Date Model / Serial / Lot Connector Nerve 2mm 15mm - [id number] Implanted:Qty: 1 on 04/27/2023 by Dudley Hinojosa MD [place] [facility] [place]: Face [employer] [id number] 12/24/2024 [id number] / / [id number] Alloderm 4x7 Thin 0.8-1.2 (28 Units) - [id number] - [id number] Implanted:Qty: 28 on 04/27/2023 by Dudley Hinojosa MD [place] [facility] [place] Left: Face ABBVIE 12/18/2024 [id number] / [id number] / [id number] Sheeting Monisha 2x3in X.020in - [id number] Implanted:Qty: 1 on 04/27/2023 by Dudley Hinojosa MD [place] [facility] [place] Left: Ear [employer] 09/25/2024 23-700-20 / / [id number] documented as of this encounter Visit Diagnoses Diagnosis PAF (paroxysmal atrial fibrillation) (HCC)- Primary Atrial fibrillation documented in this encounter Advance Directives Documents on File Type Date Recorded Patient Hogshead Dumper Expl anation POLST 04/26/2023 [place] OR [facility] FOR LIFE-SUSTAINING TREATMENT Latest Code Status [...] Agents on File Name Relationship Healthcare Agent [facility] Adult Child Power of Internet Site Designer Care Teams Drywall Carrier Relationship Specialty Start Date End Date Jad Boone MD [address] [facility] [address] [place] [address] PCP - General Family Medicine 09/20/23 documented as of this encounter
--- OUTSIDE RECORDS SUMMARY | 2024-04-25 23:59 | External Medical Summary | Summary of Care ---
Author Name Unknown Organization [facility] Address [address] [place] [address] Phone [phone] Care Team Providers Care Licensing Director Name Role Phone Jad Boone MD Primary Care Provider Reason for Visit * Reason Onset Date Comments Test Results 11/07/2023 Unexpected or In determinate Result Encounter Details Date Type Department Care Team (Late st Contact Info) Description 11/07/2023 Telephone Laboratory, [facility] [address] [place] [address] Gurvinder Garcia MD [address] [place] [address] Test Results (Unexpected or Indeterminate [...] 1 11/15/2022 Active Vitamin D3 1.25 MG (84619 UT) Oral Capsule Take 1 Capsule by mouth once a week. 12 Capsule 3 01/30/2023 Active Additional Information Patient taking differently:50,000 Units Oral QWEEK,Every Monday, Reported on 05/18/2023 Atorvastatin Calcium 20 MG Oral Tablet (Lipitor)Indication s:Coronary artery disease involving chickahominy indian tribe coronary artery of chickahominy indian tribe heart without angina pectoris TAKE 1 TABLET, [...] (Lasix)Indications: Chronic diastolic CHF (congestive heart failure) ([facility]) Take 2 Tablets by mouth in the morning. 180 Tablet 1 08/15/2023 Active Lisinopril 5 MG Oral Tablet (Prinivil)Indicatio ns:Chronic diastolic CHF (congestive heart failure) ([facility]) Take 1 Tablet by mouth in the morning. 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 8: 10 mg; Otherwise 5 mg every e, Wed, Mon; 7.5 mg all other days and as directed by [facility] 100 Tablet 1 10/04/2023 [...] fibrillation) 10/18/2018 Coronary artery disease invo lving chickahominy indian tribe coronary artery without angina pectoris 01/07/2015 marine [...] unexpected or indeterminate finding on Stephen Varela ([id number]) andasks that you review the following report. [...] reviewed. Thank you, NATHANIEL Lee Client Service [facility] documented in this encounter Plan of Treatment Upcoming Encounters Date Type Department Care Team (Late st Contact Info) Description 11/08/2023 1:45 PM EDT Imaging Radiology, [place] [address] [address] [place] [id number] 11/10/2023 1:30 PM EDT Office Visit Cardiology, [place] [address] [place] [address] Liss Herrera PA-C [address] [place] [address] 11/20/2023 5:20 PM EDT Anticoagulation Pharmacy Call Center [phone] [facility] [place] [phone] [facility] [address] [facility] [place] [id number] 01/18/2024 1:30 PM EDT Office Visit Radiation Oncology, [facility] [address] [place] [address] Eros Faust MD [address] [place] [address] 02/13/2024 9:20 AM EDT Office Visit Family [facility] [address] [place] [address] Jad Boone MD [address] [place] [id number] 06/06/2024 9:30 AM EDT Office Visit Cardiology, [place] [address] [place] [address] Yas Mckinnon CRNP [address] [place] [address] Health Maintenance Due Date Last Done Comments [...] this encounter Medical Devices Implanted Type Area Hogshead Builder Device Identifier Shelf Expiration Date Model / Serial / Lot Connector Nerve 2mm 15mm - [id number] Implanted:Qty: 1 on 04/27/2023 by Dudley Hinojosa MD at OR [facility] Left: Face [employer] [id number] 12/24/2024 [id number] / / [id number] Alloderm 4x7 Thin 0.8-1.2 (28 Units) - [id number] - [id number] Implanted:Qty: 28 on 04/27/2023 by Dudley Hinojosa MD at OR [facility] Left: Face ABBVIE 12/18/2024 [id number] / [id number] / [id number] Sheeting Monisha 2x3in X.020in - [id number] Implanted:Qty: 1 on 04/27/2023 by Dudley Hinojosa MD at OR [facility] Left: Ear [employer] 09/25/2024 [id number] / / [id number] documented as of this encounter Advance Directives Documents on File Type Date Recorded Patient Color Printer Operator Expl anation POLST 04/26/2023 [place] [facility] FOR LIFE-SUSTAINING TREATMENT Latest Code [...] Name Relationship Healthcare Agent [facility] Adult Child Power of Keller Machine Operator Care Teams Licensing Director Relationship Specialty Start Date End Date Jad Boone MD [address] [address] [place] [address] PCP - General Family Medicine 09/20/23 documented as of this encounter
[2024-04-26 05:19] LABS: Base Excess VBG 3.2 mEq/L; HCO3 VBG 30 mmol/L; Oxygen Saturation VBG 72.8 %; PCO2 VBG 53 mmHg (38-50); PO2 VBG 43 mmHg; pH VBG 7.36 (7.36-7.41)
[2024-04-26 05:39] LABS: Hematocrit (blood only) 28.2 % (42.0-52.0); Hemoglobin 8.8 g/dl (14.0-18.0); Mean Corpuscular Hemoglobin 27.1 pg (25.0-34.0); Mean Corpuscular Hgb Conc 31.2 g/dL (32.0-36.0); Mean Corpuscular Volume 86.8 fL (80.0-100.0); Mean Platelet Volume 9.6 fL (9.4-12.4); Platelet Count 238 K/uL (130-400); RDW Coefficient of Variation 16.8 % (11.5-14.5); RDW Standard Deviation 53.3 fL (36.4-46.3); Red Blood Count 3.25 M/uL (4.70-6.10); White Blood Count 8.32 K/ul (4.8-10.8)
[2024-04-26 05:41] LABS: Calcium 9.3 mg/dl (8.6-10.3); Creatinine Clr Calc Pharmacy 62.4 ml/min; Est GFR (African American) 58.3 ml/min; Est GFR (Non-African American) 50.3 ml/min; Magnesium 1.9 mg/dl (1.7-2.4); Potassium 3.9 mmol/L (3.5-5.1)
[2024-04-26 05:49] LABS: INR 2.7 (0.9-1.1); Prothrombin Time 26.6 Seconds (9.0-12.0)
[2024-04-26 06:00] LABS: Ferritin 55.8 ng/ml (8-388)
[2024-04-26 06:46] LABS: Folate (Folic Acid),Ser orPlas > 22.30 ng/ml (>5.38)
[2024-04-26 06:47] LABS: Vitamin B12 372 pg/ml (180-914)
[2024-04-26] MEDS: PANTOprazole 40 MG TAB PO SCH (08:19)
[2024-04-26] MEDS: ATORVASTATIN 20 MG TAB PO SCH (08:19)
[2024-04-26] MEDS: IRON SUCROSE 200 MG in 0.9 % SODIUM CHLORIDE 100 ML IV ONE (08:25)
--- NOTE | 2024-04-26 08:37 | Electrocardiogram Report ---
Test Reason : Blood Pressure : */* mmHG Vent. Rate : 85 BPM Atrial Rate : * BPM P-R Int : * ms QRS Dur : 160 ms QT Int : 460 ms P-R-T Axes : * 128 -29 degrees QTcB Int : 547 ms Atrial fibrillation Right bundle branch block T wave abnormality, consider inferior ischemia Abnormal ECG No previous ECGs available Confirmed by Macario Feldman ([id number]) on 04/26/2024 8:37:10 AM Referred By: REFERRED SELF Confirmed By: Macario Feldman
--- NOTE | 2024-04-26 08:50 | Hospitalist Progress Note ---
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 Garcia who presents to ED 2/2 worsening SOB over the last 3-4 days. Acute hypoxic respiratory failure Acute on chronic decompensated diastolic CHF Pulmonary Edema Hypoxic, requiring hi gali, refusing bipap, full code Chest xray noting pleural effusions, pulm edema CT chest noting mod-large layering pleural effusions BNP 208 Echo pending IV Lasix 40mg BID, last in november with preserved EF, mod TR daily weights, I and O Pt refusing bipap, continue highflow for now Cardiology consulted appreciate recs Pulmonology consulted for layering pleural effusions, appreciate recs Supratherapeutic INR PAF hold warfarin was given 2.5mg vit K, pt reports some blood in sputum continue metoprolol, tele monitoring Iron Deficiency Anemia Hgb 9.4 to 8.8 anemia panel noting iron def anemia s/p IV Venofer on 04/26 Continue to monitor HTN: chronic, stable - pt on amlodipine, lisinopril HLD: chronic, stable - continue statin Hx of SCC of L parotid s/p resection, radiation, wound dehiscence and eventual reconstruction, 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 Hi-gali oxygen in nares AAO states he is still having the trouble breathing but doing his best with things. Has been refusing bipap. Discussion of full code status and refusal of bipap. Agreeable at this time to it should it be needed. Review of Systems Review of Systems: All systems reviewed & are unremarkable except as noted in Subjective Physical Exam Physical Exam: General: Alert, oriented. Resting comfortably with NC in nares Psych: Appropriate mood and affect Neuro: No gross deficits while sitting in bed HEENT: NC/AT, Hiflo cannula in nares CV: Irregular Resp: Breath sounds decreased bilaterally, no increased effort of breathing. Abdomen: Soft, nontender Extremities: edema in lower extremities bilaterally. Results & Data Results & Data Vital Signs (Past 12 Hours) Vital Signs Temp Pulse Pulse Resp BP BP Pulse Ox 04/26/24 08:21 91/34 L 04/26/24 07:19 100 H 04/26/24 07:14 36.3 C L 59 L 19 120/65 90 04/26/24 07:09 84 20 91 04/26/24 02:30 36.4 C L 64 16 142/72 H 95 04/26/24 02:07 84 18 94 04/25/24 23:09 66 18 90 04/25/24 22:50 66 04/25/24 22:30 36.6 C 65 22 136/69 93 04/25/24 21:19 66 04/25/24 21:19 04/25/24 21:19 36.6 C 76 22 146/73 H 91 04/25/24 21:10 67 18 94 04/25/24 20:50 04/25/24 20:50 36.6 C 76 22 146/73 H 91 Pulse Ox O2 Del Method O2 Del Method O2 Flow Rate O2 Flow Rate FiO2 04/26/24 08:21 04/26/24 07:19 04/26/24 07:14 High Flow Nasal Cannula 30 04/26/24 07:09 High Flow Nasal Cannula 30 70 04/26/24 02:30 High Flow Nasal Cannula 04/26/24 02:07 High Flow Nasal Cannula 30 70 04/25/24 23:09 High Flow Nasal Cannula 30 70 04/25/24 22:50 04/25/24 22:30 High Flow Nasal Cannula 04/25/24 21:19 04/25/24 21:19 High Flow Nasal Cannula 30 70 04/25/24 21:19 High Flow Nasal Cannula 30 70 04/25/24 21:10 High Flow Nasal Cannula 35 70 04/25/24 20:50 91 High Flow Nasal Cannula 30 04/25/24 20:50 High Flow Nasal Cannula Diagnostic Findings Chest X-Ray 04/25/24 16:15 XR chest 1V portable HISTORY: Dyspnea COMPARISON: None. FINDINGS: Rotated study. No pneumothorax. The heart is enlarged. There are low lung volumes. There is perihilar interstitial/vascular thickening consistent with pulmonary edema. There are small bilateral pleural effusions. No acute fractures identified. There are calcifications within the aortic knob. Left greater than right perihilar airspace opacities. IMPRESSION: 1. Cardiomegaly with moderate pulmonary edema and small bilateral pleural effusions. 2. Left greater than right perihilar airspace opacities. This likely represents asymmetric pulmonary edema. A superimposed pneumonia would be difficult to exclude. ACT 112: Negative or not required by law. Electronically signed by: Adal Aranda M.D. 04/25/2024 5:[address] 04/26/24 10:00 CT chest diagnostic wo con CT DOSE: 885.57 mGy.cm CLINICAL HISTORY: 78 years-old Male with hypoxia. Acute hypoxia TECHNIQUE: Multiaxial CT images of the chest were performed without contrast. A dose lowering technique was utilized adhering to the principles of ALARA. COMPARISON: None. FINDINGS: Limited exam secondary to positioning. No dominant thyroid nodule. Moderate cardiomegaly with trace pericardial effusion. Extensive coronary artery calcifications. Atherosclerosis of the aorta without aneurysm. Descending thoracic aortic tortuosity. Nonspecific mediastinal and hilar lymphadenopathy with subcarinal lymph nodes measuring up to 1.7 cm. Moderate to large layering pleural effusions. There is severe pulmonary emphysema. Intralobular septal thickening with multifocal multilobar distribution of patchy airspace consolidation, left greater than right. No pneumothorax identified. Limited evaluation of the lungs secondary to respiratory motion artifact. Biapical blebs/bulla formation. Central airways are fairly patent with mild tracheobronchial secretions. Probable underlying pulmonary arterial hypertension. There is a hyperdense 2.6 cm left adrenal gland lesion with Hounsfield unit of 61. Probable left renal cyst. Bilateral renal vascular calcifications. Mild generalized body wall edema. Degenerative changes of the spine and shoulders. The age-indeterminate burst fracture involving the T10 vertebral body without retropulsion. Age indeterminate 50% superior endplate impression deformity at T11 with 3 mm retropulsion. Comment kyphotic curvature centered at the T10 level. IMPRESSION: 1. Limited exam secondary to positioning. 2. Cardiomegaly with pulmonary edema and moderate to large layering pleural effusions with dependent bibasilar atelectasis. 3. Multifocal bilateral patchy airspace opacities may represent asymmetric alveolar pulmonary edema versus multifocal pneumonia. 4. Nonspecific mediastinal and hilar lymphadenopathy. 5. Hyperdense 2.6 cm left adrenal gland lesion, possibly a hemorrhagic adenoma. This lesion could be evaluated on follow-up. 6. Age-indeterminate severe T10 burst fracture without retropulsion and age- indeterminate T11 compression deformity with minimal retropulsion. Correlate with point tenderness. ACT 112: Negative or not required by law. Electronically signed by: Sebas Vicente M.D. 04/26/2024 11:11 AM
[2024-04-26] MEDS: METOPROLOL SUCC 25MG EXT REL TAB PO SCH (09:04)
[2024-04-26] MEDS: amLODIPine BESYLATE 5 MG TAB PO SCH (09:04)
[2024-04-26] MEDS: FUROSEMIDE 40 MG/4 ML VIAL IV SCH (09:04)
[2024-04-26] MEDS: lisinopril 10 MG TAB PO SCH (09:04)
--- NOTE | 2024-04-26 09:13 | Cardiology Consultation ---
Date of Consultation April 26, 2024 Assessment & Plan (1) Acute on chronic diastolic CHF (congestive heart failure): (2) Acute hypoxemic respiratory failure: (3) Supratherapeutic INR: Plan Assessment: 78 year old male with SCC of the Parotid presents with 3-4 days of worsening dyspnea with little exertion. Known history of Chronic diastolic HF, but reports no home diuretics for several weeks in the setting of multiple hospitalizations, home IV antibiotics and rehabilitation stay. Plan: Acute on Chronic diastolic CHF Acute Hypoxemic resp. failure Supratherapeutic INR -symptoms likely mutifactorial; however, patient demonstrates volume overload s/t absence of home diuretics and increased volume intake with IV antibiotics in the home setting. -Chest xray demonstrates moderate pulmonary edema and small bilateral plueral effusions. Also of note, left> right opacities. Sent for CT chest to exclude any superimposed infectious process. -Continue Furosemide 40mg IV BID -Strict I&O. Daily weights. -Strict 1500ml fluid restriction and low sodium 2GM or less. -Close monitoring of renal function -Goal serum K> 4.0 and Serum Mag > 2.0 -Echocardiogram obtained demonstrating preserved LVEF 60-65%, severely dilated left atrium, mild MR, moderate TR. Study was compared with most recent OP study at [facility] which shows no significant change. -Continue Hi-flow O2, titrate as appropriate. patient refused Bipap. -Continue GDMT with Toprol xl, Atorvastatin, Lisinopirl and amlodipine. -Close monitor of PT/INR. Case has been discussed with Dr. Arreola. Further recommendations regarding plan of care as per his assessment. I spent a total of 40 minutes on the date of service in preparation, delivery, documentation of the care provided to the patient excluding any time spent in the performance of separately billed services. NELIA Hanley [facility] Cardiology [facility] Supervising Physician Co-Signing Physician Notes I have personally performed a history and physical examination on the patient. I have reviewed the advance practitioner's documentation, and I agree with, and take responsibility for the plan of care. 78-year-old male with acute on chronic heart failure preserved ejection fraction and supratherapeutic INR.Echocardiogram this admission demonstrating preserved LV systolic function with evidence of moderate pulmonary hypertension. Findings unchanged compared to prior echocardiogram dated 11/21/2023. Recommend IV diuresis. Monitor fluid balance, daily weight, GFR, and electrolytes. INR 9.2 yesterday, down to 2.7 today after vitamin K. Recommend hold today's dose of warfarin and repeat INR in AM. Consider restarting next 24 to 48 hours. I spent a total of 30 minutes on the date of service in preparation, delivery, and documentation of the care provided to this patient, excluding any time spent in the performance of separately billed services. Sebastian Arreola DO, [facility] History of Present Illness Reason for Consultation: CHF Requesting Physician: Kami hospitalist Attending Physician: Chrissy Broderick MD History of Present Illness HPI: Patient is a 78 year-old male with PMHx significant for P-A-fib on Coumadin and Toprol xl, HFpEF, NYHA Class II, AV heart block (1st, 2nd, and 3rd noted on a zio in 2020), prediabetes, HTN, HLD, Advanced left preauricular SCC s/p radiation that presented to the ED with worsening dyspnea over the past 3-4 days. Denies any chest pain, pressure or palpitations. Denies any lower extremity swelling. Of note, patient has had multiple recent hospitalizations including [facility] January 2024 for wound dehiscence following left parotid surgery for SCC, subsequently had a PICC line placed and was on IV antibiotic therapy. He was hospitalized a few weeks later (02/14-02/20) at [facility] for a stroke work up. He was transitioned to IV meropenem and Daptomycin and discharged to [place]. Patient states that at some point between his hospitalizations and rehab stay that his furosemide was stopped. INR 9.2 on admission, repeat today 2.7. He report some blood tinged sputum. H/H 8.8/28.2 BNP 208 EKG on admission A-fib, Right BBB, non-specific T wave abnormality Rate 85bpm. This was compared with last EKG from [facility] 02/15/24, unchanged. Review of telemetry shows Atrial fibrillation, IVCD Chest x-ray 04/25/24: IMPRESSION: 1. Cardiomegaly with moderate pulmonary edema and small bilateral pleural effusions. 2. Left greater than right perihilar airspace opacities. This likely represents asymmetric pulmonary edema. A superimposed pneumonia would be difficult to exclude. -2919 cc fluid balance Allergies Allergy/AdvReac Type Severity Reaction Status Date / Time bee venom protein (honey bee) Allergy Unknown Verified 04/25/24 21:56 Home Medications Medication Instructions Recorded Confirmed Type amlodipine 10 mg tablet 10 mg PO DAILY 04/25/24 04/25/24 History atorvastatin 20 mg tablet 20 mg PO DAILY 04/25/24 04/25/24 History ergocalciferol (vitamin D2) 1,250 1,250 mcg PO MO 04/25/24 04/25/24 History mcg (50,000 unit) capsule (Vitamin D2) lisinopril 10 mg tablet 10 mg PO DAILY 04/25/24 04/25/24 History metoprolol succinate 25 mg 25 mg PO DAILY 04/25/24 04/25/24 History tablet,extended release 24 hr omeprazole 20 mg tablet,delayed 20 mg PO DAILY 04/25/24 04/25/24 History release warfarin 5 mg tablet 5 mg PO SUTUTHSA 04/25/24 04/25/24 History warfarin 5 mg tablet 7.5 mg PO MOWEFR 04/25/24 04/25/24 History Patient History Medical History (Updated 04/25/24 @ 20:31 by Jill Brown PA-C) Mild intermittent asthma PAF (paroxysmal atrial fibrillation) CAD (coronary artery disease) Squamous cell carcinoma of parotid Chronic CHF HTN (hypertension) HLD (hyperlipidemia) Surgical History (Updated 04/25/24 @ 19:50 by Jill Brown PA-C) Hx of fracture of hip Right s/p fixation Hx of tonsillectomy History of parotidectomy Left wide local excision, left parotidectomy, left neck dissection, submental island flap reconstruction, and STSG to the left ear canal on 04/27/23. - Final pathology pT2N0. Tumor board recommendation for adjuvant radiation, compelted July 2023. - Reconstruction of left wound dehiscence with temporalis flap, postauricular cervicofacial advancement flap, and skin grafting on 12/12/23. Concurrent meatoplasty, canalplasty, and skin grafting with Dr. Garcia. Social History (Updated 04/25/24 @ 20:29 by Jill Brown PA-C) Smoking Status: Former smoker Hx Alcohol Use: No Hx Substance Use: No Preferred Language: Frisian Communication Ability: Effective Alcoholism Worker Required: No Beliefs That Will Affect Care: None Current Living Situation: Personal Care Facility Other Information That Helps Us Care for You: No Feels Safe at Home: Yes Safety Concerns: Feels Safe At This Time Assistive Devices: Walker Review of Systems Review of Systems: All systems reviewed & are unremarkable except as noted in HPI & below Physical Exam Constitutional: + ill appearing, + thin and + frail appe aring; no acute distress ENMT: hx of extensive surgical intervention to the left parotid region due to SCC. Neck: normal visual inspection and trachea midline Respiratory: no respiratory distress, no labored breathing and no cough Auscultation: + diminished lung sounds and + wheezes (faint expiratory wheeze in upper lobes ); no crackles, no rales and no rhonchi Cardiovascular: Rate/Rhythm: + irregularly irregular Heart Sounds: normal S1 and normal S2; no murmur Vessels: dorsalis pedis pulses present; no JVD Extremities: no edema Skin: no rashes, warm and dry Psychiatric: Orientation: alert and oriented x 3 Affect: euthymic affect Results & Data Vital Signs (Past 12 Hours) Vital Signs Temp Pulse Pulse Resp BP BP Pulse Ox 04/26/24 08:57 132/64 04/26/24 08:21 91/34 L 04/26/24 07:19 100 H 04/26/24 07:14 36.3 C L 59 L 19 120/65 90 04/26/24 07:09 84 20 91 04/26/24 02:30 36.4 C L 64 16 142/72 H 95 04/26/24 02:07 84 18 94 04/25/24 23:09 66 18 90 04/25/24 22:50 66 04/25/24 22:30 36.6 C 65 22 136/69 93 04/25/24 21:19 66 04/25/24 21:19 04/25/24 21:19 36.6 C 76 22 146/73 H 91 04/25/24 21:10 67 18 94 O2 Del Method O2 Flow Rate FiO2 04/26/24 08:57 04/26/24 08:21 04/26/24 07:19 04/26/24 07:14 High Flow Nasal Cannula 30 04/26/24 07:09 High Flow Nasal Cannula 30 70 04/26/24 02:30 High Flow Nasal Cannula 04/26/24 02:07 High Flow Nasal Cannula 30 70 04/25/24 23:09 High Flow Nasal Cannula 30 70 04/25/24 22:50 04/25/24 22:30 High Flow Nasal Cannula 04/25/24 21:19 04/25/24 21:19 High Flow Nasal Cannula 30 70 04/25/24 21:19 High Flow Nasal Cannula 30 70 04/25/24 21:10 High Flow Nasal Cannula 35 70 Laboratory Results Cardiac Enzymes 04/25/24 Range/Units 16:21 AST 15 (13-39) U/L Troponin I High Sens 9.4 (0-20) pg/ml B-Natriuretic Peptide 208 H (0-100) pg/ml Coagulation 04/25/24 04/26/24 Range/Units 16:21 04:21 PT 82.1 H 26.6 H (9.0-12.0) Seconds B-Natriuretic Peptide 208 H (0-100) pg/ml CBC 04/25/24 04/26/24 Range/Units 16:21 04:21 WBC 10.44 8.32 (4.8-10.8) K/ul RBC 3.46 L 3.25 L (4.70-6.10) M/uL Hgb 9.4 L 8.8 L (14.0-18.0) g/dl Hct 30.6 L 28.2 L (42.0-52.0) % Plt Count 262 238 (130-400) K/uL Neut # (Auto) 7.96 H (1.40-6.50) K/uL Lymph # (Auto) 0.65 L (1.20-3.40) K/uL [place] # (Auto) 1.02 H (0.11-0.59) K/uL Eos # (Auto) 0.71 H (0.00-0.50) K/uL Baso # (Auto) 0.06 (0.00-0.20) K/uL Comprehensive Metabolic Panel 04/25/24 04/26/24 Range/Units 16:21 04:21 Sodium 140 142 (136-145) mmol/L Potassium 4.7 3.9 (3.5-5.1) mmol/L Chloride 106 106 (98-107) mmol/L Carbon Dioxide 25 29 (21-32) mmol/L BUN 32 H 31 H (6-23) mg/dl Creatinine 1.36 1.35 (0.6-1.4) mg/dl Glucose 104 H 85 (70-99(Fasting)) mg/dl Calcium 9.7 9.3 (8.6-10.3) mg/dl AST 15 (13-39) U/L ALT 8 (7-52) U/L Alkaline Phosphatase 70 (34-104) U/L Total Protein 7.3 (6.0-8.3) gm/dl Albumin 3.8 (3.4-5.0) gm/dl Intake and Output 04/25/24 04/26/24 04/26/24 22:59 06:59 14:59 Intake Total 170.25 / 170.25 110 / 110 Output Total 550 / 3200 2650 / 3200 600 / 600 Balance -379.75 / -3029.75 -2650 / -3029.75 -490 / -490 Intake: IV 50.25 / 50.25 110 / 110 Iron Sucrose 200 mg In 0.9 % 110 / 110 Sodium Chloride 100 ml @ 220 mls/hr IV ONE ONE Rx#:[id number] Phytonadione 2.5 mg In Dextrose 50.25 / 50.25 5% 50 ml @ 100.5 mls/hr IV ONE ONE Rx#:[id number] Oral 120 / 120 Output: Urine 550 / 3200 2650 / 3200 600 / 600 Other: Weight 110.5 kg 111.4 kg Weight Measurement Method Built in [facility] Built in [facility] Diagnostic Findings Echocardiogram 11/21/2023: [employer] system Interpretation Summary The qualitative LV ejection fraction is 55-59% (normal). The LV wall thickness is mildly increased (concentric). The right ventricular cavity is mildly dilated. The right ventricular systolic function is mildly reduced . Moderate to severe tricuspid regurgitation is present. Indeterminate IVC size and collapsability. Right atrial pressure estimated at 8 mmHg. The estimated pulmonary artery systolic pressure is 61mm Hg The estimated pulmonary artery systolic pressure is 55mm Hg.
--- NOTE | 2024-04-26 11:13 | CT Scan Report ---
CT chest diagnostic wo con CT DOSE: 885.57 mGy.cm CLINICAL HISTORY: 78 years-old Male with hypoxia. Acute hypoxia TECHNIQUE: Multiaxial CT images of the chest were performed without contrast. A dose lowering techni que was utilized adhering to the principles of ALARA. COMPARISON: None. FINDINGS: Limited exam secondary to positioning. No dominant thyroid nodule. Moderate cardiomegaly wi th trace pericardial effusion. Extensive coronary artery calcifications. Atherosclerosis of the aorta without aneurysm. Descending thoracic aortic tortuosity. Nonspecific mediastinal and hilar lymphaden opathy with subcarinal lymph nodes measuring up to 1.7 cm. Moderate to large layering pleural effusions. There is severe pulmonary emphysema. Intralobular septa l thickening with multifocal multilobar distribution of patchy airspace consolidation, left greater t landin right. No pneumothorax identified. Limited evaluation of the lungs secondary to respiratory motio n artifact. Biapical blebs/bulla formation. Central airways are fairly patent with mild tracheobronch ial secretions. Probable underlying pulmonary arterial hypertension. There is a hyperdense 2.6 cm lef t adrenal gland lesion with Hounsfield unit of 61. Probable left renal cyst. Bilateral renal vascular calcifications. Mild generalized body wall edema. Degenerative changes of the spine and shoulders. T he age-indeterminate burst fracture involving the T10 vertebral body without retropulsion. Age indete rminate 50% superior endplate impression deformity at T11 with 3 mm retropulsion. Comment kyphotic cu rvature centered at the T10 level. IMPRESSION: 1. Limited exam secondary to positioning. 2. Cardiomegaly with pulmonary edema and moderate to large layering pleural effusions with dependent bibasilar atelectasis. 3. Multifocal bilateral patchy airspace opacities may represent asymmetric alveolar pulmonary edema v ersus multifocal pneumonia. 4. Nonspecific mediastinal and hilar lymphadenopathy. 5. Hyperdense 2.6 cm left adrenal gland lesion, possibly a hemorrhagic adenoma. This lesion could be evaluated on follow-up. 6. Age-indeterminate severe T10 burst fracture without retropulsion and age-indeterminate T11 viral mio deformity with minimal retropulsion. Correlate with point tenderness. ACT 112: Negative or not required by law. Electronically signed by: Sebas Vicente M.D. 04/26/2024 11:11 AM
[2024-04-26] MEDS ORDERED: WARFARIN SOD 2.5 MG TAB PO SCH (16:00)
[2024-04-27] MEDS: BENZONATATE 100 MG CAPSULE PO PRN (00:08)
[2024-04-27 06:06] LABS: Basophils # (auto) 0.03 K/uL (0.00-0.20); Basophils % (auto) 0.4 %; Eosinophils # (auto) 0.64 K/uL (0.00-0.50); Eosinophils % (auto) 8.5 %; Hematocrit (blood only) 27.8 % (42.0-52.0); Hemoglobin 8.5 g/dl (14.0-18.0); Immature Granulocytes # (auto) 0.03 K/uL (0.01-0.20); Immature Granulocytes % (auto) 0.4 %; Lymphocytes # (auto) 0.43 K/uL (1.20-3.40); Lymphocytes % (auto) 5.7 %; Mean Corpuscular Hemoglobin 27.2 pg (25.0-34.0); Mean Corpuscular Hgb Conc 30.6 g/dL (32.0-36.0); Mean Corpuscular Volume 89.1 fL (80.0-100.0); Mean Platelet Volume 9.2 fL (9.4-12.4); Platelet Count 224 K/uL (130-400); RDW Coefficient of Variation 16.9 % (11.5-14.5); RDW Standard Deviation 54.5 fL (36.4-46.3); Red Blood Count 3.12 M/uL (4.70-6.10); White Blood Count 7.53 K/ul (4.8-10.8)
[2024-04-27 06:24] LABS: Calcium 8.7 mg/dl (8.6-10.3); Est GFR (African American) 54.4 ml/min; Est GFR (Non-African American) 46.9 ml/min; Magnesium 1.8 mg/dl (1.7-2.4); Phosphorus 4.4 mg/dl (2.5-4.9); Potassium 3.9 mmol/L (3.5-5.1)
[2024-04-27 06:30] LABS: INR 1.6 (0.9-1.1); Prothrombin Time 16.7 Seconds (9.0-12.0)
--- NOTE | 2024-04-27 10:41 | Pulmonary Consultation ---
Date of Consultation April 27, 2024 Assessment & Plan (1) Pulmonary edema: (2) Pleural effusion: (3) Acute hypoxemic respiratory failure: Plan Impression: 78-year-old male with history of diastolic heart failure who had his outpatient Lasix discontinued and presented with supratherapeutic INR, pulmonary edema, and bilateral pleural effusions. He had been on daptomycin in the past but this was discontinued. His INR has corrected with the use of vitamin K. He continues to require high flow oxygen. Recommendations: 1. Bilateral pleural effusion bedside ultrasound was performed. Right greater than left effusions were noted with compressive atelectasis. Discussed risk and benefits of thoracentesis with the patient and he is agreeable to proceed. Fluid will be sent for microbiologic as well as cytologic analysis. 2. Hypoxemic respiratory failure: Secondary to #1 with superimposed pulmonary edema. Continue diuresis recommended. Wean oxygen as tolerated 3. Will follow-up in a.m. with results of pleural fluid studies. The above recommendations and plan were discussed with the patient in detail. Questions were answered to the best my ability. He expressed understanding and is in agreement with plan as outlined History of Present Illness Attending Physician: Chrissy Broderick MD History of Present Illness Asked by hospitalist to assist in evaluation management this patient with pulmonary edema and bilateral pleural effusions likely secondary to fluid overload. History is obtained from discussion with the patient as well as review of electronic medical record. Patient is a 78-year-old male with a history of heart failure with preserved ejection fraction, coronary disease, and atrial fibrillation on chronic anticoagulation presented to the emergency room 04/25/2024 with complaints of shortness of breath. He had orthopnea. He had been managed on an outpatient dose of Lasix but this was held for some reason. He not had chest pain palpitations or night sweats. No fevers or chills. In the emergency room the patient was noted to be hypoxemic. He refused BiPAP and was placed on high flow cannula. His INR was supratherapeutic at 9.2. He was given vitamin K and Lasix IV and admitted to the hospitalist service. Cardiology consultation was obtained. They recommended continued diuresis. His INR this morning is down to 1.6 and pulmonary was consulted for consideration of diagnostic/therapeutic thoracentesis Allergies Allergy/AdvReac Type Severity Reaction Status Date / Time bee venom protein (honey bee) Allergy Unknown Verified 04/25/24 21:56 Home Medications Medication Instructions Recorded Confirmed Type amlodipine 10 mg tablet 10 mg PO DAILY 04/25/24 04/25/24 History atorvastatin 20 mg tablet 20 mg PO DAILY 04/25/24 04/25/24 History ergocalciferol (vitamin D2) 1,250 1,250 mcg PO MO 04/25/24 04/25/24 History mcg (50,000 unit) capsule (Vitamin D2) lisinopril 10 mg tablet 10 mg PO DAILY 04/25/24 04/25/24 History metoprolol succinate 25 mg 25 mg PO DAILY 04/25/24 04/25/24 History tablet,extended release 24 hr omeprazole 20 mg tablet,delayed 20 mg PO DAILY 04/25/24 04/25/24 History release warfarin 5 mg tablet 5 mg PO SUTUTHSA 04/25/24 04/25/24 History warfarin 5 mg tablet 7.5 mg PO MOWEFR 04/25/24 04/25/24 History Patient History Medical History (Updated 04/27/24 @ 10:38 by Hermes Mtz MD) Mild intermittent asthma PAF (paroxysmal atrial fibrillation) CAD (coronary artery disease) Squamous cell carcinoma of parotid Chronic CHF HTN (hypertension) HLD (hyperlipidemia) Surgical History (Updated 04/25/24 @ 19:50 by Jill Brown PA-C) Hx of fracture of hip Right s/p fixation Hx of tonsillectomy History of parotidectomy Left wide local excision, left parotidectomy, left neck dissection, submental island flap reconstruction, and STSG to the left ear canal on 04/27/23. - Final pathology [id number]. Tumor board recommendation for adjuvant radiation, compelted July 2023. - Reconstruction of left wound dehiscence with temporalis flap, postauricular cervicofacial advancement flap, and skin grafting on 12/12/23. Concurrent meatoplasty, canalplasty, and skin grafting with Dr. Garcia. Social History (Updated 04/25/24 @ 20:29 by Jill Brown PA-C) Smoking Status: Former smoker Hx Alcohol Use: No Hx Substance Use: No Preferred Language: Ethiopian Communication Ability: Effective Fingernail Sculptor Required: No Beliefs That Will Affect Care: None Current Living Situation: Personal Care Facility Other Information That Helps Us Care for You: No Feels Safe at Home: Yes Safety Concerns: Feels Safe At This Time Assistive Devices: Walker Review of Systems Review of Systems: Please refer to admission H&P. No additions or deletions Physical Exam Constitutional: + ill appearing, + thin and + frail appe aring; no acute distress ENMT: hx of extensive surgical intervention to the left parotid region due to SCC. Neck: normal visual inspection and trachea midline Respiratory: no respiratory distress, no labored breathing and no cough Auscultation: + diminished lung sounds and + wheezes (faint expiratory wheeze in upper lobes ); no crackles, no rales and no rhonchi Cardiovascular: Rate/Rhythm: + irregularly irregular Heart Sounds: normal S1 and normal S2; no murmur Vessels: dorsalis pedis pulses present; no JVD Extremities: no edema Skin: no rashes, warm and dry Psychiatric: Orientation: alert and oriented x 3 Affect: euthymic affect Results & Data Results & Data Vital Signs (Past 12 Hours) Vital Signs Temp Pulse Pulse Resp BP BP Pulse Ox 04/27/24 08:28 04/27/24 07:19 74 20 91 04/27/24 07:08 37.5 C 64 22 113/71 90 04/27/24 06:41 63 04/27/24 05:00 68 20 92 04/27/24 02:38 36.9 C 54 L 21 121/69 99 04/26/24 23:15 63 23 93 04/26/24 22:45 60 18 94 O2 Del Method O2 Flow Rate FiO2 04/27/24 08:28 High Flow Nasal Cannula 30 80 04/27/24 07:19 High Flow Nasal Cannula 30 80 04/27/24 07:08 High Flow Nasal Cannula 30 70 04/27/24 06:41 04/27/24 05:00 High Flow Nasal Cannula 30 80 04/27/24 02:38 BiPAP 04/26/24 23:15 80 04/26/24 22:45 High Flow Nasal Cannula 30 80 Critical Care Results & Data Vital Signs (Past 12 Hours) Vital Signs Temp Pulse Pulse Resp BP BP Pulse Ox 04/27/24 08:28 04/27/24 07:19 74 20 91 04/27/24 07:08 37.5 C 64 22 113/71 90 04/27/24 06:41 63 04/27/24 05:00 68 20 92 04/27/24 02:38 36.9 C 54 L 21 121/69 99 04/26/24 23:15 63 23 93 04/26/24 22:45 60 18 94 O2 Del Method O2 Flow Rate FiO2 04/27/24 08:28 High Flow Nasal Cannula 30 80 04/27/24 07:19 High Flow Nasal Cannula 30 80 04/27/24 07:08 High Flow Nasal Cannula 30 70 04/27/24 06:41 04/27/24 05:00 High Flow Nasal Cannula 30 80 04/27/24 02:38 BiPAP 04/26/24 23:15 80 04/26/24 22:45 High Flow Nasal Cannula 30 80 Lab & Micro Results (Past 24 Hours) RBC 3.12 M/uL (4.70-6.10) L 04/27/24 WBC 7.53 K/ul (4.8-10.8) 04/27/24 Hgb 8.5 g/dl (14.0-18.0) L 04/27/24 Hct 27.8 % (42.0-52.0) L 04/27/24 MCV 89.1 fL (80.0-100.0) 04/27/24 MCH 27.2 pg (25.0-34.0) 04/27/24 MCHC 30.6 g/dL (32.0-36.0) L 04/27/24 RDW Standard Deviation 54.5 fL (36.4-46.3) H 04/27/24 RDW Coefficient of Variation 16.9 % (11.5-14.5) H 04/27/24 Plt Count 224 K/uL (130-400) 04/27/24 MPV 9.2 fL (9.4-12.4) L 04/27/24 Neutrophils (%) (Auto) 73.0 % 04/27/24 Lymphocytes (%) (Auto) 5.7 % 04/27/24 Monocytes # (Auto) 0.90 K/uL (0.11-0.59) H 04/27/24 Eosinophils # (Auto) 0.64 K/uL (0.00-0.50) H 04/27/24 Immature Granulocyte % (Auto) 0.4 % 04/27/24 Neutrophils # (Auto) 5.50 K/uL (1.40-6.50) 04/27/24 Lymphocytes # (Auto) 0.43 K/uL (1.20-3.40) L 04/27/24 Monocytes # (Auto) 0.90 K/uL (0.11-0.59) H 04/27/24 Eosinophils # (Auto) 0.64 K/uL (0.00-0.50) H 04/27/24 Basophils # (Auto) 0.03 K/uL (0.00-0.20) 04/27/24 Immature Granulocyte # (Auto) 0.03 K/uL (0.01-0.20) 4 Na 142 mmol/L (136-145) 04/27/24 K 3.9 mmol/L (3.5-5.1) 04/27/24 Cl 104 mmol/L (98-107) 04/27/24 CO2 31 mmol/L (21-32) 04/27/24 Anion Gap 7 (3-11) 04/27/24 BUN 30 mg/dl (6-23) H 04/27/24 Creatinine 1.43 mg/dl (0.6-1.4) H 04/27/24 Estimated GFR ( Amer) 54.4 ml/min 04/27/24 Estimated GFR (Non-Af Amer) 46.9 ml/min 04/27/24 BUN/Creatinine Ratio 21.0 (10-20) H 04/27/24 Glu 95 mg/dl (70-99(Fasting)) 04/27/24 Ca 8.7 mg/dl (8.6-10.3) 04/27/24 Phosphorus Level 4.4 mg/dl (2.5-4.9) 04/27/24 Mg 1.8 mg/dl (1.7-2.4) 04/27/24 05:33 Calcium Level 8.7 mg/dl (8.6-10.3) 04/27/24 05:33 Prothromb Time International Ratio 1.6 (0.9-1.1) H 04/27/24 05 :33 Diagnostic Findings (Past 24 Hours) Chest CT 04/26/24 10:00 CT chest diagnostic wo con CT DOSE: 885.57 mGy.cm CLINICAL HISTORY: 78 years-old Male with hypoxia. Acute hypoxia TECHNIQUE: Multiaxial CT images of the chest were performed without contrast. A dose lowering technique was utilized adhering to the principles of ALARA. COMPARISON: None. FINDINGS: Limited exam secondary to positioning. No dominant thyroid nodule. Moderate cardiomegaly with trace pericardial effusion. Extensive coronary artery calcifications. Atherosclerosis of the aorta without aneurysm. Descending thoracic aortic tortuosity. Nonspecific mediastinal and hilar lymphadenopathy with subcarinal lymph nodes measuring up to 1.7 cm. Moderate to large layering pleural effusions. There is severe pulmonary emphysema. Intralobular septal thickening with multifocal multilobar distribution of patchy airspace consolidation, left greater than right. No pneumothorax identified. Limited evaluation of the lungs secondary to respiratory motion artifact. Biapical blebs/bulla formation. Central airways are fairly patent with mild tracheobronchial secretions. Probable underlying pulmonary arterial hypertension. There is a hyperdense 2.6 cm left adrenal gland lesion with Hounsfield unit of 61. Probable left renal cyst. Bilateral renal vascular calcifications. Mild generalized body wall edema. Degenerative changes of the spine and shoulders. The age-indeterminate burst fracture involving the T10 vertebral body without retropulsion. Age indeterminate 50% superior endplate impression deformity at T11 with 3 mm retropulsion. Comment kyphotic curvature centered at the T10 level. IMPRESSION: 1. Limited exam secondary to positioning. 2. Cardiomegaly with pulmonary edema and moderate to large layering pleural effusions with dependent bibasilar atelectasis. 3. Multifocal bilateral patchy airspace opacities may represent asymmetric alveolar pulmonary edema versus multifocal pneumonia. 4. Nonspecific mediastinal and hilar lymphadenopathy. 5. Hyperdense 2.6 cm left adrenal gland lesion, possibly a hemorrhagic adenoma. This lesion could be evaluated on follow-up. 6. Age-indeterminate severe T10 burst fracture without retropulsion and age- indeterminate T11 compression deformity with minimal retropulsion. Correlate with point tenderness. ACT 112: Negative or not required by law. Electronically signed by: Sebas Vicente M.D. 04/26/2024 11:11 AM I & O Totals 24 Hours 04/26/24 04/27/24 04/28/24 06:59 06:59 06:59 Intake Total 170.25 / 170.25 1140 / 1140 350 / 350 Output Total 3200 / 3200 2600 / 2600 450 / 450 Balance -3029.75 / -3029.75 -1460 / -1460 -100 / -100 Cumulative 04/25/24 15:41 thru 04/27/24 09:31 Intake Total 1660.25 Output Total 6250 Balance -4589.75 RT Ventilator Mngmt (Last Documented) Ventilator Ordered Settings Respiratory Rate 20 04/27/24 07:19 Fraction of Inspired Oxygen 80 04/27/24 08:28 Ventilator - PT Measurements Respiratory Rate 20 PG Care Time/CCT Total # of Minutes Spent Total Time Spent with Patient: Total time spent is greater than 50% in coordination of care (as documented) at patient's floor/unit and/or counseling patient: Coding Level of Care Code 74284 INT INP/OBS CARE 2/55MIN Diagnoses Pulmonary edema J81.1 Pleural effusion J90 Acute hypoxemic respiratory failure J96.01
--- NOTE | 2024-04-27 10:43 | Procedure Note ---
Procedure Note Date of Service April 27, 2024 Procedure: Diagnostic therapeutic ultrasound-guided catheter thoracentesis, right Ic Designer Standard Cells: Dr. Hermes Mtz Indication: Pleural effusion Consent: Signed by patient and verified with timeout prior to procedure Anesthesia: 8 mL's 1% lidocaine without epinephrine local. Procedure: Consent was verified and timeout performed. Appropriate imaging studies were reviewed prior to the procedure. Patient was placed in a seated position and limited thoracic ultrasound was performed of the bilateral chest. A small left- sided effusion was noted with a slightly larger right-sided effusion with some compressive atelectasis. Site appropriate for thoracentesis on the right was marked. The skin was prepped and draped in normal sterile fashion. Lidocaine was used for local analgesia. Fluid was aspirated via the finder needle. A small skin brady was made with the scalpel and the catheter over the needle apparatus was advanced over the rib into the pleural space. Using the syringe one-way valve system, a total of 800 mL's of debbie fluid was removed. Procedure was terminated due to inability to withdraw additional fluid. The catheter was removed and observed to be intact. A sterile dressing was applied. Post procedure chest x-ray was ordered. Postprocedural ultrasound was performed which demonstrated trivial residual fluid on the right sliding noted Fluid was sent for cytology, cell count differential, Gram stain and culture, AFB culture, LDH,'s, total protein, and pH. The patient tolerated the procedure well without obvious complication [facility] [place] Procedure Codes (Charges) Pulmonary/Thoracic Procedure 1: Pulmonary and Thoracic: 19629 Thoracentesis w imaging Coding CPT Codes Pulmonary/Thoracic - Pulmonary and Thoracic: 98566 Thoracentesis w imaging ([id number]) Additional Codes Date of Service (PG.SURGERY)
--- NOTE | 2024-04-27 11:02 | XRay Report ---
XR chest 1V portable HISTORY: 78 years-old Male S/P Thoracentesis acute shortness of breath COMPARISON: Chest CT 04/26/2024 TECHNIQUE: AP view of the chest FINDINGS: Cardiac silhouette is enlarged. Atherosclerosis of the aorta. Severe emphysema with mixed interstitia l and alveolar opacities redemonstrated. Layering pleural effusions. Mild left hemidiaphragm elevatio n. Pulmonary vascular congestion. Bones appear intact. IMPRESSION: 1. Cardiomegaly with pulmonary edema and layering pleural effusions redemonstrated. 2. Bilateral airspace opacities redemonstrated suggestive of alveolar edema versus multifocal pneumon ia. ACT 112: Negative or not required by law. The above report was generated using voice recognition software. It may contain grammatical, syntax o r spelling errors. Electronically signed by: Sebas Vicente M.D. 04/27/2024 11:00 AM
[2024-04-27 11:46] LABS: Total Protein Pleural Fluid 3.6 gm/dl
--- NOTE | 2024-04-27 11:57 | Cardiology Progress Note ---
<Statement entered by Beatriz Benson, DO - 04/27/24 16:02> I have reviewed the advanced practitioner's documentation and agree with the plan of care. I accept the responsibility for the associated risk. pt seen in cardiology f/u due to acute on chronic heart failure with preserved EF-NYHA Class III due to patient's out patient diuretics being held due to recent C-Diff Pt is known to me from the office Pt had a thorocentesis today and is breathing much better His INR was reversed yesterday-I think his coumadin can be restarted but at a lower dose Restart his oral lasix 40mg; I do not think he needs any more IV diuretics Continue other home cardiac medications He has a follow up in the office with me coming up so we can keep that No further in patient cardiac recommendations or testing at this juncture please re-consult as necessary Date of Service April 27, 2024 Assessment & Plan (1) Acute on chronic diastolic CHF (congestive heart failure): (2) Pleural effusion: (3) Supratherapeutic INR: (4) Acute hypoxemic respiratory failure: Plan Assessment: 78 year old male with SCC of the Parotid presents with 3-4 days of worsening dyspnea with little exertion. Known history of Chronic diastolic HF, but reports no home diuretics for several weeks in the setting of multiple hospitalizations, home IV antibiotics and rehabilitation stay. - heart rate and blood pressure currently well controlled - he is feeling much better after having IV diuresis and undergoing thoracentesis earlier today - appears euvolemic on exam -Strict I&O. Daily weights. -Strict 1500ml fluid restriction and low sodium 2GM or less. -Close monitoring of renal function -Goal serum K> 4.0 and Serum Mag > 2.0 -Echocardiogram obtained demonstrating preserved LVEF 60-65%, severely dilated left atrium, mild MR, moderate TR. Study was compared with most recent OP study at [facility] which shows no significant change. -Continue Hi-flow O2, titrate as appropriate. patient refused BiPAP. -Continue Toprol XL, Atorvastatin, Lisinopril and amlodipine. -INR is back down, below the therapeutic window would recommend resuming warfarin at this point - can transition back to oral diuretic therapy, reportedly has not been getting his oral diuretics for a few weeks we will resume his home dose and see how he tolerates furosemide 40 mg daily Case has been discussed with Dr. Benson, please see her attestation for additional recommendations [facility] Admission and Anticipated Discharge Date Admission Date: April 25, 2024 Subjective 78 year old male seen in cardiology follow up in regard to acute on chronic CHF exacerbation. Underwent R thoracentesis earlier today with 800 cc removed. symptomatically feeling significantly better after being restarted on diuretic therapy. Review of Systems Review of Systems: All systems reviewed & are unremarkable except as noted in Subjective Physical Exam Constitutional: + ill appearing and + thin; no acute dis tress Respiratory: normal respiratory effort; no respiratory distress Auscultation: + diminished lung sounds Cardiovascular: Rate/Rhythm: regular rate and regular rhythm Gastrointestinal (Abdomen): normal bowel sounds, soft, nontender, no hepatosplenomegaly Skin: no rashes, warm and dry Psychiatric: A+Ox3, euthymic affect Results & Data Vital Signs (Past 12 Hours) Vital Signs Temp Pulse Pulse Resp BP BP Pulse Ox 04/27/24 11:19 71 20 92 04/27/24 10:40 36.7 C 59 L 17 95/60 L 91 04/27/24 08:28 04/27/24 07:19 74 20 91 04/27/24 07:08 37.5 C 64 22 113/71 90 04/27/24 06:41 63 04/27/24 05:00 68 20 92 04/27/24 02:38 36.9 C 54 L 21 121/69 99 O2 Del Method O2 Flow Rate FiO2 04/27/24 11:19 High Flow Nasal Cannula 30 45 04/27/24 10:40 High Flow Nasal Cannula 30 54 04/27/24 08:28 High Flow Nasal Cannula 30 80 04/27/24 07:19 High Flow Nasal Cannula 30 80 04/27/24 07:08 High Flow Nasal Cannula 30 70 04/27/24 06:41 04/27/24 05:00 High Flow Nasal Cannula 30 80 04/27/24 02:38 BiPAP
[2024-04-27 12:17] LABS: Appearance Pleural Fluid Cloudy; Basophils, Fluid 2 %; Color Pleural Fluid Straw; Eosinophils, Fluid 3 %; Lymphocytes, Fluid 84 %; Mono,Macrophage,Mesothelial 8 %; Neutrophils, Fluid 3 %; RBC Pleural Fluid Auto 6000 /uL; Source Pleural Fluid Right Lung; WBC Pleural Fluid Auto 1063 /uL
--- NOTE | 2024-04-27 14:26 | Hospitalist Progress Note ---
Date of Service April 27, 2024 Assessment & Plan (1) Acute hypoxemic respiratory failure: (2) Acute on chronic diastolic CHF (congestive heart failure): (3) Supratherapeutic INR: (4) PAF (paroxysmal atrial fibrillation): (5) CAD (coronary artery disease): (6) Squamous cell carcinoma of parotid: Plan This is a 78-year-old male who has significant past medical history of CAD, PAF anticoagulated on warfarin, chronic diastolic CHF, HTN, HLD, mild intermittent asthma, 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 Garcia who presents to ED 2/2 worsening SOB over the last 3-4 days. Acute hypoxic respiratory failure Acute on chronic decompensated diastolic CHF Pulmonary Edema Hypoxic, requiring hi gali, refusing bipap, full code Chest xray noting pleural effusions, pulm edema CT chest noting mod-large layering pleural effusions BNP 208 Echo with EF 60-65%, mild LVH, LA severely dilated, RV mild dilation, RV systolic function mildly decreased, mild MR, mod TR, elevated pulm HTN treated with IV Lasix 40mg BID daily weights, I and O Pt refusing bipap, was on highflow, on NC after thoracentesis Pulmonology consulted for layering pleural effusions, appreciate recs -s/p bilat thoracenteses on 04/27, removal of ~800ml Cardiology consulted appreciate recs -transitioned to po lasix 40mg -resume warfarin Improving CLAUDY Cr elevated to 1.4 on 04/27 Likely in setting of diuresis Was transitioned to po by cardiology Avoid nephrotoxic agents Continue to monitor Supratherapeutic INR PAF held warfarin, was given 2.5mg vit K, pt reported some blood in sputum continue metoprolol, tele monitoring INR down to 1.6 for needed thoracentesis Warfarin re-started post procedure Follow INR Iron Deficiency Anemia Hgb 9.4 to 8.8 anemia panel noting iron def anemia s/p IV Venofer on 04/26 Continue to monitor HTN: chronic, stable - pt on amlodipine, lisinopril HLD: chronic, stable - continue statin Hx of SCC of L parotid s/p resection, radiation, wound dehiscence and eventual reconstruction, 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 Stated that he felt like it helped his breathing tremendously. States that he would like to start moving and getting out of bed. Review of Systems Review of Systems: All systems reviewed & are unremarkable except as noted in Subjective Physical Exam Physical Exam: General: Alert, oriented. Resting comfortably Psych: Appropriate mood and affect Neuro: No gross deficits while sitting in bed HEENT: Left ear and side of face with post surgical changes, Hiflo cannula in nares CV: Irregular Resp: Breath sounds decreased bilaterally, no increased effort of breathing. Abdomen: Soft, nontender Extremities: edema in lower extremities bilaterally. Results & Data Results & Data Vital Signs (Past 12 Hours) Vital Signs Temp Pulse Pulse Resp BP BP Pulse Ox 04/27/24 11:19 71 20 92 04/27/24 10:40 36.7 C 59 L 17 95/60 L 91 04/27/24 08:28 04/27/24 07:19 74 20 91 04/27/24 07:08 37.5 C 64 22 113/71 90 04/27/24 06:41 63 04/27/24 05:00 68 20 92 04/27/24 02:38 36.9 C 54 L 21 121/69 99 O2 Del Method O2 Flow Rate FiO2 04/27/24 11:19 High Flow Nasal Cannula 30 45 04/27/24 10:40 High Flow Nasal Cannula 30 54 04/27/24 08:28 High Flow Nasal Cannula 30 80 04/27/24 07:19 High Flow Nasal Cannula 30 80 04/27/24 07:08 High Flow Nasal Cannula 30 70 04/27/24 06:41 04/27/24 05:00 High Flow Nasal Cannula 30 80 04/27/24 02:38 BiPAP
[2024-04-27] MEDS: WARFARIN SOD 2.5 MG TAB PO SCH (18:48)
[2024-04-28 05:42] LABS: Basophils # (auto) 0.03 K/uL (0.00-0.20); Basophils % (auto) 0.4 %; Eosinophils # (auto) 0.66 K/uL (0.00-0.50); Eosinophils % (auto) 7.8 %; Hematocrit (blood only) 29.9 % (42.0-52.0); Immature Granulocytes # (auto) 0.02 K/uL (0.01-0.20); Immature Granulocytes % (auto) 0.2 %; Lymphocytes # (auto) 0.52 K/uL (1.20-3.40); Lymphocytes % (auto) 6.1 %; Mean Corpuscular Hgb Conc 30.1 g/dL (32.0-36.0); Mean Corpuscular Volume 89.8 fL (80.0-100.0); Mean Platelet Volume 9.3 fL (9.4-12.4); Monocytes # (auto) 1.02 K/uL (0.11-0.59); Monocytes % (auto) 12.1 %; Neutrophils # (auto) 6.21 K/uL (1.40-6.50); Neutrophils % (auto) 73.4 %; Platelet Count 239 K/uL (130-400); RDW Coefficient of Variation 16.7 % (11.5-14.5); RDW Standard Deviation 55.2 fL (36.4-46.3); Red Blood Count 3.33 M/uL (4.70-6.10); White Blood Count 8.46 K/ul (4.8-10.8)
[2024-04-28 05:57] LABS: BUN Creatinine Ratio 23.6 (10-20); Calcium 8.9 mg/dl (8.6-10.3); Creatinine Clr Calc Pharmacy 59.6 ml/min; Est GFR (African American) 55.8 ml/min; Est GFR (Non-African American) 48.1 ml/min; Magnesium 1.8 mg/dl (1.7-2.4); Phosphorus 3.8 mg/dl (2.5-4.9)
[2024-04-28 06:05] LABS: INR 1.9 (0.9-1.1); Prothrombin Time 19.3 Seconds (9.0-12.0)
[2024-04-28] MEDS: FUROSEMIDE 40 MG TAB PO SCH (08:03)
--- NOTE | 2024-04-28 10:31 | Pulmonology Progress Note ---
Date of Service April 28, 2024 Assessment & Plan (1) Pulmonary edema: (2) Pleural effusion: (3) Acute hypoxemic respiratory failure: Plan Impression: 78-year-old male with history of diastolic heart failure who had his outpatient Lasix discontinued and presented with supratherapeutic INR, pulmonary edema, and bilateral pleural effusions. He underwent thoracentesis on the right yesterday and is clinically better today. Recommendations: 1. Bilateral pleural effusion: Status post diagnostic therapeutic thoracentesis. Fluid is borderline transudate likely secondary to heart failure. Continue diuretics. Will contact patient if cytology requires additional intervention 2. Hypoxemic respiratory failure: Secondary to #1 with superimposed pulmonary edema. Continue diuresis recommended. Wean oxygen as tolerated Pulmonary will sign off. Feel free to contact us with questions or concerns Admission and Anticipated Discharge Date Admission Date: April 25, 2024 Subjective Patient seen and examined. EMR reviewed. He states he feels much better after the thoracentesis yesterday. He is down to 2 L oxygen by facemask. He is not having any chest pain. No palpitations. He is tolerating diuresis Review of Systems 2 Review of Systems: All systems reviewed & are unremarkable except as noted in Subjective Physical Exam 2 Constitutional: + ill appearing, + thin and + frail appe aring; no acute distress Neck: normal visual inspection and trachea midline Respiratory: no respiratory distress, no labored breathing and no cough A uscultation: + diminished lung sounds and + wheezes (faint expiratory wheeze in upper lobes ); no crackles, no rales and no rhonchi Cardiovascular: Rate/Rhythm: + irregularly irregular Heart Sounds: normal S1 and normal S2; no murmur Vessels: dorsalis pedis pulses present; no JVD Extremities: no edema Skin: no rashes, warm and dry Psychiatric: Orientation: alert and oriented x 3 Affect: euthymic affect Results & Data Results & Data Vital Signs (Past 12 Hours) Vital Signs Temp Pulse Pulse Resp BP BP Pulse Ox 04/28/24 07:29 63 04/28/24 07:21 36.4 C L 63 19 127/73 97 04/28/24 02:30 36.4 C L 60 20 121/65 99 04/27/24 22:35 37.1 C 56 L 20 119/58 L 87 L 04/27/24 22:30 63 O2 Del Method O2 Flow Rate 04/28/24 07:29 04/28/24 07:21 Oxymask 4.0 04/28/24 02:30 Nasal Cannula 04/27/24 22:35 High Flow Nasal Cannula 04/27/24 22:30 Laboratory Results 04/28/24 04:20 04/28/24 04:20 Pleural fluid studies: Differential 3% neutrophils, 84% lymphocytes, 3% eosinophils, 2% basophils, 80% monocytes pH 7.46 LDH 134 Total protein 3.6 Glucose 106 Cytology pending Gram stain and culture pending Diagnostic Findings Post procedure chest x-ray was reviewed. No pneumothorax. Persistent left effusion with pulmonary edema still present although improved. PG Care Time/CCT Total # of Minutes Spent Total Time Spent with Patient: Total time spent is greater than 50% in coordination of care (as documented) at patient's floor/unit and/or counseling patient: Coding Level of Care Code 44095 SUB INP/OBS CARE 2/35MIN Diagnoses Pulmonary edema J81.1 Pleural effusion J90 Acute hypoxemic respiratory failure J96.01
--- NOTE | 2024-04-28 13:00 | Hospitalist Progress Note ---
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 Garcia who presents to ED 2/2 worsening SOB over the last 3-4 days. Acute hypoxic respiratory failure Acute on chronic decompensated diastolic CHF Pulmonary Edema Hypoxic, requiring hi gali, refusing bipap, full code Chest xray noting pleural effusions, pulm edema CT chest noting mod-large layering pleural effusions BNP 208 Echo with EF 60-65%, mild LVH, LA severely dilated, RV mild dilation, RV systolic function mildly decreased, mild MR, mod TR, elevated pulm HTN treated with IV Lasix 40mg BID daily weights, I and O Pt refusing bipap, was on highflo, on NC after thoracentesis. Currently on oxymask Pulmonology consulted for layering pleural effusions, appreciate recs -s/p R thoracentesis on 04/27, removal of ~800ml Cardiology consulted appreciate recs -transitioned to po lasix 40mg -resume warfarin Improving CLAUDY Cr elevated to 1.4 on 04/27 Likely in setting of diuresis Was transitioned to po by cardiology Avoid nephrotoxic agents Continue to monitor Supratherapeutic INR PAF held warfarin, was given 2.5mg vit K, pt reported some blood in sputum continue metoprolol, tele monitoring INR down to 1.6 for needed thoracentesis Warfarin re-started post procedure Follow INR Iron Deficiency Anemia Hgb 9.4 to 8.8 anemia panel noting iron def anemia s/p IV Venofer on 04/26 Continue to monitor HTN: chronic, stable - pt on amlodipine, lisinopril HLD: chronic, stable - continue statin Hx of SCC of L parotid s/p resection, radiation, wound dehiscence and eventual reconstruction, 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 Sitting in chair at bedside, towel over face. States that his breathing has improved significantly. States he is looking forward to working with PT. Notes no BMs since he has been here but notes recent c diff Review of Systems Review of Systems: All systems reviewed & are unremarkable except as noted in Subjective Physical Exam Physical Exam: General: Alert, oriented. Resting comfortably Psych: Appropriate mood and affect Neuro: No gross deficits while sitting in bed HEENT: Left ear and side of face with post surgical changes CV: Irregular Resp: Breath sounds decreased bilaterally, no increased effort of breathing. Abdomen: Soft, nontender Extremities: edema in lower extremities bilaterally. Results & Data Results & Data Vital Signs (Past 12 Hours) Vital Signs Temp Pulse Pulse Resp BP BP Pulse Ox 04/28/24 10:53 36.5 C 53 L 17 130/70 94 04/28/24 08:02 04/28/24 07:29 63 04/28/24 07:21 36.4 C L 63 19 127/73 97 04/28/24 02:30 36.4 C L 60 20 121/65 99 O2 Del Method O2 Flow Rate 04/28/24 10:53 Nasal Cannula 1.0 04/28/24 08:02 Oxymask 2 04/28/24 07:29 04/28/24 07:21 Oxymask 4.0 04/28/24 02:30 Nasal Cannula
[2024-04-28] MEDS: WARFARIN SOD 2 MG TAB PO SCH (16:02)
[2024-04-29 06:20] LABS: Basophils # (auto) 0.03 K/uL (0.00-0.20); Basophils % (auto) 0.4 %; Eosinophils # (auto) 0.78 K/uL (0.00-0.50); Eosinophils % (auto) 11.1 %; Hematocrit (blood only) 27.7 % (42.0-52.0); Hemoglobin 8.6 g/dl (14.0-18.0); Immature Granulocytes # (auto) 0.03 K/uL (0.01-0.20); Immature Granulocytes % (auto) 0.4 %; Lymphocytes # (auto) 0.51 K/uL (1.20-3.40); Lymphocytes % (auto) 7.2 %; Mean Corpuscular Hemoglobin 27.3 pg (25.0-34.0); Mean Corpuscular Volume 87.9 fL (80.0-100.0); Mean Platelet Volume 9.5 fL (9.4-12.4); Monocytes # (auto) 0.74 K/uL (0.11-0.59); Monocytes % (auto) 10.5 %; Neutrophils # (auto) 4.96 K/uL (1.40-6.50); Neutrophils % (auto) 70.4 %; Platelet Count 242 K/uL (130-400); RDW Coefficient of Variation 16.8 % (11.5-14.5); RDW Standard Deviation 53.6 fL (36.4-46.3); Red Blood Count 3.15 M/uL (4.70-6.10); White Blood Count 7.05 K/ul (4.8-10.8)
[2024-04-29 06:33] LABS: BUN Creatinine Ratio 30.3 (10-20); Calcium 8.9 mg/dl (8.6-10.3); Creatinine Clr Calc Pharmacy 69.7 ml/min; Est GFR (African American) 67.9 ml/min; Est GFR (Non-African American) 58.6 ml/min; Magnesium 1.9 mg/dl (1.7-2.4); Phosphorus 3.7 mg/dl (2.5-4.9); Potassium 4.3 mmol/L (3.5-5.1)
[2024-04-29 06:44] LABS: INR 2.4 (0.9-1.1); Prothrombin Time 24.5 Seconds (9.0-12.0)
[2024-04-29] MEDS: POLYETHYLENE (MIRALAX) 17 GM PACK PO PRN (08:41)
--- NOTE | 2024-04-29 15:56 | Hospitalist Progress Note ---
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 Garcia who presents to ED 2/2 worsening SOB over the last 3-4 days. Acute hypoxic respiratory failure Acute on chronic decompensated diastolic CHF Pulmonary Edema Hypoxic, requiring hi gali, refusing bipap, full code Chest xray noting pleural effusions, pulm edema CT chest noting mod-large layering pleural effusions BNP 208 Echo with EF 60-65%, mild LVH, LA severely dilated, RV mild dilation, RV systolic function mildly decreased, mild MR, mod TR, elevated pulm HTN treated with IV Lasix 40mg BID daily weights, I and O Pt refusing bipap, was on highflo, on NC after thoracentesis. Currently on oxymask Pulmonology consulted for layering pleural effusions, appreciate recs -s/p R thoracentesis on 04/27, removal of ~800ml Cardiology consulted appreciate recs -transitioned to po lasix 40mg -resume warfarin Improving CLAUDY Cr elevated to 1.4 on 04/27 Likely in setting of diuresis Was transitioned to po by cardiology Avoid nephrotoxic agents Continue to monitor Supratherapeutic INR PAF held warfarin, was given 2.5mg vit K, pt reported some blood in sputum continue metoprolol, tele monitoring INR down to 1.6 for needed thoracentesis Warfarin re-started post procedure Follow INR Iron Deficiency Anemia Hgb 9.4 to 8.8 anemia panel noting iron def anemia s/p IV Venofer on 04/26 Continue to monitor HTN: chronic, stable - pt on amlodipine, lisinopril HLD: chronic, stable - continue statin Hx of SCC of L parotid s/p resection, radiation, wound dehiscence and eventual reconstruction, 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 Sitting in bed States that his breathing has improved significantly. States he is looking forward to working with PT. Worked with OT yesterday. Review of Systems Review of Systems: All systems reviewed & are unremarkable except as noted in Subjective Physical Exam Physical Exam: General: Alert, oriented. Resting comfortably Psych: Appropriate mood and affect Neuro: No gross deficits while sitting in bed HEENT: Left ear and side of face with post surgical changes CV: Irregular Resp: Breath sounds decreased bilaterally, no increased effort of breathing. Abdomen: Soft, nontender Extremities: edema in lower extremities bilaterally. Results & Data Results & Data Vital Signs (Past 12 Hours) Vital Signs Temp Pulse Pulse Resp BP Pulse Ox O2 Del Method 04/29/24 15:24 58 L 04/29/24 08:34 61 04/29/24 08:34 Oxymask 04/29/24 07:21 36.9 C 57 L 20 113/54 L 96 Oxymask O2 Flow Rate 04/29/24 15:24 04/29/24 08:34 04/29/24 08:34 2 04/29/24 07:21 6.0
[2024-04-30 06:29] LABS: Hematocrit (blood only) 27.9 % (42.0-52.0); Hemoglobin 8.6 g/dl (14.0-18.0); Mean Corpuscular Hemoglobin 27.1 pg (25.0-34.0); Mean Corpuscular Hgb Conc 30.8 g/dL (32.0-36.0); Mean Platelet Volume 9.3 fL (9.4-12.4); Platelet Count 220 K/uL (130-400); RDW Coefficient of Variation 16.4 % (11.5-14.5); RDW Standard Deviation 53.6 fL (36.4-46.3); Red Blood Count 3.17 M/uL (4.70-6.10); White Blood Count 6.74 K/ul (4.8-10.8)
[2024-04-30 06:39] LABS: BUN Creatinine Ratio 30.9 (10-20); Calcium 9.1 mg/dl (8.6-10.3); Creatinine Clr Calc Pharmacy 67.7 ml/min; Est GFR (African American) 65.2 ml/min; Est GFR (Non-African American) 56.3 ml/min; Magnesium 1.9 mg/dl (1.7-2.4); Phosphorus 3.7 mg/dl (2.5-4.9); Potassium 4.2 mmol/L (3.5-5.1)
--- NOTE | 2024-04-30 11:40 | XRay Report ---
XR chest 1V portable HISTORY: f/u pleural effusions COMPARISON: Chest 04/27/2024. FINDINGS: Emphysema. No pneumothorax. There are low lung volumes. The heart remains enlarged. Calcifi cations within the aortic knob. No acute fractures. Diffuse interstitial thickening with multifocal p atchy airspace opacities persist. Small bilateral pleural effusions are again noted. IMPRESSION: 1. No significant change in the interstitial thickening and patchy bilateral airspace opacities. This could represent pulmonary edema and/or a pneumonia. 2. Small bilateral pleural effusions again noted. ACT 112: Negative or not required by law. Electronically signed by: Adal Aranda M.D. 04/30/2024 11:38 AM
--- NOTE | 2024-04-30 12:54 | Cardiology Progress Note ---
Date of Service April 30, 2024 Assessment & Plan (1) Acute on chronic diastolic CHF (congestive heart failure): (2) Pleural effusion: (3) Acute hypoxemic respiratory failure: (4) Atrial fibrillation with slow ventricular response: Plan Complex 78-year-old male with multiple hospitalizations and outpatient evaluations over the past year. Persistent issues of atrial fibrillation, bilateral pleural effusions and hypoventilation Hospitalized with symptoms of hypoxic respiratory failure, increased right pleural effusion and part aggravated by transient discontinuation of diuretic dosing due to C. difficile colitis. Patient initially responded to IV diuretics and transition to oral on 04/27/2024 Patient has had persistent oxygen requirements despite improvement Today noted during physical therapy to have hypoxia with minimal exertion superimposed on baseline resting hypoxia Cardiology reconsulted to evaluate Chest x-ray reveals small lung volumes with atelectasis and compression, small bilateral pleural effusions with mild increased interstitial markings but unc hanged by my assessment Weight has increased 2 to 3 kg over the past 3 days Impression: Multifactorial hypoxia Recommendations: Will increase furosemide with single dose of IV furosemide today 40 mg. Past hyperkalemia and renal insufficiency limits the use of spironolactone though may reconsider. Reduce metoprolol succinate to 12.5 mg/day to allow slightly higher heart rate Given bradycardia, slow response to diuretic will check thyroid function testing Prior chest x-rays in past admissions demonstrate similar low lung volumes, small effusion. Consider incentive spirometry, bronchodilators if indicated Admission and Anticipated Discharge Date Admission Date: April 25, 2024 Subjective Contacted by hospitalist service to reevaluate patient due to persistent hypoxia increased with exertion Patient seen and examined personally. Inpatient and outpatient records reviewed Patient denies any current complaints. Not aware of a sense of dyspnea but wearing oxime mask at 3 L nasal cannula. Mildly productive cough No chest pains no tachypalpitations no syncope. Chronic lower extremity edema. Chart review reveals 2.2 kg weight gain over the past 3 days Telemetry persistent atrial fibrillation with slow ventricular response rate Review of Systems Review of Systems: All systems reviewed & are unremarkable except as noted in Subjective Physical Exam Constitutional: + ill appearing, + obese and + frail ayesha earing; no acute distress Neck: trachea midline Respiratory: normal respiratory effort; no respiratory distress, no labored breathing and no cough Auscultation: + diminished lung sounds; no crackles, no rales and no rhonchi Cardiovascular: Rate/Rhythm: + bradycardic and + irregularly irregular Heart Sounds: normal S1 and normal S2; no murmur Vessels: dorsalis pedis pulses present; no JVD Extremities: + edema (Chronic stasis edema to the knees) Gastrointestinal (Abdomen): normal bowel sounds, soft, nontender, no hepatos plenomegaly Psychiatric: Orientation: alert and oriented x 3 Affect: euthymic affect Results & Data Vital Signs (Past 12 Hours) Vital Signs Temp Pulse Pulse Resp BP Pulse Ox O2 Del Method 04/30/24 11:00 36.6 C 62 19 110/61 92 Oxymask 04/30/24 08:05 59 L 04/30/24 08:00 Oxymask 04/30/24 07:02 36.7 C 62 19 119/67 91 Oxymask 04/30/24 05:02 85 L Oxymask 04/30/24 02:30 36.6 C 71 20 125/65 97 Oxymask O2 Flow Rate 04/30/24 11:00 3.0 04/30/24 08:05 04/30/24 08:00 5 04/30/24 07:02 5.0 04/30/24 05:02 2 04/30/24 02:30 Laboratory Results Laboratory Results - last 24 hr 04/29/24 04/30/24 Unknown 05:45 WBC 6.74 RBC 3.17 L Hgb 8.6 L Hct 27.9 L MCV 88.0 MCH 27.1 MCHC 30.8 L RDW Std Deviation 53.6 H RDW Coeff of Andreea 16.4 H Plt Count 220 MPV 9.3 L Sodium 143 Potassium 4.2 Chloride 104 Carbon Dioxide 34 H Anion Gap 5 BUN 38 H Creatinine 1.23 Est Cr Clr Drug Dosing 67.7 Est GFR ( Amer) 65.2 Est GFR (Non-Af Amer) 56.3 BUN/Creatinine Ratio 30.9 H Glucose 91 Calcium 9.1 Phosphorus 3.7 Magnesium 1.9 Stool Occult Bld Scrn Negative
[2024-04-30] MEDS: FUROSEMIDE 40 MG/4 ML VIAL IV ONE (13:00)
--- NOTE | 2024-04-30 14:34 | Hospitalist Progress Note ---
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 Garcia who presents to ED 2/2 worsening SOB over the last 3-4 days. Acute hypoxic respiratory failure Acute on chronic decompensated diastolic CHF Pulmonary Edema Hypoxic, requiring hi gali, refusing bipap, full code Chest xray noting pleural effusions, pulm edema CT chest noting mod-large layering pleural effusions BNP 208 Echo with EF 60-65%, mild LVH, LA severely dilated, RV mild dilation, RV systolic function mildly decreased, mild MR, mod TR, elevated pulm HTN treated with IV Lasix 40mg BID daily weights, I and O Pt refusing bipap, was on highflo, on NC after thoracentesis. Currently on oxymask Pulmonology consulted for layering pleural effusions, appreciate recs -s/p R thoracentesis on 04/27, removal of ~800ml Cardiology consulted appreciate recs -transitioned to po lasix 40mg -resume warfarin 04/30- cardiology re-consulted once more as pt reportedly requiring 7L by oxymask with PT. IV Lasix 40 mg one dose, decreased amlodipine dose to 5mg and decreased toprol dose. CLAUDY Cr elevated to 1.4 on 04/27 Likely in setting of diuresis Was transitioned to po by cardiology Avoid nephrotoxic agents Continue to monitor Supratherapeutic INR PAF held warfarin, was given 2.5mg vit K, pt reported some blood in sputum continue metoprolol, tele monitoring INR down to 1.6 for needed thoracentesis Warfarin re-started post procedure Follow INR Iron Deficiency Anemia Hgb 9.4 to 8.8 anemia panel noting iron def anemia s/p IV Venofer on 04/26 Continue to monitor HTN: chronic, stable - pt on amlodipine, lisinopril HLD: chronic, stable - continue statin Hx of SCC of L parotid s/p resection, radiation, wound dehiscence and eventual reconstruction, 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 Denied acute concerns, states that breathing has improved. However requiring 7L still when up and working with PT Review of Systems Review of Systems: All systems reviewed & are unremarkable except as noted in Subjective Physical Exam Physical Exam: General: Alert, oriented. Resting comfortably Psych: Appropriate mood and affect Neuro: No gross deficits while sitting in bed HEENT: Left ear and side of face with post surgical changes CV: Irregular Resp: Breath sounds decreased bilaterally, no increased effort of breathing. Abdomen: Soft, nontender Extremities: edema in lower extremities bilaterally. Results & Data Results & Data Vital Signs (Past 12 Hours) Vital Signs Temp Pulse Pulse Resp BP Pulse Ox O2 Del Method 04/30/24 14:09 54 L 04/30/24 11:00 36.6 C 62 19 110/61 92 Oxymask 04/30/24 08:05 59 L 04/30/24 08:00 Oxymask 04/30/24 07:02 36.7 C 62 19 119/67 91 Oxymask 04/30/24 05:02 85 L Oxymask O2 Flow Rate 04/30/24 14:09 04/30/24 11:00 3.0 04/30/24 08:05 04/30/24 08:00 5 04/30/24 07:02 5.0 04/30/24 05:02 2
[2024-04-30 18:21] LABS: INR 2.9 (0.9-1.1); Prothrombin Time 28.8 Seconds (9.0-12.0)
[2024-05-01 05:53] LABS: Hematocrit (blood only) 27.8 % (42.0-52.0); Hemoglobin 8.7 g/dl (14.0-18.0); Mean Corpuscular Hemoglobin 27.4 pg (25.0-34.0); Mean Corpuscular Hgb Conc 31.3 g/dL (32.0-36.0); Mean Corpuscular Volume 87.4 fL (80.0-100.0); Mean Platelet Volume 9.3 fL (9.4-12.4); Platelet Count 227 K/uL (130-400); RDW Coefficient of Variation 16.3 % (11.5-14.5); RDW Standard Deviation 52.4 fL (36.4-46.3); Red Blood Count 3.18 M/uL (4.70-6.10); White Blood Count 6.35 K/ul (4.8-10.8)
[2024-05-01 06:06] LABS: BUN Creatinine Ratio 32.2 (10-20); Calcium 9.4 mg/dl (8.6-10.3); Creatinine Clr Calc Pharmacy 72.3 ml/min; Est GFR (African American) 70.7 ml/min; Magnesium 1.8 mg/dl (1.7-2.4); Phosphorus 3.8 mg/dl (2.5-4.9); Potassium 4.2 mmol/L (3.5-5.1)
[2024-05-01 06:17] LABS: Prothrombin Time 29.5 Seconds (9.0-12.0)
[2024-05-01] MEDS: amLODIPine BESYLATE 5 MG TAB PO SCH (08:49)
[2024-05-01] MEDS: METOPROLOL SUCC 25MG EXT REL TAB PO SCH (08:50)
--- NOTE | 2024-05-01 11:05 | Cardiology Progress Note ---
Date of Service May 01, 2024 Assessment & Plan (1) Acute on chronic diastolic CHF (congestive heart failure): (2) Pleural effusion: (3) Acute hypoxemic respiratory failure: (4) Atrial fibrillation with slow ventricular response: Plan Complex 78-year-old male with multiple hospitalizations and outpatient evaluations over the past year. Persistent issues of atrial fibrillation, bilateral pleural effusions and hypoventilation Hospitalized with symptoms of hypoxic respiratory failure, increased right pleural effusion and part aggravated by transient discontinuation of diuretic dosing due to C. difficile colitis. Patient initially responded to IV diuretics and transition to oral on 04/27/2024 Patient has had persistent oxygen requirements despite improvement Today noted during physical therapy to have hypoxia with minimal exertion superimposed on baseline resting hypoxia Cardiology reconsulted to evaluate Chest x-ray reveals small lung volumes with atelectasis and compression, small bilateral pleural effusions with mild increased interstitial markings but unc hanged by my assessment Weight has increased 2 to 3 kg over the past 3 days Impression: Multifactorial hypoxia Recommendations: Will increase furosemide with single dose of IV furosemide today 40 mg. Past hyperkalemia and renal insufficiency limits the use of spironolactone though may reconsider. Reduce metoprolol succinate to 12.5 mg/day to allow slightly higher heart rate Given bradycardia, slow response to diuretic will check thyroid function testing Prior chest x-rays in past admissions demonstrate similar low lung volumes, small effusion. Consider incentive spirometry, bronchodilators if indicated 05/01/2024 Clinically improved but with persistent oxygen demands. X-rays with small bilateral pleural effusions and small lung bean with atelectatic changes. Findings are similar on prior multiple chest x-rays and various hospital and clinic visit Will give additional furosemide 60 mg IV today. Plan to switch to torsemide 20 mg daily in a.m. Brief run of nonsustained VT this morning continue reduced dose metoprolol add Mag-Ox 400 milligrams per day Admission and Anticipated Discharge Date Admission Date: April 25, 2024 Subjective Patient was seen and examined, chart, telemetry reviewed. Still with significant oxygen demands Has manifested diuresis and lower extremity edema has improved, minimally productive cough Patient denies dyspnea or cardiac complaint Physical Exam Constitutional: + ill appearing, + obese and + frail ayesha earing; no acute distress Neck: trachea midline Respiratory: normal respiratory effort; no respiratory distress, no labored breathing and no cough Auscultation: + diminished lung sounds; no crackles, no rales and no rhonchi Cardiovascular: Rate/Rhythm: + bradycardic and + irregularly irregular Heart Sounds: normal S1 and normal S2; no murmur Vessels: dorsalis pedis pulses present; no JVD Extremities: + edema (Chronic stasis edema to the knees) Gastrointestinal (Abdomen): normal bowel sounds, soft, nontender, no hepatosplenomegaly Psychiatric: Orientation: alert and oriented x 3 Affect: euthymic affect Results & Data Vital Signs (Past 12 Hours) Vital Signs Temp Pulse Pulse Resp BP BP Pulse Ox 05/01/24 11:01 37.5 C 69 20 133/72 99 05/01/24 08:00 55 L 05/01/24 07:03 36.6 C 65 18 138/57 L 91 05/01/24 02:36 36.4 C L 54 L 18 128/64 93 O2 Del Method O2 Flow Rate 05/01/24 11:01 Oxymask 4 05/01/24 08:00 05/01/24 07:03 Oxymask 5 05/01/24 02:36 Oxymask 5 Laboratory Results Laboratory Results - last 24 hr 04/30/24 04/30/24 05/01/24 05:45 17:27 05:18 WBC 6.35 RBC 3.18 L Hgb 8.7 L Hct 27.8 L MCV 87.4 MCH 27.4 MCHC 31.3 L RDW Std Deviation 52.4 H RDW Coeff of Andreea 16.3 H Plt Count 227 MPV 9.3 L PT 28.8 H 29.5 H INR 2.9 H 3.0 H Sodium 142 Potassium 4.2 Chloride 102 Carbon Dioxide 36 H Anion Gap 4 BUN 37 H Creatinine 1.15 Est Cr Clr Drug Dosing 72.3 Est GFR ( Amer) 70.7 Est GFR (Non-Af Amer) 61.0 BUN/Creatinine Ratio 32.2 H Glucose 110 H Calcium 9.4 Phosphorus 3.8 Magnesium 1.8 TSH 4.310
[2024-05-01] MEDS: FUROSEMIDE 40 MG/4 ML VIAL IV ONE (12:42)
[2024-05-01] MEDS: MAGNESIUM OXIDE 400 MG TAB PO SCH (13:16)
--- NOTE | 2024-05-01 18:37 | Hospitalist Progress Note ---
Date of Service May 01, 2024 Assessment & Plan (1) Acute hypoxemic respiratory failure: (2) Acute on chronic diastolic CHF (congestive heart failure): (3) Supratherapeutic INR: (4) PAF (paroxysmal atrial fibrillation): (5) CAD (coronary artery disease): (6) Squamous cell carcinoma of parotid: Plan Mr. 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 Garcia who presents to ED 2/2 worsening SO Patient started on IV lasix and s/p thoracentesis. Patient now on oxymask 5L at 92 #Acute hypoxic respiratory failure #Acute on chronic decompensated diastolic CHF #Pulmonary Edema Hypoxic, requiring hi gali, refusing bipap, full code Chest xray noting pleural effusions, pulm edema CT chest noting mod-large layering pleural effusions BNP 208 Echo with EF 60-65%, mild LVH, LA severely dilated, RV mild dilation, RV systolic function mildly decreased, mild MR, mod TR, elevated pulm HTN treated with IV Lasix 40mg BID daily weights, I and O Pt refusing bipap, was on highflo, on NC after thoracentesis. Currently on oxymask Pulmonology consulted for layering pleural effusions, appreciate recs -s/p R thoracentesis on 04/27, removal of ~800ml Cardiology consulted appreciate recs -transitioned to po torsemide 20mg -continue warfarin -continue amlodpine 5mg daily and toprol dosing #CLAUDY resolved Cr elevated to 1.4 on 04/27 Likely in setting of diuresis Was transitioned to po by cardiology Avoid nephrotoxic agents Continue to monitor #Supratherapeutic INR #PAF held warfarin, was given 2.5mg vit K, pt reported some blood in sputum continue metoprolol, tele monitoring INR down to 1.6 for needed thoracentesis Warfarin re-started post procedure Follow INR #Iron Deficiency Anemia Hgb 9.4 to 8.8 anemia panel noting iron def anemia s/p IV Venofer on 04/26 Continue to monitor #HTN: chronic, stable - pt on amlodipine, lisinopril #HLD: chronic, stable - continue statin #Hx of SCC of L parotid s/p resection, radiation, wound dehiscence and eventual reconstruction, 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 s/p completion of IV antibiotics 02/2024 #Hx of Cdiff - 2 epsides, last tx 04/04 DVT ppx: warfarin FULL CODE PCP: Mely Dispo: pt/ot for recs once medically stable Admission and Anticipated Discharge Date Admission Date: April 25, 2024 Subjective NAEO reports feeling "just fine" denies sob or other acute concerns Physical Exam Constitutional: WD/WN, vitals as above Respiratory: normal respiratory effort, lungs clear to auscultation Cardiovascular: RRR, no murmur, no edema Results & Data Results & Data Vital Signs (Past 12 Hours) Vital Signs Temp Pulse Pulse Resp BP BP Pulse Ox 05/01/24 16:07 36.5 C 66 19 111/57 L 92 05/01/24 15:28 100 05/01/24 11:01 37.5 C 69 20 133/72 99 05/01/24 08:00 05/01/24 08:00 55 L 05/01/24 07:03 36.6 C 65 18 138/57 L 91 O2 Del Method O2 Flow Rate 05/01/24 16:07 Oxymask 5 05/01/24 15:28 05/01/24 11:01 Oxymask 4 05/01/24 08:00 Oxymask 5 05/01/24 08:00 05/01/24 07:03 Oxymask 5 Laboratory Results Short CBC 05/01/24 Range/Units 05:18 WBC 6.35 (4.8-10.8) K/ul Hgb 8.7 L (14.0-18.0) g/dl Hct 27.8 L (42.0-52.0) % Plt Count 227 (130-400) K/uL BMP 05/01/24 05:18 Sodium 142 Potassium 4.2 Chloride 102 Carbon Dioxide 36 H BUN 37 H Creatinine 1.15 Glucose 110 H Calcium 9.4 Medications Administered Home Medications Medication Instructions Recorded Confirmed Last Taken amlodipine 10 mg tablet 10 mg PO DAILY 04/25/24 04/25/24 Unknown atorvastatin 20 mg tablet 20 mg PO DAILY 04/25/24 04/25/24 Unknown ergocalciferol (vitamin D2) 1,250 1,250 mcg PO MO 04/25/24 04/25/24 Unknown mcg (50,000 unit) capsule (Vitamin D2) lisinopril 10 mg tablet 10 mg PO DAILY 04/25/24 04/25/24 Unknown metoprolol succinate 25 mg 25 mg PO DAILY 04/25/24 04/25/24 Unknown tablet,extended release 24 hr omeprazole 20 mg tablet,delayed 20 mg PO DAILY 04/25/24 04/25/24 Unknown release warfarin 5 mg tablet 5 mg PO SUTUTHSA 04/25/24 04/25/24 Unknown warfarin 5 mg tablet 7.5 mg PO MOWEFR 04/25/24 04/25/24 Unknown Active Medications Generic Name Dose Route Start Last Admin Trade Name Freq PRN Reason Stop Dose Admin Acetaminophen 650 mg 04/25/24 20:50 04/26/24 08:16 Acetaminophen 325 Mg Tab PO 05/25/24 20:49 650 mg Q4H PRN Administration Pain or Fever Amlodipine Besylate 5 mg 05/01/24 09:00 05/01/24 08:49 Amlodipine Besylate 5 Mg Tab PO 05/31/24 08:59 5 mg DAILY FRANCISCO Administration Atorvastatin Calcium 20 mg 04/26/24 09:00 05/01/24 08:49 Atorvastatin 20 Mg Tab PO 05/26/24 08:59 20 mg DAILY FRANCISCO Administration Benzonatate 100 mg 04/27/24 00:03 04/27/24 00:08 Benzonatate 100 Mg Capsule PO 05/27/24 00:02 100 mg TID PRN Administration Cough Lisinopril 10 mg 04/26/24 09:00 05/01/24 08:50 Lisinopril 10 Mg Tab PO 05/26/24 08:59 10 mg DAILY FRANCISCO Administration Magnesium Oxide 400 mg 05/01/24 11:30 05/01/24 13:16 Magnesium Oxide 400 Mg Tab PO 05/31/24 11:29 400 mg QAM FRANCISCO Administration Metoprolol Succinate 12.5 mg 05/01/24 09:00 05/01/24 08:50 Metoprolol Succ 25mg Ext Rel Tab PO 05/31/24 08:59 12.5 mg DAILY FRANCISCO Administration Pantoprazole Sodium 40 mg 04/26/24 09:00 05/01/24 08:50 Pantoprazole 40 Mg Tab PO 05/26/24 08:59 40 mg DAILY FRANCISCO Administration Polyethylene Glycol 17 gm 04/25/24 20:50 04/29/24 08:41 Polyethylene (Miralax) 17 Gm Pack PO 05/25/24 20:49 17 gm DAILY PRN Administration Constipation Warfarin Sodium 2 mg 04/28/24 16:00 05/01/24 16:16 Warfarin Sod 2 Mg Tab PO 05/28/24 15:59 2 mg DAILY@1600 FRANCISCO Administration
[2024-05-02 07:03] LABS: Hematocrit (blood only) 28.2 % (42.0-52.0); Hemoglobin 8.8 g/dl (14.0-18.0); Mean Corpuscular Hemoglobin 27.2 pg (25.0-34.0); Mean Corpuscular Hgb Conc 31.2 g/dL (32.0-36.0); Mean Platelet Volume 9.5 fL (9.4-12.4); Platelet Count 213 K/uL (130-400); RDW Coefficient of Variation 16.2 % (11.5-14.5); RDW Standard Deviation 51.8 fL (36.4-46.3); Red Blood Count 3.24 M/uL (4.70-6.10); White Blood Count 6.08 K/ul (4.8-10.8)
[2024-05-02 07:57] LABS: Calcium 9.3 mg/dl (8.6-10.3); Creatinine Clr Calc Pharmacy 71.3 ml/min; Est GFR (Non-African American) 60.4 ml/min; Magnesium 1.8 mg/dl (1.7-2.4); Phosphorus 3.6 mg/dl (2.5-4.9); Potassium 4.3 mmol/L (3.5-5.1)
[2024-05-02 07:59] LABS: INR 2.9 (0.9-1.1); Prothrombin Time 28.7 Seconds (9.0-12.0)
[2024-05-02] MEDS: TORSEMIDE 20 MG TAB PO SCH (08:32)
--- NOTE | 2024-05-02 10:44 | Cardiology Progress Note ---
Date of Service May 02, 2024 Assessment & Plan (1) Acute on chronic diastolic CHF (congestive heart failure): (2) Pleural effusion: (3) Acute hypoxemic respiratory failure: (4) Atrial fibrillation with slow ventricular response: Plan Complex 78-year-old male with multiple hospitalizations and outpatient evaluations over the past year. Persistent issues of atrial fibrillation, bilateral pleural effusions and hypoventilation Hospitalized with symptoms of hypoxic respiratory failure, increased right pleural effusion and part aggravated by transient discontinuation of diuretic dosing due to C. difficile colitis. Patient initially responded to IV diuretics and transition to oral on 04/27/2024 Patient has had persistent oxygen requirements despite improvement Today noted during physical therapy to have hypoxia with minimal exertion superimposed on baseline resting hypoxia Cardiology reconsulted to evaluate Chest x-ray reveals small lung volumes with atelectasis and compression, small bilateral pleural effusions with mild increased interstitial markings but unc hanged by my assessment Weight has increased 2 to 3 kg over the past 3 days Impression: Multifactorial hypoxia Recommendations: Will increase furosemide with single dose of IV furosemide today 40 mg. Past hyperkalemia and renal insufficiency limits the use of spironolactone though may reconsider. Reduce metoprolol succinate to 12.5 mg/day to allow slightly higher heart rate Given bradycardia, slow response to diuretic will check thyroid function testing Prior chest x-rays in past admissions demonstrate similar low lung volumes, small effusion. Consider incentive spirometry, bronchodilators if indicated 05/01/2024 Clinically improved but with persistent oxygen demands. X-rays with small bilateral pleural effusions and small lung bean with atelectatic changes. Findings are similar on prior multiple chest x-rays and various hospital and clinic visit Will give additional furosemide 60 mg IV today. Plan to switch to torsemide 20 mg daily in a.m. Brief run of nonsustained VT this morning continue reduced dose metoprolol add Mag-Ox 400 milligrams per day 05/02/2024 Impression: 1. Multifactorial hypoxia 2. Persistent atrial fibrillation 3. Heart failure with preserved ejection fraction, biatrial enlargement and elevated pulmonary pressures: Plan: Patient responding to IV diuretics will give an additional 60 mg IV furosemide today continue torsemide as ordered, reduced amlodipine and metoprolol succinate. Aggressive pulmonary toilet Admission and Anticipated Discharge Date Admission Date: April 25, 2024 Subjective Patient seen and personally examined. No further arrhythmias on telemetry Has still manifested once again significant diuresis. Leg edema much improved but still with significant oxygen demands No chest pain or discomfort no dizziness or lightheadedness. Slept well last night in bed Review of Systems Review of Systems: All systems reviewed & are unremarkable except as noted in Subjective Physical Exam Constitutional: + obese; no acute distress Neck: trachea midline Respiratory: normal respiratory effort; no respiratory distress, no labored breathing and no cough Auscultation: + diminished lung sounds; no crackles, no rales and no rhonchi Cardiovascular: Rate/Rhythm: + irregularly irregular Heart Sounds: normal S1 and normal S2; no murmur Vessels: dorsalis pedis pulses present; no JVD Extremities: + edema (Chronic stasis edema to the knees, improved) Gastrointestinal (Abdomen): normal bowel sounds, soft, nontender, no hepatosplenomegaly Psychiatric: Orientation: alert and oriented x 3 Affect: euthymic affect Results & Data Vital Signs (Past 12 Hours) Vital Signs Temp Pulse Resp BP Pulse Ox O2 Del Method O2 Flow Rate 05/02/24 08:11 36.5 C 62 20 126/66 96 Oxymask 7 05/02/24 03:05 36.3 C L 55 L 18 143/70 H 98 Oxymask 5 Laboratory Results Laboratory Results - last 24 hr 05/02/24 06:18 WBC 6.08 RBC 3.24 L Hgb 8.8 L Hct 28.2 L MCV 87.0 MCH 27.2 MCHC 31.2 L RDW Std Deviation 51.8 H RDW Coeff of Andreea 16.2 H Plt Count 213 MPV 9.5 PT 28.7 H INR 2.9 H Sodium 142 Potassium 4.3 Chloride 101 Carbon Dioxide 37 H Anion Gap 4 BUN 36 H Creatinine 1.16 Est Cr Clr Drug Dosing 71.3 Est GFR ( Amer) 70.0 Est GFR (Non-Af Amer) 60.4 BUN/Creatinine Ratio 31.0 H Glucose 91 Calcium 9.3 Phosphorus 3.6 Magnesium 1.8
--- NOTE | 2024-05-02 11:39 | Hospitalist Progress Note ---
Date of Service May 02, 2024 Assessment & Plan (1) Acute hypoxemic respiratory failure: (2) Acute on chronic diastolic CHF (congestive heart failure): (3) Supratherapeutic INR: (4) PAF (paroxysmal atrial fibrillation): (5) CAD (coronary artery disease): (6) Squamous cell carcinoma of parotid: Plan Mr. 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 Garcia who presents to ED 2/2 worsening SO Patient started on IV lasix and s/p thoracentesis. Patient now on oxymask 5L with higher saturations, but notes to to desaturate per nurses. Cardiology following and continuing po torsemide with IV lasix Patient reports continued improvements. Cardiology working to improve oxygen requirement with IV lasix, noting near resolution on BLE edema #Acute hypoxic respiratory failure #Acute on chronic decompensated diastolic CHF #Pulmonary Edema Hypoxic, requiring hi gali, refusing bipap, full code Chest xray noting pleural effusions, pulm edema CT chest noting mod-large layering pleural effusions BNP 208 Echo with EF 60-65%, mild LVH, LA severely dilated, RV mild dilation, RV systolic function mildly decreased, mild MR, mod TR, elevated pulm HTN treated with IV Lasix 40mg BID daily weights, I and O Pt refusing bipap, was on highflo, on NC after thoracentesis. Currently on oxymask Pulmonology consulted for layering pleural effusions, appreciate recs -s/p R thoracentesis on 04/27, removal of ~800ml Cardiology consulted appreciate recs -transitioned to po torsemide 20mg -continue warfarin -continue amlodipine 5mg daily and toprol dosing s/p IV lasix 60mg this am #CLAUDY resolved Cr elevated to 1.4 on 04/27 Likely in setting of diuresis Was transitioned to po by cardiology Avoid nephrotoxic agents Continue to monitor #Supratherapeutic INR *resolved #PAF held warfarin, was given 2.5mg vit K, pt reported some blood in sputum continue metoprolol, tele monitoring INR down to 1.6 for needed thoracentesis Warfarin re-started post procedure Follow INR #Iron Deficiency Anemia Hgb 9.4 to 8.8 anemia panel noting iron def anemia s/p IV Venofer on 04/26 Continue to monitor #HTN: chronic, stable - pt on amlodipine, lisinopril #HLD: chronic, stable - continue statin #Hx of SCC of L parotid s/p resection, radiation, wound dehiscence and eventual reconstruction, 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 s/p completion of IV antibiotics 02/2024 #Hx of Cdiff - 2 epsides, last tx 04/04 DVT ppx: warfarin FULL CODE PCP: Mely Dispo: rehab pending auth Admission and Anticipated Discharge Date Admission Date: April 25, 2024 Subjective NAEO Patient reports walking and feeling a little stronger, he denies any SOB or TILLEY that he can recall He states he continued to feel better everyday and eager to transition back to his "home" Diuersising well Physical Exam Constitutional: WD/WN, vitals as above Respiratory: normal respiratory effort, lungs clear to auscultation Cardiovascular: irregularly irregular Skin: venous stasis/dusky discoloration, minimal edema noted Results & Data Results & Data Vital Signs (Past 12 Hours) Vital Signs Temp Pulse Resp BP Pulse Ox O2 Del Method O2 Flow Rate 05/02/24 11:37 36.6 C 81 18 108/63 99 Oxymask 5 05/02/24 11:11 92 5 05/02/24 10:46 Oxymask 5 05/02/24 08:11 36.5 C 62 20 126/66 96 Oxymask 7 05/02/24 03:05 36.3 C L 55 L 18 143/70 H 98 Oxymask 5 Laboratory Results Short CBC 05/02/24 Range/Units 06:18 WBC 6.08 (4.8-10.8) K/ul Hgb 8.8 L (14.0-18.0) g/dl Hct 28.2 L (42.0-52.0) % Plt Count 213 (130-400) K/uL BMP 05/02/24 06:18 Sodium 142 Potassium 4.3 Chloride 101 Carbon Dioxide 37 H BUN 36 H Creatinine 1.16 Glucose 91 Calcium 9.3 Medications Administered Home Medications Medication Instructions Recorded Confirmed Last Taken amlodipine 10 mg tablet 10 mg PO DAILY 04/25/24 04/25/24 Unknown atorvastatin 20 mg tablet 20 mg PO DAILY 04/25/24 04/25/24 Unknown ergocalciferol (vitamin D2) 1,250 1,250 mcg PO MO 04/25/24 04/25/24 Unknown mcg (50,000 unit) capsule (Vitamin D2) lisinopril 10 mg tablet 10 mg PO DAILY 04/25/24 04/25/24 Unknown metoprolol succinate 25 mg 25 mg PO DAILY 04/25/24 04/25/24 Unknown tablet,extended release 24 hr omeprazole 20 mg tablet,delayed 20 mg PO DAILY 04/25/24 04/25/24 Unknown release warfarin 5 mg tablet 5 mg PO SUTUTHSA 04/25/24 04/25/24 Unknown warfarin 5 mg tablet 7.5 mg PO MOWEFR 04/25/24 04/25/24 Unknown Active Medications Generic Name Dose Route Start Last Admin Trade Name Freq PRN Reason Stop Dose Admin Acetaminophen 650 mg 04/25/24 20:50 04/26/24 08:16 Acetaminophen 325 Mg Tab PO 05/25/24 20:49 650 mg Q4H PRN Administration Pain or Fever Amlodipine Besylate 5 mg 05/01/24 09:00 05/02/24 08:34 Amlodipine Besylate 5 Mg Tab PO 05/31/24 08:59 5 mg DAILY FRANCISCO Administration Atorvastatin Calcium 20 mg 04/26/24 09:00 05/02/24 08:34 Atorvastatin 20 Mg Tab PO 05/26/24 08:59 20 mg DAILY FRANCISCO Administration Benzonatate 100 mg 04/27/24 00:03 04/27/24 00:08 Benzonatate 100 Mg Capsule PO 05/27/24 00:02 100 mg TID PRN Administration Cough Lisinopril 10 mg 04/26/24 09:00 05/02/24 08:34 Lisinopril 10 Mg Tab PO 05/26/24 08:59 10 mg DAILY FRANCISCO Administration Magnesium Oxide 400 mg 05/01/24 11:30 05/02/24 08:32 Magnesium Oxide 400 Mg Tab PO 05/31/24 11:29 400 mg QAM FRANCISCO Administration Metoprolol Succinate 12.5 mg 05/01/24 09:00 05/02/24 08:33 Metoprolol Succ 25mg Ext Rel Tab PO 05/31/24 08:59 12.5 mg DAILY FRANCISCO Administration Pantoprazole Sodium 40 mg 04/26/24 09:00 05/02/24 08:33 Pantoprazole 40 Mg Tab PO 05/26/24 08:59 40 mg DAILY FRANCISCO Administration Polyethylene Glycol 17 gm 04/25/24 20:50 04/29/24 08:41 Polyethylene (Miralax) 17 Gm Pack PO 05/25/24 20:49 17 gm DAILY PRN Administration Constipation Torsemide 20 mg 05/02/24 09:00 05/02/24 08:32 Torsemide 20 Mg Tab PO 06/01/24 08:59 20 mg QAM FRANCISCO Administration Warfarin Sodium 2 mg 04/28/24 16:00 05/01/24 16:16 Warfarin Sod 2 Mg Tab PO 05/28/24 15:59 2 mg DAILY@1600 FRANCISCO Administration
[2024-05-02] MEDS: FUROSEMIDE 40 MG/4 ML VIAL IV ONE (11:45)
[2024-05-03 06:08] LABS: Hematocrit (blood only) 27.7 % (42.0-52.0); Hemoglobin 8.7 g/dl (14.0-18.0); Mean Corpuscular Hemoglobin 27.3 pg (25.0-34.0); Mean Corpuscular Hgb Conc 31.4 g/dL (32.0-36.0); Mean Corpuscular Volume 86.8 fL (80.0-100.0); Mean Platelet Volume 9.5 fL (9.4-12.4); Platelet Count 203 K/uL (130-400); RDW Coefficient of Variation 16.2 % (11.5-14.5); RDW Standard Deviation 51.2 fL (36.4-46.3); Red Blood Count 3.19 M/uL (4.70-6.10); White Blood Count 6.12 K/ul (4.8-10.8)
[2024-05-03 06:26] LABS: BUN Creatinine Ratio 29.2 (10-20); Calcium 9.4 mg/dl (8.6-10.3); Creatinine Clr Calc Pharmacy 68.6 ml/min; Est GFR (African American) 67.2 ml/min; Magnesium 1.7 mg/dl (1.7-2.4); Phosphorus 3.3 mg/dl (2.5-4.9); Potassium 4.2 mmol/L (3.5-5.1)
[2024-05-03 06:38] LABS: INR 2.7 (0.9-1.1); Prothrombin Time 26.6 Seconds (9.0-12.0)
[2024-05-03] MEDS: MAGNESIUM OXIDE 400 MG TAB PO SCH (07:48)
[2024-05-03 10:56] VITALS: RESP 16; TEMP 97.9; O2SAT 92
--- NOTE | 2024-05-03 12:47 | Cardiology Progress Note ---
Date of Service May 03, 2024 Assessment & Plan (1) Acute on chronic diastolic CHF (congestive heart failure): (2) Pleural effusion: (3) Acute hypoxemic respiratory failure: (4) Atrial fibrillation with slow ventricular response: Plan Complex 78-year-old male with multiple hospitalizations and outpatient evaluations over the past year. Persistent issues of atrial fibrillation, bilateral pleural effusions and hypoventilation Hospitalized with symptoms of hypoxic respiratory failure, increased right pleural effusion and part aggravated by transient discontinuation of diuretic dosing due to C. difficile colitis. Patient initially responded to IV diuretics and transition to oral on 04/27/2024 Patient has had persistent oxygen requirements despite improvement Today noted during physical therapy to have hypoxia with minimal exertion superimposed on baseline resting hypoxia Cardiology reconsulted to evaluate Chest x-ray reveals small lung volumes with atelectasis and compression, small bilateral pleural effusions with mild increased interstitial markings but unc hanged by my assessment Weight has increased 2 to 3 kg over the past 3 days Impression: Multifactorial hypoxia Recommendations: Will increase furosemide with single dose of IV furosemide today 40 mg. Past hyperkalemia and renal insufficiency limits the use of spironolactone though may reconsider. Reduce metoprolol succinate to 12.5 mg/day to allow slightly higher heart rate Given bradycardia, slow response to diuretic will check thyroid function testing Prior chest x-rays in past admissions demonstrate similar low lung volumes, small effusion. Consider incentive spirometry, bronchodilators if indicated 05/01/2024 Clinically improved but with persistent oxygen demands. X-rays with small bilateral pleural effusions and small lung bean with atelectatic changes. Findings are similar on prior multiple chest x-rays and various hospital and clinic visit Will give additional furosemide 60 mg IV today. Plan to switch to torsemide 20 mg daily in a.m. Brief run of nonsustained VT this morning continue reduced dose metoprolol add Mag-Ox 400 milligrams per day 05/02/2024 Impression: 1. Multifactorial hypoxia 2. Persistent atrial fibrillation 3. Heart failure with preserved ejection fraction, biatrial enlargement and elevated pulmonary pressures: Plan: Patient responding to IV diuretics will give an additional 60 mg IV furosemide today continue torsemide as ordered, reduced amlodipine and metoprolol succinate. Aggressive pulmonary toilet 05/03/2024 Clinically improved 1. Multifactorial hypoxia 2. Persistent atrial fibrillation 3. Heart failure with preserved ejection fraction, biatrial enlargement and elevated pulmonary pressures: Plan discharge today on changes in medications specifically amlodipine reduced to 5 mg/day, metoprolol succinate reduced to 12.5 mg/day, torsemide 20 mg daily CHF instructions with sodium and fluid restriction May consider addition of spironolactone low-dose in future. If blood pressure remains low would reduce amlodipine further Admission and Anticipated Discharge Date Admission Date: April 25, 2024 Subjective Patient seen and examined, chart, medications, telemetry reviewed. Feels improved oxygen demand substantially improved Lower extremity edema markedly improved Review of Systems Review of Systems: All systems reviewed & are unremarkable except as noted in Subjective Physical Exam Constitutional: + obese; no acute distress Neck: trachea midline Respiratory: normal respiratory effort; no respiratory distress, no labored breathing and no cough Auscultation: + diminished lung sounds; no crackles, no rales and no rhonchi Cardiovascular: Rate/Rhythm: + bradycardic and + irregularly irregular Heart Sounds: normal S1 and normal S2; no murmur Vessels: dorsalis pedis pulses present; no JVD Extremities: + edema (Chronic stasis edema to the knees, improved) Gastrointestinal (Abdomen): normal bowel sounds, soft, nontender, no hepatosplenomegaly Psychiatric: Orientation: alert and oriented x 3 Affect: euthymic affect Results & Data Vital Signs (Past 12 Hours) Vital Signs Temp Pulse Pulse Pulse Resp BP BP 05/03/24 10:54 36.6 C 69 16 107/63 05/03/24 08:00 05/03/24 07:34 36.5 C 65 18 137/63 05/03/24 07:00 63 05/03/24 02:36 36.6 C 68 18 144/65 H Pulse Ox O2 Del Method O2 Flow Rate 05/03/24 10:54 92 Oxymask 2 05/03/24 08:00 Oxymask 05/03/24 07:34 93 Oxymask 2 05/03/24 07:00 05/03/24 02:36 96 Oxymask 2 Laboratory Results Laboratory Results - last 24 hr 05/03/24 05:17 WBC 6.12 RBC 3.19 L Hgb 8.7 L Hct 27.7 L MCV 86.8 MCH 27.3 MCHC 31.4 L RDW Std Deviation 51.2 H RDW Coeff of [place]ree[place] 16.2 H Plt Count 203 MPV 9.5 PT 26.6 H INR 2.7 H Sodium 141 Potassium 4.2 Chloride 98 Carbon Dioxide 40 H Anion Gap 3 BUN 35 H Creatinine 1.20 Est Cr Clr Drug Dosing 68.6 Est GFR ( Amer) 67.2 Est GFR (Non-Af Amer) 58.0 BUN/Creatinine Ratio 29.2 H Glucose 87 Calcium 9.4 Phosphorus 3.3 Magnesium 1.7
--- NOTE | 2024-05-03 13:01 | Discharge Summary ---
Discharge Summary Date of Service May 03, 2024 Principal Dx & Hospital Course #1 = Principal Diagnosis (1) Acute hypoxemic respiratory failure: (2) Acute on chronic diastolic CHF (congestive heart failure): (3) Supratherapeutic INR: (4) PAF (paroxysmal atrial fibrillation): (5) CAD (coronary artery disease): (6) Squamous cell carcinoma of parotid: Plan Mr. 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 Garcia who presents to ED 2/2 worsening SO Patient started on IV lasix and s/p thoracentesis. Patient now on oxymask 5L with higher saturations, but notes to to desaturate per nurses. Cardiology following and continuing po torsemide with IV lasix Patient reports continued improvements. Cardiology working to improve oxygen requirement with IV lasix, noting near resolution on BLE edema. Patient continued to improve with IV diuresis. Cardiology finalized recommendations. Patient remained on 2L oxymask, breathing comfortably. Patient prefers oxymask given left ear procedure making it uncomfortable for NC fit. On day of discharge, patient denies any acute concerns, eating well, and feels eager to go to rehab. #Acute hypoxic respiratory failure #Acute on chronic decompensated diastolic CHF #Pulmonary Edema Hypoxic, requiring hi gali, refusing bipap, full code Chest xray noting pleural effusions, pulm edema CT chest noting mod-large layering pleural effusions BNP 208 Echo with EF 60-65%, mild LVH, LA severely dilated, RV mild dilation, RV systolic function mildly decreased, mild MR, mod TR, elevated pulm HTN treated with IV Lasix 40mg BID daily weights, I and O Pt refusing bipap, was on highflo, on NC after thoracentesis. Currently on oxymask Pulmonology consulted for layering pleural effusions, appreciate recs -s/p R thoracentesis on 04/27, removal of ~800ml Cardiology consulted appreciate recs -transitioned to po torsemide 20mg -continue warfarin at 2 mg daily -continue amlodipine 5mg daily and 12.5mg toprol dosing #CLAUDY resolved Cr elevated to 1.4 on 04/27 Likely in setting of diuresis Was transitioned to po by cardiology Avoid nephrotoxic agents Continue to monitor #Supratherapeutic INR *resolved #PAF held warfarin, was given 2.5mg vit K, pt reported some blood in sputum continue metoprolol, tele monitoring INR down to 1.6 for needed thoracentesis Warfarin re-started post procedure Follow IN #Iron Deficiency Anemia Hgb 9.4 to 8.8 anemia panel noting iron def anemia s/p IV Venofer on 04/26 Continue to monitor #HTN: chronic, stable - pt on amlodipine, lisinopril #HLD: chronic, stable - continue statin #Hx of SCC of L parotid s/p resection, radiation, wound dehiscence and eventual reconstruction, 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 s/p completion of IV antibiotics 02/2024 #Hx of Cdiff - 2 episodes, last tx 04/04 DVT ppx: warfarin Notes For Next Care Provider Patient on 2 L Oxymask due to left ear operation from prior operation, patient with historical low lung volumes will likely need some degree of O2 Medication Changes From Visit Toprol XL reduced 12.5mg from 25 mg daily Amlodipine from 10mg to 5mg Start torsemide 20mg daily Admission HPI Per Admitting Provider This is a 78-year-old male who has significant past medical history of CAD, PAF anticoagulated on warfarin, chronic diastolic CHF, HTN, HLD, mild intermittent asthma, 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 Garcia who presents to ED 2/2 worsening SOB over the last 3-4 days. Of significance has had a recent course of hospitalizations including he was recently hospitalized at [facility] on 01/23-01/27/24 for wound dehiscence of left auricular wound and Left Mastoid OM. He required PICC Placement and IV antibiotic therapy. He grew multiple organisms including bacteroids fragilis, MRSA. He completed course of IV Vanco. He since had been following with wound ca re in [place]. He was hospitalized in [place] on 02/14-02/20 for stroke work up. At that time he was transitioned to IV meropenem and dapto per nephro recommendations due to CLAUDY. He was then discharged to [facility]. Since that time he did have an episode of Cdiff. Pt reports worsening SOB over the last few days. He has it with exertion and at rest. He complains of orthopnea. He reports he use to be on lasix 40mg, but at some point he was told to quit taking in over the last month after being in an out of hospital/rehabs. He denies any f/c/s, chest pain, n/v/d, abd pain, change in bowel or urinary habits. He does have a cough and complains of occasional blood tinge sputum over the last 6 days. He reports his INR was high as an outpt and he was told to hold warfarin for the next few days. He recently got out of rehab and moved back to his apartment in personal care. In ED pt was hypoxic on room air in the 70s. CXR concerning for pulmonary edema. Pt refusing bipap and thefore placed on high flow nasal canal with adequate oxygenation. Lab work reveals h/h 9.4 and 30.6, INR 9.2, cr 1.36, BNP 208, negative UA and negative biofire. He was given 40mg IV lasix in ED Admission Exam Per Admitting Provider Physical Exam: Vitals signs as noted above General Appearance: Chronically appearing, moderately built and nourished, mild respiratory distress, elderly Head: normocephalic, Atraumatic, + left parotid gland postsurgical findings Eyes: normal inspection, EOMI Neck: supple, Trachea midline Respiratory/Chest: Decreased breath sounds, basal crackles, No accessory muscle use Cardiovascular: Irregularly irregular, No murmur Abdomen/GI:Soft, Non tender, Bowel sounds present Extremities/Musculoskeletal:normal inspection, 2+ B/L LE edema, chronic venous stasis changes Neurologic/Psych:AAOX3, grossly no focal neurological deficits Skin: normal color, warm Discharge Exam Constitutional WD/WN, vitals as above Respiratory normal respiratory effort, lungs clear to auscultation Cardiovascular RRR, no murmur, no edema Updated Medication List Medication Instructions Recorded Confirmed Type atorvastatin 20 mg tablet 20 mg PO DAILY 04/25/24 04/25/24 History ergocalciferol (vitamin D2) 1,250 1,250 mcg PO MO 04/25/24 04/25/24 History mcg (50,000 unit) capsule (Vitamin D2) lisinopril 10 mg tablet 10 mg PO DAILY 04/25/24 04/25/24 History omeprazole 20 mg tablet,delayed 20 mg PO DAILY 04/25/24 04/25/24 History release amlodipine 5 mg tablet (Norvasc) 5 mg PO DAILY 30 days #30 tabs 05/03/24 Rx benzonatate 100 mg capsule 100 mg PO TID PRN cough #90 caps 05/03/24 Rx magnesium oxide 400 mg (241.3 mg 400 mg PO BID #60 tabs 05/03/24 Rx magnesium) tablet metoprolol succinate 25 mg 12.5 mg (1/2 x 25 mg) PO DAILY 30 05/03/24 Rx tablet,extended release 24 hr days #15 tabs torsemide 20 mg tablet 20 mg PO QAM 30 days #30 tabs 05/03/24 Rx warfarin 2 mg tablet 2 mg PO DAILY@1600 30 days #30 tabs 05/03/24 Rx Hospital Stay Data Consultations 04/25/24 19:29 ED Decision to Admit Stat 04/25/24 20:50 Consult Cardiology Routine 04/26/24 14:19 Consult Pulmonology Routine Diagnostic Imagining Performed 04/26/24 10:00 CT chest diagnostic wo con Routine Pending Results Patient Have Any Pending Studies at Discharge: No Discharge Instructions Given to Patient (Per Discharging Provider) You were admitted for shortness of breath and found to be in heart failure. You underwent fluid removal off the lung with a procedure called thoracentesis as well as IV diuertic. You also had the following medication changes: -Discontinue lasix -Start torsemide 20mg daily -Reduced amlodipine from 10mg to 5mg -Reduced Metoprolol Succinate from 25mg to 12.5mg daily -Continue 2mg warfarin dosing daily Follow INR and adjust as appropriate Continue to wean of oxygen as able Total Time Total Time Spent Total Time Spent (In Minutes): 45
[2024-05-03 13:20] VITALS: BP 137/63; PULSE 65
== END 2024-05-03 13:55 | DRG 291 ==
LOC: ED 15:46 → 4W 19:42 → SUATTDRO 19:42 → 4W 20:39